=== PATIENT | female | born 1985 | race Caucasian/White ===

== ENCOUNTER 2019-09-01 07:51 | Outpatient (CLI) | payer OTHER, SELFPAY ==
[2019-09-01 13:14] LABS: Hematocrit 39.2 % (37.0-47.0); Hemoglobin 11.8 g/dL (12.0-15.0); Mean Corpuscular HGB Conc 30.1 g/dl (32-36); Mean Corpuscular Hemoglobin 23.9 pg (26-34); Mean Corpuscular Volume 79.5 fl (80-100); Mean Platelet Volume 11.8 fl (7.4-10.4); Platelet Count Result 203 k/mm3 (150-375); Red Blood Count 4.93 M/mm3 (4.2-5.4); Red Cell Distribution Width 14.8 % (11.5-14.5); White Blood Count 6.2 K/mm3 (4.5-10.0)
[2019-09-01 13:19] LABS: Add Urine Microscopic? YES; Appearance Urine Clear (Clear); Bacteria Urine Trace /hpf; Bilirubin Urine Negative (Negative); Blood Urine Negative (Negative); Color Urine Straw (Yellow); Glucose Urine UA 2+ mg/dL (Negative); Ketones Urine Trace mg/dL (Negative); Leukocyte Esterase Ur Negative LEU/UL (NEGATIVE); Nitrate Urine Negative (Negative); Protein Urine Negative (Negative); RBC Urine 0-2 /hpf (0-2); Specific Grav Ur 1.005 (1.001-1.035); Squamous Epithelial Cell Urine Few /hpf (Few); Urobilinogen Urine Negative mg/dL (<2.0); WBC Urine 0-3 /hpf (0-3)
[2019-09-01 13:24] LABS: Iron 30 ug/dL (37-170)
[2019-09-01 13:27] LABS: Alanine Aminotransferase 38 U/L (4-35); Albumin Level 4.2 g/dL (3.5-5.1); Alkaline Phosphatase 128 U/L (38-126); Aspartate Amino Transferase 54 U/L (14-36); Bilirubin,Total 0.4 mg/dL (0.2-1.3); Blood Urea Nitrogen 7 mg/dL (7-17); Calcium 9.5 mg/dL (8.4-10.2); Carbon Dioxide 23 mmol/L (22-30); Chloride 98 mmol/L (98-107); Estimated Glomerular Filt Rate > 60; Glucose 221 mg/dL (65-105); Potassium 3.9 mmol/L (3.4-5.0); Sodium 133 mmol/L (137-145)
[2019-09-01 13:32] LABS: Cholesterol 145 mg/dL (0-200); HDL Direct 70 mg/dL; Triglycerides 88 mg/dL (<150)
[2019-09-01 13:34] LABS: Percent Iron Saturation 6 % (20-50)
[2019-09-01 13:35] LABS: Hemoglobin A1C 10.7 % (<5.7)
[2019-09-01 13:43] LABS: LDL Cholesterol Direct 76 mg/dL
[2019-09-01 13:51] LABS: Microalbumin Urine Random < 6.0 mg/L (0-16.7)
[2019-09-01 14:01] LABS: Ferritin 9.12 ng/mL (6.24-137)
[2019-09-06 07:54] LABS: Glutamic acid decarboxylase AA >250 IU/mL (<5)
[2019-09-07 02:01] LABS: Islet Cell Antibody Screen NEGATIVE (NEGATIVE)
== END 2019-09-01 07:52 | disposition home or self-care (01) ==
LOC: ANHWCLAB 07:53
PROVIDERS: PCP Family Medicine; Visit Provider Internal Medicine Endocrinology, Diabetes & Metabolism
DX: E11.65 Type 2 diabetes mellitus with hyperglycemia (principal); E66.9 Obesity, unspecified; E11.40 Type 2 diabetes mellitus with diabetic neuropathy, unspecified
CPT/HCPCS: 36415; 80053; 80061; 81001; 82043; 82728; 83036; 83540; 83550; 84443; 84681; 85027; 86337; 86341

== ENCOUNTER 2019-09-08 08:20 | Outpatient (CLI) | payer OTHER, SELFPAY ==
[2019-09-08 13:44] LABS: Free T4 Free Thyroxine 0.93 ng/mL (0.78-2.19)
[2019-09-11 03:41] LABS: Thyroid Peroxidase Antibodies 1318 IU/mL (<9)
[2019-09-11 07:06] LABS: Triiodothyronine T3 Free 3.4 pg/mL (2.3-4.2)
== END 2019-09-08 08:21 | disposition home or self-care (01) ==
LOC: ANHWCLAB 08:23
PROVIDERS: PCP Family Medicine; Visit Provider Internal Medicine Endocrinology, Diabetes & Metabolism
DX: E04.9 Nontoxic goiter, unspecified (principal); E03.9 Hypothyroidism, unspecified
CPT/HCPCS: 36415; 84439; 84443; 84481; 86376

== ENCOUNTER 2019-09-20 09:33 | Emergency (ER) | payer OTHER, SELFPAY ==
--- NOTE | ~2019-09-20 | XR_ITS ---
EXAMINATION: XR chest 2V EXAM DATE: 09/20/2019 10:12 INDICATION: Dizziness and hypertension. TECHNIQUE: Frontal and lateral projections of the chest obtained and reviewed. Comparison is made to prior examination from 09/02/2016. FINDINGS: The lungs are clear. There are no pleural effusions. The cardiomediastinal silhouette is within normal limits. There is no pneumothorax suspected. The bones and soft tissues are unremarkab le. IMPRESSION: Normal chest x-ray exam. Reviewed, dictated and finalized at location A. MECHANIC IMPRESSION: Normal chest x-ray exam.
[2019-09-20 09:37] VITALS: BP 166/95; PULSE 82; RESP 18; TEMP 36.6; O2SAT 100
[2019-09-20 09:54] VITALS: BP 158/101; BP 162/104; BP 166/115; PULSE 72; PULSE 83; PULSE 87
--- NOTE | 2019-09-20 09:56 | ECG_ITS ---
Measurements Intervals [place] Rate: 70 P: 34 AL: 161 QRS: 18 QRSD: 94 T: 14 QT: 386 QTc: 417 Interpretive Statements SINUS RHYTHM NORMAL ECG Electronically Signed On 09-20-2019 11:38:36 TAKE UP SUPERVISOR by Josias Mcintosh D.O.
--- NOTE | 2019-09-20 10:12 | ED.DIZZY ---
HPI - Dizziness General Chief Complaint: Dizziness Stated Complaint: not feeling well Time Seen by Provider: 09/20/19 09:45 Source: patient Mode of arrival: ambulatory Limitations: no limitations History of Present Illness HPI Narrative: This is a 34 year old female that presents to the ER for episodes of lightheadedness. Reports since Wednesday she has been having episodes where she feels lightheaded, sweats and has palpitations. Reports she was recently diagnosed with DM and hypothyroidism. Reports she started her Levothyroxine last week. She has not been able to start her medication for DM. Denies fever, cold symptoms, chest pain, shortness of breath, abdominal pain, vomiting, or dysuria. Related Data Allergies Allergy/AdvReac Type Severity Reaction Status Date / Time No Known Allergies Allergy Verified 09/20/19 09:40 Review of Systems Review of Systems: Narrative: CONSTITUTIONAL: Denies fever EYES: Denies visual changes ENT: Denies rhinorrhea, congestion, sore throat, or otalgia. CARDIOVASCULAR: Reports palpitations. Denies chest pain, or edema. RESPIRATORY: Denies cough or dyspnea. GASTROINTESTINAL: Denies abdominal pain, nausea, vomiting GENITOURINARY: Denies dysuria or hematuria. SKIN: Denies rash or itching. NEUROLOGIC: Denies headache, numbness, or weakness. All systems reviewed & are unremarkable except as noted in HPI and below PMFSH Past Medical History Medical History (Updated 09/20/19 @ 12:11 by Tamiko Laurent PA-C) History of diabetes mellitus History of hypothyroidism Social History Social History (Updated 09/20/19 @ 10:18 by Tamiko Laurent PA-C) Smoking status: Never smoker Alcohol intake: current Substance use: never Gender identity (if verbalized by the patient): Female Exam Narrative: Exam Narrative: GENERAL: Well-appearing, well-nourished, and in no acute distress. HEAD: Normocephalic, atraumatic. EYES: PERRLA and EOMI. ENT: Nares clear, no rhinorrhea or epistaxis. Mucous membranes moist. Oropharynx without tonsillar hypertrophy exudate or other lesions. Bilateral TMs pearly alejandro non-bulging NECK: Supple. No adenopathy or masses. No carotid bruits or JVD CHEST: Clear to auscultation. No respiratory distress. No wheezes rales or rhonchi HEART: Regular rate and rhythm. No murmur heard. Normal peripheral pulses. ABDOMEN: Soft, nontender, nondistended, normal active bowel sounds. EXTREMITIES: Normal range of motion. No edema. SKIN: Warm, dry, no rash. NEURO: No focal deficits. Alert and oriented x3. CN II-XII grossly intact PSYCH: Normal mood and affect Course Vital Signs Vital signs: Vital Signs Temperature 97.9 F 09/20/19 09:37 Pulse Rate 82 09/20/19 09:37 Respiratory Rate 18 09/20/19 09:37 Blood Pressure 166/95 H 09/20/19 09:37 Pulse Oximetry 100 09/20/19 09:37 Temperature 97.9 F 09/20/19 09:37 Pulse Rate 79 09/20/19 10:25 Respiratory Rate 18 09/20/19 09:37 Blood Pressure 149/96 H 09/20/19 10:25 Pulse Oximetry 100 09/20/19 09:37 MDM - Dizziness MDM Narrative Medical decision making narrative: Patient presents the emergency department for episodes of lightheadedness, palpitations and sweating. She is afebrile and nontoxic-appearing. Blood pressure is elevated to 140s-160s/90s. Otherwise vitals are normal. CBC without leukocytosis. Does show mild microcytic anemia. Metabolic panel with mild elevation in blood glucose to 128. Hemoglobin A1c is 9.6. Patient was recently diagnosed with diabetes. TSH is normal today. UA is normal. Chest x-ray without acute changes. EKG is normal. Patient reports improvement with IV fluids and meclizine. She was instructed to follow-up with her primary care doctor. She was given warnings to return to the ER Lab Data Attestation: I reviewed the patient's lab results. Result diagrams: 09/20/19 10:10 09/20/19 10:10 Labs: Lab Results 09/20/19 09/20/19 09/20/19 Range/Units
[2019-09-20 10:25] VITALS: BP 143/79; BP 143/98; BP 149/96; PULSE 69; PULSE 73; PULSE 79
[2019-09-20 10:28] VITALS: BP 143/98; PULSE 74; RESP 17; O2SAT 98
[2019-09-20] MEDS: MECLIZINE HCL 25 MG TABLET PO (10:33)
[2019-09-20] MEDS: SODIUM CHLORIDE 0.9% IV 1,000 ML 999 ML IV CONT (10:33)
[2019-09-20 10:44] LABS: Hemoglobin A1C 9.6 % (<5.7)
[2019-09-20 10:45] LABS: Blood Urea Nitrogen 12 mg/dL (7-17); Calcium 9.5 mg/dL (8.4-10.2); Carbon Dioxide 24 mmol/L (22-30); Chloride 102 mmol/L (98-107); Estimated Glomerular Filt Rate > 60; Glucose 128 mg/dL (65-105); Potassium 3.9 mmol/L (3.4-5.0); Sodium 140 mmol/L (137-145)
[2019-09-20 11:28] VITALS: BP 157/105; PULSE 66; RESP 16; O2SAT 98
[2019-09-20 11:57] LABS: Basophils Absolute Auto 0.1 K/mm3 (0.0-0.1); Basophils Percent Auto 0.8 % (0.2-1.2); Eosinophils Absolute Auto 0.2 K/mm3 (0-0.3); Eosinophils Percent Auto 2.3 % (0-4.4); Hematocrit 38.2 % (37.0-47.0); Hemoglobin 11.3 g/dL (12.0-15.0); Immature Granulocyte Absolute 0.03 K/mm3 (0.00-0.031); Immature Granulocyte Percent A 0.5 % (0-0.5); Lymphocytes Absolute Auto 1.24 K/mm3 (0.9-3.2); Lymphocytes Percent Auto 18.6 % (18.3-44.2); Mean Corpuscular HGB Conc 29.6 g/dl (32-36); Mean Corpuscular Hemoglobin 23.6 pg (26-34); Mean Corpuscular Volume 79.7 fl (80-100); Mean Platelet Volume 11.3 fl (7.4-10.4); Monocytes Absolute Auto 0.4 K/mm3 (0.1-0.6); Monocytes Percent Auto 6.5 % (2.6-8.5); Neutrophils Absolute Auto 4.8 K/mm3 (1.3-6.7); Neutrophils Percent Auto 71.3 % (45.5-73.1); Platelet Count Result 246 k/mm3 (150-375); Red Blood Count 4.79 M/mm3 (4.2-5.4); Red Cell Distribution Width 14.6 % (11.5-14.5); White Blood Count 6.7 K/mm3 (4.5-10.0)
[2019-09-20 12:06] LABS: Add Urine Microscopic? NO; Appearance Urine Clear (Clear); Bilirubin Urine Negative (Negative); Blood Urine Negative (Negative); Color Urine Straw (Yellow); Glucose Urine UA Negative (Negative); Ketones Urine Negative (Negative); Leukocyte Esterase Ur Negative LEU/UL (Negative); Nitrate Urine Negative (Negative); Protein Urine Negative (Negative); Specific Grav Ur 1.011 (1.001-1.035); Urobilinogen Urine Negative mg/dL (<2.0)
[2019-09-20 12:30] VITALS: BP 147/89; PULSE 65; RESP 18; O2SAT 100
[2019-09-20 13:57] LABS: Free T4 Free Thyroxine Reflex 0.88 ng/dL (0.78-2.19)
[2019-09-20 15:55] LABS: Total Triiodothyronine (T3) 1.21 NG/ML (0.97-1.69)
--- NOTE | 2019-09-25 11:10 | PC.NURSE ---
LATE ENTRY This note is being entered to document information to the patient's record. The following information was omitted on [Yudy Givens], by [09/25/19 NS stopped at 1130 on 09/20/19].
== END 2019-09-20 12:38 | disposition home or self-care (01) ==
PROVIDERS: Physician Assistant; Emergency Provider Family Medicine; PCP Family Medicine
DX: R42 Dizziness and giddiness (principal); E11.9 Type 2 diabetes mellitus without complications; E03.9 Hypothyroidism, unspecified
CPT/HCPCS: 36415; 71046; 80048; 81003; 83036; 84439; 84443; 84480; 85025; 93005; 96360; 99283; A9270; J7030

== ENCOUNTER 2019-10-12 12:31 | Outpatient (CLI) | payer OTHER, SELFPAY ==
[2019-10-12 13:42] LABS: Free T4 Free Thyroxine 0.94 ng/mL (0.78-2.19)
== END 2019-10-12 12:32 | disposition home or self-care (01) ==
PROVIDERS: PCP Family Medicine; Visit Provider Internal Medicine Endocrinology, Diabetes & Metabolism
DX: E03.8 Other specified hypothyroidism (principal); E06.3 Autoimmune thyroiditis
CPT/HCPCS: 36415; 84439; 84443

== ENCOUNTER 2019-12-21 12:40 | Outpatient (CLI) | payer OTHER, SELFPAY ==
[2019-12-21 15:21] LABS: Free T4 Free Thyroxine 1.13 ng/mL (0.78-2.19)
== END 2019-12-21 12:41 | disposition home or self-care (01) ==
PROVIDERS: PCP Family Medicine; Visit Provider Internal Medicine Endocrinology, Diabetes & Metabolism
DX: E06.3 Autoimmune thyroiditis (principal); E13.9 Other specified diabetes mellitus without complications
CPT/HCPCS: 36415; 84439; 84443

== ENCOUNTER 2020-03-19 07:34 | Outpatient (CLI) | payer OTHER, SELFPAY ==
[2020-03-19 08:57] LABS: Vitamin D 25 Hydroxy 40.9 ng/mL
[2020-03-19 09:03] LABS: Iron 70 ug/dL (37-170)
[2020-03-19 09:14] LABS: Free T4 Free Thyroxine 0.93 ng/mL (0.78-2.19)
[2020-03-19 09:25] LABS: Percent Iron Saturation 16 % (20-50)
[2020-03-22 06:08] LABS: Triiodothyronine T3 Free 2.9 pg/mL (2.3-4.2)
== END 2020-03-19 07:35 | disposition home or self-care (01) ==
LOC: ANHLAB 07:36
PROVIDERS: PCP Family Medicine; Visit Provider Internal Medicine Endocrinology, Diabetes & Metabolism
DX: D64.9 Anemia, unspecified (principal); E03.9 Hypothyroidism, unspecified; E13.9 Other specified diabetes mellitus without complications; R80.9 Proteinuria, unspecified; R53.83 Other fatigue; E04.9 Nontoxic goiter, unspecified
CPT/HCPCS: 36415; 82306; 82728; 83540; 83550; 84439; 84443; 84481

== ENCOUNTER 2020-04-22 02:04 | Outpatient (CLI) | payer OTHER, SELFPAY ==
[2020-04-22 16:34] LABS: SARS-CoV-2 RNA PCR Negative
== END 2020-04-22 02:05 | disposition home or self-care (01) ==
LOC: ANHCOVIDDT 02:04
PROVIDERS: PCP Family Medicine; Visit Provider Obstetrics & Gynecology
DX: Z01.818 Encounter for other preprocedural examination (principal); Z20.828 Contact with and (suspected) exposure to other viral communicable diseases
CPT/HCPCS: 87635; C9803; U0003

== ENCOUNTER 2020-04-24 00:33 | Day surgery (SDC) | payer OTHER, SELFPAY ==
[2020-04-19 09:05] VITALS: BMI 26.9
[2020-04-24] VITALS (8 sets, daily range): BP systolic 118–140; BP diastolic 72–90; PULSE 54–65; RESP 14–20; TEMP 36.3–36.4; O2SAT 99–100
[2020-04-24] MEDS: KETOROLAC 15 MG/ML VIAL (*BKC) IV PUSH (10:13)
[2020-04-24 10:14] LABS: Glucose Point of Care 88 (65-105)
[2020-04-24 10:17] LABS: Hematocrit 44.5 % (37.0-47.0); Hemoglobin 15.4 g/dL (12.0-15.0)
[2020-04-24] MEDS: ACETAMINOPHEN 500 MG TABLET 1000 MG PO (10:20)
[2020-04-24] MEDS: LACTATED RINGERS 1,000 ML 30 ML IV CONT ×2 (10:21→12:23)
--- NOTE | 2020-04-24 10:25 | PM.IMHP ---
H&P: HPI History of Present Illness Date/Time: 04/24/20 10:25 This patient is a 34-year-old female with severe menorrhagia and unwanted fertility. We have agreed to perform laparoscopic tubal ligation and endometrial ablation. I have described the procedure to the patient in detail. I have also discussed risks with her. She understands that injuries may occur during surgery in that these injuries could result in hospitalization, more surgery, and severe illness. She understands risk of hemorrhage and infect Chief complaint: Menorrhagia Narrative: Madeleine Mendoza is a 34 year old female Review of Systems Constitutional: Constitutional: Reports no additional constitutional complaints, Denies fatigue, Denies headache(s), Denies lethargy and Denies weakness Eyes: Eyes: Reports no additional eye complaints, Denies blurry vision and Denies photophobia ENT: Reports as per HPI, Denies headache(s) and Denies neck pain Cardiovascular: Cardiovascular: Denies chest pain, Denies diaphoresis, Denies leg edema, Denies palpitations and Denies dyspnea Respiratory: Respiratory: Denies hemoptysis, Denies dyspnea and Denies wheezing Gastrointestinal: Gastrointestinal: Denies abdominal pain, Denies melena, Denies bloating, Denies hematochezia, Denies nausea and Denies vomiting Genitourinary: Genitourinary: Reports no additional female genitourinary complaints Musculoskeletal: Musculoskeletal: Denies joint swelling, Denies neck pain, Denies numbness and Denies stiffness Neurologic: Denies Abnormal speech present, Denies confusion, Denies headache(s), Denies numbness and Denies weakness Psychiatric: Psychiatric: Denies anxiety, Denies confusion, Denies depression, Denies homicidal ideation and Denies suicidal ideation Endocrine: Endocrine: Denies fatigue and Denies palpitations Allergic/Immunologic: Allergic/Immunologic: Denies wheezing PMFSH Past Medical History Medical History (Updated 04/24/20 @ 10:27 by Lico Campuzano MD) History of diabetes mellitus History of hypothyroidism Social History Social History (Updated 09/20/19 @ 10:18 by Tamiko Laurent PA-C) Years smoked: 12 Smoking status: Current every day smoker Tobacco type: cigarettes Alcohol intake: current Drinks per week: 6 Substance use: never Gender identity (if verbalized by the patient): Female Spiritual care concerns: No Meds Home Medications and Allergies Home Medications Medication Instructions Recorded Confirmed Type ferrous sulfate 325 mg (65 mg 325 mg PO TID #270 tablet 09/01/19 04/19/20 Rx iron) tablet flash glucose sensor #6 each 09/14/19 Rx meclizine 25 mg PO BID PRN #10 tablet 09/20/19 04/19/20 Rx semaglutide 1 mg/dose (2 mg/1.5 1 mg SUB-Q WEEKLY 84 Days #9 ml 01/30/20 04/19/20 Rx mL) subcutaneous pen injector levothyroxine 100 mcg tablet 100 mcg PO DAILY #30 tablet 03/22/20 04/19/20 Rx Allergies Allergy/AdvReac Type Severity Reaction Status Date / Time lactose AdvReac Diarrhea Verified 04/24/20 09:39 Exam Const: General: healthy appearing, comfortable and no acute distress; No confusion Orientation/consciousness: No confusion Eyes: Direct Ophthalmoscopy: No photophobia Resp: Auscultation: clear to auscultation bilaterally, no rales, no rhonchi and no wheezes Cardio: Rate: regular rate Heart sounds: no click, no murmurs and no rubs GI: Inspection: non-distended GI Palp: No abdominal tenderness Auscultation: normal bowel sounds Neuro: General: No confusion Speech: No Abnormal speech present Extrem: General: normal to inspection, no pedal edema and no calf tenderness H&P: Results Labs Labs: Short CBC 04/24/20 Range/Units 09:47 Hgb 15.4 H D (12.0-15.0) g/dL Hct 44.5 (37.0-47.0) % Assessment and Plan Assessment and plan (1) Menorrhagia: Code(s): N92.0 - Excessive and frequent menstruation with regular cycle Status: Acute (2) Encounter for female sterilization
[2020-04-24 10:29] LABS: Anion Gap 7 mmol/L (8-16); Blood Urea Nitrogen 10 mg/dL (7-17); Calcium 9.6 mg/dL (8.4-10.2); Carbon Dioxide 23 mmol/L (22-30); Chloride 108 mmol/L (98-107); Estimated CRCL calculation 93 ml/min; Estimated Glomerular Filt Rate > 60; Glucose 88 mg/dL (65-105); Potassium 3.9 mmol/L (3.4-5.0); Sodium 138 mmol/L (137-145)
--- NOTE | 2020-04-24 10:36 | P.PNAN_ITS ---
Anes - Initial Pre Proc Eval Procedure: Operation Date: 04/24/20 12:30 Proposed Procedures p Laparoscopic Bilateral Tubal Sterilization With Fulguration - Lico Campuzano MD s Endometrial Ablation - Lico Campuzano MD Date/Time: 04/24/20 10:36 Surgeon: Lico Campuzano MD Pre Op Diagnosis: Menorrhagia Patient Data Age: 34 Gender: F Height: 5 ft 4 in Weight: 71.21 kg Allergies Allergy/AdvReac Type Severity Reaction Status Date / Time lactose AdvReac Diarrhea Verified 04/24/20 09:39 Home Medications Medication Instructions Recorded Confirmed Type ferrous sulfate 325 mg (65 mg 325 mg PO TID #270 tablet 09/01/19 04/19/20 Rx iron) tablet flash glucose sensor #6 each 09/14/19 Rx meclizine 25 mg PO BID PRN #10 tablet 09/20/19 04/19/20 Rx semaglutide 1 mg/dose (2 mg/1.5 1 mg SUB-Q WEEKLY 84 Days #9 ml 01/30/20 04/19/20 Rx mL) subcutaneous pen injector levothyroxine 100 mcg tablet 100 mcg PO DAILY #30 tablet 03/22/20 04/19/20 Rx Laboratory Tests 04/24/20 04/24/20 04/24/20 09:47 09:47 10:11 Hgb 15.4 g/dL H D g/dL (12.0-15.0) Hct 44.5 % % (37.0-47.0) Sodium 138 mmol/L mmol/L (137-145) Potassium 3.9 mmol/L mmol/L (3.4-5.0) Chloride 108 mmol/L H mmol/L (98-107) Carbon Dioxide 23 mmol/L mmol/L (22-30) Anion Gap 7 mmol/L L mmol/L (8-16) BUN 10 mg/dL mg/dL (7-17) Creatinine 0.70 mg/dL mg/dL (0.7-1.0) Estim Creat Clear Calc 93 ml/min ml/min Estimated GFR > 60 (59 - ) Glucose 88 mg/dL mg/dL (65-105) POC Capillary Glucose 88 mg/dl mg/dl (65-105) Calcium 9.6 mg/dL mg/dL (8.4-10.2) Patient hx anesthesia problems: none Family hx anesthesia problems: none [facility] Past Medical History Medical History History of diabetes mellitus History of hypothyroidism Social History Social History Years smoked: 12 Smoking status: Current every day smoker Tobacco type: cigarettes Alcohol intake: current Drinks per week: 6 Substance use: never Gender identity (if verbalized by the patient): Female Spiritual care concerns: No Anes - Eval Final PreProcedure Day of Procedure 04/24/20 10:36 Patient weight: overweight Heart: regular rate and rhythm Lungs: clear to auscultation Airway: Mallampati scale class II Neurological: alert and oriented Last oral intake: >/= 8 hours ASA classification: II Emergent: no Anesthetic plan: proceed Anesthesia type and monitoring: general ETT and standard monitoring Informed Consent: The patient's anesthetic plan and its attendant risks and benefits were discussed with the patient/family/POA. Questions were solicited and answers provided to the satisfaction of the patient/family/POA.
--- NOTE | 2020-04-24 11:25 | WPDHPUPDATE1 ---
History and Physical Update Update Date/Time: 04/24/20 11:25 History and Physical has been reviewed, including an updated exam of the patient. There are NO changes in the patient's condition. Risks, benefits, and alternatives have been discussed and questions answered. Patient agrees to proceed with procedure.
--- NOTE | 2020-04-24 11:26 | SUR.PREOP ---
Dr. 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 Noted to be reddened and open to air.
--- NOTE | 2020-04-24 12:19 | SUR.OPER ---
200ml ns in, 200ml ns out. aware
--- NOTE | 2020-04-24 12:27 | PM.PROC ---
Procedure Note - Detailed Date of procedure: 04/24/20 Pre-op diagnosis: Menorrhagia unwanted fertility Post-op diagnosis: same Procedure performed: Laparoscopic bilateral tubal ligation, Endometrial Ablation Description of procedure: Patient was taken the operating room. She has prepped draped in the dorsal lithotomy position after induction of general anesthesia. A 5 mm abdominal incision was made in left upper quadrant of the abdomen with scalpel. A 5 mm trocars inserted the intra-abdominal cavity under direct visualization of the scope. Pneumoperitoneum was achieved. A 5 mm periumbilical incision was made using a scalpel on the abdominal scan. A 5 mm trocar was inserted the intra-abdominal cavity under visualization of the scope. The fallopian tube was grasped with the bipolar cautery in the ampullary region. It was completely desiccated in a 1.5 cm area of the fallopian tube. This was performed in identical fashion on the contralateral side. The instruments were withdrawn. The pneumoperitoneum was reduced. The trocars were removed. The skin was closed with subcuticular 4 Monocryl. This incisions were covered with Dermabond. Our attention was then turned to the endometrial ablation portion of the procedure. A speculum was placed in the vagina. The cervix was grasped with a tenaculum. The cervix was dilated to approximately 8 mm with Calloway dilators. The hysteroscope was inserted. And the below findings were noted. Measurements of the cervix were taken using the uterine sound and the hysteroscope. The intrauterine cavity measurements were entered into the hand piece of the device. The device was inserted the intrauterine cavity. The array was expanded. The balloon cuff was inflated. The uterus was airtight. The energy and safety cycles within initiated. They were completed under 3 minutes. The balloon cuff was collapsed, the array was collapsed, and the device was removed the uterine cavity. the hysteroscope was reinserted and the cavity was well desiccated, it was clearly observed. Hysteroscope was withdrawn. The tenaculum was removed. The speculum was removed. The patient tolerated the procedure well. She was taken to recover room in stable condition. Anesthesia: GETA Surgeon: Lico Campuzano MD Estimated blood loss (mL): 10 Drains: No Packing: No Pathology: none sent Complications: No immediate complications Condition: stable Disposition: PACU Findings: Normal female pelvic anatomy.
[2020-04-24] MEDS: HYDROmorphone HCL INJ (*CRX) 1 MG/ML SYR 0.5 MG IV PUSH (12:47)
[2020-04-24 12:50] LABS: Glucose Point of Care 82 (65-105)
== END 2020-04-24 14:10 | disposition home or self-care (01) ==
PROVIDERS: Anesthesiology; PCP Family Medicine; Visit Provider Obstetrics & Gynecology
PROC: (CPT 58671; principal; 2020-04-24 12:30)
PROC: 0U5B8ZZ Destruction of Endometrium, Via Natural or Artificial Opening Endoscopic (ICD-10-PCS; CPT 58563; 2020-04-24 12:30)
DX: N92.0 Excessive and frequent menstruation with regular cycle (principal); Z30.2 Encounter for sterilization; E03.9 Hypothyroidism, unspecified; E11.9 Type 2 diabetes mellitus without complications; F17.210 Nicotine dependence, cigarettes, uncomplicated
CPT/HCPCS: 58563; 58670; 36415; 80048; 85014; 85018; A9270; J0330; J1100; J1170; J1885; J2250; J2405; J2704; J3010; J7030; J7120

== ENCOUNTER 2020-08-13 12:12 | Outpatient (CLI) | payer OTHER, SELFPAY ==
[2020-08-13 13:13] LABS: Thyroid Stimulating Hormone 0.926 uIU/mL (0.465-4.680)
[2020-08-13 13:50] LABS: Free T4 Free Thyroxine 1.02 ng/mL (0.78-2.19)
== END 2020-08-13 12:13 | disposition home or self-care (01) ==
PROVIDERS: PCP Family Medicine; Visit Provider Internal Medicine Endocrinology, Diabetes & Metabolism
DX: E03.9 Hypothyroidism, unspecified (principal); E13.9 Other specified diabetes mellitus without complications; E53.8 Deficiency of other specified B group vitamins
CPT/HCPCS: 36415; 82607; 84439; 84443

== ENCOUNTER 2020-10-03 13:47 | Outpatient (CLI) | payer OTHER, SELFPAY ==
[2020-10-03 16:33] LABS: Iron 98 ug/dL (37-170)
[2020-10-03 16:43] LABS: Transferrin 327 mg/dL (206-381)
[2020-10-03 16:44] LABS: Percent Iron Saturation 25 % (20-50)
[2020-10-06 07:22] LABS: Triiodothyronine T3 Free 2.9 pg/mL (2.3-4.2)
== END 2020-10-03 13:48 | disposition home or self-care (01) ==
LOC: ANHWCLAB 13:50
PROVIDERS: PCP Family Medicine; Visit Provider Internal Medicine Endocrinology, Diabetes & Metabolism
DX: D64.9 Anemia, unspecified (principal); E03.9 Hypothyroidism, unspecified; E13.9 Other specified diabetes mellitus without complications
CPT/HCPCS: 36415; 82728; 83540; 83550; 84439; 84443; 84466; 84481

== ENCOUNTER 2021-03-13 16:24 | Emergency (ER) | payer SELFPAY ==
--- NOTE | ~2021-03-13 | XR_ITS ---
EXAMINATION: XR foot RT min 3V DATE: 03/13/2021 16:44 INDICATION: Right foot pain, initial encounter TECHNIQUE: Dorsoplantar, lateral, and 2 oblique views of the right foot were obtained. COMPARISON: None. FINDINGS: There is an acute, traumatic mildly comminuted fracture at the distal neck of the second me tatarsal. No definite additional acute osseous abnormality is. There is dorsal soft tissue swelling o f the foot. IMPRESSION: 1. Acute fracture in the distal neck of the second metatarsal. Reviewed, dictated and finalized at location B.
[2021-03-13 16:34] VITALS: BP 130/86; PULSE 96; RESP 20; TEMP 36.7; O2SAT 100
--- NOTE | 2021-03-13 17:23 | ED.LOWEXIN ---
HPI - Extremity Injury (Lower) General Chief Complaint: Extremity Injury, Lower Stated Complaint: Right foot Pain Time Seen by Provider: 03/13/21 17:24 Source: patient and RN notes reviewed Mode of arrival: ambulatory Limitations: no limitations History of Present Illness HPI Narrative: 35 on female presents with concern for right foot pain. Reports 3 days ago she kicked a safe causing foot pain, swelling, bruising. Reports then she has been using crutches. Reports she has been elevating and icing the extremity. She denies resolution. Reports normal sensation, strength in the digits complaint: foot injury Related Data Allergies Allergy/AdvReac Type Severity Reaction Status Date / Time levothyroxine sodium AdvReac Intermediate Rash Verified 07/01/20 08:48 [From Synthroid] lactose AdvReac Diarrhea Verified 04/24/20 09:39 Review of Systems Review of Systems: CONSTITUTIONAL: Denies malaise, chills, sweats, or fever. SKIN: Denies laceration, abrasions MUSCULOSKELETAL: Reports right foot pain and swelling NEUROLOGIC: Denies numbness, weakness All systems reviewed & are unremarkable except as noted in HPI and below PMFSH Past Medical History Medical History (Updated 03/13/21 @ 17:34 by Ledy Tijerina NP) History of diabetes mellitus History of hypothyroidism Social History Social History Years smoked: 12 Smoking status: Current every day smoker Tobacco type: cigarettes Alcohol intake: current Drinks per week: 6 Substance use: never Gender identity (if verbalized by the patient): Female Spiritual care concerns: No Comments At time of signature, agree with nursing past medical, surgical, social and family history. There is no relevant family history pertinent to the presenting complaint Exam Narrative: GENERAL: Well-appearing, well-nourished, and in no acute distress. HEAD: Normocephalic, atraumatic. EYES: PERRLA, conjunctivae clear NECK: Supple. CHEST: Speaks in full sentences. No respiratory distress. HEART: Regular rate and rhythm. Normal and equal peripheral pulses. EXTREMITIES: Right foot and digits of right foot have normal strength and sensation, limited digital range of motion. Moderate dorsal tenderness, edema and ecchymosis. 5/5 strength with ankle and digit flexion and extension. Normal sensation with sensitivity to light touch and pain. No point tenderness. No open wounds, no skin tenting, no devitalized tissue or atrophy, no trophic changes, no obvious deformity, alignment normal, nearby joints and structures intact. Distal pulses palpable and equal bilaterally, skin warm, dry, pink. Capillary refill less than 3 seconds. SKIN: Warm, dry, no rash. NEURO: Alert and oriented x3. PSYCH: Normal mood and affect Course Course Emergency Course: Patient is aware of diagnosis, understands and agrees to treatment plan. Anticipatory guidance given. Patient agrees to follow-up as directed and is aware of reasons to seek care at the emergency department. Portions of this record may have been created with voice recognition software Vital Signs Vital signs: Vital Signs Temperature 98.1 F 03/13/21 16:34 Pulse Rate 96 03/13/21 16:34 Respiratory Rate 20 03/13/21 16:34 Blood Pressure 130/86 03/13/21 16:34 Pulse Oximetry 100 03/13/21 16:34 Temperature 98.1 F 03/13/21 16:34 Pulse Rate 96 03/13/21 16:34 Respiratory Rate 20 03/13/21 16:34 Blood Pressure 130/86 03/13/21 16:34 Pulse Oximetry 100 03/13/21 16:34 Reviewed. MDM - Extremity Injury (Lower) MDM Narrative Medical decision making narrative: Patients injury and pain is consistent with musculoskeletal etiology. No signs of neurological or vascular compromise on exam. Compartments and tissues are soft without signs of compartment syndrome. Pain is felt appropriate for further evaluation on an outpatient basis. Imaging Data My impression: Images carol
== END 2021-03-13 17:35 | disposition home or self-care (01) ==
PROVIDERS: Emergency Provider Nurse Practitioner; PCP Family Medicine
DX: S92.321A Displaced fracture of second metatarsal bone, right foot, initial encounter for closed fracture (principal); W22.8XXA Striking against or struck by other objects, initial encounter; F17.210 Nicotine dependence, cigarettes, uncomplicated; E11.9 Type 2 diabetes mellitus without complications; E03.9 Hypothyroidism, unspecified
CPT/HCPCS: 73630; 99214; G0463

== ENCOUNTER 2021-05-14 12:14 | Emergency (ER) | payer SELFPAY ==
--- NOTE | ~2021-05-14 | XR_ITS ---
EXAMINATION: XR ribs RT 2V EXAM DATE: 05/14/2021 13:11 INDICATION: rt upper lateral rib pain s/p fall last week. TECHNIQUE: Frontal projection of the upper right ribs, frontal projection of the lower right ribs, ob lique projection of the right ribs, without chest x-ray(s) for interpretation. Comparison is made to prior examination from . FINDINGS: There is acute displaced right 4th rib fracture posterolaterally. Acute nondisplaced right 3rd rib fracture. No pneumothorax suspected. IMPRESSION: Acute right 3rd, displaced 4th rib fractures. Reviewed, dictated and finalized at location A.
[2021-05-14 12:37] VITALS: BP 129/99; PULSE 86; RESP 16; TEMP 36.8; O2SAT 100
--- NOTE | 2021-05-14 12:51 | ED.GENADULT ---
HPI - General Adult General Chief complaint: Extremity Injury, Upper Stated complaint: right arm pain Time Seen by Provider: 05/14/21 12:51 Source: patient and RN notes reviewed Mode of arrival: ambulatory Limitations: no limitations History of Present Illness HPI narrative: 35-year-old female presents with concern for right rib pain under the right axillary area. Reports 2 weeks ago she fell hitting that area. Reports she had pain at that time however the pain subsided. Reports pain returned and is sharp in nature. Reports no pain at rest, pain exacerbated with certain movements of her arm or twisting movements. She reports mild tenderness to the area. Reports she has been taking Tylenol ibuprofen. She denies trouble breathing. Reports pain is exacerbated with deep breathing and coughing. MD complaint: Rib pain Related Data Allergies Allergy/AdvReac Type Severity Reaction Status Date / Time levothyroxine sodium AdvReac Intermediate Rash Verified 05/14/21 12:50 [From Synthroid] lactose AdvReac Diarrhea Verified 05/14/21 12:50 Review of Systems Review of Systems: CONSTITUTIONAL: Denies malaise, chills, sweats, or fever. CARDIOVASCULAR: Denies chest pain, palpitations, or edema. RESPIRATORY: Denies cough or dyspnea. SKIN: Denies bruising MUSCULOSKELETAL: Reports right rib pain NEUROLOGIC: Denies numbness, weakness. All systems reviewed & are unremarkable except as noted in HPI and below PMFSH Past Medical History Medical History (Updated 05/14/21 @ 13:29 by Ledy Tijerina NP) History of diabetes mellitus History of hypothyroidism Surgical History Surgical History (Updated 03/18/21 @ 09:09 by Evy Viramontes RT(R)) History of tubal ligation Family History Family History (Updated 03/18/21 @ 09:09 by RT Mary(R)) Other ALS (amyotrophic lateral sclerosis) Diabetes mellitus Hypertension Social History Social History (Updated 03/18/21 @ 09:10 by RT Mary(R)) Smoking packs per day: 0.25 Smoking cigarettes per day: 5.0 Years smoked: 10 Smoking pack-years: 2.50 Smoking status: Current every day smoker Tobacco type: cigarettes Alcohol intake: never Substance use: never Substance use type: does not use Gender identity (if verbalized by the patient): Female Spiritual care concerns: No Comments At time of signature, agree with nursing past medical, surgical, social and family history. There is no relevant family history pertinent to the presenting complaint Exam Narrative: GENERAL: Well-appearing, well-nourished, and in no acute distress. HEAD: Normocephalic, atraumatic. EYES: PERRLA, sclera clear ENT: Mucous membranes moist. NECK: Supple. CHEST: No respiratory distress. Clear to auscultation. No bony deformities, no asymmetry. Speaks in full sentences. HEART: Regular rate and rhythm. EXTREMITIES: Grossly normal range of motion. No edema. SKIN: Warm, dry, no visible rash. No ecchymosis, edema noted to painful area, tenderness to the lateral area of ribs 5-6 NEURO: Alert and oriented x3. PSYCH: Normal mood and affect Course Course Emergency Course: Patient is aware of diagnosis, understands and agrees to treatment plan. Anticipatory guidance given. Patient agrees to follow-up as directed and is aware of reasons to seek care at the emergency department. Portions of this record may have been created with voice recognition software Vital Signs Vital signs: Vital Signs Temperature 98.2 F 05/14/21 12:37 Pulse Rate 86 05/14/21 12:37 Respiratory Rate 16 05/14/21 12:37 Blood Pressure 129/99 H 05/14/21 12:37 Pulse Oximetry 100 05/14/21 12:37 Temperature 98.2 F 05/14/21 12:37 Pulse Rate 86 05/14/21 12:37 Respiratory Rate 16 05/14/21 12:37 Blood Pressure 129/99 H 05/14/21 12:37 Pulse Oximetry 100 05/14/21 12:37 Reviewed. Medical Decision Making MDM Narrative Medical decision making narrative: Joanna
== END 2021-05-14 15:20 | disposition home or self-care (01) ==
PROVIDERS: Emergency Provider Nurse Practitioner; PCP Family Medicine
DX: S22.31XA Fracture of one rib, right side, initial encounter for closed fracture (principal); W19.XXXA Unspecified fall, initial encounter; E11.9 Type 2 diabetes mellitus without complications; E03.9 Hypothyroidism, unspecified; F17.210 Nicotine dependence, cigarettes, uncomplicated
CPT/HCPCS: 71100; 99213; G0463

== ENCOUNTER 2022-05-12 10:04 | Observation (INO) | payer SELFPAY ==
[2022-05-12] VITALS (16 sets, daily range): BP systolic 99–122; BP diastolic 66–83; PULSE 72–100; RESP 13–23; TEMP 36.6–36.7; O2SAT 97–100; BMI 20.2
--- NOTE | ~2022-05-12 | XR_ITS ---
EXAMINATION: XR chest 1V portable INDICATION: Cough and shortness of breath TECHNIQUE: Portable AP chest at 1136 hours COMPARISON: 05/14/2021 FINDINGS: The lungs are free of acute opacities. No pleural effusion or pneumothorax. Healed right-si ded rib fractures are noted. The cardiomediastinal silhouette is normal. IMPRESSION: 1. No acute cardiopulmonary abnormality. Reviewed, dictated and finalized at location A.
--- NOTE | 2022-05-12 10:33 | PC.NURSE ---
blood glucose >600 at 1030
[2022-05-12 10:34] LABS: Glucose Point of Care > 500 mg/dl (65-105)
[2022-05-12 10:49] LABS: Alveolar/Arterial O2 Gradient 9.9 mmHg; Base Excess ABG -3.2 mEq/l (+/-2.0); Carboxyhemoglobin 2.6 % THb (0-2.0); Fractional Inspired Oxygen 21 %; Oxygen Content ABG 18.8 %vol (16.0-22.0); Oxygen Saturation ABG 97.5 % (95.0-100.0); Oxyhemoglobin 94.2 % THb (90.0-100.0); PO2 ABG 97.9 mmHg (80.0-100.0); PO2 FiO2 Ratio Arterial Blood 4.66 %; Reduced Hemoglobin 3.2 %THb (0-5.0); Total Hemoglobin 14.1 g/dL (12.0-18.0); pH ABG 7.395 (7.350-7.450)
[2022-05-12 10:50] LABS: Basophils Percent Auto 0.7 % (0.2-1.2); Eosinophils Absolute Auto 0.1 K/mm3 (0-0.3); Eosinophils Percent Auto 2.4 % (0-4.4); Hematocrit 42.2 % (37.0-47.0); Immature Granulocyte Absolute 0.04 K/mm3 (0.00-0.031); Immature Granulocyte Percent A 0.9 % (0-0.5); Lymphocytes Absolute Auto 1.09 K/mm3 (0.9-3.2); Lymphocytes Percent Auto 25.7 % (18.3-44.2); Mean Corpuscular HGB Conc 35.5 g/dl (32-36); Mean Corpuscular Hemoglobin 32.9 pg (26-34); Mean Corpuscular Volume 92.5 fl (80-100); Mean Platelet Volume 10.3 fl (7.4-10.4); Monocytes Absolute Auto 0.3 K/mm3 (0.1-0.6); Monocytes Percent Auto 6.8 % (2.6-8.5); Neutrophils Absolute Auto 2.7 K/mm3 (1.3-6.7); Neutrophils Percent Auto 63.5 % (45.5-73.1); Platelet Count Result 263 k/mm3 (150-375); Red Blood Count 4.56 M/mm3 (4.2-5.4); Red Cell Distribution Width 11.5 % (11.5-14.5); White Blood Count 4.2 K/mm3 (4.5-10.0)
[2022-05-12 10:51] LABS: Device ROOM AIR; Modified Allen's Test Pass; Site Drawn LEFT RADIAL
--- NOTE | 2022-05-12 10:53 | ED.RECABL ---
HPI - Recheck/Abnormal Lab/Rx General Chief Complaint: Recheck/Abnormal Lab/Rx Stated Complaint: high BS Time Seen by Provider: 05/12/22 10:52 History of Present Illness HPI narrative: Patient is a 36-year-old female with a history of hypothyroidism, diabetes presenting with hyperglycemia. 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 She randomly checked her A1C and was found to be greater than 10 so she was started on Ozempic. Patient states that she was doing well but then she was unable to follow-up with her flame annealing machine operator and has not had any medications since that time. States that she has been losing weight over the last year unintentionally. States she has lost approximately 100 pounds. Patient recently had a bruce glucose monitor placed and states that it read high for the full 2 weeks. Patient states that she has also been without her levothyroxine for the last 2 weeks. States she took a dose last night. Patient states that her fingerstick glucose read high this morning so she came in for further evaluation. She denies headache, fevers, chest pain, shortness of breath, cough, abdominal pain, vomiting, diarrhea, dysuria. Related Data Home Medications Medication Instructions Recorded Confirmed levothyroxine 100 mcg tablet 100 mcg PO HS 05/12/22 05/12/22 Allergies Allergy/AdvReac Type Severity Reaction Status Date / Time lactose AdvReac Diarrhea Verified 05/14/21 12:50 Review of Systems Review of Systems: All systems reviewed & are unremarkable except as noted in HPI and below PMFSH Past Medical History Medical History (Updated 05/15/22 @ 19:25 by Elissa Shrap MD) History of diabetes mellitus History of hypothyroidism Raynauds disease Viramontes syndrome Surgical History Surgical History History of tubal ligation Family History Family History Other ALS (amyotrophic lateral sclerosis) Diabetes mellitus Hypertension Social History Social History (Updated 05/12/22 @ 17:57 by Becca Durham NP) Social History: the patient is and has 2 sons. She smokes about a 1/4 of a pack a cigarettes a day. 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 She denies any alcohol marijuana or illicit drugs. She does not have a durable power production control manager for healthcare. Code status full code. Smoking packs per day: 0.25 Smoking cigarettes per day: 5.0 Years smoked: 10 Smoking pack-years: 2.50 Smoking status: Current every day smoker Tobacco type: cigarettes Second hand tobacco smoke exposure: No Alcohol intake: never Substance use: never Substance use type: does not use Gender identity (if verbalized by the patient): Female Spiritual care concerns: No Exam Narrative: GENERAL: Thin, nontoxic,and in no acute distress. HEAD: Normocephalic, atraumatic. EYES: PERRLA and EOMI. ENT: Nares clear, no rhinorrhea or epistaxis. Mucous membranes dry NECK: Supple. CHEST: Clear to auscultation. No respiratory distress. HEART: Regular rate and rhythm. No murmur heard. Normal peripheral pulses. ABDOMEN: Soft, nontender, nondistended, normal active bowel sounds. EXTREMITIES: Normal range of motion. No edema. SKIN: Warm, dry, no rash. NEURO: No focal deficits. Alert and oriented x3. PSYCH: Normal mood and affect. Course Course Emergency Course: Patient is a 36-year-old female with history as above presenting with hyperglycemia. Vitals are within normal limits. Exam remarkable for the above. Hvoyi-be-luoz glucose is greater than 500. CMP with glucose of 745, elevated anion gap, decreased bicarb -concern for DKA. Patient started on IV fluids and insulin drip. I spoke with the medical records coordinator who recommends a total of 3 L of fluid and admission to the ICU. I spoke with the hospitalist who i
[2022-05-12 11:09] LABS: Alanine Aminotransferase 23 U/L (6-35); Albumin Level 4.6 g/dL (3.5-5.1); Alkaline Phosphatase 124 U/L (38-126); Anion Gap 19 mmol/L (8-16); Aspartate Amino Transferase 45 U/L (14-36); Bilirubin,Total 0.7 mg/dL (0.2-1.3); Blood Urea Nitrogen 21 mg/dL (7-17); Calcium 9.1 mg/dL (8.4-10.2); Carbon Dioxide 21 mmol/L (22-30); Chloride 89 mmol/L (98-107); Estimated CRCL calculation 122 ml/min; Estimated Glomerular Filt Rate > 60; Glucose 745 mg/dL (65-110); Magnesium 1.8 mg/dL (1.6-2.3); Phosphorus 4.1 mg/dL (2.5-4.5); Potassium 4.6 mmol/L (3.4-5.0); Sodium 129 mmol/L (137-145)
[2022-05-12] MEDS: INSULIN HUMAN REGULAR (*BKC) 100 UNITS/ML IV PUSH (11:55)
[2022-05-12] MEDS: INSULIN HUMAN REGULAR (*BKC) 100 UNITS in SODIUM CHLORIDE 0.9% IV 99 ML 13.7 UNITS IV CONT (11:56)
[2022-05-12] MEDS: SODIUM CHLORIDE 0.9% IV 1,000 ML 999 ML IV CONT ×3 (12:03→14:38)
[2022-05-12 12:13] LABS: Anion Gap 19 mmol/L (8-16); Blood Urea Nitrogen 19 mg/dL (7-17); Calcium 8.9 mg/dL (8.4-10.2); Carbon Dioxide 24 mmol/L (22-30); Chloride 88 mmol/L (98-107); Estimated CRCL calculation 122 ml/min; Estimated Glomerular Filt Rate > 60; Glucose 627 mg/dL (65-110); Magnesium 1.8 mg/dL (1.6-2.3); Phosphorus 4.1 mg/dL (2.5-4.5); Potassium 4.2 mmol/L (3.4-5.0); Sodium 131 mmol/L (137-145)
[2022-05-12 13:00] LABS: Glucose Point of Care 396 mg/dl (65-105)
[2022-05-12 13:16] LABS: Hemoglobin A1C > 14.0 % (<5.7)
[2022-05-12 13:19] LABS: Beta-Hydroxybutyrate/Acetoacetate 5.71 mmol/L (0.02-0.27)
[2022-05-12 13:39] LABS: SARS-CoV-2 RNA PCR Negative
[2022-05-12 13:46] LABS: Free T4 Free Thyroxine Reflex 0.92 ng/dL (0.78-2.19)
--- NOTE | 2022-05-12 13:56 | WPDCNINT ---
Assessment and Plan Assessment and plan (1) Diabetic ketoacidosis: Code(s): E11.10 - Type 2 diabetes mellitus with ketoacidosis without coma Status: Acute Assessment and Plan: Patient presented with elevated blood sugars on 05/12/2022. She has been having elevated blood sugars for the last 2-3 months, recently got a Bunny glucose monitoring system which has been reading high last 2 weeks, on the day of admission also it read high so it prompted her to come to the ER -patient has been drinking lot of fluids -patient was found to be in diabetic ketoacidosis with anion gap metabolic acidosis and elevated beta hydroxybutyrate -patient is going to be given 3 L of IV fluid bolus -started on insulin infusion per DKA protocol -hemoglobin A1c this admission is > 14.0 (2) Hypothyroidism (acquired): Code(s): E03.9 - Hypothyroidism, unspecified Status: Acute Assessment and Plan: Patient has not been taking any medication was the last 2 weeks or more because she was out of it and her doctor would not refill. -she had a 1st dose this morning after about 2 weeks according the patient. -TSH level is 14.40, free T4 is 0.92 and total T3 0.74 -patient will be restarted on her levothyroxine 100 mcg/day Plan DVT prophylaxis: Lovenox Stress ulcer prophylaxis: Protonix Nutrition: NPO Code Status: Full Code Critical Care Time Spent: 43 minutes Due to a high probability of clinically significant, life threatening deterioration, the patient required my highest level of preparedness to intervene emergently and I personally spent this critical care time directly and personally managing the patient. This critical care time included obtaining a history; examining the patient; pulse oximetry; ordering and review of studies; arranging urgent treatment with development of a management plan; evaluation of patient's response to treatment; frequent reassessment; and discussions with other providers. It was exclusive of separately billable procedures and treating other patients and teaching time. Please see Assessment and Plan section and the rest of the note for further information on patient assessment and treatment Millinery Salesperson Consult Note Consult date: 05/12/22 Reason for consult: Diabetic ketoacidosis, hypothyroidism HPI: Madeleine Mendoza is a 36 year old female 36-year-old female with history of hypothyroidism, diabetes, Raynaud's phenomenon presented the ED on 05/12/2022 with complains of elevated blood sugars. Upon further questioning patient states that her hemoglobin A1c in August 2021 was 5.2, she was on Ozempic prior to that insert hemoglobin a year and half ago was greater than 10. 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 Once her hemoglobin A1c was 5.2 in August 2021 she stop taking Ozempic. She was lost to follow-up because she left the practice. She has not been on any diabetes medication since August 2021. She has been checking her blood sugars for the last couple of months and has been about 200s to 300s. She recently joined a practice of Dr. Martins, she is supposed to see a diesel inspector for her diabetes in March 2022 but missed her appointment and now it is rescheduled for July 2022. Patient recently got a Bunny glucose monitor and her blood sugars have been reading high for the last 2 weeks. She has also not been taking her levothyroxine for the last 2 weeks because she was out of it and did not refill a prescription. Blood sugars again with high on the machine this morning and she presented the ED for evaluation. Blood sugars in the ER were 745 with an anion gap of 19, elevated beta hydroxybutyrate. Hemoglobin A1c > 14.0. A TSH levels also 14.4. States that she took 1 dose of her levothyroxine this morning after 2 weeks. Patient also states that she has last 100 lb in the last year unintentionally. She does stated that she has been drinking a lot of w
[2022-05-12 14:04] LABS: Glucose Point of Care 326 mg/dl (65-105)
[2022-05-12 14:33] LABS: Total Triiodothyronine (T3) 0.74 NG/ML (0.97-1.69)
--- NOTE | 2022-05-12 14:37 | PC.NURSE ---
This patient, Madeleine Mendoza, was admitted to Intensive Care Unit-10. Patient/family oriented to hospital policies and general routines including ID bracelet, bed and alarms, visiting hours, pain management, procedures, bathroom and other care routines, personal items, smoking policy, room service/diet, and visiting hours. Information on how to activate the Rapid Response Team has been discussed. Patient/Family are encouraged to report perceived risks to care and to ask questions if they do not understand what they are told or what they should do.
[2022-05-12] MEDS: KCL 20 MEQ/D5/0.45% SOD CHL 1,000 ML 150 ML IV CONT (15:04)
[2022-05-12 15:07] LABS: Glucose Point of Care 233 mg/dl (65-105)
[2022-05-12 15:31] LABS: Anion Gap 9 mmol/L (8-16); Blood Urea Nitrogen 17 mg/dL (7-17); Calcium 8.2 mg/dL (8.4-10.2); Carbon Dioxide 26 mmol/L (22-30); Chloride 102 mmol/L (98-107); Estimated CRCL calculation 127 ml/min; Estimated Glomerular Filt Rate > 60; Glucose 235 mg/dL (65-110); Potassium 3.2 mmol/L (3.4-5.0); Sodium 137 mmol/L (137-145)
--- NOTE | 2022-05-12 15:54 | PC.NURSE ---
1554-LEFT MESSAGE FOR STROKE BELT SANDER OPERATOR JESSICA Winslow RN.
[2022-05-12 16:04] LABS: Glucose Point of Care 181 mg/dl (65-105)
[2022-05-12 17:21] LABS: Glucose Point of Care 128 mg/dl (65-105)
--- NOTE | 2022-05-12 17:33 | PM.IMHP ---
H&P: HPI History of Present Illness Date/Time: 05/12/22 17:33 Chief Complaint: High blood sugar Narrative: this is a 36-year-old female patient who has a history of hypothyroidism and diabetes. 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 The patient has not been able to follow-up with tv news director and has not been an any medications since that time. The patient also ran out of hypothyroid medication and did take it for couple weeks. She stated she got the prescription filled last night started taking it. Patient stated she lost approximately 100 lb in the last year. The patient had a burce glucose much monitor that had been placed and has been reading high for the last 2 weeks. She stated would not give her number and just stated that it was high. The patient stated she did not notice any increase in thirst because she always feels thirsty. She did notice any other symptoms. Her sodium was initially 131 and then 137. Potassium was 4.2 now 3.2. Her blood sugar was 627 and is now down to 128. Her TSH is 14.4. T3 0.74. Beta hydroxybutyrate acetoacetate is 5.71. She is negative for COVID. She was given IV fluids, IV insulin and started on an insulin drip. The patient was initially admitted to inpatient status and then changed to observation status on the date of service of 05/12/2022. Review of Systems Review of Systems: See HPI All systems reviewed & are unremarkable except as noted in HPI and below Constitutional: Constitutional: Reports as per HPI and Reports no additional constitutional complaints Eyes: Eyes: Reports as per HPI and Reports no additional eye complaints ENT: Reports system reviewed and no additional complaints, except as documented and Reports Normal hearing present Cardiovascular: Cardiovascular: Reports no additional cardiovascular complaints Respiratory: Respiratory: Reports no additional respiratory complaints and Reports no additional respiratory complaints Gastrointestinal: Gastrointestinal: Reports as per HPI and Reports no additional gastrointestinal complaints Musculoskeletal: Musculoskeletal: Reports no additional musculoskeletal complaints Integumentary/Breasts: Skin/Breast: Reports system reviewed and no additional complaints, except as docu and Reports as per HPI Neurologic: Reports system reviewed and no additional complaints, except as documented, Reports as per HPI and Reports Normal hearing present Psychiatric: Psychiatric: Reports no additional psychiatric complaints and Reports as per HPI Endocrine: Endocrine: Reports no additional endocrine complaints Hematologic/Lymphatic: Hematologic/Lymphatic: Reports no additional hematologic/lymphatic complaints Allergic/Immunologic: Allergic/Immunologic: Reports no additional allergic/immunologic complaints [facility] Past Medical History Medical History (Updated 05/12/22 @ 18:35 by Becca Durham NP) History of diabetes mellitus History of hypothyroidism Raynauds disease Viramontes syndrome Surgical History Surgical History History of tubal ligation Family History Family History Other ALS (amyotrophic lateral sclerosis) Diabetes mellitus Hypertension Social History Social History (Updated 05/12/22 @ 17:57 by Becca Durham NP) Social History: the patient is and has 2 sons. She smokes about a 1/4 of a pack a cigarettes a day. 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 She denies any alcohol marijuana or illicit drugs. She does not have a durable power ip attorney for healthcare. Code status full code. Smoking packs per day: 0.25 Smoking cigarettes per day: 5.0 Years smoked: 10 Smoking pack-years: 2.50 Smoking status: Current every day smoker Tobacco type: cigare
[2022-05-12 18:07] LABS: Glucose Point of Care 126 mg/dl (65-105)
[2022-05-12 18:58] LABS: Glucose Point of Care 130 mg/dl (65-105)
[2022-05-12 19:11] LABS: Anion Gap 7 mmol/L (8-16); Blood Urea Nitrogen 15 mg/dL (7-17); Calcium 7.9 mg/dL (8.4-10.2); Carbon Dioxide 27 mmol/L (22-30); Chloride 101 mmol/L (98-107); Estimated CRCL calculation 127 ml/min; Estimated Glomerular Filt Rate > 60; Glucose 150 mg/dL (65-110); Potassium 3.1 mmol/L (3.4-5.0); Sodium 135 mmol/L (137-145)
[2022-05-12 20:05] LABS: Glucose Point of Care 151 mg/dl (65-105)
[2022-05-12] MEDS: POTASSIUM CHLORIDE 20 MEQ TABLET 40 MEQ PO (20:14)
[2022-05-12] MEDS: INSULIN GLARGINE (*BKC) 100 UNITS/ML 20 UNITS SUB-Q (20:14)
[2022-05-12 21:05] LABS: Glucose Point of Care 112 mg/dl (65-105)
[2022-05-12 22:03] LABS: Add Urine Microscopic? YES; Appearance Urine Clear (Clear); Bilirubin Urine Negative (Negative); Blood Urine Negative (Negative); Color Urine Yellow (Yellow); Glucose Urine UA 3+ mg/dL (Negative); Ketones Urine 2+ mg/dL (Negative); Leukocyte Esterase Ur Negative LEU/UL (Negative); Mucus Urine Rare /lpf; Nitrate Urine Negative (Negative); Protein Urine Negative (Negative); RBC Urine 0-2 /hpf (0-2); Specific Grav Ur 1.029 (1.001-1.035); Squamous Epithelial Cell Urine Occasional /hpf (Few); Urobilinogen Urine Negative mg/dL (<2.0); WBC Urine 0-3 /hpf
[2022-05-12 22:15] LABS: Glucose Point of Care 193 mg/dl (65-105)
[2022-05-13] VITALS: BP 106/78; PULSE 72; PULSE 76; RESP 14; TEMP 36.6; O2SAT 98
[2022-05-13 02:00] VITALS: BP 107/80; PULSE 64; RESP 12; O2SAT 99
[2022-05-13 04:00] VITALS: BP 122/88; PULSE 63; PULSE 66; RESP 11; TEMP 36.6; O2SAT 100
[2022-05-13 04:28] LABS: Basophils Percent Auto 0.8 % (0.2-1.2); Eosinophils Absolute Auto 0.3 K/mm3 (0-0.3); Eosinophils Percent Auto 5.6 % (0-4.4); Hematocrit 38.7 % (37.0-47.0); Hemoglobin 13.6 g/dL (12.0-15.0); Immature Granulocyte Absolute 0.03 K/mm3 (0.00-0.031); Immature Granulocyte Percent A 0.6 % (0-0.5); Lymphocytes Absolute Auto 1.83 K/mm3 (0.9-3.2); Lymphocytes Percent Auto 35.4 % (18.3-44.2); Mean Corpuscular HGB Conc 35.1 g/dl (32-36); Mean Corpuscular Hemoglobin 32.5 pg (26-34); Mean Corpuscular Volume 92.4 fl (80-100); Mean Platelet Volume 9.8 fl (7.4-10.4); Monocytes Absolute Auto 0.4 K/mm3 (0.1-0.6); Monocytes Percent Auto 8.3 % (2.6-8.5); Neutrophils Absolute Auto 2.6 K/mm3 (1.3-6.7); Neutrophils Percent Auto 49.3 % (45.5-73.1); Platelet Count Result 219 k/mm3 (150-375); Red Blood Count 4.19 M/mm3 (4.2-5.4); Red Cell Distribution Width 11.7 % (11.5-14.5); White Blood Count 5.2 K/mm3 (4.5-10.0)
[2022-05-13 04:44] LABS: Alanine Aminotransferase 18 U/L (6-35); Albumin Level 3.2 g/dL (3.5-5.1); Alkaline Phosphatase 73 U/L (38-126); Anion Gap 4 mmol/L (8-16); Aspartate Amino Transferase 33 U/L (14-36); Bilirubin,Total 0.2 mg/dL (0.2-1.3); Blood Urea Nitrogen 12 mg/dL (7-17); Calcium 8.1 mg/dL (8.4-10.2); Carbon Dioxide 27 mmol/L (22-30); Chloride 100 mmol/L (98-107); Estimated CRCL calculation 127 ml/min; Estimated Glomerular Filt Rate > 60; Glucose 223 mg/dL (65-110); Magnesium 1.9 mg/dL (1.6-2.3); Phosphorus 3.4 mg/dL (2.5-4.5); Potassium 3.8 mmol/L (3.4-5.0); Sodium 131 mmol/L (137-145)
[2022-05-13 06:00] VITALS: BP 119/82; PULSE 64; RESP 13; O2SAT 98
[2022-05-13] MEDS: LEVOTHYROXINE SODIUM 100 MCG TABLET PO (06:44)
[2022-05-13 08:00] VITALS: BP 103/73; PULSE 76; RESP 14; TEMP 36.5; O2SAT 100
[2022-05-13 08:36] LABS: Glucose Point of Care 247 mg/dl (65-105)
[2022-05-13] MEDS: ENOXAPARIN 40 MG/0.4 ML SYRINGE SUB-Q (09:52)
[2022-05-13] MEDS: INSULIN ASPART (*BKC) 100 UNITS/ML SUB-Q ×2 (09:52→12:46)
[2022-05-13] MEDS: PANTOPRAZOLE SODIUM IV 40 MG VIAL IV PUSH (09:52)
[2022-05-13 11:40] VITALS: BMI 20.1
[2022-05-13 11:45] VITALS: BMI 20.1
[2022-05-13 12:27] LABS: Glucose Point of Care 440 mg/dl (65-105)
--- NOTE | 2022-05-13 12:31 | WPDINTPN ---
Progress Note: A&P Assessment and Plan (1) Diabetic ketoacidosis: Code(s): E11.10 - Type 2 diabetes mellitus with ketoacidosis without coma Status: Acute Assessment and Plan: Patient presented with elevated blood sugars on 05/12/2022. She has been having elevated blood sugars for the last 2-3 months, recently got a Bunny glucose monitoring system which has been reading high last 2 weeks, on the day of admission also it read high so it prompted her to come to the ER -patient has been drinking lot of fluids -patient was found to be in diabetic ketoacidosis with anion gap metabolic acidosis and elevated beta hydroxybutyrate -received adequate IV fluids -insulin infusion was transition to long-acting insulin Lantus and sliding scale insulin overnight. -continue diabetic diet -hemoglobin A1c this admission is > 14.0 (2) Hypothyroidism (acquired): Code(s): E03.9 - Hypothyroidism, unspecified Status: Acute Assessment and Plan: Patient has not been taking any medication was the last 2 weeks or more because she was out of it and her doctor would not refill. -she had a 1st dose this morning after about 2 weeks according the patient. -TSH level is 14.40, free T4 is 0.92 and total T3 0.74 - continue levothyroxine 100 mcg/day Plan DVT prophylaxis: Lovenox Stress ulcer prophylaxis: Protonix Nutrition: Diabetic diet Code Status: Full Code Critical Care Time Spent: 31 minutes Due to a high probability of clinically significant, life threatening deterioration, the patient required my highest level of preparedness to intervene emergently and I personally spent this critical care time directly and personally managing the patient. This critical care time included obtaining a history; examining the patient; pulse oximetry; ordering and review of studies; arranging urgent treatment with development of a management plan; evaluation of patient's response to treatment; frequent reassessment; and discussions with other providers. It was exclusive of separately billable procedures and treating other patients and teaching time. Please see Assessment and Plan section and the rest of the note for further information on patient assessment and treatment Subjective Date/time seen: 05/13/22 12:31 Interval history: Reason for consult: DKA, hypothyroidism, patient has not been taking diabetic or hypothyroid medications 05/13/2022: Patient seen and examined the ICU this morning, is awake, alert, answers to questions and follows simple commands. Patient was transition to long-acting insulin sliding scale insulin overnight -hemodynamically stable, adequate urine output, afebrile Review of Systems Review of Systems: All systems reviewed & are unremarkable except as noted in HPI and below Exam Narrative: General: Pleasant female no acute distress HEENT:? Pupils equal and reactive, moist oral mucosa Neck:? Supple, no lymphadenopathy Respiratory:? Clear to auscultation bilaterally Cardiac:? Regular rate and rhythm, S1-S2 normal Abdomen:? Soft, nontender, nondistended, normoactive bowel sounds Extremities:? No edema, palpable pedal pulses Neuro:? Patient is awake, alert, oriented x3, answers to questions appropriately and follows simple commands in all extremities Skin:? Warm to touch, no lesions noted Psych:? Normal mentation and affect Objective Data Vital Signs Vital Signs: Vital Signs - 24 hr 05/12/22 13:23 05/12/22 12:45 05/12/22 13:05 Temperature 97.9 F Pulse Rate 82 82 84 Respiratory Rate 17 15 23 H Blood Pressure 118/75 Pulse Oximetry 100 Oxygen Delivery 05/12/22 14:31 05/12/22 14:31 05/12/22 14:31 Temperature Pulse Rate 72 72 72 Respiratory Rate 15 16 Blood Pressure 110/81 Pulse Oximetry 100 100 Oxygen Delivery Room Air 05/12/22 16:00 05/12/22 16:00 05/12/22 16:00 Temperature 97.9 F Pulse Rate 80 80 Respiratory Rate 16 Blood Pressure 110/70 Pulse Oximetry 100 O
--- NOTE | 2022-05-13 12:37 | PM.DS ---
DS: Admitting Diagnosis Discharge Date 05/13/2022 Admitting Diagnosis high blood sugar DS: Discharge Diagnosis Discharge Diagnosis (1) Diabetic ketoacidosis: Code(s): E11.10 - Type 2 diabetes mellitus with ketoacidosis without coma Status: Acute Assessment and Plan: -box gluer has been consulted and has already seen the patient. - the patient does have hand drawer in appointment but not until July. - her A1c today was greater than 14. - the patient is on a insulin drip at this time. - DKA protocol. - she has an elevated B hob. -The patient was given 3 L of IV fluid bolus in the emergency room. (2) Raynauds disease: Code(s): I73.00 - Raynaud's syndrome without gangrene Status: Acute Assessment and Plan: - the patient has redness to her lower extremities. The patient stated that sometimes her hands and feet become blue. - encourage the patient to stop smoking. DS: Summary Hospital Course Reason for hospitalization: ?High blood sugar Narrative: ?this is a 36-year-old female patient who has a history of hypothyroidism and diabetes.? 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 The patient has not been able to follow-up with hand drawer in and has not been an any medications since that time.? The patient also ran out of hypothyroid medication and did take it for couple weeks.? She stated she got the prescription filled last night started taking it.? Patient stated she lost approximately 100 lb in the last year.? The patient had a bruce? glucose much monitor that had been placed and has been reading high for the last 2 weeks.? She stated would not give her number and just stated that it was high.? The patient stated she did not notice any increase in thirst because she always feels thirsty.? She did notice any other symptoms.? Her sodium was initially 131 and then 137.? Potassium was 4.2 now 3.2.? Her blood sugar was 627 and is now down to 128.? Her TSH is 14.4.? T3 0.74.? Beta hydroxybutyrate? acetoacetate is 5.71.? She is negative for COVID.? She was given IV fluids, IV insulin and started on an insulin drip.? The patient was initially admitted to? inpatient status and then changed to observation status on the date of service of 05/12/2022. Hospital Course: left AMA Time Spent with Patient Time attestation: Total time spent providing and/or coordinating discharge services: Exam Narrative: left AMA DS: Data Data Completed and Pending Labs on day of discharge: Labs from last 24 hours 05/13/22 05/13/22 05/13/22 12:18 08:32 04:22 WBC RBC Hgb Hct MCV MCH MCHC RDW Plt Count MPV Immature Gran % (Auto) Neut % (Auto) Lymph % (Auto) [place] % (Auto) Eos % (Auto) Baso % (Auto) Lymph # (Auto) [place] # (Auto) Eos # (Auto) Baso # (Auto) Abs Immat Gran (auto) Absolute Neuts (auto) Absolute Nucleated RBC Nucleated RBC % Sodium 131 L Potassium 3.8 Chloride 100 Carbon Dioxide 27 Anion Gap 4 L BUN 12 Creatinine 0.40 L Estim Creat Clear Calc 127 Estimated GFR > 60 Glucose 223 H POC Capillary Glucose 440 H 247 H Hemoglobin A1c Calcium 8.1 L Phosphorus 3.4 Magnesium 1.9 Total Bilirubin 0.2 AST 33 ALT 18 Alkaline Phosphatase 73 Total Protein 6.0 L Albumin 3.2 L Beta-Hydroxybutyrate/Acetoacetate TSH (Reflex) Free T4 Total T3 Urine Color Urine Appearance Urine pH Ur Specific [place] Urine Protein Urine Glucose (UA) Urine Ketones Ur Blood (Man) Urine Nitrate Urine Bilirubin Urine Urobilinogen Leukocyte Esterase Rfl Urine RBC Urine WBC Ur Squamous Epith Cells Urine Mucus SARS-CoV-2 RNA (RT-PCR) 05/13/22 05/12/22 05/12/22 04:22 22:10 21:49 WBC 5.2 RBC 4
== END 2022-05-13 13:00 | disposition left against medical advice (07) ==
LOC: ANHED 10:52 → ANHICU 14:22
PROVIDERS: Internal Medicine; Admitting Provider Internal Medicine; Emergency Provider Emergency Medicine; PCP Family Medicine; Visit Provider Family Medicine
DX: E11.10 Type 2 diabetes mellitus with ketoacidosis without coma (principal); E11.65 Type 2 diabetes mellitus with hyperglycemia; E03.9 Hypothyroidism, unspecified; I73.00 Raynaud's syndrome without gangrene; Z20.822 Contact with and (suspected) exposure to COVID-19; F17.210 Nicotine dependence, cigarettes, uncomplicated; F12.90 Cannabis use, unspecified, uncomplicated; Z83.3 Family history of diabetes mellitus; Z79.899 Other long term (current) drug therapy
CPT/HCPCS: 36415; 36600; 71045; 80048; 80053; 81001; 82010; 82375; 82805; 82948; 83036; 83050; 83735; 84100; 84439; 84443; 84480; 85025; 96361; 96365; 96366; 96368; 96372; 96374; 99285; A9270; C9113; C9803; G0378; J1650; J1815; J3480; J7030; U0003; U0005

== ENCOUNTER 2022-09-25 04:45 | Inpatient (IN) | payer MEDICAID, SELFPAY ==
[2022-09-25] VITALS (17 sets, daily range): BP systolic 109–175; BP diastolic 81–104; PULSE 82–102; RESP 11–28; TEMP 36.3–37.1; O2SAT 96–100; BMI 21.7
--- NOTE | ~2022-09-25 | CT_ITS ---
CT of the Abdomen and Pelvis: Indication: Abdominal pain Technique: 2.5 mm axial scans were obtained through the abdomen and pelvis following intravenous adm inistration of 100 cc of Omnipaque 350. Dose reduction technique was used on this scan by utilizing a utomated exposure control and iterative reconstruction technique. The dose-length product (DLP) was 2 43.37 mGy-cm. Findings: Scans through the lung bases are unremarkable. The liver, spleen, pancreas, gallbladder, adrenals and kidneys are within normal limits. No evidence of aortic aneurysm. No lymphadenopathy. Stomach is distended, but there is no definite evidence for gastric outlet obstruction. No definite e vidence for bowel obstruction or bowel wall thickening. There is no evidence to suggest acute appendi citis. Images through the pelvis were performed. Urinary bladder is distended, but otherwise unremarkable. N o adnexal mass evident. No ascites. Impression: Distended stomach, but no definite evidence otherwise for gastric outlet obstruction. Correlate clini sanjay. No other significant findings. Reviewed, dictated and finalized at location . 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 Correlate clinically. No other significant findings.
--- NOTE | ~2022-09-25 | XR_ITS ---
Portable chest x-ray Comparison: 05/12/2022 Clinical History: Cough Findings: Possible calcified left upper lobe pulmonary nodule measuring 9 mm in diameter. No other p ulmonary abnormality seen. No pleural effusion or pneumothorax. Cardiomediastinal silhouette is stab le. Chronic fracture deformity of the right posterior fourth rib noted. Impression: Probable calcified left upper lobe pulmonary nodule. No acute abnormality evident. Reviewed, dictated and finalized at location . 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 No acute abnormality evident.
[2022-09-25] MEDS: SODIUM CHLORIDE 0.9% IV 1,000 ML 999 ML IV CONT ×3 (05:47→12:08)
[2022-09-25 06:04] LABS: Basophils Absolute Auto 0.1 K/mm3 (0.0-0.1); Basophils Percent Auto 0.8 % (0.2-1.2); Eosinophils Absolute Auto 0.6 K/mm3 (0-0.3); Eosinophils Percent Auto 7.7 % (0-4.4); Hematocrit 48.7 % (37.0-47.0); Hemoglobin 16.6 g/dL (12.0-15.0); Immature Granulocyte Absolute 0.07 K/mm3 (0.00-0.031); Immature Granulocyte Percent A 0.9 % (0-0.5); Lymphocytes Absolute Auto 1.66 K/mm3 (0.9-3.2); Mean Corpuscular HGB Conc 34.1 g/dl (32-36); Mean Corpuscular Hemoglobin 29.2 pg (26-34); Mean Corpuscular Volume 85.6 fl (80-100); Mean Platelet Volume 10.4 fl (7.4-10.4); Monocytes Absolute Auto 0.7 K/mm3 (0.1-0.6); Monocytes Percent Auto 8.6 % (2.6-8.5); Neutrophils Absolute Auto 4.5 K/mm3 (1.3-6.7); Platelet Count Result 291 k/mm3 (150-375); Red Blood Count 5.69 M/mm3 (4.2-5.4); Red Cell Distribution Width 13.2 % (11.5-14.5); White Blood Count 7.6 K/mm3 (4.5-10.0)
[2022-09-25 06:26] LABS: Alanine Aminotransferase 17 U/L (6-35); Albumin Level 4.7 g/dL (3.5-5.1); Alkaline Phosphatase 149 U/L (38-126); Anion Gap 21 mmol/L (8-16); Aspartate Amino Transferase 26 U/L (14-36); Bilirubin,Total 0.5 mg/dL (0.2-1.3); Blood Urea Nitrogen 10 mg/dL (7-17); Calcium 8.1 mg/dL (8.4-10.2); Carbon Dioxide 7 mmol/L (22-30); Chloride 106 mmol/L (98-107); Estimated CRCL calculation 104 ml/min; Estimated Glomerular Filt Rate > 60; Glucose 283 mg/dL (65-110); Lipase 82 U/L (23-300); Sodium 134 mmol/L (137-145)
--- NOTE | 2022-09-25 06:43 | ED.GENADULT ---
HPI - General Adult General Chief complaint: Weakness <Bob Tripp DO - Last Filed: 09/25/22 17:24> Stated complaint: back pain <Bob Tripp DO - Last Filed: 09/25/22 17:24> Time Seen by Provider: 09/25/22 05:35 <Bob Tripp DO - Last Filed: 09/25/22 17:24> Source: RN notes reviewed <Bob Tripp DO - Last Filed: 09/25/22 17:24> History of Present Illness HPI narrative: Patient presents emergency room from home for weakness. Patient states that she tested positive for COVID 2 days ago. States that since that time she has been feeling generally fatigued and weak and does not have much of an appetite. States she has been having intermittent nausea and vomiting with this as well. Patient states that she is also been having pain in the right lower back that goes around to her right side of her abdomen she states that she has not had any fevers or chills she denies any chest pain or shortness of breath. Patient states she has not taken any pain medication today <Bob Tripp DO - Last Filed: 09/25/22 17:24> Related Data Home medications: Home Medications Medication Instructions Recorded Confirmed levothyroxine 100 mcg tablet 100 mcg PO HS 05/12/22 09/25/22 <Bob Tripp DO - Last Filed: 09/25/22 17:24> Allergies/adverse reactions: Allergies Allergy/AdvReac Type Severity Reaction Status Date / Time lactose AdvReac Diarrhea Verified 07/06/22 14:37 <Bob Tripp DO - Last Filed: 09/25/22 17:24> Review of Systems Review of Systems: Gen.: Denies fevers or chills reports COVID-19 Eyes: Denies eye pain or visual change ENT: Denies congestion Respiratory: Denies shortness of breath or cough CV: Denies chest pain or palpitations GI: Reports right-sided abdominal pain nausea and vomiting denies diarrhea Musculoskeletal: Right flank pain Neuro: Denies numbness, tingling, weakness or focal weakness Skin: Denies rash Except as documented, all other systems reviewed and negative <Bob Tripp DO - Last Filed: 09/25/22 17:24> [facility] Past Medical History Medical History: Medical History (Updated 09/25/22 @ 13:18 by Marleny Barry PA-C) Anemia, unspecified Hypothyroidism Latent autoimmune diabetes in adults, managed as type 1 (2020) Raynauds disease <Bob Tripp DO - Last Filed: 09/25/22 17:24> Surgical History Surgical History: Surgical History History of tubal ligation <Bob Tripp DO - Last Filed: 09/25/22 17:24> Family History Family History: Family History Grandparent ALS (amyotrophic lateral sclerosis) Sibling Diabetes mellitus Father Hypertension Cerebrovascular accident Acute myocardial infarction <Bob Tripp DO - Last Filed: 09/25/22 17:24> Social History Social History: Social History (Updated 09/25/22 @ 13:16 by Marleny Barry PA-C) Smoking packs per day: 0.5 Smoking cigarettes per day: 10.0 Years smoked: 10 Smoking pack-years: 5.00 Smoking status: Current every day smoker Tobacco type: cigarettes Second hand tobacco smoke exposure: No Alcohol intake: current Substance use: never Substance use type: does not use Lack of Transportation: No Lack of Food: Never True Current Housing: Decline to Answer Concerned About Future Housing: Decline to Answer Difficulty Paying Gas/Electric Bills: Decline to Answer Difficulty Paying for Meds: Decline to Answer Currently Unemployed: Decline to Answer Education: Decline to Answer Difficulty w/ Childcare or Family Care: Decline to Answer Additional living arrangements comments: . Has 2 sons. 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. Spiritual care concerns: No <Bob Tripp DO - Last Filed: 09/25/22 17:24
[2022-09-25 07:02] LABS: Magnesium 1.6 mg/dL (1.6-2.3)
[2022-09-25 07:15] LABS: Alveolar/Arterial O2 Gradient 6.4 mmHg; Carboxyhemoglobin 0.7 % THb (0-2.0); Fractional Inspired Oxygen 21 %; HCO3 ABG 5.9 mEq/l (22.0-26.0); Oxygen Content ABG 20.1 %vol (16.0-22.0); Oxygen Saturation ABG 97.4 % (95.0-100.0); Oxyhemoglobin 96.3 % THb (90.0-100.0); PO2 ABG 121.9 mmHg (80.0-100.0); Total Hemoglobin 14.7 g/dL (12.0-18.0)
[2022-09-25 07:21] LABS: PCO2 ABG 17.9 mmHg (35.0-45.0); Site Drawn RIGHT RADIAL; pH ABG 7.138 (7.350-7.450)
[2022-09-25 07:22] LABS: Modified Allen's Test Pass
[2022-09-25 07:52] LABS: Beta-Hydroxybutyrate/Acetoacetate 7.79 mmol/L (0.02-0.27)
[2022-09-25 07:53] LABS: Influenza A QL RT-PCR Negative (Negative); Influenza B QL RT-PCR Negative (Negative); SARS-CoV-2 RNA PCR Positive
[2022-09-25 07:59] LABS: Appearance Urine Clear (Clear); Bilirubin Urine Negative (Negative); Blood Urine Trace-intact (Negative); Color Urine Yellow (Yellow); Glucose Urine UA 2+ mg/dL (Negative); Ketones Urine 4+ mg/dL (Negative); Leukocyte Esterase Ur Negative LEU/UL (Negative); Nitrate Urine Negative (Negative); Protein Urine 2+ mg/dL (Negative); Urobilinogen Urine 0.2 mg/dL (<2.0)
[2022-09-25 08:03] LABS: Bacteria Urine Trace /hpf; Mucus Urine Rare /lpf; Squamous Epithelial Cell Urine Many /hpf (Few)
[2022-09-25 08:09] LABS: Add Urine Microscopic? YES
[2022-09-25] MEDS: INSULIN HUMAN REGULAR (*BKC) 100 UNITS in SODIUM CHLORIDE 0.9% IV 99 ML IV CONT (08:15)
[2022-09-25 08:20] LABS: Glucose Point of Care 237 mg/dl (65-105)
[2022-09-25 09:40] LABS: Glucose Point of Care 214 mg/dl (65-105)
[2022-09-25 10:21] LABS: Pregnancy On Board Control Positive; Urine Pregnancy Test Negative
[2022-09-25 10:39] LABS: Glucose Point of Care 182 mg/dl (65-105)
[2022-09-25 11:45] LABS: Glucose Point of Care 186 mg/dl (65-105)
--- NOTE | 2022-09-25 11:52 | ADMGEN ---
This patient, Madeleine Mendoza, was admitted to Intensive Care Unit-12. Patient/family oriented to hospital policies and general routines including ID bracelet, bed and alarms, visiting hours, pain management, procedures, bathroom and other care routines, personal items, smoking policy, room service/diet, and visiting hours. Information on how to activate the Rapid Response Team has been discussed. Patient/Family are encouraged to report perceived risks to care and to ask questions if they do not understand what they are told or what they should do.
[2022-09-25] MEDS: KCL 20 MEQ/D5/0.45% SOD CHL 1,000 ML 150 ML IV CONT ×2 (12:08→18:59)
--- NOTE | 2022-09-25 12:16 | PCDIET ---
Physician consult for DKA. Patient is COVID positive. Diet order: NPO. Recommend advancing diet as tolerated per MD orders to Diabetic Consistent Carb. Following.
--- NOTE | 2022-09-25 12:32 | WPDCNINT ---
Assessment and Plan Assessment and plan (1) DKA (diabetic ketoacidosis): Code(s): E11.10 - Type 2 diabetes mellitus with ketoacidosis without coma Status: Acute Assessment and Plan: Patient presented with generalized weakness, elevated blood sugars, anion gap metabolic acidosis and elevated beta hydroxybutyrate, symptoms have been going on for 2-3 days, decreased p.o. intake, has not been taking her medications for the last 2 days -was diagnosed with DKA in the ER -given 2 L IV fluids and started on insulin infusion per DKA protocol -in the ICU she received an additional 1 L IV fluids -NPO for now except ice chips -will transition to long-acting insulin and sliding scale insulin once anion gap closes -she takes Lantus 20 units subQ at night at home -Hemoglobin A1c this admission is pending (last hemoglobin A1c on 05/12/2022 was > 14.0) (2) Hypothyroidism: Code(s): E03.9 - Hypothyroidism, unspecified Status: Acute Assessment and Plan: Will continue levothyroxine which is her home medication Plan DVT prophylaxis: SQ Lovenox Stress ulcer prophylaxis: Not indicated Nutrition: NPO except ice chips for now Code Status: Full code Critical Care Time Spent: 46 minutes Due to a high probability of clinically significant, life threatening deterioration, the patient required my highest level of preparedness to intervene emergently and I personally spent this critical care time directly and personally managing the patient. This critical care time included obtaining a history; examining the patient; pulse oximetry; ordering and review of studies; arranging urgent treatment with development of a management plan; evaluation of patient's response to treatment; frequent reassessment; and discussions with other providers. It was exclusive of separately billable procedures and treating other patients and teaching time. Please see Assessment and Plan section and the rest of the note for further information on patient assessment and treatment This dictation may have been done utilizing a voice recognition system. Attempts have been made to correct errors. However, there may be uncorrected grammatical, spelling, and recognitions errors present. [facility] Consult Note Consult date: 09/25/22 HPI: Madeleine Mendoza is a 37 year old female with history of hypothyroidism, diabetes, Raynaud's phenomenon presented the ED on 09/25/2022 with complains generalized weakness, nausea, vomiting, decreased appetite. She denies any fevers, chills, chest pain or shortness of breath, but complained of having a right lower back pain that was radiating to the right side of the abdomen. She did not take any medication for the last 2 days since her symptoms started. She was also tested positive for COVID 2 days prior to admission. In the ED patient was diagnosed with diabetic ketoacidosis with elevated blood sugars, anion gap metabolic acidosis, elevated beta hydroxybutyrate, UA showed positive ketones and glucose. Blood sugars were elevated to 283, CO2 of 7, anion gap of 21, potassium was 4.0. Initial ABG showed a pH of 7.13, pCO2 of 17, PO2 of 121, HC03 of 5.9, 97% O2 sats on room air. Patient received 2 L of IV fluids in the ER and started on insulin infusion per DKA protocol. -in the ER patient was negative for influenza A and B. Positive for SARS-CoV-2 PCR -CT scan of the abdomen and pelvis showed distended stomach with no definitive evidence for gastric outlet obstruction no other significant findings Patient seen examined the ICU been arrival, is awake, alert, oriented, nonfocal. States she is hungry and thirsty. Hemodynamically stable, on room air with adequate O2 sats. Denies any nausea, vomiting abdominal pain at this time. No fevers or chills Review of Systems Review of Systems: All systems reviewed & are unremarkable except as noted in HPI and below PMFSH Past Medical History Medical History (Reviewed 09/25/22 @ 06:44 by Amol
[2022-09-25 13:05] LABS: Glucose Point of Care 171 mg/dl (65-105)
--- NOTE | 2022-09-25 13:40 | PM.IMHP ---
H&P: HPI History of Present Illness Date/Time: 09/25/22 13:40 Chief Complaint: Weakness, COVID positive. Narrative: This is a 37-year-old female with insulin-dependent diabetes and hypothyroidism who presented to the emergency department from home for evaluation of weakness. Patient provides the following history. She tested positive for COVID 2 days ago and since that time she has been feeling increasingly fatigued and weak. She has essentially no appetite with intermittent nausea and several episodes of emesis this morning. She has also had generalized aches. She was afebrile on arrival to the emergency department. Pertinent labs include a WBC of 7.6, hemoglobin 16.6, sodium 134, potassium 4.0, carbon dioxide 7, anion gap 21, creatinine 0.50, glucose 283, beta hydroxybutyrate 7.79. ABG showed a pH of 7.13, pCO2 17.9, and bicarb 5.9. She tested positive for SARS-CoV-2 by PCR. Chest x-ray shows probably calcified left upper lobe pulmonary nodule. CT of the abdomen and pelvis showed a distended stomach with no other significant findings. She is currently on an insulin drip and is in the ICU. Her only complaint at this time is that of hunger. Review of Systems Review of Systems: 12 systems were reviewed. She has lost 92 lb since 2019. Mild headache and sore throat. No chest pain or shortness of breath. No significant cough. No dysuria or diarrhea. Except as documented, all other systems were reviewed and are negative. [facility] Past Medical History Medical History (Updated 09/25/22 @ 13:18 by Marleny Barry PA-C) Anemia, unspecified Hypothyroidism Latent autoimmune diabetes in adults, managed as type 1 (2020) Raynauds disease Surgical History Surgical History History of tubal ligation Family History Family History Grandparent ALS (amyotrophic lateral sclerosis) Sibling Diabetes mellitus Father Hypertension Cerebrovascular accident Acute myocardial infarction Social History Social History (Updated 09/25/22 @ 13:16 by Marleny Barry PA-C) Smoking packs per day: 0.5 Smoking cigarettes per day: 10.0 Years smoked: 10 Smoking pack-years: 5.00 Smoking status: Current every day smoker Tobacco type: cigarettes Second hand tobacco smoke exposure: No Alcohol intake: current Substance use: never Substance use type: does not use Lack of Transportation: No Lack of Food: Never True Current Housing: Decline to Answer Concerned About Future Housing: Decline to Answer Difficulty Paying Gas/Electric Bills: Decline to Answer Difficulty Paying for Meds: Decline to Answer Currently Unemployed: Decline to Answer Education: Decline to Answer Difficulty w/ Childcare or Family Care: Decline to Answer Additional living arrangements comments: . Has 2 sons. 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. Spiritual care concerns: No Meds Home Medications and Allergies Home Medications Medication Instructions Recorded Confirmed Type levothyroxine 100 mcg tablet 100 mcg PO DAILY 05/12/22 09/25/22 History insulin aspart U-100 100 unit/mL 0.1 unit subcut TIDWM #10 mL 05/13/22 09/25/22 Rx subcutaneous solution (Novolog U-100 Insulin aspart) insulin glargine 100 unit/mL 20 unit (0.2 mL) subcut HS #10 mL 05/13/22 09/25/22 Rx subcutaneous solution (Lantus U-100 Insulin) Allergies Allergy/AdvReac Type Severity Reaction Status Date / Time lactose AdvReac Diarrhea Verified 07/06/22 14:37 Vital Signs Vital Signs - 24 hr 09/25/22 04:50 09/25/22 06:45 09/25/22 08:58 Temperature 98.7 F Pulse Rate 88 82 84 Respiratory Rate 19 16 13 Blood Pressure 151/104 H 175/97 H 163/99 H Pulse Oximetry 100 100 99 09/25/22 09:01 09/25/22 09:31 09/25/22 09:45 Temperature Pulse Rate 87 91 89 Respiratory Rate 14 14
[2022-09-25 13:55] LABS: Anion Gap 11 mmol/L (8-16); Blood Urea Nitrogen 8 mg/dL (7-17); Calcium 7.3 mg/dL (8.4-10.2); Carbon Dioxide 10 mmol/L (22-30); Chloride 111 mmol/L (98-107); Estimated CRCL calculation 127 ml/min; Estimated Glomerular Filt Rate > 60; Glucose 163 mg/dL (65-110); Potassium 3.2 mmol/L (3.4-5.0); Sodium 132 mmol/L (137-145)
[2022-09-25] MEDS: INSULIN HUMAN REGULAR (*BKC) 100 UNITS in SODIUM CHLORIDE 0.9% IV 99 ML 5.6 UNITS IV CONT (14:05)
[2022-09-25 14:18] LABS: Glucose Point of Care 177 mg/dl (65-105)
[2022-09-25] MEDS: POTASSIUM CHLORIDE 20 MEQ TABLET 40 MEQ PO ×2 (14:27→21:04)
[2022-09-25 15:03] LABS: Glucose Point of Care 167 mg/dl (65-105)
[2022-09-25 16:11] LABS: Glucose Point of Care 180 mg/dl (65-105)
[2022-09-25 16:42] LABS: Anion Gap 6 mmol/L (8-16); Blood Urea Nitrogen 9 mg/dL (7-17); Carbon Dioxide 14 mmol/L (22-30); Chloride 110 mmol/L (98-107); Estimated CRCL calculation 162 ml/min; Estimated Glomerular Filt Rate > 60; Glucose 187 mg/dL (65-110); Potassium 3.3 mmol/L (3.4-5.0); Sodium 130 mmol/L (137-145)
--- NOTE | 2022-09-25 16:51 | PC.NURSE ---
Addendum entered by Makayla Arnold RN 09/25/22 16:55: Call [address] Ramirez Original Note: Notified Dr. Ramirez of patient's BMP results. CO2 of 14 and Anion Gap of 6, insulin gtt at 6 units/hr. New order to continue insulin gtt and give another 500 ml bolus of NS
[2022-09-25] MEDS: SODIUM CHLORIDE 0.9% IV 500 ML 999 ML IV CONT (17:05)
[2022-09-25 18:04] LABS: Glucose Point of Care 150 mg/dl (65-105)
[2022-09-25 18:04] LABS: Glucose Point of Care 183 mg/dl (65-105)
[2022-09-25 19:03] LABS: Glucose Point of Care 156 mg/dl (65-105)
[2022-09-25 19:59] LABS: Anion Gap 3 mmol/L (8-16); Blood Urea Nitrogen 9 mg/dL (7-17); Calcium 7.3 mg/dL (8.4-10.2); Carbon Dioxide 16 mmol/L (22-30); Chloride 112 mmol/L (98-107); Estimated CRCL calculation 162 ml/min; Estimated Glomerular Filt Rate > 60; Glucose 152 mg/dL (65-110); Potassium 3.3 mmol/L (3.4-5.0); Sodium 131 mmol/L (137-145)
[2022-09-25 20:26] LABS: Glucose Point of Care 142 mg/dl (65-105)
[2022-09-25] MEDS: MAGNESIUM SULF 2 GM/WATER 50ML 2 GM/50 ML BAG IVPB (21:04)
[2022-09-25] MEDS: INSULIN GLARGINE (*BKC) 100 UNITS/ML 20 UNITS SUB-Q (21:04)
[2022-09-25 21:35] LABS: Glucose Point of Care 127 mg/dl (65-105)
[2022-09-25 22:25] LABS: Glucose Point of Care 146 mg/dl (65-105)
[2022-09-25 22:49] LABS: Free T4 Free Thyroxine Reflex 0.89 ng/dL (0.78-2.19)
[2022-09-25 23:33] LABS: Total Triiodothyronine (T3) 0.44 NG/ML (0.97-1.69)
[2022-09-26] VITALS (7 sets, daily range): BP systolic 101–126; BP diastolic 68–92; PULSE 71–90; RESP 12–16; TEMP 36.7–36.9; O2SAT 98–100
[2022-09-26 03:36] LABS: Hematocrit 41.5 % (37.0-47.0); Hemoglobin 14.4 g/dL (12.0-15.0); Mean Corpuscular HGB Conc 34.7 g/dl (32-36); Mean Corpuscular Volume 83.7 fl (80-100); Mean Platelet Volume 10.1 fl (7.4-10.4); Platelet Count Result 225 k/mm3 (150-375); Red Blood Count 4.96 M/mm3 (4.2-5.4); Red Cell Distribution Width 13.7 % (11.5-14.5); White Blood Count 5.3 K/mm3 (4.5-10.0)
[2022-09-26 03:58] LABS: Anion Gap 5 mmol/L (8-16); Blood Urea Nitrogen 9 mg/dL (7-17); Calcium 7.2 mg/dL (8.4-10.2); Carbon Dioxide 18 mmol/L (22-30); Chloride 111 mmol/L (98-107); Estimated CRCL calculation 127 ml/min; Estimated Glomerular Filt Rate > 60; Glucose 241 mg/dL (65-110); Magnesium 2.1 mg/dL (1.6-2.3); Potassium 3.8 mmol/L (3.4-5.0); Sodium 134 mmol/L (137-145)
[2022-09-26] MEDS: LEVOTHYROXINE SODIUM 100 MCG TABLET PO (05:49)
[2022-09-26] MEDS: INSULIN ASPART (*BKC) 100 UNITS/ML SUB-Q (08:38)
[2022-09-26] MEDS: INSULIN GLARGINE (*BKC) 100 UNITS/ML 10 UNITS SUB-Q (08:38)
[2022-09-26 08:50] LABS: Glucose Point of Care 357 mg/dl (65-105)
--- NOTE | 2022-09-26 09:39 | PM.DS ---
DS: Admitting Diagnosis Discharge Date 09/26/22 Admitting Diagnosis DKA DS: Discharge Diagnosis Discharge Diagnosis (1) Diabetic ketoacidosis: Code(s): E11.10 - Type 2 diabetes mellitus with ketoacidosis without coma Status: Acute (2) COVID-19: Code(s): U07.1 - COVID-19 Status: Acute (3) Dehydration: Code(s): E86.0 - Dehydration Status: Acute (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, managed as type 1: Onset Date: 2019 Code(s): E13.9 - Other specified diabetes mellitus without complications Status: Acute (5) Hypothyroidism: Code(s): E03.9 - Hypothyroidism, unspecified Status: Acute Plan The patient presented to the emergency department today for evaluation of weakness after testing positive for COVID 2 days ago. Labs, imaging, and all reports were personally reviewed. Workup in the ED was consistent with DKA (pH 7.318, ABG bicarb 5.9, anion gap 21, glucose 283, beta hydroxybutyrate 7.79). She has been admitted to the ICU and has been started on insulin drip per DKA protocol. Monitor Accu-Cheks Q hour and BMP q.4 hours on insulin drip. Continue aggressive IV fluid rehydration as she is quite dry. Resume basal insulin upon resolution of DKA. Her diabetes has been poorly controlled and she reports that her A1c was greater than 16% a couple of months ago. She is followed by Dr. Kam as an outpatient. Supportive care with regards to COVID; she has no oxygen requirement and chest x-ray shows no evidence of pneumonia. Continue levothyroxine and check TSH. DS: Summary Hospital Course Hospital Course: 37-year-old female with past medical history significant for hypothyroidism, diabetes, Raynaud's presenting with generalized weakness and malaise found to be in DKA. She was admitted to the ICU and started on DKA protocol with an insulin drip. She started to improve and decided to leave AMA. Risks of bleeding were discussed extensively with the patient who was competent and understood the risks. She chose to leave AMA. Forms signed. Time Spent with Patient Time attestation: Total time spent providing and/or coordinating discharge services: Exam Narrative: General: Moderately ill-appearing female supine in bed. Weight: 55.8 kg. BMI: 21.8. HEENT: PERRL, EOMI. Sclera anicteric. Dry mouth. Neck: Supple. Respiratory: Lungs are clear to auscultation bilaterally. Cardiovascular: Regular rate and rhythm with S1-S2. Gastrointestinal: Abdomen is soft, nontender, and nondistended with positive bowel sounds. Skin: Warm and dry. Hands are red and extremely dry with some fissures. Extremities: No cyanosis, clubbing, or edema. Radial and pedal pulses intact. Neurological: Alert. Cranial nerves 2-12 are grossly intact. No gross focal deficits to casual conversation. Psychiatric: Cooperative. Flat mood. Poor eye contact. Brevity of speech. DS: Data Data Completed and Pending Labs on day of discharge: Labs from last 24 hours 09/26/22 09/26/22 09/26/22 08:37 03:13 03:13 WBC 5.3 RBC 4.96 Hgb 14.4 Hct 41.5 MCV 83.7 MCH 29.0 MCHC 34.7 RDW 13.7 Plt Count 225 MPV 10.1 Sodium 134 L Potassium 3.8 Chloride 111 H Carbon Dioxide 18 L Anion Gap 5 L BUN 9 Creatinine 0.40 L Estim Creat Clear Calc 127 Estimated GFR > 60 Glucose 241 H POC Capillary Glucose 357 H Hemoglobin A1c Calcium 7.2 L Magnesium 2.1 TSH (Reflex) Free T4 Total T3 Urine Test 09/25/22 09/25/22 09/25/22 22:13 21:01 19:52 WBC RBC Hgb Hct MCV MCH MCHC RDW Plt Count MPV Sodium Potassium Chloride Carbon Dioxide Anion Gap BUN Creatinine Estim Creat Clear Calc Estimated GFR Glucose POC Capillary Glucose 146 H 127 H 142 H Hemoglobin A1c Calcium Magnesium TSH (Reflex) Free T4 Total T3 Urine P[place]
--- NOTE | 2022-09-26 09:41 | WPDINTPN ---
Progress Note: A&P Assessment and Plan (1) DKA (diabetic ketoacidosis): Code(s): E11.10 - Type 2 diabetes mellitus with ketoacidosis without coma Status: Acute Assessment and Plan: Patient presented with generalized weakness, elevated blood sugars, anion gap metabolic acidosis and elevated beta hydroxybutyrate, symptoms have been going on for 2-3 days, decreased p.o. intake, has not been taking her medications for the last 2 days -was diagnosed with DKA in the ER - patient was given adequate amount of IV fluids -status post insulin infusion, this has been transition to long-acting insulin and sliding scale insulin -Hemoglobin A1c this admission is pending (last hemoglobin A1c on 05/12/2022 was > 14.0) (2) Hypothyroidism: Code(s): E03.9 - Hypothyroidism, unspecified Status: Acute Assessment and Plan: Will continue levothyroxine which is her home medication Plan DVT prophylaxis: SQ Lovenox Stress ulcer prophylaxis: Not indicated Nutrition: Diabetic diet Code Status: Full code Critical Care Time Spent: 31 minutes Patient may be transferred to medical floor if okay with hospitalist Due to a high probability of clinically significant, life threatening deterioration, the patient required my highest level of preparedness to intervene emergently and I personally spent this critical care time directly and personally managing the patient. This critical care time included obtaining a history; examining the patient; pulse oximetry; ordering and review of studies; arranging urgent treatment with development of a management plan; evaluation of patient's response to treatment; frequent reassessment; and discussions with other providers. It was exclusive of separately billable procedures and treating other patients and teaching time. Please see Assessment and Plan section and the rest of the note for further information on patient assessment and treatment This dictation may have been done utilizing a voice recognition system. Attempts have been made to correct errors. However, there may be uncorrected grammatical, spelling, and recognitions errors present. Subjective Date/time seen: 09/26/22 09:41 Interval history: Reason for consult: Diabetic ketoacidosis, COVID positive, nausea, vomiting, generalized weakness, decreased appetite 09/26/2022: Patient seen and examined in the ICU, insulin drip was turned off last night and patient was transition to long-acting insulin and sliding scale insulin. Patient was screaming for her food tray this morning on the bedside nurse. Denies any chest pain, shortness of breath abdominal pain, nausea, vomiting. 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 She is threatening to leave against medical advice Review of Systems Review of Systems: All systems reviewed & are unremarkable except as noted in HPI and below Exam Narrative: General: Sitting in bed, not in distress, she is upset and angry on the bedside nurse HEENT:? Pupils equal reactive, dry oral mucosa Neck:? Supple, no lymphadenopathy Respiratory:? Clear to auscultation bilaterally, no wheezing Cardiac:? S1-S2 normal, regular rate and rhythm Abdomen:? Soft, nontender, nondistended, normoactive bowel sounds Extremities:? No edema, palpable pedal pulses, Neuro:? Patient is awake, alert, oriented x3, nonfocal Skin:? No lesions noted Psych:? Normal mentation affect Objective Data Vital Signs Vital Signs: Vital Signs - 24 hr 09/25/22 09:45 09/25/22 10:01 09/25/22 10:31 Temperature Pulse Rate 89 95 89 Respiratory Rate 14 28 H 16 Blood Pressure 135/92 H 134/96 H Pulse Oximetry 100 100 100 Oxygen Delivery 09/25/22 11:15 09/25/22 12:00 09/25/22 12:00 Temperature Pulse Rate 90 92 Respiratory Rate 16 Blood Pressure 135/97 H Pulse Oximetry 100 Oxygen Delivery Room Air 09/25/22 14:00 09/25/22 12:00 09/25/22 14:00 Temperature 98.6 F Pulse Rate 92 94 95 Respiratory
== END 2022-09-26 09:49 | disposition left against medical advice (07) | DRG 420 ==
LOC: ANHED 08:23 → ANHICU 10:38
PROVIDERS: Internal Medicine; Physician Assistant; Admitting Provider Chiropractor; Emergency Provider Emergency Medicine; PCP Family Medicine; Visit Provider Student in an Organized Health Care Education/Training Program
DX: E11.10 Type 2 diabetes mellitus with ketoacidosis without coma (principal); U07.1 COVID-19; E03.9 Hypothyroidism, unspecified; D64.9 Anemia, unspecified; I73.00 Raynaud's syndrome without gangrene; F17.210 Nicotine dependence, cigarettes, uncomplicated
CPT/HCPCS: 36415; 36600; 71045; 74177; 80048; 80053; 81001; 81025; 82010; 82375; 82805; 82948; 83036; 83050; 83690; 83735; 84439; 84443; 84480; 85025; 85027; 87086; 87636; 96361; 96365; 96366; 96375; 99285; A9270; J0131; J1815; J3475; J3480; J7030; J7040; Q9967

== ENCOUNTER 2023-10-05 18:10 | Observation (INO) | payer OTHER, SELFPAY ==
--- NOTE | ~2023-10-05 | XR_ITS ---
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 RESULT: Lines, tubes, and devices: None. Lungs and pleura: Clear. Calcified left upper lung granuloma/hamartoma. Cardiomediastinal silhouette: Stable. Other: No acute osseous or upper abdominal finding. Old right rib fractures. IMPRESSION: No acute cardiopulmonary process. Reviewed, dictated and finalized at location K. RUMENTAL MUSIC TEACHER
--- NOTE | 2023-10-05 18:31 | ECG_ITS ---
Measurements Intervals [place] Rate: 106 P: 81 NH: 145 QRS: 67 QRSD: 90 T: 58 QT: 339 QTc: 451 Interpretive Statements SINUS TACHYCARDIA POSSIBLE LEFT ATRIAL ENLARGEMENT BASELINE ARTIFACT- I, II, III, AVR, AVL, AVF, V1-V2, V4 ABNORMAL ECG COMPARED TO ECG 09/20/2019 10:21:05 SINUS TACHYCARDIA NOW PRESENT Electronically Signed On 10-05-2023 19:46:13 VALUE ANALYSIS COORDINATOR by Josias Mcintosh D.O.
[2023-10-05 18:32] VITALS: BP 151/112; PULSE 102; RESP 20; TEMP 36.5; O2SAT 100
[2023-10-05 18:35] VITALS: O2SAT 99
[2023-10-05 18:42] VITALS: PULSE 97; RESP 15; O2SAT 99
[2023-10-05 18:58] VITALS: O2SAT 100
--- NOTE | 2023-10-05 19:02 | PC.NURSE ---
Pt older sister, Elke, at bedside. Says their mother is out of town and she can be reached at [phone] Pt son at bedside, , asked to be informed as well and can be reached at [phone]
[2023-10-05 19:18] LABS: Alanine Aminotransferase 14 U/L (6-35); Albumin Level 4.7 g/dL (3.5-5.1); Alkaline Phosphatase 193 U/L (38-126); Aspartate Amino Transferase 22 U/L (14-36); Bilirubin,Total 0.6 mg/dL (0.2-1.3); Blood Urea Nitrogen 23 mg/dL (7-17); Carbon Dioxide < 5 mmol/L (22-30); Chloride 99 mmol/L (98-107); Estimated CRCL calculation 55 ml/min; Estimated Glomerular Filt Rate > 60; Glucose 536 mg/dL (65-110); Potassium 5.8 mmol/L (3.4-5.0); Sodium 126 mmol/L (137-145)
[2023-10-05 19:26] LABS: Hematocrit 47.4 % (37.0-47.0); Hemoglobin 15.6 g/dL (12.0-15.0); Mean Corpuscular HGB Conc 32.9 g/dl (32-36); Mean Corpuscular Hemoglobin 28.7 pg (26-34); Mean Corpuscular Volume 87.1 fl (80-100); Mean Platelet Volume 10.2 fl (7.4-10.4); Platelet Count Result 548 k/mm3 (150-375); Red Blood Count 5.44 M/mm3 (4.2-5.4)
[2023-10-05 19:36] LABS: Serum Qual hCG Negative
[2023-10-05 19:37] LABS: SPREG INTERNAL CONTROL Positive
[2023-10-05] MEDS: SODIUM CHLORIDE 0.9% IV 1,000 ML 999 ML IV CONT ×3 (19:46→22:46)
[2023-10-05 19:52] LABS: Band Neutrophils Percent 5 % (0-6); Lymphocytes Percent Manual 6 % (18-44); Monocytes Percent Manual 4 % (3-9); Neutrophils Percent Manual 85 % (46-73); Total Cells Counted 100
[2023-10-05 19:53] LABS: Platelet Estimate Increased (Adequate); Schistocytes None Seen (NORMAL)
[2023-10-05 20:30] VITALS: PULSE 107; RESP 18; O2SAT 100
[2023-10-05 20:41] LABS: Influenza A QL RT-PCR Negative (Negative); Influenza B QL RT-PCR Negative (Negative); RSV RNA, RT-PCR Negative (Negative); SARS-CoV-2 RNA PCR Negative (Negative)
[2023-10-05 21:32] LABS: Beta-Hydroxybutyrate/Acetoacetate 9.69 mmol/L (0.02-0.27)
[2023-10-05 21:37] LABS: Alveolar/Arterial O2 Gradient 29.7 mmHg; Base Excess ABG -25.2 mEq/l (+/-2.0); Carboxyhemoglobin 0.8 % THb (0-2.0); Fractional Inspired Oxygen 21 %; HCO3 ABG 2.9 mEq/l (22.0-26.0); Oxygen Content ABG 20.9 %vol (16.0-22.0); Oxygen Saturation ABG 95.7 % (95.0-100.0); PO2 ABG 107.6 mmHg (80.0-100.0); PO2 FiO2 Ratio Arterial Blood 5.12 %; Reduced Hemoglobin 4.2 %THb (0-5.0); Total Hemoglobin 15.6 g/dL (12.0-18.0)
[2023-10-05 21:39] LABS: Modified Allen's Test Pass; PCO2 ABG 10.4 mmHg (35.0-45.0); Site Drawn RIGHT RADIAL; pH ABG 7.056 (7.350-7.450)
--- NOTE | 2023-10-05 22:04 | ED.GENADULT ---
HPI - General Adult General Chief complaint: Syncope Stated complaint: SOB Time Seen by Provider: 10/05/23 19:08 History of Present Illness HPI narrative: Patient is 38-year-old female who presents to the emergency department this evening complaining of general malaise. Patient states she has been feeling unwell for the past few days and admits that she does have a history of diabetes, insulin dependent, however she has not had her insulin in the past 3 days. Patient admits that she has been in DKA in the past. She states that she has noticed that her breathing has been very fast the past few days. She denies any chest pain, denies any nausea or vomiting. Patient admits that she is very thirsty and is currently asking for water. She denies any urinary symptoms including dysuria or hematuria, denies any constipation, diarrhea, any abdominal pain, melena or hematochezia, fevers or chills. Patient denies any sick contacts at home or exposure to any known COVID or influenza. There are no other modifying, alleviating, or precipitating factors at this time. Related Data Allergies Allergy/AdvReac Type Severity Reaction Status Date / Time lactose AdvReac Diarrhea Verified 05/13/23 11:59 Review of Systems Review of Systems: All systems are reviewed and are negative unless stated otherwise in the HPI. [facility] Past Medical History Medical History Anemia, unspecified Diabetic ketoacidosis Hypothyroidism 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), 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, managed as type 1 (2020) Low vitamin B12 level Menorrhagia Raynauds disease Viramontes syndrome Surgical History Surgical History History of tubal ligation Family History Family History Grandparent ALS (amyotrophic lateral sclerosis) Sibling Diabetes mellitus Father Hypertension Cerebrovascular accident Acute myocardial infarction Social History Social History Smoking packs per day: 0.5 Smoking cigarettes per day: 10.0 Years smoked: 10 Smoking pack-years: 5.00 Smoking status: Current every day smoker Tobacco type: cigarettes Second hand tobacco smoke exposure: No Alcohol intake: former Substance use: former Substance use type: marijuana Lack of Transportation: No Lack of Food: Never True Current Housing: I Have Housing Concerned About Future Housing: No Difficulty Paying Gas/Electric Bills: YES Difficulty Paying for Meds: YES Currently Unemployed: No Education: Trade/Vocational Certificate Difficulty w/ Childcare or Family Care: No Additional living arrangements comments: . Has 2 sons. 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. Spiritual care concerns: No Exam Narrative: General: Alert, awake, afebrile, K[place]maul breathing. HEENT: PERRL, no rhinorrhea, no post nasal drip, oropharynx clear. Neck: Trachea midline, no JVD, no lymphadenopathy. Cardiovascular: Regular rate and rhythm, no murmurs, rubs or gallops, no peripheral edema. Respiratory: Clear to auscultation bilaterally, tachypnea, no wheezing, no rhonchi, no rubs, [place]maul respirations. Abdomen: Soft, nontender, nondistended, no rebound, no guarding, no peritoneal signs. Musculoskeletal: No joint swelling or deformity, normal muscle tone. Skin: No rashes or petechia, no signs of infection. Psychiatric: Alert and oriented, normal behavior and judgment for situation. Neurological: Alert and oriented to person, place, and time. Follows all commands. No focal deficits, speech is clear and fluent. Course Vital Signs Vital signs: Vital Signs Temperature 97.7 F 10/05/23 18:32 Pulse Rate 102 H 10/05/23 18:32 Respiratory Rate 20 10/05/23 18:32
[2023-10-05 22:35] LABS: Lactic Acid Reflex 1.7 mmol/L (0.7-2.0)
[2023-10-05 22:39] LABS: Blood Urea Nitrogen 25 mg/dL (7-17); Carbon Dioxide < 5 mmol/L (22-30); Chloride 99 mmol/L (98-107); Estimated CRCL calculation 55 ml/min; Estimated Glomerular Filt Rate > 60; Glucose 517 mg/dL (65-110); Magnesium 2.3 mg/dL (1.6-2.3); Phosphorus 4.2 mg/dL (2.5-4.5); Potassium 5.8 mmol/L (3.4-5.0); Sodium 128 mmol/L (137-145)
[2023-10-05] MEDS: INSULIN HUMAN REGULAR (*BKC) 100 UNITS in SODIUM CHLORIDE 0.9% IV 99 ML 5.62 UNITS IV CONT (22:45)
[2023-10-05] MEDS: SODIUM BICARBONATE 8.4% 50 MEQ/50 ML SYRINGE IV PUSH (22:45)
[2023-10-05 22:51] LABS: Glucose Point of Care > 500 mg/dl (65-105)
--- NOTE | 2023-10-05 23:03 | PM.IMHP ---
H&P: HPI History of Present Illness Date/Time: 10/05/23 23:03 Chief Complaint: sob Narrative: This is a 38-year-old female with past medical history significant for type 1 diabetes mellitus, patient presents to the emergency room with complaints of not feeling well for the last 3 days or so not been using her insulin in the last 3 days having shortness of breath. History has been obtained mainly by reviewing medical records as patient is in distress unable to provide much history preliminary workup was significant for beta hydroxybutyrate of 9, anion gap 38, ABG showed a pH of 7.138 pCO2 17 PO2 121 leukocyte count of 20,000 hemoglobin 15 hematocrit 47 platelet [id number] sodium 128 glucose was 500 hemoglobin A1c was 14. Patient tested negative for COVID-19 RSV influenza type A and influenza type B . Patient has been admitted to ICU. EXAMINATION:? XR chest 1V portable Exam Date/Time:? 10/05/2023 19:30 DIRECTOR OF HOUSING HISTORY: SOB WITH ALTERED MENTAL STATUS ? Comparison:? 09/25/2022. RESULT: Lines, tubes, and devices:? None. Lungs and pleura:? Clear. Calcified left upper lung granuloma/hamartoma. Cardiomediastinal silhouette:? Stable. Other:? No acute osseous or upper abdominal finding. Old right rib fractures. ? IMPRESSION: No acute cardiopulmonary process. 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, managed as type 1 (2019) Low vitamin B12 level Menorrhagia Raynauds disease Viramontes syndrome Surgical History Surgical History History of tubal ligation Family History Family History Grandparent ALS (amyotrophic lateral sclerosis) Sibling Diabetes mellitus Father Hypertension Cerebrovascular accident Acute myocardial infarction Social History Social History Smoking packs per day: 0.5 Smoking cigarettes per day: 10.0 Years smoked: 10 Smoking pack-years: 5.00 Smoking status: Current every day smoker Second hand tobacco smoke exposure: No Alcohol intake: never Substance use: never Substance use type: marijuana Do You Feel Safe in your Home?: Yes Lack of Transportation: No Lack of Food: Never True Current Housing: I Have Housing Concerned About Future Housing: No Difficulty Paying Gas/Electric Bills: YES Difficulty Paying for Meds: YES Currently Unemployed: No Education: Trade/Vocational Certificate Difficulty w/ Childcare or Family Care: No Additional living arrangements comments: . Has 2 sons. 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. Spiritual care concerns: No Meds Home Medications and Allergies Home Medications Medication Instructions Recorded Confirmed Type blood sugar diagnostic (OneTouch #300 02/11/23 05/13/23 Rx Verio test strips) blood-glucose meter (OneTouch #1 02/11/23 05/13/23 Rx Verio Reflect Meter) blood-glucose meter,continuous #1 02/11/23 05/13/23 Rx (Dexcom G6 [employer]atsw[employer] Mate) blood-glucose sensor (Dexcom G6 #9 02/11/23 05/13/23 Rx Sensor device) blood-glucose transmitter (Dexcom #1 02/11/23 05/13/23 Rx G6 Transmitter device) glucagon 1 mg/0.2 mL subcutaneous 1 mg (0.2 mL) subcut ONCE #0.4 mL 02/11/23 05/13/23 Rx auto-injector (Gvoke HypoPen 2-Pack) insulin pump cart,automated,BT #45 02/11/23 05/13/23 Rx (Omnipod 5 G6 Pods (Gen 5) subcutaneous cartridge) insulin pump cartridge,automated #1 02/11/23 05/13/23 Rx dose,BT with controller subcutaneous (Omnipod 5 G6 Intro
[2023-10-05 23:10] VITALS: BP 180/110; PULSE 108; RESP 22; O2SAT 98
--- NOTE | 2023-10-05 23:16 | PC.NURSE ---
Educated pt about obtaining urine sample. Pt refusing to have straight catheterization.
--- NOTE | 2023-10-05 23:20 | PC.NURSE ---
Report given to ADONIS Magallon.
[2023-10-05 23:33] LABS: Hemoglobin A1C > 14.0 % (<5.7)
[2023-10-05 23:58] LABS: Glucose Point of Care > 500 mg/dl (65-105)
[2023-10-06] VITALS (18 sets, daily range): BP systolic 113–166; BP diastolic 69–113; PULSE 91–121; RESP 11–28; TEMP 36.6–37.1; O2SAT 92–99; BMI 21.7
--- NOTE | 2023-10-06 00:07 | ADMGEN ---
This patient, Madeleine Mendoza, was admitted to Intensive Care Unit-4. Patient/family oriented to hospital policies and general routines including ID bracelet, bed and alarms, visiting hours, pain management, procedures, bathroom and other care routines, personal items, smoking policy, room service/diet, and visiting hours. Information on how to activate the Rapid Response Team has been discussed. Patient/Family are encouraged to report perceived risks to care and to ask questions if they do not understand what they are told or what they should do.
[2023-10-06 00:55] LABS: Glucose Point of Care 375 mg/dl (65-105)
[2023-10-06 01:49] LABS: Glucose Point of Care 334 mg/dl (65-105)
--- NOTE | 2023-10-06 01:55 | PC.NURSE ---
Finished all 3 NS bolus from ER as they had not infused, now start fluids per DKA protocol.
[2023-10-06] MEDS: SODIUM CHLORIDE 0.9% IV 1,000 ML 150 ML IV CONT (02:09)
[2023-10-06 02:55] LABS: Blood Urea Nitrogen 23 mg/dL (7-17); Carbon Dioxide < 5 mmol/L (22-30); Chloride 106 mmol/L (98-107); Estimated CRCL calculation 76 ml/min; Estimated Glomerular Filt Rate > 60; Glucose 301 mg/dL (65-110); Potassium 4.3 mmol/L (3.4-5.0); Sodium 131 mmol/L (137-145)
[2023-10-06 03:34] LABS: Glucose Point of Care 273 mg/dl (65-105)
[2023-10-06 05:14] LABS: Glucose Point of Care 214 mg/dl (65-105)
[2023-10-06] MEDS: KCL 20 MEQ/D5/0.45% SOD CHL 1,000 ML 150 ML IV CONT ×2 (05:17→12:01)
[2023-10-06 06:23] LABS: MRSA (PCR) NOT DETECTED (NOT DETECTE)
[2023-10-06 06:35] LABS: Glucose Point of Care 210 mg/dl (65-105)
[2023-10-06 07:08] LABS: Anion Gap 11 mmol/L (8-16); Blood Urea Nitrogen 21 mg/dL (7-17); Calcium 7.9 mg/dL (8.4-10.2); Carbon Dioxide 12 mmol/L (22-30); Chloride 108 mmol/L (98-107); Estimated CRCL calculation 103 ml/min; Estimated Glomerular Filt Rate > 60; Glucose 221 mg/dL (65-110); Potassium 3.8 mmol/L (3.4-5.0); Sodium 131 mmol/L (137-145)
[2023-10-06 08:10] LABS: Glucose Point of Care 220 mg/dl (65-105)
[2023-10-06] MEDS: SODIUM CHLORIDE 0.9% IV 1,000 ML 999 ML IV CONT (08:24)
[2023-10-06] MEDS: INSULIN HUMAN REGULAR (*BKC) 100 UNITS in SODIUM CHLORIDE 0.9% IV 99 ML 5.62 UNITS IV CONT (08:34)
[2023-10-06 09:13] LABS: Glucose Point of Care 218 mg/dl (65-105)
[2023-10-06 09:55] LABS: Glucose Point of Care 227 mg/dl (65-105)
[2023-10-06 09:58] LABS: Basophils Percent Auto 0.3 % (0.2-1.2); Eosinophils Percent Auto 0.2 % (0-4.4); Hemoglobin 12.1 g/dL (12.0-15.0); Immature Granulocyte Absolute 0.15 K/mm3 (0.00-0.031); Immature Granulocyte Percent A 1.1 % (0-0.5); Lymphocytes Absolute Auto 1.09 K/mm3 (0.9-3.2); Lymphocytes Percent Auto 7.7 % (18.3-44.2); Mean Corpuscular HGB Conc 34.6 g/dl (32-36); Mean Corpuscular Hemoglobin 28.6 pg (26-34); Mean Corpuscular Volume 82.7 fl (80-100); Mean Platelet Volume 9.7 fl (7.4-10.4); Monocytes Absolute Auto 1.3 K/mm3 (0.1-0.6); Monocytes Percent Auto 9.2 % (2.6-8.5); Neutrophils Absolute Auto 11.6 K/mm3 (1.3-6.7); Neutrophils Percent Auto 81.5 % (45.5-73.1); Platelet Count Result 344 k/mm3 (150-375); Red Blood Count 4.23 M/mm3 (4.2-5.4); White Blood Count 14.2 K/mm3 (4.5-10.0)
[2023-10-06] MEDS: CIPROFLOXACIN HC OTIC 10 ML 3 DROP RIGHT EAR ×2 (10:05→21:50)
[2023-10-06] MEDS: ENOXAPARIN 40 MG/0.4 ML SYRINGE SUB-Q (10:05)
[2023-10-06] MEDS: AMOXICILLIN/CLAVULANATE K 875-125 MG TAB 1 TABLET PO ×2 (10:05→21:49)
[2023-10-06 10:30] LABS: Anion Gap 9 mmol/L (8-16); Blood Urea Nitrogen 17 mg/dL (7-17); Calcium 7.4 mg/dL (8.4-10.2); Carbon Dioxide 13 mmol/L (22-30); Chloride 109 mmol/L (98-107); Estimated CRCL calculation 125 ml/min; Estimated Glomerular Filt Rate > 60; Glucose 216 mg/dL (65-110); Potassium 3.6 mmol/L (3.4-5.0); Sodium 131 mmol/L (137-145)
--- NOTE | 2023-10-06 10:45 | WPDCNINT ---
Assessment and Plan Assessment and plan (1) Diabetic ketoacidosis: Code(s): E11.10 - Type 2 diabetes mellitus with ketoacidosis without coma Status: Acute Assessment and Plan: 10/04: Patient presented the ER with generalized malaise, weakness, insulin pump nonfunctioning a not taken any insulin the last 2-3 days prior to admission, also had decreased p.o. intake -in the ER patient was diagnosed with diabetic ketoacidosis with severe anion gap metabolic acidosis, hyperglycemia, elevated beta hydroxybutyrate, UA also revealed. Proteins, ketones and glucose -patient was finally given 3 L of IV fluid bolus upon arrival to the ICU and started on insulin infusion per DKA protocol -she was given sodium bicarbonate x1 in the ER -patient continues to be acidotic, given 1 L normal saline IV fluid bolus this morning -continue insulin infusion as of now -will transition once metabolic acidosis improves (2) Dehydration: Code(s): E86.0 - Dehydration Status: Acute Assessment and Plan: Adequately fluid-resuscitated, adequate urine output, kidney functions are within normal limits (3) SUPRIYA (latent autoimmune diabetes mellitus in adults): Code(s): E13.9 - Other specified diabetes mellitus without complications Status: Acute Assessment and Plan: History of diabetes on insulin pump which is not functioning for the last 3 days per patient. He has not received any kind of insulin and that is reason she presented with diabetic ketoacidosis -have consulted dietitian and marketing/sales person to evaluate the patient -hemoglobin A1c this admission was > 14.0 Plan DVT prophylaxis: Lovenox Stress ulcer prophylaxis: Not indicated Nutrition: NPO except ice chips Code Status: Full code Critical Care Time Spent: 47 minutes Due to a high probability of clinically significant, life threatening deterioration, the patient required my highest level of preparedness to intervene emergently and I personally spent this critical care time directly and personally managing the patient. This critical care time included obtaining a history; examining the patient; pulse oximetry; ordering and review of studies; arranging urgent treatment with development of a management plan; evaluation of patient's response to treatment; frequent reassessment; and discussions with other providers. It was exclusive of separately billable procedures and treating other patients and teaching time. Please see Assessment and Plan section and the rest of the note for further information on patient assessment and treatment This dictation may have been done utilizing a voice recognition system. Attempts have been made to correct errors. However, there may be uncorrected grammatical, spelling, and recognitions errors present. Oyster Grader Consult Note Consult date: 10/06/23 Reason for consult: Diabetic ketoacidosis, generalized malaise, weakness, not feeling well and tachypnea HPI: Madeleine Mendoza is a 38 year old female with past medical history of diabetes x1 on insulin pump, anemia, diabetic ketoacidosis, Raynaud's disease, presented the ED on 10/05/2023 with complains generalized malaise, weakness, not feeling well, nausea, vomiting. In the ER patient was diagnosed with diabetic ketoacidosis with elevated blood sugars, elevated anion gap, elevated beta hydroxybutyrate. According the records patient has not taken her insulin for more than 3 days, she also states that her insulin pump is nonfunctioning. She has not eaten for the last 2-3 days. UA was positive for ketones, glucose and protein speech patient was supposed to be given 3 L IV fluid boluses in the ER was only given sodium bicarb x1 and while bringing the patient to the ICU she had 3 IV fluid boluses running to gravity. Patient was started on insulin infusion per DKA protocol and transferred to the ICU for further management 10/06/2023: Patient seen and examined the ICU, complains of right ear pa
[2023-10-06 11:18] LABS: Glucose Point of Care 227 mg/dl (65-105)
[2023-10-06 11:59] LABS: Glucose Point of Care 201 mg/dl (65-105)
[2023-10-06 13:05] LABS: Glucose Point of Care 204 mg/dl (65-105)
--- NOTE | 2023-10-06 13:20 | PC.NURSE ---
patient won't answer questions regarding home medications; based on external med list no medications have been filled recently
--- NOTE | 2023-10-06 13:30 | PC.NURSE ---
RN notified that patient was getting out of bed to use bedside commode; RN had entered room and found patient had taken off telemetry, pulse ox and blood pressure cuff and ripped IV out. blood was all over patient, bed, floor and bedside commode; patient stated I had to go to the bathroom and was not waiting for you people so I ripped everything off and went myself. RN informed patient that she was on an insulin drip therefore another IV will need to be placed and to next time please use the call light. IV was placed and bed alarm was turned back on.
[2023-10-06] MEDS: INSULIN HUMAN REGULAR (*BKC) 100 UNITS in SODIUM CHLORIDE 0.9% IV 99 ML 5.5 UNITS IV CONT (14:11)
[2023-10-06 14:14] LABS: Anion Gap 5 mmol/L (8-16); Blood Urea Nitrogen 14 mg/dL (7-17); Calcium 7.7 mg/dL (8.4-10.2); Carbon Dioxide 17 mmol/L (22-30); Chloride 107 mmol/L (98-107); Estimated CRCL calculation 125 ml/min; Estimated Glomerular Filt Rate > 60; Glucose 200 mg/dL (65-110); Potassium 3.1 mmol/L (3.4-5.0); Sodium 129 mmol/L (137-145)
[2023-10-06 14:22] LABS: Glucose Point of Care 203 mg/dl (65-105)
[2023-10-06] MEDS: POTASSIUM CHLORIDE INJ 40 MEQ in SODIUM CHLORIDE 0.9% IV 500 ML 130 MEQ IVPB (15:20)
[2023-10-06 15:22] LABS: Glucose Point of Care 178 mg/dl (65-105)
[2023-10-06 16:12] LABS: Glucose Point of Care 233 mg/dl (65-105)
[2023-10-06 17:06] LABS: Glucose Point of Care 212 mg/dl (65-105)
[2023-10-06] MEDS: INSULIN GLARGINE (*BKC) 100 UNITS/ML 25 UNITS SUB-Q (17:40)
[2023-10-06 18:04] LABS: Appearance Urine Cloudy (Clear); Bacteria Urine None Seen /hpf; Bilirubin Urine Negative (Negative); Blood Urine 2+ (Negative); Color Urine Yellow (Yellow); Glucose Urine UA 3+ mg/dL (Negative); Ketones Urine 2+ mg/dL (Negative); Leukocyte Esterase Ur 3+ LEU/UL (Negative); Nitrate Urine Negative (Negative); Non Pathogenic Casts 0-2; Protein Urine Trace mg/dL (Negative); Specific Grav Ur 1.016 (1.001-1.035); Squamous Epithelial Cell Urine Occasional /hpf (Few); Urobilinogen Urine 0.2 mg/dL (<2.0); WBC Urine >100 /hpf
[2023-10-06 18:12] LABS: Add Urine Microscopic? YES
[2023-10-06 18:15] LABS: Anion Gap 6 mmol/L (8-16); Blood Urea Nitrogen 11 mg/dL (7-17); Calcium 7.6 mg/dL (8.4-10.2); Carbon Dioxide 17 mmol/L (22-30); Chloride 108 mmol/L (98-107); Estimated CRCL calculation 125 ml/min; Estimated Glomerular Filt Rate > 60; Glucose 226 mg/dL (65-110); Potassium 3.6 mmol/L (3.4-5.0); Sodium 131 mmol/L (137-145)
--- NOTE | 2023-10-06 18:21 | PC.NURSE ---
1700: patient called RN to room and stated if I don't get something to eat right now I am was going to leaving. RN informed patient that she was still on the insulin drip so unfortunately she cannot eat at this time but hopefully after her next lab draw her labs would be better and then could eat. patient then stated listen you gaston bitch, if I don't get food right now I am going to leave. I don't care about the insulin. My AIC has been 16 for the last year and a half. Get me food now. RN informed patient the doctor would be notified. 1715:Dr. Ramirez was called and stated if patient wants to leave that is her choice but please inform her she will come right back very shortly, but we can also offer that we can give her 25 units of lantus and a diabetic diet but her sugars may rebound due to her labs not being fully corrected. 1720: notified patient of Dr. Ramirez's choices; patient stated well since nobody will come and get me, I guess I will stay but I better get food. RN informed patient that her dinner should be on the way.
--- NOTE | 2023-10-06 21:38 | PC.NURSE ---
2109 unknown white substance and glass pipe surrendered to Security Tony.
--- NOTE | 2023-10-06 22:07 | PC.NURSE ---
2100. Patient's sister Elke called and notified this nurse that patient with pipe and unknown substance inside of her purse. Belongings were in the patient room inside of closet. Patient resting quietly in bed. chief engineer research, Silvia made aware. This nurse and Silvia RN looked through purse and found pipe and unknown white substance. Security notified. notified.
[2023-10-06 22:25] LABS: Amphetamine Screen Urine Negative (Negative); Barbiturate Screen Urine Negative (Negative); Benzodiazepines Screen Urine Negative (Negative); Cannabinoid Screen Urine Negative (Negative); Cocaine Screen Urine Negative (Negative); Methadone Screen Urine Negative (Negative); Opiate Screen Urine Negative (Negative); Phencyclidine Screen Urine Negative (Negative)
[2023-10-07] VITALS: BP 113/74; PULSE 96; PULSE 98; RESP 16; TEMP 37; O2SAT 95
[2023-10-07 01:40] LABS: Glucose Point of Care 255 mg/dl (65-105)
[2023-10-07 02:00] VITALS: BP 122/89; PULSE 89; PULSE 91; RESP 15
[2023-10-07] MEDS: INSULIN ASPART (*BKC) 100 UNITS/ML SUB-Q ×3 (02:09→11:55)
[2023-10-07 04:00] VITALS: BP 109/61; PULSE 86; PULSE 94; RESP 12; O2SAT 99
[2023-10-07 04:22] LABS: Basophils Percent Auto 0.2 % (0.2-1.2); Eosinophils Absolute Auto 0.1 K/mm3 (0-0.3); Eosinophils Percent Auto 1.5 % (0-4.4); Hematocrit 32.7 % (37.0-47.0); Hemoglobin 11.3 g/dL (12.0-15.0); Immature Granulocyte Absolute 0.05 K/mm3 (0.00-0.031); Immature Granulocyte Percent A 0.5 % (0-0.5); Lymphocytes Absolute Auto 1.24 K/mm3 (0.9-3.2); Lymphocytes Percent Auto 13.6 % (18.3-44.2); Mean Corpuscular HGB Conc 34.6 g/dl (32-36); Mean Corpuscular Hemoglobin 28.3 pg (26-34); Mean Corpuscular Volume 81.8 fl (80-100); Mean Platelet Volume 9.9 fl (7.4-10.4); Monocytes Absolute Auto 0.7 K/mm3 (0.1-0.6); Monocytes Percent Auto 7.1 % (2.6-8.5); Neutrophils Percent Auto 77.1 % (45.5-73.1); Platelet Count Result 275 k/mm3 (150-375); Red Cell Distribution Width 13.2 % (11.5-14.5); White Blood Count 9.1 K/mm3 (4.5-10.0)
[2023-10-07 04:28] LABS: Lactic Acid Reflex 0.9 mmol/L (0.7-2.0)
[2023-10-07 04:30] LABS: Alanine Aminotransferase 10 U/L (6-35); Albumin Level 2.9 g/dL (3.5-5.1); Alkaline Phosphatase 117 U/L (38-126); Anion Gap 3 mmol/L (8-16); Aspartate Amino Transferase 22 U/L (14-36); Bilirubin,Total 0.3 mg/dL (0.2-1.3); Blood Urea Nitrogen 9 mg/dL (7-17); Calcium 7.8 mg/dL (8.4-10.2); Carbon Dioxide 23 mmol/L (22-30); Chloride 106 mmol/L (98-107); Estimated CRCL calculation 125 ml/min; Estimated Glomerular Filt Rate > 60; Glucose 329 mg/dL (65-110); Magnesium 2.2 mg/dL (1.6-2.3); Potassium 3.2 mmol/L (3.4-5.0); Sodium 132 mmol/L (137-145)
[2023-10-07 06:00] VITALS: BP 122/71; PULSE 92; PULSE 97; RESP 15; TEMP 36.8
[2023-10-07] MEDS: LEVOTHYROXINE SODIUM 100 MCG TABLET PO (06:50)
[2023-10-07] MEDS: AMOXICILLIN/CLAVULANATE K 875-125 MG TAB 1 TABLET PO (07:52)
[2023-10-07] MEDS: POTASSIUM PHOS/SODIUM PHOS 250 MG TABLET PO (07:52)
[2023-10-07] MEDS: POTASSIUM CHLORIDE 20 MEQ ER TABLET 40 MEQ PO (07:52)
[2023-10-07] MEDS: ENOXAPARIN 40 MG/0.4 ML SYRINGE SUB-Q (07:52)
[2023-10-07] MEDS: CARBAMIDE PEROXIDE 6.5% OT SOLN 15 ML BTL 5 DROP EACH EAR (07:53)
[2023-10-07] MEDS: CIPROFLOXACIN HC OTIC 10 ML 3 DROP RIGHT EAR (07:53)
[2023-10-07 08:00] VITALS: BP 116/75; PULSE 93; PULSE 98; RESP 17; TEMP 36.7
[2023-10-07] MEDS: INSULIN GLARGINE (*BKC) 100 UNITS/ML 8 UNITS SUB-Q (08:02)
[2023-10-07 08:11] LABS: Glucose Point of Care 214 mg/dl (65-105)
--- NOTE | 2023-10-07 08:16 | WPDINTPN ---
Progress Note: A&P Assessment and Plan (1) Diabetic ketoacidosis: Code(s): E11.10 - Type 2 diabetes mellitus with ketoacidosis without coma Status: Acute Assessment and Plan: 10/04: Patient presented the ER with generalized malaise, weakness, insulin pump nonfunctioning a not taken any insulin the last 2-3 days prior to admission, also had decreased p.o. intake -in the ER patient was diagnosed with diabetic ketoacidosis with severe anion gap metabolic acidosis, hyperglycemia, elevated beta hydroxybutyrate, UA also revealed. Proteins, ketones and glucose -patient was finally given 3 L of IV fluid bolus upon arrival to the ICU and started on insulin infusion per DKA protocol -she was given sodium bicarbonate x1 in the ER -10/05 patient given 1 L normal saline IV fluid bolus this morning -she was transition to long-acting insulin Lantus and sliding scale insulin with Accu-Cheks ACHS -tolerating diabetic diet -will have tobacco prevention health educator and care coordination follow the patient for obtaining Dexcom supplies for her insulin pump (2) Dehydration: Code(s): E86.0 - Dehydration Status: Acute Assessment and Plan: Adequately fluid-resuscitated, adequate urine output, kidney functions are within normal limits (3) SUPRIYA (latent autoimmune diabetes mellitus in adults): Code(s): E13.9 - Other specified diabetes mellitus without complications Status: Acute Assessment and Plan: History of diabetes on insulin pump which is not functioning for the last 3 days per patient. He has not received any kind of insulin and that is reason she presented with diabetic ketoacidosis -have consulted dietitian and tobacco prevention health educator to evaluate the patient -hemoglobin A1c this admission was > 14.0 (4) Electrolyte imbalance: Code(s): E87.8 - Other disorders of electrolyte and fluid balance, not elsewhere classified Status: Acute Assessment and Plan: Will replace potassium and phosphorus Plan DVT prophylaxis: Lovenox Stress ulcer prophylaxis: Not indicated Nutrition: Diabetic diet Code Status: Full code Critical Care Time Spent: 32 minutes Patient may transfer out of the ICU if okay with hospitalist Due to a high probability of clinically significant, life threatening deterioration, the patient required my highest level of preparedness to intervene emergently and I personally spent this critical care time directly and personally managing the patient. This critical care time included obtaining a history; examining the patient; pulse oximetry; ordering and review of studies; arranging urgent treatment with development of a management plan; evaluation of patient's response to treatment; frequent reassessment; and discussions with other providers. It was exclusive of separately billable procedures and treating other patients and teaching time. Please see Assessment and Plan section and the rest of the note for further information on patient assessment and treatment This dictation may have been done utilizing a voice recognition system. Attempts have been made to correct errors. However, there may be uncorrected grammatical, spelling, and recognitions errors present. Subjective Date/time seen: 10/07/23 08:16 Interval history: Reason for consult: Diabetic ketoacidosis, generalized malaise, weakness, not feeling well and tachypnea, tachycardia 10/07/2023: Patient seen and examined the ICU, is awake, alert, oriented, patient is more place in this morning. Wants to go home so she can figure out her Dexcom supplies show that she can start using her insulin pump. States her hemoglobin A1c have been elevated and she is follows crew caller. -overnight the mother call the bedside RN as stated that she may have taken some substances. The bedside RN found some kind of distance and her belongings, which was handed to security. Urine drug screen was negative. Patient is hemodynamically stable, very go
[2023-10-07 11:08] VITALS: BMI 23.1
--- NOTE | 2023-10-07 11:26 | PC.NURSE ---
This patient, Madeleine Mendoza, was transferred to [facility] on 10/07/23 at 1126. Personal belongings sent with patient. Report given to ADONIS Alanis Appropriate documentation sent with patient.
[2023-10-07 11:37] LABS: Glucose Point of Care 266 mg/dl (65-105)
--- NOTE | 2023-10-07 11:39 | PC.NURSE ---
This patient, Madeleine Mendoza, was received from [ ICU] on 10/07/23 at 1139. Patient/family oriented to unit policies and routines
--- NOTE | 2023-10-07 13:12 | PM.DS ---
DS: Admitting Diagnosis Discharge Date 10/07/2023 Admitting Diagnosis sob DS: Discharge Diagnosis Discharge Diagnosis (1) Diabetic ketoacidosis: Code(s): E11.10 - Type 2 diabetes mellitus with ketoacidosis without coma Status: Acute Assessment and Plan: 10/04: Patient presented the ER with generalized malaise, weakness, insulin pump nonfunctioning a not taken any insulin the last 2-3 days prior to admission, also had decreased p.o. intake -in the ER patient was diagnosed with diabetic ketoacidosis with severe anion gap metabolic acidosis, hyperglycemia, elevated beta hydroxybutyrate, UA also revealed. Proteins, ketones and glucose -patient was finally given 3 L of IV fluid bolus upon arrival to the ICU and started on insulin infusion per DKA protocol -she was given sodium bicarbonate x1 in the ER -10/05 patient given 1 L normal saline IV fluid bolus this morning -she was transition to long-acting insulin Lantus and sliding scale insulin with Accu-Cheks ACHS -tolerating diabetic diet -will have certified adaptive physical educator and care coordination follow the patient for obtaining Dexcom supplies for her insulin pump pt transferred out of icu wants to leave as soon as she reaches medical floor (2) Dehydration: Code(s): E86.0 - Dehydration Status: Acute Assessment and Plan: Adequately fluid-resuscitated, adequate urine output, kidney functions are within normal limits (3) SUPRIYA (latent autoimmune diabetes mellitus in adults): Code(s): E13.9 - Other specified diabetes mellitus without complications Status: Acute Assessment and Plan: History of diabetes on insulin pump which is not functioning for the last 3 days per patient. He has not received any kind of insulin and that is reason she presented with diabetic ketoacidosis -have consulted dietitian and certified adaptive physical educator to evaluate the patient -hemoglobin A1c this admission was > 14.0 (4) Electrolyte imbalance: Code(s): E87.8 - Other disorders of electrolyte and fluid balance, not elsewhere classified Status: Acute Assessment and Plan: Will replace potassium and phosphorus Plan Acute bronchitis Oral abx started on dc DS: Summary Hospital Course Hospital Course: 38-year-old female with past medical history significant for type 1 diabetes mellitus, patient presents to the emergency room with complaints of not feeling well for the last 3 days or so not been using her insulin in the last 3 days having shortness of breath.? History has been obtained mainly by reviewing medical records as patient is in distress unable to provide much history preliminary workup was significant for beta hydroxybutyrate of 9, anion gap 38, ABG showed a pH of 7.138 pCO2 17 PO2 121 leukocyte count of 20,000 hemoglobin 15 hematocrit 47 platelet 712736 sodium 128 glucose was 500 hemoglobin A1c was 14.? Patient tested negative for COVID-19 RSV influenza type A and influenza type B. dc with oral abx for bronchitis. Time Spent with Patient Time attestation: Total time spent providing and/or coordinating discharge services:40 minutes on day of dc Exam Narrative: General: Ill-appearing female, currently in no acute distress HEENT:? Pupils equal and reactive, sclera is clear, Neck:? Supple, no lymphadenopathy was appreciate Respiratory:? Clear to auscultation bilaterally, no wheezing adequate air entry Cardiac:? S1-S2 normal, sinus tachycardia Abdomen:? Soft, nontender, nondistended, normoactive bowel sounds Extremities:? No edema Neuro:? Patient is awake, alert, oriented, nonfocal, follows simple commands and answers to questions appropriately Skin:? Patient has a scab in the glabellar region, also redness of her knees bilaterally, nontender, blanchable, not warm Psych:? Normal mentation and affect DS: Data Data Completed and Pending Labs on day of discharge: Labs from last 24 hours 10/07/23 10/07/23 10/07/23 11:23 07:49 03:59 WBC 9.1 R
--- NOTE | 2023-10-08 12:35 | PCCDE ---
10/08/23 12:35 pm Attempted to reach discharged patient. Message left including direct call back number (slowly and repeated) FJ
== END 2023-10-07 13:33 | disposition home or self-care (01) ==
LOC: ANHED 22:15 → ANHICU 10-06 06:32 → ANH3MED 10-07 13:12 → ANHICU 10-08 09:35
PROVIDERS: Emergency Medicine; Internal Medicine; Admitting Provider Internal Medicine; Emergency Provider Emergency Medicine; PCP Family Medicine; Visit Provider Family Medicine
DX: E13.10 Other specified diabetes mellitus with ketoacidosis without coma (principal); Z96.41 Presence of insulin pump (external) (internal); E86.0 Dehydration; E87.5 Hyperkalemia; E87.1 Hypo-osmolality and hyponatremia; I73.00 Raynaud's syndrome without gangrene; K74.3 Primary biliary cirrhosis; L94.0 Localized scleroderma [morphea]; R79.89 Other specified abnormal findings of blood chemistry; E87.8 Other disorders of electrolyte and fluid balance, not elsewhere classified; J20.9 Acute bronchitis, unspecified; D64.9 Anemia, unspecified; R94.31 Abnormal electrocardiogram [ECG] [EKG]; E03.9 Hypothyroidism, unspecified; E53.8 Deficiency of other specified B group vitamins; Z20.822 Contact with and (suspected) exposure to COVID-19; F17.210 Nicotine dependence, cigarettes, uncomplicated; Z79.4 Long term (current) use of insulin; Z83.3 Family history of diabetes mellitus
CPT/HCPCS: 36415; 36600; 71045; 80048; 80053; 80307; 81001; 82010; 82375; 82805; 82948; 83036; 83050; 83605; 83735; 84100; 84443; 84703; 85025; 87040; 87086; 87637; 87641; 93005; 96365; 96366; 96368; 96372; 96375; 99285; A9270; G0378; G0379; J1650; J1815; J3480; J7030; J7040

== ENCOUNTER 2024-03-28 12:58 | Emergency (ER) | payer MEDICAID, SELFPAY ==
[2024-03-28 13:17] VITALS: BP 128/82; PULSE 119; RESP 16; TEMP 37.8; O2SAT 98
--- NOTE | 2024-03-28 14:10 | ED.GENADULT ---
HPI - General Adult General Chief complaint: Skin/Abscess/Foreign Body Stated complaint: Left Armpit Bump Source: patient Mode of arrival: ambulatory Limitations: no limitations History of Present Illness HPI narrative: Patient presents for evaluation of a painful swollen lesion to the left axillary region for last 4 days. No fever, chills, nausea, vomiting. She is diabetic. She has an insulin pump. Her blood sugar has been reading high . She rates her pain 10/10 in severity. Denies illicit drug use. Related Data Allergies Allergy/AdvReac Type Severity Reaction Status Date / Time lactose AdvReac Diarrhea Verified 03/28/24 13:10 Review of Systems Review of Systems: CONSTITUTIONAL: Denies fever, chills, or sweats. EYES: Denies visual changes, redness, or discharge. ENT: Denies rhinorrhea, congestion, sore throat, or otalgia. CARDIOVASCULAR: Denies chest pain, palpitations, or edema. RESPIRATORY: Denies cough or dyspnea. GASTROINTESTINAL: Denies abdominal pain, nausea, vomiting, or diarrhea. GENITOURINARY: Denies dysuria or hematuria. SKIN: Reports painful swollen lesion to the left axillary region. MUSCULOSKELETAL: Reports pain in the left axillary region. Denies back pain NEUROLOGIC: Denies headache, numbness, dizziness, or weakness. PSYCHIATRIC: Denies anxiety or depression. 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, managed as type 1 (2020) Low vitamin B12 level Menorrhagia Raynauds disease Viramontes syndrome Surgical History Surgical History History of tubal ligation Family History Family History Grandparent ALS (amyotrophic lateral sclerosis) Sibling Diabetes mellitus Father Hypertension Cerebrovascular accident Acute myocardial infarction Social History Social History Smoking packs per day: 0.5 Smoking cigarettes per day: 10.0 Years smoked: 10 Smoking pack-years: 5.00 Smoking status: Current every day smoker Second hand tobacco smoke exposure: No Alcohol intake: never Substance use: never Substance use type: marijuana Do You Feel Safe in your Home?: Yes Lack of Transportation: No Lack of Food: Never True Current Housing: I Have Housing Concerned About Future Housing: No Difficulty Paying Gas/Electric Bills: YES Difficulty Paying for Meds: YES Currently Unemployed: No Education: Trade/Vocational Certificate Difficulty w/ Childcare or Family Care: No Additional living arrangements comments: . Has 2 sons. 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. Spiritual care concerns: No Exam Narrative: GENERAL: Well-appearing, well-nourished, and in no acute distress. HEAD: Normocephalic, atraumatic. EYES: PERRLA and EOMI. ENT: Nares clear, no rhinorrhea or epistaxis. Mucous membranes moist. Oropharynx without tonsillar hypertrophy exudate or other lesions. Bilateral TMs pearly alejandro nonbulging NECK: Supple. No adenopathy or masses. No carotid bruits or JVD CHEST: Clear to auscultation. No respiratory distress. No wheezes rales or rhonchi HEART: Regular rate and rhythm. No murmur heard. Normal peripheral pulses. ABDOMEN: Soft, nontender, nondistended, normal active bowel sounds. EXTREMITIES: Normal range of motion. No edema. SKIN: there are several scabbed lesions to the face and bilateral upper extremities. There is a large swollen, erythematous lesion to the left axillary region with underlying induration fluctuance. There is erythema extending throughout the left upper arm to the elbow NEURO: No foc
== END 2024-03-28 14:10 | disposition short-term general hospital (02) ==
PROVIDERS: Emergency Provider Nurse Practitioner
DX: L02.412 Cutaneous abscess of left axilla (principal); L03.114 Cellulitis of left upper limb; F17.210 Nicotine dependence, cigarettes, uncomplicated; E03.9 Hypothyroidism, unspecified; E13.8 Other specified diabetes mellitus with unspecified complications; Z79.4 Long term (current) use of insulin; I73.00 Raynaud's syndrome without gangrene
CPT/HCPCS: 99212; 99213; G0463

== ENCOUNTER 2024-03-31 16:28 | Emergency (ER) | payer OTHER, MEDICAID, SELFPAY ==
[2024-03-31 16:42] VITALS: BP 117/82; PULSE 108; RESP 20; TEMP 36.9; O2SAT 100
--- NOTE | 2024-03-31 17:02 | ED.URI ---
HPI - URI/Sore Throat General Chief Complaint: Unspecified Stated Complaint: medication refill Time Seen by Provider: 03/31/24 17:02 Source: patient, RN notes reviewed and old records reviewed Mode of arrival: ambulatory Limitations: no limitations History of Present Illness HPI Narrative: Patient presents with request for insulin refilled. She reports that she lost a vial of insulin, and needs a new prescription. Patient does have hidradenitis, this is being treated at [facility]. She is not concerned about this today. She is simply concerned about securing a new prescription. She did try to call her repacker they are closed for the day Related Data Allergies Allergy/AdvReac Type Severity Reaction Status Date / Time lactose AdvReac Diarrhea Verified 03/31/24 16:40 Review of Systems Review of Systems: All systems reviewed & are unremarkable except as noted in HPI and below Constitutional: Constitutional: Reports no additional constitutional complaints ENT: Reports system reviewed and no additional complaints, except as documented Cardiovascular: Cardiovascular: Reports no additional cardiovascular complaints Respiratory: Respiratory: Reports no additional respiratory complaints Gastrointestinal: Gastrointestinal: Reports no additional gastrointestinal complaints Integumentary/Breasts: Skin/Breast: Reports system reviewed and no additional complaints, except as docu and Reports as per HPI Endocrine: Endocrine: Reports no additional endocrine complaints and Reports as per HPI PMFSH Past Medical History Medical History Anemia, unspecified Diabetic ketoacidosis Hypothyroidism 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), 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, managed as type 1 (2020) Low vitamin B12 level Menorrhagia Raynauds disease Viramontes syndrome Surgical History Surgical History History of tubal ligation Family History Family History Grandparent ALS (amyotrophic lateral sclerosis) Sibling Diabetes mellitus Father Hypertension Cerebrovascular accident Acute myocardial infarction Social History Social History Smoking packs per day: 0.5 Smoking cigarettes per day: 10.0 Years smoked: 10 Smoking pack-years: 5.00 Smoking status: Current every day smoker Second hand tobacco smoke exposure: No Alcohol intake: never Substance use: never Substance use type: marijuana Do You Feel Safe in your Home?: Yes Lack of Transportation: No Lack of Food: Never True Current Housing: I Have Housing Concerned About Future Housing: No Difficulty Paying Gas/Electric Bills: YES Difficulty Paying for Meds: YES Currently Unemployed: No Education: Trade/Vocational Certificate Difficulty w/ Childcare or Family Care: No Additional living arrangements comments: . Has 2 sons. 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. Spiritual care concerns: No Exam Const: General: cooperative, no acute distress, alert and awake Orientation/consciousness: oriented to person, oriented to place and oriented to time HENMT: Head: normal to inspection Resp: Effort & Inspection: normal respiratory effort and able to speak in complete sentences Auscultation: clear to auscultation bilaterally, no crackles, no rales, no rhonchi and no wheezes Cardio: Palpation: normal PMI Rate: regular rate Rhythm: regular rhythm Heart sounds: S1 normal heart sound present and S2 normal heart sound present Skin: Other: Redness and swelling to left axilla Neuro: General: oriented to person, oriented to place and oriented to time Cranial nerves: Yes CN's II-XII intact bilaterally Psych: Appearance: grossly rose
== END 2024-03-31 17:30 | disposition home or self-care (01) ==
PROVIDERS: Emergency Provider Nurse Practitioner Family
DX: E10.69 Type 1 diabetes mellitus with other specified complication (principal); F17.210 Nicotine dependence, cigarettes, uncomplicated; E03.9 Hypothyroidism, unspecified; I73.00 Raynaud's syndrome without gangrene
CPT/HCPCS: 99213; G0463

== ENCOUNTER 2024-04-25 19:43 | Emergency (ER) | payer OTHER, MEDICAID, SELFPAY ==
[2024-04-25 19:49] VITALS: BP 133/91; PULSE 98; RESP 16; TEMP 36.9; O2SAT 100
--- NOTE | 2024-04-25 19:50 | ED.GENADULT ---
HPI - General Adult General Chief complaint: Unspecified Stated complaint: med refill Time Seen by Provider: 04/25/24 20:03 Source: patient and RN notes reviewed Mode of arrival: ambulatory Limitations: no limitations History of Present Illness HPI narrative: 38-year-old female presents with concern for medication refill for insulin. She reports she is out of her insulin for her pump, she currently has no insulin at all. She ran out today. She reports she is in between doctors. Patient uses a dexcom to monitor her sugar, it is currently 391 Related Data Allergies Allergy/AdvReac Type Severity Reaction Status Date / Time lactose AdvReac Diarrhea Verified 03/31/24 16:40 Review of Systems Review of Systems: CONSTITUTIONAL: Denies malaise, chills, sweats, or fever. CARDIOVASCULAR: Denies chest pain, palpitations, or edema. RESPIRATORY: Denies cough. Denies dyspnea. 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, managed as type 1 (2020) Low vitamin B12 level Menorrhagia Raynauds disease Viramontes syndrome Surgical History Surgical History History of tubal ligation Family History Family History Grandparent ALS (amyotrophic lateral sclerosis) Sibling Diabetes mellitus Father Hypertension Cerebrovascular accident Acute myocardial infarction Social History Social History Smoking packs per day: 0.5 Smoking cigarettes per day: 10.0 Years smoked: 10 Smoking pack-years: 5.00 Smoking status: Current every day smoker Second hand tobacco smoke exposure: No Alcohol intake: never Substance use: never Substance use type: marijuana Do You Feel Safe in your Home?: Yes Lack of Transportation: No Lack of Food: Never True Current Housing: I Have Housing Concerned About Future Housing: No Difficulty Paying Gas/Electric Bills: YES Difficulty Paying for Meds: YES Currently Unemployed: No Education: Trade/Vocational Certificate Difficulty w/ Childcare or Family Care: No Additional living arrangements comments: . Has 2 sons. 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. Spiritual care concerns: No Comments At time of signature, agree with nursing past medical, surgical, social and family history. There is no relevant family history pertinent to the presenting complaint Exam Narrative: GENERAL: Well-appearing, well-nourished, and in no acute distress. HEAD: Normocephalic EYES: PERRLA, conjunctivae clear ENT: Nares clear. Mucous membranes moist. NECK: Supple. CHEST: No respiratory distress, speaks in full sentences. HEART: Regular rate and rhythm. No murmur heard. SKIN: Warm, dry, no rash. NEURO: Alert and oriented x3. PSYCH: Normal mood and affect Course Course Emergency Course: Patient reports she has a primary care she is waiting for an appointment Patient is aware of diagnosis, understands and agrees to treatment plan. Anticipatory guidance given. Patient agrees to follow-up as directed and is aware of reasons to seek care at the emergency department. Portions of this record may have been created with voice recognition software Level of Care: Express Care Visit Vital Signs Vital signs: Reviewed. Medical Decision Making MDM Narrative Medical decision making narrative: I evaluated this patient in the express care. History is obtained from patient who is an independent historian and physical exam was performed.? Available medical records were reviewed. ? Ex
== END 2024-04-25 20:16 | disposition home or self-care (01) ==
PROVIDERS: Emergency Provider Nurse Practitioner
DX: Z76.0 Encounter for issue of repeat prescription (principal); E13.9 Other specified diabetes mellitus without complications; E03.9 Hypothyroidism, unspecified; Z79.4 Long term (current) use of insulin; F17.210 Nicotine dependence, cigarettes, uncomplicated
CPT/HCPCS: 99211; G0463

== ENCOUNTER 2024-08-06 10:41 | Inpatient (IN) | payer OTHER, SELFPAY ==
[2024-08-06] VITALS (11 sets, daily range): BP systolic 112–160; BP diastolic 64–111; PULSE 89–112; RESP 12–20; TEMP 36.5–36.7; O2SAT 99–100; BMI 22.6
--- NOTE | ~2024-08-06 | XR_ITS ---
XR chest 1V portable DATE: 08/06/2024 11:05 INDICATION: Weakness. Transient alteration of awareness. TECHNIQUE: Portable supine AP chest on 08/06/2010 25 and 1105 hours COMPARISON: 10/05/2023 portable supine AP chest FINDINGS: Normal heart size. No hilar or mediastinal enlargement. No pulmonary infiltrate or consolidation, pleural effusion or pulmonary vascular congestion or pneumo thorax. Diffuse osteopenia. Old healed posterolateral right fourth rib fracture. IMPRESSION: No active cardiopulmonary disease Reviewed, dictated and finalized at location A. 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
[2024-08-06 10:49] LABS: Glucose Point of Care 450 mg/dl (65-105)
[2024-08-06] MEDS: SODIUM CHLORIDE 0.9% IV 1,000 ML 999 ML IV CONT ×3 (11:10→12:01)
[2024-08-06 11:14] LABS: Alveolar/Arterial O2 Gradient 0.8 mmHg; Base Excess ABG -25.3 mEq/l (+/-2.0); Fractional Inspired Oxygen 21 %; Methemoglobin ABG 0.3 %THb (0-1.5); Oxygen Content ABG 20.3 %vol (16.0-22.0); Oxygen Saturation ABG 97.5 % (95.0-100.0); Oxyhemoglobin 96.6 % THb (90.0-100.0); PO2 ABG 135.6 mmHg (80.0-100.0); PO2 FiO2 Ratio Arterial Blood 6.46 %; Reduced Hemoglobin 2.1 %THb (0-5.0); Total Hemoglobin 14.8 g/dL (12.0-18.0)
[2024-08-06 11:18] LABS: Device ROOM AIR; PCO2 ABG 11.1 mmHg (35.0-45.0); Site Drawn LEFT BRACHIAL
[2024-08-06 11:21] LABS: Basophils Absolute Auto 0.1 K/mm3 (0.0-0.1); Basophils Percent Auto 0.8 % (0.2-1.2); Eosinophils Absolute Auto 0.2 K/mm3 (0-0.3); Eosinophils Percent Auto 1.4 % (0-4.4); Hematocrit 47.4 % (37.0-47.0); Hemoglobin 15.1 g/dL (12.0-15.0); Immature Granulocyte Percent A 2.1 % (0-0.5); Lymphocytes Absolute Auto 1.29 K/mm3 (0.9-3.2); Lymphocytes Percent Auto 8.9 % (18.3-44.2); Mean Corpuscular HGB Conc 31.9 g/dl (32-36); Mean Corpuscular Hemoglobin 26.9 pg (26-34); Mean Corpuscular Volume 84.5 fl (80-100); Mean Platelet Volume 10.2 fl (7.4-10.4); Monocytes Absolute Auto 0.5 K/mm3 (0.1-0.6); Monocytes Percent Auto 3.3 % (2.6-8.5); Neutrophils Absolute Auto 12.1 K/mm3 (1.3-6.7); Neutrophils Percent Auto 83.5 % (45.5-73.1); Platelet Count Result 608 k/mm3 (150-375); Red Blood Count 5.61 M/mm3 (4.2-5.4); Red Cell Distribution Width 13.4 % (11.5-14.5); White Blood Count 14.4 K/mm3 (4.5-10.0)
[2024-08-06 11:40] LABS: Ethanol < 10 mg/dL (<10)
[2024-08-06 11:42] LABS: Large Platelets Present; Platelet Estimate Increased (Adequate); Schistocytes None Seen
--- NOTE | 2024-08-06 11:44 | ECG_ITS ---
Test Date: 2024-08-06 11:49:17 Measurements Intervals [place] Rate: 106 P: 80 [place]: 120 QRS: 73 QRSD: 97 T: 70 QT: 356 QTc: 474 Interpretive Statements SINUS TACHYCARDIA POSSIBLE LEFT ATRIAL ENLARGEMENT [-0.1mV P WAVE IN V1/V2] No previous ECG available for comparison Electronically Signed On 08-09-2024 16:45:08 TEENAGE PROGRAM DIRECTOR by Xander Monaco M.D.
[2024-08-06 11:45] LABS: Alanine Aminotransferase 18 U/L (6-35); Albumin Level 5.1 g/dL (3.5-5.1); Alkaline Phosphatase 219 U/L (38-126); Aspartate Amino Transferase 24 U/L (14-36); Bilirubin,Total 0.6 mg/dL (0.2-1.3); Blood Urea Nitrogen 21 mg/dL (7-17); Carbon Dioxide < 5 mmol/L (22-30); Chloride 101 mmol/L (98-107); Estimated CRCL calculation 49 ml/min; Estimated Glomerular Filt Rate 55; Glucose 539 mg/dL (65-110); Phosphorus 6.6 mg/dL (2.5-4.5); Potassium 6.6 mmol/L (3.4-5.0); Sodium 130 mmol/L (137-145)
--- NOTE | 2024-08-06 11:55 | PC.NURSE ---
Patient hard to redirect when being re educated about plan of care and NPO status. Patient verbally aggressive towards staff. Patient cursing at staff stating, you guys fucking suck . Patient given wet rag to help with her dry lips.
--- NOTE | 2024-08-06 12:05 | ED_ITS ---
HPI - General Adult General Chief complaint: Recheck/Abnormal Lab/Rx Stated complaint: hyperglycemic Time Seen by Provider: 08/06/24 10:43 History of Present Illness HPI narrative: Patient is a 39-year-old female with history of diabetes who presents ER with weakness. Has not been using her insulin for several days. Cannot identify why. Denies drug use or alcohol use. No additional complaints. She is oriented x3 but not cooperative with exam or history. 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, managed as type 1 (2020) Low vitamin B12 level Menorrhagia Raynauds disease Viramontes syndrome Surgical History Surgical History History of tubal ligation Family History Family History Grandparent ALS (amyotrophic lateral sclerosis) Sibling Diabetes mellitus Father Hypertension Cerebrovascular accident Acute myocardial infarction Social History Social History Smoking packs per day: 0.5 Smoking cigarettes per day: 10.0 Years smoked: 10 Smoking pack-years: 5.00 Smoking status: Current every day smoker Second hand tobacco smoke exposure: No Alcohol intake: never Substance use: never Substance use type: marijuana Do You Feel Safe in your Home?: Yes Lack of Transportation: No Lack of Food: Never True Current Housing: I Have Housing Concerned About Future Housing: No Difficulty Paying Gas/Electric Bills: YES Difficulty Paying for Meds: YES Currently Unemployed: No Education: Trade/Vocational Certificate Difficulty w/ Childcare or Family Care: No Additional living arrangements comments: . Has 2 sons. 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 Spiritual care concerns: No Exam 2 Narrative: GENERAL: Ill-appearing, well-nourished, and in no acute distress. HEAD: Normocephalic, atraumatic. EYES: PERRL and EOMI. ENT: Mucous membranes moist. CHEST: Clear to auscultation. No respiratory distress. HEART: Tacycardic and regular. Normal peripheral pulses but slow capillary refill of the hands and feet ABDOMEN: Soft, nontender, nondistended. EXTREMITIES: Normal range of motion. No edema. SKIN: Warm, dry, no rash. NEURO: Alert and oriented x3. Course Course Emergency Course: The [facility] hospitalist soreness tomorrow the admit to the hospitalist service. ICU consulted. Sodium bicarb and calcium gluconate given for hyperkalemia. Patient also started on insulin drip and received insulin bolus. Normal saline 3 L given as well. Patient is becoming a lot more energetic after resuscitation. Vital Signs Vital signs: Vital Signs Temperature 97.7 F 08/06/24 10:46 Pulse Rate 105 H 08/06/24 10:46 Respiratory Rate 08/06/24 10:46 Blood Pressure 160/103 H 08/06/24 10:46 Pulse Oximetry 08/06/24 10:46 Oxygen Delivery Room Air 08/06/24 10:46 Temperature 97.7 F 08/06/24 10:46 Pulse Rate 105 H 08/06/24 10:46 Respiratory Rate 08/06/24 10:54 Blood Pressure 160/103 H 08/06/24 10:46 Pulse Oximetry 08/06/24 10:54 Oxygen Delivery Room Air 08/06/24 10:46 Medical Decision Making Vital Signs Vital Signs: Vital Signs Temperature 97.7 F 08/06/24 10:46 Pulse Rate 105 H 08/06/24 10:46 Respiratory Rate 08/06/24 10:46 Blood Pressure 160/103 H 08/06/24 10:46 Pulse Oximetry 08/06/24 10:46 Oxygen Delivery Room Air 08/06/24 10:46 Temperature 97.7 F 08/06/24 10:46 Pulse Rate 105 H 08/06/24 10:46 Respiratory Rate 08/06/24 10:54 Blood Pressure 160/103 H 08/06/24 10:46 Pulse Oximetry 08/06/24 10:54 Oxygen Delivery Room Air 08/06/24 10:46 Lab Data 08/06/24 11:16 08/06/24 11:16 Labs: Lab Results 08/06/24 08/06/24 08/06/24 Range/Units 10:47 11:09 11:16 WBC 14.4 H (4.5-10.0) K/mm3 RBC 5.61 H (4.2-5.4) M/mm3 Hgb 15.1 H D (12.0-15.0) g/dL Hct 47.4 H (37.0-47.0) % MCV 84.5 (80-100) fl MCH 26.9 (26-34) pg MCHC 31.9 L (32-36) g/dl RDW 13.4 (11.5-14.5) % Plt Count 608 H D (150-375) k/mm3 MPV 10.2 (7.4-10.4) fl Immature Gran % (Auto) 2.1 H (0-0.5) % Neut % (Auto) 83.5 H (45.5-73.1) % Lymph % (Auto) 8.9 L (18.3-44.2) % [place] % (Auto) 3.3 (2.6-8.5) % Eos % (Auto) 1.4 (0-4.4) % Baso % (Auto) 0.8 (0.2-1.2) % Lymph # (Auto) 1.29 (0.9-3.2) K/mm3 [place] # (Auto) 0.5 (0.1-0.6) K/mm3 Eos # (Auto) 0.2 (0-0.3) K/mm3 Baso # (Auto) 0.1 (0.0-0.1) K/mm3 Abs Immat Gran (auto) 0.30 H (0.00-0.031) K/mm3 Absolute Neuts (auto) 12.1 H (1.3-6.7) K/mm3 Absolute Nucleated RBC 0.000 (0.0-0.012) K/mm3 Nucleated RBC % 0.0 (0.0-0.2) % Platelet Estimate Increased (Adequate) Large Platelets Present Schistocytes None seen Methemoglobin 0.3 (0-1.5) %THb Sodium 130 L (137-145) mmol/L Potassium 6.6 H* (3.4-5.0) mmol/L Chloride 101 (98-107) mmol/L Carbon Dioxide < 5 L (22-30) mmol/L Anion Gap (4-12) mmol/L BUN 21 H D (7-17) mg/dL Creatinine 1.10 H (0.7-1.0) mg/dL Estim Creat Clear Calc 49 ml/min Estimated GFR 55 L (59 - ) Glucose 539 H* (65-110) mg/dL POC Capillary Glucose 450 H (65-105) mg/dl Calcium 9.0 (8.4-10.2) mg/dL Phosphorus 6.6 H (2.5-4.5) mg/dL Magnesium 2.0 (1.6-2.3) mg/dL Total Bilirubin 0.6 (0.2-1.3) mg/dL AST 24 (14-36) U/L ALT 18 (6-35) U/L Alkaline Phosphatase 219 H (38-126) U/L Total Protein 9.0 H (6.3-8.2) g/dL Albumin 5.1 (3.5-5.1) g/dL Beta-Hydroxybutyrate/Acetoacetate Ethyl Alcohol < 10 (<10) mg/dL 08/06/24 Range/Units 11:17 WBC (4.5-10.0) K/mm3 RBC (4.2-5.4) M/mm3 Hgb (12.0-15.0) g/dL Hct (37.0-47.0) % MCV (80-100) fl MCH (26-34) pg MCHC (32-36) g/dl RDW (11.5-14.5) % Plt Count (150-375) k/mm3 MPV (7.4-10.4) fl Immature Gran % (Auto) (0-0.5) % Neut % (Auto) (45.5-73.1) % Lymph % (Auto) (18.3-44.2) % [place] % (Auto) (2.6-8.5) % Eos % (Auto) (0-4.4) % Baso % (Auto) (0.2-1.2) % Lymph # (Auto) (0.9-3.2) K/mm3 [place] # (Auto) (0.1-0.6) K/mm3 Eos # (Auto) (0-0.3) K/mm3 Baso # (Auto) (0.0-0.1) K/mm3 Abs Immat Gran (auto) (0.00-0.031) K/mm3 Absolute Neuts (auto) (1.3-6.7) K/mm3 Absolute Nucleated RBC (0.0-0.012) K/mm3 Nucleated RBC % (0.0-0.2) % Platelet Estimate (Adequate) Large Platelets Schistocytes Methemoglobin (0-1.5) %THb Sodium (137-145) mmol/L Potassium (3.4-5.0) mmol/L Chloride (98-107) mmol/L Carbon Dioxide (22-30) mmol/L Anion Gap (4-12) mmol/L BUN (7-17) mg/dL Creatinine (0.7-1.0) mg/dL Estim Creat Clear Calc ml/min Estimated GFR (59 - ) Glucose (65-110) mg/dL POC Capillary Glucose (65-105) mg/dl Calcium (8.4-10.2) mg/dL Phosphorus (2.5-4.5) mg/dL Magnesium (1.6-2.3) mg/dL Total Bilirubin (0.2-1.3) mg/dL AST (14-36) U/L ALT (6-35) U/L Alkaline Phosphatase (38-126) U/L Total Protein (6.3-8.2) g/dL Albumin (3.5-5.1) g/dL Beta-Hydroxybutyrate/Acetoacetate Pending Ethyl Alcohol (<10) mg/dL ABG Data ABG results: 08/06/24 11:09 Puncture Site Left brachial ABG pH 7.050 L* ABG pCO2 11.1 L* ABG pO2 135.6 H ABG PO2/FiO2 Ratio 6.46 ABG HCO3 3.0 L ABG O2 Saturation 97.5 ABG O2 Content 20.3 ABG Base Excess -25.3 A-a Gradient 0.8 Oxyhemoglobin 96.6 Carboxyhemoglobin 1.0 Reduced Hemoglobin 2.1 Total Hemoglobin 14.8 O2 Delivery Device Room air O2 Liters/Min 0.0 FiO2 21 Imaging Data Radiologist's impression: ITS Impressions Chest X-Ray 08/06/24 11:13 IMPRESSION: No active cardiopulmonary disease ECG Data EKG #1: ECG completion date: 08/06/24 ECG completion time: 11:49 EKG Interpretation: tachycardia (106), sinus rhythm, non-specific ST changes, normal QRS and normal QT Critical Care Time Critical Care Time Critical Care Time: Yes Total Critical Care Time: 35 Discharge Plan Discharge Clinical Impression: DKA (diabetic ketoacidosis), Hyperkalemia Patient Disposition: Still a Patient Condition: Serious Patient Language: [place] Prescriptions: No Action insulin lispro 100 unit/mL solution 90 unit subcut DAILY Qty: 10 0RF Rx Instructions: 90 units daily via continuous infusion device insulin lispro 100 unit/mL solution 90 unit subcut DAILY Qty: 10 1RF Rx Instructions: 90 units daily via continuous infusion (DME) Dexcom G6 Sensor Device See Rx Instructions .ROUTE .MEDSUPPLY Qty: 9 4RF Rx Instructions: Use to Monitor Glucose ; Change every 10 days (DME) Dexcom G6 Gripper Machine Operator Misc See Rx Instructions .ROUTE .MEDSUPPLY Qty: 1 0RF Rx Instructions: Will use smartphone (DME) Omnipod 5 G6 Pods (Gen 5) Cartridge See Rx Instructions .ROUTE .MEDSUPPLY Qty: 45 3RF Rx Instructions: change every 48 hours (DME) Omnipod 5 G6 Intro Kit (Gen 5) Cartridge See Rx Instructions .ROUTE .MEDSUPPLY Qty: 1 0RF Rx Instructions: As directed Gvoke HypoPen 2-Pack 1 mg/0.2 mL auto-injector 1 mg subcut ONCE Qty: 0.4 4RF Rx Instructions: may repeat once after 15 minutes if no response (DME) OneTouch Verio test strips Strip See Rx Instructions .Route Qty: 300 3RF Rx Instructions: Check glcuose 4-6 times a day (DME) lancets [Onetouch Delica Safety Lancet] 30 gauge misc See Rx Instructions .Route Qty: 200 3RF Rx Instructions: Use to check glcuose 4-6 times a day (DME) blood-glucose meter [OneTouch Verio Reflect Meter] Misc See Rx Instructions .Route Qty: 1 0RF Rx Instructions: As directed (DME) pen needle, diabetic [BD Ultra-Fine Marlen Pen Needle] 32 gauge x 5/32 needle See Rx Instructions .Route Qty: 300 3RF Rx Instructions: Use to take insulin 4-6 times a day Follow-up/Referrals: PHYSICIAN,PRIVATE INVESTIGATOR SURVEILLANCE [Primary Care Provider] -
[2024-08-06] MEDS: LORazepam INJ (*CRX) 2 MG/ML VIAL 0.5 MG IV PUSH (12:07)
[2024-08-06] MEDS: CALCIUM GLUCONATE 1,000 MG/10 ML VIAL 1000 MG IV PUSH (12:07)
[2024-08-06] MEDS: SODIUM BICARBONATE 8.4% 50 MEQ/50 ML SYRINGE IV PUSH (12:07)
[2024-08-06] MEDS: INSULIN HUMAN REGULAR (*BKC) 100 UNITS/ML 8 UNITS IV PUSH (12:08)
[2024-08-06 13:08] LABS: Glucose Point of Care 336 mg/dl (65-105)
[2024-08-06] MEDS: INSULIN HUMAN REGULAR (*BKC) 100 UNITS in SODIUM CHLORIDE 0.9% IV 99 ML 5.5 UNITS IV CONT ×2 (13:59→14:16)
--- NOTE | 2024-08-06 14:16 | ADMGEN ---
This patient, Madeleine Mendoza, was admitted to Intensive Care Unit-7 at 1415. Patient/family oriented to hospital policies and general routines including ID bracelet, bed and alarms, visiting hours, pain management, procedures, bathroom and other care routines, personal items, smoking policy, room service/diet, and visiting hours. Information on how to activate the Rapid Response Team has been discussed. Patient/Family are encouraged to report perceived risks to care and to ask questions if they do not understand what they are told or what they should do.
--- NOTE | 2024-08-06 14:35 | P.HP_ITS ---
H&P: HPI History of Present Illness Date/Time: 08/06/24 14:35 Chief Complaint: Elevated blood sugars Narrative: Madeleine Mendoza is a 39 year old female hx Type I Diabetes with an insulin pump, DKA, patricia's, admitted for DKA. On arrival, she was afebrile, tachycardic, hypertensive (97.7, RR12-20, HR 89-112, BP 123-160/91-106). WBC 14.4, potassium 6.6, glucose 539, beta hydroxybutyrate 12.2, with a metabolic acidosis, 7.050, pCO2 11, PO2 135.6, HCO3 3. She was tachycardic to 108. Irritable and upset she couldn't get out of bed. She reports family is out of town and she could not find her insulin so hasn't been able to take it for several days. Usually manages blood sugars with an insulin pump. Denies dysuria but reports shortness of breath that is typical for her when she is in DKA. Denies dysuria but is overall a poor historian. Appears irritable and frustrated by questions. She was given fluids and started on insulin drip in the ER and transferred to the ICU for continued care. 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, managed as type 1 (2020) Low vitamin B12 level Menorrhagia Raynauds disease Viramontes syndrome Surgical History Surgical History History of tubal ligation Family History Family History Grandparent ALS (amyotrophic lateral sclerosis) Sibling Diabetes mellitus Father Hypertension Cerebrovascular accident Acute myocardial infarction Social History Social History Smoking packs per day: 0.5 Smoking cigarettes per day: 10.0 Years smoked: 20 Smoking pack-years: 10.00 Smoking status: Current every day smoker Tobacco type: cigarettes Second hand tobacco smoke exposure: No Alcohol intake: never Substance use: never Substance use type: does not use Do You Feel Safe in your Home?: Yes Lack of Transportation: No Lack of Food: Never True Current Housing: I Have Housing Concerned About Future Housing: No Difficulty Paying Gas/Electric Bills: No Difficulty Paying for Meds: No Currently Unemployed: No Education: Decline to Answer Difficulty w/ Childcare or Family Care: No Additional living arrangements comments: . Has 2 sons. 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. Spiritual care concerns: No Meds Home Medications and Allergies Home Medications ?Medication ?Instructions ?Recorded ?Confirmed ?Type blood-glucose meter,continuous #1 ea 02/11/23 08/06/24 Rx (Dexcom G6 Harvest [employer]or) blood-glucose sensor (Dexcom G6 #9 ea 02/11/23 08/06/24 Rx Sensor device) glucagon 1 mg/0.2 mL subcutaneous 1 mg (0.2 mL) subcut ONCE #0.4 mL 02/11/23 08/06/24 Rx auto-injector ([employer] HypoPen 2-Pack) insulin pump cart,automated,BT #45 ea 02/11/23 08/06/24 Rx (Omnipod 5 G6 Pods (Gen 5) subcutaneous cartridge) insulin pump cartridge,automated #1 ea 02/11/23 08/06/24 Rx dose,BT with controller subcutaneous (Omnipod 5 G6 Intro Kit (Gen 5) subcutaneous cartridge with controller) insulin lispro 100 unit/mL 90 unit (0.9 mL) subcut DAILY #10 03/31/24 08/06/24 Rx subcutaneous solution mL insulin lispro 100 unit/mL 90 unit (0.9 mL) subcut DAILY #10 04/25/24 08/06/24 Rx subcutaneous solution mL levothyroxine 100 mcg tablet 100 mcg PO QAM 08/06/24 08/06/24 History Allergies Allergy/AdvReac Type Severity Reaction Status Date / Time lactose AdvReac Diarrhea Verified 08/06/24 10:56 Vital Signs Vital Signs - 24 hr 08/06/24 10:46 08/06/24 10:54 08/06/24 12:35 Temperature 97.7 F Pulse Rate 105 H 89 Respiratory Rate 20 20 20 Blood Pressure 160/103 H 123/64 Pulse Oximetry 100 100 100 Oxygen Delivery Room Air 08/06/24 12:46 08/06/24 13:28 08/06/24 14:20 Temperature Pulse Rate 108 H 96 103 H Respiratory Rate 20 20 20 Blood Pressure 150/111 H 157/98 H 160/106 H Pulse Oximetry 100 100 100 Oxygen Delivery Exam Narrative: General - Awake and alert. No acute distress Eyes - PERRLA, EOM intact ENT - No thrush, No erythema Neck - No noticeable or palpable swelling Lymph Nodes - No lymphadenopathy Cardiovascular - RRR no m/r/g, no JVD Lungs: Clear to auscultation, No wheezing, use of accessory muscles or crackles Skin - Skin warm and dry, no wounds or rashes Abdomen - Normal bowel sounds, abdomen soft and nontender Extremities - No edema, cyanosis or clubbing. Purple discoloration to hands and knees, patient reports chronic Musculoskeletal - 5/5 strength, normal range of motion, no swollen or erythematous joints. Neurological ? Alert and oriented x 3, CN 2-12 grossly intact. Psych: Normal mood and affect H&P: Results Labs Labs: Short CBC 08/06/24 Range/Units 11:16 WBC 14.4 H (4.5-10.0) K/mm3 Hgb 15.1 H D (12.0-15.0) g/dL Hct 47.4 H (37.0-47.0) % Plt Count 608 H D (150-375) k/mm3 BMP 08/06/24 11:16 Sodium 130 L Potassium 6.6 H* Chloride 101 Carbon Dioxide < 5 L BUN 21 H D Creatinine 1.10 H Glucose 539 H* Calcium 9.0 Liver Function 08/06/24 Range/Units 11:16 Total Bilirubin 0.6 (0.2-1.3) mg/dL AST 24 (14-36) U/L ALT 18 (6-35) U/L Alkaline Phosphatase 219 H (38-126) U/L Albumin 5.1 (3.5-5.1) g/dL Assessment and Plan Assessment and plan (1) Diabetic ketoacidosis: Code(s): E11.10 - Type 2 diabetes mellitus with ketoacidosis without coma Status: Acute Assessment and Plan: Metabolic acidosis with elevated blood sugars on arrival. Started on an insulin drip, transferred to the ICU and continued on the DKA/insulin drip protocol Patient has a dexcom and device is still in place Usually uses insulin pump but hasn't had it on in several days. Seemed to have some confusion and was unable to locate her supplies and insulin after her family left for a vacation --Social work consult --Diabetes ed, sampler pickup consult --Start basal/bolus when gap closed. Have family bring in insulin pump if available --Check BMP q4. Follow metabolic acidosis and electrolytes, beta hydroxybutyrate --Continue Insulin drip per protocol --ICE chips, restart diet when gap closed (2) Patricia thyroiditis: Code(s): E06.3 - Autoimmune thyroiditis Status: Acute Assessment and Plan: Home med: levothyroxine 100mcg daily --Resume home synthroid Quality VTE Prophylaxis VTE prophylaxis: pharmacologic ordered (Lovenox) Hospitalist [facility] Advance Care Plan I have confirmed that the patient's Advanced Care Plan is present, code status is documented, or surrogate decision maker is listed in patient medical record.: Yes Medication Reconciliation I have utilized all available resources to obtain, update and review the patients current medications (includes all prescriptions, OTC, herbals, cannabis, and nutritional supplements).: Yes
[2024-08-06] MEDS: SODIUM CHLORIDE 0.9% IV 1,000 ML 150 ML IV CONT (14:37)
--- NOTE | 2024-08-06 14:42 | P.CONIN_ITS ---
Assessment and Plan Assessment and plan (1) Diabetic ketoacidosis: Code(s): E11.10 - Type 2 diabetes mellitus with ketoacidosis without coma Status: Acute Assessment and Plan: 08/06: Patient presented with generalized weakness, shortness of breath, hyperglycemia. In the ER patient was found to be in DKA with elevated beta hydroxybutyrate, anion gap metabolic acidosis, hyperglycemia with a blood sugar of 539. Patient was given 3 L IV fluid bolus started on insulin infusion per DKA protocol -will give additional IV fluid bolus in the ICU since patient is thirsty -continue insulin infusion per DKA protocol and the IV fluids that go with it -will transition to long-acting insulin and sliding scale insulin once anion gap is closed post -okay for ice chips only (2) Hyperkalemia: Code(s): E87.5 - Hyperkalemia Status: Acute Assessment and Plan: Likely related to metabolic acidosis, will recheck BMP for potassium levels since patient has received adequate was IV fluids and started on insulin infusion (3) Hypothyroidism: Code(s): E03.9 - Hypothyroidism, unspecified Status: Acute Assessment and Plan: Restarted on levothyroxine at her home dose (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, managed as type 1: Onset Date: 2019 Code(s): E13.9 - Other specified diabetes mellitus without complications Status: Acute Assessment and Plan: Will check hemoglobin A1c - (5) Leukocytosis: Code(s): D72.829 - Elevated white blood cell count, unspecified Status: Acute Assessment and Plan: Leukocytosis could be related to DKA, stress, infection -will check UA -chest x-ray did not show any acute cardiopulmonary disease -will also check COVID, influenza and RSV Plan DVT prophylaxis: Lovenox Stress ulcer prophylaxis: Not indicated Nutrition: Ice chips only Code Status: Full code Critical Care Time Spent: 46 minutes Discussed with patient updated with her condition and plan of care. She has had DKA before and she knows the treatment plan and agrees with it. Due to a high probability of clinically significant, life threatening deterioration, the patient required my highest level of preparedness to intervene emergently and I personally spent this critical care time directly and personally managing the patient. This critical care time included obtaining a history; examining the patient; pulse oximetry; ordering and review of studies; arranging urgent treatment with development of a management plan; evaluation of patient's response to treatment; frequent reassessment; and discussions with other providers. It was exclusive of separately billable procedures and treating other patients and teaching time. Please see Assessment and Plan section and the rest of the note for further information on patient assessment and treatment This dictation may have been done utilizing a voice recognition system. Attempts have been made to correct errors. However, there may be uncorrected grammatical, spelling, and recognitions errors present. [employer] Consult Note Consult date: 08/06/24 Reason for consult: Diabetic ketoacidosis, shortness of breath, hyperkalemia, hypovolemia HPI: Madeleine Mendoza is a 39 year old female history of hypothyroidism, diabetes, Raynaud's phenomenon presented the ED on 08/16/2024 with complains of shortness of breath, generalized weakness, hyperglycemia. Patient states that she has not been taking her insulin for about 4 days. She lives with her mother who helps her with her insulin pump, the patient could not find the supplies at the house has says so has not gotten insulin through her pump. Patient is thirsty, had a good urine output. In the ER patient had leukocytosis with a WBC count of 14.5, hemoglobin of 15.1, platelets of 608. ABGs on room air showed a pH of 7.050, pCO2 of 11, PO2 of 135, bicarb of 3. Sodium 130, potassium 6.6, carbon dioxide< 5, BUN 21, creatinine 1.10 (baseline creatinine is 0.4-0.5) blood sugars of 539, beta hydroxybutyrate was 12.20. UA and urine drug screen has been ordered. Chest x-ray did not show any acute cardiopulmonary disease. Patient was given 3 L IV fluid bolus in the ER, started on insulin infusion per DKA protocol and transferred to the ICU for further management Patient seen and examined upon arrival to the ICU, is awake, alert was able to give me the above history. Disheveled appearance. Remains tachycardic, states she is thirsty. Patient did have a good urine output. Remains on insulin infusion. Denies any illicit drug use or alcohol. States she smokes half a packet per day. Apart from shortness of breath, and thirst she denies any other problems. 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, managed as type 1 (2020) Low vitamin B12 level Menorrhagia Raynauds disease Viramontes syndrome Surgical History Surgical History History of tubal ligation Family History Family History Grandparent ALS (amyotrophic lateral sclerosis) Sibling Diabetes mellitus Father Hypertension Cerebrovascular accident Acute myocardial infarction Social History Social History Smoking packs per day: 0.5 Smoking cigarettes per day: 10.0 Years smoked: 10 Smoking pack-years: 5.00 Smoking status: Current every day smoker Second hand tobacco smoke exposure: No Alcohol intake: never Substance use: never Substance use type: marijuana Do You Feel Safe in your Home?: Yes Lack of Transportation: No Lack of Food: Never True Current Housing: I Have Housing Concerned About Future Housing: No Difficulty Paying Gas/Electric Bills: YES Difficulty Paying for Meds: YES Currently Unemployed: No Education: Trade/Vocational Certificate Difficulty w/ Childcare or Family Care: No Additional living arrangements comments: . Has 2 sons. 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. Spiritual care concerns: No Meds Home Medications and Allergies Home Medications ?Medication ?Instructions ?Recorded ?Confirmed ?Type blood sugar diagnostic (OneTouch #300 02/11/23 04/25/24 Rx Verio test strips) blood-glucose meter (OneTouch #1 02/11/23 04/25/24 Rx Verio Reflect Meter) blood-glucose meter,continuous #1 02/11/23 04/25/24 Rx (Dexcom G6 Ruling Machine Feeder) blood-glucose sensor (Dexcom G6 #9 02/11/23 04/25/24 Rx Sensor device) glucagon 1 mg/0.2 mL subcutaneous 1 mg (0.2 mL) subcut ONCE #0.4 mL 02/11/23 04/25/24 Rx auto-injector ([employer] HypoPen 2-Pack) insulin pump cart,automated,BT #45 ea 02/11/23 04/25/24 Rx (Omnipod 5 G6 Pods (Gen 5) subcutaneous cartridge) insulin pump cartridge,automated #1 ea 02/11/23 04/25/24 Rx dose,BT with controller subcutaneous (Omnipod 5 G6 Intro Kit (Gen 5) subcutaneous cartridge with controller) lancets 30 gauge (Onetouch Delica #200 ea 02/11/23 04/25/24 Rx Safety Lancet) pen needle, diabetic 32 gauge x #300 ea 02/11/23 04/25/24 Rx / (BD Ultra-Fine Marlen Pen Needle) insulin lispro 100 unit/mL 90 unit (0.9 mL) subcut DAILY #10 03/31/24 04/25/24 Rx subcutaneous solution mL insulin lispro 100 unit/mL 90 unit (0.9 mL) subcut DAILY #10 04/25/24 Rx subcutaneous solution mL Allergies Allergy/AdvReac Type Severity Reaction Status Date / Time lactose AdvReac Diarrhea Verified 08/06/24 10:56 Vital Signs Vital Signs - 24 hr 08/06/24 10:46 08/06/24 10:54 08/06/24 12:35 Temperature 97.7 F Pulse Rate 105 H 89 Respiratory Rate 20 20 20 Blood Pressure 160/103 H 123/64 Pulse Oximetry 100 100 100 Oxygen Delivery Room Air 08/06/24 12:46 08/06/24 13:28 08/06/24 14:20 Temperature Pulse Rate 108 H 96 103 H Respiratory Rate 20 20 20 Blood Pressure 150/111 H 157/98 H 160/106 H Pulse Oximetry 100 100 100 Oxygen Delivery Exam 2 Narrative: General: Disheveled appearance, cooperative, in no acute distress at this time HEENT:? Pupils are reactive, dry oral mucosa Neck:? Supple Respiratory:? Clear to auscultation bilaterally, no wheezing Cardiac:? S1-S2 normal, tachycardia Abdomen:? Soft, nontender, nondistended, normoactive bowel sounds Extremities:? No edema, palpable pedal pulses Neuro:? Patient is awake, alert, able to give me a history in the follows simple commands. Skin:? Mottling noted around the knees bilaterally Psych:? Anxious Results Labs 08/06/24 11:16 08/06/24 11:16 Labs: Short CBC 08/06/24 Range/Units 11:16 WBC 14.4 H (4.5-10.0) K/mm3 Hgb 15.1 H D (12.0-15.0) g/dL Hct 47.4 H (37.0-47.0) % Plt Count 608 H D (150-375) k/mm3 BMP 08/06/24 11:16 Sodium 130 L Potassium 6.6 H* Chloride 101 Carbon Dioxide < 5 L BUN 21 H D Creatinine 1.10 H Glucose 539 H* Calcium 9.0 Liver Function 08/06/24 Range/Units 11:16 Total Bilirubin 0.6 (0.2-1.3) mg/dL AST 24 (14-36) U/L ALT 18 (6-35) U/L Alkaline Phosphatase 219 H (38-126) U/L Albumin 5.1 (3.5-5.1) g/dL
--- NOTE | 2024-08-06 14:52 | ADMGEN ---
This patient, Madeleine Mendoza, was admitted to Intensive Care Unit-7 at 1416. Patient/family oriented to hospital policies and general routines including ID bracelet, bed and alarms, visiting hours, pain management, procedures, bathroom and other care routines, personal items, smoking policy, room service/diet, and visiting hours. Information on how to activate the Rapid Response Team has been discussed. Patient/Family are encouraged to report perceived risks to care and to ask questions if they do not understand what they are told or what they should do.
[2024-08-06 14:58] LABS: Blood Urea Nitrogen 18 mg/dL (7-17); Calcium 7.9 mg/dL (8.4-10.2); Carbon Dioxide < 5 mmol/L (22-30); Chloride 110 mmol/L (98-107); Estimated CRCL calculation 67 ml/min; Estimated Glomerular Filt Rate > 60; Glucose 348 mg/dL (65-110); Potassium 5.5 mmol/L (3.4-5.0); Sodium 133 mmol/L (137-145)
[2024-08-06] MEDS: LACTATED RINGERS 1,000 ML 999 ML IV CONT (15:08)
[2024-08-06] MEDS: LEVOTHYROXINE SODIUM 100 MCG TABLET PO (15:09)
[2024-08-06] MEDS: ENOXAPARIN 40 MG/0.4 ML SYRINGE SUB-Q (15:09)
[2024-08-06 15:12] LABS: Amphetamine Screen Urine Negative (Negative); Barbiturate Screen Urine Negative (Negative); Benzodiazepines Screen Urine Negative (Negative); Cannabinoid Screen Urine Negative (Negative); Cocaine Screen Urine Negative (Negative); Methadone Screen Urine Negative (Negative); Opiate Screen Urine Negative (Negative); Phencyclidine Screen Urine Negative (Negative)
[2024-08-06 15:19] LABS: Magnesium 1.7 mg/dL (1.6-2.3); Phosphorus 3.8 mg/dL (2.5-4.5)
[2024-08-06 15:24] LABS: Glucose Point of Care 312 mg/dl (65-105)
[2024-08-06 15:24] LABS: Glucose Point of Care 283 mg/dl (65-105)
[2024-08-06 15:37] LABS: Add Urine Microscopic? YES; Appearance Urine Clear (Clear); Bacteria Urine 1+ /hpf; Bilirubin Urine Negative (Negative); Blood Urine Negative (Negative); Color Urine Yellow (Yellow); Glucose Urine UA 3+ mg/dL (Negative); Ketones Urine 4+ mg/dL (Negative); Leukocyte Esterase Ur Negative LEU/UL (Negative); Need Manual Microscopic Reviewed; Nitrate Urine Negative (Negative); Protein Urine 1+ mg/dL (Negative); RBC Urine 0-2 /hpf (0-2); Specific Grav Ur 1.018 (1.001-1.035); Squamous Epithelial Cell Urine Few /hpf (Few); Urobilinogen Urine 0.2 mg/dL (<2.0); WBC Urine 0-5 /hpf (0-3)
[2024-08-06 15:40] LABS: Hemoglobin A1C > 14.0 % (<5.7)
--- NOTE | 2024-08-06 15:56 | PC.NURSE ---
Press Secretary office called at [phone]. Educator out of office. Voicemail left with callback number.
[2024-08-06 16:46] LABS: Glucose Point of Care 292 mg/dl (65-105)
[2024-08-06] MEDS: DEXTROSE 5%/0.45% SOD CHL 1,000 ML 150 ML IV CONT (17:25)
[2024-08-06 17:35] LABS: Glucose Point of Care 228 mg/dl (65-105)
[2024-08-06 18:14] LABS: Glucose Point of Care 201 mg/dl (65-105)
[2024-08-06 18:31] LABS: Influenza A QL RT-PCR Negative (Negative); Influenza B QL RT-PCR Negative (Negative); RSV RNA, RT-PCR Negative (Negative); SARS-CoV-2 RNA PCR Negative (Negative)
[2024-08-06 19:20] LABS: Anion Gap 7 mmol/L (4-12); Blood Urea Nitrogen 16 mg/dL (7-17); Calcium 7.8 mg/dL (8.4-10.2); Carbon Dioxide 13 mmol/L (22-30); Chloride 113 mmol/L (98-107); Estimated CRCL calculation 107 ml/min; Estimated Glomerular Filt Rate > 60; Glucose 202 mg/dL (65-110); Potassium 3.7 mmol/L (3.4-5.0); Sodium 133 mmol/L (137-145)
[2024-08-06] MEDS: KCL 20 MEQ/D5/0.45% SOD CHL 1,000 ML 150 ML IV CONT (19:31)
[2024-08-06 19:37] LABS: Glucose Point of Care 197 mg/dl (65-105)
[2024-08-06 20:18] LABS: Glucose Point of Care 202 mg/dl (65-105)
[2024-08-06] MEDS: MAGNESIUM SULF 2 GM/WATER 50ML 2 GM/50 ML BAG IVPB (20:22)
[2024-08-06 20:43] LABS: MRSA (PCR) DETECTED (NOT DETECTE)
[2024-08-06 21:20] LABS: Glucose Point of Care 243 mg/dl (65-105)
[2024-08-06 22:26] LABS: Glucose Point of Care 233 mg/dl (65-105)
[2024-08-06 23:09] LABS: Anion Gap 4 mmol/L (4-12); Blood Urea Nitrogen 15 mg/dL (7-17); Calcium 7.8 mg/dL (8.4-10.2); Carbon Dioxide 14 mmol/L (22-30); Chloride 113 mmol/L (98-107); Estimated CRCL calculation 130 ml/min; Estimated Glomerular Filt Rate > 60; Glucose 231 mg/dL (65-110); Sodium 131 mmol/L (137-145)
[2024-08-06 23:27] LABS: Glucose Point of Care 237 mg/dl (65-105)
[2024-08-06 23:47] LABS: Potassium 4.1 mmol/L (3.4-5.0)
[2024-08-07] VITALS (9 sets, daily range): BP systolic 92–113; BP diastolic 65–76; PULSE 73–101; RESP 13–19; TEMP 36.6–36.8; O2SAT 99–100; BMI 22.6
[2024-08-07 00:24] LABS: Glucose Point of Care 264 mg/dl (65-105)
--- NOTE | 2024-08-07 01:01 | PC.NURSE ---
Patient's mother, Geneva Watkins, called this RN requesting care coordination consult. Geneva states that patient is unemployed, living with her, and she needs help with utilizing resources.
[2024-08-07 01:44] LABS: Glucose Point of Care 247 mg/dl (65-105)
[2024-08-07 02:32] LABS: Glucose Point of Care 215 mg/dl (65-105)
[2024-08-07 03:01] LABS: Basophils Absolute Auto 0.1 K/mm3 (0.0-0.1); Basophils Percent Auto 0.5 % (0.2-1.2); Eosinophils Absolute Auto 0.2 K/mm3 (0-0.3); Eosinophils Percent Auto 1.5 % (0-4.4); Hematocrit 33.9 % (37.0-47.0); Hemoglobin 11.4 g/dL (12.0-15.0); Immature Granulocyte Absolute 0.05 K/mm3 (0.00-0.031); Immature Granulocyte Percent A 0.5 % (0-0.5); Lymphocytes Absolute Auto 2.04 K/mm3 (0.9-3.2); Lymphocytes Percent Auto 19.5 % (18.3-44.2); Mean Corpuscular HGB Conc 33.6 g/dl (32-36); Mean Corpuscular Hemoglobin 26.8 pg (26-34); Mean Corpuscular Volume 79.8 fl (80-100); Mean Platelet Volume 9.7 fl (7.4-10.4); Monocytes Absolute Auto 0.8 K/mm3 (0.1-0.6); Monocytes Percent Auto 7.8 % (2.6-8.5); Neutrophils Absolute Auto 7.4 K/mm3 (1.3-6.7); Neutrophils Percent Auto 70.2 % (45.5-73.1); Platelet Count Result 379 k/mm3 (150-375); Red Blood Count 4.25 M/mm3 (4.2-5.4); Red Cell Distribution Width 13.7 % (11.5-14.5); White Blood Count 10.5 K/mm3 (4.5-10.0)
[2024-08-07 03:13] LABS: Lactic Acid Reflex 0.8 mmol/L (0.7-2.0)
[2024-08-07 03:14] LABS: Alanine Aminotransferase 10 U/L (6-35); Albumin Level 2.9 g/dL (3.5-5.1); Alkaline Phosphatase 120 U/L (38-126); Anion Gap 1 mmol/L (4-12); Aspartate Amino Transferase 18 U/L (14-36); Bilirubin,Total 0.3 mg/dL (0.2-1.3); Blood Urea Nitrogen 15 mg/dL (7-17); Calcium 7.7 mg/dL (8.4-10.2); Carbon Dioxide 16 mmol/L (22-30); Chloride 114 mmol/L (98-107); Estimated CRCL calculation 130 ml/min; Estimated Glomerular Filt Rate > 60; Glucose 210 mg/dL (65-110); Magnesium 2.2 mg/dL (1.6-2.3); Phosphorus 1.9 mg/dL (2.5-4.5); Potassium 3.6 mmol/L (3.4-5.0); Sodium 131 mmol/L (137-145)
[2024-08-07 03:33] LABS: Glucose Point of Care 232 mg/dl (65-105)
[2024-08-07] MEDS: KCL 20 MEQ/D5/0.45% SOD CHL 1,000 ML 150 ML IV CONT (03:35)
[2024-08-07 04:50] LABS: Glucose Point of Care 231 mg/dl (65-105)
[2024-08-07 05:34] LABS: Glucose Point of Care 226 mg/dl (65-105)
[2024-08-07 06:35] LABS: Glucose Point of Care 232 mg/dl (65-105)
[2024-08-07 07:30] LABS: Glucose Point of Care 234 mg/dl (65-105)
[2024-08-07 08:39] LABS: Anion Gap 0 mmol/L (4-12); Blood Urea Nitrogen 14 mg/dL (7-17); Calcium 7.8 mg/dL (8.4-10.2); Carbon Dioxide 18 mmol/L (22-30); Chloride 113 mmol/L (98-107); Estimated CRCL calculation 130 ml/min; Estimated Glomerular Filt Rate > 60; Glucose 234 mg/dL (65-110); Potassium 3.8 mmol/L (3.4-5.0); Sodium 131 mmol/L (137-145)
[2024-08-07 08:40] LABS: Glucose Point of Care 228 mg/dl (65-105)
[2024-08-07] MEDS: POTASSIUM/PHOSPHORUS/SODIUM 1.5 GM PACKET 1 PACKET PO (08:46)
[2024-08-07] MEDS: POTASSIUM CHLORIDE 20 MEQ PACKET (FOR LIQUID) 40 MEQ PO (08:47)
[2024-08-07] MEDS: INSULIN GLARGINE (*BKC) 100 UNITS/ML 35 UNITS SUB-Q (09:51)
[2024-08-07 10:01] LABS: Glucose Point of Care 265 mg/dl (65-105)
[2024-08-07] MEDS: INSULIN ASPART (*BKC) 100 UNITS/ML SUB-Q ×3 (11:54→15:58)
[2024-08-07 11:59] LABS: Glucose Point of Care 334 mg/dl (65-105)
--- NOTE | 2024-08-07 13:27 | PCFNICU ---
ICU Rounding Note: Pt current nutrition is DBCC. Last recorded weight is 60 kg, stable. Bowel Motility: last reported BM 08/06 Labs Reviewed: Glu 234, Cr 0.4, HbA1c > 14%, Alb 2.9 Meds Noted:Lantus,NovoLog Skin: WNL Additional Notes: DKA admit. Patient off insulin drip diet order advanced to a DBCC diet. Agree with diet orders at this time. Will continue to monitor with any further nutritional needs. Patient instruction attached. Following daily in ICU rounds.
--- NOTE | 2024-08-07 13:41 | WPDINTPN ---
Progress Note: A&P Assessment and Plan (1) Diabetic ketoacidosis: Code(s): E11.10 - Type 2 diabetes mellitus with ketoacidosis without coma Status: Acute Assessment and Plan: 08/06: Patient presented with generalized weakness, shortness of breath, hyperglycemia. In the ER patient was found to be in DKA with elevated beta hydroxybutyrate, anion gap metabolic acidosis, hyperglycemia with a blood sugar of 539. Patient was given 4 L of IV fluids since admission in the ER and ICU -anion gap has closed, will transition to long-acting insulin and sliding scale insulin -diabetic diet -Accu-Cheks and sliding scale insulin (2) Hyperkalemia: Code(s): E87.5 - Hyperkalemia Status: Acute Assessment and Plan: RESOLVED Likely related to metabolic acidosis, will recheck BMP for potassium levels since patient has received adequate was IV fluids and started on insulin infusion (3) Hypothyroidism: Code(s): E03.9 - Hypothyroidism, unspecified Status: Acute Assessment and Plan: Restarted on levothyroxine at her home dose (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, managed as type 1: Onset Date: 2019 Code(s): E13.9 - Other specified diabetes mellitus without complications Status: Acute Assessment and Plan: HEMOGLOBIN A1C > 14.0 -appreciate senior software engineering manager evaluation and recommendations which will be followed -appreciate dietitian following the patient (5) Leukocytosis: Code(s): D72.829 - Elevated white blood cell count, unspecified Status: Acute Assessment and Plan: Leukocytosis could be related to DKA, stress, infection -UA was negative for infection -chest x-ray did not show any acute cardiopulmonary disease - COVID, influenza and RSV were negative -leukocytosis improving likely related to stress, DKA Plan DVT prophylaxis: Lovenox Stress ulcer prophylaxis: Not indicated Nutrition: Will start diabetic diet Code Status: Full code Critical Care Time Spent: 31 minutes Patient may transfer out of the ICU Discussed with patient updated with her condition and plan of care. She has had DKA before and she knows the treatment plan and agrees with it. Due to a high probability of clinically significant, life threatening deterioration, the patient required my highest level of preparedness to intervene emergently and I personally spent this critical care time directly and personally managing the patient. This critical care time included obtaining a history; examining the patient; pulse oximetry; ordering and review of studies; arranging urgent treatment with development of a management plan; evaluation of patient's response to treatment; frequent reassessment; and discussions with other providers. It was exclusive of separately billable procedures and treating other patients and teaching time. Please see Assessment and Plan section and the rest of the note for further information on patient assessment and treatment This dictation may have been done utilizing a voice recognition system. Attempts have been made to correct errors. However, there may be uncorrected grammatical, spelling, and recognitions errors present. Subjective Date/time seen: 08/07/24 13:41 Interval history: Reason for consult: Diabetic ketoacidosis, shortness of breath, hyperkalemia, hyponatremia, nausea 08/07/2024: Patient seen and examined the ICU, denies any abdominal pain, nausea, vomiting, shortness of breath, chest pain. Anion gap is closed, will transition patient to long-acting insulin and sliding scale insulin. Hemodynamically stable, adequate urine output, afebrile Review of Systems Review of Systems: All systems reviewed & are unremarkable except as noted in HPI and below Exam Narrative: General: Disheveled appearance, cooperative, in no acute distress at this time HEENT:? Pupils are reactive, dry oral mucosa Neck:? Supple Respiratory:? Clear to auscultation bilaterally, no wheezing Cardiac:? S1-S2 normal, tachycardia Abdomen:? Soft, nontender, nondistended, normoactive bowel sounds Extremities:? No edema, palpable pedal pulses Neuro:? Patient is awake, alert, able to give me a history in the follows simple commands. Skin:? Mottling much improved around the knees Psych:? Less anxious more Objective Data Vital Signs Vital Signs: Vital Signs - 24 hr 08/06/24 14:16 08/06/24 14:20 08/06/24 16:00 Temperature 98 F 97.7 F Pulse Rate 97 103 H 102 H Respiratory Rate 17 20 15 Blood Pressure 151/97 H 160/106 H 148/95 H Pulse Oximetry 100 100 100 Oxygen Delivery Fraction of Inspired Oxygen 08/06/24 16:00 08/06/24 18:00 08/06/24 18:00 Temperature Pulse Rate 100 112 H 110 H Respiratory Rate 12 Blood Pressure 112/79 Pulse Oximetry 100 Oxygen Delivery Fraction of Inspired Oxygen 08/06/24 20:00 08/06/24 20:00 08/06/24 20:00 Temperature 98.0 F Pulse Rate 100 96 Respiratory Rate 14 Blood Pressure 121/72 Pulse Oximetry 99 99 Oxygen Delivery Room Air Fraction of Inspired Oxygen 08/06/24 22:00 08/06/24 22:00 08/07/24 00:00 Temperature 97.9 F Pulse Rate 95 95 88 Respiratory Rate 15 19 Blood Pressure 116/69 113/68 Pulse Oximetry 99 100 Oxygen Delivery Fraction of Inspired Oxygen 08/07/24 00:00 08/07/24 00:00 08/07/24 02:00 Temperature Pulse Rate 101 H 94 Respiratory Rate 13 Blood Pressure 102/70 Pulse Oximetry 99 100 Oxygen Delivery Room Air Fraction of Inspired Oxygen 08/07/24 02:00 08/07/24 03:38 08/07/24 04:00 Temperature 97.9 F Pulse Rate 94 90 Respiratory Rate 13 Blood Pressure 107/71 Pulse Oximetry 100 99 Oxygen Delivery Room Air Fraction of Inspired Oxygen 08/07/24 04:00 08/07/24 06:00 08/07/24 06:00 Temperature Pulse Rate 90 81 85 Respiratory Rate 15 Blood Pressure 100/65 Pulse Oximetry 100 Oxygen Delivery Fraction of Inspired Oxygen 08/07/24 08:00 08/07/24 08:00 08/07/24 08:00 Temperature 98.0 F Pulse Rate 81 81 81 Respiratory Rate 15 15 Blood Pressure 92/69 L Pulse Oximetry 99 99 Oxygen Delivery Room Air Fraction of Inspired Oxygen 08/07/24 09:14 08/07/24 10:00 08/07/24 10:00 Temperature Pulse Rate 88 88 Respiratory Rate 14 Blood Pressure 106/76 Pulse Oximetry 99 100 Oxygen Delivery Room Air Fraction of Inspired Oxygen 21 Intake/Output Intake/Output: Intake & Output 08/04/24 08/05/24 08/06/24 08/07/24 23:59 23:59 23:59 23:59 Intake Total 3894.7 1205.3 Output Total 1800 550 Balance 2094.7 655.3 Meds/Results Medications: Active Medications Generic Name Dose Route Start Last Admin Trade Name Freq PRN Reason Stop Dose Admin Dextrose 12.5 gm 08/07/24 13:07 Dextrose 50% 25 Gm/50 Ml Syringe IV PUSH PRN PRN Hypoglycemia Protocol Enoxaparin Sodium 40 mg 08/06/24 14:40 08/07/24 08:51 Enoxaparin 40 Mg/0.4 Ml Syringe SUB-Q Not Given DAILY TOMY Glucagon 1 mg 08/07/24 13:07 Glucagon For Inj 1 Mg Vial IM PRN PRN Hypoglycemia Protocol Glucose 15 gm 08/07/24 13:07 Glucose Oral Gel 15 Gm Of Glucse In 37.5 Gm Tube PO PRN PRN Hypoglycemia Protocol Dextrose/Sodium Chloride 1,000 mls @ 150 mls/hr 08/06/24 14:20 08/06/24 19:32 Dextrose 5% Sodium Chloride 0.45% IV CONT 0 mls/hr .Q6H40M TOMY Infusion Sodium Chloride 1,000 mls @ 150 mls/hr 08/06/24 14:30 Normal Saline Iv IV CONT .Q6H40M TOMY Dextrose 1,000 mls @ 100 mls/hr 08/07/24 13:07 Dextrose 5% 1,000 Ml IVPB PRN PRN Hypoglycemia Protocol Insulin Aspart 2 - 5 units 08/07/24 17:00 Insulin Aspart (*Bkc) 100 Units/Ml SUB-Q TIDWM [facility] Protocol Insulin Aspart 1 - 2 units 08/07/24 21:00 Insulin Aspart (*Bkc) 100 Units/Ml SUB-Q HS [facility] Protocol Insulin Aspart 4 units 08/07/24 17:00 Insulin Aspart (*Bkc) 100 Units/Ml 0.067 units/kg (4 units) SUB-Q TIDWM [facility] Insulin Glargine 35 units 08/07/24 09:25 08/07/24 09:51 Insulin Glargine (*Bkc) 100 Units/Ml SUB-Q 35 units DAILY [facility] Administration Levothyroxine Sodium 100 mcg 08/06/24 14:50 08/07/24 06:23 Levothyroxine Sodium 100 Mcg Tablet PO Not Given DAILY@0630 [facility] Ondansetron HCl 4 mg 08/06/24 12:55 Ondansetron Inj 4 Mg/2 Ml Vial IV PUSH Q4H PRN Nausea Radiology Results: ITS Impressions Chest X-Ray 08/06/24 11:13 IMPRESSION: No active cardiopulmonary disease Labs Labs: Laboratory Results - last 24 hr 08/06/24 08/06/24 08/06/24 11:16 14:28 14:33 WBC RBC Hgb Hct MCV MCH MCHC RDW Plt Count MPV Immature Gran % (Auto) Neut % (Auto) Lymph % (Auto) [place] % (Auto) Eos % (Auto) Baso % (Auto) Lymph # (Auto) [place] # (Auto) Eos # (Auto) Baso # (Auto) Abs Immat Gran (auto) Absolute Neuts (auto) Absolute Nucleated RBC Nucleated RBC % Sodium 133 L Potassium 5.5 H Chloride 110 H Carbon Dioxide < 5 L Anion Gap BUN 18 H Creatinine 0.80 Estim Creat Clear Calc 67 Estimated GFR > 60 Glucose 348 H POC Capillary Glucose 312 H Hemoglobin A1c > 14.0 H Lactic Acid Calcium 7.9 L Phosphorus 3.8 Magnesium 1.7 Total Bilirubin AST ALT Alkaline Phosphatase Total Protein Albumin Urine Color Urine Appearance Urine pH Ur Specific [place] Urine Protein Urine Glucose (UA) Urine Ketones Ur Blood (Man) Urine Nitrate Urine Bilirubin Urine Urobilinogen Add Ur Microanalysis Leukocyte Esterase Rfl Urine RBC Urine WBC Ur Squamous Epith Cells Urine Bacteria Urine Casts Nasal MRSA (PCR) Urine Opiates Screen Urine Methadone Screen Ur Barbiturates Screen Ur Phencyclidine Scrn Ur Amphetamine Screen U Benzodiazepines Scrn Urine Cocaine Screen U Cannabinoids Screen Influenza A (RT-PCR) Influenza B (RT-PCR) RSV (RT-PCR) SARS-CoV-2 RNA (RT-PCR) 08/06/24 08/06/24 08/06/24 14:46 14:46 14:46 WBC RBC Hgb Hct MCV MCH MCHC RDW Plt Count MPV Immature Gran % (Auto) Neut % (Auto) Lymph % (Auto) [place] % (Auto) Eos % (Auto) Baso % (Auto) Lymph # (Auto) [place] # (Auto) Eos # (Auto) Baso # (Auto) Abs Immat Gran (auto) Absolute Neuts (auto) Absolute Nucleated RBC Nucleated RBC % Sodium Potassium Chloride Carbon Dioxide Anion Gap BUN Creatinine Estim Creat Clear Calc Estimated GFR Glucose POC Capillary Glucose Hemoglobin A1c Lactic Acid Calcium Phosphorus Magnesium Total Bilirubin AST ALT Alkaline Phosphatase Total Protein Albumin Urine Color Yellow Urine Appearance Clear Urine pH 5.0 Ur Specific [place] 1.018 Urine Protein 1+ H Urine Glucose (UA) 3+ H Urine Ketones 4+ H Ur Blood (Man) Negative Urine Nitrate Negative Urine Bilirubin Negative Urine Urobilinogen 0.2 Add Ur Microanalysis Reviewed Leukocyte Esterase Rfl Negative Urine RBC 0-2 Urine WBC 0-5 Ur Squamous Epith Cells Few Urine Bacteria 1+ H Urine Casts 11-20 Nasal MRSA (PCR) Urine Opiates Screen Negative Cancelled Urine Methadone Screen Negative Cancelled Ur Barbiturates Screen Negative Ur Phencyclidine Scrn Ur Amphetamine Screen U Benzodiazepines Scrn Urine Cocaine Screen U Cannabinoids Screen Influenza A (RT-PCR) Influenza B (RT-PCR) RSV (RT-PCR) SARS-CoV-2 RNA (RT-PCR) 08/06/24 08/06/24 08/06/24 14:46 14:46 14:46 WBC RBC Hgb Hct MCV MCH MCHC RDW Plt Count MPV Immature Gran % (Auto) Neut % (Auto) Lymph % (Auto) [place] % (Auto) Eos % (Auto) Baso % (Auto) Lymph # (Auto) [place] # (Auto) Eos # (Auto) Baso # (Auto) Abs Immat Gran (auto) Absolute Neuts (auto) Absolute Nucleated RBC Nucleated RBC % Sodium Potassium Chloride Carbon Dioxide Anion Gap BUN Creatinine Estim Creat Clear Calc Estimated GFR Glucose POC Capillary Glucose Hemoglobin A1c Lactic Acid Calcium Phosphorus Magnesium Total Bilirubin AST ALT Alkaline Phosphatase Total Protein Albumin Urine Color Urine Appearance Urine pH Ur Specific [place] Urine Protein Urine Glucose (UA) Urine Ketones Ur Blood (Man) Urine Nitrate Urine Bilirubin Urine Urobilinogen Add Ur Microanalysis Leukocyte Esterase Rfl Urine RBC Urine WBC Ur Squamous Epith Cells Urine Bacteria Urine Casts Nasal MRSA (PCR) Urine Opiates Screen Urine Methadone Screen Ur Barbiturates Screen Cancelled Ur Phencyclidine Scrn Negative Cancelled Ur Amphetamine Screen Negative Cancelled U Benzodiazepines Scrn Negative Urine Cocaine Screen U Cannabinoids Screen Influenza A (RT-PCR) Influenza B (RT-PCR) RSV (RT-PCR) SARS-CoV-2 RNA (RT-PCR) 08/06/24 08/06/24 08/06/24 14:46 14:46 14:46 WBC RBC Hgb Hct MCV MCH MCHC RDW Plt Count MPV Immature Gran % (Auto) Neut % (Auto) Lymph % (Auto) [place] % (Auto) Eos % (Auto) Baso % (Auto) Lymph # (Auto) [place] # (Auto) Eos # (Auto) Baso # (Auto) Abs Immat Gran (auto) Absolute Neuts (auto) Absolute Nucleated RBC Nucleated RBC % Sodium Potassium Chloride Carbon Dioxide Anion Gap BUN Creatinine Estim Creat Clear Calc Estimated GFR Glucose POC Capillary Glucose Hemoglobin A1c Lactic Acid Calcium Phosphorus Magnesium Total Bilirubin AST ALT Alkaline Phosphatase Total Protein Albumin Urine Color Urine Appearance Urine pH Ur Specific [place] Urine Protein Urine Glucose (UA) Urine Ketones Ur Blood (Man) Urine Nitrate Urine Bilirubin Urine Urobilinogen Add Ur Microanalysis Leukocyte Esterase Rfl Urine RBC Urine WBC Ur Squamous Epith Cells Urine Bacteria Urine Casts Nasal MRSA (PCR) Urine Opiates Screen Urine Methadone Screen Ur Barbiturates Screen Ur Phencyclidine Scrn Ur Amphetamine Screen U Benzodiazepines Scrn Cancelled Urine Cocaine Screen Negative Cancelled U Cannabinoids Screen Negative Cancelled Influenza A (RT-PCR) Influenza B (RT-PCR) RSV (RT-PCR) SARS-CoV-2 RNA (RT-PCR) 08/06/24 08/06/24 08/06/24 15:15 16:17 17:21 WBC RBC Hgb Hct MCV MCH MCHC RDW Plt Count MPV Immature Gran % (Auto) Neut % (Auto) Lymph % (Auto) [place] % (Auto) Eos % (Auto) Baso % (Auto) Lymph # (Auto) [place] # (Auto) Eos # (Auto) Baso # (Auto) Abs Immat Gran (auto) Absolute Neuts (auto) Absolute Nucleated RBC Nucleated RBC % Sodium Potassium Chloride Carbon Dioxide Anion Gap BUN Creatinine Estim Creat Clear Calc Estimated GFR Glucose POC Capillary Glucose 283 H 292 H 228 H Hemoglobin A1c Lactic Acid Calcium Phosphorus Magnesium Total Bilirubin AST ALT Alkaline Phosphatase Total Protein Albumin Urine Color Urine Appearance Urine pH Ur Specific [place] Urine Protein Urine Glucose (UA) Urine Ketones Ur Blood (Man) Urine Nitrate Urine Bilirubin Urine Urobilinogen Add Ur Microanalysis Leukocyte Esterase Rfl Urine RBC Urine WBC Ur Squamous Epith Cells Urine Bacteria Urine Casts Nasal MRSA (PCR) Urine Opiates Screen Urine Methadone Screen Ur Barbiturates Screen Ur Phencyclidine Scrn Ur Amphetamine Screen U Benzodiazepines Scrn Urine Cocaine Screen U Cannabinoids Screen Influenza A (RT-PCR) Influenza B (RT-PCR) RSV (RT-PCR) SARS-CoV-2 RNA (RT-PCR) 08/06/24 08/06/24 08/06/24 17:31 18:11 18:52 WBC RBC Hgb Hct MCV MCH MCHC RDW Plt Count MPV Immature Gran % (Auto) Neut % (Auto) Lymph % (Auto) [place] % (Auto) Eos % (Auto) Baso % (Auto) Lymph # (Auto) [place] # (Auto) Eos # (Auto) Baso # (Auto) Abs Immat Gran (auto) Absolute Neuts (auto) Absolute Nucleated RBC Nucleated RBC % Sodium 133 L Potassium 3.7 Chloride 113 H Carbon Dioxide 13 L Anion Gap 7 BUN 16 Creatinine 0.50 L Estim Creat Clear Calc 107 Estimated GFR > 60 Glucose 202 H POC Capillary Glucose 201 H Hemoglobin A1c Lactic Acid Calcium 7.8 L Phosphorus Magnesium Total Bilirubin AST ALT Alkaline Phosphatase Total Protein Albumin Urine Color Urine Appearance Urine pH Ur Specific [place] Urine Protein Urine Glucose (UA) Urine Ketones Ur Blood (Man) Urine Nitrate Urine Bilirubin Urine Urobilinogen Add Ur Microanalysis Leukocyte Esterase Rfl Urine RBC Urine WBC Ur Squamous Epith Cells Urine Bacteria Urine Casts Nasal MRSA (PCR) Detected A* Urine Opiates Screen Urine Methadone Screen Ur Barbiturates Screen Ur Phencyclidine Scrn Ur Amphetamine Screen U Benzodiazepines Scrn Urine Cocaine Screen U Cannabinoids Screen Influenza A (RT-PCR) Negative Influenza B (RT-PCR) Negative RSV (RT-PCR) Negative SARS-CoV-2 RNA (RT-PCR) Negative 08/06/24 08/06/24 08/06/24 19:22 20:16 21:18 WBC RBC Hgb Hct MCV MCH MCHC RDW Plt Count MPV Immature Gran % (Auto) Neut % (Auto) Lymph % (Auto) [place] % (Auto) Eos % (Auto) Baso % (Auto) Lymph # (Auto) [place] # (Auto) Eos # (Auto) Baso # (Auto) Abs Immat Gran (auto) Absolute Neuts (auto) Absolute Nucleated RBC Nucleated RBC % Sodium Potassium Chloride Carbon Dioxide Anion Gap BUN Creatinine Estim Creat Clear Calc Estimated GFR Glucose POC Capillary Glucose 197 H 202 H 243 H Hemoglobin A1c Lactic Acid Calcium Phosphorus Magnesium Total Bilirubin AST ALT Alkaline Phosphatase Total Protein Albumin Urine Color Urine Appearance Urine pH Ur Specific [place] Urine Protein Urine Glucose (UA) Urine Ketones Ur Blood (Man) Urine Nitrate Urine Bilirubin Urine Urobilinogen Add Ur Microanalysis Leukocyte Esterase Rfl Urine RBC Urine WBC Ur Squamous Epith Cells Urine Bacteria Urine Casts Nasal MRSA (PCR) Urine Opiates Screen Urine Methadone Screen Ur Barbiturates Screen Ur Phencyclidine Scrn Ur Amphetamine Screen U Benzodiazepines Scrn Urine Cocaine Screen U Cannabinoids Screen Influenza A (RT-PCR) Influenza B (RT-PCR) RSV (RT-PCR) SARS-CoV-2 RNA (RT-PCR) 08/06/24 08/06/24 08/06/24 22:22 22:47 23:21 WBC RBC Hgb Hct MCV MCH MCHC RDW Plt Count MPV Immature Gran % (Auto) Neut % (Auto) Lymph % (Auto) [place] % (Auto) Eos % (Auto) Baso % (Auto) Lymph # (Auto) [place] # (Auto) Eos # (Auto) Baso # (Auto) Abs Immat Gran (auto) Absolute Neuts (auto) Absolute Nucleated RBC Nucleated RBC % Sodium 131 L Potassium 4.1 Chloride 113 H Carbon Dioxide 14 L Anion Gap 4 BUN 15 Creatinine 0.40 L Estim Creat Clear Calc 130 Estimated GFR > 60 Glucose 231 H POC Capillary Glucose 233 H 237 H Hemoglobin A1c Lactic Acid Calcium 7.8 L Phosphorus Magnesium Total Bilirubin AST ALT Alkaline Phosphatase Total Protein Albumin Urine Color Urine Appearance Urine pH Ur Specific [place] Urine Protein Urine Glucose (UA) Urine Ketones Ur Blood (Man) Urine Nitrate Urine Bilirubin Urine Urobilinogen Add Ur Microanalysis Leukocyte Esterase Rfl Urine RBC Urine WBC Ur Squamous Epith Cells Urine Bacteria Urine Casts Nasal MRSA (PCR) Urine Opiates Screen Urine Methadone Screen Ur Barbiturates Screen Ur Phencyclidine Scrn Ur Amphetamine Screen U Benzodiazepines Scrn Urine Cocaine Screen U Cannabinoids Screen Influenza A (RT-PCR) Influenza B (RT-PCR) RSV (RT-PCR) SARS-CoV-2 RNA (RT-PCR) 08/07/24 08/07/24 08/07/24 00:22 01:38 02:30 WBC RBC Hgb Hct MCV MCH MCHC RDW Plt Count MPV Immature Gran % (Auto) Neut % (Auto) Lymph % (Auto) [place] % (Auto) Eos % (Auto) Baso % (Auto) Lymph # (Auto) [place] # (Auto) Eos # (Auto) Baso # (Auto) Abs Immat Gran (auto) Absolute Neuts (auto) Absolute Nucleated RBC Nucleated RBC % Sodium Potassium Chloride Carbon Dioxide Anion Gap BUN Creatinine Estim Creat Clear Calc Estimated GFR Glucose POC Capillary Glucose 264 H 247 H 215 H Hemoglobin A1c Lactic Acid Calcium Phosphorus Magnesium Total Bilirubin AST ALT Alkaline Phosphatase Total Protein Albumin Urine Color Urine Appearance Urine pH Ur Specific [place] Urine Protein Urine Glucose (UA) Urine Ketones Ur Blood (Man) Urine Nitrate Urine Bilirubin Urine Urobilinogen Add Ur Microanalysis Leukocyte Esterase Rfl Urine RBC Urine WBC Ur Squamous Epith Cells Urine Bacteria Urine Casts Nasal MRSA (PCR) Urine Opiates Screen Urine Methadone Screen Ur Barbiturates Screen Ur Phencyclidine Scrn Ur Amphetamine Screen U Benzodiazepines Scrn Urine Cocaine Screen U Cannabinoids Screen Influenza A (RT-PCR) Influenza B (RT-PCR) RSV (RT-PCR) SARS-CoV-2 RNA (RT-PCR) 08/07/24 08/07/24 08/07/24 02:52 03:31 04:48 WBC 10.5 H RBC 4.25 Hgb 11.4 L D Hct 33.9 L MCV 79.8 L D MCH 26.8 MCHC 33.6 RDW 13.7 Plt Count 379 H MPV 9.7 Immature Gran % (Auto) 0.5 Neut % (Auto) 70.2 Lymph % (Auto) 19.5 [place] % (Auto) 7.8 Eos % (Auto) 1.5 Baso % (Auto) 0.5 Lymph # (Auto) 2.04 [place] # (Auto) 0.8 H Eos # (Auto) 0.2 Baso # (Auto) 0.1 Abs Immat Gran (auto) 0.05 H Absolute Neuts (auto) 7.4 H Absolute Nucleated RBC 0.000 Nucleated RBC % 0.0 Sodium 131 L Potassium 3.6 Chloride 114 H Carbon Dioxide 16 L Anion Gap 1 L BUN 15 Creatinine 0.40 L Estim Creat Clear Calc 130 Estimated GFR > 60 Glucose 210 H POC Capillary Glucose 232 H 231 H Hemoglobin A1c Lactic Acid 0.8 Calcium 7.7 L Phosphorus 1.9 L Magnesium 2.2 Total Bilirubin 0.3 AST 18 ALT 10 Alkaline Phosphatase 120 Total Protein 6.0 L Albumin 2.9 L Urine Color Urine Appearance Urine pH Ur Specific [place] Urine Protein Urine Glucose (UA) Urine Ketones Ur Blood (Man) Urine Nitrate Urine Bilirubin Urine Urobilinogen Add Ur Microanalysis Leukocyte Esterase Rfl Urine RBC Urine WBC Ur Squamous Epith Cells Urine Bacteria Urine Casts Nasal MRSA (PCR) Urine Opiates Screen Urine Methadone Screen Ur Barbiturates Screen Ur Phencyclidine Scrn Ur Amphetamine Screen U Benzodiazepines Scrn Urine Cocaine Screen U Cannabinoids Screen Influenza A (RT-PCR) Influenza B (RT-PCR) RSV (RT-PCR) SARS-CoV-2 RNA (RT-PCR) 08/07/24 08/07/24 08/07/24 05:31 06:26 07:28 WBC RBC Hgb Hct MCV MCH MCHC RDW Plt Count MPV Immature Gran % (Auto) Neut % (Auto) Lymph % (Auto) [place] % (Auto) Eos % (Auto) Baso % (Auto) Lymph # (Auto) [place] # (Auto) Eos # (Auto) Baso # (Auto) Abs Immat Gran (auto) Absolute Neuts (auto) Absolute Nucleated RBC Nucleated RBC % Sodium Potassium Chloride Carbon Dioxide Anion Gap BUN Creatinine Estim Creat Clear Calc Estimated GFR Glucose POC Capillary Glucose 226 H 232 H 234 H Hemoglobin A1c Lactic Acid Calcium Phosphorus Magnesium Total Bilirubin AST ALT Alkaline Phosphatase Total Protein Albumin Urine Color Urine Appearance Urine pH Ur Specific [place] Urine Protein Urine Glucose (UA) Urine Ketones Ur Blood (Man) Urine Nitrate Urine Bilirubin Urine Urobilinogen Add Ur Microanalysis Leukocyte Esterase Rfl Urine RBC Urine WBC Ur Squamous Epith Cells Urine Bacteria Urine Casts Nasal MRSA (PCR) Urine Opiates Screen Urine Methadone Screen Ur Barbiturates Screen Ur Phencyclidine Scrn Ur Amphetamine Screen U Benzodiazepines Scrn Urine Cocaine Screen U Cannabinoids Screen Influenza A (RT-PCR) Influenza B (RT-PCR) RSV (RT-PCR) SARS-CoV-2 RNA (RT-PCR) 08/07/24 08/07/24 08/07/24 08:20 08:38 09:58 WBC RBC Hgb Hct MCV MCH MCHC RDW Plt Count MPV Immature Gran % (Auto) Neut % (Auto) Lymph % (Auto) [place] % (Auto) Eos % (Auto) Baso % (Auto) Lymph # (Auto) [place] # (Auto) Eos # (Auto) Baso # (Auto) Abs Immat Gran (auto) Absolute Neuts (auto) Absolute Nucleated RBC Nucleated RBC % Sodium 131 L Potassium 3.8 Chloride 113 H Carbon Dioxide 18 L Anion Gap 0 L BUN 14 Creatinine 0.40 L Estim Creat Clear Calc 130 Estimated GFR > 60 Glucose 234 H POC Capillary Glucose 228 H 265 H Hemoglobin A1c Lactic Acid Calcium 7.8 L Phosphorus Magnesium Total Bilirubin AST ALT Alkaline Phosphatase Total Protein Albumin Urine Color Urine Appearance Urine pH Ur Specific [place] Urine Protein Urine Glucose (UA) Urine Ketones Ur Blood (Man) Urine Nitrate Urine Bilirubin Urine Urobilinogen Add Ur Microanalysis Leukocyte Esterase Rfl Urine RBC Urine WBC Ur Squamous Epith Cells Urine Bacteria Urine Casts Nasal MRSA (PCR) Urine Opiates Screen Urine Methadone Screen Ur Barbiturates Screen Ur Phencyclidine Scrn Ur Amphetamine Screen U Benzodiazepines Scrn Urine Cocaine Screen U Cannabinoids Screen Influenza A (RT-PCR) Influenza B (RT-PCR) RSV (RT-PCR) SARS-CoV-2 RNA (RT-PCR) 08/07/24 11:50 WBC RBC Hgb Hct MCV MCH MCHC RDW Plt Count MPV Immature Gran % (Auto) Neut % (Auto) Lymph % (Auto) [place] % (Auto) Eos % (Auto) Baso % (Auto) Lymph # (Auto) [place] # (Auto) Eos # (Auto) Baso # (Auto) Abs Immat Gran (auto) Absolute Neuts (auto) Absolute Nucleated RBC Nucleated RBC % Sodium Potassium Chloride Carbon Dioxide Anion Gap BUN Creatinine Estim Creat Clear Calc Estimated GFR Glucose POC Capillary Glucose 334 H Hemoglobin A1c Lactic Acid Calcium Phosphorus Magnesium Total Bilirubin AST ALT Alkaline Phosphatase Total Protein Albumin Urine Color Urine Appearance Urine pH Ur Specific [place] Urine Protein Urine Glucose (UA) Urine Ketones Ur Blood (Man) Urine Nitrate Urine Bilirubin Urine Urobilinogen Add Ur Microanalysis Leukocyte Esterase Rfl Urine RBC Urine WBC Ur Squamous Epith Cells Urine Bacteria Urine Casts Nasal MRSA (PCR) Urine Opiates Screen Urine Methadone Screen Ur Barbiturates Screen Ur Phencyclidine Scrn Ur Amphetamine Screen U Benzodiazepines Scrn Urine Cocaine Screen U Cannabinoids Screen Influenza A (RT-PCR) Influenza B (RT-PCR) RSV (RT-PCR) SARS-CoV-2 RNA (RT-PCR) Quality VTE Prophylaxis VTE prophylaxis: pharmacologic ordered (Lovenox)
[2024-08-07 16:08] LABS: Glucose Point of Care 302 mg/dl (65-105)
--- NOTE | 2024-08-07 19:55 | PC.NURSE ---
Pt called out at shift change asking for crackers. Staff was in shift report. Pt began yelling out. Pt had ordered a 2nd dinner tray that contained a grilled cheese, large salad, crackers, 6 packets of peanut butter, 2 regular Cokes, and an orange juice. Instructed pt that she was not going to receive any more food until her next blood sugar check at 2100. Pt stated that she was not being treated properly. Pt stated she was ready to leave AMA. IVs removed. Dr. Godoy at bedside to explain risk vs benefits. Spoke with pt's mother to let her know pt was leaving. Staff offered pt paper scrubs. Pt refused them and left in her t-shirt and shorts.
--- NOTE | 2024-08-07 19:56 | PM.DS ---
DS: Admitting Diagnosis Discharge Date 08/07/2024 Admitting Diagnosis DKA DS: Discharge Diagnosis Discharge Diagnosis (1) Diabetic ketoacidosis: Code(s): E11.10 - Type 2 diabetes mellitus with ketoacidosis without coma Status: Acute Assessment and Plan: 08/06: Patient presented with generalized weakness, shortness of breath, hyperglycemia. In the ER patient was found to be in DKA with elevated beta hydroxybutyrate, anion gap metabolic acidosis, hyperglycemia with a blood sugar of 539. Patient was given 4 L of IV fluids since admission in the ER and ICU -anion gap has closed, will transition to long-acting insulin and sliding scale insulin -diabetic diet -Accu-Cheks and sliding scale insulin Patient left AMA. (2) Hyperkalemia: Code(s): E87.5 - Hyperkalemia Status: Acute Assessment and Plan: RESOLVED Likely related to metabolic acidosis, will recheck BMP for potassium levels since patient has received adequate was IV fluids and started on insulin infusion (3) Hypothyroidism: Code(s): E03.9 - Hypothyroidism, unspecified Status: Acute Assessment and Plan: Restarted on levothyroxine at her home dose (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, managed as type 1: Onset Date: 2019 Code(s): E13.9 - Other specified diabetes mellitus without complications Status: Acute Assessment and Plan: HEMOGLOBIN A1C > 14.0 -appreciate para educator evaluation and recommendations which will be followed -appreciate dietitian following the patient (5) Leukocytosis: Code(s): D72.829 - Elevated white blood cell count, unspecified Status: Acute Assessment and Plan: Leukocytosis could be related to DKA, stress, infection -UA was negative for infection -chest x-ray did not show any acute cardiopulmonary disease - COVID, influenza and RSV were negative -leukocytosis improving likely related to stress, DKA DS: Summary Hospital Course Hospital Course: Madeleine Mendoza is a 39 year old female hx Type I Diabetes with an insulin pump, DKA, patricia's, admitted for DKA. On arrival, she was afebrile, tachycardic, hypertensive (97.7, RR12-20, HR 89-112, BP 123-160/91-106). WBC 14.4, potassium 6.6, glucose 539, beta hydroxybutyrate 12.2, with a metabolic acidosis, 7.050, pCO2 11, PO2 135.6, HCO3 3. She was tachycardic to 108. Irritable and upset she couldn't get out of bed. She reports family is out of town and she could not find her insulin so hasn't been able to take it for several days. Usually manages blood sugars with an insulin pump. Denies dysuria but reports shortness of breath that is typical for her when she is in DKA. Denies dysuria but is overall a poor historian. Appears irritable and frustrated by questions. She was given fluids and started on insulin drip in the ER and transferred to the ICU for continued care. In ICU patient received insulin drip and transitioned to SQ insulin. Patient was downgraded to IMU this late afternoon. I ordered BMP and went to evaluate the patient around 7.30pm. Unfortunately before my arrival patient insisted on leaving AMA and during my evaluation patient wanted to leave AMA in spite of all the efforts to calm her. I explained in detail that including can happen if patient leaves AMA. Patient understands everything and insisted on leaving AMA. As per nurse patient wanted 3 dinner trays including the regular soda,desserts and crackers. Nurse spoke with her mother and given the update. Status at Discharge Cognitive/behavioral status at discharge: AMA Time Spent with Patient Time attestation: Total time spent providing and/or coordinating discharge services:45 minutes Exam Narrative: Not applicable DS: Data Data Completed and Pending Labs on day of discharge: Labs from last 24 hours 08/07/24 08/07/24 08/07/24 15:50 11:50 09:58 WBC RBC Hgb Hct MCV MCH MCHC RDW Plt Count MPV Immature Gran % (Auto) Neut % (Auto) Lymph % (Auto) [place] % (Auto) Eos % (Auto) Baso % (Auto) Lymph # (Auto) [place] # (Auto) Eos # (Auto) Baso # (Auto) Abs Immat Gran (auto) Absolute Neuts (auto) Absolute Nucleated RBC Nucleated RBC % Sodium Potassium Chloride Carbon Dioxide Anion Gap BUN Creatinine Estim Creat Clear Calc Estimated GFR Glucose POC Capillary Glucose 302 H 334 H 265 H Lactic Acid Calcium Phosphorus Magnesium Total Bilirubin AST ALT Alkaline Phosphatase Total Protein Albumin Urine Color Urine Appearance Urine pH Ur Specific Alexander Urine Protein Urine Glucose (UA) Urine Ketones Ur Blood (Man) Urine Nitrate Urine Bilirubin Urine Urobilinogen Ur Leukocyte Esterase Nasal MRSA (PCR) 08/07/24 08/07/24 08/07/24 08:38 08:20 07:28 WBC RBC Hgb Hct MCV MCH MCHC RDW Plt Count MPV Immature Gran % (Auto) Neut % (Auto) Lymph % (Auto) [place] % (Auto) Eos % (Auto) Baso % (Auto) Lymph # (Auto) [place] # (Auto) Eos # (Auto) Baso # (Auto) Abs Immat Gran (auto) Absolute Neuts (auto) Absolute Nucleated RBC Nucleated RBC % Sodium 131 L Potassium 3.8 Chloride 113 H Carbon Dioxide 18 L Anion Gap 0 L BUN 14 Creatinine 0.40 L Estim Creat Clear Calc 130 Estimated GFR > 60 Glucose 234 H POC Capillary Glucose 228 H 234 H Lactic Acid Calcium 7.8 L Phosphorus Magnesium Total Bilirubin AST ALT Alkaline Phosphatase Total Protein Albumin Urine Color Urine Appearance Urine pH Ur Specific Alexander Urine Protein Urine Glucose (UA) Urine Ketones Ur Blood (Man) Urine Nitrate Urine Bilirubin Urine Urobilinogen Ur Leukocyte Esterase Nasal MRSA (PCR) 08/07/24 08/07/24 08/07/24 06:35 06:26 05:31 WBC RBC Hgb Hct MCV MCH MCHC RDW Plt Count MPV Immature Gran % (Auto) Neut % (Auto) Lymph % (Auto) [place] % (Auto) Eos % (Auto) Baso % (Auto) Lymph # (Auto) [place] # (Auto) Eos # (Auto) Baso # (Auto) Abs Immat Gran (auto) Absolute Neuts (auto) Absolute Nucleated RBC Nucleated RBC % Sodium Potassium Chloride Carbon Dioxide Anion Gap BUN Creatinine Estim Creat Clear Calc Estimated GFR Glucose POC Capillary Glucose 232 H 226 H Lactic Acid Calcium Phosphorus Magnesium Total Bilirubin AST ALT Alkaline Phosphatase Total Protein Albumin Urine Color Pending Urine Appearance Pending Urine pH Pending Ur Specific Alexander Pending Urine Protein Pending Urine Glucose (UA) Pending Urine Ketones Pending Ur Blood (Man) Pending Urine Nitrate Pending Urine Bilirubin Pending Urine Urobilinogen Pending Ur Leukocyte Esterase Pending Nasal MRSA (PCR) 08/07/24 08/07/24 08/07/24 04:48 03:31 02:52 WBC 10.5 H RBC 4.25 Hgb 11.4 L D Hct 33.9 L MCV 79.8 L D MCH 26.8 MCHC 33.6 RDW 13.7 Plt Count 379 H MPV 9.7 Immature Gran % (Auto) 0.5 Neut % (Auto) 70.2 Lymph % (Auto) 19.5 [place] % (Auto) 7.8 Eos % (Auto) 1.5 Baso % (Auto) 0.5 Lymph # (Auto) 2.04 [place] # (Auto) 0.8 H Eos # (Auto) 0.2 Baso # (Auto) 0.1 Abs Immat Gran (auto) 0.05 H Absolute Neuts (auto) 7.4 H Absolute Nucleated RBC 0.000 Nucleated RBC % 0.0 Sodium 131 L Potassium 3.6 Chloride 114 H Carbon Dioxide 16 L Anion Gap 1 L BUN 15 Creatinine 0.40 L Estim Creat Clear Calc 130 Estimated GFR > 60 Glucose 210 H POC Capillary Glucose 231 H 232 H Lactic Acid 0.8 Calcium 7.7 L Phosphorus 1.9 L Magnesium 2.2 Total Bilirubin 0.3 AST 18 ALT 10 Alkaline Phosphatase 120 Total Protein 6.0 L Albumin 2.9 L Urine Color Urine Appearance Urine pH Ur Specific Alexander Urine Protein Urine Glucose (UA) Urine Ketones Ur Blood (Man) Urine Nitrate Urine Bilirubin Urine Urobilinogen Ur Leukocyte Esterase Nasal MRSA (PCR) 08/07/24 08/07/24 08/07/24 02:30 01:38 00:22 WBC RBC Hgb Hct MCV MCH MCHC RDW Plt Count MPV Immature Gran % (Auto) Neut % (Auto) Lymph % (Auto) [place] % (Auto) Eos % (Auto) Baso % (Auto) Lymph # (Auto) [place] # (Auto) Eos # (Auto) Baso # (Auto) Abs Immat Gran (auto) Absolute Neuts (auto) Absolute Nucleated RBC Nucleated RBC % Sodium Potassium Chloride Carbon Dioxide Anion Gap BUN Creatinine Estim Creat Clear Calc Estimated GFR Glucose POC Capillary Glucose 215 H 247 H 264 H Lactic Acid Calcium Phosphorus Magnesium Total Bilirubin AST ALT Alkaline Phosphatase Total Protein Albumin Urine Color Urine Appearance Urine pH Ur Specific Alexander Urine Protein Urine Glucose (UA) Urine Ketones Ur Blood (Man) Urine Nitrate Urine Bilirubin Urine Urobilinogen Ur Leukocyte Esterase Nasal MRSA (PCR) 08/06/24 08/06/24 08/06/24 23:21 22:47 22:22 WBC RBC Hgb Hct MCV MCH MCHC RDW Plt Count MPV Immature Gran % (Auto) Neut % (Auto) Lymph % (Auto) [place] % (Auto) Eos % (Auto) Baso % (Auto) Lymph # (Auto) [place] # (Auto) Eos # (Auto) Baso # (Auto) Abs Immat Gran (auto) Absolute Neuts (auto) Absolute Nucleated RBC Nucleated RBC % Sodium 131 L Potassium 4.1 Chloride 113 H Carbon Dioxide 14 L Anion Gap 4 BUN 15 Creatinine 0.40 L Estim Creat Clear Calc 130 Estimated GFR > 60 Glucose 231 H POC Capillary Glucose 237 H 233 H Lactic Acid Calcium 7.8 L Phosphorus Magnesium Total Bilirubin AST ALT Alkaline Phosphatase Total Protein Albumin Urine Color Urine Appearance Urine pH Ur Specific Alexander Urine Protein Urine Glucose (UA) Urine Ketones Ur Blood (Man) Urine Nitrate Urine Bilirubin Urine Urobilinogen Ur Leukocyte Esterase Nasal MRSA (PCR) 08/06/24 08/06/24 08/06/24 21:18 20:16 17:31 WBC RBC Hgb Hct MCV MCH MCHC RDW Plt Count MPV Immature Gran % (Auto) Neut % (Auto) Lymph % (Auto) [place] % (Auto) Eos % (Auto) Baso % (Auto) Lymph # (Auto) [place] # (Auto) Eos # (Auto) Baso # (Auto) Abs Immat Gran (auto) Absolute Neuts (auto) Absolute Nucleated RBC Nucleated RBC % Sodium Potassium Chloride Carbon Dioxide Anion Gap BUN Creatinine Estim Creat Clear Calc Estimated GFR Glucose POC Capillary Glucose 243 H 202 H Lactic Acid Calcium Phosphorus Magnesium Total Bilirubin AST ALT Alkaline Phosphatase Total Protein Albumin Urine Color Urine Appearance Urine pH Ur Specific Alexander Urine Protein Urine Glucose (UA) Urine Ketones Ur Blood (Man) Urine Nitrate Urine Bilirubin Urine Urobilinogen Ur Leukocyte Esterase Nasal MRSA (PCR) Detected A* Discharge Plan Discharge Attending physician on discharge: Kameron Godoy Consulting providers: Cherise Arias Zohair H. Discharging Clinician: Kmaeron Godoy Anticipated Discharge Date/Time: 08/07/24 19:59 Patient Disposition: Left Against Medical Advice Discharge Instructions: Patient left AMA Advised to return ED in the event hypo or hyperglycemic episode Advised to seek immediate care in case of chest pain, palpitation or any other constitutional symptoms Patient Instructions: Basic Carbohydrate Counting (DC) Patient Language: Zambian Discharge Medications: No Action insulin lispro 100 unit/mL solution 90 unit subcut DAILY Qty: 10 0RF Rx Instructions: 90 units daily via continuous infusion device insulin lispro 100 unit/mL solution 90 unit subcut DAILY Qty: 10 1RF Rx Instructions: 90 units daily via continuous infusion (DME) Dexcom G6 Sensor Device See Rx Instructions .ROUTE .MEDSUPPLY Qty: 9 4RF Rx Instructions: Use to Monitor Glucose ; Change every 10 days (DME) Dexcom G6 Skilled Helper Misc See Rx Instructions .ROUTE .MEDSUPPLY Qty: 1 0RF Rx Instructions: Will use smartphone (DME) OmnipSonarMed 5 G6 Pods (Gen 5) Cartridge See Rx Instructions .ROUTE .MEDSUPPLY Qty: 45 3RF Rx Instructions: change every 48 hours (DME) SecureAlertipod 5 G6 Intro Kit (Gen 5) Cartridge See Rx Instructions .ROUTE .MEDSUPPLY Qty: 1 0RF Rx Instructions: As directed Gvoke HypoPen 2-Pack 1 mg/0.2 mL auto-injector 1 mg subcut ONCE Qty: 0.4 4RF Rx Instructions: may repeat once after 15 minutes if no response levothyroxine 100 mcg tablet 100 mcg PO QAM Date of admission: 08/06/24 16:24 Primary Care Provider: PHYSICIAN,CASH CONTROLLER Admitting Provider: Kameron Godoy Attending physician on admission: Kameron Godoy Condition: Serious
--- OUTSIDE RECORDS SUMMARY | 2024-08-13 05:38 | XMS_ITS | Encounter Summary ---
Author Organization [facility] Address [facility] [place] [address] Care Team Providers Care Road Mixer Operator Name Role Phone Adair Finn APRN-MAKE UP OPERATOR Primary Care P rovider Joesph Jacobo MD Primary Care Provider [phone] Reason for Visit * Reason Onset Date Comments Medication Issue 07/21/2024 Encounter Details Date Type Department Care Team (Late st Contact Info) Description 07/21/2024 Telephone [facility] - Endocrinology [address] [facility] [place] [phone] Rosalia Hair MD [facility] [address] [place] [phone] Medication Issue Social History Tobacco Use Types Packs/Day Years Used Date Smoking Tobacco: Unknown Sex and Gender Information Value Date Recorded Sex Assigned at Not on file Gender Identity Not on file Sexual Orientation Not on file documented as of this encounter Miscellaneous Notes * Telephone Encounter - Eileen Schwartz - 07/21/2024 2:03 PM CST Patient called in requesting a Med refill. Drug type:DEXCOM G6 TRANSMITTER Pharmacy: [id number] [address] [facility] [id number] Patient call back number: [phone] . Patients ANDRES : 03/29/2024 Upcoming appointment scheduled for : 10/04/2024 Pt needs an authorization. Eusebio BALL # - [phone] IC HEALTH INFORMATICIAN documented in this encounter Plan of Treatment Upcoming Encounters Date Type Department Care Team (Late st Contact Info) Description 08/23/2024 10:15 AM PUBLIC HEALTH INFORMATICIAN Office Visit [facility] - Ophthalmology [address] [place] [phone] Sandeep Hernandez MD [address] [place] [address] [place] [phone] 09/27/2024 9:45 AM PUBLIC HEALTH INFORMATICIAN Office Visit [facility] - Ophthalmology [address] [place] [phone] Buddy Fuller MD [address] [place] [address] [place] [phone] 10/04/2024 1:00 PM PUBLIC HEALTH INFORMATICIAN [facility] Endocr[facility]ology [address] [place] [phone] Rosalia Hair MD [address] [facility] [place] [place] [phone] 02/07/2025 8:30 AM CDT [facility] - Rheumatology [address] [place] [phone] Roni Castañeda MD [address] [place] [address] [place] [phone] documented as of this encounter Visit Diagnoses Not on filedocumented in this encounter Care Teams Road Mixer Operator Relationship Specialty Start Date End Date Adair Finn, BOWLING BALL ENGRAVER-MAKE UP OPERATOR [address] [place] [address] PCP - General Nurse Practitioner Adult Health 03/29/24 08/09/24 Joesph Jacobo MD [address] [place] [phone] PCP - General Internal Medicine 08/10/24 documented as of this encounter
--- OUTSIDE RECORDS SUMMARY | 2024-08-13 05:38 | XMS_ITS | Clinical Summary ---
Author Organization [facility] Address [address] [place] [address] Care Team Providers Care Equipment Hire Manager Name Role Phone Jeosph Jacobo MD Primary Care Provider [phone] Source Comments [facility],non-owned Affiliates and Associated Physician Practices is amultiple site organization consisting of ambulatory clinics and hospital sitesin [place], [place], [place] and [place]. This disclosure is being madepursuant to the Care Everywhere program and may not contain all information available regarding this patient. Last updated 18.[facility] Allergies No known active allergies Medications * Be aware that medications may not be up to date on this document. Alwaysverify current medications with the patient. Medication Sig Dispensed Refills Start Date End Date Status insulin lispro (HumaLOG) 100 UNIT/ML vial INJECT 90 UNITS UNDER THE SKIN DAILY VIA CONTINUOUS INFUSION DEVICE 30 mL 2 04/26/2024 Active Continuous Glucose Sensor (Dexcom G6 Sensor) MISCIndications:T ype 2 diabetes mellitus with other specified complication, with long-term current use of insulin (HCC) USE DIRECTED TO MONITOR GLUCOSE; CHANGE EVERY 10 DAYS 9 Each 11 05/02/2024 Active levothyroxine (Synthroid) 100 MCG tablet Take 1 (one) tablet by mouth once daily 30 tablet 07/18/2024 Active Continuous Glucose Transmitter (Dexcom G6 Transmitter) MISCIndications:T ype 1 diabetes mellitus with diabetic cataract (HCC) Use 1 Each Every 90 days 1 Each 3 07/24/2024 Active Insulin Disposable Pump (Omnipod 5 [id number] Pods Gen 5) MISC USE AND CHANGE EVERY 48 HOURS 03/13/2024 Active amphetamine-dextr oamphetamine (Adderall) 20 MG tablet Take 1 (one) tablet by mouth 2 times daily 07/20/2023 08/10/2024 Discontinue d(List Clean-Up) Continuous Glucose Transmitter (Dexcom G6 Transmitter) MISC 03/14/2024 08/10/2024 Discont inue d(List Clean-Up) Active Problems Problem Noted Date Diagnosed Date 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 02/14/2024 Encounters Date Type Department Care Team Description 08/11/2024 Travel 08/10/2024 10:25 AM END TRIMMER Clinical Support [facility] - Ophthalmology [address] [place] [phone] Sandeep Hernandez MD Optic disc edema (Primary Dx) 08/10/2024 10:20 AM END TRIMMER Clinical Support [facility] - Ophthalmology [address] [place] [phone] Sandeep Hernandez MD Optic disc edema (Primary Dx) 08/10/2024 10:15 AM END TRIMMER Office Visit [facility] - Ophthalmology [address] [place] [phone] Sandeep Hernandez MD Optic disc edema (Primary Dx); Combined forms of age-related cataract of right eye; Diabetes mellitus type 2 without retinopathy (HCC) 08/10/2024 10:10 AM END TRIMMER Clinical Support [facility] - Ophthalmology [address] [place] [phone] Sandeep Hernandez MD Optic disc edema (Primary Dx) 08/10/2024 Travel 07/28/2024 Telephone [facility] - Endocrinology [address] [place] [phone] Rosalia Hair MD Pre Authorization (Dexcom G6 Transmitter) 07/28/2024 Telephone [facility] - Endocrinology [address] [place] [phone] Elder Garza MD Pre Authorization (Dexcom G6 sensors) 07/24/[address] 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) 07/21/2024 Refill [facility] - Endocrinology [address] [place] [phone] Rosalia Hair MD Refill Request 07/21/2024 [facility] Endocrinology [address] [place] [phone] Rosalia Hair MD Medication Issue 07/18/2024 Orders Only [facility] - Endocrinology [address] [place] [phone] Rosalia Hair MD 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 [address] [place] [phone] Rosalia Hair MD Medication Prior Auth Request (Dexcom G6) 07/07/2024 Telephone [facility] - Endocrinology [address] [place] [phone] Rosalia Hair MD Encounter Opened In Error 06/14/2024 Orders Only [facility] - Ophthalmology [address] [place] [phone] Daina Cook MD 06/10/2024 11:27 AM END TRIMMER - 06/10/2024 11:47 AM [facility] Emergency [facility] [address] [place] [phone] Tobias Flood MD Hyperglycemia (Primary Dx); Diabetes mellitus due to underlying condition without complication, without long-term current use of insulin (HCC) Discharge Disposition: Home or Self Care 06/10/2024 3:36 AM END TRIMMER - 06/10/2024 9:51 AM [facility] Emergency [facility] [address] [place] [phone] Elke Mcneill MD Vision loss of left eye; Elevated random blood glucose level; Cerebrospinal fluid abnormality Discharge Disposition: Left Against Medical Advice/Discontinued Care 06/10/2024 Travel 06/09/2024 11:50 AM END TRIMMER Clinical Support [facility] [address] [place] [phone] Sandeep Hernandez MD Combined forms of age-related cataract of right eye (Primary Dx) 06/09/2024 11:45 AM END TRIMMER Clinical Support [facility] [address] [place] [phone] Sandeep Hernandez MD Optic disc edema (Primary Dx) 06/09/2024 9:40 AM END TRIMMER Clinical Support [facility] - Ophthalmology [address] [place] [phone] Sandeep Hernandez MD Optic disc edema (Primary Dx) 06/09/2024 9:35 AM END TRIMMER Clinical Support [facility] [address] [place] [phone] Sandeep Hernandez MD Optic disc edema (Primary Dx) 06/09/2024 8:30 AM END TRIMMER Office [facility] [address] [place] [phone] Optic disc edema (Primary Dx); Combined forms of age-related cataract of right eye 06/09/2024 Telephone [facility] Op[facility]mology [address] [place] [phone] Faisal Cesar MD Eye Problem 06/08/2024 Telephone [facility] - Ophthalmology [address] [place] [phone] Daina Cook MD Eye Problem 06/07/2024 Telephone [facility] Ophthalmology [address] [place] [phone] Faisal Cesar MD Eye Problem 06/01/2024 Travel from Last 3 Months Family History Medical History Relation Name Comments Blindness Neg Hx Glaucoma Neg Hx Macular Degeneration Neg Hx Social History Tobacco Use Types Packs/Day Years Used Date Smoking Tobacco: Unknown Tobacco Cessation:Counseling Given: Not Answered Sex and Gender Information Value Date Recorded Sex Assigned at Not on file Gender Identity Not on file Sexual Orientation Not on file Last Filed Vital Signs Vital Sign Reading Time Taken Comments Blood Pressure 120/82 06/10/2024 10:51 AM END TRIMMER Pulse 111 06/10/2024 10:51 AM END TRIMMER Temperature 36.6 ??C (97.9 ??F) 06/10/2024 10:[address] Respiratory Rate 18 06/10/2024 10:51 AM END TRIMMER Oxygen Saturation 100% 06/10/2024 10:51 AM END TRIMMER Inhaled Oxygen Concentration - - Weight 54.4 kg (120 lb) 06/09/2024 5:29 PM END TRIMMER Height 160 cm (5' 3 ) 06/09/2024 5:29 PM END TRIMMER Body Mass Index 21.26 06/09/2024 5:29 PM END TRIMMER Plan of Treatment Upcoming Encounters Date Type Department Care Team (Late st Contact Info) Description 08/23/2024 10:15 AM END TRIMMER Office Visit [facility] - Ophthalmology [address] [place] [phone] Sandeep Hernandez MD [address] [place] [address] [place] [phone] 09/27/2024 9:45 AM END TRIMMER Office Visit [facility] Ophthalmology [address] [place] [phone] Buddy Fuller MD [facility] [place] [phone] 10/04/2024 1:00 PM END TRIMMER Office Visit [facility] - Endocrinology [address] [place] [phone] Rosalia Hair MD [address] [facility] [place] [phone] 02/07/2025 8:30 AM CDT Office Visit [facility] - Rheumatology [address] [place] [phone] Roni Castañeda MD [facility] [facility] [place] [phone] Health Maintenance Due Date Last Done Comments MAMMOGRAM 1983 PAP SMEAR 1983 HEPATITIS C SCREENING 05/31/2001 DTAP/TDAP/TD VACCINES (1 - Tdap) 2002 HEPATITIS B VACCINE (1 of 3 - 19+ 3-dose series) 2002 PNEUMOCOCCAL VACCINE (1 of 2 - PCV) 2002 DIABETES-STATIN 2023 DIABETES-FOOT EXAM WITH MONOFILAMENT 03/29/2024 COVID-19 VACCINE (1 - season) 2024 INFLUENZA VACCINE (#1) 2024 DEPRESSION SCREENING 08/02/2024 DIABETES - URINE PROTEIN SCREENING 08/02/2024 DIABETES-HGB A1C 10/07/2024 07/09/2024, , 03/29/2024 DIABETES-SERUM CREATININE 07/10/20252023, 07/10/2024, 07/09/2024, Additional history exists DIABETES RETINOPATHY SCREENING 08/10/2025 08/10/2024, 08/10/2024, 06/01/2024 ZOSTER VACCINE (1 of 2) 2033 HIV SCREENING Completed 06/09/2024 HIB VACCINE Aged Out No longer eligi ble based on patient's age to complete this topic HPV VACCINE Aged Out No longer eligi ble based on patient's age to complete this topic MENINGOCOCCAL (Group B) VACCINE Aged Out No longer eligible based on patient's age to complete this topic MENINGOCOCCAL VACCINE Aged Out No kerwin mehdi eligible based on patient's age to complete this topic Procedures Procedure Name Priority Date/Time Associated Diagnosis Comments FUNDUS PHOTO BOTH EYES Routine 10:14 AM END TRIMMER Optic disc edema OPTIC NERVE ANALYSIS OCT Routine 08/10/2024 10:05 AM END TRIMMER Optic disc edema LUIS AUTO VISUAL FIELD EXTENDED Routine 08/10/2024 10:05 AM END TRIMMER Optic disc edema GLUCOSE - POINT OF CARE Routine 06/10/20 11:24 AM END TRIMMER BASIC METABOLIC PANEL (CALCIUM TOTAL) STAT 06/10/2024 8:24 AM END TRIMMER ANGIOTENSIN CONVERTING ENZYME BLOOD STAT 06/10/2024 8:24 AM END TRIMMER SUSHANT BLOOD SCREEN W/REFLEX TITER STAT 06/10/2024 8:24 AM END TRIMMER SYPHILIS ANTIBODY CASCADING REFLEX STAT 06/10/2024 8:24 AM END TRIMMER BARTONELLA MONTANO ANTIBODY IGM STAT 06/10/2024 8:24 AM END TRIMMER MYELIN BASIC PROTEIN CSF STAT 06/10/2024 5:22 AM END TRIMMER PROTEIN ELECTROPHORESIS CSF PANEL STAT 06/10/2024 5:22 AM END TRIMMER ANGIOTENSIN CONVERTING ENZYME CSF STAT 06/10/2024 5:22 AM END TRIMMER VDRL CSF W REFLEX TO TITER STAT 06/10/2024 5:22 AM END TRIMMER CELL COUNT W DIFFERENTIAL CSF STAT 06/10/2024 5:22 AM END TRIMMER PROTEIN CSF STAT 06/10/2024 5:22 AM END TRIMMER GLUCOSE CSF STAT 06/10/2024 5:22 AM END TRIMMER CULTURE CSF+GRAM STAIN STAT 5:22 AM END TRIMMER ED LUMBAR PUNCTURE Routine 06/10/2024 4: 22 AM END TRIMMER Vision loss of left eye MRI ANGIO BRAIN ARTERIAL WO CONT STAT 06/09/2024 11:16 PM END TRIMMER Vision loss of left eye MRI ORBITS OR FACE WWO CONTRAST STAT 06/09/2024 11:16 PM END TRIMMER Vision loss of left eye MRI ANGIO BRAIN VENOUS WWO CONT STAT 06/09/2024 11:16 PM END TRIMMER Vision loss of left eye MRI BRAIN WWO CONTRAST STAT 11:15 PM END TRIMMER Vision loss of left eye XR CHEST 2VW STAT 06/09/2024 7:34 PM END TRIMMER Vision loss of left eye HCG BETA BLOOD QUANTITATIVE STAT 06/09/2024 7:13 PM END TRIMMER LYME DISEASE TOTAL AB W RFLX IMMUNOASSAY STAT 06/09/2024 7:13 PM END TRIMMER HIV-1 HIV-2 ANTIBODY + HIV P24 AG PANEL STAT 06/09/2024 7:13 PM END TRIMMER QUANTIFERON-TB GOLD PLUS 4-TUBE STAT 06/09/2024 7:13 PM END TRIMMER C-REACTIVE PROTEIN ZENY 06/09/2024 7: 13 PM END TRIMMER ERYTHROCYTE SEDIMENTATION RATE STAT 06/09/2024 7:13 PM END TRIMMER COMPREHENSIVE METABOLIC PANEL STAT 06/09/2024 7:13 PM END TRIMMER CBC W AUTO DIFFERENTIAL STAT 06/09/20 7:13 PM END TRIMMER ANTERIOR IMMERSION UNI/BI Routine 06/09/2024 11:41 AM END TRIMMER Combined forms of age-related cataract of right eye FUNDUS PHOTO BOTH EYES Routine 11:41 AM END TRIMMER Optic disc edema LUIS AUTO VISUAL FIELD EXTENDED Routine 06/09/2024 9:31 AM END TRIMMER Optic disc edema RETINAL ANALYSIS OCT Routine 06/09/2024 9:31 AM END TRIMMER Optic disc edema EYE EXAM 06/01/2024 HEMOGLOBIN A1C - POINT OF CARE (AMB) [facility] Routine 03/29/2024 2:44 PM CDT 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 Sandeep Hernandez MD OPHTHALMOLOGY SCHED ORD W PACS * OPTIC NERVE ANALYSIS OCT (08/10/2024 10:05 AM END TRIMMER) Anatomical Region Laterality Modality Head External-Camera Photography Narrative 08/10/2024 2:52 PM END TRIMMER Images from the original result were not included. Sandeep Hernandez MD OPHTHALMOLOGY SCHED ORD W PACS * LUIS AUTO VISUAL FIELD EXTENDED (08/10/2024 10:05 AM END TRIMMER) Anatomical Region Laterality Modality Head External-Camera Photography Narrative 08/10/2024 2:52 PM END TRIMMER Images from the original result were not included. Sandeep Hernandez MD OPHTHALMOLOGY SCHED ORD W PACS * (ABNORMAL) GLUCOSE - POINT OF CARE (06/10/2024 11:24 AM END TRIMMER) Glucose WB/POC >500(HH) 70 - 99 mg/dL 06/12/2024 10:59 AM END TRIMMER [facility] Specimen Type Cap Fingerstick 2023 10:59 AM END TRIMMER [facility] Blood BLOOD SPECIMEN / Unknown 06/10/2024 11:24 AM END TRIMMER 06/12/2024 10:59 AM END TRIMMER Provider Unknown LAB - POINT OF CARE ORDERABLES Performing Organization Address [facility] de Phone Number [facility] [address] [address], [facility] [phone] * BARTONELLA MONTANO ANTIBODY IGM (06/10/2024 8:24 AM END TRIMMER) [facility] Bartonella montano Antibody IgM < 1:16 06/16/2024 9:49 AM END TRIMMER [employer] ([facility]) Comment: INTERPRETIVE INFORMATION: Bartonella montano Ab, IgM ??Less than 1:16 ...... Negative-No significant level of ?Bartonella montano IgM antibody ?detected. ??1:16 or greater ..... Positive-Presence of IgM antibody ?to Bartonella montano detected, ?suggestive of current or recent ?infection. The presence of IgM antibodies suggests recent infection. Low levels of IgM antibodies may occasionally persist for more than 12 months post-infection. This test was developed and its performance characteristics determined by [facility] [employer]. It has not been cleared or approved by the US Food and Drug Administration. This test was performed in a CLIA certified laboratory and is intended for clinical purposes. Performed By: [place] [address] Library Sales Consultant: Yusuf Castro MD, PhD CLIA Number: [id number] Blood BLOOD SPECIMEN / Unknown Venipuncture / Unknown 06/10/2024 8:24 AM END TRIMMER 06/10/2024 8:29 AM END TRIMMER Maliha Tilley MD LAB - SEROLOGY ORDER NAUN Performing Organization Address [facility] Co de Phone Number [facility]) [address] [place] [id number] * SYPHILIS ANTIBODY CASCADING REFLEX (06/10/2024 8:24 AM END TRIMMER) Treponema pallidum Antibody Non-react stephanie Non-react stephanie 06/10/2024 9:25 AM END TRIMMER [facility] Comment: No Laboratory evidence of syphilis infection. ?? Note: ??Circulating antibodies may be low or undetectable in early infection. ??If recent exposure is suspected, re-draw sample in 2-4 weeks and repeat testing. Blood BLOOD SPECIMEN / Unknown Venipuncture / Unknown 06/10/2024 8:24 AM END TRIMMER 06/10/2024 8:29 AM END TRIMMER Maliha Tilley MD LAB - SEROLOGY ORDER NAUN Performing Organization Address City/[facility]/ZIP Co de Phone Number [address] [address], [facility] [phone] * SUSHANT BLOOD SCREEN W/REFLEX TITER (06/10/2024 8:24 AM END TRIMMER) SUSHANT IgG None Detected None Detected 06/13/2024 8:57 PM END TRIMMER [facility]) Comment: If suspicion of connective tissue disease is strong and SUSHANT EIA is negative, consider testing for SUSHANT by IFA ([id number]). INTERPRETIVE INFORMATION: Anti-Nuclear Antibodies (SUSHANT), IgG by [employer] Antinuclear Antibodies (SUSHANT), IgG by [employer]: SUSHANT specimens are screened using enzyme-linked immunosorbent assay (CHINMAY) methodology. All [employer]Y results reported as Detected are further tested by indirect fluorescent assay (IFA) using HEp-2 substrate with an IgG-specific conjugate. The SUSHANT CHINMAY screen is designed to detect antibodies against dsDNA, histones, SS-A (Ro), SS-B (La), Fracnois, Francois/EBD SPECIAL EDUCATION TEACHER, Scl-70, Марина-1, centromeric proteins, other antigens extracted from the HEp-2 cell nucleus. SUSHANT CHINMAY assays have been reported to have lower sensitivities than SUSHANT IFA for systemic autoimmune rheumatic diseases (SARD). Negative results do not necessarily rule out SARD. Performed By: [facility] [address] [place] [address] Library Sales Consultant: Yusuf Castro MD, PhD CLIA Number: [id number] Blood BLOOD SPECIMEN / Unknown Venipuncture / Unknown 06/10/2024 8:24 AM END TRIMMER 06/10/2024 8:29 AM END TRIMMER Elke Mcneill MD LAB - CHEMISTRY ORDE [facility] Organization Address City/State/ZIP Co de Phone Number [facility]) [address] [place] [address], [facility] * (ABNORMAL) ANGIOTENSIN CONVERTING ENZYME BLOOD (06/10/2024 8:24 AM END TRIMMER) Angiotensin-Conve rting Enzyme 90(H) 16 - 85 U/L 06/13/2024 7:12 PM END TRIMMER [facility] [employer] ([facility]) Comment: Performed By: [facility] [address] [place] [address] Library Sales Consultant: Yusuf Catsro MD, PhD CLIA Number: [id number] Blood BLOOD SPECIMEN / Unknown Venipuncture / Unknown 06/10/2024 8:24 AM END TRIMMER 06/10/2024 8:29 AM END TRIMMER Elke Mcneill MD LAB - CHEMISTRY ORDE RABLES [facility] ([facility]) [address] [place] [address], [facility] * (ABNORMAL) BASIC METABOLIC PANEL (CALCIUM TOTAL) (06/10/2024 8:24 AM [facility]) BUN 11 7 - 26 mg/dL 06/10/2024 9:20 AM [facility] Creatinine 0.47(L) 0.56 - 0.96 mg/dL 06/10/2024 9:20 AM [facility] Sodium 131(L) 136 - 145 mmol/L 06/10/2024 9:20 AM [facility] Potassium 4.4 3.5 - 4.5 mmol/L 06/10/2024 9:20 AM [facility] Chloride 92(L) 98 - 107 mmol/L 06/10/2024 9:20 AM [facility] CO2 22 22 - 29 mmol/L 06/10/2024 9:20 AM [facility] Glucose 782(HH) 70 - 99 mg/dL 06/10/2024 9:20 AM [facility] Calcium 8.9 8.4 - 10.2 mg/dL 06/10/2024 9:20 AM [facility] Anion Gap 17(H) 6 - 16 06/10/2024 9:20 AM [facility] BUN/Creatinine Ratio 23 7 - 23 06/10/2024 9:20 AM [facility] Osmolality Calculated 309(H) 275 - 295 mOsm/kg 06/10/2024 9:20 AM [facility] eGFR by CKD-EPI >90 >=90 mL/min/1.7 3 m2 06/10/2024 9:20 AM [facility] Blood BLOOD SPECIMEN / Unknown Venipuncture / Unknown 06/10/2024 8:24 AM END TRIMMER 06/10/2024 8:35 AM [facility] Tobias Schafer MD LAB - CHEMISTRY VANESSA TOMLIN [facility] [address] [place] [address] [phone] * VDRL CSF W REFLEX TO TITER (06/10/2024 5:22 AM END TRIMMER) VDRL CSF Non Reactive Non Reactive 06/12/2024 3:54 PM END TRIMMER [facility] ([facility]) Comment: Because the VDRL was Non Reactive, the VDRL titer was not performed. Performed By: [facility] [address] [place] [address] Library Sales Consultant: Yusuf Castro MD, PhD CLIA Number: [id number] Cerebral spinal fluid CEREBROSPINAL FLUID SPECIMEN / Unknown Collection / Unknown 06/10/2024 5:22 AM END TRIMMER 06/10/2024 5:39 AM END TRIMMER Elke Mcneill MD LAB - BODY FLUID ORD ERABLES [facility]) [address] [place], [place] [id number] [place] [address] * CULTURE CSF+GRAM STAIN (06/10/2024 5:22 AM END TRIMMER) Pathologist [facility] Culture No growth REYNA 06/17/2024 5:20 AM END TRIMMER [facility]CRO[facility] Gram Stain No organisms seen 024 5:20 AM END TRIMMER [facility] Gram Stain No polymorphonuclear cells 06/17/2024 5:20 AM END TRIMMER [facility] Cerebral spinal fluid CEREBROSPINAL FLUID SPECIMEN / Unknown Collection / Unknown 06/10/2024 5:22 AM END TRIMMER 06/10/2024 5:39 AM END TRIMMER Elke Mcneill MD LAB - MICROBIOLOGY O RDERABLES [facility] [address] [place] [address] [phone] * ANGIOTENSIN CONVERTING ENZYME CSF (06/10/2024 5:22 AM END TRIMMER) Pathologist [facility] Angiotensin-Convert ing Enzyme CSF 2.5 0.0 - 2.5 U/L 06/15/2024 12:12 AM END TRIMMER [facility] ([facility]) Comment: This test was developed and its performance characteristics determined by [employer]. It has not been cleared or approved by the US Food and Drug Administration. This test was performed in a CLIA certified laboratory and is intended for clinical purposes. Performed By: [facility] [employer] [address] [place] [address] Library Sales Consultant: Yusuf Castro MD, PhD CLIA Number: [id number] Cerebral spinal fluid CEREBROSPINAL FLUID SPECIMEN / Unknown Collection / Unknown 06/10/2024 5:22 AM END TRIMMER 06/10/2024 5:39 AM END TRIMMER Elke Mcneill MD LAB - BODY FLUID ORD ERABLES Performing Organization Address City/[facility]/ZIP Co de Phone Number [facility]) [address] [place] [address] * MYELIN BASIC PROTEIN CSF (06/10/2024 5:22 AM END TRIMMER) Myelin Basic Protein 2.15 0.00 - 5.50 ng/mL 06/14/2024 9:42 AM END TRIMMER [facility] ([facility]) Comment: INTERPRETIVE INFORMATION: ??Myelin Basic Protein This test was developed and its performance characteristics determined by [employer]. It has not been cleared or approved by the US Food and Drug Administration. This test was performed in a CLIA certified laboratory and is intended for clinical purposes. Performed By: [facility] [employer] [address] [place] [address] Library Sales Consultant: uYsuf Castro MD, PhD CLIA Number: [id number] Cerebral spinal fluid CEREBROSPINAL FLUID SPECIMEN / Unknown Collection / Unknown 06/10/2024 5:22 AM END TRIMMER 06/10/2024 5:39 AM END TRIMMER Elke Mcneill MD LAB - BODY FLUID ORD ERABLES Performing Organization Address City/[facility]/ZIP Co de Phone Number [facility]) [address] [place] [address] * (ABNORMAL) CELL COUNT W DIFFERENTIAL CSF (06/10/2024 5:22 AM END TRIMMER) Tube Number [id number] 06/10/2024 5:51 AM END TRIMMER [facility] Xanthochromia ABSENT ABSENT 06/10/2024 5:51 AM [facility] CSF Appearance CLEAR 06/10/2024 5:51 AM [facility] CSF Color COLORLESS 06/10/2024 5:51 AM [facility] Total Nucleated Cells CSF 2 <=5 x10E6/L 06/10/2024 5:51 AM [facility] RBC Count CSF 18(H) <1 x10E6/L 06/10/2024 5:51 AM [facility] Cerebral spinal fluid CEREBROSPINAL FLUID SPECIMEN / Unknown Collection / Unknown 06/10/2024 5:22 AM END TRIMMER 06/10/2024 5:39 AM END TRIMMER Narrative [facility] - 06/10/2024 5:51 AM END TRIMMER No differential performed per procedure Elke Mcneill MD LAB - BODY FLUID ORD ERABLES Performing Organization Address City/[facility]/ZIP Co de Phone Number [address] [address], [facility] [phone] * (ABNORMAL) PROTEIN CSF (06/10/2024 5:22 AM END TRIMMER) Protein CSF 54(H) 15 - 45 mg/dL 06/10/2024 6:15 AM [facility] Cerebral spinal fluid CEREBROSPINAL FLUID SPECIMEN / Unknown Collection / Unknown 06/10/2024 5:22 AM END TRIMMER 06/10/2024 5:39 AM END TRIMMER Elke Mcneill MD LAB - BODY FLUID ORD ERABLES [address] [address], [facility] [phone] * (ABNORMAL) GLUCOSE CSF (06/10/2024 5:22 AM END TRIMMER) Glucose CSF 294(H) 40 - 70 mg/dL 06/10/2024 6:15 AM [facility] Cerebral spinal fluid CEREBROSPINAL FLUID SPECIMEN / Unknown Collection / Unknown 06/10/2024 5:22 AM END TRIMMER 06/10/2024 5:39 AM END TRIMMER Elke Mcneill MD LAB - BODY FLUID ORD ERABLES [facility] [address] [place] [id number], [facility] [phone] * (ABNORMAL) PROTEIN ELECTROPHORESIS CSF PANEL (06/10/2024 5:22 AM END TRIMMER) Protein CSF 48.6(H) 15.0 - 45.0 mg/dL 06/12/2024 5:17 PM END TRIMMER [facility] ([facility]) Prealbumin CSF 1.9 0.0 - 3.1 mg/dL 06/12/2024 5:17 PM END TRIMMER [facility]) Albumin CSF 25.8 8.4 - 34.2 mg/dL 06/12/2024 5:17 PM END TRIMMER [facility]) Alpha-1 Globulin CSF 1.7 0.0 - 3.1 mg/dL 06/12/2024 5:17 PM END TRIMMER [facility]) Owcvm-2-Ioakaoie CSF 5.8(H) 0.0 - 5.4 mg/dL 06/12/2024 5:17 PM END TRIMMER [facility]) Beta-Globulin CSF 9.2(H) 0.0 - 8.1 mg/dL 06/12/2024 5:17 PM END TRIMMER [facility]) Gamma Globulin CSF 4.2 0.0 - 5.4 mg/dL 06/12/2024 5:17 PM END TRIMMER [facility]) Comment: Performed By: [employer] [address] [place] [address] Library Sales Consultant: Yusuf Castro MD, PhD CLIA Number: [id number] Cerebral spinal fluid CEREBROSPINAL FLUID SPECIMEN / Unknown Collection / Unknown 06/10/2024 5:22 AM END TRIMMER 06/10/2024 5:39 AM END TRIMMER Elke Mcneill MD LAB - BODY FLUID ORD ERABLES [facility]) [address] * Lumbar Puncture (06/10/2024 4:22 AM END TRIMMER) Narrative Elke Mcneill MD - 06/10/2024 4:22 AM END TRIMMER Mann Saez, DO ? 06/15/2024 12:03 PM Lumbar Puncture Date/Time: 06/10/2024 4:22 AM Performed by: Mann Saez DO Authorized by: Elke Mcneill MD ?? Consent: ??Consent obtained: ??Written and verbal ??Consent given by: ??Patient ??Risks, benefits, and alternatives were discussed: yes ?Risks discussed: ??Headache, bleeding, infection, nerve damage, repeat procedure and pain ??Alternatives discussed: ??Alternative treatment, no treatment, delayed treatment and observation [place] protocol: ??Procedure explained and questions answered to patient or proxy's satisfaction: yes ?Relevant documents present and verified: yes ?Test results available: yes ?Imaging studies available: yes ?Required blood products, implants, devices, and special equipment available: yes ?Site/side marked: yes ?Patient identity confirmed: ??Verbally with patient, arm band and hospital-assigned identification number Pre-procedure details: ??Procedure purpose: ??Diagnostic ??Preparation: Patient was prepped and draped in usual sterile fashion ?? Anesthesia: ??Anesthesia method: ??Local infiltration ??Local anesthetic: ??Lidocaine 1% w/o epi Procedure details: ??Lumbar space: ??L4-L5 interspace ??Patient position: ??R lateral decubitus ??Needle gauge: ??20 ??Needle type: ??Spinal needle - Quincke tip ??Needle length (in): ??1.5 ??Ultrasound guidance: no ?Number of attempts: ??2 ??Opening pressure (cm H2O): ??14 ??Fluid appearance: ??Clear ??Tubes of fluid: ??4 ??Total volume (ml): ??5 Post-procedure details: ??Puncture site: ??Adhesive bandage applied ??Procedure completion: ??Tolerated Comments: ?? Performed by me with Dr Mcneill available for all critical steps of the procedure. Pt tolerated well Elke Mcneill MD PROCEDURE/MINOR SURG ICAL ORDERABLES * MRI Angio Brain Arterial Wo Cont (06/09/2024 11:16 PM END TRIMMER) Anatomical Region Laterality Modality Head Magnetic Resonan ce 06/10/2024 1:00 AM END TRIMMER Impressions 06/10/2024 10:52 AM END TRIMMER IMPRESSION: 1.No evidence of acute intracranial findings or abnormal enhancement. 2.No evidence of restricted diffusion to suggest an acute infarction. 3.No evidence of acute MRI findings in the orbits. 4.Atherosclerotic disease of the intracranial arterial vessels as outlined. 5.Moderate to severe stenosis of the carotid terminus bilaterally and multifocal stenoses of the M1 segments and the A1 segments of the middle cerebral and anterior cerebral arteries as detailed above. CT angiogram of the head the neck is recommended for further evaluation. 6.No evidence of dural sinus thrombosis or significant stenosis. 7.No significant/focal stenosis of the lateral transverse sinuses. There is however mild stenosis of the cervical left internal jugular vein. If there is clinical concern, color Doppler of the neck vessels could be obtained for further evaluation. > Interpreting Provider: Agnieszka Castro MD on 06/10/2024 10:52 AM Narrative 06/10/2024 10:52 AM END TRIMMER PROCEDURE: ??MRI BRAIN WWO CONTRAST, MRI ANGIO BRAIN ARTERIAL WO CONT, MRI ORBITS OR FACE WWO CONTRAST, MRI ANGIO BRAIN VENOUS WWO CONT, DATE/TIME OF EXAM: ??06/09/2024 11:15 PM, LOCATION ??[facility] INDICATION: H54.62: Vision loss of left eye ADDITIONAL CLINICAL INFORMATION: Ordering Provider Reason For Exam: ??r/o mass/IIH (accession [id number]), vision loss (accession [id number]), vision loss (accession [id number]), vision loss (accession [id number]) Technologist Note: ??Does the patient have a pacemaker or defibrillator?->No Does the patient have metal implants or stents?->No Additional: ??1 year old female with PMH of IDDM, OU cataracts (s/p lens surgery on the right) presents to ED for papilledema w/u sent in by ophthalmology. Pt with worsening left vision. States that she has vision at the top of her visual field due to constant glares of light which she has been experiencing for the past week. Was sent to retinal specialist by quantity surveyor for preoperative ophthalmic evaluation prior to left eye lens surgery. Denies headaches, rash, fever, n/v/d. . CONTRAST: ??GADOBUTROL 1 MMOL/ML IV SSM SO:5 mL EXAMINATION: 1.Magnetic resonance imaging (MRI) of the brain without and with contrast 2.MRI of the orbits without and with contrast 3.Magnetic resonance angiography (MRA) of the head without contrast 4.Magnetic resonance venography (MRV) of the head with contrast HISTORY: H54.62: Vision loss of left eye TECHNIQUE: 1.MRI of the brain was performed prior to and following the uneventful administration of 5 mL intravenous GADAVIST contrast according to standard protocol. 2.MRI of the orbits was performed prior to and following the uneventful administration of 5 mL intravenous GADAVIST contrast according to standard protocol. 3.MR arteriography of the head was performed without contrast utilizing time of flight technique. 4.MRV of the head was performed utilizing contrast enhanced time-resolved technique after the uneventful administration of 5 mL GADAVIST intravenous gadolinium contrast. COMPARISON: No prior study is available for comparison at the time of this dictation. FINDINGS: Brain: No evidence of acute or chronic hemorrhage is identified. No evidence of acute cerebral infarction is seen. The ventricles are of normal size, shape, and morphology. No mass effect or midline shift is seen. Trace periventricular white matter FLAIR hyperintensities are nonspecific and likely a normal variant. No enhancing lesions are identified. The corpus callosum and sella appear normal. The cerebellar tonsils reaching down just above the level of the foramen magnum. No herniation. The posterior fossa, brainstem, and craniocervical junction appear otherwise grossly normal. The visualized portions of the mastoids appear normal. Normal flow voids are demonstrated in the carotid arteries and basilar artery. The calvarium and visualized cervical spine appear normal. Orbits: The patient is status post left cataract extraction. The globes and extraocular muscles appear otherwise grossly normal. The lacrimal glands appear normal. The optic nerves are symmetric in size and signal. No abnormal enhancement is identified in either optic nerve. The optic chiasm and suprasellar cistern appear normal. Meckel's cave and the cavernous sinuses appear normal. There is mild paranasal sinus disease. Angiographic findings: There is atherosclerotic disease involving the distal internal carotid arteries. There is moderate to severe stenosis of the left carotid terminus. There is also moderate to severe stenosis of the right carotid terminus. There is likely mild stenosis of the M1 segment of the left MCA. Mild multifocal stenoses of the M1 segment of the right MCA. There is mild or moderate stenosis of the origin of the A1 segment of the right DYLAN. There is minimal stenosis of the A1 segment of the left DYLAN origin/proximal segment. The anterior and middle cerebral arteries appear otherwise patent. The left vertebral artery is dominant. The right vertebral artery is smaller in caliber and terminating in the right PICA. The distal vertebral arteries appear otherwise patent. The basilar artery is small in caliber. The posterior cerebral arteries appear normal with origin of both posterior cerebral arteries. Otherwise, no aneurysms, vascular occlusions, or hemodynamically significant intracranial stenoses are identified. Venographic findings: No significant/focal stenosis of the lateral transverse sinuses. There is however mild stenosis of the cervical left internal jugular vein. If there is clinical concern, color Doppler of the neck vessels could be obtained for further evaluation. The dural sinuses appear normal without evidence of thrombosis. The internal cerebral veins, veins of Kristie, and visible portions of the internal jugular veins appear normal without evidence of thrombosis. Procedure Note Agnieszka Castro MD - 06/10/2024 PROCEDURE: MRI BRAIN WWO CONTRAST, MRI ANGIO BRAIN ARTERIAL WO CONT,MRI ORBITS OR FACE WWO CONTRAST, MRI ANGIO BRAIN VENOUS WWO CONT, DATE/TIMEOF EXAM: 06/09/2024 11:15 PM, LOCATION [facility] INDICATION: H54.62: Vision loss of left eye ADDITIONAL CLINICAL INFORMATION: Ordering Provider Reason For Exam: r/o mass/IIH (accession [id number]), vision loss (accession [id number]), vision loss (accession [id number]), vision loss (accession [id number]) Technologist Note: Does the patient have a pacemaker ordefibrillator?->No Does the patient have metal implants or stents?->No Additional: 1 year old female with PMH of IDDM, OU cataracts (s/p lens surgery on the right) presents to ED for papilledema w/u sent in by ophthalmology. Pt with worsening left vision. States that she has visionat the top of her visual field due to constant glares of light which shehas been experiencing for the past week. Was sent to retinal specialist by quantity surveyor for preoperative ophthalmic evaluation prior to left eye lens surgery. Denies headaches, rash, fever, n/v/d. . CONTRAST: GADOBUTROL 1 MMOL/ML IV SSM SO:5 mL EXAMINATION: 1.Magnetic resonance imaging (MRI) of the brain without and withcontrast 2.MRI of the orbits without and with contrast 3.Magnetic resonance angiography (MRA) of the head without contrast 4.Magnetic resonance venography (MRV) of the head with contrast HISTORY: H54.62: Vision loss of left eye TECHNIQUE: 1.MRI of the brain was performed prior to and following the uneventful administration of 5 mL intravenous GADAVIST contrast according tostandard protocol. 2.MRI of the orbits was performed prior to and following the uneventful administration of 5 mL intravenous GADAVIST contrast according tostandard protocol. 3.MR arteriography of the head was performed without contrast utilizing time of flight technique. 4.MRV of the head was performed utilizing contrast enhancedtime-resolved technique after the uneventful administration of 5 mL GADAVISTintravenous gadolinium contrast. COMPARISON: No prior study is available for comparison at the time ofthis dictation. FINDINGS: Brain: No evidence of acute or chronic hemorrhage is identified. No evidence of acute cerebral infarction is seen. The ventricles are of normal size, shape, and morphology. No mass effect or midline shift is seen. Trace periventricular white matter FLAIR hyperintensities are nonspecific and likely a normal variant. No enhancing lesions are identified. The corpus callosum and sella appear normal. The cerebellar tonsils reaching downjust above the level of the foramen magnum. No herniation. The posteriorfossa, brainstem, and craniocervical junction appear otherwise grossly normal. The visualized portions of the mastoids appear normal. Normal flow voids are demonstrated in the carotid arteries and basilar artery. Thecalvarium and visualized cervical spine appear normal. Orbits: The patient is status post left cataract extraction. The globes and extraocular muscles appear otherwise grossly normal. The lacrimal glands appear normal. The optic nerves are symmetric in size and signal. No abnormal enhancement is identified in either optic nerve. The opticchiasm and suprasellar cistern appear normal. Meckel's cave and the cavernous sinuses appear normal. There is mild paranasal sinus disease. Angiographic findings: There is atherosclerotic disease involving the distal internal carotid arteries. There is moderate to severe stenosis of the left carotid terminus. There is also moderate to severe stenosis of the right carotid terminus. There is likely mild stenosis of the M1 segment of the leftMCA. Mild multifocal stenoses of the M1 segment of the right MCA. There ismild or moderate stenosis of the origin of the A1 segment of the right DYLAN. There is minimal stenosis of the A1 segment of the left ACAorigin/proximal segment. The anterior and middle cerebral arteries appear otherwisepatent. The left vertebral artery is dominant. The right vertebral artery is smaller in caliber and terminating in the right PICA. The distalvertebral arteries appear otherwise patent. The basilar artery is small incaliber. The posterior cerebral arteries appear normal with origin of both posterior cerebral arteries. Otherwise, no aneurysms, vascularocclusions, or hemodynamically significant intracranial stenoses are identified. Venographic findings: No significant/focal stenosis of the lateral transverse sinuses. Thereis however mild stenosis of the cervical left internal jugular vein. Ifthere is clinical concern, color Doppler of the neck vessels could be obtained for further evaluation. The dural sinuses appear normal without evidenceof thrombosis. The internal cerebral veins, veins of Kristie, and visible portions of the internal jugular veins appear normal without evidence of thrombosis. IMPRESSION: 1.No evidence of acute intracranial findings or abnormal enhancement. 2.No evidence of restricted diffusion to suggest an acute infarction. 3.No evidence of acute MRI findings in the orbits. 4.Atherosclerotic disease of the intracranial arterial vessels asoutlined. 5.Moderate to severe stenosis of the carotid terminus bilaterally and multifocal stenoses of the M1 segments and the A1 segments of the middle cerebral and anterior cerebral arteries as detailed above. CT angiogramof the head the neck is recommended for further evaluation. 6.No evidence of dural sinus thrombosis or significant stenosis. 7.No significant/focal stenosis of the lateral transverse sinuses. Thereis however mild stenosis of the cervical left internal jugular vein. Ifthere is clinical concern, color Doppler of the neck vessels could be obtained for further evaluation. > Interpreting Provider: Agnieszka Castro MD on 06/10/2024 10:52 AM Maliha Tilley MD MR ORDERABLES * MRI Orbits or Face Wwo Contrast (06/09/2024 11:16 PM END TRIMMER) Anatomical Region Laterality Modality Head Magnetic Resonan ce 06/10/2024 1:00 AM END TRIMMER Impressions 06/10/2024 10:52 AM END TRIMMER IMPRESSION: 1.No evidence of acute intracranial findings or abnormal enhancement. 2.No evidence of restricted diffusion to suggest an acute infarction. 3.No evidence of acute MRI findings in the orbits. 4.Atherosclerotic disease of the intracranial arterial vessels as outlined. 5.Moderate to severe stenosis of the carotid terminus bilaterally and multifocal stenoses of the M1 segments and the A1 segments of the middle cerebral and anterior cerebral arteries as detailed above. CT angiogram of the head the neck is recommended for further evaluation. 6.No evidence of dural sinus thrombosis or significant stenosis. 7.No significant/focal stenosis of the lateral transverse sinuses. There is however mild stenosis of the cervical left internal jugular vein. If there is clinical concern, color Doppler of the neck vessels could be obtained for further evaluation. > Interpreting Provider: Agnieszka Castro MD on 06/10/2024 10:52 AM Narrative 06/10/2024 10:52 AM END TRIMMER PROCEDURE: ??MRI BRAIN WWO CONTRAST, MRI ANGIO BRAIN ARTERIAL WO CONT, MRI ORBITS OR FACE WWO CONTRAST, MRI ANGIO BRAIN VENOUS WWO CONT, DATE/TIME OF EXAM: ??06/09/2024 11:15 PM, LOCATION ??[facility] INDICATION: H54.62: Vision loss of left eye ADDITIONAL CLINICAL INFORMATION: Ordering Provider Reason For Exam: ??r/o mass/IIH (accession [id number]), vision loss (accession [id number]), vision loss (accession [id number]), vision loss (accession [id number]) Technologist Note: ??Does the patient have a pacemaker or defibrillator?->No Does the patient have metal implants or stents?->No Additional: ??1 year old female with PMH of IDDM, OU cataracts (s/p lens surgery on the right) presents to ED for papilledema w/u sent in by ophthalmology. Pt with worsening left vision. States that she has vision at the top of her visual field due to constant glares of light which she has been experiencing for the past week. Was sent to retinal specialist by quantity surveyor for preoperative ophthalmic evaluation prior to left eye lens surgery. Denies headaches, rash, fever, n/v/d. . CONTRAST: ??GADOBUTROL 1 MMOL/ML IV SSM SO:5 mL EXAMINATION: 1.Magnetic resonance imaging (MRI) of the brain without and with contrast 2.MRI of the orbits without and with contrast 3.Magnetic resonance angiography (MRA) of the head without contrast 4.Magnetic resonance venography (MRV) of the head with contrast HISTORY: H54.62: Vision loss of left eye TECHNIQUE: 1.MRI of the brain was performed prior to and following the uneventful administration of 5 mL intravenous GADAVIST contrast according to standard protocol. 2.MRI of the orbits was performed prior to and following the uneventful administration of 5 mL intravenous GADAVIST contrast according to standard protocol. 3.MR arteriography of the head was performed without contrast utilizing time of flight technique. 4.MRV of the head was performed utilizing contrast enhanced time-resolved technique after the uneventful administration of 5 mL GADAVIST intravenous gadolinium contrast. COMPARISON: No prior study is available for comparison at the time of this dictation. FINDINGS: Brain: No evidence of acute or chronic hemorrhage is identified. No evidence of acute cerebral infarction is seen. The ventricles are of normal size, shape, and morphology. No mass effect or midline shift is seen. Trace periventricular white matter FLAIR hyperintensities are nonspecific and likely a normal variant. No enhancing lesions are identified. The corpus callosum and sella appear normal. The cerebellar tonsils reaching down just above the level of the foramen magnum. No herniation. The posterior fossa, brainstem, and craniocervical junction appear otherwise grossly normal. The visualized portions of the mastoids appear normal. Normal flow voids are demonstrated in the carotid arteries and basilar artery. The calvarium and visualized cervical spine appear normal. Orbits: The patient is status post left cataract extraction. The globes and extraocular muscles appear otherwise grossly normal. The lacrimal glands appear normal. The optic nerves are symmetric in size and signal. No abnormal enhancement is identified in either optic nerve. The optic chiasm and suprasellar cistern appear normal. Meckel's cave and the cavernous sinuses appear normal. There is mild paranasal sinus disease. Angiographic findings: There is atherosclerotic disease involving the distal internal carotid arteries. There is moderate to severe stenosis of the left carotid terminus. There is also moderate to severe stenosis of the right carotid terminus. There is likely mild stenosis of the M1 segment of the left MCA. Mild multifocal stenoses of the M1 segment of the right MCA. There is mild or moderate stenosis of the origin of the A1 segment of the right DYLAN. There is minimal stenosis of the A1 segment of the left DYLAN origin/proximal segment. The anterior and middle cerebral arteries appear otherwise patent. The left vertebral artery is dominant. The right vertebral artery is smaller in caliber and terminating in the right PICA. The distal vertebral arteries appear otherwise patent. The basilar artery is small in caliber. The posterior cerebral arteries appear normal with origin of both posterior cerebral arteries. Otherwise, no aneurysms, vascular occlusions, or hemodynamically significant intracranial stenoses are identified. Venographic findings: No significant/focal stenosis of the lateral transverse sinuses. There is however mild stenosis of the cervical left internal jugular vein. If there is clinical concern, color Doppler of the neck vessels could be obtained for further evaluation. The dural sinuses appear normal without evidence of thrombosis. The internal cerebral veins, veins of Kristie, and visible portions of the internal jugular veins appear normal without evidence of thrombosis. Procedure Note Agnieszka Castro MD - 06/10/2024 PROCEDURE: MRI BRAIN WWO CONTRAST, MRI ANGIO BRAIN ARTERIAL WO CONT,MRI ORBITS OR FACE WWO CONTRAST, MRI ANGIO BRAIN VENOUS WWO CONT, DATE/TIMEOF EXAM: 06/09/2024 11:15 PM, LOCATION [facility] INDICATION: H54.62: Vision loss of left eye ADDITIONAL CLINICAL INFORMATION: Ordering Provider Reason For Exam: r/o mass/IIH (accession [id number]), vision loss (accession [id number]), vision loss (accession [id number]), vision loss (accession [id number]) Technologist Note: Does the patient have a pacemaker ordefibrillator?->No Does the patient have metal implants or stents?->No Additional: 1 year old female with PMH of IDDM, OU cataracts (s/p lens surgery on the right) presents to ED for papilledema w/u sent in by ophthalmology. Pt with worsening left vision. States that she has visionat the top of her visual field due to constant glares of light which shehas been experiencing for the past week. Was sent to retinal specialist by quantity surveyor for preoperative ophthalmic evaluation prior to left eye lens surgery. Denies headaches, rash, fever, n/v/d. . CONTRAST: GADOBUTROL 1 MMOL/ML IV SSM SO:5 mL EXAMINATION: 1.Magnetic resonance imaging (MRI) of the brain without and withcontrast 2.MRI of the orbits without and with contrast 3.Magnetic resonance angiography (MRA) of the head without contrast 4.Magnetic resonance venography (MRV) of the head with contrast HISTORY: H54.62: Vision loss of left eye TECHNIQUE: 1.MRI of the brain was performed prior to and following the uneventful administration of 5 mL intravenous GADAVIST contrast according tostandard protocol. 2.MRI of the orbits was performed prior to and following the uneventful administration of 5 mL intravenous GADAVIST contrast according tostandard protocol. 3.MR arteriography of the head was performed without contrast utilizing time of flight technique. 4.MRV of the head was performed utilizing contrast enhancedtime-resolved technique after the uneventful administration of 5 mL GADAVISTintravenous gadolinium contrast. COMPARISON: No prior study is available for comparison at the time ofthis dictation. FINDINGS: Brain: No evidence of acute or chronic hemorrhage is identified. No evidence of acute cerebral infarction is seen. The ventricles are of normal size, shape, and morphology. No mass effect or midline shift is seen. Trace periventricular white matter FLAIR hyperintensities are nonspecific and likely a normal variant. No enhancing lesions are identified. The corpus callosum and sella appear normal. The cerebellar tonsils reaching downjust above the level of the foramen magnum. No herniation. The posteriorfossa, brainstem, and craniocervical junction appear otherwise grossly normal. The visualized portions of the mastoids appear normal. Normal flow voids are demonstrated in the carotid arteries and basilar artery. Thecalvarium and visualized cervical spine appear normal. Orbits: The patient is status post left cataract extraction. The globes and extraocular muscles appear otherwise grossly normal. The lacrimal glands appear normal. The optic nerves are symmetric in size and signal. No abnormal enhancement is identified in either optic nerve. The opticchiasm and suprasellar cistern appear normal. Meckel's cave and the cavernous sinuses appear normal. There is mild paranasal sinus disease. Angiographic findings: There is atherosclerotic disease involving the distal internal carotid arteries. There is moderate to severe stenosis of the left carotid terminus. There is also moderate to severe stenosis of the right carotid terminus. There is likely mild stenosis of the M1 segment of the leftMCA. Mild multifocal stenoses of the M1 segment of the right MCA. There ismild or moderate stenosis of the origin of the A1 segment of the right DYLAN. There is minimal stenosis of the A1 segment of the left ACAorigin/proximal segment. The anterior and middle cerebral arteries appear otherwisepatent. The left vertebral artery is dominant. The right vertebral artery is smaller in caliber and terminating in the right PICA. The distalvertebral arteries appear otherwise patent. The basilar artery is small incaliber. The posterior cerebral arteries appear normal with origin of both posterior cerebral arteries. Otherwise, no aneurysms, vascularocclusions, or hemodynamically significant intracranial stenoses are identified. Venographic findings: No significant/focal stenosis of the lateral transverse sinuses. Thereis however mild stenosis of the cervical left internal jugular vein. Ifthere is clinical concern, color Doppler of the neck vessels could be obtained for further evaluation. The dural sinuses appear normal without evidenceof thrombosis. The internal cerebral veins, veins of Kristie, and visible portions of the internal jugular veins appear normal without evidence of thrombosis. IMPRESSION: 1.No evidence of acute intracranial findings or abnormal enhancement. 2.No evidence of restricted diffusion to suggest an acute infarction. 3.No evidence of acute MRI findings in the orbits. 4.Atherosclerotic disease of the intracranial arterial vessels asoutlined. 5.Moderate to severe stenosis of the carotid terminus bilaterally and multifocal stenoses of the M1 segments and the A1 segments of the middle cerebral and anterior cerebral arteries as detailed above. CT angiogramof the head the neck is recommended for further evaluation. 6.No evidence of dural sinus thrombosis or significant stenosis. 7.No significant/focal stenosis of the lateral transverse sinuses. Thereis however mild stenosis of the cervical left internal jugular vein. Ifthere is clinical concern, color Doppler of the neck vessels could be obtained for further evaluation. > Interpreting Provider: Agnieszka Castro MD on 06/10/2024 10:52 AM Maliha Tilley MD MR ORDERABLES * MRI Angio Brain Venous Wwo Cont (06/09/2024 11:16 PM END TRIMMER) Anatomical Region Laterality Modality Head Magnetic Resonan ce 06/10/2024 1:00 AM END TRIMMER Impressions 06/10/2024 10:52 AM END TRIMMER IMPRESSION: 1.No evidence of acute intracranial findings or abnormal enhancement. 2.No evidence of restricted diffusion to suggest an acute infarction. 3.No evidence of acute MRI findings in the orbits. 4.Atherosclerotic disease of the intracranial arterial vessels as outlined. 5.Moderate to severe stenosis of the carotid terminus bilaterally and multifocal stenoses of the M1 segments and the A1 segments of the middle cerebral and anterior cerebral arteries as detailed above. CT angiogram of the head the neck is recommended for further evaluation. 6.No evidence of dural sinus thrombosis or significant stenosis. 7.No significant/focal stenosis of the lateral transverse sinuses. There is however mild stenosis of the cervical left internal jugular vein. If there is clinical concern, color Doppler of the neck vessels could be obtained for further evaluation. > Interpreting Provider: Agnieszka Castro MD on 06/10/2024 10:52 AM Narrative 06/10/2024 10:52 AM END TRIMMER PROCEDURE: ??MRI BRAIN WWO CONTRAST, MRI ANGIO BRAIN ARTERIAL WO CONT, MRI ORBITS OR FACE WWO CONTRAST, MRI ANGIO BRAIN VENOUS WWO CONT, DATE/TIME OF EXAM: ??06/09/2024 11:15 PM, LOCATION ??[facility] INDICATION: H54.62: Vision loss of left eye ADDITIONAL CLINICAL INFORMATION: Ordering Provider Reason For Exam: ??r/o mass/IIH (accession [id number]), vision loss (accession [id number]), vision loss (accession [id number]), vision loss (accession [id number]) Technologist Note: ??Does the patient have a pacemaker or defibrillator?->No Does the patient have metal implants or stents?->No Additional: ??1 year old female with PMH of IDDM, OU cataracts (s/p lens surgery on the right) presents to ED for papilledema w/u sent in by ophthalmology. Pt with worsening left vision. States that she has vision at the top of her visual field due to constant glares of light which she has been experiencing for the past week. Was sent to retinal specialist by quantity surveyor for preoperative ophthalmic evaluation prior to left eye lens surgery. Denies headaches, rash, fever, n/v/d. . CONTRAST: ??GADOBUTROL 1 MMOL/ML IV SSM SO:5 mL EXAMINATION: 1.Magnetic resonance imaging (MRI) of the brain without and with contrast 2.MRI of the orbits without and with contrast 3.Magnetic resonance angiography (MRA) of the head without contrast 4.Magnetic resonance venography (MRV) of the head with contrast HISTORY: H54.62: Vision loss of left eye TECHNIQUE: 1.MRI of the brain was performed prior to and following the uneventful administration of 5 mL intravenous GADAVIST contrast according to standard protocol. 2.MRI of the orbits was performed prior to and following the uneventful administration of 5 mL intravenous GADAVIST contrast according to standard protocol. 3.MR arteriography of the head was performed without contrast utilizing time of flight technique. 4.MRV of the head was performed utilizing contrast enhanced time-resolved technique after the uneventful administration of 5 mL GADAVIST intravenous gadolinium contrast. COMPARISON: No prior study is available for comparison at the time of this dictation. FINDINGS: Brain: No evidence of acute or chronic hemorrhage is identified. No evidence of acute cerebral infarction is seen. The ventricles are of normal size, shape, and morphology. No mass effect or midline shift is seen. Trace periventricular white matter FLAIR hyperintensities are nonspecific and likely a normal variant. No enhancing lesions are identified. The corpus callosum and sella appear normal. The cerebellar tonsils reaching down just above the level of the foramen magnum. No herniation. The posterior fossa, brainstem, and craniocervical junction appear otherwise grossly normal. The visualized portions of the mastoids appear normal. Normal flow voids are demonstrated in the carotid arteries and basilar artery. The calvarium and visualized cervical spine appear normal. Orbits: The patient is status post left cataract extraction. The globes and extraocular muscles appear otherwise grossly normal. The lacrimal glands appear normal. The optic nerves are symmetric in size and signal. No abnormal enhancement is identified in either optic nerve. The optic chiasm and suprasellar cistern appear normal. Meckel's cave and the cavernous sinuses appear normal. There is mild paranasal sinus disease. Angiographic findings: There is atherosclerotic disease involving the distal internal carotid arteries. There is moderate to severe stenosis of the left carotid terminus. There is also moderate to severe stenosis of the right carotid terminus. There is likely mild stenosis of the M1 segment of the left MCA. Mild multifocal stenoses of the M1 segment of the right MCA. There is mild or moderate stenosis of the origin of the A1 segment of the right DYLAN. There is minimal stenosis of the A1 segment of the left DYLAN origin/proximal segment. The anterior and middle cerebral arteries appear otherwise patent. The left vertebral artery is dominant. The right vertebral artery is smaller in caliber and terminating in the right PICA. The distal vertebral arteries appear otherwise patent. The basilar artery is small in caliber. The posterior cerebral arteries appear normal with origin of both posterior cerebral arteries. Otherwise, no aneurysms, vascular occlusions, or hemodynamically significant intracranial stenoses are identified. Venographic findings: No significant/focal stenosis of the lateral transverse sinuses. There is however mild stenosis of the cervical left internal jugular vein. If there is clinical concern, color Doppler of the neck vessels could be obtained for further evaluation. The dural sinuses appear normal without evidence of thrombosis. The internal cerebral veins, veins of Kristie, and visible portions of the internal jugular veins appear normal without evidence of thrombosis. Procedure Note Agnieszka Castro MD - 06/10/2024 PROCEDURE: MRI BRAIN WWO CONTRAST, MRI ANGIO BRAIN ARTERIAL WO CONT,MRI ORBITS OR FACE WWO CONTRAST, MRI ANGIO BRAIN VENOUS WWO CONT, DATE/TIMEOF EXAM: 06/09/2024 11:15 PM, LOCATION [facility] INDICATION: H54.62: Vision loss of left eye ADDITIONAL CLINICAL INFORMATION: Ordering Provider Reason For Exam: r/o mass/IIH (accession [id number]), vision loss (accession [id number]), vision loss (accession [id number]), vision loss (accession [id number]) Technologist Note: Does the patient have a pacemaker ordefibrillator?->No Does the patient have metal implants or stents?->No Additional: 1 year old female with PMH of IDDM, OU cataracts (s/p lens surgery on the right) presents to ED for papilledema w/u sent in by ophthalmology. Pt with worsening left vision. States that she has visionat the top of her visual field due to constant glares of light which shehas been experiencing for the past week. Was sent to retinal specialist by quantity surveyor for preoperative ophthalmic evaluation prior to left eye lens surgery. Denies headaches, rash, fever, n/v/d. . CONTRAST: GADOBUTROL 1 MMOL/ML IV SSM SO:5 mL EXAMINATION: 1.Magnetic resonance imaging (MRI) of the brain without and withcontrast 2.MRI of the orbits without and with contrast 3.Magnetic resonance angiography (MRA) of the head without contrast 4.Magnetic resonance venography (MRV) of the head with contrast HISTORY: H54.62: Vision loss of left eye TECHNIQUE: 1.MRI of the brain was performed prior to and following the uneventful administration of 5 mL intravenous GADAVIST contrast according tostandard protocol. 2.MRI of the orbits was performed prior to and following the uneventful administration of 5 mL intravenous GADAVIST contrast according tostandard protocol. 3.MR arteriography of the head was performed without contrast utilizing time of flight technique. 4.MRV of the head was performed utilizing contrast enhancedtime-resolved technique after the uneventful administration of 5 mL GADAVISTintravenous gadolinium contrast. COMPARISON: No prior study is available for comparison at the time ofthis dictation. FINDINGS: Brain: No evidence of acute or chronic hemorrhage is identified. No evidence of acute cerebral infarction is seen. The ventricles are of normal size, shape, and morphology. No mass effect or midline shift is seen. Trace periventricular white matter FLAIR hyperintensities are nonspecific and likely a normal variant. No enhancing lesions are identified. The corpus callosum and sella appear normal. The cerebellar tonsils reaching downjust above the level of the foramen magnum. No herniation. The posteriorfossa, brainstem, and craniocervical junction appear otherwise grossly normal. The visualized portions of the mastoids appear normal. Normal flow voids are demonstrated in the carotid arteries and basilar artery. Thecalvarium and visualized cervical spine appear normal. Orbits: The patient is status post left cataract extraction. The globes and extraocular muscles appear otherwise grossly normal. The lacrimal glands appear normal. The optic nerves are symmetric in size and signal. No abnormal enhancement is identified in either optic nerve. The opticchiasm and suprasellar cistern appear normal. Meckel's cave and the cavernous sinuses appear normal. There is mild paranasal sinus disease. Angiographic findings: There is atherosclerotic disease involving the distal internal carotid arteries. There is moderate to severe stenosis of the left carotid terminus. There is also moderate to severe stenosis of the right carotid terminus. There is likely mild stenosis of the M1 segment of the leftMCA. Mild multifocal stenoses of the M1 segment of the right MCA. There ismild or moderate stenosis of the origin of the A1 segment of the right DYLAN. There is minimal stenosis of the A1 segment of the left ACAorigin/proximal segment. The anterior and middle cerebral arteries appear otherwisepatent. The left vertebral artery is dominant. The right vertebral artery is smaller in caliber and terminating in the right PICA. The distalvertebral arteries appear otherwise patent. The basilar artery is small incaliber. The posterior cerebral arteries appear normal with origin of both posterior cerebral arteries. Otherwise, no aneurysms, vascularocclusions, or hemodynamically significant intracranial stenoses are identified. Venographic findings: No significant/focal stenosis of the lateral transverse sinuses. Thereis however mild stenosis of the cervical left internal jugular vein. Ifthere is clinical concern, color Doppler of the neck vessels could be obtained for further evaluation. The dural sinuses appear normal without evidenceof thrombosis. The internal cerebral veins, veins of Kristie, and visible portions of the internal jugular veins appear normal without evidence of thrombosis. IMPRESSION: 1.No evidence of acute intracranial findings or abnormal enhancement. 2.No evidence of restricted diffusion to suggest an acute infarction. 3.No evidence of acute MRI findings in the orbits. 4.Atherosclerotic disease of the intracranial arterial vessels asoutlined. 5.Moderate to severe stenosis of the carotid terminus bilaterally and multifocal stenoses of the M1 segments and the A1 segments of the middle cerebral and anterior cerebral arteries as detailed above. CT angiogramof the head the neck is recommended for further evaluation. 6.No evidence of dural sinus thrombosis or significant stenosis. 7.No significant/focal stenosis of the lateral transverse sinuses. Thereis however mild stenosis of the cervical left internal jugular vein. Ifthere is clinical concern, color Doppler of the neck vessels could be obtained for further evaluation. > Interpreting Provider: Agnieszka Castro MD on 06/10/2024 10:52 AM Maliha Tilley MD MR ORDERABLES * MRI Brain Wwo Contrast (06/09/2024 11:15 PM END TRIMMER) Anatomical Region Laterality Modality Head Magnetic Resonan ce 06/10/2024 1:00 AM END TRIMMER Impressions 06/10/2024 10:52 AM END TRIMMER IMPRESSION: 1.No evidence of acute intracranial findings or abnormal enhancement. 2.No evidence of restricted diffusion to suggest an acute infarction. 3.No evidence of acute MRI findings in the orbits. 4.Atherosclerotic disease of the intracranial arterial vessels as outlined. 5.Moderate to severe stenosis of the carotid terminus bilaterally and multifocal stenoses of the M1 segments and the A1 segments of the middle cerebral and anterior cerebral arteries as detailed above. CT angiogram of the head the neck is recommended for further evaluation. 6.No evidence of dural sinus thrombosis or significant stenosis. 7.No significant/focal stenosis of the lateral transverse sinuses. There is however mild stenosis of the cervical left internal jugular vein. If there is clinical concern, color Doppler of the neck vessels could be obtained for further evaluation. > Interpreting Provider: Agnieszka Castro MD on 06/10/2024 10:52 AM Narrative 06/10/2024 10:52 AM END TRIMMER PROCEDURE: ??MRI BRAIN WWO CONTRAST, MRI ANGIO BRAIN ARTERIAL WO CONT, MRI ORBITS OR FACE WWO CONTRAST, MRI ANGIO BRAIN VENOUS WWO CONT, DATE/TIME OF EXAM: ??06/09/2024 11:15 PM, LOCATION ??[facility] INDICATION: H54.62: Vision loss of left eye ADDITIONAL CLINICAL INFORMATION: Ordering Provider Reason For Exam: ??r/o mass/IIH (accession [id number]), vision loss (accession [id number]), vision loss (accession [id number]), vision loss (accession [id number]) Technologist Note: ??Does the patient have a pacemaker or defibrillator?->No Does the patient have metal implants or stents?->No Additional: ??1 year old female with PMH of IDDM, OU cataracts (s/p lens surgery on the right) presents to ED for papilledema w/u sent in by ophthalmology. Pt with worsening left vision. States that she has vision at the top of her visual field due to constant glares of light which she has been experiencing for the past week. Was sent to retinal specialist by quantity surveyor for preoperative ophthalmic evaluation prior to left eye lens surgery. Denies headaches, rash, fever, n/v/d. . CONTRAST: ??GADOBUTROL 1 MMOL/ML IV SSM SO:5 mL EXAMINATION: 1.Magnetic resonance imaging (MRI) of the brain without and with contrast 2.MRI of the orbits without and with contrast 3.Magnetic resonance angiography (MRA) of the head without contrast 4.Magnetic resonance venography (MRV) of the head with contrast HISTORY: H54.62: Vision loss of left eye TECHNIQUE: 1.MRI of the brain was performed prior to and following the uneventful administration of 5 mL intravenous GADAVIST contrast according to standard protocol. 2.MRI of the orbits was performed prior to and following the uneventful administration of 5 mL intravenous GADAVIST contrast according to standard protocol. 3.MR arteriography of the head was performed without contrast utilizing time of flight technique. 4.MRV of the head was performed utilizing contrast enhanced time-resolved technique after the uneventful administration of 5 mL GADAVIST intravenous gadolinium contrast. COMPARISON: No prior study is available for comparison at the time of this dictation. FINDINGS: Brain: No evidence of acute or chronic hemorrhage is identified. No evidence of acute cerebral infarction is seen. The ventricles are of normal size, shape, and morphology. No mass effect or midline shift is seen. Trace periventricular white matter FLAIR hyperintensities are nonspecific and likely a normal variant. No enhancing lesions are identified. The corpus callosum and sella appear normal. The cerebellar tonsils reaching down just above the level of the foramen magnum. No herniation. The posterior fossa, brainstem, and craniocervical junction appear otherwise grossly normal. The visualized portions of the mastoids appear normal. Normal flow voids are demonstrated in the carotid arteries and basilar artery. The calvarium and visualized cervical spine appear normal. Orbits: The patient is status post left cataract extraction. The globes and extraocular muscles appear otherwise grossly normal. The lacrimal glands appear normal. The optic nerves are symmetric in size and signal. No abnormal enhancement is identified in either optic nerve. The optic chiasm and suprasellar cistern appear normal. Meckel's cave and the cavernous sinuses appear normal. There is mild paranasal sinus disease. Angiographic findings: There is atherosclerotic disease involving the distal internal carotid arteries. There is moderate to severe stenosis of the left carotid terminus. There is also moderate to severe stenosis of the right carotid terminus. There is likely mild stenosis of the M1 segment of the left MCA. Mild multifocal stenoses of the M1 segment of the right MCA. There is mild or moderate stenosis of the origin of the A1 segment of the right DYLAN. There is minimal stenosis of the A1 segment of the left DYLAN origin/proximal segment. The anterior and middle cerebral arteries appear otherwise patent. The left vertebral artery is dominant. The right vertebral artery is smaller in caliber and terminating in the right PICA. The distal vertebral arteries appear otherwise patent. The basilar artery is small in caliber. The posterior cerebral arteries appear normal with origin of both posterior cerebral arteries. Otherwise, no aneurysms, vascular occlusions, or hemodynamically significant intracranial stenoses are identified. Venographic findings: No significant/focal stenosis of the lateral transverse sinuses. There is however mild stenosis of the cervical left internal jugular vein. If there is clinical concern, color Doppler of the neck vessels could be obtained for further evaluation. The dural sinuses appear normal without evidence of thrombosis. The internal cerebral veins, veins of Kristie, and visible portions of the internal jugular veins appear normal without evidence of thrombosis. Procedure Note Agnieszka Castro MD - 06/10/2024 PROCEDURE: MRI BRAIN WWO CONTRAST, MRI ANGIO BRAIN ARTERIAL WO CONT,MRI ORBITS OR FACE WWO CONTRAST, MRI ANGIO BRAIN VENOUS WWO CONT, DATE/TIMEOF EXAM: 06/09/2024 11:15 PM, LOCATION [facility] INDICATION: H54.62: Vision loss of left eye ADDITIONAL CLINICAL INFORMATION: Ordering Provider Reason For Exam: r/o mass/IIH (accession [id number]), vision loss (accession [id number]), vision loss (accession [id number]), vision loss (accession [id number]) Technologist Note: Does the patient have a pacemaker ordefibrillator?->No Does the patient have metal implants or stents?->No Additional: 1 year old female with PMH of IDDM, OU cataracts (s/p lens surgery on the right) presents to ED for papilledema w/u sent in by ophthalmology. Pt with worsening left vision. States that she has visionat the top of her visual field due to constant glares of light which shehas been experiencing for the past week. Was sent to retinal specialist by quantity surveyor for preoperative ophthalmic evaluation prior to left eye lens surgery. Denies headaches, rash, fever, n/v/d. . CONTRAST: GADOBUTROL 1 MMOL/ML IV SSM SO:5 mL EXAMINATION: 1.Magnetic resonance imaging (MRI) of the brain without and withcontrast 2.MRI of the orbits without and with contrast 3.Magnetic resonance angiography (MRA) of the head without contrast 4.Magnetic resonance venography (MRV) of the head with contrast HISTORY: H54.62: Vision loss of left eye TECHNIQUE: 1.MRI of the brain was performed prior to and following the uneventful administration of 5 mL intravenous GADAVIST contrast according tostandard protocol. 2.MRI of the orbits was performed prior to and following the uneventful administration of 5 mL intravenous GADAVIST contrast according tostandard protocol. 3.MR arteriography of the head was performed without contrast utilizing time of flight technique. 4.MRV of the head was performed utilizing contrast enhancedtime-resolved technique after the uneventful administration of 5 mL GADAVISTintravenous gadolinium contrast. COMPARISON: No prior study is available for comparison at the time ofthis dictation. FINDINGS: Brain: No evidence of acute or chronic hemorrhage is identified. No evidence of acute cerebral infarction is seen. The ventricles are of normal size, shape, and morphology. No mass effect or midline shift is seen. Trace periventricular white matter FLAIR hyperintensities are nonspecific and likely a normal variant. No enhancing lesions are identified. The corpus callosum and sella appear normal. The cerebellar tonsils reaching downjust above the level of the foramen magnum. No herniation. The posteriorfossa, brainstem, and craniocervical junction appear otherwise grossly normal. The visualized portions of the mastoids appear normal. Normal flow voids are demonstrated in the carotid arteries and basilar artery. Thecalvarium and visualized cervical spine appear normal. Orbits: The patient is status post left cataract extraction. The globes and extraocular muscles appear otherwise grossly normal. The lacrimal glands appear normal. The optic nerves are symmetric in size and signal. No abnormal enhancement is identified in either optic nerve. The opticchiasm and suprasellar cistern appear normal. Meckel's cave and the cavernous sinuses appear normal. There is mild paranasal sinus disease. Angiographic findings: There is atherosclerotic disease involving the distal internal carotid arteries. There is moderate to severe stenosis of the left carotid terminus. There is also moderate to severe stenosis of the right carotid terminus. There is likely mild stenosis of the M1 segment of the leftMCA. Mild multifocal stenoses of the M1 segment of the right MCA. There ismild or moderate stenosis of the origin of the A1 segment of the right DYLAN. There is minimal stenosis of the A1 segment of the left ACAorigin/proximal segment. The anterior and middle cerebral arteries appear otherwisepatent. The left vertebral artery is dominant. The right vertebral artery is smaller in caliber and terminating in the right PICA. The distalvertebral arteries appear otherwise patent. The basilar artery is small incaliber. The posterior cerebral arteries appear normal with origin of both posterior cerebral arteries. Otherwise, no aneurysms, vascularocclusions, or hemodynamically significant intracranial stenoses are identified. Venographic findings: No significant/focal stenosis of the lateral transverse sinuses. Thereis however mild stenosis of the cervical left internal jugular vein. Ifthere is clinical concern, color Doppler of the neck vessels could be obtained for further evaluation. The dural sinuses appear normal without evidenceof thrombosis. The internal cerebral veins, veins of Kristie, and visible portions of the internal jugular veins appear normal without evidence of thrombosis. IMPRESSION: 1.No evidence of acute intracranial findings or abnormal enhancement. 2.No evidence of restricted diffusion to suggest an acute infarction. 3.No evidence of acute MRI findings in the orbits. 4.Atherosclerotic disease of the intracranial arterial vessels asoutlined. 5.Moderate to severe stenosis of the carotid terminus bilaterally and multifocal stenoses of the M1 segments and the A1 segments of the middle cerebral and anterior cerebral arteries as detailed above. CT angiogramof the head the neck is recommended for further evaluation. 6.No evidence of dural sinus thrombosis or significant stenosis. 7.No significant/focal stenosis of the lateral transverse sinuses. Thereis however mild stenosis of the cervical left internal jugular vein. Ifthere is clinical concern, color Doppler of the neck vessels could be obtained for further evaluation. > Interpreting Provider: Agnieszka Castro MD on 06/10/2024 10:52 AM Maliha Tilley MD MR ORDERABLES * XR Chest 2Vw (06/09/2024 7:34 PM END TRIMMER) Anatomical Region Laterality Modality Chest Digital Radiogra phy 06/09/2024 7:46 PM END TRIMMER Narrative 06/10/2024 8:29 AM END TRIMMER PROCEDURE: ??XR CHEST 2VW, DATE/TIME OF EXAM: ??06/09/2024 7:34 PM, LOCATION [facility] INDICATION: H54.62: Vision loss of left eye ADDITIONAL CLINICAL INFORMATION: Ordering Provider Reason For Exam: ??r/o infection COMPARISON: None. TECHNIQUE: Frontal and lateral radiographs of the chest. FINDINGS/IMPRESSION: Very subtle nodular airspace opacity in the right midlung on the AP view and no correlate on the lateral view likely corresponds to the costochondral junction of the right fourth anterior rib. Otherwise, no confluent consolidation, pleural effusion, or pneumothorax. The cardiomediastinal silhouette is normal. The visible bony thorax is intact. Report dictated by Moon Reid MD (academic affairs vice president). Randy Freeman MD have personally reviewed and interpreted this examination/study. > Interpreting Provider: Randy Pagan MD on 06/10/2024 8:29 AM Procedure Note Randy Pagan MD - 06/10/2024 PROCEDURE: XR CHEST 2VW, DATE/TIME OF EXAM: 06/09/2024 7:34 PM, LOCATION [facility] INDICATION: H54.62: Vision loss of left eye ADDITIONAL CLINICAL INFORMATION: Ordering Provider Reason For Exam: r/o infection COMPARISON: None. TECHNIQUE: Frontal and lateral radiographs of the chest. FINDINGS/IMPRESSION: Very subtle nodular airspace opacity in the right midlung on the AP view and no correlate on the lateral view likely corresponds to the costochondral junction of the right fourth anterior rib. Otherwise, no confluent consolidation, pleural effusion, or pneumothorax. The cardiomediastinal silhouette is normal. The visible bony thorax isintact. Report dictated by Moon Reid MD (academic affairs vice president). Randy Freeman MD have personally reviewed and interpreted this examination/study. > Interpreting Provider: Randy Pagan MD on 06/10/2024 8:29 AM Maliha Tilley MD DIAGNOSTIC IMAGING O RDERABLES * LYME DISEASE TOTAL AB W RFLX IMMUNOASSAY (06/09/2024 7:13 PM END TRIMMER) [facility] Lyme Antibody Total Negative Negative 06/11/2024 10:07 AM END TRIMMER [facility] ([facility]) Comment: Lyme antibodies not detected. Reflex testing is not indicated. No laboratory evidence of infection with B. burgdorferi (Lyme disease). Negative results may occur in patients recently infected (less than or equal to 14 days) with B. burgdorferi. ??If recent infection is suspected, repeat testing on a new sample collected in 7 to 14 days is recommended. Blood BLOOD SPECIMEN / Unknown Venipuncture / Unknown 06/09/2024 7:13 PM END TRIMMER 06/09/2024 7:20 PM END TRIMMER Narrative [facility] ([facility]) - 06/11/2024 10:07 AM END TRIMMER Performed at: ??01 - [facility] [address] [place], [place] ??[id number] Entry Level Chemist: Toni Johnston PhD, Phone: ??[phone] Maliha Tilley MD LAB - CHEMISTRY VANESSA TOMLIN [facility] ([facility]) [address] [place] [address] * QUANTIFERON-TB GOLD PLUS 4-TUBE (06/09/2024 7:13 PM END TRIMMER) [facility] QuantiFERON Mitogen Minus NIL 9.95 IU/mL 06/12/2024 6:18 AM END TRIMMER [facility]) QuantiFERON Nil Value 0.05 IU/mL 06/12/2024 6:18 AM END TRIMMER [facility]) QuantiFERON Plus TB1 Minus NIL 0.00 <=0.34 IU/mL 06/12/2024 6:18 AM END TRIMMER [facility]) QuantiFERON Plus TB2 Minus NIL 0.00 <=0.34 IU/mL 06/12/2024 6:18 AM END TRIMMER [facility]) QuantiFERON-TB Gold Plus Negative Negative 06/12/2024 6:18 AM END TRIMMER [facility]) Comment: INTERPRETIVE INFORMATION:Quantiferon TB Gold Plus Interferon gamma release is measured for specimens from each of the four collection tubes. A qualitative result (Negative, Positive, or Indeterminate) is based on interpretation of the four values: NIL, MITOGEN minus NIL (MITOGEN-NIL), TB1 minus NIL (TB1-NIL), and TB2 minus NIL (TB2-NIL). The NIL value represents nonspecific reactivity produced by the patient specimen. The MITOGEN-NIL value serves as the positive control for the patient specimen, demonstrating successful lymphocyte activity. The TB1-NIL tube specifically detects CD4+ lymphocyte reactivity, specifically stimulated by the TB1 antigens. The TB2-NIL tube detects both CD4+ and CD8+ lymphocyte reactivity, stimulated by TB2 antigens. An overall Negative result does not completely rule out TB infection. A false-positive result in the absence of other clinical evidence of TB infection is not uncommon. Refer to: Updated Guidelines for Using Interferon Gamma Release Assays to Detect Mycobacterium tuberculosis Infection -- [place], 2010 (http://www.cdc.gov/mmwr/preview/mmwrhtml/ll8858b5.htm), for more information concerning test performance in low-prevalence populations and use in occupational screening. Performed By: [place] [address] Library Sales Consultant: Yusuf Castro MD, PhD CLIA Number: [id number] Blood BLOOD SPECIMEN / Unknown Venipuncture / Unknown 06/09/2024 7:13 PM END TRIMMER 06/09/2024 7:24 PM END TRIMMER Maliha Tilley MD LAB - CHEMISTRY VANESSA TOMLIN Performing Organization Address [facility]/ZIP Co de Phone Number [facility]) [address] [place] [address] * HIV-1 HIV-2 ANTIBODY + HIV P24 AG PANEL (06/09/2024 7:13 PM END TRIMMER) Pathologist [facility] HIV Antigen/Antibod y 1 & 2 Non-reacti ve Non-react stephanie 06/09/2024 8:03 PM END TRIMMER [facility] Comment:No Laboratory eviden ce of HIV infection. Blood BLOOD SPECIMEN / Unknown Venipuncture / Unknown 06/09/2024 7:13 PM END TRIMMER 06/09/2024 7:20 PM END TRIMMER Maliha Tilley MD LAB - CHEMISTRY VANESSA TOMLIN [facility] [address] [place] [address], [facility] [phone] * C-REACTIVE PROTEIN (06/09/2024 7:13 PM END TRIMMER) Pathologist [facility] C-Reactive Protein <0.5 <=0.5 mg/dL 06/09/2024 7:57 PM END TRIMMER [facility] Blood BLOOD SPECIMEN / Unknown Venipuncture / Unknown 06/09/2024 7:13 PM END TRIMMER 06/09/2024 7:24 PM END TRIMMER Maliha Tilley MD LAB - CHEMISTRY ORDE SADA Performing Organization Address City/[facility]/ZIP Co de Phone Number [address] [address], [facility] [phone] * (ABNORMAL) ERYTHROCYTE SEDIMENTATION RATE (06/09/2024 7:13 PM END TRIMMER) Erythrocyte Sedimentation Rate Westergren 32(H) 0 - 20 MM/HR 06/09/2024 8:25 PM [facility] Blood BLOOD SPECIMEN / Unknown Venipuncture / Unknown 06/09/2024 7:13 PM END TRIMMER 06/09/2024 7:24 PM END TRIMMER Maliha Tilley MD LAB - HEMATOLOGY TASHA MOTTA Performing Organization Address [facility]/ZIP Co de Phone Number [address] [address], [facility] [phone] * CBC W AUTO DIFFERENTIAL (06/09/2024 7:13 PM END TRIMMER) WBC 6.6 4.0 - 10.7 x10E9/L 06/09/2024 7:29 PM [facility] RBC Count 4.91 3.90 - 5.20 x10E12/L 06/09/2024 7:29 PM [facility] Hemoglobin 13.7 11.9 - 15.8 g/dL 06/09/2024 7:29 PM [facility] Hematocrit 39.6 34.8 - 46.1 % 06/09/2024 7:29 PM [facility] MCV 80.7 80.0 - 98.0 fL 06/09/2024 7:29 PM [facility] MCH 27.9 26.7 - 33.6 pg 06/09/2024 7:29 PM [facility] MCHC 34.6 31.7 - 36.3 g/dL 06/09/2024 7:29 PM [facility] RDW-CV 14.3 11.3 - 14.8 % 06/09/2024 7:29 PM [facility] Platelet Count 385 150 - 420 x10E9/L 06/09/2024 7:29 PM [facility] MPV 9.8 7.8 - 11.4 fL 06/09/2024 7:29 PM [facility] Neutrophil % 61.7 41.0 - 74.0 % 06/09/2024 7:29 PM [facility] Lymphocyte % 27.1 17.0 - 47.0 % 06/09/2024 7:29 PM [facility] Monocyte % 6.2 3.0 - 11.0 % 06/09/2024 7:29 PM [facility] Eosinophil % 3.7 0.0 - 7.0 % 06/09/2024 7:29 PM [facility] Basophil % 0.8 0.0 - 1.6 % 06/09/2024 7:29 PM [facility] Immature Granulocytes % 0.5 0.0 - 1.0 % 06/09/2024 7:29 PM [facility] Neutrophil Absolute 4.06 1.60 - 7.50 x10E9/L 06/09/2024 7:29 PM [facility] Lymphocyte Absolute 1.78 1.00 - 4.40 x10E9/L 06/09/2024 7:29 PM [facility] Monocyte Absolute 0.41 0.15 - 1.00 x10E9/L 06/09/2024 7:29 PM [facility] Eosinophil Absolute 0.24 0.00 - 0.60 x10E9/L 06/09/2024 7:29 PM [facility] Basophil Absolute 0.05 0.00 - 0.13 x10E9/L 06/09/2024 7:29 PM [facility] Blood BLOOD SPECIMEN / Unknown Venipuncture / Unknown 06/09/2024 7:13 PM END TRIMMER 06/09/2024 7:24 PM [facility] Maliha Tilley MD LAB - HEMATOLOGY ORD ERABLES [facility] [address] [place] [address] [phone] * (ABNORMAL) COMPREHENSIVE METABOLIC PANEL (06/09/2024 7:13 PM [facility]) BUN 13 7 - 26 mg/dL 06/09/2024 7:58 PM [facility] Creatinine 0.49(L) 0.56 - 0.96 mg/dL 06/09/2024 7:58 PM [facility] Sodium 137 136 - 145 mmol/L 06/09/2024 7:58 PM [facility] Potassium 3.7 3.5 - 4.5 mmol/L 06/09/2024 7:58 PM [facility] Chloride 102 98 - 107 mmol/L 06/09/2024 7:58 PM [facility] CO2 20(L) 22 - 29 mmol/L 06/09/2024 7:58 PM [facility] Glucose 504(H) 70 - 99 mg/dL 06/09/2024 7:58 PM [facility] Calcium 8.2(L) 8.4 - 10.2 mg/dL 06/09/2024 7:58 PM [facility] Protein Total 7.0 6.0 - 8.3 g/dL 06/09/2024 7:58 PM [facility] Albumin 3.3(L) 3.4 - 5.0 g/dL 06/09/2024 7:58 PM [facility] Bilirubin Total 0.2 0.2 - 1.2 mg/dL 06/09/2024 7:58 PM [facility] Alkaline Phosphatase 131 40 - 150 U/L 06/09/2024 7:58 PM [facility] ALT 9 5 - 55 U/L 06/09/2024 7:58 PM [facility] AST 18 5 - 34 U/L 06/09/2024 7:58 PM [facility] Anion Gap 15 6 - 16 06/09/2024 7:58 PM [facility] BUN/Creatinine Ratio 27(H) 7 - 23 06/09/2024 7:58 PM [facility] Osmolality Calculated 307(H) 275 - 295 mOsm/kg 06/09/2024 7:58 PM [facility] Albumin/Globulin Ratio 0.9(L) 1.1 - 2.3 06/09/2024 7:58 PM END TRIMMER [facility] eGFR by CKD-EPI >90 >=90 mL/min/1.7 3 m2 06/09/2024 7:58 PM END TRIMMER [facility] Blood BLOOD SPECIMEN / Unknown Venipuncture / Unknown 06/09/2024 7:13 PM END TRIMMER 06/09/2024 7:24 PM END TRIMMER Maliha Tilley MD LAB - CHEMISTRY VANESSA TOMLIN Performing Organization Address [facility] Co de Phone Number [address] [address], [facility] [phone] * HCG BETA BLOOD QUANTITATIVE (06/09/2024 7:13 PM END TRIMMER) [facility] Beta-hCG Total Quantitative <3 mIU/mL 06/09/2024 7:57 PM END TRIMMER [facility] Comment: HCG Numeric Result Interpretation: ? Non- Females: ? < 5 mIU/mL ? Post-Menopausal Females: ??< 7 mIU/mL ? This assay is cleared for use in the early detection of only. It is not approved for any other uses such as tumor marker screening, tumor marker monitoring, etc. and should not be used for any other purposes. Blood BLOOD SPECIMEN / Unknown Venipuncture / Unknown 06/09/2024 7:13 PM END TRIMMER 06/09/2024 7:24 PM END TRIMMER Maliha Tilley MD LAB - CHEMISTRY VANESSA TOMLIN Performing Organization Address [facility] Co de Phone Number [address] [address], [facility] [phone] * B-Scan Anterior Immersion (06/09/2024 11:41 AM END TRIMMER) Anatomical Region Laterality Modality Head External-Camera Photography Narrative 06/09/2024 4:44 PM END TRIMMER Images from the original result were not included. B scan OD without RD or vitreous opacity Sandeep Hernandez MD OPHTHALMOLOGY SCHED ORD W PACS * FUNDUS PHOTO BOTH EYES (06/09/2024 11:41 AM END TRIMMER) Anatomical Region Laterality Modality Head External-Camera Photography Narrative 06/09/2024 4:44 PM END TRIMMER Images from the original result were not included. Fundus photos OS with disc edema and yamini's lines Sandeep Hernandez MD OPHTHALMOLOGY SCHED ORD W PACS * LUIS AUTO VISUAL FIELD EXTENDED (06/09/2024 9:31 AM END TRIMMER) Anatomical Region Laterality Modality Head External-Camera Photography Narrative 06/09/2024 4:44 PM END TRIMMER Images from the original result were not included. Sandeep Hernandez MD OPHTHALMOLOGY SCHED ORD W PACS * RETINAL ANALYSIS OCT (06/09/2024 9:31 AM END TRIMMER) Anatomical Region Laterality Modality Head External-Camera Photography Sandeep Hernandez MD OPHTHALMOLOGY SCHED ORD W PACS * EYE EXAM (06/01/2024) Anatomical Region Laterality Modality Other Narrative 06/01/2024 Ordered by an unspecified provider. Scanned Document SCANNING ONLY * HEMOGLOBIN A1C - POINT OF CARE (AMB) [facility] (03/29/2024 2:44 PM CDT) Hemoglobin A1c POCT 15 % [facility] [address] [facility] Blood BLOOD SPECIMEN / Unknown 03/29/2024 2:44 PM CDT Elder Garza MD LAB - POINT OF CARE ORDERABLES [facility] [address] [facility] [address] [facility] [place] [address], [facility] [phone] from Last 3 Months or Most Recently Relevant to Health Maintenance Care Teams Equipment Hire Manager Relationship Specialty Start Date End Date Joesph Jacobo MD [address] [place] [phone] PCP - General Internal Medicine 08/10/24
--- OUTSIDE RECORDS SUMMARY | 2024-08-13 05:38 | XMS_ITS | Encounter Summary ---
Author Organization [facility] Address [address] [place] [address] Care Team Providers Care Er Medical Technician Name Role Phone Adair Finn APRN-LOUNGE CAR ATTENDANT Primary Care P aprilvaleri Encounter Details Date Type Department Care Team (Latest Contact Info) Description 06/09/2024 9:40 AM CLOSING SPECIALIST Clinical Support [facility] - Ophthalmology [address] [place] [phone] Sandeep Hernandez MD [address] [place] [address] [place] [phone] Optic disc edema (Primary Dx) Social History Tobacco Use Types Packs/Day Years Used Date Smoking Tobacco: Unknown Sex and Gender Information Value Date Recorded Sex Assigned at Not on file Gender Identity Not on file Sexual Orientation Not on file documented as of this encounter Plan of Treatment Upcoming Encounters Date Type Department Care Team (Late st Contact Info) Description 08/23/2024 10:15 AM CLOSING SPECIALIST Office Visit [facility] - Ophthalmology [address] [place] [phone] Sandeep Hernandez MD [address] [place] [address] [place] [phone] 09/27/2024 9:45 AM CLOSING SPECIALIST Office Visit [facility] - Ophthalmology [address] [place] [phone] Buddy Fuller MD [address] [facility] [place] [phone] 10/04/2024 1:00 PM CLOSING SPECIALIST Office Visit [facility] - Endocrinology [address] [place] [address], [place] [phone] Rosalia Hair MD [address] [facility] [place] [phone] 02/07/2025 8:30 AM CDT Office Visit [facility] - Rheumatology [address] [place] [address], [place] [phone] Roni Castañeda MD [address] [facility] [place] [phone] documented as of this encounter Procedures Procedure Name Priority Date/Time Associated Diagnosis Comments LUIS AUTO VISUAL FIELD EXTENDED Routine 06/09/2024 9:31 AM CLOSING SPECIALIST Optic disc edema documented in this encounter Results * LUIS AUTO VISUAL FIELD EXTENDED (06/09/2024 9:31 AM CLOSING SPECIALIST) Anatomical Region Laterality Modality Head External-Camera Photography Narrative 06/09/2024 4:44 PM CLOSING SPECIALIST Images from the original result were not included. Sandeep Hernandez MD OPHTHALMOLOGY SCHED ORD W PACS documented in this encounter Visit Diagnoses Diagnosis Optic disc edema- Primary Papilloedema, unspecified documented in this encounter Care Teams Er Medical Technician Relationship Specialty Start Date End Date Adair Finn, MEAT [employer]ODUCTS DEMONSTRATOR-LOUNGE CAR ATTENDANT [address] [place] [address] PCP - General Nurse Practitioner Adult Health 03/29/24 08/09/24 documented as of this encounter
--- OUTSIDE RECORDS SUMMARY | 2024-08-13 05:38 | XMS_ITS | Encounter Summary ---
Author Organization [facility] Address [facility] [place] [address] Care Team Providers Care Cleat Layer Name Role Phone Adair Finn APRN-CONTRACT ATTORNEY Primary Care P rovider Joesph Jacobo MD Primary Care Provider [phone] Reason for Visit * Reason Comments Refill Request Encounter Details Date Type Department Care Team (Late st Contact Info) Description 07/17/2024 Refill [facility] [address] [place] [address], [facility] [place] [phone] Rosalia Hari MD [address] [place] [address] [phone] Refill Request Social History Tobacco Use Types Packs/Day Years Used Date Smoking Tobacco: Unknown Sex and Gender Information Value Date Recorded Sex Assigned at Not on file Gender Identity Not on file Sexual Orientation Not on file documented as of this encounter Miscellaneous Notes * Telephone Encounter - Ivana LondonBHAVESH - 07/17/2024 11:23 AM CST Refill Request Madeleine Reji ANDRES: 8--Jun scheduled: 10/04/2024 Allergies: No Known Allergies Pended Medication Order: Requested Prescriptions Pending Prescriptions Disp Refills levothyroxine (Synthroid) 100 MCG tablet [Pharmacy Med Name: LEVOTHYROXINE 0.100MG (100MCG) TAB] 90tablet Sig: TAKE 1 CAPSULE BY MOUTH EVERY MORNING SETTER documented in this encounter Plan of Treatment Upcoming Encounters Date Type Department Care Team (Late st Contact Info) Description 08/23/2024 10:15 AM LOOM SETTER Office Visit [facility] [address] [place] [phone] Sandeep Hernandez MD [address] [place] [address] [place] [phone] 09/27/2024 9:45 AM LOOM SETTER Office Visit [facility] [address] [place] [address] [phone] Buddy Fuller MD [address] [place] [address] [place] [phone] 10/04/2024 1:00 PM LOOM SETTER Office Visit [facility] End[facility] [address] [place] [address] [phone] Rosalia Hair MD [facility] [phone] 02/07/2025 8:30 AM CDT Office Visit [facility] Rhe[facility] [address] [place] [address] [phone] Roni Castañeda MD [address] [place] [address] [place] [phone] documented as of this encounter Visit Diagnoses Not on filedocumented in this encounter Care Teams Cleat Layer Relationship Specialty Start Date End Date Adair Finn, TRISHA-CONTRACT ATTORNEY [address] [place] [address] PCP - General Nurse Practitioner Adult Health 03/29/24 08/09/24 Joesph Jacobo MD [address] [place] [phone] PCP - General Internal Medicine 08/10/24 documented as of this encounter
--- OUTSIDE RECORDS SUMMARY | 2024-08-13 05:38 | XMS_ITS | Encounter Summary ---
Author Organization [facility] Address [address] [facility] [place] [address] Care Team Providers Care Sewer Hand Name Role Phone Adair Finn APRN-VICE SQUAD POLICE OFFICER Primary Care P rovider Reason for Visit * Reason Onset Date Comments Pre Authorization 07/28/2024 Dexcom G6 sens ors Encounter Details Date Type Department Care Team (Late Contact Info) Description 07/28/2024 Telephone [facility] [address] [place] [phone] Elder Garza MD [address] [place] [phone] Pre Authorization (Dexcom G6 sensors) Social History Tobacco Use Types Packs/Day Years Used Date Smoking Tobacco: Unknown Sex and Gender Information Value Date Recorded Sex Assigned at Not on file Gender Identity Not on file Sexual Orientation Not on file documented as of this encounter Miscellaneous Notes * Telephone Encounter - Carine Khalil RN - 07/28/2024 1:42 PM CST PA for Dexcom G6 sensors was Approved by insurance. Pharmacy notified. REPRESENTATIVE documented in this encounter Plan of Treatment Upcoming Encounters Date Type Department Care Team (Late Contact Info) Description 08/23/2024 10:15 AM MILL REPRESENTATIVE Office Visit [facility] [address] [place] [phone] Sandeep Hernandez MD [address] [place] [address] [place] [phone] 09/27/2024 9:45 AM MILL REPRESENTATIVE Office Visit [facility] [address] [place] [address], [place] [phone] Buddy Fuller MD [address] [place] [address] [place] [phone] 10/04/2024 1:00 PM MILL REPRESENTATIVE [facility] [address] [place] [phone] Rosalia Hair MD [facility] [place] [phone] 02/07/2025 8:30 AM CDT Office Visit [facility] - Rheumatology [address] [place] [phone] Roni Castañeda MD [address] [place] [address] [place] [phone] documented as of this encounter Visit Diagnoses Not on filedocumented in this encounter Care Teams Sewer Hand Relationship Specialty Start Date End Date Adair Finn, CINEMA OR THEATRE MANAGER-VICE SQUAD POLICE OFFICER [address] [place] [address] PCP - General Nurse Practitioner Adult Health 03/29/24 08/09/24 documented as of this encounter
--- OUTSIDE RECORDS SUMMARY | 2024-08-13 05:38 | XMS_ITS | Encounter Summary ---
Author Organization [facility] Address [address] [facility] [place] [address] Care Team Providers Care Truck Shop Supervisor Name Role Phone Adair Finn APRN-CLINICAL NEUROPSYCHOLOGIST Primary Care P rojadielder Reason for Visit * Reason Onset Date Comments Medication Prior Auth Request 07/10/2024 De xcom G6 sensor Encounter Details Date Type Department Care Team (Late Contact Info) Description 07/10/2024 Telephone [facility] [address] [place] [address], [place] [phone] Elder Garza MD [address] [place] [phone] Medication Prior Auth Request (Dexcom G6 sensor) Social History Tobacco Use Types Packs/Day Years Used Date Smoking Tobacco: Unknown Sex and Gender Information Value Date Recorded Sex Assigned at Not on file Gender Identity Not on file Sexual Orientation Not on file documented as of this encounter Miscellaneous Notes * Telephone Encounter - Carine Khalil RN - 07/10/2024 2:08 PM CST Spoke with pharmacy-verified knowledge of approval, however, too soon to refill -noted that patientreported some sensors malfunctioned therefore doesn't have any more-pharmacy instructed her to contact scuba diving teacher. ARCH FOOD TECHNOLOGIST documented in this encounter Plan of Treatment Upcoming Encounters Date Type Department Care Team (Late Contact Info) Description 08/23/2024 10:15 AM RESEARCH FOOD TECHNOLOGIST Office Visit [facility] [address] [place] [phone] Sandeep Hernandez MD [address] [place] [address] [place] [phone] 09/27/2024 9:45 AM RESEARCH FOOD TECHNOLOGIST Office Visit [facility] [address] [place] [phone] Buddy Fuller MD [address] [place] [address] [place] [phone] 10/04/2024 1:00 PM RESEARCH FOOD TECHNOLOGIST Office Visit [facility] Endocrinology [address] [place] [phone] Rosalia Hair MD [facility] [place] [phone] 02/07/2025 8:30 AM CDT Office Visit [facility] - Rheumatology [address] [place] [phone] Roni Castañeda MD [address] [place] [address] [place] [phone] documented as of this encounter Visit Diagnoses Not on filedocumented in this encounter Care Teams Truck Shop Supervisor Relationship Specialty Start Date End Date Adair Finn, CLAIMS SORTER-CLINICAL NEUROPSYCHOLOGIST [address] [place] [address] PCP - General Nurse Practitioner Adult Health 03/29/24 08/09/24 documented as of this encounter
--- OUTSIDE RECORDS SUMMARY | 2024-08-13 05:38 | XMS_ITS | Encounter Summary ---
Author Organization [facility] Address [facility] [address] Care Team Providers Care Ostomy Nurse Name Role Phone Adair Finn APRN-GANG SUPERVISOR Primary Care P rojadielder Reason for Visit * Reason Onset Date Comments Medication Prior Auth Request 07/07/2024 De xcom G6 Encounter Details Date Type Department Care Team (Late Contact Info) Description 07/07/2024 Telephone [facility] [address] [place] [phone] Rsoalia Hair MD [address] [place] [phone] Medication Prior Auth Request (Dexcom G6) Social History Tobacco Use Types Packs/Day Years Used Date Smoking Tobacco: Unknown Sex and Gender Information Value Date Recorded Sex Assigned at Not on file Gender Identity Not on file Sexual Orientation Not on file documented as of this encounter Miscellaneous Notes * Telephone Encounter - Carine Khalil RN - 07/07/2024 3:26 PM CST PA for Dexcom G6 was Approved by insurance. Pharmacy notified. CTOR VALIDATION documented in this encounter Plan of Treatment Upcoming Encounters Date Type Department Care Team (Late Contact Info) Description 08/23/2024 10:15 AM DIRECTOR VALIDATION Office Visit [facility] [address] [place], [place] [phone] Sandeep Hernandez MD [facility] DEPT [place] [phone] 09/27/2024 9:45 AM DIRECTOR VALIDATION Office Visit [facility] [address] [place] [phone] Buddy Fuller MD [facility] [place] [phone] 10/04/2024 1:00 PM DIRECTOR VALIDATION Office Visit [facility] - Endocrinology [address] [place] [phone] Rosalia Hair MD [address] [facility] [place] [phone] 02/07/2025 8:30 AM CDT Office Visit [facility] - Rheumatology [address] [place] [phone] Roni Castañeda MD [facility]5 [facility] [place] [phone] documented as of this encounter Visit Diagnoses Not on filedocumented in this encounter Care Teams Ostomy Nurse Relationship Specialty Start Date End Date Adair Finn, ORDER FILLER-GANG SUPERVISOR [address] [place] [address] PCP - General Nurse Practitioner Adult Health 03/29/24 08/09/24 documented as of this encounter
--- OUTSIDE RECORDS SUMMARY | 2024-08-13 05:38 | XMS_ITS | Encounter Summary ---
Author Organization [facility] Address [address] [facility] [place] [address] Care Team Providers Care Tape Librarian Name Role Phone Adair Finn APRN-TRAILER STEERER Primary Care P rojadielder Encounter Details Date Type Department Care Team (Late st Contact Info) Description 06/14/2024 Orders Only [facility] [address] [place] [address] [phone] Daina Cook MD [address] [facility] [facility] [place] [place] [address] Social History Tobacco Use Types Packs/Day Years Used Date Smoking Tobacco: Unknown Sex and Gender Information Value Date Recorded Sex Assigned at Not on file Gender Identity Not on file Sexual Orientation Not on file documented as of this encounter Plan of Treatment Upcoming Encounters Date Type Department Care Team (Late Contact Info) Description 08/23/2024 10:15 AM SOFTWARE PRODUCT SPECIALIST Office Visit [facility] [address] [place] [address] [phone] Sandeep Hernandez MD [facility] [place] [phone] 09/27/2024 9:45 AM SOFTWARE PRODUCT SPECIALIST [facility] [address] [place] [phone] Buddy Fuller MD [address] [facility] [place]PT [place] [phone] 10/04/2024 1:00 PM SOFTWARE PRODUCT SPECIALIST Office Visit [facility] Endocrinology [address] [place] [address], [place] [phone] Rosalia Hair MD [address] [facility] [place] [phone] 02/07/2025 8:30 AM CDT Office Visit [facility] Rheumatology [address] [place] [phone] Roni Castañeda MD [address] [facility] [place] [phone] documented as of this encounter Visit Diagnoses Not on filedocumented in this encounter Care Teams Tape Librarian Relationship Specialty Start Date End Date Adair Finn, TRISHA-TRAILER STEERER [address] [place] [address] PCP - General Nurse Practitioner Adult Health 03/29/24 08/09/24 documented as of this encounter
--- OUTSIDE RECORDS SUMMARY | 2024-08-13 05:38 | XMS_ITS | Encounter Summary ---
Author Organization [facility] Address [address] [facility] [place] [address] Care Team Providers Care Manager Fire Name Role Phone Adair Finn APRN-BELLY DANCER Primary Care P rojadielder Reason for Visit * Reason Onset Date Comments Eye Problem 06/08/2024 Encounter Details Date Type Department Care Team (Late Contact Info) Description 06/08/2024 Telephone [facility] [address] [place] [phone] Daina Cook MD [address] [facility] [place] [place] [address] Eye Problem Social History Tobacco Use Types Packs/Day Years Used Date Smoking Tobacco: Never Assessed Sex and Gender Information Value Date Recorded Sex Assigned at Not on file Gender Identity Not on file Sexual Orientation Not on file documented as of this encounter Miscellaneous Notes * Telephone Encounter - Daina Cook MD - 06/08/2024 1:45 PM CST Called pt and left VM to schedule an appointment. E SETTING PAINTER APPRENTICE documented in this encounter Plan of Treatment Upcoming Encounters Date Type Department Care Team (Late Contact Info) Description 08/23/2024 10:15 AM STAGE SETTING PAINTER APPRENTICE Office Visit [facility] [address] [place] [phone] Sandeep Hernandez MD [address] [facility] [place] [phone] 09/27/2024 9:45 AM STAGE SETTING PAINTER APPRENTICE Office Visit [facility] [address] [place] [address] [place] [phone] Buddy Fuller MD [facility]5 [facility] [place] [phone] 10/04/2024 1:00 PM STAGE SETTING PAINTER APPRENTICE [facility] [address] [place] [phone] Rosalia Hair MD 1201 [facility] [place] [phone] 02/07/2025 8:30 AM CDT [facility] [address] [place] [phone] Roni Castañeda MD [facility]5 [facility] [place] [phone] documented as of this encounter Visit Diagnoses Not on filedocumented in this encounter Care Teams Manager Fire Relationship Specialty Start Date End Date Adair Finn, TOSSER-BELLY DANCER [address] [place] [address] PCP - General Nurse Practitioner Adult Health 03/29/24 08/09/24 documented as of this encounter
--- OUTSIDE RECORDS SUMMARY | 2024-08-13 05:38 | XMS_ITS | Encounter Summary ---
Author Organization [facility] Address [address] [facility] [place] [address] Care Team Providers Care Metal Flooring Installer Name Role Phone Adair Finn APRN-HOT TAR ROOFER HELPER Primary Care P aprilvaleri Encounter Details Date Type Department Care Team (Latest Contact Info) Description 06/09/2024 11:45 AM CERTIFIED PUBLIC ACCOUNTANT Clinical Support [facility] [address] [place] [phone] Sandeep Hernandez MD [address] [place] [address] [place] [phone] Optic disc edema (Primary Dx) Social History Tobacco Use Types Packs/Day Years Used Date Smoking Tobacco: Unknown Sex and Gender Information Value Date Recorded Sex Assigned at Not on file Gender Identity Not on file Sexual Orientation Not on file documented as of this encounter Plan of Treatment Upcoming Encounters Date Type Department Care Team (Late st Contact Info) Description 08/23/2024 10:15 AM CERTIFIED PUBLIC ACCOUNTANT Office Visit [facility] [address] [place] [phone] Sandeep Hernandez MD [address] [place] [address] [place] [phone] 09/27/2024 9:45 AM CERTIFIED PUBLIC ACCOUNTANT [facility] [address] [place] [phone] Buddy Fuller MD [facility] [place] [phone] 10/04/2024 1:00 PM CERTIFIED PUBLIC ACCOUNTANT Office Visit [facility] Endocrinology [address] [place] [address], [place] [phone] Rosalia Hair MD [address] [facility] [place] [phone] 02/07/2025 8:30 AM CDT Office Visit [facility] - Rheumatology [address] [place] [address], [place] [phone] Roni Castañeda MD [facility]5 [facility] [place] [phone] documented as of this encounter Procedures Procedure Name Priority Date/Time Associated Diagnosis Comments FUNDUS PHOTO BOTH EYES Routine 06/09/2024 11:41 AM CERTIFIED PUBLIC ACCOUNTANT Optic disc edema documented in this encounter Results * FUNDUS PHOTO BOTH EYES (06/09/2024 11:41 AM CERTIFIED PUBLIC ACCOUNTANT) Anatomical Region Laterality Modality Head External-Camera Photography Narrative 06/09/2024 4:44 PM CERTIFIED PUBLIC ACCOUNTANT Images from the original result were not included. Fundus photos OS with disc edema and yamini's lines Sandeep Hernandez MD OPHTHALMOLOGY SCHED ORD W PACS documented in this encounter Visit Diagnoses Diagnosis Optic disc edema- Primary Papilloedema, unspecified documented in this encounter Care Teams Metal Flooring Installer Relationship Specialty Start Date End Date Adair Finn, WAREHOUSE FORKLIFT OPERATOR-HOT TAR ROOFER HELPER [address] [place] [address] PCP - General Nurse Practitioner Adult Health 03/29/24 08/09/24 documented as of this encounter
--- OUTSIDE RECORDS SUMMARY | 2024-08-13 05:38 | XMS_ITS | Encounter Summary ---
Author Organization [facility] Address [address] [facility] [place] [address] Care Team Providers Care Cigar Head Holer Name Role Phone Adair Finn APRN-DATA WAREHOUSE SPECIALIST Primary Care P rovider Reason for Visit * Reason Onset Date Comments Eye Problem 06/09/2024 Encounter Details Date Type Department Care Team (Late st Contact Info) Description 06/09/2024 Telephone [facility] [address] [place] [phone] Faisal Cesar MD [address] [place] [phone] Eye Problem Social History Tobacco Use Types Packs/Day Years Used Date Smoking Tobacco: Unknown Sex and Gender Information Value Date Recorded Sex Assigned at Not on file Gender Identity Not on file Sexual Orientation Not on file documented as of this encounter Miscellaneous Notes * Telephone Encounter - Faisal Cesar MD - 06/09/2024 8:05 AM CST Telephone Encounter Note: 06/09/24 Returned Phone Call regarding Madeleine, no answer. Message left on voicemail asking patient to call the office back to discuss their symptoms or to schedule an appointment to be seen. Clinic ([phone]) and hospital ([phone]) numbers provided. Called Madeleine's mother, Kristie Watkins, no answer. Message left on voicemail asking her to call us back if she can help us get in contact with Madeleine. Clinic number provided. Faisal Cesar MD Ophthalmology Resident 06/09/2024 ASE CASE MANAGER documented in this encounter Plan of Treatment Upcoming Encounters Date Type Department Care Team (Late st Contact Info) Description 08/23/2024 10:15 AM DISEASE CASE MANAGER Office Visit [facility] [address] [place] [address] [phone] Sandeep Hernandez MD [address] [place] [address] [place] [phone] 09/27/2024 9:45 AM DISEASE CASE MANAGER Office Visit [facility] [address] [place] [phone] Buddy Fuller MD [address] [place] [address] [place] [phone] 10/04/2024 1:00 PM DISEASE CASE MANAGER [facility] [address] [place] [phone] Rosalia Hair MD [facility] [phone] 02/07/2025 8:30 AM CDT Office Visit [facility] - Rheumatology [address] [place] [phone] Roni Castañeda MD [address] [place] [address] [place] [phone] documented as of this encounter Visit Diagnoses Not on filedocumented in this encounter Care Teams Cigar Head Holer Relationship Specialty Start Date End Date Adair Finn, WILDLIFE VETERINARIAN-DATA WAREHOUSE SPECIALIST [address] [place] [address] PCP - General Nurse Practitioner Adult Health 03/29/24 08/09/24 documented as of this encounter
--- OUTSIDE RECORDS SUMMARY | 2024-08-13 05:38 | XMS_ITS | Referral Summary ---
Author Organization [facility] Address [address] [place] [address] Care Team Providers Care Supervisor Delivery Department Name Role Phone Joesph Jacobo MD Primary Care Provider [phone] Source Comments [facility],non-owned Affiliates and Associated Physician Practices is amultiple site organization consisting of ambulatory clinics and hospital sitesin [place], [place], [place] and [place]. This disclosure is being madepursuant to the Care Everywhere program and may not contain all information available regarding this patient. Last updated 18.[facility] Encounters Date Type Department Care Team Description 08/11/2024 Travel 08/10/2024 10:25 AM METAL FLOORING INSTALLER Clinical Support [facility] - Ophthalmology [address] [place] [phone] Sandeep Hernandez MD Optic disc edema (Primary Dx) 08/10/2024 10:20 AM METAL FLOORING INSTALLER Clinical Support [facility] Ophthalmology [address] [place] [phone] Sandeep Hernandez MD Optic disc edema (Primary Dx) 08/10/2024 10:10 AM METAL FLOORING INSTALLER Clinical Support [facility] Op[facility] [address] [place] [phone] Sandeep Hernandez MD Optic disc edema (Primary Dx) 08/10/2024 Travel 08/10/2024 10:15 AM METAL FLOORING INSTALLER Office Visit [facility] Ophthal[facility] [address] [place] [phone] Sandeep Hernandez MD Optic disc edema (Primary Dx); Combined forms of age-related cataract of right eye; Diabetes mellitus type 2 without retinopathy (HCC) 07/28/2024 Telephone [facility] - Endocrinology [address] [place] [phone] Rosalia Hair MD Pre Authorization (Dexcom G6 Transmitter) 07/28/2024 Telephone [facility] Endocrinology [address] [place] [phone] Elder Garza MD Pre Authorization (Dexcom G6 sensors) 07/[facility] [address] [place] [phone] Rosalia Hair MD Imaging Results 07/24/2024 Orders Only [facility] Endocr[facility]ology [address] [place] [phone] Annabelle Sandoval, RD/LD 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) 07/21/2024 Refill [facility] [address] [place] [phone] Rosalia Hair MD Refill Request 07/21/2024 [facility] [address] [place] [phone] Rosalia Hair MD Medication Issue 07/18/2024 Orders Only [facility] End[facility]ology [address] [place] [phone] Rosalia Hair MD 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 [address] [place] [phone] Rosalia Hair MD Encounter Opened In Error 06/14/2024 Orders Only [facility] - Ophthalmology [address] [place] [phone] Daina Cook MD 06/10/2024 Travel 06/10/2024 11:27 AM [facility] - 06/10/2024 11:47 AM [facility] Emergency [facility] EMERGENCY DEPARTMENT [address] [place] [phone] Tobias Flood MD Hyperglycemia (Primary Dx); Diabetes mellitus due to underlying condition without complication, without long-term current use of insulin ([facility]) Discharge Disposition: Home or Self Care 06/10/2024 3:36 AM METAL FLOORING INSTALLER - 06/10/2024 9:51 AM [facility] Emergency [facility] EMERGENCY DEPARTMENT [address] [place] [phone] Elke Mcneill MD Vision loss of left eye; Elevated random blood glucose level; Cerebrospinal fluid abnormality Discharge Disposition: Left Against Medical Advice/Discontinued Care 06/09/2024 11:50 AM [facility] Clinical Support [facility] - Ophthalmology [address] [place] [phone] Sandeep Hernandez MD Combined forms of age-related cataract of right eye (Primary Dx) 06/09/2024 11:45 AM [facility] Clinical Support [facility] - Ophthalmology [address] [place] [phone] Sandeep Hernandez MD Optic disc edema (Primary Dx) 06/09/2024 9:40 AM METAL FLOORING INSTALLER Clinical Support [facility] Op[facility] [address] [place] [phone] Sandeep Hernandez MD Optic disc edema (Primary Dx) 06/09/2024 9:35 AM METAL FLOORING INSTALLER Clinical Support [facility] Ophthalmology [address] [place] [phone] Sandeep Hernandez MD Optic disc edema (Primary Dx) 06/09/2024 8:30 AM METAL FLOORING INSTALLER Office Visit [facility] [address] [place] [phone] Optic disc edema (Primary Dx); Combined forms of age-related cataract of right eye 06/09/2024 Telephone [facility] - Ophthalmology [address] [place] [phone] Faisal Cesar MD Eye Problem 06/08/2024 Telephone [facility] Ophthalmology [address] [place] [phone] Daina Cook MD Eye Problem 06/07/2024 Telephone [facility] Ophthalmology [address] [place] [phone] Faisal Cesar MD Eye Problem 06/01/2024 Travel from Last 3 Months Allergies No known active allergies Medications * [...] 07/24/2024 Active Insulin Disposable Pump (Omnipod 5 [id number] Pods Gen 5) MISC USE AND CHANGE EVERY 48 HOURS 03/13/2024 Active amphetamine-dextr oamphetamine (Adderall) 20 MG tablet Take 1 (one) tablet by mouth 2 times daily 07/20/2023 08/10/2024 Discontinue d(List Clean-Up) Continuous Glucose Transmitter (Dexcom G6 Transmitter) MISC 03/14/2024 08/10/2024 Discont inue d(List Clean-Up) Active Problems Problem Noted Date Diagnosed Date 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 02/14/2024 Social History Tobacco Use Types Packs/Day Years Used Date Smoking Tobacco: Unknown Tobacco Cessation:Counseling Given: Not Answered Sex and Gender Information Value Date Recorded Sex Assigned at Not on file Gender Identity Not on file Sexual Orientation Not on file Last Filed Vital Signs Vital Sign Reading Time Taken Comments Blood Pressure 120/82 06/10/2024 10:51 AM METAL FLOORING INSTALLER Pulse 111 06/10/2024 10:51 AM METAL FLOORING INSTALLER Temperature 36.6 ??C (97.9 ??F) 06/10/2024 10:51 AM C Respiratory Rate 18 06/10/2024 10:51 AM METAL FLOORING INSTALLER Oxygen Saturation 100% 06/10/2024 10:51 AM METAL FLOORING INSTALLER Inhaled Oxygen Concentration - - Weight 54.4 kg (120 lb) 06/09/2024 5:29 PM METAL FLOORING INSTALLER Height 160 cm (5' 3 ) 06/09/2024 5:29 PM METAL FLOORING INSTALLER Body Mass Index 21.26 06/09/2024 5:29 PM METAL FLOORING INSTALLER Plan of Treatment Upcoming Encounters Date Type Department Care Team (Late st Contact Info) Description 08/23/2024 10:15 AM METAL FLOORING INSTALLER Office Visit [facility] - Ophthalmology [address] [place] [phone] Sandeep Hernandez MD [address] [place] [address] [place] [phone] 09/27/2024 9:45 AM METAL FLOORING INSTALLER Office Visit [facility] [address] [place] [address], [place] [phone] Buddy Fuller MD [address] [place] [address] [place] [phone] 10/04/2024 1:00 PM METAL FLOORING INSTALLER Office Visit [facility] - Endocrinology [address] [place] [phone] Rosalia Hair MD [address] [facility] [place] [phone] 02/07/2025 8:30 AM CDT Office Visit [facility] - Rheumatology [address] [place] [phone] Roni Castañeda MD [facility] [place] [phone] Procedures Procedure Name Priority Date/Time Associated Diagnosis Comments FUNDUS PHOTO BOTH EYES Routine 10:14 AM METAL FLOORING INSTALLER Optic disc edema OPTIC NERVE ANALYSIS OCT Routine 08/10/2024 10:05 AM METAL FLOORING INSTALLER Optic disc edema LUIS AUTO VISUAL FIELD EXTENDED Routine 08/10/2024 10:05 AM METAL FLOORING INSTALLER Optic disc edema GLUCOSE - POINT OF CARE Routine 06/10/20 24 11:24 AM METAL FLOORING INSTALLER BASIC METABOLIC PANEL (CALCIUM TOTAL) STAT 06/10/2024 8:24 AM METAL FLOORING INSTALLER ANGIOTENSIN CONVERTING ENZYME BLOOD STAT 06/10/2024 8:24 AM METAL FLOORING INSTALLER SUSHANT BLOOD SCREEN W/REFLEX TITER STAT 06/10/2024 8:24 AM METAL FLOORING INSTALLER SYPHILIS ANTIBODY CASCADING REFLEX STAT 06/10/2024 8:24 AM METAL FLOORING INSTALLER BARTONELLA MONTANO ANTIBODY IGM STAT 06/10/2024 8:24 AM METAL FLOORING INSTALLER MYELIN BASIC PROTEIN CSF STAT 06/10/2024 5:22 AM METAL FLOORING INSTALLER PROTEIN ELECTROPHORESIS CSF PANEL STAT 06/10/2024 5:22 AM METAL FLOORING INSTALLER ANGIOTENSIN CONVERTING ENZYME CSF STAT 06/10/2024 5:22 AM METAL FLOORING INSTALLER VDRL CSF W REFLEX TO TITER STAT 06/10/2024 5:22 AM METAL FLOORING INSTALLER CELL COUNT W DIFFERENTIAL CSF STAT 06/10/2024 5:22 AM METAL FLOORING INSTALLER PROTEIN CSF STAT 06/10/2024 5:22 AM METAL FLOORING INSTALLER GLUCOSE CSF STAT 06/10/2024 5:22 AM METAL FLOORING INSTALLER CULTURE CSF+GRAM STAIN STAT 5:22 AM METAL FLOORING INSTALLER ED LUMBAR PUNCTURE Routine 06/10/2024 4: 22 AM METAL FLOORING INSTALLER Vision loss of left eye MRI ANGIO BRAIN ARTERIAL WO CONT STAT 06/09/2024 11:16 PM METAL FLOORING INSTALLER Vision loss of left eye MRI ORBITS OR FACE WWO CONTRAST STAT 06/09/2024 11:16 PM METAL FLOORING INSTALLER Vision loss of left eye MRI ANGIO BRAIN VENOUS WWO CONT STAT 06/09/2024 11:16 PM METAL FLOORING INSTALLER Vision loss of left eye MRI BRAIN WWO CONTRAST STAT 11:15 PM METAL FLOORING INSTALLER Vision loss of left eye XR CHEST 2VW STAT 06/09/2024 7:34 PM METAL FLOORING INSTALLER Vision loss of left eye HCG BETA BLOOD QUANTITATIVE STAT 06/09/2024 7:13 PM METAL FLOORING INSTALLER LYME DISEASE TOTAL AB W RFLX IMMUNOASSAY STAT 06/09/2024 7:13 PM METAL FLOORING INSTALLER HIV-1 HIV-2 ANTIBODY + HIV P24 AG PANEL STAT 06/09/2024 7:13 PM METAL FLOORING INSTALLER QUANTIFERON-TB GOLD PLUS 4-TUBE STAT 06/09/2024 7:13 PM METAL FLOORING INSTALLER C-REACTIVE PROTEIN ZENY 06/09/2024 7: 13 PM METAL FLOORING INSTALLER ERYTHROCYTE SEDIMENTATION RATE STAT 06/09/2024 7:13 PM METAL FLOORING INSTALLER COMPREHENSIVE METABOLIC PANEL STAT 06/09/2024 7:13 PM METAL FLOORING INSTALLER CBC W AUTO DIFFERENTIAL STAT 06/09/20 24 7:13 PM METAL FLOORING INSTALLER ANTERIOR IMMERSION UNI/BI Routine 06/09/2024 11:41 AM METAL FLOORING INSTALLER Combined forms of age-related cataract of right eye FUNDUS PHOTO BOTH EYES Routine 11:41 AM METAL FLOORING INSTALLER Optic disc edema LUIS AUTO VISUAL FIELD EXTENDED Routine 06/09/2024 9:31 AM METAL FLOORING INSTALLER Optic disc edema RETINAL ANALYSIS OCT Routine 06/09/2024 9:31 AM METAL FLOORING INSTALLER Optic disc edema EYE EXAM 06/01/2024 HEMOGLOBIN A1C - POINT OF CARE (AMB) [facility] Routine 03/29/2024 2:44 PM CDT 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 Sandeep Hernandez MD OPHTHALMOLOGY SCHED ORD W PACS * OPTIC NERVE ANALYSIS OCT (08/10/2024 10:05 AM METAL FLOORING INSTALLER) Anatomical Region Laterality Modality Head External-Camera Photography Narrative 08/10/2024 2:52 PM METAL FLOORING INSTALLER Images from the original result were not included. Sandeep Hernandez MD OPHTHALMOLOGY SCHED ORD W PACS * LUIS AUTO VISUAL FIELD EXTENDED (08/10/2024 10:05 AM METAL FLOORING INSTALLER) Anatomical Region Laterality Modality Head External-Camera Photography Narrative 08/10/2024 2:52 PM METAL FLOORING INSTALLER Images from the original result were not included. Sandeep Hernandez MD OPHTHALMOLOGY SCHED ORD W PACS * (ABNORMAL) GLUCOSE - POINT OF CARE (06/10/2024 11:24 AM METAL FLOORING INSTALLER) Glucose WB/POC >500(HH) 70 - 99 mg/dL 06/12/2024 10:59 AM METAL FLOORING INSTALLER [facility] Specimen Type Cap Fingerstick 2023 10:59 [address]ORING INSTALLER [facility] Blood BLOOD SPECIMEN / Unknown 06/10/2024 11:24 AM METAL FLOORING INSTALLER 06/12/2024 10:59 AM METAL FLOORING INSTALLER Provider Unknown LAB - POINT OF CARE ORDERABLES Performing Organization Address City/State/[facility] Co de Phone Number [facility] [address] [place] [phone], [facility] [phone] * BARTONELLA MONTANO ANTIBODY IGM (06/10/2024 8:24 AM METAL FLOORING INSTALLER) Bartonella montano Antibody IgM < 1:16 06/16/2024 9:49 AM METAL FLOORING INSTALLER [employer] [employer] ([facility]) Comment: INTERPRETIVE INFORMATION: Bartonella montano Ab, IgM [...] developed and its performance characteristics determined by [facility]. It has not been cleared or approved by the US Food and Drug Administration. This test was performed in a CLIA certified laboratory and is intended for clinical purposes. Performed By: [facility] [address] [place] [address] Communications Department Chairperson: Yusuf Castro MD, PhD CLIA Number: [id number] Blood BLOOD SPECIMEN / Unknown Venipuncture / Unknown 06/10/2024 8:24 AM METAL FLOORING INSTALLER 06/10/2024 8:29 AM METAL FLOORING INSTALLER Maliha Tilley MD LAB - SEROLOGY ORDER NAUN [facility] ([facility]) [address] [place] [address] * SYPHILIS ANTIBODY CASCADING REFLEX (06/10/2024 8:24 AM METAL FLOORING INSTALLER) Treponema pallidum Antibody Non-react stephanie Non-react stephanie 06/10/2024 9:25 AM METAL FLOORING INSTALLER [facility] Comment: No Laboratory evidence of syphilis infection. ?? Note: ??Circulating antibodies may be low or undetectable in early infection. ??If recent exposure is suspected, re-draw sample in 2-4 weeks and repeat testing. Blood BLOOD SPECIMEN / Unknown Venipuncture / Unknown 06/10/2024 8:24 AM METAL FLOORING INSTALLER 06/10/2024 8:29 AM METAL FLOORING INSTALLER Maliha Tilley MD LAB - SEROLOGY ORDER NAUN [facility] [address] [address], [facility] [phone] * SUSHANT BLOOD SCREEN W/REFLEX TITER (06/10/2024 8:24 AM METAL FLOORING INSTALLER) SUSHANT IgG None Detected None Detected 06/13/2024 8:57 PM METAL FLOORING INSTALLER [facility] ([facility]) Comment: If suspicion of connective tissue disease is strong and SUSHANT EIA is negative, consider testing for SUSHANT by IFA ([id number]). INTERPRETIVE INFORMATION: Anti-Nuclear Antibodies (SUSHANT), IgG by [employer] Antinuclear Antibodies (SUSHANT), IgG by CHIN[employer]: SUSHANT specimens are screened using enzyme-linked immunosorbent assay (CHINMAY) methodology. All CHIN[employer]Y results reported as Detected are further tested by indirect fluorescent assay (IFA) using HEp-2 substrate with an IgG-specific conjugate. The SUSHANT CHINMAY screen is designed to detect antibodies against dsDNA, histones, SS-A (Ro), SS-B (La), Francois, Francois/SILK WORKER, Scl-70, Марина-1, centromeric proteins, other antigens extracted from the HEp-2 cell nucleus. SUSHANT CHINMAY assays have been reported to have lower sensitivities than SUSHANT IFA for systemic autoimmune rheumatic diseases (SARD). Negative results do not necessarily rule out SARD. Performed By: [facility] [address] [place] [address] Communications Department Chairperson: Yusuf Castro MD, PhD CLIA Number: [id number] Blood BLOOD SPECIMEN / Unknown Venipuncture / Unknown 06/10/2024 8:24 AM METAL FLOORING INSTALLER 06/10/2024 8:29 AM METAL FLOORING INSTALLER Elke Mcneill MD LAB - CHEMISTRY VANESSA TOMLIN Performing Organization Address City/[facility]/ZIP Co de Phone Number [facility]) [address] [place] [address] * (ABNORMAL) ANGIOTENSIN CONVERTING ENZYME BLOOD (06/10/2024 8:24 AM METAL FLOORING INSTALLER) Angiotensin-Conve rting Enzyme 90(H) 16 - 85 U/L 06/13/2024 7:12 PM [facility] ([facility]) Comment: Performed By: [facility] [address] [place] [address] Communications Department Chairperson: Yusuf Castro MD, PhD CLIA Number: [id number] Blood BLOOD SPECIMEN / Unknown Venipuncture / Unknown 06/10/2024 8:24 AM METAL FLOORING INSTALLER 06/10/2024 8:29 AM METAL FLOORING INSTALLER Elke Mcneill MD LAB - CHEMISTRY VANESSA TOMLIN [facility]) [address] [place] [id number], [facility] * (ABNORMAL) BASIC METABOLIC PANEL (CALCIUM TOTAL) (06/10/2024 8:24 AM METAL FLOORING INSTALLER) BUN 11 7 - 26 mg/dL 06/10/2024 9:20 AM [facility] Creatinine 0.47(L) 0.56 - 0.96 mg/dL 06/10/2024 9:20 AM [facility] Sodium 131(L) 136 - 145 mmol/L 06/10/2024 9:20 AM [facility] Potassium 4.4 3.5 - 4.5 mmol/L 06/10/2024 9:20 AM [facility] Chloride 92(L) 98 - 107 mmol/L 06/10/2024 9:20 AM [facility] CO2 22 22 - 29 mmol/L 06/10/2024 9:20 AM [facility] Glucose 782(HH) 70 - 99 mg/dL 06/10/2024 9:20 AM [facility] Calcium 8.9 8.4 - 10.2 mg/dL 06/10/2024 9:20 AM [facility] Anion Gap 17(H) 6 - 16 06/10/2024 9:20 AM [facility] BUN/Creatinine Ratio 23 7 - 23 06/10/2024 9:20 AM [facility] Osmolality Calculated 309(H) 275 - 295 mOsm/kg 06/10/2024 9:20 AM METAL FLOORING INSTALLER [facility] eGFR by CKD-EPI >90 >=90 mL/min/1.7 3 m2 06/10/2024 9:20 AM METAL FLOORING INSTALLER [facility] Blood BLOOD SPECIMEN / Unknown Venipuncture / Unknown 06/10/2024 8:24 AM METAL FLOORING INSTALLER 06/10/2024 8:35 AM METAL FLOORING INSTALLER Tobias Schafer MD LAB - CHEMISTRY ORDCharmaine TOMLIN Performing Organization Address City/[facility]/ZIP Co de Phone Number [facility] [address] [id number] [phone] * VDRL CSF W REFLEX TO TITER (06/10/2024 5:22 AM METAL FLOORING INSTALLER) VDRL CSF Non Reactive Non Reactive 06/12/2024 3:54 PM METAL FLOORING INSTALLER [facility] ([facility]) Comment: Because the VDRL was Non Reactive, the VDRL titer was not performed. Performed By: [facility] [address] [place] [address] Communications Department Chairperson: Yusuf Castro MD, PhD CLIA Number: [id number] Cerebral spinal fluid CEREBROSPINAL FLUID SPECIMEN / Unknown Collection / Unknown 06/10/2024 5:22 AM METAL FLOORING INSTALLER 06/10/2024 5:39 AM METAL FLOORING INSTALLER Elke Mcneill MD LAB - BODY FLUID ORD ERABLES Performing Organization Address [facility] Co de Phone Number [facility]) [address] [place] [address] * CULTURE CSF+GRAM STAIN (06/10/2024 5:22 AM METAL FLOORING INSTALLER) Culture No growth REYNA 06/17/2024 5:20 AM METAL FLOORING INSTALLER [facility] Gram Stain No organisms seen 024 5:20 AM METAL FLOORING INSTALLER [facility] Gram Stain No polymorphonuclear cells 06/17/2024 5:20 AM METAL FLOORING INSTALLER [facility] Cerebral spinal fluid CEREBROSPINAL FLUID SPECIMEN / Unknown Collection / Unknown 06/10/2024 5:22 AM METAL FLOORING INSTALLER 06/10/2024 5:39 AM METAL FLOORING INSTALLER Elke Mcneill MD LAB - MICROBIOLOGY O RDERABLES [facility] [address] [place] [address], [facility] [phone] * ANGIOTENSIN CONVERTING ENZYME CSF (06/10/2024 5:22 AM METAL FLOORING INSTALLER) Angiotensin-Convert ing Enzyme CSF 2.5 0.0 - 2.5 U/L 06/15/2024 12:12 AM METAL FLOORING INSTALLER [facility] ([facility]) Comment: This test was developed and its performance characteristics determined by [facility]. It has not been cleared or approved by the [place] Food and Drug Administration. This test was performed in a CLIA certified laboratory and is intended for clinical purposes. Performed By: [facility] [address] [place] [address] Communications Department Chairperson: Yusuf Castro MD, PhD CLIA Number: [id number] Cerebral spinal fluid CEREBROSPINAL FLUID SPECIMEN / Unknown Collection / Unknown 06/10/2024 5:22 AM METAL FLOORING INSTALLER 06/10/2024 5:39 AM METAL FLOORING INSTALLER Elke Mcneill MD LAB - BODY FLUID ORD ERABLES Performing Organization Address [facility] Co de Phone Number [facility] ([facility]) [address] * MYELIN BASIC PROTEIN CSF (06/10/2024 5:22 AM METAL FLOORING INSTALLER) Myelin Basic Protein 2.15 0.00 - 5.50 ng/mL 06/14/2024 9:42 AM METAL FLOORING INSTALLER [facility] ([facility]) Comment: INTERPRETIVE INFORMATION: ??Myelin Basic Protein This test was developed and its performance characteristics determined by [facility]. It has not been cleared or approved by the US Food and Drug Administration. This test was performed in a CLIA certified laboratory and is intended for clinical purposes. Performed By: [facility] [address] [place] [address] Communications Department Chairperson: Yusuf Castro MD, PhD CLIA Number: [id number] Cerebral spinal fluid CEREBROSPINAL FLUID SPECIMEN / Unknown Collection / Unknown 06/10/2024 5:22 AM METAL FLOORING INSTALLER 06/10/2024 5:39 AM METAL FLOORING INSTALLER Elke Mcneill MD LAB - BODY FLUID ORD ERABLES [facility]) [address] [place], [place] [address] * (ABNORMAL) CELL COUNT W DIFFERENTIAL CSF (06/10/2024 5:22 AM METAL FLOORING INSTALLER) Tube Number TUBE 2 06/10/2024 5:51 AM METAL FLOORING INSTALLER [facility] Xanthochromia ABSENT ABSENT 06/10/2024 5:51 AM METAL FLOORING INSTALLER [facility] CSF Appearance CLEAR 06/10/2024 5:51 AM [facility] CSF Color COLORLESS 06/10/2024 5:51 AM [facility] Total Nucleated Cells CSF 2 <=5 x10E6/L 06/10/2024 5:51 AM [facility] RBC Count CSF 18(H) <1 x10E6/L 06/10/2024 5:51 AM [facility] Cerebral spinal fluid CEREBROSPINAL FLUID SPECIMEN / Unknown Collection / Unknown 06/10/2024 5:22 AM METAL FLOORING INSTALLER 06/10/2024 5:39 AM METAL FLOORING INSTALLER Narrative [facility] - 06/10/2024 5:51 AM METAL FLOORING INSTALLER No differential performed per procedure Elke Mcneill MD LAB - BODY FLUID ORD ERABLES Performing Organization Address City/[facility]/ZIP Co de Phone Number [id number] [place] [address], [facility] [phone] * (ABNORMAL) PROTEIN CSF (06/10/2024 5:22 AM METAL FLOORING INSTALLER) Protein CSF 54(H) 15 - 45 mg/dL 06/10/2024 6:15 AM [facility] Cerebral spinal fluid CEREBROSPINAL FLUID SPECIMEN / Unknown Collection / Unknown 06/10/2024 5:22 AM METAL FLOORING INSTALLER 06/10/2024 5:39 AM METAL FLOORING INSTALLER Elke Mcneill MD LAB - BODY FLUID ORD ERABLES [facility] [address] [place] [address], [facility] [phone] * (ABNORMAL) GLUCOSE CSF (06/10/2024 5:22 AM METAL FLOORING INSTALLER) Glucose CSF 294(H) 40 - 70 mg/dL 06/10/2024 6:15 [address] [facility] [facility]ST[facility] Cerebral spinal fluid CEREBROSPINAL FLUID SPECIMEN / Unknown Collection / Unknown 06/10/2024 5:22 AM METAL FLOORING INSTALLER 06/10/2024 5:39 AM METAL FLOORING INSTALLER Elke Mcneill MD LAB - BODY FLUID ORD ERABLES [facility] [address] [place] [address], [facility] [phone] * (ABNORMAL) PROTEIN ELECTROPHORESIS CSF PANEL (06/10/2024 5:22 AM METAL FLOORING INSTALLER) Protein CSF 48.6(H) 15.0 - 45.0 mg/dL 06/12/2024 5:17 PM METAL FLOORING INSTALLER [facility]) Prealbumin CSF 1.9 0.0 - 3.1 mg/dL 06/12/2024 5:17 PM METAL FLOORING INSTALLER [facility]) Albumin CSF 25.8 8.4 - 34.2 mg/dL 06/12/2024 5:17 PM METAL FLOORING INSTALLER [facility]) Alpha-1 Globulin CSF 1.7 0.0 - 3.1 mg/dL 06/12/2024 5:17 PM METAL FLOORING INSTALLER [facility]) Ausad-6-Opdmzsxh CSF 5.8(H) 0.0 - 5.4 mg/dL 06/12/2024 5:17 PM METAL FLOORING INSTALLER [facility]) Beta-Globulin CSF 9.2(H) 0.0 - 8.1 mg/dL 06/12/2024 5:17 PM METAL FLOORING INSTALLER [facility]) Gamma Globulin CSF 4.2 0.0 - 5.4 mg/dL 06/12/2024 5:17 PM METAL FLOORING INSTALLER [facility]) Comment: Performed By: [facility] [address] [place] [id number] Communications Department Chairperson: Yusuf Castro MD, PhD [facility] Number: [id number] Cerebral spinal fluid CEREBROSPINAL FLUID SPECIMEN / Unknown Collection / Unknown 06/10/2024 5:22 AM METAL FLOORING INSTALLER 06/10/2024 5:39 AM METAL FLOORING INSTALLER Elke Mcneill MD LAB - BODY FLUID ORD ERABLES Performing Organization Address City/State/[facility] Co de Phone Number [facility]) [address] [place] [id number] * Lumbar Puncture (06/10/2024 4:22 AM METAL FLOORING INSTALLER) Narrative Elke Mcneill MD - 06/10/2024 4:22 AM METAL FLOORING INSTALLER Mann Saez, DO ? 06/15/2024 12:03 PM Lumbar Puncture Date/Time: 06/10/2024 4:22 AM Performed by: Mann Saez DO Authorized by: Elke Mcneill MD ?? Consent: ??Consent obtained: ??Written and verbal ??Consent given by: ??Patient ??Risks, benefits, and alternatives were discussed: yes ?Risks discussed: ??Headache, bleeding, infection, nerve damage, repeat procedure and pain ??Alternatives discussed: ??Alternative treatment, no treatment, delayed treatment and observation [place] protocol: ??Procedure explained and questions answered to [...] Brain Arterial Wo Cont (06/09/2024 11:16 PM METAL FLOORING INSTALLER) Anatomical Region Laterality Modality Head Magnetic Resonan ce 06/10/2024 1:00 AM METAL FLOORING INSTALLER Impressions 06/10/2024 10:52 AM METAL FLOORING INSTALLER IMPRESSION: 1.No evidence of acute intracranial findings [...] 06/10/2024 10:52 AM Narrative 06/10/2024 10:52 AM METAL FLOORING INSTALLER PROCEDURE: ??MRI BRAIN WWO CONTRAST, MRI ANGIO BRAIN ARTERIAL WO CONT, MRI ORBITS OR FACE WWO CONTRAST, MRI ANGIO BRAIN VENOUS WWO CONT, DATE/TIME OF EXAM: ??06/09/2024 11:15 PM, LOCATION ??[facility] INDICATION: H54.62: Vision loss of left eye ADDITIONAL CLINICAL INFORMATION: Ordering Provider Reason For Exam: ??r/o mass/IIH (accession [id number]), vision loss (accession [id number]), vision loss (accession [id number]), vision loss (accession [id number]) Technologist Note: ??Does the patient have a [...] week. Was sent to retinal specialist by wastewater operator for preoperative ophthalmic evaluation prior to left [...] CONT, DATE/TIMEOF EXAM: 06/09/2024 11:15 PM, LOCATION [facility] INDICATION: H54.62: Vision loss of left eye ADDITIONAL CLINICAL INFORMATION: Ordering Provider Reason For Exam: r/o mass/IIH (accession [id number]), vision loss (accession [id number]), vision loss (accession [id number]), vision loss (accession [id number]) Technologist Note: Does the patient have a [...] week. Was sent to retinal specialist by wastewater operator for preoperative ophthalmic evaluation prior to left [...] or Face Wwo Contrast (06/09/2024 11:16 PM METAL FLOORING INSTALLER) Anatomical Region Laterality Modality Head Magnetic Resonan ce 06/10/2024 1:00 AM METAL FLOORING INSTALLER Impressions 06/10/2024 10:52 AM METAL FLOORING INSTALLER IMPRESSION: 1.No evidence of acute intracranial findings [...] 06/10/2024 10:52 AM Narrative 06/10/2024 10:52 AM METAL FLOORING INSTALLER PROCEDURE: ??MRI BRAIN WWO CONTRAST, MRI ANGIO BRAIN ARTERIAL WO CONT, MRI ORBITS OR FACE WWO CONTRAST, MRI ANGIO BRAIN VENOUS WWO CONT, DATE/TIME OF EXAM: ??06/09/2024 11:15 PM, LOCATION ??[facility] INDICATION: H54.62: Vision loss of left eye ADDITIONAL CLINICAL INFORMATION: Ordering Provider Reason For Exam: ??r/o mass/IIH (accession [id number]), vision loss (accession [id number]), vision loss (accession [id number]), vision loss (accession [id number]) Technologist Note: ??Does the patient have a [...] week. Was sent to retinal specialist by wastewater operator for preoperative ophthalmic evaluation prior to left [...] CONT, DATE/TIMEOF EXAM: 06/09/2024 11:15 PM, LOCATION [facility] INDICATION: H54.62: Vision loss of left eye ADDITIONAL CLINICAL INFORMATION: Ordering Provider Reason For Exam: r/o mass/IIH (accession [id number]), vision loss (accession [id number]), vision loss (accession [id number]), vision loss (accession [id number]) Technologist Note: Does the patient have a [...] week. Was sent to retinal specialist by wastewater operator for preoperative ophthalmic evaluation prior to left [...] Brain Venous Wwo Cont (06/09/2024 11:16 PM METAL FLOORING INSTALLER) Anatomical Region Laterality Modality Head Magnetic Resonan ce 06/10/2024 1:00 AM METAL FLOORING INSTALLER Impressions 06/10/2024 10:52 AM METAL FLOORING INSTALLER IMPRESSION: 1.No evidence of acute intracranial findings [...] 06/10/2024 10:52 AM Narrative 06/10/2024 10:52 AM METAL FLOORING INSTALLER PROCEDURE: ??MRI BRAIN WWO CONTRAST, MRI ANGIO BRAIN ARTERIAL WO CONT, MRI ORBITS OR FACE WWO CONTRAST, MRI ANGIO BRAIN VENOUS WWO CONT, DATE/TIME OF EXAM: ??06/09/2024 11:15 PM, LOCATION ??[facility] INDICATION: H54.62: Vision loss of left eye ADDITIONAL CLINICAL INFORMATION: Ordering Provider Reason For Exam: ??r/o mass/IIH (accession [id number]), vision loss (accession [id number]), vision loss (accession [id number]), vision loss (accession [id number]) Technologist Note: ??Does the patient have a [...] week. Was sent to retinal specialist by wastewater operator for preoperative ophthalmic evaluation prior to left [...] CONT, DATE/TIMEOF EXAM: 06/09/2024 11:15 PM, LOCATION [facility] INDICATION: H54.62: Vision loss of left eye ADDITIONAL CLINICAL INFORMATION: Ordering Provider Reason For Exam: r/o mass/IIH (accession [id number]), vision loss (accession [id number]), vision loss (accession [id number]), vision loss (accession [id number]) Technologist Note: Does the patient have a [...] week. Was sent to retinal specialist by wastewater operator for preoperative ophthalmic evaluation prior to left [...] MRI Brain Wwo Contrast (06/09/2024 11:15 PM METAL FLOORING INSTALLER) Anatomical Region Laterality Modality Head Magnetic Resonan ce 06/10/2024 1:00 AM METAL FLOORING INSTALLER Impressions 06/10/2024 10:52 AM METAL FLOORING INSTALLER IMPRESSION: 1.No evidence of acute intracranial findings [...] 06/10/2024 10:52 AM Narrative 06/10/2024 10:52 AM METAL FLOORING INSTALLER PROCEDURE: ??MRI BRAIN WWO CONTRAST, MRI ANGIO BRAIN ARTERIAL WO CONT, MRI ORBITS OR FACE WWO CONTRAST, MRI ANGIO BRAIN VENOUS WWO CONT, DATE/TIME OF EXAM: ??06/09/2024 11:15 PM, LOCATION ??[facility] INDICATION: H54.62: Vision loss of left eye ADDITIONAL CLINICAL INFORMATION: Ordering Provider Reason For Exam: ??r/o mass/IIH (accession [id number]), vision loss (accession [id number]), vision loss (accession [id number]), vision loss (accession [id number]) Technologist Note: ??Does the patient have a [...] week. Was sent to retinal specialist by wastewater operator for preoperative ophthalmic evaluation prior to left [...] CONT, DATE/TIMEOF EXAM: 06/09/2024 11:15 PM, LOCATION [facility] INDICATION: H54.62: Vision loss of left eye ADDITIONAL CLINICAL INFORMATION: Ordering Provider Reason For Exam: r/o mass/IIH (accession [id number]), vision loss (accession [id number]), vision loss (accession [id number]), vision loss (accession [id number]) Technologist Note: Does the patient have a [...] week. Was sent to retinal specialist by wastewater operator for preoperative ophthalmic evaluation prior to left [...] * XR Chest 2Vw (06/09/2024 7:34 PM METAL FLOORING INSTALLER) Anatomical Region Laterality Modality Chest Digital Radiogra phy 06/09/2024 7:46 PM METAL FLOORING INSTALLER Narrative 06/10/2024 8:29 AM METAL FLOORING INSTALLER PROCEDURE: ??XR CHEST 2VW, DATE/TIME OF EXAM: ??06/09/2024 7:34 PM, LOCATION [facility] INDICATION: H54.62: Vision loss of left eye [...] intact. Report dictated by Moon Reid MD (president + publisher). Randy Freeman MD have personally reviewed and interpreted this examination/study. > Interpreting Provider: Randy Pagan MD on 06/10/2024 8:29 AM Procedure Note Randy Pagan MD - 06/10/2024 PROCEDURE: XR CHEST 2VW, DATE/TIME OF EXAM: 06/09/2024 7:34 PM, LOCATION [facility] INDICATION: H54.62: Vision loss of left eye [...] isintact. Report dictated by Moon Reid MD (president + publisher). Randy Freeman MD have personally reviewed and interpreted this examination/study. > Interpreting Provider: Randy Pagan MD on 06/10/2024 8:29 AM Maliha Tilley MD DIAGNOSTIC IMAGING O RDERABLES * LYME DISEASE TOTAL AB W RFLX IMMUNOASSAY (06/09/2024 7:13 PM METAL FLOORING INSTALLER) [facility] Lyme Antibody Total Negative Negative 06/11/2024 10:07 AM METAL FLOORING INSTALLER [facility] ([facility]) Comment: Lyme antibodies not detected. Reflex testing [...] Unknown Venipuncture / Unknown 06/09/2024 7:13 PM METAL FLOORING INSTALLER 06/09/2024 7:20 PM METAL FLOORING INSTALLER Narrative [facility] ([facility]) - 06/11/2024 10:07 AM METAL FLOORING INSTALLER Performed at: ??01 - [facility] [address] [place], [place] ??[id number] [employer] Specialist: Toni Johnston PhD, Phone: ??[phone] Maliha Tilley MD LAB - CHEMISTRY [place]ANESSA [place] [facility] ([facility]) [address] [place] [address], [facility] * QUANTIFERON-TB GOLD PLUS 4-TUBE (06/09/2024 7:13 PM METAL FLOORING INSTALLER) [facility] QuantiFERON Mitogen Minus NIL 9.95 IU/mL 06/12/2024 6:18 AM METAL FLOORING INSTALLER [facility]) QuantiFERON Nil Value 0.05 IU/mL 06/12/2024 6:18 AM METAL FLOORING INSTALLER [facility]) QuantiFERON Plus TB1 Minus NIL 0.00 <=0.34 IU/mL 06/12/2024 6:18 AM METAL FLOORING INSTALLER [facility]) QuantiFERON Plus TB2 Minus NIL 0.00 <=0.34 IU/mL 06/12/2024 6:18 AM METAL FLOORING INSTALLER [facility]) QuantiFERON-TB Gold Plus Negative Negative 06/12/2024 6:18 AM METAL FLOORING INSTALLER [facility] ([facility]) Comment: INTERPRETIVE INFORMATION:Quantiferon TB Gold Plus Interferon [...] Mycobacterium tuberculosis Infection -- [place], 2010 (http://www.cdc.gov/mmwr/preview/mmwrhtml/rj6388v2.htm), for more information concerning test performance in low-prevalence populations and use in occupational screening. Performed By: [facility] [address] [place] [address] Communications Department Chairperson: Yusuf Castro MD, PhD CLIA Number: [id number] Blood BLOOD SPECIMEN / Unknown Venipuncture / Unknown 06/09/2024 7:13 PM METAL FLOORING INSTALLER 06/09/2024 7:24 PM METAL FLOORING INSTALLER Maliha Tilley MD LAB - CHEMISTRY VANESSA TOM[place] [facility] ([facility]) [address] [place] [address] * HIV-1 HIV-2 ANTIBODY + HIV P24 AG PANEL (06/09/2024 7:13 PM METAL FLOORING INSTALLER) HIV Antigen/Antibod y 1 & 2 Non-reacti ve Non-react stephanie 06/09/2024 8:03 PM METAL FLOORING INSTALLER [facility] Comment:No Laboratory eviden ce of HIV infection. Blood BLOOD SPECIMEN / Unknown Venipuncture / Unknown 06/09/2024 7:13 PM METAL FLOORING INSTALLER 06/09/2024 7:20 PM METAL FLOORING INSTALLER Maliha Tilley MD LAB - CHEMISTRY VANESSA [place] [address] [address], [facility] [phone] * C-REACTIVE PROTEIN (06/09/2024 7:13 PM METAL FLOORING INSTALLER) Pathologist [facility] C-Reactive Protein <0.5 <=0.5 mg/dL 06/09/2024 7:57 [address] METAL FLOORING INSTALLER [facility] Blood BLOOD SPECIMEN / Unknown Venipuncture / Unknown 06/09/2024 7:13 PM METAL FLOORING INSTALLER 06/09/2024 7:24 PM METAL FLOORING INSTALLER Maliha Tilley MD LAB - CHEMISTRY VANESSA [place]OM[place] Performing Organization Address City/[facility]/ZIP Co de Phone Number [address] [address], [facility] [phone] * (ABNORMAL) ERYTHROCYTE SEDIMENTATION RATE (06/09/2024 7:13 PM METAL FLOORING INSTALLER) Pathologist [facility] Erythrocyte Sedimentation Rate Westergren 32(H) 0 - 20 MM/HR 06/09/2024 8:25 PM METAL FLOORING INSTALLER [facility] Blood BLOOD SPECIMEN / Unknown Venipuncture / Unknown 06/09/2024 7:13 PM METAL FLOORING INSTALLER 06/09/2024 7:24 PM METAL FLOORING INSTALLER Maliha Tilley MD LAB - HEMATOLOGY TASHA MOTTA [address] [address], [facility] [phone] * CBC W AUTO DIFFERENTIAL (06/09/2024 7:13 PM METAL FLOORING INSTALLER) Pathologist [facility] WBC 6.6 4.0 - 10.7 x10E9/L 06/09/2024 7:29 PM [facility] RBC Count 4.91 3.90 - 5.20 x10E12/L 06/09/2024 7:29 PM [facility] Hemoglobin 13.7 11.9 - 15.8 g/dL 06/09/2024 7:29 PM [facility] Hematocrit 39.6 34.8 - 46.1 % 06/09/2024 7:29 PM [facility] MCV 80.7 80.0 - 98.0 fL 06/09/2024 7:29 PM [facility] MCH 27.9 26.7 - 33.6 pg 06/09/2024 7:29 PM [facility] MCHC 34.6 31.7 - 36.3 g/dL 06/09/2024 7:29 PM [facility] RDW-CV 14.3 11.3 - 14.8 % 06/09/2024 7:29 PM [facility] Platelet Count 385 150 - 420 x10E9/L 06/09/2024 7:29 PM [facility] MPV 9.8 7.8 - 11.4 fL 06/09/2024 7:29 PM [facility] Neutrophil % 61.7 41.0 - 74.0 % 06/09/2024 7:29 PM [facility] Lymphocyte % 27.1 17.0 - 47.0 % 06/09/2024 7:29 PM [facility] Monocyte % 6.2 3.0 - 11.0 % 06/09/2024 7:29 PM [facility] Eosinophil % 3.7 0.0 - 7.0 % 06/09/2024 7:29 PM [facility] Basophil % 0.8 0.0 - 1.6 % 06/09/2024 7:29 PM [facility] Immature Granulocytes % 0.5 0.0 - 1.0 % 06/09/2024 7:29 PM [facility] Neutrophil Absolute 4.06 1.60 - 7.50 x10E9/L 06/09/2024 7:29 PM [facility] Lymphocyte Absolute 1.78 1.00 - 4.40 x10E9/L 06/09/2024 7:29 PM [facility] Monocyte Absolute 0.41 0.15 - 1.00 x10E9/L 06/09/2024 7:29 PM [facility] Eosinophil Absolute 0.24 0.00 - 0.60 x10E9/L 06/09/2024 7:29 PM [facility] Basophil Absolute 0.05 0.00 - 0.13 x10E9/L 06/09/2024 7:29 PM [facility] Blood BLOOD SPECIMEN / Unknown Venipuncture / Unknown 06/09/2024 7:13 PM METAL FLOORING INSTALLER 06/09/2024 7:24 PM METAL FLOORING INSTALLER Maliha Tilley MD LAB - HEMATOLOGY ORD ERABLES [facility] [address] [place] [address], [facility] [phone] * (ABNORMAL) COMPREHENSIVE METABOLIC PANEL (06/09/2024 7:13 PM METAL FLOORING INSTALLER) BUN 13 7 - 26 mg/dL 06/09/2024 7:58 PM [facility] Creatinine 0.49(L) 0.56 - 0.96 mg/dL 06/09/2024 7:58 PM [facility] Sodium 137 136 - 145 mmol/L 06/09/2024 7:58 PM [facility] Potassium 3.7 3.5 - 4.5 mmol/L 06/09/2024 7:58 PM [facility] Chloride 102 98 - 107 mmol/L 06/09/2024 7:58 PM [facility] CO2 20(L) 22 - 29 mmol/L 06/09/2024 7:58 PM [facility] Glucose 504(H) 70 - 99 mg/dL 06/09/2024 7:58 PM [facility] Calcium 8.2(L) 8.4 - 10.2 mg/dL 06/09/2024 7:58 PM [facility] Protein Total 7.0 6.0 - 8.3 g/dL 06/09/2024 7:58 PM [facility] Albumin 3.3(L) 3.4 - 5.0 g/dL 06/09/2024 7:58 PM [facility] Bilirubin Total 0.2 0.2 - 1.2 mg/dL 06/09/2024 7:58 PM [facility] Alkaline Phosphatase 131 40 - 150 U/L 06/09/2024 7:58 PM [facility] ALT 9 5 - 55 U/L 06/09/2024 7:58 PM [facility] AST 18 5 - 34 U/L 06/09/2024 7:58 PM [facility] Anion Gap 15 6 - 16 06/09/2024 7:58 PM [facility] BUN/Creatinine Ratio 27(H) 7 - 23 06/09/2024 7:58 PM [facility] Osmolality Calculated 307(H) 275 - 295 mOsm/kg 06/09/2024 7:58 PM [facility] Albumin/Globulin Ratio 0.9(L) 1.1 - 2.3 06/09/2024 7:58 PM [facility] eGFR by CKD-EPI >90 >=90 mL/min/1.7 3 m2 06/09/2024 7:58 PM [facility] Blood BLOOD SPECIMEN / Unknown Venipuncture / Unknown 06/09/2024 7:13 PM METAL FLOORING INSTALLER 06/09/2024 7:24 PM METAL FLOORING INSTALLER Maliha Tilley MD LAB - CHEMISTRY VANESSA TOMLIN [facility] Organization Address City/State/ZIP Co de Phone Number [facility] [address] [place] [address], [facility] [phone] * HCG BETA BLOOD QUANTITATIVE (06/09/2024 7:13 PM METAL FLOORING INSTALLER) Beta-hCG Total Quantitative <3 mIU/mL 06/09/2024 7:57 PM [facility] Comment: HCG Numeric Result Interpretation: ? Non- [...] Unknown Venipuncture / Unknown 06/09/2024 7:13 PM METAL FLOORING INSTALLER 06/09/2024 7:24 PM METAL FLOORING INSTALLER Maliha Tilley MD LAB - CHEMISTRY VANESSA TOMLIN [facility] Organization Address City/State/ZIP Co de Phone Number [place] [id number] [place] [address], [facility] [phone] * B-Scan Anterior Immersion (06/09/2024 11:41 AM METAL FLOORING INSTALLER) Anatomical Region Laterality Modality Head External-Camera Photography Narrative 06/09/2024 4:44 PM METAL FLOORING INSTALLER Images from the original result were not included. B scan OD without RD or vitreous opacity Sandeep Hernandez MD OPHTHALMOLOGY SCHED ORD W PACS * FUNDUS PHOTO BOTH EYES (06/09/2024 11:41 AM METAL FLOORING INSTALLER) Anatomical Region Laterality Modality Head External-Camera Photography Narrative 06/09/2024 4:44 PM METAL FLOORING INSTALLER Images from the original result were not included. Fundus photos OS with disc edema and yamini's lines Sandeep Hernandez MD OPHTHALMOLOGY SCHED ORD W PACS * LUIS AUTO VISUAL FIELD EXTENDED (06/09/2024 9:31 AM METAL FLOORING INSTALLER) Anatomical Region Laterality Modality Head External-Camera Photography Narrative 06/09/2024 4:44 PM METAL FLOORING INSTALLER Images from the original result were not included. Sandeep Hernandez MD OPHTHALMOLOGY SCHED ORD W PACS * RETINAL ANALYSIS OCT (06/09/2024 9:31 AM METAL FLOORING INSTALLER) Anatomical Region Laterality Modality Head External-Camera Photography Sandeep Hernandez MD OPHTHALMOLOGY SCHED ORD W PACS * EYE EXAM (06/01/2024) Anatomical Region Laterality Modality Other Narrative 06/01/2024 Ordered by an unspecified provider. Scanned Document SCANNING ONLY * HEMOGLOBIN A1C - POINT OF CARE (AMB) [facility] (03/29/2024 2:44 PM CDT) Hemoglobin A1c POCT 15 % [facility] [address] [facility] Blood BLOOD SPECIMEN / Unknown 03/29/2024 2:44 PM CDT Elder Garza MD LAB - POINT OF CARE ORDERABLES [facility] [address] [facility] [address] [facility] [place] [address] [phone] from Last 3 Months or Most Recently Relevant to Health Maintenance Care Teams Supervisor Delivery Department Relationship Specialty Start Date End Date Joesph Jacobo MD [address] [place] [phone] PCP - General Internal Medicine 08/10/24
--- OUTSIDE RECORDS SUMMARY | 2024-08-13 05:38 | XMS_ITS | Encounter Summary ---
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) Social History Tobacco Use Types Packs/Day Years Used Date Smoking Tobacco: Unknown Sex and Gender Information Value Date Recorded Sex Assigned at Not on file Gender Identity Not on file Sexual Orientation Not on file documented as of this encounter Plan of Treatment Upcoming Encounters Date Type Department Care Team (Late st Contact Info) Description 08/23/2024 10:15 AM FIVE ROLL REFINER BATCH MIXER Office Visit [facility] Ophthalmology [address] [place] [phone] Sandeep Hernandez MD [address] [place] [address] [place] [phone] 09/27/2024 9:45 AM FIVE ROLL REFINER BATCH MIXER Office Visit [facility] Ophthalmology [address] [place] [phone] Buddy Fuller MD [address] [place] [address] [place] [phone] 10/04/2024 1:00 PM FIVE ROLL REFINER BATCH MIXER Office Visit [facility] - Endocrinology [address] [place] [phone] Rosalia Hair MD [address] [facility] [place] [phone] 02/07/2025 8:30 AM CDT Office Visit [facility] - Rheumatology [address] [place] [phone] Roni Castañeda MD [facility] [place] [phone] documented as of this encounter Procedures Procedure Name Priority Date/Time Associated Diagnosis Comments ANTERIOR IMMERSION UNI/BI Routine 06/09/2024 11:41 AM FIVE ROLL REFINER BATCH MIXER Combined forms of age-related cataract of right eye documented in this encounter Results * B-Scan Anterior Immersion (06/09/2024 11:41 AM FIVE ROLL REFINER BATCH MIXER) Anatomical Region Laterality Modality Head External-Camera Photography Narrative 06/09/2024 4:44 PM FIVE ROLL REFINER BATCH MIXER Images from the original result were not included. B scan OD without RD or vitreous opacity Sandeep Hernandez MD OPHTHALMOLOGY SCHED ORD W PACS documented in this encounter Visit Diagnoses Diagnosis Combined forms of age-related cataract of right eye- Primary Other and combined forms of senile cataract documented in this encounter Care Teams Pin Drafter Relationship Specialty Start Date End Date Adair Finn, SENIOR INFRASTRUCTURE ENGINEER-FEEDER ASSOCIATE [address] [place] [address] PCP - General Nurse Practitioner Adult Health 03/29/24 08/09/24 documented as of this encounter
--- OUTSIDE RECORDS SUMMARY | 2024-08-13 05:38 | XMS_ITS | Encounter Summary ---
Author Organization [facility] Address [address] [place] [address] Care Team Providers Care Principal Secretary Name Role Phone Adair Finn APRN-NOODLE MAKER Primary Care P rovaleri Reason for Visit * Reason Comments Eye Problem Encounter Details Date Type Department Care Team (Late st Contact Info) Description 06/09/2024 8:30 AM POOL NURSE Office Visit [facility] - Ophthalmology [address] [place] [phone] Optic disc edema (Primary Dx); Combined forms of age-related cataract of right eye Social History Tobacco Use Types Packs/Day Years Used Date Smoking Tobacco: Unknown Tobacco Cessation:Counseling Given: Not Answered Sex and Gender Information Value Date Recorded Sex Assigned at Not on file Gender Identity Not on file Sexual Orientation Not on file documented as of this encounter Progress Notes * Daina Cook MD - 06/09/2024 1:52 PM CST PLAN OF CARE Patient with optic disc edema who needs papilledema work up including: MRI brain and orbits wwo contrast (1 mm cuts). MRA/MRV brain Lumbar puncture with opening pressure and CSF cytology and cultures. ESR, CRP, Angiotensin converting enzyme, SUSHANT CXR Quantiferon-TB gold plus,HIV-1 HIV-2 Ab + Ag panel, bartonella IgM Ab, lyme disease Ab, syphilis total Ab w/ reflex NURSE * Daina Cook MD - 06/09/2024 9:28 AM CST Images from the original note were not included. Ophthalmology Office Note [facility] Subjective: Chief Complaint Patient presents with Eye Problem Ms. Madeleine Mendoza is a 39 year old female who presents today for evaluation of papilledema. Lost vision in left eye in November, left lens replacement February 21. Last 3 weeks, pt has lost most vision in left eye. Right eye replacement supposed to be in April, now on June 26. Saw Dr. Paulson last which referred to pt to [facility]. Optic nerve inflamed in left eye possibly 2/2 thyroid disease. Last A1c was in June 2023, 14.6. Pt did see strobed, more noticeable when blood sugars are high (>400). No dark spots or curtain over the vision. Corneal haze reported in left eye, righteye vision covered in shiny gaze. Past History: No past medical history on file. No past surgical history on file. No family history on file. Social History Smoking status: Unknown Smokeless tobacco: Not on file Alcohol use: Not on file Drug use: Unknown Sexual activity: Not on file Review of Systems (positives in bold) Constitutional: Chills, fever and weight loss. HENT: Ear discharge, hearing loss and tinnitus. Respiratory: Cough, hemoptysis and wheezing. Cardiovascular: Chest pain and palpitations. Gastrointestinal: Abdominal pain, nausea and vomiting. Genitourinary: Dysuria, frequency and urgency. Musculoskeletal: Back pain, falls and myalgias. Skin: Itching and rash. Neurological: Sensory change, speech change and focal weakness. Psychiatric/Behavioral: Hallucinations, substance abuse and suicidal ideas. Current Outpatient Medications Medication Sig Dispense Refill amphetamine-dextroamphetamine (Adderall) 20 MG tablet Take 1 (one) tablet by mouth 2 times daily (Patient not taking: Reported on 03/29/2024) Continuous Glucose Sensor (Dexcom G6 Sensor) [facility] USE DIRECTED TO MONITOR GLUCOSE; CHANGE EVERY 10 DAYS 9 Each 11 Continuous Glucose Transmitter (Dexcom G6 Transmitter) [facility] insulin lispro (HumaLOG) 100 UNIT/ML vial INJECT 90 UNITS UNDER THE SKIN DAILY VIA CONTINUOUS INFUSION DEVICE 30 mL 2 No current facility-administered medications for this visit. No Known Allergies Objective: Base Eye Exam Visual Acuity (Snellen - Linear) Right Left Dist sc HM 20/25 Dist ph sc 20/25 +2 Tonometry (Tonopen, 9:39 AM) Right Left Pressure 14 12 Pupils Dark Light Shape React APD Right 2.5 1.5 Round 3+ None Left 2.5 1.5 Round 3+ None Extraocular Movement Right Left 0 0 0 0 0 0 0 0 0 0 0 0 0 0 0 0 Neuro/Psych Oriented x3: Yes Mood/Affect: Normal Additional Tests Color Right Left Ishihara ROLO 16/16 Red desaturation test: red is more dim but same shade OD Slit Lamp and Fundus Exam Slit Lamp Exam Right Left Lids/Lashes Normal Normal Conjunctiva/Sclera White and quiet White and quiet Cornea Clear endopigement Anterior Chamber Deep and quiet Deep and quiet Iris Round and reactive Round and reactive Lens White cataract Posterior chamber intraocular lens, no PCO Anterior Vitreous no view Normal Fundus Exam Right Left Disc no view Disc edema 360, gliosis, merlin's lines, small and large vessel obscuration C/D Ratio ROLO Macula Normal Vessels Few MA, DBH, otherwise normal Periphery Normal Study Findings 06/09/2024: B-Scan Anterior Immersion B scan OD without RD or vitreous opacity FUNDUS PHOTO BOTH EYES Fundus photos OS with disc edema and merlin's lines LUIS AUTO VISUAL FIELD EXTENDED Assessment/Plan: Madeleine Mendoza is a 39 year old female Grade III disc edema OS - Presented on 06/09/24 to [facility] as a referral from community natural resources technician after a DFE that was performed on 06/01/24 noting concern for disc abnormality OS - Pt received CEIOL OS with that same provider. States she noted dramatic improvement in vision after the surgery (late January). Over the past 3 weeks she has been noting 'glare' in the center of her vision and states she 'cannot see' - States she lost half her weight from 2019 to 2022, after which she has maintained a stable weight - Endorses chronic mild headaches and recent postural TVOs - Denies tinnitus, spontaneous TVO - VA 06/09/24: HM OD, 20/25 OS. Full color plates OS, unable to obtain OD. Red desaturation test negative. - HVF size V OD unreliable and with generalized defect of visual field - HVF size III OS unreliable and with altitudinal defect - Unable to obtain OCT-H nerve OS. - Exam with well centered PCIOL and disc edema and gliosis, large vessel obscuration, and merlin's lines. - Fundus photo OS obtained 06/09/24 White cataract OD - Likely 2/2 diabetes - Scheduled for surgery in late June - B scan OD 06/09/[address] or vitreous opacity T1DM with mild NPDR OS - Diagnosed in 2019 as type II. More recently states she has been treated as a type I. - States she never had antibody testing performed. - On insulin pump (per pt, not titrating insulin properly) - Highest A1c >16 for >1 year (Last A1c 15% on 03/29/24) - Denies hx of IN/CVA - Current 1/2 PPD Smoker for 20+ years - Denies anticoagulant therapy - DFE today 06/09/24 with few MA/Dot hemes Pseudophakia OS - CEIOL performed in January 2024 Hypothyroidism - On synthroid - Unclear if controlled Plan: - Fundus photos obtained OS 06/09/24 Recommended to pt to go directly to the ED for papilledema work up including: MRI brain and orbits wwo contrast (1 mm cuts). MRA/MRV brain Lumbar puncture with opening pressure and CSF cytology and cultures. ESR, CRP, Angiotensin converting enzyme, SUSHANT CXR Quantiferon-TB gold plus,HIV-1 HIV-2 Ab + Ag panel, bartonella IgM Ab, lyme disease Ab, syphilis total Ab w/ reflex - Patient decided to go home first and then present to the ED Patient verbalizes understanding of the above assessment/plan, patient's questions were answered tothe best of my ability, and patient agrees with the plan. Patient was seen with Dr. Hernandez. Daina Cook MD Ophthalmology Resident 06/09/2024 4:42 PM NURSE Associated attestation - Sandeep Hernandez MD - 06/09/2024 4:43 PM POOL NURSE I have examined the patient in person with the resident and/or student, verified reyes portions of the exam, reviewed the note and amended it as needed, and discussed the assessment and plan with the resident and/or student, who incorporated the recommendations into their note. I also discussed the exam findings and my recommendations with the patient and any family members in attendance. Their questions were answered fully. Arrangements for follow-up appointments and testing were scheduled priorto the patient's departure. In addition, I note the following: Grade III disc edema OS. DFE today shows blurring of disc margins x 360 degrees, significant peripapillary gliosis, and possible Merlin's lines OS. Plan: - Fundus photos obtained OS today 06/09/2024. - Recommend patient go directly to the ED for papilledema work up including the following: MRI brain and orbits wwo contrast (1 mm cuts). MRA/MRV brain Lumbar puncture with opening pressure and CSF cytology and cultures. ESR, CRP, Angiotensin converting enzyme, SUSHANT CXR Quantiferon-TB gold plus,HIV-1 HIV-2 Ab + Ag panel, bartonella IgM Ab, lyme disease Ab, syphilis total Ab w/ reflex. Recommend Neurology consult. If LP opening pressure is elevated, recommend Neurosurgery Consult, since patient has already suffered visual field loss and may need a CSF shunting procedure. Patient and her mother decided to go home first to collect some personal items, and then return to the ED in one hour. See resident note for further details. All findings confirmed by myself. - Presented on 06/09/24 to [facility] as a referral from community natural resources technician after a DFE that was performed on 06/01/24 noted disc abnormality OS. - Pt received CEIOL OS with that same provider. States she noted dramatic improvement in vision after the surgery (late January). Over the past 3 weeks she has been noting 'glare' in the center of her vision and states she 'cannot see' - States she lost half her weight from 2019 to 2022, after which she has maintained a stable weight - Patient reports chronic mild headaches and recent postural TVOs. Patient denies pulsatile tinnitus or whooshing sound. - VA 06/09/24: HM OD, 20/25 OS. Full color plates OS, unable to obtain OD. Red desaturation test negative. - HVF size V OD unreliable and with generalized depression of visual field OD. - HVF size III OS: unreliable, with central, superior, and inferior defects. - Unable to obtain OCT-H nerve OD. - Exam with well centered PCIOL and disc edema and gliosis, large vessel obscuration, and merlin's lines. - Fundus photo OS obtained 06/09/24 White cataract OD: - B scan OD today (06/09/2024) shows a flat retina and no vitreous opacities. - Likely 2/2 diabetes. Patient noticed rapid onset of blurring when blood sugars were poorly controlled. - Scheduled for surgery in late June. T1DM with mild NPDR OS - Diagnosed in 2019 as type II. More recently states she has been treated as a type I. - States she never had antibody testing performed. - On insulin pump (per pt, not titrating insulin properly) - Highest A1c >16 for >1 year (Last A1c 15% on 03/29/24) - Denies hx of IN/CVA - Current 1/2 PPD Smoker for 20+ years - Denies anticoagulant therapy - DFE today 06/09/24 with few MA/Dot hemes Pseudophakia OS - CEIOL performed in January 2024 Hypothyroidism - On synthroid - Unclear if controlled Sandeep Hernandez MD, PhD Attending, Cornea and Anterior Segment Service Date of Service: 06/09/2024 documented in this encounter Plan of Treatment Upcoming Encounters Date Type Department Care Team (Late st Contact Info) Description 08/23/2024 10:15 AM POOL NURSE Office Visit [facility] - Ophthalmology [address] [place] [phone] Sandeep Hernandez MD [address] [place] [address] [place] [phone] 09/27/2024 9:45 AM POOL NURSE Office Visit [facility] - Ophthalmology [address] [place] [phone] Buddy Fuller MD [address] [place] [address] [place] [phone] 10/04/2024 1:00 PM POOL NURSE Office Visit [facility] - Endocrinology [address] [place] [phone] Rosalia Hair MD [facility] [phone] 02/07/2025 8:30 AM CDT Office Visit [facility] - Rheumatology [address] [place] [address], [place] [phone] Roni Castañeda MD [address] [place] [address] [place] [phone] documented as of this encounter Results * B-Scan Anterior Immersion (06/09/2024 11:41 AM POOL NURSE) Anatomical Region Laterality Modality Head External-Camera Photography Narrative 06/09/2024 4:44 PM POOL NURSE Images from the original result were not included. B scan OD without RD or vitreous opacity Sandeep Hernandez MD OPHTHALMOLOGY SCHED ORD W PACS * FUNDUS PHOTO BOTH EYES (06/09/2024 11:41 AM POOL NURSE) Anatomical Region Laterality Modality Head External-Camera Photography Narrative 06/09/2024 4:44 PM POOL NURSE Images from the original result were not included. Fundus photos OS with disc edema and merlin's lines Sandeep Hernandez MD OPHTHALMOLOGY SCHED ORD W PACS * LUIS AUTO VISUAL FIELD EXTENDED (06/09/2024 9:31 AM POOL NURSE) Anatomical Region Laterality Modality Head External-Camera Photography Narrative 06/09/2024 4:44 PM POOL NURSE Images from the original result were not included. Sandeep Hernandez MD OPHTHALMOLOGY SCHED ORD W PACS * RETINAL ANALYSIS OCT (06/09/2024 9:31 AM POOL NURSE) Anatomical Region Laterality Modality Head External-Camera Photography Sandeep Hernandez MD OPHTHALMOLOGY SCHED ORD W PACS documented in this encounter Visit Diagnoses Diagnosis Optic disc edema- Primary Papilloedema, unspecified Combined forms of age-related cataract of right eye Other and combined forms of senile cataract Optic disc edema- Primary Papilloedema, unspecified Optic disc edema- Primary Papilloedema, unspecified Combined forms of age-related cataract of right eye- Primary Other and combined forms of senile cataract documented in this encounter Care Teams Principal Secretary Relationship Specialty Start Date End Date Adair Finn, SUPERVISOR MOLDING-NOODLE MAKER [address] [place] [address] PCP - General Nurse Practitioner Adult Health 03/29/24 08/09/24 documented as of this encounter
--- OUTSIDE RECORDS SUMMARY | 2024-08-13 05:38 | XMS_ITS | Encounter Summary ---
Author Organization [facility] Address [address] [place] [address] Care Team Providers Care Vegetable Ii Farmworker Name Role Phone Adair Finn APRN-PAYROLL BENEFITS ADMINISTRATOR Primary Care P rojadielder Reason for Visit * Reason Onset Date Comments Eye Problem 06/07/2024 Encounter Details Date Type Department Care Team (Late st Contact Info) Description 06/07/2024 Telephone [facility] - Op[facility]mology [address] [place] [phone] Faisal Cesar MD [address] [place] [phone] Eye Problem Social History Tobacco Use Types Packs/Day Years Used Date Smoking Tobacco: Never Assessed Sex and Gender Information Value Date Recorded Sex Assigned at Not on file Gender Identity Not on file Sexual Orientation Not on file documented as of this encounter Miscellaneous Notes * Telephone Encounter - Fasial Cesar MD - 06/07/2024 3:59 PM CST Telephone Encounter Note: 06/07/24 Returned Phone Call regarding Madeleine, patient referred to [facility] for sudden onset vision loss and foundto have papilledema at outside hospital. There was no answer, a message was left on voicemail requesting for the patient to call us back Our telephone discussion: Attempted to call patient - no answer. Message left on voicemail asking patient to call the office back to discuss their symptoms or to schedule an appointment to be seen. Clinic ([phone]) and hospital ([phone]) numbers provided. Also let patient know if they are having an emergency that they can present to the ER and be seen there. Will attempt to call again tomorrow. Faisal Cesar MD Ophthalmology Resident 06/07/2024 OR CONTACT CENTRE COACH documented in this encounter Plan of Treatment Upcoming Encounters Date Type Department Care Team (Late st Contact Info) Description 08/23/2024 10:15 AM CALL OR CONTACT CENTRE COACH Office Visit [facility] - Ophthalmology [address] [place] [phone] Sandeep Hernandez MD [address] [place] [address] [place] [phone] 09/27/2024 9:45 AM CALL OR CONTACT CENTRE COACH [facility] [address] [place] [phone] Buddy Fuller MD [address] [place] [address] [place] [phone] 10/04/2024 1:00 PM CALL OR CONTACT CENTRE COACH [facility] [address] [place] [phone] Rosalia Hair MD [address] [facility] [place] [phone] 02/07/2025 8:30 AM CDT Office Visit [facility] - Rheumatology [address] [place] [phone] Roni Castañeda MD [address] [place] [address] [place] [phone] documented as of this encounter Visit Diagnoses Not on filedocumented in this encounter Care Teams Vegetable Ii Farmworker Relationship Specialty Start Date End Date Adair Finn, ONCOLOGY REGISTRAR-PAYROLL BENEFITS ADMINISTRATOR [address] [place] [address] PCP - General Nurse Practitioner Adult Health 03/29/24 08/09/24 documented as of this encounter
--- OUTSIDE RECORDS SUMMARY | 2024-08-13 05:38 | XMS_ITS | Encounter Summary ---
Author Organization [facility] Address [facility] [place] [address] Care Team Providers Care Program Proposals Coordinator Name Role Phone Adair Finn APRN-DIRECTOR INFORMATION SECURITY Primary Care P rojadielder Reason for Visit * Reason Comments Refill Request Encounter Details Date Type Department Care Team (Late Contact Info) Description 07/21/2024 Refill [facility] Endocrinology [address] [place] [phone] Rosalia Hair MD [address] [place] [address] [place] [phone] Refill Request Social History Tobacco Use Types Packs/Day Years Used Date Smoking Tobacco: Unknown Sex and Gender Information Value Date Recorded Sex Assigned at Not on file Gender Identity Not on file Sexual Orientation Not on file documented as of this encounter Plan of Treatment Upcoming Encounters Date Type Department Care Team (Late Contact Info) Description 08/23/2024 10:15 AM RISK CONTROL REPRESENTATIVE Office Visit [facility] - Ophthalmology [address] [place] [phone] Sandeep Hernandez MD [address] [place] [address] [place] [phone] 09/27/2024 9:45 AM RISK CONTROL REPRESENTATIVE Office Visit [facility] Ophthalmology [address] [place] [phone] Buddy Fuller MD [address] [facility] [place] [phone] 10/04/2024 1:00 PM RISK CONTROL REPRESENTATIVE Office Visit [facility] - Endocrinology [address] [place] [address], [place] [phone] Rosalia Hair MD [address] [facility] [place] [phone] 02/07/2025 8:30 AM CDT [facility] [address] [place] [phone] Roni Castañeda MD [address] [facility] [place] [phone] documented as of this encounter Visit Diagnoses Not on filedocumented in this encounter Care Teams Program Proposals Coordinator Relationship Specialty Start Date End Date Adair Finn, SAP TREASURY CONSULTANT-DIRECTOR INFORMATION SECURITY [address] [place] [address] PCP - General Nurse Practitioner Adult Health 03/29/24 08/09/24 documented as of this encounter
--- OUTSIDE RECORDS SUMMARY | 2024-08-13 05:38 | XMS_ITS | Encounter Summary ---
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) Elder Garza MD [address] [place] [address] [place] [address] Referral ID Status Reason Start Date Expiration Date Visits Re quested Visits Authorized [id number] Closed 1 1 ERENCE CONCIERGE Encounter Details Date Type Department Care Team (Late Contact Info) Description 07/24/2024 Orders Only [facility] - Endocrinology [address] [place] [address], [place] [phone] Annabelle Sandoval, RD/LD [address] [place] [address] 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) Social History Tobacco Use Types Packs/Day Years Used Date Smoking Tobacco: Unknown Sex and Gender Information Value Date Recorded Sex Assigned at Not on file Gender Identity Not on file Sexual Orientation Not on file documented as of this encounter Plan of Treatment Upcoming Encounters Date Type Department Care Team (Late Contact Info) Description 08/23/2024 10:15 AM CONFERENCE CONCIERGE Office Visit [facility] - Ophthalmology [address] [place] [phone] Sandeep Hernandez MD [address] [place] [address] [place] [phone] 09/27/2024 9:45 AM CONFERENCE CONCIERGE Office Visit [facility] - Ophthalmology [address] [place] [phone] Buddy Fuller MD [address] [place] [address] [place] [phone] 10/04/2024 1:00 PM CONFERENCE CONCIERGE Office Visit [facility] - Endocrinology [address] [place] [phone] Rosalia Hair MD [facility] [place] [phone] 02/07/2025 8:30 AM CDT Office Visit [facility] - Rheumatology [address] [place] [phone] Roni Castañeda MD [address] [place] [address] [place] [phone] documented as of this encounter Visit Diagnoses Diagnosis 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
--- OUTSIDE RECORDS SUMMARY | 2024-08-13 05:38 | XMS_ITS | Encounter Summary ---
Author Organization [facility] Address [address] [facility] [place] [address] Care Team Providers Care Alcohol Still Operator Name Role Phone Adair Finn APRN-APPLICATION ARCHITECT Primary Care P fito Reason for Visit * Reason Comments Results Pt. BIBSELF for a ch efrem in vision, patient left AMA and returned after smoking for an hour and was discharged from the system, pt assumed staff would hold room. Encounter Details Date Type Department Care Team (Late st Contact Info) Description 06/10/2024 11:27 AM MANUFACTURING ELECTRICIAN - 06/10/2024 11:47 AM [facility] Emergency [facility] EMERGENCY DEPARTMENT [address] [place] [phone] Tobias Flood MD [address] [facility] [place] [address] Hyperglycemia (Primary Dx); Diabetes mellitus due to underlying condition without complication, without long-term current use of insulin (HCC) Discharge Disposition: Home or Self Care Social History Tobacco Use Types Packs/Day Years Used Date Smoking Tobacco: Unknown Sex and Gender Information Value Date Recorded Sex Assigned at Not on file Gender Identity Not on file Sexual Orientation Not on file documented as of this encounter Last Filed Vital Signs Vital Sign Reading Time Taken Comments Blood Pressure 120/82 06/10/2024 10:51 AM MANUFACTURING ELECTRICIAN Pulse 111 06/10/2024 10:51 AM MANUFACTURING ELECTRICIAN Temperature 36.6 ??C (97.9 ??F) 06/10/2024 10:[address] Respiratory Rate 18 06/10/2024 10:51 AM MANUFACTURING ELECTRICIAN Oxygen Saturation 100% 06/10/2024 10:51 AM MANUFACTURING ELECTRICIAN Inhaled Oxygen Concentration - - Weight - - Height - - Body Mass Index - - documented in this encounter Discharge Instructions * Discharge Instructions* Laith Goldberg MD - 06/10/2024 11:31 AM MANUFACTURING ELECTRICIAN You were seen at the [facility] Emergency Department for vision changes. The diagnostic studies obtained during this visit showed you had no emergent neurological issues. Follow up with your primary doctor right away to discuss this visit and any follow-up appointments with them. Return to [facility] Emergency Department as needed for worsening of your symptoms or new fevers, chest pain, shortness of breath, or injury. FACTURING ELECTRICIAN documented in this encounter Medications at Time of Discharge Medication Sig Dispensed Refills Start Date End Date Continuous Glucose Sensor (Dexcom G6 Sensor) MISCIndications:Type 2 diabetes mellitus with other specified complication, with long-term current use of insulin (HCC) USE DIRECTED TO MONITOR GLUCOSE; CHANGE EVERY 10 DAYS 9 Each 11 05/02/2024 Insulin Disposable Pump (Omnipod 5 OojF6E3 Pods Gen 5) MISC USE AND CHANGE EVERY 48 HOURS 03/13/2024 insulin lispro (HumaLOG) 100 UNIT/ML vial INJECT 90 UNITS UNDER THE SKIN DAILY VIA CONTINUOUS INFUSION DEVICE 30 mL 2 04/26/2024 amphetamine-dextroamphe tamine (Adderall) 20 MG tablet Take 1 (one) tablet by mouth 2 times daily 07/20/2023 08/10/2024 Continuous Glucose Transmitter (Dexcom G6 Transmitter) MISC 03/14/2024 08/10/2024 documented as of this encounter ED Notes * Celia Haley RN - 06/10/2024 11:27 AM CST Bed side glucose >500. FACTURING ELECTRICIAN * Tobias Flood MD - 06/10/2024 11:26 AM CST ED ATTENDING NOTE Interval History: Madeleine Mendoza is a 39 year old female with a past medical history that includes T1DM is presenting to the ED c/o pending results. Pt was initially sent by Ophthalmology to the ED for an MRI and LP. She was also waiting for symptomatic control. Pt was previously in the ED but then left and was declared discharged. She then re-entered the waiting room. Pt states that she has established care with an fuel cell binder and has a Dex-com and insulin patch that control her blood sugar. She states that she is back to her baseline and ready to leave. No other acute medical complaints at this time. No past medical history on file. No past surgical history on file. Social History Socioeconomic History Marital status: Single Spouse name: Not on file Number of children: Not on file Years of education: Not on file Highest education level: Not on file Occupational History Not on file Tobacco Use Smoking status: Unknown Smokeless tobacco: Not on file Vaping Use Vaping status: Not on file Substance and Sexual Activity Alcohol use: Not on file Drug use: Not on file Sexual activity: Not on file Other Topics Concern Not on file Social History Narrative Not on file Social Determinants of Health Financial Resource Strain: Low Risk (04/07/2024) Received from [facility] Overall Financial Resource Strain (CARDIA) How hard is it for you to pay for the very basics like food, housing, medical care, and heating?: Not hard at all Food Insecurity: No Food Insecurity (04/07/2024) Received from [facility] Hunger Vital Sign Worried About Running Out of Food in the Last Year: Never true Ran Out of Food in the Last Year: Never true Transportation Needs: No Transportation Needs (04/07/2024) Received from [facility] PRAPARE - Transportation In the past 12 months, has lack of transportation kept you from medical appointments or from getting medications?: No In the past 12 months, has lack of transportation kept you from meetings, work, or from getting things needed for daily living?: No Stress: Not on file Housing Stability: Low Risk (04/07/2024) Received from [facility] Housing Stability Vital Sign Unable to Pay for Housing in the Last Year: No Number of Times Moved in the Last Year: 0 Homeless in the Last Year: No ROS All pertinent ROS per HPI. Vitals: 06/10/24 1051 BP: 120/82 Pulse: (!) 111 Resp: 18 Temp: 97.9 ??F (36.6 ??C) SpO2: 100% Physical Exam Medical Decision Making: Dx: 39 y.o female presenting to the ED for pending results. DDx:No insulin usage vs dietary indiscretion vs UTI vs PNA vs stimulant abuse vs other. Plan: Review past labs and likely discharge. Results: Labs Reviewed - No data to display No orders to display ED course: The patient's Oxygen Saturation Monitor was interpreted by me. The reading was 100%. The patient was on RA at the time of the reading. This is interpreted as normal. 1129: I have reviewed her diagnostic findings and she has had an opportunity to ask me any questions she has about care, diagnosis and discharge plan. Patient is comfortable with the discharge plan. She will follow up as directed and will return to the ER if her condition worsens or she develops other urgent concerns. Consult No Procedure done at this time No Ultrasound done at this time No CRITICAL CARE IN THE ED No Orders and Medicine administered during this encounter: No orders of the defined types were placed in this encounter. Medications - No data to display Clinical Impression: 1. Hyperglycemia 2. Diabetes mellitus due to underlying condition without complication, without long-term current use of insulin (HCC) Disposition: Discharge. Follow-up: Follow-up Information Adair Finn APRN-MARCY. Specialty: Nurse Practitioner Adult Health Why: As needed Contact information: [address] [address] By signing my name below, I, Andrew Barrera, attest that this documentation has been prepared under the direction and in the presence of Dr. Flood. Signed: Norma Reveles. I, Dr. Flood, personally performed the services described in this documentation. All medical record entries made by the scribe were at my direction and in my presence. I have reviewed the chart and agree that the record reflects my personal performance and is accurate and complete. FACTURING ELECTRICIAN * Tobias Schafer MD - 06/10/2024 11:14 AM CST ASSUMED CARE NOTE Patient signed out to me by Dr. Mcneill at 6:16 AM. Briefly, Madeleine Mendoza is a 39 year old female is being evaluated for vision loss of left eye. At this time the patient's condition is Stable. Pending labs. Plan is discharge. Vitals: 06/10/24 1051 BP: 120/82 Pulse: (!) 111 Resp: 18 Temp: 97.9 ??F (36.6 ??C) SpO2: 100% Clinical Impression: No diagnosis found. Disposition: Discharge By signing my name below, I, Denver Martin , attest that this documentation has been prepared under the direction and in the presence of Dr. Schafer. Signed: Norma Ewing. I, Dr. Schafer, personally performed the services described in this documentation. All medical record entries made by the scribe were at my direction and in my presence. I have reviewed the chart and agree that the record reflects my personal performance and is accurate and complete. FACTURING ELECTRICIAN * Boo Resendiz RN - 06/10/2024 10:51 AM CST Pt. BIBSELF for a change in vision, patient left AMA and returned after smoking for an hour and wasdischarged from the system, pt assumed staff would hold room. FACTURING ELECTRICIAN documented in this encounter Miscellaneous Notes * Clinical References LINNEA - Tobias Flood MD - 06/10/2024 11:29 AM MANUFACTURING ELECTRICIAN [id number] High Blood Sugar (Hyperglycemia) Too much sugar (glucose) in your blood is called high blood sugar (hyperglycemia). This can lead to2 dangerous conditions called ketoacidosis and hyperosmolar hyperglycemic state. In severe cases, these can lead to fluid loss (dehydration) and other serious complications like coma. Talk with your healthcare provider about what blood sugar range is normal for you. Work with your provider to make a plan for treating high blood sugar. Possible causes of high blood sugar ?? Not having a good treatment plan for diabetes ?? Being sick ?? Being under stress ?? Taking certain medicines, such as steroids ?? Eating too much food, especially carbohydrates ?? Being less active than normal ?? Not taking enough diabetes medicine ?? Not taking diabetes medicine at the right time Symptoms of high blood sugar High blood sugar may not cause symptoms. If you do have symptoms, they may include: ?? Thirst ?? Dry mouth ?? Needing to pee more often ?? Feeling tired or drowsy ?? Upset stomach (nausea) and vomiting ?? Belly (abdominal) pain ?? Itchy, dry skin ?? Blurry vision ?? Fast breathing ?? Breath that smells fruity ?? Weakness ?? Dizziness ?? Flushed face ?? Wounds or skin infections that don?t heal ?? Unexplained weight loss if high blood sugar lasts for more than a few days What to do If you have symptoms of high blood sugar or think it might be high, check your blood sugar. If yourblood sugar is high, do the following unless told otherwise by your provider: ?? Take your diabetes medicines as prescribed. Doses of medicines such as insulin can be increased slightly if your blood sugar stays high. But your provider must approve this. Don't adjust doses by yourself. ?? Check your blood sugar more often, or as directed by your healthcare provider. ?? Drink plenty of sugar-free, caffeine-free liquids such as water. Don?t drink fruit juice. ?? Follow your sick day plan for taking medicine. ?? Check your blood or urine for ketones as directed by your healthcare provider. If you have ketones, don't exercise. This may make your blood sugar higher. ?? Call your provider if your blood sugar and ketones don't go back to your target range. When you have hyperglycemia, drink plenty of water or other sugar-free, caffeine-free liquids. Preventing high blood sugar To help keep your blood sugar from getting too high: ?? Control stress. ?? When you're ill, follow your sick day plan. ?? Follow your meal plan. Eat only the amount of food on your meal plan. ?? Stick to your exercise plan. ?? Take your insulin or diabetes medicines as directed by your healthcare team. ?? Test your blood sugar as directed. ?? If your diabetes plan isn't working for you, talk with your healthcare provider. What is diabetic ketoacidosis (DKA)? When you don?t have enough insulin to use the glucose in your blood, your body wiley fat for energy. This releases a waste product called ketones. High levels of ketones in your body can lead to diabetic ketoacidosis (DKA). DKA can be life threatening. If you have DKA, you need to be treated in a hospital. Your treatment will likely include: ?? Fluids through IV. This is to replace fluids lost through too much peeing. And it helps dilute the excess sugar in your blood. ?? Electrolytes. These are minerals in your body that help your nerves, muscles, heart, and brain work the way they should. Low insulin can lower your electrolyte levels. ?? Insulin. Insulin helps your body use glucose and reverses the problem that led to DKA. ?? Medicines. You may need medicine for an illness that caused DKA, such as antibiotics for an infection. Other safety steps ?? Carry a medical ID card or a [address] drive. Or wear a medical alert bracelet or necklace. Itshould say that you have diabetes. It should also say what to do in case you pass out or go into a coma. ?? Make sure family, friends, and coworkers know the signs of high blood sugar. Tell them what to do if your blood sugar gets very high and you need help. ?? Talk with your healthcare team about other things you can do to prevent high blood sugar. When to get medical care Get medical care right away if you have any of these: ?? Blood sugar that stays high even after treatment ?? Symptoms of high blood sugar that don't get better ?? Moderate or large amounts of ketones ?? Confusion ?? Shortness of breath or fast breathing ?? Breath that smells fruity ?? Vomiting or unable to eat or drink Last Reviewed Date: 2023 00:00:00 ?? [id number] [employer]. All rights reserved. This information is not intended as a substitute for professional medical care. Always follow your healthcare professional's instructions. FACTURING ELECTRICIAN documented in this encounter Plan of Treatment Upcoming Encounters Date Type Department Care Team (Late st Contact Info) Description 08/23/2024 10:15 AM MANUFACTURING ELECTRICIAN Office Visit [facility] - Ophthalmology [address] [place] [phone] Sandeep Hernandez MD [address] [place] [address] [place] [phone] 09/27/2024 9:45 AM MANUFACTURING ELECTRICIAN [facility] [address] [place] [phone] Buddy Fuller MD [address] [place] [address] DEPT [place] [phone] 10/04/2024 1:00 PM MANUFACTURING ELECTRICIAN Office Visit [facility] - Endocrinology [address] [place] [phone] Rosalia Hair MD [facility] [place] [phone] 02/07/2025 8:30 AM CDT Office Visit [facility] - Rheumatology [address] [place] [phone] Roni Castañeda MD [address] [place] [address] [place] [phone] documented as of this encounter Procedures Procedure Name Priority Date/Time Associated Diagnosis Comments GLUCOSE - POINT OF CARE Routine 06/10/2024 11:24 AM MANUFACTURING ELECTRICIAN documented in this encounter Results * (ABNORMAL) GLUCOSE - POINT OF CARE (06/10/2024 11:24 AM MANUFACTURING ELECTRICIAN) Glucose WB/POC >500(HH) 70 - 99 mg/dL 06/12/2024 10:59 AM MANUFACTURING ELECTRICIAN [facility] Specimen Type Cap Fingerstick 2023 10:59 AM MANUFACTURING ELECTRICIAN [facility] Blood BLOOD SPECIMEN / Unknown 06/10/2024 11:24 AM MANUFACTURING ELECTRICIAN 06/12/2024 10:59 AM MANUFACTURING ELECTRICIAN Provider Unknown LAB - POINT OF CARE ORDERABLES [facility] [address] [place] [address], [facility] [phone] documented in this encounter Visit Diagnoses Diagnosis Hyperglycemia- Primary Other abnormal glucose Diabetes mellitus due to underlying condition without complication, without long-term current use of insulin (HCC) documented in this encounter Care Teams Alcohol Still Operator Relationship Specialty Start Date End Date Adair Finn, PHARMACEUTICAL ANALYST-APPLICATION ARCHITECT [address] [place] [address] PCP - General Nurse Practitioner Adult Health 03/29/24 08/09/24 documented as of this encounter
--- OUTSIDE RECORDS SUMMARY | 2024-08-13 05:38 | XMS_ITS | Encounter Summary ---
Author Organization [facility] Address [address] [facility] [place] [address] Care Team Providers Care Service Planner Name Role Phone Adair Finn APRN-PROGRAMMER BUSINESS Primary Care P aprilvaleri Encounter Details Date Type Department Care Team (Latest Contact Info) Description 06/09/2024 9:35 AM HEATING AND AIR CONDITIONING MECHANIC Clinical Support [facility] - Ophthalmology [address] [place] [phone] Sandeep Hernandez MD [address] [place] [address] [place] [phone] Optic disc edema (Primary Dx) Social History Tobacco Use Types Packs/Day Years Used Date Smoking Tobacco: Unknown Sex and Gender Information Value Date Recorded Sex Assigned at Not on file Gender Identity Not on file Sexual Orientation Not on file documented as of this encounter Plan of Treatment Upcoming Encounters Date Type Department Care Team (Late st Contact Info) Description 08/23/2024 10:15 AM HEATING AND AIR CONDITIONING MECHANIC Office Visit [facility] - Ophthalmology [address] [place] [phone] Sandeep Hernandez MD [address] [place] [address] [place] [phone] 09/27/2024 9:45 AM HEATING AND AIR CONDITIONING MECHANIC [facility] [address] [place] [phone] Buddy Fuller MD [address] [facility] [place] [phone] 10/04/2024 1:00 PM HEATING AND AIR CONDITIONING MECHANIC Office Visit [facility] - Endocrinology [address] [place] [address], [place] [phone] Rosalia Hair MD [address] [facility] [place] [phone] 02/07/2025 8:30 AM CDT Office Visit [facility] - Rheumatology [address] [place] [address], [place] [phone] Roni Castañeda MD [address] [facility] [place] [phone] documented as of this encounter Procedures Procedure Name Priority Date/Time Associated Diagnosis Comments RETINAL ANALYSIS OCT Routine 06/09/2024 9:[address] Optic disc edema documented in this encounter Results * RETINAL ANALYSIS OCT (06/09/2024 9:31 AM HEATING AND AIR CONDITIONING MECHANIC) Anatomical Region Laterality Modality Head External-Camera Photography Sandeep Hernandez MD OPHTHALMOLOGY SCHED ORD W PACS documented in this encounter Visit Diagnoses Diagnosis Optic disc edema- Primary Papilloedema, unspecified documented in this encounter Care Teams Service Planner Relationship Specialty Start Date End Date Adair Finn, MARINE ENGINE MACHINIST APPRENTICE-PROGRAMMER BUSINESS [address] [place] [address] PCP - General Nurse Practitioner Adult Health 03/29/24 08/09/24 documented as of this encounter
--- OUTSIDE RECORDS SUMMARY | 2024-08-13 05:38 | XMS_ITS | Patient Health Summary ---
Author Organization [facility] Address [address] [place] [address] Care Team Providers Care Cadd Instructor Name Role Phone Joesph Jacobo MD Primary Care Provider [phone] Note from [facility],non-owned Affiliates and Associated Physician Practices is amultiple site organization consisting of ambulatory clinics and hospital sitesin [place], [place], [place] and [place]. This disclosure is being madepursuant to the Care Everywhere program and may not contain all information available regarding this patient. Last updated 18.[facility] Allergies No known active allergies Medications * Be aware that medications may not be up to date on this document. Alwaysverify current medications with the patient. * insulin lispro (HumaLOG) 100 UNIT/ML vial(Started 04/26/2024) INJECT 90 UNITS UNDER THE SKIN DAILY VIA CONTINUOUS INFUSION DEVICE 2 refills by 04/26/2025 * Continuous Glucose Sensor (Dexcom G6 Sensor) MISC(Started 05/02/2024) USE DIRECTED TO MONITOR GLUCOSE; CHANGE EVERY 10 DAYS 11 refills by 05/02/2025 * levothyroxine (Synthroid) 100 MCG tablet(Started 07/18/2024) Take 1 (one) tablet by mouth once daily * Continuous Glucose Transmitter (Dexcom G6 Transmitter) MISC(Started 07/24/2024) Use 1 Each Every 90 days 3 refills by 07/24/2025 * Insulin Disposable Pump (Omnipod 5 [id number] Pods Gen 5) MISC(Started 03/13/2024) USE AND CHANGE EVERY 48 HOURS Ended Medications* amphetamine-dextroamphetamine (Adderall) 20 MG tablet(Started 07/20/2023)(Discontinued) Take 1 (one) tablet by mouth 2 times daily * Continuous Glucose Transmitter (Dexcom G6 Transmitter) MISC(Started 03/14/2024) (Discontinued) Active Problems Problem Noted Date Diagnosed Date [...] Comments Blood Pressure 120/82 06/10/2024 10:51 AM INTERIOR DECORATOR Pulse 111 06/10/2024 10:51 AM INTERIOR DECORATOR Temperature 36.6 ??C (97.9 ??F) 06/10/2024 10:[address] Respiratory Rate 18 06/10/2024 10:51 AM INTERIOR DECORATOR Oxygen Saturation 100% 06/10/2024 10:51 AM INTERIOR DECORATOR Inhaled Oxygen Concentration - - Weight 54.4 kg (120 lb) 06/09/2024 5:29 PM INTERIOR DECORATOR Height 160 cm (5' 3 ) 06/09/2024 5:29 PM INTERIOR DECORATOR Body Mass Index 21.26 06/09/2024 5:29 PM INTERIOR DECORATOR Procedures * FUNDUS PHOTO BOTH EYES(Performed 08/10/2024) Performed for Optic disc edema * OPTIC NERVE ANALYSIS OCT(Performed 08/10/2024) Performed for Optic disc edema * LUIS AUTO VISUAL FIELD EXTENDED(Performed 08/10/2024) Performed for Optic disc edema * GLUCOSE - POINT OF CARE(Performed 06/10/2024) * BASIC METABOLIC PANEL (CALCIUM TOTAL)(Performed 06/10/2024) * ANGIOTENSIN CONVERTING ENZYME BLOOD(Performed 06/10/2024) * SUSHANT BLOOD SCREEN W/REFLEX TITER(Performed 06/10/2024) * SYPHILIS ANTIBODY CASCADING REFLEX(Performed 06/10/2024) * BARTONELLA MONTANO ANTIBODY IGM(Performed 06/10/2024) * MYELIN BASIC PROTEIN CSF(Performed 06/10/2024) * PROTEIN ELECTROPHORESIS CSF PANEL(Performed 06/10/2024) * ANGIOTENSIN CONVERTING ENZYME CSF(Performed 06/10/2024) * VDRL CSF W REFLEX TO TITER(Performed 06/10/2024) * CELL COUNT W DIFFERENTIAL CSF(Performed 06/10/2024) * PROTEIN CSF(Performed 06/10/2024) * GLUCOSE CSF(Performed 06/10/2024) * CULTURE CSF+GRAM STAIN(Performed 06/10/2024) * ED LUMBAR PUNCTURE(Performed 06/10/2024) Performed for Vision loss of left eye * MRI ANGIO BRAIN ARTERIAL WO CONT(Performed 06/09/2024) Performed for Vision loss of left eye * MRI ORBITS OR FACE WWO CONTRAST(Performed 06/09/2024) Performed for Vision loss of left eye * MRI ANGIO BRAIN VENOUS WWO CONT(Performed 06/09/2024) Performed for Vision loss of left eye * MRI BRAIN WWO CONTRAST(Performed 06/09/2024) Performed for Vision loss of left eye * XR CHEST 2VW(Performed 06/09/2024) Performed for Vision loss of left eye * HCG BETA BLOOD QUANTITATIVE(Performed 06/09/2024) * LYME DISEASE TOTAL AB W RFLX IMMUNOASSAY(Performed 06/09/2024) * HIV-1 HIV-2 ANTIBODY + HIV P24 AG PANEL(Performed 06/09/2024) * QUANTIFERON-TB GOLD PLUS 4-TUBE(Performed 06/09/2024) * C-REACTIVE PROTEIN(Performed 06/09/2024) * ERYTHROCYTE SEDIMENTATION RATE(Performed 06/09/2024) * COMPREHENSIVE METABOLIC PANEL(Performed 06/09/2024) * CBC W AUTO DIFFERENTIAL(Performed 06/09/2024) * ANTERIOR IMMERSION UNI/BI(Performed 06/09/2024) 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 * FUNDUS PHOTO BOTH EYES(Performed 06/09/2024) Performed for Optic disc edema * LUIS AUTO VISUAL FIELD EXTENDED(Performed 06/09/2024) Performed for Optic disc edema * RETINAL ANALYSIS OCT(Performed 06/09/2024) Performed for Optic disc edema * EYE EXAM(Performed 06/01/2024) * HEMOGLOBIN A1C - POINT OF CARE (AMB) SLU(Performed 03/29/2024) 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 Sandeep Hernandez MD OPHTHALMOLOGY SCHED ORD W PACS * OPTIC NERVE ANALYSIS OCT (08/10/2024 10:05 AM INTERIOR DECORATOR) Anatomical Region Laterality Modality Head External-Camera Photography Narrative 08/10/2024 2:52 PM INTERIOR DECORATOR Images from the original result were not included. Sandeep Hernandez MD OPHTHALMOLOGY SCHED ORD W PACS * LUIS AUTO VISUAL FIELD EXTENDED (08/10/2024 10:05 AM INTERIOR DECORATOR) Anatomical Region Laterality Modality Head External-Camera Photography Narrative 08/10/2024 2:52 PM INTERIOR DECORATOR Images from the original result were not included. Sandeep Hernandez MD OPHTHALMOLOGY SCHED ORD W PACS * (ABNORMAL) GLUCOSE - POINT OF CARE (06/10/2024 11:24 AM INTERIOR DECORATOR) Glucose WB/POC >500(HH) 70 - 99 mg/dL 06/12/2024 10:59 AM INTERIOR DECORATOR [facility] Specimen Type Cap Fingerstick 2023 10:59 AM INTERIOR DECORATOR [facility] Blood BLOOD SPECIMEN / Unknown 06/10/2024 11:24 AM INTERIOR DECORATOR 06/12/2024 10:59 AM INTERIOR DECORATOR Provider Unknown LAB - POINT OF CARE ORDERABLES [facility] [address] [place] [id number], [facility] [phone] * BARTONELLA MONTANO ANTIBODY IGM (06/10/2024 8:24 AM INTERIOR DECORATOR) Bartonella montano Antibody IgM < 1:16 06/16/2024 9:49 AM INTERIOR DECORATOR [employer] ([facility]) Comment: INTERPRETIVE INFORMATION: Bartonella montano Ab, IgM [...] developed and its performance characteristics determined by [email or web address]. It has not been cleared or approved by the US Food and Drug Administration. This test was performed in a CLIA certified laboratory and is intended for clinical purposes. Performed By: [facility] [employer] [address] [place] [address] Operations General Agent: Yusuf Castro MD, PhD IA Number: [id number] Blood BLOOD SPECIMEN / Unknown Venipuncture / Unknown 06/10/2024 8:24 AM INTERIOR DECORATOR 06/10/2024 8:29 AM INTERIOR DECORATOR Maliha Tilley MD LAB - SEROLOGY ORDER NAUN [facility] [employer] ([facility]) [address] [place] [address] * SYPHILIS ANTIBODY CASCADING REFLEX (06/10/2024 8:24 AM INTERIOR DECORATOR) Treponema pallidum Antibody Non-react stephanie Non-react stephanie 06/10/2024 9:25 AM INTERIOR DECORATOR [facility] Comment: No Laboratory evidence of syphilis infection. ?? Note: ??Circulating antibodies may be low or undetectable in early infection. ??If recent exposure is suspected, re-draw sample in 2-4 weeks and repeat testing. Blood BLOOD SPECIMEN / Unknown Venipuncture / Unknown 06/10/2024 8:24 AM INTERIOR DECORATOR 06/10/2024 8:29 AM INTERIOR DECORATOR Maliha Tilley MD LAB - SEROLOGY ORDER NAUN [facility] [place] [place] [address], [facility] [phone] * SUSHANT BLOOD SCREEN W/REFLEX TITER (06/10/2024 8:24 AM INTERIOR DECORATOR) SUSHANT IgG None Detected None Detected 06/13/2024 8:57 PM INTERIOR DECORATOR [employer] ([facility]) Comment: If suspicion of connective tissue disease is strong and SUSHANT EIA is negative, consider testing for SUSHANT by IFA ([id number]). INTERPRETIVE INFORMATION: Anti-Nuclear Antibodies (SUSHANT), IgG by CHINMAY Antinuclear Antibodies (SUSHANT), IgG by CHINMAY: SUSHANT specimens are screened using enzyme-linked immunosorbent assay (CHINMAY) methodology. All CHINMAY results reported as Detected are further tested by indirect fluorescent assay (IFA) using HEp-2 substrate with an IgG-specific conjugate. The SUSHANT CHINMAY screen is designed to detect antibodies against dsDNA, histones, SS-A (Ro), SS-B (La), Francois, Francois/POWERHOUSE [employer]ORER, Scl-70, Марина-1, centromeric proteins, other antigens extracted from the HEp-2 cell nucleus. SUSHANT CHINMAY assays have been reported to have lower sensitivities than SUSHANT IFA for systemic autoimmune rheumatic diseases (SARD). Negative results do not necessarily rule out SARD. Performed By: [facility] [address] [place] [address] Operations General Agent: Yusuf Castro MD, PhD CLIA Number: [id number] Blood BLOOD SPECIMEN / Unknown Venipuncture / Unknown 06/10/2024 8:24 AM INTERIOR DECORATOR 06/10/2024 8:29 AM INTERIOR DECORATOR Elke Mcneill MD LAB - CHEMISTRY ORDE SADA Performing Organization Address City/[facility]/ZIP Co de Phone Number [employer] [facility]) [address] [place] [address] * (ABNORMAL) ANGIOTENSIN CONVERTING ENZYME BLOOD (06/10/2024 8:24 AM INTERIOR DECORATOR) Pathologist [facility] Angiotensin-Conve rting Enzyme 90(H) 16 - 85 U/L 06/13/2024 7:12 PM INTERIOR DECORATOR [facility]) Comment: Performed By: [facility] [employer] [address] [id number] Operations General Agent: Yusuf Castro MD, PhD CLIA Number: [id number] Blood BLOOD SPECIMEN / Unknown Venipuncture / Unknown 06/10/2024 8:24 AM INTERIOR DECORATOR 06/10/2024 8:29 AM INTERIOR DECORATOR Elke Mcneill MD LAB - CHEMISTRY ORDE SADA [address] * (ABNORMAL) BASIC METABOLIC PANEL (CALCIUM TOTAL) (06/10/2024 8:24 AM INTERIOR DECORATOR) [facility] BUN 11 7 - 26 mg/dL 06/10/2024 9:20 AM [facility] Creatinine 0.47(L) 0.56 - 0.96 mg/dL 06/10/2024 9:20 AM [facility] Sodium 131(L) 136 - 145 mmol/L 06/10/2024 9:20 AM [facility] Potassium 4.4 3.5 - 4.5 mmol/L 06/10/2024 9:20 AM [facility] Chloride 92(L) 98 - 107 mmol/L 06/10/2024 9:20 AM [facility] CO2 22 22 - 29 mmol/L 06/10/2024 9:20 AM [facility] Glucose 782(HH) 70 - 99 mg/dL 06/10/2024 9:20 AM [facility] Calcium 8.9 8.4 - 10.2 mg/dL 06/10/2024 9:20 AM [facility] Anion Gap 17(H) 6 - 16 06/10/2024 9:20 AM [facility] BUN/Creatinine Ratio 23 7 - 23 06/10/2024 9:20 AM [facility] Osmolality Calculated 309(H) 275 - 295 mOsm/kg 06/10/2024 9:20 AM INTERIOR DECORATOR [facility] eGFR by CKD-EPI >90 >=90 mL/min/1.7 3 m2 06/10/2024 9:20 AM INTERIOR DECORATOR [facility] Blood BLOOD SPECIMEN / Unknown Venipuncture / Unknown 06/10/2024 8:24 AM INTERIOR DECORATOR 06/10/2024 8:35 AM INTERIOR DECORATOR Tobias Schafer MD LAB - CHEMISTRY VANESSA TOMLIN [facility] [address] [address], [facility] [phone] * VDRL CSF W REFLEX TO TITER (06/10/2024 5:22 AM INTERIOR DECORATOR) VDRL CSF Non Reactive Non Reactive 06/12/2024 3:54 PM INTERIOR DECORATOR [employer] ([facility]) Comment: Because the VDRL was Non Reactive, the VDRL titer was not performed. Performed By: [facility] [address] [place] [address] Operations General Agent: Yusuf Castro MD, PhD CLIA Number: [id number] Cerebral spinal fluid CEREBROSPINAL FLUID SPECIMEN / Unknown Collection / Unknown 06/10/2024 5:22 AM INTERIOR DECORATOR 06/10/2024 5:39 AM INTERIOR DECORATOR Elke Mcneill MD LAB - BODY FLUID ORD ÁNGELA Performing Organization Address [facility] Co de Phone Number [facility]) [address] * CULTURE CSF+GRAM STAIN (06/10/2024 5:22 AM INTERIOR DECORATOR) Culture No growth REYNA 06/17/2024 5:20 AM INTERIOR DECORATOR [facility] Gram Stain No organisms seen 024 5:20 AM INTERIOR DECORATOR [facility] Gram Stain No polymorphonuclear cells 06/17/2024 5:20 AM INTERIOR DECORATOR [facility] Cerebral spinal fluid CEREBROSPINAL FLUID SPECIMEN / Unknown Collection / Unknown 06/10/2024 5:22 AM INTERIOR DECORATOR 06/10/2024 5:39 AM INTERIOR DECORATOR Elke Mcneill MD LAB - MICROBIOLOGY O RDERABLES [facility] [address] [place] [address], [facility] [phone] * ANGIOTENSIN CONVERTING ENZYME CSF (06/10/2024 5:22 AM INTERIOR DECORATOR) Angiotensin-Convert ing Enzyme CSF 2.5 0.0 - 2.5 U/L 06/15/2024 12:12 AM INTERIOR DECORATOR [facility] ([facility]) Comment: This test was developed and its performance characteristics determined by [facility]. It has not been cleared or approved by the US Food and Drug Administration. This test was performed in a CLIA certified laboratory and is intended for clinical purposes. Performed By: [facility] [address] [place] [address] Operations General Agent: Yusuf Castro MD, PhD CLIA Number: [id number] Cerebral spinal fluid CEREBROSPINAL FLUID SPECIMEN / Unknown Collection / Unknown 06/10/2024 5:22 AM INTERIOR DECORATOR 06/10/2024 5:39 AM INTERIOR DECORATOR Elke Mcneill MD LAB - BODY FLUID ORD ERABLES Performing Organization Address [facility]/RUST de Phone Number [facility] ([facility]) [address] [place] [address] * MYELIN BASIC PROTEIN CSF (06/10/2024 5:22 AM INTERIOR DECORATOR) Myelin Basic Protein 2.15 0.00 - 5.50 ng/mL 06/14/2024 9:42 AM INTERIOR DECORATOR [facility] ([facility]) Comment: INTERPRETIVE INFORMATION: ??Myelin Basic Protein This test was developed and its performance characteristics determined by [employer]. It has not been cleared or approved by the US Food and Drug Administration. This test was performed in a CLIA certified laboratory and is intended for clinical purposes. Performed By: [facility] [address] [place] [address] Operations General Agent: Yusuf Castro MD, PhD CLIA Number: [id number] Cerebral spinal fluid CEREBROSPINAL FLUID SPECIMEN / Unknown Collection / Unknown 06/10/2024 5:22 AM INTERIOR DECORATOR 06/10/2024 5:39 AM INTERIOR DECORATOR Elke Mcneill MD LAB - BODY FLUID ORD ERABLES [facility]) [address] [place], [place] [id number] [place] [address] * (ABNORMAL) CELL COUNT W DIFFERENTIAL CSF (06/10/2024 5:22 AM INTERIOR DECORATOR) Tube Number TUBE 2 06/10/2024 5:51 AM INTERIOR DECORATOR [facility] Xanthochromia ABSENT ABSENT 06/10/2024 5:51 AM INTERIOR DECORATOR [facility] CSF Appearance CLEAR 06/10/2024 5:51 AM INTERIOR DECORATOR [facility] CSF Color COLORLESS 06/10/2024 5:51 AM [facility] Total Nucleated Cells CSF 2 <=5 x10E6/L 06/10/2024 5:51 AM [facility] RBC Count CSF 18(H) <1 x10E6/L 06/10/2024 5:51 AM [facility] Cerebral spinal fluid CEREBROSPINAL FLUID SPECIMEN / Unknown Collection / Unknown 06/10/2024 5:22 AM INTERIOR DECORATOR 06/10/2024 5:39 AM INTERIOR DECORATOR Narrative [facility] - 06/10/2024 5:51 AM INTERIOR DECORATOR No differential performed per procedure Elke Mcneill MD LAB - BODY FLUID ORD [facility] [address] [address] [phone] * (ABNORMAL) PROTEIN CSF (06/10/2024 5:22 AM INTERIOR DECORATOR) Protein CSF 54(H) 15 - 45 mg/dL 06/10/2024 6:15 AM INTERIOR DECORATOR [facility] Cerebral spinal fluid CEREBROSPINAL FLUID SPECIMEN / Unknown Collection / Unknown 06/10/2024 5:22 AM INTERIOR DECORATOR 06/10/2024 5:39 AM INTERIOR DECORATOR Elke Mcneill MD LAB - BODY FLUID ORD ERABLES [facility] [address] [place] [address], [place] [phone] * (ABNORMAL) GLUCOSE CSF (06/10/2024 5:22 AM INTERIOR DECORATOR) Glucose CSF 294(H) 40 - 70 mg/dL 06/10/2024 6:15 AM INTERIOR DECORATOR [facility] Cerebral spinal fluid CEREBROSPINAL FLUID SPECIMEN / Unknown Collection / Unknown 06/10/2024 5:22 AM INTERIOR DECORATOR 06/10/2024 5:39 AM INTERIOR DECORATOR Elke Mcneill MD LAB - BODY FLUID ORD ERABLES [facility] [address] [place] [address], [place] [phone] * (ABNORMAL) PROTEIN ELECTROPHORESIS CSF PANEL (06/10/2024 5:22 AM INTERIOR DECORATOR) Protein CSF 48.6(H) 15.0 - 45.0 mg/dL 06/12/2024 5:17 PM INTERIOR DECORATOR [facility]) Prealbumin CSF 1.9 0.0 - 3.1 mg/dL 06/12/2024 5:17 PM INTERIOR DECORATOR [facility]) Albumin CSF 25.8 8.4 - 34.2 mg/dL 06/12/2024 5:17 PM INTERIOR DECORATOR [facility]) Alpha-1 Globulin CSF 1.7 0.0 - 3.1 mg/dL 06/12/2024 5:17 PM INTERIOR DECORATOR [facility]) Hdlth-1-Nfdblwbb CSF 5.8(H) 0.0 - 5.4 mg/dL 06/12/2024 5:17 PM INTERIOR DECORATOR [facility]) Beta-Globulin CSF 9.2(H) 0.0 - 8.1 mg/dL 06/12/2024 5:17 PM INTERIOR DECORATOR [facility]) Gamma Globulin CSF 4.2 0.0 - 5.4 mg/dL 06/12/2024 5:17 PM INTERIOR DECORATOR [facility]) Comment: Performed By: [facility] [address] [place] [address] Operations General Agent: Yusuf Castro MD, PhD CLIA Number: [id number] Cerebral spinal fluid CEREBROSPINAL FLUID SPECIMEN / Unknown Collection / Unknown 06/10/2024 5:22 AM INTERIOR DECORATOR 06/10/2024 5:39 AM INTERIOR DECORATOR Elke Mcneill MD LAB - BODY FLUID ORD ERABLES [employer] ([facility]) [address] [place] [address], [facility] * Lumbar Puncture (06/10/2024 4:22 AM INTERIOR DECORATOR) Narrative Elke Mcneill MD - 06/10/2024 4:22 AM INTERIOR DECORATOR Mann Saez, DO ? 06/15/2024 12:03 PM Lumbar Puncture Date/Time: 06/10/2024 4:22 AM Performed by: Mann Saez DO Authorized by: Elke Mcneill MD ?? Consent: ??Consent obtained: ??Written and verbal ??Consent given by: ??Patient ??Risks, benefits, and alternatives were discussed: yes ?Risks discussed: ??Headache, bleeding, infection, nerve damage, repeat procedure and pain ??Alternatives discussed: ??Alternative treatment, no treatment, delayed treatment and observation Gibson protocol: ??Procedure explained and questions answered to [...] Brain Arterial Wo Cont (06/09/2024 11:16 PM INTERIOR DECORATOR) Anatomical Region Laterality Modality Head Magnetic Resonan ce 06/10/2024 1:00 AM INTERIOR DECORATOR Impressions 06/10/2024 10:52 AM INTERIOR DECORATOR IMPRESSION: 1.No evidence of acute intracranial findings [...] 06/10/2024 10:52 AM Narrative 06/10/2024 10:52 AM INTERIOR DECORATOR PROCEDURE: ??MRI BRAIN WWO CONTRAST, MRI ANGIO BRAIN ARTERIAL WO CONT, MRI ORBITS OR FACE WWO CONTRAST, MRI ANGIO BRAIN VENOUS WWO CONT, DATE/TIME OF EXAM: ??06/09/2024 11:15 PM, LOCATION ??[facility] INDICATION: H54.62: Vision loss of left eye ADDITIONAL CLINICAL INFORMATION: Ordering Provider Reason For Exam: ??r/o mass/IIH (accession [id number]), vision loss (accession [id number]), vision loss (accession [id number]), vision loss (accession [id number]) Technologist Note: ??Does the patient have a [...] week. Was sent to retinal specialist by drier feeder for preoperative ophthalmic evaluation prior to left [...] CONT, DATE/TIMEOF EXAM: 06/09/2024 11:15 PM, LOCATION [facility] INDICATION: H54.62: Vision loss of left eye ADDITIONAL CLINICAL INFORMATION: Ordering Provider Reason For Exam: r/o mass/IIH (accession [id number]), vision loss (accession [id number]), vision loss (accession [id number]), vision loss (accession [id number]) Technologist Note: Does the patient have a [...] week. Was sent to retinal specialist by drier feeder for preoperative ophthalmic evaluation prior to left [...] or Face Wwo Contrast (06/09/2024 11:16 PM INTERIOR DECORATOR) Anatomical Region Laterality Modality Head Magnetic Resonan ce 06/10/2024 1:00 AM INTERIOR DECORATOR Impressions 06/10/2024 10:52 AM INTERIOR DECORATOR IMPRESSION: 1.No evidence of acute intracranial findings [...] 06/10/2024 10:52 AM Narrative 06/10/2024 10:52 AM INTERIOR DECORATOR PROCEDURE: ??MRI BRAIN WWO CONTRAST, MRI ANGIO BRAIN ARTERIAL WO CONT, MRI ORBITS OR FACE WWO CONTRAST, MRI ANGIO BRAIN VENOUS WWO CONT, DATE/TIME OF EXAM: ??06/09/2024 11:15 PM, LOCATION ??[facility] INDICATION: H54.62: Vision loss of left eye ADDITIONAL CLINICAL INFORMATION: Ordering Provider Reason For Exam: ??r/o mass/IIH (accession [id number]), vision loss (accession [id number]), vision loss (accession [id number]), vision loss (accession [id number]) Technologist Note: ??Does the patient have a [...] week. Was sent to retinal specialist by drier feeder for preoperative ophthalmic evaluation prior to left [...] CONT, DATE/TIMEOF EXAM: 06/09/2024 11:15 PM, LOCATION [facility] INDICATION: H54.62: Vision loss of left eye ADDITIONAL CLINICAL INFORMATION: Ordering Provider Reason For Exam: r/o mass/IIH (accession [id number]), vision loss (accession [id number]), vision loss (accession [id number]), vision loss (accession [id number]) Technologist Note: Does the patient have a [...] week. Was sent to retinal specialist by drier feeder for preoperative ophthalmic evaluation prior to left [...] Brain Venous Wwo Cont (06/09/2024 11:16 PM INTERIOR DECORATOR) Anatomical Region Laterality Modality Head Magnetic Resonan ce 06/10/2024 1:00 AM INTERIOR DECORATOR Impressions 06/10/2024 10:52 AM INTERIOR DECORATOR IMPRESSION: 1.No evidence of acute intracranial findings [...] 06/10/2024 10:52 AM Narrative 06/10/2024 10:52 AM INTERIOR DECORATOR PROCEDURE: ??MRI BRAIN WWO CONTRAST, MRI ANGIO BRAIN ARTERIAL WO CONT, MRI ORBITS OR FACE WWO CONTRAST, MRI ANGIO BRAIN VENOUS WWO CONT, DATE/TIME OF EXAM: ??06/09/2024 11:15 PM, LOCATION ??[facility] INDICATION: H54.62: Vision loss of left eye ADDITIONAL CLINICAL INFORMATION: Ordering Provider Reason For Exam: ??r/o mass/IIH (accession [id number]), vision loss (accession [id number]), vision loss (accession [id number]), vision loss (accession [id number]) Technologist Note: ??Does the patient have a [...] week. Was sent to retinal specialist by drier feeder for preoperative ophthalmic evaluation prior to left [...] CONT, DATE/TIMEOF EXAM: 06/09/2024 11:15 PM, LOCATION [facility] INDICATION: H54.62: Vision loss of left eye ADDITIONAL CLINICAL INFORMATION: Ordering Provider Reason For Exam: r/o mass/IIH (accession [id number]), vision loss (accession [id number]), vision loss (accession [id number]), vision loss (accession [id number]) Technologist Note: Does the patient have a [...] week. Was sent to retinal specialist by drier feeder for preoperative ophthalmic evaluation prior to left [...] MRI Brain Wwo Contrast (06/09/2024 11:15 PM INTERIOR DECORATOR) Anatomical Region Laterality Modality Head Magnetic Resonan ce 06/10/2024 1:00 AM INTERIOR DECORATOR Impressions 06/10/2024 10:52 AM INTERIOR DECORATOR IMPRESSION: 1.No evidence of acute intracranial findings [...] 06/10/2024 10:52 AM Narrative 06/10/2024 10:52 AM INTERIOR DECORATOR PROCEDURE: ??MRI BRAIN WWO CONTRAST, MRI ANGIO BRAIN ARTERIAL WO CONT, MRI ORBITS OR FACE WWO CONTRAST, MRI ANGIO BRAIN VENOUS WWO CONT, DATE/TIME OF EXAM: ??06/09/2024 11:15 PM, LOCATION ??[facility] INDICATION: H54.62: Vision loss of left eye ADDITIONAL CLINICAL INFORMATION: Ordering Provider Reason For Exam: ??r/o mass/IIH (accession [id number]), vision loss (accession [id number]), vision loss (accession [id number]), vision loss (accession [id number]) Technologist Note: ??Does the patient have a [...] week. Was sent to retinal specialist by drier feeder for preoperative ophthalmic evaluation prior to left [...] CONT, DATE/TIMEOF EXAM: 06/09/2024 11:15 PM, LOCATION [facility] INDICATION: H54.62: Vision loss of left eye ADDITIONAL CLINICAL INFORMATION: Ordering Provider Reason For Exam: r/o mass/IIH (accession [id number]), vision loss (accession [id number]), vision loss (accession [id number]), vision loss (accession [id number]) Technologist Note: Does the patient have a [...] week. Was sent to retinal specialist by drier feeder for preoperative ophthalmic evaluation prior to left [...] * XR Chest 2Vw (06/09/2024 7:34 PM INTERIOR DECORATOR) Anatomical Region Laterality Modality Chest Digital Radiogra phy 06/09/2024 7:46 PM INTERIOR DECORATOR Narrative 06/10/2024 8:29 AM INTERIOR DECORATOR PROCEDURE: ??XR CHEST 2VW, DATE/TIME OF EXAM: ??06/09/2024 7:34 PM, LOCATION [facility] INDICATION: H54.62: Vision loss of left eye [...] intact. Report dictated by Moon Reid MD (vice president of talent management). Randy Freeman MD have personally reviewed and interpreted this examination/study. > Interpreting Provider: Randy Pagan MD on 06/10/2024 8:29 AM Procedure Note Randy Pagan MD - 06/10/2024 PROCEDURE: XR CHEST 2VW, DATE/TIME OF EXAM: 06/09/2024 7:34 PM, LOCATION [facility] INDICATION: H54.62: Vision loss of left eye [...] isintact. Report dictated by Moon Reid MD (vice president of talent management). Randy Freeman MD have personally reviewed and interpreted this examination/study. > Interpreting Provider: Randy Pagan MD on 06/10/2024 8:29 AM Maliha Tilley MD DIAGNOSTIC IMAGING O RDERABLES * LYME DISEASE TOTAL AB W RFLX IMMUNOASSAY (06/09/2024 7:13 PM INTERIOR DECORATOR) Pathologist [facility] Lyme Antibody Total Negative Negative 06/11/2024 10:07 AM [facility] ([facility]) Comment: Lyme antibodies not detected. Reflex testing [...] Unknown Venipuncture / Unknown 06/09/2024 7:13 PM INTERIOR DECORATOR 06/09/2024 7:20 PM INTERIOR DECORATOR Narrative [facility] ([facility]) - 06/11/2024 10:07 AM INTERIOR DECORATOR Performed at: ??01 - [facility] [address], [place] ??[id number] Branch Associate: Toni Johnston PhD, Phone: ??[phone] Maliha Tilley MD LAB - CHEMISTRY VANESSA TOMLIN [facility]) [address] [place] [address] * QUANTIFERON-TB GOLD PLUS 4-TUBE (06/09/2024 7:13 PM INTERIOR DECORATOR) [facility] QuantiFERON Mitogen Minus NIL 9.95 IU/mL 06/12/2024 6:18 AM INTERIOR DECORATOR [facility]) QuantiFERON Nil Value 0.05 IU/mL 06/12/2024 6:18 AM INTERIOR DECORATOR [facility]) QuantiFERON Plus TB1 Minus NIL 0.00 <=0.34 IU/mL 06/12/2024 6:18 AM INTERIOR DECORATOR [facility]) QuantiFERON Plus TB2 Minus NIL 0.00 <=0.34 IU/mL 06/12/2024 6:18 AM INTERIOR DECORATOR [facility] ([facility]) QuantiFERON-TB Gold Plus Negative Negative 06/12/2024 6:18 AM INTERIOR DECORATOR [facility] ([facility]) Comment: INTERPRETIVE INFORMATION:Quantiferon TB Gold Plus Interferon [...] Mycobacterium tuberculosis Infection -- [place], 2010 (http://www.cdc.gov/mmwr/preview/mmwrhtml/mw4946x0.htm), for more information concerning test performance in low-prevalence populations and use in occupational screening. Performed By: [facility] [address] [place] [address] Operations General Agent: Yusuf Castro MD, PhD CLIA Number: [id number] Blood BLOOD SPECIMEN / Unknown Venipuncture / Unknown 06/09/2024 7:13 PM INTERIOR DECORATOR 06/09/2024 7:24 PM INTERIOR DECORATOR Maliha Tilley MD LAB - CHEMISTRY VANESSA TOMLIN [facility] ([facility]) [address] [place] [address], [facility] * HIV-1 HIV-2 ANTIBODY + HIV P24 AG PANEL (06/09/2024 7:13 PM INTERIOR DECORATOR) HIV Antigen/Antibod y 1 & 2 Non-reacti ve Non-react stephanie 06/09/2024 8:03 PM INTERIOR DECORATOR [facility] Comment:No Laboratory eviden ce of HIV infection. Blood BLOOD SPECIMEN / Unknown Venipuncture / Unknown 06/09/2024 7:13 PM INTERIOR DECORATOR 06/09/2024 7:20 PM INTERIOR DECORATOR Maliha Tilley MD LAB - CHEMISTRY VANESSA [facility]OMLIN Performing Organization Address City/[facility]/ZIP Co de Phone Number [address] [address], [facility] [phone] * C-REACTIVE PROTEIN (06/09/2024 7:13 PM INTERIOR DECORATOR) Pathologist [facility] C-Reactive Protein <0.5 <=0.5 mg/dL 06/09/2024 7:57 PM INTERIOR DECORATOR [facility] Blood BLOOD SPECIMEN / Unknown Venipuncture / Unknown 06/09/2024 7:13 PM INTERIOR DECORATOR 06/09/2024 7:24 PM INTERIOR DECORATOR Maliha Tilley MD LAB - CHEMISTRY VANESSA TOMLIN Performing Organization Address [facility] Co de Phone Number [address] [address], [facility] [phone] * (ABNORMAL) ERYTHROCYTE SEDIMENTATION RATE (06/09/2024 7:13 PM INTERIOR DECORATOR) Pathologist [facility] Erythrocyte Sedimentation Rate Westergren 32(H) 0 - 20 MM/HR 06/09/2024 8:25 PM INTERIOR DECORATOR [facility] Blood BLOOD SPECIMEN / Unknown Venipuncture / Unknown 06/09/2024 7:13 PM INTERIOR DECORATOR 06/09/2024 7:24 PM INTERIOR DECORATOR Maliha Tilley MD LAB - HEMATOLOGY TASHA MOTTA [address] [address], [facility] [phone] * CBC W AUTO DIFFERENTIAL (06/09/2024 7:13 PM INTERIOR DECORATOR) Pathologist [facility] WBC 6.6 4.0 - 10.7 x10E9/L 06/09/2024 7:29 PM INTERIOR DECORATOR [facility] RBC Count 4.91 3.90 - 5.20 x10E12/L 06/09/2024 7:29 PM INTERIOR DECORATOR [facility] Hemoglobin 13.7 11.9 - 15.8 g/dL 06/09/2024 7:29 PM [facility] Hematocrit 39.6 34.8 - 46.1 % 06/09/2024 7:29 PM [facility] MCV 80.7 80.0 - 98.0 fL 06/09/2024 7:29 PM [facility] MCH 27.9 26.7 - 33.6 pg 06/09/2024 7:29 PM [facility] MCHC 34.6 31.7 - 36.3 g/dL 06/09/2024 7:29 PM [facility] RDW-CV 14.3 11.3 - 14.8 % 06/09/2024 7:29 PM [facility] Platelet Count 385 150 - 420 x10E9/L 06/09/2024 7:29 PM [facility] MPV 9.8 7.8 - 11.4 fL 06/09/2024 7:29 PM [facility] Neutrophil % 61.7 41.0 - 74.0 % 06/09/2024 7:29 PM [facility] Lymphocyte % 27.1 17.0 - 47.0 % 06/09/2024 7:29 PM [facility] Monocyte % 6.2 3.0 - 11.0 % 06/09/2024 7:29 PM [facility] Eosinophil % 3.7 0.0 - 7.0 % 06/09/2024 7:29 PM [facility] Basophil % 0.8 0.0 - 1.6 % 06/09/2024 7:29 PM [facility] Immature Granulocytes % 0.5 0.0 - 1.0 % 06/09/2024 7:29 PM [facility] Neutrophil Absolute 4.06 1.60 - 7.50 x10E9/L 06/09/2024 7:29 PM [facility] Lymphocyte Absolute 1.78 1.00 - 4.40 x10E9/L 06/09/2024 7:29 PM [facility] Monocyte Absolute 0.41 0.15 - 1.00 x10E9/L 06/09/2024 7:29 PM [facility] Eosinophil Absolute 0.24 0.00 - 0.60 x10E9/L 06/09/2024 7:29 PM [facility] Basophil Absolute 0.05 0.00 - 0.13 x10E9/L 06/09/2024 7:29 PM [facility] Blood BLOOD SPECIMEN / Unknown Venipuncture / Unknown 06/09/2024 7:13 PM INTERIOR DECORATOR 06/09/2024 7:24 PM INTERIOR DECORATOR Maliha Tilley MD LAB - HEMATOLOGY ORD ERABLES [facility] [address] [place] [address], [facility] [phone] * (ABNORMAL) COMPREHENSIVE METABOLIC PANEL (06/09/2024 7:13 PM INTERIOR DECORATOR) BUN 13 7 - 26 mg/dL 06/09/2024 7:58 PM [facility] Creatinine 0.49(L) 0.56 - 0.96 mg/dL 06/09/2024 7:58 PM [facility] Sodium 137 136 - 145 mmol/L 06/09/2024 7:58 PM [facility] Potassium 3.7 3.5 - 4.5 mmol/L 06/09/2024 7:58 PM [facility] Chloride 102 98 - 107 mmol/L 06/09/2024 7:58 PM [facility] CO2 20(L) 22 - 29 mmol/L 06/09/2024 7:58 PM [facility] Glucose 504(H) 70 - 99 mg/dL 06/09/2024 7:58 PM [facility] Calcium 8.2(L) 8.4 - 10.2 mg/dL 06/09/2024 7:58 PM [facility] Protein Total 7.0 6.0 - 8.3 g/dL 06/09/2024 7:58 PM [facility] Albumin 3.3(L) 3.4 - 5.0 g/dL 06/09/2024 7:58 PM [facility] Bilirubin Total 0.2 0.2 - 1.2 mg/dL 06/09/2024 7:58 PM [facility] Alkaline Phosphatase 131 40 - 150 U/L 06/09/2024 7:58 PM [facility] ALT 9 5 - 55 U/L 06/09/2024 7:58 PM [facility] AST 18 5 - 34 U/L 06/09/2024 7:58 PM [facility] Anion Gap 15 6 - 16 06/09/2024 7:58 PM [facility] BUN/Creatinine Ratio 27(H) 7 - 23 06/09/2024 7:58 PM [facility] Osmolality Calculated 307(H) 275 - 295 mOsm/kg 06/09/2024 7:58 PM [facility] Albumin/Globulin Ratio 0.9(L) 1.1 - 2.3 06/09/2024 7:58 PM [facility] eGFR by CKD-EPI >90 >=90 mL/min/1.7 3 m2 06/09/2024 7:58 PM [facility] Blood BLOOD SPECIMEN / Unknown Venipuncture / Unknown 06/09/2024 7:13 PM INTERIOR DECORATOR 06/09/2024 7:24 PM [facility] Maliha Tilley MD LAB - CHEMISTRY V[facility]SA [facility] Organization Address City/State/ZIP Co de Phone Number [facility] [address] [place] [phone], [facility] [phone] * HCG BETA BLOOD QUANTITATIVE (06/09/2024 7:13 PM INTERIOR DECORATOR) Beta-hCG Total Quantitative <3 mIU/mL 06/09/2024 7:57 PM [facility] Comment: HCG Numeric Result Interpretation: ? [...] Unknown Venipuncture / Unknown 06/09/2024 7:13 PM INTERIOR DECORATOR 06/09/2024 7:24 PM INTERIOR DECORATOR Maliha Tilley MD LAB - CHEMISTRY VANESSA TOMLIN [facility] Organization Address City/State/ZIP Co de Phone Number [place] [address] [place] [address], [facility] [phone] * B-Scan Anterior Immersion (06/09/2024 11:41 AM INTERIOR DECORATOR) Anatomical Region Laterality Modality Head External-Camera Photography Narrative 06/09/2024 4:44 PM INTERIOR DECORATOR Images from the original result were not included. B scan OD without RD or vitreous opacity Sandeep Hernandez MD OPHTHALMOLOGY SCHED ORD W PACS * FUNDUS PHOTO BOTH EYES (06/09/2024 11:41 AM INTERIOR DECORATOR) Anatomical Region Laterality Modality Head External-Camera Photography Narrative 06/09/2024 4:44 PM INTERIOR DECORATOR Images from the original result were not included. Fundus photos OS with disc edema and yamini's lines Sandeep Hernandez MD OPHTHALMOLOGY SCHED ORD W PACS * LUIS AUTO VISUAL FIELD EXTENDED (06/09/2024 9:31 AM INTERIOR DECORATOR) Anatomical Region Laterality Modality Head External-Camera Photography Narrative 06/09/2024 4:44 PM INTERIOR DECORATOR Images from the original result were not included. Sandeep Hernandez MD OPHTHALMOLOGY SCHED ORD W PACS * RETINAL ANALYSIS OCT (06/09/2024 9:31 AM INTERIOR DECORATOR) Anatomical Region Laterality Modality Head External-Camera Photography Sandeep Hernandez MD OPHTHALMOLOGY SCHED ORD W PACS * EYE EXAM (06/01/2024) Anatomical Region Laterality Modality Other Narrative 06/01/2024 Ordered by an unspecified provider. Scanned Document SCANNING ONLY * HEMOGLOBIN A1C - POINT OF CARE (AMB) U (03/29/2024 2:44 PM CDT) Hemoglobin A1c POCT 15 % [address] Blood BLOOD SPECIMEN / Unknown 03/29/2024 2:44 PM CDT Elder Garza MD LAB - POINT OF CARE ORDERABLES Performing Organization Address City/State/[facility] Co de Phone Number [address] [place] [address] [phone] Care Teams Cadd Instructor Relationship Specialty Start Date End Date Joesph Jacobo MD [address] [place] [phone] PCP - General Internal Medicine 08/10/24
--- OUTSIDE RECORDS SUMMARY | 2024-08-13 05:38 | XMS_ITS | Encounter Summary ---
Author Organization [facility] Address [address] [place] [address] Care Team Providers Care Crabber Name Role Phone Adair Finn APRN-[employer] Primary Care P rojadielder Encounter Details Date Type Department Care Team (Latest Contact Info) Description 06/10/2024 Travel Social History Tobacco Use Types Packs/Day Years Used Date Smoking Tobacco: Unknown Sex and Gender Information Value Date Recorded Sex Assigned at Not on file Gender Identity Not on file Sexual Orientation Not on file documented as of this encounter Plan of Treatment Upcoming Encounters Date Type Department Care Team (Late st Contact Info) Description 08/23/2024 10:15 AM DIE CUTTER APPRENTICE Office Visit [facility] - Ophthalmology [address] [place] [phone] Sandeep Hernandez MD [address] [place] [address] [place] [address] 09/27/2024 9:45 AM DIE CUTTER APPRENTICE Office Visit [facility] - Ophthalmology [address] [place] [phone] Buddy Fuller MD [address] [place] [address] [place] [address] 10/04/2024 1:00 PM DIE CUTTER APPRENTICE Office Visit [facility] - Endocrinology [address] [place] [phone] Rosalia Hair MD [address] [facility] [place] [phone] 02/07/2025 8:30 AM CDT Office Visit [facility] - Rheumatology [address] [place] [address], [place] [phone] Roni Castañeda MD [address] [facility] [place] [phone] documented as of this encounter Visit Diagnoses Not on filedocumented in this encounter Care Teams Crabber Relationship Specialty Start Date End Date Adair Finn, TRISHA[employer] [address] [place] [address] PCP - General Nurse Practitioner Adult Health 03/29/24 08/09/24 documented as of this encounter
--- OUTSIDE RECORDS SUMMARY | 2024-08-13 05:38 | XMS_ITS | Encounter Summary ---
Author Organization [facility] Address [address] [place] [address] Care Team Providers Care Contact Lens Curve Grinder Name Role Phone Adair Finn APRN-RN TRANSITIONAL Primary Care P rojadielder Reason for Visit * Reason Onset Date Comments Encounter Opened In Error 07/10/2024 Encounter Details Date Type Department Care Team (Late st Contact Info) Description 07/07/2024 Telephone [facility] - Endocrinology [address] [facility] [place] [phone] Rosalia Hair MD [facility] [place] [address] Encounter Opened In Error Social History Tobacco Use Types Packs/Day Years Used Date Smoking Tobacco: Unknown Sex and Gender Information Value Date Recorded Sex Assigned at Not on file Gender Identity Not on file Sexual Orientation Not on file documented as of this encounter Miscellaneous Notes * Telephone Encounter - Carine Khalil RN - 07/10/2024 10:01 AM CST Encounter was opened in error. Please disregard any activity associated with this encounter. Madeleine Reji encounter was opened in error. Please disregard any activity associated with this encounter. PULT AND ARRESTING GEAR OFFICER documented in this encounter Plan of Treatment Upcoming Encounters Date Type Department Care Team (Late st Contact Info) Description 08/23/2024 10:15 AM CATAPULT AND ARRESTING GEAR OFFICER Office Visit [facility] - Ophthalmology [address] [place] [phone] Sandeep Hernandez MD [address] [place] [address] [place] [phone] 09/27/2024 9:45 AM CATAPULT AND ARRESTING GEAR OFFICER Office Visit [facility] - Ophthalmology [address] [place] [phone] Buddy Fuller MD [address] [place] [address] [place] [phone] 10/04/2024 1:00 PM CATAPULT AND ARRESTING GEAR OFFICER Office Visit [facility] - Endocrinology [address] [place] [phone] Rosalia Hair MD [address] [place] [address] [place] [phone] 02/07/2025 8:30 AM CDT Office Visit [facility] - Rheumatology [address] [place] [phone] Roni Castañeda MD [address] [place] [address] [place] [phone] documented as of this encounter Visit Diagnoses Diagnosis ERRONEOUS ENCOUNTER--DISREGARD- Primary documented in this encounter Care Teams Contact Lens Curve Grinder Relationship Specialty Start Date End Date Adair Finn, BIOPHYSICS PROFESSOR-RN TRANSITIONAL [address] [place] [address] PCP - General Nurse Practitioner Adult Health 03/29/24 08/09/24 documented as of this encounter
--- OUTSIDE RECORDS SUMMARY | 2024-08-13 05:38 | XMS_ITS | Encounter Summary ---
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 VSS, A&OX4. Encounter Details Date Type Department Care Team (Late st Contact Info) Description 06/10/2024 3:36 AM REGISTERED NURSE HH CASE MANAGER - 06/10/2024 9:51 AM [facility] Emergency [facility] EMERGENCY DEPARTMENT [address] [place] [phone] Elke Mcneill MD [address] [place] [address] OF [place] [phone] Vision loss of left eye; Elevated random blood glucose level; Cerebrospinal fluid abnormality Discharge Disposition: Left Against Medical Advice/Discontinued Care Social History Tobacco Use Types Packs/Day Years Used Date Smoking Tobacco: Unknown Sex and Gender Information Value Date Recorded Sex Assigned at Not on file Gender Identity Not on file Sexual Orientation Not on file documented as of this encounter Last Filed Vital Signs Vital Sign Reading Time Taken Comments Blood Pressure 114/77 06/10/2024 6:01 AM REGISTERED NURSE HH CASE MANAGER Pulse 105 06/09/2024 5:29 PM REGISTERED NURSE HH CASE MANAGER Temperature 36.7 ??C (98.1 ??F) 06/09/2024 5:29 PM CS T Respiratory Rate 18 06/09/2024 5:29 PM REGISTERED NURSE HH CASE MANAGER Oxygen Saturation 97% 06/10/2024 6:01 AM REGISTERED NURSE HH CASE MANAGER Inhaled Oxygen Concentration - - Weight 54.4 kg (120 lb) 06/09/2024 5:29 PM REGISTERED NURSE HH CASE MANAGER Height 160 cm (5' 3 ) 06/09/2024 5:29 PM REGISTERED NURSE HH CASE MANAGER Body Mass Index 21.26 06/09/2024 5:29 PM REGISTERED NURSE HH CASE MANAGER documented in this encounter Medications at Time of Discharge Medication Sig Dispensed Refills Start Date End Date Continuous Glucose Sensor (Dexcom G6 Sensor) MISCIndications:Type 2 diabetes mellitus with other specified complication, with long-term current use of insulin (HCC) USE DIRECTED TO MONITOR GLUCOSE; CHANGE EVERY 10 DAYS 9 Each 11 05/02/2024 Insulin Disposable Pump (Omnipod 5 [id number] Pods Gen 5) MISC USE AND CHANGE EVERY 48 HOURS 03/13/2024 insulin lispro (HumaLOG) 100 UNIT/ML vial INJECT 90 UNITS UNDER THE SKIN DAILY VIA CONTINUOUS INFUSION DEVICE 30 mL 2 04/26/2024 amphetamine-dextroamphe tamine (Adderall) 20 MG tablet Take 1 (one) tablet by mouth 2 times daily 07/20/2023 08/10/2024 Continuous Glucose Transmitter (Dexcom G6 Transmitter) MISC 03/14/2024 08/10/2024 documented as of this encounter Progress Notes * Pura Silver RN - 06/10/2024 9:13 AM CST Patient and visitor seen ambulating in [place]ams toward ED exit at approximately 0850. Patient stated I'm going outside to fucking smoke . RN unable to stop patient or visitor. At the time of this note, patient and visitor are still absent from room. STERED NURSE HH CASE MANAGER documented in this encounter ED Notes * Rabia Dave RN - 06/10/2024 9:50 AM CST RN attempted to find patient outside ER, patient not seen. IV still in arm when walking out to smoke despite education of removal. CRN's notified, MD Schafer notified. Patient to AMA. No patient belongings found in room. STERED NURSE HH CASE MANAGER * Rabia Dave, RN - 06/10/2024 8:09 AM CST Upon starting shift previous RN informed this RN that patient's dexcom pump was going to be chargedand patient was refusing hospital insulin and it doesn't work. This RN's first interaction with patient and family patient is verbally aggressive with this RN stating, I need my dexcom so I can lower my blood sugar and get the fuck out of here. Patient reminded her machine was on the product evangelist and she had refused hospital insulin. Patient continues to be verbally aggressive with this RN, get my fucking blood drawn that previous nurse just left this shit everywhere. Patient informed we will get her blood drawn as soon as we can, we can have other sick patient's. Patient responds well I hope it doesn't take as fucking long to get that done as it was to answer my call light. After RN left room patient became screaming and throwing stuff in her room. MD Schafer notified, SERENA notified of patient's behavior. STERED NURSE HH CASE MANAGER * Samia Alonzo RN - 06/10/2024 6:45 AM CST I was at the patient bedside along with MD Saez to draw labs that had been ordered by MD Saez and patient states, What are those labs for? You're not touching me until I know what they're testing for because they miranda 11 tubes of blood on me last night! I began to explain what the labs were for andMD Saez assisted with the explanation to the patient. Pt verbalized understanding regarding the labs. As I was preparing for the lab draw, MD Saez was talking to the patient regarding her BG being elevated and her insulin regimen. Pt began to get angry and agitated at this time and began frantically looking through belongings to locate her personal GM and equipment. Pt began yelling, I have my ownmonitor and every time I come to a hospital, they try and fix my blood sugar. Just leave me alone and don't touch me, I will fix this! All I need is my monitor to be charged! It's in here somewhere! MD Saez attempted to explain to the patient as I witnessed telling her that if her BG was to continue to get higher than we would need to give her insulin here to treat her if she could not gather allof her supplies needed to self-treat. Pt states, No! That amount you want to give me is not enoughand won't even touch me. If I could just get what I need, I can take care of this myself. I need tocharge it up! I attempted to assist the patient and asked her if she could please show me the portattachment so I can see what type of product evangelist I could assist her with from our department. The patient yells at me stating, It's a C-product evangelist and can you just back off! MD Saez intervenes at this timeand sympathetically dismisses me from the patient's room due to her behavior and attempts to de-escalate the patient. I left the room as asked. STERED NURSE HH CASE MANAGER * Tobias Schafer MD - 06/10/2024 6:16 AM CST ASSUMED CARE NOTE Patient signed out to me by Dr. Mcneill at 6:16 AM. Briefly, Madeleine Mendoza is a 39 year old female is being evaluated for vision loss of left eye. At this time the patient's condition is Stable. Pending labs. Plan-Pt left AMA. Vitals: 06/09/24 1729 06/10/24 0601 BP: (!) 163/113 114/77 Pulse: 105 Resp: 18 Temp: 98.1 ??F (36.7 ??C) SpO2: 98% 97% Weight: 54.4 kg (120 lb) Height: 1.6 m (5' 3 ) Clinical Impression: 1. Vision loss of left eye 2. Elevated random blood glucose level 3. Cerebrospinal fluid abnormality Disposition: AMA By signing my name below, Denver Freeman , attest that this documentation has been prepared under the direction and in the presence of Dr. Schafer. Signed: Norma Ewing. Lydia, Dr. Schafer, personally performed the services described in this documentation. All medical record entries made by the scribe were at my direction and in my presence. I have reviewed the chart and agree that the record reflects my personal performance and is accurate and complete. 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 VSS, A&OX4. HPI 39 year old female with pmh of IDDM, OU cataracts (s/p lens surgery on the right) presents to ED for papilledema w/u sent in by ophthalmology. Pt with worsening left vision. States that she has vision at the top of her visual field due to constant glares of light which she has been experiencing forthe past week. Was sent to retinal specialist by cfd engineer for preoperative ophthalmic evaluation prior to left eye lens surgery. Denies headaches, rash, fever, n/v/d. No past medical history on file. No past surgical history on file. No family history on file. Social History Socioeconomic History [...] Resource Strain: Low Risk (04/07/2024) Received from [facility] Overall Financial Resource Strain (CARDIA) How hard is it for you to pay for the very basics like food, housing, medical care, and heating?: Not hard at all Food Insecurity: No Food Insecurity (04/07/2024) Received from [facility] Hunger Vital Sign Worried About Running Out of Food in the Last Year: Never true Ran Out of Food in the Last Year: Never true Transportation Needs: No Transportation Needs (04/07/2024) Received from [facility] PRAPARE - Transportation In the past 12 months, has lack of transportation kept you from medical appointments or from getting medications?: No In the past 12 months, has lack of transportation kept you from meetings, work, or from getting things needed for daily living?: No Stress: Not on file Housing Stability: Low Risk (04/07/2024) Received from [facility] Housing Stability Vital Sign Unable to Pay for Housing in the Last Year: No Number of Times Moved in the Last Year: 0 Homeless in the Last Year: No Physical Exam BP (!) 163/113 Pulse 105 Temp 98.1 ??F (36.7 ??C) Resp 18 Ht 1.6 m (5' 3 ) Wt 54.4 kg (120 lb) SpO2 98% Constitutional: Chronically-ill appearing. Eyes: Sclera normal, EOMI, PERRL HEENT: normocephalic, moist mucous membranes, no nasal discharge Neck: supple, non-tender Pulmonary: CTAB, no wheezing/rhonci/rales Cardiovascular: RRR, no murmurs rubs or gallops Abdomen: soft, non rigid, non-tender, no guarding, no rebound Extremities/MSK: no swelling, peripheral pulses intact, normal ROM Neuro: alert and oriented x3, face symmetric, tongue midline Skin: No evidence of lesions, rash, or ulcerations Psych: Normal affect Labs Reviewed COMPREHENSIVE METABOLIC PANEL - Abnormal; Notable for the following components: Result Value Creatinine 0.49 (*) CO2 20 (*) Glucose 504 (*) Calcium 8.2 (*) Albumin 3.3 (*) BUN/Creatinine Ratio 27 (*) Osmolality Calculated 307 (*) Albumin/Globulin Ratio 0.9 (*) All other components within normal limits ERYTHROCYTE SEDIMENTATION RATE - Abnormal; Notable for the following components: Erythrocyte Sedimentation Rate Westergren 32 (*) All other components within normal limits CBC W AUTO DIFFERENTIAL - Normal C-REACTIVE PROTEIN - Normal HIV-1 HIV-2 ANTIBODY + HIV P24 AG PANEL - Normal CULTURE CSF+GRAM STAIN HCG BETA BLOOD QUANTITATIVE QUANTIFERON-TB GOLD PLUS 4-TUBE LYME DISEASE TOTAL AB W RFLX IMMUNOASSAY BARTONELLA MONTANO ANTIBODY IGM SYPHILIS ANTIBODY CASCADING REFLEX GLUCOSE CSF PROTEIN CSF CELL COUNT W DIFFERENTIAL CSF VDRL CSF W REFLEX TO TITER ANGIOTENSIN CONVERTING ENZYME CSF PROTEIN ELECTROPHORESIS CSF PANEL MYELIN BASIC PROTEIN CSF LYME DISEASE AB SCREEN CSF XR Chest 2Vw (Results Pending) MRI Brain Wwo Contrast (Results Pending) MRI Angio Brain Venous Wwo Cont (Results Pending) MRI Orbits or Face Wwo Contrast (Results Pending) MRI Angio Brain Arterial Wo Cont (Results Pending) Medications gadobutrol (Gadavist) injection (5 mL Intravenous $ Given - Contrast 06/09/24 2514) midazolam (Versed) injection 2 mg (has no administration in time range) lidocaine PF (Xylocaine MPF) 1 % injection (has no administration in time range) Lumbar Puncture Date/Time: 06/10/2024 4:22 AM Performed by: Mann Saez DO Authorized by: Elke Mcneill MD Consent: Consent obtained: Written and verbal Consent given by: Patient Risks, benefits, and alternatives were discussed: yes Risks discussed: Headache, bleeding, infection, nerve damage, repeat procedure and pain Alternatives discussed: Alternative treatment, no treatment, delayed treatment and observation [place] protocol: Procedure explained and questions answered to patient or proxy's satisfaction: yes Relevant documents present and verified: yes Test results available: yes Imaging studies available: yes Required blood products, implants, devices, and special equipment available: yes Site/side marked: yes Patient identity confirmed: Verbally with patient, arm band and hospital- assigned identification number Pre-procedure details: Procedure purpose: Diagnostic Preparation: Patient was prepped and draped in usual sterile fashion Anesthesia: Anesthesia method: Local infiltration Local anesthetic: Lidocaine 1% w/o epi Procedure details: Lumbar space: L4-L5 interspace Patient position: R lateral decubitus Needle gauge: 20 Needle type: Spinal needle - Quincke tip Needle length (in): 1.5 Ultrasound guidance: no Number of attempts: 2 Opening pressure (cm H2O): 14 Fluid appearance: Clear Tubes of fluid: 4 Total volume (ml): 5 Post-procedure details: Puncture site: Adhesive bandage applied Procedure completion: Tolerated Comments: Performed by me with Dr Mcneill available for all critical steps of the procedure. Pt tolerated well MDM 39 year old female with pmh of IDDM, OU cataracts (s/p lens surgery on the right) presents to ED for papilledema w/u sent in by ophthalmology. Majority of her w/u was completed prior to my initial assessment. MRI without acute findings. LP was performed for completion of her w/u. Initial labs concerning for high glucose in CSF, likely from her poorly controlled diabetes. LP was performed after consent was obtained and without acute complications. D/C pending repeat glucose following insulin regimen. MARIE to oncoming team. DDX Diabetic retinopathy, toxic retinopathy, CRVO, CRAO, IIH, retinal detachment, vitreous hemorrhage, vs other Plan -labs; see orders -imaging; see orders -symptom control; -reassess EKG Not obtained ED Course Clinical Impressions Vision loss of left eye Elevated random blood glucose level Cerebrospinal fluid abnormality ED Final Diagnosis and Discharge information 1. Vision loss of left eye Disposition MARIE to Dr Gilmar Saez D.O. Emergency Medicine Resident, PGY3 06/10/2024 4:41 AM STERED NURSE HH CASE MANAGER * Elke Mcneill MD - 06/10/2024 3:54 AM CST For this patient encounter, I reviewed the Resident documentation, procedures (if done), treatment plan, and medical decision making; and I had [id number] time with this patient. I have conducted an independent evaluation of this patient including a focused history of dm presents with worsening vision OS. Has already poor vision OD that is unchanged. Was seen ophtho clinic yesterday and sent to ED to get MRI's of brain, orbits, and LP and labs. and a physical exam revealingalert and oriented. Lunsg clear cv reg. - which are in concordance with the Resident documentation e xcept as otherwise noted. Procedure note: After a review of the patient's case the Resident performed the documented procedure under my supervision. I was physically present during the Ojeda portions performed by the Resident [address] 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 VSS, A&OX4. No past medical history on file. No past surgical history on file. STERED NURSE HH CASE MANAGER documented in this encounter Plan of Treatment Upcoming Encounters Date Type Department Care Team (Late st Contact Info) Description 08/23/2024 10:15 AM REGISTERED NURSE HH CASE MANAGER Office Visit [facility] - Ophthalmology [address] [place] [phone] Sandeep Hernandez MD [address] [place] [address] [place] [phone] 09/27/2024 9:45 AM REGISTERED NURSE HH CASE MANAGER [facility] [address] [place] [phone] Buddy Fuller MD [address] [place] [address] [place] [phone] 10/04/2024 1:00 PM REGISTERED NURSE HH CASE MANAGER Office Visit [facility] - Endocrinology [address] [place] [phone] Rosalia Hair MD [address] [facility] [place] [phone] 02/07/2025 8:30 AM CDT Office Visit [facility] - Rheumatology [address] [facility] [place] [phone] Roni Castañeda MD [address] [facility] [place] [address] Scheduled Orders Name Type Priority Associated Diagnoses Orde r Schedule LYME DISEASE AB SCREEN CSF Lab STAT ONCE for 1 Occur rences starting 06/10/2024 until 06/10/2024 documented as of this encounter Procedures Procedure Name Priority Date/Time Associated Diagnosis Comments BARTONELLA MONTANO ANTIBODY IGM STAT 06/10/2024 8:24 AM REGISTERED NURSE HH CASE MANAGER SYPHILIS ANTIBODY CASCADING REFLEX STAT 06/10/2024 8:24 AM REGISTERED NURSE HH CASE MANAGER SUSHANT BLOOD SCREEN W/REFLEX TITER STAT 06/10/2024 8:24 AM REGISTERED NURSE HH CASE MANAGER ANGIOTENSIN CONVERTING ENZYME BLOOD STAT 06/10/2024 8:24 AM REGISTERED NURSE HH CASE MANAGER BASIC METABOLIC PANEL (CALCIUM TOTAL) STAT 06/10/2024 8:24 AM REGISTERED NURSE HH CASE MANAGER VDRL CSF W REFLEX TO TITER STAT 06/10/2024 5:22 AM REGISTERED NURSE HH CASE MANAGER CULTURE CSF+GRAM STAIN STAT 5:22 AM REGISTERED NURSE HH CASE MANAGER ANGIOTENSIN CONVERTING ENZYME CSF STAT 06/10/2024 5:22 AM REGISTERED NURSE HH CASE MANAGER MYELIN BASIC PROTEIN CSF STAT 06/10/2024 5:22 AM REGISTERED NURSE HH CASE MANAGER CELL COUNT W DIFFERENTIAL CSF STAT 06/10/2024 5:22 AM REGISTERED NURSE HH CASE MANAGER PROTEIN CSF STAT 06/10/2024 5:22 AM REGISTERED NURSE HH CASE MANAGER GLUCOSE CSF STAT 06/10/2024 5:22 AM REGISTERED NURSE HH CASE MANAGER PROTEIN ELECTROPHORESIS CSF PANEL STAT 06/10/2024 5:22 AM REGISTERED NURSE HH CASE MANAGER ED LUMBAR PUNCTURE Routine 06/10/2024 4: 22 AM REGISTERED NURSE HH CASE MANAGER Vision loss of left eye MRI ANGIO BRAIN ARTERIAL WO CONT STAT 06/09/2024 11:16 PM REGISTERED NURSE HH CASE MANAGER Vision loss of left eye MRI ORBITS OR FACE WWO CONTRAST STAT 06/09/2024 11:16 PM REGISTERED NURSE HH CASE MANAGER Vision loss of left eye MRI ANGIO BRAIN VENOUS WWO CONT STAT 06/09/2024 11:16 PM REGISTERED NURSE HH CASE MANAGER Vision loss of left eye MRI BRAIN WWO CONTRAST STAT 11:15 PM REGISTERED NURSE HH CASE MANAGER Vision loss of left eye XR CHEST 2VW STAT 06/09/2024 7:34 PM REGISTERED NURSE HH CASE MANAGER Vision loss of left eye LYME DISEASE TOTAL AB W RFLX IMMUNOASSAY STAT 06/09/2024 7:13 PM REGISTERED NURSE HH CASE MANAGER QUANTIFERON-TB GOLD PLUS 4-TUBE STAT 06/09/2024 7:13 PM REGISTERED NURSE HH CASE MANAGER HIV-1 HIV-2 ANTIBODY + HIV P24 AG PANEL STAT 06/09/2024 7:13 PM REGISTERED NURSE HH CASE MANAGER C-REACTIVE PROTEIN ZENY 06/09/2024 7: 13 PM REGISTERED NURSE HH CASE MANAGER ERYTHROCYTE SEDIMENTATION RATE STAT 06/09/2024 7:13 PM REGISTERED NURSE HH CASE MANAGER CBC W AUTO DIFFERENTIAL STAT 06/09/20 7:13 PM REGISTERED NURSE HH CASE MANAGER COMPREHENSIVE METABOLIC PANEL STAT 06/09/2024 7:13 PM REGISTERED NURSE HH CASE MANAGER HCG BETA BLOOD QUANTITATIVE STAT 06/09/2024 7:13 PM REGISTERED NURSE HH CASE MANAGER documented in this encounter Results * (ABNORMAL) BASIC METABOLIC PANEL (CALCIUM TOTAL) (06/10/2024 8:24 AM REGISTERED NURSE HH CASE MANAGER) BUN 11 7 - 26 mg/dL 06/10/2024 9:20 AM [facility] Creatinine 0.47(L) 0.56 - 0.96 mg/dL 06/10/2024 9:20 AM [facility] Sodium 131(L) 136 - 145 mmol/L 06/10/2024 9:20 AM [facility] Potassium 4.4 3.5 - 4.5 mmol/L 06/10/2024 9:20 AM [facility] Chloride 92(L) 98 - 107 mmol/L 06/10/2024 9:20 AM [facility] CO2 22 22 - 29 mmol/L 06/10/2024 9:20 AM [facility] Glucose 782(HH) 70 - 99 mg/dL 06/10/2024 9:20 AM [facility] Calcium 8.9 8.4 - 10.2 mg/dL 06/10/2024 9:20 AM [facility] Anion Gap 17(H) 6 - 16 06/10/2024 9:20 AM [facility] BUN/Creatinine Ratio 23 7 - 23 06/10/2024 9:20 AM [facility] Osmolality Calculated 309(H) 275 - 295 mOsm/kg 06/10/2024 9:20 AM [facility] eGFR by CKD-EPI >90 >=90 mL/min/1.7 3 m2 06/10/2024 9:20 AM [facility] Blood BLOOD SPECIMEN / Unknown Venipuncture / Unknown 06/10/2024 8:24 AM REGISTERED NURSE HH CASE MANAGER 06/10/2024 8:35 AM REGISTERED NURSE HH CASE MANAGER Tobias Schafer MD LAB - CHEMISTRY [facility] Organization Address City/State/ZIP Co de Phone Number [facility] [address] [place] [address], [facility] [[email or web address]] [phone] * (ABNORMAL) ANGIOTENSIN CONVERTING ENZYME BLOOD (06/10/2024 8:24 AM REGISTERED NURSE HH CASE MANAGER) Pathologist [facility] Angiotensin-Conve rting Enzyme 90(H) 16 - 85 U/L 06/13/2024 7:12 PM REGISTERED NURSE HH CASE MANAGER [employer] ([facility]) Comment: Performed By: [facility] [address] [place] [address] Certified Corporate Travel Executive: Yusuf Castro MD, PhD CLIA Number: [id number] Blood BLOOD SPECIMEN / Unknown Venipuncture / Unknown 06/10/2024 8:24 AM REGISTERED NURSE HH CASE MANAGER 06/10/2024 8:29 AM REGISTERED NURSE HH CASE MANAGER Elke Mcneill MD LAB - CHEMISTRY [facility]) [address] [place] [address] * SUSHANT BLOOD SCREEN W/REFLEX TITER (06/10/2024 8:24 AM REGISTERED NURSE HH CASE MANAGER) Pathologist [facility] SUSHANT IgG None Detected None Detected 06/13/2024 8:57 PM REGISTERED NURSE HH CASE MANAGER [facility] ([facility]) Comment: If suspicion of connective tissue disease is strong and SUSHANT EIA is negative, consider testing for SUSHANT by IFA ([id number]). INTERPRETIVE INFORMATION: Anti-Nuclear Antibodies (SUSHANT), IgG by [employer] Antinuclear Antibodies (SUSHANT), IgG by [employer]: SUSHANT specimens are screened using enzyme-linked immunosorbent assay ([facility]INMAY) methodology. All [employer] results reported as Detected are further tested by indirect fluorescent assay (IFA) using HEp-2 substrate with an IgG-specific conjugate. The SUSHANT [employer]Y screen is designed to detect antibodies against dsDNA, histones, SS-A (Ro), SS-B (La), Francois, Francois/ARRESTING GEAR OPERATOR, Scl-70, Марина-1, centromeric proteins, other antigens extracted from the HEp-2 cell nucleus. SUSHANT CHINMAY assays have been reported to have lower sensitivities than SUSHANT IFA for systemic autoimmune rheumatic diseases (SARD). Negative results do not necessarily rule out SARD. Performed By: [facility] [address] [place] [address] Certified Corporate Travel Executive: Yusuf Castro MD, PhD CLIA Number: [id number] Blood BLOOD SPECIMEN / Unknown Venipuncture / Unknown 06/10/2024 8:24 AM REGISTERED NURSE HH CASE MANAGER 06/10/2024 8:29 AM REGISTERED NURSE HH CASE MANAGER Elke Mcneill MD LAB - CHEMISTRY [facility]) [address] * SYPHILIS ANTIBODY CASCADING REFLEX (06/10/2024 8:24 AM REGISTERED NURSE HH CASE MANAGER) Treponema pallidum Antibody Non-react stephanie Non-react stephanie 06/10/2024 9:[address] [facility] Comment: No Laboratory evidence of syphilis infection. ?? Note: ??Circulating antibodies may be low or undetectable in early infection. ??If recent exposure is suspected, re-draw sample in 2-4 weeks and repeat testing. Blood BLOOD SPECIMEN / Unknown Venipuncture / Unknown 06/10/2024 8:24 AM REGISTERED NURSE HH CASE MANAGER 06/10/2024 8:29 AM REGISTERED NURSE HH CASE MANAGER Maliha Tilley MD LAB - SEROLOGY ORDER NAUN Performing Organization Address City/[facility]/ZIP Co de Phone Number [facility] [address] [id number], [facility] [[email or web address]] [phone] * BARTONELLA MONTANO ANTIBODY IGM (06/10/2024 8:24 AM REGISTERED NURSE HH CASE MANAGER) Bartonella montano Antibody IgM < 1:16 06/16/2024 9:49 AM [facility]) Comment: INTERPRETIVE INFORMATION: Bartonella montano Ab, IgM [...] developed and its performance characteristics determined by [facility]. It has not been cleared or approved by the US Food and Drug Administration. This test was performed in a CLIA certified laboratory and is intended for clinical purposes. Performed By: [facility] [address] [place] [address] Certified Corporate Travel Executive: Yusuf Castro MD, PhD CLIA Number: [id number] Blood BLOOD SPECIMEN / Unknown Venipuncture / Unknown 06/10/2024 8:24 AM REGISTERED NURSE HH CASE MANAGER 06/10/2024 8:29 AM REGISTERED NURSE HH CASE MANAGER Maliha Tilley MD LAB - SEROLOGY ORDER NAUN Performing Organization Address [facility] de Phone Number [facility] ([facility]) [address] [place] [address] * MYELIN BASIC PROTEIN CSF (06/10/2024 5:22 AM REGISTERED NURSE HH CASE MANAGER) Myelin Basic Protein 2.15 0.00 - 5.50 ng/mL 06/14/2024 9:42 AM REGISTERED NURSE HH CASE MANAGER [facility] ([facility]) Comment: INTERPRETIVE INFORMATION: ??Myelin Basic Protein This test was developed and its performance characteristics determined by [employer]. It has not been cleared or approved by the US Food and Drug Administration. This test was performed in a CLIA certified laboratory and is intended for clinical purposes. Performed By: [facility] [address] [place] [address] Certified Corporate Travel Executive: Yusuf Castro MD, PhD CLIA Number: [id number] Cerebral spinal fluid CEREBROSPINAL FLUID SPECIMEN / Unknown Collection / Unknown 06/10/2024 5:22 AM REGISTERED NURSE HH CASE MANAGER 06/10/2024 5:39 AM REGISTERED NURSE HH CASE MANAGER Elke Mcneill MD LAB - BODY FLUID ORD ERABLES Performing Organization Address [facility]/State/ZIP Co de Phone Number [facility]) [address] * (ABNORMAL) PROTEIN ELECTROPHORESIS CSF PANEL (06/10/2024 5:22 AM REGISTERED NURSE HH CASE MANAGER) Pathologist [facility] Protein CSF 48.6(H) 15.0 - 45.0 mg/dL 06/12/2024 5:17 PM REGISTERED NURSE HH CASE MANAGER [facility]) Prealbumin CSF 1.9 0.0 - 3.1 mg/dL 06/12/2024 5:17 PM REGISTERED NURSE HH CASE MANAGER [facility]) Albumin CSF 25.8 8.4 - 34.2 mg/dL 06/12/2024 5:17 PM REGISTERED NURSE HH CASE MANAGER [facility]) Alpha-1 Globulin CSF 1.7 0.0 - 3.1 mg/dL 06/12/2024 5:17 PM REGISTERED NURSE HH CASE MANAGER [facility]) Nhxvz-2-Cmbfpkjv CSF 5.8(H) 0.0 - 5.4 mg/dL 06/12/2024 5:17 PM REGISTERED NURSE HH CASE MANAGER [facility]) Beta-Globulin CSF 9.2(H) 0.0 - 8.1 mg/dL 06/12/2024 5:17 PM REGISTERED NURSE HH CASE MANAGER [facility]) Gamma Globulin CSF 4.2 0.0 - 5.4 mg/dL 06/12/2024 5:17 PM REGISTERED NURSE HH CASE MANAGER [facility]) Comment: Performed By: [facility] [email or web address] [address] [place] [address] Certified Corporate Travel Executive: Yusuf Castro MD, PhD CLIA Number: [id number] Cerebral spinal fluid CEREBROSPINAL FLUID SPECIMEN / Unknown Collection / Unknown 06/10/2024 5:22 AM REGISTERED NURSE HH CASE MANAGER 06/10/2024 5:39 AM REGISTERED NURSE HH CASE MANAGER Elke Mcneill MD LAB - BODY FLUID ORD ERABLES [facility] [employer] [facility]) [address] * ANGIOTENSIN CONVERTING ENZYME CSF (06/10/2024 5:22 AM REGISTERED NURSE HH CASE MANAGER) [facility] Angiotensin-Convert ing Enzyme CSF 2.5 0.0 - 2.5 U/L 06/15/2024 12:12 AM REGISTERED NURSE HH CASE MANAGER [facility] ([facility]) Comment: This test was developed and its performance characteristics determined by [employer] It has not been cleared or approved by the US Food and Drug Administration. This test was performed in a CLIA certified laboratory and is intended for clinical purposes. Performed By: [employer] [address] [place] [address] Certified Corporate Travel Executive: Yusuf Castro MD, PhD CLIA Number: [id number] Cerebral spinal fluid CEREBROSPINAL FLUID SPECIMEN / Unknown Collection / Unknown 06/10/2024 5:22 AM REGISTERED NURSE HH CASE MANAGER 06/10/2024 5:39 AM REGISTERED NURSE HH CASE MANAGER Elke Mcneill MD LAB - BODY FLUID ORD ERABLES Performing Organization Address [facility] Co de Phone Number [facility]) [address] [place] [address] * VDRL CSF W REFLEX TO TITER (06/10/2024 5:22 AM REGISTERED NURSE HH CASE MANAGER) VDRL CSF Non Reactive Non Reactive 06/12/2024 3:54 PM REGISTERED NURSE HH CASE MANAGER [facility] ([facility]) Comment: Because the VDRL was Non Reactive, the VDRL titer was not performed. Performed By: [employer] [address] [place] [address] Certified Corporate Travel Executive: Yusuf Castro MD, PhD CLIA Number: [id number] Cerebral spinal fluid CEREBROSPINAL FLUID SPECIMEN / Unknown Collection / Unknown 06/10/2024 5:22 AM REGISTERED NURSE HH CASE MANAGER 06/10/2024 5:39 AM REGISTERED NURSE HH CASE MANAGER Elke Mcneill MD LAB - BODY FLUID ORD ERABLES Performing Organization Address City/[facility]/ZIP Co de Phone Number [facility]) [address] [place] [address] * CULTURE CSF+GRAM STAIN (06/10/2024 5:22 AM REGISTERED NURSE HH CASE MANAGER) Culture No growth REYNA 06/17/2024 5:20 AM REGISTERED NURSE HH CASE MANAGER [facility] Gram Stain No organisms seen 024 5:20 AM REGISTERED NURSE HH CASE MANAGER [facility] Gram Stain No polymorphonuclear cells 06/17/2024 5:20 AM REGISTERED NURSE HH CASE MANAGER [facility] MICROBIOLOGY Cerebral spinal fluid CEREBROSPINAL FLUID SPECIMEN / Unknown Collection / Unknown 06/10/2024 5:22 AM REGISTERED NURSE HH CASE MANAGER 06/10/2024 5:39 AM REGISTERED NURSE HH CASE MANAGER Elke Mcneill MD LAB - MICROBIOLOGY O RDERABLES [facility] MICROBIOLOGY [address] [place] [address], [facility] [[email or web address]] [phone] * (ABNORMAL) CELL COUNT W DIFFERENTIAL CSF (06/10/2024 5:22 AM REGISTERED NURSE HH CASE MANAGER) Tube Number [id number] 06/10/2024 5:51 AM [facility] [employer] ABSENT ABSENT 06/10/2024 5:51 AM [facility] CSF Appearance CLEAR 06/10/2024 5:51 AM [facility] CSF Color COLORLESS 06/10/2024 5:51 AM [facility] Total Nucleated Cells CSF 2 <=5 x10E6/L 06/10/2024 5:51 AM [facility] RBC Count CSF 18(H) <1 x10E6/L 06/10/2024 5:51 AM [facility] Cerebral spinal fluid CEREBROSPINAL FLUID SPECIMEN / Unknown Collection / Unknown 06/10/2024 5:22 AM REGISTERED NURSE HH CASE MANAGER 06/10/2024 5:39 AM REGISTERED NURSE HH CASE MANAGER Narrative [facility] - 06/10/2024 5:51 AM REGISTERED NURSE HH CASE MANAGER No differential performed per procedure Elke Mcneill MD LAB - BODY FLUID ORD ERABLES [facility] [address] [place] [address], [place] [phone] * (ABNORMAL) PROTEIN CSF (06/10/2024 5:22 AM REGISTERED NURSE HH CASE MANAGER) Protein CSF 54(H) 15 - 45 mg/dL 06/10/2024 6:15 AM [facility] Cerebral spinal fluid CEREBROSPINAL FLUID SPECIMEN / Unknown Collection / Unknown 06/10/2024 5:22 AM REGISTERED NURSE HH CASE MANAGER 06/10/2024 5:39 AM REGISTERED NURSE HH CASE MANAGER Elke Mcneill MD LAB - BODY FLUID ORD ERABLES [address] [address], [place] [phone] * (ABNORMAL) GLUCOSE CSF (06/10/2024 5:22 AM REGISTERED NURSE HH CASE MANAGER) Glucose CSF 294(H) 40 - 70 mg/dL 06/10/2024 6:15 AM REGISTERED NURSE HH CASE MANAGER [facility] Cerebral spinal fluid CEREBROSPINAL FLUID SPECIMEN / Unknown Collection / Unknown 06/10/2024 5:22 AM REGISTERED NURSE HH CASE MANAGER 06/10/2024 5:39 AM REGISTERED NURSE HH CASE MANAGER Elke Mcneill MD LAB - BODY FLUID ORD ÁNGELA Performing Organization Address City/[facility]/ZIP Co de Phone Number [address] [address], [place] [phone] * Lumbar Puncture (06/10/2024 4:22 AM REGISTERED NURSE HH CASE MANAGER) Narrative Elke Mcneill MD - 06/10/2024 4:22 AM REGISTERED NURSE HH CASE MANAGER Mann Saez, DO ? 06/15/2024 12:03 PM Lumbar Puncture Date/Time: 06/10/2024 4:22 AM Performed by: Mann Saez, Authorized by: Elke Mcneill MD ?? Consent: ??Consent obtained: ??Written and verbal ??Consent given by: ??Patient ??Risks, benefits, and alternatives were discussed: yes ?Risks discussed: ??Headache, bleeding, infection, nerve damage, repeat procedure and pain ??Alternatives discussed: ??Alternative treatment, no treatment, delayed treatment and observation [place] protocol: ??Procedure explained and questions answered to [...] Brain Arterial Wo Cont (06/09/2024 11:16 PM REGISTERED NURSE HH CASE MANAGER) Anatomical Region Laterality Modality Head Magnetic Resonan ce 06/10/2024 1:00 AM REGISTERED NURSE HH CASE MANAGER Impressions 06/10/2024 10:52 AM REGISTERED NURSE HH CASE MANAGER IMPRESSION: 1.No evidence of acute intracranial findings [...] 06/10/2024 10:52 AM Narrative 06/10/2024 10:52 AM REGISTERED NURSE HH CASE MANAGER PROCEDURE: ??MRI BRAIN WWO CONTRAST, MRI ANGIO BRAIN ARTERIAL WO CONT, MRI ORBITS OR FACE WWO CONTRAST, MRI ANGIO BRAIN VENOUS WWO CONT, DATE/TIME OF EXAM: ??06/09/2024 11:15 PM, LOCATION ??[facility] INDICATION: H54.62: Vision loss of left eye ADDITIONAL CLINICAL INFORMATION: Ordering Provider Reason For Exam: ??r/o mass/IIH (accession [id number]), vision loss (accession [id number]), vision loss (accession [id number]), vision loss (accession [id number]) Technologist Note: ??Does the patient have a [...] week. Was sent to retinal specialist by cfd engineer for preoperative ophthalmic evaluation prior to left [...] CONT, DATE/TIMEOF EXAM: 06/09/2024 11:15 PM, LOCATION [facility] INDICATION: H54.62: Vision loss of left eye ADDITIONAL CLINICAL INFORMATION: Ordering Provider Reason For Exam: r/o mass/IIH (accession [id number]), vision loss (accession [id number]), vision loss (accession [id number]), vision loss (accession [id number]) Technologist Note: Does the patient have a [...] week. Was sent to retinal specialist by cfd engineer for preoperative ophthalmic evaluation prior to left [...] or Face Wwo Contrast (06/09/2024 11:16 PM REGISTERED NURSE HH CASE MANAGER) Anatomical Region Laterality Modality Head Magnetic Resonan ce 06/10/2024 1:00 AM REGISTERED NURSE HH CASE MANAGER Impressions 06/10/2024 10:52 AM REGISTERED NURSE HH CASE MANAGER IMPRESSION: 1.No evidence of acute intracranial findings [...] 06/10/2024 10:52 AM Narrative 06/10/2024 10:52 AM REGISTERED NURSE HH CASE MANAGER PROCEDURE: ??MRI BRAIN WWO CONTRAST, MRI ANGIO BRAIN ARTERIAL WO CONT, MRI ORBITS OR FACE WWO CONTRAST, MRI ANGIO BRAIN VENOUS WWO CONT, DATE/TIME OF EXAM: ??06/09/2024 11:15 PM, LOCATION ??[facility] INDICATION: H54.62: Vision loss of left eye ADDITIONAL CLINICAL INFORMATION: Ordering Provider Reason For Exam: ??r/o mass/IIH (accession [id number]), vision loss (accession [id number]), vision loss (accession [id number]), vision loss (accession [id number]) Technologist Note: ??Does the patient have a [...] week. Was sent to retinal specialist by cfd engineer for preoperative ophthalmic evaluation prior to left [...] CONT, DATE/TIMEOF EXAM: 06/09/2024 11:15 PM, LOCATION [facility] INDICATION: H54.62: Vision loss of left eye ADDITIONAL CLINICAL INFORMATION: Ordering Provider Reason For Exam: r/o mass/IIH (accession [id number]), vision loss (accession [id number]), vision loss (accession [id number]), vision loss (accession [id number]) Technologist Note: Does the patient have a [...] week. Was sent to retinal specialist by cfd engineer for preoperative ophthalmic evaluation prior to left [...] Brain Venous Wwo Cont (06/09/2024 11:16 PM REGISTERED NURSE HH CASE MANAGER) Anatomical Region Laterality Modality Head Magnetic Resonan ce 06/10/2024 1:00 AM REGISTERED NURSE HH CASE MANAGER Impressions 06/10/2024 10:52 AM REGISTERED NURSE HH CASE MANAGER IMPRESSION: 1.No evidence of acute intracranial findings [...] 06/10/2024 10:52 AM Narrative 06/10/2024 10:52 AM REGISTERED NURSE HH CASE MANAGER PROCEDURE: ??MRI BRAIN WWO CONTRAST, MRI ANGIO BRAIN ARTERIAL WO CONT, MRI ORBITS OR FACE WWO CONTRAST, MRI ANGIO BRAIN VENOUS WWO CONT, DATE/TIME OF EXAM: ??06/09/2024 11:15 PM, LOCATION ??[facility] INDICATION: H54.62: Vision loss of left eye ADDITIONAL CLINICAL INFORMATION: Ordering Provider Reason For Exam: ??r/o mass/IIH (accession [id number]), vision loss (accession [id number]), vision loss (accession [id number]), vision loss (accession [id number]) Technologist Note: ??Does the patient have a [...] week. Was sent to retinal specialist by cfd engineer for preoperative ophthalmic evaluation prior to left [...] CONT, DATE/TIMEOF EXAM: 06/09/2024 11:15 PM, LOCATION [facility] INDICATION: H54.62: Vision loss of left eye ADDITIONAL CLINICAL INFORMATION: Ordering Provider Reason For Exam: r/o mass/IIH (accession [id number]), vision loss (accession [id number]), vision loss (accession [id number]), vision loss (accession [id number]) Technologist Note: Does the patient have a [...] week. Was sent to retinal specialist by cfd engineer for preoperative ophthalmic evaluation prior to left [...] MRI Brain Wwo Contrast (06/09/2024 11:15 PM REGISTERED NURSE HH CASE MANAGER) Anatomical Region Laterality Modality Head Magnetic Resonan ce 06/10/2024 1:00 AM REGISTERED NURSE HH CASE MANAGER Impressions 06/10/2024 10:52 AM REGISTERED NURSE HH CASE MANAGER IMPRESSION: 1.No evidence of acute intracranial findings [...] 06/10/2024 10:52 AM Narrative 06/10/2024 10:52 AM REGISTERED NURSE HH CASE MANAGER PROCEDURE: ??MRI BRAIN WWO CONTRAST, MRI ANGIO BRAIN ARTERIAL WO CONT, MRI ORBITS OR FACE WWO CONTRAST, MRI ANGIO BRAIN VENOUS WWO CONT, DATE/TIME OF EXAM: ??06/09/2024 11:15 PM, LOCATION ??[facility] INDICATION: H54.62: Vision loss of left eye ADDITIONAL CLINICAL INFORMATION: Ordering Provider Reason For Exam: ??r/o mass/IIH (accession [id number]), vision loss (accession [id number]), vision loss (accession [id number]), vision loss (accession [id number]) Technologist Note: ??Does the patient have a [...] week. Was sent to retinal specialist by cfd engineer for preoperative ophthalmic evaluation prior to left [...] CONT, DATE/TIMEOF EXAM: 06/09/2024 11:15 PM, LOCATION [facility] INDICATION: H54.62: Vision loss of left eye ADDITIONAL CLINICAL INFORMATION: Ordering Provider Reason For Exam: r/o mass/IIH (accession [id number]), vision loss (accession [id number]), vision loss (accession [id number]), vision loss (accession [id number]) Technologist Note: Does the patient have a [...] week. Was sent to retinal specialist by cfd engineer for preoperative ophthalmic evaluation prior to left [...] * XR Chest 2Vw (06/09/2024 7:34 PM REGISTERED NURSE HH CASE MANAGER) Anatomical Region Laterality Modality Chest Digital Radiogra phy 06/09/2024 7:46 PM REGISTERED NURSE HH CASE MANAGER Narrative 06/10/2024 8:29 AM REGISTERED NURSE HH CASE MANAGER PROCEDURE: ??XR CHEST 2VW, DATE/TIME OF EXAM: ??06/09/2024 7:34 PM, LOCATION [facility] INDICATION: H54.62: Vision loss of left [...] dictated by Moon Reid MD (vice president commercial [employer]). IRandy MD have personally reviewed and interpreted this examination/study. > Interpreting Provider: Randy Pagan MD on 06/10/2024 8:29 AM Procedure Note Randy Pagan MD - 06/10/2024 PROCEDURE: XR CHEST 2VW, DATE/TIME OF EXAM: 06/09/2024 7:34 PM, LOCATION [facility] INDICATION: H54.62: Vision loss of left [...] dictated by Moon Reid MD (vice president commercial [employer]). I, Randy Pagan MD have personally reviewed and interpreted this examination/study. > Interpreting Provider: Randy Pagan MD on 06/10/2024 8:29 AM Maliha Tilley MD DIAGNOSTIC IMAGING O RDERABLES * HCG BETA BLOOD QUANTITATIVE (06/09/2024 7:13 PM REGISTERED NURSE HH CASE MANAGER) [facility] Beta-hCG Total Quantitative <3 mIU/mL 06/09/2024 7:57 PM REGISTERED NURSE HH CASE MANAGER [facility] Comment: HCG Numeric Result Interpretation: ? [...] Unknown Venipuncture / Unknown 06/09/2024 7:13 PM REGISTERED NURSE HH CASE MANAGER 06/09/2024 7:24 PM REGISTERED NURSE HH CASE MANAGER Maliha Tilley MD [facility] Organization Address City/State/ZIP Co de Phone Number [address] [address], [facility] [[email or web address]] [phone] * LYME DISEASE TOTAL AB W RFLX IMMUNOASSAY (06/09/2024 7:13 PM REGISTERED NURSE HH CASE MANAGER) [facility] Lyme Antibody Total Negative Negative 06/11/2024 10:07 AM REGISTERED NURSE HH CASE MANAGER [facility] ([facility]) Comment: Lyme antibodies not detected. Reflex testing [...] Unknown Venipuncture / Unknown 06/09/2024 7:13 PM REGISTERED NURSE HH CASE MANAGER 06/09/2024 7:20 PM REGISTERED NURSE HH CASE MANAGER Narrative [facility] ([facility]) - 06/11/2024 10:07 AM REGISTERED NURSE HH CASE MANAGER Performed at: ??01 - [facility] [address] [facility], [place], [place] ??[id number] Industrial Order Clerk: Toni Johnston PhD, Phone: ??[phone] Maliha Tilley MD LAB - CHEMISTRY VANESSA TOMLIN [facility] ([facility]) [address] [place] [address] * HIV-1 HIV-2 ANTIBODY + HIV P24 AG PANEL (06/09/2024 7:13 PM REGISTERED NURSE HH CASE MANAGER) [facility] HIV Antigen/Antibod y 1 & 2 Non-reacti ve Non-react stephanie 06/09/2024 8:03 PM REGISTERED NURSE HH CASE MANAGER [facility] Comment:No Laboratory eviden ce of HIV infection. Blood BLOOD SPECIMEN / Unknown Venipuncture / Unknown 06/09/2024 7:13 PM REGISTERED NURSE HH CASE MANAGER 06/09/2024 7:20 PM REGISTERED NURSE HH CASE MANAGER Maliha Tilley MD LAB - CHEMISTRY VANESSA TOMLIN [facility] [address] [address], [facility] [[email or web address]] [phone] * QUANTIFERON-TB GOLD PLUS 4-TUBE (06/09/2024 7:13 PM REGISTERED NURSE HH CASE MANAGER) Pathologist [facility] QuantiFERON Mitogen Minus NIL 9.95 IU/mL 06/12/2024 6:18 AM REGISTERED NURSE HH CASE MANAGER [facility] ([facility]) QuantiFERON Nil Value 0.05 IU/mL 06/12/2024 6:18 AM REGISTERED NURSE HH CASE MANAGER [facility] ([facility]) QuantiFERON Plus TB1 Minus NIL 0.00 <=0.34 IU/mL 06/12/2024 6:18 AM REGISTERED NURSE HH CASE MANAGER [facility] ([facility]) QuantiFERON Plus TB2 Minus NIL 0.00 <=0.34 IU/mL 06/12/2024 6:18 AM REGISTERED NURSE HH CASE MANAGER [facility] ([facility]) QuantiFERON-TB Gold Plus Negative Negative 06/12/2024 6:18 AM REGISTERED NURSE HH CASE MANAGER [facility] ([facility]) Comment: INTERPRETIVE INFORMATION:Quantiferon TB Gold Plus Interferon [...] Mycobacterium tuberculosis Infection -- [place], 2010 (http://www.cdc.gov/mmwr/preview/mmwrhtml/rn2721d0.htm), for more information concerning test performance in low-prevalence populations and use in occupational screening. Performed By: [facility] [address] [place] [address] Certified Corporate Travel Executive: Yusuf Castro MD, PhD CLIA Number: [id number] Blood BLOOD SPECIMEN / Unknown Venipuncture / Unknown 06/09/2024 7:13 PM REGISTERED NURSE HH CASE MANAGER 06/09/2024 7:24 PM REGISTERED NURSE HH CASE MANAGER Maliha Tilley MD LAB - CHEMISTRY VANESSA TOMLIN [facility] Organization Address City/State/ZIP Co de Phone Number [facility] [employer] [facility]) [address] [place] [address] * C-REACTIVE PROTEIN (06/09/2024 7:13 PM REGISTERED NURSE HH CASE MANAGER) C-Reactive Protein <0.5 <=0.5 mg/dL 06/09/2024 7:57 PM REGISTERED NURSE HH CASE MANAGER [facility] Blood BLOOD SPECIMEN / Unknown Venipuncture / Unknown 06/09/2024 7:13 PM REGISTERED NURSE HH CASE MANAGER 06/09/2024 7:24 PM REGISTERED NURSE HH CASE MANAGER Maliha Tilley MD LAB - CHEMISTRY VANESSA TOMLIN Performing Organization Address [facility]/ZIP Co de Phone Number [address] [address], [facility] [[email or web address]] [phone] * (ABNORMAL) ERYTHROCYTE SEDIMENTATION RATE (06/09/2024 7:13 PM REGISTERED NURSE HH CASE MANAGER) Erythrocyte Sedimentation Rate Westergren 32(H) 0 - 20 MM/HR 06/09/2024 8:25 PM [facility] Blood BLOOD SPECIMEN / Unknown Venipuncture / Unknown 06/09/2024 7:13 PM REGISTERED NURSE HH CASE MANAGER 06/09/2024 7:24 PM REGISTERED NURSE HH CASE MANAGER Maliha Tilley MD LAB - HEMATOLOGY TASHA MOTTA Performing Organization Address City/[facility]/ZIP Co de Phone Number [address] [address], [facility] [[email or web address]] [phone] * (ABNORMAL) COMPREHENSIVE METABOLIC PANEL (06/09/2024 7:13 PM REGISTERED NURSE HH CASE MANAGER) [facility] BUN 13 7 - 26 mg/dL 06/09/2024 7:58 PM [facility] Creatinine 0.49(L) 0.56 - 0.96 mg/dL 06/09/2024 7:58 PM [facility] Sodium 137 136 - 145 mmol/L 06/09/2024 7:58 PM [facility] Potassium 3.7 3.5 - 4.5 mmol/L 06/09/2024 7:58 PM [facility] Chloride 102 98 - 107 mmol/L 06/09/2024 7:58 PM [facility] CO2 20(L) 22 - 29 mmol/L 06/09/2024 7:58 PM [facility] Glucose 504(H) 70 - 99 mg/dL 06/09/2024 7:58 PM [facility] Calcium 8.2(L) 8.4 - 10.2 mg/dL 06/09/2024 7:58 PM [facility] Protein Total 7.0 6.0 - 8.3 g/dL 06/09/2024 7:58 PM [facility] Albumin 3.3(L) 3.4 - 5.0 g/dL 06/09/2024 7:58 PM [facility] Bilirubin Total 0.2 0.2 - 1.2 mg/dL 06/09/2024 7:58 PM [facility] Alkaline Phosphatase 131 40 - 150 U/L 06/09/2024 7:58 PM [facility] ALT 9 5 - 55 U/L 06/09/2024 7:58 PM [facility] AST 18 5 - 34 U/L 06/09/2024 7:58 PM [facility] Anion Gap 15 6 - 16 06/09/2024 7:58 PM [facility] BUN/Creatinine Ratio 27(H) 7 - 23 06/09/2024 7:58 PM [facility] Osmolality Calculated 307(H) 275 - 295 mOsm/kg 06/09/2024 7:58 PM [facility] Albumin/Globulin Ratio 0.9(L) 1.1 - 2.3 06/09/2024 7:58 PM [facility] eGFR by CKD-EPI >90 >=90 mL/min/1.7 3 m2 06/09/2024 7:58 PM [facility] Blood BLOOD SPECIMEN / Unknown Venipuncture / Unknown 06/09/2024 7:13 PM REGISTERED NURSE HH CASE MANAGER 06/09/2024 7:24 PM [facility] Maliha Tilley MD LAB - CHEMISTRY ORDE SADA [facility] [address] [place] [address], [facility] [facility] [[email or web address]] [phone] * CBC W AUTO DIFFERENTIAL (06/09/2024 7:13 PM [facility]) WBC 6.6 4.0 - 10.7 x10E9/L 06/09/2024 7:29 PM [facility] RBC Count 4.91 3.90 - 5.20 x10E12/L 06/09/2024 7:29 PM [facility] Hemoglobin 13.7 11.9 - 15.8 g/dL 06/09/2024 7:29 PM [facility] Hematocrit 39.6 34.8 - 46.1 % 06/09/2024 7:29 PM [facility] MCV 80.7 80.0 - 98.0 fL 06/09/2024 7:29 PM [facility] MCH 27.9 26.7 - 33.6 pg 06/09/2024 7:29 PM [facility] MCHC 34.6 31.7 - 36.3 g/dL 06/09/2024 7:29 PM [facility] RDW-CV 14.3 11.3 - 14.8 % 06/09/2024 7:29 PM [facility] Platelet Count 385 150 - 420 x10E9/L 06/09/2024 7:29 PM [facility] MPV 9.8 7.8 - 11.4 fL 06/09/2024 7:29 PM [facility] Neutrophil % 61.7 41.0 - 74.0 % 06/09/2024 7:29 PM [facility] Lymphocyte % 27.1 17.0 - 47.0 % 06/09/2024 7:29 PM [facility] Monocyte % 6.2 3.0 - 11.0 % 06/09/2024 7:29 PM [facility] Eosinophil % 3.7 0.0 - 7.0 % 06/09/2024 7:29 PM [facility] Basophil % 0.8 0.0 - 1.6 % 06/09/2024 7:29 PM [facility] Immature Granulocytes % 0.5 0.0 - 1.0 % 06/09/2024 7:29 PM [facility] Neutrophil Absolute 4.06 1.60 - 7.50 x10E9/L 06/09/2024 7:29 PM [facility] Lymphocyte Absolute 1.78 1.00 - 4.40 x10E9/L 06/09/2024 7:29 PM [facility] Monocyte Absolute 0.41 0.15 - 1.00 x10E9/L 06/09/2024 7:29 PM [facility] Eosinophil Absolute 0.24 0.00 - 0.60 x10E9/L 06/09/2024 7:29 PM REGISTERED NURSE HH CASE MANAGER [facility] Basophil Absolute 0.05 0.00 - 0.13 x10E9/L 06/09/2024 7:29 PM [facility] Blood BLOOD SPECIMEN / Unknown Venipuncture / Unknown 06/09/2024 7:13 PM REGISTERED NURSE HH CASE MANAGER 06/09/2024 7:24 PM REGISTERED NURSE HH CASE MANAGER Maliha Tilley MD LAB - HEMATOLOGY ORD ERABLES [facility] [address] [place] [address], [facility] [[email or web address]] [phone] documented in this encounter Visit Diagnoses Diagnosis Vision loss of left eye Unqualified visual loss, one eye Elevated random blood glucose level Other abnormal glucose Cerebrospinal fluid abnormality Nonspecific abnormal finding in cerebrospinal fluid documented in this encounter Administered Medications Inactive Administered Medications - up to 3 most recent administrations Medication Order MAR Action Action Date Dose Rate Site dextrose IV 12.5 g 12.5 g, Intravenous, PRN, Other, Bedside Glucose less than 70 mg/dL -If NOT able to eat and/or NPO and with IV Access, Starting on 06/10/24 at 0506, Until 06/10/24 at 1048, If NOT able to eat and/or NPO and with IV Access: For Bedside Glucose 54-69 mg/dL give 12.5 g Dextrose IV STAT For Bedside Glucose LESS than 54 mg/dl verify with a second Bedside Glucose (from a different site) and give 25 g Dextrose IV STAT Re-check and Re-treat blood glucose EVERY , 10-25 minutes until blood glucose GREATER than or equal to 80 mg/dl. NOTIFY PROVIDER OF HYPOGLYCEMIC EVENT. dextrose IV 25 g 25 g, Intravenous, PRN, Other, Bedside Glucose less than 70 mg/dL -If NOT able to eat and/or NPO and with IV Access, Starting on 06/10/24 at 0506, Until 06/10/24 at 1048, If NOT able to eat and/or NPO and with IV Access: For Bedside Glucose LESS than 54 mg/dl verify with a second Bedside Glucose (from a different site) and give 25 g Dextrose IV STAT Re-check and Re-treat blood glucose EVERY - 10-25 minutes until blood glucose GREATER than or equal to 80 mg/dl. - If repeat bedside glucose 54-79 give 12.5 g Dextrose IV STAT NOTIFY PROVIDER OF HYPOGLYCEMIC EVENT. gadobutrol (Gadavist) injection Intravenous, CONTRAST ONCE, Starting on 06/09/24 at 2225, Until 06/10/24 at 1048 $ Given - Contrast 06/09/2024 11:15 PM REGISTERED NURSE HH CASE MANAGER 5 mL glucagon (Glucagen) injection 1 mg 1 mg, Subcutaneous, PRN, Bedside Glucose less than 70 mg/dL - If NOT able to eat and/or NPO and withOUT IV Access, Starting on 06/10/24 at 0506, Until 06/10/24 at 1048, If NOT able to eat and/or NPO and NO IV Access: For Bedside glucose 54-69 mg/dL ? - Give 1 mg subcutaneous For Bedside Glucose LESS than 54 mg/dl ? -?verify with a second bedside glucose (from a different site) ? -?Give 1 mg subcutaneous Re-check and Re-treat blood glucose EVERY 10-25 minutes until blood glucose GREATER than or equal to 80 mg/dl.? NOTIFY PROVIDER OF HYPOGLYCEMIC EVENT. Reconstitute vial with 1 mL of sterile water for injection for a final concentration of 1 mg/mL; shake vial gently; use immediately and discard unused portion glucose (Diabetic Use) oral gel Oral, PRN, Other, Bedside Glucose less than 70 mg/dL, Starting on 06/10/24 at 0506, Until 06/10/24 at 1048, If able to take oral medications: For Bedside Glucose 54 - 69 mg/dL Give 15 grams of oral carbohydrates - 1 glucose gel (see MAR) If patient refuses glucose gel, then offer: - 4 ounces of fruit juice OR - 4 ounces non-diet soda OR - 8 ounces of fat-free milk For Bedside Glucose LESS than 54 mg/dL verify with a second Bedside Glucose (from a different site) - If pt is symptomatic, do not delay treatment - If accuracy of the POC glucose is in question, confirm glucose with a STAT laboratory test Give 30 grams of oral carbohydrates - 2 glucose gels (see MAR) If patient refuses glucose gel, then offer: - 8 ounces of fruit juice OR - 8 ounces non-diet soda OR - 16 ounces of fat-free milk Re-check and Re-treat blood glucose EVERY 10-25 minutes until blood glucose GREATER than or equal to 80 mg/dl. - If on recheck, bedside glucose 54-79 mg/dL - Give 15 grams of oral carbohydrates (see above for choices) NOTIFY PROVIDER OF HYPOGLYCEMIC EVENT. insulin aspart (NovoLOG) pen 0-12 Units 0-12 Units, Subcutaneous, 3 TIMES DAILY WITH MEALS, First dose (after last modification) on 06/10/24 at 0530, Until Discontinued, Standard Dose: Correction Insulin Bedside glucose should be done within 30-60 minutes of correction insulin administration. BG (mg/dL) Corrective Action LESS than 70 follow Hypoglycemic guidelines, 70-140 NO Correction insulin, 141-180 GIVE 2 units of insulin, 181-220 GIVE 4 units of insulin, 221-260 GIVE 6 units of insulin, 261-300 GIVE 8 units of insulin, 301-350 GIVE 10 units of insulin Greater than 350 GIVE 12 units of insulin and notify physician., If the patient is NPO; DO NOT HOLD correction insulin If patient is eating meals and has orders for Mealtime insulin, combine and give at the same time. lidocaine PF (Xylocaine MPF) 1 % injection Infiltration, ONCE, 1 dose, On 06/10/24 at 0415, leave at bedside for LP $ Given 06/10/2024 4:15 AM REGISTERED NURSE HH CASE MANAGER midazolam (Versed) injection 2 mg 2 mg, Intravenous, ONCE, 1 dose, On 06/10/24 at 0415 $ Given 06/10/2024 4:15 AM REGISTERED NURSE HH CASE MANAGER 2 mg documented in this encounter Active and Recently Administered Medications Times are shown in REGISTERED NURSE HH CASE MANAGER. Scheduled Medication Order 06/08/2024 06/09/2024 06/10/2024 gadobutrol (Gadavist) injection Intravenous, CONTRAST ONCE, Starting on Wed06/09/24 at 2225, Until 06/10/24 at 1048 2315 ($ Given - Contrast - Provider: Ngoc Gonzalez) insulin aspart (NovoLOG) pen 0-12 Units 0-12 Units, Subcutaneous, 3 TIMES DAILY WITH MEALS, First dose (after last modification) on 06/10/24 at 0530, Until Discontinued, Standard Dose: Correction Insulin Bedside glucose should be done within 30-60 minutes of correction insulin administration. BG (mg/dL) Corrective Action LESS than 70 follow Hypoglycemic guidelines, 70-140 NO Correction insulin, 141-180 GIVE 2 units of insulin, 181-220 GIVE 4 units of insulin, 221-260 GIVE 6 units of insulin, 261-300 GIVE 8 units of insulin, 301-350 GIVE 10 units of insulin Greater than 350 GIVE 12 units of insulin and notify physician., If the patient is NPO; DO NOT HOLD correction insulin If patient is eating meals and has orders for Mealtime insulin, combine and give at the same time. 0530 (Not Administer ed - Provider: Samia Alonzo RN - Reason: Refused-Patient)0812 (Not Administered - Provider: Rabia Dave RN - Reason: Refused-Patient - Comment: I don't want that hospital insulin it doesn't do shit for me. ) lidocaine PF (Xylocaine MPF) 1 % injection (COMPLETED) Infiltration, ONCE, 1 dose, On 06/10/24 at 0415, leave at bedside for LP 0415 ($ Given - Prov ider: Samia Alonzo, RN - Comment: By MD Saez for procedure) midazolam (Versed) injection 2 mg (COMPLETED) 2 mg, Intravenous, ONCE, 1 dose, On 06/10/24 at 0415 0415 ($ Given - Prov ider: Samia Alonzo, RN) PRN Medication Order 06/08/2024 06/09/2024 06/10/2024 dextrose IV 12.5 g(Linked Group 1) 12.5 g, Intravenous, PRN, Other, Bedside Glucose less than 70 mg/dL -If NOT able to eat and/or NPO and with IV Access, Starting on 06/10/24 at 0506, Until 06/10/24 at 1048, If NOT able to eat and/or NPO and with IV Access: For Bedside Glucose 54-69 mg/dL give 12.5 g Dextrose IV STAT For Bedside Glucose LESS than 54 mg/dl verify with a second Bedside Glucose (from a different site) and give 25 g Dextrose IV STAT Re-check and Re-treat blood glucose EVERY , 10-25 minutes until blood glucose GREATER than or equal to 80 mg/dl. NOTIFY PROVIDER OF HYPOGLYCEMIC EVENT. dextrose IV 25 g(Linked Group 1) 25 g, Intravenous, PRN, Other, Bedside Glucose less than 70 mg/dL -If NOT able to eat and/or NPO and with IV Access, Starting on 06/10/24 at 0506, Until 06/10/24 at 1048, If NOT able to eat and/or NPO and with IV Access: For Bedside Glucose LESS than 54 mg/dl verify with a second Bedside Glucose (from a different site) and give 25 g Dextrose IV STAT Re-check and Re-treat blood glucose EVERY - 10-25 minutes until blood glucose GREATER than or equal to 80 mg/dl. - If repeat bedside glucose 54-79 give 12.5 g Dextrose IV STAT NOTIFY PROVIDER OF HYPOGLYCEMIC EVENT. glucagon (Glucagen) injection 1 mg(Linked Group 1) 1 mg, Subcutaneous, PRN, Bedside Glucose less than 70 mg/dL - If NOT able to eat and/or NPO and withOUT IV Access, Starting on 06/10/24 at 0506, Until 06/10/24 at 1048, If NOT able to eat and/or NPO and NO IV Access: For Bedside glucose 54-69 mg/dL ? - Give 1 mg subcutaneous For Bedside Glucose LESS than 54 mg/dl ? -?verify with a second bedside glucose (from a different site) ? -?Give 1 mg subcutaneous Re-check and Re-treat blood glucose EVERY 10-25 minutes until blood glucose GREATER than or equal to 80 mg/dl.? NOTIFY PROVIDER OF HYPOGLYCEMIC EVENT. Reconstitute vial with 1 mL of sterile water for injection for a final concentration of 1 mg/mL; shake vial gently; use immediately and discard unused portion glucose (Diabetic Use) oral gel Oral, PRN, Other, Bedside Glucose less than 70 mg/dL, Starting on 06/10/24 at 0506, Until 06/10/24 at 1048, If able to take oral medications: For Bedside Glucose 54 - 69 mg/dL Give 15 grams of oral carbohydrates - 1 glucose gel (see MAR) If patient refuses glucose gel, then offer: - 4 ounces of fruit juice OR - 4 ounces non-diet soda OR - 8 ounces of fat-free milk For Bedside Glucose LESS than 54 mg/dL verify with a second Bedside Glucose (from a different site) - If pt is symptomatic, do not delay treatment - If accuracy of the POC glucose is in question, confirm glucose with a STAT laboratory test Give 30 grams of oral carbohydrates - 2 glucose gels (see MAR) If patient refuses glucose gel, then offer: - 8 ounces of fruit juice OR - 8 ounces non-diet soda OR - 16 ounces of fat-free milk Re-check and Re-treat blood glucose EVERY 10-25 minutes until blood glucose GREATER than or equal to 80 mg/dl. - If on recheck, bedside glucose 54-79 mg/dL - Give 15 grams of oral carbohydrates (see above for choices) NOTIFY PROVIDER OF HYPOGLYCEMIC EVENT. Linked Groups Order Group 1: dextrose IV 12.5 gJump to med 12.5 g, Intravenous, PRN, Other, Bedside Glucose less than 70 mg/dL -If NOT able to eat and/or NPO and with IV Access, Starting on 06/10/24 at 0506, Until 06/10/24 at 1048, If NOT able to eat and/or NPO and with IV Access: For Bedside Glucose 54-69 mg/dL give 12.5 g Dextrose IV STAT For Bedside Glucose LESS than 54 mg/dl verify with a second Bedside Glucose (from a different site) and give 25 g Dextrose IV STAT Re-check and Re-treat blood glucose EVERY , 10-25 minutes until blood glucose GREATER than or equal to 80 mg/dl. NOTIFY PROVIDER OF HYPOGLYCEMIC EVENT. Or dextrose IV 25 gJump to med 25 g, Intravenous, PRN, Other, Bedside Glucose less than 70 mg/dL -If NOT able to eat and/or NPO and with IV Access, Starting on 06/10/24 at 0506, Until 06/10/24 at 1048, If NOT able to eat and/or NPO and with IV Access: For Bedside Glucose LESS than 54 mg/dl verify with a second Bedside Glucose (from a different site) and give 25 g Dextrose IV STAT Re-check and Re-treat blood glucose EVERY - 10-25 minutes until blood glucose GREATER than or equal to 80 mg/dl. - If repeat bedside glucose 54- 79 give 12.5 g Dextrose IV STAT NOTIFY PROVIDER OF HYPOGLYCEMIC EVENT. Or glucagon (Glucagen) injection 1 mgJump to med 1 mg, Subcutaneous, PRN, Bedside Glucose less than 70 mg/dL - If NOT able to eat and/or NPO and withOUT IV Access, Starting on 06/10/24 at 0506, Until 06/10/24 at 1048, If NOT able to eat and/or NPO and NO IV Access: For Bedside glucose 54- 69 mg/dL ? - Give 1 mg subcutaneous For Bedside Glucose LESS than 54 mg/dl ? -?verify with a second bedside glucose (from a different site) ? -?Give 1 mg subcutaneous Re-check and Re-treat blood glucose EVERY 10-25 minutes until blood glucose GREATER than or equal to 80 mg/dl.? NOTIFY PROVIDER OF HYPOGLYCEMIC EVENT. Reconstitute vial with 1 mL of sterile water for injection for a final concentration of 1 mg/mL; shake vial gently; use immediately and discard unused portion documented in this encounter Care Teams Electroencephalographic Technician Relationship Specialty Start Date End Date Adair Finn, TRISHA-PHOTOGRAPHY COLORIST [address] [place] [address] PCP - General Nurse Practitioner Adult Health 03/29/24 08/09/24 documented as of this encounter
--- OUTSIDE RECORDS SUMMARY | 2024-08-13 05:38 | XMS_ITS | Encounter Summary ---
Author Organization [facility] Address [facility] [place] [address] Care Team Providers Care Cryptanalyst Name Role Phone Adair Finn APRN-PROJECTION PRINTER Primary Care P rojadielder Reason for Visit * Reason Onset Date Comments Pre Authorization 07/28/2024 Dexcom G6 Peguero santhoshtter Encounter Details Date Type Department Care Team (Late Contact Info) Description 07/28/2024 Telephone [facility] - Endocrinology [address] [place] [phone] Rosalia Hair MD [address] [place] [phone] Pre Authorization (Dexcom G6 Transmitter) Social History Tobacco Use Types Packs/Day Years Used Date Smoking Tobacco: Unknown Sex and Gender Information Value Date Recorded Sex Assigned at Not on file Gender Identity Not on file Sexual Orientation Not on file documented as of this encounter Miscellaneous Notes * Telephone Encounter - Carine Khalil RN - 07/28/2024 1:57 PM CST PA for Dexcom G6 Transmitter was Denied by insurance. Pharmacy notified. NER MACHINE documented in this encounter Plan of Treatment Upcoming Encounters Date Type Department Care Team (Late Contact Info) Description 08/23/2024 10:15 AM GRAINER MACHINE Office Visit [facility] - Ophthalmology [address] [place] [address], [place] [phone] Sandeep Hernandez MD [facility] [place] [phone] 09/27/2024 9:45 AM GRAINER MACHINE Office Visit [facility] - Ophthalmology [address] [place] [phone] Buddy Fuller MD [facility] [place] [phone] 10/04/2024 1:00 PM GRAINER MACHINE [facility] [address] [place] [phone] Rosalia Hair MD [address] [facility] [place] [phone] 02/07/2025 8:30 AM CDT Office Visit [facility] - Rheumatology [address] [place] [phone] Roni Castañeda MD [facility] [phone] documented as of this encounter Visit Diagnoses Not on filedocumented in this encounter Care Teams Cryptanalyst Relationship Specialty Start Date End Date Adair Finn, TENTER FRAME OPERATOR-PROJECTION PRINTER [address] [place] [address] PCP - General Nurse Practitioner Adult Health 03/29/24 08/09/24 documented as of this encounter
--- OUTSIDE RECORDS SUMMARY | 2024-08-13 05:38 | XMS_ITS | Encounter Summary ---
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) ; Hypothyroidism, acquired Social History Tobacco Use Types Packs/Day Years Used Date Smoking Tobacco: Unknown Sex and Gender Information Value Date Recorded Sex Assigned at Not on file Gender Identity Not on file Sexual Orientation Not on file documented as of this encounter Plan of Treatment Upcoming Encounters Date Type Department Care Team (Late Contact Info) Description 08/23/2024 10:15 AM FORDER OPERATOR Office Visit [facility] - Ophthalmology [address] [place] [phone] Sandeep Hernandez MD [address] [place] [address] [place] [phone] 09/27/2024 9:45 AM FORDER OPERATOR Office Visit [facility] - Ophthalmology [address] [place] [address] [phone] Buddy Fuller MD [address] [facility] [place]PT [place] [phone] 10/04/2024 1:00 PM FORDER OPERATOR Office Visit [facility] - Endocrinology [address] [place] [address], [place] [phone] Rosalia Hair MD [address] [facility] [place] [phone] 02/07/2025 8:30 AM CDT Office Visit [facility] - Rheumatology [address] [place] [phone] Roni Castañeda MD [address] [facility] [place] [phone] Scheduled Orders Name Type Priority Associated Diagnoses Orde r Schedule TSH Lab Routine Hypothyroidism, acquired 1 Occurrences starting 07/18/2024 until 08/12/2025 documented as of this encounter Visit Diagnoses Diagnosis 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
--- OUTSIDE RECORDS SUMMARY | 2024-08-13 05:38 | XMS_ITS | Encounter Summary ---
Author Organization [facility] Address [address] [place] [place] [address] Care Team Providers Care Orthotist Name Role Phone Adair Finn APRN-ENGINEERING CONSULTANT Primary Care P rovider Reason for Visit * Reason Onset Date Comments Imaging Results 07/24/2024 Encounter Details Date Type Department Care Team (Late st Contact Info) Description 07/24/2024 Telephone [facility] Endocrinology [address] [facility] [place] [phone] Rosalia Hair MD [facility] [place] [phone] Imaging Results Social History Tobacco Use Types Packs/Day Years Used Date Smoking Tobacco: Unknown Sex and Gender Information Value Date Recorded Sex Assigned at Not on file Gender Identity Not on file Sexual Orientation Not on file documented as of this encounter Miscellaneous Notes * Telephone Encounter - Daina Cook MD - 07/24/2024 7:02 PM CST Called pt and left VM with callback phone number [employer] * Telephone Encounter - Sheree Gómez - 07/24/2024 2:20 PM CST Current Provider: Dr. Hair Reason for Call: Ms. Madeleine Mendoza needs PRIOR AUTHORIZATION for G6 Dexcom Transmitter. It was rejected and she would like to get PRIOR AUTH ZENY so she can get control of her numbers. It's not sentind msg to insulin pump/ Patient Call Back Number: [phone] [employer] documented in this encounter Plan of Treatment Upcoming Encounters Date Type Department Care Team (Late st Contact Info) Description 08/23/2024 10:15 AM DIRECTOR OF FUNDRAISING Office Visit [facility] - Ophthalmology [address] [place] [address] [phone] Sandeep Hernandez MD [address] [place] [address] [place] [phone] 09/27/2024 9:45 AM DIRECTOR OF FUNDRAISING Office Visit [facility] - Ophthalmology [address] [place] [address] [phone] Buddy Fuller MD [address] [place] [address] [place] [phone] 10/04/2024 1:00 PM DIRECTOR OF FUNDRAISING [facility] [address] [place] [phone] Rosalia Hair MD [address] [facility] [place] [phone] 02/07/2025 8:30 AM CDT Office Visit [facility] - Rheumatology [address] [place] [address] [phone] Roni Castañeda MD [address] [place] [address] [place] [phone] documented as of this encounter Visit Diagnoses Not on filedocumented in this encounter Care Teams Orthotist Relationship Specialty Start Date End Date Adair iFnn, FUR CUTTER-ENGINEERING CONSULTANT [address] [place] [address] PCP - General Nurse Practitioner Adult Health 03/29/24 08/09/24 documented as of this encounter
--- OUTSIDE RECORDS SUMMARY | 2024-08-13 05:39 | XMS_ITS | Encounter Summary ---
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 METABOLIC PANEL Routine 04/08/2024 5:57 AM CDT CBC, AUTO, NO DIFF Routine 04/08/2024 5: 57 AM CDT POCT GLUCOSE - HAMILTON DOCKED DEVICE Routine 04/07/2024 8:34 PM CDT POCT GLUCOSE - HAMILTON DOCKED DEVICE Routine 04/07/2024 3:44 PM CDT POCT GLUCOSE - HAMILTON DOCKED DEVICE Routine 04/07/2024 12:50 PM CDT CULTURE, ANAEROBIC Routine 04/07/2024 12 :22 PM CDT INCISION AND DRAINAGE ABSCESS OTHER 04/07/2024 12:03 PM CDT LEFT AXILLARY ABSCESS POCT GLUCOSE - HAMILTON DOCKED DEVICE Routine 04/07/2024 11:16 AM CDT DRUG SCREEN RAPID STAT 04/07/2024 7:0 0 AM CDT POCT GLUCOSE - HAMILTON DOCKED DEVICE Routine 04/07/2024 6:17 AM CDT POCT GLUCOSE - HAMILTON DOCKED DEVICE Routine 04/07/2024 2:02 AM CDT LACTIC ACID W REFLEX (SEPSIS) STAT 04/07/2024 1:16 AM CDT BASIC METABOLIC PANEL STAT 04/07/2024 1:16 AM CDT CBC W/DIFF AUTOMATED STAT 04/07/2024 1:16 AM CDT PATHOLOGY Routine 04/07/2024 12:00 AM CDT documented in this encounter Results * (ABNORMAL) POCT glucose (04/09/2024 11:36 AM CDT) GLUCOSE POC 383(H) 70 - 99 mg/dL 04/09/2024 11:55 AM CDT [facility] 04/09/2024 11:3 6 AM CDT Loco Caballero MD POCT ORDERABLES - DEVIC E Final Result [facility] [address] [place] [address], [place] [phone] * (ABNORMAL) POCT glucose (04/09/2024 6:41 AM CDT) GLUCOSE POC 381(H) 70 - 99 mg/dL 04/09/2024 6:43 AM CDT [facility] 04/09/2024 6:41 AM CDT us Loco Caballero MD POCT ORDERABLES - DEVIC E Final Result [facility] [address] [place] [address], [place] [phone] * (ABNORMAL) BASIC METABOLIC PANEL (04/09/2024 6:30 AM CDT) GLUCOSE 365(H) 70 - 99 MG/DL 04/09/2024 7:09 AM CDT [facility] BUN 17 7 - 18 MG/DL 04/09/2024 7:09 AM CDT [facility] CREATININE S/P/B 0.67 0.55 - 1.02 MG/DL 04/09/2024 7:09 AM CDT [facility] SODIUM S/P/B 132(L) 136 - 145 MMOL/L 04/09/2024 7:09 AM CDT [facility] POTASSIUM S/P/B 3.7 3.5 - 5.1 MMOL/L 04/09/2024 7:09 AM CDT [facility] CHLORIDE S/P/B 98 97 - 115 MMOL/L 04/09/2024 7:09 AM CDT [facility] CO2 30.9 21 - 32 MMOL/L 04/09/2024 7:09 AM CDT [facility] CALCIUM S/P/B 9.1 8.5 - 10.1 MG/DL 04/09/2024 7:09 AM CDT [facility] ANION GAP 3.1 2 - 10 MMOL/L 04/09/2024 7:09 AM CDT [facility] BUN CREATININE RATIO 25.3 6 - 26 04/09/2024 7:09 AM T [facility] GFR ESTIMATE >90 >90 ML/MIN/1.7 3 M2 04/09/2024 7:09 AM T [facility] Comment: NOTE: eGFR is not calculated for patients <18 years of age or gender unknown. This is an estimated GFR calculation using the new CKD EPI creatinine equation without race and so does not require a correction factor for race. This estimated GFR should not be used for calculating drug doses. 04/09/2024 6:30 AM CDT us Loco Caballero MD LABORATORY Final R esult [facility] [address] [place] [address], [place] [phone] * (ABNORMAL) CBC, AUTO, NO DIFF (04/09/2024 6:30 AM CDT) WBC 6.84 4.5 - 11.0 x10'3/uL 04/09/2024 7:14 AM CDT [facility] RBC 4.15(L) 4.20 - 5.40 x10'6/uL 04/09/2024 7:14 AM CDT [facility] HGB 11.4(L) 12.0 - 16.0 G/DL 04/09/2024 7:14 AM CDT [facility] HCT 36.5(L) 38.0 - 48.0 % 04/09/2024 7:14 AM CDT [facility] MCV 88.0 81.0 - 99.0 FL 04/09/2024 7:14 AM CDT [facility] MCH 27.5 27.0 - 31.0 PG 04/09/2024 7:14 AM CDT [facility] MCHC 31.2(L) 32.0 - 36.0 G/DL 04/09/2024 7:14 AM CDT [facility] RDW 14.0 11.5 - 14.5 % 04/09/2024 7:14 AM CDT [facility] PLT 544(H) 130 - 400 x10'3/uL 04/09/2024 7:14 AM CDT [facility] MPV 9.1(L) 9.3 - 12.2 FL 04/09/2024 7:14 AM CDT [facility] 04/09/2024 6:30 AM CDT Loco Caballero MD LABORATORY Final R esult [facility] [address] [place] [address], * (ABNORMAL) POCT glucose (04/08/2024 8:53 PM CDT) GLUCOSE POC 445(HH) 70 - 99 mg/dL 04/08/2024 8:55 PM CDT [facility] Comment:Notified RN 04/08/2024 8:53 PM CDT Loco Caballero MD POCT ORDERABLES - DEVIC E Final Result Performing Organization Address [facility] Co de Phone Number [facility] [address] [place] [address], * (ABNORMAL) POCT glucose (04/08/2024 4:53 PM CDT) GLUCOSE POC 489(HH) 70 - 99 mg/dL 04/08/2024 5:06 PM CDT [facility] 04/08/2024 4:53 PM CDT Loco Caballero MD POCT ORDERABLES - DEVIC E Final Result [facility] [address] [place] [address], [place] [phone] * (ABNORMAL) POCT glucose (04/08/2024 11:57 AM CDT) GLUCOSE POC 338(H) 70 - 99 mg/dL 04/08/2024 12:14 PM CDT [facility] 04/08/2024 11:5 7 AM CDT Loco Caballero MD POCT ORDERABLES - DEVIC E Final Result [facility] [address] [place] [address], [place] [phone] * (ABNORMAL) POCT glucose (04/08/2024 6:37 AM CDT) GLUCOSE POC 408(HH) 70 - 99 mg/dL 04/08/2024 6:40 AM CDT [facility] 04/08/2024 6:37 AM CDT Loco Caballero MD POCT ORDERABLES - DEVIC E Final Result Performing Organization Address [facility] Co de Phone Number [facility] [address] [place] [address], [place] [phone] * (ABNORMAL) BASIC METABOLIC PANEL (04/08/2024 5:57 AM CDT) GLUCOSE 442(HH) 70 - 99 MG/DL 04/08/2024 7:17 AM CDT [facility] Comment: Critical Result(s) Called at: 07:16:40 on 04/08/2024 by: SHARONDA VILLALBA to and read back by: HYACINTH HERNANDEZ BUN 12 7 - 18 MG/DL 04/08/2024 7:17 AM CDT [facility] CREATININE S/P/B 0.72 0.55 - 1.02 MG/DL 04/08/2024 7:17 AM CDT [facility] SODIUM S/P/B 131(L) 136 - 145 MMOL/L 04/08/2024 7:17 AM CDT [facility] POTASSIUM S/P/B 3.5 3.5 - 5.1 MMOL/L 04/08/2024 7:17 AM CDT [facility] CHLORIDE S/P/B 97 97 - 115 MMOL/L 04/08/2024 7:17 AM CDT [facility] CO2 27.8 21 - 32 MMOL/L 04/08/2024 7:17 AM CDT [facility] CALCIUM S/P/B 8.9 8.5 - 10.1 MG/DL 04/08/2024 7:17 AM CDT [facility] ANION GAP 6.2 2 - 10 MMOL/L 04/08/2024 7:17 AM CDT [facility] BUN CREATININE RATIO 16.6 6 - 26 04/08/2024 7:17 AM CDT [facility] GFR ESTIMATE >90 >90 ML/MIN/1.7 3 M2 04/08/2024 7:17 AM CDT [facility] Comment: NOTE: eGFR is not calculated for patients <18 years of age or gender unknown. This is an estimated GFR calculation using the new CKD EPI creatinine equation without race and so does not require a correction factor for race. This estimated GFR should not be used for calculating drug doses. 04/08/2024 5:57 AM CDT Loco Caballero MD LABORATORY Final R esult [facility] [address] [place] [address], [place] [phone] * (ABNORMAL) CBC, AUTO, NO DIFF (04/08/2024 5:57 AM CDT) WBC 8.33 4.5 - 11.0 x10'3/uL 04/08/2024 6:44 AM CDT [facility] RBC 4.44 4.20 - 5.40 x10'6/uL 04/08/2024 6:44 AM CDT [facility] HGB 12.1 12.0 - 16.0 G/DL 04/08/2024 6:44 AM CDT [facility] HCT 37.3(L) 38.0 - 48.0 % 04/08/2024 6:44 AM CDT [facility] MCV 84.0 81.0 - 99.0 FL 04/08/2024 6:44 AM CDT [facility] MCH 27.3 27.0 - 31.0 PG 04/08/2024 6:44 AM CDT [facility] MCHC 32.4 32.0 - 36.0 G/DL 04/08/2024 6:44 AM CDT [facility] RDW 13.7 11.5 - 14.5 % 04/08/2024 6:44 AM CDT [facility] PLT 554(H) 130 - 400 x10'3/uL 04/08/2024 6:44 AM CDT [facility] MPV 9.1(L) 9.3 - 12.2 FL 04/08/2024 6:44 AM CDT [facility] 04/08/2024 5:57 AM CDT us Loco Caballero MD LABORATORY Final R esult [facility] [address] [place] [address], [place] [phone] * (ABNORMAL) POCT glucose (04/07/2024 8:34 PM CDT) [facility] Signature GLUCOSE POC >500(HH) 70 - 99 mg/dL 04/07/2024 8:40 PM CDT [facility] 04/07/2024 8:34 PM CDT Loco Caballero MD POCT ORDERABLES - DEVIC E Final Result Performing Organization Address City/[facility]/ZIP Co de Phone Number [facility] [address] [place] [address], [place] [phone] * (ABNORMAL) POCT glucose (04/07/2024 3:44 PM CDT) GLUCOSE POC >500(HH) 70 - 99 mg/dL 04/07/2024 3:49 PM CDT [facility] 04/07/2024 3:44 PM CDT Loco Caballero MD POCT ORDERABLES - DEVIC E Final Result Performing Organization Address City/[facility]/ZIP Co de Phone Number [facility] [address] [place] [address], [place] [phone] * (ABNORMAL) POCT glucose (04/07/2024 12:50 PM CDT) GLUCOSE POC 260(H) 70 - 99 mg/dL 04/07/2024 1:55 PM CDT [facility] 04/07/2024 12:5 0 PM CDT Loco Caballero MD POCT ORDERABLES - DEVIC E Final Result [facility] [address] [place] [address], [place] [phone] * (ABNORMAL) CULTURE, ANAEROBIC (04/07/2024 12:22 PM CDT) SPEC DESCRIPTION AXILLA, LEFT 04/07/2024 12:22 PM CDT [facility] SPECIAL REQUESTS NO SPECIAL REQUEST 04/07/2024 12:22 PM CDT [facility] GRAM STAIN RESULT MANY WHITE BLOOD CELLS SEEN 04/07/2024 6:34 PM CDT [facility] GRAM STAIN RESULT MANY RED BLOOD CELLS SEEN 04/07/2024 6:34 PM CDT [facility] GRAM STAIN RESULT MANY GRAM POSITIVE COCCI 04/07/2024 6:34 PM CDT [facility] CULTURE RESULT HEAVY GROWTH OF METHICILLIN RESISTANT STAPHYLOCOCCUS AUREUS FOLLOW ISOLATION PROTOCOL. (AA) 04/12/2024 7:17 AM CDT [facility] CULTURE RESULT NOTE: ANAEROBIC CULTURES ARE ROUTINELY SCREENED FOR BOTH AEROBIC AND ANAEROBIC ORGANISMS. 04/12/2024 7:17 AM CDT [facility] WOUND STRUCTURE OF LEFT AXILLARY REGION / Unknown 04/07/2024 12:22 PM CDT Narrative Organism Antibiotic Method Susceptibility Methicillin resistant staphylococcus aureus CLINDAMYCIN REYNA (VITEK) >=8: Resistant Methicillin resistant staphylococcus aureus ERYTHROMYCIN REYNA (VITEK) >=8: Resistant Methicillin resistant staphylococcus aureus OXACILLIN REYNA (VITEK) >=4: Resistant Methicillin resistant staphylococcus aureus TRIMETH-SULFAMETH. REYNA (VITEK) >=320: Resistant Methicillin resistant staphylococcus aureus TETRACYCLINE REYNA (VITEK) <=1: Sensitive Methicillin resistant staphylococcus aureus VANCOMYCIN REYNA (VITEK) 1: Sensitive us Daisy Little MD MICROBIOLOGY - GENERAL VANESSA TOMLIN Final Result [facility] [address] [place] [address], [place] [phone] * (ABNORMAL) POCT glucose (04/07/2024 11:16 AM CDT) GLUCOSE POC 220(H) 70 - 99 mg/dL 04/07/2024 11:20 AM CDT [facility] 04/07/2024 11:1 6 AM CDT Loco Caballero MD POCT ORDERABLES - DEVIC E Final Result [facility] [address] [place] [address], [place] [phone] * (ABNORMAL) DRUG SCREEN RAPID (04/07/2024 7:00 AM CDT) [facility] AMPHETAMINE (U) POSITIVE(A) NEGATIVE 04/07/20 7:24 AM CDT [facility] BARBITURATES SCREEN (U) NEGATIVE NEGATIVE 04/07/2024 7:24 AM CDT [facility] BENZODIAZEPINES SCREEN (U) NEGATIVE NEGATIVE 04/07/2024 7:24 AM CDT [facility] CANNABINOIDS SCREEN (U) NEGATIVE NEGATIVE 04/07/2024 7:24 AM CDT [facility] COCAINE METABOLITES (U) NEGATIVE NEGATIVE 04/07/2024 7:24 AM CDT [facility] METHADONE (U) NEGATIVE NEGATIVE 04/07/2024 7:24 AM CDT [facility] OPIATE SCREEN (U) NEGATIVE NEGATIVE 024 7:24 AM CDT [facility] PHENCYCLIDINE PCP (U) NEGATIVE NEGATIVE 04/07/2024 7:24 AM CDT [facility] Comment: NOTE: RESULTS OF THIS DRUG SCREEN SHOULD BE USED FOR MEDICAL PURPOSES ONLY AND NOT FOR LEGAL OR EMPLOYMENT PURPOSES. POSITIVE RESULTS ARE NOT CONFIRMED. MEDICATIONS CONTAINING EPHEDRINE MAY CAUSE FALSE POSITIVE AMPHETAMINE CALL [phone], LAB, TO REQUEST CONFIRMATION TESTING. IF CREATININE IS <40 mg/dL. ??RECOLLECTION IS SUGGESTED. AMPHETAMINE- ?500 NG/ML BARBITURATE- ?200 NG/ML BENZODIAZEPINES- ??200 NG/ML THC- ? 50 NG/ML COCAINE- ?150 NG/ML METHADONE- ?300 NG/ML OPIATE- ? 300 MG/ML PCP- ? 25 NG/ML CREATININE (U) 29.8 28 - 217 MG/DL 04/07/2024 7:24 AM CDT [facility] URINE SPECIMEN / Unknown 04/07/2024 7:00 AM CDT Birgit Muhammad DO URINE ORDERABLES Final Resul t Performing Organization Address [facility] de Phone Number [facility] [address] [place] [address], [place] [phone] * (ABNORMAL) POCT glucose (04/07/2024 6:17 AM CDT) GLUCOSE POC 280(H) 70 - 99 mg/dL 04/07/2024 6:47 AM CDT [facility] 04/07/2024 6:17 AM CDT Loco Caballero MD POCT ORDERABLES - DEVIC E Final Result Performing Organization Address [facility] Co de Phone Number [facility] [address] [place] [address], [place] [phone] * (ABNORMAL) POCT glucose (04/07/2024 2:02 AM CDT) GLUCOSE POC 489(HH) 70 - 99 mg/dL 04/07/2024 2:05 AM CDT [facility] 04/07/2024 2:02 AM CDT Birgit Muhammad DO POCT ORDERABLES - DEVICE Fin al Result Performing Organization Address City/[facility]/ZIP Co de Phone Number [facility] [address] [place] [address], * LACTIC ACID W REFLEX (SEPSIS) (04/07/2024 1:16 AM CDT) LACTIC ACID VENOUS 1.0 0.4 - 2.0 MMOL/L 04/07/2024 1:56 AM CDT [facility] 04/07/2024 1:16 AM CDT Amanda BALL LABORATORY Final Result Performing Organization Address [facility] Co de Phone Number [facility] [address] [place] [address], [place] [phone] * (ABNORMAL) BASIC METABOLIC PANEL (04/07/2024 1:16 AM CDT) GLUCOSE 591(HH) 70 - 99 MG/DL 04/07/2024 2:01 AM CDT [facility] Comment: Critical Result(s) Called at: 01:59:53 on 04/07/2024 by: CHRISTINA CORDOVA to and read back by:ANDERS PONCE BUN 11 7 - 18 MG/DL 04/07/2024 2:01 AM CDT [facility] CREATININE S/P/B 0.85 0.55 - 1.02 MG/DL 04/07/2024 2:01 AM CDT [facility] SODIUM S/P/B 132(L) 136 - 145 MMOL/L 04/07/2024 2:01 AM CDT [facility] POTASSIUM S/P/B 3.8 3.5 - 5.1 MMOL/L 04/07/2024 2:01 AM CDT [facility] CHLORIDE S/P/B 95(L) 97 - 115 MMOL/L 04/07/2024 2:01 AM CDT [facility] CO2 29.9 21 - 32 MMOL/L 04/07/2024 2:01 AM CDT [facility] CALCIUM S/P/B 8.9 8.5 - 10.1 MG/DL 04/07/2024 2:01 AM CDT [facility] ANION GAP 7.1 2 - 10 MMOL/L 04/07/2024 2:01 AM CDT [facility] BUN CREATININE RATIO 13.0 6 - 26 04/07/2024 2:01 AM CDT [facility] GFR ESTIMATE 89(L) >90 ML/MIN/1.7 3 M2 04/07/2024 2:01 AM CDT [facility] Comment: NOTE: eGFR is not calculated for patients <18 years of age or gender unknown. This is an estimated GFR calculation using the new CKD EPI creatinine equation without race and so does not require a correction factor for race. This estimated GFR should not be used for calculating drug doses. 04/07/2024 1:16 AM CDT us Amanda BALL LABORATORY Final Result [facility] [address] [place] [address], [place] [phone] * (ABNORMAL) CBC W/DIFF AUTOMATED (04/07/2024 1:16 AM CDT) WBC 7.41 4.5 - 11.0 x10'3/uL 04/07/2024 1:48 AM CDT [facility] RBC 3.96(L) 4.20 - 5.40 x10'6/uL 04/07/2024 1:48 AM CDT [facility] HGB 11.0(L) 12.0 - 16.0 G/DL 04/07/2024 1:48 AM CDT [facility] HCT 33.5(L) 38.0 - 48.0 % 04/07/2024 1:48 AM CDT [facility] MCV 84.6 81.0 - 99.0 FL 04/07/2024 1:48 AM CDT [facility] MCH 27.8 27.0 - 31.0 PG 04/07/2024 1:48 AM CDT [facility] MCHC 32.8 32.0 - 36.0 G/DL 04/07/2024 1:48 AM CDT [facility] RDW 13.6 11.5 - 14.5 % 04/07/2024 1:48 AM CDT [facility] PLT 524(H) 130 - 400 x10'3/uL 04/07/2024 1:48 AM CDT [facility] MPV 9.4 9.3 - 12.2 FL 04/07/2024 1:48 AM CDT [facility] DIFFERENTIAL TYPE AUTOMATED DIFFERENTIAL 04/07/2024 1:48 AM CDT [facility] NEUTROPHILS % 63.5 % 04/07/2024 1:48 AM CDT [facility] LYMPHOCYTES % 21.5 % 04/07/2024 1:48 AM CDT [facility] MONOCYTES % 9.7 % 04/07/2024 1:48 AM CDT [facility] EOSINOPHILS 3.6 % 04/07/2024 1:48 AM CDT [facility] BASOPHILS 0.8 % 04/07/2024 1:48 AM CDT [facility] IMMATURE GRANS % 0.9 % 04/07/20 1:48 AM CDT [facility] ABS. NEUTROPHILS 4.70 1.80 - 7.70 x10'3/uL 04/07/2024 1:48 AM CDT [facility] ABS. LYMPHOCYTES 1.59 1.00 - 4.80 x10'3/uL 04/07/2024 1:48 AM CDT [facility] ABS. MONOCYTES 0.72 0.24 - 0.86 x10'3/uL 04/07/2024 1:48 AM CDT [facility] ABS. EOSINOPHILS 0.27 0.04 - 0.36 x10'3/uL 04/07/2024 1:48 AM CDT [facility] ABS. BASOPHILS 0.06 0.01 - 0.08 x10'3/uL 04/07/2024 1:48 AM CDT [facility] ABS. IMMATURE GRANULOCYTES 0.07 0.00 - 0.49 x10'3/uL 04/07/2024 1:48 AM CDT [facility] 04/07/2024 1:16 AM CDT Amanda BALL LABORATORY Final Result [facility] [address] [place] [address], * Pathology (04/07/2024 12:00 AM CDT) PATHOLOGY [facility] ? Department of Laboratory Medicine ?[address] ?[place] [address] ? , extension [phone] ? Pathology Report ? Surgical Pathology Report Name: ARTURO MENDOZA ?Specimen #: [id number] Age: 11 1985 (Age: 38) ?Location: [id number] Sex: F ?Procedure Date: 04/07/2024 Hospital #: [id number] ?Date Received: 04/10/2024 Date Reported: 04/11/2024 Provider: DAISY LITTLE MD ?BIRGIT MUHAMMAD DO ?LOCO CABALLERO MD ?AMANDA BALL Source: Abscess, left axilla Clinical History: Left axillary abscess. Gross Description: Received in formalin, labeled with a patient label and as left axilla abscess is a 0.0 x 1.0 x 0.8 cm piece of pale bo-yellow tissue. ??There is a small amount of possible dusky flores-bo skin identified along one edge. ??The specimen is sectioned to reveal a dusky flores-bo cut surface. ??Bag Builder tissue submitted in cassette 1. Gross examination (when applicable) was performed at [facility], [address] [place] [address]. This case was interpreted and signed out at [facility], [address] [place] [address]. FINAL DIAGNOSIS: Left axilla abscess, excision: ? Soft tissue with extensive acute inflammation, consistent with abscess. Electronically Signed Out ? AGNES ELIAS MD [facility] TISSUE STRUCTURE OF LEFT AXILLARY REGION / Unknown 04/07/2024 12:23 PM CDT us Daisy Little MD PATHOLOGY/CYTOLOGY ORDERABL ES Final Result [facility] [address] [place] [address], [id number] documented in this encounter Visit Diagnoses Diagnosis Abscess, axilla- Primary Cellulitis and abscess of upper arm and forearm Abscess of axilla, left Cellulitis and abscess of upper arm and forearm documented in this encounter Admitting Diagnoses Diagnosis Abscess, axilla Cellulitis and abscess of upper arm and forearm documented in this encounter Administered Medications Inactive Administered Medications - up to 3 most recent administrations Medication Order MAR Action Action Date Dose Rate Site doxycycline hyclate (VIBRAMYCIN) 100 mg in sodium chloride 0.9 % 100 mL IVPB 100 mg, Intravenous, at 100 mL/hr, Once, 1 dose, On Wed04/07/24 at 0145 New Bag 04/07/2024 1:56 AM CDT 100 mg 100 mL/hr doxycycline hyclate (VIBRAMYCIN) 100 mg in sodium chloride 0.9 % 100 mL IVPB 100 mg, Intravenous, at 100 mL/hr, Every 12 hours, First dose on Wed04/07/24 at 1400, Until Discontinued New Bag 04/08/2024 6:00 PM CDT 100 mg 100 mL/hr New Bag 04/08/2024 2:55 AM CDT 100 mg 100 mL/hr New Bag 04/07/2024 2:55 PM CDT 100 mg 100 mL/hr doxycycline hyclate (VIBRAMYCIN) 100 mg in sodium chloride 0.9 % 100 mL IVPB 100 mg, Intravenous, at 100 mL/hr, Every 12 hours, First dose (after last modification) on Wed04/09/24 at 0600, Until Discontinued New Bag 04/09/2024 6:24 AM CDT 100 mg 100 mL/hr insulin glargine (LANTUS) injection 12 Units 12 Units, Subcutaneous, Nightly at bedtime, First dose on Wed04/07/24 at 0145, Until Discontinued Given 04/07/2024 2:18 AM CDT 12 Units Right Lower Abdomen insulin lispro (HUMALOG) patient supplied PUMP 0-100 Units 0-100 Units, Subcutaneous, Continuous, Starting on Wed04/07/24 at 1645, Until Wed04/09/24 at 1518, Basal Rates - Pump to deliver = 0.9 units/hr 6 unit bolus with meals Correction Insulin - Programmed Sensitivity Factor(s) = 40 mg/dL (same sensitivity factor for all 24 hours); Programmed Blood Glucose (BG) Target = 150 mg/dL (same blood glucose target for all 24 hours). insulin lispro (HUMALOG/ADMELOG) injection 0-14 Units 0-14 Units, Subcutaneous, Every 6 hours, First dose on Wed04/07/24 at 0600, Until Discontinued, Blood Glucose (SENSITIVE Dosing): [Less than 70: Initiate Hypoglycemia Standing Orders] [71-140: 0 units] [141-180: 2 units] [181-220: 4 units] [221-260: 6 units] [261-300: 8 units] [301-350: 10 units] [351-400: 12 units] [Greater than 400: 14 units and Call Physician] Given 04/07/2024 6:48 AM CDT 8 Units Right Lower Abdomen insulin lispro (HUMALOG/ADMELOG) injection 0-300 Units 0-300 Units, Subcutaneous, PRN, High blood sugar, Pump refill, Starting on Wed04/07/24 at 1610, Until Wed04/09/24 at 1518, FOR PUMP RESERVOIR REFILL - Contact the pharmacy when a vial is needed. For appropriate billing, chart against this order when refilling the pump. lactated ringers infusion at 10 mL/hr, Intravenous, Continuous, Starting on Wed04/07/24 at 1030, Until Wed04/09/24 at 1518, Infuse at TKO rate, Pre-Op New Bag 04/07/2024 12:03 PM CDT levothyroxine (SYNTHROID) tablet 100 mcg 100 mcg, Oral, Daily (levothyroxine), First dose on Wed04/07/24 at 0600, Until Discontinued, Avoid iron, calcium, and antacids within 4 hours of administration. Given 04/09/2024 6:24 AM CDT 100 mcg Given 04/08/2024 5:45 AM CDT 100 mcg Given 04/07/2024 6:48 AM CDT 100 mcg documented in this encounter Active and Recently Administered Medications Times are shown in CDT. Scheduled Medication Order 04/07/2024 04/08/2024 04/09/2024 doxycycline hyclate (VIBRAMYCIN) 100 mg in sodium chloride 0.9 % 100 mL IVPB (COMPLETED) 100 mg, Intravenous, at 100 mL/hr, Once, 1 dose, On Wed04/07/24 at 0145 0156 (New Bag - Provider: Maria C Ortiz, ADONIS)0340 (Infusion Stop Time - Provider: Nicolas Cisneros RN) doxycycline hyclate (VIBRAMYCIN) 100 mg in sodium chloride 0.9 % 100 mL IVPB (CANCELED) 100 mg, Intravenous, at 100 mL/hr, Every 12 hours, First dose on Wed04/07/24 at 1400, Until Discontinued 1203 (SEP Hold - Provider: User Epic - Reason: Unreviewed Transfer Orders)1234 (SEP Unhold - Provider: User Epic)1455 (New Bag - Provider: Ariadne Mccray, Nurse Student)1527 (Infusion Stop Time - Provider: Hyacinth Hernandez, RN) 0255 (New Bag - Provider: Wandy Moura RN)0401 (Infusion Stop Time - Provider: Wandy Moura RN)1644 (Infusion Stop Time - Provider: Hyacinth Hernandez, RN)1800 (New Bag - Provider: Hyacinth Hernandez RN)1927 (Infusion Stop Time - Provider: Yarely Jalloh, ADONIS) doxycycline hyclate (VIBRAMYCIN) 100 mg in sodium chloride 0.9 % 100 mL IVPB 100 mg, Intravenous, at 100 mL/hr, Every 12 hours, First dose (after last modification) on Wed04/09/24 at 0600, Until Discontinued 06 (New Bag - Provider: Yarely Jalloh, RN)0730 (Infusion Stop Time - Provider: Aleah Power RN) insulin glargine (LANTUS) injection 12 Units (CANCELED) 12 Units, Subcutaneous, Nightly at bedtime, First dose on Wed04/07/24 at 0145, Until Discontinued 0218 (Given - Provider: Maria C Ortiz RN)1203 (SEP Hold - Provider: User Epic - Reason: Unreviewed Transfer Orders)1234 (MAR Unhold - Provider: User Epic) insulin lispro (HUMALOG/ADMELOG) injection 0-14 Units (CANCELED) 0-14 Units, Subcutaneous, Every 6 hours, First dose on Wed04/07/24 at 0600, Until Discontinued, Blood Glucose (SENSITIVE Dosing): [Less than 70: Initiate Hypoglycemia Standing Orders] [71-140: 0 units] [141-180: 2 units] [181-220: 4 units] [221-260: 6 units] [261-300: 8 units] [301-350: 10 units] [351-400: 12 units] [Greater than 400: 14 units and Call Physician] 0648 (Given - Provider: Nicolas Cisneros RN)1203 (MAR Hold - Provider: User Epic - Reason: Unreviewed Transfer Orders)1234 (MAR Unhold - Provider: User Epic)1355 (Not Given - Provider: Hyacinth Hernandez RN - Reason: Other) levothyroxine (SYNTHROID) tablet 100 mcg 100 mcg, Oral, Daily (levothyroxine), First dose on Wed04/07/24 at 0600, Until Discontinued, Avoid iron, calcium, and antacids within 4 hours of administration. 0648 (Given - Provider: Nicolas Cisneros RN)1203 (SEP Hold - Provider: User Epic - Reason: Unreviewed Transfer Orders)1234 (SEP Unhold - Provider: User Epic) 0545 (Given - Provider: Wandy Moura RN) 0624 (Given - Provider: Yarely Jalloh RN) Continuous Medication Order 04/07/2024 04/08/2024 04/09/2024 insulin lispro (HUMALOG) patient supplied PUMP 0-100 Units 0-100 Units, Subcutaneous, Continuous, Starting on Wed04/07/24 at 1645, Until Wed04/09/24 at 1518, Basal Rates - Pump to deliver = 0.9 units/hr 6 unit bolus with meals Correction Insulin - Programmed Sensitivity Factor(s) = 40 mg/dL (same sensitivity factor for all 24 hours); Programmed Blood Glucose (BG) Target = 150 mg/dL (same blood glucose target for all 24 hours). 1717 (Continued to Floor - Provider: Hyacinth Hernandez RN - Comment: patient is controlling insulin pump and dexMD hai aware.) lactated ringers infusion at 10 mL/hr, Intravenous, Continuous, Starting on Wed04/07/24 at 1030, Until Wed04/09/24 at 1518, Infuse at TKO rate, Pre-Op 1203 (New Bag - Provider: Rima Charles CRNA)1229 (Anesthesia Volume Adjustment - Provider: Rima Charles CRNA) PRN Medication Order 04/07/2024 04/08/2024 04/09/2024 HYDROcodone-acetaminophen (NORCO) 5-325 MG tablet 1 tablet 1 tablet, Oral, Every 6 hours PRN, Moderate pain (Scale 4 - 7), Starting on Wed04/07/24 at 0140, Until Wed04/09/24 at 1518, Maximum dose of acetaminophen is 4000 mg from all sources in 24 hours. 1203 (SEP Hold - Provider: User Epic - Reason: Unreviewed Transfer Orders)1234 (SEP Unhold - Provider: User Epic) insulin lispro (HUMALOG/ADMELOG) injection 0-300 Units 0-300 Units, Subcutaneous, PRN, High blood sugar, Pump refill, Starting on Wed04/07/24 at 1610, Until Wed04/09/24 at 1518, FOR PUMP RESERVOIR REFILL - Contact the pharmacy when a vial is needed. For appropriate billing, chart against this order when refilling the pump. naLOXone (NARCAN) injection 0.4 mg 0.4 mg, Intravenous, As needed, Opioid reversal, Starting on Wed04/07/24 at 0140, Until 04/09/24 at 1518 1203 (MAR Hold - Provider: User Epic - Reason: Unreviewed Transfer Orders)1234 (MAR Unhold - Provider: User Epic) ondansetron (ZOFRAN) injection 4 mg 4 mg, Intravenous, Every 8 hours PRN, Nausea, Vomiting, Starting on 04/07/24 at 0140, Until 04/09/24 at 1518, IV push over 2-5 minutes. 1203 (MAR Hold - Provider: User Epic - Reason: Unreviewed Transfer Orders)1234 (MAR Unhold - Provider: User Epic) documented in this encounter Additional Health Concerns Infection Onset Date Last Indicated Resolved Time MRSA Comment:04/03/24 +MRSA Left axilla 04/07/24 +MRSA Left axilla 04/03/2024 04/07/2024 documented as of this encounter Care Teams Inspector Final Assembly Mechanical Relationship Specialty [place] [id number] [facility] [address] [place] [address] PCP - General INTERNAL MEDICINE 02/22/24 07/09/24 Rosalia Garcia MD [address] [facility] [phone] Consulting Physician ENDOCRINOLOGY 03/29/24 documented as of this encounter
--- OUTSIDE RECORDS SUMMARY | 2024-08-13 05:39 | XMS_ITS | Encounter Summary ---
Author Organization [facility] Address [address] [place] [address] Care Team Providers Care Collarette Separator Name Role Phone Adair Finn APRN-DRIFTMAN Primary Care P rovider Joesph Jacobo MD Primary Care Provider [phone] Reason for Visit * Reason Comments Refill Request Encounter Details Date Type Department Care Team (Late st Contact Info) Description 03/31/2024 Refill [facility] - Endocrinology [address] [place] [address], [facility] [place] [phone] Rosalia Hair MD [address] [place] [phone] Refill Request Social History Tobacco Use Types Packs/Day Years Used Date Smoking Tobacco: Never Assessed Sex and Gender Information Value Date Recorded Sex Assigned at Not on file Gender Identity Not on file Sexual Orientation Not on file documented as of this encounter Miscellaneous Notes * Telephone Encounter - Katarzyna Friedman LPN - 03/31/2024 1:19 PM CDT Refill Request Madeleine Mendoza Recent Visits Date Type Provider Dept 03/29/24 Office Visit Rosalia Hair MD [facility] Showing recent visits within past 540 days with a meds authorizing provider and meeting all other requirements Future Appointments Date Type Provider Dept 04/18/24 Appointment Bry Berrios MD [facility] Showing future appointments within next 150 days with a meds authorizing provider and meeting all other requirements Allergies: No Known Allergies Pended Medication Order: Requested Prescriptions Pending Prescriptions Disp Refills insulin lispro (HumaLOG) 100 UNIT/ML vial [Pharmacy Med Name: INSULIN LISPRO 100U/ML VIAL 10ML] 80 mL Sig: INJECT 80 UNITS UNDER THE SKIN VIA CONTINUOUS INFUSION DAILY documented in this encounter Plan of Treatment Upcoming Encounters Date Type Department Care Team (Late st Contact Info) Description 08/23/2024 10:15 AM GROUP EXERCISE CLASS INSTRUCTOR Office Visit [facility] - Ophthalmology [address] [place] [phone] Sandeep Hernandez MD [address] [place] [address] [place] [phone] 09/27/2024 9:45 AM GROUP EXERCISE CLASS INSTRUCTOR [facility] Ophthalmology [address] [place] [phone] Buddy Fuller MD [address] [place] [address] [place] [phone] 10/04/2024 1:00 PM GROUP EXERCISE CLASS INSTRUCTOR Office Visit [facility] - Endocrinology [address] [place] [phone] Rosalia Hair MD [facility] [place] [phone] 02/07/2025 8:30 AM CDT Office Visit [facility] - Rheumatology [address] [place] [phone] Roni Castañeda MD [address] [place] [address] [place] [phone] documented as of this encounter Visit Diagnoses Not on filedocumented in this encounter Care Teams Collarette Separator Relationship Specialty Start Date End Date Adair Finn, QUALITY ASSURANCE DIRECTOR-DRIFTMAN [address] [place] [address] PCP - General Nurse Practitioner Adult Health 03/29/24 08/09/24 Joesph Jacobo MD [address] [place] [phone] PCP - General Internal Medicine 08/10/24 documented as of this encounter
--- OUTSIDE RECORDS SUMMARY | 2024-08-13 05:39 | XMS_ITS | Encounter Summary ---
Author Organization [facility] Address [address] [place] [address]. [place], [place] [address] [place] [address] Care Team Providers Care Director Of Regulatory Affairs Name Role Phone Joesph Jacobo MD Primary Care Provider [phone] Encounter Details Date Type Department Care Team (Latest Contact Info) Description 06/08/2024 Travel Social History Tobacco Use Types Packs/Day Years Used Date Smoking Tobacco: Some Days Cigarettes 0.5 15 Smokeless Tobacco: Current Alcohol Use Standard Drinks/Week Comments Not Currently 0 (1 standard drink = 0.6 oz pur e alcohol) [facility] Utilities Answer Date Recorded In the past 12 months has e electric, gas, oil, or water company threatened to [...] any time in the past 12 m [facility], were you homeless or living in a penitentiary (including now)? No 04/07/2024 Comments No Sex and Gender Information Value Date Recorded Sex Assigned at Not on file Legal Sex Female 7:10 PM CDT Gender Identity Not on file Sexual Orientation Not on file documented as of this encounter Functional Status * Are you deaf or do you have serious difficulty hearing Answer Date of Assessment Author Status No 04/07/2024 3:27 AM Nicolas Green RN Active * Are you blind or [...] Assessment Author Status No 04/07/2024 3:27 AM CDT Nicolas Cisneros RN Active documented as of this encounter Mental Status * Because of a physical, mental, or emotional condition, do you have serious difficulty concentrating, remembering, or making decisions? Answer Entry Date Author Status No 04/07/2024 3:27 AM CDT Nicolas Cisneros RN Active documented in this encounter Plan of Treatment Not on file documented as of this encounter Goals Goal Patient Goal Type Associated Problems Recent Progress Patient-Stated? Author Health - patient able to perform ADLs independently Lifestyle No Koerkenme i er, Kole Villalobos RN documented as of this encounter Visit Diagnoses Not on filedocumented in this encounter Additional Health Concerns Infection Onset Date Last Indicated Resolved Time MRSA Comment:04/03/24 +MRSA Left axilla 04/07/24 +MRSA Left axilla 04/03/2024 04/07/2024 Assessment Noted Time PHQ-9 Depression Total Score: 2 04/10/20 3:21 PM CDT documented as of this encounter Care Teams Director Of Regulatory Affairs Relationship Specialty Start [place] [address] [place] [address] PCP - General INTERNAL MEDICINE 02/22/24 07/09/24 Rosalia Garcia MD [facility] [place] [place] [phone] Consulting Physician ENDOCRINOLOGY 03/29/24 documented as of this encounter
--- OUTSIDE RECORDS SUMMARY | 2024-08-13 05:39 | XMS_ITS | Encounter Summary ---
Author Organization [facility] Address [facility] [place] [address] Care Team Providers Care Clarifier Name Role Phone Adair Finn APRN-PATTERN STAMPER Primary Care P rovaleri Encounter Details Date Type Department Care Team (Latest Contact Info) Description 03/29/2024 Travel Social History Tobacco Use Types Packs/Day Years Used Date Smoking Tobacco: Never Assessed Sex and Gender Information Value Date Recorded Sex Assigned at Not on file Gender Identity Not on file Sexual Orientation Not on file documented as of this encounter Plan of Treatment Upcoming Encounters Date Type Department Care Team (Late st Contact Info) Description 08/23/2024 10:15 AM RESIDENCE SUPERVISOR Office Visit [facility] - Ophthalmology [address] [place] [phone] Sandeep Hernandez MD [address] [place] [address] [place] [address] 09/27/2024 9:45 AM RESIDENCE SUPERVISOR Office Visit [facility] - Ophthalmology [address] [place] [phone] Buddy Fuller MD [address] [place] [address] [place] [phone] 10/04/2024 1:00 PM RESIDENCE SUPERVISOR Office Visit [facility] - Endocrinology [address] [place] [phone] Rosalia Hair MD [address] [facility] [place] [phone] 02/07/2025 8:30 AM CDT Office Visit [facility] - Rheumatology [facility], [place] [phone] Roni Castañeda MD [address] [facility] [place] [phone] documented as of this encounter Visit Diagnoses Not on filedocumented in this encounter Care Teams Clarifier Relationship Specialty Start Date End Date Adair Finn, TRISHA-PATTERN STAMPER [address] [place] [address] PCP - General Nurse Practitioner Adult Health 03/29/24 08/09/24 documented as of this encounter
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
--- OUTSIDE RECORDS SUMMARY | 2024-08-13 05:39 | XMS_ITS | Encounter Summary ---
Author Organization [facility] Address [address] [place] [address]. [place], [place] [id number] [place] [address] Care Team Providers Care Pick Up Driver Name Role Phone Joesph Jacobo MD Primary Care Provider [phone] Encounter Details Date Type Department Care Team (Late st Contact Info) Description 04/18/2024 Neurodyn Message Enc [facility] Family & Internal Medicine [address] [address] Bobby, [facility] Provider surgical clearance Social History Tobacco Use Types Packs/Day Years Used Date Smoking Tobacco: Some Days Cigarettes 0.5 15 Smokeless Tobacco: Current Alcohol Use Standard Drinks/Week Comments Not Currently 0 (1 standard drink = 0.6 oz pur e alcohol) [facility] Utilities Answer Date Recorded In the past 12 months has e [employer], gas, oil, or water [employer] threatened to shut off services in your [...] any time in the past 12 m [facility], were you homeless or living in a [facility] (including now)? No 04/07/2024 Comments No Sex [...] AM CDT Nicolas Cisneros RN Active * Because of [...] Cisneros RN Active documented in this encounter Progress Notes * Ana Luisa Meadows RN - 04/18/2024 1:48 PM CDT Please review and advise. documented in this encounter Plan of Treatment Not on file documented as of this encounter Goals Goal Patient Goal Type Associated Problems Recent Progress Patient-Stated? Author Health - patient able to perform ADLs independently Lifestyle No Koermaria i er, Kole Villalobos RN documented as of this encounter Visit Diagnoses Not on filedocumented in this encounter Additional Health Concerns Infection Onset Date Last Indicated Resolved Time MRSA Comment:04/03/24 +MRSA Left axilla 04/07/24 +MRSA Left axilla 04/03/2024 04/07/2024 Assessment Noted Time PHQ-9 Depression Total Score: 2 04/10/20 3:21 PM CDT documented as of this encounter Care Teams Pick Up Driver Relationship Specialty [place] [id number] [facility] [address] [place] [address] PCP - General INTERNAL MEDICINE 02/22/24 07/09/24 Rosalia Garcia MD [facility] [place] [phone] Consulting Physician ENDOCRINOLOGY 03/29/24 documented as of this encounter
--- OUTSIDE RECORDS SUMMARY | 2024-08-13 05:39 | XMS_ITS | Encounter Summary ---
Author Organization [facility] Address [address] [facility] [place] [address] Care Team Providers Care Oracle Bpm Consultant Name Role Phone Adair Finn APRN-TELEPHONE APPOINTMENT CLERK Primary Care P rojadielder Encounter Details Date Type Department Care Team (Late Contact Info) Description 05/02/2024 Orders Only [facility] - Endocrinology [address] [place] [phone] Rosalia Hair MD [facility] [facility] [place] [phone] Social History Tobacco Use Types Packs/Day Years Used Date Smoking Tobacco: Never Assessed Sex and Gender Information Value Date Recorded Sex Assigned at Not on file Gender Identity Not on file Sexual Orientation Not on file documented as of this encounter Plan of Treatment Upcoming Encounters Date Type Department Care Team (Late Contact Info) Description 08/23/2024 10:15 AM NITROGLYCERIN NEUTRALIZER Office Visit [facility] - Ophthalmology [address] [place] [phone] Sandeep Hernandez MD [address] [place] [address] [place] [phone] 09/27/2024 9:45 AM NITROGLYCERIN NEUTRALIZER Office Visit [facility] - Ophthalmology [address] [place] [phone] Buddy Fuller MD [address] [facility] DEPT [place] [phone] 10/04/2024 1:00 PM NITROGLYCERIN NEUTRALIZER Office Visit [facility] - Endocrinology [address] [place] [address], [place] [phone] Rosalia Hair MD [address] [facility] [place] [address] 02/07/2025 8:30 AM CDT Office Visit [facility] - Rheumatology [address] [place] [phone] Roni Castañeda MD [address] [facility] [place] [address] documented as of this encounter Visit Diagnoses Not on filedocumented in this encounter Care Teams Oracle Bpm Consultant Relationship Specialty Start Date End Date Adair Finn, TEACHER CCLC-TELEPHONE APPOINTMENT CLERK [address] [place] [address] PCP - General Nurse Practitioner Adult Health 03/29/24 08/09/24 documented as of this encounter
--- OUTSIDE RECORDS SUMMARY | 2024-08-13 05:39 | XMS_ITS | Encounter Summary ---
Author Organization [facility] Address [address] [place] [address]. [place], [place] [address] [place] [address] Care Team Providers Care Electronic Musical Instrument Repairer Name Role Phone Joesph Jacobo MD Primary Care Provider [phone] Reason for Visit * Reason Onset Date Comments TCM 04/10/2024 Encounter Details Date Type Department Care Team (Late st Contact Info) Description 04/10/2024 Telephone [facility] Family & Internal Medicine [facility] [address] [place] [address] [place] [address] [facility] [address] [place] [address] TCM Social History Tobacco Use Types Packs/Day Years Used Date Smoking Tobacco: Some Days Cigarettes 0.5 15 Smokeless Tobacco: Current Alcohol Use Standard Drinks/Week Comments Not Currently 0 (1 standard drink = 0.6 oz pur e alcohol) [facility] Utilities Answer Date Recorded In the past 12 months has [employer], gas, oil, or water [employer] threatened to shut off services in your [...] any time in the past 12 m [facility], were you homeless or living in a retirement (including now)? No 04/07/2024 Comments No Sex [...] AM CDT Nicolas Cisneros RN Active * Do you [...] Notes * Ana Luisa Meadows RN - 04/10/2024 9:40 AM CDT Message left for patient to return call. She has an appointment with Lily Thompson today at 3 pm and this was initially a surgical clearance-now it will be a TCM. She will need to reschedule a surgical clearance with Dr Horner. documented in this encounter Plan of Treatment Not on file documented as of this encounter Goals Goal Patient Goal Type Associated Problems Recent Progress Patient-Stated? Author Health - patient able to perform ADLs independently Lifestyle No Koermaria i libby, Kole Villalobos RN documented as of this encounter Visit Diagnoses Not on filedocumented in this encounter Additional Health Concerns Infection Onset Date Last Indicated Resolved Time MRSA Comment:04/03/24 +MRSA Left axilla 04/07/24 +MRSA Left axilla 04/03/2024 04/07/2024 Assessment Noted Time PHQ-9 Depression Total Score: 2 04/10/20 24 3:21 PM CDT documented as of this encounter Care Teams Electronic Musical Instrument Repairer Relationship Specialty [place] [address] [address] PCP - General INTERNAL MEDICINE 02/22/24 07/09/24 Rosalia Garcia MD [facility] [address] [facility] [place] [address] Consulting Physician ENDOCRINOLOGY 03/29/24 documented as of this encounter
--- OUTSIDE RECORDS SUMMARY | 2024-08-13 05:39 | XMS_ITS | Encounter Summary ---
Author Organization [facility] Address [address] [place] [address]. [place], [place] [address] [place] [address] Care Team Providers Care Tray Drier Operator Name Role Phone Jennifer Ramirez MD Primary Care Provider [phone] Reason for Visit * Reason Comments Establish Care Needing clearance to have surgery on right eye by Dr. Paulson Encounter Details Date Type Department Care Team (Late st Contact Info) Description 06/19/2024 2:20 PM LEAD ETL DEVELOPER Office Visit [facility] Family & Internal Medicine [address] [phone] [place] [id number] [place] [address] [address] [place] [address] Establish Care (Needing clearance to have surgery on right eye by Dr. Paulson ) Social History Tobacco Use Types Packs/Day Years Used Date Smoking Tobacco: Some Days Cigarettes 0.5 15 Smokeless Tobacco: Current Tobacco Cessation:Ready to Q uit: Yes; Counseling Given: Yes Alcohol Use Standard Drinks/Week Comments Not Currently 0 (1 standard drink = 0.6 oz pur e alcohol) [facility] Utilities Answer Date Recorded In the past [...] Answer Date Recorded Patient Health Questionnaire-2 Score 2 06/19/2024 Hunger Vital Sign Answer Date Recorded Within [...] any time in the past 12 m [facility], were you homeless or living in a prison (including now)? No 04/07/2024 Comments No Sex and Gender Information Value Date Recorded Sex Assigned at Not on file Legal Sex Female 7:10 PM CDT Gender Identity Not on file Sexual Orientation Not on file documented as of this encounter Last Filed Vital Signs Vital Sign Reading Time Taken Comments Blood Pressure 114/75 06/19/2024 2:20 PM LEAD ETL DEVELOPER Pulse 91 06/19/2024 2:20 PM LEAD ETL DEVELOPER Temperature 37.2 ??C (98.9 ??F) 06/19/2024 2:20 PM CS T Respiratory Rate 18 06/19/2024 2:20 PM LEAD ETL DEVELOPER Oxygen Saturation 100% 06/19/2024 2:20 PM LEAD ETL DEVELOPER Inhaled Oxygen Concentration - - Weight 57.3 kg (126 lb 6.4 oz) 06/19/2024 2:20 P M LEAD ETL DEVELOPER Height 160 cm (5' 3 ) 06/19/2024 2:20 PM LEAD ETL DEVELOPER Body Mass Index 22.39 06/19/2024 2:20 PM LEAD ETL DEVELOPER documented in this encounter Functional Status * [...] documented in this encounter Progress Notes * Jennifer Ramirez MD - 06/19/2024 2:20 PM CST Reason for Visit: Establish Care (Needing clearance to have surgery on right eye by Dr. 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 Here to establish care with a new PCP , also wants clearance for R/cataract eye scheduled on 06/26/24 per the pt She was seen at [facility] for sudden loss of vision on 06/10/24 and was told intracranial hypertension and scheduled to see Neuroophthalmologic in Jul for ?consideration of acetazolamide per the pt (compression optic nerve due to pressure it seems). Pt had L/eye cataract done in January. R/eye almost blind except hand movement per the pt. Per the pt BS now 'readable' >250s per her Dexcom 'not giving boluses' Denies use street drugs lately. 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 Denies having exertional chest discomfort SOB The patient reported experiencing a gradual onset of vision loss, initially on the left side due tohigh blood sugar levels, and later in the right eye, which is now described as hand motion blindness. The vision loss was attributed to pressure on the optic nerve and cataracts. The patient also mentioned intermittent swelling related to idiopathic intracranial hypertension, which is believed razia unrelated to the cataracts. The patient noted a history of uncontrolled blood sugar levels with an A1C as high as 14.6 in June 2023. The patient has experienced multiple hospitalizations for diabetic ketoacidosis (DKA) and stated that blood sugar levels have been improving gradually. The niranjan ent reported not having chest pain, chest pressure, or shortness of breath and does not use an inhaler. The patient mentioned taking levothyroxine for thyroid management and fast-acting insulin via apump. Social history includes a past history of amphetamine use, currently on Adderall PRN, and a historyof smoking. Pertinent negatives include no recent drug use and no current inhaler use. ROS: Review of Systems Constitutional: Negative for fever and unexpected weight change. Respiratory: Negative for cough and shortness of breath. Cardiovascular: Negative for chest pain, palpitations and leg swelling. Gastrointestinal: Negative for abdominal pain and vomiting. Genitourinary: Negative for difficulty urinating. Medications: Current Outpatient Medications: Continuous Glucose Sensor (DEXCOM G6 SENSOR) Misc, , Disp: , Rfl: Continuous Glucose Transmitter (DEXCOM G6 TRANSMITTER) Misc, , Disp: , Rfl: HUMALOG 100 UNIT/ML injection (VIAL), INJECT 80 UNITS UNDER THE SKIN VIA CONTINUOUS INFUSION DAILY,Disp: , Rfl: Insulin Disposable Pump (OMNIPOD 5 G6 PODS, GEN 5,) Misc, USE AND CHANGE EVERY 48 HOURS, Disp: , Rfl: levothyroxine (SYNTHROID) 100 MCG tablet, Take 1 tablet (100 mcg total) by mouth every morning., Disp: , Rfl: Review of patient's allergies indicates: No Known Allergies Past Medical History: Diagnosis Date Anemia Cataract Diabetes mellitus (CMS/HCC HHS/HCC) Disease of thyroid [...] Sexual activity: Not Currently control/protection: Surgical Social Drivers of Health Financial Resource Strain: Low Risk [...] 0 Homeless in the Last Year: No E-Cigarettes Questions Responses E-Cigarette Use Never User E-cigarette/Vaping Substances Questions Responses Nicotine No CBD No E-cigarette/Vaping Devices Questions Responses Disposable No Refillable Tank No Family History Problem Relation Name Age of Onset Stroke Father Caleb Diabetes Father Caleb Hypertension Father Caleb Diabetes Sister Elke ALS Maternal Grandfather Family Status Relation Name Status Father Caleb (Not Specified) Sister Elke (Not Specified) MGF (Not Specified) No partnership data on file Physical Exam Vitals and nursing note reviewed. Constitutional: Appearance: Normal appearance. HENT: Head: Normocephalic and atraumatic. Cardiovascular: Rate and Rhythm: Normal rate. Pulses: Normal pulses. Heart sounds: Normal heart sounds. Pulmonary: Effort: Pulmonary effort is normal. Breath sounds: Normal breath sounds and air entry. Abdominal: General: Bowel sounds are normal. Palpations: Abdomen is soft. Musculoskeletal: Cervical back: Neck supple. Neurological: Mental Status: She is alert and oriented to person, place, and time. 06/19/2024 PHQ2/PHQ 9 DEPRESSION SCREEN QUESTIONAIRE Little interest or pleasure in doing things Several days Feeling down, depressed, or hopeless Several days Patient Health Questionnaire-2 Score 2 Trouble falling or staying asleep, or sleeping too much Several days Feeling tired or having little energy Several days Poor appetite or overeating Several days Feeling bad about yourself - or that you are a failure or have let yourself or your family down Several days Trouble concentrating on things, such as reading the newspaper or watching television Several days Moving or speaking so slowly that other people could have noticed? Or the opposite - being so fidgety or restless that you have been moving around a lot more than usual. Not at all Thoughts that you would be better off or hurting yourself in some way Not at all Patient Health Questionnaire-9 Score 7 How difficult have these problems made it for you to do your work, take care of things at home, or get along with other people? Not difficult at all Filed Vitals: 06/19/24 1420 BP: 114/75 Pulse: 91 Resp: 18 Temp: 98.9 ??F (37.2 ??C) TempSrc: Temporal SpO2: 100% Weight: 57.3 kg (126 lb 6.4 oz) Height: 1.6 m (5' 3 ) Assessment and Plan: 1. Hypothyroidism, unspecified type (Primary) Under care by Endo On LT 100mcg daily - TSH W/REFLEX; Future - TSH W/REFLEX 2. Tobacco use Recommend slow down and quit the habit- 1/2 PPD 3. 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 The patient's management with Omnipod and Dexcom has shown improvement, though current bloodsugar levels remain high. - COMPREHENSIVE METABOLIC PANEL; Future - LIPID PANEL; Future - TSH W/REFLEX; Future - ALBUMIN URINE RANDOM W/CREATININE; Future - HEMOGLOBIN, GLYCOSYLATED; Future - CBC W/DIFF AUTOMATED; Future - COMPREHENSIVE METABOLIC PANEL - LIPID PANEL - TSH W/REFLEX - ALBUMIN URINE RANDOM W/CREATININE - HEMOGLOBIN, GLYCOSYLATED - CBC W/DIFF AUTOMATED 4. Pre-operative clearance Aware to get clearance per the Endo too unless A1c in a better range- aware the healing will be poor - COMPREHENSIVE METABOLIC PANEL; Future - HEMOGLOBIN, GLYCOSYLATED; Future - CBC W/DIFF AUTOMATED; Future - COMPREHENSIVE METABOLIC PANEL - HEMOGLOBIN, GLYCOSYLATED - CBC W/DIFF AUTOMATED 5. Poor vision Under care by Retina specialist also scheduled to see Neuro retail sales specialist (Idiopathic intracranial hypertension: The patient has reported swelling causing pressure on the optic nerve, contributing to vision issues. ) Reviewed and updated this visit by provider: Tobacco Allergies Meds Problems Med Hx Surg Hx Fam Hx Return in about 3 months (around 09/19/2024). 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 ([facility] HHS/HCC) Expected: 06/19/2024, Expires: 06/19/2025 TSH W/REFLEX Lab Routine Hypothyroidism, unspecified type 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 ([facility] HHS/HCC) Expected: 06/19/2024, Expires: 06/19/2025 ALBUMIN URINE RANDOM W/CREATININE Lab Routine 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 ([facility] HHS/HCC) Expected: 06/19/2024, Expires: 06/19/2025 HEMOGLOBIN, GLYCOSYLATED Lab Routine 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, not stated as uncontrolled Pre-operative clearance Preoperative examination, unspecified Poor vision Unspecified visual loss documented in this encounter Additional Health Concerns Infection Onset Date Last Indicated Resolved Time MRSA Comment:04/03/24 +MRSA Left axilla 04/07/24 +MRSA Left axilla 04/03/2024 04/07/2024 Assessment Noted Time PHQ-9 Depression Total Score: 7 06/19/20 24 3:39 PM LEAD ETL DEVELOPER documented as of this encounter Care Teams Tray Drier Operator Relationship Specialty [place] [address] [facility] [address] [place] [address] PCP - General INTERNAL MEDICINE 02/22/24 07/09/24 Rosalia Garcia MD [address] [facility] [place] [phone] Consulting Physician ENDOCRINOLOGY 03/29/24 documented as of this encounter
--- OUTSIDE RECORDS SUMMARY | 2024-08-13 05:39 | XMS_ITS | Encounter Summary ---
Author Organization [facility] Address [facility] [place] [address] Care Team Providers Care Hoe Worker Name Role Phone Adair Finn APRN-YARDER Primary Care P rojadielder Encounter Details Date Type Department Care Team (Latest Contact Info) Description 06/01/2024 Travel Social History Tobacco Use Types Packs/Day Years Used Date Smoking Tobacco: Never Assessed Sex and Gender Information Value Date Recorded Sex Assigned at Not on file Gender Identity Not on file Sexual Orientation Not on file documented as of this encounter Plan of Treatment Upcoming Encounters Date Type Department Care Team (Late st Contact Info) Description 08/23/2024 10:15 AM LOFTER Office Visit [facility] - Ophthalmology [address] [place] [phone] Sandeep Hernandez MD [address] [place] [address] [place] [address] 09/27/2024 9:45 AM LOFTER Office Visit [facility] - Ophthalmology [address] [place] [phone] Buddy Fuller MD [address] [place] [address] [place] [phone] 10/04/2024 1:00 PM LOFTER Office Visit [facility] - Endocrinology [address] [place] [phone] Rosalia Hair MD [address] [facility] [place] [phone] 02/07/2025 8:30 AM CDT Office Visit [facility] - Rheumatology [facility] [place] [phone] Roni Castañeda MD [address] [facility] [place] [phone] documented as of this encounter Visit Diagnoses Not on filedocumented in this encounter Care Teams Hoe Worker Relationship Specialty Start Date End Date Adair Finn, TRISHA-YARDER [address] [place] [address] PCP - General Nurse Practitioner Adult Health 03/29/24 08/09/24 documented as of this encounter
--- OUTSIDE RECORDS SUMMARY | 2024-08-13 05:39 | XMS_ITS | Encounter Summary ---
Author Organization [facility] Address [address] [facility] [place] [address] Care Team Providers Care Human Resources Coordinator Name Role Phone Adair Finn APRN-TAX EXAMINER Primary Care P rojadielder Reason for Visit * Reason Comments Refill Request Encounter Details Date Type Department Care Team (Late Contact Info) Description 04/25/2024 Refill [facility] - Endocrinology [address] [place] [phone] Bry Berrios MD [address] [facility] [address] [place] [address] Refill Request Social History Tobacco Use Types Packs/Day Years Used Date Smoking Tobacco: Never Assessed Sex and Gender Information Value Date Recorded Sex Assigned at Not on file Gender Identity Not on file Sexual Orientation Not on file documented as of this encounter Miscellaneous Notes * Telephone Encounter - Lizett Beavers RN - 04/26/2024 10:27 AM CDT Images from the original note were not included. ADULT MED REFILL PROTOCOL [id number]/25/2024 09:50 AM Protocol Details Active Medication [facility] patient documented in this encounter Plan of Treatment Upcoming Encounters Date Type Department Care Team (Late Contact Info) Description 08/23/2024 10:15 AM HOT ROLL LAMINATOR Office Visit [facility] - Ophthalmology [address] [place] [address] Sanedep Hernandez MD [facility] DEPT [place] [phone] 09/27/2024 9:45 AM HOT ROLL LAMINATOR Office Visit [facility] - Ophthalmology [address] [place] [phone] Buddy Fuller MD [facility] DE[place] [phone] 10/04/2024 1:00 PM HOT ROLL LAMINATOR [facility] [address] [place] [phone] Rosalia Hair MD [address] [facility] [place] [phone] 02/07/2025 8:30 AM CDT Office Visit [facility] - Rheumatology [address] [place] [phone] Roni Castañeda MD [facility] [place] [phone] documented as of this encounter Visit Diagnoses Not on filedocumented in this encounter Care Teams Human Resources Coordinator Relationship Specialty Start Date End Date Adair Finn, PAINTING CONTRACTOR-TAX EXAMINER [address] [place] [address] PCP - General Nurse Practitioner Adult Health 03/29/24 08/09/24 documented as of this encounter
--- OUTSIDE RECORDS SUMMARY | 2024-08-13 05:39 | XMS_ITS | Encounter Summary ---
Author Organization [facility] Address [address] [place] [address]. [place], [place] [id number] [place] [id number] Care Team Providers Care Line Prep Cook Name Role Phone Joesph Jacobo MD Primary Care Provider [phone] Reason for Visit * Reason Onset Date Comments Follow Up Call 04/07/2024 JERRY 04/07-04/09/24 Encounter Details Date Type Department Care Team (Latest Contact Info) Description 04/13/2024 Hospital Follow-up Call [facility] [place] [address] Ledy Dhillon, BHAVESH Follow Up Call (JERRY 04/07-04/09/24) Social History Tobacco Use Types Packs/Day Years Used Date Smoking Tobacco: Some Days Cigarettes 0.5 15 Smokeless Tobacco: Current Alcohol Use Standard Drinks/Week Comments Not Currently 0 (1 standard drink = 0.6 oz pur e alcohol) [facility] Utilities Answer Date Recorded In the past 12 months has [facility] [employer], oil, or water [employer] threatened to shut off services in your [...] any time in the past 12 m [facility], were you homeless or living in a skilled nursing (including now)? No 04/07/2024 Comments No Sex [...] Green RN Active documented in this encounter Plan of Treatment Not on file documented as of this encounter Goals Goal Patient Goal Type Associated Problems Recent Progress Patient-Stated? Author Health - patient able to perform ADLs independently Lifestyle No Renéermaria i er, Kole Villalobos RN documented as of this encounter Visit Diagnoses Not on filedocumented in this encounter Additional Health Concerns Infection Onset Date Last Indicated Resolved Time MRSA Comment:04/03/24 +MRSA Left axilla 04/07/24 +MRSA Left axilla 04/03/2024 04/07/2024 Assessment Noted Time PHQ-9 Depression Total Score: 2 04/10/20 24 3:21 PM CDT documented as of this encounter Care Teams Line Prep Cook Relationship Specialty [place] [id number] [facility] [address] [place] [id number] PCP - General INTERNAL MEDICINE 02/22/24 07/09/24 Rosalia Garcia MD [address] [place] [address] [place] [address] Consulting Physician ENDOCRINOLOGY 03/29/24 documented as of this encounter
--- OUTSIDE RECORDS SUMMARY | 2024-08-13 05:39 | XMS_ITS | Encounter Summary ---
Author Organization [facility] Address [address] [place] [address]. [place], [place] [id number] [place] [id number] Care Team Providers Care [employer] Name Role Phone Joesph Jacobo MD Primary Care Provider [phone] Encounter Details Date Type Department Care Team (Latest Contact Info) Description 04/10/2024 Travel Social History Tobacco Use Types Packs/Day Years Used Date Smoking Tobacco: Some Days Cigarettes 0.5 15 Smokeless Tobacco: Current Alcohol Use Standard Drinks/Week Comments Not Currently 0 (1 standard drink = 0.6 oz pur e alcohol) [facility] Utilities Answer Date Recorded In [...] any time in the past 12 m [facility], were you homeless or living in a alf (including now)? No 04/07/2024 Comments No Sex [...] documented as of this encounter Care Teams [employer] Relationship Specialty [place] [address] [place] [address] PCP - General INTERNAL MEDICINE 02/22/24 07/09/24 Rosalia Garcia MD [facility] [place] [id number] Consulting Physician ENDOCRINOLOGY 03/29/24 documented as of this encounter
--- OUTSIDE RECORDS SUMMARY | 2024-08-13 05:39 | XMS_ITS | Clinical Summary ---
Author Organization [facility] Address [address] [place] [address]. [place] [address] [place] [address] Care Team Providers Care Pocket Setter Name Role Phone Unavailable Primary Care Provider Unavailabl e Allergies No known active allergies Medications levothyroxine (SYNTHROID) 100 MCG tablet Take 1 tablet (100 mcg total) by mouth every morning. Active HUMALOG 100 UNIT/ML injection (VIAL) Inject 0-80 Units into the skin see administration instructions. Basal: 0.9 units/hr continuous Bolus (max of 30 units/bolus): - CHO ratio: 1 unit: 15 g CHO - Sensitivity Factor: 1 units: 55 mg/dL over target - Target BG = 150 mg/dL Programmed duration of action: 5 hours. 11/29/19 24 Active Insulin Disposable Pump (OMNIPOD 5 G6 PODS, GEN 5,) Misc USE AND CHANGE EVERY 48 HOURS 08/23/19 24 Active Continuous Glucose Transmitter (DEXCOM G6 TRANSMITTER) Misc 01/07/20 24 Active Continuous Glucose Sensor (DEXCOM G6 SENSOR) Misc 12/03/19 24 Active Active Problems Problem Noted Date Diagnosed Date DKA, type 1 ([facility]) 07/09/2024 Hypercalcemia 07/09/2024 Periorbital cellulitis 06/23/2024 Abscess, axilla 04/03/2024 Type 1 diabetes mellitus wit h diabetic cataract ([facility]) 02/14/2024 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 Encounters Date Type Department Care Team Description 07/09/2024 10:13 AM TEST SKEIN WINDER - 07/10/2024 9:45 AM TEST SKEIN WINDER Hospital Encounter [facility] [place] [address] James Heath PA Simpson, Stephanie L, DO Hyperglycemia; Rib Pain Discharge Disposition: Left Against Medical Advice 07/09/2024 Travel 06/23/2024 5:51 PM TEST SKEIN WINDER - 06/25/2024 11:40 AM TEST SKEIN WINDER Hospital Encounter [facility] Med/Surg [address] [place] [address] Sim Reed MD Jumean, Khaled, MD Martens, Jennifer L, NP Eye Problem Discharge Disposition: Home or Self Care (Routine Discharge) 06/23/2024 Travel 06/21/2024 Telephone [facility] [address] [phone] Joesph Jacobo MD Forms (H&P form for eye surgery.) 06/19/2024 2:20 PM TEST SKEIN WINDER Office Visit [facility] [address] [phone] Joesph Jacobo MD Establish Care (Needing clearance to have surgery on right eye by Dr. Paulson ) 06/19/2024 Travel 06/08/2024 11:19 AM TEST SKEIN WINDER - 06/08/2024 11:21 AM [facility] Emergency [facility] [place] [address] Facundo Spain, THIEN Breathing Problem Discharge Disposition: Home or Self Care (Routine Discharge) 06/08/2024 Travel from Last 3 Months Family History Medical History Relation Comments Diabetes Father Hypertension Father Stroke Father ALS Maternal Grandfather Diabetes Sister Relation Status Comments Father Maternal Grandfather Sister Social History Tobacco Use Types Packs/Day Years Used Date Smoking Tobacco: Some Days Cigarettes 0.5 15 Smokeless Tobacco: Current Tobacco Cessation:Ready to Q uit: Yes; Counseling Given: Yes Alcohol Use Standard Drinks/Week Comments Not Currently 0 (1 standard drink = 0.6 oz pur e alcohol) [facility] Utilities Answer Date Recorded In the past 12 months has e [employer], [employer], oil, or water [employer] threatened to shut off services in your home? No 06/24/2024 Humiliation, Afraid, Rape, and Kick questionnair e Answer Date Recorded Within the last year, have y ou been afraid of your partner or ex-partner? No 06/24/2024 Within the last year, have y ou been humiliated or emotionally abused in other ways by your partner or ex-partner? No Within the last year, have y ou been kicked, hit, slapped, or otherwise physically hurt by your partner or ex-partner? No 06/24/2024 Within the last year, have y ou been raped or forced to have any kind of sexual activity by your partner or ex-partner? No 06/24/2024 Social Connection and Isolat ion Panel [NHANES] Answer Date Recorded In a typical week, how many times do you talk on the phone with family, friends, or neighbors? Three times a week 06/24/2024 How often do you get togethe r with friends or relatives? More than three times a week 06/24/2024 How often do you attend chur ch or pentecostalism services? Never 06/24/2024 Do you belong to any clubs o r organizations such as jewish groups, unions, fraternal or athletic groups, or school groups? No 06/24/2024 How often do you attend meet ings of the clubs or organizations you belong to? Never 06/24/2024 Are you , , di vorced, , never , or living with a partner? 06/24/2024 AUDIT-C Answer Date Recorded Q1: How often do you have a drink containing alcohol? Never 06/24/2024 Q2: How many drinks containi ng alcohol do you have on a typical day when you are drinking? Patient does not drink Q3: How often do you have si x or more drinks on one occasion? Never 06/24/2024 Overall Financial Resource Strain (CARDIA) Answe r Date Recorded How hard is it for you to pa y for the very basics like food, housing, medical care, and heating? Very hard 06/24/2024 PHQ-2 Answer Date Recorded Patient Health Questionnaire-2 Score 2 06/19/2024 [facility] - Occupational Stress Questionnaire Answer Date Recorded Do you feel stress - tense, restless, nervous, or anxious, or unable to sleep at night because your mind is troubled all the time - these days? To some extent 06/24/2024 Hunger Vital Sign Answer Date Recorded Within the past 12 months, y ou worried that your food would run out before you got the money to buy more. Never true 06/24/20 24 Within the past 12 months, t he food you bought just didn't last and you didn't have money to get more. Never true 06/24/2024 PRAPARE - Transportation Answer Date Re corded In the past 12 months, has l ack of transportation kept you from medical appointments or from getting medications? No 06/03 In the past 12 months, has l ack of transportation kept you from meetings, work, or from getting things needed for daily living? No 06/24/2024 Housing Stability Vital Sign Answer Fidel e Recorded In the last 12 months, was t here a time when you were not able to pay the mortgage or rent on time? Yes 06/24/2024 In the past 12 months, how m any times have you moved where you were living? 0 06/24/2024 At [facility] time in the [facility], were you homeless or living in a care home (including now)? No 06/24/2024 Comments No Sex and Gender Information Value Date Recorded Sex Assigned at Not on file Legal Sex Female 7:10 PM CDT Gender Identity Not on file Sexual Orientation Not on file Last Filed Vital Signs Vital Sign Reading Time Taken Comments Blood Pressure 126/75 07/10/2024 5:00 AM TEST SKEIN WINDER Pulse 80 07/10/2024 5:00 AM TEST SKEIN WINDER Temperature 37.1 ??C (98.7 ??F) 07/09/2024 9:36 AM CS T Respiratory Rate 13 07/10/2024 5:00 AM TEST SKEIN WINDER Oxygen Saturation 99% 07/10/2024 5:00 AM TEST SKEIN WINDER Inhaled Oxygen Concentration - - Weight 54.4 kg (120 lb) 07/09/2024 9:36 AM TEST SKEIN WINDER Height 160 cm (5' 3 ) 07/09/2024 9:36 AM TEST SKEIN WINDER Body Mass Index 21.26 07/09/2024 9:36 AM TEST SKEIN WINDER Plan of Treatment Health Maintenance Due Date Last Done Comments Cervical Cancer Screening Pa p Smear (Age 30 to 64) Every 3 Years 1983 Kidney Health Evaluation 1983 Lipid Panel 1983 Annual Physical 1986 Pneumococcal Vaccine: Pediatrics (0 to 5 Years) and At-Risk Patients (6 to 64 Years) (1 of 2 - PCV) 1989 Hepatitis C 2001 DTaP, Tdap and Td Vaccines ( 1 - Tdap) 2002 Hepatitis B Vaccines (1 of 3 - 19+ 3-dose series) 2002 Cervical Cancer Screening Pa p with HPV Testing (Age 30 to 64) Every 5 Years 2013 Cervical Cancer Screening wi th HPV 2013 Mammogram Screening 2023 COVID-19 Vaccine (2023-2 5 season) 2024 Influenza Adult (#1) 2024 Hemoglobin A1C 10/07/2024 07/09/2024, 03/29/2024, 03/29/2024 Diabetes: Retinopathy Eye Exam 06/01/2026 06/01/2024 HPV Vaccines Aged Out No longer eligi ble based on patient's age to complete this topic Meningococcal Vaccine Aged Out No kerwin mehdi eligible based on patient's age to complete this topic RSV Immunizations Under 20 Months Aged Out No longer eligible b ased on patient's age to complete this topic Goals Goal Patient Goal Type Associated Problems Recent Progress Patient-Stated? 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 Procedure Name Priority Date/Time Associated Diagnosis Comments BASIC METABOLIC PANEL STAT 07/10/2024 6:23 AM TEST SKEIN WINDER CBC W/DIFF AUTOMATED STAT 07/10/2024 6:23 AM TEST SKEIN WINDER MAGNESIUM STAT 07/10/2024 6:23 AM TEST SKEIN WINDER POCT GLUCOSE - HAMILTON DOCKED DEVICE Routine 07/10/2024 4:45 AM TEST SKEIN WINDER POCT GLUCOSE - HAMILTON DOCKED DEVICE Routine 07/10/2024 1:41 AM TEST SKEIN WINDER POCT GLUCOSE - HAMILTON DOCKED DEVICE Routine 07/09/2024 11:45 PM TEST SKEIN WINDER BASIC METABOLIC PANEL STAT 07/09/2024 9:54 PM TEST SKEIN WINDER POCT GLUCOSE - HAMILTON DOCKED DEVICE Routine 07/09/2024 9:53 PM TEST SKEIN WINDER POCT GLUCOSE - HAMILTON DOCKED DEVICE Routine 07/09/2024 8:43 PM TEST SKEIN WINDER POCT GLUCOSE - HAMILTON DOCKED DEVICE Routine 07/09/2024 7:45 PM TEST SKEIN WINDER BASIC METABOLIC PANEL STAT 07/09/2024 7:26 PM TEST SKEIN WINDER POCT GLUCOSE - HAMILTON DOCKED DEVICE Routine 07/09/2024 6:39 PM TEST SKEIN WINDER POCT GLUCOSE - HAMILTON DOCKED DEVICE Routine 07/09/2024 5:17 PM TEST SKEIN WINDER POCT GLUCOSE - HAMILTON DOCKED DEVICE Routine 07/09/2024 4:20 PM TEST SKEIN WINDER BASIC METABOLIC PANEL STAT 07/09/2024 2:43 PM TEST SKEIN WINDER HEMOGLOBIN, GLYCOSYLATED Routine 07/09/2024 2:43 PM TEST SKEIN WINDER POCT GLUCOSE - HAMILTON DOCKED DEVICE Routine 07/09/2024 2:39 PM TEST SKEIN WINDER DRUG SCREEN RAPID STAT 07/09/2024 2:0 2 PM TEST SKEIN WINDER HC URINALYSIS AUTO W/O MICRO STAT 07/09/2024 2:02 PM TEST SKEIN WINDER BLOOD GAS, VENOUS STAT 07/09/2024 11: 55 AM TEST SKEIN WINDER ECG 12-LEAD STAT 07/09/2024 11:32 AM TEST SKEIN WINDER THYROXINE, FREE (FT4) STAT 07/09/2024 10:42 AM TEST SKEIN WINDER TSH W/REFLEX STAT 07/09/2024 10:42 AM TEST SKEIN WINDER ETHANOL STAT 07/09/2024 10:42 AM TEST SKEIN WINDER TROPONIN, QUANT STAT 07/09/2024 10:42 AM TEST SKEIN WINDER LIPASE STAT 07/09/2024 10:42 AM TEST SKEIN WINDER COMPREHENSIVE METABOLIC PANEL STAT 07/09/2024 10:42 AM TEST SKEIN WINDER CBC W/DIFF AUTOMATED STAT 07/09/2024 10:42 AM TEST SKEIN WINDER XR CHEST PORTABLE STAT 07/09/2024 10: 24 AM TEST SKEIN WINDER COMPREHENSIVE METABOLIC PANEL Routine 06/25/2024 8:20 AM TEST SKEIN WINDER CBC W/DIFF AUTOMATED Routine 06/25/2024 8:20 AM TEST SKEIN WINDER POCT GLUCOSE - HAMILTON DOCKED DEVICE Routine 06/24/2024 3:41 PM TEST SKEIN WINDER POCT GLUCOSE - HAMILTON DOCKED DEVICE Routine 06/24/2024 11:16 AM TEST SKEIN WINDER POCT GLUCOSE - HAMILTON DOCKED DEVICE Routine 06/24/2024 7:55 AM TEST SKEIN WINDER SODIUM URINE RANDOM STAT 06/24/2024 5 :40 AM TEST SKEIN WINDER OSMOLALITY, URINE STAT 06/24/2024 5:4 0 AM TEST SKEIN WINDER POCT GLUCOSE - HAMILTON DOCKED DEVICE Routine 06/24/2024 5:38 AM TEST SKEIN WINDER VANCOMYCIN TIMED 06/24/2024 5:30 AM TEST SKEIN WINDER COMPREHENSIVE METABOLIC PANEL Routine 06/24/2024 5:30 AM TEST SKEIN WINDER CBC W/DIFF AUTOMATED Routine 06/24/2024 5:30 AM TEST SKEIN WINDER POCT GLUCOSE - HAMILTON DOCKED DEVICE Routine 06/23/2024 11:43 PM TEST SKEIN WINDER POCT GLUCOSE - HAMILTON DOCKED DEVICE Routine 06/23/2024 10:28 PM TEST SKEIN WINDER XR CHEST PORTABLE STAT 06/23/2024 9:3 2 PM TEST SKEIN WINDER PRO-BRAIN NATRIURETIC PEPTIDE Routine 06/23/2024 9:32 PM TEST SKEIN WINDER OSMOLALITY, BLOOD Routine 06/23/2024 9:3 2 PM TEST SKEIN WINDER POCT GLUCOSE - HAMILTON DOCKED DEVICE Routine 06/23/2024 9:[address] ORBITS W CON STAT 06/23/2024 7:20 PM TEST SKEIN WINDER CULTURE, BACTERIA, BLOOD STAT 06/23/2024 6:37 PM TEST SKEIN WINDER PROCALCITONIN (PCT) STAT 06/23/2024 5 :51 PM TEST SKEIN WINDER C-REACTIVE PROTEIN, HIGH SENSI STAT 06/23/2024 5:51 PM TEST SKEIN WINDER SED RATE, ERYTHROCYTE (ESR) STAT 06/23/2024 5:51 PM TEST SKEIN WINDER LACTIC ACID W REFLEX (SEPSIS) STAT 06/23/2024 5:51 PM TEST SKEIN WINDER COMPREHENSIVE METABOLIC PANEL STAT 06/23/2024 5:51 PM TEST SKEIN WINDER CBC W/DIFF AUTOMATED STAT 06/23/2024 5:51 PM TEST SKEIN WINDER from Last 3 Months Results * (ABNORMAL) BASIC METABOLIC PANEL (07/10/2024 6:23 AM TEST SKEIN WINDER) Only the most recent of4 resultswithin the time period is included. GLUCOSE 172(H) 70 - 99 MG/DL 07/10/2024 7:03 AM [facility] BUN 15 7 - 18 MG/DL 07/10/2024 7:03 AM [facility] CREATININE S/P/B 0.61 0.55 - 1.02 MG/DL 07/10/2024 7:03 AM [facility] SODIUM S/P/B 138 136 - 145 MMOL/L 07/10/2024 7:03 AM [facility] POTASSIUM S/P/B 3.4(L) 3.5 - 5.1 MMOL/L 07/10/2024 7:03 AM [facility] CHLORIDE S/P/B 108 97 - 115 MMOL/L 07/10/2024 7:03 AM [facility] CO2 27.8 21 - 32 MMOL/L 07/10/2024 7:03 AM [facility] CALCIUM S/P/B 8.2(L) 8.5 - 10.1 MG/DL 07/10/2024 7:03 AM [facility] ANION GAP 2.2 2 - 10 MMOL/L 07/10/2024 7:03 AM [facility] BUN CREATININE RATIO 24.4 6 - 26 07/10/2024 7:03 AM [facility] GFR ESTIMATE >90 >90 ML/MIN/1.7 3 M2 07/10/2024 7:03 AM [facility] Comment: NOTE: eGFR is not calculated for patients <18 years of age or gender unknown. This is an estimated GFR calculation using the new CKD EPI creatinine equation without race and so does not require a correction factor for race. This estimated GFR should not be used for calculating drug doses. 07/10/2024 6:23 AM TEST SKEIN WINDER Jayme Francois NP LABORATORY Final Result [facility] [address] [place] [address], * (ABNORMAL) CBC W/DIFF AUTOMATED (07/10/2024 6:23 AM TEST SKEIN WINDER) Only the most recent of5 resultswithin the time period is included. WBC 6.66 4.5 - 11.0 x10'3/uL 07/10/2024 6:40 AM [facility] RBC 4.27 4.20 - 5.40 x10'6/uL 07/10/2024 6:40 AM [facility] HGB 11.4(L) 12.0 - 16.0 G/DL 07/10/2024 6:40 AM [facility] HCT 34.8(L) 38.0 - 48.0 % 07/10/2024 6:40 AM [facility] MCV 81.5 81.0 - 99.0 FL 07/10/2024 6:40 AM [facility] MCH 26.7(L) 27.0 - 31.0 PG 07/10/2024 6:40 AM [facility] MCHC 32.8 32.0 - 36.0 G/DL 07/10/2024 6:40 AM [facility] RDW 14.2 11.5 - 14.5 % 07/10/2024 6:40 AM [facility] PLT 382 130 - 400 x10'3/uL 07/10/2024 6:40 AM [facility] MPV 9.7 9.3 - 12.2 FL 07/10/2024 6:40 AM [facility] DIFFERENTIAL TYPE AUTOMATED DIFFERENTIAL 07/10/2024 6:40 AM TEST SKEIN WINDER [facility] NEUTROPHILS % 58.5 % 07/10/2024 6:40 AM TEST SKEIN WINDER [facility] LYMPHOCYTES % 26.7 % 07/10/2024 6:40 AM TEST SKEIN WINDER [facility] MONOCYTES % 9.2 % 07/10/2024 6:40 AM TEST SKEIN WINDER [facility] EOSINOPHILS 4.5 % 07/10/2024 6:40 AM TEST SKEIN WINDER [facility] BASOPHILS 0.8 % 07/10/2024 6:40 AM TEST SKEIN WINDER [facility] IMMATURE GRANS % 0.3 % 07/10/20 6:40 AM TEST SKEIN WINDER [facility] ABS. NEUTROPHILS 3.90 1.80 - 7.70 x10'3/uL 07/10/2024 6:40 AM TEST SKEIN WINDER [facility] ABS. LYMPHOCYTES 1.78 1.00 - 4.80 x10'3/uL 07/10/2024 6:40 AM TEST SKEIN WINDER [facility] ABS. MONOCYTES 0.61 0.24 - 0.86 x10'3/uL 07/10/2024 6:40 AM TEST SKEIN WINDER [facility] ABS. EOSINOPHILS 0.30 0.04 - 0.36 x10'3/uL 07/10/2024 6:40 AM TEST SKEIN WINDER [facility] ABS. BASOPHILS 0.05 0.01 - 0.08 x10'3/uL 07/10/2024 6:40 AM TEST SKEIN WINDER [facility] ABS. IMMATURE GRANULOCYTES 0.02 0.00 - 0.49 x10'3/uL 07/10/2024 6:40 AM [facility] 07/10/2024 6:23 AM TEST SKEIN WINDER us Jayme Francois NP LABORATORY Final Result [facility] [address] [place] [address], * MAGNESIUM (07/10/2024 6:23 AM TEST SKEIN WINDER) MAGNESIUM 1.9 1.8 - 2.4 MG/DL 07/10/2024 7:03 AM TEST SKEIN WINDER [facility] 07/10/2024 6:23 AM TEST SKEIN WINDER Jayme Francois [employer] LABORATORY Final Result [facility] [address] [place] [id number], * (ABNORMAL) POCT glucose (07/10/2024 4:45 AM TEST SKEIN WINDER) Only the most recent of17 resultswithin the time period is included. [facility] GLUCOSE POC 181(H) 70 - 99 mg/dL 07/10/2024 4:47 AM TEST SKEIN WINDER [facility] 07/10/2024 4:45 AM TEST SKEIN WINDER Carine Simon DO POCT ORDERABLES - DEVICE Final Result [facility] [address] [place] [id number], * (ABNORMAL) HEMOGLOBIN, GLYCOSYLATED (07/09/2024 2:43 PM TEST SKEIN WINDER) HGB A1C 16.9(H) <5.7 % 07/09/2024 9:36 PM TEST SKEIN WINDER [facility] Comment: ADA GUIDELINES 2010 5.7 TO 6.4% INCREASED RISK OF DIABETES > OR = 6.5% CONSISTENT WITH DIABETES ESTIMATED AVG GLUCOSE 438 mg/dL 07/09/2024 9:36 PM TEST SKEIN WINDER [facility] 07/09/2024 2:43 PM TEST SKEIN WINDER Jayme Francois NP LABORATORY Final Result [facility] [address] [place] [address], * (ABNORMAL) DRUG SCREEN RAPID (07/09/2024 2:02 PM TEST SKEIN WINDER) Pathologist [facility] AMPHETAMINE (U) NEGATIVE NEGATIVE 2:37 PM TEST SKEIN WINDER [facility] BARBITURATES SCREEN (U) NEGATIVE NEGATIVE 07/09/2024 2:37 PM [facility] BENZODIAZEPINES SCREEN (U) NEGATIVE NEGATIVE 07/09/2024 2:37 PM TEST SKEIN WINDER [facility] CANNABINOIDS SCREEN (U) NEGATIVE NEGATIVE 07/09/2024 2:37 PM TEST SKEIN WINDER [facility] COCAINE METABOLITES (U) NEGATIVE NEGATIVE 07/09/2024 2:37 PM [facility] METHADONE (U) NEGATIVE NEGATIVE 07/09/2024 2:37 PM [facility] OPIATE SCREEN (U) NEGATIVE NEGATIVE 024 2:37 PM [facility] PHENCYCLIDINE PCP (U) NEGATIVE NEGATIVE 07/09/2024 2:37 PM [facility] Comment: NOTE: RESULTS OF THIS DRUG SCREEN SHOULD BE USED FOR MEDICAL PURPOSES ONLY AND NOT FOR LEGAL OR EMPLOYMENT PURPOSES. POSITIVE RESULTS ARE NOT CONFIRMED. MEDICATIONS CONTAINING EPHEDRINE MAY CAUSE FALSE POSITIVE AMPHETAMINE CALL [phone], LAB, TO REQUEST CONFIRMATION TESTING. IF CREATININE IS <40 mg/dL. ??RECOLLECTION IS SUGGESTED. AMPHETAMINE- ?500 NG/ML BARBITURATE- ?200 NG/ML BENZODIAZEPINES- ??200 NG/ML THC- ? 50 NG/ML COCAINE- ?150 NG/ML METHADONE- ?300 NG/ML OPIATE- ? 300 MG/ML PCP- ? 25 NG/ML CREATININE (U) 23.7(L) 28 - 217 MG/DL 07/09/2024 2:37 PM TEST SKEIN WINDER [facility] URINE SPECIMEN / Unknown 07/09/2024 2:02 PM TEST SKEIN WINDER us James BALL URINE ORDERABLES Final Res ult [facility] [address] [place] [id number], * (ABNORMAL) URINALYSIS (07/09/2024 2:02 PM TEST SKEIN WINDER) SPECIMEN TYPE URINE CLEAN CATCH 07/09/2024 2:02 PM [facility] COLOR (U) LIGHT YELLOW 07/09/2024 2:34 PM [facility] TRANSPARENCY CLEAR 07/09/2024 2:34 PM [facility] SPECIFIC GRAVITY (U) 1.026 1.001 - 1.030 07/09/2024 2:34 PM [facility] U PH 5.0 5.0 - 9.0 07/09/2024 2:34 PM [facility] LEUKOCYTES (U) NEGATIVE NEGATIVE 07/09/2024 2:34 PM [facility] NITRITES NEGATIVE NEGATIVE 07/09/2024 2:34 PM [facility] PROTEIN RANDOM (U) 10 <30 MG/DL 07/09/2024 2:34 PM [facility] GLUCOSE (U) >1000(A) NORMAL MG/DL 07/09/2024 2:34 PM TEST SKEIN WINDER [facility] KETONES MG/DL (U) >150(A) NEGATIVE MG/DL 07/09/2024 2:34 PM TEST SKEIN WINDER [facility] Comment: Successful Call: [facility] called 07/09/2024 02:34 PM to EMERGENCY ROOM ([id number]/PAT EUCEDA) by [id number]. Read Back: Yes UROBILINOGEN NORMAL NORMAL MG/DL 07/09/2024 2:34 PM TEST SKEIN WINDER [facility] BILIRUBIN (U) NEGATIVE NEGATIVE MG/DL 07/09/2024 2:34 PM TEST SKEIN WINDER [facility] BLOOD (U) NEGATIVE NEGATIVE 07/09/2024 2:34 PM TEST SKEIN WINDER [facility] URINE SPECIMEN OBTAINED BY CLEAN CATCH PROCEDURE / Unknown 07/09/2024 2:02 PM TEST SKEIN WINDER Brianna BALL URINE ORDERABLES Final Result [facility] [address] [place] [address], * (ABNORMAL) Blood gas, venous (07/09/2024 11:55 AM TEST SKEIN WINDER) PH VENOUS 7.18(LL) 7.32 - 7.43 07/09/2024 12:08 PM TEST SKEIN WINDER [facility] Comment: Successful Call: [facility] called 07/09/2024 12:09 PM to JAMES HEATH PA ( /JAMES HEATH PA) by [id number]. PCO2 VENOUS 28.0 MMHG 07/09/2024 12:08 PM TEST SKEIN WINDER [facility] Comment:NO REFERENCE RANGE H BEEN ESTABLISHED PO2 VENOUS 43.0 MM HG 07/09/2024 12:08 PM TEST SKEIN WINDER [facility] Comment:NO REFERENCE RANGE H BEEN ESTABLISHED TOTAL CO2 VENOUS 11.4(L) 22.0 - 26.0 MMOL/L 07/09/2024 12:08 PM TEST SKEIN WINDER [facility] BASE DEFICIT VENOUS 16.4 MMOL/L 07/09/2024 12:08 PM [facility] Comment:NO REFERENCE RANGE H BEEN ESTABLISHED O2 SAT VENOUS 64 % 07/09/2024 12:08 PM TEST SKEIN WINDER [facility] Comment:NO REFERENCE RANGE H BEEN ESTABLISHED BICARB VENOUS 10.5(L) 22.0 - 29.0 MMOL/L 07/09/2024 12:08 PM TEST SKEIN WINDER [facility] O2 ADMIN VENOUS 21 10:[address] [facility] 07/09/2024 11:5 5 AM TEST SKEIN WINDER us James BALL LABORATORY Final Resu lt [facility] [address] [place] [address], * ECG 12 lead (07/09/2024 11:32 AM TEST SKEIN WINDER) 07/09/2024 11:3 2 AM TEST [facility] Narrative [facility] ([facility]) RAD - 07/09/2024 12:35 PM TEST SKEIN WINDER ?[facility] ? [address] [place] ? Test Date: ?2024-07-09 Pat Name: ? ARTURO MENDOZA ?Department: ?? 41 ? Room: ? EXAM21 Gender: ? Female ? 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 [id number] : ?1985 ? Requested By: BRIANNA MENDOZA Order Number: [id number] ? Reading MD: ?? Joselin Melida ? Measurements Intervals ?[place] ? Rate: ? 97 ? P: ?29 TN: ? 134 ?QRS: ?64 QRSD: ? 88 ? T: ?57 QT: ? 341 ? QTc: ?434 ? Interpretive Statements SINUS RHYTHM POSSIBLE LEFT ATRIAL ENLARGEMENT [-0.1mV P WAVE IN V1/V2] NONSPECIFIC T-WAVE ABNORMALITY No previous ECG available for comparison [facility] Procedure Note Joselin Montez MD - 07/09/[address] Test Date: 2024-07-09 Pat Name: ARTURO MENDOZA Department: 41 Room: [facility] Gender: Female Desk Sergeant: [id number] : 1985 Requested By: BRIANNA MENDOZA Order Number: [id number] Reading MD: Joselin Montez Measurements Intervals [place] Rate: 97 P: 29 TN: 134 QRS: 64 QRSD: 88 T: 57 QT: 341 QTc: 434 Interpretive Statements SINUS RHYTHM POSSIBLE LEFT ATRIAL ENLARGEMENT [-0.1mV P WAVE IN V1/V2] NONSPECIFIC T-WAVE ABNORMALITY No previous ECG available for comparison [facility] us [facility] ECG ORDERABLES Final Result Performing Organization Address City/[facility] Co de Phone Number [facility] ([facility]) RAD * (ABNORMAL) TSH W/REFLEX (07/09/2024 10:42 AM TEST SKEIN WINDER) TSH 6.660(H) 0.358 - 3.74 uIU/ML 07/09/2024 12:56 PM TEST SKEIN WINDER [facility] Comment: HIGH DOSES OF BIOTIN MAY INTERFERE WITH THIS TEST RESULT. CORRELATION TO CLINICAL HISTORY AND PRESENTATION RECOMMENDED. 07/09/2024 10:4 2 AM TEST SKEIN WINDER us James [facility] LAB[facility] Final Resu lt Performing Organization Address City/[facility] Co de Phone Number [facility] [address] [place] [address], [place] [phone] * (ABNORMAL) COMPREHENSIVE METABOLIC PANEL (07/09/2024 10:42 AM TEST SKEIN WINDER) Only the most recent of4 resultswithin the time period is included. [facility] GLUCOSE 396(H) 70 - 99 MG/DL 07/09/2024 11:19 AM [facility] BUN 16 7 - 18 MG/DL 07/09/2024 11:19 AM [facility] CREATININE S/P/B 1.11(H) 0.55 - 1.02 MG/DL 07/09/2024 11:19 AM [facility] SODIUM S/P/B 125(L) 136 - 145 MMOL/L 07/09/2024 11:19 AM [facility] POTASSIUM S/P/B 4.8 3.5 - 5.1 MMOL/L 07/09/2024 11:19 AM [facility] CHLORIDE S/P/B 98 97 - 115 MMOL/L 07/09/2024 11:19 AM [facility] CO2 11.4(L) 21 - 32 MMOL/L 07/09/2024 11:19 AM [facility] CALCIUM S/P/B 9.0 8.5 - 10.1 MG/DL 07/09/2024 11:19 AM [facility] BILIRUBIN TOTAL S/P/B 0.4 0.2 - 1.2 MG/DL 07/09/2024 11:19 AM [facility] Comment: THIS ASSAY IS NOT RECOMMENDED FOR PATIENTS UNDERGOING TREATMENT WITH ELTROMBOPAG DUE TO THE POTENTIAL FOR FALSELY ELEVATED RESULTS. TOTAL PROTEIN S/P/B 9.0(H) 6.4 - 8.2 G/DL 07/09/2024 11:19 AM [facility] ALBUMIN S/P/B 3.7 3.4 - 5.0 G/DL 07/09/2024 11:19 AM [facility] AST 17 15 - 37 U/L 07/09/2024 11:19 AM [facility] ALT 17 14 - 55 U/L 07/09/2024 11:19 AM [facility] ALKALINE PHOSPHATASE S/P/B 179(H) 50 - 136 U/L 07/09/2024 11:19 AM [facility] ANION GAP 15.6(H) 2 - 10 MMOL/L 07/09/2024 11:19 AM [facility] BUN CREATININE RATIO 14.4 6 - 26 07/09/2024 11:19 AM [facility] A/G RATIO 0.7(L) 1.0 - 2.0 RATIO 07/09/2024 11:19 AM [facility] GFR ESTIMATE 64(L) >90 ML/MIN/1.7 3 M2 07/09/2024 11:19 AM [facility] Comment: NOTE: eGFR is not calculated for patients <18 years of age or gender unknown. This is an estimated GFR calculation using the new CKD EPI creatinine equation without race and so does not require a correction factor for race. This estimated GFR should not be used for calculating drug doses. 07/09/2024 10:4 2 AM TEST SKEIN WINDER us Brianna [facility] Final Result [facility] [address] [place] [address], [place] [phone] * THYROXINE, FREE (FT4) (07/09/2024 10:42 AM TEST SKEIN WINDER) FREE T4 0.84 0.76 - 1.46 NG/DL 07/09/2024 1:34 PM TEST SKEIN WINDER [facility] 07/09/2024 10:4 2 AM TEST SKEIN WINDER James [facility] Final Resu lt [facility] [address] [place] [address], * TROPONIN, QUANT (07/09/2024 10:42 AM TEST SKEIN WINDER) TROPONIN I HIGH SENSITIVITY 46 <54 ng/L 07/09/2024 11:19 AM TEST SKEIN WINDER [facility] Comment: HIGH DOSES OF BIOTIN, TROPONIN-SPECIFIC AUTOANTIBODIES, AND ANTIBODY THERAPY CONTAINING HAMA MAY INTERFERE WITH THIS TEST RESULT. CORRELATION TO CLINICAL HISTORY AND PRESENTATION RECOMMENDED. 07/09/2024 10:4 2 AM TEST SKEIN WINDER Brianna [facility] Final Result Performing Organization Address City/[facility]/ZIP Co de Phone Number [facility] [address] [place] [address], * LIPASE (07/09/2024 10:42 AM TEST SKEIN WINDER) [facility] LIPASE 24 13 - 75 UNITS/L 07/09/2024 11:19 AM TEST SKEIN WINDER [facility] 07/09/2024 10:4 2 AM TEST SKEIN WINDER Brianna [facility] Final Result [facility] [address] [place] [address], [place] [phone] * ETHANOL (07/09/2024 10:42 AM TEST SKEIN WINDER) ALCOHOL S/P/B <0.003 <0.003 G/DL 07/09/2024 12:56 PM TEST SKEIN WINDER [facility] 07/09/2024 10:4 2 AM TEST SKEIN WINDER us James [facility] Final Resu lt [facility] [address] [place] [address], * XR CHEST PORTABLE (07/09/2024 10:24 AM TEST SKEIN WINDER) Only the most recent of2 resultswithin the time period is included. Anatomical Region Laterality Modality Chest Radiographic Arielle ging 07/09/2024 10:3 1 AM TEST SKEIN WINDER Impressions 07/09/2024 10:33 AM TEST SKEIN WINDER IMPRESSION: No radiographic evidence of acute cardiopulmonary disease. Referred By: ?? Interpreted By: David Ramirez MD, 07/09/2024 10:31 AM Narrative 07/09/2024 10:33 AM TEST SKEIN WINDER [address] [address] EXAMINATION: XR CHEST PORTABLE INDICATIONS: Chest heaviness COMPARISON: 06/23/2024 FINDINGS: Frontal portable radiographs of the chest limited by portable technique demonstrates normal lung expansion without consolidation, effusion, or pneumothorax. No bulky hilar adenopathy. ?? The cardiomediastinal contours are maintained. Heart size is normal. Remote healed fracture deformities of the right third and fourth ribs posterolaterally. The osseous thorax is intact without displaced rib fracture. No acute or aggressive osseous abnormality. Procedure Note David Ramirez MD - 07/09/[address], [place] [address] EXAMINATION: XR CHEST PORTABLE INDICATIONS: Chest heaviness COMPARISON: 06/23/2024 FINDINGS: Frontal portable radiographs of the chest limited by portable techniquedemonstrates normal lung expansion without consolidation, effusion, orpneumothorax. No bulky hilar adenopathy. The cardiomediastinal contours are maintained. Heart size is normal. Remote healed fracture deformities of the right third and fourth ribsposterolaterally. The osseous thorax is intact without displaced rib fracture. No acute or aggressive osseous abnormality. IMPRESSION: No radiographic evidence of acute cardiopulmonary disease. Referred By: Interpreted By: David Ramirez MD, 07/09/2024 10:31 AM Brianna [facility] Final Result * SODIUM URINE RANDOM (06/24/2024 5:40 AM TEST SKEIN WINDER) NA RANDOM (U) 19 MMOL/L 06/25/2024 7:50 AM TEST SKEIN WINDER [facility] Comment:REFERENCE RANGE NOT ESTABLISHED URINE SPECIMEN / Unknown 06/24/2024 5:40 AM TEST SKEIN WINDER Lydia Taveras ART TEACHER URINE ORDERABLES Final Resu lt Performing Organization Address [facility]/ZIP Co de Phone Number [facility] [address] [place] [address], [id number] * OSMOLALITY, URINE (06/24/2024 5:40 AM TEST SKEIN WINDER) OSMOLALITY (U) 925 50 - 1,200 MOSM/KG 06/24/2024 5:59 AM TEST SKEIN WINDER [facility] URINE SPECIMEN / Unknown 06/24/2024 5:40 AM TEST SKEIN WINDER Lydia Taveras ART TEACHER URINE ORDERABLES Final Resu lt Performing Organization Address City/[facility]/ZIP Co de Phone Number [facility] [address] [place] [address], [place] [phone] * Vancomycin Random Level (06/24/2024 5:30 AM TEST SKEIN WINDER) VANCOMYCIN RANDOM 4.4 MCG/ML 06/24/2024 6:15 AM TEST SKEIN WINDER [facility] Comment:NO THERAPEUTIC RANGE AVAILABLE LAST DOSE UNKNOWN LAST DOSE 06/24/2024 7:31 AM TEST SKEIN WINDER [facility] 06/24/2024 5:30 AM TEST SKEIN WINDER us Lydia Taveras APRN LABORATORY Final Resul t Performing Organization Address City/[facility]/ZIP Co de Phone Number [facility] [address] [place] [address], [place] [phone] * PRO-BRAIN NATRIURETIC PEPTIDE (06/23/2024 9:32 PM TEST SKEIN WINDER) PRO-B TYPE NATRIURETIC PEPTIDE 47 <125 PG/ML 06/24/2024 12:59 AM TEST SKEIN WINDER [facility] Comment: CUT POINTS ESTABLISHED BY INTERNATIONAL COLL[employer] ON NT PROBNP (ICON) STUDY (2006). AGE INDEPENDENT: <300 PG/ML HAS A 99% NEGATIVE PREDICTIVE VALUE FOR EXCLUDING ACUTE CHF <50 YEARS: >450 PG/ML IS CONSISTENT WITH ACUTE CHF 50-75 YEARS: >900 PG/ML IS CONSISTENT WITH ACUTE CHF >75 YEARS: >1800 PG/ML IS CONSISTENT WITH ACUTE CHF IN PATIENTS WITH RENAL INSUFFICIENCY (GFR <60), >1200 PG/ML YIELDS A DIAGNOSTIC SENSITIVITY AND SPECIFICITY OF 89% AND 72% FOR ACUTE CHF. 06/23/2024 9:32 PM TEST SKEIN WINDER us Lydia Taveras APRN LABORATORY Final Resul t [facility] [address] [place] [address], [place] [phone] * (ABNORMAL) OSMOLALITY, BLOOD (06/23/2024 9:32 PM TEST SKEIN WINDER) OSMOLALITY (S/P/B) 299(H) 270 - 290 MOSM/KG 06/23/2024 9:56 PM TEST SKEIN WINDER [facility] 06/23/2024 9:32 PM TEST SKEIN WINDER Lydia Taveras ART TEACHER LABORATORY Final Resul t [facility] [address] [place] [address], [place] [phone] * CT ORBITS W CON (06/23/2024 7:20 PM TEST SKEIN WINDER) Anatomical Region Laterality Modality Orbits Computed Tomogra phy 06/23/2024 7:27 PM TEST SKEIN WINDER Impressions 06/23/2024 7:39 PM TEST SKEIN WINDER IMPRESSION: 1. ??Large area of abnormal periorbital soft tissue. 2. ??Asymmetric conjunctival enhancement on the right side. ??Potential anterior scleral enhancement on the right side. Referred By: ?? Interpreted By: Flynn Flores MD, 06/23/2024 7:27 PM Narrative 06/23/2024 7:39 PM TEST SKEIN WINDER [facility] [address] [place], [place] [address] EXAM: CT ORBITS W CON DATE: 06/23/2024 COMPARISON: None INDICATION: Right eye swelling since waking up this morning. TECHNIQUE: Postcontrast imaging with 100 cc intravenous Isovue-370 right forearm. A dose lowering technique was used for this procedure, which may include, but is not limited to, dose reduction technique, automated exposure control, iterative reconstruction, ALARA (As Low As Reasonably Achievable), or Image Gently techniques. FINDINGS: There is diffuse asymmetric swelling of the right side soft tissues. ??Mild involvement of the right side of the nose and upper eyelid. ??These findings extend just pass the lateral margin of the bony orbit. ??Findings are more severe in the lower eyelid and over the right maxillary sinus wall. ??No focal abnormality suggestive of an abscess. The globes are intact. ??There is mild diffuse asymmetric conjunctival enhancement and possibly some anterior scleral enhancement on the right side. ??The intraconal and post septal fat are normal low-density. ??Normal and symmetric appearance of the extraocular muscles and lacrimal glands. ??Symmetric enhancement of the ophthalmic arteries. The paranasal sinuses are clear. ??No bone destruction. ??The orbital xankk-pe-rkzt does not include the oral cavity. ??This could be correlated with direct visualization of the teeth as oral pathology could potentially extend into the facial soft tissues. ??Normal enhancement of the visualized portions of the parotid glands. Procedure Note Flynn Flores MD - 06/23/[address] [address] EXAM: CT ORBITS W CON DATE: 06/23/2024 COMPARISON: None INDICATION: Right eye swelling since waking up this morning. TECHNIQUE: Postcontrast imaging with 100 cc intravenous Isovue-370 rightforearm. A dose lowering technique was used for this procedure, which may include,but is not limited to, dose reduction technique, automated exposurecontrol, iterative reconstruction, ALARA (As Low As ReasonablyAchievable), or Image Gently techniques. FINDINGS: There is diffuse asymmetric swelling of the right side softtissues. Mild involvement of the right side of the nose and upper eyelid.These findings extend just pass the lateral margin of the bony orbit.Findings are more severe in the lower eyelid and over the right maxillarysinus wall. No focal abnormality suggestive of an abscess. The globes are intact. There is mild diffuse asymmetric conjunctivalenhancement and possibly some anterior scleral enhancement on the rightside. The intraconal and post septal fat are normal low-density. Normaland symmetric appearance of the extraocular muscles and lacrimal glands.Symmetric enhancement of the ophthalmic arteries. The paranasal sinuses are clear. No bone destruction. The byqtxwiycwwe-kx-gjft does not include the oral cavity. This could be correlatedwith direct visualization of the teeth as oral pathology could potentiallyextend into the facial soft tissues. Normal enhancement of the visualizedportions of the parotid glands. IMPRESSION: 1. Large area of abnormal periorbital soft tissue. 2. Asymmetric conjunctival enhancement on the right side. Potentialanterior scleral enhancement on the right side. Referred By: Interpreted By: Flynn Flores MD, 06/23/2024 7:27 PM David Connelly NP CT Final Result * CULTURE, BACTERIA, BLOOD (06/23/2024 6:37 PM TEST SKEIN WINDER) SPEC DESCRIPTION BLOOD 06/23/2024 6:25 PM TEST SKEIN WINDER [facility] SPECIAL REQUESTS NO SPECIAL REQUEST 06/23/2024 6:25 PM TEST SKEIN WINDER [facility] CULTURE RESULT NO GROWTH 5 DAYS 06/28/2024 6:39 AM TEST SKEIN WINDER [facility] BLOOD SPECIMEN OBTAINED FOR BLOOD CULTURE / Unknown 06/23/2024 6:37 PM TEST SKEIN WINDER 06/23/2024 6:45 PM TEST SKEIN WINDER Sim Reed MD MICROBIOLOGY - GENERA L ORDERABLES Final Result Performing Organization Address [facility]/ZIP Co de Phone Number [facility] [address] [place] [address], [place] [phone] * LACTIC ACID W REFLEX (SEPSIS) (06/23/2024 5:51 PM TEST SKEIN WINDER) LACTIC ACID VENOUS 1.2 0.4 - 2.0 MMOL/L 06/23/2024 6:43 PM TEST SKEIN WINDER [facility] 06/23/2024 5:51 PM TEST SKEIN WINDER David Connelly NP LABORATORY Final Result [facility] [address] [place] [address], [place] [phone] * PROCALCITONIN (PCT) (06/23/2024 5:51 PM TEST SKEIN WINDER) Procalcitonin 0.12 0.00 - 0.49 NG/ML 06/23/2024 7:06 PM TEST SKEIN WINDER [facility] 06/23/2024 5:51 PM TEST SKEIN WINDER us David Connelly MULE PACKER LABORATORY Final Result [facility] [address] [place] [address], [place] [phone] * SED RATE, ERYTHROCYTE (ESR) (06/23/2024 5:51 PM TEST SKEIN WINDER) ESR 7 <20 MM/HR 06/23/2024 6:42 PM TEST SKEIN WINDER [facility] Comment:Testing performed on Alcor iSED. 06/23/2024 5:51 PM TEST SKEIN WINDER us David Connelly [facility] LABORAT[facility] Final Result [facility] [address] [place] [address], [place] [phone] * (ABNORMAL) C-REACTIVE PROTEIN, HIGH SENSI (06/23/2024 5:51 PM TEST SKEIN WINDER) HS-CRP 3.85(H) <0.3 mg/dL 06/23/2024 6:53 PM TEST SKEIN WINDER [facility] 06/23/2024 5:51 PM TEST SKEIN WINDER us David Connelly [facility] LABORAT[facility] Final Result [facility] [address] [place] [address], from Last 3 Months Additional Health Concerns Infection Onset Date Last Indicated MRSA Comment:04/03/24 +MRSA Left axilla 04/07/24 +MRSA Left axilla 04/03/2024 04/07/2024 Insurance [employer] Advance Directives * Full Code (Latest Code Status on File) Date Activated Date Inactivated Comments 07/09/2024 1:07 PM 07/10/2024 11:58 AM * Full Code Date Activated Date Inactivated Comments 07/09/2024 12:27 PM 07/09/2024 1:07 PM * Full Code Date Activated Date Inactivated Comments 06/23/2024 8:17 PM 06/25/2024 1:54 PM * Full Code Date Activated Date Inactivated Comments 04/07/2024 1:40 AM 04/09/2024 3:18 PM * Full Code Date Activated Date Inactivated Comments 04/03/2024 1:03 AM 04/03/2024 3:06 PM Care Teams Pocket Setter Relationship Specialty Start Date End Date Rosalia Garcia MD [address] [facility] [place] [address] Consulting Physician ENDOCRINOLOGY 8/28/24
--- OUTSIDE RECORDS SUMMARY | 2024-08-13 05:39 | XMS_ITS | Encounter Summary ---
Author Organization [facility] Address [address] [place] [address]. [place], [place] [address] [place] [address] Care Team Providers Care Service Desk Manager Name Role Phone Joesph Jacobo MD Primary Care Provider [phone] Reason for Visit * Reason Onset Date Comments Surgical Clearance 04/20/2024 Encounter Details Date Type Department Care Team (Late st Contact Info) Description 04/20/2024 Telephone [facility] Family & Internal Medicine [facility] [address] [place] [address] [place] [address] [facility] [address] [place] [address] Surgical Clearance Social History Tobacco Use Types Packs/Day Years Used Date Smoking Tobacco: Some Days Cigarettes 0.5 15 Smokeless Tobacco: Current Alcohol Use Standard Drinks/Week Comments Not Currently 0 (1 standard drink = 0.6 oz pur e alcohol) [facility] Utilities Answer Date Recorded In the past 12 months has [employer] gas, oil, or water [employer] threatened to shut off services in your [...] any time in the past 12 m [facility], were you homeless or living [...] Date Author Status No 04/07/2024 3:27 AM MAIKELT iNcolas Cisneros RN Active documented in this encounter Progress Notes * Ana Luisa Meadows RN - 04/20/2024 12:08 PM CDT Called and spoke with patient regarding her surgical clearance and her upcoming scheduled surgery on 04/24/2024. States she has reached out to [facility] and the [employer] REP there gave her clearance due to them having completed a previous surgery and they were aware of her blood sugar issues. Informed patient I am sure Dr. Horner was just being extra precautions since he did not know her. Patient voiced understanding. documented in this encounter Plan of Treatment Not on file documented as of this encounter Goals Goal Patient Goal Type Associated Problems Recent Progress Patient-Stated? Author Health - patient able to perform ADLs independently Lifestyle No Koerken i er, Kole Villalobos RN documented as of this encounter Visit Diagnoses Not on filedocumented in this encounter Additional Health Concerns Infection Onset Date Last Indicated Resolved Time MRSA Comment:04/03/24 +MRSA Left axilla 04/07/24 +MRSA Left axilla 04/03/2024 04/07/2024 Assessment Noted Time PHQ-9 Depression Total Score: 2 04/10/20 3:21 PM CDT documented as of this encounter Care Teams Service Desk Manager Relationship Specialty [place] [address] [facility] [address] [place] [address] PCP - General INTERNAL MEDICINE 02/22/24 07/09/24 Rosalia Garcia MD [facility] [place] [id number] Consulting Physician ENDOCRINOLOGY 03/29/24 documented as of this encounter
--- OUTSIDE RECORDS SUMMARY | 2024-08-13 05:39 | XMS_ITS | Encounter Summary ---
Author Organization [facility] Address [address] [place] [address]. [place], [place] [address] [place] [id number] Care Team Providers Care Research Program Coordinator Name Role Phone Joesph Jacobo MD Primary Care Provider [phone] Reason for Visit * Reason Onset Date Comments Forms 06/21/2024 H&P form for eye surgery. Encounter Details Date Type Department Care Team (Late st Contact Info) Description 06/21/2024 Telephone [facility] Medical Group Family & Internal Medicine [address] [address] [place] [phone] [address] Forms (H&P form for eye surgery.) Social History Tobacco Use Types Packs/Day Years Used Date Smoking Tobacco: Some Days Cigarettes 0.5 15 Smokeless Tobacco: Current Alcohol Use Standard Drinks/Week Comments Not Currently 0 (1 standard drink = 0.6 oz pur e alcohol) [facility] Utilities Answer Date Recorded In the past 12 months has [employer], gas, oil, or water [employer] threatened to shut off services in your [...] any time in the past 12 m [facility], were you homeless or living in a group home (including now)? No 04/07/2024 Comments No Sex [...] Notes * Ana Luisa Meadows RN - 06/21/2024 10:00 AM CST Spoke to patient-she is aware she needs the approval of the mail reader to proceed with surgery. Also states she has been in touch with retina specialist in [facility] as she has seen previously GAME OPERATOR * Hyacinth Hendricks - 06/21/2024 9:26 AM CST Gena with [facility] calling asking about H&P form that was faxed to our office on 06/18/2024needing to be completed. Gena will refax this form again just in case it was not received. Provided her the fax # [phone]. Surgery is 06/26/2024 # [phone] FAX # [phone] GAME OPERATOR documented in this encounter Plan of Treatment Not on file documented as of this encounter Goals Goal Patient Goal Type Associated Problems Recent Progress Patient-Stated? Author Health - patient able to perform ADLs independently Lifestyle No Sami stein er, Kole Villalobos RN documented as of this encounter Visit Diagnoses Not on filedocumented in this encounter Additional Health Concerns Infection Onset Date Last Indicated Resolved Time MRSA Comment:04/03/24 +MRSA Left axilla 04/07/24 +MRSA Left axilla 04/03/2024 04/07/2024 Assessment Noted Time PHQ-9 Depression Total Score: 7 06/19/20 3:39 PM CARD GAME OPERATOR documented as of this encounter Care Teams Research Program Coordinator Relationship Specialty [place] [address] [facility] [address] [place] [address] PCP - General INTERNAL MEDICINE 02/22/24 07/09/24 Rosalia Garcia MD [address] [phone] Consulting Physician ENDOCRINOLOGY 03/29/24 documented as of this encounter
--- OUTSIDE RECORDS SUMMARY | 2024-08-13 05:39 | XMS_ITS | Encounter Summary ---
Author Organization [facility] Address [facility] [place] [address] Care Team Providers Care Sterile Proc Tech Name Role Phone Adair Finn APRN-PATIENT FLOW COORDINATOR Primary Care P rojadielder Reason for Visit * Reason Comments Refill Request Encounter Details Date Type Department Care Team (Late Contact Info) Description 05/01/2024 Refill [facility] - Endocrinology [address] [place] [phone] Rosalia Hair MD [address] [place] [address] [place] [phone] Refill Request Social History Tobacco Use Types Packs/Day Years Used Date Smoking Tobacco: Never Assessed Sex and Gender Information Value Date Recorded Sex Assigned at Not on file Gender Identity Not on file Sexual Orientation Not on file documented as of this encounter Plan of Treatment Upcoming Encounters Date Type Department Care Team (Late Contact Info) Description 08/23/2024 10:15 AM CYTOLOGY SUPERVISOR Office Visit [facility] - Ophthalmology [address] [place] [phone] Sandeep Hernandez MD [address] [place] [address] [place] [phone] 09/27/2024 9:45 AM CYTOLOGY SUPERVISOR Office Visit [facility] - Ophthalmology [address] [place] [phone] Buddy Fuller MD [address] [facility] [place]PT [place] [phone] 10/04/2024 1:00 PM CYTOLOGY SUPERVISOR Office Visit [facility] - Endocrinology [address] [place] [address], [place] [phone] Rosalia Hair MD [address] [facility] [place] [phone] 02/07/2025 8:30 AM CDT Office Visit [facility] - Rheumatology [address] [place] [address], [place] [phone] Roni Castañeda MD [address] [facility] [place] [phone] documented as of this encounter Visit Diagnoses Diagnosis Type 2 diabetes mellitus with other specified complication, with long-term current use of insulin (HCC)- Primary documented in this encounter Care Teams Sterile Proc Tech Relationship Specialty Start Date End Date Adair Finn APRN-PATIENT FLOW COORDINATOR [address] [place] [address] PCP - General Nurse Practitioner Adult Health 03/29/24 08/09/24 documented as of this encounter
--- OUTSIDE RECORDS SUMMARY | 2024-08-13 05:39 | XMS_ITS | Encounter Summary ---
Author Organization [facility] Address [address] [place] [address] Care Team Providers Care Valve Steamer Name Role Phone Adair Finn APRN-PLANT PROTECTION OFFICER Primary Care P rovider Joesph Jacobo MD Primary Care Provider [phone] Encounter Details Date Type Department Care Team (Late st Contact Info) Description 04/04/2024 Telephone [facility] - Endocrinology [address] [place] [address], [place] [phone] Rosalia Hair MD [address] [place] [phone] Social History Tobacco Use Types Packs/Day Years Used Date Smoking Tobacco: Never Assessed Sex and Gender Information Value Date Recorded Sex Assigned at Not on file Gender Identity Not on file Sexual Orientation Not on file documented as of this encounter Miscellaneous Notes * Telephone Encounter - Sheree Gómez - 04/04/2024 2:43 PM CDT Current Provider: Dr. Rosalia Hair Reason for Call: Ms. Madeleine Mendoza just established as a NEW PT with you 03/29/24. She needs to get emergency surgery for abscess under her left arm pit. The surgeon Dr. Little at [facility] wants to do a debridement leaving an open wound that will have to be drained. They want to do surgery ZENY, abscess is open and draining, Her A1C is over 16% and has been for 2 years per her. She would like a call and voice her concerns, since she knows the wound is not going to heal. Please call her ZENY. She doesn't think having the operation is a safe option. She would like to know what her other options are. Again please call ZENY. Patient Call Back Number: [phone] documented in this encounter Plan of Treatment Upcoming Encounters Date Type Department Care Team (Late st Contact Info) Description 08/23/2024 10:15 AM DESIGN STUDIO CONSULTANT Office Visit [facility] - Ophthalmology [address] [place] [address] [phone] Sandeep Hernandez MD [address] [place] [address] [place] [phone] 09/27/2024 9:45 AM DESIGN STUDIO CONSULTANT Office Visit [facility] - Ophthalmology [address] [place] [phone] Buddy Fuller MD [address] [place] [address] [place] [phone] 10/04/2024 1:00 PM DESIGN STUDIO CONSULTANT Office Visit [facility] - Endocrinology [address] [place] [phone] Rosalia Hair MD [address] [facility] [place] [phone] 02/07/2025 8:30 AM CDT Office Visit [facility] - Rheumatology [address] [place] [phone] Roni Castañeda MD [address] [place] [address] [place] [phone] documented as of this encounter Visit Diagnoses Not on filedocumented in this encounter Care Teams Valve Steamer Relationship Specialty Start Date End Date Adair Finn, FREIGHT CLERK-PLANT PROTECTION OFFICER [address] [place] [address] PCP - General Nurse Practitioner Adult Health 03/29/24 08/09/24 Joesph Jacobo MD [address] [place] [phone] PCP - General Internal Medicine 08/10/24 documented as of this encounter
--- OUTSIDE RECORDS SUMMARY | 2024-08-13 05:39 | XMS_ITS | Encounter Summary ---
Author Organization [facility] Address [address] [place] [address]. [place], [place] [address] [place] [address] Care Team Providers Care Felt Hat Flanging Operator Name Role Phone Joesph Jacobo MD Primary Care Provider [phone] Reason for Visit * Auth/Cert Specialty Diagnoses / Procedures Referred By Contac t Referred To Contact Diagnoses Abscess, axilla Abscess of axilla, left Procedures NONE Nataliia Muhammad, [address] [place] [address] Phone: tel: fax: Referral ID Status Reason Start Date Expiration Date Visits Re quested Visits Authorized [id number] 1 1 Encounter Details Date Type Department Care Team (Late st Contact Info) Description 04/07/2024 12:03 PM CDT Anesthesia Event [facility] [place], [place] [phone] Amy Rice DO [address] [facility] [address] [place] [address] Brady Dejesus MD 1 [place], [place] [phone] Anesthesia Record Procedure Summary Procedure Name Responsible Anesthesiologist Anesthesia Start Time Anesthesia Stop Time INCISION AND DRAINAGE LEFT AXILLARY ABSCESS (Left) Amy Rice DO 04/07/24 1203 04/07/24 1239 Events Date Time Event Comment 04/07/2024 1134 AN Anesthesia Prepped 1203 An Start Patient ID and consent checked and patient reassessed. 1203 An Start Data 1206 Preoxygenation 1206 An Induction The patient was reevaluated immediately before moderate or deep sedation use and before anesthesia induction. 1208 An Intubation 1213 Anesthesia Ready 1225 An Emergence 1227 An Extubation 1229 Face Mask Applied 1229 an stop data 1234 Post Anesthetic Care Handoff I completed my handoff to the receiving nurse during which we: 1. Identified the patient 2. Identified the responsible provider 3. Reviewed the pertinent medical history 4. Discussed the surgical course 5. Reviewed intra-op anesthesia management and issues during anesthesia 6. Set expectations for post-procedure period 7. Allowed opportunity for questions and acknowledgement of understanding. 1239 An Stop 1424 Meds Name Total dexamethasone (DECADRON) injection 8 mg ondansetron (ZOFRAN) 4 mg/2 mL injection 4 mg midazolam 2 mg/2 mL injection 2 mg fentaNYL (SUBLIMAZE) 100 mcg/2 mL inject ion 50 mcg lidocaine (PF) (XYLOCAINE) 2% injection 60 mg propofol (DIPRIVAN) 200 mg/20 mL injecti on 150 mg succinylcholine (ANECTINE) 20 mg/mL inje ction 120 mg lactated ringers infusion 300 mL * Agents Name O2 Air Inspired Sevoflurane Sevoflurane * Blood No blood administrations on file. Lines, Drains, and Airways Type Details Placement Removal Wound 04/03/24; 0210; Y; 1 ; Axilla; Left; *Abscess; 06/23/24; 2225; Healed 04/03/24 0210 by Arleth Castro RN 06/23/24 2225 by Rui Amaya RN Wound 04/03/24; 0210; Knee ; scabbed; Abrasion(s); 06/24/24; 0411; Healed 04/03/24 0210 by Arleth Castro RN 06/24/24 0411 by Rui Amaya RN Peripheral IV Placement Date: 01/23; Placement Time: 0116; Placed Outside of This Facility?: No; Size: 20 G; Orientation: Right; Location: Antecubital; Site Prep: Alcohol; Local Anesthetic: None; Insertion attempts: 2; Ultrasound-guided Placement?: No; Patient Tolerance: Tolerated well; Removal Date: 04/09/24; Removal Time: 1243; Removal Reason: Patient Discharged 04/07/24 0116 by Lyndsay Figueroa CNA 04/09/24 1243 by Aleah Power RN ETT Placement Date: 01/23; Placement Time: 1208; Placed Outside of This Facility?:No; Mask Ventilate: Not attempted; Size (mm) : 7.5; Endotracheal: Oral, Stylet used; Blade Type: MAC 3; Placement Method: Direct Laryngoscopy (blade type in comment); View Grade: 1; Viewable Anatomy: Epiglottis, Arytenoid, Vocal cords; Insertion Attempts: 1; Placement Verified By: Capnography, Auscultation, Chest Rise; Placed By: RASTA; Extubation Assessment: Suctioned, Tolerated well, Patient spontaneously breathing, Deep, Atraumatic; Removal Date: 04/07/24; Removal Time: 1227; Removal Person: ENTERPRISE ARCHITECT; Removal Reason: End of Case 04/07/24 1208 by Rima Charles CRNA 04/07/24 1227 by Rima Charles CRNA Surgical/Incision 04/07/24; 1225; Surg ical Wound; Axilla; Left; x1 wound packed with bulkee and covered with 4x4s and abd.; 04/09/24; 1518 04/07/24 1225 by Vania Orta RN 04/09/24 1518 by Automatic Discharge Provider documented in this encounter Social History Tobacco Use Types Packs/Day Years Used Date Smoking Tobacco: Some Days Cigarettes Smokeless Tobacco: Current Alcohol Use Standard Drinks/Week Comments Not Currently 0 (1 standard drink = 0.6 oz pur e alcohol) [facility] Utilities Answer Date Recorded In the past 12 months has [employer], or water [employer] threatened to shut off services in your [...] and heating? Not hard at all 04/07/2024 Hunger Vital Sign Answer Date Recorded Within [...] any time in the [facility] were [facility] homeless or living in a senior care (including now)? No 04/07/2024 Comments No Sex and Gender Information Value Date Recorded Sex Assigned at Not on file Legal Sex Female 7:10 PM MAIKELT Gender Identity Not on file Sexual Orientation Not on file documented as of this encounter Functional Status * Question Answer Date of Assessment Author Status Do you have serious difficulty walking or climbing stairs? No 04/07/2024 3:27 AM Nicolas Green RN Act stephanie * Question Answer Date of Assessment Author Status Do you have difficulty dressing or bathing? No 04/07/2024 3:27 AM Nicolas Green RN Active Because of a physical, mental, or emotional condition, do you have difficulty doing errands alone such as visiting a doctor's office or shopping? No 04/07/2024 3:27 AM Nicolas Green RN Acti ve * Are you deaf [...] Green RN Active documented in this encounter OR Notes * Anesthesia Postprocedure Evaluation - Kristen Degroot CRNA - 04/08/2024 8:23 AM CDT Anesthesia Post-op Note Madeleine Mendoza Procedure(s): INCISION AND DRAINAGE LEFT AXILLARY ABSCESS (Left) Anesthesia type: general Vitals: 04/08/24 1154 BP: 110/78 Vitals: 04/08/24 1154 Pulse: 77 Vitals: 04/08/24 1154 Resp: 16 Vitals: 04/08/24 1154 Temp: 36.9 ??C Vitals: 04/08/24 1154 SpO2: 100% Level of Consciousness: awake, oriented and alert Pain Management: adequate analgesia Airway Patency: patent Respiratory Status: acceptable Cardiovascular Status: acceptable and stable Post-Op Nausea: none Postoperative Hydration: euvolemic Comments: Blood pressure 110/78, pulse 77, temperature 36.9 ??C, temperature source Oral, resp. rate 16, height 1.6 m (5' 3 ), weight 54.4 kg (119 lb 14.9 oz), last menstrual period 03/10/2024, SpO2 100%. There were no known notable events for this encounter. * Anesthesia Postprocedure Evaluation - Amy Rice DO - 04/07/2024 2:24 PM CDT Anesthesia Post-op Note Madeleine Reji Procedure(s): INCISION AND DRAINAGE LEFT AXILLARY ABSCESS (Left) Anesthesia type: general Vitals: 04/07/24 1300 BP: 112/82 Vitals: 04/07/24 1300 Pulse: 74 Vitals: 04/07/24 1300 Resp: 10 Vitals: 04/07/24 1245 Temp: 36.4 ??C Vitals: 04/07/24 1300 SpO2: 100% Patient Location: PACU Level of Consciousness: awake, oriented and alert Pain Management: adequate analgesia Airway Patency: patent Respiratory Status: acceptable Cardiovascular Status: acceptable and hemodynamically stable Post-Op Nausea: none Postoperative Hydration: euvolemic No notable events documented. * Anesthesia Preprocedure Evaluation - Amy Rice DO - 04/07/2024 9:35 AM CDT Anesthesia ROS/MED History Reviewed: Patient summary , Nursing notes , Family history anesthesia, Anesthesia history , Medications , Labs , Images/Studies Pre-Anesthetic State: alert, awake and responds appropriately Pulmonary neg pulmonary ROS Cardiovascular neg cardio ROS Exercise tolerance:good Neuro/Psych neg neuro/psych ROS (-) no seizures, no TIA, no CVA Substance Use (+) smoker, 1 pack Substance Use Comments: UDS + for Amphetamines GI/Hepatic/Renal neg GI/hepatic/renal ROS Comments: NPO after midnight. Denies GERD symptoms Endo/Other (+) diabetes mellitus, (poorly controlled), (type 1), underweight, hypothyroidism Comments: A1C 15 NPO Status: Physical Evaluation Airway Mallampati: II TM Distance: >3 FB Neck ROM: normal Dental (implants) Comment: Denies loose teeth or removable Hardware Pulmonary Pulmonary exam normal Breath sounds clear to auscultation Cardiovascular Cardiovascular exam normal Other findings: Blood pressure 109/76, pulse 75, temperature 36.6 ??C, temperature source Oral, resp. rate 18, height 1.6 m (5' 3 ), weight 54.4 kg (120 lb), SpO2 100%. 04/07/24 0116 WBC 7.41 RBC 3.96* HGB 11.0* HCT 33.5* PLT 524* NA 132* K 3.8 CL 95* CO2 29.9 AGAP 7.1 BUN 11 CR 0.85 BUNCREATININ 13.0 GLU 591* CA 8.9 STOP-Bang Assessment: Anesthesia Plan ASA 3 Intravenous Induction Anesthesia type: general Plan for Airway: ETT Plan for Post-op Pain Plan: oral pain medication, IV analgesics and as per surgeon Discussed potential risks of General Anesthesia including but not limited to corneal abrasion, visual impairment or visual loss, mouth injury, dental damage, sore throat, hoarseness, esophageal injury, awareness under anesthesia, nerve injury due to positioning, aspiration, pneumonia, stroke, cardiac event, adverse drug reactions and . Patient understands risks, benefits and alternatives andwishes to proceed. All questions answered. Patient tested positive for Amphetamines, denies acute intoxication, given that she has an abscess that needs to be drained we will proceed. She understands risks and alternatives and agrees to proceed. Informed Consent Anesthetic plan and risks discussed with patient of whom consent was obtained. . documented in this encounter Plan of Treatment Not on file documented as of this encounter Goals Goal Patient Goal Type Associated Problems Recent Progress Patient-Stated? 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 L, RN documented as of this encounter Visit Diagnoses Not on filedocumented in this encounter Administered Medications Inactive Administered Medications - up to 3 most recent administrations Medication Order MAR Action Action Date Dose Rate Site dexamethasone (DECADRON) injection Intravenous, PRN, Starting on Wed04/07/24 at 1212, Until Wed04/07/24 at 1241, Anesthesia Intra-Op Given 04/07/2024 12:12 PM CDT 8 mg fentaNYL (SUBLIMAZE) injection Intravenous, PRN, Starting on Wed04/07/24 at 1206, Until Wed04/07/24 at 1241, Anesthesia Intra-Op Given 04/07/2024 12:06 PM CDT 50 mcg lactated ringers infusion at 10 mL/hr, Intravenous, Continuous, Starting on Wed04/07/24 at 1030, Until Wed04/09/24 at 1518, Infuse at TKO rate, Pre-Op New Bag 04/07/2024 12:03 PM CDT lidocaine (PF) (XYLOCAINE) 2 % injection Intravenous, PRN, Starting on Wed04/07/24 at 1206, Until Wed04/07/24 at 1241, Anesthesia Intra-Op Given 04/07/2024 12:06 PM CDT 60 mg midazolam (VERSED) injection Intravenous, PRN, Starting on Wed04/07/24 at 1203, Until Wed04/07/24 at 1241, Anesthesia Intra-Op Given 04/07/2024 12:03 PM CDT 2 mg ondansetron (ZOFRAN) injection Intravenous, PRN, Starting on Wed04/07/24 at 1212, Until Wed04/07/24 at 1241, Anesthesia Intra-Op Given 04/07/2024 12:12 PM CDT 4 mg propofol (DIPRIVAN) IV bolus Intravenous, PRN, Starting on Wed04/07/24 at 1206, Until Wed04/07/24 at 1241, Anesthesia Intra-Op Given 04/07/2024 12:06 PM CDT 150 mg succinylcholine (ANECTINE) injection Intravenous, PRN, Starting on Wed04/07/24 at 1206, Until Wed04/07/24 at 1241, Anesthesia Intra-Op Given 04/07/2024 12:06 PM CDT 120 mg documented in this encounter Additional Health Concerns Infection Onset Date Last Indicated Resolved Time MRSA Comment:04/03/24 +MRSA Left axilla 04/07/24 +MRSA Left axilla 04/03/2024 04/07/2024 documented as of this encounter Care Teams Felt Hat Flanging Operator Relationship Specialty [place] [address] [facility] [address] [place] [address] PCP - General INTERNAL MEDICINE 02/22/24 07/09/24 Rosalia Garcia MD [address] [facility] [place] [phone] Consulting Physician ENDOCRINOLOGY 03/29/24 documented as of this encounter
--- OUTSIDE RECORDS SUMMARY | 2024-08-13 05:39 | XMS_ITS | Encounter Summary ---
Author Organization [facility] Address [address] [place] [address]. [place], [place] [address] [place] [address] Care Team Providers Care Dinkey Operator Slate Name Role Phone Joesph Jacobo MD Primary Care Provider [phone] Reason for Visit * Reason Onset Date Comments Surgical Clearance 04/18/2024 Encounter Details Date Type Department Care Team (Late st Contact Info) Description 04/18/2024 Telephone [facility] Family & Internal Medicine [facility] [address] [place] [address] [place] [address] [facility] [address] [place] [address] Surgical Clearance Social History Tobacco Use Types Packs/Day Years Used Date Smoking Tobacco: Some Days Cigarettes 0.5 15 Smokeless Tobacco: Current Alcohol Use Standard Drinks/Week Comments Not Currently 0 (1 standard drink = 0.6 oz pur e alcohol) [facility] Utilities Answer Date Recorded In the past 12 months has [employer] gas, oil, or water [employer] threatened to shut off services in your [...] any time in the past 12 m [facility], were you homeless or living in [...] * Ana Luisa Meadows RN - 04/18/2024 12:09 PM CDT Spoke with patient and informed of message sent to [facility]. Attempted to make another appointment and no providers available this week. Surgery is on Wednesday04/24/2024. Dr Horner did review her chart and indicated her blood sugars need to be more in control before a surgical clearance wouldbe granted from his perspective. [employer] message sent to patient regarding same. [facility] * Ana Luisa Meadows RN - 04/18/2024 11:50 AM CDT Message left for Zainab at [facility], patient did not show up for appointment this morningfor surgical clearance. * Maribel Clayton LPN - 04/18/2024 10:44 AM CDT Zainab from [facility] called pt has cataract surgery left eye on 04/24/24 and will need surgical clearance sent to hosp by 04/20/24 or early wednesday04/21/24 A form has been faxed on 03/31/24 and 04/11/24 and will be faxed again today on [phone] fax line Zainab will call back tomorrow aware of 48 -72 hour policy Pt has appt today with Dr. Horner for this clearance 7 am documented in this encounter Plan of Treatment [...] documented as of this encounter Care Teams Dinkey Operator Slate Relationship Specialty Start [place] [address] [facility] [address] [place] [address] PCP - General INTERNAL MEDICINE 02/22/24 07/09/24 Rosalia Garcia MD [address] [facility] [place] [phone] Consulting Physician ENDOCRINOLOGY 03/29/24 documented as of this encounter
--- OUTSIDE RECORDS SUMMARY | 2024-08-13 05:39 | XMS_ITS | Encounter Summary ---
Author Organization [facility] Address [address] [place] [address]. [place] [address] [place] [address] Care Team Providers Care Ditch Cleaner Name Role Phone Jennifer Ramirez MD Primary Care Provider [phone] Reason for Visit * Reason Comments Hyperglycemia Rib Pain * Auth/Cert (Routine) Specialty Diagnoses / Procedures Referred By Contac t Referred To Contact Diagnoses DKA, type 1 ([facility]/HCC [facility]/HCC) Hypercalcemia Procedures N/A Referral ID Status Reason Start Date Expiration Date Visits Re quested Visits Authorized [id number] 1 1 Encounter Details Date Type Department Care Team (Late st Contact Info) Description 07/09/2024 10:13 AM RHEUMATOLOGY SPECIALIST - 07/10/2024 9:45 AM [facility] Hospital Encounter [facility] [place] [address] James Heath PA 1 [place] [address] Carine Simon DO 1 [place] [address] Hyperglycemia; Rib Pain Discharge Disposition: Left Against Medical Advice Social History Tobacco Use Types Packs/Day Years Used Date Smoking Tobacco: Some Days Cigarettes 0.5 15 Smokeless Tobacco: Current Alcohol Use Standard Drinks/Week Comments Not Currently 0 (1 standard drink = 0.6 oz pur e alcohol) [facility] Utilities Answer Date Recorded In the past 12 months has [employer] gas, oil, or water company threatened to [...] often do you attend chur ch or nondenominational services? Never 06/24/2024 Do you belong to any clubs o r organizations such as judaism groups, unions, fraternal or athletic groups, or [...] Recorded Patient Health Questionnaire-2 Score 2 06/19/2024 [employer] - Occupational Stress [...] any time in the past 12 m [place], were you homeless or living in a assisted (including now)? No 06/24/2024 Comments No Sex and Gender Information Value Date Recorded Sex Assigned at Not on file Legal Sex Female 7:10 PM CDT Gender Identity Not on file Sexual Orientation Not on file documented as of this encounter Last Filed Vital Signs Vital Sign Reading Time Taken Comments Blood Pressure 126/75 07/10/2024 5:00 AM RHEUMATOLOGY SPECIALIST Pulse 80 07/10/2024 5:00 AM RHEUMATOLOGY SPECIALIST Temperature 37.1 ??C (98.7 ??F) 07/09/2024 9:36 AM CS T Respiratory Rate 13 07/10/2024 5:00 AM RHEUMATOLOGY SPECIALIST Oxygen Saturation 99% 07/10/2024 5:00 AM RHEUMATOLOGY SPECIALIST Inhaled Oxygen Concentration - - Weight 54.4 kg (120 lb) 07/09/2024 9:36 AM RHEUMATOLOGY SPECIALIST Height 160 cm (5' 3 ) 07/09/2024 9:36 AM RHEUMATOLOGY SPECIALIST Body Mass Index 21.26 07/09/2024 9:36 AM RHEUMATOLOGY SPECIALIST documented in this encounter Functional Status * Are you deaf or do you have serious difficulty hearing Answer Date of Assessment Author Status No 06/23/2024 10:05 PM Rui Lee RN Active * Are you blind or do you have serious difficulty seeing, even when wearing glasses? Answer Date of Assessment Author Status Yes 06/23/2024 10:05 PM Rui Lee RN Active * Do you have serious difficulty walking or climbing stairs? Answer Date of Assessment Author Status No 06/23/2024 10:05 PM Rui Lee RN Active * Do you have difficulty dressing or bathing? Answer Date of Assessment Author Status No 06/23/2024 10:05 PM Rui Lee RN Active * Because of a physical, mental, or emotional condition, do you have difficulty doing errands alone such as visiting a doctor's office or shopping? Answer Date of Assessment Author Status No 06/23/2024 10:05 PM Rui Lee RN Active documented as of this encounter Mental Status * Because of a physical, mental, or emotional condition, do you have serious difficulty concentrating, remembering, or making decisions? Answer Entry Date Author Status No 06/23/2024 10:05 PM Rui Lee RN Active documented in this encounter Discharge Summaries * Carine Simon DO - 07/10/2024 9:45 AM CST Images from the original note were not included. Hospitalist Discharge Summary Patient ID: Arturo Mendoza. female. 1985. Admit date: 07/09/2024 10:13 AM Discharge date: 07/10/2024 Patient left against medical advice Admitting Physician: No admitting provider for patient encounter. Primary Care Physician: No primary care provider on file. Discharge Physician: Carine Simon DO Primary Diagnoses: DKA Admission Condition: fair Discharged Condition: Stable Code Status: Full Code Chief Complaint: Chief Complaint Patient presents with Hyperglycemia Rib Pain Reason for hospitalization: DKA HPI per admitting physician: Arturo Mendoza is a 39-year-old female with past medical history of diabetes type 1, neuropathy, hypothyroidism, Raynaud's syndrome, who presented to the emergency room with shortness of breath and fatigue. Patient reports her Dexcom and insulin pump has not been working properly. Reports that she was discharged from the hospital 4 days ago and her Dexcom was not sinking with her insulin pump. Patient is unable to state her insulin dose is via insulin pump. She reports she thought it was out and attempted to refill but was advised that she was too early for refills at her pharmacy. Has not been ableto give herself any bolus insulin due to the Dexcom not sinking. Has had associated symptoms of feeling fatigue, nauseous, vomiting, decreased p.o. intake and bodyaches. She decided to come to the emergency room today for further evaluation. In the ED, patient was noted to be angry and using profanity at the staff including myself and was noted to be eating food from [employer] restaurant this despite the nurse telling her she needs to be n.p.o. for an insulin drip. Laboratory data revealed sodium 125, H&H 11.4/15.6, glucose 396, alk phos 179, TSH 6.6, VBG with pH 7.18, pCO2 28, pO2 43, otherwise unremarkable. Urine analysis had greater than 1000 glucose. Urine drug screen was unremarkable. Patient was treated with 10 units IV insulin and started on a basal bolus regimen given her refusalto be n.p.o. on the insulin drip. Admitted for further management. Hospital Course: DKA Type 1 DM Blood glucose 388, AG 15, pH 7.1 Patient has been noncompliant with insulin pump, also without appropriate sensors for DEXCOM and does not know how to utilize pump manually. Hold insulin pump, asked RN to remove Discussed case with intensivisit, Recommends IV insulin and re-evaluate prior to initiating gtt. Patient noncompliant with diet, eating [employer] and potato chips despite NPO status and multiple discussion regarding importance of strict NPO for now Additional IV insulin given; AG closed. Started subq insulin Diet advanced to low carb Glucose improved. AG remains closed. Patient left AMA from the ER prior to discussing plan of care or recommendations with her. Per report patient plans to resume using her insulin pump after discharge since she will be receiving new dexcom and omnipod today. Would have recommended starting basal and SSI insulin but given report that she will have supplies available today reasonable to resume pump immediately. Recommended lantus dose this morning to allow further glucose control, which patient refused. Risk of leaving AMA discussed with patient by nursing staff. Patient is high risk for further clinical deterioration Hyponatremia Na 125 Secondary to hyperglycemia Resolved SCAR Cr 1.21 Avoid nephrotoxins and hypotension IVFs started Monitor BMP Resolved Hypothyroidism TSH elevated at 6.66, free T4 is normal at 0.84 Unclear if patient has been compliant with her home medication Will resume home medication Hypokalemia Replete and monitor Hypomagnesemia Replete and monitor Elevated BP Not maintained on any home medications BP improved without intervention Close outpatient follow up Discharge Exam: Filed Vitals: 07/10/24 0405 07/10/24 0410 07/10/24 0415 07/10/24 0500 BP: 126/75 Pulse: 81 82 80 80 Resp: 12 15 13 13 Temp: TempSrc: SpO2: 99% 99% 99% 99% Weight: Height: Significant Diagnostic Studies: Recent Labs Lab 07/09/24 1042 07/10/24 0623 WBC 8.60 6.66 RBC 5.61* 4.27 HGB 15.2 11.4* HCT 47.3 34.8* MCV 84.3 81.5 MCH 27.1 26.7* MCHC 32.1 32.8 PLT 594* 382 RDW 13.9 14.2 MPV 9.9 9.7 PERNEU 77.4 58.5 PERLYM 16.2 26.7 PERMON 3.5 9.2 NEUC 6.66 3.90 LYMC 1.39 1.78 MONOC 0.30 0.61 EOSC 0.08 0.30 BASOC 0.10* 0.05 DTYPE AUTOMATED DIFFERENTIAL AUTOMATED DIFFERENTIAL Recent Labs Lab 07/09/24 1042 07/09/24 1443 07/09/24 1926 07/09/24 2154 07/10/24 0623 NA 125* 131* 136 137 138 K 4.8 3.9 3.7 3.5 3.4* CL 98 104 108 109 108 CO2 11.4* 16.1* 22.3 21.6 27.8 AGAP 15.6* 10.9* 5.7 6.4 2.2 BUN 16 15 15 17 15 CR 1.11* 1.06* 1.21* 1.02 0.61 BUNCREATININ 14.4 14.2 12.4 16.7 24.4 GLU 396* 441* 331* 189* 172* CA 9.0 7.9* 8.3* 8.2* 8.2* TP 9.0* -- -- -- -- ALB 3.7 -- -- -- -- TBIL 0.4 -- -- -- -- ALKP 179* -- -- -- -- AST 17 -- -- -- -- ALT 17 -- -- -- -- Recent Labs Lab 07/09/24 1042 07/09/24 1443 HGBA1C -- 16.9* TSH 6.660* -- No results for input(s): APTT , INR , PTT in the last 168 hours. Recent Labs Lab 07/09/24 1042 TROP 46 No results for input(s): LACTICACID , PROCT in the last 168 hours. No results for input(s): PH , PCO2 , PO2 , A2CYYRILTVTE , BICARBWB , BASEDEFICIT , BASEEXCESS in the last 168 hours. No results found for this or any previous visit. 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1985 Requested By: BRIANNA MENDOZA Order Number: [id number] Reading MD: Joselin Montez Measurements Intervals [place] Rate: 97 P: 29 MN: 134 QRS: 64 QRSD: 88 T: 57 QT: 341 QTc: 434 Interpretive Statements SINUS RHYTHM POSSIBLE LEFT ATRIAL ENLARGEMENT [-0.1mV P WAVE IN V1/V2] NONSPECIFIC T-WAVE ABNORMALITYNo previous ECG available for comparison CST XR CHEST PORTABLE Result Date: 07/09/[address] [address] EXAMINATION: XR CHEST PORTABLE INDICATIONS: Chest heaviness COMPARISON: 06/23/2024 FINDINGS: Frontal portable radiographs of the chest limited by portable technique demonstrates normallung expansion without consolidation, effusion, or pneumothorax. No bulky hilar adenopathy. The cardiomediastinal contours are maintained. Heart size is normal. Remote healed fracture deformities of the right third and fourth ribs posterolaterally. The osseous thorax is intact without displaced ribfracture. No acute or aggressive osseous abnormality. IMPRESSION: No radiographic evidence of acute cardiopulmonary disease. Referred By: Interpreted By: David Ramirez MD, 07/09/2024 10:31 AM XR CHEST PORTABLE Result Date: 06/23/[address] [address] INDICATION: Dyspnea COMPARISON: None TECHNIQUE: Single AP radiographic image of the chest FINDINGS: No pneumothorax or pleural effusion. Mild central peribronchial cuffing. No focal airspace consolidation. Pulmonary vasculature and cardiomediastinal silhouette within normal limits. No acute osseous abnormality. Chronic, healed fractures of posterior right ribs 3 and 4. IMPRESSION: Mild central peribronchial cuffing, compatible with bronchitis versus reactive airway disease. Referred By: InterpretedBy: Yusuf Ashby MD, 06/23/2024 9:[address] ORBITS W CON Result Date: 06/23/[address] [address] EXAM: CT ORBITS W CON DATE: 06/23/2024 COMPARISON: None INDICATION: Right eye swelling since waking up thismorning. TECHNIQUE: Postcontrast imaging with 100 cc intravenous Isovue-370 right forearm. A dose lo wering technique was used for this procedure, which may include, but is not limited to, dose reduction technique, automated exposure control, iterative reconstruction, ALARA (As Low As Reasonably Achievable), or Image Gently techniques. FINDINGS: There is diffuse asymmetric swelling of the right side soft tissues. Mild involvement of the right side of the nose and upper eyelid. These findings extend just pass the lateral margin of the bony orbit. Findings are more severe in the lower eyelid andover the right maxillary sinus wall. No focal abnormality suggestive of an abscess. The globes are intact. There is mild diffuse asymmetric conjunctival enhancement and possibly some anterior scleral enhancement on the right side. The intraconal and post septal fat are normal low-density. Normal and symmetric appearance of the extraocular muscles and lacrimal glands. Symmetric enhancement of the ophthalmic arteries. The paranasal sinuses are clear. No bone destruction. The orbital wdwty-om-infygiae not include the oral cavity. This could be correlated with direct visualization of the teeth as oral pathology could potentially extend into the facial soft tissues. Normal enhancement of the visualized portions of the parotid glands. IMPRESSION: 1. Large area of abnormal periorbital soft tissue. 2. Asymmetric conjunctival enhancement on the right side. Potential anterior scleral enhancement on the right side. Referred By: Interpreted By: Flynn Flores MD, 06/23/2024 7:27 PM Discharge Medications: Medication List CONTINUE taking these medications Morning Afternoon Evening Bedtime As Needed Dexcom G6 Sensor Misc See Instructions Dexcom G6 Transmitter Misc See Instructions Omnipod 5 [id number] Pods Gen 5 Misc USE AND CHANGE EVERY 48 HOURS USE AND CHANGE EVERY 48 HOURS ASK your doctor about these medications Morning Afternoon Evening Bedtime As Needed HumaLOG 100 UNIT/ML injection (VIAL) Inject 0-80 Units into the skin see administration instructions. Basal: 0.9 units/hr continuous Bolus (max of 30 units/bolus): - CHO ratio: 1 unit: 15 g CHO - Sensitivity Factor: 1 units: 55 mg/dL over target - Target BG = 150 mg/dL Programmed duration of action: 5 hours. Last time this was given: 14 Units on July 10, 2024 1:55 AM Last time this was given: July 10, 2024 1:55 AM Generic drug: insulin lispro Inject 0-80 Units into the skin see administration instructions. Basal: 0.9 units/hr continuous Bolus (max of 30 units/bolus): - CHO ratio: 1 unit: 15 g CHO - Sensitivity Factor: 1 units: 55 mg/dL over target - Target BG = 150 mg/dL Programmed duration of action: 5 hours. levothyroxine 100 MCG tablet Commonly known as: SYNTHROID Take 1 tablet (100 mcg total) by mouth every morning. 1 tablet Disposition: Left AMA Patient Instructions: Time Spent on Discharge: more than 30 minutes Signed: CARINE SIMON DO MATOLOGY SPECIALIST documented in this encounter Medications at Time of Discharge Continuous Glucose Sensor (DEXCOM G6 SENSOR) [facility] 12/03/2023 Continuous Glucose Transmitter (DEXCOM G6 TRANSMITTER) [facility] 01/07/2024 HUMALOG 100 UNIT/ML injection (VIAL) Inject 0-80 Units into the skin see administration instructions. Basal: 0.9 units/hr continuous Bolus (max of 30 units/bolus): - CHO ratio: 1 unit: 15 g CHO - Sensitivity Factor: 1 units: 55 mg/dL over target - Target BG = 150 mg/dL Programmed duration of action: 5 hours. 11/29/2023 Insulin Disposable Pump (OMNIPOD 5 G6 PODS, GEN 5,) [facility] USE AND CHANGE EVERY 48 HOURS 08/23/2023 levothyroxine (SYNTHROID) 100 MCG tablet Take 1 tablet (100 mcg total) by mouth every morning. documented as of this encounter Progress Notes * Shannan Ross MD - 07/09/2024 11:59 PM CST CROSS-COVER NOTE Notified that pt remains adamant about eating, planning to leave AMA tonight over this if she cannot eat until tomorrow. AG is now closed. Agreeable to compromise - if AG remains closed on follow-up BMP, we can advance diet to carb- controlled. Must follow this strictly, to which she agreed per nursing. AG 6.4 on repeat BMP, glu 189. Reviewed insulin dosing with pharmacy - will give NPH 15 units x1, in addition to the Lantus dose given earlier. MATOLOGY SPECIALIST documented in this encounter H&P Notes * Jayme Francois NP - 07/09/2024 12:29 PM CST ATTENDING: JAYME FRANCOIS NP PRIMARY CARE PROVIDER: JENNIFER RAMIREZ MD CC: feeling bad HPI: Arturo Mendoza is a 39-year-old female with past medical history of diabetes type 1, neuropathy, hypothyroidism, Raynaud's syndrome, who presented to the emergency room with shortness of breath and fatigue. Patient reports her Dexcom and insulin pump has not been working properly. Reports that she was discharged from the hospital 4 days ago and her Dexcom was not sinking with her insulin pump. Patient is unable to state her insulin dose is via insulin pump. She reports she thought it was out and attempted to refill but was advised that she was too early for refills at her pharmacy. Has not been ableto give herself any bolus insulin due to the Dexcom not sinking. Has had associated symptoms of feeling fatigue, nauseous, vomiting, decreased p.o. intake and bodyaches. She decided to come to the emergency room today for further evaluation. In the ED, patient was noted to be angry and using profanity at the staff including myself and was noted to be eating food from [employer] restaurant this despite the nurse telling her she needs to be n.p.o. for an insulin drip. Laboratory data revealed sodium 125, H&H 11.4/15.6, glucose 396, alk phos 179, TSH 6.6, VBG with pH 7.18, pCO2 28, pO2 43, otherwise unremarkable. Urine analysis had greater than 1000 glucose. Urine drug screen was unremarkable. Patient was treated with 10 units IV insulin and started on a basal bolus regimen given her refusalto be n.p.o. on the insulin drip. Admitted for further management. Past Medical History: Diagnosis Date Anemia Cataract Diabetes mellitus ([facility]) Disease of thyroid gland Raynaud's syndrome without [...] Never Sexual activity: Not Currently control/protection: Surgical Other Topics Concern Not on file Social History Narrative Not on file Social Drivers of Health Financial Resource Strain: High Risk (06/24/2024) Overall Financial Resource Strain (CARDIA) Difficulty of Paying Living Expenses: Very hard Food Insecurity: No Food Insecurity (06/24/2024) Hunger Vital Sign Worried About Running Out of Food in the Last Year: Never true Ran Out of Food in the Last Year: Never true Transportation Needs: No Transportation Needs (06/24/2024) PRAPARE - Transportation Lack of Transportation (Medical): No Lack of Transportation (Non-Medical): No Physical Activity: Not on file Stress: Stress Concern Present (06/24/2024) [employer] - Occupational Stress Questionnaire Feeling of Stress : To some extent Social Connections: Socially Isolated (06/24/2024) Social Connection and Isolation Panel [NHANES] Frequency of Communication with Friends and Family: Three times a week Frequency of Social Gatherings with Friends and Family: More than three times a week Attends Religion Services: Never Active Member of Clubs or Organizations: No Attends Club or Organization Meetings: Never Marital Status: Intimate Partner Violence: Not At Risk (06/24/2024) Humiliation, Afraid, Rape, and Kick questionnaire Fear of Current or Ex-Partner: No Emotionally Abused: No Physically Abused: No Sexually Abused: No Housing Stability: High Risk (06/24/2024) Housing Stability Vital Sign Unable to Pay for Housing in the Last Year: Yes Number of Times Moved in the Last Year: 0 Homeless in the Last Year: No Family History Problem Relation Name Age of Onset Stroke Father Caleb Diabetes Father Caleb Hypertension Father Caleb Diabetes Sister Elke ALS Maternal Grandfather Prior to Admission medications Medication Sig Start Date End Date Taking? Authorizing Provider Continuous Glucose Sensor (DEXCOM G6 SENSOR) [facility] 12/03/23 Default History Genericprovider Continuous Glucose Transmitter (DEXCOM G6 TRANSMITTER) [facility] 01/07/24 Default History Genericprovider HUMALOG 100 UNIT/ML injection (VIAL) Inject 0-80 Units into the skin see administration instructions. Basal: 0.9 units/hr continuous Bolus (max of 30 units/bolus): - CHO ratio: 1 unit: 15 g CHO - Sensitivity Factor: 1 units: 55 mg/dL over target - Target BG = 150 mg/dL Programmed duration of action: 5 hours. 11/29/23 Default History Genericprovider Insulin Disposable Pump (OMNIPOD 5 G6 PODS, GEN 5,) Misc USE AND CHANGE EVERY 48 HOURS 08/23/23 Default History Genericprovider levothyroxine (SYNTHROID) 100 MCG tablet Take 1 tablet (100 mcg total) by mouth every morning. Default History Genericprovider I have reviewed current outpatient medications and reconciled them for inpatient admission. Appropriate medications to be continued. Inappropriate medications to be held for now. No Known Allergies ROS: A 10 point review of systems was taken and pertinent positives and negatives as per HPI. All othersnegative save as noted in HPI. PHYSICAL EXAM: No intake or output data in the 24 hours ending 07/09/24 1229 Patient Vitals for the past 24 hrs: BP Temp Temp src Pulse Resp SpO2 Height Weight 07/09/24 1200 (!) 152/91 -- -- -- -- 100 % -- -- 07/09/24 1145 (!) 145/102 -- -- -- -- 100 % -- -- 07/09/24 0936 (!) 140/105 98.7 ??F (37.1 ??C) Oral (!) 104 18 98 % 1.6 m (5' 3 ) 54.4 kg (120 lb) Intake/Output :[id number]@ Constitutional: Well developed, Well nourished, No acute distress, Non-toxic appearance. HENT: Normocephalic, Atraumatic, Bilateral external ears normal, Oropharynx moist, No oral exudates, Nose normal. Eyes: PERRL, EOMI, Conjunctiva normal, No discharge. Neck- Normal range of motion, No tenderness, Supple, No stridor. Respiratory: Bilaterally clear to auscultation with no rales, rhonchi, or wheezes. Good aeration. No accessory muscle use. Cardiovascular: S1, S2 present, regular rate and rhythm. No murmurs, rubs, or gallops. Bilateral radial and dorsalis pedis pulses +2. No pedal edema. GI: Bowel sounds normal, Soft, No tenderness or guarding, No masses, No pulsatile masses. Musculoskeletal: Intact distal pulses, No edema, No tenderness, No cyanosis, No clubbing. Good range of motion in all major joints. No tenderness to palpation or major deformities noted. Back: No tenderness. Integument: Warm, Dry, No erythema, No rash. Lymphatic: No lymphadenopathy noted. Neurologic: Alert & oriented x 3, Cranial nerves II-XII grossly intact. Normal motor function, Normal sensory function, No focal deficits noted. Psychiatric: Affect normal, Judgment normal, Mood normal Labs: Recent Labs Lab 07/09/24 1042 WBC 8.60 RBC 5.61* HGB 15.2 HCT 47.3 MCV 84.3 MCH 27.1 MCHC 32.1 PLT 594* RDW 13.9 MPV 9.9 PERNEU 77.4 PERLYM 16.2 PERMON 3.5 NEUC 6.66 LYMC 1.39 MONOC 0.30 EOSC 0.08 BASOC 0.10* DTYPE AUTOMATED DIFFERENTIAL Recent Labs Lab 07/09/24 1042 NA 125* K 4.8 CL 98 CO2 11.4* AGAP 15.6* BUN 16 CR 1.11* BUNCREATININ 14.4 GLU 396* CA 9.0 TP 9.0* ALB 3.7 TBIL 0.4 ALKP 179* AST 17 ALT 17 No results for input(s): CHOL , TRI , HDL , LDL , HGBA1C , TSH in the last 168 hours. No results for input(s): APTT , INR , PTT in the last 168 hours. Recent Labs Lab 07/09/24 1042 TROP 46 No results for input(s): LACTICACID , PROCT in the last 168 hours. No results for input(s): PH , PCO2 , PO2 , [id number] , BICARBWB , BASEDEFICIT , BASEEXCESS in the last 168 hours. No results found for this or any previous visit. 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1985 Requested By: BRIANNA MENDOZA Order Number: [id number] Chrissy MD: Measurements Intervals AxisRate: 97 P: 29 MN: 134 QRS: 64 QRSD: 88 T: 57 QT: 341 QTc: 434 Interpretive Statements SINUS RHYTHM POSSIBLE LEFT ATRIAL ENLARGEMENT [-0.1mV P WAVE IN V1/V2] NONSPECIFIC T-WAVE ABNORMALITY No previous ECG available for comparison XR CHEST PORTABLE Result Date: 07/09/2024 [place] [address] EXAMINATION: XR CHEST PORTABLE INDICATIONS: Chest heaviness COMPARISON: 06/23/2024 FINDINGS: Frontal portable radiographs of the chest limited by portable technique demonstrates normallung expansion without consolidation, effusion, or pneumothorax. No bulky hilar adenopathy. The cardiomediastinal contours are maintained. Heart size is normal. Remote healed fracture deformities of the right third and fourth ribs posterolaterally. The osseous thorax is intact without displaced ribfracture. No acute or aggressive osseous abnormality. IMPRESSION: No radiographic evidence of acute cardiopulmonary disease. Referred By: Interpreted By: David Ramirez MD, 07/09/2024 10:31 AM XR CHEST PORTABLE Result Date: 06/23/2024 [place] [address] INDICATION: Dyspnea COMPARISON: None TECHNIQUE: Single AP radiographic image of the chest FINDINGS: No pneumothorax or pleural effusion. Mild central peribronchial cuffing. No focal airspace consolidation. Pulmonary vasculature and cardiomediastinal silhouette within normal limits. No acute osseous abnormality. Chronic, healed fractures of posterior right ribs 3 and 4. IMPRESSION: Mild central peribronchial cuffing, compatible with bronchitis versus reactive airway disease. Referred By: InterpretedBy: Yusuf Ashby MD, 06/23/2024 9:[address] ORBITS W CON Result Date: 06/23/[address] [address] EXAM: CT ORBITS W CON DATE: 06/23/2024 COMPARISON: None INDICATION: Right eye swelling since waking up thismorning. TECHNIQUE: Postcontrast imaging with 100 cc intravenous Isovue-370 right forearm. A dose lo wering technique was used for this procedure, which may include, but is not limited to, dose reduction technique, automated exposure control, iterative reconstruction, ALARA (As Low As Reasonably Achievable), or Image Gently techniques. FINDINGS: There is diffuse asymmetric swelling of the right side soft tissues. Mild involvement of the right side of the nose and upper eyelid. These findings extend just pass the lateral margin of the bony orbit. Findings are more severe in the lower eyelid andover the right maxillary sinus wall. No focal abnormality suggestive of an abscess. The globes are intact. There is mild diffuse asymmetric conjunctival enhancement and possibly some anterior scleral enhancement on the right side. The intraconal and post septal fat are normal low-density. Normal and symmetric appearance of the extraocular muscles and lacrimal glands. Symmetric enhancement of the ophthalmic arteries. The paranasal sinuses are clear. No bone destruction. The orbital [id number]-[id number] not include the oral cavity. This could be correlated with direct visualization of the teeth as oral pathology could potentially extend into the facial soft tissues. Normal enhancement of the visualized portions of the parotid glands. IMPRESSION: 1. Large area of abnormal periorbital soft tissue. 2. Asymmetric conjunctival enhancement on the right side. Potential anterior scleral enhancement on the right side. Referred By: Interpreted By: Flynn Flores MD, 06/23/2024 7:27 PM MRA HEAD WO CON Result Date: 06/10/2024 PROCEDURE: MRI BRAIN WWO CONTRAST, MRI ANGIO BRAIN ARTERIAL WO CONT, MRI ORBITS OR FACE WWO CONTRAST, MRI ANGIO BRAIN VENOUS WWO CONT, DATE/TIME OF EXAM: 06/09/2024 11:15 PM, LOCATION [facility] INDICATION: H54.62: Vision loss of left eye ADDITIONAL CLINICAL INFORMATION: Ordering Provider Reason For Exam: r/o mass/IIH (accession [id number]), vision loss (accession [id number]), vision loss (accession [id number]), vision loss (accession [id number]) Technologist Note: Does the patient have a pacemaker or defibrillator?->No Does the patient have metal implants or stents?->No Additional: 1 year old female with PMH of IDDM, OU cataracts (s/p lens surgery on the right) presentsto ED for papilledema w/u sent in by ophthalmology. Pt with worsening left vision. States that she has vision at the top of her visual field due to constant glares of light which she has been experiencing for the past week. Was sent to retinal specialist by bulkhead carpenter for preoperative ophthalmic evaluation prior to left eye lens surgery. Denies headaches, rash, fever, n/v/d. . CONTRAST: GADOB UTROL 1 MMOL/ML IV SSM SO:5 mL EXAMINATION: 1.Magnetic resonance imaging (MRI) of the brain withoutand with contrast 2.MRI of the orbits without [...] right PICA. The distal vertebral arteries appear o therwise patent. The basilar artery is small in [...] Agnieszka Castro MD on 06/10/2024 10:52 AM MRI FACIAL WWO CON Result Date: 06/10/2024 PROCEDURE: MRI BRAIN WWO CONTRAST, MRI ANGIO BRAIN ARTERIAL WO CONT, MRI ORBITS OR FACE WWO CONTRAST, MRI ANGIO BRAIN VENOUS WWO CONT, DATE/TIME OF EXAM: 06/09/2024 11:15 PM, LOCATION [facility] INDICATION: H54.62: Vision loss of left eye ADDITIONAL CLINICAL INFORMATION: Ordering Provider Reason For Exam: r/o mass/IIH (accession [id number]), vision loss (accession [id number]), vision loss (accession [id number]), vision loss (accession [id number]) Technologist Note: Does the patienthave a pacemaker or defibrillator?->No Does the patient [...] week. Was sent to retinal specialist by bulkhead carpenter for preoperative ophthalmic evaluation prior to left eye lens surgery. Denies headaches, rash, fever, n/v/d. . CONTRAST: GADOBU TROL 1 MMOL/ML IV SSM SO:5 mL EXAMINATION: [...] technique. 4.MRV of the head was performed utilizingcontrast enhanced time-resolved technique after the uneventful administration of 5 mL GADAVIST intravenous gadolinium contrast. COMPARISON: No prior study is available for comparison at the time of this dictation. FINDINGS: Brain: No evidence of acute or chronic hemorrhage is identified. No evidence of acute cerebral infarction is seen. The ventricles are of normal size, shape, and morphology. Nomass effect or midline shift is seen. Trace periventricular white matter FLAIR hyperintensities arenonspecific and likely a normal variant. No enhancing [...] glands appear normal. The optic nerves are symmetricin size and signal. No abnormal enhancement is [...] right PICA. The distal vertebral arteries appear ot herwise patent. The basilar artery is small in [...] and visible portions of the internal jugular veinsappear normal without evidence of thrombosis. IMPRESSION: 1.No [...] Agnieszka Castro MD on 06/10/2024 10:52 AM MRA HEAD WWO CON Result Date: 06/10/2024 PROCEDURE: MRI BRAIN WWO CONTRAST, MRI ANGIO BRAIN ARTERIAL WO CONT, MRI ORBITS OR FACE WWO CONTRAST, MRI ANGIO BRAIN VENOUS WWO CONT, DATE/TIME OF EXAM: 06/09/2024 11:15 PM, LOCATION [facility] INDICATION: H54.62: Vision loss of left eye ADDITIONAL CLINICAL INFORMATION: Ordering Provider Reason For Exam: r/o mass/IIH (accession [id number]), vision loss (accession [id number]), vision loss (accession [id number]), vision loss (accession [id number]) Technologist Note: Does the patienthave a pacemaker or defibrillator?->No Does the patient [...] week. Was sent to retinal specialist by bulkhead carpenter for preoperative ophthalmic evaluation prior to left eye lens surgery. Denies headaches, rash, fever, n/v/d. . CONTRAST: GADOBU TROL 1 MMOL/ML IV SSM SO:5 mL EXAMINATION: [...] technique. 4.MRV of the head was performed utilizingcontrast enhanced time-resolved technique after the uneventful administration of 5 mL GADAVIST intravenous gadolinium contrast. COMPARISON: No prior study is available for comparison at the time of this dictation. FINDINGS: Brain: No evidence of acute or chronic hemorrhage is identified. No evidence of acute cerebral infarction is seen. The ventricles are of normal size, shape, and morphology. Nomass effect or midline shift is seen. Trace periventricular white matter FLAIR hyperintensities arenonspecific and likely a normal variant. No enhancing [...] glands appear normal. The optic nerves are symmetricin size and signal. No abnormal enhancement is [...] right PICA. The distal vertebral arteries appear ot herwise patent. The basilar artery is small in [...] and visible portions of the internal jugular veinsappear normal without evidence of thrombosis. IMPRESSION: 1.No [...] Agnieszka Castro MD on 06/10/2024 10:52 AM MRI BRAIN WWO CON Result Date: 06/10/2024 PROCEDURE: MRI BRAIN WWO CONTRAST, MRI ANGIO BRAIN ARTERIAL WO CONT, MRI ORBITS OR FACE WWO CONTRAST, MRI ANGIO BRAIN VENOUS WWO CONT, DATE/TIME OF EXAM: 06/09/2024 11:15 PM, LOCATION [facility] INDICATION: H54.62: Vision loss of left eye ADDITIONAL CLINICAL INFORMATION: Ordering Provider Reason For Exam: r/o mass/IIH (accession [id number]), vision loss (accession [id number]), vision loss (accession [id number]), vision loss (accession [id number]) Technologist Note: Does the patienthave a pacemaker or defibrillator?->No Does the patient [...] week. Was sent to retinal specialist by bulkhead carpenter for preoperative ophthalmic evaluation prior to left eye lens surgery. Denies headaches, rash, fever, n/v/d. . CONTRAST: GADOBU TROL 1 MMOL/ML IV SSM SO:5 mL EXAMINATION: [...] technique. 4.MRV of the head was performed utilizingcontrast enhanced time-resolved technique after the uneventful administration of 5 mL GADAVIST intravenous gadolinium contrast. COMPARISON: No prior study is available for comparison at the time of this dictation. FINDINGS: Brain: No evidence of acute or chronic hemorrhage is identified. No evidence of acute cerebral infarction is seen. The ventricles are of normal size, shape, and morphology. Nomass effect or midline shift is seen. Trace periventricular white matter FLAIR hyperintensities arenonspecific and likely a normal variant. No enhancing [...] glands appear normal. The optic nerves are symmetricin size and signal. No abnormal enhancement is [...] right PICA. The distal vertebral arteries appear ot herwise patent. The basilar artery is small in [...] and visible portions of the internal jugular veinsappear normal without evidence of thrombosis. IMPRESSION: 1.No [...] Agnieszka Castro MD on 06/10/2024 10:52 AM XR CHEST PA+LAT Result Date: 06/10/2024 PROCEDURE: XR CHEST 2VW, DATE/TIME OF EXAM: 06/09/2024 7:34 PM, LOCATION [facility] INDICATION: H54.62: Vision loss of left eye ADDITIONAL CLINICAL INFORMATION: Ordering Provider Reason For Exam: r/o infection COMPARISON: None. TECHNIQUE: Frontal and lateral radiographs of the chest. FINDINGS/IMPRESSION: Very subtle nodular airspace opacity in the right midlung on the AP view andno correlate on the lateral view likely corresponds to the costochondral junction of the right fourth anterior rib. Otherwise, no confluent consolidation, pleural effusion, or pneumothorax. The cardiomediastinal silhouette is normal. The visible bony thorax is intact. Report dictated by Moon Reid MD (radiology technologist). I, Randy Pagan MD have personally reviewed and interpreted this examination/study. 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1985 Requested By: BRIANNA MENDOZA Order Number: [id number] Reading MD: Measurements Intervals [place] Rate: 97 P: 29 MN: 134 QRS: 64 QRSD: 88 T: 57 QT: 341 QTc: 434 Interpretive Statements SINUS RHYTHM POSSIBLE LEFT ATRIAL ENLARGEMENT [-0.1mV P WAVE IN V1/V2] NONSPECIFIC T-WAVE ABNORMALITY No previous ECG available for comparison ASSESSMENT AND PLAN: DKA and diabetes type 1 Blood sugar 388, anion gap 15.6, VBG with pH 7.18 Treated with a fluid bolus in the ED, unable to start insulin drip given patient's noncompliance with her diet Received 10 units IV insulin and monitor blood sugars every hour x 4 Started on a basal bolus regimen Monitor on telemetry and continue IV hydration Insulin pump turned off We will consult endocrinology and check A1c Hypovolemic hyponatremia Sodium 125, started on IV hydration and follow labs Acute kidney injury-suspect prerenal due to dehydration BUN 16, creat 1.11, started on IV hydration and follow labs Hypothyroidism TSH elevated at 6.66, free T4 is normal at 0.84 Unclear if patient has been compliant with her home medication Will resume home medication Elevated blood pressure-suspect hypertension BP elevated, not on any home antihypertensives per home medication Will start lisinopril 5 mg daily DVT prophylaxis: lovenox Advanced care planning: Aggregate face to face time discussing end of life advance care planning with patient and/or family Power of Shading Painter approximately 16 min. Discussed CPR/intubation/Treatment goals/quality of life/intensity of care. Patient/Family desires: full code Cosigned by Carine Simon DO at 07/10/2024 8:36 AM RHEUMATOLOGY SPECIALIST MATOLOGY SPECIALIST MATOLOGY SPECIALIST Associated attestation - Carine Simon DO - 07/10/2024 8:36 AM RHEUMATOLOGY SPECIALIST I, Carine Simon DO, participated in the care of this patient today and discussed the plan of care with advance provider, Jayme Francois, who shared in this visit. I have reviewed the BREANNE's documentation and agree with the findings except as I have documented. I personally spent a substantial amount of time on medical decision making and caring for this patient. Patient seen and examined. SCIENTIFIC EDITOR/PA note reviewed. General: . Awake, alert, chronically ill appearing CV: RRR Pulmonary: Clear to auscultation. Nonlabored. No wheezing/rhonchi/crackles Abdomen: non-distended Extremities: No significant edema Neuro: alert and oriented Agree with plan as outlined above. DKA Type 1 DM Blood glucose 388, AG 15, pH 7.1 Patient has been noncompliant with insulin pump, also without appropriate sensors for DEXCOM and does not know how to utilize pump manually. Hold insulin pump, asked RN to remove Discussed case with intensivisit, Recommends IV insulin and re-evaluate prior to initiating gtt. Patient noncompliant with diet, eating panera and potato chips despite NPO status and multiple discussion regarding importance of strict NPO for now Additional IV insulin given; AG closed. Started subq insulin Diet advanced to low carb CARINE SIMON DO documented in this encounter ED Notes * Vania Vigil CNA - 07/10/2024 9:39 AM CST This tech found patient walking around the ER floor. Patient stated I need to walk around, I've been in my room for 3 days and I haven't seen doctor and I am ready to go I informed patient that shewas not allowed to walk around or leave unless AMA paper work was signed. Patient escorted back to room and patient slammed door in this techs face. RN and wire charger notifed. MATOLOGY SPECIALIST * Roni Mai RN - 07/10/2024 9:39 AM CST This RN called to patient room by tech. Patient states that she wants to leave. States, I am not in DKA anymore, I don't need to be here. Patient educated by this RN on plan of care. Patient is alert and oriented to person, place, time, and event. Patient declining any further treatment. Patient adamantly states that it is their wish to leave. Risks of leaving prior to completion of ED care were explained to the patient. Potential benefits of staying until ED course of treatment is completed explained to this patient. Patient verbalizes an understanding of information provided and shows thecapacity to appreciate the significance of that information as it pertains to their individual situation. Patient signed AMA form. She ambulated out of department with steady gait. MATOLOGY SPECIALIST * Eileen Alston RN - 07/10/2024 9:07 AM CST This RN to bedside to give patient morning Insulin. Patient asked how many units were given. When told the amount on insulin patient stated 4 units? Are you fucking kidding me? . To which this RN replied that the amount on insulin is based on a sliding scale and that her BG was 172 which required 4 units of Lispro. Pt then proceeded to verbally escalate and yell at this RN that this is the worst stay I have ever had here and why won't they just let me go home? . This RN explained that yelling is not appropriate and is not allowing for any effective communication. Frederick Parker and Radha Hathaway at bedside during this conversation. Explained that the nurses do not control patient discharges and that she is welcome to speak to the doctor regarding this. Pt continued to yell regarding herblood sugar and stated 4 units and fucking pancake for breakfast isn't going to help my blood sugar. I have an insulin pump at home and a monitor and it controls everything. I can manage my blood sugar at home, I don't need to be here. The only reason I came is because my dexcom broke and I couldn't get a new one until today because of insurance . Pt requesting to see doctor regarding discharge,message sent to MD at this time. MD made aware of conversation with patient. MATOLOGY SPECIALIST * Jb Archer RN - 07/10/2024 6:23 AM CST Pt reports she is hungry to this RN. This RN stated to patient that she could eat once breakfast trays come around in a few hours. Pt is becoming increasingly agitated, stating that this is the worstexperience she has had in this hospital, stating that we are not letting her eat. This RN educated patient on why we are controlling her diet in an effort to keep her sugars under control. Pt asked W hen can I leave and it won't be against medical advice , this RN replied upon discharge. MATOLOGY SPECIALIST MATOLOGY SPECIALIST * Jb Archer RN - 07/10/2024 4:50 AM CST Pt states she is hungry and asked when she can eat. This RN told her that she would be able to eat when the breakfast trays get here in a few hours. Pt verbalized understanding. MATOLOGY SPECIALIST MATOLOGY SPECIALIST * Jb Archer RN - 07/09/2024 8:52 PM CST Pt asked when she could eat. She is getting increasingly frustrated and this RN told her we can't let her eat because it would drive her sugar back up and open her gap and then we'd have to put her on an insulin drip and admit to the unit. Pt is adamant that she doesn't care, stating my pancreas is already I'll just have to be on a drip for life just let me eat and put me on the drip. This RN told her that we are trying to avoid putting her on the insulin drip. MATOLOGY SPECIALIST * Jb Archer RN - 07/09/2024 7:33 PM CST Pt provided with two cups of ice water at this time. MATOLOGY SPECIALIST * Lobito Jennings RN - 07/09/2024 6:41 PM CST Provider gave written orders to allow pt to drink sugar free starry if she would not eat anymore food. This RN went into pts room and asked her if I gave her a sugar free starry if she would allow meto take the rest of the food in her room out to the nurses station. Pt agreed and started yelling and asking Why can't I have some fucking ice water? It has no sugar and no carbs. I dont understanding why I can't have any ice water. I havent had anything to drink since . This RN explainedto pt that we were trying to help her and by eating food she was going to open up her anion gap andput herself back in DKA. Pt stated I dont care I am fucking starving. Provider made aware of pt blood glucose level. MATOLOGY SPECIALIST * Lobito Jennings RN - 07/09/2024 6:28 PM CST Pt asking this RN for sugar free Starry. This RN explained that pt was NPO. Pt started raising voice and stating I havent had anyting real to fucking drink since . I am so thirsty. Why can'tI have a sugar free starry when it wont effect my sugar? I know its not your fault but I am gettingpissed off because I am missing another one of my son's hockey games and I just want something to drink. Pt also had empty bag of chips lying on the phone that she had ate. Provider made aware. MATOLOGY SPECIALIST * Lobito Jennings RN - 07/09/2024 5:40 PM CST Pt food tray ordered and pt verbalized that she promised not to eat until she was told she could. MATOLOGY SPECIALIST * Lobito Jennings RN - 07/09/2024 5:35 PM CST Pts mother updated on pts plan of care. Pt gave permission to speak with her. MATOLOGY SPECIALIST * Lobito Jennings RN - 07/09/2024 5:27 PM CST This RN at bedside and pt asking for something to drink. Pt update on plan of care and explained the goals of her blood glucose levels. Pt asking for a diet order to be placed for when she is able toeat so she has food waiting for her. This RN made MD aware. MATOLOGY SPECIALIST MATOLOGY SPECIALIST * Lobito Jennings RN - 07/09/2024 2:45 PM CST This RN at bedside. Pt educated again on the importance of being NPO and getting her blood glucose under control. Pt states that she understands and has not had anything to eat in a while. Provider made aware. MATOLOGY SPECIALIST * Pat Euceda RN - 07/09/2024 2:15 PM CST Pt requesting diet stary soda. Pt informed that she is NPO while we try to lower her blood glucose.PT states I don't give a fuck. I already ordered food and ate it because I didn't eat anything for4 days. Pt informed that she will not be provided a diet stary by staff. Pt states she will eat her panera then that she ordered. MATOLOGY SPECIALIST MATOLOGY SPECIALIST * Pat Euceda RN - 07/09/2024 2:02 PM CST Pt ambulated to the bathroom with a steady gait MATOLOGY SPECIALIST * Lobito Jennings RN - 07/09/2024 1:31 PM CST This RN assisted pt in turning Dexcom off and removing it from pts arm. Pt resting in bed with calllight within reach. MATOLOGY SPECIALIST * Lobito Jennings RN - 07/09/2024 1:19 PM CST This RN spoke with pt mother and updated on pt care. MATOLOGY SPECIALIST * Lobito Jennings RN - 07/09/2024 11:35 AM CST This RN at bedside. Pt sitting up in bed and eating bread co. This RN educated pt on the importanceof not eating d/t high blood sugar and needing to see what test results say. Pt stated I know but I havent ate since so no offense they can kiss my ass. Provider made aware. MATOLOGY SPECIALIST * LIZZY Dean - 07/09/2024 10:38 AM CST [place], [place] EMERGENCY DEPARTMENT ENCOUNTER HISTORICAL INFORMATION Primary Care Doctor: JENNIFER RAMIREZ MD Patient information was obtained primarily from the patient, nursing notes, History/Exam limitations: None Provider at Bedside Date/Time Event User Comments 07/09/24 [id number] Provider at Bedside Assessing Patient BRIANNA MENDOZA -- CHIEF COMPLAINT Hyperglycemia and Rib Pain HPI Arturo Mendoza is a 39-year-old female who presents with extreme fatigue and feeling like shit . Ptwho has PmHx of DM1, hypothyroidism, anemia and recently admitted to this hospital for lam-orbitalcellulitis states since she has been sleeping more and just doesn't feel well. Pt denies n/v but not eating or drinking much. No cough or fever. Pt c/o chest wall pain stating she popped a rib again when picking up her child. Pt is poorly controlled DM1. Pt states she has her omnipod on but her dexcom sensors she is out of currently. Pt does have a hx of DKA. PAST MEDICAL HISTORY Past Medical History: Diagnosis Date Anemia Cataract Diabetes mellitus ([facility]) Disease of thyroid gland Raynaud's syndrome without gangrene Negative unless otherwise noted SURGICAL HISTORY Past Surgical History: Procedure Laterality Date EYE SURGERY Left lens replacement TUBAL LIGATION Negative unless otherwise noted CURRENT MEDICATIONS Current Facility-Administered Medications: 0.45 % NaCl with KCl 20 mEq infusion, , Intravenous, Continuous, Carine Simon, acetaminophen (TYLENOL) tablet 650 mg, 650 mg, Oral, Q4H PRN, Jayme Francois NP albuterol sulfate HFA 108 (90 Base) MCG/ACT inhaler 2 puff, 2 puff, Inhalation, Q4H PRN, Jayme Francois NP dextrose 10 % bolus infusion 125-250 mL, 125-250 mL, Intravenous, PRN, Carine Simon DO enoxaparin (LOVENOX) 40 MG/0.4ML syringe 40 mg, 40 mg, Subcutaneous, Q24H AND [COMPLETED] Moderate Risk for VTE, , , Once, Jayme Francois NP glucagon injection 1 mg, 1 mg, Intramuscular, Once PRN, Carine Simon DO insulin lispro (HUMALOG/ADMELOG) injection 0-16 Units, 0-16 Units, Subcutaneous, Q6H, Carine Simon DO, 14 Units at 07/09/24 1628 ondansetron (ZOFRAN) injection 4 mg, 4 mg, Intravenous, Q8H PRN, Jayme Francois NP senna-docusate (SENOKOT-S) 8.6-50 MG tablet 1 tablet, 1 tablet, Oral, Nightly at bedtime, Jayme Francois NP Current Outpatient Medications: HUMALOG 100 UNIT/ML injection (VIAL), Inject 0-80 Units into the skin see administration instructions. Basal: 0.9 units/hr continuous Bolus (max of 30 units/bolus): - CHO ratio: 1 unit: 15 g CHO - Sensitivity Factor: 1 units: 55 mg/dL over target - Target BG = 150 mg/dL Programmed duration of action: 5 hours., Disp: , Rfl: levothyroxine (SYNTHROID) 100 MCG tablet, Take 1 tablet (100 mcg total) by mouth every morning., Disp: , Rfl: Continuous Glucose Sensor (DEXCOM G6 SENSOR) Misc, , Disp: , Rfl: Continuous Glucose Transmitter (DEXCOM G6 TRANSMITTER) Misc, , Disp: , Rfl: Insulin Disposable Pump (OMNIPOD 5 G6 PODS, GEN 5,) Misc, USE AND CHANGE EVERY 48 HOURS, Disp: , Rfl: ALLERGIES Review of patient's allergies indicates: No Known Allergies FAMILY HISTORY Family History Problem Relation Name Age of Onset Stroke Father Caleb Diabetes Father Caleb Hypertension Father Caleb Diabetes Sister Elke ALS Maternal Grandfather Negative unless otherwise noted SOCIAL HISTORY Social History Socioeconomic History Marital status: Single Tobacco Use Smoking status: Some Days Current packs/day: 0.50 Average packs/day: 0.5 packs/day for 15.0 years (7.5 ttl pk-yrs) Types: Cigarettes Smokeless tobacco: Current Vaping Use Vaping status: Never Used Substance and Sexual Activity Alcohol use: Not Currently Drug use: Never Sexual activity: Not Currently control/protection: Surgical Social Drivers of Health Financial Resource Strain: High Risk (06/24/2024) Overall Financial Resource Strain (CARDIA) Difficulty of Paying Living Expenses: Very hard Food Insecurity: No Food Insecurity (06/24/2024) Hunger Vital Sign Worried About Running Out of Food in the Last Year: Never true Ran Out of Food in the Last Year: Never true Transportation Needs: No Transportation Needs (06/24/2024) PRAPARE - Transportation Lack of Transportation (Medical): No Lack of Transportation (Non-Medical): No Stress: Stress Concern Present (06/24/2024) [employer] - Occupational Stress Questionnaire Feeling of Stress : To some extent Social Connections: Socially Isolated (06/24/2024) Social Connection and Isolation Panel [NHANES] Frequency of Communication with Friends and Family: Three times a week Frequency of Social Gatherings with Friends and Family: More than three times a week Attends Religion Services: Never Active Member of Clubs or Organizations: No Attends Club or Organization Meetings: Never Marital Status: Intimate Partner Violence: Not At Risk (06/24/2024) Humiliation, Afraid, Rape, and Kick questionnaire Fear of Current or Ex-Partner: No Emotionally Abused: No Physically Abused: No Sexually Abused: No Housing Stability: High Risk (06/24/2024) Housing Stability Vital Sign Unable to Pay for Housing in the Last Year: Yes Number of Times Moved in the Last Year: 0 Homeless in the Last Year: No Negative unless otherwise noted REVIEW OF SYSTEMS See HPI. All other systems reviewed and negative PHYSICAL EXAM VITAL SIGNS: Filed Vitals: 07/09/24 0936 07/09/24 1145 07/09/24 1200 07/09/24 1415 BP: (!) 140/105 (!) 145/102 (!) 152/91 (!) 143/86 Pulse: (!) 104 96 Resp: 18 18 Temp: 98.7 ??F (37.1 ??C) TempSrc: Oral SpO2: 98% 100% 100% 100% Weight: 54.4 kg (120 lb) Height: 1.6 m (5' 3 ) Constitutional: Well developed, Well nourished, pt disheveled. HENT: Normocephalic, Atraumatic, Bilateral external ears normal, Oropharynx moist, No oral exudates, Nose normal. Eyes: PERRL, EOMI, Conjunctiva normal, No discharge. Neck- Normal range of motion, No tenderness, Supple, No stridor. Respiratory: Normal breath sounds, No respiratory distress. Cardiovascular: Normal heart rate, Normal rhythm, no chest wall tenderness GI: Bowel sounds normal, Soft, No tenderness, No masses, No pulsatile masses. Musculoskeletal: Intact distal pulses, No edema, No tenderness, No cyanosis, No clubbing. Good range of motion in all major joints. No tenderness to palpation or major deformities noted. Back- No tenderness. Integument: Warm, Dry, No erythema, No rash. Lymphatic: No lymphadenopathy noted. Neurologic: Alert & oriented x 3, Normal motor function, Normal sensory function, No focal deficits noted. Psychiatric: Affect normal, Judgment normal, Mood normal. 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1985 Requested By: BRIANNA MENDOZA Order Number: [id number] Reading MD: Joselin Montez Measurements Intervals [place] Rate: 97 P: 29 MN: 134 QRS: 64 QRSD: 88 T: 57 QT: 341 QTc: 434 Interpretive Statements SINUS RHYTHM POSSIBLE LEFT ATRIAL ENLARGEMENT [-0.1mV P WAVE IN V1/V2] NONSPECIFIC T-WAVE ABNORMALITY No previous ECG available for comparison MATOLOGY SPECIALIST Laboratory tests ordered and reviewed: Results for orders placed or performed during the hospital encounter of 07/09/24 CBC W/DIFF AUTOMATED Result Value Ref Range WBC 8.60 4.5 - 11.0 x10'3/uL RBC 5.61 (H) 4.20 - 5.40 x10'6/uL HGB 15.2 12.0 - 16.0 G/DL HCT 47.3 38.0 - 48.0 % MCV 84.3 81.0 - 99.0 FL MCH 27.1 27.0 - 31.0 PG MCHC 32.1 32.0 - 36.0 G/DL RDW 13.9 11.5 - 14.5 % PLT 594 (H) 130 - 400 x10'3/uL MPV 9.9 9.3 - 12.2 FL DIFFERENTIAL TYPE AUTOMATED DIFFERENTIAL NEUTROPHILS % 77.4 % LYMPHOCYTES % 16.2 % MONOCYTES % 3.5 % EOSINOPHILS 0.9 % BASOPHILS 1.2 % IMMATURE GRANS % 0.8 % ABS. NEUTROPHILS 6.66 1.80 - 7.70 x10'3/uL ABS. LYMPHOCYTES 1.39 1.00 - 4.80 x10'3/uL ABS. MONOCYTES 0.30 0.24 - 0.86 x10'3/uL ABS. EOSINOPHILS 0.08 0.04 - 0.36 x10'3/uL ABS. BASOPHILS 0.10 (H) 0.01 - 0.08 x10'3/uL ABS. IMMATURE GRANULOCYTES 0.07 0.00 - 0.49 x10'3/uL COMPREHENSIVE METABOLIC PANEL Result Value Ref Range GLUCOSE 396 (H) 70 - 99 MG/DL BUN 16 7 - 18 MG/DL CREATININE S/P/B 1.11 (H) 0.55 - 1.02 MG/DL SODIUM S/P/B 125 (L) 136 - 145 MMOL/L POTASSIUM S/P/B 4.8 3.5 - 5.1 MMOL/L CHLORIDE S/P/B 98 97 - 115 MMOL/L CO2 11.4 (L) 21 - 32 MMOL/L CALCIUM S/P/B 9.0 8.5 - 10.1 MG/DL BILIRUBIN TOTAL S/P/B 0.4 0.2 - 1.2 MG/DL TOTAL PROTEIN S/P/B 9.0 (H) 6.4 - 8.2 G/DL ALBUMIN S/P/B 3.7 3.4 - 5.0 G/DL AST 17 15 - 37 U/L ALT 17 14 - 55 U/L ALKALINE PHOSPHATASE S/P/B 179 (H) 50 - 136 U/L ANION GAP 15.6 (H) 2 - 10 MMOL/L BUN CREATININE RATIO 14.4 6 - 26 A/G RATIO 0.7 (L) 1.0 - 2.0 RATIO GFR ESTIMATE 64 (L) >90 ML/MIN/1.73 M2 LIPASE Result Value Ref Range LIPASE 24 13 - 75 UNITS/L URINALYSIS Result Value Ref Range SPECIMEN TYPE URINE CLEAN CATCH COLOR (U) LIGHT YELLOW TRANSPARENCY CLEAR SPECIFIC GRAVITY (U) 1.026 1.001 - 1.030 U PH 5.0 5.0 - 9.0 LEUKOCYTES (U) NEGATIVE NEGATIVE NITRITES NEGATIVE NEGATIVE PROTEIN RANDOM (U) 10 <30 MG/DL GLUCOSE (U) >1000 (A) NORMAL MG/DL KETONES MG/DL (U) >150 (A) NEGATIVE MG/DL UROBILINOGEN NORMAL NORMAL MG/DL BILIRUBIN (U) NEGATIVE NEGATIVE MG/DL BLOOD (U) NEGATIVE NEGATIVE TROPONIN, QUANT Result Value Ref Range TROPONIN I HIGH SENSITIVITY 46 <54 ng/L DRUG SCREEN RAPID Result Value Ref Range AMPHETAMINE (U) NEGATIVE NEGATIVE BARBITURATES SCREEN (U) NEGATIVE NEGATIVE BENZODIAZEPINES SCREEN (U) NEGATIVE NEGATIVE CANNABINOIDS SCREEN (U) NEGATIVE NEGATIVE COCAINE METABOLITES (U) NEGATIVE NEGATIVE METHADONE (U) NEGATIVE NEGATIVE OPIATE SCREEN (U) NEGATIVE NEGATIVE PHENCYCLIDINE PCP (U) NEGATIVE NEGATIVE CREATININE (U) 23.7 (L) 28 - 217 MG/DL ETHANOL Result Value Ref Range ALCOHOL S/P/B <0.003 <0.003 G/DL Blood gas, venous Result Value Ref Range PH VENOUS 7.18 (LL) 7.32 - 7.43 PCO2 VENOUS 28.0 MMHG PO2 VENOUS 43.0 MM HG TOTAL CO2 VENOUS 11.4 (L) 22.0 - 26.0 MMOL/L BASE DEFICIT VENOUS 16.4 MMOL/L O2 SAT VENOUS 64 % BICARB VENOUS 10.5 (L) 22.0 - 29.0 MMOL/L O2 ADMIN VENOUS 21 TSH W/REFLEX Result Value Ref Range TSH 6.660 (H) 0.358 - 3.74 uIU/ML THYROXINE, FREE (FT4) Result Value Ref Range FREE T4 0.84 0.76 - 1.46 NG/DL BASIC METABOLIC PANEL Result Value Ref Range GLUCOSE 441 (HH) 70 - 99 MG/DL BUN 15 7 - 18 MG/DL CREATININE S/P/B 1.06 (H) 0.55 - 1.02 MG/DL SODIUM S/P/B 131 (L) 136 - 145 MMOL/L POTASSIUM S/P/B 3.9 3.5 - 5.1 MMOL/L CHLORIDE S/P/B 104 97 - 115 MMOL/L CO2 16.1 (L) 21 - 32 MMOL/L CALCIUM S/P/B 7.9 (L) 8.5 - 10.1 MG/DL ANION GAP 10.9 (H) 2 - 10 MMOL/L BUN CREATININE RATIO 14.2 6 - 26 GFR ESTIMATE 68 (L) >90 ML/MIN/1.73 M2 POCT glucose Result Value Ref Range GLUCOSE POC 433 (HH) 70 - 99 mg/dL POCT glucose Result Value Ref Range GLUCOSE POC 387 (H) 70 - 99 mg/dL RADIOLOGY XR CHEST PORTABLE Final Result by User, [id number] (07/09 103) [address] [address] EXAMINATION: XR CHEST PORTABLE INDICATIONS: Chest heaviness COMPARISON: 06/23/2024 FINDINGS: Frontal portable radiographs of the chest limited by portable technique demonstrates normal lung expansion without consolidation, effusion, or pneumothorax. No bulky hilar adenopathy. The cardiomediastinal contours are maintained. Heart size is normal. Remote healed fracture deformities of the right third and fourth ribs posterolaterally. The osseous thorax is intact without displaced rib fracture. No acute or aggressive osseous abnormality. IMPRESSION: No radiographic evidence of acute cardiopulmonary disease. Referred By: Interpreted By: David Ramirez MD, 07/09/2024 10:31 AM MEDS GIVEN IN ER: Medications enoxaparin (LOVENOX) 40 MG/0.4ML syringe 40 mg (40 mg Subcutaneous Not Given 07/09/24 1407) acetaminophen (TYLENOL) tablet 650 mg (has no administration in time range) ondansetron (ZOFRAN) injection 4 mg (has no administration in time range) senna-docusate (SENOKOT-S) 8.6-50 MG tablet 1 tablet (has no administration in time range) albuterol sulfate HFA 108 (90 Base) MCG/ACT inhaler 2 puff (has no administration in time range) insulin lispro (HUMALOG/ADMELOG) injection 0-16 Units (14 Units Subcutaneous Given 07/09/24 1628) dextrose 10 % bolus infusion 125-250 mL (has no administration in time range) glucagon injection 1 mg (has no administration in time range) 0.45 % NaCl with KCl 20 mEq infusion (has no administration in time range) ondansetron (ZOFRAN) injection 4 mg (4 mg Intravenous Given 07/09/24 1153) sodium chloride 0.9% bolus infusion 1,000 mL (0 mLs Intravenous Infusion Stop Time 07/09/24 1320) lactated ringers bolus infusion 1,000 mL (0 mLs Intravenous Infusion Stop Time 07/09/24 1558) insulin regular (NOVOLIN R/HUMULIN R) injection 5 Units (5 Units Intravenous Given 07/09/24 1405) insulin regular (NOVOLIN R/HUMULIN R) injection 5 Units (5 Units Intravenous Given 07/09/24 1520) insulin glargine (LANTUS) injection 20 Units (20 Units Subcutaneous Given 07/09/24 1629) ED COURSE & MEDICAL DECISION MAKING Pertinent Labs & Imaging studies reviewed. (See chart for details) Medical Decision Making ED Course as of 07/09/24 1700 Sun Jul 09, 2024 1042 Pt is very nice woman who presents with nonspecific not feeling well - extreme fatigue. Pt hasmultiple medical problems including hypothyroidism and poorly controlled DM. [MP] 1420 Pt in DKA with hyponatremia. Spoke with dr. Simon who accepts admission. Dr. Becerra will consult. Initially insulin drip started but dr. Becerra states he would like to try insulin bolus and iv fluids. Pt eating in room. Hyponatremia may be pseudohyponatremia. Pt now states she has not had her pump on since . Pt's pump currently on. [MP] ED Course User Index [MP] LIZZY Dean CRITICAL ADDENDUM CARE: Indication: DKA Service Time: 40 minutes (excluding billable procedures) Time Type: Intermittent I provided a total of 40 minutes of critical care excluding separately billable procedures. This includes time with, initial bedside evaluation, reviewing old records, review of testing done while under my care, discussion with the staff, nurses, and guiding the patient???s care while in the emergency department. Approximant time distribution: 15 minutes - Initial evaluation, d/w involved parties, attempting to gather old records 5 minutes - Documenting medical record 10 minutes - Review of results (labs, imaging) 10 minutes - Serial repeat bedside evaluation Please see main chart for details. Excludes separately billable procedures. ? ? DATE: 07/09/2024 5:00 PM PATIENT: Arturo Mendoza Case was discussed with the following physician who has accepted the admission: ADMITTING PHYSICIAN: dr. Simon ADMISSION BED TYPE: [facility] CONSULTANTS: 1. Dr. Becerra IMPRESSION: 1. SNOMED CT(R) 1. DKA (diabetic ketoacidosis) ([facility]) DIABETIC KETOACIDOSIS 2. Hyponatremia HYPONATREMIA 3. Weakness ASTHENIA PLAN: 1. Iv fluids, insulin LIZZY Dean PA 07/09/24 1702 Cosigned by Kelly Jorge MD at 07/17/2024 10:49 AM RHEUMATOLOGY SPECIALIST MATOLOGY SPECIALIST MATOLOGY SPECIALIST * Jocy Richardson RN - 07/09/2024 10:18 AM CST Asked patient to provide a urine sample, she replied Not going to happen. It's going to be hours. Pt verbalized understanding that urine sample would be needed when she could provide one. MATOLOGY SPECIALIST * Raquel Johnson RN - 07/09/2024 9:37 AM CST Pt arrives with c/o increased SOB/ heavy chested and fatigue that started . Pt reporting that she injured herself when she tried picking up her son. She heard a couple pops. Family member reporting that she has not ate anything and has not urinated but 2x since then. Family member reporting she has only drank a little water and 1L diet dr chauhan. Pt reporting nausea without vomiting. 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 MATOLOGY SPECIALIST MATOLOGY SPECIALIST MATOLOGY SPECIALIST * Estefania Harp CNA - 07/09/2024 9:37 AM CST Blood glucose 310 MATOLOGY SPECIALIST documented in this encounter Plan of Treatment Not on file documented as of this encounter Goals Goal Patient Goal Type Associated Problems Recent Progress Patient-Stated? 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 RN documented as of this encounter Procedures Procedure Name Priority Date/Time Associated Diagnosis Comments BASIC METABOLIC PANEL STAT 07/10/2024 6:23 AM RHEUMATOLOGY SPECIALIST CBC W/DIFF AUTOMATED STAT 07/10/2024 6:23 AM RHEUMATOLOGY SPECIALIST MAGNESIUM STAT 07/10/2024 6:23 AM RHEUMATOLOGY SPECIALIST POCT GLUCOSE - HAMILTON DOCKED DEVICE Routine 07/10/2024 4:45 AM RHEUMATOLOGY SPECIALIST POCT GLUCOSE - HAMILTON DOCKED DEVICE Routine 07/10/2024 1:41 AM RHEUMATOLOGY SPECIALIST POCT GLUCOSE - HAMILTON DOCKED DEVICE Routine 07/09/2024 11:45 PM RHEUMATOLOGY SPECIALIST BASIC METABOLIC PANEL STAT 07/09/2024 9:54 PM RHEUMATOLOGY SPECIALIST POCT GLUCOSE - HAMILTON DOCKED DEVICE Routine 07/09/2024 9:53 PM RHEUMATOLOGY SPECIALIST POCT GLUCOSE - HAMILTON DOCKED DEVICE Routine 07/09/2024 8:43 PM RHEUMATOLOGY SPECIALIST POCT GLUCOSE - HAMILTON DOCKED DEVICE Routine 07/09/2024 7:45 PM RHEUMATOLOGY SPECIALIST BASIC METABOLIC PANEL STAT 07/09/2024 7:26 PM RHEUMATOLOGY SPECIALIST POCT GLUCOSE - HAMILTON DOCKED DEVICE Routine 07/09/2024 6:39 PM RHEUMATOLOGY SPECIALIST POCT GLUCOSE - HAMILTON DOCKED DEVICE Routine 07/09/2024 5:17 PM RHEUMATOLOGY SPECIALIST POCT GLUCOSE - HAMILTON DOCKED DEVICE Routine 07/09/2024 4:20 PM RHEUMATOLOGY SPECIALIST HEMOGLOBIN, GLYCOSYLATED Routine 07/09/2024 2:43 PM RHEUMATOLOGY SPECIALIST BASIC METABOLIC PANEL STAT 07/09/2024 2:43 PM RHEUMATOLOGY SPECIALIST POCT GLUCOSE - HAMILTON DOCKED DEVICE Routine 07/09/2024 2:39 PM RHEUMATOLOGY SPECIALIST DRUG SCREEN RAPID STAT 07/09/2024 2:0 2 PM RHEUMATOLOGY SPECIALIST HC URINALYSIS AUTO W/O MICRO STAT 07/09/2024 2:02 PM RHEUMATOLOGY SPECIALIST BLOOD GAS, VENOUS STAT 07/09/2024 11: 55 AM RHEUMATOLOGY SPECIALIST ECG 12-LEAD STAT 07/09/2024 11:32 AM RHEUMATOLOGY SPECIALIST TSH W/REFLEX STAT 07/09/2024 10:42 AM RHEUMATOLOGY SPECIALIST COMPREHENSIVE METABOLIC PANEL STAT 07/09/2024 10:42 AM RHEUMATOLOGY SPECIALIST CBC W/DIFF AUTOMATED STAT 07/09/2024 10:42 AM RHEUMATOLOGY SPECIALIST THYROXINE, FREE (FT4) STAT 07/09/2024 10:42 AM RHEUMATOLOGY SPECIALIST TROPONIN, QUANT STAT 07/09/2024 10:42 AM RHEUMATOLOGY SPECIALIST LIPASE STAT 07/09/2024 10:42 AM RHEUMATOLOGY SPECIALIST ETHANOL STAT 07/09/2024 10:42 AM RHEUMATOLOGY SPECIALIST XR CHEST PORTABLE STAT 07/09/2024 10: 24 AM RHEUMATOLOGY SPECIALIST documented in this encounter Results * MAGNESIUM (07/10/2024 6:23 AM RHEUMATOLOGY SPECIALIST) MAGNESIUM 1.9 1.8 - 2.4 MG/DL 07/10/2024 7:03 AM RHEUMATOLOGY SPECIALIST [facility] 07/10/2024 6:23 AM RHEUMATOLOGY SPECIALIST Jayme Francois NP LABORATORY Final Result [facility] [address] [place] [address], [place] [phone] * (ABNORMAL) BASIC METABOLIC PANEL (07/10/2024 6:23 AM RHEUMATOLOGY SPECIALIST) Pathologist [facility] GLUCOSE 172(H) 70 - 99 MG/DL 07/10/2024 7:03 AM [facility] BUN 15 7 - 18 MG/DL 07/10/2024 7:03 AM [facility] CREATININE S/P/B 0.61 0.55 - 1.02 MG/DL 07/10/2024 7:03 AM [facility] SODIUM S/P/B 138 136 - 145 MMOL/L 07/10/2024 7:03 AM [facility] POTASSIUM S/P/B 3.4(L) 3.5 - 5.1 MMOL/L 07/10/2024 7:03 AM [facility] CHLORIDE S/P/B 108 97 - 115 MMOL/L 07/10/2024 7:03 AM [facility] CO2 27.8 21 - 32 MMOL/L 07/10/2024 7:03 AM [facility] CALCIUM S/P/B 8.2(L) 8.5 - 10.1 MG/DL 07/10/2024 7:03 AM [facility] ANION GAP 2.2 2 - 10 MMOL/L 07/10/2024 7:03 AM [facility] BUN CREATININE RATIO 24.4 6 - 26 07/10/2024 7:03 AM [facility] GFR ESTIMATE >90 >90 ML/MIN/1.7 3 M2 07/10/2024 7:03 AM [facility] Comment: NOTE: eGFR is not calculated for patients <18 years of age or gender unknown. This is an estimated GFR calculation using the new CKD EPI creatinine equation without race and so does not require a correction factor for race. This estimated GFR should not be used for calculating drug doses. 07/10/2024 6:23 AM RHEUMATOLOGY SPECIALIST Jayme Francois NP LABORATORY Final Result [facility] [address] [place] [address], [place] [phone] * (ABNORMAL) CBC W/DIFF AUTOMATED (07/10/2024 6:23 AM RHEUMATOLOGY SPECIALIST) WBC 6.66 4.5 - 11.0 x10'3/uL 07/10/2024 6:40 AM [facility] RBC 4.27 4.20 - 5.40 x10'6/uL 07/10/2024 6:40 AM [facility] HGB 11.4(L) 12.0 - 16.0 G/DL 07/10/2024 6:40 AM [facility] HCT 34.8(L) 38.0 - 48.0 % 07/10/2024 6:40 AM [facility] MCV 81.5 81.0 - 99.0 FL 07/10/2024 6:40 AM [facility] MCH 26.7(L) 27.0 - 31.0 PG 07/10/2024 6:40 AM [facility] MCHC 32.8 32.0 - 36.0 G/DL 07/10/2024 6:40 AM [facility] RDW 14.2 11.5 - 14.5 % 07/10/2024 6:40 AM [facility] PLT 382 130 - 400 x10'3/uL 07/10/2024 6:40 AM [facility] MPV 9.7 9.3 - 12.2 FL 07/10/2024 6:40 AM [facility] DIFFERENTIAL TYPE AUTOMATED DIFFERENTIAL 07/10/2024 6:40 AM [facility] NEUTROPHILS % 58.5 % 07/10/2024 6:40 AM [facility] LYMPHOCYTES % 26.7 % 07/10/2024 6:40 AM [facility] MONOCYTES % 9.2 % 07/10/2024 6:40 AM [facility] EOSINOPHILS 4.5 % 07/10/2024 6:40 AM [facility] BASOPHILS 0.8 % 07/10/2024 6:40 AM [facility] IMMATURE GRANS % 0.3 % 07/10/20 6:40 AM [facility] ABS. NEUTROPHILS 3.90 1.80 - 7.70 x10'3/uL 07/10/2024 6:40 AM [facility] ABS. LYMPHOCYTES 1.78 1.00 - 4.80 x10'3/uL 07/10/2024 6:40 AM [facility] ABS. MONOCYTES 0.61 0.24 - 0.86 x10'3/uL 07/10/2024 6:40 AM RHEUMATOLOGY SPECIALIST [facility] ABS. EOSINOPHILS 0.30 0.04 - 0.36 x10'3/uL 07/10/2024 6:40 AM RHEUMATOLOGY SPECIALIST [facility] ABS. BASOPHILS 0.05 0.01 - 0.08 x10'3/uL 07/10/2024 6:40 AM RHEUMATOLOGY SPECIALIST [facility] ABS. IMMATURE GRANULOCYTES 0.02 0.00 - 0.49 x10'3/uL 07/10/2024 6:40 AM RHEUMATOLOGY SPECIALIST [facility] 07/10/2024 6:23 AM RHEUMATOLOGY SPECIALIST Jayme Francois SCIENTIFIC EDITOR LABORATORY Final Result Performing Organization Address [facility]/ZIP Co de Phone Number [facility] [address] [place] [address], [place] [phone] * (ABNORMAL) POCT glucose (07/10/2024 4:45 AM RHEUMATOLOGY SPECIALIST) GLUCOSE POC 181(H) 70 - 99 mg/dL 07/10/2024 4:47 AM RHEUMATOLOGY SPECIALIST [facility] 07/10/2024 4:45 AM RHEUMATOLOGY SPECIALIST Carine Simon DO POCT ORDERABLES - DEVICE Final Result Performing Organization Address City/[facility]/ZIP Co de Phone Number [facility] [address] [place] [address], [place] [phone] * (ABNORMAL) POCT glucose (07/10/2024 1:41 AM RHEUMATOLOGY SPECIALIST) GLUCOSE POC 351(H) 70 - 99 mg/dL 07/10/2024 1:44 AM RHEUMATOLOGY SPECIALIST [facility] 07/10/2024 1:41 AM RHEUMATOLOGY SPECIALIST Carine Simon DO POCT ORDERABLES - DEVICE Final Result [facility] [address] [place] [address], [place] [phone] * (ABNORMAL) POCT glucose (07/09/2024 11:45 PM RHEUMATOLOGY SPECIALIST) GLUCOSE POC 354(H) 70 - 99 mg/dL 07/09/2024 11:47 PM RHEUMATOLOGY SPECIALIST [facility] 07/09/2024 11:4 5 PM RHEUMATOLOGY SPECIALIST Carine Simon DO POCT ORDERABLES - DEVICE Final Result Performing Organization Address [facility] Co de Phone Number [facility] [address] [place] [address], [place] [phone] * (ABNORMAL) BASIC METABOLIC PANEL (07/09/2024 9:54 PM RHEUMATOLOGY SPECIALIST) GLUCOSE 189(H) 70 - 99 MG/DL 07/09/2024 10:21 PM [facility] BUN 17 7 - 18 MG/DL 07/09/2024 10:21 PM [facility] CREATININE S/P/B 1.02 0.55 - 1.02 MG/DL 07/09/2024 10:21 PM RHEUMATOLOGY SPECIALIST [facility] SODIUM S/P/B 137 136 - 145 MMOL/L 07/09/2024 10:21 PM [facility] POTASSIUM S/P/B 3.5 3.5 - 5.1 MMOL/L 07/09/2024 10:21 PM [facility] CHLORIDE S/P/B 109 97 - 115 MMOL/L 07/09/2024 10:21 PM RHEUMATOLOGY SPECIALIST [facility] CO2 21.6 21 - 32 MMOL/L 07/09/2024 10:21 PM RHEUMATOLOGY SPECIALIST [facility] CALCIUM S/P/B 8.2(L) 8.5 - 10.1 MG/DL 07/09/2024 10:21 PM RHEUMATOLOGY SPECIALIST [facility] ANION GAP 6.4 2 - 10 MMOL/L 07/09/2024 10:21 PM [facility] BUN CREATININE RATIO 16.7 6 - 26 07/09/2024 10:21 PM [facility] GFR ESTIMATE 71(L) >90 ML/MIN/1.7 3 M2 07/09/2024 10:21 PM RHEUMATOLOGY SPECIALIST [facility] Comment: NOTE: eGFR is not calculated for patients <18 years of age or gender unknown. This is an estimated GFR calculation using the new CKD EPI creatinine equation without race and so does not require a correction factor for race. This estimated GFR should not be used for calculating drug doses. 07/09/2024 9:54 PM RHEUMATOLOGY SPECIALIST us Shannan Ross MD LABORATORY Final Result [facility] [address] [place] [address], [place] [phone] * (ABNORMAL) POCT glucose (07/09/2024 9:53 PM RHEUMATOLOGY SPECIALIST) GLUCOSE POC 221(H) 70 - 99 mg/dL 07/09/2024 9:57 PM RHEUMATOLOGY SPECIALIST [facility] 07/09/2024 9:53 PM RHEUMATOLOGY SPECIALIST Carine Simon DO POCT ORDERABLES - DEVICE Final Result [facility] [address] [place] [address], [place] [phone] * (ABNORMAL) POCT glucose (07/09/2024 8:43 PM RHEUMATOLOGY SPECIALIST) GLUCOSE POC 297(H) 70 - 99 mg/dL 07/09/2024 8:45 PM RHEUMATOLOGY SPECIALIST [facility] 07/09/2024 8:43 PM RHEUMATOLOGY SPECIALIST us Carine Simon DO POCT ORDERABLES - DEVICE Final Result Performing Organization Address City/[facility]/ZIP Co de Phone Number [facility] [address] [place] [address], [place] [phone] * (ABNORMAL) POCT glucose (07/09/2024 7:45 PM RHEUMATOLOGY SPECIALIST) GLUCOSE POC 310(H) 70 - 99 mg/dL 07/09/2024 7:47 PM RHEUMATOLOGY SPECIALIST [facility] 07/09/2024 7:45 PM RHEUMATOLOGY SPECIALIST us Carine Simon DO POCT ORDERABLES - DEVICE Final Result Performing Organization Address City/[facility]/ZIP Co de Phone Number [facility] [address] [place] [address], [place] [phone] * (ABNORMAL) BASIC METABOLIC PANEL (07/09/2024 7:26 PM RHEUMATOLOGY SPECIALIST) GLUCOSE 331(H) 70 - 99 MG/DL 07/09/2024 7:54 PM RHEUMATOLOGY SPECIALIST [facility] BUN 15 7 - 18 MG/DL 07/09/2024 7:54 PM RHEUMATOLOGY SPECIALIST [facility] CREATININE S/P/B 1.21(H) 0.55 - 1.02 MG/DL 07/09/2024 7:54 PM RHEUMATOLOGY SPECIALIST [facility] SODIUM S/P/B 136 136 - 145 MMOL/L 07/09/2024 7:54 PM [facility] POTASSIUM S/P/B 3.7 3.5 - 5.1 MMOL/L 07/09/2024 7:54 PM [facility] CHLORIDE S/P/B 108 97 - 115 MMOL/L 07/09/2024 7:54 PM [facility] CO2 22.3 21 - 32 MMOL/L 07/09/2024 7:54 PM [facility] CALCIUM S/P/B 8.3(L) 8.5 - 10.1 MG/DL 07/09/2024 7:54 PM [facility] ANION GAP 5.7 2 - 10 MMOL/L 07/09/2024 7:54 PM [facility] BUN CREATININE RATIO 12.4 6 - 26 07/09/2024 7:54 PM [facility] GFR ESTIMATE 58(L) >90 ML/MIN/1.7 3 M2 07/09/2024 7:54 PM [facility] Comment: NOTE: eGFR is not calculated for patients <18 years of age or gender unknown. This is an estimated GFR calculation using the new CKD EPI creatinine equation without race and so does not require a correction factor for race. This estimated GFR should not be used for calculating drug doses. 07/09/2024 7:26 PM RHEUMATOLOGY SPECIALIST us Carine Simon DO LABORATORY Final Res ult [facility] [address] [place] [address], [place] [phone] * (ABNORMAL) POCT glucose (07/09/2024 6:39 PM RHEUMATOLOGY SPECIALIST) [facility] Signature GLUCOSE POC >500(HH) 70 - 99 mg/dL 07/09/2024 6:41 PM RHEUMATOLOGY SPECIALIST [facility] Comment:Notified MD 07/09/2024 6:39 PM RHEUMATOLOGY SPECIALIST us Carine Simon DO POCT ORDERABLES - DEVICE Final Result Performing Organization Address City/[facility]/ZIP Co de Phone Number [facility] [address] [place] [address], [place] [phone] * (ABNORMAL) POCT glucose (07/09/2024 5:17 PM RHEUMATOLOGY SPECIALIST) GLUCOSE POC 368(H) 70 - 99 mg/dL 07/09/2024 5:24 PM RHEUMATOLOGY SPECIALIST [facility] 07/09/2024 5:17 PM RHEUMATOLOGY SPECIALIST us Carine Simon DO POCT ORDERABLES - DEVICE Final Result Performing Organization Address [facility] Co de Phone Number [facility] [address] [place] [address], [place] [phone] * (ABNORMAL) POCT glucose (07/09/2024 4:20 PM RHEUMATOLOGY SPECIALIST) GLUCOSE POC 387(H) 70 - 99 mg/dL 07/09/2024 4:21 PM RHEUMATOLOGY SPECIALIST [facility] 07/09/2024 4:20 PM RHEUMATOLOGY SPECIALIST us Carine Simon DO POCT ORDERABLES - DEVICE Final Result Performing Organization Address City/[facility] Co de Phone Number [facility] [address] [place] [address], [place] [phone] * (ABNORMAL) BASIC METABOLIC PANEL (07/09/2024 2:43 PM RHEUMATOLOGY SPECIALIST) [facility] GLUCOSE 441(HH) 70 - 99 MG/DL 07/09/2024 3:33 PM [facility] Comment: Critical Result(s) Called at: 15:31:55 on 07/09/2024 by: HANK HOLLINGSWORTH to and read back by: JOSE ALFREDO PRIEST BUN 15 7 - 18 MG/DL 07/09/2024 3:33 PM [facility] CREATININE S/P/B 1.06(H) 0.55 - 1.02 MG/DL 07/09/2024 3:33 PM [facility] SODIUM S/P/B 131(L) 136 - 145 MMOL/L 07/09/2024 3:33 PM [facility] POTASSIUM S/P/B 3.9 3.5 - 5.1 MMOL/L 07/09/2024 3:33 PM [facility] CHLORIDE S/P/B 104 97 - 115 MMOL/L 07/09/2024 3:33 PM [facility] CO2 16.1(L) 21 - 32 MMOL/L 07/09/2024 3:33 PM [facility] CALCIUM S/P/B 7.9(L) 8.5 - 10.1 MG/DL 07/09/2024 3:33 PM [facility] ANION GAP 10.9(H) 2 - 10 MMOL/L 07/09/2024 3:33 PM [facility] BUN CREATININE RATIO 14.2 6 - 26 07/09/2024 3:33 PM [facility] GFR ESTIMATE 68(L) >90 ML/MIN/1.7 3 M2 07/09/2024 3:33 PM [facility] Comment: NOTE: eGFR is not calculated for patients <18 years of age or gender unknown. This is an estimated GFR calculation using the new CKD EPI creatinine equation without race and so does not require a correction factor for race. This estimated GFR should not be used for calculating drug doses. 07/09/2024 2:43 PM RHEUMATOLOGY SPECIALIST Carine Simon DO LABORATORY Final Res ult Performing Organization Address [facility] Co de Phone Number [facility] [address] [place] [address], [place] [phone] * (ABNORMAL) HEMOGLOBIN, GLYCOSYLATED (07/09/2024 2:43 PM RHEUMATOLOGY SPECIALIST) HGB A1C 16.9(H) <5.7 % 07/09/2024 9:36 PM RHEUMATOLOGY SPECIALIST [facility] Comment: ADA GUIDELINES 2010 5.7 TO 6.4% INCREASED RISK OF DIABETES > OR = 6.5% CONSISTENT WITH DIABETES ESTIMATED AVG GLUCOSE 438 mg/dL 07/09/2024 9:36 PM RHEUMATOLOGY SPECIALIST [facility] 07/09/2024 2:43 PM RHEUMATOLOGY SPECIALIST Jayme Francois SCIENTIFIC EDITOR LABORATORY Final Result Performing Organization Address [facility] Co de Phone Number [facility] [address] [place] [address], [place] [phone] * (ABNORMAL) POCT glucose (07/09/2024 2:39 PM RHEUMATOLOGY SPECIALIST) GLUCOSE POC 433(HH) 70 - 99 mg/dL 07/09/2024 2:48 PM RHEUMATOLOGY SPECIALIST [facility] 07/09/2024 2:39 PM RHEUMATOLOGY SPECIALIST James BALL POCT ORDERABLES - DEVICE F inal Result Performing Organization Address City/[facility]/ZIP Co de Phone Number [facility] [address] [place] [phone], * (ABNORMAL) DRUG SCREEN RAPID (07/09/2024 2:02 PM RHEUMATOLOGY SPECIALIST) [facility] AMPHETAMINE (U) NEGATIVE NEGATIVE 2:37 PM RHEUMATOLOGY SPECIALIST [facility] BARBITURATES SCREEN (U) NEGATIVE NEGATIVE 07/09/2024 2:37 PM RHEUMATOLOGY SPECIALIST [facility] BENZODIAZEPINES SCREEN (U) NEGATIVE NEGATIVE 07/09/2024 2:37 PM RHEUMATOLOGY SPECIALIST [facility] CANNABINOIDS SCREEN (U) NEGATIVE NEGATIVE 07/09/2024 2:37 PM RHEUMATOLOGY SPECIALIST [facility] COCAINE METABOLITES (U) NEGATIVE NEGATIVE 07/09/2024 2:37 PM RHEUMATOLOGY SPECIALIST [facility] METHADONE (U) NEGATIVE NEGATIVE 07/09/2024 2:37 PM RHEUMATOLOGY SPECIALIST [facility] OPIATE SCREEN (U) NEGATIVE NEGATIVE 024 2:37 PM RHEUMATOLOGY SPECIALIST [facility] PHENCYCLIDINE PCP (U) NEGATIVE NEGATIVE 07/09/2024 2:37 PM [facility] Comment: NOTE: RESULTS OF THIS DRUG SCREEN SHOULD BE USED FOR MEDICAL PURPOSES ONLY AND NOT FOR LEGAL OR EMPLOYMENT PURPOSES. POSITIVE RESULTS ARE NOT CONFIRMED. MEDICATIONS CONTAINING EPHEDRINE MAY CAUSE FALSE POSITIVE AMPHETAMINE CALL [phone], LAB, TO REQUEST CONFIRMATION TESTING. IF CREATININE IS <40 mg/dL. ??RECOLLECTION IS SUGGESTED. AMPHETAMINE- ?500 NG/ML BARBITURATE- ?200 NG/ML BENZODIAZEPINES- ??200 NG/ML THC- ? 50 NG/ML COCAINE- ?150 NG/ML METHADONE- ?300 NG/ML OPIATE- ? 300 MG/ML PCP- ? 25 NG/ML CREATININE (U) 23.7(L) 28 - 217 MG/DL 07/09/2024 2:37 PM RHEUMATOLOGY SPECIALIST [facility] URINE SPECIMEN / Unknown 07/09/2024 2:02 PM RHEUMATOLOGY SPECIALIST us James BALL URINE ORDERABLES Final Res ult [facility] [address] [place] [address], * (ABNORMAL) URINALYSIS (07/09/2024 2:02 PM RHEUMATOLOGY SPECIALIST) SPECIMEN TYPE URINE CLEAN CATCH 07/09/2024 2:02 PM RHEUMATOLOGY SPECIALIST [facility] COLOR (U) LIGHT YELLOW 07/09/2024 2:34 PM RHEUMATOLOGY SPECIALIST [facility] TRANSPARENCY CLEAR 07/09/2024 2:34 PM RHEUMATOLOGY SPECIALIST [facility] SPECIFIC GRAVITY (U) 1.026 1.001 - 1.030 07/09/2024 2:34 PM RHEUMATOLOGY SPECIALIST [facility] U PH 5.0 5.0 - 9.0 07/09/2024 2:34 PM RHEUMATOLOGY SPECIALIST [facility] LEUKOCYTES (U) NEGATIVE NEGATIVE 07/09/2024 2:34 PM RHEUMATOLOGY SPECIALIST [facility] NITRITES NEGATIVE NEGATIVE 07/09/2024 2:34 PM RHEUMATOLOGY SPECIALIST [facility] PROTEIN RANDOM (U) 10 <30 MG/DL 07/09/2024 2:34 PM RHEUMATOLOGY SPECIALIST [facility] GLUCOSE (U) >1000(A) NORMAL MG/DL 07/09/2024 2:34 PM [facility] KETONES MG/DL (U) >150(A) NEGATIVE MG/DL 07/09/2024 2:34 PM [facility] Comment: Successful Call: DARCI called 07/09/2024 02:34 PM to EMERGENCY ROOM ([id number]/PAT EUCEDA) by [id number]. Read Back: Yes UROBILINOGEN NORMAL NORMAL MG/DL 07/09/2024 2:34 PM RHEUMATOLOGY SPECIALIST [facility] BILIRUBIN (U) NEGATIVE NEGATIVE MG/DL 07/09/2024 2:34 PM RHEUMATOLOGY SPECIALIST [facility] BLOOD (U) NEGATIVE NEGATIVE 07/09/2024 2:34 PM RHEUMATOLOGY SPECIALIST [facility] URINE SPECIMEN OBTAINED BY CLEAN CATCH PROCEDURE / Unknown 07/09/2024 2:02 PM RHEUMATOLOGY SPECIALIST Brianna BALL URINE ORDERABLES Final Result [facility] [address] [place] [address], * (ABNORMAL) Blood gas, venous (07/09/2024 11:55 AM RHEUMATOLOGY SPECIALIST) PH VENOUS 7.18(LL) 7.32 - 7.43 07/09/2024 12:08 PM [facility] Comment: Successful Call: VPHB called 07/09/2024 12:09 PM to JAMES HEATH PA ( /JAMES HEATH PA) by [id number]. PCO2 VENOUS 28.0 MMHG 07/09/2024 12:08 PM RHEUMATOLOGY SPECIALIST [facility] Comment:NO REFERENCE RANGE H BEEN ESTABLISHED PO2 VENOUS 43.0 MM HG 07/09/2024 12:08 PM [facility] Comment:NO REFERENCE RANGE H BEEN ESTABLISHED TOTAL CO2 VENOUS 11.4(L) 22.0 - 26.0 MMOL/L 07/09/2024 12:08 PM RHEUMATOLOGY SPECIALIST [facility] BASE DEFICIT VENOUS 16.4 MMOL/L 07/09/2024 12:08 PM [facility] Comment:NO REFERENCE RANGE H BEEN ESTABLISHED O2 SAT VENOUS 64 % 07/09/2024 12:08 PM RHEUMATOLOGY SPECIALIST [facility] Comment:NO REFERENCE RANGE H BEEN ESTABLISHED BICARB VENOUS 10.5(L) 22.0 - 29.0 MMOL/L 07/09/2024 12:08 PM RHEUMATOLOGY SPECIALIST [facility] O2 ADMIN VENOUS 21 10:53 AM RHEUMATOLOGY SPECIALIST [facility] 07/09/2024 11:5 5 AM RHEUMATOLOGY SPECIALIST us James BALL LABORATORY Final Resu lt [facility] [address] [place] [address], * ECG 12 lead (07/09/2024 11:32 AM RHEUMATOLOGY SPECIALIST) 07/09/2024 11:3 2 AM RHEUMATOLOGY SPECIALIST Narrative [facility] - 07/09/2024 12:35 PM RHEUMATOLOGY SPECIALIST ?[facility] ? [address] [place] ? Test Date: ?2024-07-09 Pat Name: ? ARTURO MENDOZA ?Department: ?? 41 ? Room: ? EXAM21 Gender: ? Female ? 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 [id number] : ?1985 ? Requested By: BRIANNA MENDOZA Order Number: [id number] ? Reading MD: ?? Joselin Montez ? Measurements Intervals ?[place] ? Rate: ? 97 ? P: ?29 MN: ? 134 ?QRS: ?64 QRSD: ? 88 ? T: ?57 QT: ? 341 ? QTc: ?434 ? 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: [id number] : 1985 Requested By: BRIANNA MENDOZA Order Number: [id number] Reading MD: Joselin Montez Measurements Intervals [place] Rate: 97 P: 29 MN: 134 QRS: 64 QRSD: 88 T: 57 QT: 341 QTc: 434 Interpretive Statements SINUS RHYTHM POSSIBLE LEFT ATRIAL ENLARGEMENT [-0.1mV P WAVE IN V1/V2] NONSPECIFIC T-WAVE ABNORMALITY No previous ECG available for comparison MATOLOGY SPECIALIST Brianna BALL ECG ORDERABLES Final Result Performing Organization Address City/[facility]/ZIP Co de Phone Number [facility] ([facility]) RAD * THYROXINE, FREE (FT4) (07/09/2024 10:42 AM RHEUMATOLOGY SPECIALIST) FREE T4 0.84 0.76 - 1.46 NG/DL 07/09/2024 1:34 PM RHEUMATOLOGY SPECIALIST [facility] 07/09/2024 10:4 2 AM RHEUMATOLOGY SPECIALIST James BALL LABORATORY Final Resu lt [facility] [address] [place] [address], [place] [phone] * (ABNORMAL) TSH W/REFLEX (07/09/2024 10:42 AM RHEUMATOLOGY SPECIALIST) TSH 6.660(H) 0.358 - 3.74 uIU/ML 07/09/2024 12:56 PM RHEUMATOLOGY SPECIALIST [facility] Comment: HIGH DOSES OF BIOTIN MAY INTERFERE WITH THIS TEST RESULT. CORRELATION TO CLINICAL HISTORY AND PRESENTATION RECOMMENDED. 07/09/2024 10:4 2 AM RHEUMATOLOGY SPECIALIST James BALL LABORATORY Final Resu lt Performing Organization Address City/[facility]/ZIP Co de Phone Number [facility] [address] [place] [address], * ETHANOL (07/09/2024 10:42 AM RHEUMATOLOGY SPECIALIST) Pathologist [facility] ALCOHOL S/P/B <0.003 <0.003 G/DL 07/09/2024 12:56 PM RHEUMATOLOGY SPECIALIST [facility] 07/09/2024 10:4 2 AM RHEUMATOLOGY SPECIALIST James BALL LABORATORY Final Resu lt Performing Organization Address [facility] Co de Phone Number [facility] [address] [place] [address], * TROPONIN, QUANT (07/09/2024 10:42 AM RHEUMATOLOGY SPECIALIST) [facility] TROPONIN I HIGH SENSITIVITY 46 <54 ng/L 07/09/2024 11:19 AM RHEUMATOLOGY SPECIALIST [facility] Comment: HIGH DOSES OF BIOTIN, TROPONIN-SPECIFIC AUTOANTIBODIES, AND ANTIBODY THERAPY CONTAINING HAMA MAY INTERFERE WITH THIS TEST RESULT. CORRELATION TO CLINICAL HISTORY AND PRESENTATION RECOMMENDED. 07/09/2024 10:4 2 AM RHEUMATOLOGY SPECIALIST Brianna BALL LABORATORY Final Result Performing Organization Address City/[facility]/ZIP Co de Phone Number [facility] [address] [place] [address], * LIPASE (07/09/2024 10:42 AM RHEUMATOLOGY SPECIALIST) [facility] LIPASE 24 13 - 75 UNITS/L 07/09/2024 11:19 AM [facility] 07/09/2024 10:4 2 AM RHEUMATOLOGY SPECIALIST Brianna BALL LABORATORY Final Result [facility] [address] [place] [address], * (ABNORMAL) COMPREHENSIVE METABOLIC PANEL (07/09/2024 10:42 AM RHEUMATOLOGY SPECIALIST) [facility] GLUCOSE 396(H) 70 - 99 MG/DL 07/09/2024 11:19 AM [facility] BUN 16 7 - 18 MG/DL 07/09/2024 11:19 AM [facility] CREATININE S/P/B 1.11(H) 0.55 - 1.02 MG/DL 07/09/2024 11:19 AM [facility] SODIUM S/P/B 125(L) 136 - 145 MMOL/L 07/09/2024 11:19 AM [facility] POTASSIUM S/P/B 4.8 3.5 - 5.1 MMOL/L 07/09/2024 11:19 AM [facility] CHLORIDE S/P/B 98 97 - 115 MMOL/L 07/09/2024 11:19 AM [facility] CO2 11.4(L) 21 - 32 MMOL/L 07/09/2024 11:19 AM [facility] CALCIUM S/P/B 9.0 8.5 - 10.1 MG/DL 07/09/2024 11:19 AM [facility] BILIRUBIN TOTAL S/P/B 0.4 0.2 - 1.2 MG/DL 07/09/2024 11:19 AM [facility] Comment: THIS ASSAY IS NOT RECOMMENDED FOR PATIENTS UNDERGOING TREATMENT WITH ELTROMBOPAG DUE TO THE POTENTIAL FOR FALSELY ELEVATED RESULTS. TOTAL PROTEIN S/P/B 9.0(H) 6.4 - 8.2 G/DL 07/09/2024 11:19 AM [facility] ALBUMIN S/P/B 3.7 3.4 - 5.0 G/DL 07/09/2024 11:19 AM [facility] AST 17 15 - 37 U/L 07/09/2024 11:19 AM [facility] ALT 17 14 - 55 U/L 07/09/2024 11:19 AM [facility] ALKALINE PHOSPHATASE S/P/B 179(H) 50 - 136 U/L 07/09/2024 11:19 AM [facility] ANION GAP 15.6(H) 2 - 10 MMOL/L 07/09/2024 11:19 AM [facility] BUN CREATININE RATIO 14.4 6 - 26 07/09/2024 11:19 AM [facility] A/G RATIO 0.7(L) 1.0 - 2.0 RATIO 07/09/2024 11:19 AM [facility] GFR ESTIMATE 64(L) >90 ML/MIN/1.7 3 M2 07/09/2024 11:19 AM [facility] Comment: NOTE: eGFR is not calculated for patients <18 years of age or gender unknown. This is an estimated GFR calculation using the new CKD EPI creatinine equation without race and so does not require a correction factor for race. This estimated GFR should not be used for calculating drug doses. 07/09/2024 10:4 2 AM RHEUMATOLOGY SPECIALIST us Brianna BALL LABORATORY Final Result [facility] [address] [place] [address], [place] [phone] * (ABNORMAL) CBC W/DIFF AUTOMATED (07/09/2024 10:42 AM RHEUMATOLOGY SPECIALIST) [facility] WBC 8.60 4.5 - 11.0 x10'3/uL 07/09/2024 10:57 AM [facility] RBC 5.61(H) 4.20 - 5.40 x10'6/uL 07/09/2024 10:57 AM [facility] HGB 15.2 12.0 - 16.0 G/DL 07/09/2024 10:57 AM [facility] HCT 47.3 38.0 - 48.0 % 07/09/2024 10:57 AM [facility] MCV 84.3 81.0 - 99.0 FL 07/09/2024 10:57 AM [facility] MCH 27.1 27.0 - 31.0 PG 07/09/2024 10:57 AM [facility] MCHC 32.1 32.0 - 36.0 G/DL 07/09/2024 10:57 AM [facility] RDW 13.9 11.5 - 14.5 % 07/09/2024 10:57 AM [facility] PLT 594(H) 130 - 400 x10'3/uL 07/09/2024 10:57 AM [facility] MPV 9.9 9.3 - 12.2 FL 07/09/2024 10:57 AM [facility] DIFFERENTIAL TYPE AUTOMATED DIFFERENTIAL 07/09/2024 10:57 AM [facility] NEUTROPHILS % 77.4 % 07/09/2024 10:57 AM [facility] LYMPHOCYTES % 16.2 % 07/09/2024 10:57 AM RHEUMATOLOGY SPECIALIST [facility] MONOCYTES % 3.5 % 07/09/2024 10:57 AM [facility] EOSINOPHILS 0.9 % 07/09/2024 10:57 AM [facility] BASOPHILS 1.2 % 07/09/2024 10:57 AM RHEUMATOLOGY SPECIALIST [facility] IMMATURE GRANS % 0.8 % 07/09/20 10:57 AM [facility] ABS. NEUTROPHILS 6.66 1.80 - 7.70 x10'3/uL 07/09/2024 10:57 AM [facility] ABS. LYMPHOCYTES 1.39 1.00 - 4.80 x10'3/uL 07/09/2024 10:57 AM [facility] ABS. MONOCYTES 0.30 0.24 - 0.86 x10'3/uL 07/09/2024 10:57 AM [facility] ABS. EOSINOPHILS 0.08 0.04 - 0.36 x10'3/uL 07/09/2024 10:57 AM [facility] ABS. BASOPHILS 0.10(H) 0.01 - 0.08 x10'3/uL 07/09/2024 10:57 AM [facility] ABS. IMMATURE GRANULOCYTES 0.07 0.00 - 0.49 x10'3/uL 07/09/2024 10:57 AM [facility] 07/09/2024 10:4 2 AM RHEUMATOLOGY SPECIALIST us Brianna BALL LABORATORY Final Result [facility] [address] [place] [address], [place] [phone] * XR CHEST PORTABLE (07/09/2024 10:24 AM RHEUMATOLOGY SPECIALIST) Anatomical Region Laterality Modality Chest Radiographic Arielle ging 07/09/2024 10:3 1 AM RHEUMATOLOGY SPECIALIST Impressions 07/09/2024 10:33 AM RHEUMATOLOGY SPECIALIST IMPRESSION: No radiographic evidence of acute cardiopulmonary disease. Referred By: ?? Interpreted By: David Ramirez MD, 07/09/2024 10:31 AM Narrative 07/09/2024 10:33 AM RHEUMATOLOGY SPECIALIST [place] [id number] EXAMINATION: XR CHEST PORTABLE INDICATIONS: Chest heaviness [...] Procedure Note David Ramirez MD - 07/09/2024 [place] [address] EXAMINATION: XR CHEST PORTABLE INDICATIONS: Chest heaviness [...] AM Brianna BALL GENERAL IMAGING Final Result documented in this encounter Visit Diagnoses Diagnosis DKA, type 1 ([facility])- Primary Type I (juvenile type) diabetes mellitus with ketoacidosis, uncontrolled DKA (diabetic ketoacidosis) ([facility]) Type II or unspecified type diabetes mellitus with ketoacidosis, not stated as uncontrolled Hyponatremia Hyposmolality and/or hyponatremia Weakness Other malaise and fatigue Hypercalcemia documented in this encounter Admitting Diagnoses Diagnosis DKA, type 1 ([facility]) Type I (juvenile type) diabetes mellitus with ketoacidosis, uncontrolled Hypercalcemia documented in this encounter Administered Medications Inactive Administered Medications - up to 3 most recent administrations Medication Order MAR Action Action Date Dose Rate Site 0.45 % NaCl with KCl 20 mEq infusion at 300 mL/hr, Intravenous, Continuous, Starting on Wed07/09/24 at 1600, Until Wed07/09/24 at 1859 New Bag 07/09/2024 5:17 PM RHEUMATOLOGY SPECIALIST 300 mL/hr acetaminophen (TYLENOL) tablet 650 mg 650 mg, Oral, Every 4 hours PRN, Mild pain (Scale 1 - 3), Fever, Headaches, Starting on 07/09/24 at 1306, Until Wed07/10/24 at 1158, Maximum dose of acetaminophen is 4000 mg from all sources in 24 hours. albuterol sulfate HFA 108 (90 Base) MCG/ACT inhaler 2 puff 2 puff, Inhalation, Every 4 hours PRN, Wheezing, Shortness of breath, Starting on 07/09/24 at 1307, Until Wed07/10/24 at 1158 dextrose 10 % bolus infusion 125-250 mL 125-250 mL, Intravenous, Administer over 15 Minutes, As needed, Low blood sugar, Starting on 07/09/24 at 1457, Until Wed07/10/24 at 1158, Use in conjunction with DKA insulin and fluid orders. Administer slowly through a Y-site with fluid #2 to permit dilution. Glucose 70-100 - give 125 mL (12.5 g) Glucose below 70 - give 250 mL (25 g) When insulin infusion is discontinued, discontinue this order and use standard hypoglycemia standing orders. enoxaparin (LOVENOX) 40 MG/0.4ML syringe 40 mg 40 mg, Subcutaneous, Every 24 hours, First dose on Wed07/09/24 at 1230, Until Discontinued, Administer by deep SubQ injection alternating between the left or right anterolateral and left or right posterolateral abdominal wall. glucagon injection 1 mg 1 mg, Intramuscular, Once as needed, Other, Low blood sugar, 1 dose, Starting on Wed07/09/24 at 1457, Until Wed07/10/24 at 1158, If patient is verbally UNresponsive and no IV access with blood glucose less than 70 mg/dL. Do NOT repeat administration. insulin glargine (LANTUS) injection 20 Units 20 Units, Subcutaneous, Once, 1 dose, On Wed07/09/24 at 1600 Given 07/09/2024 4:29 PM RHEUMATOLOGY SPECIALIST 20 Units Right Lower Abdomen insulin lispro (HUMALOG/ADMELOG) injection 0-16 Units 0-16 Units, Subcutaneous, Every 6 hours, First dose on Wed07/09/24 at 1600, Until Discontinued, Blood Glucose (USUAL Dosing): [Less than 70:?Initiate Hypoglycemia Standing Orders] [71-140:? 0 units] [141-180:? 4 units] [181-220:? 6 units] [221-260:? 8 units] [261-300:?? 10 units] [301-350:?? 12 units] [351-400:?14 units] [Greater than 400:?16 units and Call Physician] Given 07/09/2024 4:28 PM RHEUMATOLOGY SPECIALIST 14 Units Left Lower Abdomen insulin lispro (HUMALOG/ADMELOG) injection 0-16 Units 0-16 Units, Subcutaneous, 3 times daily before meals, First dose on Wed07/09/24 at 1800, Until Discontinued, Blood Glucose (USUAL Dosing): [Less than 70:? Initiate Hypoglycemia Standing Orders] [71-140: ? 0 units] [141-180:? 4 units] [181-220:? 6 units] [221-260:? 8 units] [261-300:? 10 units] [301-350:? 12 units] [351-400:? 14 units] [Greater than 400:? 16 units and Call Physician] Given 07/09/2024 6:21 PM RHEUMATOLOGY SPECIALIST 14 Units Right Arm insulin lispro (HUMALOG/ADMELOG) injection 0-16 Units 0-16 Units, Subcutaneous, Every 6 hours, First dose (after last modification) on 07/09/24 at 1900, Until Discontinued, Blood Glucose (USUAL Dosing): [Less than 70:?Initiate Hypoglycemia Standing Orders] [71-140:? 0 units] [141-180:? 4 units] [181-220:? 6 units] [221-260:? 8 units] [261-300:?? 10 units] [301-350:?? 12 units] [351-400:?14 units] [Greater than 400:?16 units and Call Physician] Given 07/10/2024 8:56 AM RHEUMATOLOGY SPECIALIST 4 Units Left Lower Abdomen Given 07/10/2024 1:55 AM RHEUMATOLOGY SPECIALIST 14 Units Ri ght Arm Given 07/09/2024 7:23 PM RHEUMATOLOGY SPECIALIST 16 Units Ri ght Arm insulin lispro (HUMALOG/ADMELOG) injection 0-16 Units 0-16 Units, Subcutaneous, 3 times daily before meals, First dose on Wed07/10/24 at 1100, Until Discontinued, Blood Glucose (USUAL Dosing): [Less than 70:? Initiate Hypoglycemia Standing Orders] [71-140: ? 0 units] [141-180:? 4 units] [181-220:? 6 units] [221-260:? 8 units] [261-300:? 10 units] [301-350:? 12 units] [351-400:? 14 units] [Greater than 400:? 16 units and Call Physician] insulin lispro (HUMALOG/ADMELOG) injection 0-8 Units 0-8 Units, Subcutaneous, Nightly at bedtime, First dose on Wed07/10/24 at 2100, Until Discontinued, Blood Glucose (USUAL Dosing): [Less than 70:? Initiate Hypoglycemia Standing Orders] [71-180:? 0 units] [181-220:? 3 units] [221-260:? 4 units] [261-300:? 5 units] [301-350:? 6 units] [351-400:? 7 units] [Greater than 400:? 8 units and Call Physician] insulin lispro (HUMALOG/ADMELOG) injection 10 Units 10 Units, Subcutaneous, Once, 1 dose, On 07/09/24 at 1900, In addition to 1900 slide for glucose >500 Given 07/09/2024 7:24 PM RHEUMATOLOGY SPECIALIST 10 Units Right Arm insulin NPH (HUMULIN N) injection 15 Units 15 Units, Subcutaneous, Once, 1 dose, On 07/09/24 at 2200 Given 07/09/2024 10:43 PM RHEUMATOLOGY SPECIALIST 15 Units Right Arm insulin regular (NOVOLIN R/HUMULIN R) injection 5 Units 5 Units, Intravenous, Once, 1 dose, On 07/09/24 at 1330, For sliding scale, activate Sliding Scale Insulin order set. Given 07/09/2024 2:05 PM RHEUMATOLOGY SPECIALIST 5 Units insulin regular (NOVOLIN R/HUMULIN R) injection 5 Units 5 Units, Intravenous, Once, 1 dose, On 07/09/24 at 1500, For sliding scale, activate Sliding Scale Insulin order set. Given 07/09/2024 3:20 PM RHEUMATOLOGY SPECIALIST 5 Units lactated ringers bolus infusion 1,000 mL 1,000 mL, Intravenous, Administer over 30 Minutes, Once, 1 dose, On 07/09/24 at 1330 New Bag 07/09/2024 2:03 PM RHEUMATOLOGY SPECIALIST 1,000 mLs 2000 mL/hr levothyroxine (SYNTHROID) tablet 100 mcg 100 mcg, Oral, Daily (levothyroxine), First dose on Wed07/10/24 at 0845, Until Discontinued, Avoid iron, calcium, and antacids within 4 hours of administration. Given 07/10/2024 8:58 AM RHEUMATOLOGY SPECIALIST 100 mcg naLOXone (NARCAN) injection 0.4 mg 0.4 mg, Intravenous, As needed, Opioid reversal, Starting on Wed07/10/24 at 0152, Until Wed07/10/24 at 1158 ondansetron (ZOFRAN) injection 4 mg 4 mg, Intravenous, Once, 1 dose, On Sun 24 at 0945, IV push over 2-5 minutes. Given 07/09/2024 11:53 AM RHEUMATOLOGY SPECIALIST 4 mg ondansetron (ZOFRAN) injection 4 mg 4 mg, Intravenous, Every 8 hours PRN, Nausea, Vomiting, Starting on Wed07/09/24 at 1306, Until Wed07/10/24 at 1158, IV push over 2-5 minutes. senna-docusate (SENOKOT-S) 8.6-50 MG tablet 1 tablet 1 tablet, Oral, Nightly at bedtime, First dose on Wed07/09/24 at 2100, Until Discontinued sodium chloride 0.9% bolus infusion 1,000 mL 1,000 mL, Intravenous, Administer over 15 Minutes, Bolus (Once), 1 dose, On Wed07/09/24 at 1045 New Bag 07/09/2024 11:55 AM RHEUMATOLOGY SPECIALIST 1,000 mLs 4000 mL/hr traMADol (ULTRAM) tablet 50 mg 50 mg, Oral, Every 6 hours PRN, Severe pain (Scale 8 - 10), Moderate pain (Scale 4 - 7), Starting on Wed07/10/24 at 0152, Until Wed07/10/24 at 1158 Given 07/10/2024 2:01 AM RHEUMATOLOGY SPECIALIST 50 mg documented in this encounter Active and Recently Administered Medications Times are shown in RHEUMATOLOGY SPECIALIST. Scheduled Medication Order 07/08/2024 07/09/2024 07/10/2024 enoxaparin (LOVENOX) 40 MG/0.4ML syringe 40 mg(Linked Group 1) 40 mg, Subcutaneous, Every 24 hours, First dose on Wed07/09/24 at 1230, Until Discontinued, Administer by deep SubQ injection alternating between the left or right anterolateral and left or right posterolateral abdominal wall. 1407 (Not Given - Provider: Pat Euceda RN - Reason: Patient/family declined) insulin glargine (LANTUS) injection 12 Units 12 Units, Subcutaneous, Once, 1 dose, On Wed07/10/24 at 0900 0955 (Not Given - Provider: Eileen Alston RN - Reason: Patient/family declined - Comment: LEFT AMA) insulin glargine (LANTUS) injection 20 Units (COMPLETED) 20 Units, Subcutaneous, Once, 1 dose, On 07/09/24 at 1600 1629 (Given - Provider: Dorie Sutherland RN) insulin lispro (HUMALOG/ADMELOG) injection 0-16 Units (CANCELED) 0-16 Units, Subcutaneous, Every 6 hours, First dose on 07/09/24 at 1600, Until Discontinued, Blood Glucose (USUAL Dosing): [Less than 70:?Initiate Hypoglycemia Standing Orders] [71-140:? 0 units] [141-180:? 4 units] [181-220:? 6 units] [221-260:? 8 units] [261-300:?? 10 units] [301-350:?? 12 units] [351-400:?14 units] [Greater than 400:?16 units and Call Physician] 1628 (Given - Provider: Dorie Sutherland RN) insulin lispro (HUMALOG/ADMELOG) injection 0-16 Units (CANCELED)(Linked Group 2) 0-16 Units, Subcutaneous, 3 times daily before meals, First dose on 07/09/24 at 1800, Until Discontinued, Blood Glucose (USUAL Dosing): [Less than 70:? Initiate Hypoglycemia Standing Orders] [71-140: ? 0 units] [141-180:? 4 units] [181-220:? 6 units] [221-260:? 8 units] [261-300:? 10 units] [301-350:? 12 units] [351-400:? 14 units] [Greater than 400:? 16 units and Call Physician] 182 (Given - Provider: Lobito Jennings RN - Comment: BS 368) insulin lispro (HUMALOG/ADMELOG) injection 0-16 Units (CANCELED) 0-16 Units, Subcutaneous, Every 6 hours, First dose (after last modification) on 07/09/24 at 1900, Until Discontinued, Blood Glucose (USUAL Dosing): [Less than 70:?Initiate Hypoglycemia Standing Orders] [71-140:? 0 units] [141-180:? 4 units] [181-220:? 6 units] [221-260:? 8 units] [261-300:?? 10 units] [301-350:?? 12 units] [351-400:?14 units] [Greater than 400:?16 units and Call Physician] 1923 (Given - Provider: Jb Archer RN) 0155 (Given - Provider: Jb Archer RN)0856 (Given - Provider: Eileen Alston RN) insulin lispro (HUMALOG/ADMELOG) injection 0-16 Units(Linked Group 3) 0-16 Units, Subcutaneous, 3 times daily before meals, First dose on Wed07/10/24 at 1100, Until Discontinued, Blood Glucose (USUAL Dosing): [Less than 70:? Initiate Hypoglycemia Standing Orders] [71-140: ? 0 units] [141-180:? 4 units] [181-220:? 6 units] [221-260:? 8 units] [261-300:? 10 units] [301-350:? 12 units] [351-400:? 14 units] [Greater than 400:? 16 units and Call Physician] 1100 (Canceled Entry - Provider: Automatic Discharge Provider - Comment: Automatically canceled at discontinue of medication order) insulin lispro (HUMALOG/ADMELOG) injection 0-8 Units(Linked Group 3) 0-8 Units, Subcutaneous, Nightly at bedtime, First dose on Wed07/10/24 at 2100, Until Discontinued, Blood Glucose (USUAL Dosing): [Less than 70:? Initiate Hypoglycemia Standing Orders] [71-180:? 0 units] [181-220:? 3 units] [221-260:? 4 units] [261-300:? 5 units] [301-350:? 6 units] [351-400:? 7 units] [Greater than 400:? 8 units and Call Physician] insulin lispro (HUMALOG/ADMELOG) injection 10 Units (COMPLETED) 10 Units, Subcutaneous, Once, 1 dose, On Wed07/09/24 at 1900, In addition to 1900 slide for glucose >500 1924 (Given - Provider: Jb Archer, ADONIS) insulin NPH (HUMULIN N) injection 15 Units (COMPLETED) 15 Units, Subcutaneous, Once, 1 dose, On Wed07/09/24 at 2200 2243 (Given - Provider: Jb Archer RN) insulin regular (NOVOLIN R/HUMULIN R) injection 5 Units (COMPLETED) 5 Units, Intravenous, Once, 1 dose, On Wed07/09/24 at 1330, For sliding scale, activate Sliding Scale Insulin order set. 1405 (Given - Provider: Pat Euceda RN) insulin regular (NOVOLIN R/HUMULIN R) injection 5 Units (COMPLETED) 5 Units, Intravenous, Once, 1 dose, On Wed07/09/24 at 1500, For sliding scale, activate Sliding Scale Insulin order set. 1520 (Given - Provider: Lobito Jennings, ADONIS) lactated ringers bolus infusion 1,000 mL (COMPLETED) 1,000 mL, Intravenous, Administer over 30 Minutes, Once, 1 dose, On Wed07/09/24 at 1330 1403 (New Bag - Provider: Pat Euceda RN)1558 (Infusion Stop Time - Provider: Lobito Jennings, ADONIS) levothyroxine (SYNTHROID) tablet 100 mcg 100 mcg, Oral, Daily (levothyroxine), First dose on Wed07/10/24 at 0845, Until Discontinued, Avoid iron, calcium, and antacids within 4 hours of administration. 0858 (Given - Provid er: Eileen Alston RN) magnesium oxide (MAG-OX) tablet 400 mg 400 mg, Oral, Once, 1 dose, On Wed07/10/24 at 0830 0859 (Not Given - Provider: Eileen Alston RN - Reason: Patient/family declined) ondansetron (ZOFRAN) injection 4 mg (COMPLETED) 4 mg, Intravenous, Once, 1 dose, On Wed07/09/24 at 0945, IV push over 2-5 minutes. 1153 (Given - Provider: Lobito Jennings, ADONIS) potassium chloride CR (K-TAB) tablet 40 mEq 40 mEq, Oral, Once, 1 dose, On Wed07/10/24 at 0830, Do not break, chew, or crush. 0900 (Not Given - Provider: Eileen Alston RN - Reason: Patient/family declined) senna-docusate (SENOKOT-S) 8.6-50 MG tablet 1 tablet 1 tablet, Oral, Nightly at bedtime, First dose on 07/09/24 at 2100, Until Discontinued 2243 (Not Given - Provider: Jb Archer RN - Reason: Patient/family declined) sodium chloride 0.9% bolus infusion 1,000 mL (COMPLETED) 1,000 mL, Intravenous, Administer over 15 Minutes, Bolus (Once), 1 dose, On 07/09/24 at 1045 1155 (New Bag - Provider: Lobito Jennings, ADONIS)1320 (Infusion Stop Time - Provider: Lobito Jennings RN) Continuous Medication Order 07/08/2024 07/09/2024 07/10/2024 0.45 % NaCl with KCl 20 mEq infusion () at 300 mL/hr, Intravenous, Continuous, Starting on 07/09/24 at 1600, Until Wed07/09/24 at 1859 1717 (New Bag - Provider: Darby Jennings RN)2200 (Infusion Stop Time - Provider: Jb Archer RN) PRN Medication Order 07/08/2024 07/09/2024 07/10/2024 acetaminophen (TYLENOL) tablet 650 mg 650 mg, Oral, Every 4 hours PRN, Mild pain (Scale 1 - 3), Fever, Headaches, Starting on 07/09/24 at 1306, Until 07/10/24 at 1158, Maximum dose of acetaminophen is 4000 mg from all sources in 24 hours. albuterol sulfate HFA 108 (90 Base) MCG/ACT inhaler 2 puff 2 puff, Inhalation, Every 4 hours PRN, Wheezing, Shortness of breath, Starting on 07/09/24 at 1307, Until 07/10/24 at 1158 dextrose 10 % bolus infusion 125-250 mL 125-250 mL, Intravenous, Administer over 15 Minutes, As needed, Low blood sugar, Starting on 07/09/24 at 1457, Until 07/10/24 at 1158, Use in conjunction with DKA insulin and fluid orders. Administer slowly through a Y-site with fluid #2 to permit dilution. Glucose 70-100 - give 125 mL (12.5 g) Glucose below 70 - give 250 mL (25 g) When insulin infusion is discontinued, discontinue this order and use standard hypoglycemia standing orders. glucagon injection 1 mg 1 mg, Intramuscular, Once as needed, Other, Low blood sugar, 1 dose, Starting on Wed07/09/24 at 1457, Until Wed07/10/24 at 1158, If patient is verbally UNresponsive and no IV access with blood glucose less than 70 mg/dL. Do NOT repeat administration. naLOXone (NARCAN) injection 0.4 mg 0.4 mg, Intravenous, As needed, Opioid reversal, Starting on Wed07/10/24 at 0152, Until Wed07/10/24 at 1158 ondansetron (ZOFRAN) injection 4 mg 4 mg, Intravenous, Every 8 hours PRN, Nausea, Vomiting, Starting on Wed07/09/24 at 1306, Until Wed07/10/24 at 1158, IV push over 2-5 minutes. traMADol (ULTRAM) tablet 50 mg 50 mg, Oral, Every 6 hours PRN, Severe pain (Scale 8 - 10), Moderate pain (Scale 4 - 7), Starting on Wed07/10/24 at 0152, Until Wed07/10/24 at 1158 0201 (Given - Provid er: Jb Archer RN) Linked Groups Order Group 1: enoxaparin (LOVENOX) 40 MG/0.4ML syringe 40 mgJump to med 40 mg, Subcutaneous, Every 24 hours, First dose on Wed07/09/24 at 1230, Until Discontinued, Administer by deep SubQ injection alternating between the left or right anterolateral and left or right posterolateral abdominal wall. And Moderate Risk for VTE (COMPLETED) Group 2: insulin lispro (HUMALOG/ADMELOG) injection 0-16 Units (CANCELED)Jump to med 0-16 Units, Subcutaneous, 3 times daily before meals, First dose on Wed07/09/24 at 1800, Until Discontinued, Blood Glucose (USUAL Dosing): [Less than 70:? Initiate Hypoglycemia Standing Orders] [71-140: ? 0 units] [141-180:? 4 units] [181-220:? 6 units] [221-260:? 8 units] [261-300:? 10 units] [301- 350:? 12 units] [351-400:? 14 units] [Greater than 400:? 16 units and Call Physician] And insulin lispro (HUMALOG/ADMELOG) injection 0-8 Units (CANCELED) 0-8 Units, Subcutaneous, Nightly at bedtime, First dose on Wed07/09/24 at 2100, Until Discontinued, Blood Glucose (USUAL Dosing): [Less than 70:? Initiate Hypoglycemia Standing Orders] [71-180:? 0 units] [181-220:? 3 units] [221-260:? 4 units] [261-300:? 5 units] [301-350:? 6 units] [351-400:? 7 units] [Greater than 400:? 8 units and Call Physician] Group 3: insulin lispro (HUMALOG/ADMELOG) injection 0-16 UnitsJump to med 0-16 Units, Subcutaneous, 3 times daily before meals, First dose on Wed07/10/24 at 1100, Until Discontinued, Blood Glucose (USUAL Dosing): [Less than 70:? Initiate Hypoglycemia Standing Orders] [71-140: ? 0 units] [141-180:? 4 units] [181-220:? 6 units] [221-260:? 8 units] [261-300:? 10 units] [301- 350:? 12 units] [351-400:? 14 units] [Greater than 400:? 16 units and Call Physician] And insulin lispro (HUMALOG/ADMELOG) injection 0-8 UnitsJump to med 0-8 Units, Subcutaneous, Nightly at bedtime, First dose on Wed07/10/24 at 2100, Until Discontinued, Blood Glucose (USUAL Dosing): [Less than 70:? Initiate Hypoglycemia Standing Orders] [71-180:? 0 units] [181-220:? 3 units] [221-260:? 4 units] [261-300:? 5 units] [301-350:? 6 units] [351-400:? 7 units] [Greater than 400:? 8 units and Call Physician] documented in this encounter Additional Health Concerns Infection Onset Date Last Indicated Resolved Time MRSA Comment:04/03/24 +MRSA Left axilla 04/07/24 +MRSA Left axilla 04/03/2024 04/07/2024 Assessment Noted Time PHQ-9 Depression Total Score: 7 06/19/20 24 3:39 PM RHEUMATOLOGY SPECIALIST documented as of this encounter Care Teams Ditch Cleaner Relationship Specialty [place] [address] [facility] [address] [place] [address] PCP - General INTERNAL MEDICINE 02/22/24 07/09/24 Rosalia Garcia MD [facility] S [facility] [place] [phone] Consulting Physician ENDOCRINOLOGY 03/29/24 documented as of this encounter
--- OUTSIDE RECORDS SUMMARY | 2024-08-13 05:39 | XMS_ITS | Encounter Summary ---
Author Organization [facility] Address [address] [place] [address]. [place], [place] [id number] [place] [address] Care Team Providers Care Farmworker Bulbs Name Role Phone Joesph Jacobo MD Primary Care Provider [phone] Encounter Details Date Type Department Care Team (Latest Contact Info) Description 06/19/2024 Travel Social History Tobacco Use Types Packs/Day [...] any time in the past 12 m [facility], were you homeless or living in [...] Depression Total Score: 7 06/19/20 3:39 PM ROUTE RETURNER documented as of this encounter Care Teams Farmworker Bulbs Relationship Specialty Start [place] [address] [facility] [address] [place] [address] PCP - General INTERNAL MEDICINE 02/22/24 07/09/24 Rosalia Garcia MD [facility] [place] [phone] Consulting Physician ENDOCRINOLOGY 03/29/24 documented as of this encounter
--- OUTSIDE RECORDS SUMMARY | 2024-08-13 05:39 | XMS_ITS | Encounter Summary ---
Author Organization [facility] Address [facility] [place] [address] Care Team Providers Care Automatic Bow Maker Machine Tender Name Role Phone Adair Finn APRN-EXCELLENCE COACH Primary Care P rojadielder Reason for Visit * Reason Onset Date Comments Appointment 04/18/2024 Encounter Details Date Type Department Care Team (Late Contact Info) Description 04/18/2024 Telephone [facility] - Endocrinology [address] [place] [phone] Bry Berrios MD [address] [place], [place] [address] [address] [place] [address] Appointment Social History Tobacco Use Types Packs/Day Years Used Date Smoking Tobacco: Never Assessed Sex and Gender Information Value Date Recorded Sex Assigned at Not on file Gender Identity Not on file Sexual Orientation Not on file documented as of this encounter Miscellaneous Notes * Telephone Encounter - Beverly Perez - 04/18/2024 2:13 PM CDT Called patient to give update on new appointment left voice mail and mail an reminder. documented in this encounter Plan of Treatment Upcoming Encounters Date Type Department Care Team (Late st Contact Info) Description 08/23/2024 10:15 AM MASTICATOR Office Visit [facility] - Ophthalmology [address] [place] [phone] Sandeep Hernandez MD [facility] [place]PT [place] [phone] 09/27/2024 9:45 AM MASTICATOR Office Visit [facility] - Ophthalmology [address] [place] [phone] Buddy Fuller MD [address] [place] [address] [place] [phone] 10/04/2024 1:00 PM MASTICATOR Office Visit [facility] - Endocrinology [address] [place] [phone] Rosalia Hair MD [address] [facility] [place] [phone] 02/07/2025 8:30 AM CDT [facility] [address] [place] [phone] Roni Castañeda MD [address] [place] [address] [place] [phone] documented as of this encounter Visit Diagnoses Not on filedocumented in this encounter Care Teams Automatic Bow Maker Machine Tender Relationship Specialty Start Date End Date Adair Finn, TRISHA-EXCELLENCE COACH [address] [place] [address] PCP - General Nurse Practitioner Adult Health 03/29/24 08/09/24 documented as of this encounter
--- OUTSIDE RECORDS SUMMARY | 2024-08-13 05:39 | XMS_ITS | Encounter Summary ---
Author Organization [facility] Address [address] [place] [address]. [place], [place] [address] [place] [address] Care Team Providers Care Generator Operator Name Role Phone Joesph Jacobo MD Primary Care Provider [phone] Encounter Details Date Type Department Care Team (Latest Contact Info) Description 07/09/2024 Travel Social History Tobacco Use Types Packs/Day Years Used Date Smoking Tobacco: Some Days Cigarettes 0.5 15 Smokeless Tobacco: Current Alcohol Use Standard Drinks/Week Comments Not Currently 0 (1 standard drink = 0.6 oz pur e alcohol) [facility] Utilities Answer Date Recorded In [...] often do you attend chur ch or uatsdin services? Never 06/24/2024 Do you belong to any clubs o r organizations such as yazidism groups, unions, fraternal or athletic groups, or [...] Recorded Patient Health Questionnaire-2 Score 2 06/19/2024 [facility] of Occupat ional Health - Occupational Stress [...] any time in the past 12 m [facility], were you homeless or living in a fdc (including now)? No 06/24/2024 Comments No Sex [...] Lee RN Active documented in this encounter Plan [...] Depression Total Score: 7 06/19/20 3:39 PM CYCLE REPAIRER documented as of this encounter Care Teams Generator Operator Relationship Specialty [place] [address] [address] PCP - General INTERNAL MEDICINE 02/22/24 07/09/24 Rosalia Garcia MD [facility] [place] [address] [facility] [place] [phone] Consulting Physician ENDOCRINOLOGY 03/29/24 documented as of this encounter
--- OUTSIDE RECORDS SUMMARY | 2024-08-13 05:39 | XMS_ITS | Encounter Summary ---
Author Organization [facility] Address [address] [place] [address] Care Team Providers Care Strategy Specialist Name Role Phone Adair Finn APRN-MIXING TUMBLER OPERATOR Primary Care P rojadielder Reason for Visit * Reason Comments Establish Care Encounter Details Date Type Department Care Team (Late st Contact Info) Description 03/29/2024 2:20 PM CDT Office Visit [facility] - Endocrinology [address] 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) (Primary Dx); Hypothyroidism, unspecified type Social History Tobacco Use Types Packs/Day Years Used Date Smoking Tobacco: Never Assessed Sex and Gender Information Value Date Recorded Sex Assigned at Not on file Gender Identity Not on file Sexual Orientation Not on file documented as of this encounter Last Filed Vital Signs Vital Sign Reading Time Taken Comments Blood Pressure 127/87 03/29/2024 2:44 PM CDT Pulse 114 03/29/2024 2:44 PM CDT Temperature - - Respiratory Rate 20 03/29/2024 2:44 PM CDT Oxygen Saturation 97% 03/29/2024 2:44 PM CDT Inhaled Oxygen Concentration - - Weight 58.5 kg (129 lb) 03/29/2024 2:44 PM CDT Height 160 cm (5' 3 ) 03/29/2024 2:44 PM CDT Body Mass Index 22.85 03/29/2024 2:44 PM CDT documented in this encounter Patient Instructions * Patient Instructions* Rosalia Hair MD - 03/29/2024 3:45 PM CDT - Give 1 unit insulin for every 40 mg BG above 140 mg thrice daily with meals - Use 6 units of insulin with thrice daily meals documented in this encounter Progress Notes * Elder Garza MD - 03/29/2024 3:50 PM CDT Madeleine Mendoza is a 38 year old female with Encounter Diagnoses Name Primary? 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) Yes Hypothyroidism, unspecified type on omnipod Usually on manual mode and not bolusing Yesterday in ED for left lymph node infection has skin lesions Followed by eye BP 127/87 Pulse (!) 114 Resp 20 Ht 1.6 m (5' 3 ) Wt 58.5 kg (129 lb) SpO2 97% Physical Examination: General appearance - alert, well appearing, and in no distress Mental status - alert, oriented to person, place, and time Eyes - pupils equal and reactive, extraocular eye movements intact Neck - supple, no significant adenopathy Lymphatics - no palpable lymphadenopathy, no hepatosplenomegaly Chest - clear to auscultation, no wheezes, rales or rhonchi, symmetric air entry Heart - normal rate, regular rhythm, normal S1, S2, no murmurs, rubs, clicks or gallops Abdomen - soft, nontender, nondistended, no masses or organomegaly Extremities - peripheral pulses normal, no pedal edema, no clubbing or cyanosis Skin - normal coloration and turgor, no rashes, no suspicious skin lesions noted Plan Basal rate 0.9u/h meal 6 utnis CF 1:40>140 q 4 Refer to pump clinic and omnipod for instruction 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 She was initially diagnosed with DM said to be type 2 in 2019 but was later diagnosed as type 1 in 2021 by her lsw atthe time. She reports no blood work done to confirm this. Since then she has been on insulin. Last endocrinology visit was a year ago. She reports forgetting to switch back off manual mode after being triggered by insulin pump. She reports last episode of DKA as 3 months/ She reports perpetual hyperglycemia but had an hypoglycemic episode 3 months ago. She has hypoglycemia awareness. She presented to the ED yesterday for left arm cellulitis and was prescribed keflex. At the time she says her BGwas in 700s and she was offered fluid rehydration and insulin but declined. She uses humalog U100. She is currently on Dexcom 6, omnipo 5 started 03/2023. There is positive family history of DM type 2 in family. She reports Polyuria, polydipsia. She reports stable weight. She denies palpitations, tremors. She also has hypothyroidism dx in 08/2019 for which she is on LT4 100 mcg. She denies constipation and skin changes. She reports hair loss. She reports occasional lethargy more related with menstruation but has SU. No family history of thyroid ds. Her lats TFT was in 2019. No thyroid sx. She reports difficulty swallowing but no change her voice or difficulty breathing. HBA1C > 15 today DM complications: Neuropathy - numbness and tingling in fingers and foot She is not aware of other complication Eye exam: No recent dilated eye exam She had a recent cataract surgery Foot exam None Insulin pump regimen: She does carb counting Max bolus: 30 ICR: 1:15 ICF: 1:55 Trget 150 0.9/hr of basal CGM reading: She is not currently connected to our clinic but on phone clarity assessment for 02/28 - 03/09 2024 Av gluc 385 SD 38 GMI 12.5% TIR: 0% Low: 0 High: 2% Very high: 98 % Diet: She reports polyphagia and try to restrict carb intake. She has seen a dietitian PMHx: HTN, cataract, DM 1, hypothyroidism PSurgHx: 2019 - TUBAL LIGATION WITH ENDOMETRIAL ABLATION Left cataract surgery Current Meds: Outpatient Medications Marked as Taking for the 03/29/24 encounter (Office Visit) with Rosalia Hair MD Medication Sig cephalexin (Keflex) 500 MG capsule Take 1 (one) capsule by mouth 4 times daily Continuous Glucose Sensor (Dexcom G6 Sensor) MISC Continuous Glucose Transmitter (Dexcom G6 Transmitter) MISC INV-mupirocin calcium (Nasal) 2 % ointment Use 0.5 (one-half) g as instructed every 8 hours for 10 days Apply into affected nostril(s) twice daily. sulfamethoxazole-trimethoprim (Bactrim DS; Septra DS) 800-160 MG tablet Take 1 (one) tablet by mouth 2 times daily for 10 days All:No Known Allergies FamHx: No family history on file. 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 + tingling Psych: mild memory problems All other review of systems negative Physical Exam: BP 127/87 Pulse (!) 114 Resp 20 Ht 1.6 m (5' 3 ) Wt 58.5 kg (129 lb) SpO2 97% Gen: NAD, well-appearing HEENT: NCAT Thyroid: no swelling CV: RRR, no murmurs Lungs: CTA b/l, unlabored respirations Abd: soft, non-tender Neuro: alert, no focal deficits BERNARD: left arm tenderness with erythema Skin: ulcers at different healing stages Laboratory Data: Recent Labs Component Name 03/29/24 1444 HGBA1C 15 No results for input(s): TSH in the last 03085 hours. No results for input(s): MICROALBCREA in the last 39551 hours. Recent Labs Component Name 03/29/24 1444 HGBA1C 15 No results for input(s): SODIUM , POTASSIUM , CHLORIDE , CO2 , BUN , CREATININE , GLUCOSE , CALCIUM in the last 41165 hours. No results for input(s): CHOL , TRIG , HDL , LDLCALC in the last 19834 hours. Assessment: Madeleine was seen today for establish care. 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 Hypothyroidism DM type 1 Other: Left arm cellulitis on keflex 38 y.o woman with uncontrolled type 1 DM as well as hypothyroidism on LT4. 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 Will continue to follow with you. Patient seen and discussed with attending Rosalia Hair MD Endocrinology, Diabetes & Metabolism fellow Associated attestation - Elder Garza MD - 03/30/2024 3:51 PM CDT Seen and examined,reviewed and confirmed with house staff evaluation and note. See progress note. documented in this encounter Plan of Treatment Upcoming Encounters Date Type Department Care Team (Late st Contact Info) Description 08/23/2024 10:15 AM CURRICULUM COACH Office Visit [facility] - Ophthalmology [address] [place] [phone] Sandeep Hernandez MD [address] [place] [address] [place] [phone] 09/27/2024 9:45 AM CURRICULUM COACH Office Visit [facility] - Ophthalmology [address] [place] [phone] Buddy Fuller MD [address] [place] [address] [place] [phone] 10/04/2024 1:00 PM CURRICULUM COACH Office Visit [facility] - Endocrinology [address] [place] [phone] Rosalia Hair MD [address] [facility] [place] [phone] 02/07/2025 8:30 AM CDT Office Visit [facility] - Rheumatology [address] [place] [phone] Roni Castañeda MD [address] [place] [address] [place] [phone] Scheduled Orders Name Type Priority Associated Diagnoses Orde r Schedule TSH Lab Routine Hypothyroidism, unspecified type 1 Occurrences starting 03/29/2024 until 04/23/2025 MICROALB/CREAT RATIO URINE RANDOM PANEL Lab Routine 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) 1 Occurrences starting 03/29/2024 until 04/23/2025 LIPID PROFILE Lab Routine 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
--- OUTSIDE RECORDS SUMMARY | 2024-08-13 05:39 | XMS_ITS | Encounter Summary ---
Author Organization [facility] Address [address] [place] [address] Care Team Providers Care Mac Operator Name Role Phone Unavailable Primary Care Provider Unavailabl e Encounter Details Date Type Department Care Team (Latest Contact Info) Description 02/22/2024 Travel Social History Tobacco Use Types Packs/Day Years Used Date Smoking Tobacco: Never Assessed Sex and Gender Information Value Date Recorded Sex Assigned at Not on file Gender Identity Not on file Sexual Orientation Not on file documented as of this encounter Plan of Treatment Upcoming Encounters Date Type Department Care Team (Late st Contact Info) Description 08/23/2024 10:15 AM BUSINESS SYSTEM MANAGER Office Visit [facility] - Ophthalmology [address] [place] [phone] Sandeep Hernandez MD [facility] DEPT [place] [address] 09/27/2024 9:45 AM BUSINESS SYSTEM MANAGER Office Visit [facility] - Ophthalmology [address] [place] [phone] Buddy Fuller MD [facility] [place]PT [place] [address] 10/04/2024 1:00 PM BUSINESS SYSTEM MANAGER Office Visit [facility] - Endocrinology [address] [place] [phone] Rosalia Hair MD [address] [facility] [place] [phone] 02/07/2025 8:30 AM CDT Office Visit [facility] - Rheumatology [address] [facility], [place] [address] Roni Castañeda MD [address] [facility] [place] [address] documented as of this encounter Visit Diagnoses Not on filedocumented in this encounter
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
--- OUTSIDE RECORDS SUMMARY | 2024-08-13 05:39 | XMS_ITS | Encounter Summary ---
Author Organization [facility] Address [address] [place] [address]. [place], [place] [id number] [place] [id number] Care Team Providers Care Medical Reviewer Name Role Phone Jennifer Ramirez MD Primary Care Provider [phone] Reason for Referral * Imaging (Urgent) - New Request Specialty Diagnoses / Procedures Referred By Contac t Referred To Contact RADIOLOGY Procedures CT ORBITS W CON David Connelly NP [address] [place] [id number] Phone: tel: fax: Referral ID Status Reason Start Date Expiration Date V isits Requested Visits Authorized [id number] New Request 06/23/2024 06/23/2025 1 1 Y MARKET CLERK Reason for Visit * Reason Comments Eye Problem * Auth/Cert (Routine) Specialty Diagnoses / Procedures Referred By Contalyse t Referred To Contact Diagnoses Hyperglycemia Periorbital cellulitis 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 ([facility]/HCC HHS/HCC) Procedures Michele Iqbal MD 1 [place] [address] Phone: tel: fax: Referral ID Status Reason Start Date Expiration Date Visits Re quested Visits Authorized [id number] 1 1 Encounter Details Date Type Department Care Team (Latest Contact Info) Description 06/23/2024 5:51 PM MONEY MARKET CLERK - 06/25/2024 11:40 AM MONEY MARKET CLERK [facility] [address] [place] [address] Sim Reed MD [address] [id number] Michele Noel MD 1 [place] [address] Maliha Gonzalez NP 1 [facility] [place] [address] [phone] (Work) Eye Problem Discharge Disposition: Home or Self Care (Routine Discharge) Social History Tobacco Use Types Packs/Day Years Used Date Smoking Tobacco: Some Days Cigarettes 0.5 15 Smokeless Tobacco: Current Alcohol Use Standard Drinks/Week Comments Not Currently 0 (1 standard drink = 0.6 oz pur e alcohol) [facility] Utilities Answer Date Recorded In the past [address] [facility] [employer], gas, oil, or water [employer] threatened to shut off services in your [...] often do you attend chur ch or shinto services? Never 06/24/2024 Do you belong to any clubs o r organizations such as sabianist groups, unions, fraternal or athletic groups, or [...] Recorded Patient Health Questionnaire-2 Score 2 06/19/2024 [facility] - [...] any time in the past [facility], were you homeless or living in a longterm (including now)? No 06/24/2024 Comments No Sex and Gender Information Value Date Recorded Sex Assigned at Not on file Legal Sex Female 7:10 PM CDT Gender Identity Not on file Sexual Orientation Not on file documented as of this encounter Last Filed Vital Signs Vital Sign Reading Time Taken Comments Blood Pressure 121/96 06/25/2024 11:11 AM MONEY MARKET CLERK Pulse 89 06/25/2024 11:11 AM MONEY MARKET CLERK Temperature 37 ??C (98.6 ??F) 06/25/2024 11:11 AM MONEY MARKET CLERK Respiratory Rate 15 06/25/2024 11:11 AM MONEY MARKET CLERK Oxygen Saturation 100% 06/25/2024 11:11 AM MONEY MARKET CLERK Inhaled Oxygen Concentration - - Weight 57.2 kg (126 lb) 06/23/2024 5:49 PM MONEY MARKET CLERK Height 160 cm (5' 3 ) 06/23/2024 5:49 PM MONEY MARKET CLERK Body Mass Index 22.32 06/23/2024 5:49 PM MONEY MARKET CLERK documented in this encounter Functional Status * Question Answer Date of Assessment Author Status Do you have serious difficulty walking or climbing stairs? No 06/23/2024 10:05 PM Camacho Lee v, RN Active * Question Answer Date of Assessment Author Status Do you have difficulty dressing or bathing? No 06/23/2024 10:05 PM Melecio Lee RN Active Because of a physical, mental, or emotional condition, do you have difficulty doing errands alone such as visiting a doctor's office or shopping? No 06/23/2024 10:05 PM Camacho Lee v, RN Active * Are you deaf or do you [...] difficulty concentrating, remembering, or making decisions? No 06/23/2024 10:05 PM Rui Lee RN Active * Because of a physical, mental, or emotional condition, do you have serious difficulty concentrating, remembering, or making decisions? Answer Entry Date Author Status No 06/23/2024 10:05 PM Rui Lee RN Active documented in this encounter Discharge Summaries * Maliha Gonzalez NP - 06/25/2024 9:21 AM CST Images from the original note were not included. Hospitalist Discharge Summary Patient ID: Madeleine Mendoza. female. 1985. Admit date: 06/23/2024 5:51 PM Discharge date and time: 06/25/24 Admitting Physician: Michele Noel MD Attending Physician: Maliha Gonzalez NP Primary Care Physician: JENNIFER RAMIREZ MD Discharge Physician: Maliha Gonzalez NP Hospital Diagnosis: Periorbital cellulitis Admission Condition: fair Discharged Condition: Stable Code Status: Full Code Indication for Admission: Chief Complaint Patient presents with Eye Problem Readmission/Mortality Score at discharge: Low 0-28, Medium 29-58, High >59 Hospital Course: Per H/P:Patient seen and evaluated by this provider. History obtained via chart review, discussion with patient, and review of outside records from Care Everywhere. 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 Pt presents to ER at the instruction of her quantitative researcher gerri developing erythema and swelling surrounding her right eye. Upon my assessment, pt is A/O x 3. Pt states when she went to bed last night she had no swelling orerythema present. However, upon awakening this morning there was right orbital swelling and erythema. She denies any known trauma; however she admits to picking at a scab located beneath her right eye. Reports hx of MRSA. Pt has significant ocular problem to bilateral eyes at baseline. Hx of Grade III disc edema OS , White cataract OD with poor vision bilaterally. 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 She is managed per quantitative researcher/Retina specialist and scheduled to see Neuro quantitative researcher next week. She reports the vision out of her right eye is atbaseline. No acute or worsening deficits. No drainage. Denies chills, rigors. States her temp > 100.4 F at home after taking hot shower; however normalized without antipyretics after cooling off. Denies headaches, dizziness, focal weakness, numbness/tingling, increased confusion, difficulty with speech and gait abnormality. She reports chronic dentition with broken tooth on upper right side. Pt reports she has been eating and drinking without difficulty. Denies abdominal pain, n/v/d, melena, hemtochezia and hematemesis. She has been urinating without difficulty; Denies dysuria, hematuria. She took of her insulin pump earlier today in anticipation of coming to ER. She was unsure if she would be allowed to utilize her home pump. She denies acute illness, cough, known ill contacts. She reports dyspnea on exertion at baseline. Pt denies CP, diaphoresis, palpitations, orthopnea, presyncopal or syncopal episiodes. Pt will be admitted for further evaluation and treatment. I anticipate she will require greater than a 2 midnight stay. The following problems were addressed during hospital stay: Periorbital cellulitis-Right side NO sepsis at this time Leukocytosis=11.10 Blood Cultures x 2 Lactate WNL=1.2 Hx of MRSA Left axillary 04/2024 IV Vancomycin, IV Ceftriaxone Pharmacy to dose Vancomycin CT Orbits as above Blood CX NGTD Pt has chronic poor vision at baseline; obtain visual acuity if able 06/24 Consult ID 06/25 ID REC'S; The main offensive is more than likely MRSA given the rapid progression (and/or Strep, ie GAS, GCS,etc.) If blood culture remains neg by tomorrow (24-48hrs) and she is clinically improving, can stop IV abx and start Linezolid 600 bid x 10 days. Close follow up with quantitative researcher, and examination. Extend abx as needed (no more than 14 days of linezolid for risk of BM suppression. If further abx needed, consider Doxycycline at that point) Glucose control Poor vision bilaterally Hx of Grade III disc edema OS , White cataract OD Followed by quantitative researcher/ Retina specialist scheduled to see Neuro quantitative researcher Type 1 diabetes mellitus With hyperglycemia-NO DKA Serum [id number] upon arrival Pt reports she took off her insulin pump earlier today Ok to restart home insulin pump after it is verified per hospital pharmacy protocol accu checks achs Hypoglycemic protocol A1c Hyponatremia Na+=123; corrected for [id number]=245 Serum osmolality, urine osmolality, urine sodium ordered Continue to monitor Hypothyroidism Continue levothyroxine Stable co morbidities contributing to high complexity of care Raynauds, anemia, cataract Findings that require further workup: FOLLOW UP WITH PCP FOLLOW UP WITH Hvac Engineer, Consults: ID Significant Diagnostic Studies: Recent Results (from the past 24 hours) POCT glucose Collection Time: 06/24/24 11:16 AM Result Value Ref Range GLUCOSE POC 337 (H) 70 - 99 mg/dL POCT glucose Collection Time: 06/24/24 3:41 PM Result Value Ref Range GLUCOSE POC 393 (H) 70 - 99 mg/dL CBC W/DIFF AUTOMATED Collection Time: 06/25/24 8:20 AM Result Value Ref Range WBC 9.19 4.5 - 11.0 x10'3/uL RBC 4.18 (L) 4.20 - 5.40 x10'6/uL HGB 11.5 (L) 12.0 - 16.0 G/DL HCT 35.5 (L) 38.0 - 48.0 % MCV 84.9 81.0 - 99.0 FL MCH 27.5 27.0 - 31.0 PG MCHC 32.4 32.0 - 36.0 G/DL RDW 14.0 11.5 - 14.5 % PLT 345 130 - 400 x10'3/uL MPV 9.8 9.3 - 12.2 FL DIFFERENTIAL TYPE AUTOMATED DIFFERENTIAL NEUTROPHILS % 72.5 % LYMPHOCYTES % 18.6 % MONOCYTES % 5.8 % EOSINOPHILS 2.4 % BASOPHILS 0.4 % IMMATURE GRANS % 0.3 % ABS. NEUTROPHILS 6.66 1.80 - 7.70 x10'3/uL ABS. LYMPHOCYTES 1.71 1.00 - 4.80 x10'3/uL ABS. MONOCYTES 0.53 0.24 - 0.86 x10'3/uL ABS. EOSINOPHILS 0.22 0.04 - 0.36 x10'3/uL ABS. BASOPHILS 0.04 0.01 - 0.08 x10'3/uL ABS. IMMATURE GRANULOCYTES 0.03 0.00 - 0.49 x10'3/uL COMPREHENSIVE METABOLIC PANEL Collection Time: 06/25/24 8:20 AM Result Value Ref Range GLUCOSE 318 (H) 70 - 99 MG/DL BUN 11 7 - 18 MG/DL CREATININE S/P/B 0.69 0.55 - 1.02 MG/DL SODIUM S/P/B 133 (L) 136 - 145 MMOL/L POTASSIUM S/P/B 3.8 3.5 - 5.1 MMOL/L CHLORIDE S/P/B 100 97 - 115 MMOL/L CO2 29.2 21 - 32 MMOL/L CALCIUM S/P/B 8.4 (L) 8.5 - 10.1 MG/DL BILIRUBIN TOTAL S/P/B 0.1 (L) 0.2 - 1.2 MG/DL TOTAL PROTEIN S/P/B 7.2 6.4 - 8.2 G/DL ALBUMIN S/P/B 2.8 (L) 3.4 - 5.0 G/DL AST 17 15 - 37 U/L ALT 17 14 - 55 U/L ALKALINE PHOSPHATASE S/P/B 134 50 - 136 U/L ANION GAP 3.8 2 - 10 MMOL/L BUN CREATININE RATIO 16.0 6 - 26 A/G RATIO 0.6 (L) 1.0 - 2.0 RATIO GFR ESTIMATE >90 >90 ML/MIN/1.73 M2 Microbiology: Blood: Results for orders placed or performed during the hospital encounter of 06/23/24 (from the past week) CULTURE, BACTERIA, BLOOD Collection Time: 06/23/24 6:37 PM Specimen: BLOOD Result Value Ref Range SPEC DESCRIPTION BLOOD SPECIAL REQUESTS NO SPECIAL REQUEST CULTURE RESULT NO GROWTH 2 DAYS Urine: No results found for this visit on 06/23/24 (from the past week). Imaging: XR CHEST PORTABLE Result Date: 06/23/[address] [address] INDICATION: Dyspnea COMPARISON: None TECHNIQUE: Single AP radiographic image of the chest FINDINGS: No pneumothorax or pleural effusion. Mild central peribronchial cuffing. No focal airspace consolidation. Pulmonary vasculature and cardiomediastinal silhouette within normal limits. No acute osseous abnormality. Chronic, healed fractures of posterior right ribs 3 and 4. IMPRESSION: Mild central peribronchial cuffing, compatible with bronchitis versus reactive airway disease. Referred By: Interpreted By: Yusuf Ashby MD, 06/23/2024 9:[address] ORBITS W CON Result Date: 06/23/[address] [address] EXAM: CT ORBITS W CON DATE: 06/23/2024 [...] are clear. No bone destruction. The orbital [id number] not include the oral cavity. This could [...] By: Flynn Flores MD, 06/23/2024 7:27 PM EKG: No results found for this visit on 06/23/24. Discharge Exam: Filed Vitals: 06/24/24 1925 06/25/24 0032 06/25/24 0501 06/25/24 0839 BP: 117/80 108/80 121/88 117/85 Pulse: 88 75 (!) 101 88 Resp: 20 20 15 Temp: 99 ??F (37.2 ??C) 97.9 ??F (36.6 ??C) 98.1 ??F (36.7 ??C) 98.2 ??F (36.8 ??C) TempSrc: Oral Oral Oral SpO2: 100% 100% 100% Weight: Height: Physical Exam: Constitutional: Well developed, Well nourished, No acute distress, Non-toxic appearance. HENT: Normocephalic, Oropharynx moist Eyes: PERRL, swelling and erythema surrounding right orbit; pt able to open her eye. Vision is at baseline per pt Improving Neck- Normal range of motion, No tenderness, Supple, No stridor. Respiratory: Bilaterally clear to auscultation with no rales, rhonchi, or wheezes. No accessory muscle use. Cardiovascular: S1, S2 present, regular rate and rhythm. Bilateral radial and dorsalis pedis pulses+2. No pedal edema. GI: Bowel sounds normal, Soft, No tenderness or guarding, Musculoskeletal: Intact distal pulses, No major deformities noted. Integument: Warm, Dry, No erythema, No rash. Neurologic: Alert & oriented x 3, No focal deficits noted. Psychiatric: Affect normal, Judgment normal, Mood normal Discharge Medications: Medication List START taking these medications Morning Afternoon Evening Bedtime As Needed linezolid 600 MG tablet Commonly known as: ZYVOX Take 1 tablet (600 mg total) by mouth 2 (two) times daily for 10 days. Signed by: Maliha Gonzalez 1 tablet 1 tablet CONTINUE taking these medications Morning Afternoon Evening Bedtime As Needed Dexcom G6 Sensor Misc See Instructions Dexcom G6 Transmitter Misc See Instructions HumaLOG 100 UNIT/ML injection (VIAL) Inject 0-80 Units into the skin see administration instructions. Basal: 0.9 units/hr continuous Bolus (max of 30 units/bolus): - CHO ratio: 1 unit: 15 g CHO - Sensitivity Factor: 1 units: 55 mg/dL over target - Target BG = 150 mg/dL Programmed duration of action: 5 hours. Generic drug: insulin lispro Inject 0-80 Units [...] time this was given: 100 mcg on June 25, 2024 7:03 AM Last time this was given: June 25, 2024 7:03 AM 1 tablet Omnipod 5 [id number] Pods Gen 5 Misc USE AND CHANGE EVERY 48 HOURS USE AND CHANGE EVERY 48 HOURS Disposition: Home with self care Time Spent on Discharge: A total of 38 minutes was spent in discharge planning for this patient. Signed: Maliha Gonzalez NP 06/25/2024 10:23 AM Cosigned by Toni Navarrete MD at 06/27/2024 6:25 AM MONEY MARKET CLERK Y MARKET CLERK Y MARKET CLERK documented in this encounter Discharge Instructions * Discharge Instructions* Maliha Gonzalez NP - 06/25/2024 9:38 AM MONEY MARKET CLERK FOLLOW UP WITH SPECIALIST; [facility] Op[facility]mology [address] [place] [phone] Rosalia Hair MD [address] [facility] [place] [phone] Y MARKET CLERK Y MARKET CLERK * Attachments The following attachments cannot be sent through Care Everywhere. * Cellulitis Around the Eye Discharge Instructions (Montenegrin) documented in this encounter Medications at Time of Discharge Continuous Gl[place]DEXCOM [place]6 SENSOR[place] [facility] [place] Continuous Glucose Transmitter (DEXCOM G6 TRANSMITTER[place] [facility] [place]07/[place] HUMALOG 100 UNIT/ML injection (VIAL) Inject [...] (100 mcg total) by mouth every morning. linezolid (ZYVOX) 600 MG tablet Take 1 tablet (600 mg total) by mouth 2 (two) times daily for 10 days. 20 tablet 06/25/2024 07/05/20 24 documented as of this encounter Progress Notes * Darlin Delgado RN - 06/25/2024 10:38 AM CST 06/25/24 1037 Discharge Planning Living Arrangements Family members Support Systems Family members Type of Residence Private residence Assistance Needed No Patient expects to be discharged to: Home or Self care no new needs Insurance Authorization needed No Does the patient need discharge transport arranged? No IV Infusion at discharge No DME Needed at Discharge No Y MARKET CLERK * Darlin Delgado RN - 06/25/2024 10:11 AM CST DISCHARGE PLANNING: TINEO CHECKED LINEZOLID $0 PHARMACY HAS IN STOCK Y MARKET CLERK * Facundo Villasenor PharmD, [facility] - 06/25/2024 9:05 AM CST Vancomycin Pharmacy to Dose Day #3 Ordering Provider: Estrella Taveras/dieudonne Indication: SSTI AUC goal: 400 - 600 Ht/Wt: 160 cm, 57.2 kg Individualized trough goal: 11.5 - 15.5 mcg/mL Date WBC SCr CrCl Tmax Level 06/23 11.10 0.96 64 98.2 06/24 9.1 0.56 109.4 98.7 4.4 06/25 9.2 0.69 88.8 99.0 Other Antibiotics: - Ceftriaxone Cultures/Tests: - Blood (06/23): pending - CT orbits w/contrast (06/23): 1. Large area of abnormal periorbital soft tissue. 2. Asymmetric conjunctival enhancement on the right side. Potential anterior scleral enhancement onthe right side. Kinetics Assessment: 06/24 Regimen: 1500 mg IV every 12 hours. Start time: 13:00 on 06/24/2024 Exposure target: AUC24 (range)400-600 mg/L.hr AUC24,ss: 475 mg/L.hr Probability of AUC24 > 400: 84 % Ctrough,ss: 9 mg/L Probability of Ctrough,ss > 20: 1 % Probability of nephrotoxicity (Lodise OCHOA 2008): 5 % A/P: Pharmacy was consulted to dose vancomycin for this patient's cellulitis by Estrella Taveras/paco service. Patient presents with right orbital swelling and erythema. Vancomycin was initiated with a 1250 mg loading dose. WBC count is stable this morning, SCR is slightly higher than yesterday but improved over baseline.Will continue vancomycin unchanged at 1500mg every 12 hours. Will recheck a level with AM labs tomorrow 06/26 to ensure safe dosing. Y MARKET CLERK * Corey King RN - 06/25/2024 3:45 AM CST Problem: Pain Goal: Patient's pain/discomfort is manageable Description: Assess and monitor patient's pain using appropriate pain scale. Collaborate with interdisciplinary team and initiate plan and interventions as ordered. Re-assess patient's pain level 30 - 60 minutes after pain management intervention. Outcome: Progressing Problem: Safety Goal: Patient will be injury [...] per policy, and non-skid footwear provided. Outcome: Progressing Problem: Daily Care Goal: Daily care needs are met Description: Assess and monitor ability to perform self care and identify potential discharge needs. Outcome: Progressing Problem: Psychosocial Needs Goal: Demonstrates ability to cope with hospitalization/illness Description: Assess and monitor patients ability to cope with his/her illness. Outcome: Progressing Goal: Collaborate with patient/family/caregiver to identify patient specific goals for this hospitalization Outcome: Progressing Problem: Discharge Barriers Goal: Patient's discharge needs are met Description: Collaborate with interdisciplinary team and initiate plans and interventions as needed. Outcome: Progressing Problem: Discharge Planning Goal: Knowledge of discharge instructions Outcome: Progressing Problem: Pain control/comfort Goal: Promote pain control/comfort Outcome: Progressing Problem: Skin integrity, Impaired-wound Goal: Absence of new skin breakdown Outcome: Progressing Goal: Evidence of wound healing Outcome: Progressing Problem: Skin integrity, Impaired-pressure injury/ulcer Goal: Absence of new skin breakdown Outcome: Progressing Goal: Evidence of pressure injury/ulcer healing Outcome: Progressing Problem: Skin integrity, at risk Goal: Absence of new skin breakdown Outcome: Progressing Problem: Moisture associated skin impairment Goal: Reduce moisture exposure Outcome: Progressing Goal: Evidence of wound healing Outcome: Progressing Goal: Evidence of pressure injury/ulcer healing Outcome: Progressing Goal: Absence of new skin breakdown Outcome: Progressing Problem: Reduced risk for falls/injury Goal: Reduced Risk for Falls/Injury Outcome: Progressing Goal: Reduced Risk of Confusion (Acute vs Chronic) Outcome: Progressing Goal: Reduced Risk of Symptomatic Depression Outcome: Progressing Goal: Reduced Risk of Altered Elimination Outcome: Progressing Goal: Reduced Risk of Dizziness/Vertigo/Balance Outcome: Progressing Goal: Reduced Risk of Polypharmacy Outcome: Progressing Y MARKET CLERK * Maliha Gonzalez NP - 06/24/2024 9:42 AM CST Hospitalist Daily Progress Note Subjective Madeleine Mendoza is a 39-year-old female with past medical history of hypothyroidism, Raynauds, anemia, cataract, 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 Fever, increased pain, swelling to right eye. PERIORBITAL CELLULITIS. CT Orbits; Large area of abnormal periorbital soft tissue. Asymmetric conjunctival enhancement on the right side. Potential anterior scleral enhancement on the right side. Pt started on Vancand Ceftriaxone. In the past 24hrs: Lab Trends: Na 123>135 Glucose 750>312 Alk Phos 181>126 WBC 11.10>9.06 Hbg 13>11.3 CRP 3.85 On my evaluation today: No fevers, on room air, BP this am 102/67 Continues on Vancomycin Continues on Ceftriaxone NEW ADMISSION FROM YESTERDAY Continues with right eye swelling. ID consulted Review of Systems Constitutional: Positive for chills, diaphoresis and malaise/fatigue. Eyes: Positive for blurred vision. Respiratory: Negative for shortness of breath. Cardiovascular: Negative for chest pain and leg swelling. Gastrointestinal: Negative. Genitourinary: Negative. Skin: Positive for rash. Neurological: Positive for sensory change. Endo/Heme/Allergies: Negative. Objective Filed Vitals: 06/23/24 2100 06/23/24 2157 06/24/24 0515 06/24/24 0714 BP: 114/66 105/62 125/88 102/67 Pulse: 96 94 89 Resp: 15 15 20 Temp: 98.7 ??F (37.1 ??C) 97.4 ??F (36.3 ??C) 97.8 ??F (36.6 ??C) TempSrc: Oral Oral Oral SpO2: 98% 99% 99% Weight: Height: Vital Most Recent Value First Value Weight 57.2 kg (126 lb) Weight: 57.2 kg (126 lb) Height 160 cm (5' 3 ) Height: 160 cm (5' 3 ) BMI 22.33 N/A Estimated body mass index is 22.32 kg/m?? as calculated from the following: Height as of this encounter: 1.6 m (5' 3 ). Weight as of this encounter: 57.2 kg (126 lb). Physical Exam: Constitutional: Well developed, Well nourished, No acute distress, Non-toxic appearance. HENT: Normocephalic, Oropharynx moist Eyes: PERRL, swelling and erythema surrounding right orbit; pt able to open her eye. Vision is at baseline per pt Neck- Normal range of motion, No tenderness, Supple, No stridor. Respiratory: Bilaterally clear to auscultation with no rales, rhonchi, or wheezes. No accessory muscle use. Cardiovascular: S1, S2 present, regular rate and rhythm. Bilateral radial and dorsalis pedis pulses+2. No pedal edema. GI: Bowel sounds normal, Soft, No tenderness or guarding, Musculoskeletal: Intact distal pulses, No major deformities noted. Integument: Warm, Dry, No erythema, No rash. Neurologic: Alert & oriented x 3, No focal deficits noted. Psychiatric: Affect normal, Judgment normal, Mood normal Intake/Output 24H Total: Intake/Output Summary (Last 24 hours) at 06/24/2024 0942 Last data filed at 06/24/2024 0939 Gross per 24 hour Intake 650 ml Output 1100 ml Net -450 ml Medication cefTRIAXone 2 g Intravenous Q24H levothyroxine 100 mcg Oral QAM vancomycin 1,500 mg Intravenous Q12H vancomycin pharmacy to dose Intravenous See Admin Instructions PRN Meds: dextrose 10 % bolus, glucagon, glucose Labs: Recent Results (from the past 24 hours) CBC W/DIFF AUTOMATED Collection Time: 06/23/24 5:51 PM Result Value Ref Range WBC 11.10 (H) 4.5 - 11.0 x10'3/uL RBC 4.67 4.20 - 5.40 x10'6/uL HGB 13.0 12.0 - 16.0 G/DL HCT 39.3 38.0 - 48.0 % MCV 84.2 81.0 - 99.0 FL MCH 27.8 27.0 - 31.0 PG MCHC 33.1 32.0 - 36.0 G/DL RDW 13.9 11.5 - 14.5 % PLT 400 130 - 400 x10'3/uL MPV 10.0 9.3 - 12.2 FL NEUTROPHILS % 84.3 % LYMPHOCYTES % 9.6 % MONOCYTES % 4.6 % EOSINOPHILS 0.4 % BASOPHILS 0.5 % IMMATURE GRANS % 0.6 % DIFFERENTIAL TYPE AUTOMATED DIFFERENTIAL ABS. NEUTROPHILS 9.36 (H) 1.80 - 7.70 x10'3/uL ABS. LYMPHOCYTES 1.07 1.00 - 4.80 x10'3/uL ABS. MONOCYTES 0.51 0.24 - 0.86 x10'3/uL ABS. EOSINOPHILS 0.04 0.04 - 0.36 x10'3/uL ABS. BASOPHILS 0.05 0.01 - 0.08 x10'3/uL ABS. IMMATURE GRANULOCYTES 0.07 0.00 - 0.49 x10'3/uL COMPREHENSIVE METABOLIC PANEL Collection Time: 06/23/24 5:51 PM Result Value Ref Range GLUCOSE 750 (HH) 70 - 99 MG/DL BUN 15 7 - 18 MG/DL CREATININE S/P/B 0.96 0.55 - 1.02 MG/DL SODIUM S/P/B 123 (L) 136 - 145 MMOL/L POTASSIUM S/P/B 4.4 3.5 - 5.1 MMOL/L CHLORIDE S/P/B 89 (L) 97 - 115 MMOL/L CO2 25.4 21 - 32 MMOL/L CALCIUM S/P/B 9.6 8.5 - 10.1 MG/DL BILIRUBIN TOTAL S/P/B 0.8 0.2 - 1.2 MG/DL TOTAL PROTEIN S/P/B 8.5 (H) 6.4 - 8.2 G/DL ALBUMIN S/P/B 3.7 3.4 - 5.0 G/DL AST 28 15 - 37 U/L ALT 23 14 - 55 U/L ALKALINE PHOSPHATASE S/P/B 181 (H) 50 - 136 U/L ANION GAP 8.6 2 - 10 MMOL/L BUN CREATININE RATIO 15.5 6 - 26 A/G RATIO 0.8 (L) 1.0 - 2.0 RATIO GFR ESTIMATE 76 (L) >90 ML/MIN/1.73 M2 LACTIC ACID W REFLEX (SEPSIS) Collection Time: 06/23/24 5:51 PM Result Value Ref Range LACTIC ACID VENOUS 1.2 0.4 - 2.0 MMOL/L SED RATE, ERYTHROCYTE (ESR) Collection Time: 06/23/24 5:51 PM Result Value Ref Range ESR 7 <20 MM/HR C-REACTIVE PROTEIN, HIGH SENSI Collection Time: 06/23/24 5:51 PM Result Value Ref Range HS-CRP 3.85 (H) <0.3 mg/dL PROCALCITONIN (PCT) Collection Time: 06/23/24 5:51 PM Result Value Ref Range Procalcitonin 0.12 0.00 - 0.49 NG/ML POCT glucose Collection Time: 06/23/24 9:05 PM Result Value Ref Range GLUCOSE POC 398 (H) 70 - 99 mg/dL OSMOLALITY, BLOOD Collection Time: 06/23/24 9:32 PM Result Value Ref Range OSMOLALITY (S/P/B) 299 (H) 270 - 290 MOSM/KG PRO-BRAIN NATRIURETIC PEPTIDE Collection Time: 06/23/24 9:32 PM Result Value Ref Range PRO-B TYPE NATRIURETIC PEPTIDE 47 <125 PG/ML POCT glucose Collection Time: 06/23/24 10:28 PM Result Value Ref Range GLUCOSE POC >500 (HH) 70 - 99 mg/dL POCT glucose Collection Time: 06/23/24 11:43 PM Result Value Ref Range GLUCOSE POC 405 (HH) 70 - 99 mg/dL CBC W/DIFF AUTOMATED Collection Time: 06/24/24 5:30 AM Result Value Ref Range WBC 9.06 4.5 - 11.0 x10'3/uL RBC 4.06 (L) 4.20 - 5.40 x10'6/uL HGB 11.3 (L) 12.0 - 16.0 G/DL HCT 34.2 (L) 38.0 - 48.0 % MCV 84.2 81.0 - 99.0 FL MCH 27.8 27.0 - 31.0 PG MCHC 33.0 32.0 - 36.0 G/DL RDW 14.1 11.5 - 14.5 % PLT 339 130 - 400 x10'3/uL MPV 9.8 9.3 - 12.2 FL DIFFERENTIAL TYPE AUTOMATED DIFFERENTIAL NEUTROPHILS % 72.0 % LYMPHOCYTES % 17.7 % MONOCYTES % 7.2 % EOSINOPHILS 2.0 % BASOPHILS 0.7 % IMMATURE GRANS % 0.4 % ABS. NEUTROPHILS 6.53 1.80 - 7.70 x10'3/uL ABS. LYMPHOCYTES 1.60 1.00 - 4.80 x10'3/uL ABS. MONOCYTES 0.65 0.24 - 0.86 x10'3/uL ABS. EOSINOPHILS 0.18 0.04 - 0.36 x10'3/uL ABS. BASOPHILS 0.06 0.01 - 0.08 x10'3/uL ABS. IMMATURE GRANULOCYTES 0.04 0.00 - 0.49 x10'3/uL COMPREHENSIVE METABOLIC PANEL Collection Time: 06/24/24 5:30 AM Result Value Ref Range GLUCOSE 312 (H) 70 - 99 MG/DL BUN 14 7 - 18 MG/DL CREATININE S/P/B 0.56 0.55 - 1.02 MG/DL SODIUM S/P/B 135 (L) 136 - 145 MMOL/L POTASSIUM S/P/B 3.6 3.5 - 5.1 MMOL/L CHLORIDE S/P/B 106 97 - 115 MMOL/L CO2 26.6 21 - 32 MMOL/L CALCIUM S/P/B 8.3 (L) 8.5 - 10.1 MG/DL BILIRUBIN TOTAL S/P/B 0.4 0.2 - 1.2 MG/DL TOTAL PROTEIN S/P/B 6.4 6.4 - 8.2 G/DL ALBUMIN S/P/B 2.6 (L) 3.4 - 5.0 G/DL AST 20 15 - 37 U/L ALT 15 14 - 55 U/L ALKALINE PHOSPHATASE S/P/B 126 50 - 136 U/L ANION GAP 2.4 2 - 10 MMOL/L BUN CREATININE RATIO 24.9 6 - 26 A/G RATIO 0.7 (L) 1.0 - 2.0 RATIO GFR ESTIMATE >90 >90 ML/MIN/1.73 M2 Vancomycin Random Level Collection Time: 06/24/24 5:30 AM Result Value Ref Range VANCOMYCIN RANDOM 4.4 MCG/ML LAST DOSE UNKNOWN LAST DOSE POCT glucose Collection Time: 06/24/24 5:38 AM Result Value Ref Range GLUCOSE POC 315 (H) 70 - 99 mg/dL OSMOLALITY, URINE Collection Time: 06/24/24 5:40 AM Result Value Ref Range OSMOLALITY (U) 925 50 - 1,200 MOSM/KG X-Ray No results found. Radiology Results (Last 30 days) 06/23/242131 XR CHEST PORTABLE Final result Impression: IMPRESSION: Mild central peribronchial cuffing, compatible with bronchitis versus reactive airway disease. Referred By: Interpreted By: Yusuf Ashby MD, 06/23/2024 9:48 PM 06/23/241919 CT ORBITS W CON Final result Impression: IMPRESSION: 1. Large area of abnormal periorbital soft tissue. 2. Asymmetric conjunctival enhancement on the right side. Potential anterior scleral enhancement on the right side. Referred By: Interpreted By: Flynn Flores MD, 06/23/2024 7:27 PM 06/09/242315 MRA HEAD WO CON Final result Impression: IMPRESSION: 1.No evidence of acute intracranial findings [...] Agnieszka Castro MD on 06/10/2024 10:52 AM 06/09/246 MRI FACIAL WWO CON Final result Impression: IMPRESSION: 1.No evidence of acute intracranial findings [...] Agnieszka Castro MD on 06/10/2024 10:52 AM 06/09/24 2316 MRA HEAD WWO CON Final result Impression: IMPRESSION: 1.No evidence of acute intracranial findings [...] Agnieszka Castro MD on 06/10/2024 10:52 AM 06/09/24 2315 MRI BRAIN WWO CON Final result Impression: IMPRESSION: 1.No evidence of acute intracranial findings [...] Agnieszka Castro MD on 06/10/2024 10:52 AM 06/09/241933 XR CHEST PA+LAT Final result Assessment/Plan: Periorbital cellulitis . Periorbital cellulitis-Right side NO sepsis at this time Medical Floor Leukocytosis=11.10 Blood Cultures x 2 Lactate WNL=1.2 Hx of MRSA IV Vancomycin, IV Ceftriaxone Pharmacy to dose Vancomycin CT Orbits as above Pt has chronic poor vision at baseline; obtain visual acuity if able 06/24 Consult ID Poor vision bilaterally Hx of Grade III disc edema OS , White cataract OD Followed by quantitative researcher/ Retina specialist scheduled to see Neuro quantitative researcher Type 1 diabetes mellitus With hyperglycemia-NO DKA Serum [id number]=992 upon arrival Pt reports she took off her insulin pump earlier today Ok to restart home insulin pump after it is verified per hospital pharmacy protocol accu checks achs Hypoglycemic protocol A1c Hyponatremia Na+=123; corrected for ibikohbdtfkmk=576 Serum osmolality, urine osmolality, urine sodium ordered Continue to monitor Hypothyroidism Continue levothyroxine Stable co morbidities contributing to high complexity of care Raynauds, anemia, cataract Labs and test reviewed Discussed plan with Pt., RN, CM Consults include: ID PDMP Reviewed VTE: SCD's CODE STATUS: Full Code Surrogate decision-maker: Discharge Plan: Consult ID Maliha Gonzalez NP 06/24/2024 9:42 AM Primary care physician: JENNIFER RAMIREZ MD Extended Emergency Contact Information Primary Emergency Contact: Robin Watkins Mobile Relation: Mother Preferred language: Montenegrin Documentation Analyst needed? No Cosigned by Toni Navarrete MD at 06/27/2024 6:27 AM MONEY MARKET CLERK Y MARKET CLERK Y MARKET CLERK * Facundo Villasenor, GerardoD, [facility] - 06/24/2024 8:15 AM CST Vancomycin Pharmacy to Dose Day #2 Ordering Provider: Estrella Taveras/hospitalists Indication: SSTI AUC goal: 400 - 600 Ht/Wt: 160 cm, 57.2 kg Individualized trough goal: 11.5 - 15.5 mcg/mL Date WBC SCr CrCl Tmax Level 06/23 11.10 0.96 64 98.2 06/24 9.1 0.56 109.4 98.7 4.4 Other Antibiotics: - Ceftriaxone Cultures/Tests: - Blood (06/23): pending - CT orbits w/contrast (06/23): 1. Large area of abnormal periorbital soft tissue. 2. Asymmetric conjunctival enhancement on the right side. Potential anterior scleral enhancement onthe right side. Kinetics Assessment: 06/24 Regimen: 1500 mg IV every 12 hours. Start time: 13:00 on 06/24/2024 Exposure target: AUC24 (range)400-600 mg/L.hr AUC24,ss: 475 mg/L.hr Probability of AUC24 > 400: 84 % Ctrough,ss: 9 mg/L Probability of Ctrough,ss > 20: 1 % Probability of nephrotoxicity (Lodise OCHOA 2008): 5 % A/P: Pharmacy was consulted to dose vancomycin for this patient's cellulitis by Estrella Taveras/paco service. Patient presents with right orbital swelling and erythema. Vancomycin was initiated with a 1250 mg loading dose. WBC count has improved this morning, and renal function has drastically improved. The vancomycin level resulted at 4.4 which would correlate to an AUC of 240, below goal. Will increase vancomycin to 1500mg every 12 hours. A follow up level is not ordered at this time. Y MARKET CLERK * Annabelle Arellano PharmD - 06/23/2024 8:30 PM CST Vancomycin Pharmacy to Dose Day #1 Ordering Provider: Estrella Taveras/dieudonne Indication: SSTI Ht/Wt: 160 cm, 57.2 kg Initial drug level ordered: 06/24 with AM labs AUC goal: 400 - 600 Individualized trough goal: 11.5 - 15.5 mcg/mL Date WBC SCr CrCl Tmax Level 06/23 11.10 0.96 64 98.2 Other Antibiotics: - Ceftriaxone Cultures/Tests: - Blood (06/23): pending - CT orbits w/contrast (06/23): 1. Large area of abnormal periorbital soft tissue. 2. Asymmetric conjunctival enhancement on the right side. Potential anterior scleral enhancement onthe right side. Kinetics Assessment: Loading dose: N/A Regimen: 750 mg IV every 12 hours. Start time: 07:30 on 06/24/2024 Exposure target: AUC24 (range)400-600 mg/L.hr AUC24,ss: 486 mg/L.hr Probability of AUC24 > 400: 78 % Ctrough,ss: 13.5 mg/L Probability of Ctrough,ss > 20: 11 % Probability of nephrotoxicity (Lodise OCHOA 2008): 9 % A/P: Pharmacy was consulted to dose vancomycin for this patient's cellulitis by Estrella Taveras/hospitalist service. Patient presents with right orbital swelling and erythema. Vancomycin was initiated with a 1250 mg loading dose followed by 750 mg q12h based on the patient's age, weight, and renal function. Initial level is scheduled with AM labs on 06/24. Pharmacy will continue to follow and adjust accordingly. Thank you for the consult. Y MARKET CLERK documented in this encounter H&P Notes * Estrella Taveras APRN - 06/23/2024 8:22 PM CST ATTENDING: ESTRELLA TAVERAS APRN PRIMARY CARE PROVIDER: JENNIFER RAMIREZ MD CC: swelling around right eye HPI: Patient seen and evaluated by this provider. History obtained via chart review, discussion with patient, and review of outside records from Care Everywhere. 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 Pt presents to ER at the instruction of her quantitative researcher fter developing erythema and swelling surrounding her right eye. Upon my assessment, pt is A/O x 3. Pt states when she went to bed last night she had no swelling orerythema present. However, upon awakening this morning there was right orbital swelling and erythema. She denies any known trauma; however she admits to picking at a scab located beneath her right eye. Reports hx of MRSA. Pt has significant ocular problem to bilateral eyes at baseline. Hx of Grade III disc edema OS , White cataract OD with poor vision bilaterally. 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 She is managed per quantitative researcher/Retina specialist and scheduled to see Neuro quantitative researcher next week. She reports the vision out of her right eye is atbaseline. No acute or worsening deficits. No drainage. Denies chills, rigors. States her temp > 100.4 F at home after taking hot shower; however normalized without antipyretics after cooling off. Denies headaches, dizziness, focal weakness, numbness/tingling, increased confusion, difficulty with speech and gait abnormality. She reports chronic dentition with broken tooth on upper right side. Pt reports she has been eating and drinking without difficulty. Denies abdominal pain, n/v/d, melena, hemtochezia and hematemesis. She has been urinating without difficulty; Denies dysuria, hematuria. She took of her insulin pump earlier today in anticipation of coming to ER. She was unsure if she would be allowed to utilize her home pump. She denies acute illness, cough, known ill contacts. She reports dyspnea on exertion at baseline. Pt denies CP, diaphoresis, palpitations, orthopnea, presyncopal or syncopal episiodes. Pt will be admitted for further evaluation and treatment. I anticipate she will require greater than a 2 midnight stay. Past Medical History: Diagnosis Date Anemia Cataract Diabetes mellitus ([facility]) Disease of thyroid gland Raynaud's syndrome without [...] file Intimate Partner Violence: Not At Risk (04/07/2024) [...] Start Date End Date Taking? Authorizing Provider HUMALOG 100 UNIT/ML injection (VIAL) Inject 0-80 Units into the skin see administration instructions. Basal: 0.9 units/hr continuous Bolus (max of 30 units/bolus): - CHO ratio: 1 unit: 15 g CHO - Sensitivity Factor: 1 units: 55 mg/dL over target - Target BG = 150 mg/dL Programmed duration of action: 5 hours. 11/29/23 Yes Default History Genericprovider levothyroxine (SYNTHROID) 100 MCG tablet Take 1 tablet (100 mcg total) by mouth every morning. Yes Default History Genericprovider Continuous Glucose Sensor (DEXCOM G[facility] SENSOR[facility] Default History Genericprovider Continuous Glucose Transmitter (DEXCOM G6 TRANSMITTER) Misc 01/07/24 Default History Genericprovider Insulin Disposable Pump (OMNIPOD 5 G6 PODS, GEN 5,) Misc USE AND CHANGE EVERY 48 HOURS 08/23/23 Default History Genericprovider I have reviewed current outpatient medications and reconciled them for inpatient admission. Appropriate medications to be continued. Inappropriate medications to be held for now. No Known Allergies ROS: A 10 point review of systems was taken and pertinent positives and negatives as per HPI. All othersnegative save as noted in HPI. PHYSICAL EXAM: Intake/Output Summary (Last 24 hours) at 06/23/20242021 Last data filed at 06/23/20241932 Gross per 24 hour Intake 50 ml Output -- Net 50 ml Patient Vitals for the past 24 hrs: BP Temp Temp src Pulse Resp SpO2 Height Weight 06/23/241999 (!) 136/99 -- -- -- -- 100 % -- -- 06/23/241929 (!) 148/99 -- -- -- -- 99 % -- -- 06/23/241914 -- -- -- -- -- (!) 87 % -- -- 06/23/24 190 (!) 126/94 -- -- -- -- 98 % -- -- 06/23/24 1830 (!) 145/105 -- -- 96 18 98 % -- -- 06/23/241824 -- -- -- -- -- 100 % -- -- 06/23/24 182 -- -- -- -- -- (!) 88 % -- -- 06/23/24 181 -- -- -- -- -- 91 % -- -- 06/23/24 1749 (!) 128/108 98.2 ??F (36.8 ??C) Temporal 76 20 100 % 1.6 m (5' 3 ) 57.2 kg (126 lb) Intake/Output :[id number]@ Constitutional: Well developed, Well nourished, No acute distress, Non-toxic appearance. HENT: Normocephalic, Oropharynx moist Eyes: PERRL, swelling and erythema surrounding right orbit; pt able to open her eye. Vision is at baseline per pt Neck- Normal range of motion, No tenderness, Supple, No stridor. Respiratory: Bilaterally clear to auscultation with no rales, rhonchi, or wheezes. No accessory muscle use. Cardiovascular: S1, S2 present, regular rate and rhythm. Bilateral radial and dorsalis pedis pulses+2. No pedal edema. GI: Bowel sounds normal, Soft, No tenderness or guarding, Musculoskeletal: Intact distal pulses, No major deformities noted. Integument: Warm, Dry, No erythema, No rash. Neurologic: Alert & oriented x 3, No focal deficits noted. Psychiatric: Affect normal, Judgment normal, Mood normal Labs: Recent Labs Lab 06/23/24 1751 WBC 11.10* RBC 4.67 HGB 13.0 HCT 39.3 MCV 84.2 MCH 27.8 MCHC 33.1 PLT 400 RDW 13.9 MPV 10.0 PERNEU 84.3 PERLYM 9.6 PERMON 4.6 NEUC 9.36* LYMC 1.07 MONOC 0.51 EOSC 0.04 BASOC 0.05 DTYPE AUTOMATED DIFFERENTIAL Recent Labs Lab 06/23/24 1751 NA 123* K 4.4 CL 89* CO2 25.4 AGAP 8.6 BUN 15 CR 0.96 BUNCREATININ 15.5 GLU 750* CA 9.6 TP 8.5* ALB 3.7 TBIL 0.8 ALKP 181* AST 28 ALT 23 No results for input(s): CHOL , TRI , HDL , LDL , HGBA1C , TSH in the last 168 hours. No results for input(s): APTT , INR , PTT in the last 168 hours. No results for input(s): TROP , TROPIWB , CKMB , CPK in the last 168 hours. Recent Labs Lab 06/23/24 1751 LACTICACID 1.2 PROCT 0.12 No results for input(s): PH , PCO2 , PO2 , [id number] , BICARBWB , BASEDEFICIT , BASEEXCESS in the last 168 hours. No results found for this or any previous visit. Diagnostic Review CT ORBITS W CON Result Date: 06/23/[address] [address] EXAM: CT ORBITS W CON DATE: 06/23/2024 [...] are clear. No bone destruction. The orbital xlodk-oc-emdkygne not include the oral cavity. This could [...] By: Flynn Flores MD, 06/23/2024 7:27 PM ASSESSMENT AND PLAN: Periorbital cellulitis-Right side NO sepsis at this time Medical Floor Leukocytosis=11.10 Blood Cultures x 2 Lactate WNL=1.2 Hx of MRSA IV Vancomycin, IV Ceftriaxone Pharmacy to dose Vancomycin CT Orbits as above Pt has chronic poor vision at baseline; obtain visual acuity if able Poor vision bilaterally Hx of Grade III disc edema OS , White cataract OD Followed by quantitative researcher/ Retina specialist scheduled to see Neuro quantitative researcher Type 1 diabetes mellitus With hyperglycemia-NO DKA Serum cyarakf=982 upon arrival Pt reports she took off her insulin pump earlier today Ok to restart home insulin pump after it is verified per hospital pharmacy protocol accu checks achs Hypoglycemic protocol A1c Hyponatremia Na+=123; corrected for rptkspoxqjmzc=027 Serum osmolality, urine osmolality, urine sodium ordered Continue to monitor Hypothyroidism Continue levothyroxine Stable co morbidities contributing to high complexity of care Raynauds, anemia, cataract - DVT prophylaxis: SCDs for now - Diet/IVF: ADA - Code status:FULL CODE - Disposition: Medical Inpatient The above plan of care was discussed with the patient in detail. An opportunity was provided for the patient/MPoA to ask questions regarding the hospital stay and plan of care. All questions were answered. The patient/MPoA understands and agrees. The patient was informed to ask the RN to contact meif any further questions or concerns. I have seen and examined the patient independently and anticipate patient will require > 2 midnights. This note was dictated with the use of [employer] dictation software and was proofread to the best of my ability. If you have questions or find errors, please contact me via [employer]. Thank you. ESTRELLA TAVERAS APRN 06/23/2024 8:22 PM Cosigned by Michele Noel MD at 06/25/2024 11:02 PM MONEY MARKET CLERK Y MARKET CLERK Y MARKET CLERK Associated attestation - Michele Noel MD - 06/25/2024 11:02 PM MONEY MARKET CLERK Patient was seen and examined on bedside Agree with MANAGER OF [facility] History, exam and plan Filed Vitals: 06/25/24 0032 06/25/24 0501 06/25/24 0839 06/25/24 1111 BP: 108/80 121/88 117/85 (!) 121/96 Pulse: 75 (!) 101 88 89 Resp: 20 15 15 Temp: 97.9 ??F (36.6 ??C) 98.1 ??F (36.7 ??C) 98.2 ??F (36.8 ??C) 98.6 ??F (37 ??C) TempSrc: Oral Oral Oral SpO2: 100% 100% 100% Weight: Height: Mouth: Moist Eyes: I periorbital swelling, unable open Neck: range of motion is intact, no masses, thyroid not enlarged, no adenopathy Chest: no tenderness Lungs: breath sounds normal and symmetric; no rales or wheezes Heart: regular rhythm, normal S1 and S2, without murmurs, gallops or rubs Abdomen: soft without mass, non-tender, with normal bowel sounds Extremities: Good pulses bilateral, no edema or tenderness. SKIN: Warm and dry Patient with acute onset of right periorbital swelling IV antibiotics monitor clinically documented in this encounter Consult Notes * Estiven Kuhn MD - 06/24/2024 3:20 PM CST Patient was seen today utilizing telemedicine services. Patient Location: [facility] [place] [facility] [address] [facility] [address] Dept: [phone] Provider Location: [facility], [place], [place] Caregivers in attendance: RN Time spent with patient: 25ID Consult this is a tele medicine consult from a telemedicine office and patient consented himself/herself/primary attending took the consent. Requesting Provider: Maliha Gonzalez NP Madeleine Mendoza is an 39-year-old female with hx of DM- type1, hypothyroidism, Raynauds, cataract with poor vision bilaterally (Under care by Retina specialist;Neuro quantitative researcher) who was admitted 06/23 per her quantitative researcher's recommendation due to periorbital cellulitis. On arrival pt was afebrile, with wbc 11K, and hyperglycemia- glucose 764. Her orbital CT showed periorbital soft tissue swelling, and R sided, asymmetric conjunctival enhancement..Potential anterior scleral enhancement . Symptoms rapidly increased the morning of presentation. She noted, right orbital swelling and erythema when woke up in the am. No trauma, but she had a scab below R eye that she picked on. She had MRSAR axillary abscess in Sep. She has Grade III disc edema OS , White cataract of the R eye with poor vision bilaterally per chart. No changes in her baseline vision on the R. Denies pain, but some pressure due to swelling. No drainage, itching. She is able to move her eyes/globes. No fevers, chills. No resp, GI or issues. No recent resp, sinus infections, or issues. No headaches. She does reportchronic dental issues of the R upper side but has been stable for a year now. She noted a little pimple on the lateral corner of her R eye a couple of days ago, and was picking on it. She has a chronic dry scab/scar in the bridge of her nose after bumping to a door a while ago, but the area has been stable. Blood cx IP. She is on Vanc and CTX. The swelling and redness has improved today. No otherwounds. Assessment: # Periorbital cellulitis- R side CT showing soft tissue swelling and R sided anterior scleral enhancement- On baseline of advanced cataracts and near blindness - Able to move the globes. No change in baseline vision. No active drainage No fevers, and wbc normal now Blood cx in progress Hx of MRSA Has been seen by quantitative researcher prior to admission # L axillary MRSA infection- in 04/2024 # Hyperglycemia # Type-1 DM - not optimally controlled at this time Recommendations: Continue current abx and monitor clinical response. Already improving. The main offensive is more than likely MRSA given the rapid progression (and/or Strep, ie GAS, GCS, etc.) If blood culture remains neg by tomorrow (24-48hrs) and she is clinically improving, can stop IV abx and start Linezolid 600 bid x 10 days. Close follow up with quantitative researcher, and examination. Extend abx as needed (no more than 14 days of linezolid for risk of BM suppression. If further abx needed, consider Doxycycline at that point) Glucose control Discussed above with patient and RN at bedside. Past Medical & Surgical History: Past Medical History: Diagnosis Date Anemia Cataract Diabetes mellitus ([facility]) Disease of thyroid gland Raynaud's syndrome without gangrene Past Surgical History: Procedure Laterality Date EYE SURGERY Left lens replacement TUBAL LIGATION Allergies: No Known Allergies Social History: Social History Tobacco Use Smoking status: Some Days Current packs/day: 0.50 Average packs/day: 0.5 packs/day for 15.0 years (7.5 ttl pk-yrs) Types: Cigarettes Smokeless tobacco: Current Substance Use Topics Alcohol use: Not Currently Family History: Family History Problem Relation Name Age of Onset Stroke Father Caleb Diabetes Father Caleb Hypertension Father Caleb Diabetes Sister Elke ALS Maternal Grandfather Medications Prior to Admission: No current facility-administered medications on file prior to encounter. Current Outpatient Medications on File Prior to Encounter Medication Sig HUMALOG 100 UNIT/ML injection (VIAL) Inject 0-80 Units into the skin see administration instructions. Basal: 0.9 units/hr continuous Bolus (max of 30 units/bolus): - CHO ratio: 1 unit: 15 g CHO - Sensitivity Factor: 1 units: 55 mg/dL over target - Target BG = 150 mg/dL Programmed duration of action: 5 hours. levothyroxine (SYNTHROID) 100 MCG tablet Take 1 tablet (100 mcg total) by mouth every morning. Continuous Glucose Sensor (DEXCOM G6 SENSOR) Misc Continuous Glucose Transmitter (DEXCOM G6 TRANSMITTER) Misc Insulin Disposable Pump (OMNIPOD 5 G6 PODS, GEN 5,) Misc USE AND CHANGE EVERY 48 HOURS Problem List: Principal Problem: Periorbital cellulitis SNOMED CT(R): CELLULITIS OF PERIORBITAL REGION REVIEW OF SYMPTOMS As per HPI, otherwise negative Filed Vitals: 06/23/24 2157 06/24/24 0515 06/24/24 0714 06/24/24 1107 BP: 105/62 125/88 102/67 101/71 Pulse: 96 94 89 85 Resp: 20 Temp: 98.7 ??F (37.1 ??C) 97.4 ??F (36.3 ??C) 97.8 ??F (36.6 ??C) 98.9 ??F (37.2 ??C) TempSrc: Oral Oral Oral Oral SpO2: 99% 99% 98% Weight: Height: Pt seen and examined with the assistance of RN at bedside via telehealth interface PHYSICAL EXAM GEN: NAD, alert and oriented middle aged female, laying in bed HEENT: NCAT, EOMI. R eye lid with improving erythema, swelling in comparison to photo from yesterday. No active drainage noted. Able to open eye. Small scab in R -lateral corner of the eye. Chest: on RA, symmetric air entry CV: RRR Abd: Soft, ND Ext: No edema Skin: No rash- chronic dry skin over bridge of nose, with tiny dry scab- no infection noted Psyche: normal affect Neuro: non focal Labs: CBC: Recent Labs Lab 06/24/24 0530 WBC 9.06 RBC 4.06* HGB 11.3* HCT 34.2* MCV 84.2 MCH 27.8 MCHC 33.0 PLT 339 RDW 14.1 MPV 9.8 PERNEU 72.0 PERLYM 17.7 PERMON 7.2 NEUC 6.53 LYMC 1.60 MONOC 0.65 EOSC 0.18 BASOC 0.06 DTYPE AUTOMATED DIFFERENTIAL CMP: SODIUM S/P/B Date Value Ref Range Status 06/24/2024 135 (L) 136 - 145 MMOL/L Final POTASSIUM S/P/B Date Value Ref Range Status 06/24/2024 3.6 3.5 - 5.1 MMOL/L Final CHLORIDE S/P/B Date Value Ref Range Status 06/24/2024 106 97 - 115 MMOL/L Final CO2 Date Value Ref Range Status 06/24/2024 26.6 21 - 32 MMOL/L Final ANION GAP Date Value Ref Range Status 06/24/2024 2.4 2 - 10 MMOL/L Final BUN Date Value Ref Range Status 06/24/2024 14 7 - 18 MG/DL Final CREATININE S/P/B Date Value Ref Range Status 06/24/2024 0.56 0.55 - 1.02 MG/DL Final BUN CREATININE RATIO Date Value Ref Range Status 06/24/2024 24.9 6 - 26 Final GLUCOSE Date Value Ref Range Status 06/24/2024 312 (H) 70 - 99 MG/DL Final CALCIUM S/P/B Date Value Ref Range Status 06/24/2024 8.3 (L) 8.5 - 10.1 MG/DL Final TOTAL PROTEIN S/P/B Date Value Ref Range Status 06/24/2024 6.4 6.4 - 8.2 G/DL Final ALBUMIN S/P/B Date Value Ref Range Status 06/24/2024 2.6 (L) 3.4 - 5.0 G/DL Final BILIRUBIN TOTAL S/P/B Date Value Ref Range Status 06/24/2024 0.4 0.2 - 1.2 MG/DL Final Comment: THIS ASSAY IS NOT RECOMMENDED FOR PATIENTS UNDERGOING TREATMENT WITH ELTROMBOPAG DUE TO THE POTENTIAL FOR FALSELY ELEVATED RESULTS. ALKALINE PHOSPHATASE S/P/B Date Value Ref Range Status 06/24/2024 126 50 - 136 U/L Final AST Date Value Ref Range Status 06/24/2024 20 15 - 37 U/L Final ALT Date Value Ref Range Status 06/24/2024 15 14 - 55 U/L Final ESTIVEN KUHN MD 06/24/2024 sdf Y MARKET CLERK documented in this encounter Nursing Notes * Rhonda Robertson RN - 06/25/2024 11:26 AM CST Pt is being discharged to her mother. Y MARKET CLERK * Rhonda Robertson RN - 06/25/2024 10:24 AM CST Insulin pump was restarted yesterday. Y MARKET CLERK documented in this encounter ED Notes * Radha Ken RN - 06/23/2024 6:[address] Reed, obtain blood culture at this time. Y MARKET CLERK * Sim Reed MD - 06/23/2024 5:59 PM CST Images from the original note were not included. Emergency Department Note Chief Complaint Patient presents with Eye Problem Madeleine Mendoza is a 39-year-old female presents to the ED from home for evaluation of right eye swelling. Patient reports she went to bed normal but woke up this morning with right orbital swelling and erythema. No known injury/trauma. No vision changes. No discharge. Patient reports informing Dr. Mayur eng, her quantitative researcher at [employer], who advised her to come to ED. Patient has significant ocular problems including left eye cataract surgery with lens replacement January 2024. She has apt on Tuesday 06/26 to have the same procedure done on her right eye. 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 Pt has hx of T1DM and is currently using a dexcom insulin pump that allows for Q4 hour bolus to help lower blood sugars. However, patient states she wasn't wearing it on arrival because it 2 hours ago. Hx obtained by pt MEDICATIONS: Prior to Admission medications Medication Sig Start Date End Date Taking? Authorizing Provider HUMALOG 100 UNIT/ML injection (VIAL) Inject 0-80 Units into the skin see administration instructions. Basal: 0.9 units/hr continuous Bolus (max of 30 units/bolus): - CHO ratio: 1 unit: 15 g CHO - Sensitivity Factor: 1 units: 55 mg/dL over target - Target BG = 150 mg/dL Programmed duration of action: 5 hours. 11/29/23 Yes Default History Genericprovider levothyroxine (SYNTHROID) 100 MCG tablet Take 1 tablet (100 mcg total) by mouth every morning. Yes Default History Genericprovider Continuous Glucose Sensor (DEXCOM G6 SENSOR) Misc 12/03/23 Default History Genericprovider Continuous Glucose Transmitter (DEXCOM G6 TRANSMITTER) Misc 01/07/24 Default History Genericprovider Insulin Disposable Pump (OMNIPOD 5 G6 PODS, GEN 5,) Misc USE AND CHANGE EVERY 48 HOURS 08/23/23 Default History Genericprovider PAST MEDICAL HISTORY: Past Medical History: Diagnosis Date Anemia Cataract Diabetes mellitus (CMS/HCC HHS/HCC) Disease of thyroid gland Raynaud's syndrome without gangrene PAST SURGICAL HISTORY: Past Surgical History: Procedure Laterality Date EYE SURGERY Left lens replacement TUBAL LIGATION Vital 24 Hour Range Most Recent Value Temperature Temp Min: 98.2 ??F (36.8 ??C) Max: 98.2 ??F (36.8 ??C) 98.2 ??F (36.8 ??C) Pulse Pulse Min: 76 Max: 96 96 Respiratory Resp Min: 18 Max: 20 18 Blood Pressure BP Min: 126/94 Max: 148/99 (!) 136/99 Pulse Oximetry SpO2 Min: 87 % Max: 100 % 100 % O2 No data recorded Constitutional: Well developed, Well nourished, No acute distress, Non-toxic appearance. HEENT: Normocephalic, Atraumatic, Bilateral external ears normal, EOMI and no pain with this. No pain with palpation of the eye., Swelling and erythema to right orbit - see picture No discharge. Oropharynx moist, Nose normal. Respiratory: Normal breath sounds, No respiratory distress. Cardiovascular: Normal heart rate, Normal rhythm GI: Soft, No tenderness Neck/back: Normal range of motion, No tenderness, No stridor Extremities: Intact distal pulses, No edema, No tenderness, Good range of motion in all major joints. Skin: Warm, Dry, No erythema, No rash. Neurologic: Alert & oriented x 3, Normal motor function, Normal sensory function, No focal deficits noted. Psychiatric: Affect normal, Judgment normal, Mood normal. Medical Decision Making/ ED course: Problem list: Right eye swelling, elevated blood sugar Differentials: Orbital cellulitis versus periorbital cellulitis, hyperglycemia, DKA, other Labs: Results for orders placed or performed during the hospital encounter of 06/23/24 CBC W/DIFF AUTOMATED Result Value Ref Range WBC 11.10 (H) 4.5 - 11.0 x10'3/uL RBC 4.67 4.20 - 5.40 x10'6/uL HGB 13.0 12.0 - 16.0 G/DL HCT 39.3 38.0 - 48.0 % MCV 84.2 81.0 - 99.0 FL MCH 27.8 27.0 - 31.0 PG MCHC 33.1 32.0 - 36.0 G/DL RDW 13.9 11.5 - 14.5 % PLT 400 130 - 400 x10'3/uL MPV 10.0 9.3 - 12.2 FL NEUTROPHILS % 84.3 % LYMPHOCYTES % 9.6 % MONOCYTES % 4.6 % EOSINOPHILS 0.4 % BASOPHILS 0.5 % IMMATURE GRANS % 0.6 % DIFFERENTIAL TYPE AUTOMATED DIFFERENTIAL ABS. NEUTROPHILS 9.36 (H) 1.80 - 7.70 x10'3/uL ABS. LYMPHOCYTES 1.07 1.00 - 4.80 x10'3/uL ABS. MONOCYTES 0.51 0.24 - 0.86 x10'3/uL ABS. EOSINOPHILS 0.04 0.04 - 0.36 x10'3/uL ABS. BASOPHILS 0.05 0.01 - 0.08 x10'3/uL ABS. IMMATURE GRANULOCYTES 0.07 0.00 - 0.49 x10'3/uL COMPREHENSIVE METABOLIC PANEL Result Value Ref Range GLUCOSE 750 (HH) 70 - 99 MG/DL BUN 15 7 - 18 MG/DL CREATININE S/P/B 0.96 0.55 - 1.02 MG/DL SODIUM S/P/B 123 (L) 136 - 145 MMOL/L POTASSIUM S/P/B 4.4 3.5 - 5.1 MMOL/L CHLORIDE S/P/B 89 (L) 97 - 115 MMOL/L CO2 25.4 21 - 32 MMOL/L CALCIUM S/P/B 9.6 8.5 - 10.1 MG/DL BILIRUBIN TOTAL S/P/B 0.8 0.2 - 1.2 MG/DL TOTAL PROTEIN S/P/B 8.5 (H) 6.4 - 8.2 G/DL ALBUMIN S/P/B 3.7 3.4 - 5.0 G/DL AST 28 15 - 37 U/L ALT 23 14 - 55 U/L ALKALINE PHOSPHATASE S/P/B 181 (H) 50 - 136 U/L ANION GAP 8.6 2 - 10 MMOL/L BUN CREATININE RATIO 15.5 6 - 26 A/G RATIO 0.8 (L) 1.0 - 2.0 RATIO GFR ESTIMATE 76 (L) >90 ML/MIN/1.73 M2 LACTIC ACID W REFLEX (SEPSIS) Result Value Ref Range LACTIC ACID VENOUS 1.2 0.4 - 2.0 MMOL/L SED RATE, ERYTHROCYTE (ESR) Result Value Ref Range ESR 7 <20 MM/HR C-REACTIVE PROTEIN, HIGH SENSI Result Value Ref Range HS-CRP 3.85 (H) <0.3 mg/dL PROCALCITONIN (PCT) Result Value Ref Range Procalcitonin 0.12 0.00 - 0.49 NG/ML Imaging: CT ORBITS W CON Result Date: 06/23/2024 IMPRESSION: 1. Large area of abnormal periorbital soft tissue. 2. Asymmetric conjunctival enhancement on the right side. Potential anterior scleral enhancement on the right side. Referred By: Interpreted By: Flynn Flores MD, 06/23/2024 7:27 PM My independent interpretation of labs/imaging: White count 11. Hemoglobin 13. Lactate 1.2. ESR 7. CRP 3.85. Procalcitonin normal. Labs with significantly elevated blood sugar. No signs of DKA. Imaging with periorbital cellulitis. No orbital cellulitis seen My independent interpretation of pulse ox: Normal Consults: no emergent consult indicated Communication: I discussed the workup as well as plan of care when possible. I discussed medications as well as other therapies as needed. Patient started on antibiotics. Patient given IV bolus of insulin. Will have patient start her insulin pump. Hospitalist agreed to admit. Medications vancomycin (VANCOCIN) 1,250 mg in sodium chloride 0.9 % 250 mL IVPB (1,250 mg Intravenous New Bag 06/23/241933) glucose oral gel 32-64 mL (has no administration in time range) dextrose 10 % bolus infusion 125-250 mL (has no administration in time range) glucagon injection 1 mg (has no administration in time range) vancomycin pharmacy to dose placeholder (has no administration in time range) cefTRIAXone (ROCEPHIN) 2 g in sodium chloride 0.9 % 50 mL IVPB (has no administration in time range) cefTRIAXone (ROCEPHIN) 2 g in sodium chloride 0.9 % 50 mL IVPB (0 g Intravenous Infusion Stop Time 06/23/241932) iopamidol (ISOVUE-370) 76 % injection 100 mL (100 mLs Intravenous Given 06/23/241920) insulin regular (NOVOLIN R/HUMULIN R) injection 10 Units (10 Units Intravenous Given 06/23/242006) ketorolac (TORADOL) injection 15 mg (15 mg Intravenous Given 06/23/242006) Clinical Impression 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 Please excuse any grammatical or spelling errors as this chart was likely documented using a dictation software. IMichelle, acting as a scribe, am personally taking down the notes in the presence of Dr. Sim Reed,*. Take no action on this note until reviewed and authenticated by the physician. Sim Reed MD 06/23/24 2017 Y MARKET CLERK * David Connelly, SHAWN - 06/23/2024 5:56 PM CST [place], [place] EMERGENCY DEPARTMENT ENCOUNTER Medical Screening Examination 06/23/24 5:56 PM Chief Complaint : Eye Problem HPI : Madeleine Mendoza is a 39-year-old female who presents with complaints of an eye issue. Patient states that she woke up this morning and noted significant right sided orbital swelling and redness. States that she has significant ocular issues. Denies acute trauma. Vital Signs: Filed Vitals: 06/23/24 1749 BP: (!) 128/108 Pulse: 76 Resp: 20 Temp: 98.2 ??F (36.8 ??C) TempSrc: Temporal SpO2: 100% Weight: 57.2 kg (126 lb) Height: 1.6 m (5' 3 ) Physical exam: A brief physical exam was completed to facilitate/expedite patient care. Plan: Necessary labs/imaging/medications ordered to initiate pt care. 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 Eye doctor sent her may be cellulitis. Y MARKET CLERK documented in this encounter Plan of Treatment Not on file documented as of this encounter Goals Goal Patient Goal Type Associated Problems Recent Progress Patient-Stated? 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 RN documented as of this encounter Procedures Procedure Name Priority Date/Time Associated Diagnosis Comments COMPREHENSIVE METABOLIC PANEL Routine 06/25/2024 8:20 AM MONEY MARKET CLERK CBC W/DIFF AUTOMATED Routine 06/25/2024 8:20 AM MONEY MARKET CLERK POCT GLUCOSE - HAMILTON DOCKED DEVICE Routine 06/24/2024 3:41 PM MONEY MARKET CLERK POCT GLUCOSE - HAMILTON DOCKED DEVICE Routine 06/24/2024 11:16 AM MONEY MARKET CLERK POCT GLUCOSE - HAMILTON DOCKED DEVICE Routine 06/24/2024 7:55 AM MONEY MARKET CLERK SODIUM URINE RANDOM STAT 06/24/2024 5 :40 AM MONEY MARKET CLERK OSMOLALITY, URINE STAT 06/24/2024 5:4 0 AM MONEY MARKET CLERK POCT GLUCOSE - HAMILTON DOCKED DEVICE Routine 06/24/2024 5:38 AM MONEY MARKET CLERK COMPREHENSIVE METABOLIC PANEL Routine 06/24/2024 5:30 AM MONEY MARKET CLERK CBC W/DIFF AUTOMATED Routine 06/24/2024 5:30 AM MONEY MARKET CLERK VANCOMYCIN TIMED 06/24/2024 5:30 AM MONEY MARKET CLERK POCT GLUCOSE - HAMILTON DOCKED DEVICE Routine 06/23/2024 11:43 PM MONEY MARKET CLERK POCT GLUCOSE - HAMILTON DOCKED DEVICE Routine 06/23/2024 10:28 PM MONEY MARKET CLERK XR CHEST PORTABLE STAT 06/23/2024 9:3 2 PM MONEY MARKET CLERK PRO-BRAIN NATRIURETIC PEPTIDE Routine 06/23/2024 9:32 PM MONEY MARKET CLERK OSMOLALITY, BLOOD Routine 06/23/2024 9:3 2 PM MONEY MARKET CLERK POCT GLUCOSE - HAMILTON DOCKED DEVICE Routine 06/23/2024 9:05 PM MONEY MARKET CLERK CT ORBITS W CON STAT 06/23/2024 7:20 PM MONEY MARKET CLERK CULTURE, BACTERIA, BLOOD STAT 06/23/2024 6:37 PM MONEY MARKET CLERK LACTIC ACID W REFLEX (SEPSIS) STAT 06/23/2024 5:51 PM MONEY MARKET CLERK PROCALCITONIN (PCT) STAT 06/23/2024 5 :51 PM MONEY MARKET CLERK SED RATE, ERYTHROCYTE (ESR) STAT 06/23/2024 5:51 PM MONEY MARKET CLERK COMPREHENSIVE METABOLIC PANEL STAT 06/23/2024 5:51 PM MONEY MARKET CLERK C-REACTIVE PROTEIN, HIGH SENSI STAT 06/23/2024 5:51 PM MONEY MARKET CLERK CBC W/DIFF AUTOMATED STAT 06/23/2024 5:51 PM MONEY MARKET CLERK documented in this encounter Results * (ABNORMAL) COMPREHENSIVE METABOLIC PANEL (06/25/2024 8:20 AM MONEY MARKET CLERK) GLUCOSE 318(H) 70 - 99 MG/DL 06/25/2024 8:58 AM MONEY MARKET CLERK [facility] BUN 11 7 - 18 MG/DL 06/25/2024 8:58 AM [facility] CREATININE S/P/B 0.69 0.55 - 1.02 MG/DL 06/25/2024 8:58 AM [facility] SODIUM S/P/B 133(L) 136 - 145 MMOL/L 06/25/2024 8:58 AM [facility] POTASSIUM S/P/B 3.8 3.5 - 5.1 MMOL/L 06/25/2024 8:58 AM [facility] CHLORIDE S/P/B 100 97 - 115 MMOL/L 06/25/2024 8:58 AM [facility] CO2 29.2 21 - 32 MMOL/L 06/25/2024 8:58 AM [facility] CALCIUM S/P/B 8.4(L) 8.5 - 10.1 MG/DL 06/25/2024 8:58 AM [facility] BILIRUBIN TOTAL S/P/B 0.1(L) 0.2 - 1.2 MG/DL 06/25/2024 8:58 AM [facility] Comment: THIS ASSAY IS NOT RECOMMENDED FOR PATIENTS UNDERGOING TREATMENT WITH ELTROMBOPAG DUE TO THE POTENTIAL FOR FALSELY ELEVATED RESULTS. TOTAL PROTEIN S/P/B 7.2 6.4 - 8.2 G/DL 06/25/2024 8:58 AM [facility] ALBUMIN S/P/B 2.8(L) 3.4 - 5.0 G/DL 06/25/2024 8:58 AM [facility] AST 17 15 - 37 U/L 06/25/2024 8:58 AM [facility] ALT 17 14 - 55 U/L 06/25/2024 8:58 AM [facility] ALKALINE PHOSPHATASE S/P/B 134 50 - 136 U/L 06/25/2024 8:58 AM [facility] ANION GAP 3.8 2 - 10 MMOL/L 06/25/2024 8:58 AM [facility] BUN CREATININE RATIO 16.0 6 - 26 06/25/2024 8:58 AM [facility] A/G RATIO 0.6(L) 1.0 - 2.0 RATIO 06/25/2024 8:58 AM [facility] GFR ESTIMATE >90 >90 ML/MIN/1.7 3 M2 06/25/2024 8:58 AM [facility] Comment: NOTE: eGFR is not calculated for patients <18 years of age or gender unknown. This is an estimated GFR calculation using the new CKD EPI creatinine equation without race and so does not require a correction factor for race. This estimated GFR should not be used for calculating drug doses. 06/25/2024 8:20 AM [facility] us Maliha Gonzalez NP LABORATORY Final Resu lt [facility] [address] [place] [address], [place] [phone] * (ABNORMAL) CBC W/DIFF AUTOMATED (06/25/2024 8:20 AM MONEY MARKET CLERK) WBC 9.19 4.5 - 11.0 x10'3/uL 06/25/2024 8:33 AM [facility] RBC 4.18(L) 4.20 - 5.40 x10'6/uL 06/25/2024 8:33 AM [facility] HGB 11.5(L) 12.0 - 16.0 G/DL 06/25/2024 8:33 AM [facility] HCT 35.5(L) 38.0 - 48.0 % 06/25/2024 8:33 AM [facility] MCV 84.9 81.0 - 99.0 FL 06/25/2024 8:33 AM [facility] MCH 27.5 27.0 - 31.0 PG 06/25/2024 8:33 AM [facility] MCHC 32.4 32.0 - 36.0 G/DL 06/25/2024 8:33 AM [facility] RDW 14.0 11.5 - 14.5 % 06/25/2024 8:33 AM [facility] PLT 345 130 - 400 x10'3/uL 06/25/2024 8:33 AM [facility] MPV 9.8 9.3 - 12.2 FL 06/25/2024 8:33 AM [facility] DIFFERENTIAL TYPE AUTOMATED DIFFERENTIAL 06/25/2024 8:33 AM [facility] NEUTROPHILS % 72.5 % 06/25/2024 8:33 AM [facility] LYMPHOCYTES % 18.6 % 06/25/2024 8:33 AM [facility] MONOCYTES % 5.8 % 06/25/2024 8:33 AM [facility] EOSINOPHILS 2.4 % 06/25/2024 8:33 AM [facility] BASOPHILS 0.4 % 06/25/2024 8:33 AM [facility] IMMATURE GRANS % 0.3 % 06/25/20 8:33 AM MONEY MARKET CLERK [facility] ABS. NEUTROPHILS 6.66 1.80 - 7.70 x10'3/uL 06/25/2024 8:33 AM MONEY MARKET CLERK [facility] ABS. LYMPHOCYTES 1.71 1.00 - 4.80 x10'3/uL 06/25/2024 8:33 AM MONEY MARKET CLERK [facility] ABS. MONOCYTES 0.53 0.24 - 0.86 x10'3/uL 06/25/2024 8:33 AM MONEY MARKET CLERK [facility] ABS. EOSINOPHILS 0.22 0.04 - 0.36 x10'3/uL 06/25/2024 8:33 AM MONEY MARKET CLERK [facility] ABS. BASOPHILS 0.04 0.01 - 0.08 x10'3/uL 06/25/2024 8:33 AM [facility] ABS. IMMATURE GRANULOCYTES 0.03 0.00 - 0.49 x10'3/uL 06/25/2024 8:33 AM MONEY MARKET CLERK [facility] 06/25/2024 8:20 AM MONEY MARKET CLERK Maliha Gonzalez NP LABORATORY Final Resu lt [facility] [address] [place] [address], [place] [phone] * (ABNORMAL) POCT glucose (06/24/2024 3:41 PM MONEY MARKET CLERK) [facility] Signature GLUCOSE POC 393(H) 70 - 99 mg/dL 06/24/2024 3:47 PM MONEY MARKET CLERK [facility] 06/24/2024 3:41 PM MONEY MARKET CLERK Maliha L Lisa MANAGER OF ALLIED HEALTH SERVICES POCT ORDERABLES - DEVICE F inal Result Performing Organization Address [facility] Co de Phone Number [facility] [address] [place] [address], [place] [phone] * (ABNORMAL) POCT glucose (06/24/2024 11:16 AM MONEY MARKET CLERK) GLUCOSE POC 337(H) 70 - 99 mg/dL 06/24/2024 1:17 PM MONEY MARKET CLERK [facility] 06/24/2024 11:1 6 AM MONEY MARKET CLERK Maliha Wilfredo Gnozalez MANAGER OF ALLIED HEALTH SERVICES POCT ORDERABLES - DEVICE F inal Result Performing Organization Address [facility] Co de Phone Number [facility] [address] [place] [address], [place] [phone] * (ABNORMAL) POCT glucose (06/24/2024 7:55 AM MONEY MARKET CLERK) GLUCOSE POC 404(HH) 70 - 99 mg/dL 06/24/2024 1:17 PM MONEY MARKET CLERK [facility] 06/24/2024 7:55 AM MONEY MARKET CLERK Maliha Wilfredo Gonzalez MANAGER OF ALLIED HEALTH SERVICES POCT ORDERABLES - DEVICE F inal Result Performing Organization Address [facility] Co de Phone Number [facility] [address] [place] [address], [place] [phone] * SODIUM URINE RANDOM (06/24/2024 5:40 AM MONEY MARKET CLERK) NA RANDOM (U) 19 MMOL/L 06/25/2024 7:50 AM MONEY MARKET CLERK [facility] Comment:REFERENCE RANGE NOT ESTABLISHED URINE SPECIMEN / Unknown 06/24/2024 5:40 AM MONEY MARKET CLERK us Estrella Taveras SENIOR INVESTMENT MANAGER URINE ORDERABLES Final Resu lt Performing Organization Address City/[facility]/ZIP Co de Phone Number [facility] [address] [place] [address], [place] [phone] * OSMOLALITY, URINE (06/24/2024 5:40 AM MONEY MARKET CLERK) OSMOLALITY (U) 925 50 - 1,200 MOSM/KG 06/24/2024 5:59 AM MONEY MARKET CLERK [facility] URINE SPECIMEN / Unknown 06/24/2024 5:40 AM MONEY MARKET CLERK us Estrella Taveras SENIOR INVESTMENT MANAGER URINE ORDERABLES Final Resu lt Performing Organization Address [facility] de Phone Number [facility] [address] [place] [address], [place] [phone] * (ABNORMAL) POCT glucose (06/24/2024 5:38 AM MONEY MARKET CLERK) GLUCOSE POC 315(H) 70 - 99 mg/dL 06/24/2024 5:40 AM MONEY MARKET CLERK [facility] 06/24/2024 5:38 AM MONEY MARKET CLERK Maliha Gonzalez MANAGER OF ALLIED HEALTH SERVICES POCT ORDERABLES - DEVICE F inal Result Performing Organization Address City/[facility] Co de Phone Number [facility] [address] [place] [address], [place] [phone] * Vancomycin Random Level (06/24/2024 5:30 AM MONEY MARKET CLERK) VANCOMYCIN RANDOM 4.4 MCG/ML 06/24/2024 6:15 AM MONEY MARKET CLERK [facility] Comment:NO THERAPEUTIC RANGE AVAILABLE LAST DOSE UNKNOWN LAST DOSE 06/24/2024 7:31 AM [facility] 06/24/2024 5:30 AM MONEY MARKET CLERK Estrella Taveras SENIOR INVESTMENT MANAGER LABORATORY Final Resul t [facility] [address] [place] [address], * (ABNORMAL) COMPREHENSIVE METABOLIC PANEL (06/24/2024 5:30 AM MONEY MARKET CLERK) GLUCOSE 312(H) 70 - 99 MG/DL 06/24/2024 6:15 AM [facility] BUN 14 7 - 18 MG/DL 06/24/2024 6:15 AM [facility] CREATININE S/P/B 0.56 0.55 - 1.02 MG/DL 06/24/2024 6:15 AM [facility] SODIUM S/P/B 135(L) 136 - 145 MMOL/L 06/24/2024 6:15 AM [facility] POTASSIUM S/P/B 3.6 3.5 - 5.1 MMOL/L 06/24/2024 6:15 AM [facility] CHLORIDE S/P/B 106 97 - 115 MMOL/L 06/24/2024 6:15 AM [facility] CO2 26.6 21 - 32 MMOL/L 06/24/2024 6:15 AM [facility] CALCIUM S/P/B 8.3(L) 8.5 - 10.1 MG/DL 06/24/2024 6:15 AM [facility] BILIRUBIN TOTAL S/P/B 0.4 0.2 - 1.2 MG/DL 06/24/2024 6:15 AM [facility] Comment: THIS ASSAY IS NOT RECOMMENDED FOR PATIENTS UNDERGOING TREATMENT WITH ELTROMBOPAG DUE TO THE POTENTIAL FOR FALSELY ELEVATED RESULTS. TOTAL PROTEIN S/P/B 6.4 6.4 - 8.2 G/DL 06/24/2024 6:15 AM [facility] ALBUMIN S/P/B 2.6(L) 3.4 - 5.0 G/DL 06/24/2024 6:15 AM [facility] AST 20 15 - 37 U/L 06/24/2024 6:15 AM [facility] ALT 15 14 - 55 U/L 06/24/2024 6:15 AM [facility] ALKALINE PHOSPHATASE S/P/B 126 50 - 136 U/L 06/24/2024 6:15 AM [facility] ANION GAP 2.4 2 - 10 MMOL/L 06/24/2024 6:15 AM [facility] BUN CREATININE RATIO 24.9 6 - 26 06/24/2024 6:15 AM [facility] A/G RATIO 0.7(L) 1.0 - 2.0 RATIO 06/24/2024 6:15 AM [facility] GFR ESTIMATE >90 >90 ML/MIN/1.7 3 M2 06/24/2024 6:15 AM [facility] Comment: NOTE: eGFR is not calculated for patients <18 years of age or gender unknown. This is an estimated GFR calculation using the new CKD EPI creatinine equation without race and so does not require a correction factor for race. This estimated GFR should not be used for calculating drug doses. 06/24/2024 5:30 AM MONEY MARKET CLERK us Estrella Taveras SENIOR INVESTMENT MANAGER LABORATORY Final Resul t [facility] [address] [place] [address], [place] [phone] * (ABNORMAL) CBC W/DIFF AUTOMATED (06/24/2024 5:30 AM MONEY MARKET CLERK) [facility] WBC 9.06 4.5 - 11.0 x10'3/uL 06/24/2024 5:50 AM MONEY MARKET CLERK [facility] RBC 4.06(L) 4.20 - 5.40 x10'6/uL 06/24/2024 5:50 AM [facility] HGB 11.3(L) 12.0 - 16.0 G/DL 06/24/2024 5:50 AM [facility] HCT 34.2(L) 38.0 - 48.0 % 06/24/2024 5:50 AM [facility] MCV 84.2 81.0 - 99.0 FL 06/24/2024 5:50 AM [facility] MCH 27.8 27.0 - 31.0 PG 06/24/2024 5:50 AM [facility] MCHC 33.0 32.0 - 36.0 G/DL 06/24/2024 5:50 AM [facility] RDW 14.1 11.5 - 14.5 % 06/24/2024 5:50 AM [facility] PLT 339 130 - 400 x10'3/uL 06/24/2024 5:50 AM [facility] MPV 9.8 9.3 - 12.2 FL 06/24/2024 5:50 AM [facility] DIFFERENTIAL TYPE AUTOMATED DIFFERENTIAL 06/24/2024 5:50 AM [facility] NEUTROPHILS % 72.0 % 06/24/2024 5:50 AM [facility] LYMPHOCYTES % 17.7 % 06/24/2024 5:50 AM [facility] MONOCYTES % 7.2 % 06/24/2024 5:50 AM MONEY MARKET CLERK [facility] EOSINOPHILS 2.0 % 06/24/2024 5:50 AM MONEY MARKET CLERK [facility] BASOPHILS 0.7 % 06/24/2024 5:50 AM MONEY MARKET CLERK [facility] IMMATURE GRANS % 0.4 % 06/24/20 5:50 AM MONEY MARKET CLERK [facility] ABS. NEUTROPHILS 6.53 1.80 - 7.70 x10'3/uL 06/24/2024 5:50 AM MONEY MARKET CLERK [facility] ABS. LYMPHOCYTES 1.60 1.00 - 4.80 x10'3/uL 06/24/2024 5:50 AM MONEY MARKET CLERK [facility] ABS. MONOCYTES 0.65 0.24 - 0.86 x10'3/uL 06/24/2024 5:50 AM MONEY MARKET CLERK [facility] ABS. EOSINOPHILS 0.18 0.04 - 0.36 x10'3/uL 06/24/2024 5:50 AM MONEY MARKET CLERK [facility] ABS. BASOPHILS 0.06 0.01 - 0.08 x10'3/uL 06/24/2024 5:50 AM [facility] ABS. IMMATURE GRANULOCYTES 0.04 0.00 - 0.49 x10'3/uL 06/24/2024 5:50 AM [facility] 06/24/2024 5:30 AM MONEY MARKET CLERK us Estrella Taveras SENIOR INVESTMENT MANAGER LABORATORY Final Resul t [facility] [address] [place] [address], [place] [phone] * (ABNORMAL) POCT glucose (06/23/2024 11:43 PM MONEY MARKET CLERK) GLUCOSE POC 405(HH) 70 - 99 mg/dL 06/23/2024 11:45 PM MONEY MARKET CLERK [facility] Comment:Notified RN 06/23/2024 11:4 3 PM MONEY MARKET CLERK us Michele Noel MD POCT ORDERABLES - DEVICE Final Result Performing Organization Address City/[facility]/ZIP Co de Phone Number [facility] [address] [place] [address], [place] [phone] * (ABNORMAL) POCT glucose (06/23/2024 10:28 PM MONEY MARKET CLERK) GLUCOSE POC >500(HH) 70 - 99 mg/dL 06/23/2024 10:29 PM MONEY MARKET CLERK [facility] Comment:Notified RN 06/23/2024 10:2 8 PM MONEY MARKET CLERK us Michele Noel MD POCT ORDERABLES - DEVICE Final Result Performing Organization Address City/[facility] Co de Phone Number [facility] [address] [place] [address], [place] [phone] * XR CHEST PORTABLE (06/23/2024 9:32 PM MONEY MARKET CLERK) Anatomical Region Laterality Modality Chest Radiographic Arielle ging 06/23/2024 9:48 PM MONEY MARKET CLERK Impressions 06/23/2024 9:50 PM MONEY MARKET CLERK IMPRESSION: Mild central peribronchial cuffing, compatible with bronchitis versus reactive airway disease. Referred By: ?? Interpreted By: Yusuf Ashby MD, 06/23/2024 9:48 PM Narrative 06/23/2024 9:50 PM MONEY MARKET CLERK [facility] [address] [address] INDICATION: Dyspnea COMPARISON: None TECHNIQUE: Single AP radiographic image of the chest FINDINGS: No pneumothorax or pleural effusion. Mild central peribronchial cuffing. No focal airspace consolidation. Pulmonary vasculature and cardiomediastinal silhouette within normal limits. No acute osseous abnormality. Chronic, healed fractures of posterior right ribs 3 and 4. Procedure Note Yusuf Ashby MD - 06/23/[address] [address] INDICATION: Dyspnea COMPARISON: None TECHNIQUE: Single AP radiographic image of the chest FINDINGS: No pneumothorax or pleural effusion. Mild central peribronchial cuffing.No focal airspace consolidation. Pulmonary vasculature andcardiomediastinal silhouette within normal limits. No acute osseousabnormality. Chronic, healed fractures of posterior right ribs 3 and 4. IMPRESSION: Mild central peribronchial cuffing, compatible with bronchitis versusreactive airway disease. Referred By: Interpreted By: Yusuf Ashby MD, 06/23/2024 9:48 PM Estrella Taveras SENIOR INVESTMENT MANAGER GENERAL IMAGING Final Resul t * PRO-BRAIN NATRIURETIC PEPTIDE (06/23/2024 9:32 PM MONEY MARKET CLERK) PRO-B TYPE NATRIURETIC PEPTIDE 47 <125 PG/ML 06/24/2024 12:59 AM MONEY MARKET CLERK [facility] Comment: CUT POINTS ESTABLISHED BY INTERNATIONAL [...] 72% FOR ACUTE CHF. 06/23/2024 9:32 PM MONEY MARKET CLERK us Estrella Taveras SENIOR INVESTMENT MANAGER LABORATORY Final Resul t Performing Organization Address [facility] Co de Phone Number [address] [address], [place] [phone] * (ABNORMAL) OSMOLALITY, BLOOD (06/23/2024 9:32 PM MONEY MARKET CLERK) OSMOLALITY (S/P/B) 299(H) 270 - 290 MOSM/KG 06/23/2024 9:56 PM MONEY MARKET CLERK [facility] 06/23/2024 9:32 PM MONEY MARKET CLERK us Estrella Taveras SENIOR INVESTMENT MANAGER LABORATORY Final Resul t Performing Organization Address [facility] Co de Phone Number [address] [address], [place] [phone] * (ABNORMAL) POCT glucose (06/23/2024 9:05 PM MONEY MARKET CLERK) GLUCOSE POC 398(H) 70 - 99 mg/dL 06/23/2024 10:03 PM MONEY MARKET CLERK [facility] 06/23/2024 9:05 PM MONEY MARKET CLERK us Michele Noel MD POCT ORDERABLES - DEVICE Final Result Performing Organization Address City/[facility] Co de Phone Number [address] [address], [place] [phone] * CT ORBITS W CON (06/23/2024 7:20 PM MONEY MARKET CLERK) Anatomical Region Laterality Modality Orbits Computed Tomogra phy 06/23/2024 7:27 PM MONEY MARKET CLERK Impressions 06/23/2024 7:39 PM MONEY MARKET CLERK IMPRESSION: 1. ??Large area of abnormal periorbital soft tissue. 2. ??Asymmetric conjunctival enhancement on the right side. ??Potential anterior scleral enhancement on the right side. Referred By: ?? Interpreted By: Flynn Flores MD, 06/23/2024 7:27 PM Narrative 06/23/2024 7:39 PM MONEY MARKET CLERK [address] [address] EXAM: CT ORBITS W CON DATE: 06/23/2024 [...] are clear. ??No bone destruction. ??The orbital [id number] does not include the oral cavity. ??This could be correlated with direct visualization of the teeth as oral pathology could potentially extend into the facial soft tissues. ??Normal enhancement of the visualized portions of the parotid glands. Procedure Note Flynn Flores MD - 06/23/2024 [address] [place] [address], [place] [address] EXAM: CT ORBITS W CON DATE: 06/23/2024 [...] sinuses are clear. No bone destruction. The inmdbaoaextf-gu-hbtb does not include the oral cavity. This [...] By: Flynn Flores MD, 06/23/2024 7:27 PM us David Connelly MANAGER OF ALLIED HEALTH SERVICES CT Final Result * CULTURE, BACTERIA, BLOOD (06/23/2024 6:37 PM MONEY MARKET CLERK) SPEC DESCRIPTION BLOOD 06/23/2024 6:25 PM MONEY MARKET CLERK [facility] SPECIAL REQUESTS NO SPECIAL REQUEST 06/23/2024 6:25 PM MONEY MARKET CLERK [facility] CULTURE RESULT NO GROWTH 5 DAYS 06/28/2024 6:39 AM MONEY MARKET CLERK [facility] BLOOD SPECIMEN OBTAINED FOR BLOOD CULTURE / Unknown 06/23/2024 6:37 PM MONEY MARKET CLERK 06/23/2024 6:45 PM MONEY MARKET CLERK Sim Reed MD MICROBIOLOGY - GENERA L ORDERABLES Final Result Performing Organization Address City/[facility]/ZIP Co de Phone Number [facility] [address] [place] [address], [place] [phone] * PROCALCITONIN (PCT) (06/23/2024 5:51 PM MONEY MARKET CLERK) Procalcitonin 0.12 0.00 - 0.49 NG/ML 06/23/2024 7:06 PM MONEY MARKET CLERK [facility] 06/23/2024 5:51 PM MONEY MARKET CLERK David Connelly NP LABORATORY Final Result Performing Organization Address [facility] Co de Phone Number [facility] [address] [place] [address], [place] [phone] * (ABNORMAL) C-REACTIVE PROTEIN, HIGH SENSI (06/23/2024 5:51 PM MONEY MARKET CLERK) HS-CRP 3.85(H) <0.3 mg/dL 06/23/2024 6:53 PM MONEY MARKET CLERK [facility] 06/23/2024 5:51 PM MONEY MARKET CLERK David Connelly MANAGER OF ALLIED HEALTH SERVICES LABORATORY Final Result Performing Organization Address City/[facility] Co de Phone Number [facility] [address] [place] [address], [place] [phone] * SED RATE, ERYTHROCYTE (ESR) (06/23/2024 5:51 PM MONEY MARKET CLERK) ESR 7 <20 MM/HR 06/23/2024 6:42 PM MONEY MARKET CLERK [facility] Comment:Testing performed on [place]. 06/23/2024 5:51 PM MONEY MARKET CLERK David Murry Connelly MANAGER OF ALLIED HEALTH SERVICES LABORATORY Final Result [facility] [address] [place] [address], [place] [phone] * LACTIC ACID W REFLEX (SEPSIS) (06/23/2024 5:51 PM MONEY MARKET CLERK) LACTIC ACID VENOUS 1.2 0.4 - 2.0 MMOL/L 06/23/2024 6:43 PM MONEY MARKET CLERK [facility] 06/23/2024 5:51 PM MONEY MARKET CLERK David Connelly MANAGER OF ALLIED HEALTH SERVICES LABORATORY Final Result Performing Organization Address City/[facility]/ZIP Co de Phone Number [facility] [address] [place] [address], [place] [phone] * (ABNORMAL) COMPREHENSIVE METABOLIC PANEL (06/23/2024 5:51 PM MONEY MARKET CLERK) GLUCOSE 750(HH) 70 - 99 MG/DL 06/23/2024 6:53 PM MONEY MARKET CLERK [facility] Comment: Critical Result(s) Called at: 18:52:40 on 06/23/2024 by: KAYLEIGH ABDI to and read back by:HANH ESCALANTE RN BUN 15 7 - 18 MG/DL 06/23/2024 6:53 PM MONEY MARKET CLERK [facility] CREATININE S/P/B 0.96 0.55 - 1.02 MG/DL 06/23/2024 6:53 PM MONEY MARKET CLERK [facility] SODIUM S/P/B 123(L) 136 - 145 MMOL/L 06/23/2024 6:53 PM [facility] POTASSIUM S/P/B 4.4 3.5 - 5.1 MMOL/L 06/23/2024 6:53 PM [facility] CHLORIDE S/P/B 89(L) 97 - 115 MMOL/L 06/23/2024 6:53 PM [facility] CO2 25.4 21 - 32 MMOL/L 06/23/2024 6:53 PM [facility] CALCIUM S/P/B 9.6 8.5 - 10.1 MG/DL 06/23/2024 6:53 PM [facility] BILIRUBIN TOTAL S/P/B 0.8 0.2 - 1.2 MG/DL 06/23/2024 6:53 PM [facility] Comment: THIS ASSAY IS NOT RECOMMENDED FOR PATIENTS UNDERGOING TREATMENT WITH ELTROMBOPAG DUE TO THE POTENTIAL FOR FALSELY ELEVATED RESULTS. TOTAL PROTEIN S/P/B 8.5(H) 6.4 - 8.2 G/DL 06/23/2024 6:53 PM [facility] ALBUMIN S/P/B 3.7 3.4 - 5.0 G/DL 06/23/2024 6:53 PM [facility] AST 28 15 - 37 U/L 06/23/2024 6:53 PM [facility] ALT 23 14 - 55 U/L 06/23/2024 6:53 PM [facility] ALKALINE PHOSPHATASE S/P/B 181(H) 50 - 136 U/L 06/23/2024 6:53 PM [facility] ANION GAP 8.6 2 - 10 MMOL/L 06/23/2024 6:53 PM [facility] BUN CREATININE RATIO 15.5 6 - 26 06/23/2024 6:53 PM MONEY MARKET CLERK [facility] A/G RATIO 0.8(L) 1.0 - 2.0 RATIO 06/23/2024 6:53 PM MONEY MARKET CLERK [facility] GFR ESTIMATE 76(L) >90 ML/MIN/1.7 3 M2 06/23/2024 6:53 PM MONEY MARKET CLERK [facility] Comment: NOTE: eGFR is not calculated for patients <18 years of age or gender unknown. This is an estimated GFR calculation using the new CKD EPI creatinine equation without race and so does not require a correction factor for race. This estimated GFR should not be used for calculating drug doses. 06/23/2024 5:51 PM MONEY MARKET CLERK us David Connelly NP LABORATORY Final Result [facility] [address] [place] [address], * (ABNORMAL) CBC W/DIFF AUTOMATED (06/23/2024 5:51 PM MONEY MARKET CLERK) WBC 11.10(H) 4.5 - 11.0 x10'3/uL 06/23/2024 6:50 PM MONEY MARKET CLERK [facility] RBC 4.67 4.20 - 5.40 x10'6/uL 06/23/2024 6:50 PM MONEY MARKET CLERK [facility] HGB 13.0 12.0 - 16.0 G/DL 06/23/2024 6:50 PM MONEY MARKET CLERK [facility] HCT 39.3 38.0 - 48.0 % 06/23/2024 6:50 PM MONEY MARKET CLERK [facility] MCV 84.2 81.0 - 99.0 FL 06/23/2024 6:50 PM [facility] MCH 27.8 27.0 - 31.0 PG 06/23/2024 6:50 PM MONEY MARKET CLERK [facility] MCHC 33.1 32.0 - 36.0 G/DL 06/23/2024 6:50 PM MONEY MARKET CLERK [facility] RDW 13.9 11.5 - 14.5 % 06/23/2024 6:50 PM MONEY MARKET CLERK [facility] PLT 400 130 - 400 x10'3/uL 06/23/2024 6:50 PM MONEY MARKET CLERK [facility] MPV 10.0 9.3 - 12.2 FL 06/23/2024 6:50 PM MONEY MARKET CLERK [facility] NEUTROPHILS % 84.3 % 06/23/2024 6:50 PM MONEY MARKET CLERK [facility] LYMPHOCYTES % 9.6 % 06/23/2024 6:50 PM MONEY MARKET CLERK [facility] MONOCYTES % 4.6 % 06/23/2024 6:50 PM MONEY MARKET CLERK [facility] EOSINOPHILS 0.4 % 06/23/2024 6:50 PM MONEY MARKET CLERK [facility] BASOPHILS 0.5 % 06/23/2024 6:50 PM MONEY MARKET CLERK [facility] IMMATURE GRANS % 0.6 % 06/23/20 6:50 PM MONEY MARKET CLERK [facility] DIFFERENTIAL TYPE AUTOMATED DIFFERENTIAL 06/23/2024 6:50 PM MONEY MARKET CLERK [facility] ABS. NEUTROPHILS 9.36(H) 1.80 - 7.70 x10'3/uL 06/23/2024 6:50 PM MONEY MARKET CLERK [facility] ABS. LYMPHOCYTES 1.07 1.00 - 4.80 x10'3/uL 06/23/2024 6:50 PM [facility] ABS. MONOCYTES 0.51 0.24 - 0.86 x10'3/uL 06/23/2024 6:50 PM MONEY MARKET CLERK [facility] ABS. EOSINOPHILS 0.04 0.04 - 0.36 x10'3/uL 06/23/2024 6:50 PM MONEY MARKET CLERK [facility] ABS. BASOPHILS 0.05 0.01 - 0.08 x10'3/uL 06/23/2024 6:50 PM MONEY MARKET CLERK [facility] ABS. 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, not stated as uncontrolled Periorbital cellulitis Abscess of eyelid Hyperglycemia Other abnormal glucose documented in this encounter Admitting Diagnoses Diagnosis Periorbital cellulitis Abscess of eyelid documented in this encounter Administered Medications Inactive Administered Medications - up to 3 most recent administrations Medication Order MAR Action Action Date Dose Rate Site cefTRIAXone (ROCEPHIN) 2 g in sodium chloride 0.9 % 50 mL IVPB 2 g, Intravenous, at 100 mL/hr, Once, 1 dose, On Wed06/23/24 at 1830 New Bag 06/23/2024 6:43 PM MONEY MARKET CLERK 2 g 100 mL/hr cefTRIAXone (ROCEPHIN) 2 g in sodium chloride 0.9 % 50 mL IVPB 2 g, Intravenous, at 100 mL/hr, Every 24 hours, First dose on Wed06/24/24 at 1830, Until Discontinued New Bag 06/24/2024 6:15 PM MONEY MARKET CLERK 2 g 100 mL/hr dextrose 10 % bolus infusion 125-250 mL 125-250 mL, Intravenous, Administer over 15 Minutes, As needed, Low Blood Sugar, Starting on Wed06/23/24 at 2012, Until Wed06/25/24 at 1354, If patient is verbally responsive and NPO or unable to swallow: Blood glucose less than 50 mg/dL - give 250 mL (25 g) and repeat until blood glucose reaches 70 mg/dL Blood glucose 50-69 mg/dL - give 125 mL (12.5 g) and repeat until blood glucose reaches 70 mg/dL If patient is verbally Unresponsive and NPO or unable to swallow: Blood glucose less than 70 mg/dL - give 250 mL (25 g), repeat until blood glucose reaches 70 mg/dL glucagon injection 1 mg 1 mg, Intramuscular, Once as needed, Other, Low blood sugar, 1 dose, Starting on Wed06/23/24 at 2012, Until Bryant 06/25/24 at 1354, If patient is verbally UNresponsive and no IV access with blood glucose less than 70 mg/dL. Do NOT repeat administration. glucose oral gel 32-64 mL 32-64 mL (15-30 g of dextrose), Oral, As needed, Low blood sugar, Starting on Wed06/23/24 at 2011, Until Bryant 06/25/24 at 1354, If patient is verbally responsive and taking thickened liquids or oral medications: Blood glucose less than 50 mg/dL - give 30 g of dextrose; repeat until blood glucose reaches 70 mg/dL Blood glucose 50-69 mg/dL - give 15 g of dextrose; repeat until blood glucose reaches 70 mg/dL 32 mL of glucose gel = 15 g of dextrose insulin regular (NOVOLIN R/HUMULIN R) injection 10 Units 10 Units, Intravenous, Once, 1 dose, On Wed06/23/24 at 2000, For sliding scale, activate Sliding Scale Insulin order set. Given 06/23/2024 8:07 PM MONEY MARKET CLERK 10 Units iopamidol (ISOVUE-370) 76 % injection 100 mL 100 mL, Intravenous, IMG once as needed, Contrast, 1 dose, Starting on Wed06/23/24 at 1920, Until Wed06/23/24 at 192 Given 06/23/2024 7:21 PM MONEY MARKET CLERK 100 mLs Right Arm ketorolac (TORADOL) injection 15 mg 15 mg, Intravenous, Once, 1 dose, On Wed06/23/24 at 2000, For IV administration, give over 15 seconds. Given 06/23/2024 8:07 PM MONEY MARKET CLERK 15 mg levothyroxine (SYNTHROID) tablet 100 mcg 100 mcg, Oral, Every morning, First dose on 06/24/24 at 0700, Until Discontinued, Avoid iron, calcium, and antacids within 4 hours of administration. Given 06/25/2024 7:03 AM MONEY MARKET CLERK 100 mcg Given 06/24/2024 7:13 AM MONEY MARKET CLERK 100 mcg vancomycin (VANCOCIN) 1,250 mg in sodium chloride 0.9 % 250 mL IVPB 1,250 mg, Intravenous, at 175 mL/hr, Once, 1 dose, On Wed06/23/24 at 1830 New Bag 06/23/2024 7:34 PM MONEY MARKET CLERK 1,250 mg 175 mL/hr vancomycin (VANCOCIN) 1,500 mg in sodium chloride 0.9 % 250 mL IVPB 1,500 mg, Intravenous, at 132.5 mL/hr, Every 12 hours, First dose (after last reorder) on 06/24/24 at 1300, Until Discontinued New Bag 06/25/2024 1:45 AM MONEY MARKET CLERK 1,500 mg 132.5 mL/hr New Bag 06/24/2024 1:20 PM MONEY MARKET CLERK 1,500 mg 132.5 mL/hr vancomycin (VANCOCIN) 750 mg in sodium chloride 0.9 % 250 mL IVPB 750 mg, Intravenous, at 257.5 mL/hr, Every 12 hours, First dose on 06/24/24 at 0730, Until Discontinued New Bag 06/24/2024 7:13 AM MONEY MARKET CLERK 750 mg 257.5 mL/hr vancomycin pharmacy to dose placeholder Intravenous, See admin instructions, Starting on Wed06/23/24 at 2013, Until Wed06/25/24 at 1354, Vancomycin Placeholder Only: Do NOT document administrations on this placeholder.(Use medication on SEP to document administrations or contact pharmacy if medication order not entered.) documented in this encounter Active and Recently Administered Medications Times are shown in MONEY MARKET CLERK. Scheduled Medication Order 06/23/2024 06/24/2024 06/25/2024 cefTRIAXone (ROCEPHIN) 2 g in sodium chloride 0.9 % 50 mL IVPB (COMPLETED) 2 g, Intravenous, at 100 mL/hr, Once, 1 dose, On Wed06/23/24 at 1830 1843 (New Bag - Provider: Radha Ken RN)1933 (Infusion Stop Time - Provider: Meagan Peña RN) cefTRIAXone (ROCEPHIN) 2 g in sodium chloride 0.9 % 50 mL IVPB 2 g, Intravenous, at 100 mL/hr, Every 24 hours, First dose on Wed06/24/24 at 1830, Until Discontinued 1815 (New Bag - Provider: Pierre eCrda RN)1919 (Infusion Stop Time - Provider: oCrey King RN) insulin regular (NOVOLIN R/HUMULIN R) injection 10 Units (COMPLETED) 10 Units, Intravenous, Once, 1 dose, On Wed06/23/24 at 2000, For sliding scale, activate Sliding Scale Insulin order set. 2006 (Given - Provider: Meagan Peña RN) ketorolac (TORADOL) injection 15 mg (COMPLETED) 15 mg, Intravenous, Once, 1 dose, On Wed06/23/24 at 2000, For IV administration, give over 15 seconds. 2006 (Given - Provider: Meagan Peña, ADONIS) levothyroxine (SYNTHROID) tablet 100 mcg 100 mcg, Oral, Every morning, First dose on Wed06/24/24 at 0700, Until Discontinued, Avoid iron, calcium, and antacids within 4 hours of administration. 0713 (Given - Provider: Aiyana Wiley RN) 0703 (Given - Provider: Corey King RN) vancomycin (VANCOCIN) 1,250 mg in sodium chloride 0.9 % 250 mL IVPB (COMPLETED) 1,250 mg, Intravenous, at 175 mL/hr, Once, 1 dose, On Wed06/23/24 at 1830 1934 (New Bag - Provider: Meagan Peña RN)2216 (Infusion Stop Time - Provider: Rui Amaya RN) vancomycin (VANCOCIN) 1,500 mg in sodium chloride 0.9 % 250 mL IVPB 1,500 mg, Intravenous, at 132.5 mL/hr, Every 12 hours, First dose (after last reorder) on Wed06/24/24 at 1300, Until Discontinued 1320 (New Bag - Provider: Aiyana Wiley RN)1528 (Infusion Stop Time - Provider: Aiyana Wiley RN) 0145 (New Bag - Provider: Corey King RN - Comment: Med delay due to medication not on floor )0409 (Infusion Stop Time - Provider: Corey King RN)1300 (Canceled Entry - Provider: Automatic Discharge Provider - Comment: Automatically canceled at discontinue of medication order) vancomycin (VANCOCIN) 750 mg in sodium chloride 0.9 % 250 mL IVPB (CANCELED) 750 mg, Intravenous, at 257.5 mL/hr, Every 12 hours, First dose on 06/24/24 at 0730, Until Discontinued 0713 (New Bag - Provider: Aiyana Wiley, ADONIS)0819 (Infusion Stop Time - Provider: Aiyana Wiley RN) vancomycin pharmacy to dose placeholder(Linked Group 1) Intravenous, See admin instructions, Starting on Wed06/23/24 at 2012, Until 06/25/24 at 1354, Vancomycin Placeholder Only: Do NOT document administrations on this placeholder.(Use medication on SEP to document administrations or contact pharmacy if medication order not entered.) PRN Medication Order 06/23/2024 06/24/2024 06/25/2024 dextrose 10 % bolus infusion 125-250 mL 125-250 mL, Intravenous, Administer over 15 Minutes, As needed, Low Blood Sugar, Starting on Wed06/23/24 at 2011, Until 06/25/24 at 1354, If patient is verbally responsive and NPO or unable to swallow: Blood glucose less than 50 mg/dL - give 250 mL (25 g) and repeat until blood glucose reaches 70 mg/dL Blood glucose 50-69 mg/dL - give 125 mL (12.5 g) and repeat until blood glucose reaches 70 mg/dL If patient is verbally Unresponsive and NPO or unable to swallow: Blood glucose less than 70 mg/dL - give 250 mL (25 g), repeat until blood glucose reaches 70 mg/dL glucagon injection 1 mg 1 mg, Intramuscular, Once as needed, Other, Low blood sugar, 1 dose, Starting on Wed06/23/24 at 2011, Until 06/25/24 at 1354, If patient is verbally UNresponsive and no IV access with blood glucose less than 70 mg/dL. Do NOT repeat administration. glucose oral gel 32-64 mL 32-64 mL (15-30 g of dextrose), Oral, As needed, Low blood sugar, Starting on Wed06/23/24 at 2011, Until 06/25/24 at 1354, If patient is verbally responsive and taking thickened liquids or oral medications: Blood glucose less than 50 mg/dL - give 30 g of dextrose; repeat until blood glucose reaches 70 mg/dL Blood glucose 50-69 mg/dL - give 15 g of dextrose; repeat until blood glucose reaches 70 mg/dL 32 mL of glucose gel = 15 g of dextrose iopamidol (ISOVUE-370) 76 % injection 100 mL (COMPLETED) 100 mL, Intravenous, IMG once as needed, Contrast, 1 dose, Starting on Wed06/23/24 at 1920, Until Wed06/23/24 at 1921 1921 (Given - Provider: Tiffanie Shi RTR) Linked Groups Order Group 1: Pharmacy to dose vancomycin (CANCELED) Routine, Once, On Wed06/23/24 at 2014, For 1 occurrence, Indications: Skin & Soft tissue infection And vancomycin pharmacy to dose placeholderJump to med Intravenous, See admin instructions, Starting on Wed06/23/24 at 2013, Until Wed06/25/24 at 1354, Vancomycin Placeholder Only: Do NOT document administrations on this placeholder.(Use medication on SEP to document administrations or contact pharmacy if medication order not entered.) documented in this encounter Additional Health Concerns Infection Onset Date Last Indicated Resolved Time MRSA Comment:04/03/24 +MRSA Left axilla 04/07/24 +MRSA Left axilla 04/03/2024 04/07/2024 Assessment Noted Time PHQ-9 Depression Total Score: 7 06/19/20 24 3:39 PM [employer] MARKET CLERK documented as of this encounter Care Teams Medical Reviewer Relationship Specialty [place] [address] [facility] [address] [place] [address] PCP - General INTERNAL MEDICINE 02/22/24 07/09/24 Rosalia Garcia MD [facility] [facility] [place] [address] Consulting Physician ENDOCRINOLOGY 03/29/24 documented as of this encounter
--- OUTSIDE RECORDS SUMMARY | 2024-08-13 05:39 | XMS_ITS | Encounter Summary ---
Author Organization [facility] Address [address] [facility] [place] [address] Care Team Providers Care Cardiac Rehabilitation Program Director Name Role Phone Adair Finn APRN-OFFICE MACHINES WIRER Primary Care P rovider Joesph Jacobo MD Primary Care Provider [phone] Encounter Details Date Type Department Care Team (Late st Contact Info) Description 04/18/2024 Telephone [facility] - Endocrinology [address] [facility] [place] [phone] Bry Berrios MD [address] [facility] [address] [place] [address] Social History Tobacco Use Types Packs/Day Years Used Date Smoking Tobacco: Never Assessed Sex and Gender Information Value Date Recorded Sex Assigned at Not on file Gender Identity Not on file Sexual Orientation Not on file documented as of this encounter Miscellaneous Notes * Telephone Encounter - Sheree Gómez - 04/18/2024 8:51 AM CDT Current Provider: Dr. Bry Berrios Reason for Call: Mr. Madeleine Mendoza is running late and needs to reschedule this morns 8:40AM appt. Please call. Thanks Patient Call Back Number: [phone] documented in this encounter Plan of Treatment Upcoming Encounters Date Type Department Care Team (Late st Contact Info) Description 08/23/2024 10:15 AM AUTHORIZATION MANAGER Office Visit [facility] - Ophthalmology [address] [place] [phone] Sandeep Hernandez MD [address] [place] [address] DE[place] [phone] 09/27/2024 9:45 AM AUTHORIZATION MANAGER Office Visit [facility] - Ophthalmology [address] [place] [phone] Buddy Fuller MD [address] [place] [address] [place] [phone] 10/04/2024 1:00 PM AUTHORIZATION MANAGER Office Visit [facility] - Endocrinology [address] [place] [phone] Rosalia Hair MD [address] [facility] [facility] DIV [place] [phone] 02/07/2025 8:30 AM CDT Office Visit [facility] - Rheumatology [address] [place] [phone] Roni Castañeda MD [address] [place] [address] [place] [phone] documented as of this encounter Visit Diagnoses Not on filedocumented in this encounter Care Teams Cardiac Rehabilitation Program Director Relationship Specialty Start Date End Date Adair Finn, TRISHA-OFFICE MACHINES WIRER [address] [place] [address] PCP - General Nurse Practitioner Adult Health 03/29/24 08/09/24 Joesph Jacobo MD [address] [place] [phone] PCP - General Internal Medicine 08/10/24 documented as of this encounter
--- OUTSIDE RECORDS SUMMARY | 2024-08-13 05:39 | XMS_ITS | Encounter Summary ---
Author Organization [facility] Address [address] [place] [address]. [place], [place] [id number] [place] [address] Care Team Providers Care Family Resource Management Professor Name Role Phone Joesph Jacobo MD Primary Care Provider [phone] Encounter Details Date Type Department Care Team (Latest Contact Info) Description 06/23/2024 Travel Social History Tobacco Use Types Packs/Day Years Used Date Smoking Tobacco: Some Days Cigarettes 0.5 15 Smokeless Tobacco: Current Alcohol Use Standard Drinks/Week Comments Not Currently 0 (1 standard drink = 0.6 oz pur e alcohol) [facility] Utilities Answer Date Recorded In [...] often do you attend chur ch or hinduism services? Never 06/24/2024 Do you belong to any clubs o r organizations such as taoism groups, unions, fraternal or athletic groups, or [...] Recorded Patient Health Questionnaire-2 Score 2 06/19/2024 [facility] Occupat ional Health - Occupational Stress [...] any time in the past 12 m [facility], were you homeless or living in a fdc (including now)? No 06/24/2024 Comments No Sex and Gender Information Value Date Recorded Sex Assigned at Not on file Legal Sex Female 7:10 PM [employer] Gender Identity Not on file Sexual Orientation [...] Author Status No 04/07/2024 3:27 AM CDT Blayne, Samiksha, RN Active documented as of this encounter Mental Status * Question Answer Entry Date Author Status Because of a physical, mental, or emotional condition, do you have serious difficulty concentrating, remembering, or making decisions? 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
--- OUTSIDE RECORDS SUMMARY | 2024-08-13 05:40 | XMS_ITS | Encounter Summary ---
Author Organization [facility] Address [address] [place] [address]. [place], [place] [address] [place] [address] Care Team Providers Care Mva Reactor Operator Head Name Role Phone Joesph Jacobo MD Primary Care Provider [phone] Encounter Details Date Type Department Care Team (Latest Contact Info) Description 04/02/2024 Travel Social History Tobacco Use Types Packs/Day Years Used Date Smoking Tobacco: Some Days Cigarettes Smokeless Tobacco: Current Alcohol Use Standard Drinks/Week Comments Not Currently 0 (1 standard drink = 0.6 oz pur e alcohol) [facility] Utilities Answer Date Recorded In the past 12 months has [employer] electric, gas, oil, or water company threatened to shut off services in your home? No 04/03/2024 Humiliation, Afraid, Rape, and Kick questionnair e Answer Date Recorded Within the last year, have y ou been afraid of your partner or ex-partner? No 04/03/2024 Within the last year, have y ou been humiliated or emotionally abused in other ways by your partner or ex-partner? No Within the last year, have y ou been kicked, hit, slapped, or otherwise physically hurt by your partner or ex-partner? No 04/03/2024 Within the last year, have y ou been raped or forced to have any kind of sexual activity by your partner or ex-partner? No 04/03/2024 Overall Financial Resource Strain (CARDIA) Answe r Date Recorded How hard is it for you to pa y for the very basics like food, housing, medical care, and heating? Not very hard 04/03/2024 Hunger Vital Sign Answer Date Recorded Within the past 12 months, y ou worried that your food would run out before you got the money to buy more. Never true 04/03/20 Within the past 12 months, t he food you bought just didn't last and you didn't have money to get more. Never true 04/03/2024 PRAPARE - Transportation Answer Date Re corded In the past 12 months, has l ack of transportation kept you from medical appointments or from getting medications? No 09/2023 In the past 12 months, has l ack of transportation kept you from meetings, work, or from getting things needed for daily living? No 04/03/2024 Housing Stability Vital Sign Answer Fidel e Recorded In the last 12 months, was t here a time when you were not able to pay the mortgage or rent on time? No 04/03/2024 In the past 12 months, how m any times have you moved where you were living? 0 04/03/2024 At any time in the past 12 m [facility], were you homeless or living in a snf (including now)? No 04/03/2024 Comments Unknown Sex and Gender Information Value Date Recorded Sex Assigned at Not on file Legal Sex Female 7:10 PM CDT Gender Identity Not on file Sexual Orientation Not on file documented as of this encounter Plan of Treatment Not on file documented as of this encounter Visit Diagnoses Not on filedocumented in this encounter Care Teams Mva Reactor Operator Head Relationship Specialty Start [place] [address] [facility] [address] [place] [address] PCP - General INTERNAL MEDICINE 02/22/24 07/09/24 Rosalia Garcia MD [address] [facility] [place] [phone] Consulting Physician ENDOCRINOLOGY 03/29/24 documented as of this encounter
--- OUTSIDE RECORDS SUMMARY | 2024-08-13 05:40 | XMS_ITS | Encounter Summary ---
Author Organization [facility] Address [address] [place] [address]. [place], [place] [id number] [place] [id number] Care Team Providers Care Aircraft Painter Apprentice Name Role Phone Joesph Jacobo MD Primary Care Provider [phone] Reason for Referral * Imaging (Urgent) - New Request Specialty Diagnoses / Procedures Referred By Contalyse t Referred To Contact RADIOLOGY Procedures US AXILLARY NON BREAST LT James Chambers PA [address] [place] [address] Phone: tel: fax: Referral ID Status Reason Start Date Expiration Date V isits Requested Visits Authorized [id number] New Request 03/28/2024 03/28/2025 1 1 Reason for Visit * Reason Comments Abscess Encounter Details Date Type Department Care Team (Late st Contact Info) Description 03/28/2024 3:29 PM CDT - 03/28/2024 8:36 PM CDT Emergency [facility] Emergency Room [address] [place], [place] [address] Tony Conde, DO [address] [place], [place] [address] Abscess Discharge Disposition: Home or Self Care (Routine Discharge) Social History Tobacco Use Types Packs/Day Years Used Date Smoking Tobacco: Some Days Cigarettes Smokeless Tobacco: Current Alcohol Use Standard Drinks/Week Comments Not Currently 0 (1 standard drink = 0.6 oz pur e alcohol) Comments Unknown Sex and Gender Information Value Date Recorded Sex Assigned at Not on file Legal Sex Female 7:10 PM CDT Gender Identity Not on file Sexual Orientation Not on file documented as of this encounter Last Filed Vital Signs Vital Sign Reading Time Taken Comments Blood Pressure 103/73 03/28/2024 8:00 PM CDT Pulse 84 03/28/2024 6:30 PM CDT Temperature 37.6 ??C (99.7 ??F) 03/28/2024 3:18 PM CD T Respiratory Rate 16 03/28/2024 6:30 PM CDT Oxygen Saturation 100% 03/28/2024 8:00 PM CDT Inhaled Oxygen Concentration - - Weight 54.4 kg (120 lb) 03/28/2024 3:18 PM CDT Height 160 cm (5' 3 ) 03/28/2024 3:18 PM CDT Body Mass Index 21.26 03/28/2024 3:18 PM CDT documented in this encounter Discharge Instructions * Discharge Instructions* Tony Conde DO - 03/28/2024 7:25 PM CDT You were evaluated in the ED today due to concern for abscess in your left axilla. There was no drainable mass seen on ultrasound. Please return to the ED if you begin to experience any new or worsening symptoms such as intractable pain, fevers, chills are worsening swelling. Please take antibiotics as prescribed. You may also return ibuprofen Tylenol for pain control. Please follow-up with endocrinology and establish care with family medicine clinic for regulation of your glucose and follow-upof this abscess. documented in this encounter Medications at Time of Discharge Continuous Glucose Sensor (DEXCOM G6 SENSOR) [facility] 12/03/2023 Continuous Glucose Transmitter (DEXCOM G6 TRANSMITTER) [facility] 01/07/2024 HUMALOG 100 UNIT/ML injection (VIAL) Inject [...] (100 mcg total) by mouth every morning. cephALEXin (KEFLEX) 500 MG capsule Take 1 capsule (500 mg total) by mouth 4 (four) times daily for 7 days. 28 capsule 03/28/2024 04/04/20 insulin aspart (NOVOLOG) 100 UNIT/ML patient supplied PUMP Inject into the skin continuous. 04/10/20 24 documented as of this encounter ED Notes * Delma Peters RN - 03/28/2024 6:03 PM CDT When asked about patient managing her blood glucose with the dexcom. Pt states she is always that high and is normally too high to get a reading daily. Reports last adjustment on insulin was a year ago. Reports she has an appointment with her comic illustrator tomorrow. ER MD notified. * Delma Peters RN - 03/28/2024 4:42 PM CDT Pt declined blood glucose at this time stating, I have a monitor and it will go down on its own . * Tony Conde DO - 03/28/2024 3:42 PM CDT Images from the original note were not included. EMERGENCY DEPARTMENT ENCOUNTER Pt Name: Madeleine Mendoza Birthdate 1985 Date of evaluation: 03/28/2024 ED Provider: Tony Conde DO CHIEF COMPLAINT Abscess HISTORY OF PRESENT ILLNESS (Location/Symptom, Timing/Onset, Context/Setting, Quality, Duration, Modifying Factors, Severity) Note limiting factors. I wore appropriate PPE for the entirety of this encounter. Abscess Madeleine Mendoza is a 38-year-old with a past medical hx of type 1 diabetes, thyroid disease renal syndrome presents to the emergency department with chief complaint of abscess to the left armpit. Patient states she noticed the left armpit abscess forming 4 days ago. She denies any drainage from the abscess. She does endorse intermittent subjective fevers. She states the pain is severe. She states that she initially went to [facility] and they diagnosed her with cellulitis however she did not receive antibiotics at this time. She states that she is compliant with her diabetes medications. She denies any history of IV drug use but does endorse smoking. Nursing Notes were reviewed. REVIEW OF SYSTEMS Review of Systems Pertinent positives and negatives as per HPI. PAST MEDICAL HISTORY Past Medical History: Diagnosis Date Diabetes mellitus ([facility]) Disease of thyroid gland Raynaud's syndrome without gangrene SURGICAL HISTORY Past Surgical History: Procedure Laterality Date TUBAL LIGATION CURRENT MEDICATIONS Discharge Medication List as of 03/28/2024 8:17 PM CONTINUE these medications which have NOT CHANGED Details [facility]COM [facility]ENS[facility] Med Continuous Glucose Transmitter (DEXCOM G6 TRANSMITTER) [facility] Historical Med HUMALOG 100 UNIT/ML injection (VIAL) INJECT 80 UNITS UNDER THE SKIN VIA CONTINUOUS INFUSION DAILY, Historical Med insulin aspart (NOVOLOG) 100 UNIT/ML patient supplied PUMP Inject into the skin continuous., Historical Med Insulin Disposable Pump (OMNIPOD 5 G6 PODS, GEN 5,) [facility] USE AND CHANGE EVERY 48 HOURS, Historical Med levothyroxine (SYNTHROID) 100 MCG tablet Take 1 tablet (100 mcg total) by mouth every morning., Historical Med ALLERGIES Review of patient's allergies indicates: Patient has no known allergies. FAMILY HISTORY No family history on file. SOCIAL HISTORY Social History Socioeconomic History Marital status: Single Tobacco Use Smoking status: Some Days Types: Cigarettes Smokeless tobacco: Current Substance and Sexual Activity Alcohol use: Not Currently Drug use: Never Sexual activity: Not Currently VITAL SIGNS Patient Vitals for the past 24 hrs: BP Temp Temp src Pulse Resp SpO2 Height Weight 03/28/241999 103/73 -- -- -- -- 100 % -- -- 03/28/241929 113/77 -- -- -- -- 99 % -- -- 03/28/24 1900 111/71 -- -- -- -- 98 % -- -- 03/28/24 1830 105/77 -- -- 84 16 99 % -- -- 03/28/24 1800 112/79 -- -- 92 -- 99 % -- -- 03/28/24 1730 125/80 -- -- -- -- 100 % -- -- 03/28/24 1645 117/81 -- -- (!) 108 -- 100 % -- -- 03/28/24 1518 127/79 99.7 ??F (37.6 ??C) Temporal (!) 119 20 100 % 1.6 m (5' 3 ) 54.4 kg (120 lb) PHYSICAL EXAM Physical Exam Constitutional: General: She is in acute distress. Appearance: She is normal weight. She is not toxic-appearing or diaphoretic. HENT: Head: Normocephalic and atraumatic. Right Ear: External ear normal. Left Ear: External ear normal. Nose: Nose normal. Mouth/Throat: Mouth: Mucous membranes are moist. Pharynx: Oropharynx is clear. Eyes: General: No scleral icterus. Right eye: No discharge. Left eye: No discharge. Conjunctiva/sclera: Conjunctivae normal. Cardiovascular: Rate and Rhythm: Regular rhythm. Tachycardia present. Heart sounds: Normal heart sounds. No murmur heard. No gallop. Pulmonary: Effort: Pulmonary effort is normal. Breath sounds: Normal breath sounds. Abdominal: Tenderness: There is no abdominal tenderness. Skin: General: Skin is warm and dry. Capillary Refill: Capillary refill takes less than 2 seconds. Comments: Abscess in the left armpit please see patient for details. No crepitus or fluctuance appreciated on palpation there is a large indurated area in the left armpit. Neurological: Mental Status: She is alert and oriented to person, place, and time. Comments: Purposeful movement of all 4 extremities DIAGNOSTIC RESULTS Procedures/EKG: No results found for this visit on 03/28/24. RADIOLOGY (Per Emergency Physician): Interpretation per the Radiologist below, if available at the time of this note: US AXILLARY NON BREAST LT Final Result by User, [id number] (03/28 3124) Examination: Ultrasound soft tissue axial Exam date/time: [...] By: Brady Altamirano MD, 03/28/2024 4:14 PM ED BEDSIDE ULTRASOUND: Performed by ED Physician - none LABS: Labs Reviewed COMPREHENSIVE METABOLIC PANEL - Abnormal; Notable for the following components: Result Value GLUCOSE 764 (*) BUN 5 (*) SODIUM S/P/B 128 (*) CHLORIDE S/P/B 91 (*) ALBUMIN S/P/B 2.6 (*) ALT 11 (*) ALKALINE PHOSPHATASE S/P/B 141 (*) A/G RATIO 0.6 (*) All other components within normal limits CBC W/DIFF AUTOMATED - Abnormal; Notable for the following components: WBC 11.32 (*) ABS. NEUTROPHILS 9.57 (*) ABS. LYMPHOCYTES 0.82 (*) All other components within normal limits POCT GLUCOSE - HAMILTON DOCKED DEVICE - Abnormal; Notable for the following components: GLUCOSE POC >500 (*) All other components within normal limits POCT GLUCOSE - HAMILTON DOCKED DEVICE - Abnormal; Notable for the following components: GLUCOSE POC 384 (*) All other components within normal limits POCT URINE (BACK OFFICE) - Normal LACTIC ACID W REFLEX (SEPSIS) All other labs were within normal range or not returned as of this dictation. EMERGENCY DEPARTMENT COURSE and DIFFERENTIAL DIAGNOSIS/MDM: Madeleine Mendoza 38-year-old female presents with the following Chief Compliant: Abscess left upper extremity. Patient vitals concerning for tachycardia heart rate 119 remainder vital stable. Physical exam as noted above My DDX includes but not limited to abscess, subcutaneous mass, cellulitis, Patient was initially treated with Zofran IV 4 mg, morphine 2 mg IV and 50 mg of IV ketorolac for pain control. Patient was also started on 1 L of normal saline. Patient workup did initially consist of ultrasound of the axillary on the left side, , lactic acid, CBC and CMP. Patient was negative. Patient's lactic acid was unremarkable. CMP was concerning for severe hyperglycemia the glucose was 764. Patient had a mild leukocytosis white count 11.2. Patient did receive 5 units of insulin and 2 L normal saline. Patient states that she would not like to be treated for her glucose. She states that she runs around this range. She states that she refuses to start herself when she is hyperglycemic. I did discuss concerns that she could go into DKA and patient appeared understand and states she would like to be discharged home. Patient did not appear to be altered or intoxicated. Patient was given a prescription for Keflex. Patient stable at time of discharge. All questions, concerns and strict return precautions addressed with the patient prior to being discharged. CRITICAL CARE TIME CONSULTS: None PROCEDURES: Unless otherwise noted below, none Procedures FINAL IMPRESSION SNOMED CT(R) 1. Hyperglycemia HYPERGLYCEMIA 2. Abscess ABSCESS DISPOSITION Discharge PATIENT REFERRED TO: [facility] Emergency Room [facility] [address] [place] [address] [facility] [address] [facility] [address] [place] [address] [facility] [address] [place] [address] DISCHARGE MEDICATIONS: Discharge Medication List as of 03/28/2024 8:17 PM START taking these medications Details cephALEXin (KEFLEX) 500 MG capsule Take 1 capsule (500 mg total) by mouth 4 (four) times daily for 7 days., Starting Wed03/28/2024, Until Wed04/04/2024, [employer] (Comment: Please note this report has been produced using speech recognition software and may contain errors related to that system including errors in grammar, punctuation, and spelling, as well as words and phrases that may be inappropriate. If there are any questions or concerns please feel freeto contact the dictating provider for clarification.) Tony Conde DO (electronically signed) Emergency Medicine Provider Tony Conde DO 03/29/24 0045 * Daniella Mendoza RN - 03/28/2024 3:20 PM CDT Reports painful abscess to lt axilla x 4 days. Subjective fever. documented in this encounter Plan of Treatment Not on file documented as of this encounter Procedures Procedure Name Priority Date/Time Associated Diagnosis Comments POCT GLUCOSE - HAMILTON DOCKED DEVICE Routine 03/28/2024 7:48 PM CDT POCT GLUCOSE - HAMILTON DOCKED DEVICE Routine 03/28/2024 6:27 PM CDT POCT URINE (BACK OFFICE) STAT 03/28/2024 6:02 PM CDT LACTIC ACID W REFLEX (SEPSIS) STAT 03/28/2024 4:48 PM CDT COMPREHENSIVE METABOLIC PANEL STAT 03/28/2024 4:19 PM CDT CBC W/DIFF AUTOMATED STAT 03/28/2024 4:19 PM CDT US AXILLARY NON BREAST LT STAT 03/28/2024 4:15 PM CDT documented in this encounter Results * (ABNORMAL) POCT glucose (03/28/2024 7:48 PM CDT) GLUCOSE POC 384(H) 70 - 99 mg/dL 03/28/2024 7:50 PM CDT [facility] 03/28/2024 7:48 PM CDT Tony Conde DO POCT ORDERABLES - DEVICE Final Result [facility] [address] [place] [address], * (ABNORMAL) POCT glucose (03/28/2024 6:27 PM CDT) GLUCOSE POC >500(HH) 70 - 99 mg/dL 03/28/2024 6:33 PM CDT [facility] 03/28/2024 6:27 PM CDT Tony Conde DO POCT ORDERABLES - DEVICE Final Result [facility] [address] [place] [address], * POCT urine (03/28/2024 6:02 PM CDT) URINE HCG TEST NEGATIVE Internal Control: VALID James BALL POINT OF CARE TEST ORDERAB LES Final Result * LACTIC ACID W REFLEX (SEPSIS) (03/28/2024 4:48 PM CDT) LACTIC ACID VENOUS 1.7 0.4 - 2.0 MMOL/L 03/28/2024 5:34 PM CDT [facility] 03/28/2024 4:48 PM CDT us James [facility] Final Resu lt [facility] [address] [place] [address], * (ABNORMAL) CBC W/DIFF AUTOMATED (03/28/2024 4:19 PM CDT) WBC 11.32(H) 4.5 - 11.0 x10'3/uL 03/28/2024 5:20 PM CDT [facility] RBC 4.59 4.20 - 5.40 x10'6/uL 03/28/2024 5:20 PM CDT [facility] HGB 12.8 12.0 - 16.0 G/DL 03/28/2024 5:20 PM CDT [facility] HCT 38.5 38.0 - 48.0 % 03/28/2024 5:20 PM CDT [facility] MCV 83.9 81.0 - 99.0 FL 03/28/2024 5:20 PM CDT [facility] MCH 27.9 27.0 - 31.0 PG 03/28/2024 5:20 PM CDT [facility] MCHC 33.2 32.0 - 36.0 G/DL 03/28/2024 5:20 PM CDT [facility] RDW 14.1 11.5 - 14.5 % 03/28/2024 5:20 PM CDT [facility] PLT 289 130 - 400 x10'3/uL 03/28/2024 5:20 PM CDT [facility] MPV 10.5 9.3 - 12.2 FL 03/28/2024 5:20 PM CDT [facility] DIFFERENTIAL TYPE AUTOMATED DIFFERENTIAL 03/28/2024 5:20 PM CDT [facility] NEUTROPHILS % 84.6 % 03/28/2024 5:20 PM CDT [facility] LYMPHOCYTES % 7.2 % 03/28/2024 5:20 PM CDT [facility] MONOCYTES % 6.5 % 03/28/2024 5:20 PM CDT [facility] EOSINOPHILS 0.9 % 03/28/2024 5:20 PM CDT [facility] BASOPHILS 0.3 % 03/28/2024 5:20 PM CDT [facility] IMMATURE GRANS % 0.5 % 03/28/20 5:20 PM CDT [facility] ABS. NEUTROPHILS 9.57(H) 1.80 - 7.70 x10'3/uL 03/28/2024 5:20 PM CDT [facility] ABS. LYMPHOCYTES 0.82(L) 1.00 - 4.80 x10'3/uL 03/28/2024 5:20 PM CDT [facility] ABS. MONOCYTES 0.74 0.24 - 0.86 x10'3/uL 03/28/2024 5:20 PM CDT [facility] ABS. EOSINOPHILS 0.10 0.04 - 0.36 x10'3/uL 03/28/2024 5:20 PM CDT [facility] ABS. BASOPHILS 0.03 0.01 - 0.08 x10'3/uL 03/28/2024 5:20 PM CDT [facility] ABS. IMMATURE GRANULOCYTES 0.06 0.00 - 0.49 x10'3/uL 03/28/2024 5:20 PM CDT [facility] 03/28/2024 4:19 PM CDT us James [facility] Final Resu lt [facility] [address] [place] [address], * (ABNORMAL) COMPREHENSIVE METABOLIC PANEL (03/28/2024 4:19 PM CDT) GLUCOSE 764(HH) 70 - 99 MG/DL 03/28/2024 5:42 PM CDT [facility] Comment: Critical Result(s) Called at: 17:41:25 on 03/28/2024 by: DAJA SPARROW to and read back by:KEYON PETERS BUN 5(L) 7 - 18 MG/DL 03/28/2024 5:42 PM CDT [facility] CREATININE S/P/B 0.84 0.55 - 1.02 MG/DL 03/28/2024 5:42 PM CDT [facility] SODIUM S/P/B 128(L) 136 - 145 MMOL/L 03/28/2024 5:42 PM CDT [facility] POTASSIUM S/P/B 3.6 3.5 - 5.1 MMOL/L 03/28/2024 5:42 PM CDT [facility] CHLORIDE S/P/B 91(L) 97 - 115 MMOL/L 03/28/2024 5:42 PM CDT [facility] CO2 28.5 21 - 32 MMOL/L 03/28/2024 5:42 PM CDT [facility] CALCIUM S/P/B 8.5 8.5 - 10.1 MG/DL 03/28/2024 5:42 PM CDT [facility] BILIRUBIN TOTAL S/P/B 0.3 0.2 - 1.2 MG/DL 03/28/2024 5:42 PM T [facility] Comment: THIS ASSAY IS NOT RECOMMENDED FOR PATIENTS UNDERGOING TREATMENT WITH ELTROMBOPAG DUE TO THE POTENTIAL FOR FALSELY ELEVATED RESULTS. TOTAL PROTEIN S/P/B 6.8 6.4 - 8.2 G/DL 03/28/2024 5:42 PM T [facility] ALBUMIN S/P/B 2.6(L) 3.4 - 5.0 G/DL 03/28/2024 5:42 PM [facility] AST 16 15 - 37 U/L 03/28/2024 5:42 PM [facility] ALT 11(L) 14 - 55 U/L 03/28/2024 5:42 PM [facility] ALKALINE PHOSPHATASE S/P/B 141(H) 50 - 136 U/L 03/28/2024 5:42 PM T [facility] ANION GAP 8.5 2 - 10 MMOL/L 03/28/2024 5:42 PM [facility] BUN CREATININE RATIO 6.0 6 - 26 03/28/2024 5:42 PM [facility] A/G RATIO 0.6(L) 1.0 - 2.0 RATIO 03/28/2024 5:42 PM [facility] GFR ESTIMATE >90 >90 ML/MIN/1.7 3 M2 03/28/2024 5:42 PM [facility] Comment: NOTE: eGFR is not calculated for patients <18 years of age. This is an estimated GFR calculation using the new CKD EPI creatinine equation without race and so does not require a correction factor for race. This estimated GFR should not be used for calculating drug doses. 03/28/2024 4:19 PM CDT us James [facility] Final Resu lt [facility] [address] [place] [address], [place] [phone] * US AXILLARY NON BREAST LT (03/28/2024 4:15 PM CDT) Anatomical Region Laterality Modality Extremity Ultrasound 03/28/2024 4:14 PM CDT Impressions 03/28/2024 4:19 PM CDT IMPRESSION: Irregular area of soft tissue mixed echogenicity measuring 2.5 x 4.2 cm in the left axilla may represent an area of infection, inflammation, possible phlegmon or developing abscess. No definite drainable component. Clinical and imaging follow-up to resolution recommended. If persistent needle tissue sampling can be considered. Ordered By: JAMES CHAMBERS Interpreted By: Brady Altamirano MD, 03/28/2024 4:14 PM Narrative 03/28/2024 4:19 PM CDT Examination: Ultrasound soft tissue axial Exam date/time: 03/28/2024 3:49 PM ?? Clinical indication: 38-year-old female. Left axillary pain [...] obvious regional adenopathy. No soft tissue abnormalities. Procedure Note Brady Altamirano MD - 03/28/2024 Examination: Ultrasound soft tissue axial Exam date/time: 03/28/2024 3:49 PM Clinical indication: 38-year-old female. Left axillary pain and swellingand induration Comparison: None Technique: Grayscale and color Doppler assessment of the area of clinicalconcern performed. FINDINGS: There is an irregular mixed echogenicity area of soft tissue with with aperipheral hypoechoic area and central hyperechoic area measuringapproximately 2.5 x 4.2 cm, 1 to 2 cm deep to the skin. There isnonspecific and could represent phlegmon or developing abscess. Minimalassociated vascularity. No obvious regional adenopathy. No soft tissue abnormalities. IMPRESSION: Irregular area of soft tissue mixed echogenicity measuring 2.5 x 4.2 cm inthe left axilla may represent an area of infection, inflammation, possiblephlegmon or developing abscess. No definite drainable component. Clinicaland imaging follow- up to resolution recommended. If persistent needletissue sampling can be considered. Ordered By: JAMES CHAMBERS Interpreted By: Brady Altamirano MD, 03/28/2024 4:14 PM us James Chambers PA ULTRASOUND Final Resu lt documented in this encounter Visit Diagnoses Diagnosis Hyperglycemia- Primary Other abnormal glucose Abscess Cellulitis and abscess of unspecified site documented in this encounter Administered Medications Inactive Administered Medications - up to 3 most recent administrations Medication Order MAR Action Action Date Dose Rate Site acetaminophen (TYLENOL) tablet 1,000 mg 1,000 mg, Oral, Once, 1 dose, On Wed03/28/24 at 1930, Maximum dose of acetaminophen is 4000 mg from all sources in 24 hours. Given 03/28/2024 7:55 PM CDT 500 mg cephALEXin (KEFLEX) capsule 500 mg 500 mg, Oral, Once, 1 dose, On Wed03/28/24 at 1930 Given 03/28/2024 7:54 PM CDT 500 mg insulin regular (NOVOLIN R/HUMULIN R) injection 5 Units 5 Units, Intravenous, Once, 1 dose, On Wed03/28/24 at 1815, For sliding scale, activate Sliding Scale Insulin order set. Given 03/28/2024 6:27 PM CDT 5 Units ketorolac (TORADOL) injection 15 mg 15 mg, Intravenous, Once, 1 dose, On Wed03/28/24 at 1530, For IV administration, give over 15 seconds. Given 03/28/2024 5:08 PM CDT 15 mg ondansetron (ZOFRAN) injection 4 mg 4 mg, Intravenous, Once, 1 dose, On Wed03/28/24 at 1545, IV push over 2-5 minutes. Given 03/28/2024 5:08 PM CDT 4 mg sodium chloride 0.9% bolus infusion 1,000 mL 1,000 mL, Intravenous, Administer over 60 Minutes, Bolus (Once), 1 dose, On Wed03/28/24 at 1545 New Bag 03/28/2024 5:06 PM CDT 1,000 mLs 1000 mL/hr sodium chloride 0.9% bolus infusion 1,000 mL 1,000 mL, Intravenous, Administer over 60 Minutes, Bolus (Once), 1 dose, On Wed03/28/24 at 1815 New Bag 03/28/2024 6:26 PM CDT 1,000 mLs 1000 mL/hr documented in this encounter Active and Recently Administered Medications Times are shown in CDT. Scheduled Medication Order 03/26/2024 03/27/2024 03/28/2024 acetaminophen (TYLENOL) tablet 1,000 mg (COMPLETED) 1,000 mg, Oral, Once, 1 dose, On Wed03/28/24 at 1930, Maximum dose of acetaminophen is 4000 mg from all sources in 24 hours. 1954 (Given - Provid er: Luna Chandler RN - Comment: Patient refused 2nd pill) cephALEXin (KEFLEX) capsule 500 mg (COMPLETED) 500 mg, Oral, Once, 1 dose, On Wed03/28/24 at 1930 1954 (Given - Provid er: Luna Chandler RN) insulin regular (NOVOLIN R/HUMULIN R) injection 5 Units (COMPLETED) 5 Units, Intravenous, Once, 1 dose, On Wed03/28/24 at 1815, For sliding scale, activate Sliding Scale Insulin order set. 1827 (Given - Provid er: Delma Peters RN - Comment: POC BG >500; ER MD notified.) ketorolac (TORADOL) injection 15 mg (COMPLETED) 15 mg, Intravenous, Once, 1 dose, On Wed03/28/24 at 1530, For IV administration, give over 15 seconds. 170 (Given - Provid er: Delma Peters RN) morphine injection 2 mg 2 mg, Intravenous, Once, 1 dose, On Wed03/28/24 at 1545 1705 (Not Given - Pr ovider: Delma Peters RN - Reason: Patient/family declined - Comment: Pt stated, I dont need that .) ondansetron (ZOFRAN) injection 4 mg (COMPLETED) 4 mg, Intravenous, Once, 1 dose, On Wed03/28/24 at 1545, IV push over 2-5 minutes. 1708 (Given - Provid er: Delma Peters RN) sodium chloride 0.9% bolus infusion 1,000 mL (COMPLETED) 1,000 mL, Intravenous, Administer over 60 Minutes, Bolus (Once), 1 dose, On Wed03/28/24 at 1545 1706 (New Bag - Prov ider: Delma Peters RN)1826 (Infusion Stop Time - Provider: Delma Peters RN) sodium chloride 0.9% bolus infusion 1,000 mL (COMPLETED) 1,000 mL, Intravenous, Administer over 60 Minutes, Bolus (Once), 1 dose, On Wed03/28/24 at 1815 1826 (New Bag - Prov ider: Delma Peters RN)1926 (Infusion Stop Time - Provider: Luna Chandler RN) documented in this encounter Care Teams Aircraft Painter Apprentice Relationship Specialty [place] [id number] [address] PCP - General INTERNAL MEDICINE 02/22/24 07/09/24 documented as of this encounter
--- OUTSIDE RECORDS SUMMARY | 2024-08-13 05:40 | XMS_ITS | Encounter Summary ---
Author Organization [facility] Address [address] [place] [address]. [place], [place] [id number] [place] [id number] Care Team Providers Care Studio Coordinator Name Role Phone Unavailable Primary Care Provider Unavailabl e Encounter Details Date Type Department Care Team (Late st Contact Info) Description 11/25/2007 Abstract [facility] Emergency Room [address] [place] [address] Jc Martins MD [address] [place] [address] Social History Tobacco Use Types Packs/Day Years Used Date Smoking Tobacco: Never Assessed Comments Unknown Sex and Gender Information Value Date Recorded Sex Assigned at Not on file Legal Sex Female 7:10 PM CDT Gender Identity Not on file Sexual Orientation Not on file documented as of this encounter Plan of Treatment Not on file documented as of this encounter Visit Diagnoses Not on filedocumented in this encounter
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
--- OUTSIDE RECORDS SUMMARY | 2024-08-13 05:40 | XMS_ITS | Encounter Summary ---
Author Organization [facility] Address [address] [place] [address]. 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 ([facility]) Other cataract of both eyes Procedures OFFICE/OUTPATIENT NEW LOW MDM 30-44 MINUTES OFFICE/OUTPT VISIT,NEW,LEVL IV OFFICE/OUTPT VISIT,NEW,LEVL V OFFICE/OUTPT VISIT,EST,LEVL III OFFICE/OUTPT VISIT,EST,LEVL IV OFFICE/OUTPT VISIT,EST,LEVL V Adair Brito NP Phone: tel: fax: [facility] [address] [place] [address] Phone: tel: fax: Referral ID Status Reason Start Date Expiration Date Visits Requested Visits Authorized [id number] Pending Review Specialty Services 02/14/2024 03/17/2025 100 100 Reason for Visit * Reason Comments New Patient PT needing new PCP, also needs a clearance form for Left Cataract removal and total lens replacement or Hill vision. Encounter Details Date Type Department Care Team (Late st Contact Info) Description 02/14/2024 9:00 AM CDT Office Visit [facility] [address] [place] [address] Adair Brito, SHAWN [address] [facility] [place] [address] New Patient (PT needing new PCP, also needs a clearance form for Left Cataract removal and total lens replacement or Hill vision.) Social History Tobacco Use Types Packs/Day Years Used Date Smoking Tobacco: Some Days Cigarettes Smokeless Tobacco: Current Tobacco Cessation:Ready to Q uit: No; Counseling Given: Yes Alcohol Use Standard Drinks/Week [...] Sign Reading Time Taken Comments Blood Pressure 133/94 02/14/2024 9:29 AM CDT Pulse 95 02/14/2024 9:17 AM CDT Temperature 37.1 ??C (98.7 ??F) 02/14/2024 9:17 AM CD T Respiratory Rate 19 02/14/2024 9:17 AM CDT Oxygen Saturation 99% 02/14/2024 9:17 AM CDT Inhaled Oxygen Concentration - - Weight 53.9 kg (118 lb 12.8 oz) 02/14/2024 9:17 AM CDT Height 160 cm (5' 3 ) 02/14/2024 9:17 AM CDT Body Mass Index 21.04 02/14/2024 9:17 AM CDT documented in this encounter Progress Notes * Adair Brito NP - 02/14/2024 9:00 AM CDT Reason for Visit: New Patient (PT needing new PCP, also needs a clearance form for Left Cataract removal and total lens replacement or Hill vision.) History of Present Illness: Madeleine Mendoza is a 38-year-old female patient who comes in clinic today to establish care. Patient has a past medical history of type 1 diabetes, hyperthyroidism, HTN, and cataracts bilateral eyes. ROS: Review of Systems Constitutional: Negative. HENT: Negative. Eyes: Positive for visual disturbance. Patient unable to see with bilateral cataracts. Left eye is getting fixed on February 20. The right eye is getting fixed on February 28. Respiratory: Negative. Cardiovascular: Negative. Gastrointestinal: Negative. Endocrine: Negative. Genitourinary: Negative. Musculoskeletal: Negative. Allergic/Immunologic: Negative. Neurological: Negative. Hematological: Negative. Psychiatric/Behavioral: Negative. Medications: Current Outpatient Medications: Continuous Glucose Sensor [...] , Rfl: Review of patient's allergies indicates: Not on File Past Medical History: Diagnosis Date Diabetes mellitus ([facility]) Disease of thyroid gland Raynaud's syndrome without gangrene Past Surgical History: Procedure Laterality Date TUBAL LIGATION Social History Socioeconomic History Marital status: Single Tobacco Use Smoking status: Some Days Types: Cigarettes Smokeless tobacco: Current Substance and Sexual Activity Alcohol use: Not Currently Drug use: Never Sexual activity: Not Currently No family history on file. No family status information on file. Filed Vitals: 02/14/24 0917 02/14/24 0929 BP: (!) 129/91 (!) 133/94 Pulse: 95 Resp: 19 Temp: 98.7 ??F (37.1 ??C) TempSrc: Temporal SpO2: 99% Weight: 53.9 kg (118 lb 12.8 oz) Height: 1.6 m (5' 3 ) Physical Exam: Physical Exam HENT: Head: Normocephalic. Right Ear: Tympanic membrane normal. Left Ear: Tympanic membrane normal. Mouth/Throat: Pharynx: Oropharynx is clear. Eyes: Comments: Bilateral cataract Cardiovascular: Rate and Rhythm: Normal rate and regular rhythm. Pulses: Normal pulses. Pulmonary: Effort: Pulmonary effort is normal. Breath sounds: Normal breath sounds. Abdominal: General: Bowel sounds are normal. Musculoskeletal: General: Normal range of motion. Skin: General: Skin is warm. Capillary Refill: Capillary refill takes less than 2 seconds. Neurological: General: No focal deficit present. Mental Status: She is alert. Psychiatric: Mood and Affect: Mood normal. Diagnoses/Impression: Madeleine was seen today for new patient. Patient was seeing Dr. Kam in [place], [place] for her Type I diabetes issues. She is no longer able to see this provider due to non-compliance. I have referredher to Endrocrinology at [facility] in [place], [place]. Patient is controlled for now on her insulin pump. Baseline labs ordered for patient to have drawn. Patient was also seen for her surgical clearance for her cataract procedure coming up on February [address] Paulson. Patient was given clearance at appointment. She is not on any blood thinners or medications that would complicate her having procedure. Paperwork being sent to Dr. Paulson. 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 ([facility]/HCC)- Primary 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, not stated as uncontrolled Other cataract of both eyes Hypothyroidism, unspecified type Screening for deficiency anemia Screening for other and unspecified deficiency anemia Benign hypertension Essential hypertension, benign Screening for cholesterol level Screening for lipoid disorders General medical exam Unspecified general medical examination documented in this encounter Care Teams Appliance Sales Associate Relationship Specialty Start Date End Date Adair Brito NP PCP - General NURSE [facility]ACTITION[facility]ULT [facility] 01/31/24 02/21/24 [place] [address] [place] [address] PCP - General INTERNAL MEDICINE 02/22/24 07/09/24 documented as of this encounter
--- OUTSIDE RECORDS SUMMARY | 2024-08-13 05:40 | XMS_ITS | Encounter Summary ---
Author Organization [facility] Address [address] [place] [address]. [place], [place] [address] [place] [address] Care Team Providers Care Composer Teaching Artist Name Role Phone Joesph Jacobo MD Primary Care Provider [phone] Reason for Visit * Auth/Cert Specialty Diagnoses / Procedures Referred By Contalyse t Referred To Contact Diagnoses Abscess, axilla Abscess of axilla, left Procedures NONE Nataliia Muhammad, DO [address] [place] [address] Phone: tel: fax: Referral ID Status Reason Start Date Expiration Date Visits Re quested Visits Authorized [id number] 1 1 Encounter Details Date Type Department Care Team (Late st Contact Info) Description 04/03/2024 11:30 AM CDT Anesthesia Event [facility] [place], [place] [id number] Brady Dejesus MD [address] [place], [place] [id number] Anesthesia Record Procedure Summary Procedure Name Responsible Anesthesiologist Anesthesia Start Time Anesthesia Stop Time INCISION AND DRAINAGE LEFT AXILLARY ABSCESS (Left) Events Date Time Event Comment 04/03/2024 1052 AN LUMBER TRIMMER Prepped 04/07/2024 0913 ANE Not Admin Meds * Agents No agents on file. * Blood No blood administrations on file. Lines, Drains, and Airways No LDAs on file. documented in this encounter Social History Tobacco Use Types Packs/Day Years Used Date Smoking Tobacco: Some Days Cigarettes Smokeless Tobacco: Current Alcohol Use Standard Drinks/Week Comments Not Currently 0 (1 standard drink = 0.6 oz pur e alcohol) [facility] Utilities Answer Date Recorded [...] any time in the past 12 m [facility], were you homeless or living in a detention (including now)? No 04/07/2024 Comments Unknown Sex and Gender Information Value [...] Answer Date of Assessment Author Status No 04/03/2024 2:00 AM Arleth Castillo RN Active * Are you blind or do you have serious difficulty seeing, even when wearing glasses? Answer Date of Assessment Author Status Yes 04/03/2024 2:00 AM Arleth Castillo RN Active * Do you have serious difficulty walking or climbing stairs? Answer Date of Assessment Author Status No 04/03/2024 2:00 AM Arleth Castillo RN Active * Do you have difficulty dressing or bathing? Answer Date of Assessment Author Status No 04/03/2024 2:00 AM Arleth Castillo RN Active * Because of a physical, mental, or emotional condition, do you have difficulty doing errands alone such as visiting a doctor's office or shopping? Answer Date of Assessment Author Status No 04/03/2024 2:00 AM Arleth Castillo RN Active documented as of this encounter [...] decisions? Answer Entry Date Author Status No 04/03/2024 2:00 AM CDT Arleth Castro RN Active documented in this encounter Plan of Treatment Not on file documented as of this encounter Goals Goal Patient Goal Type Associated Problems Recent Progress Patient-Stated? Author Health - patient able to perform ADLs independently Lifestyle No Koermaria i er, Kole Villlaobos RN documented as of this encounter Visit Diagnoses Not on filedocumented in this encounter Care Teams Composer Teaching Artist Relationship Specialty Start [place] [address] [facility] [address] [place] [address] PCP - General INTERNAL MEDICINE 02/22/24 07/09/24 Rosalia Garcia MD [address] [place] [address] [place] [phone] Consulting Physician ENDOCRINOLOGY 03/29/24 documented as of this encounter
--- OUTSIDE RECORDS SUMMARY | 2024-08-13 05:40 | XMS_ITS | Encounter Summary ---
Author Organization [facility] Address [address] [place] [address]. [place], [place] [address] [place] [address] Care Team Providers Care Manual Training Teacher Name Role Phone Joesph Jacobo MD Primary Care Provider [phone] Encounter Details Date Type Department Care Team (Latest Contact Info) Description 04/07/2024 Travel Social History Tobacco Use Types Packs/Day Years Used Date Smoking Tobacco: Some Days Cigarettes Smokeless Tobacco: Current Alcohol Use Standard Drinks/Week Comments Not Currently 0 (1 standard drink = 0.6 oz pur e alcohol) [facility] Utilities Answer Date Recorded In the past 12 months has [employer] electric, gas, oil, or water company threatened [...] any time in the past 12 m [facility], were you homeless or living in a long term (including now)? No 04/07/2024 Comments No Sex [...] Author Status No 04/07/2024 3:27 AM Nicolas rGeen RN Active * Are you blind or [...] documented as of this encounter Care Teams Manual Training Teacher Relationship Specialty [place] [address] [address] [place] [id number] PCP - General INTERNAL MEDICINE 02/22/24 07/09/24 Rosalia Garcia MD [address] [facility] [address] Consulting Physician ENDOCRINOLOGY 03/29/24 documented as of this encounter
--- OUTSIDE RECORDS SUMMARY | 2024-08-13 05:40 | XMS_ITS | Encounter Summary ---
Author Organization [facility] Address [address] [place] [address]. [place], [place] [address] [place] [address] Care Team Providers Care Medicaid Nurse Name Role Phone Joesph Jacobo MD Primary Care Provider [phone] Encounter Details Date Type Department Care Team (Late st Contact Info) Description 03/29/2024 Abstract [facility] [address] [place] [address] Abstract, Doc Med Group Social History Tobacco Use Types Packs/Day Years Used Date Smoking Tobacco: Some Days Cigarettes Smokeless Tobacco: Current Alcohol Use Standard Drinks/Week Comments Not Currently 0 (1 standard drink = 0.6 oz pur e alcohol) [facility] Utilities Answer Date Recorded In the past 12 months has e [employer], gas, oil, or water [employer] threatened to shut off services in your [...] any time in the past 12 m [facility], were you homeless or living in a fdc (including now)? No 04/07/2024 Comments Unknown Sex and Gender Information Value Date Recorded Sex Assigned at Not on file Legal Sex Female 7:10 PM CDT Gender Identity Not on file Sexual Orientation Not on file documented as of this encounter Functional Status documented as of this encounter Mental Status * Question Answer Entry Date Author Status Because of a physical, mental, or emotional condition, do you have serious difficulty concentrating, remembering, or making decisions? No 04/07/2024 3:27 AM MAIKELT Nicolas Cisneros RN Active documented in this encounter Plan of Treatment Not on file documented as of this encounter Goals Goal Patient Goal Type Associated Problems Recent Progress Patient-Stated? Author Health - patient able to perform ADLs independently Lifestyle No Kole Virk i, RN documented as of this encounter Procedures Procedure Name Priority Date/Time Associated Diagnosis Comments HEMOGLOBIN, GLYCOSYLATED Routine 03/29/2024 documented in this encounter Results * HEMOGLOBIN, GLYCOSYLATED (03/29/2024) HGB A1C 15.0 % 03/29/2024 us Default History Genericprovider LABORATORY Final Result documented in this encounter Visit Diagnoses Not on filedocumented in this encounter Additional Health Concerns Infection Onset Date Last Indicated Resolved Time MRSA Comment:04/03/24 +MRSA Left axilla 04/07/24 +MRSA Left axilla 04/03/2024 04/07/2024 documented as of this encounter Care Teams Medicaid Nurse Relationship Specialty Start [place] [address] [address] PCP - General INTERNAL MEDICINE 02/22/24 07/09/24 Rosalia Garcia MD [facility] [address] [facility] [place] [address] Consulting Physician ENDOCRINOLOGY 03/29/24 documented as of this encounter
--- OUTSIDE RECORDS SUMMARY | 2024-08-13 05:40 | XMS_ITS | Encounter Summary ---
Author Organization [facility] Address [address] [place] [address]. [place] [address] [place] [address] Care Team Providers Care Terminal Operator Name Role Phone Jennifer Ramirez MD Primary Care Provider [phone] Reason for Visit * Reason Comments Wound Lt axilla * Auth/Cert (Routine) Specialty Diagnoses / Procedures Referred By Contac t Referred To Contact Diagnoses Hyperglycemia Abscess, axilla Procedures N/A Nataliia Muhammad DO 1 [place] [address] Phone: tel: fax: Referral ID Status Reason Start Date Expiration Date Visits Re quested Visits Authorized [id number] 1 1 Encounter Details Date Type Department Care Team (Late st Contact Info) Description 04/02/2024 10:13 PM CDT - 04/03/2024 12:56 PM CDT Emergency [facility] Med/Surg [address] [place] [address] Amanda Tillman PA [address] [place] [id number] Nataliia Muhammad DO 1 [place] [address] Izzy Francois NP 1 [place] [address] Wound (Lt axilla) Discharge Disposition: Left Against Medical Advice Social History Tobacco Use Types Packs/Day Years Used Date Smoking Tobacco: Some Days Cigarettes Smokeless Tobacco: Current Tobacco Cessation:Ready to Q uit: Not Asked; Counseling Given: Not Answered Alcohol Use Standard Drinks/Week Comments Not Currently 0 (1 standard drink = 0.6 oz pur e alcohol) [facility] Utilities Answer Date Recorded In the past 12 months has e [employer], [employer], oil, or water [employer] threatened to shut off services in your [...] money to buy more. Never true 04/03/20 24 Within the past 12 months, t [...] any time in the past 12 m [facility], were you homeless or living in a residential (including now)? No 04/03/2024 Comments Unknown Sex and Gender Information Value Date Recorded Sex Assigned at Not on file Legal Sex Female 7:10 PM CDT Gender Identity Not on file Sexual Orientation Not on file documented as of this encounter Last Filed Vital Signs Vital Sign Reading Time Taken Comments Blood Pressure 101/71 04/03/2024 7:39 AM CDT Pulse 87 04/03/2024 7:39 AM CDT Temperature 36.5 ??C (97.7 ??F) 04/03/2024 7:39 AM CD T Respiratory Rate 116 04/03/2024 7:39 AM CDT Oxygen Saturation 92% 04/03/2024 7:39 AM CDT Inhaled Oxygen Concentration - - Weight 54.4 kg (119 lb 15.9 oz) 04/03/2024 2:10 AM CDT Height 160 cm (5' 3 ) 04/02/2024 9:52 PM CDT Body Mass Index 21.26 04/02/2024 9:52 PM CDT documented in this encounter Functional Status * Question Answer Date of Assessment Author Status Do you have serious difficulty walking or climbing stairs? No 04/03/2024 2:00 AM CDT Arleth Castro RN Act stephanie * Question Answer Date of Assessment Author Status Do you have difficulty dressing or bathing? No 04/03/2024 2:00 AM MAIKELT Arleth Castro RN Active Because of a physical, mental, or emotional condition, do you have difficulty doing errands alone such as visiting a doctor's office or shopping? No 04/03/2024 2:00 AM MAIKELT Arleth Castro RN Acti ve * Are you deaf or do you have serious difficulty hearing Answer Date of Assessment Author Status No 04/03/2024 2:00 AM MAIKELT Arleth Castro RN Active * Are you blind or [...] difficulty concentrating, remembering, or making decisions? No 04/03/2024 2:00 AM Arleth Castillo RN Active * Because of a physical, mental, or emotional condition, do you have serious difficulty concentrating, remembering, or making decisions? Answer Entry Date Author Status No 04/03/2024 2:00 AM Arleth Castillo RN Active documented in this encounter Discharge Summaries * Izzy Francois NP - 04/03/2024 12:20 PM CDT Images from the original note were not included. Hospitalist Discharge Summary Patient ID: Madeleine Mendoza. female. 1985. Admit date: 04/02/2024 10:13 PM Discharge date and time: 04/03/24 Admitting Physician: Nataliia Muhammad DO Primary Care Physician: JENNIFER RAMIREZ MD Discharge Physician: IZZY FRANCOIS NP Dispo: AMA Discharge Diagnosis: Left axilla cellulitis with abscess Secondary diagnoses: uncontrolled IDDM hypothyroidism Hospital Course: per admitting provider H&P, Madeleine Mendoza is a 38-year-old female with past medical history of uncontrolled IDDM on insulin pump, hypothyroidism, Raynauds who presents to the EDfor the above. Patient was seen in ED 03/28 for the same was prescribed Keflex but patient did not fill at pharmacy. Patient was seen by assurance manager 03/29 and started on abx Bactrim which she states she has been taking. Infection, pain, swelling, drainage severely worsening thus presented to ED. She denies IV drug use. Luis Muhammad DO Consults: general surgery Please see below for details regarding hospitalization: Left axilla cellulitis with abscess Does not meet SIRS/sepsis criteria WBC 11 LA 1.0 Admit under observation to medical Doxycycline IV Wound culture pending General surgery consulted per ED for I&D--Dr Little recommended I&D today, however patient declined and demanded to leave AMA. Patient instructed to continue taking home Bactrim as already prescribed. Uncontrolled IDDM A1c 15! on 03/29 Turn off pump Lantus 12U + SSI while NPO Monitor and adjust as indicated Continue close outpatient follow up with [facility] Hypothyroidism Home levothyroxine AGAINST MEDICAL ADVICE The patient is demanding to be discharged at this time. She refused to proceed with I&D as recommended by general surgery and Hospitalist service and wants to return home today. I have spoken with the patient at length regarding my concern for their medical condition and that leaving the hospital at this time may not be safe. I have involved other members of the staff including nursing and col laborating physician to try and convince the patient that they should stay. At this time, the patient does demonstrate appropriate cognition and has the capacity to refuse care. Able to repeat and display understanding for proposed care/treatment. Risks have been explained and acknowledged including: Worsening infection, decline in condition, sepsis, or even . Despite discussing and acknowledging these risks, patient still chose to leave AMA. Strict return instructions discussed. Discharge Exam: Filed Vitals: 04/03/24 0148 04/03/24 0210 04/03/24 0448 04/03/24 0739 BP: 117/85 101/71 Pulse: 65 94 87 Resp: 18 (!) 116 Temp: 98.1 ??F (36.7 ??C) 97.7 ??F (36.5 ??C) TempSrc: Oral Oral SpO2: (!) 85% 100% 92% Weight: 54.4 kg (119 lb 15.9 oz) Height: Physical Exam : GENERAL: no acute distress, well nourished, well developed HEENT: mucous membranes moist RESPIRATORY: respirations even and unlabored, clear breath sounds, no wheezes, or crackles noted; on RA CARDIAC: regular rate and rhythm, no murmur, no peripheral edema GI: nontender, nondistended, bowel sounds present MUSC: ROM grossly intact NEURO: Alert, no gross deficit SKIN: Very large, larger than golf ball, abscess noted to L axilla with active purulent drainage. Erythema and edema noted to surrounding area. Significant tenderness, patient will not let me palpate LYMPH: No obvious lymphadenopathy PSYCH: Alert, appropriate Code Status: Full Code Discharge Medications: Medication List CONTINUE taking these medications Morning Afternoon Evening Bedtime As Needed Dexcom G6 Sensor Misc Dexcom G6 Transmitter Misc Omnipod 5 G6 Pods (Gen 5) Misc USE AND CHANGE EVERY 48 HOURS ASK your doctor about these medications Morning Afternoon Evening Bedtime As Needed cephALEXin 500 MG capsule Commonly known as: KEFLEX Take 1 capsule (500 mg total) by mouth 4 (four) times daily for 7 days. Signed by: Dr. Tony Conde HumaLOG 100 UNIT/ML injection (VIAL) INJECT 80 UNITS UNDER THE SKIN VIA CONTINUOUS INFUSION DAILY Last time this was given: 10 Units on April 03, 2024 9:31 AM Last time this was given: April 03, 2024 9:31 AM Generic drug: insulin lispro insulin aspart 100 UNIT/ML patient supplied PUMP Commonly known as: NOVOLOG Inject into the skin continuous. levothyroxine 100 MCG tablet Commonly known as: SYNTHROID Take 1 tablet (100 mcg total) by mouth every morning. Last time this was given: 100 mcg on April 03, 2024 9:30 AM Last time this was given: April 03, 2024 9:30 AM Disposition: AMA Discharge diet: Carb controlled Follow up with: PCP, endocrinology Followup Lab Orders None Time Spent on Discharge: greater than 35 minutes Signed: IZZY FRANCOIS NP 04/03/2024 Cosigned by Lisa Keita MD at 04/03/2024 3:46 PM CDT documented in this encounter Discharge Instructions * Attachments The following attachments cannot be sent through Care Everywhere. * Smoking: Not Just Harmful to Your Lungs and Heart (Canadian) * Vaping (Canadian) documented in this encounter Medications at Time of Discharge Continuous Glucose Sensor (DEXCOM G6 SENSOR) [facility] [place] 12/03/2023 Continuous Glucose Transmitter (DEXCOM G6 TRANSMITTER) [facility] [place] 01/07/2024 HUMALOG 100 UNIT/ML [...] Pump (OMNIPOD 5 G6 PODS, GEN 5,) [facility] USE AND CHANGE EVERY 48 HOURS 08/23/2023 levothyroxine (SYNTHROID) 100 MCG tablet Take 1 tablet (100 mcg total) by mouth every morning. cephALEXin (KEFLEX) 500 MG capsule Take 1 capsule (500 mg total) by mouth 4 (four) times daily for 7 days. 28 capsule 03/28/2024 04/04/20 24 insulin aspart (NOVOLOG) 100 UNIT/ML patient supplied PUMP Inject into the skin continuous. 04/10/20 24 documented as of this encounter Progress Notes * Lilly Sterling RN - 04/03/2024 11:30 AM CDT Problem: Pain Goal: Patient's pain/discomfort is [...] and interventions as needed. Outcome: Progressing Problem: Pain - Acute Goal: Achieve acceptable pain level Outcome: Progressing Problem: Discharge Planning Goal: Knowledge [...] Absence of new skin breakdown Outcome: Progressing * Izzy Francois NP - 04/03/2024 7:44 AM CDT Hospitalist Progress Note Subjective Patient sitting up in bed when seen and evaluated. She is hungry and wants to eat, waiting to be seen by general surgery. Continues to have purulent drainage from L axilla abscess. No CP or SOB. No N/V. Objective Blood pressure 101/71, pulse 87, temperature 97.7 ??F (36.5 ??C), temperature source Oral, resp. rate (!) 116, height 1.6 m (5' 3 ), weight 54.4 kg (119 lb 15.9 oz), SpO2 92%. Intake/Output last 3 shifts: I/O last 3 completed shifts: In: 0 Out: 580 [Urine:580] ROS negative except that noted in subjective. GENERAL: no acute distress, well nourished, well developed HEENT: mucous membranes moist RESPIRATORY: respirations even and unlabored, clear breath sounds, no wheezes, or crackles noted; on RA CARDIAC: regular rate and rhythm, no murmur, no peripheral edema GI: nontender, nondistended, bowel sounds present MUSC: ROM grossly intact NEURO: Alert, no gross deficit SKIN: Very large, larger than golf ball, abscess noted to L axilla with active purulent drainage. Erythema and edema noted to surrounding area. Significant tenderness, patient will not let me palpate LYMPH: No obvious lymphadenopathy PSYCH: Alert, appropriate Diagnostic Data No results found. Recent Labs Lab 03/28/24 1619 04/02/24 2256 NA 128* 130* K 3.6 3.5 CL 91* 96* CO2 28.5 28.4 AGAP 8.5 5.6 BUN 5* 7 CR 0.84 0.74 BUNCREATININ 6.0 9.5 GLU 764* 587* CA 8.5 8.6 Recent Labs Lab 03/28/24 1619 04/02/24 2256 WBC 11.32* 11.24* RBC 4.59 4.09* HGB 12.8 11.2* HCT 38.5 34.1* MCV 83.9 83.4 MCH 27.9 27.4 MCHC 33.2 32.8 PLT 289 434* RDW 14.1 14.5 MPV 10.5 9.7 PERNEU 84.6 78.8 PERLYM 7.2 8.9 PERMON 6.5 9.4 NEUC 9.57* 8.85* LYMC 0.82* 1.00 MONOC 0.74 1.06* EOSC 0.10 0.20 BASOC 0.03 0.07 DTYPE AUTOMATED DIFFERENTIAL AUTOMATED DIFFERENTIAL Medication: doxycycline 100 mg Intravenous Q12H insulin glargine 12 Units Subcutaneous Nightly at bedtime insulin lispro 0-16 Units Subcutaneous Q6H levothyroxine 100 mcg Oral QAM morphine, naLOXone Assessment and Plan: Left axilla cellulitis with abscess Does not meet SIRS/sepsis criteria WBC 11 LA 1.0 Admit under observation to medical Doxycycline IV Wound culture pending General surgery consulted per ED for I&D Uncontrolled IDDM A1c 15! on 03/29 Turn off pump Lantus 12U + SSI while NPO Monitor and adjust as indicated Hypothyroidism Home levothyroxine DVT proph: ambulation Code status: full Diet: NPO Dispo: home when stable DISPO: pending clinical course, general surgery rec, likely needs I&D IZZY FRANCOIS NP 04/03/2024 Cosigned by Lisa Keita MD at 04/03/2024 3:46 PM CDT * Arleth Castro RN - 04/03/2024 3:58 AM CDT Problem: Pain Goal: Patient's pain/discomfort is [...] and interventions as needed. Outcome: Progressing Problem: Pain - Acute Goal: Achieve acceptable pain level Outcome: Progressing Problem: Discharge Planning Goal: Knowledge [...] Absence of new skin breakdown Outcome: Progressing documented in this encounter H&P Notes * Nataliia Muhammad DO - 04/03/2024 1:07 AM CDT H&P ATTENDING: Nataliia Muhammad DO PRIMARY CARE PROVIDER: JENNIFER RAMIREZ MD CC: cellulitis left axilla HPI: Madeleine Mendoza is a 38-year-old female with past medical history of uncontrolled IDDM on insulin pump, hypothyroidism, Raynauds who presents to the ED for the above. Patient was seen in ED 03/28 for the same was prescribed Keflex but patient did not fill at pharmacy. Patient was seen by assurance manager 03/29 and started on abx Bactrim which she states she has been taking. Infection, pain, swelling, drainage severely worsening thus presented to ED. She denies IV drug use. Past Medical History: Diagnosis Date Diabetes mellitus ([facility]) Disease of thyroid gland Raynaud's syndrome without [...] Social Determinants of Health Financial Resource Strain: Not on file Food Insecurity: Not on file Transportation Needs: Not on file Physical Activity: Not on file Stress: Not on file Social Connections: Not on file Intimate Partner Violence: Not on file Housing Stability: Not on file No family history on file. Prior to Admission medications Medication Sig Start Date End Date Taking? Authorizing Provider cephALEXin (KEFLEX) 500 MG capsule Take 1 capsule (500 mg total) by mouth 4 (four) times daily for 7 days. 03/28/24 04/04/24 Tony Conde, DO Continuous Glucose Sensor (DEXCOM G6 SENSOR) Misc [...] Temp src Pulse Resp SpO2 Height Weight 04/03/24 0055 112/70 -- -- 72 18 99 % -- -- 04/02/24 2152 122/86 97.6 ??F (36.4 ??C) Oral (!) 110 18 100 % 1.6 m (5' 3 ) 54.4 kg (120 lb) General: ill appearing young female. Mild distress due to pain HEENT: mucous membranes moist Cardiovascular: RRR, normal S1 S2 Lungs: no respiratory distress. CTAB, no crackles, no wheezes Abd: soft, nondistended, nontender Neuro: no focal deficits MSK: moves all extremities equally Ext: no LE edema Skin: impressive abscess in left axilla with copious purulent drainage. See picture in media Psych: anxious ASSESSMENT AND PLAN: Left axilla cellulitis with abscess Does not meet SIRS/sepsis criteria WBC 11 LA 1.0 Admit under observation to medical Doxycycline IV General surgery consulted per ED for I&D Uncontrolled IDDM A1c 15! on 03/29 Turn off pump Lantus 12U + SSI while NPO Monitor and adjust as indicated Hypothyroidism Home levothyroxine DVT proph: ambulation Code status: full Diet: diabetic Dispo: home when stable Madeleine Mendoza is a 38-year-old female with PMH of uncontrolled IDDM on insulin pump, hypothyroidism, Raynauds with diagnostic evaluation notable for axilla cellulitis. Given high risk of decompensation will admit under observation due to need for further testing and monitoring. Social determinants of health impacting care include: none Discussed with ED Provider. Reviewed past records in [facility]. Advanced Care planning: I spent greater than [...] note was dictated with the use of [employer] dictation software and was proofread to the best of my ability. If you have questions or find errors, please contact me via [employer]. Thank you. Nataliia Muhammad DO 04/03/2024 1:08 AM documented in this encounter Consult Notes * Dmitri Little MD - 04/03/2024 12:56 PM CDTAssociated Order(s): IP CONSULT TO GENERAL SURGERY Date of Service: 04/03/2024 CHIEF COMPLAINT: Chief Complaint Patient presents with Wound Lt axilla HPI: .Madeleine Mendoza is a 38-year-old female with history of diabetes who presents to the hospital for evaluation of worsening left axillary swelling with purulent drainage occurring a few days ago. Oral antibiotics was prescribed without resolution. She denies fevers chills or sweats. A 2-1/2 x 4.2cm left axillary abscess identified. PMH: Past Medical History: Diagnosis Date Diabetes mellitus ([facility]/H[facility]) Disease of thyroid gland Raynaud's syndrome without gangrene PSH: Past Surgical History: Procedure Laterality Date TUBAL LIGATION MEDS: Current: doxycycline 100 mg Intravenous Q12H insulin glargine 12 Units Subcutaneous Nightly at bedtime insulin lispro 0-16 Units Subcutaneous Q6H levothyroxine 100 mcg Oral QAM potassium chloride 40 mEq Intravenous Once Prior to Admission medications Medication Sig Start Date End Date Taking? Authorizing Provider cephALEXin (KEFLEX) 500 MG capsule Take 1 capsule (500 mg total) by mouth 4 (four) times daily for 7 days. 03/28/24 04/04/24 Tony Conde DO Continuous Glucose Sensor (DEXCOM G6 SENSOR) Misc [...] by mouth every morning. Default History Genericprovider No Known Allergies Social History Socioeconomic History Marital status: Single [...] and are negative. PHYSICAL EXAM: Temp (24hrs), Av.7 ??F (36.5 ??C), Min:97.3 ??F (36.3 ??C), Max:98.1 ??F (36.7 ??C) Vitals: 04/03/24 0739 BP: 101/71 Pulse: 87 Resp: (!) 116 Temp: 97.7 ??F (36.5 ??C) SpO2: 92% Body mass index is 21.26 kg/m??. Physical Exam Vitals reviewed. HENT: Head: Normocephalic. Eyes: Conjunctiva/sclera: Conjunctivae normal. Pulmonary: Effort: Pulmonary effort is normal. Musculoskeletal: Comments: Left axilla examined with RN armhole presser at bedside Large 5x 5 cm abscess with expressible copious purulent drainage with overlying skin necrosis and severe inflammatory changes identified Skin: General: Skin is warm. Neurological: Mental Status: She is alert and oriented to person, place, and time. LABS: Labs: Lab Results Component Value Date NA 134 (L) 04/03/2024 K 3.2 (L) 04/03/2024 CL 100 04/03/2024 CO2 28.4 04/03/2024 AGAP 5.6 04/03/2024 BUN 6 (L) 04/03/2024 CR 0.35 (L) 04/03/2024 CR 0.74 04/02/2024 CR 0.84 03/28/2024 GLU 254 (H) 04/03/2024 CA 8.3 (L) 04/03/2024 Lab Results Component Value Date WBC 10.16 04/03/2024 WBC 11.24 (H) 04/02/2024 WBC 11.32 (H) 03/28/2024 HGB 10.7 (L) 04/03/2024 HGB 11.2 (L) 04/02/2024 HGB 12.8 03/28/2024 PLT 388 04/03/2024 PLT 434 (H) 04/02/2024 PLT 289 03/28/2024 Lab Results Component Value Date ALT 11 [...] Abscess, axilla SNOMED CT(R): ABSCESS OF AXILLA Recommendation for incision and drainage of left axillary abscess and debridement of overlying skinsevere inflammatory and necrotic findings was made Patient had reservations of the procedure and stated that due to her diabetes she believes that shewould not heal from this wound. I have tried reassuring her that it is of absolute necessity that drainage occur and that the necessary debridement of the overlying skin which is clearly nonviable beperformed as this can continue to fester and infection will persist despite antibiotic therapy . The resulting wound will require diligent wound care with daily packing and allowing for it to heal bysecondary intent. Despite my reassurances patient wished to leave AGAINST MEDICAL ADVICE and however did acknowledge understanding of the above. She stated she wishes additional time to decide. 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 Operating team which was notified earlier and scheduled for the incision and drainage to be performed today was canceled Kvng Little M.D. General Surgery 04/03/2024 documented in this encounter Nursing Notes * Lilly Sterling RN - 04/03/2024 12:58 PM CDT Patient left floor against medical advice. (AMA) AMA form printed and signed by patient and this nurse.Risks of leaving and benefits of staying reviewed with patient. Patient having no questions or concerns. Peripheral IV removed. Vitals within normal limits. Patient left floor in stable condition. documented in this encounter ED Notes * LIZZY Riddle - 04/03/2024 12:54 AM CDT [place], [place] EMERGENCY DEPARTMENT ENCOUNTER HISTORICAL INFORMATION Primary Care Doctor: JENNIFER RAMIREZ MD Patient information was obtained primarily from the patient, nursing notes. History/Exam limitations: None Provider at Bedside Date/Time Event User Comments 04/02/24 9376 Provider at Bedside Assessing Patient AMANDA TILLMAN -- CHIEF COMPLAINT Wound (Lt axilla) Chief Complaint Patient presents with Wound Lt axilla HPI Madeleine Mendoza is a 38-year-old female who presents with an abscess to her L axilla that has been worsening. States she was here on 03/28 and received keflex which she was taking. 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 States the abscess is getting bigger and more painful, and today it started draining. She denies any fevers. PAST MEDICAL HISTORY Past Medical History: Diagnosis Date Diabetes mellitus ([facility]) Disease of thyroid gland Raynaud's syndrome without gangrene SURGICAL HISTORY Past Surgical History: Procedure Laterality Date TUBAL LIGATION CURRENT MEDICATIONS Current Facility-Administered Medications: doxycycline hyclate (VIBRAMYCIN) 100 mg in sodium chloride 0.9 % 100 mL IVPB, 100 mg, Intravenous, Once, LIZZY Riddle, Last Rate: 100 mL/hr at 04/03/2446, 100 mg at 04/03/2446 doxycycline hyclate (VIBRAMYCIN) 100 mg in sodium chloride 0.9 % 100 mL IVPB, 100 mg, Intravenous, Q12H, Nataliia Muhammad, DO insulin glargine (LANTUS) injection 12 Units, 12 Units, Subcutaneous, Nightly at bedtime, Nataliia Muhammad DO insulin lispro (HUMALOG/ADMELOG) injection 0-16 Units, 0-16 Units, Subcutaneous, TID AC AND insulin lispro (HUMALOG/ADMELOG) injection 0-8 Units, 0-8 Units, Subcutaneous, Nightly at bedtime, Yrn Muhammad DO insulin lispro (HUMALOG/ADMELOG) injection 5 Units, 5 Units, Subcutaneous, TID WC, Nataliia Muhammad DO lactated ringers bolus infusion 1,000 mL, 1,000 mL, Intravenous, Once, Nataliia Muhammad DO levothyroxine (SYNTHROID) tablet 100 mcg, 100 mcg, Oral, QAM, Nataliia Muhammad, DO Current Outpatient Medications: cephALEXin (KEFLEX) 500 MG capsule, Take 1 capsule (500 mg total) by mouth 4 (four) times daily for7 days., Disp: 28 capsule, Rfl: 0 Continuous Glucose Sensor (DEXCOM G6 SENSOR) Misc, [...] Drug use: Never Sexual activity: Not Currently REVIEW OF SYMPTOMS provided by: Patient General: No chills, fever, fatigue. Skin: + abscesses Physical Exam VITAL SIGNS: Filed Vitals: 04/02/24 2152 04/03/24 0055 BP: 122/86 112/70 Pulse: (!) 110 72 Resp: 18 18 Temp: 97.6 ??F (36.4 ??C) TempSrc: Oral SpO2: 100% 99% Weight: 54.4 kg (120 lb) Height: 1.6 m (5' 3 ) General: Awake and alert. Well nourished. Non-toxic appearing. No acute distress Head: Normocephalic. Atraumatic. Skin: Warm, dry. Good skin turgor. Very large, larger than golf ball, abscess noted to L axilla with active purulent drainage. Erythema and edema noted to surrounding area. Significant tenderness, patient will not let me palpate. Eyes: Sclera normal. Conjunctiva normal. Lids and [...] normal. Mood/affect: mood/affect normal. Behavior normal. LABORATORY Results for orders placed or performed during the hospital encounter of 04/02/24 CBC W/DIFF AUTOMATED Result Value Ref Range WBC 11.24 (H) 4.5 - 11.0 x10'3/uL RBC 4.09 (L) 4.20 - 5.40 x10'6/uL HGB 11.2 (L) 12.0 - 16.0 G/DL HCT 34.1 (L) 38.0 - 48.0 % MCV 83.4 81.0 - 99.0 FL MCH 27.4 27.0 - 31.0 PG MCHC 32.8 32.0 - 36.0 G/DL RDW 14.5 11.5 - 14.5 % PLT 434 (H) 130 - 400 x10'3/uL MPV 9.7 9.3 - 12.2 FL DIFFERENTIAL TYPE AUTOMATED DIFFERENTIAL NEUTROPHILS % 78.8 % LYMPHOCYTES % 8.9 % MONOCYTES % 9.4 % EOSINOPHILS 1.8 % BASOPHILS 0.6 % IMMATURE GRANS % 0.5 % ABS. NEUTROPHILS 8.85 (H) 1.80 - 7.70 x10'3/uL ABS. LYMPHOCYTES 1.00 1.00 - 4.80 x10'3/uL ABS. MONOCYTES 1.06 (H) 0.24 - 0.86 x10'3/uL ABS. EOSINOPHILS 0.20 0.04 - 0.36 x10'3/uL ABS. BASOPHILS 0.07 0.01 - 0.08 x10'3/uL ABS. IMMATURE GRANULOCYTES 0.06 0.00 - 0.49 x10'3/uL BASIC METABOLIC PANEL Result Value Ref Range GLUCOSE 587 (HH) 70 - 99 MG/DL BUN 7 7 - 18 MG/DL CREATININE S/P/B 0.74 0.55 - 1.02 MG/DL SODIUM S/P/B 130 (L) 136 - 145 MMOL/L POTASSIUM S/P/B 3.5 3.5 - 5.1 MMOL/L CHLORIDE S/P/B 96 (L) 97 - 115 MMOL/L CO2 28.4 21 - 32 MMOL/L CALCIUM S/P/B 8.6 8.5 - 10.1 MG/DL ANION GAP 5.6 2 - 10 MMOL/L BUN CREATININE RATIO 9.5 6 - 26 GFR ESTIMATE >90 >90 ML/MIN/1.73 M2 LACTIC ACID W REFLEX (SEPSIS) Result Value Ref Range LACTIC ACID VENOUS 1.0 0.4 - 2.0 MMOL/L PREG TEST SERUM (HCG QUALITATIVE) Result Value Ref Range PREG SCREEN-SERUM NEGATIVE MDM ED Course as of 04/03/24 0133 Robinson Apr 02, 2024 2326 WBC(!): 11.24 [AP] 2338 LACTIC ACID VENOUS: 1.0 [AP] 2344 GLUCOSE(!!): 587 [AP] 2344 ANION GAP: 5.6 [AP] 2344 POTASSIUM S/P/B: 3.5 [AP] 2344 SODIUM S/P/B(!): 130 [AP] Mon Apr 03, 2024 0034 Consulted general surgery regarding patient [AP] 0054 General surgery consulted. Hospitalist consulted [AP] 0100 Dr. Muhammad accepted patient for admission [AP] ED Course User Index [AP] LIZZY Riddle Amount and/or Complexity of Data Reviewed Source of information/historian: Patient Clinical lab tests: I interpreted all labs ordered/resulted and reviewed these with the patient/patient's guardian. Review of internal medical records with patient's permission Discussed interpretation of labs/images and management with external provider: Dr. Chen, general surgery; Dr. Muhammad, hospitalist Impression/Disposition SNOMED CT(R) 1. Abscess, axilla ABSCESS OF AXILLA 2. Hyperglycemia HYPERGLYCEMIA Disposition: Admit Medications doxycycline hyclate (VIBRAMYCIN) 100 mg in sodium chloride 0.9 % 100 mL IVPB (100 mg Intravenous New Bag 04/03/2446) levothyroxine (SYNTHROID) tablet 100 mcg (has no administration in time range) lactated ringers bolus infusion 1,000 mL (has no administration in time range) insulin lispro (HUMALOG/ADMELOG) injection 0-16 Units (has no administration in time range) And insulin lispro (HUMALOG/ADMELOG) injection 0-8 Units (has no administration in time range) insulin glargine (LANTUS) injection 12 Units (has no administration in time range) doxycycline hyclate (VIBRAMYCIN) 100 mg in sodium chloride 0.9 % 100 mL IVPB (has no administrationin time range) insulin lispro (HUMALOG/ADMELOG) injection 5 Units (has no administration in time range) insulin regular (NOVOLIN R/HUMULIN R) injection 4 Units (4 Units Intravenous Given 04/03/2445) HYDROmorphone (DILAUDID) injection 1 mg (1 mg Intravenous Given 04/03/24 0047) Current Discharge Medication List LIZZY RIDDLE Disclaimer: Portions of this note were created using Nival, a speech recognition software. Occasional wrong word or sound alike substitutions may have occurred due to the inherent limitations of voice recognition software. Please read the note carefully and use context to recognize when substitutions may have occurred. LIZZY Riddle 04/03/24 0133 Cosigned by Carrie Baig MD at 04/03/2024 5:16 AM CDT * Sandra Andre RN - 04/02/2024 9:58 PM CDT Pt c/o cellulitis in Lt axilla x2 weeks. Pt states there was a cyst that ruptured this AM at about 0730 this AM and is currently leaking brownish-green fluid with warmth around axilla. Pt is on abxcurrently. documented in this encounter Plan of Treatment Not on file documented as of this encounter Procedures Procedure Name Priority Date/Time Associated Diagnosis Comments POCT GLUCOSE - HAMILTON DOCKED DEVICE Routine 04/03/2024 9:07 AM CDT BASIC METABOLIC PANEL STAT 04/03/2024 8:16 AM CDT CBC W/DIFF AUTOMATED STAT 04/03/2024 8:16 AM CDT POCT GLUCOSE - HAMILTON DOCKED DEVICE Routine 04/03/2024 6:35 AM CDT DRUG SCREEN RAPID Routine 04/03/2024 4:4 1 AM CDT POCT GLUCOSE - HAMILTON DOCKED DEVICE Routine 04/03/2024 2:02 AM CDT HC BODY FLUID CULTURE STAT 04/03/2024 1:07 AM CDT LACTIC ACID W REFLEX (SEPSIS) STAT 04/02/2024 10:56 PM CDT BASIC METABOLIC PANEL STAT 04/02/2024 10:56 PM CDT CBC W/DIFF AUTOMATED STAT 04/02/2024 10:56 PM CDT CHORIONIC GONADOTROPIN HCG QL Routine 04/02/2024 3:23 PM CDT documented in this encounter Results * (ABNORMAL) POCT glucose (04/03/2024 9:07 AM CDT) GLUCOSE POC 270(H) 70 - 99 mg/dL 04/03/2024 9:09 AM CDT [facility] 04/03/2024 9:07 AM CDT Izzy Francois NP POCT ORDERABLES - DEVICE Traci miranda Result [facility] [address] [place] [address], [place] [phone] * (ABNORMAL) BASIC METABOLIC PANEL (04/03/2024 8:16 AM CDT) GLUCOSE 254(H) 70 - 99 MG/DL 04/03/2024 8:54 AM CDT [facility] BUN 6(L) 7 - 18 MG/DL 04/03/2024 8:54 AM CDT [facility] CREATININE S/P/B 0.35(L) 0.55 - 1.02 MG/DL 04/03/2024 8:54 AM CDT [facility] SODIUM S/P/B 134(L) 136 - 145 MMOL/L 04/03/2024 8:54 AM CDT [facility] POTASSIUM S/P/B 3.2(L) 3.5 - 5.1 MMOL/L 04/03/2024 8:54 AM CDT [facility] CHLORIDE S/P/B 100 97 - 115 MMOL/L 04/03/2024 8:54 AM CDT [facility] CO2 28.4 21 - 32 MMOL/L 04/03/2024 8:54 AM CDT [facility] CALCIUM S/P/B 8.3(L) 8.5 - 10.1 MG/DL 04/03/2024 8:54 AM CDT [facility] ANION GAP 5.6 2 - 10 MMOL/L 04/03/2024 8:54 AM CDT [facility] BUN CREATININE RATIO 17.3 6 - 26 04/03/2024 8:54 AM CDT [facility] GFR ESTIMATE >90 >90 ML/MIN/1.7 3 M2 04/03/2024 8:54 AM CDT [facility] Comment: NOTE: eGFR is not calculated for patients <18 years of age or gender unknown. This is an estimated GFR calculation using the new CKD EPI creatinine equation without race and so does not require a correction factor for race. This estimated GFR should not be used for calculating drug doses. 04/03/2024 8:16 AM CDT us Izzy Francois NP LABORATORY Final Result [facility] [address] [place] [address], [place] [phone] * (ABNORMAL) CBC W/DIFF AUTOMATED (04/03/2024 8:16 AM CDT) WBC 10.16 4.5 - 11.0 x10'3/uL 04/03/2024 8:38 AM CDT [facility] RBC 3.84(L) 4.20 - 5.40 x10'6/uL 04/03/2024 8:38 AM CDT [facility] HGB 10.7(L) 12.0 - 16.0 G/DL 04/03/2024 8:38 AM CDT [facility] HCT 32.1(L) 38.0 - 48.0 % 04/03/2024 8:38 AM CDT [facility] MCV 83.6 81.0 - 99.0 FL 04/03/2024 8:38 AM CDT [facility] MCH 27.9 27.0 - 31.0 PG 04/03/2024 8:38 AM CDT [facility] MCHC 33.3 32.0 - 36.0 G/DL 04/03/2024 8:38 AM CDT [facility] RDW 14.5 11.5 - 14.5 % 04/03/2024 8:38 AM T [facility] PLT 388 130 - 400 x10'3/uL 04/03/2024 8:38 AM T [facility] MPV 9.3 9.3 - 12.2 FL 04/03/2024 8:38 AM CDT [facility] DIFFERENTIAL TYPE AUTOMATED DIFFERENTIAL 04/03/2024 8:38 AM CDT [facility] NEUTROPHILS % 69.7 % 04/03/2024 8:38 AM CDT [facility] LYMPHOCYTES % 16.0 % 04/03/2024 8:38 AM CDT [facility] MONOCYTES % 10.0 % 04/03/2024 8:38 AM CDT [facility] EOSINOPHILS 3.2 % 04/03/2024 8:38 AM CDT [facility] BASOPHILS 0.5 % 04/03/2024 8:38 AM CDT [facility] IMMATURE GRANS % 0.6 % 04/03/20 8:38 AM CDT [facility] ABS. NEUTROPHILS 7.07 1.80 - 7.70 x10'3/uL 04/03/2024 8:38 AM CDT [facility] ABS. LYMPHOCYTES 1.63 1.00 - 4.80 x10'3/uL 04/03/2024 8:38 AM CDT [facility] ABS. MONOCYTES 1.02(H) 0.24 - 0.86 x10'3/uL 04/03/2024 8:38 AM CDT [facility] ABS. EOSINOPHILS 0.33 0.04 - 0.36 x10'3/uL 04/03/2024 8:38 AM CDT [facility] ABS. BASOPHILS 0.05 0.01 - 0.08 x10'3/uL 04/03/2024 8:38 AM CDT [facility] ABS. IMMATURE GRANULOCYTES 0.06 0.00 - 0.49 x10'3/uL 04/03/2024 8:38 AM CDT [facility] 04/03/2024 8:16 AM CDT us Izzy Francois NP LABORATORY Final Result [facility] [address] [place] [address], * (ABNORMAL) POCT glucose (04/03/2024 6:35 AM CDT) [facility] Signature GLUCOSE POC 244(H) 70 - 99 mg/dL 04/03/2024 6:58 AM CDT [facility] 04/03/2024 6:35 AM CDT Izzy Wilfredo Francois DIRECTOR OF CLINICAL TRIALS POCT ORDERABLES - DEVICE Traci miranda Result [facility] [address] [place] [address], * (ABNORMAL) DRUG SCREEN RAPID (04/03/2024 4:41 AM CDT) Pathologist [facility] AMPHETAMINE (U) POSITIVE(A) NEGATIVE 04/03/20 5:06 AM CDT [facility] BARBITURATES SCREEN (U) NEGATIVE NEGATIVE 04/03/2024 5:06 AM CDT [facility] BENZODIAZEPINES SCREEN (U) NEGATIVE NEGATIVE 04/03/2024 5:06 AM CDT [facility] CANNABINOIDS SCREEN (U) NEGATIVE NEGATIVE 04/03/2024 5:06 AM CDT [facility] COCAINE METABOLITES (U) NEGATIVE NEGATIVE 04/03/2024 5:06 AM CDT [facility] METHADONE (U) NEGATIVE NEGATIVE 04/03/2024 5:06 AM CDT [facility] OPIATE SCREEN (U) POSITIVE(A) NEGATIVE 2023 5:06 AM CDT [facility] PHENCYCLIDINE PCP (U) NEGATIVE NEGATIVE 04/03/2024 5:06 AM CDT [facility] Comment: NOTE: RESULTS OF THIS DRUG SCREEN SHOULD BE USED FOR MEDICAL PURPOSES ONLY AND NOT FOR LEGAL OR EMPLOYMENT PURPOSES. POSITIVE RESULTS ARE NOT CONFIRMED. MEDICATIONS CONTAINING EPHEDRINE MAY CAUSE FALSE POSITIVE AMPHETAMINE CALL [phone], LAB, TO REQUEST CONFIRMATION TESTING. IF CREATININE IS <40 mg/dL. ??RECOLLECTION IS SUGGESTED. AMPHETAMINE- ?500 NG/ML BARBITURATE- ?200 NG/ML BENZODIAZEPINES- ??200 NG/ML THC- ? 50 NG/ML COCAINE- ?150 NG/ML METHADONE- ?300 NG/ML OPIATE- ? 300 MG/ML PCP- ? 25 NG/ML CREATININE (U) 28.3 28 - 217 MG/DL 04/03/2024 5:06 AM CDT [facility] URINE SPECIMEN / Unknown 04/03/2024 4:41 AM CDT Nataliia Muhammad DO URINE ORDERABLES Final Resul t Performing Organization Address [facility] Co de Phone Number [facility] [address] [place] [address], * (ABNORMAL) POCT glucose (04/03/2024 2:02 AM CDT) GLUCOSE POC 388(H) 70 - 99 mg/dL 04/03/2024 2:05 AM CDT [facility] 04/03/2024 2:02 AM CDT Nataliia Muhammad DO POCT ORDERABLES - DEVICE Fin al Result Performing Organization Address [facility] [place] [address], * (ABNORMAL) CULTURE, WOUND, W/GRAM STAIN (04/03/2024 1:07 AM CDT) SPEC DESCRIPTION AXILLA, LEFT 04/03/2024 1:06 AM CDT [facility] SPECIAL REQUESTS NO SPECIAL REQUEST 04/03/2024 1:06 AM CDT [facility] GRAM STAIN RESULT RARE WHITE BLOOD CELLS SEEN 04/04/2024 9:57 AM CDT [facility] GRAM STAIN RESULT FEW GRAM POSITIVE COCCI 04/04/2024 9:57 AM CDT [facility] CULTURE RESULT HEAVY GROWTH OF METHICILLIN RESISTANT STAPHYLOCOCCUS AUREUS FOLLOW ISOLATION PROTOCOL. (AA) 04/06/2024 7:37 AM CDT [facility] CULTURE RESULT NOTE: WOUND AND TISSUE CULTURES ARE ROUTINELY SCREENED FOR AEROBIC ORGANISMS ONLY. 04/06/2024 7:37 AM CDT [facility] STRUCTURE OF LEFT AXILLARY REGION / Unknown 04/03/2024 1:07 AM CDT 04/03/2024 1:19 AM CDT Narrative Organism Antibiotic Method Susceptibility Methicillin resistant staphylococcus aureus CLINDAMYCIN REYNA (VITEK) >=8: Resistant Methicillin resistant staphylococcus aureus ERYTHROMYCIN REYNA (VITEK) >=8: Resistant Methicillin resistant staphylococcus aureus OXACILLIN REYNA (VITEK) >=4: Resistant Methicillin resistant staphylococcus aureus TRIMETH-SULFAMETH. REYNA (VITEK) >=320: Resistant Methicillin resistant staphylococcus aureus TETRACYCLINE REYNA (VITEK) <=1: Sensitive Methicillin resistant staphylococcus aureus VANCOMYCIN REYNA (VITEK) 1: Sensitive Amanda BALL MICROBIOLOGY - GENERAL ORDERAB LES Final Result [facility] [address] [place] [address], [place] [phone] * LACTIC ACID W REFLEX (SEPSIS) (04/02/2024 10:56 PM CDT) LACTIC ACID VENOUS 1.0 0.4 - 2.0 MMOL/L 04/02/2024 11:35 PM CDT [facility] 04/02/2024 10:5 6 PM CDT us Amanda BALL LABORATORY Final Result [facility] [address] [place] [address], * (ABNORMAL) BASIC METABOLIC PANEL (04/02/2024 10:56 PM CDT) GLUCOSE 587(HH) 70 - 99 MG/DL 04/02/2024 11:43 PM CDT [facility] Comment: Critical Result(s) Called at: 23:42:03 on 04/02/2024 by: GODFREY CROWE to and read back by:BERNARDA CLAUDIO BUN 7 7 - 18 MG/DL 04/02/2024 11:43 PM CDT [facility] CREATININE S/P/B 0.74 0.55 - 1.02 MG/DL 04/02/2024 11:43 PM CDT [facility] SODIUM S/P/B 130(L) 136 - 145 MMOL/L 04/02/2024 11:43 PM CDT [facility] POTASSIUM S/P/B 3.5 3.5 - 5.1 MMOL/L 04/02/2024 11:43 PM CDT [facility] CHLORIDE S/P/B 96(L) 97 - 115 MMOL/L 04/02/2024 11:43 PM CDT [facility] CO2 28.4 21 - 32 MMOL/L 04/02/2024 11:43 PM CDT [facility] CALCIUM S/P/B 8.6 8.5 - 10.1 MG/DL 04/02/2024 11:43 PM CDT [facility] ANION GAP 5.6 2 - 10 MMOL/L 04/02/2024 11:43 PM CDT [facility] BUN CREATININE RATIO 9.5 6 - 26 04/02/2024 11:43 PM CDT [facility] GFR ESTIMATE >90 >90 ML/MIN/1.7 3 M2 04/02/2024 11:43 PM CDT [facility] Comment: NOTE: eGFR is not calculated for patients <18 years of age or gender unknown. This is an estimated GFR calculation using the new CKD EPI creatinine equation without race and so does not require a correction factor for race. This estimated GFR should not be used for calculating drug doses. 04/02/2024 10:5 6 PM CDT us Amanda BALL LABORATORY Final Result [facility] [address] [place] [address], [place] [phone] * (ABNORMAL) CBC W/DIFF AUTOMATED (04/02/2024 10:56 PM CDT) WBC 11.24(H) 4.5 - 11.0 x10'3/uL 04/02/2024 11:13 PM CDT [facility] RBC 4.09(L) 4.20 - 5.40 x10'6/uL 04/02/2024 11:13 PM CDT [facility] HGB 11.2(L) 12.0 - 16.0 G/DL 04/02/2024 11:13 PM CDT [facility] HCT 34.1(L) 38.0 - 48.0 % 04/02/2024 11:13 PM CDT [facility] MCV 83.4 81.0 - 99.0 FL 04/02/2024 11:13 PM CDT [facility] MCH 27.4 27.0 - 31.0 PG 04/02/2024 11:13 PM CDT [facility] MCHC 32.8 32.0 - 36.0 G/DL 04/02/2024 11:13 PM CDT [facility] RDW 14.5 11.5 - 14.5 % 04/02/2024 11:13 PM CDT [facility] PLT 434(H) 130 - 400 x10'3/uL 04/02/2024 11:13 PM CDT [facility] MPV 9.7 9.3 - 12.2 FL 04/02/2024 11:13 PM CDT [facility] DIFFERENTIAL TYPE AUTOMATED DIFFERENTIAL 04/02/2024 11:13 PM CDT [facility] NEUTROPHILS % 78.8 % 04/02/2024 11:13 PM CDT [facility] LYMPHOCYTES % 8.9 % 04/02/2024 11:13 PM CDT [facility] MONOCYTES % 9.4 % 04/02/2024 11:13 PM CDT [facility] EOSINOPHILS 1.8 % 04/02/2024 11:13 PM CDT [facility] BASOPHILS 0.6 % 04/02/2024 11:13 PM CDT [facility] IMMATURE GRANS % 0.5 % 04/02/20 11:13 PM CDT [facility] ABS. NEUTROPHILS 8.85(H) 1.80 - 7.70 x10'3/uL 04/02/2024 11:13 PM CDT [facility] ABS. LYMPHOCYTES 1.00 1.00 - 4.80 x10'3/uL 04/02/2024 11:13 PM CDT [facility] ABS. MONOCYTES 1.06(H) 0.24 - 0.86 x10'3/uL 04/02/2024 11:13 PM CDT [facility] ABS. EOSINOPHILS 0.20 0.04 - 0.36 x10'3/uL 04/02/2024 11:13 PM CDT [facility] ABS. BASOPHILS 0.07 0.01 - 0.08 x10'3/uL 04/02/2024 11:13 PM CDT [facility] ABS. IMMATURE GRANULOCYTES 0.06 0.00 - 0.49 x10'3/uL 04/02/2024 11:13 PM CDT [facility] 04/02/2024 10:5 6 PM CDT Amanda BALL LABORATORY Final Result [facility] [address] [place] [address], [place] [phone] * PREG TEST SERUM (HCG QUALITATIVE) (04/02/2024 3:23 PM CDT) PREG SCREEN-SERUM NEGATIVE 04/03/2024 1:18 AM CDT [facility] 04/02/2024 3:23 PM CDT Nataliia Muhammad DO LABORATORY Final Result [facility] [address] [place] [id number], [place] [phone] documented in this encounter Visit Diagnoses Diagnosis Abscess, axilla- Primary Cellulitis and abscess of upper arm and forearm Abscess, axilla Cellulitis and abscess of upper arm and forearm Hyperglycemia Other abnormal glucose documented in this [...] at 100 mL/hr, Once, 1 dose, On Wed04/03/24 at 0045 New Bag 04/03/2024 12:47 AM CDT 100 mg 100 mL/hr doxycycline hyclate (VIBRAMYCIN) 100 mg in sodium chloride 0.9 % 100 mL IVPB 100 mg, Intravenous, at 100 mL/hr, Every 12 hours, First dose on Wed04/03/24 at 1200, Until Discontinued HYDROmorphone (DILAUDID) injection 1 mg 1 mg, Intravenous, Once, 1 dose, On Wed04/03/24 at 0045, Administer slowly over at least 2-3 minutes. Given 04/03/2024 12:47 AM CDT 1 mg insulin glargine (LANTUS) injection 12 Units 12 Units, Subcutaneous, Nightly at bedtime, First dose on Wed04/03/24 at 0115, Until Discontinued Given 04/03/2024 2:45 AM CDT 12 Units Left Upper Abdomen insulin lispro (HUMALOG/ADMELOG) injection 0-16 Units 0-16 Units, Subcutaneous, Every 6 hours, First dose on Wed04/03/24 at 0330, Until Discontinued, Blood Glucose (USUAL Dosing): [Less than 70:?Initiate Hypoglycemia Standing Orders] [71-140:? 0 units] [141-180:? 4 units] [181-220:? 6 units] [221-260:? 8 units] [261-300:?? 10 units] [301-350:?? 12 units] [351-400:?14 units] [Greater than 400:?16 units and Call Physician] Given 04/03/2024 9:31 AM CDT 10 Units Right Arm insulin lispro (HUMALOG/ADMELOG) injection 0-8 Units 0-8 Units, Subcutaneous, Nightly at bedtime, First dose on Wed04/03/24 at 0115, Until Discontinued, Blood Glucose (USUAL Dosing): [Less than 70:? Initiate Hypoglycemia Standing Orders] [71-180:? 0 units] [181-220:? 3 units] [221-260:? 4 units] [261-300:? 5 units] [301-350:? 6 units] [351-400:? 7 units] [Greater than 400:? 8 units and Call Physician] Given 04/03/2024 2:43 AM CDT 7 Units Left Lower Abdomen insulin regular (NOVOLIN R/HUMULIN R) injection 4 Units 4 Units, Intravenous, Once, 1 dose, On Wed04/03/24 at 0000, For sliding scale, activate Sliding Scale Insulin order set. Given 04/03/2024 12:46 AM CDT 4 Units lactated ringers bolus infusion 1,000 mL 1,000 mL, Intravenous, Administer over 60 Minutes, Once, 1 dose, On Wed04/03/24 at 0115 New Bag 04/03/2024 2:45 AM CDT 1,000 mLs 1000 mL/hr levothyroxine (SYNTHROID) tablet 100 mcg 100 mcg, Oral, Every morning, First dose on Wed04/03/24 at 0700, Until Discontinued, Avoid iron, calcium, and antacids within 4 hours of administration. Given 04/03/2024 9:30 AM CDT 100 mcg morphine injection 2 mg 2 mg, Intravenous, Every 4 hours PRN, Severe pain (Scale 8 - 10), Starting on Wed04/03/24 at 0254, Until Wed04/03/24 at 1501 naLOXone (NARCAN) injection 0.4 mg 0.4 mg, Intravenous, As needed, Opioid reversal, Starting on Wed04/03/24 at 0254, Until Wed04/03/24 at 1501 potassium chloride CR (K-TAB) tablet 40 mEq 40 mEq, Oral, Once, 1 dose, On Wed04/03/24 at 1215, Do not break, chew, or crush. Given 04/03/2024 12:49 PM CDT 40 mEq documented in this encounter Active and Recently Administered Medications Times are shown in CDT. Scheduled Medication Order 04/01/2024 04/02/2024 04/03/2024 doxycycline hyclate (VIBRAMYCIN) 100 mg in sodium chloride 0.9 % 100 mL IVPB (COMPLETED) 100 mg, Intravenous, at 100 mL/hr, Once, 1 dose, On Wed04/03/24 at 0045 0047 (New Bag - Prov ider: Guera Tolentino RN)[id number] (Infusion Stop Time - Provider: Arleth Castro RN) doxycycline hyclate (VIBRAMYCIN) 100 mg in sodium chloride 0.9 % 100 mL IVPB 100 mg, Intravenous, at 100 mL/hr, Every 12 hours, First dose on Wed04/03/24 at 1200, Until Discontinued 1148 (Hold - Provide r: Lilly Sterling RN - Reason: Other - Comment: patient to be discharging on oral abx) HYDROmorphone (DILAUDID) injection 1 mg (COMPLETED) 1 mg, Intravenous, Once, 1 dose, On Wed04/03/24 at 0045, Administer slowly over at least 2-3 minutes. 0047 (Given - Provid er: Guera Tolentino RN) insulin glargine (LANTUS) injection 12 Units 12 Units, Subcutaneous, Nightly at bedtime, First dose on Wed04/03/24 at 0115, Until Discontinued 0245 (Given - Provid er: Arleth Castro RN) insulin lispro (HUMALOG/ADMELOG) injection 0-16 Units 0-16 Units, Subcutaneous, Every 6 hours, First dose on Wed04/03/24 at 0330, Until Discontinued, Blood Glucose (USUAL Dosing): [Less than 70:?Initiate Hypoglycemia Standing Orders] [71-140:? 0 units] [141-180:? 4 units] [181-220:? 6 units] [221-260:? 8 units] [261-300:?? 10 units] [301-350:?? 12 units] [351-400:?14 units] [Greater than 400:?16 units and Call Physician] 0403 (Not Given - Pr ovider: Arleth Castro RN - Reason: Patient already took - Comment: Given at 0243)0931 (Given - Provider: Lilly Sterling RN) insulin lispro (HUMALOG/ADMELOG) injection 0-8 Units (CANCELED)(Linked Group 1) 0-8 Units, Subcutaneous, Nightly at bedtime, First dose on Wed04/03/24 at 0115, Until Discontinued, Blood Glucose (USUAL Dosing): [Less than 70:? Initiate Hypoglycemia Standing Orders] [71-180:? 0 units] [181-220:? 3 units] [221-260:? 4 units] [261-300:? 5 units] [301-350:? 6 units] [351-400:? 7 units] [Greater than 400:? 8 units and Call Physician] 0243 (Given - Provid er: Arleth Castro RN) insulin regular (NOVOLIN R/HUMULIN R) injection 4 Units (COMPLETED) 4 Units, Intravenous, Once, 1 dose, On Wed04/03/24 at 0000, For sliding scale, activate Sliding Scale Insulin order set. 0046 (Given - Provid er: Guera Tolentino RN) lactated ringers bolus infusion 1,000 mL (COMPLETED) 1,000 mL, Intravenous, Administer over 60 Minutes, Once, 1 dose, On Wed04/03/24 at 0115 0245 (New Bag - Prov ider: Arleth Castro RN)0345 (Infusion Stop Time - Provider: Arleth Castro RN) levothyroxine (SYNTHROID) tablet 100 mcg 100 mcg, Oral, Every morning, First dose on Wed04/03/24 at 0700, Until Discontinued, Avoid iron, calcium, and antacids within 4 hours of administration. 0930 (Given - Provid er: Lilly Sterling RN) potassium chloride 40 mEq in sodium chloride 0.9 % 500 mL IV Infusion 40 mEq, Intravenous, Administer over 240 Minutes, Once, 1 dose, On Wed04/03/24 at 1115, MAX rate in peripheral line of 10 mEq per hour. 1148 (Not Given - Pr ovider: Lilly Sterling RN - Reason: Other - Comment: oral to be given instead) potassium chloride CR (K-TAB) tablet 40 mEq (COMPLETED) 40 mEq, Oral, Once, 1 dose, On Wed04/03/24 at 1215, Do not break, chew, or crush. 1249 (Given - Provid er: Lilly tSerling RN) PRN Medication Order 04/01/2024 04/02/2024 04/03/2024 morphine injection 2 mg 2 mg, Intravenous, Every 4 hours PRN, Severe pain (Scale 8 - 10), Starting on Wed04/03/24 at 0254, Until Wed04/03/24 at 1501 naLOXone (NARCAN) injection 0.4 mg 0.4 mg, Intravenous, As needed, Opioid reversal, Starting on Wed04/03/24 at 0254, Until Wed04/03/24 at 1501 Linked Groups Order Group 1: insulin lispro (HUMALOG/ADMELOG) injection 0-16 Units (CANCELED) 0-16 Units, Subcutaneous, 3 times daily before meals, First dose on Wed04/03/24 at 0700, Until Discontinued, Blood Glucose (USUAL Dosing): [Less than 70:? Initiate Hypoglycemia Standing Orders] [71-140: ? 0 units] [141-180:? 4 units] [181-220:? 6 units] [221-260:? 8 units] [261-300:? 10 units] [301- 350:? 12 units] [351-400:? 14 units] [Greater than 400:? 16 units and Call Physician] And insulin lispro (HUMALOG/ADMELOG) injection 0-8 Units (CANCELED)Jump to med 0-8 Units, Subcutaneous, Nightly at bedtime, First dose on Wed04/03/24 at 0115, Until Discontinued, Blood Glucose (USUAL Dosing): [Less than 70:? Initiate Hypoglycemia Standing Orders] [71-180:? 0 units] [181-220:? 3 units] [221-260:? 4 units] [261-300:? 5 units] [301-350:? 6 units] [351-400:? 7 units] [Greater than 400:? 8 units and Call Physician] documented in this encounter Care Teams Terminal Operator Relationship Specialty Start Date [place] [address] [address] PCP - General INTERNAL MEDICINE 02/22/24 07/09/24 Rosalia Garcia MD [address] [place] [address] [place] [address] Consulting Physician ENDOCRINOLOGY 03/29/24 documented as of this encounter
--- OUTSIDE RECORDS SUMMARY | 2024-08-13 05:40 | XMS_ITS | Encounter Summary ---
Author Organization [facility] Address [address] [place] [address]. [place], [place] [address] [place] [address] Care Team Providers Care Real Time Trader Name Role Phone Joesph Jacobo MD Primary Care Provider [phone]- [phone] Encounter Details Date Type Department Care Team (Latest Contact Info) Description 03/28/2024 Travel Social History Tobacco Use Types Packs/Day [...] on filedocumented in this encounter Care Teams Real Time Trader Relationship Specialty [place] [address] [facility] [address] [place] [address] PCP - General INTERNAL MEDICINE 02/22/24 07/09/24 documented as of this encounter
== END 2024-08-07 19:50 | disposition left against medical advice (07) | DRG 420 ==
LOC: ANHED 13:40 → ANHICU 14:16
PROVIDERS: Internal Medicine; Nurse Practitioner Acute Care; Admitting Provider General Practice; Emergency Provider Emergency Medicine; Visit Provider General Practice
DX: E10.10 Type 1 diabetes mellitus with ketoacidosis without coma (principal); E87.1 Hypo-osmolality and hyponatremia; E87.5 Hyperkalemia; E03.9 Hypothyroidism, unspecified; E06.3 Autoimmune thyroiditis; I10 Essential (primary) hypertension; D64.9 Anemia, unspecified; I73.00 Raynaud's syndrome without gangrene; D72.829 Elevated white blood cell count, unspecified; F17.210 Nicotine dependence, cigarettes, uncomplicated; Z91.148 Patient's other noncompliance with medication regimen for other reason
CPT/HCPCS: 36415; 36600; 71045; 80048; 80053; 80307; 81001; 82010; 82077; 82375; 82805; 82948; 83036; 83050; 83605; 83735; 84100; 85018; 85025; 87637; 87641; 93005; 96361; 96374; 96375; 99285; A9270; G0378; J0612; J1650; J1815; J2060; J3475; J3480; J7030; J7120

== ENCOUNTER 2024-09-19 22:44 | Inpatient (IN) | payer OTHER, SELFPAY ==
[2024-09-19] VITALS (11 sets, daily range): BP systolic 126–129; BP diastolic 83–86; PULSE 115–126; RESP 28–45; TEMP 37.7; O2SAT 84–97
--- NOTE | ~2024-09-19 | XR_ITS ---
Portable chest x-ray Comparison: 09/20/2024 at 12:09 AM Clinical History: Tube placement Findings: Endotracheal tube and NG tube are in satisfactory positions. Extensive bibasilar and perih ilar airspace disease again present, more patchy involvement in the right upper lobe. Possible small left pleural effusion. Cardiomediastinal silhouette is stable. Bones and soft tissues are unremarkab le. Impression: Support tubes in place, as above. Extensive bilateral airspace consolidation, more confluent than on prior exam. Correlate for worsenin g pneumonia or pulmonary edema. Reviewed, dictated and finalized at [facility]. S MACHINE FEEDER Impression: Support tubes in place, as above. Extensive bilateral airspace consolidation, more confluent than on prior exam. Correlate for worsening pneumonia or pulmonary edema.
--- NOTE | ~2024-09-19 | XR_ITS ---
Portable chest x-ray Comparison: 09/21/2024 Clinical History: Respiratory failure Findings: Endotracheal tube, NG tube, and right subclavian line are in place. Extensive bilateral pu lmonary consolidation and present. Cardiomediastinal silhouette is stable. Bones and soft tissues ar e unremarkable. Impression: Stable extensive bilateral pulmonary consolidation, most compatible with diffuse pneumonia. Stable support tubes. Reviewed, dictated and finalized at location . CE NURSE Impression: Stable extensive bilateral pulmonary consolidation, most compatible with diffus e pneumonia. Stable support tubes.
--- NOTE | ~2024-09-19 | XR_ITS ---
Portable chest x-ray Comparison: 09/20/2024 Clinical History: Respiratory failure Findings: Endotracheal tube, NG tube, and right subclavian line are in satisfactory positions. There is worsening extensive right lung consolidation with additional extensive left lung consolidation as well. There is relative sparing of the left lung apex. Probable small left pleural effusion. Cardio mediastinal silhouette is stable. Bones and soft tissues are unremarkable. Impression: Extensive bilateral pulmonary consolidation, worsened in the right lung from prior exam, essentially stable in the left lung. Findings are suspicious for extensive bilateral pneumonia. Small left pleural effusion. Support tubes, as above. Reviewed, dictated and finalized at location M. AND WILDLIFE TECHNICIAN Impression: Extensive bilateral pulmonary consolidation, worsened in the right lung from pr ior exam, essentially stable in the left lung. Findings are suspicious for exte nsive bilateral pneumonia. Small left pleural effusion. Support tubes, as above.
--- NOTE | ~2024-09-19 | XR_ITS ---
EXAMINATION: XR chest 1V portable DATE: 09/23/2024 19:16 INDICATION: Increasing oxygen demands. TECHNIQUE: A single frontal view of the chest was obtained. COMPARISON: Chest single view at 5:09 AM, chest CT 09/20/2024 FINDINGS: There are airspace opacities in all lung zones bilaterally. No pleural effusion or pneumoth orax. The heart size is normal. The endotracheal tube tip is 3.9 cm above the itrso. A right subclav vangie central venous catheter is seen with tip at the superior cavoatrial junction. The nasogastric tub e tip is in the stomach. There are old healed right rib fractures. IMPRESSION: 1. Diffuse lung disease with worsening on the left, consistent with pneumonia. Reviewed, dictated and finalized at location A. OR DATA DEVELOPER
--- NOTE | ~2024-09-19 | XR_ITS ---
Portable chest x-ray Comparison: 09/20/2024 at 3:33 AM Clinical History: Line placement Findings: Endotracheal tube, NG tube, and right subclavian line are in satisfactory positions. Exten sive pulmonary airspace disease, especially lung bases and perihilar regions, is again present. Possi ble small left pleural effusion. No pneumothorax. Cardiomediastinal silhouette is stable. Bones and soft tissues are unremarkable. Impression: Support tubes, as above. Stable extensive pulmonary airspace disease. Correlate for pulmonary edema versus pneumonia. Probable small left pleural effusion. Reviewed, dictated and finalized at location . ATIONS OFFICER Impression: Support tubes, as above. Stable extensive pulmonary airspace disease. Correlate for pulmonary edema vers us pneumonia. Probable small left pleural effusion.
--- NOTE | ~2024-09-19 | XR_ITS ---
Portable chest x-ray Comparison: 09/20/2024 at 2:41 AM Clinical History: Tube placement Findings: Endotracheal tube and NG tube are in satisfactory positions. Extensive bilateral airspace disease is again present. Probable small left pleural effusion. Cardiomediastinal silhouette is stab le. Bones and soft tissues are unremarkable. Impression: Support tubes in place, as above. Stable extensive bilateral pulmonary airspace disease. Possible small pleural effusion. Reviewed, dictated and finalized at location . FABRICATOR Impression: Support tubes in place, as above. Stable extensive bilateral pulmonary airspace disease. Possible small pleural effusion.
--- NOTE | ~2024-09-19 | XR_ITS ---
Portable chest x-ray Comparison: 09/25/2024 Clinical History: Respiratory failure Findings: Endotracheal tube, NG tube, right subclavian line, and left-sided chest tube are in place. No definite pneumothorax seen. Extensive bilateral pulmonary consolidation again present. Cardiomed iastinal silhouette is stable. Bones and soft tissues are unremarkable. Impression: Support tubes, as above. No visible pneumothorax. Diffuse bilateral pulmonary consolidation is unchanged. Reviewed, dictated and finalized at location M. OTEL OPERATOR Impression: Support tubes, as above. No visible pneumothorax. Diffuse bilateral pulmonary consolidation is unchanged.
--- NOTE | ~2024-09-19 | US_ITS ---
EXAMINATION: US renal BI DATE: 09/22/2024 14:49 INDICATION: Acute renal insufficiency TECHNIQUE: Multiple ultrasound grayscale images of the kidneys were obtained. COMPARISON: None. FINDINGS: The right kidney measures 14.2 x 4.7 x 5.5 cm. The left kidney measures 14.2 x 5.2 x 5.7 cm. The kidn eys demonstrate normal echogenicity. There is no hydronephrosis in either kidney. No stones identifi ed. The bladder is nonvisualized, likely decompressed with a Leach catheter reportedly in place. IMPRESSION: 1. Normal kidneys without hydronephrosis. Reviewed, dictated and finalized at location A. NER
--- NOTE | ~2024-09-19 | US_ITS ---
US abdomen limited INDICATION: Elevated liver enzymes PROCEDURE: Realtime right upper abdominal ultrasound. COMPARISON: CT dated 09/25/2022 FINDINGS: The pancreas is normal without focal mass or pancreatic ductal dilation. Liver echotexture is increased, consistent with fatty infiltration. There is normal directional flow in the portal ve in. Gallbladder wall is thickened. No gallstones or pericholecystic fluid. Common bile duct measures 3 m m. No sonographic Dominguez's sign. IMPRESSION: 1: Gallbladder wall thickening, nonspecific. No evidence for gallstones. 2: Fatty infiltration of the liver. Reviewed, dictated and finalized at location L. MACEUTICAL SCIENTIST
--- NOTE | ~2024-09-19 | XR_ITS ---
Upright portable view of the abdomen Clinical history: NG tube placement Findings: NG tube in satisfactory position. Bowel gas pattern is nonspecific. No evidence for obstruc tion or free air. No abnormal mass lesion or calcification is seen. Osseous structures are intact. Impression: NG tube in satisfactory position. Reviewed, dictated and finalized at [facility]. RETREADER Impression: NG tube in satisfactory position.
--- NOTE | ~2024-09-19 | XR_ITS ---
Portable chest x-ray Comparison: 09/26/2024 Clinical History: Respiratory failure Findings: Endotracheal tube, NG tube, bilateral central venous lines, and left-sided chest tube are in place. No pneumothorax. Extensive bilateral pulmonary consolidation is unchanged. Cardiomediastin al silhouette is stable. Bones and soft tissues are unremarkable. Impression: Stable support tubes. No pneumothorax. Stable extensive bilateral pulmonary consolidation. Reviewed, dictated and finalized at location . TECH Impression: Stable support tubes. No pneumothorax. Stable extensive bilateral pulmonary consolidation.
--- NOTE | ~2024-09-19 | XR_ITS ---
EXAMINATION: XR chest 1V portable DATE: 09/23/2024 05:27 INDICATION: Respiratory failure TECHNIQUE: frontal view of the chest was obtained. COMPARISON: Chest radiograph dated 09/22/2024 FINDINGS: Endotracheal tube tip 4.3 cm above the tirso. Right subclavian central venous catheter with distal t ip at the superior cavoatrial junction. Nasogastric tube with proximal side-port below level of the left hemidiaphragm and distal tip collimated off the study. There is been slight decrease in patchy airspace opacities throughout both lungs relatively sparing t he left upper lung zone which could represent improving pulmonary edema and/or pneumonia. No pneumoth orax or definitive pleural effusion. Heart size is normal. T11-T12 fusion. IMPRESSION: 1. Slight decrease in diffuse patchy bilateral airspace opacities which could represent improving pul monary edema and/or pneumonia. Reviewed, dictated and finalized at location A. GER ORACLE DATABASE IMPRESSION: 1. Slight decrease in diffuse patchy bilateral airspace opacities which could r epresent improving pulmonary edema and/or pneumonia.
--- NOTE | ~2024-09-19 | XR_ITS ---
EXAMINATION: XR chest 1V portable DATE: 09/24/2024 05:47 INDICATION: Pneumonia. TECHNIQUE: A single frontal view of the chest was obtained. COMPARISON: Chest single view 09/23/2024 FINDINGS: There are airspace opacities in all lung zones bilaterally with relative sparing of left herrera ng apex. No pleural effusion or pneumothorax. The heart size is normal. The endotracheal tube tip is 2.9 cm above the tirso. A right subclavian central venous catheter is seen with tip at the superior cavoatrial junction. The nasogastric tube tip is beyond the inferior margin of the radiograph, but at least to the stomach. IMPRESSION: 1. Stable diffuse lung disease, consistent with pneumonia. Reviewed, dictated and finalized at location A. MIXER
--- NOTE | ~2024-09-19 | XR_ITS ---
Portable chest x-ray Comparison: 08/06/2024 Clinical History: Hypoxia Findings: Patchy bilateral airspace consolidation is present, relatively sparing the left lung apex. No pleural effusion. Cardiomediastinal silhouette is stable. Bones and soft tissues are unremarkabl e. Impression: Extensive patchy bilateral airspace consolidation, compatible with bilateral pneumonia. Reviewed, dictated and finalized at location . E BUILDER Impression: Extensive patchy bilateral airspace consolidation, compatible with bilateral pn eumonia.
--- NOTE | ~2024-09-19 | XR_ITS ---
EXAMINATION: XR chest-chest tube insert/pos Exam Date/Time: 09/27/2024 17:40 POOL NURSE HISTORY: verify chest tube placment Comparison: Same date at 5:24 AM. RESULT: Lines, tubes, and devices: Endotracheal tube, terminating 5.0 cm above the tirso. Subdiaphragmatic NG tube, side port over the gastric fundus. Left IJ central line terminating in the distal SVC. Right subclavian central line terminating at the cavoatrial junction. Left thoracostomy tube, tip and side port over the left upper lung. Lungs and pleura: Unchanged diffuse airspace and coarse interstitial opacities. Unchanged mild left lateral costophrenic angle blunting Cardiomediastinal silhouette: Stable. Other: No acute osseous or upper abdominal finding. IMPRESSION: Endotracheal tube terminates 5.0 cm above the tirso, consider 1 cm retraction. Left IJ and right subclavian central lines in good position. Left chest tube in good position. Nasoga stric tube in good position. Unchanged pulmonary opacities likely representing severe pulmonary edema, pneumonia, or combination. Also consider ARDS in the differential. Reviewed, dictated and finalized at location K. NURSE IMPRESSION: Endotracheal tube terminates 5.0 cm above the tirso, consider 1 cm retraction. Left IJ and right subclavian central lines in good position. Left chest tube in good position. Nasogastric tube in good position. Unchanged pulmonary opacities likely representing severe pulmonary edema, pneum onia, or combination. Also consider ARDS in the differential.
--- NOTE | ~2024-09-19 | CT_ITS ---
Clinical Indication: Hypoxia CT Scan of the Chest with Contrast: Technique: Contiguous sections were acquired throughout the chest after intravenous administration of 100 cc of Omnipaque 350. Dose reduction technique was used on this scan by utilizing automated expos ure control and iterative reconstruction technique. The dose-length product (DLP) was 240.85 mGy-cm. Findings: There is no evidence of any significant mediastinal, hilar or axillary lymphadenopathy. There is no f illing defect in the pulmonary arterial tree to suggest pulmonary embolus. There is no evidence of ao rtic dissection or aneurysm. There is no evidence of pleural or pericardial effusion. There is extensive bilateral lower lobe consolidation with more patchy consolidation the right middle lobe and upper lobes. Images through the upper abdomen reveal no abnormalities. Impression: Bilateral multifocal pneumonia, most extensively involving the lower lobes. No pulmonary embolus seen. Reviewed, dictated and finalized at [facility]. CIENCES FACULTY MEMBER Impression: Bilateral multifocal pneumonia, most extensively involving the lower lobes. No pulmonary embolus seen.
--- NOTE | ~2024-09-19 | XR_ITS ---
Portable chest x-ray Comparison: 09/24/2024 Clinical History: Pneumonia Findings: Endotracheal tube, NG tube, and right subclavian line are in place. Extensive bilateral pu lmonary consolidation is present, with sparing of the left lung apex. Cardiomediastinal silhouette i s stable. Bones and soft tissues are unremarkable. Impression: Stable extensive bilateral pulmonary consolidation, compatible diffuse pneumonia. Support tubes, as above. Reviewed, dictated and finalized at location M. CY OWNER Impression: Stable extensive bilateral pulmonary consolidation, compatible diffuse pneumoni a. Support tubes, as above.
--- NOTE | ~2024-09-19 | XR_ITS ---
EXAMINATION: XR chest port-a-cath/central DATE: 09/26/2024 14:20 INDICATION: Central line placement. TECHNIQUE: A single frontal view of the chest was obtained. COMPARISON: Chest view at 5:14 AM FINDINGS: There are airspace opacities in all lung zones bilaterally with relative sparing of left herrera ng apex. No pleural effusion or pneumothorax. The heart size is normal. The endotracheal tube tip is 4.2 cm above the tirso. A right subclavian central venous catheter is seen with tip at the superior cavoatrial junction. A left internal jugular central venous catheter is seen with tip at the superior cavoatrial junction. The nasogastric tube tip is beyond the inferior margin of the radiograph, but a t least to the stomach. A left-sided chest tube is noted. IMPRESSION: 1. New central line tip at superior cavoatrial junction. 2. Stable diffuse lung disease, consistent with pneumonia. 3. No pneumothorax. Left-sided chest tube in expected position. Reviewed, dictated and finalized at location A. OGRAPHERS PRINTER
--- NOTE | ~2024-09-19 | XR_ITS ---
CHEST RADIOGRAPH CLINICAL HISTORY: chest tube placement . COMPARISON: Previous examination performed 30 minutes earlier TECHNIQUE: Single portable view of the chest. FINDINGS Interval placement of a large bore chest tube within the left hemithorax with reexpansion of the left lung and only a small residual left-sided pneumothorax (approximately 13 mm of separation). Addition al lucency identified adjacent to the left pulmonary hilum, possibly representing pneumomediastinum v ersus trace medial residual pneumothorax for which chest CT may be performed when the patient is clin ically able. Right subclavian central venous catheter tip projecting over the cavoatrial junction Endotracheal tube is identified with its tip projecting approximately 3 cm above the base of the thelma na. Nasogastric tube identified with its tip extending below the left hemidiaphragm, presumably within th e stomach. The remainder of the cardiomediastinal silhouette is otherwise unremarkable. Blunting of the right costophrenic sulcus suggesting a small right-sided pleural effusion. Redemonstration of diffuse bilateral opacification, findings consistent with ARDS. IMPRESSION: Interval near complete resolution of the left-sided pneumothorax, after large bore chest tube inserti on as detailed above. Findings suggesting either medial residual pneumothorax versus pneumomediastinum. Reviewed, dictated and finalized at location A. D MIXER IMPRESSION: Interval near complete resolution of the left-sided pneumothorax, after large b ore chest tube insertion as detailed above. Findings suggesting either medial residual pneumothorax versus pneumomediastinu m.
--- NOTE | ~2024-09-19 | XR_ITS ---
EXAMINATION: XR chest 1V portable DATE: 09/25/2024 14:25 INDICATION: Desaturation TECHNIQUE: frontal view of the chest was obtained. COMPARISON: Chest radiograph dated 09/25/2024 FINDINGS: Endotracheal tube tip 4.0 cm above the tirso. Triple-lumen right subclavian central venous catheter with distal tip in the superior cavoatrial junction. Nasogastric tube extends below the left hemidia phragm with distal tip collimated off the study. New moderate-sized left pneumothorax but with caudal displacement of the left hemidiaphragm decreased size of the heart which despite the lack of rightward mediastinal shift suggests the possibility of tension pneumothorax. No pleural effusion or right-sided pneumothorax. Again seen are extensive airsp carlton opacities throughout the right lung and throughout the partially collapsed left lung consistent w ith pneumonia, severe pulmonary edema, ARDS or some combination thereof. IMPRESSION: 1. Moderate-sized left pneumothorax, potentially tension pneumothorax with caudal displacement of the left hemidiaphragm and decrease in size of the heart. A chest tube was in the process of being place d when I called to notify the ICU nurse. 2. Extensive bilateral lung disease which could represent pneumonia, severe pulmonary edema, ARDS or some combination thereof. Reviewed, dictated and finalized at location B. ER ROBBER IMPRESSION: 1. Moderate-sized left pneumothorax, potentially tension pneumothorax with caud al displacement of the left hemidiaphragm and decrease in size of the heart. A chest tube was in the process of being placed when I called to notify the ICU n [place]. 2. Extensive bilateral lung disease which could represent pneumonia, severe pul monary edema, ARDS or some combination thereof.
[2024-09-19 22:52] LABS: Glucose Point of Care 260 mg/dl (65-105)
--- NOTE | 2024-09-19 23:10 | ECG_ITS ---
Test Date: 2024-09-19 23:12:34 Measurements Intervals Orwell Rate: 128 P: 37 NC: 122 QRS: 73 QRSD: 83 T: 0 QT: 287 QTc: 419 Interpretive Statements SINUS TACHYCARDIA NONSPECIFIC ST & T-WAVE ABNORMALITY- INF/HIGH LAT LEADS BASELINE WANDER- V1-V2 ABNORMAL ECG Compared to ECG 08/06/2024 11:49:17 HEART RATE HAS INCREASED Electronically Signed On 09-20-2024 07:06:33 MANAGER TARGET by Josias Mcintosh D.O.
--- OUTSIDE RECORDS SUMMARY | 2024-09-19 23:15 | XMS_ITS | Encounter Summary ---
Author Organization [facility] Address [address] [facility] [place] [address] Care Team Providers Care Information Technology Intern Name Role Phone Adair Finn APRN-CAUSTIC PURIFICATION OPERATOR Primary Care P rovider Joesph Jacobo MD Primary Care Provider [phone] Encounter Details Date Type Department Care Team (Late st Contact Info) Description 04/04/2024 Telephone [facility] - Endocrinology [address] [place] [address], [place] [phone] Rosalia Hair MD [address] [place] [phone] Social History Tobacco Use Types Packs/Day Years [...] arm pit. The surgeon Dr. Little at [facility] wants to do a debridement leaving an [...] please call ZENY. Patient Call Back Number: [phone] documented in this encounter Plan of Treatment Upcoming Encounters Date Type Department Care Team (Late st Contact Info) Description 09/27/2024 9:45 AM SURVEILLANCE INSPECTOR Office Visit [facility] - Ophthalmology [address] [place] [phone] Buddy Fuller MD [address] [place] [address] [place] [phone] 10/04/2024 1:00 PM SURVEILLANCE INSPECTOR Office Visit [facility] - Endocrinology [address] [place] [phone] Rosalia Hair MD [address] [place] [phone] 10/12/2024 2:15 PM CDT Office Visit [facility] - Ophthalmology [address] [place] [phone] Sandeep Hernandez MD [address] [place] [address] [place] [phone] 10/24/2024 2:00 PM CDT Office Visit [facility] - Ophthalmology [address] [place] [phone] Wong Ortiz MD [address] [place] [address] [place] [address] 02/07/2025 8:30 AM CDT Office Visit [facility] - Rheumatology [address] [place] [address], [place] [phone] Roni Castañeda MD [address] [place] [address] [place] [phone] documented as of this encounter Visit Diagnoses Not on filedocumented in this encounter Care Teams Information Technology Intern Relationship Specialty Start Date End Date Adair Finn, VENDING MACHINE TECHNICIAN-CAUSTIC PURIFICATION OPERATOR [address] [facility] [place] [address] PCP - General Nurse Practitioner Adult Health 03/29/24 08/09/24 Joesph Jacobo MD [address] [place] [phone] PCP - General Internal Medicine 08/10/24 documented as of this encounter
--- OUTSIDE RECORDS SUMMARY | 2024-09-19 23:15 | XMS_ITS | Encounter Summary ---
Author Organization [facility] Address [address] [facility] [place] [address] Care Team Providers Care Battery Hand Name Role Phone Adair Finn APRN-METAL CUTTER Primary Care P rovider Joesph Jacobo MD Primary Care Provider [phone] Reason for Visit * Reason Comments Refill Request Encounter Details Date Type Department Care Team (Late st Contact Info) Description 03/31/2024 Refill [facility] - Endocrinology [address] [facility], [facility] [place] [phone] Rosalia Hair MD [address] [place] [phone] Refill Request Social History Tobacco Use Types [...] st Contact Info) Description 09/27/2024 9:45 AM MARGARINE CHURN OPERATOR Office Visit [facility] - Ophthalmology [address] [place] [phone] Buddy Fuller MD [address] [place] [address] [place] [phone] 10/04/2024 1:00 PM MARGARINE CHURN OPERATOR Office Visit [facility] - Endocrinology [address] [place] [phone] Rosalia Hair MD [address] [place] [phone] 10/12/2024 2:15 PM CDT Office Visit [facility] - Ophthalmology [address] [place] [phone] Sandeep Hernandez MD [address] [place] [address] [place] [phone] 10/24/2024 2:00 PM CDT Office Visit [facility] - Ophthalmology [address] [place] [phone] Wong Ortiz MD [address] [place] [address] [place] [phone] 02/07/2025 8:30 AM CDT Office Visit [facility] - Rheumatology [address] [place] [address], [place] [phone] Roni Castañeda MD [address] [place] [address] [place] [phone] documented as of this encounter Visit Diagnoses Not on filedocumented in this encounter Care Teams Battery Hand Relationship Specialty Start Date End Date Adair Finn, TECHNICAL SERVICES REPRESENTATIVE-METAL CUTTER [address] [facility] [place] [place] [address] PCP - General Nurse Practitioner Adult Health 03/29/24 08/09/24 Joesph Jacobo MD [address] [place] [phone] PCP - General Internal Medicine 08/10/24 documented as of this encounter
--- OUTSIDE RECORDS SUMMARY | 2024-09-19 23:15 | XMS_ITS | Encounter Summary ---
Author Organization [facility] Address [address] [facility] [address] Care Team Providers Care Baccarat Manager Name Role Phone Joesph Jacobo MD Primary Care Provider [phone]- [phone] Encounter Details Date Type Department Care Team (Late st Contact Info) Description 08/30/2024 Telephone [facility] - Endocrinology [address] [facility], [place] [phone] Rosalia Hair MD [address] [place] [phone] Social History Tobacco Use Types Packs/Day Years Used Date Smoking Tobacco: Unknown Sex and Gender Information Value Date Recorded Sex Assigned at Not on file Gender Identity Not on file Sexual Orientation Not on file documented as of this encounter Miscellaneous Notes * Telephone Encounter - Sheree Gómez - 08/30/2024 8:15 AM CST Patient called in requesting a Med refill. Drug type:levothyroxine (Synthroid) 100 MCG tablet She stated she is out and has left numerous messages. Pharmacy:[id number] [address] [facility] [phone] [facility] [address] Patient call back number: [phone] . Patients ANDRES : 03/29/2024 Upcoming appointment scheduled for : 10/04/2024 FILLER documented in this encounter Plan of Treatment Upcoming Encounters Date Type Department Care Team (Late st Contact Info) Description 09/27/2024 9:45 AM SOLE FILLER Office Visit [facility] - Ophthalmology [address] [place] [phone] Buddy Fuller MD [address] [place] [address] [place] [phone] 10/04/2024 1:00 PM SOLE FILLER [facility] [address] [place] [phone] Rosalia Hair MD [address] [place] [address] [place] [phone] 10/12/2024 2:15 PM CDT Office Visit [facility] - Ophthalmology [address] [place] [phone] Sandeep Hernandez MD [address] [place] [address] [place] [phone] 10/24/2024 2:00 PM CDT Office Visit [facility] - Ophthalmology [address] [place] [phone] Wong Ortiz MD [address] [place] [address] [place] [phone] 02/07/2025 8:30 AM CDT Office Visit [facility] - Rheumatology [address] [place] [phone] Roni Castañeda MD [address] [place] [address] [place] [phone] documented as of this encounter Visit Diagnoses Not on filedocumented in this encounter Care Teams Baccarat Manager Relationship Specialty Start Date End Date Joesph Jacobo MD [address] [place] [phone] PCP - General Internal Medicine 08/10/24 documented as of this encounter
--- OUTSIDE RECORDS SUMMARY | 2024-09-19 23:15 | XMS_ITS | Encounter Summary ---
Author Organization [facility] Address [address] [facility] [place] [address] Care Team Providers Care Correspondence Review Clerk Name Role Phone Joesph Jacobo MD Primary Care Provider +1- [phone] Reason for Visit * Reason Onset Date Comments Pre Authorization 09/19/2024 Encounter Details Date Type Department Care Team (Late Contact Info) Description 09/19/2024 Telephone [facility] - Internal Med [facility] [place], [place] [phone] Carlie Jerry MD [address] [facility] [place] [address] Pre Authorization Social History Tobacco Use Types Packs/Day Years Used Date Smoking Tobacco: Unknown Sex and Gender Information Value Date Recorded Sex Assigned at Not on file Gender Identity Not on file Sexual Orientation Not on file documented as of this encounter Miscellaneous Notes * Telephone Encounter - Miri Cunha RN - 09/19/2024 1:12 PM CST Received PA request from pharmacy for Omnipod 5 Dexcom. [facility] PA through [facility], advised does not require a PA. RN called pharmacy to convey message. Pharmacy advised prescription has gone through. ING AGENT documented in this encounter Plan of Treatment Upcoming Encounters Date Type Department Care Team (Late Contact Info) Description 09/27/2024 9:45 AM SIGNING AGENT Office Visit [facility] - Ophthalmology [address] [place] [phone] Buddy Fuller MD [address] [place] [address] DEPT [place] [phone] 10/04/2024 1:00 PM SIGNING AGENT Office Visit [facility] - Endocrinology [address] [place] [phone] Rosalia Hair MD [address] [place] [address] [place] [phone] 10/12/2024 2:15 PM CDT Office Visit [facility] - Ophthalmology [address] [place] [phone] Sandeep Hernandez MD [address] [place] [address] DEPT [place] [phone] 10/24/2024 2:00 PM CDT Office Visit [facility] - Ophthalmology [address] [place] [phone] Wong Ortiz MD [address] [place] [address] DEPT [place] [phone] 02/07/2025 8:30 AM CDT Office Visit [facility] - Rheumatology [address] [place] [phone] Roni Castañeda MD [address] [place] [address] [place] [phone] documented as of this encounter Visit Diagnoses Not on filedocumented in this encounter Care Teams Correspondence Review Clerk Relationship Specialty Start Date End Date Joesph Jacobo MD [address] [place] [phone] PCP - General Internal Medicine 08/10/24 documented as of this encounter
--- OUTSIDE RECORDS SUMMARY | 2024-09-19 23:15 | XMS_ITS | Clinical Summary ---
Author Organization [facility] Address [facility] [place] [address] Care Team Providers Care Biomedical Engineering Director Name Role Phone None, Provider MD Primary Care Provider Unavaila ble Allergies No known active allergies Medications levothyroxine (SYNTHROID) 100 MCG tablet Take 1 tablet (100 mcg total) by mouth daily. Active HUMALOG 100 UNIT/ML injection (VIAL) Inject [...] (OMNIPOD 5 G6 PODS, GEN 5,) Misc Inject into the skin continuous. USE AND CHANGE EVERY 48 HOURS, 08/23/19 24 Active Continuous Glucose Transmitter (DEXCOM G6 TRANSMITTER) Misc 01/07/20 24 025 Discontin ued(Error ) Continuous Glucose Sensor (DEXCOM G6 SENSOR) Misc 12/03/19 24 025 Discontin ued(Error ) Active Problems Problem Noted Date Diagnosed Date DKA (diabetic ketoacidosis) ([facility]) DKA, type 1 ([facility]) 07/09/2024 Hypercalcemia 07/09/2024 Periorbital cellulitis 06/23/2024 Abscess, axilla 04/03/2024 Type 1 diabetes mellitus wit h diabetic cataract (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 Encounters Date Type Department Care Team Description 09/19/2024 7:12 AM COUTURE ALTERATIONS DRESSMAKER - 09/19/2024 11:14 AM COUTURE ALTERATIONS DRESSMAKER Emergency [facility] [place] [address] Fever Discharge Disposition: Left Against Medical Advice 09/19/2024 Travel 08/25/2024 Hospital Follow-up Call [facility] [place] [address] Ledy Dhillon LPN Follow Up Call (JERRY 08/23-08/24/23) 08/23/2024 10:14 AM C[employer]URE ALTERATIONS DRESSMAKER - 08/24/2024 3:55 PM COUTURE ALTERATIONS DRESSMAKER Hospital Encounter [facility] [place] [place] [address] Oscar Galvan MD Shreve, Nelson E, MD Hyperglycemia Discharge Disposition: Left Against Medical Advice 08/23/2024 Travel 07/09/2024 10:13 AM [employer]URE ALTERATIONS DRESSMAKER - 07/10/2024 9:45 AM C[employer]URE ALTERATIONS DRESSMAKER Hospital Encounter [facility] [place] [address] David Heath PA Simpson, Stephanie L, DO Hyperglycemia; Rib Pain Discharge Disposition: Left Against Medical Advice 07/09/2024 Travel 06/23/2024 5:51 PM C[employer] ALTERATIONS DRESSMAKER - 06/25/2024 11:40 AM [employer]URE ALTERATIONS DRESSMAKER [facility] [address] [place] [address] Sim Reed MD Jumean, Khaled, MD Martens, Jennifer L, SHAWN Eye Problem Discharge Disposition: Home or Self Care (Routine Discharge) 06/23/2024 Travel 06/21/2024 Telephone [facility] [address] [phone] Joepsh Jacobo MD Forms (H&P form for eye surgery.) 06/19/2024 2:20 PM C[employer]URE ALTERATIONS DRESSMAKER Office Visit [facility] [address] [phone] Joesph Jacobo MD Establish Care (Needing clearance to have surgery on right eye by Dr. Paulson ) 06/19/2024 Travel from Last 3 Months Family History [...] drink = 0.6 oz pur e alcohol) [facility] [employer] Answer Date Recorded In the past 12 months has e [employer], gas, oil, or water [employer] threatened to shut off services in your [...] 06/24/2024 How often do you attend chur or methodist services? Never 06/24/2024 Do you belong to any clubs o r organizations such as synagogue groups, unions, fraternal or athletic groups, or [...] Recorded Patient Health Questionnaire-2 Score 2 06/19/2024 [facility] - Occupational Stress Questionnaire Answer Date Recorded [...] any time in the past 12 m onths, were you homeless or living in a fdc (including now)? No 06/24/2024 Comments No Sex and Gender Information Value Date Recorded Sex Assigned at Female 08/23/2024 9:22 AM C[employer]URE ALTERATIONS DRESSMAKER Legal Sex Female 7:10 PM CDT Gender Identity Not on file Sexual Orientation Not on file Last Filed Vital Signs Vital Sign Reading Time Taken Comments Blood Pressure 140/99 09/19/2024 4:52 AM C[employer]URE ALTERATIONS DRESSMAKER Pulse 95 09/19/2024 4:52 AM C[employer]URE ALTERATIONS DRESSMAKER Temperature 37.6 C (99.7 F) 09/19/2024 4:52 AM C[employer]URE ALTERATIONS DRESSMAKER Respiratory Rate 18 09/19/2024 4:52 AM C[employer]URE ALTERATIONS DRESSMAKER Oxygen Saturation 98% 09/19/2024 4:52 AM C[employer]URE ALTERATIONS DRESSMAKER Inhaled Oxygen Concentration - - Weight 58 kg (127 lb 13.9 oz) 09/19/2024 4:52 AM [employer]URE ALTERATIONS DRESSMAKER Height 160 cm (5' 3 ) 09/19/2024 4:52 AM C[employer]URE ALTERATIONS DRESSMAKER Body Mass Index 22.65 09/19/2024 4:52 AM COUTURE ALTERATIONS DRESSMAKER Plan of Treatment Health Maintenance Due Date Last Done Comments Cervical Cancer Screening Pa p Smear (Age 30 to 64) Every 3 Years 1985 Kidney Health Evaluation 1985 Annual Physical 1986 Pneumococcal Vaccine: Pediatrics [...] HPV 2013 Mammogram Screening 2023 COVID-19 Vaccine (1 - 2023-2 5 season) 2024 Influenza Adult (#1) 2024 PHQ-2 (Physician Andreafski) 08/02/2024 06/19/2024 Hemoglobin A1C 10/07/2024 07/09/2024, 03/29/2024, 03/29/2024 Lipid Panel 09/13/2025 09/13/2024, 08/23/2024 Diabetes: Retinopathy Eye Exam 06/01/2026 06/01/2024 HPV Vaccines Aged Out No longer eligi ble based on patient's age to complete this topic Meningococcal B Vaccine Aged Out No l onger eligible based on patient's age to complete [...] independently Lifestyle No Sami souza, Kole Villalobos aperture mask etcher Procedure Name Priority Date/Time Associated Diagnosis Comments POCT GLUCOSE - HAMILTON DOCKED DEVICE Routine 08/24/2024 11:46 AM COUTURE ALTERATIONS DRESSMAKER BASIC METABOLIC PANEL STAT 08/24/2024 8:18 AM COUTURE ALTERATIONS DRESSMAKER POCT GLUCOSE - HAMILTON DOCKED DEVICE Routine 08/24/2024 8:06 AM COUTURE ALTERATIONS DRESSMAKER CBC W/DIFF AUTOMATED STAT 08/24/2024 5:53 AM COUTURE ALTERATIONS DRESSMAKER COMPREHENSIVE METABOLIC PANEL STAT 08/24/2024 5:53 AM COUTURE ALTERATIONS DRESSMAKER POCT GLUCOSE - HAMILTON DOCKED DEVICE Routine 08/24/2024 5:52 AM COUTURE ALTERATIONS DRESSMAKER POCT GLUCOSE - HAMILTON DOCKED DEVICE Routine 08/24/2024 4:55 AM COUTURE ALTERATIONS DRESSMAKER BASIC METABOLIC PANEL STAT 08/24/2024 3:35 AM COUTURE ALTERATIONS DRESSMAKER POCT GLUCOSE - HAMILTON DOCKED DEVICE Routine 08/24/2024 3:32 AM COUTURE ALTERATIONS DRESSMAKER POCT GLUCOSE - HAMILTON DOCKED DEVICE Routine 08/24/2024 2:28 AM COUTURE ALTERATIONS DRESSMAKER POCT GLUCOSE - HAMILTON DOCKED DEVICE Routine 08/24/2024 1:25 AM COUTURE ALTERATIONS DRESSMAKER BASIC METABOLIC PANEL STAT 08/24/2024 12:13 AM COUTURE ALTERATIONS DRESSMAKER POCT GLUCOSE - HAMILTON DOCKED DEVICE Routine 08/24/2024 12:07 AM COUTURE ALTERATIONS DRESSMAKER POCT GLUCOSE - HAMILTON DOCKED DEVICE Routine 08/23/2024 11:13 PM COUTURE ALTERATIONS DRESSMAKER POCT GLUCOSE - HAMILTON DOCKED DEVICE Routine 08/23/2024 10:19 PM COUTURE ALTERATIONS DRESSMAKER POCT GLUCOSE - HAMILTNO DOCKED DEVICE Routine 08/23/2024 9:10 PM COUTURE ALTERATIONS DRESSMAKER BASIC METABOLIC PANEL STAT 08/23/2024 8:31 PM COUTURE ALTERATIONS DRESSMAKER POCT GLUCOSE - HAMILTON DOCKED DEVICE Routine 08/23/2024 8:14 PM COUTURE ALTERATIONS DRESSMAKER POCT GLUCOSE - HAMILTON DOCKED DEVICE Routine 08/23/2024 7:25 PM COUTURE ALTERATIONS DRESSMAKER POCT GLUCOSE - HAMILTON DOCKED DEVICE Routine 08/23/2024 6:15 PM COUTURE ALTERATIONS DRESSMAKER POCT GLUCOSE - HAMILTON DOCKED DEVICE Routine 08/23/2024 5:17 PM COUTURE ALTERATIONS DRESSMAKER ECG 12-LEAD Routine 08/23/2024 4:25 PM COUTURE ALTERATIONS DRESSMAKER LIPID PANEL STAT 08/23/2024 4:19 PM COUTURE ALTERATIONS DRESSMAKER TSH W/REFLEX STAT 08/23/2024 4:19 PM COUTURE ALTERATIONS DRESSMAKER BASIC METABOLIC PANEL STAT 08/23/2024 4:19 PM COUTURE ALTERATIONS DRESSMAKER POCT GLUCOSE - HAMILTON DOCKED DEVICE Routine 08/23/2024 4:16 PM COUTURE ALTERATIONS DRESSMAKER BLOOD GAS, VENOUS STAT 08/23/2024 3:4 0 PM COUTURE ALTERATIONS DRESSMAKER HC URINALYSIS AUTO W/O MICRO STAT 08/23/2024 3:09 PM COUTURE ALTERATIONS DRESSMAKER XR CHEST PORTABLE STAT 08/23/2024 3:0 2 PM COUTURE ALTERATIONS DRESSMAKER POCT GLUCOSE - HAMILTON DOCKED DEVICE Routine 08/23/2024 3:01 PM COUTURE ALTERATIONS DRESSMAKER LACTIC ACID TIMED 08/23/2024 3:00 PM COUTURE ALTERATIONS DRESSMAKER PHOSPHORUS, INORGANIC PHOSPHATE STAT 08/23/2024 10:27 AM COUTURE ALTERATIONS DRESSMAKER MAGNESIUM STAT 08/23/2024 10:27 AM COUTURE ALTERATIONS DRESSMAKER COMPREHENSIVE METABOLIC PANEL STAT 08/23/2024 10:27 AM COUTURE ALTERATIONS DRESSMAKER CBC W/DIFF AUTOMATED STAT 08/23/2024 10:27 AM COUTURE ALTERATIONS DRESSMAKER BLOOD GAS, VENOUS STAT 08/23/2024 10: 25 AM COUTURE ALTERATIONS DRESSMAKER POCT GLUCOSE - HAMILTON DOCKED DEVICE Routine 08/23/2024 9:28 AM COUTURE ALTERATIONS DRESSMAKER BASIC METABOLIC PANEL STAT 07/10/2024 6:23 AM COUTURE ALTERATIONS DRESSMAKER CBC W/DIFF AUTOMATED STAT 07/10/2024 6:23 AM COUTURE ALTERATIONS DRESSMAKER MAGNESIUM STAT 07/10/2024 6:23 AM COUTURE ALTERATIONS DRESSMAKER POCT GLUCOSE - HAMILTON DOCKED DEVICE Routine 07/10/2024 4:45 AM COUTURE ALTERATIONS DRESSMAKER POCT GLUCOSE - HAMILTON DOCKED DEVICE Routine 07/10/2024 1:41 AM COUTURE ALTERATIONS DRESSMAKER POCT GLUCOSE - HAMILTON DOCKED DEVICE Routine 07/09/2024 11:45 PM COUTURE ALTERATIONS DRESSMAKER BASIC METABOLIC PANEL STAT 07/09/2024 9:54 PM COUTURE ALTERATIONS DRESSMAKER POCT GLUCOSE - HAMILTON DOCKED DEVICE Routine 07/09/2024 9:53 PM COUTURE ALTERATIONS DRESSMAKER POCT GLUCOSE - HAMILTON DOCKED DEVICE Routine 07/09/2024 8:43 PM COUTURE ALTERATIONS DRESSMAKER POCT GLUCOSE - HAMILTON DOCKED DEVICE Routine 07/09/2024 7:45 PM COUTURE ALTERATIONS DRESSMAKER BASIC METABOLIC PANEL STAT 07/09/2024 7:26 PM COUTURE ALTERATIONS DRESSMAKER POCT GLUCOSE - HAMILTON DOCKED DEVICE Routine 07/09/2024 6:39 PM COUTURE ALTERATIONS DRESSMAKER POCT GLUCOSE - HAMILTON DOCKED DEVICE Routine 07/09/2024 5:17 PM COUTURE ALTERATIONS DRESSMAKER POCT GLUCOSE - HAMILTON DOCKED DEVICE Routine 07/09/2024 4:20 PM COUTURE ALTERATIONS DRESSMAKER BASIC METABOLIC PANEL STAT 07/09/2024 2:43 PM COUTURE ALTERATIONS DRESSMAKER HEMOGLOBIN, GLYCOSYLATED Routine 07/09/2024 2:43 PM COUTURE ALTERATIONS DRESSMAKER POCT GLUCOSE - HAMILTON DOCKED DEVICE Routine 07/09/2024 2:39 PM COUTURE ALTERATIONS DRESSMAKER DRUG SCREEN RAPID STAT 07/09/2024 2:0 2 PM COUTURE ALTERATIONS DRESSMAKER HC URINALYSIS AUTO W/O MICRO STAT 07/09/2024 2:02 PM COUTURE ALTERATIONS DRESSMAKER BLOOD GAS, VENOUS STAT 07/09/2024 11: 55 AM COUTURE ALTERATIONS DRESSMAKER ECG 12-LEAD STAT 07/09/2024 11:32 AM COUTURE ALTERATIONS DRESSMAKER THYROXINE, FREE (FT4) STAT 07/09/2024 10:42 AM COUTURE ALTERATIONS DRESSMAKER TSH W/REFLEX STAT 07/09/2024 10:42 AM COUTURE ALTERATIONS DRESSMAKER ETHANOL STAT 07/09/2024 10:42 AM COUTURE ALTERATIONS DRESSMAKER TROPONIN, QUANT STAT 07/09/2024 10:42 AM COUTURE ALTERATIONS DRESSMAKER LIPASE STAT 07/09/2024 10:42 AM COUTURE ALTERATIONS DRESSMAKER COMPREHENSIVE METABOLIC PANEL STAT 07/09/2024 10:42 AM COUTURE ALTERATIONS DRESSMAKER CBC W/DIFF AUTOMATED STAT 07/09/2024 10:42 AM COUTURE ALTERATIONS DRESSMAKER XR CHEST PORTABLE STAT 07/09/2024 10: 24 AM COUTURE ALTERATIONS DRESSMAKER COMPREHENSIVE METABOLIC PANEL Routine 06/25/2024 8:20 AM COUTURE ALTERATIONS DRESSMAKER CBC W/DIFF AUTOMATED Routine 06/25/2024 8:20 AM COUTURE ALTERATIONS DRESSMAKER POCT GLUCOSE - HAMILTON DOCKED DEVICE Routine 06/24/2024 3:41 PM COUTURE ALTERATIONS DRESSMAKER POCT GLUCOSE - HAMILTON DOCKED DEVICE Routine 06/24/2024 11:16 AM COUTURE ALTERATIONS DRESSMAKER POCT GLUCOSE - HAMILTON DOCKED DEVICE Routine 06/24/2024 7:55 AM COUTURE ALTERATIONS DRESSMAKER SODIUM URINE RANDOM STAT 06/24/2024 5 :40 AM COUTURE ALTERATIONS DRESSMAKER OSMOLALITY, URINE STAT 06/24/2024 5:4 0 AM COUTURE ALTERATIONS DRESSMAKER POCT GLUCOSE - HAMILTON DOCKED DEVICE Routine 06/24/2024 5:38 AM COUTURE ALTERATIONS DRESSMAKER VANCOMYCIN TIMED 06/24/2024 5:30 AM COUTURE ALTERATIONS DRESSMAKER COMPREHENSIVE METABOLIC PANEL Routine 06/24/2024 5:30 AM COUTURE ALTERATIONS DRESSMAKER CBC W/DIFF AUTOMATED Routine 06/24/2024 5:30 AM COUTURE ALTERATIONS DRESSMAKER POCT GLUCOSE - HAMILTON DOCKED DEVICE Routine 06/23/2024 11:43 PM COUTURE ALTERATIONS DRESSMAKER POCT GLUCOSE - HAMILTON DOCKED DEVICE Routine 06/23/2024 10:28 PM COUTURE ALTERATIONS DRESSMAKER XR CHEST PORTABLE STAT 06/23/2024 9:3 2 PM COUTURE ALTERATIONS DRESSMAKER PRO-BRAIN NATRIURETIC PEPTIDE Routine 06/23/2024 9:32 PM COUTURE ALTERATIONS DRESSMAKER OSMOLALITY, BLOOD Routine 06/23/2024 9:3 2 PM COUTURE ALTERATIONS DRESSMAKER POCT GLUCOSE - HAMILTON DOCKED DEVICE Routine 06/23/2024 9:[address] ORBITS W CON STAT 06/23/2024 7:20 PM COUTURE ALTERATIONS DRESSMAKER CULTURE, BACTERIA, BLOOD STAT 06/23/2024 6:37 PM COUTURE ALTERATIONS DRESSMAKER PROCALCITONIN (PCT) STAT 06/23/2024 5 :51 PM COUTURE ALTERATIONS DRESSMAKER C-REACTIVE PROTEIN, HIGH SENSI STAT 06/23/2024 5:51 PM COUTURE ALTERATIONS DRESSMAKER SED RATE, ERYTHROCYTE (ESR) STAT 06/23/2024 5:51 PM COUTURE ALTERATIONS DRESSMAKER LACTIC ACID W REFLEX (SEPSIS) STAT 06/23/2024 5:51 PM COUTURE ALTERATIONS DRESSMAKER COMPREHENSIVE METABOLIC PANEL STAT 06/23/2024 5:51 PM COUTURE ALTERATIONS DRESSMAKER CBC W/DIFF AUTOMATED STAT 06/23/2024 5:51 PM COUTURE ALTERATIONS DRESSMAKER from Last 3 Months Results * (ABNORMAL) POCT glucose (08/24/2024 11:46 AM COUTURE ALTERATIONS DRESSMAKER) Only the most recent of35 resultswithin the time period is included. GLUCOSE POC 294(H) 70 - 99 mg/dL 08/24/2024 11:49 AM COUTURE ALTERATIONS DRESSMAKER [facility] 08/24/2024 11:4 6 AM COUTURE ALTERATIONS DRESSMAKER us Oscar Glavan MD POCT ORDERABLES - DEVICE Final Result [facility] [address] [place] [address], [place] [phone] * (ABNORMAL) BASIC METABOLIC PANEL (08/24/2024 8:18 AM COUTURE ALTERATIONS DRESSMAKER) Only the most recent of9 resultswithin the time period is included. GLUCOSE 203(H) 70 - 99 MG/DL 08/24/2024 8:49 AM [facility] BUN 9 7 - 18 MG/DL 08/24/2024 8:49 AM [facility] CREATININE S/P/B 0.65 0.55 - 1.02 MG/DL 08/24/2024 8:49 AM [facility] SODIUM S/P/B 138 136 - 145 MMOL/L 08/24/2024 8:49 AM [facility] POTASSIUM S/P/B 3.6 3.5 - 5.1 MMOL/L 08/24/2024 8:49 AM [facility] CHLORIDE S/P/B 112 97 - 115 MMOL/L 08/24/2024 8:49 AM [facility] CO2 19.1(L) 21 - 32 MMOL/L 08/24/2024 8:49 AM [facility] CALCIUM S/P/B 8.0(L) 8.5 - 10.1 MG/DL 08/24/2024 8:49 AM [facility] ANION GAP 6.9 2 - 10 MMOL/L 08/24/2024 8:49 AM [facility] BUN CREATININE RATIO 13.9 6 - 26 08/24/2024 8:49 AM [facility] GFR ESTIMATE >90 >90 ML/MIN/1.7 3 M2 08/24/2024 8:49 AM [facility] Comment: NOTE: eGFR is not calculated for patients <18 years of age or gender unknown. This is an estimated GFR calculation using the new CKD EPI creatinine equation without race and so does not require a correction factor for race. This estimated GFR should not be used for calculating drug doses. 08/24/2024 8:18 AM COUTURE ALTERATIONS DRESSMAKER us Roni Toth MD LABORATORY Final Result [facility] [address] [place] [address], [place] [phone] * (ABNORMAL) COMPREHENSIVE METABOLIC PANEL (08/24/2024 5:53 AM COUTURE ALTERATIONS DRESSMAKER) Only the most recent of6 resultswithin the time period is included. [facility] GLUCOSE 172(H) 70 - 99 MG/DL 08/24/2024 6:36 AM COUTURE ALTERATIONS DRESSMAKER [facility] BUN 10 7 - 18 MG/DL 08/24/2024 6:36 AM [facility] CREATININE S/P/B 0.64 0.55 - 1.02 MG/DL 08/24/2024 6:36 AM [facility] SODIUM S/P/B 137 136 - 145 MMOL/L 08/24/2024 6:36 AM [facility] POTASSIUM S/P/B 3.7 3.5 - 5.1 MMOL/L 08/24/2024 6:36 AM [facility] CHLORIDE S/P/B 112 97 - 115 MMOL/L 08/24/2024 6:36 AM [facility] CO2 19.2(L) 21 - 32 MMOL/L 08/24/2024 6:36 AM [facility] CALCIUM S/P/B 8.1(L) 8.5 - 10.1 MG/DL 08/24/2024 6:36 AM [facility] BILIRUBIN TOTAL S/P/B 0.2 0.2 - 1.2 MG/DL 08/24/2024 6:36 AM [facility] Comment: THIS ASSAY IS NOT RECOMMENDED FOR PATIENTS UNDERGOING TREATMENT WITH ELTROMBOPAG DUE TO THE POTENTIAL FOR FALSELY ELEVATED RESULTS. TOTAL PROTEIN S/P/B 6.5 6.4 - 8.2 G/DL 08/24/2024 6:36 AM [facility] ALBUMIN S/P/B 2.6(L) 3.4 - 5.0 G/DL 08/24/2024 6:36 AM [facility] AST 7(L) 15 - 37 U/L 08/24/2024 6:36 AM [facility] ALT 14 14 - 55 U/L 08/24/2024 6:36 AM [facility] ALKALINE PHOSPHATASE S/P/B 132 50 - 136 U/L 08/24/2024 6:36 AM [facility] ANION GAP 5.8 2 - 10 MMOL/L 08/24/2024 6:36 AM [facility] BUN CREATININE RATIO 15.7 6 - 26 08/24/2024 6:36 AM [facility] A/G RATIO 0.7(L) 1.0 - 2.0 RATIO 08/24/2024 6:36 AM [facility] GFR ESTIMATE >90 >90 ML/MIN/1.7 3 M2 08/24/2024 6:36 AM [facility] Comment: NOTE: eGFR is not calculated for patients <18 years of age or gender unknown. This is an estimated GFR calculation using the new CKD EPI creatinine equation without race and so does not require a correction factor for race. This estimated GFR should not be used for calculating drug doses. 08/24/2024 5:53 AM COUTURE ALTERATIONS DRESSMAKER Alicja Keller MD LABORATORY Final Result [facility] [address] [place] [address], [place] [phone] * (ABNORMAL) CBC W/DIFF AUTOMATED (08/24/2024 5:53 AM COUTURE ALTERATIONS DRESSMAKER) Only the most recent of7 resultswithin the time period is included. WBC 7.17 4.5 - 11.0 x10'3/uL 08/24/2024 6:18 AM [facility] RBC 4.02(L) 4.20 - 5.40 x10'6/uL 08/24/2024 6:18 AM [facility] HGB 10.6(L) 12.0 - 16.0 G/DL 08/24/2024 6:18 AM [facility] HCT 32.1(L) 38.0 - 48.0 % 08/24/2024 6:18 AM [facility] MCV 79.9(L) 81.0 - 99.0 FL 08/24/2024 6:18 AM [facility] MCH 26.4(L) 27.0 - 31.0 PG 08/24/2024 6:18 AM [facility] MCHC 33.0 32.0 - 36.0 G/DL 08/24/2024 6:18 AM [facility] RDW 14.5 11.5 - 14.5 % 08/24/2024 6:18 AM [facility] PLT 353 130 - 400 x10'3/uL 08/24/2024 6:18 AM [facility] MPV 9.5 9.3 - 12.2 FL 08/24/2024 6:18 AM [facility] DIFFERENTIAL TYPE AUTOMATED DIFFERENTIAL 08/24/2024 6:18 AM [facility] NEUTROPHILS % 70.4 % 08/24/2024 6:18 AM [facility] LYMPHOCYTES % 18.8 % 08/24/2024 6:18 AM [facility] MONOCYTES % 6.3 % 08/24/2024 6:18 AM [facility] EOSINOPHILS 3.5 % 08/24/2024 6:18 AM [facility] BASOPHILS 0.6 % 08/24/2024 6:18 AM [facility] IMMATURE GRANS % 0.4 % 08/24/19 6:18 AM [facility] ABS. NEUTROPHILS 5.05 1.80 - 7.70 x10'3/uL 08/24/2024 6:18 AM [facility] ABS. LYMPHOCYTES 1.35 1.00 - 4.80 x10'3/uL 08/24/2024 6:18 AM [facility] ABS. MONOCYTES 0.45 0.24 - 0.86 x10'3/uL 08/24/2024 6:18 AM [facility] ABS. EOSINOPHILS 0.25 0.04 - 0.36 x10'3/uL 08/24/2024 6:18 AM [facility] ABS. BASOPHILS 0.04 0.01 - 0.08 x10'3/uL 08/24/2024 6:18 AM [facility] ABS. IMMATURE GRANULOCYTES 0.03 0.00 - 0.49 x10'3/uL 08/24/2024 6:18 AM [facility] 08/24/2024 5:53 AM COUTURE ALTERATIONS DRESSMAKER Alicja Keller MD LABORATORY Final Result [facility] [address] [place] [address], * ECG 12 lead (08/23/2024 4:25 PM C[employer]URE ALTERATIONS DRESSMAKER) Only the most recent of2 resultswithin the time period is included. 08/23/2024 4:25 PM COUTURE ALTERATIONS DRESSMAKER Narrative [facility] ([facility] - 08/23/2024 11:[address] 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 [employer]ESSMAKER Procedure Note Giuseppe Mg MD - 08/23/2024 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 [employer] us William Steve DO ECG ORDERABLES Final Result [facility] RAD * TSH W/REFLEX (08/23/2024 4:19 PM [employer]) Only the most recent of2 resultswithin the time period is included. TSH 3.120 0.358 - 3.74 uIU/ML 08/23/2024 5:22 PM [employer] [facility] Comment: HIGH DOSES OF BIOTIN MAY INTERFERE WITH THIS TEST RESULT. CORRELATION TO CLINICAL HISTORY AND PRESENTATION RECOMMENDED. FREE T4 NOT INDICATED 08/23/2024 4:19 PM [employer] William Steve DO LABORATORY Final Result Performing Organization Address City/[facility]/ZIP Co de Phone Number [facility] [address] [place] [address], * (ABNORMAL) LIPID PANEL (08/23/2024 4:19 PM [employer]) CHOLESTEROL 215(H) <200 MG/DL 08/23/2024 5:22 PM [facility] TRIGLYCERIDES 167(H) <150 MG/DL 08/23/2024 5:22 PM [facility] HDL 74 >40.0 MG/DL 08/23/2024 5:22 PM [facility] LDL (CALCULATED) 108(H) <100 MG/DL 08/23/2024 5:22 PM [employer] [facility] NON HDL CHOLESTEROL 141(H) <130 MG/DL 08/23/2024 5:22 PM [facility] CHOL/HDL RATIO 2.9 0.0 - 4.5 08/23/2024 5:22 PM [facility] VLDL CALCULATION 33 5 - 55 MG/DL 08/23/2024 5:22 PM [employer] [facility] LIPID INTERPRETATION 08/23/2024 5:22 PM [employer] [facility] Comment: [facility] REPORT RECOMMENDATIONS: ADULT CHILD LOW RISK: CHOLESTEROL <200 <170 TRIGLYCERIDE <150 --- HDL >=60 --- LDL <100 <110 BORDERLINE: CHOLESTEROL 200-239 170-199 TRIGLYCERIDE 150-199 --- HDL 40-59 --- LDL 100-159 110-129 HIGH RISK: CHOLESTEROL >=240 >=200 TRIGLYCERIDE >=200 --- HDL <40 --- LDL >=160 >=130 08/23/2024 4:19 PM [employer] William Steve DO LABORATORY Final Result [facility] [address] [place] [address], * (ABNORMAL) Blood gas, venous (08/23/2024 3:40 PM [employer]) Only the most recent of3 resultswithin the time period is included. PH VENOUS 7.11(LL) 7.32 - 7.43 08/23/2024 3:47 PM [employer] [facility] Comment: Successful Call: [facility] called 08/23/2024 03:49 PM to OSCAR GALVAN MD ( /OSCAR GALVAN MD) by [phone]. Read Back: Yes PCO2 VENOUS 28.0 MMHG 08/23/2024 3:47 PM [employer] [facility] Comment:NO REFERENCE RANGE H BEEN ESTABLISHED PO2 VENOUS 46.0 MM HG 08/23/2024 3:47 PM [facility] Comment:NO REFERENCE RANGE H BEEN ESTABLISHED TOTAL CO2 VENOUS 9.8(L) 22.0 - 26.0 MMOL/L 08/23/2024 3:47 PM COUTURE ALTERATIONS DRESSMAKER [facility] BASE DEFICIT VENOUS 19.2 MMOL/L 08/23/2024 3:47 PM COUTURE ALTERATIONS DRESSMAKER [facility] Comment:NO REFERENCE RANGE H BEEN ESTABLISHED O2 SAT VENOUS 64 % 08/23/2024 3:47 PM COUTURE ALTERATIONS DRESSMAKER [facility] Comment:NO REFERENCE RANGE H BEEN ESTABLISHED BICARB VENOUS 8.9(L) 22.0 - 29.0 MMOL/L 08/23/2024 3:47 PM COUTURE ALTERATIONS DRESSMAKER [facility] O2 ADMIN VENOUS 21 3:43 PM COUTURE ALTERATIONS DRESSMAKER [facility] 08/23/2024 3:40 PM COUTURE ALTERATIONS DRESSMAKER Jax Luisito LAWSON LABORATORY Final Result [facility] [address] [place] [address], [place] [phone] * (ABNORMAL) URINALYSIS (08/23/2024 3:09 PM COUTURE ALTERATIONS DRESSMAKER) Only the most recent of2 resultswithin the time period is included. SPECIMEN TYPE URINE CLEAN CATCH 08/23/2024 3:09 PM COUTURE ALTERATIONS DRESSMAKER [facility] COLOR (U) YELLOW 08/23/2024 3:54 PM COUTURE ALTERATIONS DRESSMAKER [facility] TRANSPARENCY TURBID 08/23/2024 3:54 PM COUTURE ALTERATIONS DRESSMAKER [facility] SPECIFIC GRAVITY (U) 1.030 1.001 - 1.030 08/23/2024 3:54 PM COUTURE ALTERATIONS DRESSMAKER [facility] U PH 5.0 5.0 - 9.0 08/23/2024 3:54 PM [facility] LEUKOCYTES (U) 500(A) NEGATIVE 08/23/2024 3:54 PM COUTURE ALTERATIONS DRESSMAKER [facility] NITRITES NEGATIVE NEGATIVE 08/23/2024 3:54 PM COUTURE ALTERATIONS DRESSMAKER [facility] PROTEIN RANDOM (U) 50(H) <30 MG/DL 08/23/2024 3:54 PM COUTURE ALTERATIONS DRESSMAKER [facility] GLUCOSE (U) >1000(A) NORMAL MG/DL 08/23/2024 3:54 PM COUTURE ALTERATIONS DRESSMAKER [facility] KETONES MG/DL (U) >150(A) NEGATIVE MG/DL 08/23/2024 3:54 PM [facility] Comment: Successful Call: UKETShari called 08/23/2024 03:55 PM to EMERGENCY ROOM ([id number]/[place]) by [id number]. Read Back: Yes UROBILINOGEN NORMAL NORMAL MG/DL 08/23/2024 3:54 PM COUTURE ALTERATIONS DRESSMAKER [facility] BILIRUBIN (U) NEGATIVE NEGATIVE MG/DL 08/23/2024 3:54 PM [facility] BLOOD (U) 1+(A) NEGATIVE 08/23/2024 3:54 PM COUTURE ALTERATIONS DRESSMAKER [facility] MUCUS RARE /LPF 08/23/2024 3:54 PM COUTURE ALTERATIONS DRESSMAKER [facility] HYALINE CASTS RARE /LPF 08/23/2024 3:54 PM COUTURE ALTERATIONS DRESSMAKER [facility] WBC/HPF >100(H) <6 /HPF 08/23/2024 3:54 PM COUTURE ALTERATIONS DRESSMAKER [facility] RBC/HPF >100(H) <6 /HPF 08/23/2024 3:54 PM COUTURE ALTERATIONS DRESSMAKER [facility] SQUAMOUS EPITHELIALS RARE /HPF 08/23/2024 3:54 PM COUTURE ALTERATIONS DRESSMAKER [facility] URINE SPECIMEN OBTAINED BY CLEAN CATCH PROCEDURE / Unknown 08/23/2024 3:09 PM COUTURE ALTERATIONS DRESSMAKER us Oscar Galvan MD URINE ORDERABLES Final Result [facility] [address] [place] [address], * XR CHEST PORTABLE (08/23/2024 3:02 PM COUTURE ALTERATIONS DRESSMAKER) Only the most recent of3 resultswithin the time period is included. Anatomical Region Laterality Modality Chest Radiographic Arielle ging 08/23/2024 3:03 PM COUTURE ALTERATIONS DRESSMAKER Impressions 08/23/2024 3:07 PM COUTURE ALTERATIONS DRESSMAKER Impression: No acute findings. Referred By: Interpreted By: Roge More MD, 08/23/2024 3:03 PM Narrative 08/23/2024 3:07 PM COUTURE ALTERATIONS DRESSMAKER [address] [address] Examination: Chest 1 view portable History: Weakness DATE/TIME: 08/23/2024 2:48 PM Comparison: July 09, 2024 Technique: AP upright portable view of the chest was obtained. Findings: Heart size, mediastinal contours and pulmonary vasculature are within normal limits. No pulmonary consolidation, pleural effusion or pneumothorax. No acute osseous abnormality. Right fourth rib fracture. Procedure Note Roge More MD - 08/23/[address] [address] Examination: Chest 1 view portable History: Weakness DATE/TIME: 08/23/2024 2:48 PM Comparison: July 09, 2024 Technique: AP upright portable view of the chest was obtained. Findings: Heart size, mediastinal contours and pulmonary vasculature arewithin normal limits. No pulmonary consolidation, pleural effusion orpneumothorax. No acute osseous abnormality. Right fourth rib fracture. Impression: No acute findings. Referred By: Interpreted By: Roge More MD, 08/23/2024 3:03 PM us Bebeto Hanna DO GENERAL IMAGING Final Result * LACTIC ACID (08/23/2024 3:00 PM COUTURE ALTERATIONS DRESSMAKER) LACTIC ACID VENOUS 0.9 0.4 - 2.0 MMOL/L 08/23/2024 3:50 PM COUTURE ALTERATIONS DRESSMAKER [facility] 08/23/2024 3:00 PM COUTURE ALTERATIONS DRESSMAKER us Bebeto Hanna DO LABORATORY Final Result Performing Organization Address City/[facility]/ZIP Co de Phone Number [facility] [address] [place] [address], * PHOSPHORUS, INORGANIC PHOSPHATE (08/23/2024 10:27 AM COUTURE ALTERATIONS DRESSMAKER) PHOSPHORUS 2.8 2.5 - 4.9 MG/DL 08/23/2024 2:11 PM COUTURE ALTERATIONS DRESSMAKER [facility] 08/23/2024 10:2 7 AM COUTURE ALTERATIONS DRESSMAKER David Connelly MOBILE NURSE LABORATORY Final Result Performing Organization Address [facility] Co de Phone Number [facility] [address] [place] [address], [place] [phone] * MAGNESIUM (08/23/2024 10:27 AM COUTURE ALTERATIONS DRESSMAKER) Only the most recent of2 resultswithin the time period is included. MAGNESIUM 2.1 1.8 - 2.4 MG/DL 08/23/2024 2:11 PM COUTURE ALTERATIONS DRESSMAKER [facility] Comment:SLIGHT HEMOLYSIS, RE SULT MAY BE AFFECTED. 08/23/2024 10:2 7 AM COUTURE ALTERATIONS DRESSMAKER us David Connelly MOBILE NURSE LABORATORY Final Result Performing Organization Address City/[facility]/ZIP Co de Phone Number [facility] [address] [place] [address], * (ABNORMAL) HEMOGLOBIN, GLYCOSYLATED (07/09/2024 2:43 PM COUTURE ALTERATIONS DRESSMAKER) Pathologist [facility] HGB A1C 16.9(H) <5.7 % 07/09/2024 9:36 PM COUTURE ALTERATIONS DRESSMAKER [facility] Comment: ADA GUIDELINES 2010 5.7 TO 6.4% INCREASED RISK OF DIABETES > OR = 6.5% CONSISTENT WITH DIABETES ESTIMATED AVG GLUCOSE 438 mg/dL 07/09/2024 9:36 PM COUTURE ALTERATIONS DRESSMAKER [facility] 07/09/2024 2:43 PM COUTURE ALTERATIONS DRESSMAKER Jayme Francois NP LABORATORY Final Result [facility] [address] [place] [address], * (ABNORMAL) DRUG SCREEN RAPID (07/09/2024 2:02 PM COUTURE ALTERATIONS DRESSMAKER) [facility] AMPHETAMINE (U) NEGATIVE NEGATIVE 2:37 PM COUTURE ALTERATIONS DRESSMAKER [facility] BARBITURATES SCREEN (U) NEGATIVE NEGATIVE 07/09/2024 2:37 PM COUTURE ALTERATIONS DRESSMAKER [facility] BENZODIAZEPINES SCREEN (U) NEGATIVE NEGATIVE 07/09/2024 2:37 PM COUTURE ALTERATIONS DRESSMAKER [facility] CANNABINOIDS SCREEN (U) NEGATIVE NEGATIVE 07/09/2024 2:37 PM COUTURE ALTERATIONS DRESSMAKER [facility] COCAINE METABOLITES (U) NEGATIVE NEGATIVE 07/09/2024 2:37 PM COUTURE ALTERATIONS DRESSMAKER [facility] METHADONE (U) NEGATIVE NEGATIVE 07/09/2024 2:37 PM COUTURE ALTERATIONS DRESSMAKER [facility] OPIATE SCREEN (U) NEGATIVE NEGATIVE 2:37 PM COUTURE ALTERATIONS DRESSMAKER [facility] PHENCYCLIDINE PCP (U) NEGATIVE NEGATIVE 07/09/2024 2:37 PM COUTURE ALTERATIONS DRESSMAKER [facility] Comment: NOTE: RESULTS OF THIS DRUG SCREEN SHOULD BE USED FOR MEDICAL PURPOSES ONLY AND NOT FOR LEGAL OR EMPLOYMENT PURPOSES. POSITIVE RESULTS ARE NOT CONFIRMED. MEDICATIONS CONTAINING EPHEDRINE MAY CAUSE FALSE POSITIVE AMPHETAMINE CALL [phone], LAB, TO REQUEST CONFIRMATION TESTING. IF CREATININE IS <40 mg/dL. RECOLLECTION IS SUGGESTED. AMPHETAMINE- 500 NG/ML BARBITURATE- 200 NG/ML BENZODIAZEPINES- 200 NG/ML THC- 50 NG/ML COCAINE- 150 NG/ML METHADONE- 300 NG/ML OPIATE- 300 MG/ML PCP- 25 NG/ML CREATININE (U) 23.7(L) 28 - 217 MG/DL 07/09/2024 2:37 PM COUTURE ALTERATIONS DRESSMAKER [facility] URINE SPECIMEN / Unknown 07/09/2024 2:02 PM COUTURE ALTERATIONS DRESSMAKER David BALL URINE ORDERABLES Final Res ult [facility] [address] [place] [address], [place] [phone] * THYROXINE, FREE (FT4) (07/09/2024 10:42 AM COUTURE ALTERATIONS DRESSMAKER) Pathologist [facility] FREE T4 0.84 0.76 - 1.46 NG/DL 07/09/2024 1:34 PM COUTURE ALTERATIONS DRESSMAKER [facility] 07/09/2024 10:4 2 AM COUTURE ALTERATIONS DRESSMAKER David BALL LABORATORY Final Resu lt [facility] [address] [place] [address], [place] [phone] * TROPONIN, QUANT (07/09/2024 10:42 AM COUTURE ALTERATIONS DRESSMAKER) [facility] TROPONIN I HIGH SENSITIVITY 46 <54 ng/L 07/09/2024 11:19 AM COUTURE ALTERATIONS DRESSMAKER [facility] Comment: HIGH DOSES OF BIOTIN, TROPONIN-SPECIFIC AUTOANTIBODIES, AND ANTIBODY THERAPY CONTAINING HAMA MAY INTERFERE WITH THIS TEST RESULT. CORRELATION TO CLINICAL HISTORY AND PRESENTATION RECOMMENDED. 07/09/2024 10:4 2 AM COUTURE ALTERATIONS DRESSMAKER Brianna BALL LABORATORY Final Result [facility] [address] [place] [address], * LIPASE (07/09/2024 10:42 AM COUTURE ALTERATIONS DRESSMAKER) Pathologist [facility] LIPASE 24 13 - 75 UNITS/L 07/09/2024 11:19 AM COUTURE ALTERATIONS DRESSMAKER [facility] 07/09/2024 10:4 2 AM COUTURE ALTERATIONS DRESSMAKER Brianna BALL LABORATORY Final Result Performing Organization Address City/[facility]/ZIP Co de Phone Number [facility] [address] [place] [address], [place] [phone] * ETHANOL (07/09/2024 10:42 AM COUTURE ALTERATIONS DRESSMAKER) Pathologist [facility] ALCOHOL S/P/B <0.003 <0.003 G/DL 07/09/2024 12:56 PM COUTURE ALTERATIONS DRESSMAKER [facility] 07/09/2024 10:4 2 AM COUTURE ALTERATIONS DRESSMAKER David BALL LABORATORY Final Resu lt [facility] [address] [place] [address], * SODIUM URINE RANDOM (06/24/2024 5:40 AM COUTURE ALTERATIONS DRESSMAKER) NA RANDOM (U) 19 MMOL/L 06/25/2024 7:50 AM COUTURE ALTERATIONS DRESSMAKER [facility] Comment:REFERENCE RANGE NOT ESTABLISHED URINE SPECIMEN / Unknown 06/24/2024 5:40 AM COUTURE ALTERATIONS DRESSMAKER us Lydia Taveras LEATHER BELT SHAPER URINE ORDERABLES Final Resu lt Performing Organization Address City/[facility]/ZIP Co de Phone Number [facility] [address] [place] [address], [place] [phone] * OSMOLALITY, URINE (06/24/2024 5:40 AM COUTURE ALTERATIONS DRESSMAKER) OSMOLALITY (U) 925 50 - 1,200 MOSM/KG 06/24/2024 5:59 AM COUTURE ALTERATIONS DRESSMAKER [facility] URINE SPECIMEN / Unknown 06/24/2024 5:40 AM COUTURE ALTERATIONS DRESSMAKER us Lydia Taveras LEATHER BELT SHAPER URINE ORDERABLES Final Resu lt Performing Organization Address [facility] Co de Phone Number [facility] [address] [place] [address], [place] [phone] * Vancomycin Random Level (06/24/2024 5:30 AM COUTURE ALTERATIONS DRESSMAKER) VANCOMYCIN RANDOM 4.4 MCG/ML 06/24/2024 6:15 AM COUTURE ALTERATIONS DRESSMAKER [facility] Comment:NO THERAPEUTIC RANGE AVAILABLE LAST DOSE UNKNOWN LAST DOSE 06/24/2024 7:31 AM COUTURE ALTERATIONS DRESSMAKER [facility] 06/24/2024 5:30 AM COUTURE ALTERATIONS DRESSMAKER us Lydia Taveras LEATHER BELT SHAPER LABORATORY Final Resul t [facility] [address] [place] [address], [place] [phone] * PRO-BRAIN NATRIURETIC PEPTIDE (06/23/2024 9:32 PM COUTURE ALTERATIONS DRESSMAKER) PRO-B TYPE NATRIURETIC PEPTIDE 47 <125 PG/ML 06/24/2024 12:59 AM COUTURE ALTERATIONS DRESSMAKER [facility] Comment: CUT POINTS ESTABLISHED [...] 72% FOR ACUTE CHF. 06/23/2024 9:32 PM COUTURE ALTERATIONS DRESSMAKER us Lydia Taveras APRN LABORATORY Final Resul t [facility] [address] [place] [address], [place] [phone] * (ABNORMAL) OSMOLALITY, BLOOD (06/23/2024 9:32 PM COUTURE ALTERATIONS DRESSMAKER) OSMOLALITY (S/P/B) 299(H) 270 - 290 MOSM/KG 06/23/2024 9:56 PM COUTURE ALTERATIONS DRESSMAKER [facility] 06/23/2024 9:32 PM COUTURE ALTERATIONS DRESSMAKER us Lydia Taveras APRN LABORATORY Final Resul t [facility] [address] [place] [address], [place] [phone] * CT ORBITS W CON (06/23/2024 7:20 PM COUTURE ALTERATIONS DRESSMAKER) Anatomical Region Laterality Modality Orbits Computed Tomogra phy 06/23/2024 7:27 PM COUTURE ALTERATIONS DRESSMAKER Impressions 06/23/2024 7:39 PM COUTURE ALTERATIONS DRESSMAKER IMPRESSION: 1. Large area of abnormal periorbital soft tissue. 2. Asymmetric conjunctival enhancement on the right side. Potential anterior scleral enhancement on the right side. Referred By: Interpreted By: Flynn Flores MD, 06/23/2024 7:27 PM Narrative 06/23/2024 7:39 PM COUTURE ALTERATIONS DRESSMAKER [address] [address] EXAM: CT ORBITS W CON DATE: 06/23/2024 [...] and over the right maxillary sinus wall. No focal [...] are clear. No bone destruction. The orbital nybwb-dd-mvrh does not include the oral cavity. This could be correlated with direct visualization of the teeth as oral pathology could potentially extend into the facial soft tissues. Normal enhancement of the visualized portions of the parotid glands. Procedure Note Flynn Flores MD - 06/23/20[address] [place], [place] [address] EXAM: CT ORBITS W CON DATE: 06/23/2024 [...] sinuses are clear. No bone destruction. The dwiruiidzdpi-xk-wond does not include the oral cavity. This [...] Flores MD, 06/23/2024 7:27 PM David Connelly MOBILE NURSE CT Final Result * CULTURE, BACTERIA, BLOOD (06/23/2024 6:37 PM COUTURE ALTERATIONS DRESSMAKER) SPEC DESCRIPTION BLOOD 06/23/2024 6:25 PM COUTURE ALTERATIONS DRESSMAKER [facility] SPECIAL REQUESTS NO SPECIAL REQUEST 06/23/2024 6:25 PM COUTURE ALTERATIONS DRESSMAKER [facility] CULTURE RESULT NO GROWTH 5 DAYS 06/28/2024 6:39 AM COUTURE ALTERATIONS DRESSMAKER [facility] BLOOD SPECIMEN OBTAINED FOR BLOOD CULTURE / Unknown 06/23/2024 6:37 PM COUTURE ALTERATIONS DRESSMAKER 06/23/2024 6:45 PM COUTURE ALTERATIONS DRESSMAKER Sim Reed MD MICROBIOLOGY - GENERA L ORDERABLES Final Result Performing Organization Address City/[facility]/ZIP Co de Phone Number [facility] [address] [place] [address], [place] [phone] * LACTIC ACID W REFLEX (SEPSIS) (06/23/2024 5:51 PM COUTURE ALTERATIONS DRESSMAKER) LACTIC ACID VENOUS 1.2 0.4 - 2.0 MMOL/L 06/23/2024 6:43 PM COUTURE ALTERATIONS DRESSMAKER [facility] 06/23/2024 5:51 PM COUTURE ALTERATIONS DRESSMAKER David Connelly NP LABORATORY Final Result Performing Organization Address [facility] Co de Phone Number [facility] [address] [place] [address], [place] [phone] * PROCALCITONIN (PCT) (06/23/2024 5:51 PM COUTURE ALTERATIONS DRESSMAKER) Procalcitonin 0.12 0.00 - 0.49 NG/ML 06/23/2024 7:06 PM COUTURE ALTERATIONS DRESSMAKER [facility] 06/23/2024 5:51 PM COUTURE ALTERATIONS DRESSMAKER David Connelly MOBILE NURSE LABORATORY Final Result Performing Organization Address City/[facility]/ZIP Co de Phone Number [facility] [address] [place] [address], [place] [phone] * SED RATE, ERYTHROCYTE (ESR) (06/23/2024 5:51 PM COUTURE ALTERATIONS DRESSMAKER) ESR 7 <20 MM/HR 06/23/2024 6:42 PM COUTURE ALTERATIONS DRESSMAKER [facility] Comment:Testing performed on Von i[employer]ESS. 06/23/2024 5:51 PM COUTURE ALTERATIONS DRESSMAKER David Connelly MOBILE NURSE LABORATORY Final Result [facility] [address] [place] [address], [place] [phone] * (ABNORMAL) C-REACTIVE PROTEIN, HIGH SENSI (06/23/2024 5:51 PM COUTURE ALTERATIONS DRESSMAKER) HS-CRP 3.85(H) <0.3 mg/dL 06/23/2024 6:53 PM COUTURE ALTERATIONS DRESSMAKER [facility] 06/23/2024 5:51 PM COUTURE ALTERATIONS DRESSMAKER Dvaid Connelly MOBILE NURSE LABORATORY Final Result Performing Organization Address [facility] Co de Phone Number [facility] [address] [place] [address], [place] [phone] from Last 3 Months Additional Health Concerns Infection Onset Date Last Indicated MRSA Comment:04/03/24 +MRSA Left axilla 04/07/24 +MRSA Left axilla 04/03/2024 04/07/2024 Insurance Advance Directives * Full Code (Latest Code Status on File) Date Activated Date Inactivated Comments 08/23/2024 2:52 PM 08/24/2024 5:55 PM * Full Code Date Activated Date Inactivated Comments 07/09/2024 1:07 PM 07/10/2024 11:58 AM * Full Code Date Activated Date Inactivated Comments 07/09/2024 12:27 PM 07/09/2024 1:07 PM * Full Code Date Activated Date Inactivated Comments 06/23/2024 8:17 PM 06/25/2024 1:54 PM * Full Code Date Activated Date Inactivated Comments 04/07/2024 1:40 AM 04/09/2024 3:18 PM Care Teams Biomedical Engineering Director Relationship Specialty Start Date End Date None, Provider, PCP - General UNKNOWN PHYSICIAN SPECIALTY 08/23/24 Rosalia Garcia MD [address] [facility] [place] [phone] Consulting Physician ENDOCRINOLOGY 03/29/24
--- OUTSIDE RECORDS SUMMARY | 2024-09-19 23:15 | XMS_ITS | Encounter Summary ---
Author Organization [facility] Address [address] [place] [address] Care Team Providers Care Director Database Name Role Phone None, Provider Primary Care Provider Anitra ble Encounter Details Date Type Department Care Team (Latest Contact Info) Description 09/19/2024 Travel Social History Tobacco Use Types Packs/Day Years Used Date Smoking Tobacco: Some Days Cigarettes 0.5 15 Smokeless Tobacco: Current Alcohol Use Standard Drinks/Week Comments Not Currently 0 (1 standard drink = 0.6 oz pur e alcohol) [facility] Utilities Answer Date Recorded In the past 12 months has e [employer], gas, oil, or water [employer] threatened to shut off services in your [...] often do you attend chur ch or episcopalian services? Never 06/24/2024 Do you belong to any clubs o r organizations such as latter day groups, unions, fraternal or athletic groups, or [...] Recorded Patient Health Questionnaire-2 Score 2 06/19/2024 [facility] - Occupational Stress [...] any time in the past 12 m [facility], were you homeless or living in a detention (including now)? No 06/24/2024 Comments No Sex and Gender Information Value Date Recorded Sex Assigned at Female 08/23/2024 9:22 AM CONTENT ANALYST Legal Sex Female 7:10 PM CDT Gender Identity Not on file Sexual Orientation Not on file documented as of this encounter Functional Status * Are you deaf or do you have serious difficulty hearing Answer Date of Assessment Author Status No 08/24/2024 7:31 AM Dorie Doe RN Active * Are you blind or do you have serious difficulty seeing, even when wearing glasses? Answer Date of Assessment Author Status No 08/24/2024 7:31 AM Dorie Doe RN Active * Do you have serious difficulty walking or climbing stairs? Answer Date of Assessment Author Status No 08/24/2024 7:31 AM Dorie Doe RN Active * Do you have difficulty dressing or bathing? Answer Date of Assessment Author Status No 08/24/2024 7:31 AM Dorie Doe RN Active * Because of a physical, mental, or emotional condition, do you have difficulty doing errands alone such as visiting a doctor's office or shopping? Answer Date of Assessment Author Status No 08/24/2024 7:31 AM Dorie Doe RN Active documented as of this encounter Mental Status * Because of a physical, mental, or emotional condition, do you have serious difficulty concentrating, remembering, or making decisions? Answer Entry Date Author Status No 08/24/2024 7:31 AM Dorie Doe RN Active documented in this encounter Plan of Treatment Not on file documented as of this encounter Goals Goal Patient Goal Type Associated Problems Recent Progress Patient-Stated? Author Health - patient able to perform ADLs independently Lifestyle No Kole Virk i, RN documented as of this encounter Visit Diagnoses Not on filedocumented in this encounter Additional Health Concerns Infection Onset Date Last Indicated Resolved Time MRSA Comment:04/03/24 +MRSA Left axilla 04/07/24 +MRSA Left axilla 04/03/2024 04/07/2024 Assessment Noted Time PHQ-9 Depression Total Score: 7 06/19/20 24 3:39 PM CONTENT ANALYST documented as of this encounter Care Teams Director Database Relationship Specialty Start Date End Date None, Provider, PCP - General UNKNOWN PHYSICIAN SPECIALTY 08/23/24 Rosalia Garcia MD [address] [place] [phone] Consulting Physician ENDOCRINOLOGY 03/29/24 documented as of this encounter
--- OUTSIDE RECORDS SUMMARY | 2024-09-19 23:15 | XMS_ITS | Encounter Summary ---
Author Organization [facility] Address [facility] [facility] [place] [address] Care Team Providers Care Cad Programmer Name Role Phone Joesph Jacobo MD Primary Care Provider [phone] Reason for Visit * Reason Onset Date Comments MEDICATION REFILL 08/17/2024 Encounter Details Date Type Department Care Team (Late st Contact Info) Description 08/17/2024 Refill [facility] - Endocrinology [address] [place] [address], [place] [phone] Rosalia Hair MD [facility] [place] [phone] MEDICATION REFILL Social History Tobacco Use Types Packs/Day Years Used Date Smoking Tobacco: Unknown Sex and Gender Information Value Date Recorded Sex Assigned at Not on file Gender Identity Not on file Sexual Orientation Not on file documented as of this encounter Miscellaneous Notes * Telephone Encounter - Ivett De La Rosa MA - 08/17/2024 4:33 PM CST Refill Request Madeleine Reji ANDRES: 03/09/2024Jun due: 10/04/2024Jun scheduled: 10/04/2024 LRF: 03/13/2024 Qty Disp: 45 # of refills: 1 Allergies: No Known Allergies Pended Medication Order: Requested Prescriptions Pending Prescriptions Disp Refills Insulin Disposable Pump (Omnipod 5 [id number] Pods Gen 5) MISC OND SIZER AND GRADER documented in this encounter Plan of Treatment Upcoming Encounters Date Type Department Care Team (Late st Contact Info) Description 09/27/2024 9:45 AM DIAMOND SIZER AND GRADER Office Visit [facility] - Ophthalmology [address] [place] [phone] Buddy Fuller MD [address] [place] [address] [place] [phone] 10/04/2024 1:00 PM DIAMOND SIZER AND GRADER Office Visit [facility] - Endocrinology [address] [place] [phone] Rosalia Hair MD [address] [place] [address] [place] [phone] 10/12/2024 2:15 PM CDT Office Visit [facility] - Ophthalmology [address] [place] [phone] Sandeep Hernandez MD [address] [place] [address] [place] [phone] 10/24/2024 2:00 PM CDT [facility] [address] [place] [phone] Wong Ortiz MD [address] [place] [address] [place] [phone] 02/07/2025 8:30 AM CDT Office Visit [facility] - Rheumatology [address] [place] [phone] Roni Castañeda MD [address] [place] [address] [place] [phone] documented as of this encounter Visit Diagnoses Not on filedocumented in this encounter Care Teams Cad Programmer Relationship Specialty Start Date End Date Joesph Jacobo MD [address] [facility] [place] [phone] PCP - General Internal Medicine 08/10/24 documented as of this encounter
--- OUTSIDE RECORDS SUMMARY | 2024-09-19 23:15 | XMS_ITS | Encounter Summary ---
Author Organization [facility] Address [address] [facility] [place] [address] Care Team Providers Care Shaper And Presser Name Role Phone Joesph Jacobo MD Primary Care Provider [phone] Encounter Details Date Type Department Care Team (Late st Contact Info) Description 09/01/2024 Telephone [facility] - Endocrinology [address] [facility] [place] [phone] Annabelle Sandoval, RD/LD [address] [place] [address] Social History Tobacco Use Types Packs/Day Years Used Date Smoking Tobacco: Unknown Sex and Gender Information Value Date Recorded Sex Assigned at Not on file Gender Identity Not on file Sexual Orientation Not on file documented as of this encounter Miscellaneous Notes * Telephone Encounter - Sheree Gómez - 09/01/2024 9:55 AM CST Current Provider: Annabelle Sandoval Reason for Call: Ms. Pushpa cifuentes/ [employer] is calling to advise that Madeleine Mendoza's levothyroxine (Synthroid) 100 MCG tablet has been approved. It can now be sent to pharmacy to fill. [employer] ran test claims. It was approved for 30 and 90 day. Please do 90 day [id number] [address] [facility] [id number] [facility] As it relates to the insulin lispro (HumaLOG) 100 UNIT/ML vial [place] says there was issue w PRIOR AUTH. NEW PRIOR needs to be submitted, on cover letter, in BOLD LETTERS, write, this is a NEW PRIOR AUTH, not a duplicate. Annabelle is aware this should be a three day supply. Any questions please call Pushpa cifuentes [facility] [phone] Ext [phone] ANY questions please call Pushpa. I AM copying Froilan and Dr. Hair[facility] Office. Patient Call Back Number: [phone] PRESIDENT OF RECRUITING documented in this encounter Plan of Treatment Upcoming Encounters Date Type Department Care Team (Late st Contact Info) Description 09/27/2024 9:45 AM VICE PRESIDENT OF RECRUITING Office Visit [facility] - Ophthalmology [address] [place] [phone] Buddy Fuller MD [address] [place] [address] [place] [phone] 10/04/2024 1:00 PM VICE PRESIDENT OF RECRUITING Office Visit [facility] - Endocrinology [address] [place] [phone] Rosalia Hair MD [facility] [facility] [place] [address] 10/12/2024 2:15 PM CDT Office Visit [facility] - Ophthalmology [address] [place] [phone] Sandeep Hernandez MD [address] [place] [address] [place] [phone] 10/24/2024 2:00 PM CDT Office Visit [facility] - Ophthalmology [address] [place] [phone] Wong Ortiz MD [address] [place] [address] [place] [phone] 02/07/2025 8:30 AM CDT Office Visit [facility] - Rheumatology [facility] [facility] [place] [address] Roni Castañeda MD [facility] [place] [address] documented as of this encounter Visit Diagnoses Not on filedocumented in this encounter Care Teams Shaper And Presser Relationship Specialty Start Date End Date Joesph Jacobo MD [address] [place] [phone] PCP - General Internal Medicine 08/10/24 documented as of this encounter
--- OUTSIDE RECORDS SUMMARY | 2024-09-19 23:15 | XMS_ITS | Encounter Summary ---
Author Organization [facility] Address [address] [place] [address] Care Team Providers Care Product Distribution Specialist Name Role Phone Adair Finn APRN-BUSINESS SALES CONSULTANT Primary Care P rovider Joesph Jacobo MD Primary Care Provider [phone] Encounter Details Date Type Department Care Team (Late st Contact Info) Description 04/18/2024 Telephone [facility] - Endocrinology [address] [facility] [place] [phone] Bry Berrios MD [address] [facility] [place] [address] Social History Tobacco Use Types [...] Please call. Thanks Patient Call Back Number: [phone] documented in this encounter Plan of Treatment Upcoming Encounters Date Type Department Care Team (Late st Contact Info) Description 09/27/2024 9:45 AM SUPERVISOR POST WAVE Office Visit [facility] - Ophthalmology [address] [place] [phone] Buddy Fuller MD [address] [place] [address] [place] [phone] 10/04/2024 1:00 PM SUPERVISOR POST WAVE Office Visit [facility] - Endocrinology [address] [place] [phone] Rosalia Hair MD [address] [facility] [place] [phone] 10/12/2024 2:15 PM CDT Office Visit [facility] - Ophthalmology [address] [place] [phone] Sandeep Hernandez MD [address] [place] [address] [place] [phone] 10/24/2024 2:00 PM CDT Office Visit [facility] - Ophthalmology [address] [place] [phone] Wong Ortiz MD [address] [place] [address] [place] [phone] 02/07/2025 8:30 AM CDT Office Visit [facility] - Rheumatology [address] [place] [phone] Roni Castañeda MD [address] [place] [address] [place] [phone] documented as of this encounter Visit Diagnoses Not on filedocumented in this encounter Care Teams Product Distribution Specialist Relationship Specialty Start Date End Date Adair Finn APRN-BUSINESS SALES CONSULTANT [address] [place] [address] PCP - General Nurse Practitioner Adult Health 03/29/24 08/09/24 Joesph Jacobo MD [address] [place] [phone] PCP - General Internal Medicine 08/10/24 documented as of this encounter
--- OUTSIDE RECORDS SUMMARY | 2024-09-19 23:15 | XMS_ITS | Referral Summary ---
Author Organization [facility] Address [address] [facility] [place] [address] Care Team Providers Care Bioprocess Development Engineer Name Role Phone Joesph Jacobo MD Primary Care Provider [phone] Source Comments [facility],non-owned Affiliates and Associated Physician Practices is amultiple site organization consisting of ambulatory clinics and hospital sitesin [place], [place], [place] and [place]. This disclosure is being madepursuant to the Care Everywhere program and may not contain all information available regarding this patient. Last updated 18.[facility] Encounters Date Type Department Care Team Description 09/19/2024 Telephone [facility] - Internal Med [address] [place] [phone] Carlie Jerry MD Pre Authorization 09/13/2024 10:25 AM FOUNDRY MOLDER - 09/13/2024 11:59 PM FOUNDRY MOLDER Hospital Encounter [facility] LAB OP DRAW STATION [address] [place] [address] Discharge Disposition: Home or Self Care 09/13/2024 8:55 AM FOUNDRY MOLDER Clinical Support [facility] - Ophthalmology [address] [place] [phone] Sandeep Hernandez MD Optic disc edema (Primary Dx) 09/13/2024 8:45 AM FOUNDRY MOLDER Clinical Support [facility] - Ophthalmology [address] [place] [phone] Sandeep Hernandez MD Optic disc edema (Primary Dx) 09/13/2024 8:40 AM FOUNDRY MOLDER Clinical Support [facility] - Ophthalmology [address] [place] [phone] Sandeep Hernandez MD Optic disc edema (Primary Dx) 09/13/2024 Travel 09/13/2024 9:15 AM FOUNDRY MOLDER Office Visit [facility] - Ophthalmology [address] [place] [phone] Sandeep Hernandez MD Optic disc edema (Primary Dx); Combined forms of age-related cataract of right eye; Diabetes mellitus type 2 without retinopathy (HCC) 09/08/2024 10:44 AM FOUNDRY MOLDER - 09/08/2024 11:59 PM FOUNDRY MOLDER Hospital Encounter [facility] VASCULAR US [address] [place] [phone] Sandeep Hernandez MD Discharge Disposition: Home or Self Care 09/08/2024 9:46 AM FOUNDRY MOLDER - 09/08/2024 10:43 AM FOUNDRY MOLDER Hospital Encounter [facility] CAT SCAN [address] [place] [phone] Sandeep Hernandez MD Discharge Disposition: Home or Self Care 09/04/2024 Telephone [facility] - Geriatrics [address] [place] [phone] Rosalia Hair MD Pre Authorization (Levothyroxine) 09/04/2024 Orders Only [facility] - Endocrinology [address] [place] [phone] Rosalia Hair MD Hypothyroidism, acquired 09/01/2024 Telephone [facility] - Endocrinology [address] [place] [phone] Annabelle Sandoval, RD/LD 08/30/2024 Telephone [facility] - Endocrinology [address] [place] [phone] Rosalia Hair MD 08/30/2024 Telephone [facility] - Endocrinology [address] [place] [address], [place] [phone] Rosalia Hair MD Refill Request (Levothyroxine) 08/30/2024 Telephone [facility] - Endocrinology [address] [place] [address], [place] [phone] Rosalia Hair MD 08/29/2024 Telephone [facility] - Endocrinology [address] [place] [address], [place] [phone] Rosalia Hair MD Med Question 08/26/2024 Refill [facility] - Endocrinology [address] [place] [address], [place] [phone] Rosalia Hair MD MEDICATION REFILL 08/25/2024 Telephone [facility] - Endocrinology [address] [place] [address], [place] [phone] Annabelle Sandoval, RD/LD Diabetes 08/25/2024 Telephone [facility] - Endocrinology [address] [place] [address], [place] [phone] Annabelle Sandoval, RD/LD Diabetes 08/25/2024 Telephone [facility] - Endocrinology [address] [place] [address], [place] [phone] Annabelle Sandoval, RD/LD Medication Clarification 08/24/2024 Telephone [facility] - Endocrinology [address] [place] [address], [place] [phone] Annabelle Sandoval, RD/LD Diabetes 08/24/2024 Telephone [facility] - Endocrinology [address] [place] [address], [place] [phone] Rosalia Hair MD 08/24/2024 Telephone [facility] - Endocrinology [address] [place] [address], [place] [phone] Jennifer Roque RN Follow-up 08/24/2024 Orders Only [facility] - Endocrinology [address] [place] [phone] Annabelle Sandoval, RD/LD 08/24/2024 Telephone [facility] - Endocrinology [address] [place] [phone] Rosalia Hair MD MEDICATION REFILL 08/24/2024 Telephone [facility] - Endocrinology [address] [place] [phone] Rosalia Hair MD 08/23/2024 Telephone [facility] - Endocrinology [address] [place] [phone] Rosalia Hair MD 08/23/2024 Orders Only [facility] - Endocrinology [address] [place] [phone] Annabelle Sandoval, RD/LD 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) 08/23/2024 Telephone [facility] - Ophthalmology [address] [place] [phone] Sandeep Hernandez MD Med Question 08/22/2024 Telephone [facility] - Endocrinology [address] [place] [phone] Carlie Jerry MD Medication Problem 08/18/2024 Orders Only [facility] - Endocrinology [address] [place] [phone] Annabelle Sandoval, RD/LD 08/17/2024 Refill [facility] - Endocrinology [address] [place] [phone] Rosalia Hair MD MEDICATION REFILL 08/11/2024 Travel 08/10/2024 10:25 AM FOUNDRY MOLDER Clinical Support [facility] - Ophthalmology [address] [place] [phone] Sandeep Hernandez MD Optic disc edema (Primary Dx) 08/10/2024 10:20 AM FOUNDRY MOLDER Clinical Support [facility] - Ophthalmology [address] [place] [phone] Sandeep Hernandez MD Optic disc edema (Primary Dx) 08/10/2024 10:10 AM FOUNDRY MOLDER Clinical Support [facility] - Ophthalmology [address] [place] [phone] Sandeep Hernandez MD Optic disc edema (Primary Dx) 08/10/2024 Travel 08/10/2024 10:15 AM FOUNDRY MOLDER Office Visit [facility] - Ophthalmology [address] [place] [phone] Sandeep Hernandez MD Optic disc edema (Primary Dx); Combined forms of age-related cataract of right eye; Diabetes mellitus type 2 without retinopathy (HCC) 07/28/2024 Telephone [facility] - Endocrinology [address] [place] [phone] Rosalia Hair MD Pre Authorization (Dexcom G6 Transmitter) 07/28/2024 Telephone [facility] - Endocrinology [address] [place] [phone] Elder Garza MD Pre Authorization (Dexcom G6 sensors) 07/24/2024 Telephone [facility] - Endocrinology [address] [place] [phone] Rosalia Hair MD Imaging Results 07/24/2024 Orders Only [facility] - Endocrinology [address] [place] [phone] Annabelle Sandoval, RD/LD 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) 07/21/2024 Refill [facility] - Endocrinology [address] [place] [phone] Rosalia Hair MD Refill Request 07/21/2024 Telephone [facility] - Endocrinology [address] [place] [phone] Rosalia Hair MD Medication Issue 07/18/2024 Orders Only [facility] - Endocrinology [address] [place] [phone] Rosalia Hair MD 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) ; Hypothyroidism, acquired 07/17/2024 Refill [facility] - Endocrinology [address] [place] [phone] Rosalia Hair MD Refill Request 07/10/2024 Telephone [facility] - Endocrinology [address] [place] [phone] Elder Garza MD Medication Prior Auth Request (Dexcom G6 sensor) 07/07/2024 Telephone [facility] - Endocrinology [address] [place] [phone] Rosalia Hair MD Medication Prior Auth Request (Dexcom G6) 07/07/2024 Telephone [facility] - Endocrinology [address] [place] [phone] Rosalia Hair MD Encounter Opened In Error from Last 3 Months Allergies No known [...] Active Continuous Glucose Sensor (Dexcom G6 Sensor) MISCIndications: Type 2 diabetes mellitus with other specified complication, with long-term current use of insulin (HCC) USE DIRECTED TO MONITOR GLUCOSE; CHANGE EVERY 10 DAYS 9 Each 11 05/02/2024 Active Continuous Glucose Transmitter (Dexcom G6 Transmitter) MISCIndications: 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) Use 1 Each Every 90 days 1 Each 3 07/24/2024 Active Insulin Disposable Pump (Omnipod 5 [id number] Pods Gen 5) MISCIndications: 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) Use 1 Each every 3 days 10 Each 11 08/23/2024 Active levothyroxine (Synthroid) 100 MCG tablet Take 1 (one) tablet by mouth once daily 90 tablet 3 09/04/2024 Active levothyroxine (Synthroid) 100 MCG tablet Take 1 (one) tablet by mouth once daily 30 tablet 07/18/2024 5 Discontinue d(Reorder) Insulin Disposable Pump (Omnipod 5 [id number] Pods Gen 5) MISC USE AND CHANGE EVERY 48 HOURS 03/13/2024 5 Discontinue d(Reorder) Insulin Disposable Pump (Omnipod 5 [id number] Pods Gen 5) MISCIndications: 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) Inject 3 Each subcutaneously 1 (one) time for 1 dose 3 Each 08/22/2024 5 Active Problems Problem Noted Date Diagnosed Date [...] Comments Blood Pressure 120/82 06/10/2024 10:51 AM FOUNDRY MOLDER Pulse 111 06/10/2024 10:51 AM FOUNDRY MOLDER Temperature 36.6 C (97.9 F) 06/10/2024 10:51 AM FOUNDRY MOLDER Respiratory Rate 18 06/10/2024 10:51 AM FOUNDRY MOLDER Oxygen Saturation 100% 06/10/2024 10:51 AM FOUNDRY MOLDER Inhaled Oxygen Concentration - - Weight 54.4 kg (120 lb) 06/09/2024 5:29 PM FOUNDRY MOLDER Height 160 cm (5' 3 ) 06/09/2024 5:29 PM FOUNDRY MOLDER Body Mass Index 21.26 06/09/2024 5:29 PM FOUNDRY MOLDER Plan of Treatment Upcoming Encounters Date Type Department Care Team (Late st Contact Info) Description 09/27/2024 9:45 AM FOUNDRY MOLDER Office Visit [facility] - Ophthalmology [address] [place] [phone] Buddy uFller MD [address] [place] [address] [place] [phone] 10/04/2024 1:00 PM FOUNDRY MOLDER Office Visit [facility] - Endocrinology [address] [place] [phone] Rosalia Hair MD [address] [facility] [place] [phone] 10/12/2024 2:15 PM CDT Office Visit [facility] - Ophthalmology [address] [place] [phone] Sandeep Hernandez MD [address] [place] [address] [place] [phone] 10/24/2024 2:00 PM CDT Office Visit [facility] - Ophthalmology [address] [place] [phone] Wong Ortiz MD [address] [place] [address] [place] [phone] 02/07/2025 8:30 AM CDT Office Visit [facility] - Rheumatology [address] [place] [phone] Roni Castañeda MD [address] [place] [address] [place] [phone] Procedures Procedure Name Priority Date/Time Associated Diagnosis Comments TSH REFLEX FREE T4 Routine 09/13/2024 11 :01 AM FOUNDRY MOLDER 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) LIPID PROFILE Routine 09/13/2024 11:01 AM FOUNDRY MOLDER 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) THEATER SET PRODUCTION DESIGNER DEMYELINATING DISEASE EVAL BLOOD Routine 09/13/2024 11:01 AM FOUNDRY MOLDER Optic disc edema FUNDUS PHOTO BOTH EYES Routine 5 8:52 AM FOUNDRY MOLDER Optic disc edema LUIS AUTO VISUAL FIELD EXTENDED Routine 09/13/2024 8:36 AM FOUNDRY MOLDER Optic disc edema OPTIC NERVE ANALYSIS OCT Routine 09/13/2024 8:36 AM FOUNDRY MOLDER Optic disc edema VAS CAROTID DUPLEX BILATERAL Routine 09/08/2024 11:33 AM FOUNDRY MOLDER Optic disc edema CT ANGIO BRAIN AND NECK Routine 09/08/2024 10:03 AM FOUNDRY MOLDER Optic disc edema FUNDUS PHOTO BOTH EYES Routine 5 10:14 AM FOUNDRY MOLDER Optic disc edema OPTIC NERVE ANALYSIS OCT Routine 08/10/2024 10:05 AM FOUNDRY MOLDER Optic disc edema LUIS AUTO VISUAL FIELD EXTENDED Routine 08/10/2024 10:05 AM FOUNDRY MOLDER Optic disc edema BASIC METABOLIC PANEL (CALCIUM TOTAL) STAT 06/10/2024 8:24 AM FOUNDRY MOLDER HIV-1 HIV-2 ANTIBODY + HIV P24 AG PANEL STAT 06/09/2024 7:13 PM FOUNDRY MOLDER EYE EXAM 06/01/2024 HEMOGLOBIN A1C - POINT OF CARE (AMB) [facility] Routine 03/29/2024 2:44 PM CDT 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 This test has not been cleared or approved by the U.S. Food and Drug Administration. NMO/AQP4 FACS Negative Negative 09/18/2024 2:02 PM FOUNDRY MOLDER [facility] ([facility]) Comment: ADDITIONAL INFORMATION This test was developed and its performance characteristics determined by [facility] in a manner consistent with CLIA requirements. This test has not been cleared or approved by the U.S. Food and Drug Administration. THEATER SET PRODUCTION DESIGNER Demyelinating Disease Interp, S SEE COMMENTS 09/18/2024 2:02 PM [facility] ([facility]) Comment: No informative autoantibodies were detected in this evaluation. A negative result does not preclude a diagnosis of an inflammatory THEATER SET PRODUCTION DESIGNER demyelinating disorder. Test Performed by: [place] [address] Operator Specialist Communications: Marisa Keith Ph.D.; CLIA# [id number] Blood BLOOD SPECIMEN / Unknown Lab Venipuncture / Unknown 09/13/2024 11:01 AM FOUNDRY MOLDER 09/13/2024 11:11 AM FOUNDRY MOLDER Sandeep Hernandez MD LAB - CHEMISTRY VANESSA TOMLIN Performing Organization Address City/[facility] [place]/ZIP Co de Phone Number [facility] ([facility]) [address] [place] [address] * TSH REFLEX FREE T4 (09/13/2024 11:01 AM FOUNDRY MOLDER) TSH 3.145 0.350 - 4.940 uIU/mL 09/13/2024 12:01 PM [facility] Blood BLOOD SPECIMEN / Unknown Lab Venipuncture / Unknown 09/13/2024 11:01 AM FOUNDRY MOLDER 09/13/2024 11:28 AM FOUNDRY MOLDER Elder Garza MD LAB - CHEMISTRY VANESSA TOMLIN [facility] [address] [place] [address], [facility] [phone] * LIPID PROFILE (09/13/2024 11:01 AM FOUNDRY MOLDER) Cholesterol Total 180 <200 mg/dL 09/13/2024 11:44 AM [facility] HDL 90 >40 mg/dL 09/13/2024 11:44 AM [facility] Comment: ATP III Classification of HDL Cholesterol: <40 mg/dL: Considered a major risk factor. >60 mg/dL: Considered a negative risk factor. LDL Calculated 62 <100 mg/dL 09/13/2024 11:44 AM [facility] Comment: ATP III Classification of LDL Cholesterol: <100 mg/dL: Optimal 100 - 129 mg/dL: Near Optimal/Above Optimal 130 - 159 mg/dL: Borderline High 160 - 189 mg/dL: High >190 mg/dL: Very High Triglycerides 138 <150 mg/dL 09/13/2024 11:44 AM [facility] Comment: ATP III Classification of Triglycerides: <150 mg/dL: Normal 150 - 199 mg/dL: Borderline High 200 - 400 mg/dL: High >500 mg/dL: Very High Blood BLOOD SPECIMEN / Unknown Lab Venipuncture / Unknown 09/13/2024 11:01 AM FOUNDRY MOLDER 09/13/2024 11:28 AM FOUNDRY MOLDER Elder Garza MD LAB - CHEMISTRY ORDE SADA Aguilar Organization Address [facility] [place]/ZIP Co de Phone Number [facility] [address] [place] [phone], [facility] [phone] * FUNDUS PHOTO BOTH EYES (09/13/2024 8:52 AM FOUNDRY MOLDER) Anatomical Region Laterality Modality Head External-Camera Photography Narrative 09/13/2024 10:22 AM FOUNDRY MOLDER Images from the original result were not included. OS: optic nerve grade 1 sectoral edema inferiorly Sandeep Hernandez MD OPHTHALMOLOGY SCHED ORD W PACS * LUIS AUTO VISUAL FIELD EXTENDED (09/13/2024 8:36 AM FOUNDRY MOLDER) Anatomical Region Laterality Modality Head External-Camera Photography Narrative 09/13/2024 10:22 AM FOUNDRY MOLDER Images from the original result were not included. Sandeep Hernadnez MD OPHTHALMOLOGY SCHED ORD W PACS * OPTIC NERVE ANALYSIS OCT (09/13/2024 8:36 AM FOUNDRY MOLDER) Anatomical Region Laterality Modality Head External-Camera Photography Narrative 09/13/2024 10:22 AM FOUNDRY MOLDER Images from the original result were not included. Sandeep Hernandez MD OPHTHALMOLOGY SCHED ORD W PACS * VAS Carotid Duplex Bilateral (09/08/2024 11:33 AM FOUNDRY MOLDER) Anatomical Region Laterality Modality Neck Intravascular Ul trasound 09/08/2024 11:1 8 AM FOUNDRY MOLDER Narrative Procedure Note Ellis Grier MD - 09/09/2024 Sandeep Hernandez MD VASCULAR LAB ORDERAB LES * CT Angio Brain And Neck (09/08/2024 10:03 AM FOUNDRY MOLDER) Anatomical Region Laterality Modality Head Computed Tomogra phy 09/08/2024 12:5 8 PM FOUNDRY MOLDER Impressions 09/08/2024 1:10 PM FOUNDRY MOLDER IMPRESSION:. 1. No acute intracranial hemorrhage. 2. No large arterial occlusions or significant stenoses identified in the head or neck. > Interpreting Provider: Rc Bradshaw MD on 09/08/2024 1:10 PM Narrative 09/08/2024 1:10 PM FOUNDRY MOLDER PROCEDURE: CT ANGIO BRAIN AND NECK, DATE/TIME OF EXAM: 09/08/2024 10:03 AM, LOCATION [facility] INDICATION: H47.10: Optic disc edema ADDITIONAL CLINICAL INFORMATION: Ordering Provider Reason For Exam: Technologist Note: Additional: EXAMINATION: 1. Computed tomographic (CT) angiography of the head without and with contrast 2. CT angiography of the neck with contrast TECHNIQUE: CT of the head was performed without contrast according to standard protocol. Then CT angiography of the head and neck was obtained after the uneventful administration of intravenous contrast. Three dimensional postprocessing was performed by the technologist and sent to the workstation for review. CONTRAST: IOPAMIDOL 76 % IV SOLN:75 mL COMPARISON: No prior study is available for comparison at the time of this dictation. FINDINGS: Non-angiographic findings: No acute intracranial hemorrhage or intra- or extra-axial fluid collections are identified. The ventricles are of normal size, shape, and morphology. The basal cisterns are patent. No mass effect or midline shift is seen. The alejandro-white matter differentiation is normal. The visualized portions of the orbits, paranasal sinuses, and mastoids appear normal. No acute calvarial fracture is identified. No soft tissue abnormalities are identified in the neck. Mild multilevel degenerative disc and joint disease is noted. Angiographic findings: Neck: The visible aortic arch appears normal. The configuration of the brachiocephalic vessels is typical. The innominate artery and both subclavian arteries appear normal. The right common and internal carotid arteries as well as the right carotid bifurcation are patent. The left common and internal carotid arteries as well as the left carotid bifurcation are patent. The cervical vertebral arteries are patent. Head: The distal internal carotid arteries are patent. The anterior cerebral arteries are patent. The middle cerebral arteries are patent. The posterior cerebral arteries are patent. The posterior compartment contusion arteries are patent The distal vertebral arteries are patent. The basilar artery is patent patent. No aneurysms, spot sign, or signs of a high flow vascular malformation are identified. Procedure Note Rc Bradshaw MD - 09/08/2024 PROCEDURE: CT ANGIO BRAIN AND NECK, DATE/TIME OF EXAM: 09/08/2024 10:03AM, LOCATION [facility] INDICATION: H47.10: Optic disc edema ADDITIONAL CLINICAL INFORMATION: Ordering Provider Reason For Exam: Technologist Note: Additional: EXAMINATION: 1. Computed tomographic (CT) angiography of the head without and with contrast 2. CT angiography of the neck with contrast TECHNIQUE: CT of the head was performed without contrast according to standard protocol. Then CT angiography of the head and neck was obtained after the uneventful administration of intravenous contrast. Three dimensional postprocessing was performed by the technologist and sent to the workstation for review. CONTRAST: IOPAMIDOL 76 % IV SOLN:75 mL COMPARISON: No prior study is available for comparison at the time ofthis dictation. FINDINGS: Non-angiographic findings: No acute intracranial hemorrhage or intra- or extra-axial fluidcollections are identified. The ventricles are of normal size, shape, andmorphology. The basal cisterns are patent. No mass effect or midline shift is seen.The alejandro-white matter differentiation is normal. The visualized portions of the orbits, paranasal sinuses, and mastoids appear normal. No acute calvarial fracture is identified. No soft tissue abnormalities are identified in the neck. Mild multilevel degenerative disc and joint disease is noted. Angiographic findings: Neck: The visible aortic arch appears normal. The configuration of the brachiocephalic vessels is typical. The innominate artery and both subclavian arteries appear normal. The right common and internal carotid arteries as well as the right carotid bifurcation are patent. The left common and internal carotid arteries as well as the left carotid bifurcation are patent. The cervical vertebral arteries are patent. Head: The distal internal carotid arteries are patent. The anterior cerebral arteries are patent. The middle cerebral arteries are patent. The posterior cerebral arteries are patent. The posterior compartmentcontusion arteries are patent The distal vertebral arteries are patent. Thebasilar artery is patent patent. No aneurysms, spot sign, or signs of a highflow vascular malformation are identified. IMPRESSION:. 1. No acute intracranial hemorrhage. 2. No large arterial occlusions or significant stenoses identified inthe head or neck. > Interpreting Provider: Rc Bradshaw MD on 09/08/2024 1:10 PM Sandeep Hernandez MD CT ORDERABLES * FUNDUS PHOTO BOTH EYES (08/10/2024 10:14 AM FOUNDRY MOLDER) Anatomical Region Laterality Modality Head External-Camera Photography Narrative 08/10/2024 2:52 PM FOUNDRY MOLDER Images from the original result were not included. Sandeep Hernandez MD OPHTHALMOLOGY SCHED ORD W PACS * OPTIC NERVE ANALYSIS OCT (08/10/2024 10:05 AM FOUNDRY MOLDER) Anatomical Region Laterality Modality Head External-Camera Photography Narrative 08/10/2024 2:52 PM FOUNDRY MOLDER Images from the original result were not included. Sandeep Hernandez MD OPHTHALMOLOGY SCHED ORD W PACS * LUIS AUTO VISUAL FIELD EXTENDED (08/10/2024 10:05 AM [facility]) Anatomical Region Laterality Modality Head External-Camera Photography Narrative 08/10/2024 2:52 PM [facility] Images from the original result were not included. Sandeep Hernandez MD OPHTHALMOLOGY SCHED ORD W PACS * (ABNORMAL) BASIC METABOLIC PANEL (CALCIUM TOTAL) (06/10/2024 8:24 AM [facility]) BUN 11 7 - 26 mg/dL 06/10/2024 9:20 AM [facility] Creatinine 0.47(L) 0.56 - 0.96 mg/dL 06/10/2024 9:20 AM [facility] Sodium 131(L) 136 - 145 mmol/L 06/10/2024 9:20 AM [facility] Potassium 4.4 3.5 - 4.5 mmol/L 06/10/2024 9:20 AM [facility] Chloride 92(L) 98 - 107 mmol/L 06/10/2024 9:20 AM [facility] CO2 22 22 - 29 mmol/L 06/10/2024 9:20 AM [facility] Glucose 782(HH) 70 - 99 mg/dL 06/10/2024 9:20 AM [facility] Calcium 8.9 8.4 - 10.2 mg/dL 06/10/2024 9:20 AM [facility] Anion Gap 17(H) 6 - 16 06/10/2024 9:20 AM [facility] BUN/Creatinine Ratio 23 7 - 23 06/10/2024 9:20 AM [facility] Osmolality Calculated 309(H) 275 - 295 mOsm/kg 06/10/2024 9:20 AM [facility] eGFR by CKD-EPI >90 >=90 mL/min/1.7 3 m2 06/10/2024 9:20 AM [facility] Blood BLOOD SPECIMEN / Unknown Venipuncture / Unknown 06/10/2024 8:24 AM [facility] 06/10/2024 8:35 AM [facility] Tobias Schafer MD LAB - CHEMISTRY [facility] [place] Performing Organization Address City/[facility]/ZIP Co de Phone Number [address] [address], [place] [phone] * HIV-1 HIV-2 ANTIBODY + HIV P24 AG PANEL (06/09/2024 7:13 PM [facility]) HIV Antigen/Antibod y 1 & 2 Non-reacti ve Non-react stephanie 06/09/2024 8:03 PM [facility] Comment:No Laboratory eviden ce of HIV infection. Blood BLOOD SPECIMEN / Unknown Venipuncture / Unknown 06/09/2024 7:13 PM [facility] 06/09/2024 7:20 PM [facility] Maliha Tilley MD LAB - CHEMISTRY [place] Performing Organization Address City/[facility]/ZIP Co de Phone Number [address] [address], [place] [phone] * EYE EXAM (06/01/2024) Anatomical Region Laterality Modality Other Narrative 06/01/2024 Ordered by an unspecified provider. Scanned Document SCANNING ONLY * HEMOGLOBIN A1C - POINT OF CARE (AMB) [facility] (03/29/2024 2:44 PM CDT) Hemoglobin A1c POCT 15 % [facility] [address] [place] [address] Blood BLOOD SPECIMEN / Unknown 03/29/2024 2:44 PM CDT Elder Garza MD LAB - POINT OF CARE ORDERABLES Performing Organization Address [facility]/ZIP Co de Phone Number [facility] [address] [facility] [address] [facility], [place] [address], [facility] [phone] from Last 3 Months or Most Recently Relevant to Health Maintenance Care Teams Bioprocess Development Engineer Relationship Specialty Start Date End Date Joesph Jacobo MD [address] [place] [phone] PCP - General Internal Medicine 08/10/24
--- OUTSIDE RECORDS SUMMARY | 2024-09-19 23:15 | XMS_ITS | Encounter Summary ---
Author Organization [facility] Address [facility] [place] [address] Care Team Providers Care Utilization Engineer Name Role Phone Joesph Jacobo MD Primary Care Provider [phone] Reason for Visit * Reason Onset Date Comments Med Question 08/29/2024 Encounter Details Date Type Department Care Team (Late st Contact Info) Description 08/29/2024 Telephone [facility] - Endocrinology [address] [place] [address], [place] [phone] Rosalia Hair MD [address] [place] [phone] Med Question Social History Tobacco Use Types Packs/Day Years Used Date Smoking Tobacco: Unknown Sex and Gender Information Value Date Recorded Sex Assigned at Not on file Gender Identity Not on file Sexual Orientation Not on file documented as of this encounter Miscellaneous Notes * Telephone Encounter - Krysta Hunter CNA - 08/29/2024 3:38 PM CAR RENTAL SERVICE ATTENDANT Current Provider: MAITE Reason for Call: Pt called regarding her rx refill Levothyroxine. She is now out of the medication and needing a refill. She has been reaching out via [employer]. Patient Call Back Number: [phone] RENTAL SERVICE ATTENDANT documented in this encounter Plan of Treatment Upcoming Encounters Date Type Department Care Team (Late st Contact Info) Description 09/27/2024 9:45 AM CAR RENTAL SERVICE ATTENDANT Office Visit [facility] - Ophthalmology [address] [place] [phone] Buddy Fuller MD [address] [place] [address] [place] [phone] 10/04/2024 1:00 PM CAR RENTAL SERVICE ATTENDANT Office Visit [facility] - Endocrinology [address] [place] [phone] Rosalia Hair MD [address] [facility] [place] [phone] 10/12/2024 2:15 PM CDT Office Visit [facility] - Ophthalmology [address] [place] [phone] Sandeep Hernandez MD [address] [place] [address] [place] [phone] 10/24/2024 2:00 PM CDT Office Visit [facility] - Ophthalmology [address] [place] [phone] Wong Ortiz MD [address] [place] [address] [place] [phone] 02/07/2025 8:30 AM CDT Office Visit [facility] - Rheumatology [address] [place] [phone] Roni Castañeda MD [address] [place] [address] [place] [phone] documented as of this encounter Visit Diagnoses Not on filedocumented in this encounter Care Teams Utilization Engineer Relationship Specialty Start Date End Date Joesph Jacobo MD [address] [place] [phone] PCP - General Internal Medicine 08/10/24 documented as of this encounter
--- OUTSIDE RECORDS SUMMARY | 2024-09-19 23:15 | XMS_ITS | Encounter Summary ---
Author Organization [facility] Address [address] [facility] [address] Care Team Providers Care General Lithographic Worker Name Role Phone Joesph Jacobo MD Primary Care Provider [phone] Encounter Details Date Type Department Care Team (Late Contact Info) Description 08/30/2024 Telephone [facility] - Endocrinology [address] [facility], [place] [phone] Rosalia Hair MD [facility] [place] [phone] Social History Tobacco Use Types Packs/Day Years Used Date Smoking Tobacco: Unknown Sex and Gender Information Value Date Recorded Sex Assigned at Not on file Gender Identity Not on file Sexual Orientation Not on file documented as of this encounter Miscellaneous Notes * Telephone Encounter - Eileen Schwartz - 08/30/2024 4:19 PM CST Current Provider: MAITE Reason for Call: [facility]pa at [facility] called to get a new PA for the pts Omnipod. The previous one was entered incorrectly. The need a new on and on the new one they are requesting that NOT A DUPLICATE THIS IS A NEW REQUEST be put in bold on the front page. The pt needs medication karen. Patient Call Back Number: [phone] UCT BLENDING SUPERVISOR documented in this encounter Plan of Treatment Upcoming Encounters Date Type Department Care Team (Late st Contact Info) Description 09/27/2024 9:45 AM PRODUCT BLENDING SUPERVISOR Office Visit [facility] - Ophthalmology [address] [place] [phone] Buddy Fuller MD [address] [place] [address] [place] [phone] 10/04/2024 1:00 PM PRODUCT BLENDING SUPERVISOR Office Visit [facility] - Endocrinology [address] [place] [phone] Rosalia Hair MD [facility] [place] [phone] 10/12/2024 2:15 PM CDT Office Visit [facility] - Ophthalmology [address] [place] [phone] Sandeep Hernanedz MD [address] [place] [address] [place] [phone] 10/24/2024 2:00 PM CDT Office Visit [facility] - Ophthalmology [address] [place] [phone] Wong Ortiz MD [address] [place] [address] [place] [phone] 02/07/2025 8:30 AM CDT Office Visit [facility] - Rheumatology [address] [place] [phone] Roni Castañeda MD [address] [place] [address] [place] [phone] documented as of this encounter Visit Diagnoses Not on filedocumented in this encounter Care Teams General Lithographic Worker Relationship Specialty Start Date End Date Joesph Jacobo MD [address] [place] [phone] PCP - General Internal Medicine 08/10/24 documented as of this encounter
--- OUTSIDE RECORDS SUMMARY | 2024-09-19 23:15 | XMS_ITS | Encounter Summary ---
Author Organization [facility] Address [address] [place] [address] Care Team Providers Care Cartography Teacher Name Role Phone Joesph Jacobo MD Primary Care Provider [phone] Encounter Details Date Type Department Care Team (Late st Contact Info) Description 08/24/2024 Telephone [facility] - Endocrinology [address] [facility], [place] [phone] Rosalia Hair MD [address] [place] [phone] Social History Tobacco Use Types Packs/Day Years Used Date Smoking Tobacco: Unknown Sex and Gender Information Value Date Recorded Sex Assigned at Not on file Gender Identity Not on file Sexual Orientation Not on file documented as of this encounter Miscellaneous Notes * Telephone Encounter - Sheree Gómez - 08/24/2024 9:19 AM CST Current Provider: Dr. Hair Reason for Call: Ms. Geneva Maya is calling in again today checking on the PRIOR AUTH needed so Madeleine can get her Dexcom OMNIPOD 5. I did advise the msg had been forwarded to Dr. Hair. Please advise and update her mother. I did ask that she allow us 24 hours. Give mom Geneva Maya call [phone]. Her daughter is still in hospital and can't be discharged until she has the OMNIPOD 5. Ms Maya mentioned when she spoke to electronic gaming device supervisor doctor a few days ago, they said Annabelle Artis would be processing PRIOR AUTH since Dr. Hair is on vacation. Again, please advise. She is reaching out to [facility] Certified Nurses' Aide for operations manager assistant in helping her daughter maneuver. Patient Call Back Number: Geneva Maya [phone] KEEPER documented in this encounter Plan of Treatment Upcoming Encounters Date Type Department Care Team (Late st Contact Info) Description 09/27/2024 9:45 AM SHIP KEEPER Office Visit [facility] - Ophthalmology [address] [place] [phone] Buddy Fuller MD [address] [place] [address] [place] [phone] 10/04/2024 1:00 PM SHIP KEEPER Office Visit [facility] - Endocrinology [address] [place] [phone] Rosalia Hair MD [facility] [place] [phone] 10/12/2024 2:15 PM CDT Office Visit [facility] - Ophthalmology [address] [place] [phone] Sandeep Hernandez MD [address] [place] [address] [place] [phone] 10/24/2024 2:00 PM CDT Office Visit [facility] - Ophthalmology [address] [place] [phone] Wong Ortiz MD [address] [place] [address] [place] [phone] 02/07/2025 8:30 AM CDT Office Visit [facility] - Rheumatology [address] [place] [address], [place] [phone] Roni Castañeda MD [address] [place] [address] [place] [phone] documented as of this encounter Visit Diagnoses Not on filedocumented in this encounter Care Teams Cartography Teacher Relationship Specialty Start Date End Date Joesph Jacobo MD [address] [place] [phone] PCP - General Internal Medicine 08/10/24 documented as of this encounter
--- OUTSIDE RECORDS SUMMARY | 2024-09-19 23:15 | XMS_ITS | Encounter Summary ---
Author Organization [facility] Address [address] [facility] [place] [address] Care Team Providers Care Examining Officer Name Role Phone Joesph Jacobo MD Primary Care Provider [phone] Encounter Details Date Type Department Care Team (Late st Contact Info) Description 08/24/2024 Telephone [facility] - Endocrinology [address] [facility], [place] [phone] Rosalia Hair MD [facility] [place] [phone] Social History Tobacco Use Types Packs/Day Years Used Date Smoking Tobacco: Unknown Sex and Gender Information Value Date Recorded Sex Assigned at Not on file Gender Identity Not on file Sexual Orientation Not on file documented as of this encounter Miscellaneous Notes * Telephone Encounter - Sheree Gómez - 08/24/2024 2:19 PM CST Current Provider: Dr. Hair Reason for Call: Ms. Madeleine Mendoza is calling re: he Dexcom OMNIPOD. I do see it is progressing, prior auth needs to be signed, her mother apparently is trying to get it signed. I see the latest msgsgina Alanis. Please call Ms. Salvador and update her. She is still in hospital. Trust me I KNOW you all are doing all you can. Patient Call Back Number: [phone] CONDITIONING SPECIALIST documented in this encounter Plan of Treatment Upcoming Encounters Date Type Department Care Team (Late st Contact Info) Description 09/27/2024 9:45 AM AIR CONDITIONING SPECIALIST Office Visit [facility] - Ophthalmology [address] [place] [phone] Buddy Fuller MD [address] [place] [address] [place] [phone] 10/04/2024 1:00 PM AIR CONDITIONING SPECIALIST [facility] [address] [place] [phone] Rosalia Hair MD [address] [place] [address] [place] [phone] 10/12/2024 2:15 PM CDT Office Visit [facility] - Ophthalmology [address] [place] [phone] Sandeep Hernandez MD [address] [place] [address] [place] [phone] 10/24/2024 2:00 PM CDT Office Visit [facility] - Ophthalmology [address] [place] [phone] Wong Ortiz MD [address] [place] [address] [place] [phone] 02/07/2025 8:30 AM CDT Office Visit [facility] - Rheumatology [address] [place] [phone] Roni Castañeda MD [address] [place] [address] [place] [phone] documented as of this encounter Visit Diagnoses Not on filedocumented in this encounter Care Teams Examining Officer Relationship Specialty Start Date End Date Joesph Jacobo MD [address] [place] [phone] PCP - General Internal Medicine 08/10/24 documented as of this encounter
--- OUTSIDE RECORDS SUMMARY | 2024-09-19 23:15 | XMS_ITS | Clinical Summary ---
Author Organization [facility] Address [address] [place] [address] Care Team Providers Care Glass Grinder Name Role Phone Joesph Jacobo MD Primary Care Provider [phone] Source Comments [facility],non-owned Affiliates and Associated Physician Practices is amultiple site organization consisting of ambulatory clinics and hospital sitesin [place], [place] and [place]. This disclosure is being madepursuant to the Care Everywhere program and may not contain all information available regarding this patient. 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) Inject 3 Each subcutaneously 1 (one) time for 1 dose 3 Each 08/22/2024 5 Active Problems Problem Noted Date Diagnosed Date 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 02/14/2024 Encounters Date Type Department Care Team Description 09/19/2024 Telephone [facility] - Internal Med [address] [place] [phone] Carlie Jerry MD Pre Authorization 09/13/2024 10:25 AM PRINT PRODUCER - 09/13/2024 11:59 PM PRINT PRODUCER Hospital Encounter [facility] DRAW [facility]ATION [address] [place] [phone] Discharge Disposition: Home or Self Care 09/13/2024 9:15 AM PRINT PRODUCER Office Visit [facility] - Ophthalmology [address] [place] [phone] Sandeep Hernandez MD Optic disc edema (Primary Dx); Combined forms of age-related cataract of right eye; Diabetes mellitus type 2 without retinopathy (HCC) 09/13/2024 8:55 AM PRINT PRODUCER Clinical Support [facility] - Ophthalmology [address] [place] [phone] Sandeep Hernandez MD Optic disc edema (Primary Dx) 09/13/2024 8:45 AM PRINT PRODUCER Clinical Support [facility] - Ophthalmology [address] [place] [phone] Sandeep Hernandez MD Optic disc edema (Primary Dx) 09/13/2024 8:40 AM PRINT PRODUCER Clinical Support [facility] - Ophthalmology [address] [place] [phone] Sandeep Hernandez MD Optic disc edema (Primary Dx) 09/13/2024 Travel 09/08/2024 10:44 AM PRINT PRODUCER - 09/08/2024 11:59 PM PRINT PRODUCER Hospital Encounter [facility] [address] [place] [address] Sandeep Hernandez MD Discharge Disposition: Home or Self Care 09/08/2024 9:46 AM PRINT PRODUCER - 09/08/2024 10:43 AM PRINT PRODUCER Hospital Encounter [facility] [address] [place] [address] Sandeep Hernandez MD Discharge Disposition: Home or Self Care 09/04/2024 Telephone [facility] - Geriatrics [address] [place] [phone] Rosalia Hair MD Pre Authorization (Levothyroxine) 09/04/2024 Orders Only [facility] - Endocrinology [address] [place] [phone] Rosalia Hair MD Hypothyroidism, acquired 09/01/2024 Telephone [facility] - Endocrinology [address] [place] [phone] Annabelle Sandoval, RD/LD 08/30/2024 Telephone [facility] - Endocrinology [address] [place] [phone] Rosalia Hair MD 08/30/2024 Telephone [facility] - Endocrinology [address] [place] [phone] Rosalia Hair MD Refill Request (Levothyroxine) 08/30/2024 Telephone [facility] - Endocrinology [address] [place] [phone] Rosalia Hair MD 08/29/2024 Telephone [facility] - Endocrinology [address] [place] [address], [place] [phone] Rosalia Hair MD Med Question 08/26/2024 Refill [facility] - Endocrinology [address] [place] [address], [place] [phone] Rosalia Hair MD MEDICATION REFILL 08/25/2024 Telephone [facility] - Endocrinology [address] [place] [address], [place] [phone] Annabelle Sandoval, RD/LD Diabetes 08/25/2024 Telephone [facility] - Endocrinology [address] [place] [address], [place] [address] Annabelle Sandoval, RD/LD Diabetes 08/25/2024 Telephone [facility] - Endocrinology [address] [place] [address], [place] [phone] Annabelle Sandoval, RD/LD Medication Clarification 08/24/2024 Telephone [facility] - Endocrinology [address] [place] [address], [place] [phone] Annabelle Sandoval, RD/LD Diabetes 08/24/2024 Telephone [facility] Endocrinology [address] [place] [address], [place] [phone] Rosalia Hair MD 08/24/2024 Telephone [facility] - Endocrinology [address] [place] [address], [place] [phone] Jennifer Roque RN Follow-up 08/24/2024 Orders Only [facility] - Endocrinology [address] [place] [address], [place] [phone] Annabelle Sandoval, RD/LD 08/24/2024 Telephone [facility] - Endocrinology [address] [place] [address], [place] [phone] Rosalia Hair MD MEDICATION REFILL 08/24/2024 Telephone [facility] - Endocrinology [address] [place] [phone] Rosalia Hair MD 08/23/2024 Telephone [facility] - Endocrinology [address] [place] [phone] Rosalia Hair MD 08/23/2024 Orders Only [facility] - Endocrinology [address] [place] [phone] Annabelle Sandoval, RD/LD 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) 08/23/2024 Telephone [facility] - Ophthalmology [address] [place] [phone] Sandeep Hernandez MD Med Question 08/22/2024 Telephone [facility] - Endocrinology [address] [place] [phone] Carlie Jerry MD Medication Problem 08/18/2024 Orders Only [facility] Endocrinology [address] [place] [phone] Annabelle Sandoval, RD/LD 08/17/2024 Refill [facility] Endocrinology [address] [place] [phone] Rosalia Hair MD MEDICATION REFILL 08/11/2024 Travel 08/10/2024 10:25 AM PRINT PRODUCER Clinical Support [facility] - Ophthalmology [address] [place] [phone] Sandeep Hernandez MD Optic disc edema (Primary Dx) 08/10/2024 10:20 AM PRINT PRODUCER Clinical Support [facility] - Ophthalmology [address] [place] [phone] Sandeep Hernandez MD Optic disc edema (Primary Dx) 08/10/2024 10:15 AM PRINT PRODUCER Office Visit [facility] - Ophthalmology [address] [place] [phone] Sandeep Hernandez MD Optic disc edema (Primary Dx); Combined forms of age-related cataract of right eye; Diabetes mellitus type 2 without retinopathy (HCC) 08/10/2024 10:10 AM PRINT PRODUCER Clinical Support [facility] - Ophthalmology [address] [place] [phone] Sandeep Hernandez MD Optic disc edema (Primary Dx) 08/10/2024 Travel 07/28/2024 Telephone [facility] - Endocrinology [address] [place] [phone] Rosalia Hair MD Pre Authorization (Dexcom G6 Transmitter) 07/28/2024 [facility] - Endocrinology [address] [place] [phone] Elder Garza MD Pre Authorization (Dexcom G6 sensors) 07/24/2024 Telephone [facility] - Endocrinology [address] [place] [phone] Rosalia Hair MD Imaging Results 07/24/2024 Orders Only [facility] - Endocrinology [address] [place] [phone] Annabelle Sandoval, RD/LD 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) 07/21/2024 Refill [facility] - Endocrinology [address] [place] [phone] Rosalia Hair MD Refill Request 07/21/2024 Telephone [facility] - Endocrinology [address] [place] [phone] Rosalia Hair MD Medication Issue 07/18/2024 Orders Only [facility] Endocrinology [address] [place] [phone] Rosalia Hair MD 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) ; Hypothyroidism, acquired 07/17/2024 Refill [facility] End[facility]ology [address] [place] [phone] Rosalia Hair MD Refill Request 07/10/2024 Telephone [facility] [address] [place] [phone] Elder aGrza MD Medication Prior Auth Request (Dexcom G6 sensor) 07/07/2024 Telephone [facility] End[facility] [address] [place] [phone] Rosalia Hair MD Medication Prior Auth Request (Dexcom G6) 07/07/2024 Telephone [facility] - Endocrinology [address] [place] [phone] Rosalia Hair MD Encounter Opened In Error from Last 3 Months Family History Medical [...] Comments Blood Pressure 120/82 06/10/2024 10:51 AM PRINT PRODUCER Pulse 111 06/10/2024 10:51 AM PRINT PRODUCER Temperature 36.6 C (97.9 F) 06/10/2024 10:51 AM PRINT PRODUCER Respiratory Rate 18 06/10/2024 10:51 AM PRINT PRODUCER Oxygen Saturation 100% 06/10/2024 10:51 AM PRINT PRODUCER Inhaled Oxygen Concentration - - Weight 54.4 kg (120 lb) 06/09/2024 5:29 PM PRINT PRODUCER Height 160 cm (5' 3 ) 06/09/2024 5:29 PM PRINT PRODUCER Body Mass Index 21.26 06/09/2024 5:29 PM PRINT PRODUCER Plan of Treatment Upcoming Encounters Date Type Department Care Team (Late st Contact Info) Description 09/27/2024 9:45 AM PRINT PRODUCER Office Visit [facility] - Ophthalmology [address] [place] [phone] Buddy Fuller MD [address] [place] [address] [place] [phone] 10/04/2024 1:00 PM PRINT PRODUCER [facility] [address] [place] [phone] Rosalia Hair MD [facility] [facility] [place] [phone] 10/12/2024 2:15 PM CDT Office Visit [facility] - Ophthalmology [address] [place] [phone] Sandeep Hernandez MD [address] [place] [address] [place] [phone] 10/24/2024 2:00 PM CDT Office [facility] Ophthalmology [address] [place] [phone] Wong Ortiz MD [address] [place] [address] [place] [phone] 02/07/2025 8:30 AM CDT Office Visit [facility] - Rheumatology [address] [place] [phone] Roni Castañeda MD [address] [place] [address] [place] [phone] Health Maintenance Due Date Last Done Comments [...] A1C 10/07/2024 07/09/2024, , 03/29/2024 DIABETES-SERUM CREATININE 08/24/20252024, 08/24/2024, 08/24/2024, Additional history exists DIABETES RETINOPATHY SCREENING 09/13/2025 09/13/2024, 09/13/2024, 08/10/2024, Additional history exists ZOSTER VACCINE (1 of 2) 2033 HIV [...] FREE T4 Routine 09/13/2024 11 :01 AM PRINT PRODUCER 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) LIPID PROFILE Routine 09/13/2024 11:01 AM PRINT PRODUCER 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) SEED CLEANING MANAGER DEMYELINATING DISEASE EVAL BLOOD Routine 09/13/2024 11:01 AM PRINT PRODUCER Optic disc edema FUNDUS PHOTO BOTH EYES Routine 8:52 AM PRINT PRODUCER Optic disc edema LUIS AUTO VISUAL FIELD EXTENDED Routine 09/13/2024 8:36 AM PRINT PRODUCER Optic disc edema OPTIC NERVE ANALYSIS OCT Routine 09/13/2024 8:36 AM PRINT PRODUCER Optic disc edema VAS CAROTID DUPLEX BILATERAL Routine 09/08/2024 11:33 AM PRINT PRODUCER Optic disc edema CT ANGIO BRAIN AND NECK Routine 09/08/2024 10:03 AM PRINT PRODUCER Optic disc edema FUNDUS PHOTO BOTH EYES Routine 10:14 AM PRINT PRODUCER Optic disc edema OPTIC NERVE ANALYSIS OCT Routine 08/10/2024 10:05 AM PRINT PRODUCER Optic disc edema LUIS AUTO VISUAL FIELD EXTENDED Routine 08/10/2024 10:05 AM PRINT PRODUCER Optic disc edema BASIC METABOLIC PANEL (CALCIUM TOTAL) STAT 06/10/2024 8:24 AM PRINT PRODUCER HIV-1 HIV-2 ANTIBODY + HIV P24 AG PANEL STAT 06/09/2024 7:13 PM PRINT PRODUCER EYE EXAM 06/01/2024 HEMOGLOBIN A1C - POINT OF CARE (AMB) [facility] Routine 03/29/2024 2:44 PM CDT 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 This test has not been cleared or approved by the U.S. Food and Drug Administration. NMO/AQP4 FACS Negative Negative 09/18/2024 2:02 PM PRINT PRODUCER [facility] Comment: ADDITIONAL INFORMATION This test was developed and its performance characteristics determined by [facility] in a manner consistent with CLIA requirements. This test has not been cleared or approved by the U.S. Food and Drug Administration. SEED CLEANING MANAGER Demyelinating Disease Interp, S SEE COMMENTS 09/18/2024 2:02 PM [facility] Comment: No informative autoantibodies were detected in this evaluation. A negative result does not preclude a diagnosis of an inflammatory SEED CLEANING MANAGER demyelinating disorder. Test Performed by: [facility] [place] [address] Chef & Owner: Marisa Keith Ph.D.; CLIA# [id number] Blood BLOOD SPECIMEN / Unknown Lab Venipuncture / Unknown 09/13/2024 11:01 AM PRINT PRODUCER 09/13/2024 11:11 AM PRINT PRODUCER Sandeep Hernandez MD LAB - CHEMISTRY VANESSA TOMLIN Performing Organization Address City/[facility]/ZIP Co de Phone Number [facility] [address] * TSH REFLEX FREE T4 (09/13/2024 11:01 AM [facility]) Pathologist [facility] TSH 3.145 0.350 - 4.940 uIU/mL 09/13/2024 12:01 PM [facility] Blood BLOOD SPECIMEN / Unknown Lab Venipuncture / Unknown 09/13/2024 11:01 AM PRINT PRODUCER 09/13/2024 11:28 AM PRINT PRODUCER Elder Gazra MD LAB - CHEMISTRY VANESSA TOMLIN [facility] [address] [place] [address], [facility] [phone] * LIPID PROFILE (09/13/2024 11:01 AM [facility]) Cholesterol Total 180 <200 mg/dL 09/13/2024 11:44 AM [facility] HDL 90 >40 mg/dL 09/13/2024 11:44 AM [facility] Comment: ATP III Classification of HDL Cholesterol: <40 mg/dL: Considered a major risk factor. >60 mg/dL: Considered a negative risk factor. LDL Calculated 62 <100 mg/dL 09/13/2024 11:44 AM [facility] Comment: ATP III Classification of LDL Cholesterol: <100 mg/dL: Optimal 100 - 129 mg/dL: Near Optimal/Above Optimal 130 - 159 mg/dL: Borderline High 160 - 189 mg/dL: High >190 mg/dL: Very High Triglycerides 138 <150 mg/dL 09/13/2024 11:44 AM [facility] Comment: ATP III Classification of Triglycerides: <150 mg/dL: Normal 150 - 199 mg/dL: Borderline High 200 - 400 mg/dL: High >500 mg/dL: Very High Blood BLOOD SPECIMEN / Unknown Lab Venipuncture / Unknown 09/13/2024 11:01 AM PRINT PRODUCER 09/13/2024 11:28 AM PRINT PRODUCER Elder Garza MD LAB - CHEMISTRY [facility] Organization Address City/State/ZIP Co de Phone Number [address] [address], [facility] [phone] * FUNDUS PHOTO BOTH EYES (09/13/2024 8:52 AM PRINT PRODUCER) Anatomical Region Laterality Modality Head External-Camera Photography Narrative 09/13/2024 10:22 AM PRINT PRODUCER Images from the original result were not included. OS: optic nerve grade 1 sectoral edema inferiorly Sandeep Hernandez MD OPHTHALMOLOGY SCHED ORD W PACS * LUIS AUTO VISUAL FIELD EXTENDED (09/13/2024 8:36 AM PRINT PRODUCER) Anatomical Region Laterality Modality Head External-Camera Photography Narrative 09/13/2024 10:22 AM PRINT PRODUCER Images from the original result were not included. Sandeep Hernandez MD OPHTHALMOLOGY SCHED ORD W PACS * OPTIC NERVE ANALYSIS OCT (09/13/2024 8:36 AM PRINT PRODUCER) Anatomical Region Laterality Modality Head External-Camera Photography Narrative 09/13/2024 10:22 AM PRINT PRODUCER Images from the original result were not included. Sandeep Hernandez MD OPHTHALMOLOGY SCHED ORD W PACS * VAS Carotid Duplex Bilateral (09/08/2024 11:33 AM PRINT PRODUCER) Anatomical Region Laterality Modality Neck Intravascular Ul trasound 09/08/2024 11:1 8 AM PRINT PRODUCER Narrative Procedure Note Ellis Grier MD - 09/09/2024 Sandeep Hernandez MD VASCULAR LAB ORDERAB LES * CT Angio Brain And Neck (09/08/2024 10:03 AM PRINT PRODUCER) Anatomical Region Laterality Modality Head Computed Tomogra phy 09/08/2024 12:5 8 PM PRINT PRODUCER Impressions 09/08/2024 1:10 PM PRINT PRODUCER IMPRESSION:. 1. No acute intracranial hemorrhage. 2. No large arterial occlusions or significant stenoses identified in the head or neck. > Interpreting Provider: Rc Bradshaw MD on 09/08/2024 1:10 PM Narrative 09/08/2024 1:10 PM PRINT PRODUCER PROCEDURE: CT ANGIO BRAIN AND NECK, DATE/TIME OF EXAM: 09/08/2024 10:03 AM, LOCATION [facility] INDICATION: H47.10: Optic disc edema ADDITIONAL [...] NECK, DATE/TIME OF EXAM: 09/08/2024 10:03AM, LOCATION [facility] INDICATION: H47.10: Optic disc edema ADDITIONAL [...] FUNDUS PHOTO BOTH EYES (08/10/2024 10:14 AM PRINT PRODUCER) Anatomical Region Laterality Modality Head External-Camera Photography Narrative 08/10/2024 2:52 PM PRINT PRODUCER Images from the original result were not included. Sandeep Hernandez MD OPHTHALMOLOGY SCHED ORD W PACS * OPTIC NERVE ANALYSIS OCT (08/10/2024 10:05 AM PRINT PRODUCER) Anatomical Region Laterality Modality Head External-Camera Photography Narrative 08/10/2024 2:52 PM PRINT PRODUCER Images from the original result were not included. Sandeep Hernandez MD OPHTHALMOLOGY SCHED ORD W PACS * LUIS AUTO VISUAL FIELD EXTENDED (08/10/2024 10:05 AM PRINT PRODUCER) Anatomical Region Laterality Modality Head External-Camera Photography Narrative 08/10/2024 2:52 PM PRINT PRODUCER Images from the original result were not included. Sandeep Hernandez MD OPHTHALMOLOGY SCHED ORD W PACS * (ABNORMAL) BASIC METABOLIC PANEL (CALCIUM TOTAL) (06/10/2024 8:24 AM PRINT PRODUCER) BUN 11 7 - 26 mg/dL 06/10/2024 9:20 AM [facility] Creatinine 0.47(L) 0.56 - 0.96 mg/dL 06/10/2024 9:20 AM [facility] Sodium 131(L) 136 - 145 mmol/L 06/10/2024 9:20 AM [facility] Potassium 4.4 3.5 - 4.5 mmol/L 06/10/2024 9:20 AM [facility] Chloride 92(L) 98 - 107 mmol/L 06/10/2024 9:20 AM [facility] CO2 22 22 - 29 mmol/L 06/10/2024 9:20 AM [facility] Glucose 782(HH) 70 - 99 mg/dL 06/10/2024 9:20 AM [facility] Calcium 8.9 8.4 - 10.2 mg/dL 06/10/2024 9:20 AM [facility] Anion Gap 17(H) 6 - 16 06/10/2024 9:20 AM [facility] BUN/Creatinine Ratio 23 7 - 23 06/10/2024 9:20 AM [facility] Osmolality Calculated 309(H) 275 - 295 mOsm/kg 06/10/2024 9:20 AM [facility] eGFR by CKD-EPI >90 >=90 mL/min/1.7 3 m2 06/10/2024 9:20 AM [facility] Blood BLOOD SPECIMEN / Unknown Venipuncture / Unknown 06/10/2024 8:24 AM PRINT PRODUCER 06/10/2024 8:35 AM PRINT PRODUCER Tobias Schafer MD LAB - CHEMISTRY ORDCharmaine TOMLIN [facility] [address] [place] [address], [facility] [phone] * HIV-1 HIV-2 ANTIBODY + HIV P24 AG PANEL (06/09/2024 7:13 PM PRINT PRODUCER) HIV Antigen/Antibod y 1 & 2 Non-reacti ve Non-react stephanie 06/09/2024 8:03 PM PRINT PRODUCER [facility] Comment:No Laboratory eviden ce of HIV infection. Blood BLOOD SPECIMEN / Unknown Venipuncture / Unknown 06/09/2024 7:13 PM PRINT PRODUCER 06/09/2024 7:20 PM PRINT PRODUCER Maliha Tilley MD LAB - CHEMISTRY VANESSA TOMLIN [facility] [address] [place] [address], [facility] [phone] * EYE EXAM (06/01/2024) Anatomical Region Laterality Modality Other Narrative 06/01/2024 Ordered by an unspecified provider. Scanned Document SCANNING ONLY * HEMOGLOBIN A1C - POINT OF CARE (AMB) [facility] (03/29/2024 2:44 PM CDT) Pathologist [facility] Hemoglobin A1c POCT 15 % [facility] [address] [place] [address] Blood BLOOD SPECIMEN / Unknown 03/29/2024 2:44 PM CDT Elder Garza MD LAB - POINT OF CARE ORDERABLES Performing Organization Address [facility]/ZIP Co de Phone Number [facility] [address] [facility] [address] [facility] [place] [address], [facility] [phone] from Last 3 Months or Most Recently Relevant to Health Maintenance Care Teams Glass Grinder Relationship Specialty Start Date End Date Suthan, Sambasivam, MD [address] [place] [address] PCP - General Internal Medicine 08/10/24
--- OUTSIDE RECORDS SUMMARY | 2024-09-19 23:15 | XMS_ITS | Encounter Summary ---
Author Organization [facility] Address [address] [place] [address] Care Team Providers Care Specialist Field Engineer Name Role Phone Joesph Jacobo MD Primary Care Provider [phone] None, Provider Primary Care Provider Innaa ble Encounter Details Date Type Department Care Team (Late st Contact Info) Description 04/18/2024 [employer]obe[employer] Message Enc [facility] Family & Internal Medicine [address] [address] Bobby, [facility] Provider surgical clearance Social History Tobacco Use Types Packs/Day Years Used Date Smoking Tobacco: Some Days Cigarettes 0.5 15 Smokeless Tobacco: Current Alcohol Use Standard Drinks/Week Comments Not Currently 0 (1 standard drink = 0.6 oz pur e alcohol) [facility] Utilities Answer Date Recorded In the past 12 months has e electric, gas, oil, or water [employer] threatened to shut off services in your [...] any time in the past 12 m [facility], were you homeless or living in a correction (including now)? No 04/07/2024 Comments No Sex and Gender Information Value Date Recorded Sex Assigned at Female 08/23/2024 9:22 AM COMMERCIAL TELLER Legal Sex Female 7:10 PM CDT Gender [...] documented as of this encounter Care Teams Specialist Field Engineer Relationship Specialty [place] [address] [facility] [address] [place] [address] PCP - General INTERNAL MEDICINE 02/22/24 07/09/24 None, Provider, PCP - General UNKNOWN PHYSICIAN SPECIALTY 08/23/24 Rosalia Garcia MD [address] [place] [address], [place] [address] Consulting Physician ENDOCRINOLOGY 03/29/24 documented as of this encounter
--- OUTSIDE RECORDS SUMMARY | 2024-09-19 23:15 | XMS_ITS | Encounter Summary ---
Author Organization [facility] Address [address] [place] [id number] Care Team Providers Care Records Tech Name Role Phone None, Provider MD Primary Care Provider Unavaila ble Reason for Visit * Reason Comments Fever Encounter Details Date Type Department Care Team ([facility] st Contact Info) Description 09/19/2024 7:12 AM HUMAN SERVICE SPECIALIST - 09/19/2024 11:14 AM [facility] Emergency [facility] [place] [address] Fever Discharge Disposition: Left Against Medical Advice Social History Tobacco Use Types Packs/Day Years Used Date Smoking Tobacco: Some Days Cigarettes 0.5 15 Smokeless Tobacco: Current Alcohol Use Standard Drinks/Week Comments Not Currently 0 (1 standard drink = 0.6 oz pur e alcohol) [facility] Utilities Answer Date Recorded In the past 12 months has e Bree[employer], gas, oil, or water [employer] threatened to shut off services in your [...] often do you attend chur ch or presybeterian services? Never 06/24/2024 Do you belong to any clubs o r organizations such as tenriism groups, unions, fraternal or athletic groups, or [...] Recorded Patient Health Questionnaire-2 Score 2 [facility] Answer Date Recorded [...] time in the past 12 m [facility], were you homeless or living in a halfway (including now)? No 06/24/2024 Comments No Sex and Gender Information Value Date Recorded Sex Assigned at Female 08/23/2024 9:22 AM HUMAN SERVICE SPECIALIST Legal Sex Female 7:10 PM CDT Gender Identity Not on file Sexual Orientation Not on file documented as of this encounter Last Filed Vital Signs Vital Sign Reading Time Taken Comments Blood Pressure 140/99 09/19/2024 4:52 AM HUMAN SERVICE SPECIALIST Pulse 95 09/19/2024 4:52 AM HUMAN SERVICE SPECIALIST Temperature 37.6 C (99.7 F) 09/19/2024 4:52 AM HUMAN SERVICE SPECIALIST Respiratory Rate 18 09/19/2024 4:52 AM HUMAN SERVICE SPECIALIST Oxygen Saturation 98% 09/19/2024 4:52 AM HUMAN SERVICE SPECIALIST Inhaled Oxygen Concentration - - Weight 58 kg (127 lb 13.9 oz) 09/19/2024 4:52 AM HUMAN SERVICE SPECIALIST Height 160 cm (5' 3 ) 09/19/2024 4:52 AM HUMAN SERVICE SPECIALIST Body Mass Index 22.65 09/19/2024 4:52 AM HUMAN SERVICE SPECIALIST documented in this encounter Functional Status * Are you deaf or do you have serious difficulty hearing Answer Date of Assessment Author Status No 08/24/2024 7:31 AM HUMAN SERVICE SPECIALIST Dorie Sutherland RN Active * Are you blind or do you have serious difficulty seeing, even when wearing glasses? Answer Date of Assessment Author Status No 08/24/2024 7:31 AM HUMAN SERVICE SPECIALIST Dorie Sutherland RN Active * Do you have serious [...] Doe RN Active documented in this encounter Medications at Time of Discharge HUMALOG 100 UNIT/ML injection (VIAL) Inject 0-80 [...] continuous. USE AND CHANGE EVERY 48 HOURS, 08/23/2023 levothyroxine (SYNTHROID) 100 MCG tablet Take 1 tablet (100 mcg total) by mouth daily. documented as of this encounter ED Notes * Tony Conde DO - 09/19/2024 11:13 AM CST I did not participate in the care of this patient. Tony Conde DO 09/19/24 1114 N SERVICE SPECIALIST * Nurse Cj Fiberglass Machine Operator I - 09/19/2024 7:34 AM CST Pt called X3 with no response. N SERVICE SPECIALIST * JASWANT Banegas - 09/19/2024 7:30 AM CST Pt called for vitals with no response N SERVICE SPECIALIST * Nurse Cj Fiberglass Machine Operator I - 09/19/2024 7:18 AM CST Called pt with no response. N SERVICE SPECIALIST * Shavon Bazzi RN - 09/19/2024 4:53 AM CST Pt presents to the ER with cough, fever, T max 102.2, congestion, started 5 days ago. N SERVICE SPECIALIST documented in this encounter Plan of [...] Total Score: 7 06/19/20 24 3:39 PM HUMAN SERVICE SPECIALIST documented as of this encounter Care Teams Records Tech Relationship Specialty Start Date End Date None, Provider, PCP - General UNKNOWN PHYSICIAN SPECIALTY 08/23/24 Rosalia Garcia MD [address] [facility] [place] [phone] Consulting Physician ENDOCRINOLOGY 03/29/24 documented as of this encounter
--- OUTSIDE RECORDS SUMMARY | 2024-09-19 23:15 | XMS_ITS | Encounter Summary ---
Author Organization [facility] Address [facility] [place] [address] Care Team Providers Care Inspector Timers Name Role Phone Joesph Jacobo MD Primary Care Provider [phone] Reason for Visit * Reason Onset Date Comments MEDICATION REFILL 08/26/2024 Encounter Details Date Type Department Care Team (Late Contact Info) Description 08/26/2024 Refill [facility] - Endocrinology [address] [place] [phone] Rosalia Hair MD [address] [place] [address] [place] [phone] MEDICATION REFILL Social History Tobacco Use Types Packs/Day Years Used Date Smoking Tobacco: Unknown Sex and Gender Information Value Date Recorded Sex Assigned at Not on file Gender Identity Not on file Sexual Orientation Not on file documented as of this encounter Plan of Treatment Upcoming Encounters Date Type Department Care Team (Late Contact Info) Description 09/27/2024 9:45 AM TOWNSHIP CLERK Office Visit [facility] - Ophthalmology [address] [place] [phone] Buddy Fuller MD [address] [place] [address] [place] [phone] 10/04/2024 1:00 PM TOWNSHIP CLERK Office Visit [facility] - Endocrinology [address] [place] [phone] Rosalia Hair MD [address] [facility] [place] [phone] 10/12/2024 2:15 PM CDT Office Visit [facility] - Ophthalmology [address] [place] [phone] Sandeep Hernandez MD [address] [place] [address] [place] [phone] 10/24/2024 2:00 PM CDT Office Visit [facility] - Ophthalmology [address] [place] [phone] Wong Ortiz MD [address] [place] [address] [place] [phone] 02/07/2025 8:30 AM CDT Office Visit [facility] - Rheumatology [address] [place] [phone] Roni Castañeda MD [facility] [phone] documented as of this encounter Visit Diagnoses Not on filedocumented in this encounter Care Teams Inspector Timers Relationship Specialty Start Date End Date Joesph Jacobo MD [address] [place] [phone] PCP - General Internal Medicine 08/10/24 documented as of this encounter
--- OUTSIDE RECORDS SUMMARY | 2024-09-19 23:15 | XMS_ITS | Encounter Summary ---
Author Organization [facility] Address [address] [facility] [place] [address] Care Team Providers Care Cold Type Artist Name Role Phone Joesph Jacobo MD Primary Care Provider [phone] Encounter Details Date Type Department Care Team (Late st Contact Info) Description 08/23/2024 Telephone [facility] - Endocrinology [address] [facility], [place] [phone] Rosalia Hair MD [facility] [place] [phone] Social History Tobacco Use Types Packs/Day Years Used Date Smoking Tobacco: Unknown Sex and Gender Information Value Date Recorded Sex Assigned at Not on file Gender Identity Not on file Sexual Orientation Not on file documented as of this encounter Miscellaneous Notes * Telephone Encounter - Sheree Gómez - 08/23/2024 1:11 PM CST Current Provider: Dr. Rosalia Hair Reason for Call: Madeleine Francisco's mother, Ms. Geneva Maya called to make sure she is in theloop w/ her daughter's care AND to let the office know she is in [facility] ER today. I do see where the Dexcom OMNIPOD 5 was just placed today. It looks like Ms. Salvador has missed numerous appts and communications. Some of these missed appts were due to her being in the hospital. It looks like OMINIPOD is being paid for by [facility]. Please give her mother a call so she can further assist in helpingher KEEP her appts and get back on track. Her Mother is her EMERGENCY CONTACT - Geneva Maya [phone]. Additionally, Dr. Hernandez, her face boss wanted to know if the equimpent gives readings to the office. Please answer this question for her mother. Her mother said she is struggling since she is homeless. Any support info you can give her mother will be helpful.Please give her a call ZENY. Patient Call Back Number: [phone] NIC SECTION TECHNICAL LEAD documented in this encounter Plan of Treatment Upcoming Encounters Date Type Department Care Team (Late st Contact Info) Description 09/27/2024 9:45 AM ORGANIC SECTION TECHNICAL LEAD Office Visit [facility] - Ophthalmology [address] [place] [phone] Buddy Fuller MD [address] [place] [address] [place] [address] 10/04/2024 1:00 PM ORGANIC SECTION TECHNICAL LEAD Office Visit [facility] - Endocrinology [address] [place] [phone] Rosalia Hair MD [address] [place] [phone] 10/12/2024 2:15 PM CDT Office Visit [facility] - Ophthalmology [address] [place] [phone] Sandeep Hernandez MD [address] [place] [address] [place] [phone] 10/24/2024 2:00 PM CDT Office Visit [facility] - Ophthalmology [address] [place] [phone] Wong Ortiz MD [address] [place] [address] [place] [phone] 02/07/2025 8:30 AM CDT Office Visit [facility] - Rheumatology [address] [place] [address], [place] [phone] Roni Castañeda MD [address] [place] [address] [place] [phone] documented as of this encounter Visit Diagnoses Not on filedocumented in this encounter Care Teams Cold Type Artist Relationship Specialty Start Date End Date Joesph Jacobo MD [address] [place] [phone] PCP - General Internal Medicine 08/10/24 documented as of this encounter
--- OUTSIDE RECORDS SUMMARY | 2024-09-19 23:15 | XMS_ITS | Patient Health Summary ---
Author Organization [facility] Address [address] [place] [address] Care Team Providers Care Neonatal Specialist Name Role Phone Joesph Jacobo MD Primary Care Provider [phone] Note from [facility],non-owned Affiliates and Associated Physician Practices is amultiple site organization consisting of ambulatory clinics and hospital sitesin [place], [place], [place] and [place]. This disclosure is being madepursuant to the Care Everywhere program and may not contain all information available regarding this patient. Last updated 18.[facility] Allergies No known active allergies Medications * Be aware that medications may not be up to date on this document. Alwaysverify current medications with the patient. * insulin lispro (HumaLOG) 100 UNIT/ML vial(Started 04/26/2024) INJECT 90 UNITS UNDER THE SKIN DAILY VIA CONTINUOUS INFUSION DEVICE 2 refills by 04/26/2025 * Continuous Glucose Sensor (Dexcom G6 Sensor) MIS(Started 05/02/2024) USE DIRECTED TO MONITOR GLUCOSE; CHANGE EVERY 10 DAYS 11 refills by 05/02/2025 * Continuous Glucose Transmitter (Dexcom G6 Transmitter) MISC(Started 07/24/2024) Use 1 Each Every 90 days 3 refills by 07/24/2025 * Insulin Disposable Pump (Omnipod 5 [id number] Pods Gen 5) MISC(Started 08/23/2024) Use 1 Each every 3 days 11 refills by 08/23/2025 * levothyroxine (Synthroid) 100 MCG tablet(Started 09/04/2024) Take 1 (one) tablet by mouth once daily 3 refills by 09/04/2025 Ended Medications* levothyroxine (Synthroid) 100 MCG tablet(Started 07/18/2024) (Discontinued) Take 1 (one) tablet by mouth once daily * Insulin Disposable Pump (Omnipod 5 [id number] Pods Gen 5) MISC(Started 03/13/2024) (Discontinued) USE AND CHANGE EVERY 48 HOURS * Insulin Disposable Pump (Omnipod 5 LhyZ5G2 Pods Gen 5) MISC(Started 08/22/2024) () Inject 3 Each subcutaneously 1 (one) time for 1 dose 11 refills by 08/22/2025 Active Problems Problem Noted Date Diagnosed Date [...] Comments Blood Pressure 120/82 06/10/2024 10:51 AM ADMISSIONS CONSULTANT Pulse 111 06/10/2024 10:51 AM ADMISSIONS CONSULTANT Temperature 36.6 C (97.9 F) 06/10/2024 10:51 AM ADMISSIONS CONSULTANT Respiratory Rate 18 06/10/2024 10:51 AM ADMISSIONS CONSULTANT Oxygen Saturation 100% 06/10/2024 10:51 AM ADMISSIONS CONSULTANT Inhaled Oxygen Concentration - - Weight 54.4 kg (120 lb) 06/09/2024 5:29 PM ADMISSIONS CONSULTANT Height 160 cm (5' 3 ) 06/09/2024 5:29 PM ADMISSIONS CONSULTANT Body Mass Index 21.26 06/09/2024 5:29 PM ADMISSIONS CONSULTANT Procedures * TSH REFLEX FREE T4(Performed 09/13/2024) 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) * LIPID PROFILE(Performed 09/13/2024) 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) * TOBACCO CONDITIONER DEMYELINATING DISEASE EVAL BLOOD(Performed 09/13/2024) Performed for Optic disc edema * FUNDUS PHOTO BOTH EYES(Performed 09/13/2024) Performed for Optic disc edema * LUIS AUTO VISUAL FIELD EXTENDED(Performed 09/13/2024) Performed for Optic disc edema * OPTIC NERVE ANALYSIS OCT(Performed 09/13/2024) Performed for Optic disc edema * VAS CAROTID DUPLEX BILATERAL(Performed 09/08/2024) Performed for Optic disc edema * CT ANGIO BRAIN AND NECK(Performed 09/08/2024) Performed for Optic disc edema * FUNDUS PHOTO BOTH EYES(Performed 08/10/2024) Performed [...] mellitus with diabetic cataract (HCC) Results * TOBACCO CONDITIONER DEMYELINATING DISEASE EVAL BLOOD (09/13/2024 11:01 AM [facility]) [facility] MOG FACS, S Negative Negative 09/18/2024 2:02 PM [facility] ([facility]) Comment: ADDITIONAL INFORMATION This test was developed and its performance characteristics determined by [facility] in a manner consistent with CLIA requirements. This test has not been cleared or approved by the U.S. Food and Drug Administration. NMO/AQP4 FACS Negative Negative 09/18/2024 2:02 PM [facility] ([facility]) Comment: ADDITIONAL INFORMATION This test was developed and its performance characteristics determined by [facility] in a manner consistent with CLIA requirements. This test has not been cleared or approved by the U.S. Food and Drug Administration. TOBACCO CONDITIONER Demyelinating Disease Interp, S SEE COMMENTS 09/18/2024 2:02 PM [facility] ([facility]) Comment: No informative autoantibodies were detected in this evaluation. A negative result does not preclude a diagnosis of an inflammatory TOBACCO CONDITIONER demyelinating disorder. Test Performed by: [facility] [place] [address] Car Manager: Marisa Keith Ph.D.; IA# [id number] Blood BLOOD SPECIMEN / Unknown Lab Venipuncture / Unknown 09/13/2024 11:01 AM ADMISSIONS CONSULTANT 09/13/2024 11:11 AM ADMISSIONS CONSULTANT Sandeep Hernandez MD LAB - CHEMISTRY ORDCharmaine TOMLIN [facility] ([facility]) [address] * TSH REFLEX FREE T4 (09/13/2024 11:01 AM ADMISSIONS CONSULTANT) Pathologist [facility] TSH 3.145 0.350 - 4.940 uIU/mL 09/13/2024 12:01 PM [facility] Blood BLOOD SPECIMEN / Unknown Lab Venipuncture / Unknown 09/13/2024 11:01 AM ADMISSIONS CONSULTANT 09/13/2024 11:28 AM ADMISSIONS CONSULTANT Elder Garza MD LAB - CHEMISTRY ORDCharmaine TOMLIN [facility] [address] [place] [address], [facility] [phone] * LIPID PROFILE (09/13/2024 11:01 AM ADMISSIONS CONSULTANT) Cholesterol Total 180 <200 mg/dL 09/13/2024 11:44 AM [facility] HDL 90 >40 mg/dL 09/13/2024 11:44 AM [facility] Comment: ATP III Classification of HDL Cholesterol: <40 mg/dL: Considered a major risk factor. >60 mg/dL: Considered a negative risk factor. LDL Calculated 62 <100 mg/dL 09/13/2024 11:44 AM [facility] Comment: ATP III Classification of LDL Cholesterol: <100 mg/dL: Optimal 100 - 129 mg/dL: Near Optimal/Above Optimal 130 - 159 mg/dL: Borderline High 160 - 189 mg/dL: High >190 mg/dL: Very High Triglycerides 138 <150 mg/dL 09/13/2024 11:44 AM ADMISSIONS CONSULTANT [facility] Comment: ATP III Classification of Triglycerides: <150 mg/dL: Normal 150 - 199 mg/dL: Borderline High 200 - 400 mg/dL: High >500 mg/dL: Very High Blood BLOOD SPECIMEN / Unknown Lab Venipuncture / Unknown 09/13/2024 11:01 AM ADMISSIONS CONSULTANT 09/13/2024 11:28 AM ADMISSIONS CONSULTANT Elder Garza MD LAB - CHEMISTRY VANESSA TOMLIN [facility] [address] [place] [address], [facility] [phone] * FUNDUS PHOTO BOTH EYES (09/13/2024 8:52 AM ADMISSIONS CONSULTANT) Anatomical Region Laterality Modality Head External-Camera Photography Narrative 09/13/2024 10:22 AM ADMISSIONS CONSULTANT Images from the original result were not included. OS: optic nerve grade 1 sectoral edema inferiorly Sandeep Hernandez MD OPHTHALMOLOGY SCHED ORD W PACS * LUIS AUTO VISUAL FIELD EXTENDED (09/13/2024 8:36 AM ADMISSIONS CONSULTANT) Anatomical Region Laterality Modality Head External-Camera Photography Narrative 09/13/2024 10:22 AM ADMISSIONS CONSULTANT Images from the original result were not included. Sandeep Hernandez MD OPHTHALMOLOGY SCHED ORD W PACS * OPTIC NERVE ANALYSIS OCT (09/13/2024 8:36 AM ADMISSIONS CONSULTANT) Anatomical Region Laterality Modality Head External-Camera Photography Narrative 09/13/2024 10:22 AM ADMISSIONS CONSULTANT Images from the original result were not included. Sandeep Hernandez MD OPHTHALMOLOGY SCHED ORD W PACS * VAS Carotid Duplex Bilateral (09/08/2024 11:33 AM ADMISSIONS CONSULTANT) Anatomical Region Laterality Modality Neck Intravascular Ul trasound 09/08/2024 11:1 8 AM ADMISSIONS CONSULTANT Narrative Procedure Note Ellis Grier MD - 09/09/2024 Sandeep Hernandez MD VASCULAR LAB ORDERAB LES * CT Angio Brain And Neck (09/08/2024 10:03 AM ADMISSIONS CONSULTANT) Anatomical Region Laterality Modality Head Computed Tomogra phy 09/08/2024 12:5 8 PM ADMISSIONS CONSULTANT Impressions 09/08/2024 1:10 PM ADMISSIONS CONSULTANT IMPRESSION:. 1. No acute intracranial hemorrhage. 2. No large arterial occlusions or significant stenoses identified in the head or neck. 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 Sandeep Hernandez MD OPHTHALMOLOGY SCHED ORD W PACS * OPTIC NERVE ANALYSIS OCT (08/10/2024 10:05 AM ADMISSIONS CONSULTANT) Anatomical Region Laterality Modality Head External-Camera Photography Narrative 08/10/2024 2:52 PM ADMISSIONS CONSULTANT Images from the original result were not included. Sandeep Hernandez MD OPHTHALMOLOGY SCHED ORD W PACS * LUIS AUTO VISUAL FIELD EXTENDED (08/10/2024 10:05 AM ADMISSIONS CONSULTANT) Anatomical Region Laterality Modality Head External-Camera Photography Narrative 08/10/2024 2:52 PM ADMISSIONS CONSULTANT Images from the original result were not included. Sandeep Hernandez MD OPHTHALMOLOGY SCHED ORD W PACS * (ABNORMAL) GLUCOSE - POINT OF CARE (06/10/2024 11:24 AM ADMISSIONS CONSULTANT) Glucose WB/POC >500(HH) 70 - 99 mg/dL 06/12/2024 10:59 AM ADMISSIONS CONSULTANT [facility] Specimen Type Cap Fingerstick 2023 10:59 AM ADMISSIONS CONSULTANT [facility] Blood BLOOD SPECIMEN / Unknown 06/10/2024 11:24 AM ADMISSIONS CONSULTANT 06/12/2024 10:59 AM ADMISSIONS CONSULTANT Provider Unknown LAB - POINT OF CARE ORDERABLES [address] [address], [facility] [phone] * BARTONELLA MONTANO ANTIBODY IGM (06/10/2024 8:24 AM ADMISSIONS CONSULTANT) Bartonella montano Antibody IgM < 1:16 06/16/2024 9:49 AM ADMISSIONS CONSULTANT [facility] ([facility]) Comment: INTERPRETIVE INFORMATION: Bartonella montano Ab, IgM Less than 1:16 ...... Negative-No significant level of Bartonella montano IgM antibody detected. 1:16 or greater ..... Positive-Presence of IgM antibody to Bartonella montano detected, suggestive of current or recent infection. The presence of IgM antibodies suggests recent infection. Low levels of IgM antibodies may occasionally persist for more than 12 months post-infection. This test was developed and its performance characteristics determined by [facility]. It has not been cleared or approved by the US Food and Drug Administration. This test was performed in a CLIA certified laboratory and is intended for clinical purposes. Performed By: [facility] [address] [place] [address] Gambling Box Person: Yusuf Castro MD, PhD CLIA Number: [id number] Blood BLOOD SPECIMEN / Unknown Venipuncture / Unknown 06/10/2024 8:24 AM ADMISSIONS CONSULTANT 06/10/2024 8:29 AM ADMISSIONS CONSULTANT Maliha Tilley MD LAB - SEROLOGY ORDER NAUN [facility] [employer] [facility]) [address] [place] [address] * SYPHILIS ANTIBODY CASCADING REFLEX (06/10/2024 8:24 AM ADMISSIONS CONSULTANT) Treponema pallidum Antibody Non-react stephanie Non-react stephanie 06/10/2024 9:25 AM ADMISSIONS CONSULTANT [facility] Comment: No Laboratory evidence of syphilis infection. Note: Circulating antibodies may be low or undetectable in early infection. If recent exposure is suspected, re-draw sample in 2-4 weeks and repeat testing. Blood BLOOD SPECIMEN / Unknown Venipuncture / Unknown 06/10/2024 8:24 AM ADMISSIONS CONSULTANT 06/10/2024 8:29 AM ADMISSIONS CONSULTANT Maliha Tilley MD LAB - SEROLOGY ORDER NAUN [facility] [address] [place] [address], [facility] [phone] * SUSHANT BLOOD SCREEN W/REFLEX TITER (06/10/2024 8:24 AM ADMISSIONS CONSULTANT) SUSHANT IgG None Detected None Detected 06/13/2024 8:57 PM ADMISSIONS CONSULTANT [employer] [employer] ([facility]) Comment: If suspicion of connective tissue disease is strong and SUSHANT EIA is negative, consider testing for SUSHANT by IFA ([id number]). INTERPRETIVE INFORMATION: Anti-Nuclear Antibodies (SUSHANT), IgG by CHINMAY Antinuclear Antibodies (SUSHANT), IgG by CHINMAY: SUSHANT specimens are screened using enzyme-linked immunosorbent assay (CHINMAY) methodology. All CHINMAY results reported as Detected are further tested by indirect fluorescent assay (IFA) using HEp-2 substrate with an IgG-specific conjugate. The SUSHANT CHINMAY screen is designed to detect antibodies against dsDNA, histones, SS-A (Ro), SS-B (La), Francois, Francois/SCHOOL BUSINESS ADMINISTRATOR, Scl-70, Марина-1, centromeric proteins, other antigens extracted from the HEp-2 cell nucleus. SUSHANT CHINMAY assays have been reported to have lower sensitivities than SUSHANT IFA for systemic autoimmune rheumatic diseases (SARD). Negative results do not necessarily rule out SARD. Performed By: [facility] [address] [place] [id number] Gambling Box Person: Yusuf Castro MD, PhD CLIA Number: [id number] Blood BLOOD SPECIMEN / Unknown Venipuncture / Unknown 06/10/2024 8:24 AM ADMISSIONS CONSULTANT 06/10/2024 8:29 AM ADMISSIONS CONSULTANT Elke Mcneill MD LAB - CHEMISTRY ORDE RABLES Performing Organization Address [facility]/ZIP Co de Phone Number [facility] [employer] ([facility]) [address] * (ABNORMAL) ANGIOTENSIN CONVERTING ENZYME BLOOD (06/10/2024 8:24 AM ADMISSIONS CONSULTANT) [facility] Angiotensin-Conve rting Enzyme 90(H) 16 - 85 U/L 06/13/2024 7:12 PM [facility]) Comment: Performed By: [facility] [address] [place] [address] Gambling Box Person: Yusuf Castro MD, PhD CLIA Number: [id number] Blood BLOOD SPECIMEN / Unknown Venipuncture / Unknown 06/10/2024 8:24 AM ADMISSIONS CONSULTANT 06/10/2024 8:29 AM ADMISSIONS CONSULTANT Elke Mcneill MD LAB - CHEMISTRY VANESSA TOMLIN Performing Organization Address [facility] de Phone Number [facility]) [address] [place] [address] * (ABNORMAL) BASIC METABOLIC PANEL (CALCIUM TOTAL) (06/10/2024 8:24 AM ADMISSIONS CONSULTANT) [facility] BUN 11 7 - 26 mg/dL 06/10/2024 [...] 22 - 29 mmol/L 06/10/2024 9:20 AM [facility] Glucose 782(HH) 70 - 99 mg/dL 06/10/2024 9:20 AM [facility] Calcium 8.9 8.4 - 10.2 mg/dL 06/10/2024 9:20 AM [facility] Anion Gap 17(H) 6 - 16 06/10/2024 9:20 AM ADMISSIONS CONSULTANT [facility] BUN/Creatinine Ratio 23 7 - 23 06/10/2024 9:20 AM [facility] Osmolality Calculated 309(H) 275 - 295 mOsm/kg 06/10/2024 9:20 AM [facility] eGFR by CKD-EPI >90 >=90 mL/min/1.7 3 m2 06/10/2024 9:20 AM [facility] Blood BLOOD SPECIMEN / Unknown Venipuncture / Unknown 06/10/2024 8:24 AM ADMISSIONS CONSULTANT 06/10/2024 8:35 AM ADMISSIONS CONSULTANT Tobias Schafer MD LAB - CHEMISTRY VANESSA TOMLIN [facility] [address] [place] [address], [facility] [phone] * VDRL CSF W REFLEX TO TITER (06/10/2024 5:22 AM ADMISSIONS CONSULTANT) VDRL CSF Non Reactive Non Reactive 06/12/2024 3:54 PM ADMISSIONS CONSULTANT [email or web address] ([facility]) Comment: Because the VDRL was Non Reactive, the VDRL titer was not performed. Performed By: [facility] [address] [place] [address] Gambling Box Person: Yusuf Castro MD, PhD CLIA Number: [id number] Cerebral spinal fluid CEREBROSPINAL FLUID SPECIMEN / Unknown Collection / Unknown 06/10/2024 5:22 AM ADMISSIONS CONSULTANT 06/10/2024 5:39 AM ADMISSIONS CONSULTANT Elke Mcneill MD LAB - BODY FLUID ORD ERAISAEL [facility] [employer] [facility]) [address] * CULTURE CSF+GRAM STAIN (06/10/2024 5:22 AM ADMISSIONS CONSULTANT) Culture No growth REYNA 06/17/2024 5:20 AM ADMISSIONS CONSULTANT [facility] Gram Stain No organisms seen 024 5:20 AM ADMISSIONS CONSULTANT [facility] Gram Stain No polymorphonuclear cells 06/17/2024 5:20 AM ADMISSIONS CONSULTANT [facility] Cerebral spinal fluid CEREBROSPINAL FLUID SPECIMEN / Unknown Collection / Unknown 06/10/2024 5:22 AM ADMISSIONS CONSULTANT 06/10/2024 5:39 AM ADMISSIONS CONSULTANT Elke Mcneill MD LAB - MICROBIOLOGY O RDERABLES Performing Organization Address City/[facility]/ZIP Co de Phone Number [facility] [address] [place], [place] [address] [phone] * ANGIOTENSIN CONVERTING ENZYME CSF (06/10/2024 5:22 AM ADMISSIONS CONSULTANT) Angiotensin-Convert ing Enzyme CSF 2.5 0.0 - 2.5 U/L 06/15/2024 12:12 AM ADMISSIONS CONSULTANT [email or web address] ([facility]) Comment: This test was developed and its performance characteristics determined by [facility]. It has not been cleared or approved by the US Food and Drug Administration. This test was performed in a CLIA certified laboratory and is intended for clinical purposes. Performed By: [facility] [address] [place] [address] Gambling Box Person: Yusuf Castro MD, PhD CLIA Number: [id number] Cerebral spinal fluid CEREBROSPINAL FLUID SPECIMEN / Unknown Collection / Unknown 06/10/2024 5:22 AM ADMISSIONS CONSULTANT 06/10/2024 5:39 AM ADMISSIONS CONSULTANT Elke Mcneill MD LAB - BODY FLUID ORD ERABLES Performing Organization Address [facility] de Phone Number [facility]) [address] * MYELIN BASIC PROTEIN CSF (06/10/2024 5:22 AM ADMISSIONS CONSULTANT) Myelin Basic Protein 2.15 0.00 - 5.50 ng/mL 06/14/2024 9:42 AM ADMISSIONS CONSULTANT [email or web address] ([facility]) Comment: INTERPRETIVE INFORMATION: Myelin Basic Protein This test was developed and its performance characteristics determined by [facility]. It has not been cleared or approved by the US Food and Drug Administration. This test was performed in a CLIA certified laboratory and is intended for clinical purposes. Performed By: [facility] [address] [place] [address] Gambling Box Person: Yusuf Castro MD, PhD CLIA Number: [id number] Cerebral spinal fluid CEREBROSPINAL FLUID SPECIMEN / Unknown Collection / Unknown 06/10/2024 5:22 AM ADMISSIONS CONSULTANT 06/10/2024 5:39 AM ADMISSIONS CONSULTANT Elke Mcneill MD LAB - BODY FLUID ORD ERABLES [facility] ([facility]) [address] [place], [place] [address] * (ABNORMAL) CELL COUNT W DIFFERENTIAL CSF (06/10/2024 5:22 AM ADMISSIONS CONSULTANT) Tube Number [id number] 06/10/2024 5:51 AM [facility] Xanthochromia ABSENT ABSENT 06/10/2024 5:51 AM [facility] CSF Appearance CLEAR 06/10/2024 5:51 AM [facility] CSF Color COLORLESS 06/10/2024 5:51 AM [facility] Total Nucleated Cells CSF 2 <=5 x10E6/L 06/10/2024 5:51 AM [facility] RBC Count CSF 18(H) <1 x10E6/L 06/10/2024 5:51 AM [facility] Cerebral spinal fluid CEREBROSPINAL FLUID SPECIMEN / Unknown Collection / Unknown 06/10/2024 5:22 AM ADMISSIONS CONSULTANT 06/10/2024 5:39 AM ADMISSIONS CONSULTANT Narrative [facility] - 06/10/2024 5:51 AM ADMISSIONS CONSULTANT No differential performed per procedure Elke Mcneill MD LAB - BODY FLUID ORD ERABLES [address] [address], [facility] [phone] * (ABNORMAL) PROTEIN CSF (06/10/2024 5:22 AM ADMISSIONS CONSULTANT) Protein CSF 54(H) 15 - 45 mg/dL 06/10/2024 6:15 AM [facility] Cerebral spinal fluid CEREBROSPINAL FLUID SPECIMEN / Unknown Collection / Unknown 06/10/2024 5:22 AM ADMISSIONS CONSULTANT 06/10/2024 5:39 AM ADMISSIONS CONSULTANT Elke Mcneill MD LAB - BODY FLUID ORD ERABLES [address] [address], [facility] [phone] * (ABNORMAL) GLUCOSE CSF (06/10/2024 5:22 AM ADMISSIONS CONSULTANT) Glucose CSF 294(H) 40 - 70 mg/dL 06/10/2024 6:15 AM ADMISSIONS CONSULTANT [facility] Cerebral spinal fluid CEREBROSPINAL FLUID SPECIMEN / Unknown Collection / Unknown 06/10/2024 5:22 AM ADMISSIONS CONSULTANT 06/10/2024 5:39 AM ADMISSIONS CONSULTANT Elke Mcneill MD LAB - BODY FLUID ORD ERABLES [address] [address], [facility] [phone] * (ABNORMAL) PROTEIN ELECTROPHORESIS CSF PANEL (06/10/2024 5:22 AM ADMISSIONS CONSULTANT) Protein CSF 48.6(H) 15.0 - 45.0 mg/dL 06/12/2024 5:17 PM ADMISSIONS CONSULTANT [facility] ([facility]) Prealbumin CSF 1.9 0.0 - 3.1 mg/dL 06/12/2024 5:17 PM ADMISSIONS CONSULTANT [facility] ([facility]) Albumin CSF 25.8 8.4 - 34.2 mg/dL 06/12/2024 5:17 PM ADMISSIONS CONSULTANT [facility] ([facility]) Alpha-1 Globulin CSF 1.7 0.0 - 3.1 mg/dL 06/12/2024 5:17 PM ADMISSIONS CONSULTANT [facility] ([facility]) Uhxwm-3-Imowfiiz CSF 5.8(H) 0.0 - 5.4 mg/dL 06/12/2024 5:17 PM ADMISSIONS CONSULTANT [facility] ([facility]) Beta-Globulin CSF 9.2(H) 0.0 - 8.1 mg/dL 06/12/2024 5:17 PM ADMISSIONS CONSULTANT [email or web address] ([facility]) Gamma Globulin CSF 4.2 0.0 - 5.4 mg/dL 06/12/2024 5:17 PM ADMISSIONS CONSULTANT [email or web address] ([facility]) Comment: Performed By: [facility] [employer] [address] [place] [address] Gambling Box Person: Yusuf Castro MD, PhD CLIA Number: [id number] Cerebral spinal fluid CEREBROSPINAL FLUID SPECIMEN / Unknown Collection / Unknown 06/10/2024 5:22 AM ADMISSIONS CONSULTANT 06/10/2024 5:39 AM ADMISSIONS CONSULTANT Elke Mcneill MD LAB - BODY FLUID ORD ERABLES [facility] [employer] [facility]) [address] * Lumbar Puncture (06/10/2024 4:22 AM ADMISSIONS CONSULTANT) Narrative Elke Mcneill MD - 06/10/2024 4:22 AM ADMISSIONS CONSULTANT Mann Saez DO 06/15/2024 12:03 PM Lumbar Puncture Date/Time: 06/10/2024 4:22 AM Performed by: Mann Saez DO Authorized by: Elke Mcneill MD Consent: Consent obtained: Written and verbal Consent given by: Patient Risks, benefits, and alternatives were discussed: yes Risks discussed: Headache, bleeding, infection, nerve damage, repeat procedure and pain Alternatives discussed: Alternative treatment, no treatment, delayed treatment and observation [place] protocol: Procedure explained and questions answered to patient or proxy's satisfaction: yes Relevant documents present and verified: yes Test results available: yes Imaging studies available: yes Required blood products, implants, devices, and special equipment available: yes Site/side marked: yes Patient identity confirmed: Verbally with patient, arm band and hospital-assigned identification number Pre-procedure details: Procedure purpose: Diagnostic [...] Brain Arterial Wo Cont (06/09/2024 11:16 PM ADMISSIONS CONSULTANT) Anatomical Region Laterality Modality Head Magnetic Resonan ce 06/10/2024 1:00 AM ADMISSIONS CONSULTANT Impressions 06/10/2024 10:52 AM ADMISSIONS CONSULTANT IMPRESSION: 1.No evidence of acute intracranial findings [...] 06/10/2024 10:52 AM Narrative 06/10/2024 10:52 AM ADMISSIONS CONSULTANT PROCEDURE: MRI BRAIN WWO CONTRAST, MRI ANGIO BRAIN ARTERIAL WO CONT, MRI ORBITS OR FACE WWO CONTRAST, MRI ANGIO BRAIN VENOUS WWO CONT, DATE/TIME OF EXAM: 06/09/2024 11:15 PM, LOCATION [facility] INDICATION: H54.62: Vision loss of left eye ADDITIONAL CLINICAL INFORMATION: Ordering Provider Reason For Exam: r/o mass/IIH (accession [id number]), vision loss (accession [id number]), vision loss (accession [id number]), vision loss (accession [id number]) Technologist Note: Does the patient have a [...] week. Was sent to retinal specialist by supervisor fiber locking for preoperative ophthalmic evaluation prior to left [...] CONT, DATE/TIMEOF EXAM: 06/09/2024 11:15 PM, LOCATION [facility] INDICATION: H54.62: Vision loss of left eye ADDITIONAL CLINICAL INFORMATION: Ordering Provider Reason For Exam: r/o mass/IIH (accession [id number]), vision loss (accession [id number]), vision loss (accession [id number]), vision loss (accession [id number]) Technologist Note: Does the patient have a [...] week. Was sent to retinal specialist by supervisor fiber locking for preoperative ophthalmic evaluation prior to left [...] or Face Wwo Contrast (06/09/2024 11:16 PM ADMISSIONS CONSULTANT) Anatomical Region Laterality Modality Head Magnetic Resonan ce 06/10/2024 1:00 AM ADMISSIONS CONSULTANT Impressions 06/10/2024 10:52 AM ADMISSIONS CONSULTANT IMPRESSION: 1.No evidence of acute intracranial findings [...] 06/10/2024 10:52 AM Narrative 06/10/2024 10:52 AM ADMISSIONS CONSULTANT PROCEDURE: MRI BRAIN WWO CONTRAST, MRI ANGIO BRAIN ARTERIAL WO CONT, MRI ORBITS OR FACE WWO CONTRAST, MRI ANGIO BRAIN VENOUS WWO CONT, DATE/TIME OF EXAM: 06/09/2024 11:15 PM, LOCATION [facility] INDICATION: H54.62: Vision loss of left eye ADDITIONAL CLINICAL INFORMATION: Ordering Provider Reason For Exam: r/o mass/IIH (accession [id number]), vision loss (accession [id number]), vision loss (accession [id number]), vision loss (accession [id number]) Technologist Note: Does the patient have a [...] week. Was sent to retinal specialist by supervisor fiber locking for preoperative ophthalmic evaluation prior to left [...] CONT, DATE/TIMEOF EXAM: 06/09/2024 11:15 PM, LOCATION [facility] INDICATION: H54.62: Vision loss of left eye ADDITIONAL CLINICAL INFORMATION: Ordering Provider Reason For Exam: r/o mass/IIH (accession [id number]), vision loss (accession [id number]), vision loss (accession [id number]), vision loss (accession [id number]) Technologist Note: Does the patient have a [...] week. Was sent to retinal specialist by supervisor fiber locking for preoperative ophthalmic evaluation prior to left [...] Brain Venous Wwo Cont (06/09/2024 11:16 PM ADMISSIONS CONSULTANT) Anatomical Region Laterality Modality Head Magnetic Resonan ce 06/10/2024 1:00 AM ADMISSIONS CONSULTANT Impressions 06/10/2024 10:52 AM ADMISSIONS CONSULTANT IMPRESSION: 1.No evidence of acute intracranial findings [...] obtained for further evaluation. > Interpreting Provider: Agnieszak Castro MD on 06/10/2024 10:52 AM Narrative 06/10/2024 10:52 AM ADMISSIONS CONSULTANT PROCEDURE: MRI BRAIN WWO CONTRAST, MRI ANGIO BRAIN ARTERIAL WO CONT, MRI ORBITS OR FACE WWO CONTRAST, MRI ANGIO BRAIN VENOUS WWO CONT, DATE/TIME OF EXAM: 06/09/2024 11:15 PM, LOCATION [facility] INDICATION: H54.62: Vision loss of left eye ADDITIONAL CLINICAL INFORMATION: Ordering Provider Reason For Exam: r/o mass/IIH (accession [id number]), vision loss (accession [id number]), vision loss (accession [id number]), vision loss (accession [id number]) Technologist Note: Does the patient have a [...] week. Was sent to retinal specialist by supervisor fiber locking for preoperative ophthalmic evaluation prior to left [...] CONT, DATE/TIMEOF EXAM: 06/09/2024 11:15 PM, LOCATION [facility] INDICATION: H54.62: Vision loss of left eye ADDITIONAL CLINICAL INFORMATION: Ordering Provider Reason For Exam: r/o mass/IIH (accession [id number]), vision loss (accession [id number]), vision loss (accession [id number]), vision loss (accession [id number]) Technologist Note: Does the patient have a [...] week. Was sent to retinal specialist by supervisor fiber locking for preoperative ophthalmic evaluation prior to left [...] MRI Brain Wwo Contrast (06/09/2024 11:15 PM ADMISSIONS CONSULTANT) Anatomical Region Laterality Modality Head Magnetic Resonan ce 06/10/2024 1:00 AM ADMISSIONS CONSULTANT Impressions 06/10/2024 10:52 AM ADMISSIONS CONSULTANT IMPRESSION: 1.No evidence of acute intracranial findings [...] 06/10/2024 10:52 AM Narrative 06/10/2024 10:52 AM ADMISSIONS CONSULTANT PROCEDURE: MRI BRAIN WWO CONTRAST, MRI ANGIO BRAIN ARTERIAL WO CONT, MRI ORBITS OR FACE WWO CONTRAST, MRI ANGIO BRAIN VENOUS WWO CONT, DATE/TIME OF EXAM: 06/09/2024 11:15 PM, LOCATION [facility] INDICATION: H54.62: Vision loss of left eye ADDITIONAL CLINICAL INFORMATION: Ordering Provider Reason For Exam: r/o mass/IIH (accession [id number]), vision loss (accession [id number]), vision loss (accession [id number]), vision loss (accession [id number]) Technologist Note: Does the patient have a [...] week. Was sent to retinal specialist by supervisor fiber locking for preoperative ophthalmic evaluation prior to left [...] CONT, DATE/TIMEOF EXAM: 06/09/2024 11:15 PM, LOCATION [facility] INDICATION: H54.62: Vision loss of left eye ADDITIONAL CLINICAL INFORMATION: Ordering Provider Reason For Exam: r/o mass/IIH (accession [id number]), vision loss (accession [id number]), vision loss (accession [id number]), vision loss (accession [id number]) Technologist Note: Does the patient have a [...] week. Was sent to retinal specialist by supervisor fiber locking for preoperative ophthalmic evaluation prior to left [...] * XR Chest 2Vw (06/09/2024 7:34 PM ADMISSIONS CONSULTANT) Anatomical Region Laterality Modality Chest Digital Radiogra phy 06/09/2024 7:46 PM ADMISSIONS CONSULTANT Narrative 06/10/2024 8:29 AM ADMISSIONS CONSULTANT PROCEDURE: XR CHEST 2VW, DATE/TIME OF EXAM: 06/09/2024 7:34 PM, LOCATION [facility] INDICATION: H54.62: Vision loss of left eye [...] intact. Report dictated by Moon Reid MD (outside residential sales professional). Radny Freeman MD have personally reviewed and interpreted this examination/study. > Interpreting Provider: Randy Pagan MD on 06/10/2024 8:29 AM Procedure Note Randy Pagan MD - 06/10/2024 PROCEDURE: XR CHEST 2VW, DATE/TIME OF EXAM: 06/09/2024 7:34 PM, LOCATION [facility] INDICATION: H54.62: Vision loss of left eye [...] isintact. Report dictated by Moon Reid MD (outside residential sales professional). Randy Freeman MD have personally reviewed and interpreted this examination/study. > Interpreting Provider: Randy Pagan MD on 06/10/2024 8:29 AM Maliha Tilley MD DIAGNOSTIC IMAGING O RDERABLES * LYME DISEASE TOTAL AB W RFLX IMMUNOASSAY (06/09/2024 7:13 PM ADMISSIONS CONSULTANT) Pathologist [facility] Lyme Antibody Total Negative Negative 06/11/2024 10:07 AM ADMISSIONS CONSULTANT [facility] ([facility]) Comment: Lyme antibodies not detected. Reflex testing is not indicated. No laboratory evidence of infection with B. burgdorferi (Lyme disease). Negative results may occur in patients recently infected (less than or equal to 14 days) with B. burgdorferi. If recent infection is suspected, repeat testing on a new sample collected in 7 to 14 days is recommended. Blood BLOOD SPECIMEN / Unknown Venipuncture / Unknown 06/09/2024 7:13 PM ADMISSIONS CONSULTANT 06/09/2024 7:20 PM ADMISSIONS CONSULTANT Narrative [facility] ([facility]) - 06/11/2024 10:07 AM ADMISSIONS CONSULTANT Performed at: [employer] [facility] [address] [place], [place] [id number] Car Manager: Toni Johnston PhD, Phone: [phone] Maliha Tilley MD LAB - CHEMISTRY [facility]) [address] [place] [address], [facility] * QUANTIFERON-TB GOLD PLUS 4-TUBE (06/09/2024 7:13 PM ADMISSIONS CONSULTANT) [facility] QuantiFERON Mitogen Minus NIL 9.95 IU/mL 06/12/2024 6:18 AM ADMISSIONS CONSULTANT [facility]) QuantiFERON Nil Value 0.05 IU/mL 06/12/2024 6:18 AM ADMISSIONS CONSULTANT [facility]) QuantiFERON Plus TB1 Minus NIL 0.00 <=0.34 IU/mL 06/12/2024 6:18 AM ADMISSIONS CONSULTANT [facility]) QuantiFERON Plus TB2 Minus NIL 0.00 <=0.34 IU/mL 06/12/2024 6:18 AM ADMISSIONS CONSULTANT [facility]) QuantiFERON-TB Gold Plus Negative Negative 06/12/2024 6:18 AM ADMISSIONS CONSULTANT [facility]) Comment: INTERPRETIVE INFORMATION:Quantiferon TB Gold Plus Interferon [...] Mycobacterium tuberculosis Infection -- [place], 2010 (http://www.cdc.gov/mmwr/preview/mmwrhtml/yn9458e2.htm), for more information concerning test performance in low-prevalence populations and use in occupational screening. Performed By: [employer] [address] [place] [address] Gambling Box Person: Yusuf Castro MD, PhD CLIA Number: [id number] Blood BLOOD SPECIMEN / Unknown Venipuncture / Unknown 06/09/2024 7:13 PM ADMISSIONS CONSULTANT 06/09/2024 7:24 PM ADMISSIONS CONSULTANT Maliha Tilley MD LAB - CHEMISTRY V[facility]SA [facility] Performing Organization Address City/[facility]/ZIP Co de Phone Number [facility]) [address] [place] [address] * HIV-1 HIV-2 ANTIBODY + HIV P24 AG PANEL (06/09/2024 7:13 PM ADMISSIONS CONSULTANT) Pathologist [facility] HIV Antigen/Antibod y 1 & 2 Non-reacti ve Non-react stephanie 06/09/2024 8:03 PM ADMISSIONS CONSULTANT [facility] Comment:No Laboratory eviden ce of HIV infection. Blood BLOOD SPECIMEN / Unknown Venipuncture / Unknown 06/09/2024 7:13 PM ADMISSIONS CONSULTANT 06/09/2024 7:20 PM ADMISSIONS CONSULTANT Maliha Tilley MD LAB - CHEMISTRY [facility] [place] [address] [address], [place] [phone] * C-REACTIVE PROTEIN (06/09/2024 7:13 PM ADMISSIONS CONSULTANT) Pathologist [facility] C-Reactive Protein <0.5 <=0.5 mg/dL 06/09/2024 7:57 PM ADMISSIONS CONSULTANT [facility] Blood BLOOD SPECIMEN / Unknown Venipuncture / Unknown 06/09/2024 7:13 PM ADMISSIONS CONSULTANT 06/09/2024 7:24 PM ADMISSIONS CONSULTANT Maliha Tilley MD LAB - CHEMISTRY [facility] [place] [address] [address], [facility] [phone] * (ABNORMAL) ERYTHROCYTE SEDIMENTATION RATE (06/09/2024 7:13 PM ADMISSIONS CONSULTANT) Erythrocyte Sedimentation Rate Westergren 32(H) 0 - 20 MM/HR 06/09/2024 8:25 PM [facility] Blood BLOOD SPECIMEN / Unknown Venipuncture / Unknown 06/09/2024 7:13 PM ADMISSIONS CONSULTANT 06/09/2024 7:24 PM ADMISSIONS CONSULTANT Maliha Tilley MD LAB - HEMATOLOGY TASHA MOTTA Performing Organization Address [facility]/ZIP Co de Phone Number [address] [address], [facility] [phone] * CBC W AUTO DIFFERENTIAL (06/09/2024 7:13 PM ADMISSIONS CONSULTANT) WBC 6.6 4.0 - 10.7 x10E9/L 06/09/2024 7:29 PM [facility] RBC Count 4.91 3.90 - 5.20 x10E12/L 06/09/2024 7:29 PM [facility] Hemoglobin 13.7 11.9 - 15.8 g/dL [...] Unknown Venipuncture / Unknown 06/09/2024 7:13 PM ADMISSIONS CONSULTANT 06/09/2024 7:24 PM ADMISSIONS CONSULTANT Maliha Tilley MD LAB - HEMATOLOGY ORD ERABLES [facility] [address] [place] [address], [facility] [phone] * (ABNORMAL) COMPREHENSIVE METABOLIC PANEL (06/09/2024 7:13 PM [facility]) BUN 13 7 - 26 mg/dL 06/09/2024 [...] Unknown Venipuncture / Unknown 06/09/2024 7:13 PM ADMISSIONS CONSULTANT 06/09/2024 7:24 PM ADMISSIONS CONSULTANT Maliha Tilley MD LAB - CHEMISTRY [facility]ESSA TOMLIN Performing Organization Address [facility] Co de Phone Number [address] [address], [facility] [phone] * HCG BETA BLOOD QUANTITATIVE (06/09/2024 7:13 PM ADMISSIONS CONSULTANT) Beta-hCG Total Quantitative <3 mIU/mL 06/09/2024 7:57 PM [facility] Comment: HCG Numeric Result Interpretation: Non- Females: < 5 mIU/mL Post-Menopausal Females: < 7 mIU/mL This assay is cleared for use in the early detection of only. It is not approved for any other uses such as tumor marker screening, tumor marker monitoring, etc. and should not be used for any other purposes. Blood BLOOD SPECIMEN / Unknown Venipuncture / Unknown 06/09/2024 7:13 PM ADMISSIONS CONSULTANT 06/09/2024 7:24 PM ADMISSIONS CONSULTANT Maliha Tilley MD LAB - CHEMISTRY V[facility]ESSA TOMLIN Performing Organization Address [facility]/ZIP Co de Phone Number [address] [address], [facility] [phone] * B-Scan Anterior Immersion (06/09/2024 11:41 AM ADMISSIONS CONSULTANT) Anatomical Region Laterality Modality Head External-Camera Photography Narrative 06/09/2024 4:44 PM ADMISSIONS CONSULTANT Images from the original result were not included. B scan OD without RD or vitreous opacity Sandeep Hernandez MD OPHTHALMOLOGY SCHED ORD W PACS * FUNDUS PHOTO BOTH EYES (06/09/2024 11:41 AM ADMISSIONS CONSULTANT) Anatomical Region Laterality Modality Head External-Camera Photography Narrative 06/09/2024 4:44 PM ADMISSIONS CONSULTANT Images from the original result were not included. Fundus photos OS with disc edema and yamini's lines Sandeep Hernandez MD OPHTHALMOLOGY SCHED ORD W PACS * LUIS AUTO VISUAL FIELD EXTENDED (06/09/2024 9:31 AM ADMISSIONS CONSULTANT) Anatomical Region Laterality Modality Head External-Camera Photography Narrative 06/09/2024 4:44 PM ADMISSIONS CONSULTANT Images from the original result were not included. Sandeep Hernandez MD OPHTHALMOLOGY SCHED ORD W PACS * RETINAL ANALYSIS OCT (06/09/2024 9:31 AM ADMISSIONS CONSULTANT) Anatomical Region Laterality Modality Head External-Camera Photography Sandeep Hernandez MD OPHTHALMOLOGY SCHED ORD W PACS * EYE EXAM (06/01/2024) Anatomical Region Laterality Modality Other Narrative 06/01/2024 Ordered by an unspecified provider. Scanned Document SCANNING ONLY * HEMOGLOBIN A1C - POINT OF CARE (AMB) [facility] (03/29/2024 2:44 PM CDT) Hemoglobin A1c POCT 15 % [facility] [address] [facility] Blood BLOOD SPECIMEN / Unknown 03/29/2024 2:44 PM CDT Elder Garza MD LAB - POINT OF CARE ORDERABLES [facility] [address] [facility] [address] [facility], [place] [address], [facility] [phone] Care Teams Neonatal Specialist Relationship Specialty Start Date End Date Joesph Jacobo MD [address] [place], [place] [address] [address] PCP - General Internal Medicine 08/10/24
--- OUTSIDE RECORDS SUMMARY | 2024-09-19 23:15 | XMS_ITS | Encounter Summary ---
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) Carlie Jerry MD [address] [place] [phone] Referral ID Status Reason Start Date Expiration Date Visits Re quested Visits Authorized [id number] Closed 1 1 TH CARE SPECIALIST Reason for Visit * Reason Onset Date Comments Medication Problem 08/22/2024 Encounter Details Date Type Department Care Team (Late st Contact Info) Description 08/22/2024 Telephone [facility] - Endocrinology [address] [place] [address], [place] [phone] Carlie Jerry MD [address] [place] [phone] Medication Problem Social History Tobacco Use Types Packs/Day Years Used Date Smoking Tobacco: Unknown Sex and Gender Information Value Date Recorded Sex Assigned at Not on file Gender Identity Not on file Sexual Orientation Not on file documented as of this encounter Miscellaneous Notes * Telephone Encounter - Carlie Jerry MD - 08/22/2024 6:39 PM CST Pt called and she was very angry that her omnipod has not been refilled. I see that a prescription was sent by Dr Hair on 08/17/24 and not sure why she did not get it. I will ask Annabelle if its an issue of prior auth? I have resent the prescription, but it says prior auth required. I have told herto use back up insulin pen meanwhile while we find out what's the issue and why she has not gotten response from the clinic for her voice messages. Pt was very upset and angry. No acute sickness and no nausea vomiting and no DKA. No indication of coming to hospital. I asked her details as she said she is not feeling well. She has insulin pens and said she is frustrated because pod is not filled. Carlie Jerry MD Endocrinology Fellow Endocrinology, Diabetes & Metabolism [facility] TH CARE SPECIALIST documented in this encounter Plan of Treatment Upcoming Encounters Date Type Department Care Team (Late st Contact Info) Description 09/27/2024 9:45 AM HEALTH CARE SPECIALIST [facility] [address] [place] [phone] Buddy Fuller MD [address] [place] [address] DEPT [place] [phone] 10/04/2024 1:00 PM HEALTH CARE SPECIALIST Office Visit [facility] - Endocrinology [address] [place] [phone] Rosalia Hair MD [address] [facility] [place] [phone] 10/12/2024 2:15 PM CDT Office Visit [facility] - Ophthalmology [address] [place] [phone] Sandeep Hernandez MD [address] [place] [address] DEPT [place] [phone] 10/24/2024 2:00 PM CDT Office Visit [facility] - Ophthalmology [address] [place] [phone] Wong Ortiz MD [address] [place] [address] DEPT [place] [address] 02/07/2025 8:30 AM CDT Office Visit [facility] - Rheumatology [address] [place] [phone] Roni Castañeda MD [address] [place] [address] [place] [phone] documented as of this encounter Visit Diagnoses Diagnosis 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
[2024-09-19 23:33] LABS: Alveolar/Arterial O2 Gradient 623.7 mmHg; Base Excess ABG -4.6 mEq/l (+/-2.0); Fractional Inspired Oxygen 100 %; HCO3 ABG 17.4 mEq/l (22.0-26.0); Oxygen Content ABG 16.7 %vol (16.0-22.0); Oxygen Saturation ABG 94.2 % (95.0-100.0); Oxyhemoglobin 91.4 % THb (90.0-100.0); PCO2 ABG 24.7 mmHg (35.0-45.0); PO2 ABG 64.6 mmHg (80.0-100.0); PO2 FiO2 Ratio Arterial Blood 0.65 %; pH ABG 7.466 (7.350-7.450)
[2024-09-19 23:35] LABS: Device NON-REBREATHER MASK; Modified Allen's Test Pass; Site Drawn LEFT RADIAL
[2024-09-19] MEDS: SODIUM CHLORIDE 0.9% IV 3,000 ML 999 ML IV CONT (23:55)
[2024-09-19 23:57] LABS: Alanine Aminotransferase 15 U/L (6-35); Albumin Level 3.9 g/dL (3.5-5.1); Alkaline Phosphatase 147 U/L (38-126); Anion Gap 16 mmol/L (4-12); Aspartate Amino Transferase 26 U/L (14-36); Bilirubin,Total 0.5 mg/dL (0.2-1.3); Blood Urea Nitrogen 13 mg/dL (7-17); Calcium 8.9 mg/dL (8.4-10.2); Carbon Dioxide 19 mmol/L (22-30); Chloride 96 mmol/L (98-107); Estimated Glomerular Filt Rate > 60; Glucose 279 mg/dL (65-110); Lactic Acid Reflex 2.4 mmol/L (0.7-2.0); Potassium 3.8 mmol/L (3.4-5.0); Sodium 131 mmol/L (137-145)
[2024-09-19 23:58] LABS: Prothrombin Time 13.9 Seconds (11.1-14.7)
[2024-09-19 23:59] LABS: Partial Thromboplastin Time 36.1 Seconds (22.3-36.8)
[2024-09-20] VITALS (82 sets, daily range): BP systolic 71–146; BP diastolic 47–100; PULSE 108–141; RESP 18–40; TEMP 37.7–40.3; O2SAT 90–100; BMI 23.3
--- NOTE | 2024-09-20 | ECHO_ITS ---
Patient Info Name: Madeleine Mendoza Age: 39 years : 1985 Gender: Female Ht: 63 in Wt: 132 lbs BSA: 1.64 m2 HR: 112 bpm BP: 77 / 62 mmHg Heart Rhythm: Sinus Rhythm Technical Quality: Good Exam Date: 09/20/2024 11:01 AM Exam Location: Echo Lab Exam Room: ICU 3 Patient Status: Inpatient Admit Date: 09/20/2024 Staff Ordering Physician: Jeffry Vo MD Mercury Washer: Joanna De Oliveira RDCS Attending Provider: Annabelle Carrizales DO Exam Type: CA echo doppler color flow Study Info Indications - SHOCK Complete two-dimensional, color flow and Doppler transthoracic echocardiogram is performed. Summary 1. Left ventricular chamber dimension is normal. 2. Left ventricular systolic function is severely reduced, estimated at 25-30%. 3. The left ventricular diastolic function is grade I diastolic dysfunction. 4. Right ventricular chamber dimension is normal. 5. Right ventricular systolic function is reduced. 6. There is mild mitral valve regurgitation. 7. There is mild tricuspid valve regurgitation. Left Ventricle Left ventricular chamber dimension is normal. Left ventricular systolic function is severely reduced, estimated at 25-30%. There is no increased left ventricular wall thickness. The left ventricular diastolic function is grade I diastolic dysfunction. Right Ventricle Right ventricular chamber dimension is normal. Right ventricular systolic function is reduced. Left Atria Left atrial chamber dimension is normal. Right Atria Right atrial chamber dimension is normal. Atrial Septum Intact interatrial septum visualized by color flow imaging. Aortic Valve The aortic valve is not well visualized. There is no aortic valve regurgitation. Pulmonic Valve The pulmonic valve is not well visualized. Mitral Valve There is mild mitral valve regurgitation. The mitral valve annulus is mildly calcified. Tricuspid Valve There is mild tricuspid valve regurgitation. Pericardium/Pleural There is no pericardial effusion. Inferior Vena Cava Dilated inferior vena cava with <50% collapse upon inspiration consistent with elevated right atrial pressure, 15 mmHg. Aorta The aortic root size at the sinus of Valsalva is normal. Left Ventricular Outflow Tract Name Value Normal LVOT 2D LVOT Diameter 2.1 cm LVOT Doppler LVOT Peak Gradient 1 mmHg LVOT Mean Gradient 1 mmHg LVOT VTI 9 cm LVOT VTI/AV VTI Ratio 0.7 LVOT Stroke Volume 30 ml LVOT CO 3.3 l/min LVOT CI 2.0 l/min/m2 Mitral Valve Name Value Normal MV Doppler MV Peak Gradient 1 mmHg MV Mean Gradient 1 mmHg MV Decel O'Brien 318 cm/s2 MV PHT 50 ms MV Area (PHT) 4.4 cm2 4.0-5.0 MV Area (Cont Eq VTI) 2.8 cm2 MV Regurgitation Doppler MR Peak Gradient 72 mmHg MV Diastolic Function MV E Peak Velocity 55 cm/s MV A Peak Velocity 42 cm/s MV E/A 1.3 MV Decel Time 172 ms MV Annular TDI MV E/e' (Septal) 9.2 <=8.0 MV E/e' (Lateral) 8.3 <=8.0 MV E/e' (Average) 8.8 Tricuspid Valve Name Value Normal TV Regurgitation Doppler TR Peak Velocity 302 cm/s TR Peak Gradient 24 mmHg Estimated PAP/RSVP RA Pressure 15 mmHg <=5 PA Systolic Pressure 51 mmHg <36 RV Systolic Pressure 51 mmHg <36 Aortic Valve Name Value Normal AV Doppler AV Peak Velocity 94 cm/s AV Peak Gradient 4 mmHg AV Mean Gradient 2 mmHg AV VTI 13 cm AV Area (Cont Eq VTI) 2.3 cm2 >=3.0 AV Area (Cont Eq Michael) 2.2 cm2 AV Regurgitation 2D LVOT Area 3.4 cm2 Ventricles Name Value Normal LV Dimensions 2D/MM IVS Diastolic Thickness (2D) 0.6 cm 0.6-1.0 LVID Diastole (2D) 4.7 cm 3.8-5.2 LVIW Diastolic Thickness (2D) 0.7 cm 0.6-0.9 LVID Systole (2D) 3.9 cm 2.2-3.5 LVOT Diameter 2.1 cm LV Mass (2D Cubed) 93.18 g 67.00-162.00 LV Mass Index (2D Cubed) 57 g/m2 43-95 Relative Wall Thickness (2D) 0.29 LV Fractional Shortening/Ejection Fraction 2D/MM LV Fractional Shortening (2D) 16 % 27-45 LV EF (2D Teichyovanny) 35 % 54-74 LV Diastolic Volume (4C MOD) 93 ml LV EF (4C MOD) 39 % LV Diastolic Length (4C) 8.4 cm LV Systolic Length (4C) 7.6 cm LV Stroke Volume (4C MOD) 36 ml Atria Name Value Normal LA Dimensions LA Volume (4C A-L) 44 ml RA Dimensions RA Area (4C) 10.4 cm2 <=18.0 Report Signatures
[2024-09-20 00:14] LABS: Ethanol < 10 mg/dL (<10)
[2024-09-20 00:15] LABS: Basophils Percent Auto 0.5 % (0.2-1.2); Hematocrit 41.9 % (37.0-47.0); Hemoglobin 13.2 g/dL (12.0-15.0); Immature Granulocyte Absolute 0.01 K/mm3 (0.00-0.031); Immature Granulocyte Percent A 0.2 % (0-0.5); Lymphocytes Absolute Auto 0.34 K/mm3 (0.9-3.2); Lymphocytes Percent Auto 5.9 % (18.3-44.2); Mean Corpuscular HGB Conc 31.5 g/dl (32-36); Mean Corpuscular Volume 79.5 fl (80-100); Mean Platelet Volume 10.2 fl (7.4-10.4); Monocytes Absolute Auto 0.4 K/mm3 (0.1-0.6); Monocytes Percent Auto 6.1 % (2.6-8.5); Neutrophils Percent Auto 87.3 % (45.5-73.1); Platelet Count Result 307 k/mm3 (150-375); Red Blood Count 5.27 M/mm3 (4.2-5.4); Red Cell Distribution Width 15.3 % (11.5-14.5); White Blood Count 5.8 K/mm3 (4.5-10.0)
[2024-09-20 00:16] LABS: Magnesium 1.6 mg/dL (1.6-2.3); Phosphorus 3.9 mg/dL (2.5-4.5)
[2024-09-20 00:17] LABS: D Dimer 2.97 ug/mL (<0.48)
[2024-09-20 00:22] LABS: Influenza A QL RT-PCR Positive (Negative); Influenza B QL RT-PCR Negative (Negative); RSV RNA, RT-PCR Negative (Negative); SARS-CoV-2 RNA PCR Negative (Negative)
[2024-09-20 00:26] LABS: Troponin I < 0.012 ng/mL (0.000-0.034)
--- NOTE | 2024-09-20 00:37 | PC.NURSE ---
This RN went to pt to attempt tp get urine sample. RN described ot would be best to do a temp sensing dyer due to how sick pt is. RN described its important for intake and output accuracy along with fever tracking.
--- NOTE | 2024-09-20 00:40 | PC.NURSE ---
Pt is refusing catheter at this time.
[2024-09-20 01:02] LABS: Lipase 20 U/L (23-300)
[2024-09-20] MEDS: CEFEPIME 2 GM/NS 50 ML 2 GM/50 ML BAG IVPB ×3 (01:09→20:22)
[2024-09-20] MEDS: OSELTAMIVIR PHOSPHATE 75 MG CAPSULE PO (01:09)
--- NOTE | 2024-09-20 01:53 | ED_ITS ---
HPI - General Adult General Chief complaint: Weakness Stated complaint: FEELING WEAK AND FAINT; T103.5 Time Seen by Provider: 09/19/24 23:11 History of Present Illness HPI narrative: This is a 39 year female history of type diabetes and Willa's presenting for shortness of breath. Patient says she has been feeling weak and fevers for the last 5 days. Has been getting progressively worse. She denies nausea vomiting or diarrhea. Patient denies drug abuse. Related Data Home Medications ?Medication ?Instructions ?Recorded ?Confirmed ?Last Taken ?Type levothyroxine 100 mcg tablet 100 mcg PO QAM 08/06/24 08/06/24 Unknown History Allergies Allergy/AdvReac Type Severity Reaction Status Date / Time lactose AdvReac Diarrhea Verified 08/06/24 10:56 [facility] Past Medical History Medical History Diabetic ketoacidosis Hypothyroidism Latent autoimmune diabetes in adults, managed as type 1 (2020) 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), managed as type 1 Raynauds disease Viramontes syndrome Low vitamin B12 level Menorrhagia Anemia, unspecified Surgical History Surgical History History of tubal ligation Family History Family History Grandparent ALS (amyotrophic lateral sclerosis) Sibling Diabetes mellitus Father Hypertension Cerebrovascular accident Acute myocardial infarction Social History Social History Smoking packs per day: 0.5 Smoking cigarettes per day: 10.0 Years smoked: 20 Smoking pack-years: 10.00 Smoking status: Current every day smoker Tobacco type: cigarettes Second hand tobacco smoke exposure: No Alcohol intake: never Substance use: never Substance use type: does not use Do You Feel Safe in your Home?: Yes Lack of Transportation: No Lack of Food: Never True Current Housing: I Have Housing Concerned About Future Housing: No Difficulty Paying Gas/Electric Bills: No Difficulty Paying for Meds: No Currently Unemployed: No Education: Decline to Answer Difficulty w/ Childcare or Family Care: No Additional living arrangements comments: . Has 2 sons. 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. Spiritual care concerns: No Exam 2 Narrative: APPEARANCE: Patient is lethargic, laying limping bed, Head: atraumatic. EYES: EOMI, 2 mm equal reactive NOSE: Atraumatic NECK: Trachea midline RESPIRATORY: Tachypneic, hypoxic CARDIOVASCULAR: Tachycardic, no peripheral edema ABDOMINAL: Soft nontender no guarding rebound MUSCULOSKELETAl: No obvious deformities NEURO: Alert. Moving 4/4 extremities SKIN:: Multiple scabs and scars over the patient's face and hands. PSYCHIATRIC: Lethargic Course Vital Signs Vital signs: Vital Signs Temperature 99.9 F H 09/19/24 22:43 Pulse Rate 125 H 09/19/24 22:43 Respiratory Rate 37 H 09/19/24 22:43 Blood Pressure 129/83 09/19/24 22:43 Pulse Oximetry 84 L 09/19/24 22:43 Oxygen Delivery Room Air 09/19/24 22:43 Temperature 103.1 F H 09/20/24 02:32 Pulse Rate 132 H 09/20/24 02:32 Respiratory Rate 18 09/20/24 02:32 Blood Pressure 132/80 09/20/24 02:01 Pulse Oximetry 96 09/20/24 02:45 Oxygen Delivery Mechanical Ventilation 09/20/24 02:45 Oxygen Flow Rate 30 09/20/24 00:57 Fraction of Inspired Oxygen 100 09/20/24 02:15 Medical Decision Making [facility] Narrative Medical decision making narrative: -Course: 39-year-old female presenting ED profoundly hypoxic. Initially saturating mid 90s on 15 L non-rebreather. We attempted BiPAP the patient refused/ wouldn't tolerate it. She was then put on high-flow oxygen with maximal settings was saturated 94%. Full sepsis workup was performed. Patient positive for influenza A. CT PE showed diffuse bilateral pneumonia without evidence of PE. UDS negative. Fentanyl metabolites pending. Rest her laboratory studies remarkable. On re-evaluation the patient is lethargic, somnolent, and apathetic. She is on maximum settings for high-flow and will not tolerate BiPAP. Patient will be intubated for airway protection and hypoxic respiratory failure. Etomidate and Benedicto for induction. Dilaudid and Ativan for immediate sedation. Placed on a Versed and fentanyl drip. Initially Vent Settings: 350/18/100/5 w/ ABG 7.26/40/94.2/17.6 Resp increased 18->22. Patient started on cefepime, doxy and vancomycin to cover bacterial pneumonia. Tamiflu started for influenza. Given 30 cc/kilogram bolus. Rectal Tylenol for fevers. Still febrile at 1:04 a.m. was given a dose of Toradol. Patient be placed in the ICU for hypoxic resp failure secondary to PNA. -DDX includes but is not limited to: Pneumonia, PE, sepsis, influenza, ARDS, DKA -Co-morbidities complicating care: Type 1 diabetes, Willa's Vital Signs Vital Signs: Vital Signs Temperature 99.9 F H 09/19/24 22:43 Pulse Rate 125 H 09/19/24 22:43 Respiratory Rate 37 H 09/19/24 22:43 Blood Pressure 129/83 09/19/24 22:43 Pulse Oximetry 84 L 09/19/24 22:43 Oxygen Delivery Room Air 09/19/24 22:43 Temperature 103.1 F H 09/20/24 02:32 Pulse Rate 132 H 09/20/24 02:32 Respiratory Rate 18 09/20/24 02:32 Blood Pressure 132/80 09/20/24 02:01 Pulse Oximetry 96 09/20/24 02:45 Oxygen Delivery Mechanical Ventilation 09/20/24 02:45 Oxygen Flow Rate 30 09/20/24 00:57 Fraction of Inspired Oxygen 100 09/20/24 02:15 Lab Data 09/19/24 23:49 09/19/24 23:49 Labs: Lab Results 09/19/24 09/19/24 09/19/24 Range/Units 22:50 23:40 23:49 WBC 5.8 (4.5-10.0) K/mm3 RBC 5.27 (4.2-5.4) M/mm3 Hgb 13.2 (12.0-15.0) g/dL Hct 41.9 (37.0-47.0) % MCV 79.5 L (80-100) fl MCH 25.0 L (26-34) pg MCHC 31.5 L (32-36) g/dl RDW 15.3 H (11.5-14.5) % Plt Count 307 (150-375) k/mm3 MPV 10.2 (7.4-10.4) fl Immature Gran % (Auto) 0.2 (0-0.5) % Neut % (Auto) 87.3 H (45.5-73.1) % Lymph % (Auto) 5.9 L (18.3-44.2) % [place] % (Auto) 6.1 (2.6-8.5) % Eos % (Auto) 0.0 (0-4.4) % Baso % (Auto) 0.5 (0.2-1.2) % Lymph # (Auto) 0.34 L (0.9-3.2) K/mm3 [place] # (Auto) 0.4 (0.1-0.6) K/mm3 Eos # (Auto) 0.0 (0-0.3) K/mm3 Baso # (Auto) 0.0 (0.0-0.1) K/mm3 Abs Immat Gran (auto) 0.01 (0.00-0.031) K/mm3 Absolute Neuts (auto) 5.0 (1.3-6.7) K/mm3 Absolute Nucleated RBC 0.000 (0.0-0.012) K/mm3 Nucleated RBC % 0.0 (0.0-0.2) % PT 13.9 (11.1-14.7) Seconds INR 1.0 APTT 36.1 (22.3-36.8) Seconds D-Dimer 2.97 H (<0.48) ug/mL Sodium 131 L (137-145) mmol/L Potassium 3.8 (3.4-5.0) mmol/L Chloride 96 L (98-107) mmol/L Carbon Dioxide 19 L (22-30) mmol/L Anion Gap 16 H (4-12) mmol/L BUN 13 (7-17) mg/dL Creatinine 0.39 L (0.7-1.0) mg/dL Estim Creat Clear Calc Not Reportable Estimated GFR > 60 (59 - ) Glucose 279 H (65-110) mg/dL POC Capillary Glucose 260 H (65-105) mg/dl Lactic Acid 2.4 H (0.7-2.0) mmol/L Calcium 8.9 (8.4-10.2) mg/dL Phosphorus 3.9 (2.5-4.5) mg/dL Magnesium 1.6 (1.6-2.3) mg/dL Total Bilirubin 0.5 (0.2-1.3) mg/dL AST 26 (14-36) U/L ALT 15 (6-35) U/L Alkaline Phosphatase 147 H (38-126) U/L Troponin I < 0.012 (0.000-0.034) ng/mL Total Protein 8.0 (6.3-8.2) g/dL Albumin 3.9 (3.5-5.1) g/dL Lipase 20 L (23-300) U/L TSH (Reflex) 3.810 (0.465-4.68) uIU/mL Urine Color Urine Appearance Urine pH Ur Specific [place] Urine Protein Urine Glucose (UA) Urine Ketones Ur Blood (Man) Urine Nitrate Urine Bilirubin Urine Urobilinogen Leukocyte Esterase Rfl POC Urine HCG, Qual (Negative) Nasal MRSA (PCR) Urine Opiates Screen (Negative) Urine Methadone Screen (Negative) Fentanyl Urine Norfentanyl Ur Barbiturates Screen (Negative) Ur Phencyclidine Scrn (Negative) Ur Amphetamine Screen (Negative) U Benzodiazepines Scrn (Negative) Urine Cocaine Screen (Negative) U Cannabinoids Screen (Negative) Ethyl Alcohol < 10 (<10) mg/dL Influenza A (RT-PCR) Positive A (Negative) Influenza B (RT-PCR) Negative (Negative) RSV (RT-PCR) Negative (Negative) SARS-CoV-2 RNA (RT-PCR) Negative (Negative) 09/20/24 09/20/24 09/20/24 Range/Units 02:29 02:32 02:51 WBC (4.5-10.0) K/mm3 RBC (4.2-5.4) M/mm3 Hgb (12.0-15.0) g/dL Hct (37.0-47.0) % MCV (80-100) fl MCH (26-34) pg MCHC (32-36) g/dl RDW (11.5-14.5) % Plt Count (150-375) k/mm3 MPV (7.4-10.4) fl Immature Gran % (Auto) (0-0.5) % Neut % (Auto) (45.5-73.1) % Lymph % (Auto) (18.3-44.2) % [place] % (Auto) (2.6-8.5) % Eos % (Auto) (0-4.4) % Baso % (Auto) (0.2-1.2) % Lymph # (Auto) (0.9-3.2) K/mm3 [place] # (Auto) (0.1-0.6) K/mm3 Eos # (Auto) (0-0.3) K/mm3 Baso # (Auto) (0.0-0.1) K/mm3 Abs Immat Gran (auto) (0.00-0.031) K/mm3 Absolute Neuts (auto) (1.3-6.7) K/mm3 Absolute Nucleated RBC (0.0-0.012) K/mm3 Nucleated RBC % (0.0-0.2) % PT (11.1-14.7) Seconds INR APTT (22.3-36.8) Seconds D-Dimer (<0.48) ug/mL Sodium (137-145) mmol/L Potassium (3.4-5.0) mmol/L Chloride (98-107) mmol/L Carbon Dioxide (22-30) mmol/L Anion Gap (4-12) mmol/L BUN (7-17) mg/dL Creatinine (0.7-1.0) mg/dL Estim Creat Clear Calc Estimated GFR (59 - ) Glucose (65-110) mg/dL POC Capillary Glucose (65-105) mg/dl Lactic Acid (0.7-2.0) mmol/L Calcium (8.4-10.2) mg/dL Phosphorus (2.5-4.5) mg/dL Magnesium (1.6-2.3) mg/dL Total Bilirubin (0.2-1.3) mg/dL AST (14-36) U/L ALT (6-35) U/L Alkaline Phosphatase (38-126) U/L Troponin I Pending (0.000-0.034) ng/mL Total Protein (6.3-8.2) g/dL Albumin (3.5-5.1) g/dL Lipase (23-300) U/L TSH (Reflex) (0.465-4.68) uIU/mL Urine Color Pending Urine Appearance Pending Urine pH Pending Ur Specific [place] Pending Urine Protein Pending Urine Glucose (UA) Pending Urine Ketones Pending Ur Blood (Man) Pending Urine Nitrate Pending Urine Bilirubin Pending Urine Urobilinogen Pending Leukocyte Esterase Rfl Pending POC Urine HCG, Qual (Negative) Nasal MRSA (PCR) Pending Urine Opiates Screen Negative (Negative) Urine Methadone Screen Negative (Negative) Fentanyl Pending Urine Norfentanyl Pending Ur Barbiturates Screen Negative (Negative) Ur Phencyclidine Scrn Negative (Negative) Ur Amphetamine Screen Negative (Negative) U Benzodiazepines Scrn Negative (Negative) Urine Cocaine Screen Negative (Negative) U Cannabinoids Screen Negative (Negative) Ethyl Alcohol (<10) mg/dL Influenza A (RT-PCR) (Negative) Influenza B (RT-PCR) (Negative) RSV (RT-PCR) (Negative) SARS-CoV-2 RNA (RT-PCR) (Negative) 09/20/24 Range/Units 02:55 WBC (4.5-10.0) K/mm3 RBC (4.2-5.4) M/mm3 Hgb (12.0-15.0) g/dL Hct (37.0-47.0) % MCV (80-100) fl MCH (26-34) pg MCHC (32-36) g/dl RDW (11.5-14.5) % Plt Count (150-375) k/mm3 MPV (7.4-10.4) fl Immature Gran % (Auto) (0-0.5) % Neut % (Auto) (45.5-73.1) % Lymph % (Auto) (18.3-44.2) % [place] % (Auto) (2.6-8.5) % Eos % (Auto) (0-4.4) % Baso % (Auto) (0.2-1.2) % Lymph # (Auto) (0.9-3.2) K/mm3 [place] # (Auto) (0.1-0.6) K/mm3 Eos # (Auto) (0-0.3) K/mm3 Baso # (Auto) (0.0-0.1) K/mm3 Abs Immat Gran (auto) (0.00-0.031) K/mm3 Absolute Neuts (auto) (1.3-6.7) K/mm3 Absolute Nucleated RBC (0.0-0.012) K/mm3 Nucleated RBC % (0.0-0.2) % PT (11.1-14.7) Seconds INR APTT (22.3-36.8) Seconds D-Dimer (<0.48) ug/mL Sodium (137-145) mmol/L Potassium (3.4-5.0) mmol/L Chloride (98-107) mmol/L Carbon Dioxide (22-30) mmol/L Anion Gap (4-12) mmol/L BUN (7-17) mg/dL Creatinine (0.7-1.0) mg/dL Estim Creat Clear Calc Estimated GFR (59 - ) Glucose (65-110) mg/dL POC Capillary Glucose (65-105) mg/dl Lactic Acid (0.7-2.0) mmol/L Calcium (8.4-10.2) mg/dL Phosphorus (2.5-4.5) mg/dL Magnesium (1.6-2.3) mg/dL Total Bilirubin (0.2-1.3) mg/dL AST (14-36) U/L ALT (6-35) U/L Alkaline Phosphatase (38-126) U/L Troponin I (0.000-0.034) ng/mL Total Protein (6.3-8.2) g/dL Albumin (3.5-5.1) g/dL Lipase (23-300) U/L TSH (Reflex) (0.465-4.68) uIU/mL Urine Color Urine Appearance Urine pH Ur Specific [place] Urine Protein Urine Glucose (UA) Urine Ketones Ur Blood (Man) Urine Nitrate Urine Bilirubin Urine Urobilinogen Leukocyte Esterase Rfl POC Urine HCG, Qual Negative (Negative) Nasal MRSA (PCR) Urine Opiates Screen (Negative) Urine Methadone Screen (Negative) Fentanyl Urine Norfentanyl Ur Barbiturates Screen (Negative) Ur Phencyclidine Scrn (Negative) Ur Amphetamine Screen (Negative) U Benzodiazepines Scrn (Negative) Urine Cocaine Screen (Negative) U Cannabinoids Screen (Negative) Ethyl Alcohol (<10) mg/dL Influenza A (RT-PCR) (Negative) Influenza B (RT-PCR) (Negative) RSV (RT-PCR) (Negative) SARS-CoV-2 RNA (RT-PCR) (Negative) ABG Data ABG results: 09/19/24 23:18 Puncture Site Left radial ABG pH 7.466 H ABG pCO2 24.7 L ABG pO2 64.6 L ABG PO2/FiO2 Ratio 0.65 ABG HCO3 17.4 L ABG O2 Saturation 94.2 L ABG O2 Content 16.7 ABG Base Excess -4.6 A-a Gradient 623.7 Oxyhemoglobin 91.4 Total Hemoglobin 13.0 O2 Delivery Device Non-rebreather mask O2 Liters/Min 15.0 FiO2 100 Critical Care Time Critical Care Time Critical Care Time: Yes Total Critical Care Time: 35 Discharge Plan Discharge Clinical Impression: Hypoxic respiratory failure, Influenza, PNA (pneumonia) Patient Language: Arabic Prescriptions: No Action insulin lispro 100 unit/mL solution 90 unit subcut DAILY Qty: 10 0RF Rx Instructions: 90 units daily via continuous infusion device insulin lispro 100 unit/mL solution 90 unit subcut DAILY Qty: 10 1RF Rx Instructions: 90 units daily via continuous infusion (DME) Dexcom G6 Sensor Device See Rx Instructions .ROUTE .MEDSUPPLY Qty: 9 4RF Rx Instructions: Use to Monitor Glucose ; Change every 10 days (DME) Dexcom G6 Health Officer Misc See Rx Instructions .ROUTE .MEDSUPPLY Qty: 1 0RF Rx Instructions: Will use smartphone (DME) Omnipod 5 G6 Pods (Gen 5) Cartridge See Rx Instructions .ROUTE .MEDSUPPLY Qty: 45 3RF Rx Instructions: change every 48 hours (DME) Omnipod 5 G6 Intro Kit (Gen 5) Cartridge See Rx Instructions .ROUTE .MEDSUPPLY Qty: 1 0RF Rx Instructions: As directed Gvoke HypoPen 2-Pack 1 mg/0.2 mL auto-injector 1 mg subcut ONCE Qty: 0.4 4RF Rx Instructions: may repeat once after 15 minutes if no response levothyroxine 100 mcg tablet 100 mcg PO QAM Follow-up/Referrals: [facility] [Primary Care Provider] -
[2024-09-20] MEDS: MIDAZOLAM 100MG/NS 100ML(*CRX) 100 MG/100 ML BAG IV CONT ×2 (02:24→22:59)
[2024-09-20] MEDS: RAPID SEQUENCE INTUBATION KIT 1 EACH (02:25)
[2024-09-20] MEDS: FENTANYL 2,500MCG/NS250ML(*CRX 2,500 MCG/250 ML BAG 7.5 MCG IV CONT (02:25)
[2024-09-20] MEDS: HYDROmorphone HCL INJ (*CRX) 1 MG/ML SYR (02:28)
[2024-09-20] MEDS: LORazepam INJ (*CRX) 2 MG/ML VIAL (02:28)
--- NOTE | 2024-09-20 02:37 | PC.NURSE ---
0150: MD Senior verbally states we are going to intubate pt due to pt condition wrsening. Pt was placed on BIPAP and was unable to tolerate it. Respiratory therapist put pt on Airvo at the highest setting and pt was satting between 89-93%. MD Senior states he wants to intubate. 0150: RNs Maribel and Luann, MD Senior, Respiratory therapists, crash, cart, difficulty intubatin box, RSI kit, glidescope, and suction set up all at bedside. Pt vitals are 125 HR, 32 respirations, 89% on Airvo, 131/79 blood pressure. 0210: Time out performed by MD Senior. 0211: 20 of etimodate given from RSI kit. 0212: 100 of MINI given from RSI kit. 0214: Intubation performed by MD Senior and LIZZY Todd- 22 at the lip and color change occurred. 0218: Md Senior verbaly orders 1 of Dilaudid and 2 of ativan and was given for immediate sedation before starting Versed and fently drips. 0220: temp dyer done 0225: OG placed 55 at the lip. 0229: MD Senior verbally orders 650mg of tylenol suppository due to pt temperature being 102.4. Bed side preg test was negative. 0234: soft restraints were put on pt bilateral wrists.
[2024-09-20] MEDS: HYDROmorphone HCL INJ (*CRX) 1 MG/ML SYR IM (02:50)
[2024-09-20] MEDS: ACETAMINOPHEN 650 MG SUPPOSITORY (02:53)
[2024-09-20 02:54] LABS: Alveolar/Arterial O2 Gradient 578.8 mmHg; Base Excess ABG -8.8 mEq/l (+/-2.0); Fractional Inspired Oxygen 100 %; HCO3 ABG 17.6 mEq/l (22.0-26.0); Oxygen Content ABG 15.9 %vol (16.0-22.0); Oxygen Saturation ABG 96.2 % (95.0-100.0); Oxyhemoglobin 94.6 % THb (90.0-100.0); PO2 ABG 94.2 mmHg (80.0-100.0); PO2 FiO2 Ratio Arterial Blood 0.94 %; Total Hemoglobin 11.9 g/dL (12.0-18.0)
[2024-09-20 02:56] LABS: Amphetamine Screen Urine Negative (Negative); Barbiturate Screen Urine Negative (Negative); Benzodiazepines Screen Urine Negative (Negative); Cannabinoid Screen Urine Negative (Negative); Cocaine Screen Urine Negative (Negative); Methadone Screen Urine Negative (Negative); Opiate Screen Urine Negative (Negative); Phencyclidine Screen Urine Negative (Negative)
[2024-09-20 02:57] LABS: Add Urine Microscopic? YES; Appearance Urine Clear (Clear); Bacteria Urine None Seen /hpf; Bilirubin Urine Negative (Negative); Blood Urine Negative (Negative); Color Urine Yellow (Yellow); Glucose Urine UA 3+ mg/dL (Negative); Ketones Urine 3+ mg/dL (Negative); Leukocyte Esterase Ur Negative LEU/UL (Negative); Nitrate Urine Negative (Negative); Protein Urine 2+ mg/dL (Negative); RBC Urine 0-2 /hpf (0-2); Specific Grav Ur 1.034 (1.001-1.035); Squamous Epithelial Cell Urine None Seen /hpf (Few); Urobilinogen Urine 0.2 mg/dL (<2.0); WBC Urine 0-5 /hpf (0-3); pH Urine 5.5 (5.0-9.0)
[2024-09-20 02:57] LABS: BEDSIDEPREGUCG Negative (Negative)
[2024-09-20 02:58] LABS: Arterial Blood Gas PEEP 5 cmH2O; Arterial Blood Gas Vent Mode CMV; Arterial Blood Gas Ventilator rate 18 /MIN; Device VENTILATOR; Modified Allen's Test Pass; Site Drawn LEFT RADIAL; pH ABG 7.262 (7.350-7.450)
[2024-09-20 02:59] LABS: Arterial Blood Gas Tidal Volume 350 ml
[2024-09-20] MEDS: VANCOMYCIN 1,500 MG/NS 500 ML 1,500 MG/500 ML BAG 250 MG IVPB (03:03)
[2024-09-20 03:17] LABS: Troponin I < 0.012 ng/mL (0.000-0.034)
--- NOTE | 2024-09-20 03:23 | PM.IMHP ---
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 Patient had been taking NyQuil and Motrin at night. She reported fevers of 103.5 to nursing staff. On arrival she was lethargic drowsy and hot to touch with marked pallor. Her T-max in the ER was 104.6. She was initially placed on a non-rebreather with improvement her oxygen saturations to 92%. However shortly thereafter her work of breathing continued to increase in her oxygen saturations were dropping. An ABG was performed which demonstrated respiratory alkalosis with a PO2 of 64. She was placed on BiPAP but she would not tolerate the BiPAP and continue to pull it off. She was tried on high-flow nasal cannula but was only maintaining oxygen saturations in the low to mid 80s. She was subsequently intubated. She had an elevated D-dimer and had a CTA demonstrated bilateral multifocal pneumonia without evidence of pulmonary embolism. The patient was requiring a PEEP of 8 and 100% FiO2 to maintain oxygen saturations of 88-92%. The patient was started on empiric antibiotic therapy with cefepime doxycycline and vancomycin. She received 3 L isotonic IV fluid resuscitation (greater than 30 mL/kilos). Shortly after my evaluation the patient became acutely hypotensive. The entirety of the history and physical/HPI was obtained from review of past medical records and ER physician report as the patient was intubated prior to my evaluation. Review of Systems Review of Systems: ROS unobtainable: Yes unobtainable due to endotracheal tube PMFSH Past Medical History Medical History Diabetic ketoacidosis Hypothyroidism Latent autoimmune diabetes in adults, managed as type 1 (2020) 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), managed as type 1 Raynauds disease Viramontes syndrome Low vitamin B12 level Menorrhagia Anemia, unspecified Surgical History Surgical History History of tubal ligation Family History Family History Grandparent ALS (amyotrophic lateral sclerosis) Sibling Diabetes mellitus Father Hypertension Cerebrovascular accident Acute myocardial infarction Social History Social History Smoking packs per day: 0.5 Smoking cigarettes per day: 10.0 Years smoked: 20 Smoking pack-years: 10.00 Smoking status: Smoker, status unknown Tobacco type: cigarettes Second hand tobacco smoke exposure: No Alcohol intake: unknown Substance use: unknown Substance use type: unknown Do You Feel Safe in your Home?: Yes Lack of Transportation: No Lack of Food: Never True Current Housing: I Have Housing Concerned About Future Housing: No Difficulty Paying Gas/Electric Bills: No Difficulty Paying for Meds: No Currently Unemployed: No Education: Decline to Answer Difficulty w/ Childcare or Family Care: No Additional living arrangements comments: . Has 2 sons. 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. Spiritual care concerns: No Meds Home Medications and Allergies Home Medications ?Medication ?Instructions ?Recorded ?Confirmed ?Type blood-glucose meter,continuous #1 ea 02/11/23 08/06/24 Rx (Dexcom G6 Advertising Director) blood-glucose sensor (Dexcom G6 #9 02/11/23 08/06/24 Rx Sensor device) glucagon 1 mg/0.2 mL subcutaneous 1 mg (0.2 mL) subcut ONCE #0.4 mL 02/11/23 08/06/24 Rx auto-injector (Gvoke HypoPen 2-Pack) insulin pump cart,automated,BT #45 ea 02/11/23 08/06/24 Rx (Omnipod 5 G6 Pods (Gen 5) subcutaneous cartridge) insulin pump cartridge,automated #1 ea 02/11/23 08/06/24 Rx dose,BT with controller subcutaneous (Omnipod 5 G6 Intro Kit (Gen 5) subcutaneous cartridge with controller) insulin lispro 100 unit/mL 90 unit (0.9 mL) subcut DAILY #10 03/31/24 08/06/24 Rx subcutaneous solution mL insulin lispro 100 unit/mL 90 unit (0.9 mL) subcut DAILY #10 04/25/24 08/06/24 Rx subcutaneous solution mL levothyroxine 100 mcg tablet 100 mcg PO QAM 08/06/24 08/06/24 History Allergies Allergy/AdvReac Type Severity Reaction Status Date / Time lactose AdvReac Diarrhea Verified 08/06/24 10:56 Vital Signs Vital Signs - 24 hr 09/19/24 22:43 09/19/24 22:58 09/19/24 23:00 Temperature 99.9 F H Pulse Rate 125 H 125 H Respiratory Rate 37 H Blood Pressure 129/83 Pulse Oximetry 84 L 88 L Oxygen Delivery Room Air Nasal Cannula Oxygen Flow Rate 5 Fraction of Inspired Oxygen 09/19/24 23:01 09/19/24 23:02 09/19/24 23:10 Temperature Pulse Rate Respiratory Rate Blood Pressure Pulse Oximetry 89 L 92 94 Oxygen Delivery Nasal Cannula Non-Rebreather Mask Non-Rebreather Mask Oxygen Flow Rate 10 15 15 Fraction of Inspired Oxygen 09/19/24 23:22 09/19/24 23:25 09/19/24 23:30 Temperature Pulse Rate 126 H 115 H 122 H Respiratory Rate 35 H 38 H 28 H Blood Pressure Pulse Oximetry 96 Oxygen Delivery BiPAP Oxygen Flow Rate Fraction of Inspired Oxygen 09/19/24 23:50 09/19/24 23:56 09/19/24 23:56 Temperature Pulse Rate 115 H 122 H Respiratory Rate 35 H 45 H Blood Pressure 126/86 Pulse Oximetry 96 97 97 Oxygen Delivery BiPAP BiPAP Oxygen Flow Rate Fraction of Inspired Oxygen 09/19/24 23:56 09/20/24 00:15 09/20/24 00:37 Temperature Pulse Rate 121 H 114 H Respiratory Rate 44 H 28 H Blood Pressure 141/90 H Pulse Oximetry 97 100 100 Oxygen Delivery High Flow Therapy with Na Oxygen Flow Rate 35 Fraction of Inspired Oxygen 09/20/24 00:44 09/20/24 00:46 09/20/24 00:57 Temperature Pulse Rate 115 H Respiratory Rate 35 H Blood Pressure 135/92 H Pulse Oximetry 99 99 98 Oxygen Delivery High Flow Therapy with Na High Flow Therapy with Na Oxygen Flow Rate 15 30 Fraction of Inspired Oxygen 09/20/24 01:01 09/20/24 01:34 09/20/24 01:46 Temperature Pulse Rate 117 H 121 H 125 H Respiratory Rate 28 H 23 H 23 H Blood Pressure 146/92 H 127/75 131/79 Pulse Oximetry 95 92 Oxygen Delivery Oxygen Flow Rate Fraction of Inspired Oxygen 09/20/24 02:00 09/20/24 02:01 09/20/24 02:15 Temperature Pulse Rate 127 H 125 H 132 H Respiratory Rate 31 H 26 H Blood Pressure 132/80 Pulse Oximetry 91 93 96 Oxygen Delivery Mechanical Ventilation Oxygen Flow Rate Fraction of Inspired Oxygen 100 09/20/24 02:23 09/20/24 02:24 09/20/24 02:25 Temperature 100.1 F H Pulse Rate 131 H 131 H 131 H Respiratory Rate 18 18 18 Blood Pressure Pulse Oximetry 97 Oxygen Delivery Oxygen Flow Rate Fraction of Inspired Oxygen 09/20/24 02:32 09/20/24 02:45 Temperature 103.1 F H Pulse Rate 132 H Respiratory Rate 18 Blood Pressure Pulse Oximetry 97 96 Oxygen Delivery Mechanical Ventilation Oxygen Flow Rate Fraction of Inspired Oxygen Exam Narrative: Weight 59.9 kg BMI 23.4 Const: Other: Acutely ill-appearing, appears much older than stated age, intubated and sedated HENMT: Other: Head is normocephalic, patient has granulation tissue at the top of the bridge of her nose and between her eyebrows with associated scabbing, mucous membranes are dry, ET tube is present in measuring 24 cm at the lip, OG tube present with bilious drainage Eyes: Other: Pupils are equal and sluggishly reactive Neck: Other: Patient has significant right anterior cervical lymphadenopathy down the majority of the lymphnode chain, no JVD Resp: Other: Clear to auscultation bilaterally, patient is riding the vent Cardio: Other: Sinus tachycardia, 2+ bilateral radial pedal pulses GI: Other: Soft, nondistended, positive bowel sounds, no organomegaly, continuous glucose monitor sensor in the right lower abdomen : Other: Leach catheter in place with dark yellow urine present Skin: Other: Patient has scab just below the umbilicus and to the left, she also has granulation tissue between the eyebrows and the of the bridge of the nose with associated scabbing she has thickened calluses to the tips of her fingers, she has scooping of the nail beds of most of her digits, she has multiple areas of scarring to her chin, she has a tattoo to the left dorsal forearm Neuro: Other: Patient has a gag reflex and withdrawal to painful stimuli, pupils are equal and sluggishly reactive Extrem: Other: No clubbing, cyanosis or edema Psych: Other: Unable to assess due to clinical condition H&P: Results Labs Labs: Laboratory Tests 09/19/24 23:49 09/19/24 23:49 09/19/24 09/19/24 09/19/24 22:50 23:18 23:40 WBC RBC Hgb Hct MCV MCH MCHC RDW Plt Count MPV Immature Gran % (Auto) Neut % (Auto) Lymph % (Auto) [place] % (Auto) Eos % (Auto) Baso % (Auto) Lymph # (Auto) [place] # (Auto) Eos # (Auto) Baso # (Auto) Abs Immat Gran (auto) Absolute Neuts (auto) Absolute Nucleated RBC Nucleated RBC % PT INR APTT D-Dimer Puncture Site Left radial ABG pH 7.466 H ABG pCO2 24.7 L ABG pO2 64.6 L ABG PO2/FiO2 Ratio 0.65 ABG HCO3 17.4 L ABG O2 Saturation 94.2 L ABG O2 Content 16.7 ABG Base Excess -4.6 A-a Gradient 623.7 Oxyhemoglobin 91.4 Total Hemoglobin 13.0 O2 Delivery Device Non-rebreather mask O2 Liters/Min 15.0 Minute Volume Vent Rate Vent Mode FiO2 100 Tidal Volume PEEP Peak Inspir Pressure Pressure Support Sodium Potassium Chloride Carbon Dioxide Anion Gap BUN Creatinine Estim Creat Clear Calc Estimated GFR Glucose POC Capillary Glucose 260 H Lactic Acid Calcium Phosphorus Magnesium Total Bilirubin AST ALT Alkaline Phosphatase Troponin I Total Protein Albumin Lipase TSH (Reflex) Urine Color Urine Appearance Urine pH Ur Specific [place] Urine Protein Urine Glucose (UA) Urine Ketones Ur Blood (Man) Urine Nitrate Urine Bilirubin Urine Urobilinogen Leukocyte Esterase Rfl Urine RBC Urine WBC Ur Squamous Epith Cells Urine Bacteria Urine Casts POC Urine HCG, Qual Nasal MRSA (PCR) Urine Opiates Screen Urine Methadone Screen Fentanyl Urine Norfentanyl Ur Barbiturates Screen Ur Phencyclidine Scrn Ur Amphetamine Screen U Benzodiazepines Scrn Urine Cocaine Screen U Cannabinoids Screen Ethyl Alcohol Influenza A (RT-PCR) Positive A Influenza B (RT-PCR) Negative RSV (RT-PCR) Negative SARS-CoV-2 RNA (RT-PCR) Negative 09/19/24 09/20/24 09/20/24 23:49 02:29 02:32 WBC 5.8 RBC 5.27 Hgb 13.2 Hct 41.9 MCV 79.5 L MCH 25.0 L MCHC 31.5 L RDW 15.3 H Plt Count 307 MPV 10.2 Immature Gran % (Auto) 0.2 Neut % (Auto) 87.3 H Lymph % (Auto) 5.9 L [place] % (Auto) 6.1 Eos % (Auto) 0.0 Baso % (Auto) 0.5 Lymph # (Auto) 0.34 L [place] # (Auto) 0.4 Eos # (Auto) 0.0 Baso # (Auto) 0.0 Abs Immat Gran (auto) 0.01 Absolute Neuts (auto) 5.0 Absolute Nucleated RBC 0.000 Nucleated RBC % 0.0 PT 13.9 INR 1.0 APTT 36.1 D-Dimer 2.97 H Puncture Site ABG pH ABG pCO2 ABG pO2 ABG PO2/FiO2 Ratio ABG HCO3 ABG O2 Saturation ABG O2 Content ABG Base Excess A-a Gradient Oxyhemoglobin Total Hemoglobin O2 Delivery Device O2 Liters/Min Minute Volume Vent Rate Vent Mode FiO2 Tidal Volume PEEP Peak Inspir Pressure Pressure Support Sodium 131 L Potassium 3.8 Chloride 96 L Carbon Dioxide 19 L Anion Gap 16 H BUN 13 Creatinine 0.39 L Estim Creat Clear Calc Not Reportable Estimated GFR > 60 Glucose 279 H POC Capillary Glucose Lactic Acid 2.4 H Calcium 8.9 Phosphorus 3.9 Magnesium 1.6 Total Bilirubin 0.5 AST 26 ALT 15 Alkaline Phosphatase 147 H Troponin I < 0.012 Total Protein 8.0 Albumin 3.9 Lipase 20 L TSH (Reflex) 3.810 Urine Color Yellow Urine Appearance Clear Urine pH 5.5 Ur Specific [place] 1.034 Urine Protein 2+ H Urine Glucose (UA) 3+ H Urine Ketones 3+ H Ur Blood (Man) Negative Urine Nitrate Negative Urine Bilirubin Negative Urine Urobilinogen 0.2 Leukocyte Esterase Rfl Negative Urine RBC 0-2 Urine WBC 0-5 Ur Squamous Epith Cells None seen Urine Bacteria None seen Urine Casts 6-10 POC Urine HCG, Qual Nasal MRSA (PCR) Pending Urine Opiates Screen Negative Urine Methadone Screen Negative Fentanyl Pending Urine Norfentanyl Pending Ur Barbiturates Screen Negative Ur Phencyclidine Scrn Negative Ur Amphetamine Screen Negative U Benzodiazepines Scrn Negative Urine Cocaine Screen Negative U Cannabinoids Screen Negative Ethyl Alcohol < 10 Influenza A (RT-PCR) Influenza B (RT-PCR) RSV (RT-PCR) SARS-CoV-2 RNA (RT-PCR) 09/20/24 09/20/24 09/20/24 02:41 02:51 02:55 WBC RBC Hgb Hct MCV MCH MCHC RDW Plt Count MPV Immature Gran % (Auto) Neut % (Auto) Lymph % (Auto) [place] % (Auto) Eos % (Auto) Baso % (Auto) Lymph # (Auto) [place] # (Auto) Eos # (Auto) Baso # (Auto) Abs Immat Gran (auto) Absolute Neuts (auto) Absolute Nucleated RBC Nucleated RBC % PT INR APTT D-Dimer Puncture Site Left radial ABG pH 7.262 L* ABG pCO2 40.0 ABG pO2 94.2 ABG PO2/FiO2 Ratio 0.94 ABG HCO3 17.6 L ABG O2 Saturation 96.2 ABG O2 Content 15.9 L ABG Base Excess -8.8 A-a Gradient 578.8 Oxyhemoglobin 94.6 Total Hemoglobin 11.9 L O2 Delivery Device Ventilator O2 Liters/Min Not Reportable Minute Volume Not Reportable Vent Rate 18 Vent Mode Cmv FiO2 100 Tidal Volume 350 PEEP 5 Peak Inspir Pressure Not Reportable Pressure Support Not Reportable Sodium Potassium Chloride Carbon Dioxide Anion Gap BUN Creatinine Estim Creat Clear Calc Estimated GFR Glucose POC Capillary Glucose Lactic Acid Calcium Phosphorus Magnesium Total Bilirubin AST ALT Alkaline Phosphatase Troponin I < 0.012 Total Protein Albumin Lipase TSH (Reflex) Urine Color Urine Appearance Urine pH Ur Specific [place] Urine Protein Urine Glucose (UA) Urine Ketones Ur Blood (Man) Urine Nitrate Urine Bilirubin Urine Urobilinogen Leukocyte Esterase Rfl Urine RBC Urine WBC Ur Squamous Epith Cells Urine Bacteria Urine Casts POC Urine HCG, Qual Negative Nasal MRSA (PCR) Urine Opiates Screen Urine Methadone Screen Fentanyl Urine Norfentanyl Ur Barbiturates Screen Ur Phencyclidine Scrn Ur Amphetamine Screen U Benzodiazepines Scrn Urine Cocaine Screen U Cannabinoids Screen Ethyl Alcohol Influenza A (RT-PCR) Influenza B (RT-PCR) RSV (RT-PCR) SARS-CoV-2 RNA (RT-PCR) Chest x-ray: Reviewed ET to 1.8 cm from tirso. Order placed by ER provider to pull ET tube back to cm. He diffuse bilateral opacifications noted CT of chest was obtain and personally review demonstrating diffuse multifocal pneumonia. Preliminary radiologic read reviewed. Official radiologic returned interpretation pending Assessment and Plan Assessment and plan (1) Septic shock: Code(s): A41.9 - Sepsis, unspecified organism; R65.21 - Severe sepsis with septic shock Status: Acute (2) Sepsis: Qualifiers: Sepsis type: sepsis due to unspecified organism Sepsis acute organ dysfunction status: with acute organ dysfunction Severe sepsis acute organ dysfunction type: acute respiratory failure Acute respiratory failure type: with hypoxia Severe sepsis shock status: with septic shock Qualified Code(s): A41.9 - Sepsis, unspecified organism; R65.21 - Severe sepsis with septic shock; J96.01 - Acute respiratory failure with hypoxia Code(s): A41.9 - Sepsis, unspecified organism Status: Acute (3) Acute hypoxic respiratory failure: Code(s): J96.01 - Acute respiratory failure with hypoxia Status: Acute (4) Influenza A with pneumonia: Code(s): J09.X1 - Influenza due to identified novel influenza A virus with pneumonia Status: Acute (5) Endotracheally intubated: Code(s): Z97.8 - Presence of other specified devices Status: Acute (6) SUPRIYA (latent autoimmune diabetes mellitus in adults): Code(s): E13.9 - Other specified diabetes mellitus without complications Status: Acute Plan Patient presented with sepsis due to influenza pneumonia. Given duration of symptoms and imaging finding she likely has a secondary bacterial pneumonia. Will blood cultures have been obtained and are pending. Patient was started on broad-spectrum antibiotic therapy with cefepime, doxycycline and vancomycin. Patient is requiring significant respiratory support with ventilator a.c. CMV tidal volume 350, peep of 8, FiO2 is now been weaned down to 80% with ventilator rate of 22. Will continue to wean oxygen as tolerated. Will continue sedation with fentanyl and Versed for goal RASS of 0--[address]. [address] patient on scheduled nebulizer treatments with DuoNebs. Patient's blood pressures remained low despite 30 mL/kilos bolus. She has subsequently started on Levophed and vasopressin to maintain systolic blood pressure is 90 or greater and maps of 65-70. Patient has autoimmune diabetes treated as type 1 diabetes. She does have hyperglycemia but is not currently in DKA. Will check Accu-Cheks q.4 hours and provide moderate dose sliding scale insulin. However, hyperglycemia continues the patient may benefit from insulin drip for better glycemic control. Will repeat CBC and electrolyte panel in a.m.. 45 minute spent in critical care activities. Due to a high probability of clinically significant, life threatening deterioration, the patient required my highest level of preparedness to intervene emergently and I personally spent this critical care time directly and personally managing the patient. This critical care time included obtaining a history; examining the patient; pulse oximetry; ordering and review of studies; arranging urgent treatment with development of a management plan; evaluation of patient's response to treatment; frequent reassessment; and discussions with other providers. It was exclusive of separately billable procedures and treating other patients and teaching time. Please see Assessment and Plan section and the rest of the note for further information on patient assessment and treatment.. Quality VTE Prophylaxis VTE prophylaxis: pharmacologic ordered (Lovenox 40 mg subQ daily.) Hospitalist [facility] Advance Care Plan I have confirmed that the patient's Advanced Care Plan is present, code status is documented, or surrogate decision maker is listed in patient medical record.: Yes Medication Reconciliation The patient is not eligible for med reconciliation; the patient is in a emergent medical situation where delaying treatment would jeopardize the patients health.: No
[2024-09-20] MEDS: KETOROLAC 15 MG/ML VIAL (*BKC) IV PUSH (03:35)
--- NOTE | 2024-09-20 04:08 | PC.NURSE ---
Ice packs placed on pt d/t fever per MD verbal order.
[2024-09-20 04:09] LABS: Glucose Point of Care 276 mg/dl (65-105)
[2024-09-20 04:18] LABS: MRSA (PCR) DETECTED (NOT DETECTE)
--- NOTE | 2024-09-20 04:31 | PC.NURSE ---
MD Senior verbally states to push 5 mg of versed IV at this time. RN pulled 5 mg from RSI kit.
[2024-09-20] MEDS: NOREPINEPHRINE 8 MG/D5W 250 ML 8 MG/250 ML BAG 9.38 MG IV CONT (04:43)
--- NOTE | 2024-09-20 04:45 | PC.NURSE ---
Per Dr Senior, titrate to MAP of 65, increasing by 5mcg to obtain.
[2024-09-20] MEDS: IBUPROFEN IV 600 MG in SODIUM CHLORIDE 0.9% IV 100 ML 208 MG IVPB (05:09)
--- NOTE | 2024-09-20 05:30 | PC.NURSE ---
Levophed at 15mcg/min from ER
[2024-09-20] MEDS: DOXYCYCLINE 100 MG/NS 100 ML 100 MG/100 ML BAG IVPB ×3 (05:47→20:22)
[2024-09-20] MEDS: VASOPRESSIN INJ 100 UNITS in DEXTROSE 5% 95 ML IV CONT (06:05)
[2024-09-20] MEDS: SODIUM CHLORIDE 0.9% IV 1,000 ML 125 ML IV CONT ×3 (06:06→22:59)
--- NOTE | 2024-09-20 06:17 | ADMGEN ---
This patient, Madeleine Mendoza, was admitted to Intensive Care Unit-3. Patient/family oriented to hospital policies and general routines including ID bracelet, bed and alarms, visiting hours, pain management, procedures, bathroom and other care routines, personal items, smoking policy, room service/diet, and visiting hours. Information on how to activate the Rapid Response Team has been discussed. Patient/Family are encouraged to report perceived risks to care and to ask questions if they do not understand what they are told or what they should do.
[2024-09-20] MEDS: INSULIN ASPART (*BKC) 100 UNITS/ML SUB-Q ×5 (06:53→20:21)
[2024-09-20 06:57] LABS: Glucose Point of Care 225 mg/dl (65-105)
--- NOTE | 2024-09-20 08:35 | PC.NURSE ---
Updated mother, Geneva, on plan of care and patient condition.
[2024-09-20 09:10] LABS: Hematocrit 35.7 % (37.0-47.0); Hemoglobin 11.1 g/dL (12.0-15.0); Mean Corpuscular HGB Conc 31.1 g/dl (32-36); Mean Corpuscular Hemoglobin 25.1 pg (26-34); Mean Corpuscular Volume 80.8 fl (80-100); Mean Platelet Volume 10.5 fl (7.4-10.4); Platelet Count Result 287 k/mm3 (150-375); Red Blood Count 4.42 M/mm3 (4.2-5.4); Red Cell Distribution Width 15.4 % (11.5-14.5); White Blood Count 2.1 K/mm3 (4.5-10.0)
[2024-09-20 09:19] LABS: Alanine Aminotransferase 12 U/L (6-35); Albumin Level 2.5 g/dL (3.5-5.1); Alkaline Phosphatase 77 U/L (38-126); Anion Gap 9 mmol/L (4-12); Aspartate Amino Transferase 24 U/L (14-36); Bilirubin,Total 0.4 mg/dL (0.2-1.3); Blood Urea Nitrogen 20 mg/dL (7-17); Calcium 7.1 mg/dL (8.4-10.2); Carbon Dioxide 19 mmol/L (22-30); Chloride 106 mmol/L (98-107); Estimated CRCL calculation 49 ml/min; Estimated Glomerular Filt Rate 54; Glucose 234 mg/dL (65-110); Potassium 3.7 mmol/L (3.4-5.0); Sodium 134 mmol/L (137-145)
[2024-09-20] MEDS: SODIUM BICARBONATE 8.4% 50 MEQ/50 ML SYRINGE IV PUSH (09:21)
[2024-09-20] MEDS: PANTOPRAZOLE SODIUM IV 40 MG VIAL IV PUSH (09:24)
[2024-09-20] MEDS: ALBUMIN HUMAN 5% 25 GM/500 ML BTL IV CONT (09:25)
[2024-09-20] MEDS: ENOXAPARIN 40 MG/0.4 ML SYRINGE SUB-Q (09:28)
--- NOTE | 2024-09-20 09:49 | P.CONIN_ITS ---
Assessment and Plan Assessment and plan (1) Acute hypoxic respiratory failure: Code(s): J96.01 - Acute respiratory failure with hypoxia Status: Acute Assessment and Plan: Acute respiratory failure secondary to influenza A and pneumonia CTA chest Bilateral multifocal pneumonia, most extensively involving the lower lobes. No pulmonary embolus seen. Patient now intubated and on mechanical ventilation ABG reviewed and will increase PEEP to 10 Continue sedation with Versed and fentanyl Bronchodilators (2) Uncontrolled diabetes mellitus: Status: Acute Assessment and Plan: SSI and Lantus npo (3) Septic shock: Code(s): A41.9 - Sepsis, unspecified organism; R65.21 - Severe sepsis with septic shock Status: Acute Assessment and Plan: Septic shock secondary to pneumonia Patient has received 3 L crystalloid. Continue maintenance IV fluids Will give 500 mL 5% albumin bolus and start 25% albumin for next 24 hours Continue Levophed vasopressin and add epinephrine infusion Stress dose hydrocortisone Calcium replace IV bicarb for acidosis Blood and sputum cultures Impaired vancomycin, cefepime and doxycycline (4) PNA (pneumonia): Code(s): J18.9 - Pneumonia, unspecified organism Status: Acute Assessment and Plan: See above (5) Hypothyroidism: Code(s): E03.9 - Hypothyroidism, unspecified Status: Acute Assessment and Plan: Continue levothyroxine Check TSH (6) Influenza: Code(s): J11.1 - Influenza due to unidentified influenza virus with other respiratory manifestations Status: Acute Assessment and Plan: Isolation Tamiflu (7) SCAR (acute kidney injury): Code(s): N17.9 - Acute kidney failure, unspecified Status: Acute Assessment and Plan: Increase in creatinine. Likely secondary to sepsis and shock Check CK Check renal ultrasound Monitor urine output electrolytes and creatinine Plan DVT prophylaxis -Lovenox Stress ulcer prophylaxis -Protonix Nutrition - NPO Code Status - Full Code Total Critical Care Time - 40 minutes Due to a high probability of clinically significant, life threatening deterioration, the patient required my highest level of preparedness to intervene emergently and I personally spent this critical care time directly and personally managing the patient. This critical care time included obtaining a history; examining the patient; pulse oximetry; ordering and review of studies; arranging urgent treatment with development of a management plan; evaluation of patient's response to treatment; frequent reassessment; and discussions with other providers. It was exclusive of separately billable procedures and treating other patients and teaching time. 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 On arrival she was lethargic drowsy and hot to touch with marked pallor. Her T-max in the ER was 104.6. She was initially placed on a non-rebreather with improvement her oxygen saturations to 92%. However shortly thereafter her work of breathing continued to increase in her oxygen saturations were dropping. An ABG was performed which demonstrated respiratory alkalosis with a PO2 of 64. She was placed on BiPAP but she would not tolerate the BiPAP and continue to pull it off. She was intubated in the ER. Post intubation patient became hypotensive and was given IV fluid bolus and then started on vasopressor. A right subclavian central venous catheter was placed. Workup in the ER showed. She tested positive for influenza. She had an elevated D-dimer and had a CTA demonstrated bilateral multifocal pneumonia without evidence of pulmonary embolism. Shet was started on empiric antibiotic therapy with cefepime doxycycline and vancomycin. She received 3 L isotonic IV fluid resuscitation (greater than 30 mL/kilos). Patient is intubated and sedated unable to provide any meaningful history. History was obtained from chart review and physician sign-out. Review of Systems 2 Review of Systems: All systems reviewed & are unremarkable except as noted in HPI and below ROS unobtainable: Yes unobtainable due to endotracheal tube, unobtainable due to medical condition and unobtainable due to mental status PMFSH Past Medical History Medical History Diabetic ketoacidosis Hypothyroidism Latent autoimmune diabetes in adults, managed as type 1 (2020) 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), managed as type 1 Raynauds disease Viramontes syndrome Low vitamin B12 level Menorrhagia Anemia, unspecified Surgical History Surgical History History of tubal ligation Family History Family History Grandparent ALS (amyotrophic lateral sclerosis) Sibling Diabetes mellitus Father Hypertension Cerebrovascular accident Acute myocardial infarction Social History Social History Smoking packs per day: 0.5 Smoking cigarettes per day: 10.0 Years smoked: 20 Smoking pack-years: 10.00 Smoking status: Smoker, status unknown Tobacco type: cigarettes Second hand tobacco smoke exposure: No Alcohol intake: unknown Substance use: unknown Substance use type: unknown Do You Feel Safe in your Home?: Yes Lack of Transportation: No Lack of Food: Never True Current Housing: I Have Housing Concerned About Future Housing: No Difficulty Paying Gas/Electric Bills: No Difficulty Paying for Meds: No Currently Unemployed: No Education: Decline to Answer Difficulty w/ Childcare or Family Care: No Additional living arrangements comments: . Has 2 sons. 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. Spiritual care concerns: No Meds Home Medications and Allergies Home Medications ?Medication ?Instructions ?Recorded ?Confirmed ?Type blood-glucose meter,continuous #1 02/11/23 08/06/24 Rx (Dexcom G6 Padded Products Inspector Trimmer) blood-glucose sensor (Dexcom G6 #9 02/11/23 08/06/24 Rx Sensor device) glucagon 1 mg/0.2 mL subcutaneous 1 mg (0.2 mL) subcut ONCE #0.4 mL 02/11/23 08/06/24 Rx auto-injector (Gvoke HypoPen 2-Pack) insulin pump cart,automated,BT #45 02/11/23 08/06/24 Rx (Omnipod 5 G6 Pods (Gen 5) subcutaneous cartridge) insulin pump cartridge,automated #1 02/11/23 08/06/24 Rx dose,BT with controller subcutaneous (Omnipod 5 G6 Intro Kit (Gen 5) subcutaneous cartridge with controller) insulin lispro 100 unit/mL 90 unit (0.9 mL) subcut DAILY #10 03/31/24 08/06/24 Rx subcutaneous solution mL insulin lispro 100 unit/mL 90 unit (0.9 mL) subcut DAILY #10 04/25/24 08/06/24 Rx subcutaneous solution mL levothyroxine 100 mcg tablet 100 mcg PO QAM 08/06/24 08/06/24 History Allergies Allergy/AdvReac Type Severity Reaction Status Date / Time lactose AdvReac Diarrhea Verified 08/06/24 10:56 Vital Signs Vital Signs - 24 hr 09/19/24 22:43 09/19/24 22:58 09/19/24 23:00 Temperature 37.7 C H Pulse Rate 125 H 125 H Respiratory Rate 37 H Blood Pressure 129/83 Pulse Oximetry 84 L 88 L Oxygen Delivery Room Air Nasal Cannula Oxygen Flow Rate 5 Fraction of Inspired Oxygen 09/19/24 23:01 09/19/24 23:02 09/19/24 23:10 Temperature Pulse Rate Respiratory Rate Blood Pressure Pulse Oximetry 89 L 92 94 Oxygen Delivery Nasal Cannula Non-Rebreather Mask Non-Rebreather Mask Oxygen Flow Rate 10 15 15 Fraction of Inspired Oxygen 09/19/24 23:22 09/19/24 23:25 09/19/24 23:30 Temperature Pulse Rate 126 H 115 H 122 H Respiratory Rate 35 H 40 H 28 H Blood Pressure Pulse Oximetry 96 Oxygen Delivery BiPAP Oxygen Flow Rate Fraction of Inspired Oxygen 09/19/24 23:50 09/19/24 23:56 09/19/24 23:56 Temperature Pulse Rate 115 H 122 H Respiratory Rate 35 H 45 H Blood Pressure 126/86 Pulse Oximetry 96 97 97 Oxygen Delivery BiPAP BiPAP Oxygen Flow Rate Fraction of Inspired Oxygen 09/19/24 23:56 09/20/24 00:15 09/20/24 00:15 Temperature Pulse Rate 121 H Respiratory Rate 44 H 29 H Blood Pressure Pulse Oximetry 97 100 95 Oxygen Delivery High Flow Therapy with Na High Flow Therapy with Na Oxygen Flow Rate 35 35 Fraction of Inspired Oxygen 95 09/20/24 00:37 09/20/24 00:44 09/20/24 00:46 Temperature Pulse Rate 114 H 115 H Respiratory Rate 28 H 35 H Blood Pressure 141/90 H 135/92 H Pulse Oximetry 100 99 99 Oxygen Delivery High Flow Therapy with Na Oxygen Flow Rate 15 Fraction of Inspired Oxygen 09/20/24 00:57 09/20/24 01:01 09/20/24 01:34 Temperature Pulse Rate 117 H 121 H Respiratory Rate 28 H 23 H Blood Pressure 146/92 H 127/75 Pulse Oximetry 98 95 Oxygen Delivery High Flow Therapy with Na Oxygen Flow Rate 30 Fraction of Inspired Oxygen 09/20/24 01:46 09/20/24 02:00 09/20/24 02:01 Temperature Pulse Rate 125 H 127 H 125 H Respiratory Rate 23 H 31 H 26 H Blood Pressure 131/79 132/80 Pulse Oximetry 92 91 93 Oxygen Delivery Oxygen Flow Rate Fraction of Inspired Oxygen 09/20/24 02:15 09/20/24 02:23 09/20/24 02:24 Temperature 37.8 C H Pulse Rate 132 H 131 H 131 H Respiratory Rate 18 18 Blood Pressure Pulse Oximetry 96 97 Oxygen Delivery Mechanical Ventilation Oxygen Flow Rate Fraction of Inspired Oxygen 100 09/20/24 02:25 09/20/24 02:32 09/20/24 02:45 Temperature 39.5 C H Pulse Rate 131 H 132 H Respiratory Rate 18 18 Blood Pressure Pulse Oximetry 97 96 Oxygen Delivery Mechanical Ventilation Oxygen Flow Rate Fraction of Inspired Oxygen 09/20/24 03:16 09/20/24 03:31 09/20/24 03:40 Temperature 40.2 C H 40.3 C H Pulse Rate 141 H 139 H 139 H Respiratory Rate 25 H 23 H Blood Pressure 131/81 113/74 Pulse Oximetry 92 91 94 Oxygen Delivery Mechanical Ventilation Oxygen Flow Rate Fraction of Inspired Oxygen 80 09/20/24 03:46 09/20/24 04:01 09/20/24 04:09 Temperature 40.3 C H 40.2 C H 38.7 C H Pulse Rate 137 H 135 H Respiratory Rate 24 H 24 H Blood Pressure 107/67 92/59 L Pulse Oximetry 94 Oxygen Delivery Oxygen Flow Rate Fraction of Inspired Oxygen 09/20/24 04:15 09/20/24 04:30 09/20/24 04:31 Temperature 40.1 C H Pulse Rate 131 H 128 H 128 H Respiratory Rate 23 H 20 20 Blood Pressure 85/54 L Pulse Oximetry Oxygen Delivery Oxygen Flow Rate Fraction of Inspired Oxygen 09/20/24 04:43 09/20/24 05:36 09/20/24 05:44 Temperature Pulse Rate 125 H 125 H Respiratory Rate 26 H Blood Pressure 80/57 L 87/55 L Pulse Oximetry 91 100 Oxygen Delivery Mechanical Ventilation Oxygen Flow Rate Fraction of Inspired Oxygen 80 09/20/24 05:45 09/20/24 05:45 09/20/24 05:47 Temperature 39.7 C H 39.7 C H Pulse Rate 125 H 122 H Respiratory Rate 20 Blood Pressure 79/52 L 79/52 L Pulse Oximetry 90 Oxygen Delivery Oxygen Flow Rate Fraction of Inspired Oxygen 09/20/24 06:00 09/20/24 06:00 09/20/24 06:00 Temperature Pulse Rate 125 H 130 H 118 H Respiratory Rate 30 H 20 Blood Pressure Pulse Oximetry Oxygen Delivery Oxygen Flow Rate Fraction of Inspired Oxygen 09/20/24 06:00 09/20/24 06:05 09/20/24 06:09 Temperature 39.7 C H 39.6 C H Pulse Rate 121 H 121 H Respiratory Rate 25 H Blood Pressure 82/57 L 82/57 L Pulse Oximetry 91 Oxygen Delivery Oxygen Flow Rate Fraction of Inspired Oxygen 09/20/24 06:15 09/20/24 06:30 09/20/24 07:00 Temperature 39.4 C H 39.2 C H Pulse Rate 119 H 116 H 110 H Respiratory Rate 24 H 25 H Blood Pressure 80/55 L 90/60 L 77/62 L Pulse Oximetry 91 93 Oxygen Delivery Oxygen Flow Rate Fraction of Inspired Oxygen 09/20/24 07:30 09/20/24 07:45 09/20/24 08:00 Temperature Pulse Rate 110 H 110 H 111 H Respiratory Rate 22 H 22 H Blood Pressure 77/62 L Pulse Oximetry Oxygen Delivery Oxygen Flow Rate Fraction of Inspired Oxygen 09/20/24 08:00 09/20/24 08:00 09/20/24 08:00 Temperature Pulse Rate 111 H 111 H 111 H Respiratory Rate 22 H 22 H Blood Pressure 77/62 L Pulse Oximetry Oxygen Delivery Oxygen Flow Rate Fraction of Inspired Oxygen 09/20/24 08:00 09/20/24 08:00 09/20/24 08:00 Temperature 38.2 C H Pulse Rate 111 H 111 H Respiratory Rate 22 H 22 H Blood Pressure 77/62 L Pulse Oximetry 92 92 Oxygen Delivery Mechanical Ventilation Oxygen Flow Rate Fraction of Inspired Oxygen 100 100 09/20/24 08:00 09/20/24 08:00 09/20/24 08:20 Temperature Pulse Rate 111 H 112 H 114 H Respiratory Rate 22 H Blood Pressure Pulse Oximetry Oxygen Delivery Oxygen Flow Rate Fraction of Inspired Oxygen 09/20/24 08:20 09/20/24 09:14 Temperature Pulse Rate 114 H 112 H Respiratory Rate 22 H Blood Pressure Pulse Oximetry 94 Oxygen Delivery Mechanical Ventilation Oxygen Flow Rate Fraction of Inspired Oxygen 100 Exam 2 Narrative: General: Pt is sedated, intubated and on mechanical ventilation Lungs/Chest: Trachea central Coarse BS B/L, No crackles or wheezing. Cardiac: RRR. Normal S1 S2. No murmurs Circulation: Pedal pulses are weak but palpable, feet are cold there is a mottling of skin of both hands and feet Abdomen: Decreased bowel sounds. Soft. NT. ND. Extremities: No clubbing, cyanosis or edema. Warm : Leach in place Neurologic: Unable to assess due to sedation. Moves all 4 extremities spontaneously and to painful stimuli. PERRL Results Labs 09/19/24 23:49 09/20/24 09:00 Labs: Impressions Chest CTA 09/20/24 05:30 Impression: Bilateral multifocal pneumonia, most extensively involving the lower lobes. No pulmonary embolus seen. Chest X-Ray 09/20/24 05:32 Impression: Extensive patchy bilateral airspace consolidation, compatible with bilateral pneumonia. Chest X-Ray 09/20/24 05:34 Impression: Support tubes in place, as above. Extensive bilateral airspace consolidation, more confluent than on prior exam. Correlate for worsening pneumonia or pulmonary edema. Abdomen X-Ray 09/20/24 05:35 Impression: NG tube in satisfactory position. Chest X-Ray 09/20/24 05:36 Impression: Support tubes in place, as above. Stable extensive bilateral pulmonary airspace disease. Possible small pleural effusion. Chest X-Ray 09/20/24 05:45 Impression: Support tubes, as above. Stable extensive pulmonary airspace disease. Correlate for pulmonary edema versus pneumonia. Probable small left pleural effusion. Short CBC 09/19/24 Range/Units 23:49 WBC 5.8 (4.5-10.0) K/mm3 Hgb 13.2 (12.0-15.0) g/dL Hct 41.9 (37.0-47.0) % Plt Count 307 (150-375) k/mm3 BMP 09/19/24 09/20/24 23:49 09:00 Sodium 131 L 134 L Potassium 3.8 3.7 Chloride 96 L 106 Carbon Dioxide 19 L 19 L BUN 13 20 H Creatinine 0.39 L 1.12 H Glucose 279 H 234 H Calcium 8.9 7.1 L Cardiac Enzymes 09/19/24 09/20/24 Range/Units 23:49 02:51 Troponin I < 0.012 < 0.012 (0.000-0.034) ng/mL Liver Function 09/19/24 09/20/24 Range/Units 23:49 09:00 Total Bilirubin 0.5 0.4 (0.2-1.3) mg/dL AST 26 24 (14-36) U/L ALT 15 12 (6-35) U/L Alkaline Phosphatase 147 H 77 (38-126) U/L Albumin 3.9 2.5 L (3.5-5.1) g/dL Urine 09/20/24 Range/Units 02:29 Urine Color Yellow (Yellow) Urine Appearance Clear (Clear) Urine pH 5.5 (5.0-9.0) Ur Specific [place] 1.034 (1.001-1.035) Urine Protein 2+ H (Negative) mg/dL Urine Glucose (UA) 3+ H (Negative) mg/dL ECG Interpretation: Sinus tachycardia, nonspecific ST T-wave changes Quality VTE Prophylaxis VTE prophylaxis: pharmacologic ordered Hospitalist MIPS Advance Care Plan I have confirmed that the patient's Advanced Care Plan is present, code status is documented, or surrogate decision maker is listed in patient medical record.: Yes Medication Reconciliation I have utilized all available resources to obtain, update and review the patients current medications (includes all prescriptions, OTC, herbals, cannabis, and nutritional supplements).: Yes
[2024-09-20 10:01] LABS: Band Neutrophils Percent 36 % (0-6); Basophils Absolute Manual 0.02 K/mm3 (0.0-0.1); Basophils Percent Manual 1 % (0-1); Eosinophils Absolute Manual 0.02 K/mm3 (0.02-0.50); Eosinophils Percent Manual 1 % (0-4); Lymphocytes Absolute Manual 0.56 K/mm3 (1.1-4.5); Metamyelocytes Percent 2 %; Monocytes Absolute Manual 0.14 K/mm3 (0.1-0.90); Monocytes Percent Manual 7 % (3-9); Neutrophils Percent Manual 26 % (46-73); Total Cells Counted 100
[2024-09-20 10:02] LABS: Platelet Estimate Adequate (Adequate)
[2024-09-20 10:04] LABS: Burr Cells 1+; Large Platelets Present; Schistocytes None Seen
[2024-09-20] MEDS: EPINEPHrine INJ 1 MG in DEXTROSE 5% IN WATER 250 ML 15.06 MG IV CONT (10:05)
[2024-09-20] MEDS: INSULIN GLARGINE (*BKC) 100 UNITS/ML 20 UNITS SUB-Q (10:09)
[2024-09-20] MEDS: NOREPINEPHRINE 8 MG/D5W 250 ML 8 MG/250 ML BAG 56.25 MG IV CONT ×3 (10:27→19:52)
[2024-09-20] MEDS: CALCIUM GLUC 2,000 MG/NS 100ML 2,000 MG/100 ML BAG 100 MG IVPB (10:27)
[2024-09-20] MEDS: POTASSIUM BICARBONATE 25 MEQ TABEF 50 MEQ FEED TUBE (11:25)
[2024-09-20 11:29] LABS: Creatine Kinase 31 U/L (30-135)
[2024-09-20 11:40] LABS: Procalcitonin 80.6 ng/mL
[2024-09-20] MEDS: ALBUMIN HUMAN 25% 25 GM/100 ML 100 ML IVPB ×3 (12:28→23:52)
[2024-09-20 12:43] LABS: Creatinine Urine 201.4 mg/dL
[2024-09-20 12:48] LABS: Glucose Point of Care 233 mg/dl (65-105)
[2024-09-20 12:51] LABS: Sodium Urine Random 7 meq/L
[2024-09-20] MEDS: IPRATROPIUM 0.5 MG/ALBUTEROL SULFATE 2.5 MG AMPUL.NEB 3 ML INHALATION ×2 (13:39→19:42)
[2024-09-20] MEDS: VANCOMYCIN 1,250 MG/NS 250 ML 1,250 MG/250 ML BAG 166.67 MG IVPB (13:57)
[2024-09-20] MEDS: HYDROCORTISONE SODIUM SUCCINATE 100 MG/2 ML VIAL IV PUSH ×2 (13:57→22:02)
[2024-09-20] MEDS: CENTRAL LINE FLUSH 10 ML IV PUSH ×2 (14:00→22:03)
[2024-09-20] MEDS: EPINEPHrine INJ 1 MG in DEXTROSE 5% IN WATER 250 ML 60.24 MG IV CONT ×2 (15:08→19:22)
[2024-09-20] MEDS: OSELTAMIVIR PHOSPHATE 30 MG CAPSULE PO ×2 (15:12→20:22)
[2024-09-20 17:18] LABS: Glucose Point of Care 348 mg/dl (65-105)
[2024-09-20 20:17] LABS: Glucose Point of Care 341 mg/dl (65-105)
[2024-09-20] MEDS: ACETAMINOPHEN ELIXIR 325 MG/10.15 ML UDC 650 MG PO (20:22)
[2024-09-20] MEDS: MINERAL OIL/WHITE PETROLATUM OINTMENT 1 APPLIC EACH EYE (20:22)
[2024-09-20] MEDS: FENTANYL 2,500MCG/NS250ML(*CRX 2,500 MCG/250 ML BAG 10 MCG IV CONT (22:58)
[2024-09-20] MEDS: NOREPINEPHRINE 8 MG/D5W 250 ML 8 MG/250 ML BAG 54.38 MG IV CONT (23:51)
[2024-09-20 23:57] LABS: Glucose Point of Care 357 mg/dl (65-105)
[2024-09-21] VITALS (63 sets, daily range): BP systolic 86–128; BP diastolic 49–87; PULSE 90–114; RESP 12–28; TEMP 37.3–39.2; O2SAT 94–100
[2024-09-21] MEDS: IPRATROPIUM 0.5 MG/ALBUTEROL SULFATE 2.5 MG AMPUL.NEB 3 ML INHALATION ×4 (02:26→21:00)
[2024-09-21] MEDS: NOREPINEPHRINE 8 MG/D5W 250 ML 8 MG/250 ML BAG 30 MG IV CONT (04:29)
[2024-09-21] MEDS: INSULIN ASPART (*BKC) 100 UNITS/ML SUB-Q ×6 (04:37→23:31)
[2024-09-21 04:38] LABS: Glucose Point of Care 296 mg/dl (65-105)
[2024-09-21 04:56] LABS: Hematocrit 29.7 % (37.0-47.0); Hemoglobin 9.3 g/dL (12.0-15.0); Mean Corpuscular HGB Conc 31.3 g/dl (32-36); Mean Corpuscular Hemoglobin 25.3 pg (26-34); Mean Corpuscular Volume 80.7 fl (80-100); Mean Platelet Volume 10.8 fl (7.4-10.4); Platelet Count Result 177 k/mm3 (150-375); Red Blood Count 3.68 M/mm3 (4.2-5.4); Red Cell Distribution Width 15.8 % (11.5-14.5); White Blood Count 3.5 K/mm3 (4.5-10.0)
[2024-09-21 05:23] LABS: Alanine Aminotransferase 722 U/L (6-35); Albumin Level 3.2 g/dL (3.5-5.1); Alkaline Phosphatase 62 U/L (38-126); Anion Gap 14 mmol/L (4-12); Bilirubin,Total 0.6 mg/dL (0.2-1.3); Blood Urea Nitrogen 23 mg/dL (7-17); Carbon Dioxide 15 mmol/L (22-30); Chloride 106 mmol/L (98-107); Estimated CRCL calculation 64 ml/min; Estimated Glomerular Filt Rate > 60; Glucose 285 mg/dL (65-110); Magnesium 1.3 mg/dL (1.6-2.3); Potassium 4.4 mmol/L (3.4-5.0); Sodium 135 mmol/L (137-145)
[2024-09-21 05:26] LABS: Vancomycin Random 9.7 ug/mL (10-20)
[2024-09-21 05:26] LABS: Alveolar/Arterial O2 Gradient 415.8 mmHg; Base Excess ABG -10.6 mEq/l (+/-2.0); Carboxyhemoglobin 0.5 % THb (0-2.0); Fractional Inspired Oxygen 80 %; HCO3 ABG 15.1 mEq/l (22.0-26.0); Methemoglobin ABG 0.3 %THb (0-1.5); Oxygen Content ABG 13.8 %vol (16.0-22.0); Oxyhemoglobin 97.3 % THb (90.0-100.0); Reduced Hemoglobin 1.9 %THb (0-5.0); Total Hemoglobin 9.9 g/dL (12.0-18.0)
[2024-09-21 05:28] LABS: Device VENTILATOR; Site Drawn LEFT BRACHIAL
[2024-09-21 05:30] LABS: Arterial Blood Gas PEEP 10 cmH2O; Arterial Blood Gas Tidal Volume 350 ml; Arterial Blood Gas Vent Mode CMV; Arterial Blood Gas Ventilator rate 22 /MIN; pH ABG 7.279 (7.350-7.450)
[2024-09-21] MEDS: ALBUMIN HUMAN 25% 25 GM/100 ML 100 ML IVPB (05:35)
[2024-09-21] MEDS: HYDROCORTISONE SODIUM SUCCINATE 100 MG/2 ML VIAL IV PUSH ×3 (05:35→23:31)
[2024-09-21] MEDS: CENTRAL LINE FLUSH 10 ML IV PUSH ×3 (05:35→23:31)
[2024-09-21] MEDS: LEVOTHYROXINE SODIUM 100 MCG TABLET FEED TUBE (05:35)
[2024-09-21 06:15] LABS: Aspartate Amino Transferase 4720 U/L (14-36)
[2024-09-21] MEDS: SODIUM CHLORIDE 0.9% IV 1,000 ML 125 ML IV CONT (07:12)
[2024-09-21] MEDS: VANCOMYCIN 1,250 MG/NS 250 ML 1,250 MG/250 ML BAG 166.67 MG IVPB (07:23)
[2024-09-21 08:17] LABS: Glucose Point of Care 261 mg/dl (65-105)
[2024-09-21] MEDS: INSULIN GLARGINE (*BKC) 100 UNITS/ML 30 UNITS SUB-Q (09:11)
[2024-09-21] MEDS: ENOXAPARIN 40 MG/0.4 ML SYRINGE SUB-Q (09:11)
[2024-09-21] MEDS: CEFEPIME 2 GM/NS 50 ML 2 GM/50 ML BAG IVPB ×2 (09:11→20:16)
[2024-09-21] MEDS: PANTOPRAZOLE SODIUM IV 40 MG VIAL IV PUSH (09:13)
[2024-09-21] MEDS: MAGNESIUM SULF 2 GM/WATER 50ML 2 GM/50 ML BAG IVPB (09:14)
[2024-09-21] MEDS: DOXYCYCLINE 100 MG/NS 100 ML 100 MG/100 ML BAG IVPB ×2 (09:14→20:16)
[2024-09-21] MEDS: CALCIUM GLUC 2,000 MG/NS 100ML 2,000 MG/100 ML BAG 100 MG IVPB (09:14)
[2024-09-21] MEDS: SODIUM BICARBONATE TAB 650 MG TABLET FEED TUBE ×2 (09:15→17:37)
--- NOTE | 2024-09-21 10:54 | WPDINTPN ---
Progress Note: A&P Assessment and Plan (1) Acute hypoxic respiratory failure: Code(s): J96.01 - Acute respiratory failure with hypoxia Status: Acute Assessment and Plan: Acute respiratory failure secondary to influenza A and pneumonia CTA chest Bilateral multifocal pneumonia, most extensively involving the lower lobes. No pulmonary embolus seen. Patient now intubated and on mechanical ventilation ABG reviewed. Peep is at 10 FiO2 50%. Continue to wean FiO2 Continue sedation with Versed and fentanyl Bronchodilators (2) Uncontrolled diabetes mellitus: Status: Acute Assessment and Plan: SSI Increase Lantus Start tube feeds (3) Septic shock: Code(s): A41.9 - Sepsis, unspecified organism; R65.21 - Severe sepsis with septic shock Status: Acute Assessment and Plan: Septic shock secondary to pneumonia Hold further IV fluids Off pressor Can Stress dose hydrocortisone Bicarb per tube for acidosis Blood and sputum cultures Continue empiric vancomycin, cefepime and doxycycline (4) PNA (pneumonia): Code(s): J18.9 - Pneumonia, unspecified organism Status: Acute Assessment and Plan: See above (5) Hypothyroidism: Code(s): E03.9 - Hypothyroidism, unspecified Status: Acute Assessment and Plan: Continue levothyroxine Normal TSH (6) Influenza: Code(s): J11.1 - Influenza due to unidentified influenza virus with other respiratory manifestations Status: Acute Assessment and Plan: Isolation Tamiflu (7) SCAR (acute kidney injury): Code(s): N17.9 - Acute kidney failure, unspecified Status: Acute Assessment and Plan: Increase in creatinine. Likely secondary to sepsis and shock Normal CK Check renal ultrasound Improved with IV fluids. Improvement in creatinine and urine output. Monitor urine output electrolytes and creatinine Plan DVT prophylaxis -Lovenox Stress ulcer prophylaxis -Protonix Nutrition -start tube feed Code Status - Full Code Total Critical Care Time -35 minutes Due to a high probability of clinically significant, life threatening deterioration, the patient required my highest level of preparedness to intervene emergently and I personally spent this critical care time directly and personally managing the patient. This critical care time included obtaining a history; examining the patient; pulse oximetry; ordering and review of studies; arranging urgent treatment with development of a management plan; evaluation of patient's response to treatment; frequent reassessment; and discussions with other providers. It was exclusive of separately billable procedures and treating other patients and teaching time. Please see Assessment and Plan section and the rest of the note for further information on patient assessment and treatment Subjective Date/time seen: 09/21/24 Overnight events reviewed. febrile Continues to be on mechanical ventilation 50% FiO2 and 10 of PEEP Off vasopressors Continues to be sedated with for said in [place] Improved urine output npo Other Vitals acceptable Review of Systems Review of Systems: ROS unobtainable: Yes unobtainable due to endotracheal tube, unobtainable due to medical condition and unobtainable due to mental status Exam Narrative: General: Pt is sedated, intubated and on mechanical ventilation Lungs/Chest: Trachea central Coarse BS B/L, No crackles or wheezing. Cardiac: RRR. Normal S1 S2. No murmurs Circulation: Pedal pulses are weak but palpable, feet are much warmer today and the mottling of the skin of both hands and feet appears improved as compared to yesterday Abdomen: Decreased bowel sounds. Soft. NT. ND. Extremities: No clubbing, cyanosis or edema. Warm : Leach in place Neurologic: Unable to assess due to sedation. Moves all 4 extremities spontaneously and to painful stimuli. PERRL Objective Data Vital Signs Vital Signs: Vital Signs - 24 hr 09/20/24 11:00 09/20/24 11:28 09/20/24 12:00 Temperature Pulse Rate 113 H 111 H 114 H Respiratory Rate Blood Pressure 91/66 L 86/65 L Pulse Oximetry 94 Oxygen Delivery Mechanical Ventilation Fraction of Inspired Oxygen 100 09/20/24 12:00 09/20/24 12:00 09/20/24 12:00 Temperature Pulse Rate 114 H 114 H 114 H Respiratory Rate 22 H Blood Pressure 86/65 L 86/65 L Pulse Oximetry Oxygen Delivery Fraction of Inspired Oxygen 09/20/24 12:00 09/20/24 12:00 09/20/24 12:00 Temperature Pulse Rate 114 H 113 H Respiratory Rate 22 H Blood Pressure Pulse Oximetry Oxygen Delivery Fraction of Inspired Oxygen 100 09/20/24 12:00 09/20/24 12:00 09/20/24 13:41 Temperature 37.7 C H Pulse Rate 114 H 114 H 110 H Respiratory Rate 22 H 22 H Blood Pressure 86/65 L Pulse Oximetry 92 92 96 Oxygen Delivery Mechanical Ventilation Mechanical Ventilation Fraction of Inspired Oxygen 100 100 09/20/24 13:41 09/20/24 13:45 09/20/24 14:00 Temperature Pulse Rate 110 H 112 H 114 H Respiratory Rate 26 H Blood Pressure 76/66 L 99/80 L Pulse Oximetry Oxygen Delivery Fraction of Inspired Oxygen 09/20/24 14:00 09/20/24 14:00 09/20/24 14:00 Temperature Pulse Rate 114 H 114 H 114 H Respiratory Rate 22 H Blood Pressure 99/80 L 99/80 L Pulse Oximetry Oxygen Delivery Fraction of Inspired Oxygen 09/20/24 14:00 09/20/24 14:00 09/20/24 14:00 Temperature 38.0 C H Pulse Rate 114 H 114 H 114 H Respiratory Rate 22 H 22 H Blood Pressure 99/80 L Pulse Oximetry 97 Oxygen Delivery Fraction of Inspired Oxygen 09/20/24 15:08 09/20/24 15:08 09/20/24 15:09 Temperature Pulse Rate 112 H 112 H 112 H Respiratory Rate Blood Pressure 95/70 L 95/70 L 95/70 L Pulse Oximetry Oxygen Delivery Fraction of Inspired Oxygen 09/20/24 15:09 09/20/24 16:00 09/20/24 16:00 Temperature Pulse Rate 112 H 111 H 111 H Respiratory Rate Blood Pressure 95/70 L 94/79 L 94/79 L Pulse Oximetry Oxygen Delivery Fraction of Inspired Oxygen 09/20/24 16:00 09/20/24 16:00 09/20/24 16:00 Temperature Pulse Rate 111 H 111 H 111 H Respiratory Rate 22 H 22 H Blood Pressure 94/79 L Pulse Oximetry Oxygen Delivery Fraction of Inspired Oxygen 09/20/24 16:00 09/20/24 16:00 09/20/24 16:00 Temperature 38.6 C H Pulse Rate 111 H 111 H Respiratory Rate 22 H 22 H Blood Pressure 94/79 L Pulse Oximetry 97 97 Oxygen Delivery Mechanical Ventilation Fraction of Inspired Oxygen 100 100 09/20/24 16:00 09/20/24 17:01 09/20/24 18:00 Temperature Pulse Rate 109 H 108 H 112 H Respiratory Rate Blood Pressure Pulse Oximetry 98 Oxygen Delivery Mechanical Ventilation Fraction of Inspired Oxygen 80 09/20/24 18:00 09/20/24 18:00 09/20/24 18:00 Temperature 38.7 C H Pulse Rate 112 H 112 H 112 H Respiratory Rate 22 H Blood Pressure 95/82 L 95/82 L 95/82 L Pulse Oximetry 97 Oxygen Delivery Fraction of Inspired Oxygen 09/20/24 18:00 09/20/24 18:00 09/20/24 18:00 Temperature Pulse Rate 112 H 112 H 112 H Respiratory Rate 22 H 22 H Blood Pressure 95/82 L Pulse Oximetry Oxygen Delivery Fraction of Inspired Oxygen 09/20/24 19:18 09/20/24 19:22 09/20/24 19:42 Temperature Pulse Rate 116 H 116 H 117 H Respiratory Rate Blood Pressure 125/100 H 125/100 H Pulse Oximetry 97 Oxygen Delivery Mechanical Ventilation Fraction of Inspired Oxygen 80 09/20/24 19:42 09/20/24 19:52 09/20/24 19:53 Temperature Pulse Rate 117 H 118 H 119 H Respiratory Rate 36 H Blood Pressure 120/98 H 120/98 H Pulse Oximetry Oxygen Delivery Fraction of Inspired Oxygen 09/20/24 19:54 09/20/24 19:55 09/20/24 19:55 Temperature Pulse Rate 119 H 119 H 119 H Respiratory Rate 40 H 40 H Blood Pressure 120/98 H Pulse Oximetry Oxygen Delivery Fraction of Inspired Oxygen 09/20/24 20:00 09/20/24 20:00 09/20/24 20:00 Temperature Pulse Rate 119 H 121 H Respiratory Rate 40 H Blood Pressure Pulse Oximetry 93 Oxygen Delivery Mechanical Ventilation Fraction of Inspired Oxygen 80 80 09/20/24 20:14 09/20/24 20:22 09/20/24 20:36 Temperature 39.1 C H Pulse Rate 123 H 124 H Respiratory Rate Blood Pressure 120/100 H 132/98 H Pulse Oximetry Oxygen Delivery Fraction of Inspired Oxygen 09/20/24 20:36 09/20/24 20:37 09/20/24 20:42 Temperature Pulse Rate 124 H 123 H 119 H Respiratory Rate 36 H 38 H Blood Pressure 127/95 H Pulse Oximetry Oxygen Delivery Fraction of Inspired Oxygen 09/20/24 20:44 09/20/24 20:55 09/20/24 21:22 Temperature 39.1 C H 39.5 C H Pulse Rate 121 H 116 H Respiratory Rate 26 H 36 H Blood Pressure 120/100 H Pulse Oximetry 96 Oxygen Delivery Fraction of Inspired Oxygen 09/20/24 21:23 09/20/24 22:00 09/20/24 22:00 Temperature Pulse Rate 113 H 116 H 116 H Respiratory Rate 24 H 24 H Blood Pressure 117/81 Pulse Oximetry Oxygen Delivery Fraction of Inspired Oxygen 09/20/24 22:00 09/20/24 22:00 09/20/24 22:00 Temperature 39.6 C H Pulse Rate 116 H 116 H 112 H Respiratory Rate 24 H Blood Pressure 106/84 106/84 106/84 Pulse Oximetry 95 Oxygen Delivery Fraction of Inspired Oxygen 09/20/24 22:00 09/20/24 22:03 09/20/24 22:20 Temperature Pulse Rate 111 H 113 H 111 H Respiratory Rate Blood Pressure 106/84 110/87 Pulse Oximetry Oxygen Delivery Fraction of Inspired Oxygen 09/20/24 22:58 09/20/24 22:59 09/20/24 23:04 Temperature Pulse Rate 111 H 111 H 111 H Respiratory Rate 22 H 22 H Blood Pressure 101/77 Pulse Oximetry Oxygen Delivery Fraction of Inspired Oxygen 09/20/24 23:51 09/20/24 23:51 09/20/24 23:55 Temperature Pulse Rate 112 H 112 H 112 H Respiratory Rate Blood Pressure 106/75 106/75 Pulse Oximetry 93 Oxygen Delivery Mechanical Ventilation Fraction of Inspired Oxygen 80 09/21/24 00:00 09/21/24 00:00 09/21/24 00:00 Temperature Pulse Rate 111 H 111 H 111 H Respiratory Rate 22 H 22 H Blood Pressure 93/67 L Pulse Oximetry Oxygen Delivery Fraction of Inspired Oxygen 09/21/24 00:00 09/21/24 00:00 09/21/24 00:00 Temperature Pulse Rate 111 H 111 H 111 H Respiratory Rate 22 H Blood Pressure 93/67 L 93/67 L Pulse Oximetry 96 Oxygen Delivery Mechanical Ventilation Fraction of Inspired Oxygen 80 09/21/24 00:00 09/21/24 00:00 09/21/24 00:25 Temperature 39.2 C H Pulse Rate 111 H 111 H Respiratory Rate 24 H Blood Pressure 93/67 L Pulse Oximetry 94 Oxygen Delivery Fraction of Inspired Oxygen 80 09/21/24 01:11 09/21/24 02:00 09/21/24 02:00 Temperature 38.6 C H Pulse Rate 110 H 109 H 112 H Respiratory Rate 24 H Blood Pressure 112/87 125/82 Pulse Oximetry 99 Oxygen Delivery Fraction of Inspired Oxygen 09/21/24 02:00 09/21/24 02:00 09/21/24 02:00 Temperature Pulse Rate 112 H 112 H 112 H Respiratory Rate 22 H 22 H Blood Pressure 125/82 Pulse Oximetry Oxygen Delivery Fraction of Inspired Oxygen 09/21/24 02:00 09/21/24 02:07 09/21/24 02:44 Temperature Pulse Rate 112 H 110 H 112 H Respiratory Rate Blood Pressure 125/82 125/82 114/80 Pulse Oximetry Oxygen Delivery Fraction of Inspired Oxygen 09/21/24 02:55 09/21/24 02:57 09/21/24 03:03 Temperature Pulse Rate 112 H 112 H 112 H Respiratory Rate 25 H Blood Pressure 128/80 124/83 Pulse Oximetry Oxygen Delivery Fraction of Inspired Oxygen 09/21/24 03:04 09/21/24 03:05 09/21/24 03:05 Temperature Pulse Rate 112 H 109 H 109 H Respiratory Rate 26 H Blood Pressure 124/83 Pulse Oximetry 95 Oxygen Delivery Mechanical Ventilation Fraction of Inspired Oxygen 80 09/21/24 03:16 09/21/24 03:25 09/21/24 03:36 Temperature Pulse Rate 113 H 112 H 112 H Respiratory Rate Blood Pressure 126/87 114/85 108/82 Pulse Oximetry Oxygen Delivery Fraction of Inspired Oxygen 09/21/24 03:49 09/21/24 04:00 09/21/24 04:00 Temperature Pulse Rate 111 H 112 H 112 H Respiratory Rate 22 H Blood Pressure 116/79 116/75 Pulse Oximetry Oxygen Delivery Fraction of Inspired Oxygen 09/21/24 04:00 09/21/24 04:00 09/21/24 04:00 Temperature 38.4 C H Pulse Rate 111 H 112 H Respiratory Rate 22 H 24 H Blood Pressure 116/75 Pulse Oximetry 95 94 Oxygen Delivery Mechanical Ventilation Fraction of Inspired Oxygen 80 80 09/21/24 04:00 09/21/24 04:01 09/21/24 04:02 Temperature Pulse Rate 111 H 112 H 112 H Respiratory Rate 22 H Blood Pressure 116/75 Pulse Oximetry Oxygen Delivery Fraction of Inspired Oxygen 09/21/24 04:14 09/21/24 04:22 09/21/24 04:29 Temperature Pulse Rate 110 H 110 H 110 H Respiratory Rate Blood Pressure 108/79 109/77 107/75 Pulse Oximetry Oxygen Delivery Fraction of Inspired Oxygen 09/21/24 04:29 09/21/24 04:34 09/21/24 04:52 Temperature Pulse Rate 110 H 110 H 111 H Respiratory Rate Blood Pressure 107/75 112/81 106/67 Pulse Oximetry Oxygen Delivery Fraction of Inspired Oxygen 09/21/24 05:02 09/21/24 05:13 09/21/24 05:24 Temperature Pulse Rate 111 H 113 H 110 H Respiratory Rate Blood Pressure 109/71 104/82 Pulse Oximetry 97 Oxygen Delivery Mechanical Ventilation Fraction of Inspired Oxygen 80 09/21/24 05:26 09/21/24 05:35 09/21/24 05:43 Temperature Pulse Rate 112 H 112 H 112 H Respiratory Rate Blood Pressure 110/75 105/84 112/86 Pulse Oximetry Oxygen Delivery Fraction of Inspired Oxygen 09/21/24 05:50 09/21/24 05:55 09/21/24 06:00 Temperature Pulse Rate 112 H 113 H 113 H Respiratory Rate Blood Pressure 114/74 109/84 Pulse Oximetry Oxygen Delivery Fraction of Inspired Oxygen 09/21/24 06:00 09/21/24 06:00 09/21/24 06:00 Temperature 38.5 C H Pulse Rate 114 H 113 H 113 H Respiratory Rate 24 H 22 H 22 H Blood Pressure 110/83 Pulse Oximetry 98 Oxygen Delivery Fraction of Inspired Oxygen 09/21/24 06:02 09/21/24 06:07 09/21/24 06:15 Temperature Pulse Rate 113 H 113 H 113 H Respiratory Rate Blood Pressure 110/83 119/84 110/75 Pulse Oximetry Oxygen Delivery Fraction of Inspired Oxygen 09/21/24 06:20 09/21/24 06:25 09/21/24 06:25 Temperature Pulse Rate 112 H 113 H Respiratory Rate Blood Pressure 109/76 111/74 Pulse Oximetry Oxygen Delivery Fraction of Inspired Oxygen 70 09/21/24 06:30 09/21/24 06:39 09/21/24 07:56 Temperature Pulse Rate 113 H 113 H 110 H Respiratory Rate 25 H Blood Pressure 109/76 110/74 Pulse Oximetry Oxygen Delivery Fraction of Inspired Oxygen 09/21/24 08:00 09/21/24 08:11 09/21/24 08:12 Temperature 38.9 C H Pulse Rate 109 H 111 H 111 H Respiratory Rate 18 28 H Blood Pressure 99/64 L Pulse Oximetry 97 96 Oxygen Delivery Mechanical Ventilation Fraction of Inspired Oxygen 50 09/21/24 10:00 09/21/24 10:42 Temperature 38.6 C H Pulse Rate 106 H 106 H Respiratory Rate 19 Blood Pressure 106/71 Pulse Oximetry 94 95 Oxygen Delivery Mechanical Ventilation Fraction of Inspired Oxygen 50 Intake/Output Intake/Output: Intake & Output 09/18/24 09/19/24 09/20/24 09/21/24 23:59 23:59 23:59 23:59 Intake Total 8968.2 1566.1 Output Total 1075 950 Balance 7893.2 616.1 Meds/Results Medications: Active Medications Generic Name Dose Route Start Last Admin Trade Name Freq PRN Reason Stop Dose Admin Acetaminophen 650 mg 09/20/24 19:03 09/20/24 20:22 Acetaminophen Elixir 325 Mg/10.15 Ml Udc PO 650 mg Q4H PRN Administration Mild Pain (1-3) or Fever Albuterol/Ipratropium 3 ml 09/20/24 08:00 09/21/24 07:56 Ipratropium 0.5 Mg/Albuterol Sulfate 2.5 Mg Ampul.Neb 3 Ml INHALATION 3 ml Q6HRT TOMY Administration Dextrose 12.5 gm 09/20/24 03:19 Dextrose 50% 25 Gm/50 Ml Syringe IV PUSH PRN PRN Hypoglycemia Protocol Enoxaparin Sodium 40 mg 09/20/24 09:00 09/21/24 09:11 Enoxaparin 40 Mg/0.4 Ml Syringe SUB-Q 40 mg DAILY TOMY Administration Glucagon 1 mg 09/20/24 03:19 Glucagon For Inj 1 Mg Vial IM PRN PRN Hypoglycemia Protocol Glucose 15 gm 09/20/24 03:19 Glucose Oral Gel 15 Gm Of Glucse In 37.5 Gm Tube PO PRN PRN Hypoglycemia Protocol Hydrocortisone Sodium Succinate 100 mg 09/20/24 14:00 09/21/24 05:35 Hydrocortisone Sodium Succinate 100 Mg/2 Ml Vial IV PUSH 100 mg Q8HR TOMY Administration Dextrose 1,000 mls @ 100 mls/hr 09/20/24 03:19 Dextrose 5% 1,000 Ml IVPB PRN PRN Hypoglycemia Protocol Doxycycline Hyclate 100 mg in 100 mls @ 100 mls/hr 09/20/24 21:00 09/21/24 09:14 Vibramycin 100 Mg/Ns 100 Ml IVPB 100 mls/hr Q12H TOMY Administration Cefepime HCl 2 gm in 50 mls @ 100 mls/hr 09/20/24 21:00 09/21/24 09:11 Maxipime 2 Gm/Ns 50 Ml IVPB 100 mls/hr Q12HR TOMY Administration Norepinephrine Bitartrate 8 mg in 250 mls @ 0 mls/hr 09/20/24 19:35 09/21/24 06:39 Levophed 8 Mg/D5w 250 Ml IV CONT 0 mcg/min .Q0M TOMY 0 mls/hr Titration Protocol 0 MCG/MIN Fentanyl Citrate 2,500 mcg in 250 mls @ 10 mls/hr 09/20/24 21:10 09/21/24 06:00 Fentanyl 2,500 Mcg/Ns 250 Ml IV CONT 100 mcg/hr .Q25H TOMY 10 mls/hr Titration Protocol 100 MCG/HR Midazolam HCl 100 mg in 100 mls @ 5 mls/hr 09/20/24 22:10 09/21/24 06:00 Versed 100 Mg/Ns 100 Ml IV CONT 5 mg/hr .Q20H TOMY 5 mls/hr Titration Protocol 5 MG/HR Magnesium Sulfate 2 gm in 50 mls @ 25 mls/hr 09/21/24 08:45 09/21/24 09:14 Magnesium Sulf 2 Gm/Water 50ml IVPB 09/21/24 10:44 25 mls/hr ONCE ONE Administration Insulin Aspart 4 - 8 units 09/21/24 08:40 09/21/24 09:10 Insulin Aspart (*Bkc) 100 Units/Ml SUB-Q 5 units Q4H TOMY Administration Protocol Insulin Glargine 30 units 09/21/24 09:00 09/21/24 09:11 Insulin Glargine (*Bkc) 100 Units/Ml SUB-Q 30 units QAM TOMY Administration Levothyroxine Sodium 100 mcg 09/21/24 06:30 09/21/24 05:35 Levothyroxine Sodium 100 Mcg Tablet FEED TUBE 100 mcg DAILY@0630 [facility] Administration Multi-Ingred Cream/Lotion/Oil/Oint 1 applic 09/20/24 21:00 09/20/24 20:22 Mineral Oil/White Petrolatum Ointment EACH EYE 1 applic Q12HR TOMY Administration Oseltamivir Phosphate 30 mg 09/20/24 14:10 09/20/24 20:22 Oseltamivir Phosphate 30 Mg Capsule PO 09/24/24 09:01 30 mg Q12HR TOMY Administration Pantoprazole Sodium 40 mg 09/20/24 09:00 09/21/24 09:13 Pantoprazole Sodium Iv 40 Mg Vial IV PUSH 40 mg QAM TOMY Administration Perflutren Lipid Microsphere 0 ml 09/20/24 09:10 Perflutren Lipid Microspheres 1.5 Ml Vial Diluted To 10 Ml Total Volume IV PUSH 09/23/24 09:10 ONCE PRN adequate visualization Protocol Sodium Bicarbonate 650 mg 09/21/24 09:00 09/21/24 09:15 Sodium Bicarbonate Tab 650 Mg Tablet FEED TUBE 650 mg BID TOMY Administration Sodium Chloride 10 ml 09/20/24 14:00 09/21/24 05:35 Central Line Flush IV PUSH 10 ml Q8HR TOMY Administration Sodium Chloride 20 ml 09/20/24 06:40 Central Line Flush IV PUSH PRN PRN after blood draws Vancomycin HCl 1 each 09/20/24 14:06 Vancomycin For Acute Kidney Injury IVPB PRN PRN Vancomycin Protocol Radiology Results: ITS Impressions Chest CTA 09/20/24 05:30 Impression: Bilateral multifocal pneumonia, most extensively involving the lower lobes. No pulmonary embolus seen. Abdomen X-Ray 09/20/24 05:35 Impression: NG tube in satisfactory position. Chest X-Ray 09/21/24 06:11 Impression: Extensive bilateral pulmonary consolidation, worsened in the right lung from prior exam, essentially stable in the left lung. Findings are suspicious for extensive bilateral pneumonia. Small left pleural effusion. Support tubes, as above. Labs Labs: Laboratory Results - last 24 hr 09/20/24 09/20/24 09/20/24 09:00 11:31 12:24 WBC RBC Hgb Hct MCV MCH MCHC RDW Plt Count MPV Puncture Site ABG pH ABG pCO2 ABG pO2 ABG PO2/FiO2 Ratio ABG HCO3 ABG O2 Saturation ABG O2 Content ABG Base Excess A-a Gradient Oxyhemoglobin Carboxyhemoglobin Methemoglobin Reduced Hemoglobin Total Hemoglobin O2 Delivery Device O2 Liters/Min Minute Volume Vent Rate Vent Mode FiO2 Tidal Volume PEEP Peak Inspir Pressure Pressure Support Sodium Potassium Chloride Carbon Dioxide Anion Gap BUN Creatinine Estim Creat Clear Calc Estimated GFR Glucose POC Capillary Glucose 233 H Calcium Phosphorus Magnesium Total Bilirubin AST ALT Alkaline Phosphatase Total Creatine Kinase 31 Total Protein Albumin Procalcitonin 80.6 Ur Random Sodium 7 Urine Creatinine 201.4 Random Vancomycin 09/20/24 09/20/24 09/20/24 17:04 19:57 23:52 WBC RBC Hgb Hct MCV MCH MCHC RDW Plt Count MPV Puncture Site ABG pH ABG pCO2 ABG pO2 ABG PO2/FiO2 Ratio ABG HCO3 ABG O2 Saturation ABG O2 Content ABG Base Excess A-a Gradient Oxyhemoglobin Carboxyhemoglobin Methemoglobin Reduced Hemoglobin Total Hemoglobin O2 Delivery Device O2 Liters/Min Minute Volume Vent Rate Vent Mode FiO2 Tidal Volume PEEP Peak Inspir Pressure Pressure Support Sodium Potassium Chloride Carbon Dioxide Anion Gap BUN Creatinine Estim Creat Clear Calc Estimated GFR Glucose POC Capillary Glucose 348 H 341 H 357 H Calcium Phosphorus Magnesium Total Bilirubin AST ALT Alkaline Phosphatase Total Creatine Kinase Total Protein Albumin Procalcitonin Ur Random Sodium Urine Creatinine Random Vancomycin 09/21/24 09/21/24 09/21/24 04:33 04:35 04:49 WBC 3.5 L RBC 3.68 L Hgb 9.3 L Hct 29.7 L MCV 80.7 MCH 25.3 L MCHC 31.3 L RDW 15.8 H Plt Count 177 MPV 10.8 H Puncture Site Left brachial ABG pH 7.279 L* ABG pCO2 33.0 L ABG pO2 120.0 H ABG PO2/FiO2 Ratio 1.50 ABG HCO3 15.1 L ABG O2 Saturation 98.0 ABG O2 Content 13.8 L ABG Base Excess -10.6 A-a Gradient 415.8 Oxyhemoglobin 97.3 Carboxyhemoglobin 0.5 Methemoglobin 0.3 Reduced Hemoglobin 1.9 Total Hemoglobin 9.9 L O2 Delivery Device Ventilator O2 Liters/Min Not Reportable Minute Volume Not Reportable Vent Rate 22 Vent Mode Cmv FiO2 80 Tidal Volume 350 PEEP 10 Peak Inspir Pressure Not Reportable Pressure Support Not Reportable Sodium 135 L Potassium 4.4 Chloride 106 Carbon Dioxide 15 L Anion Gap 14 H BUN 23 H Creatinine 0.84 Estim Creat Clear Calc 64 Estimated GFR > 60 Glucose 285 H POC Capillary Glucose 296 H Calcium 7.0 L Phosphorus 3.0 Magnesium 1.3 L Total Bilirubin 0.6 AST 4720 H ALT 722 H Alkaline Phosphatase 62 Total Creatine Kinase Total Protein 6.0 L Albumin 3.2 L Procalcitonin Ur Random Sodium Urine Creatinine Random Vancomycin 9.7 L 09/21/24 07:59 WBC RBC Hgb Hct MCV MCH MCHC RDW Plt Count MPV Puncture Site ABG pH ABG pCO2 ABG pO2 ABG PO2/FiO2 Ratio ABG HCO3 ABG O2 Saturation ABG O2 Content ABG Base Excess A-a Gradient Oxyhemoglobin Carboxyhemoglobin Methemoglobin Reduced Hemoglobin Total Hemoglobin O2 Delivery Device O2 Liters/Min Minute Volume Vent Rate Vent Mode FiO2 Tidal Volume PEEP Peak Inspir Pressure Pressure Support Sodium Potassium Chloride Carbon Dioxide Anion Gap BUN Creatinine Estim Creat Clear Calc Estimated GFR Glucose POC Capillary Glucose 261 H Calcium Phosphorus Magnesium Total Bilirubin AST ALT Alkaline Phosphatase Total Creatine Kinase Total Protein Albumin Procalcitonin Ur Random Sodium Urine Creatinine Random Vancomycin Quality VTE Prophylaxis VTE prophylaxis: pharmacologic ordered
--- NOTE | 2024-09-21 11:27 | PCFNICU ---
ICU Rounding Note: Pt current nutrition is Glucerna 1.2 at 20 ml/hr Nutrition recommendation: Goal rate at 60 ml/hr. Last recorded weight is 61.2 kg, up from 59.9 kg on admit. Bowel Motility:+BM reported 09/21 Labs Reviewed: Mg 1.3, Glu 285, BUN 23, Na 135, Hct 29.7, Hgb 9.3 Meds Noted: Lantus, NovoLog, Fentanyl, Versed. Skin: WNL Additional Notes: Patient remains on mechanical vent. Tube feedings are being started of Glucerna 1.2 at 20 ml/hr. Flush 30 ml q 4 hours. When advancing tube feedings recommend goal rate of 60 ml/hr, which is providing 1584 kcal/79 gm protein/1063 ml water. Following daily in ICU rounds. Will monitor weight, labs, skin, diet order, meds every Wednesday and Wednesday.
[2024-09-21 11:34] LABS: Glucose Point of Care 223 mg/dl (65-105)
[2024-09-21] MEDS: MINERAL OIL/WHITE PETROLATUM OINTMENT 1 APPLIC EACH EYE ×2 (11:50→20:16)
[2024-09-21] MEDS: OSELTAMIVIR PHOSPHATE 30 MG CAPSULE PO ×2 (11:56→20:16)
[2024-09-21] MEDS: ACETAMINOPHEN ELIXIR 325 MG/10.15 ML UDC 650 MG PO (11:59)
[2024-09-21 17:09] LABS: Glucose Point of Care 184 mg/dl (65-105)
[2024-09-21] MEDS: MIDAZOLAM 100MG/NS 100ML(*CRX) 100 MG/100 ML BAG IV CONT (19:24)
[2024-09-21 20:10] LABS: Glucose Point of Care 220 mg/dl (65-105)
[2024-09-21 23:29] LABS: Glucose Point of Care 239 mg/dl (65-105)
[2024-09-22] VITALS (32 sets, daily range): BP systolic 93–108; BP diastolic 58–74; PULSE 82–94; RESP 16–26; TEMP 36.1–37.6; O2SAT 92–100
[2024-09-22] MEDS: FENTANYL 2,500MCG/NS250ML(*CRX 2,500 MCG/250 ML BAG 10 MCG IV CONT (01:33)
[2024-09-22] MEDS: IPRATROPIUM 0.5 MG/ALBUTEROL SULFATE 2.5 MG AMPUL.NEB 3 ML INHALATION ×2 (02:10→08:01)
[2024-09-22 05:26] LABS: Hematocrit 24.8 % (37.0-47.0); Hemoglobin 7.7 g/dL (12.0-15.0); Mean Corpuscular Volume 80.5 fl (80-100); Platelet Count Result 117 k/mm3 (150-375); Red Blood Count 3.08 M/mm3 (4.2-5.4); Red Cell Distribution Width 16.5 % (11.5-14.5); White Blood Count 5.9 K/mm3 (4.5-10.0)
[2024-09-22 05:35] LABS: Alveolar/Arterial O2 Gradient 187.2 mmHg; Base Excess ABG -10.9 mEq/l (+/-2.0); Carboxyhemoglobin 1.3 % THb (0-2.0); Fractional Inspired Oxygen 45 %; HCO3 ABG 16.3 mEq/l (22.0-26.0); Methemoglobin ABG 0.3 %THb (0-1.5); Oxygen Saturation ABG 94.3 % (95.0-100.0); Oxyhemoglobin 93.3 % THb (90.0-100.0); PCO2 ABG 42.4 mmHg (35.0-45.0); PO2 ABG 85.4 mmHg (80.0-100.0); Reduced Hemoglobin 5.1 %THb (0-5.0); Total Hemoglobin 8.3 g/dL (12.0-18.0)
[2024-09-22 05:36] LABS: Device VENTILATOR; Site Drawn RIGHT BRACHIAL; pH ABG 7.204 (7.350-7.450)
[2024-09-22 05:37] LABS: Arterial Blood Gas PEEP 10 cmH2O; Arterial Blood Gas Tidal Volume 350 ml; Arterial Blood Gas Vent Mode CMV; Arterial Blood Gas Ventilator rate 22 /MIN
[2024-09-22 05:56] LABS: Albumin Level 3.3 g/dL (3.5-5.1); Alkaline Phosphatase 102 U/L (38-126); Anion Gap 15 mmol/L (4-12); Bilirubin,Total 0.9 mg/dL (0.2-1.3); Blood Urea Nitrogen 45 mg/dL (7-17); Calcium 7.7 mg/dL (8.4-10.2); Carbon Dioxide 16 mmol/L (22-30); Chloride 105 mmol/L (98-107); Estimated CRCL calculation 26 ml/min; Estimated Glomerular Filt Rate 25; Glucose 230 mg/dL (65-110); Magnesium 2.3 mg/dL (1.6-2.3); Phosphorus 5.1 mg/dL (2.5-4.5); Potassium 4.8 mmol/L (3.4-5.0); Sodium 136 mmol/L (137-145)
[2024-09-22] MEDS: INSULIN ASPART (*BKC) 100 UNITS/ML SUB-Q ×3 (06:00→21:38)
[2024-09-22 06:04] LABS: Alanine Aminotransferase 842 U/L (6-35)
[2024-09-22 06:06] LABS: Vancomycin Random 17.4 ug/mL (10-20)
[2024-09-22] MEDS: CENTRAL LINE FLUSH 10 ML IV PUSH ×3 (06:08→20:25)
[2024-09-22 06:11] LABS: Aspartate Amino Transferase 2572 U/L (14-36)
[2024-09-22] MEDS: HYDROCORTISONE SODIUM SUCCINATE 100 MG/2 ML VIAL IV PUSH ×3 (06:51→20:25)
[2024-09-22] MEDS: SODIUM BICARBONATE 8.4% 50 MEQ/50 ML SYRINGE 100 MEQ IV PUSH (06:52)
[2024-09-22] MEDS: LEVOTHYROXINE SODIUM 100 MCG TABLET FEED TUBE (06:52)
[2024-09-22] MEDS: VANCOMYCIN 1,000 MG/NS 250 ML 1,000 MG/250 ML BAG 250 MG IVPB (07:37)
[2024-09-22 07:38] LABS: Glucose Point of Care 219 mg/dl (65-105)
[2024-09-22] MEDS: PANTOPRAZOLE SODIUM IV 40 MG VIAL IV PUSH (07:58)
[2024-09-22] MEDS: SODIUM BICARBONATE TAB 650 MG TABLET FEED TUBE ×2 (07:58→17:04)
[2024-09-22] MEDS: OSELTAMIVIR PHOSPHATE 30 MG CAPSULE PO ×2 (07:58→20:25)
[2024-09-22] MEDS: INSULIN GLARGINE (*BKC) 100 UNITS/ML 30 UNITS SUB-Q (07:58)
[2024-09-22] MEDS: CEFEPIME 2 GM/NS 50 ML 2 GM/50 ML BAG IVPB (07:59)
[2024-09-22] MEDS: DOXYCYCLINE 100 MG/NS 100 ML 100 MG/100 ML BAG IVPB ×2 (07:59→20:24)
[2024-09-22] MEDS: MINERAL OIL/WHITE PETROLATUM OINTMENT 1 APPLIC EACH EYE ×2 (07:59→20:25)
[2024-09-22] MEDS: ENOXAPARIN 40 MG/0.4 ML SYRINGE SUB-Q (08:00)
--- NOTE | 2024-09-22 08:40 | P.PNINT_ITS ---
Progress Note: A&P Assessment and Plan (1) Acute hypoxic respiratory failure: Code(s): J96.01 - Acute respiratory failure with hypoxia Status: Acute Assessment and Plan: Acute respiratory failure secondary to influenza A and pneumonia CTA chest Bilateral multifocal pneumonia, most extensively involving the lower lobes. No pulmonary embolus seen. Patient now intubated and on mechanical ventilation ABG reviewed. Peep is at 10 FiO2 45%. Continue to wean FiO2 Continue sedation with Versed and fentanyl Bronchodilators (2) Uncontrolled diabetes mellitus: Status: Acute Assessment and Plan: SSI Increase Lantus to 40 Advance tube feeds (3) Septic shock: Code(s): A41.9 - Sepsis, unspecified organism; R65.21 - Severe sepsis with septic shock Status: Acute Assessment and Plan: Septic shock secondary to pneumonia Hold further IV fluids On 2 mics of Levophed Continue Stress dose hydrocortisone Bicarb per tube for acidosis Blood cultures are negative till now Sputum cultures growing Staph aureus Currently on vancomycin, cefepime and doxycycline (4) PNA (pneumonia): Code(s): J18.9 - Pneumonia, unspecified organism Status: Acute Assessment and Plan: See above (5) Hypothyroidism: Code(s): E03.9 - Hypothyroidism, unspecified Status: Acute Assessment and Plan: Continue levothyroxine Normal TSH (6) Influenza: Code(s): J11.1 - Influenza due to unidentified influenza virus with other respiratory manifestations Status: Acute Assessment and Plan: Isolation Tamiflu (7) SCAR (acute kidney injury): Code(s): N17.9 - Acute kidney failure, unspecified Status: Acute Assessment and Plan: Patient presented with elevated creatinine which initially improved with fluids but now back up to 2.19 This is likely multifactorial secondary to sepsis, shock possible contrast induced injury. Patient is also on medications including vancomycin Normal CK Check renal ultrasound Consult nephrology Will give additional 25% albumin Monitor urine output electrolytes and creatinine (8) Shock liver: Code(s): K72.00 - Acute and subacute hepatic failure without coma Status: Acute Assessment and Plan: Elevated AST and ALT likely secondary to shock liver as patient presented with severe septic shock AST improved, ALT still elevated. Alkaline phosphatase and bilirubin normal Check right upper quadrant ultrasound Check hepatitis instrument panel assembler levels (9) Thrombocytopenia: Code(s): D69.6 - Thrombocytopenia, unspecified Status: Acute Assessment and Plan: Gradual in platelet count since admission likely multifactorial secondary to sepsis medications and hemodilution Monitor Plan DVT prophylaxis -Lovenox Stress ulcer prophylaxis -Protonix Nutrition - advance tube feed Code Status - Full Code Total Critical Care Time -35 minutes Due to a high probability of clinically significant, life threatening deterioration, the patient required my highest level of preparedness to intervene emergently and I personally spent this critical care time directly and personally managing the patient. This critical care time included obtaining a history; examining the patient; pulse oximetry; ordering and review of studies; arranging urgent treatment with development of a management plan; evaluation of patient's response to treatment; frequent reassessment; and discussions with other providers. It was exclusive of separately billable procedures and treating other patients and teaching time. Please see Assessment and Plan section and the rest of the note for further information on patient assessment and treatment Subjective Date/time seen: 09/22/24 Overnight events reviewed. Afebrile Continues to be on mechanical ventilation 45% FiO2 and 10 of PEEP Continues to be on low-dose Levophed Continues to be sedated with Versed and fentanyl Drop in urine output Tolerating tube feeds at 20 mL/hour Sedated Review of Systems Review of Systems: ROS unobtainable: Yes unobtainable due to endotracheal tube, unobtainable due to medical condition and unobtainable due to mental status Exam Narrative: General: Pt is sedated, intubated and on mechanical ventilation Lungs/Chest: Trachea central Coarse BS B/L, No crackles or wheezing. Cardiac: RRR. Normal S1 S2. No murmurs Circulation: Pedal pulses are weak but palpable, feet are much warmer today and the mottling of the skin of both hands and feet appears improved as compared to yesterday Abdomen: Decreased bowel sounds. Soft. NT. ND. Extremities: No clubbing, cyanosis or edema. Warm : Leach in place Neurologic: Unable to assess due to sedation. Moves all 4 extremities to painful stimuli. PERRL Objective Data Vital Signs Vital Signs: Vital Signs - 24 hr 09/21/24 10:09/21/24 10:09/21/24 10:00 Temperature 38.6 C H Pulse Rate 106 H 106 H 106 H Respiratory Rate 19 22 H Blood Pressure 106/71 Pulse Oximetry 94 Oxygen Delivery Fraction of Inspired Oxygen 09/21/24 10:09/21/24 10:09/21/24 10:42 Temperature Pulse Rate 106 H 106 H 106 H Respiratory Rate 22 H Blood Pressure 106/71 Pulse Oximetry 95 Oxygen Delivery Mechanical Ventilation Fraction of Inspired Oxygen 50 09/21/24 11:59 09/21/24 12:00 09/21/24 12:00 Temperature 38.5 C H Pulse Rate 105 H 105 H Respiratory Rate 22 H 22 H Blood Pressure Pulse Oximetry Oxygen Delivery Fraction of Inspired Oxygen 09/21/24 12:00 09/21/24 12:00 09/21/24 12:00 Temperature 38.5 C H Pulse Rate 105 H 105 H 105 H Respiratory Rate 17 Blood Pressure 98/73 L 98/73 L Pulse Oximetry 95 Oxygen Delivery Fraction of Inspired Oxygen 09/21/24 12:00 09/21/24 12:00 09/21/24 14:00 Temperature Pulse Rate 98 Respiratory Rate Blood Pressure 87/59 L Pulse Oximetry Oxygen Delivery Mechanical Ventilation Fraction of Inspired Oxygen 50 50 09/21/24 14:00 09/21/24 14:00 09/21/24 14:00 Temperature Pulse Rate 98 98 98 Respiratory Rate 22 H 22 H Blood Pressure Pulse Oximetry Oxygen Delivery Fraction of Inspired Oxygen 09/21/24 14:00 09/21/24 14:11 09/21/24 14:13 Temperature 37.8 C H Pulse Rate 98 97 96 Respiratory Rate 24 H 25 H Blood Pressure 89/56 L Pulse Oximetry 97 97 Oxygen Delivery Mechanical Ventilation Fraction of Inspired Oxygen 50 09/21/24 14:20 09/21/24 14:20 09/21/24 16:00 Temperature Pulse Rate 98 98 Respiratory Rate 27 H Blood Pressure 86/49 L Pulse Oximetry Oxygen Delivery Mechanical Ventilation Fraction of Inspired Oxygen 50 09/21/24 16:00 09/21/24 16:00 09/21/24 16:00 Temperature Pulse Rate 97 97 Respiratory Rate 25 H 25 H Blood Pressure Pulse Oximetry Oxygen Delivery Fraction of Inspired Oxygen 50 09/21/24 16:00 09/21/24 16:00 09/21/24 16:00 Temperature 37.6 C H Pulse Rate 97 97 97 Respiratory Rate 25 H Blood Pressure 95/59 L 95/59 L Pulse Oximetry 96 Oxygen Delivery Fraction of Inspired Oxygen 09/21/24 17:08 09/21/24 17:46 09/21/24 18:00 Temperature Pulse Rate 95 93 93 Respiratory Rate Blood Pressure 89/53 L 90/57 L Pulse Oximetry 98 Oxygen Delivery Mechanical Ventilation Fraction of Inspired Oxygen 50 09/21/24 18:00 09/21/24 18:00 09/21/24 18:00 Temperature Pulse Rate 93 94 93 Respiratory Rate 22 H 22 H Blood Pressure Pulse Oximetry Oxygen Delivery Fraction of Inspired Oxygen 09/21/24 18:00 09/21/24 19:23 09/21/24 19:24 Temperature 37.4 C Pulse Rate 93 91 91 Respiratory Rate 12 25 H 25 H Blood Pressure 90/57 L Pulse Oximetry 98 Oxygen Delivery Fraction of Inspired Oxygen 09/21/24 20:00 09/21/24 20:00 09/21/24 20:00 Temperature Pulse Rate 90 90 Respiratory Rate 26 H Blood Pressure Pulse Oximetry 99 Oxygen Delivery Mechanical Ventilation Fraction of Inspired Oxygen 50 50 09/21/24 20:17 09/21/24 20:17 09/21/24 20:27 Temperature 37.3 C Pulse Rate 92 91 90 Respiratory Rate 22 H 22 H Blood Pressure 92/60 L 92/59 L Pulse Oximetry 100 Oxygen Delivery Fraction of Inspired Oxygen 09/21/24 20:59 09/21/24 20:59 09/21/24 21:04 Temperature Pulse Rate 90 90 90 Respiratory Rate 26 H 26 H Blood Pressure Pulse Oximetry 99 Oxygen Delivery Mechanical Ventilation Fraction of Inspired Oxygen 50 09/21/24 22:00 09/21/24 22:00 09/21/24 22:00 Temperature 37.5 C Pulse Rate 90 90 90 Respiratory Rate 22 H Blood Pressure 96/66 L Pulse Oximetry 100 Oxygen Delivery Fraction of Inspired Oxygen 09/21/24 22:00 09/21/24 22:00 09/22/24 00:00 Temperature Pulse Rate 91 90 90 Respiratory Rate 22 H 22 H Blood Pressure Pulse Oximetry Oxygen Delivery Fraction of Inspired Oxygen 09/22/24 00:00 09/22/24 00:00 09/22/24 00:00 Temperature Pulse Rate 90 90 Respiratory Rate 22 H 22 H Blood Pressure Pulse Oximetry Oxygen Delivery Fraction of Inspired Oxygen 50 09/22/24 00:00 09/22/24 00:00 09/22/24 00:00 Temperature 37.1 C Pulse Rate 90 90 88 Respiratory Rate 26 H 22 H Blood Pressure 100/69 Pulse Oximetry 99 100 Oxygen Delivery Mechanical Ventilation Fraction of Inspired Oxygen 50 09/22/24 00:08 09/22/24 01:33 09/22/24 01:55 Temperature Pulse Rate 89 90 88 Respiratory Rate 22 H Blood Pressure Pulse Oximetry 100 100 Oxygen Delivery Mechanical Ventilation Mechanical Ventilation Fraction of Inspired Oxygen 50 50 09/22/24 02:00 09/22/24 02:00 09/22/24 02:00 Temperature 36.1 C L Pulse Rate 94 90 91 Respiratory Rate 16 20 Blood Pressure 99/67 L Pulse Oximetry 96 Oxygen Delivery Fraction of Inspired Oxygen 09/22/24 02:00 09/22/24 02:10 09/22/24 02:20 Temperature Pulse Rate 94 88 90 Respiratory Rate 22 H 22 H Blood Pressure Pulse Oximetry Oxygen Delivery Fraction of Inspired Oxygen 09/22/24 04:00 09/22/24 04:00 09/22/24 04:00 Temperature 36.6 C Pulse Rate 90 94 Respiratory Rate 26 H 24 H Blood Pressure 108/66 Pulse Oximetry 99 97 Oxygen Delivery Mechanical Ventilation Fraction of Inspired Oxygen 50 50 09/22/24 04:00 09/22/24 04:00 09/22/24 04:00 Temperature Pulse Rate 94 94 94 Respiratory Rate 22 H 22 H Blood Pressure Pulse Oximetry Oxygen Delivery Fraction of Inspired Oxygen 09/22/24 04:00 09/22/24 05:05 09/22/24 06:00 Temperature 36.8 C Pulse Rate 92 93 92 Respiratory Rate 21 H Blood Pressure 107/72 Pulse Oximetry 97 95 Oxygen Delivery Mechanical Ventilation Fraction of Inspired Oxygen 45 09/22/24 06:00 09/22/24 06:00 09/22/24 06:00 Temperature Pulse Rate 94 94 94 Respiratory Rate 22 H 22 H Blood Pressure Pulse Oximetry Oxygen Delivery Fraction of Inspired Oxygen 09/22/24 06:00 09/22/24 07:35 09/22/24 08:00 Temperature Pulse Rate 92 92 94 Respiratory Rate Blood Pressure 107/73 99/67 L Pulse Oximetry Oxygen Delivery Fraction of Inspired Oxygen 09/22/24 08:00 09/22/24 08:00 09/22/24 08:00 Temperature Pulse Rate 94 94 Respiratory Rate 22 H 22 H Blood Pressure Pulse Oximetry 93 Oxygen Delivery Mechanical Ventilation Fraction of Inspired Oxygen 45 09/22/24 08:00 09/22/24 08:00 09/22/24 08:00 Temperature 37.6 C Pulse Rate 91 93 Respiratory Rate 18 Blood Pressure 99/67 L Pulse Oximetry 95 Oxygen Delivery Fraction of Inspired Oxygen 45 09/22/24 08:01 09/22/24 08:12 Temperature Pulse Rate 92 94 Respiratory Rate 24 H Blood Pressure Pulse Oximetry 96 Oxygen Delivery Mechanical Ventilation Fraction of Inspired Oxygen 45 Intake/Output Intake/Output: Intake & Output 09/19/24 09/20/24 09/21/24 09/22/24 23:59 23:59 23:59 23:59 Intake Total 8968.2 2276.6 555.4 Output Total 1075 1350 125 Balance 7893.2 926.6 430.4 Meds/Results Medications: Active Medications Generic Name Dose Route Start Last Admin Trade Name Freq PRN Reason Stop Dose Admin Acetaminophen 650 mg 09/20/24 19:03 09/21/24 11:59 Acetaminophen Elixir 325 Mg/10.15 Ml Udc PO 650 mg Q4H PRN Administration Mild Pain (1-3) or Fever Albuterol/Ipratropium 3 ml 09/22/24 08:26 Ipratropium 0.5 Mg/Albuterol Sulfate 2.5 Mg Ampul.Neb 3 Ml INHALATION Q6HRT PRN wheezing Dextrose 12.5 gm 09/20/24 03:19 Dextrose 50% 25 Gm/50 Ml Syringe IV PUSH PRN PRN Hypoglycemia Protocol Enoxaparin Sodium 40 mg 09/20/24 09:00 09/22/24 08:00 Enoxaparin 40 Mg/0.4 Ml Syringe SUB-Q 40 mg DAILY TOMY Administration Glucagon 1 mg 09/20/24 03:19 Glucagon For Inj 1 Mg Vial IM PRN PRN Hypoglycemia Protocol Glucose 15 gm 09/20/24 03:19 Glucose Oral Gel 15 Gm Of Glucse In 37.5 Gm Tube PO PRN PRN Hypoglycemia Protocol Hydrocortisone Sodium Succinate 100 mg 09/20/24 14:00 09/22/24 06:51 Hydrocortisone Sodium Succinate 100 Mg/2 Ml Vial IV PUSH 100 mg Q8HR TOMY Administration Dextrose 1,000 mls @ 100 mls/hr 09/20/24 03:19 Dextrose 5% 1,000 Ml IVPB PRN PRN Hypoglycemia Protocol Doxycycline Hyclate 100 mg in 100 mls @ 100 mls/hr 09/20/24 21:00 09/22/24 07:59 Vibramycin 100 Mg/Ns 100 Ml IVPB 100 mls/hr Q12H TOMY Administration Norepinephrine Bitartrate 8 mg in 250 mls @ 3.75 mls/hr 09/20/24 19:35 09/22/24 08:06 Levophed 8 Mg/D5w 250 Ml IV CONT Not Given .Q24H TOMY Protocol 2 MCG/MIN Fentanyl Citrate 2,500 mcg in 250 mls @ 10 mls/hr 09/20/24 21:10 09/22/24 08:00 Fentanyl 2,500 Mcg/Ns 250 Ml IV CONT 100 mcg/hr .Q25H TOMY 10 mls/hr Titration Protocol 100 MCG/HR Midazolam HCl 100 mg in 100 mls @ 5 mls/hr 09/20/24 22:10 09/22/24 08:00 Versed 100 Mg/Ns 100 Ml IV CONT 5 mg/hr .Q20H TOMY 5 mls/hr Titration Protocol 5 MG/HR Vancomycin HCl 1,000 mg in 250 mls @ 250 mls/hr 09/22/24 08:00 09/22/24 07:37 Vancomycin 1,000 Mg/Ns 250 Ml IVPB 09/22/24 08:59 250 mls/hr ONCE ONE Administration Cefepime HCl 1 gm in 50 mls @ 100 mls/hr 09/22/24 21:00 Maxipime 1 Gm/Ns 50 Ml IVPB Q12H TOMY Albumin Human 100 mls @ 60 mls/hr 09/22/24 12:00 Albutein IVPB 09/23/24 07:39 Q6HR TOMY Calcium Gluconate 2,000 mg in 100 mls @ 100 mls/hr 09/22/24 08:25 Calcium Gluc 2,000 Mg/Ns 100ml IVPB 09/22/24 09:24 ONCE ONE Insulin Aspart 4 - 8 units 09/21/24 08:40 09/22/24 07:39 Insulin Aspart (*Bkc) 100 Units/Ml SUB-Q 4 units Q4H TOMY Administration Protocol Insulin Glargine 40 units 09/22/24 09:00 09/22/24 08:32 Insulin Glargine (*Bkc) 100 Units/Ml SUB-Q Not Given QAM [facility] Insulin Glargine 10 units 09/22/24 08:32 Insulin Glargine (*Bkc) 100 Units/Ml SUB-Q 09/22/24 08:33 ONCE ONE Levothyroxine Sodium 100 mcg 09/21/24 06:30 09/22/24 06:52 Levothyroxine Sodium 100 Mcg Tablet FEED TUBE 100 mcg DAILY@0630 TOMY Administration Multi-Ingred Cream/Lotion/Oil/Oint 1 applic 09/20/24 21:00 09/22/24 07:59 Mineral Oil/White Petrolatum Ointment EACH EYE 1 applic Q12HR TOMY Administration Oseltamivir Phosphate 30 mg 09/20/24 14:10 09/22/24 07:58 Oseltamivir Phosphate 30 Mg Capsule PO 09/24/24 09:01 30 mg Q12HR TOMY Administration Pantoprazole Sodium 40 mg 09/20/24 09:00 09/22/24 07:58 Pantoprazole Sodium Iv 40 Mg Vial IV PUSH 40 mg QAM TOMY Administration Perflutren Lipid Microsphere 0 ml 09/20/24 09:10 Perflutren Lipid Microspheres 1.5 Ml Vial Diluted To 10 Ml Total Volume IV PUSH 09/23/24 09:10 ONCE PRN adequate visualization Protocol Sodium Bicarbonate 650 mg 09/21/24 09:00 09/22/24 07:58 Sodium Bicarbonate Tab 650 Mg Tablet FEED TUBE 650 mg BID TOMY Administration Sodium Chloride 10 ml 09/20/24 14:00 09/22/24 06:08 Central Line Flush IV PUSH 10 ml Q8HR TOMY Administration Sodium Chloride 20 ml 09/20/24 06:40 Central Line Flush IV PUSH PRN PRN after blood draws Vancomycin HCl 1 each 09/20/24 14:06 Vancomycin For Acute Kidney Injury IVPB PRN PRN Vancomycin Protocol Radiology Results: ITS Impressions Chest CTA 09/20/24 05:30 Impression: Bilateral multifocal pneumonia, most extensively involving the lower lobes. No pulmonary embolus seen. Abdomen X-Ray 09/20/24 05:35 Impression: NG tube in satisfactory position. Chest X-Ray 09/22/24 06:00 Impression: Stable extensive bilateral pulmonary consolidation, most compatible with diffuse pneumonia. Stable support tubes. Labs Labs: Laboratory Results - last 24 hr 09/21/24 09/21/24 09/21/24 11:15 16:53 20:07 WBC RBC Hgb Hct MCV MCH MCHC RDW Plt Count MPV Puncture Site ABG pH ABG pCO2 ABG pO2 ABG PO2/FiO2 Ratio ABG HCO3 ABG O2 Saturation ABG O2 Content ABG Base Excess A-a Gradient Oxyhemoglobin Carboxyhemoglobin Methemoglobin Reduced Hemoglobin Total Hemoglobin O2 Delivery Device O2 Liters/Min Minute Volume Vent Rate Vent Mode FiO2 Tidal Volume PEEP Peak Inspir Pressure Pressure Support Sodium Potassium Chloride Carbon Dioxide Anion Gap BUN Creatinine Estim Creat Clear Calc Estimated GFR Glucose POC Capillary Glucose 223 H 184 H 220 H Calcium Phosphorus Magnesium Total Bilirubin AST ALT Alkaline Phosphatase Total Protein Albumin Random Vancomycin 09/21/24 09/22/24 09/22/24 23:28 02:35 05:17 WBC 5.9 RBC 3.08 L Hgb 7.7 L Hct 24.8 L MCV 80.5 MCH 25.0 L MCHC 31.0 L RDW 16.5 H Plt Count 117 L MPV 11.0 H Puncture Site Right brachial ABG pH 7.204 L* ABG pCO2 42.4 ABG pO2 85.4 ABG PO2/FiO2 Ratio 1.90 ABG HCO3 16.3 L ABG O2 Saturation 94.3 L ABG O2 Content 11.0 L ABG Base Excess -10.9 A-a Gradient 187.2 Oxyhemoglobin 93.3 Carboxyhemoglobin 1.3 Methemoglobin 0.3 Reduced Hemoglobin 5.1 H Total Hemoglobin 8.3 L O2 Delivery Device Ventilator O2 Liters/Min Not Reportable Minute Volume Not Reportable Vent Rate 22 Vent Mode Cmv FiO2 45 Tidal Volume 350 PEEP 10 Peak Inspir Pressure Not Reportable Pressure Support Not Reportable Sodium 136 L Potassium 4.8 Chloride 105 Carbon Dioxide 16 L Anion Gap 15 H BUN 45 H D Creatinine 2.19 H Estim Creat Clear Calc 26 Estimated GFR 25 L Glucose 230 H POC Capillary Glucose 239 H Calcium 7.7 L Phosphorus 5.1 H Magnesium 2.3 Total Bilirubin 0.9 AST 2572 H ALT 842 H Alkaline Phosphatase 102 Total Protein 6.0 L Albumin 3.3 L Random Vancomycin 17.4 09/22/24 07:36 WBC RBC Hgb Hct MCV MCH MCHC RDW Plt Count MPV Puncture Site ABG pH ABG pCO2 ABG pO2 ABG PO2/FiO2 Ratio ABG HCO3 ABG O2 Saturation ABG O2 Content ABG Base Excess A-a Gradient Oxyhemoglobin Carboxyhemoglobin Methemoglobin Reduced Hemoglobin Total Hemoglobin O2 Delivery Device O2 Liters/Min Minute Volume Vent Rate Vent Mode FiO2 Tidal Volume PEEP Peak Inspir Pressure Pressure Support Sodium Potassium Chloride Carbon Dioxide Anion Gap BUN Creatinine Estim Creat Clear Calc Estimated GFR Glucose POC Capillary Glucose 219 H Calcium Phosphorus Magnesium Total Bilirubin AST ALT Alkaline Phosphatase Total Protein Albumin Random Vancomycin Quality VTE Prophylaxis VTE prophylaxis: pharmacologic ordered
[2024-09-22] MEDS: INSULIN GLARGINE (*BKC) 100 UNITS/ML 10 UNITS SUB-Q (08:56)
[2024-09-22] MEDS: CALCIUM GLUC 2,000 MG/NS 100ML 2,000 MG/100 ML BAG 100 MG IVPB (08:57)
[2024-09-22 09:53] LABS: Hepatitis B Surface Antigen Negative (Negative)
[2024-09-22 09:58] LABS: HAV RESULT Negative (Negative); Hepatitis B Core IgM Result Negative (Negative)
[2024-09-22 10:10] LABS: Hepatitis C Virus Antibody Negative (Negative)
--- NOTE | 2024-09-22 10:42 | P.CONNP_ITS ---
Assessment and Plan Assessment and plan (1) SCAR (acute kidney injury): Code(s): N17.9 - Acute kidney failure, unspecified Status: Acute Assessment and Plan: * as noted in the last 24 hours/today (09/22) * normal creatinine at baseline * multifactorial etiology: * prerenal factors * insensible losses (from high fevers on admission) * hemodynamic instability/shock * sepsis/infection (pneumonia + influenza) * contrast (CTA chest on 09/20) * other(?) * evaluation noted: * urine electrolytes prerenal * CPK okay * renal ultrasound pending * no critical electrolytes but concerning the drop in urine output and metabolic acidosis * hence, remains at risk for needing HAND CROCHETER/dialysis * follow trend of repeat labs and UOP (2) Septic shock: Code(s): A41.9 - Sepsis, unspecified organism; R65.21 - Severe sepsis with septic shock Status: Acute Assessment and Plan: * presumably due to pneumonia and possibly influenza * s/p fluid resuscitation and IV albumin * on vasopressor therapy - wean as tolerated * follow culture data * on stress stress dose steroids * on antibiotics * follow trend of hemodynamics (3) Acute hypoxic respiratory failure: Code(s): J96.01 - Acute respiratory failure with hypoxia Status: Acute Assessment and Plan: * due to pneumonia and influenza * imaging noted: * chest CTA (on 09/20): bilateral multifocal pneumonia, most extensively involving the lower lobes; no pulmonary embolus seen * intubated in the ER for airway protection and ongoing hypoxic respiratory failure unresponsive to BiPAP therapy * remains on full mechanical ventilation * weaning when more stable (4) Influenza: Code(s): J11.1 - Influenza due to unidentified influenza virus with other respiratory manifestations Status: Acute Assessment and Plan: * as noted by testing in the ER * resiratory isolation * on Tamiflu (5) PNA (pneumonia): Code(s): J18.9 - Pneumonia, unspecified organism Status: Acute Assessment and Plan: * see #2 (6) Anemia, unspecified: Code(s): D64.9 - Anemia, unspecified Status: Acute Assessment and Plan: * related to SCAR and acute illness * PRBC transfusion per protocol * consider EMANUEL given renal dysfunction * follow trend of H/H (7) Metabolic acidosis: Code(s): E87.20 - Acidosis, unspecified Status: Acute Assessment and Plan: * due to SCAR and possibly mild lactic acidosis (on admission) * s/p IVF resuscitation * on bicarbonate per tube to compensate * follow CO2 levels (8) Shock liver: Code(s): K72.00 - Acute and subacute hepatic failure without coma Status: Acute Assessment and Plan: * as noted by elevated AST and ALT * alkaline phosphatase and bilirubin normal * slow improvement noted * RUQ ultrasound noted: * gallbladder wall thickening * no evidence of gallstones * fatty infiltration of the liver * negative hepatitis panel * follow trend (9) Thrombocytopenia: Code(s): D69.6 - Thrombocytopenia, unspecified Status: Acute Assessment and Plan: * downward trend of platelets noted since admission * probably related to sepsis/infection and possibly medications and fluid shifts * using SCDs instead of lovenox/heparin for DVT prophylaxis * follow trend (10) Uncontrolled diabetes mellitus: Status: Acute Assessment and Plan: * follow accu-cheks * glycemic control per intensivisit I will continue to follow the patient with you while she remains hospitalized and make further recommendations as deemed necessary. Thank you for allowing me to participate in the care of this patient. L History of Present Illness Reason for Consult Consult date: 09/23/24 Reason for consult: acute renal failure Chief Complaint Chief complaint: pneumonia Review of Systems 2 Review of Systems: As per HPI. [facility] Past Medical History Medical History Diabetic ketoacidosis Hypothyroidism Latent autoimmune diabetes in adults, managed as type 1 (2020) 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), managed as type 1 Raynauds disease Viramontes syndrome Low vitamin B12 level Menorrhagia Anemia, unspecified Surgical History Surgical History History of tubal ligation Family History Family History Grandparent ALS (amyotrophic lateral sclerosis) Sibling Diabetes mellitus Father Hypertension Cerebrovascular accident Acute myocardial infarction Social History Social History Smoking packs per day: 0.5 Smoking cigarettes per day: 10.0 Years smoked: 20 Smoking pack-years: 10.00 Smoking status: Smoker, status unknown Tobacco type: cigarettes Second hand tobacco smoke exposure: No Alcohol intake: unknown Substance use: unknown Substance use type: unknown Do You Feel Safe in your Home?: Yes Lack of Transportation: No Lack of Food: Never True Current Housing: I Have Housing Concerned About Future Housing: No Difficulty Paying Gas/Electric Bills: No Difficulty Paying for Meds: No Currently Unemployed: No Education: Decline to Answer Difficulty w/ Childcare or Family Care: No Additional living arrangements comments: . Has 2 sons. 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. Spiritual care concerns: No Meds Home Medications and Allergies Home Medications ?Medication ?Instructions ?Recorded ?Confirmed ?Type blood-glucose meter,continuous #1 ea 02/11/23 08/06/24 Rx (Dexcom G6 Double Cutter) blood-glucose sensor (Dexcom G6 #9 ea 02/11/23 08/06/24 Rx Sensor device) glucagon 1 mg/0.2 mL subcutaneous 1 mg (0.2 mL) subcut ONCE #0.4 mL 02/11/23 09/20/24 Rx auto-injector (GvGetO2 HypoPen 2-Pack) insulin pump cart,automated,BT #45 ea 02/11/23 08/06/24 Rx (Omnipod 5 G6 Pods (Gen 5) subcutaneous cartridge) insulin pump cartridge,automated #1 ea 02/11/23 08/06/24 Rx dose,BT with controller subcutaneous (Omnipod 5 G6 Intro Kit (Gen 5) subcutaneous cartridge with controller) insulin lispro 100 unit/mL 90 unit (0.9 mL) subcut DAILY #10 03/31/24 09/20/24 Rx subcutaneous solution mL insulin lispro 100 unit/mL 90 unit (0.9 mL) subcut DAILY #10 04/25/24 09/20/24 Rx subcutaneous solution mL levothyroxine 100 mcg tablet 100 mcg PO QAM 08/06/24 09/20/24 History Allergies Allergy/AdvReac Type Severity Reaction Status Date / Time lactose AdvReac Diarrhea Verified 08/06/24 10:56 Vital Signs Vital Signs Temp Pulse Resp BP Pulse Ox O2 Del Method FiO2 09/22/24 10:00 99.3 F 90 25 H 98/67 L 97 09/22/24 10:00 90 09/22/24 10:00 90 25 H 09/22/24 10:00 90 25 H 09/22/24 10:00 90 98/67 L 02/21/25 08:12 94 24 H 09/22/24 08:01 92 96 Mechanical Ventilation 45 09/22/24 08:00 99.6 F 93 18 99/67 L 95 09/22/24 08:00 45 09/22/24 08:00 91 09/22/24 08:00 93 Mechanical Ventilation 45 09/22/24 08:00 94 22 H 09/22/24 08:00 94 22 H 09/22/24 08:00 94 99/67 L 09/22/24 07:35 92 107/73 09/22/24 06:00 92 09/22/24 06:00 94 22 H 09/22/24 06:00 94 22 H 09/22/24 06:00 94 09/22/24 06:00 98.3 F 92 21 H 107/72 95 09/22/24 05:05 93 97 Mechanical Ventilation 45 09/22/24 04:00 92 09/22/24 04:00 94 22 H 09/22/24 04:00 94 22 H 09/22/24 04:00 94 09/22/24 04:00 97.8 F 94 24 H 108/66 97 09/22/24 04:00 90 26 H 99 Mechanical Ventilation 50 09/22/24 04:00 50 09/22/24 02:20 90 22 H 09/22/24 02:10 88 22 H 09/22/24 02:00 94 09/22/24 02:00 91 20 09/22/24 02:00 90 09/22/24 02:00 97 F L 94 16 99/67 L 96 09/22/24 01:55 88 100 Mechanical Ventilation 50 09/22/24 01:33 90 22 H 09/22/24 00:08 89 100 Mechanical Ventilation 50 09/22/24 00:00 88 09/22/24 00:00 98.8 F 90 22 H 100/69 100 09/22/24 00:00 90 26 H 99 Mechanical Ventilation 50 09/22/24 00:00 50 09/22/24 00:00 90 22 H 09/22/24 00:00 90 22 H 09/22/24 00:00 90 09/21/24 22:00 90 22 H 09/21/24 22:00 91 22 H 09/21/24 22:00 90 09/21/24 22:00 90 09/21/24 22:00 99.5 F 90 22 H 96/66 L 100 09/21/24 21:04 90 26 H 09/21/24 20:59 90 26 H 09/21/24 20:59 90 99 Mechanical Ventilation 50 09/21/24 20:27 99.2 F 90 22 H 92/59 L 100 09/21/24 20:17 91 22 H 09/21/24 20:17 92 92/60 L 09/21/24 20:00 90 09/21/24 20:00 90 26 H 99 Mechanical Ventilation 50 09/21/24 20:00 50 09/21/24 19:24 91 25 H 09/21/24 19:23 91 25 H 09/21/24 18:00 99.4 F 93 12 90/57 L 98 09/21/24 18:00 93 09/21/24 18:00 94 22 H 09/21/24 18:00 93 22 H 09/21/24 18:00 93 90/57 L 09/21/24 17:46 93 89/53 L 09/21/24 17:08 95 98 Mechanical Ventilation 50 09/21/24 16:00 99.7 F H 97 25 H 95/59 L 96 09/21/24 16:00 97 09/21/24 16:00 97 95/59 L 09/21/24 16:00 97 25 H 09/21/24 16:00 97 25 H 09/21/24 16:00 50 09/21/24 16:00 Mechanical Ventilation 50 09/21/24 14:20 98 86/49 L 09/21/24 14:20 98 27 H 09/21/24 14:13 96 97 Mechanical Ventilation 50 09/21/24 14:11 97 25 H 09/21/24 14:00 100.1 F H 98 24 H 89/56 L 97 09/21/24 14:00 98 09/21/24 14:00 98 22 H 09/21/24 14:00 98 22 H 09/21/24 14:00 98 87/59 L Exam 2 Narrative: GENERAL APPEARANCE: well developed well nourished female intubated/sedated and on mechanical ventilation HEENT: normocephalic, atraumatic, normal conjunctiva and sclera, nares patient NECK: no lymphadenopathy, thyromegaly, or JVD MOUTH: normal lips, teeth, and gums; ETT in place CARDIOVASCULAR: RRR, normal S1 and S2, no rub detected RESPIRATORY: coarse breath sounds ABDOMEN: soft, nontender, nondistended, decreased bowel sounds present EXTREMITIES: no evidence of cyanosis, clubbing, or edema NEUROLOGICAL: unable to assess Results Lab Results 09/23/24 05:08 09/23/24 05:08 Lab results: Most recent lab results ABG pH 7.204 (7.350-7.450) L* 09/22/24 05:17 ABG pCO2 42.4 mmHg (35.0-45.0) 09/22/24 05:17 ABG pO2 85.4 mmHg (80.0-100.0) 09/22/24 05:17 ABG HCO3 16.3 mEq/l (22.0-26.0) L 09/22/24 05:17 ABG O2 Saturation 94.3 % (95.0-100.0) L 09/22/24 05:17 Calcium 7.7 mg/dL (8.4-10.2) L 09/22/24 02:35 Phosphorus 5.1 mg/dL (2.5-4.5) H 09/22/24 02:35 Magnesium 2.3 mg/dL (1.6-2.3) 09/22/24 02:35 Urine Creatinine 201.4 mg/dL 09/20/24 11:31
--- NOTE | 2024-09-22 10:53 | PCNFU ---
Nutrition Follow-Up Complete: Suboptimal Energy Intake as related to mechanical ventilation as evidenced by NPO. Meet estimated nutritional needs. - Progressing with tube feeding Goal: Pt current nutrition is Glucerna 1.2 @ 40 ml/h with flushes 30 ml q 4 hours. Nutrition recommendation: Advance to goal rate Glucerna 1.2 @ 60 ml/h as tolerated Last recorded weight is 62.3 kg. Up from 59.9 at admission Bowel Motility: +2 BMs 09/21/24 Labs Reviewed: Hgb 7.7, Hct 24.8, Alb 3.3, Na 136, BUN 45, Cre 2.19, Glu 230, MAP 77 Meds Noted: Fentanyl, versed. Levophed decreasing, 2mcg. Lantus, novolog Skin:No skin issues Additional Notes: Remains on vent day 2. Increased TF from 20 ml to 40 ml, with goal of 60 ml/h. Tolerating. Glucerna 1.2 @ goal rate 60 ml/h provides 1584 kcal, 99 g protein, 1070 ml free water. To meet needs @ 26 kcal/kg, 1.6 g protein/kg. Adequate for needs while ventilated, target advance to goal by vent day 4. Continue to monitor Will monitor weight, labs, skin, diet order, meds every Wednesday and Wednesday.
[2024-09-22 11:51] LABS: Glucose Point of Care 171 mg/dl (65-105)
[2024-09-22] MEDS: ALBUMIN HUMAN 25% 25 GM/100 ML 100 ML IVPB ×2 (12:04→17:04)
[2024-09-22] MEDS: MIDAZOLAM 100MG/NS 100ML(*CRX) 100 MG/100 ML BAG IV CONT (15:38)
[2024-09-22 16:37] LABS: Glucose Point of Care 179 mg/dl (65-105)
[2024-09-22] MEDS: CEFEPIME 1 GM/NS 50 ML 1 GM/50 ML BAG IVPB (20:24)
[2024-09-22 20:55] LABS: Glucose Point of Care 229 mg/dl (65-105)
[2024-09-22 23:58] LABS: Glucose Point of Care 248 mg/dl (65-105)
[2024-09-23] VITALS (32 sets, daily range): BP systolic 100–116; BP diastolic 61–85; PULSE 82–99; RESP 18–27; TEMP 36.6–38.1; O2SAT 87–96
[2024-09-23 00:14] LABS: Creatinine Urine 136.3 mg/dL; Creatinine Urine 136.9 mg/dL; Total Protein Urine Random 76 mg/dL; Total Protein Urine Random 77 mg/dL; Ur Ttl Prot Creatinine Ratio 0.56 mg/mg (0-0.20); Urea Random Urine 296 MG/DL
[2024-09-23 00:17] LABS: Sodium Urine Random 9 meq/L
[2024-09-23] MEDS: ALBUMIN HUMAN 25% 25 GM/100 ML 100 ML IVPB ×2 (00:34→05:17)
[2024-09-23 01:37] LABS: Eosinophil Urine None Seen % (None Seen); Urine Eos QC 2nd Tech Confirmed
[2024-09-23] MEDS: INSULIN ASPART (*BKC) 100 UNITS/ML SUB-Q ×3 (02:24→12:35)
[2024-09-23 02:26] LABS: Glucose Point of Care 266 mg/dl (65-105)
[2024-09-23] MEDS: FENTANYL 2,500MCG/NS250ML(*CRX 2,500 MCG/250 ML BAG 10 MCG IV CONT (02:33)
[2024-09-23 05:14] LABS: Hematocrit 23.4 % (37.0-47.0); Hemoglobin 7.3 g/dL (12.0-15.0); Immature Platelet Fraction Pct 7.8 % (0.9-11.2); Mean Corpuscular HGB Conc 31.2 g/dl (32-36); Mean Corpuscular Hemoglobin 24.8 pg (26-34); Mean Corpuscular Volume 79.6 fl (80-100); Mean Platelet Volume 11.8 fl (7.4-10.4); Platelet Count Result 60 k/mm3 (150-375); Red Blood Count 2.94 M/mm3 (4.2-5.4); White Blood Count 7.1 K/mm3 (4.5-10.0)
[2024-09-23] MEDS: HYDROCORTISONE SODIUM SUCCINATE 100 MG/2 ML VIAL IV PUSH (05:17)
[2024-09-23] MEDS: CENTRAL LINE FLUSH 10 ML IV PUSH ×3 (05:17→20:54)
[2024-09-23] MEDS: LEVOTHYROXINE SODIUM 100 MCG TABLET FEED TUBE (05:17)
[2024-09-23 05:24] LABS: Albumin Level 3.6 g/dL (3.5-5.1); Alkaline Phosphatase 446 U/L (38-126); Anion Gap 17 mmol/L (4-12); Bilirubin,Total 1.7 mg/dL (0.2-1.3); Blood Urea Nitrogen 78 mg/dL (7-17); Carbon Dioxide 17 mmol/L (22-30); Chloride 105 mmol/L (98-107); Estimated CRCL calculation 23 ml/min; Estimated Glomerular Filt Rate 22; Glucose 226 mg/dL (65-110); Magnesium 2.5 mg/dL (1.6-2.3); Phosphorus 5.1 mg/dL (2.5-4.5); Potassium 4.9 mmol/L (3.4-5.0); Sodium 139 mmol/L (137-145)
[2024-09-23 05:33] LABS: Alanine Aminotransferase 846 U/L (6-35)
[2024-09-23 05:46] LABS: Aspartate Amino Transferase 2294 U/L (14-36)
[2024-09-23 05:49] LABS: Alveolar/Arterial O2 Gradient 188.7 mmHg; Base Excess ABG -8.8 mEq/l (+/-2.0); Carboxyhemoglobin 1.6 % THb (0-2.0); Fractional Inspired Oxygen 45 %; HCO3 ABG 16.2 mEq/l (22.0-26.0); Methemoglobin ABG 0.3 %THb (0-1.5); Oxygen Content ABG 10.1 %vol (16.0-22.0); Oxygen Saturation ABG 97.1 % (95.0-100.0); Oxyhemoglobin 95.4 % THb (90.0-100.0); PO2 ABG 96.9 mmHg (80.0-100.0); PO2 FiO2 Ratio Arterial Blood 2.15 %; Reduced Hemoglobin 2.7 %THb (0-5.0); pH ABG 7.335 (7.350-7.450)
[2024-09-23 05:54] LABS: Site Drawn LEFT RADIAL; Total Hemoglobin 7.4 g/dL (12.0-18.0)
[2024-09-23 05:55] LABS: Arterial Blood Gas PEEP 10 cmH2O; Arterial Blood Gas Vent Mode CMV; Arterial Blood Gas Ventilator rate 18 /MIN; Device VENTILATOR; Modified Allen's Test Pass
[2024-09-23 05:56] LABS: Arterial Blood Gas Tidal Volume 350 ml
[2024-09-23 06:14] LABS: Glucose Point of Care 231 mg/dl (65-105)
[2024-09-23 07:50] LABS: Glucose Point of Care 194 mg/dl (65-105)
--- NOTE | 2024-09-23 08:23 | P.PNINT_ITS ---
Progress Note: A&P Assessment and Plan (1) Acute hypoxic respiratory failure: Code(s): J96.01 - Acute respiratory failure with hypoxia Status: Acute Assessment and Plan: Acute respiratory failure secondary to influenza A and pneumonia CTA chest Bilateral multifocal pneumonia, most extensively involving the lower lobes. No pulmonary embolus seen. Patient now intubated and on mechanical ventilation ABG reviewed. Peep is at 10 FiO2 45%. Continue to wean FiO2 Continue sedation with Versed and fentanyl Bronchodilators (2) Uncontrolled diabetes mellitus: Status: Acute Assessment and Plan: SSI Continue Lantus to 40 Continue tube feeds (3) Septic shock: Code(s): A41.9 - Sepsis, unspecified organism; R65.21 - Severe sepsis with septic shock Status: Acute Assessment and Plan: Septic shock secondary to pneumonia Hold further IV fluids Off vasopressor Start weaning Stress dose hydrocortisone Continue Bicarb per tube for acidosis Blood cultures are negative till now Sputum cultures growing Staph aureus Currently on vancomycin, cefepime and doxycycline (4) PNA (pneumonia): Code(s): J18.9 - Pneumonia, unspecified organism Status: Acute Assessment and Plan: See above (5) Hypothyroidism: Code(s): E03.9 - Hypothyroidism, unspecified Status: Acute Assessment and Plan: Continue levothyroxine Normal TSH (6) Influenza: Code(s): J11.1 - Influenza due to unidentified influenza virus with other respiratory manifestations Status: Acute Assessment and Plan: Isolation Tamiflu (7) SCAR (acute kidney injury): Code(s): N17.9 - Acute kidney failure, unspecified Status: Acute Assessment and Plan: Patient presented with elevated creatinine which initially improved with fluids but now back up to 2.19 This is likely multifactorial secondary to sepsis, shock possible contrast induced injury. Patient is also on medications including vancomycin Normal CK Renal ultrasound showed normal kidney without hydronephrosis Nephrology consult Lasix IV x1 Monitor urine output electrolytes and creatinine May need [employer] if kidney function does not improve (8) Shock liver: Code(s): K72.00 - Acute and subacute hepatic failure without coma Status: Acute Assessment and Plan: Elevated AST and ALT likely secondary to shock liver and coli status is secondary to sepsis and shock AST improved, ALT still elevated. Alkaline phosphatase and bilirubin normal US right upper quadrant ultrasound shows gallbladder wall thickening nonspecific no evidence of gallstones. Fatty infiltration of the liver Negative hepatitis healthcare facility administrator levels (9) Thrombocytopenia: Code(s): D69.6 - Thrombocytopenia, unspecified Status: Acute Assessment and Plan: Gradual in platelet count since admission likely multifactorial secondary to sepsis medications and hemodilution Hold Lovenox Monitor Plan DVT prophylaxis -hold Lovenox due to thrombocytopenia, SCD Stress ulcer prophylaxis -Protonix Nutrition - advance tube feed Code Status - Full Code Total Critical Care Time -35 minutes Due to a high probability of clinically significant, life threatening deterioration, the patient required my highest level of preparedness to intervene emergently and I personally spent this critical care time directly and personally managing the patient. This critical care time included obtaining a history; examining the patient; pulse oximetry; ordering and review of studies; arranging urgent treatment with development of a management plan; evaluation of patient's response to treatment; frequent reassessment; and discussions with other providers. It was exclusive of separately billable procedures and treating other patients and teaching time. Please see Assessment and Plan section and the rest of the note for further information on patient assessment and treatment Subjective Date/time seen: 09/23/24 Overnight events reviewed. Afebrile Continues to be on mechanical ventilation 45% FiO2 and 10 of PEEP Vasopressors weaned off Continues to be sedated with fentanyl and Versed Tolerating tube feeds Low urine out Review of Systems Review of Systems: ROS unobtainable: Yes unobtainable due to endotracheal tube, unobtainable due to medical condition and unobtainable due to mental status Exam Narrative: General: Pt is sedated, intubated and on mechanical ventilation Lungs/Chest: Trachea central Coarse BS B/L, No crackles or wheezing. Cardiac: RRR. Normal S1 S2. No murmurs Circulation: Pedal pulses are weak but palpable, feet are much warmer today and the mottling of the skin of both hands and feet appears improved as compared to yesterday Abdomen: Decreased bowel sounds. Soft. NT. ND. Extremities: No clubbing, cyanosis or edema. Warm : Leach in place Neurologic: Unable to assess due to sedation. Moves all 4 extremities to painful stimuli. PERRL Objective Data Vital Signs Vital Signs: Vital Signs - 24 hr 09/22/24 10:00 09/22/24 10:00 09/22/24 10:00 Temperature Pulse Rate 90 90 90 Respiratory Rate 25 H 25 H Blood Pressure 98/67 L Pulse Oximetry Oxygen Delivery Fraction of Inspired Oxygen 09/22/24 10:00 09/22/24 10:00 09/22/24 11:01 Temperature 37.4 C Pulse Rate 90 90 92 Respiratory Rate 25 H Blood Pressure 98/67 L Pulse Oximetry 97 96 Oxygen Delivery Mechanical Ventilation Fraction of Inspired Oxygen 45 09/22/24 12:00 09/22/24 12:00 09/22/24 12:00 Temperature Pulse Rate 91 91 91 Respiratory Rate 19 19 Blood Pressure 97/65 L Pulse Oximetry Oxygen Delivery Fraction of Inspired Oxygen 09/22/24 12:00 09/22/24 12:00 09/22/24 12:00 Temperature Pulse Rate 90 Respiratory Rate Blood Pressure Pulse Oximetry 96 Oxygen Delivery Mechanical Ventilation Fraction of Inspired Oxygen 45 45 09/22/24 12:00 09/22/24 13:45 09/22/24 13:47 Temperature 37.4 C Pulse Rate 90 87 92 Respiratory Rate 17 24 H Blood Pressure 94/65 L Pulse Oximetry 96 93 Oxygen Delivery Mechanical Ventilation Fraction of Inspired Oxygen 45 09/22/24 14:00 09/22/24 14:00 09/22/24 14:00 Temperature 36.6 C Pulse Rate 90 89 89 Respiratory Rate 22 H 22 H Blood Pressure 97/58 L Pulse Oximetry 92 Oxygen Delivery Fraction of Inspired Oxygen 09/22/24 14:00 09/22/24 14:00 09/22/24 15:24 Temperature Pulse Rate 89 89 87 Respiratory Rate 22 H 19 Blood Pressure 97/58 L Pulse Oximetry Oxygen Delivery Fraction of Inspired Oxygen 09/22/24 15:38 09/22/24 16:00 09/22/24 16:00 Temperature Pulse Rate 87 88 Respiratory Rate 19 Blood Pressure Pulse Oximetry 92 Oxygen Delivery Mechanical Ventilation Fraction of Inspired Oxygen 45 09/22/24 16:00 09/22/24 16:00 09/22/24 16:00 Temperature 37.1 C Pulse Rate 88 88 Respiratory Rate 17 17 Blood Pressure 93/68 L Pulse Oximetry 92 Oxygen Delivery Fraction of Inspired Oxygen 45 09/22/24 16:00 09/22/24 16:00 09/22/24 16:47 Temperature Pulse Rate 88 88 92 Respiratory Rate 17 Blood Pressure 93/68 L Pulse Oximetry 93 Oxygen Delivery Mechanical Ventilation Fraction of Inspired Oxygen 45 09/22/24 18:00 09/22/24 18:00 09/22/24 18:00 Temperature Pulse Rate 84 85 85 Respiratory Rate 21 H 24 H Blood Pressure 98/66 L Pulse Oximetry Oxygen Delivery Fraction of Inspired Oxygen 09/22/24 18:00 09/22/24 18:00 09/22/24 19:46 Temperature 36.9 C Pulse Rate 85 85 Respiratory Rate 24 H Blood Pressure 98/66 L Pulse Oximetry 93 Oxygen Delivery Fraction of Inspired Oxygen 45 09/22/24 20:00 09/22/24 20:00 09/22/24 20:00 Temperature 37.1 C Pulse Rate 85 85 84 Respiratory Rate 24 H 24 H 21 H Blood Pressure 101/65 Pulse Oximetry 95 95 Oxygen Delivery Mechanical Ventilation Fraction of Inspired Oxygen 45 09/22/24 20:00 09/22/24 20:00 09/22/24 20:00 Temperature Pulse Rate 85 85 84 Respiratory Rate 21 H Blood Pressure Pulse Oximetry Oxygen Delivery Fraction of Inspired Oxygen 09/22/24 21:21 09/22/24 21:49 09/22/24 21:53 Temperature Pulse Rate 84 85 86 Respiratory Rate 21 H 21 H Blood Pressure Pulse Oximetry 95 Oxygen Delivery Mechanical Ventilation Fraction of Inspired Oxygen 45 09/22/24 21:58 09/22/24 22:00 09/22/24 22:00 Temperature 37.2 C Pulse Rate 84 85 83 Respiratory Rate 24 H Blood Pressure 98/72 L 100/74 Pulse Oximetry 94 Oxygen Delivery Fraction of Inspired Oxygen 09/22/24 23:35 09/23/24 00:00 09/23/24 00:00 Temperature 37.3 C Pulse Rate 82 84 Respiratory Rate 24 H Blood Pressure 102/73 Pulse Oximetry 94 95 Oxygen Delivery Mechanical Ventilation Fraction of Inspired Oxygen 45 45 09/23/24 00:00 09/23/24 00:00 09/23/24 00:33 Temperature Pulse Rate 85 85 82 Respiratory Rate 24 H 21 H Blood Pressure Pulse Oximetry 95 Oxygen Delivery Mechanical Ventilation Fraction of Inspired Oxygen 45 09/23/24 00:34 09/23/24 00:35 09/23/24 02:00 Temperature 36.6 C Pulse Rate 83 83 85 Respiratory Rate 21 H 24 H Blood Pressure 107/68 103/70 Pulse Oximetry 95 Oxygen Delivery Fraction of Inspired Oxygen 09/23/24 02:00 09/23/24 02:33 09/23/24 02:33 Temperature Pulse Rate 84 84 84 Respiratory Rate 21 H 21 H Blood Pressure Pulse Oximetry Oxygen Delivery Fraction of Inspired Oxygen 09/23/24 02:33 09/23/24 02:33 09/23/24 03:13 Temperature Pulse Rate 84 84 86 Respiratory Rate 21 H Blood Pressure 102/70 Pulse Oximetry 94 Oxygen Delivery Mechanical Ventilation Fraction of Inspired Oxygen 45 09/23/24 04:00 09/23/24 04:00 09/23/24 04:00 Temperature Pulse Rate 85 89 Respiratory Rate 24 H Blood Pressure Pulse Oximetry 95 Oxygen Delivery Mechanical Ventilation Fraction of Inspired Oxygen 45 45 09/23/24 04:00 09/23/24 04:28 09/23/24 04:30 Temperature 37.4 C Pulse Rate 89 86 90 Respiratory Rate 21 H 21 H 21 H Blood Pressure 104/68 Pulse Oximetry 94 Oxygen Delivery Fraction of Inspired Oxygen 09/23/24 04:30 09/23/24 06:00 09/23/24 06:00 Temperature 37.7 C H Pulse Rate 85 87 87 Respiratory Rate 21 H Blood Pressure 109/76 Pulse Oximetry 94 Oxygen Delivery Fraction of Inspired Oxygen 09/23/24 06:23 09/23/24 06:23 09/23/24 06:24 Temperature Pulse Rate 90 84 90 Respiratory Rate 21 H 21 H Blood Pressure Pulse Oximetry Oxygen Delivery Fraction of Inspired Oxygen 09/23/24 08:00 09/23/24 08:07 Temperature 37.3 C Pulse Rate 92 92 Respiratory Rate 22 H Blood Pressure 100/67 Pulse Oximetry 90 90 Oxygen Delivery Mechanical Ventilation Fraction of Inspired Oxygen 45 Intake/Output Intake/Output: Intake & Output 09/20/24 09/21/24 09/22/24 09/23/24 23:59 23:59 23:59 23:59 Intake Total 8968.2 2276.6 1686.2 766.8 Output Total 1075 1350 525 50 Balance 7893.2 926.6 1161.2 716.8 Meds/Results Medications: Active Medications Generic Name Dose Route Start Last Admin Trade Name Freq PRN Reason Stop Dose Admin Acetaminophen 650 mg 09/20/24 19:03 09/21/24 11:59 Acetaminophen Elixir 325 Mg/10.15 Ml Udc PO 650 mg Q4H PRN Administration Mild Pain (1-3) or Fever Albuterol/Ipratropium 3 ml 09/22/24 08:26 Ipratropium 0.5 Mg/Albuterol Sulfate 2.5 Mg Ampul.Neb 3 Ml INHALATION Q6HRT PRN wheezing Dextrose 12.5 gm 09/20/24 03:19 Dextrose 50% 25 Gm/50 Ml Syringe IV PUSH PRN PRN Hypoglycemia Protocol Enoxaparin Sodium 40 mg 09/20/24 09:00 09/22/24 08:00 Enoxaparin 40 Mg/0.4 Ml Syringe SUB-Q 40 mg DAILY TOMY Administration Glucagon 1 mg 09/20/24 03:19 Glucagon For Inj 1 Mg Vial IM PRN PRN Hypoglycemia Protocol Glucose 15 gm 09/20/24 03:19 Glucose Oral Gel 15 Gm Of Glucse In 37.5 Gm Tube PO PRN PRN Hypoglycemia Protocol Hydrocortisone Sodium Succinate 100 mg 09/20/24 14:00 09/23/24 05:17 Hydrocortisone Sodium Succinate 100 Mg/2 Ml Vial IV PUSH 100 mg Q8HR TOMY Administration Dextrose 1,000 mls @ 100 mls/hr 09/20/24 03:19 Dextrose 5% 1,000 Ml IVPB PRN PRN Hypoglycemia Protocol Doxycycline Hyclate 100 mg in 100 mls @ 100 mls/hr 09/20/24 21:00 09/22/24 20:24 Vibramycin 100 Mg/Ns 100 Ml IVPB 100 mls/hr Q12H TOMY Administration Norepinephrine Bitartrate 8 mg in 250 mls @ 0 mls/hr 09/20/24 19:35 09/23/24 06:23 Levophed 8 Mg/D5w 250 Ml IV CONT 0 mcg/min .Q0M TOMY 0 mls/hr Titration Protocol 0 MCG/MIN Fentanyl Citrate 2,500 mcg in 250 mls @ 10 mls/hr 09/20/24 21:10 09/23/24 06:24 Fentanyl 2,500 Mcg/Ns 250 Ml IV CONT 100 mcg/hr .Q25H TOMY 10 mls/hr Titration Protocol 100 MCG/HR Midazolam HCl 100 mg in 100 mls @ 5 mls/hr 09/20/24 22:10 09/23/24 06:23 Versed 100 Mg/Ns 100 Ml IV CONT 5 mg/hr .Q20H TOMY 5 mls/hr Titration Protocol 5 MG/HR Cefepime HCl 1 gm in 50 mls @ 100 mls/hr 09/22/24 21:00 09/22/24 20:24 Maxipime 1 Gm/Ns 50 Ml IVPB 100 mls/hr Q12H TOMY Administration Insulin Aspart 4 - 8 units 09/21/24 08:40 09/23/24 05:24 Insulin Aspart (*Bkc) 100 Units/Ml SUB-Q 4 units Q4H TOMY Administration Protocol Insulin Glargine 40 units 09/22/24 09:00 09/22/24 08:32 Insulin Glargine (*Bkc) 100 Units/Ml SUB-Q Not Given QAM TOMY Levothyroxine Sodium 100 mcg 09/21/24 06:30 09/23/24 05:17 Levothyroxine Sodium 100 Mcg Tablet FEED TUBE 100 mcg DAILY@0630 TOMY Administration Multi-Ingred Cream/Lotion/Oil/Oint 1 applic 09/20/24 21:00 09/22/24 20:25 Mineral Oil/White Petrolatum Ointment EACH EYE 1 applic Q12HR TOMY Administration Oseltamivir Phosphate 30 mg 09/20/24 14:10 09/22/24 20:25 Oseltamivir Phosphate 30 Mg Capsule PO 09/24/24 09:01 30 mg Q12HR TOMY Administration Pantoprazole Sodium 40 mg 09/20/24 09:00 09/22/24 07:58 Pantoprazole Sodium Iv 40 Mg Vial IV PUSH 40 mg QAM TOMY Administration Perflutren Lipid Microsphere 0 ml 09/20/24 09:10 Perflutren Lipid Microspheres 1.5 Ml Vial Diluted To 10 Ml Total Volume IV PUSH 09/23/24 09:10 ONCE PRN adequate visualization Protocol Sodium Bicarbonate 650 mg 09/21/24 09:00 09/22/24 17:04 Sodium Bicarbonate Tab 650 Mg Tablet FEED TUBE 650 mg BID TOMY Administration Sodium Chloride 10 ml 09/20/24 14:00 09/23/24 05:17 Central Line Flush IV PUSH 10 ml Q8HR TOMY Administration Sodium Chloride 20 ml 09/20/24 06:40 Central Line Flush IV PUSH PRN PRN after blood draws Vancomycin HCl 1 each 09/20/24 14:06 Vancomycin For Acute Kidney Injury IVPB PRN PRN Vancomycin Protocol Radiology Results: ITS Impressions Chest CTA 09/20/24 05:30 Impression: Bilateral multifocal pneumonia, most extensively involving the lower lobes. No pulmonary embolus seen. Abdomen X-Ray 09/20/24 05:35 Impression: NG tube in satisfactory position. Abdomen Ultrasound 09/22/24 15:02 IMPRESSION: 1: Gallbladder wall thickening, nonspecific. No evidence for gallstones. 2: Fatty infiltration of the liver. Renal Ultrasound 09/22/24 15:14 IMPRESSION: 1. Normal kidneys without hydronephrosis. Chest X-Ray 09/23/24 06:34 IMPRESSION: 1. Slight decrease in diffuse patchy bilateral airspace opacities which could represent improving pulmonary edema and/or pneumonia. Labs Labs: Laboratory Results - last 24 hr 09/20/24 09/22/24 09/22/24 02:29 02:35 11:41 WBC RBC Hgb Hct MCV MCH MCHC RDW Plt Count MPV % Immature Plt Fraction Puncture Site ABG pH ABG pCO2 ABG pO2 ABG PO2/FiO2 Ratio ABG HCO3 ABG O2 Saturation ABG O2 Content ABG Base Excess A-a Gradient Oxyhemoglobin Carboxyhemoglobin Methemoglobin Reduced Hemoglobin Total Hemoglobin O2 Delivery Device O2 Liters/Min Minute Volume Vent Rate Vent Mode FiO2 Tidal Volume PEEP Peak Inspir Pressure Pressure Support Sodium Potassium Chloride Carbon Dioxide Anion Gap BUN Creatinine Estim Creat Clear Calc Estimated GFR Glucose POC Capillary Glucose 171 H Calcium Phosphorus Magnesium Total Bilirubin AST ALT Alkaline Phosphatase Total Protein Albumin Urine Eosinophils U Random Total Protein Ur Random Sodium Ur Random Urea Urine Creatinine Protein/Creat Ratio 2 Fentanyl Negative Urine Norfentanyl Negative Hepatitis A IgM Ab Negative Hep Bs Antigen Negative Hep B Core IgM Ab Negative Hepatitis C Ab Screen Negative 09/22/24 09/22/24 09/22/24 16:13 20:54 23:51 WBC RBC Hgb Hct MCV MCH MCHC RDW Plt Count MPV % Immature Plt Fraction Puncture Site ABG pH ABG pCO2 ABG pO2 ABG PO2/FiO2 Ratio ABG HCO3 ABG O2 Saturation ABG O2 Content ABG Base Excess A-a Gradient Oxyhemoglobin Carboxyhemoglobin Methemoglobin Reduced Hemoglobin Total Hemoglobin O2 Delivery Device O2 Liters/Min Minute Volume Vent Rate Vent Mode FiO2 Tidal Volume PEEP Peak Inspir Pressure Pressure Support Sodium Potassium Chloride Carbon Dioxide Anion Gap BUN Creatinine Estim Creat Clear Calc Estimated GFR Glucose POC Capillary Glucose 179 H 229 H 248 H Calcium Phosphorus Magnesium Total Bilirubin AST ALT Alkaline Phosphatase Total Protein Albumin Urine Eosinophils U Random Total Protein Ur Random Sodium Ur Random Urea Urine Creatinine Protein/Creat Ratio 2 Fentanyl Urine Norfentanyl Hepatitis A IgM Ab Hep Bs Antigen Hep B Core IgM Ab Hepatitis C Ab Screen 09/22/24 09/22/24 09/22/24 23:55 23:55 23:55 WBC RBC Hgb Hct MCV MCH MCHC RDW Plt Count MPV % Immature Plt Fraction Puncture Site ABG pH ABG pCO2 ABG pO2 ABG PO2/FiO2 Ratio ABG HCO3 ABG O2 Saturation ABG O2 Content ABG Base Excess A-a Gradient Oxyhemoglobin Carboxyhemoglobin Methemoglobin Reduced Hemoglobin Total Hemoglobin O2 Delivery Device O2 Liters/Min Minute Volume Vent Rate Vent Mode FiO2 Tidal Volume PEEP Peak Inspir Pressure Pressure Support Sodium Potassium Chloride Carbon Dioxide Anion Gap BUN Creatinine Estim Creat Clear Calc Estimated GFR Glucose POC Capillary Glucose Calcium Phosphorus Magnesium Total Bilirubin AST ALT Alkaline Phosphatase Total Protein Albumin Urine Eosinophils None seen U Random Total Protein 76 77 Ur Random Sodium 9 Ur Random Urea 296 Urine Creatinine 136.9 136.3 Protein/Creat Ratio 2 0.56 H Fentanyl Urine Norfentanyl Hepatitis A IgM Ab Hep Bs Antigen Hep B Core IgM Ab Hepatitis C Ab Screen 09/23/24 09/23/24 09/23/24 02:23 05:08 05:24 WBC 7.1 RBC 2.94 L Hgb 7.3 L Hct 23.4 L MCV 79.6 L MCH 24.8 L MCHC 31.2 L RDW 17.0 H Plt Count 60 L MPV 11.8 H % Immature Plt Fraction 7.8 Puncture Site ABG pH ABG pCO2 ABG pO2 ABG PO2/FiO2 Ratio ABG HCO3 ABG O2 Saturation ABG O2 Content ABG Base Excess A-a Gradient Oxyhemoglobin Carboxyhemoglobin Methemoglobin Reduced Hemoglobin Total Hemoglobin O2 Delivery Device O2 Liters/Min Minute Volume Vent Rate Vent Mode FiO2 Tidal Volume PEEP Peak Inspir Pressure Pressure Support Sodium 139 Potassium 4.9 Chloride 105 Carbon Dioxide 17 L Anion Gap 17 H BUN 78 H D Creatinine 2.44 H Estim Creat Clear Calc 23 Estimated GFR 22 L Glucose 226 H POC Capillary Glucose 266 H 231 H Calcium 8.0 L Phosphorus 5.1 H Magnesium 2.5 H Total Bilirubin 1.7 H AST 2294 H ALT 846 H Alkaline Phosphatase 446 H Total Protein 6.0 L Albumin 3.6 Urine Eosinophils U Random Total Protein Ur Random Sodium Ur Random Urea Urine Creatinine Protein/Creat Ratio 2 Fentanyl Urine Norfentanyl Hepatitis A IgM Ab Hep Bs Antigen Hep B Core IgM Ab Hepatitis C Ab Screen 09/23/24 09/23/24 05:40 07:38 WBC RBC Hgb Hct MCV MCH MCHC RDW Plt Count MPV % Immature Plt Fraction Puncture Site Left radial ABG pH 7.335 L ABG pCO2 31.0 L ABG pO2 96.9 ABG PO2/FiO2 Ratio 2.15 ABG HCO3 16.2 L ABG O2 Saturation 97.1 ABG O2 Content 10.1 L ABG Base Excess -8.8 A-a Gradient 188.7 Oxyhemoglobin 95.4 Carboxyhemoglobin 1.6 Methemoglobin 0.3 Reduced Hemoglobin 2.7 Total Hemoglobin 7.4 L* O2 Delivery Device Ventilator O2 Liters/Min Not Reportable Minute Volume Not Reportable Vent Rate 18 Vent Mode Cmv FiO2 45 Tidal Volume 350 PEEP 10 Peak Inspir Pressure Not Reportable Pressure Support Not Reportable Sodium Potassium Chloride Carbon Dioxide Anion Gap BUN Creatinine Estim Creat Clear Calc Estimated GFR Glucose POC Capillary Glucose 194 H Calcium Phosphorus Magnesium Total Bilirubin AST ALT Alkaline Phosphatase Total Protein Albumin Urine Eosinophils U Random Total Protein Ur Random Sodium Ur Random Urea Urine Creatinine Protein/Creat Ratio 2 Fentanyl Urine Norfentanyl Hepatitis A IgM Ab Hep Bs Antigen Hep B Core IgM Ab Hepatitis C Ab Screen Quality VTE Prophylaxis VTE prophylaxis: pharmacologic ordered
[2024-09-23] MEDS: DOXYCYCLINE 100 MG/NS 100 ML 100 MG/100 ML BAG IVPB ×2 (09:16→20:54)
[2024-09-23] MEDS: CEFEPIME 1 GM/NS 50 ML 1 GM/50 ML BAG IVPB ×2 (09:16→20:53)
[2024-09-23] MEDS: INSULIN GLARGINE (*BKC) 100 UNITS/ML 40 UNITS SUB-Q (09:17)
[2024-09-23] MEDS: FUROSEMIDE INJ 100 MG/10 ML VIAL 80 MG IV PUSH (09:18)
[2024-09-23] MEDS: PANTOPRAZOLE SODIUM IV 40 MG VIAL IV PUSH (09:18)
[2024-09-23] MEDS: MINERAL OIL/WHITE PETROLATUM OINTMENT 1 APPLIC EACH EYE ×2 (09:19→20:54)
[2024-09-23] MEDS: SODIUM BICARBONATE TAB 650 MG TABLET FEED TUBE ×3 (09:19→21:01)
[2024-09-23 09:44] LABS: Glucose Point of Care 190 mg/dl (65-105)
[2024-09-23] MEDS: OSELTAMIVIR PHOSPHATE 30 MG CAPSULE PO ×2 (10:00→20:56)
[2024-09-23 10:20] LABS: Hepatitis B Surface Antigen Negative (Negative)
[2024-09-23 10:49] LABS: Hepatitis B Surface Anti Res Positive
[2024-09-23] MEDS: MIDAZOLAM 100MG/NS 100ML(*CRX) 100 MG/100 ML BAG IV CONT (11:11)
--- NOTE | 2024-09-23 11:39 | P.PNNP_ITS ---
Progress Note: A&P Assessment and Plan (1) SCAR (acute kidney injury): Code(s): N17.9 - Acute kidney failure, unspecified Status: Acute Assessment and Plan: * as noted kristine labs on 09/22 * normal creatinine at baseline * multifactorial etiology: * prerenal factors * insensible losses (from high fevers on admission) * hemodynamic instability/shock * sepsis/infection (pneumonia + influenza) * contrast (CTA chest on 09/20) * other(?) * evaluation noted: * urine electrolytes prerenal x 2 * CPK okay * renal ultrasound normal * proteinuria noted (possibly due to diabetes) * urine eosinophils negative * UA with protein and glucose * no critical electrolytes but concerning the drop in urine output * hence, remains at risk for needing [employer]/dialysis * follow trend of repeat labs and UOP (2) Septic shock: Code(s): A41.9 - Sepsis, unspecified organism; R65.21 - Severe sepsis with septic shock Status: Acute Assessment and Plan: * presumably due to pneumonia and possibly influenza * s/p fluid resuscitation and IV albumin * weaned off vasopressor therapy * culture data noted * blood culture negative to date * sputum culture with Staph aureus * stress dose steroids being weaned * on antibiotics * follow trend of hemodynamics (3) Acute hypoxic respiratory failure: Code(s): J96.01 - Acute respiratory failure with hypoxia Status: Acute Assessment and Plan: * due to pneumonia and influenza * imaging noted: * chest CTA (on 09/20): bilateral multifocal pneumonia, most extensively involving the lower lobes; no pulmonary embolus seen * remains on mechanical ventilation * intubated in the ER for airway protection and ongoing hypoxic respiratory failure unresponsive to BiPAP therapy * weaning as able (4) Influenza: Code(s): J11.1 - Influenza due to unidentified influenza virus with other respiratory manifestations Status: Acute Assessment and Plan: * as noted by testing in the ER * resiratory isolation * on Tamiflu (5) PNA (pneumonia): Code(s): J18.9 - Pneumonia, unspecified organism Status: Acute Assessment and Plan: * see #2 (6) Anemia, unspecified: Code(s): D64.9 - Anemia, unspecified Status: Acute Assessment and Plan: * related to SCAR and acute illness * PRBC transfusion per protocol * consider EMANUEL given renal dysfunction * follow trend of H/H (7) Metabolic acidosis: Code(s): E87.20 - Acidosis, unspecified Status: Acute Assessment and Plan: * due to SCAR and possibly mild lactic acidosis (on admission) * s/p IVF resuscitation * on bicarbonate per tube to compensate * follow CO2 levels (8) Shock liver: Code(s): K72.00 - Acute and subacute hepatic failure without coma Status: Acute Assessment and Plan: * as noted by elevated AST and ALT * alkaline phosphatase and bilirubin normal * slow improvement noted * RUQ ultrasound noted: * gallbladder wall thickening * no evidence of gallstones * fatty infiltration of the liver * negative hepatitis panel * follow trend (9) Thrombocytopenia: Code(s): D69.6 - Thrombocytopenia, unspecified Status: Acute Assessment and Plan: * downward trend of platelets noted since admission * probably related to sepsis/infection and possibly medications and fluid shifts * using SCDs instead of lovenox/heparin for DVT prophylaxis * follow trend (10) Uncontrolled diabetes mellitus: Status: Acute Assessment and Plan: * follow accu-cheks * glycemic control per intensivisit Will continue to follow. L Subjective Date/time seen: 09/23/24 11:39 Interval history: Follow-up for acute kidney injury/acute renal failure. Renal function/creatinine continues to worsen in conjunction with declining urine output; remains intubated/sedated and on mechanical ventilation; weaned off all vasopressor therapy with relative stability of hemodynamics as noted; no other issues/events overnight or earlier this morning. Exam 2 Narrative: General: WD/WN female in NAD Heart: normal S1 and S2; no rub Lungs: coarse breath sounds Abdomen: soft, nontender, nondistended, positive bowel sounds Extremities: no cyanosis or clubbing; no edema Skin: warm and dry Objective Data Vital Signs Vital Signs: Vital Signs Temp Pulse Resp BP Pulse Ox O2 Del Method FiO2 09/23/24 11:11 99 25 H 09/23/24 10:33 94 90 Mechanical Ventilation 55 09/23/24 10:00 100.5 F H 95 26 H 112/61 90 09/23/24 10:00 95 09/23/24 10:00 95 26 H 09/23/24 10:00 95 26 H 09/23/24 09:30 87 L 09/23/24 09:30 55 09/23/24 08:07 92 90 Mechanical Ventilation 45 09/23/24 08:00 90 02/22/25 08:00 90 Mechanical Ventilation 45 09/23/24 08:00 92 24 H 09/23/24 08:00 92 24 H 09/23/24 08:00 45 09/23/24 08:00 99.1 F 92 22 H 100/67 90 09/23/24 06:24 90 21 H 09/23/24 06:23 84 09/23/24 06:23 90 21 H 09/23/24 06:00 99.8 F H 87 21 H 109/76 94 09/23/24 06:00 87 09/23/24 04:30 85 09/23/24 04:30 90 21 H 09/23/24 04:28 86 21 H 09/23/24 04:00 99.3 F 89 21 H 104/68 94 09/23/24 04:00 89 09/23/24 04:00 85 24 H 95 Mechanical Ventilation 45 09/23/24 04:00 45 09/23/24 03:13 86 94 Mechanical Ventilation 45 09/23/24 02:33 84 21 H 09/23/24 02:33 84 102/70 09/23/24 02:33 84 21 H 09/23/24 02:33 84 21 H 09/23/24 02:00 84 09/23/24 02:00 97.9 F 85 24 H 103/70 95 09/23/24 00:35 83 107/68 09/23/24 00:34 83 21 H 09/23/24 00:33 82 21 H 09/23/24 00:00 85 09/23/24 00:00 85 24 H 95 Mechanical Ventilation 45 09/23/24 00:00 45 09/23/24 00:00 99.1 F 84 24 H 102/73 95 09/22/24 23:35 82 94 Mechanical Ventilation 45 09/22/24 22:00 83 09/22/24 22:00 99 F 85 24 H 100/74 94 09/22/24 21:58 84 98/72 L 09/22/24 21:53 86 21 H 09/22/24 21:49 85 21 H 09/22/24 21:21 84 95 Mechanical Ventilation 45 09/22/24 20:00 84 09/22/24 20:00 85 09/22/24 20:00 85 21 H 09/22/24 20:00 84 21 H 09/22/24 20:00 85 24 H 95 Mechanical Ventilation 45 09/22/24 20:00 98.7 F 85 24 H 101/65 95 09/22/24 19:46 45 09/22/24 18:00 98.4 F 85 24 H 98/66 L 93 09/22/24 18:00 85 09/22/24 18:00 85 98/66 L 09/22/24 18:00 85 24 H 09/22/24 18:00 84 21 H 09/22/24 16:47 92 93 Mechanical Ventilation 45 09/22/24 16:00 88 93/68 L 09/22/24 16:00 88 17 09/22/24 16:00 88 17 09/22/24 16:00 98.8 F 88 17 93/68 L 92 09/22/24 16:00 45 09/22/24 16:00 88 09/22/24 16:00 92 Mechanical Ventilation 45 Intake/Output Intake/Output: Intake & Output 09/20/24 09/21/24 09/22/24 09/23/24 23:59 23:59 23:59 23:59 Intake Total 8968.2 2276.6 1836.2 1000.9 Output Total 1075 1350 525 50 Balance 7893.2 926.6 1311.2 950.9 Meds/Results Medications: Active Medications Generic Name Dose Route Start Last Admin Trade Name Freq PRN Reason Stop Dose Admin Acetaminophen 650 mg 09/20/24 19:03 09/21/24 11:59 Acetaminophen Elixir 325 Mg/10.15 Ml Udc PO 650 mg Q4H PRN Administration Mild Pain (1-3) or Fever Albuterol/Ipratropium 3 ml 09/22/24 08:26 Ipratropium 0.5 Mg/Albuterol Sulfate 2.5 Mg Ampul.Neb 3 Ml INHALATION Q6HRT PRN wheezing Dextrose 12.5 gm 09/20/24 03:19 Dextrose 50% 25 Gm/50 Ml Syringe IV PUSH PRN PRN Hypoglycemia Protocol Enoxaparin Sodium 40 mg 09/20/24 09:00 09/22/24 08:00 Enoxaparin 40 Mg/0.4 Ml Syringe SUB-Q 40 mg DAILY TOMY Administration Glucagon 1 mg 09/20/24 03:19 Glucagon For Inj 1 Mg Vial IM PRN PRN Hypoglycemia Protocol Glucose 15 gm 09/20/24 03:19 Glucose Oral Gel 15 Gm Of Glucse In 37.5 Gm Tube PO PRN PRN Hypoglycemia Protocol Hydrocortisone Sodium Succinate 100 mg 09/24/24 09:00 Hydrocortisone Sodium Succinate 100 Mg/2 Ml Vial IV PUSH QAM TOMY Dextrose 1,000 mls @ 100 mls/hr 09/20/24 03:19 Dextrose 5% 1,000 Ml IVPB PRN PRN Hypoglycemia Protocol Doxycycline Hyclate 100 mg in 100 mls @ 100 mls/hr 09/20/24 21:00 09/23/24 10:16 Vibramycin 100 Mg/Ns 100 Ml IVPB 09/25/24 20:59 Infused Q12H TOMY Infusion Norepinephrine Bitartrate 8 mg in 250 mls @ 0 mls/hr 09/20/24 19:35 09/23/24 06:23 Levophed 8 Mg/D5w 250 Ml IV CONT 0 mcg/min .Q0M TOMY 0 mls/hr Titration Protocol 0 MCG/MIN Fentanyl Citrate 2,500 mcg in 250 mls @ 10 mls/hr 09/20/24 21:10 09/23/24 12:00 Fentanyl 2,500 Mcg/Ns 250 Ml IV CONT 100 mcg/hr .Q25H TOMY 10 mls/hr Titration Protocol 100 MCG/HR Midazolam HCl 100 mg in 100 mls @ 5 mls/hr 09/20/24 22:10 09/23/24 12:00 Versed 100 Mg/Ns 100 Ml IV CONT 5 mg/hr .Q20H TOMY 5 mls/hr Titration Protocol 5 MG/HR Cefepime HCl 1 gm in 50 mls @ 100 mls/hr 09/22/24 21:00 09/23/24 09:46 Maxipime 1 Gm/Ns 50 Ml IVPB Infused Q12H TOMY Infusion Insulin Aspart 4 - 8 units 09/21/24 08:40 09/23/24 12:35 Insulin Aspart (*Bkc) 100 Units/Ml SUB-Q 4 units Q4H TOMY Administration Protocol Insulin Glargine 40 units 09/22/24 09:00 09/23/24 09:17 Insulin Glargine (*Bkc) 100 Units/Ml SUB-Q 40 units QAM TOMY Administration Levothyroxine Sodium 100 mcg 09/21/24 06:30 09/23/24 05:17 Levothyroxine Sodium 100 Mcg Tablet FEED TUBE 100 mcg DAILY@0630 TOMY Administration Multi-Ingred Cream/Lotion/Oil/Oint 1 applic 09/20/24 21:00 09/23/24 09:19 Mineral Oil/White Petrolatum Ointment EACH EYE 1 applic Q12HR TOMY Administration Oseltamivir Phosphate 30 mg 09/20/24 14:10 09/23/24 10:00 Oseltamivir Phosphate 30 Mg Capsule PO 09/24/24 09:01 30 mg Q12HR TOMY Administration Pantoprazole Sodium 40 mg 09/20/24 09:00 09/23/24 09:18 Pantoprazole Sodium Iv 40 Mg Vial IV PUSH 40 mg QAM TOMY Administration Sodium Bicarbonate 650 mg 09/23/24 08:31 09/23/24 09:19 Sodium Bicarbonate Tab 650 Mg Tablet FEED TUBE 650 mg Q8HR TOMY Administration Sodium Chloride 10 ml 09/20/24 14:00 09/23/24 05:17 Central Line Flush IV PUSH 10 ml Q8HR TOMY Administration Sodium Chloride 20 ml 09/20/24 06:40 Central Line Flush IV PUSH PRN PRN after blood draws Vancomycin HCl 1 each 09/20/24 14:06 Vancomycin For Acute Kidney Injury IVPB PRN PRN Vancomycin Protocol Radiology Results: ITS Impressions Chest CTA 09/20/24 05:30 Impression: Bilateral multifocal pneumonia, most extensively involving the lower lobes. No pulmonary embolus seen. Abdomen X-Ray 09/20/24 05:35 Impression: NG tube in satisfactory position. Abdomen Ultrasound 09/22/24 15:02 IMPRESSION: 1: Gallbladder wall thickening, nonspecific. No evidence for gallstones. 2: Fatty infiltration of the liver. Renal Ultrasound 09/22/24 15:14 IMPRESSION: 1. Normal kidneys without hydronephrosis. Chest X-Ray 09/23/24 06:34 IMPRESSION: 1. Slight decrease in diffuse patchy bilateral airspace opacities which could represent improving pulmonary edema and/or pneumonia. Labs Labs: Laboratory Tests 09/23/24 05:08 09/23/24 05:08 Calcium 8.0 L Phosphorus 5.1 H Magnesium 2.5 H Total Bilirubin 1.7 H AST 2294 H ALT 846 H Alkaline Phosphatase 446 H Total Protein 6.0 L Albumin 3.6
[2024-09-23 12:18] LABS: Glucose Point of Care 208 mg/dl (65-105)
[2024-09-23 16:09] LABS: Glucose Point of Care 153 mg/dl (65-105)
[2024-09-23 20:06] LABS: Glucose Point of Care 141 mg/dl (65-105)
[2024-09-23 20:54] LABS: Vancomycin Random 18.9 ug/mL (10-20)
[2024-09-23] MEDS: VANCOMYCIN 1,000 MG/NS 250 ML 1,000 MG/250 ML BAG 250 MG IVPB (21:54)
--- NOTE | 2024-09-23 22:08 | PC.NURSE ---
2140 09/23/[address] Vo and made aware of current vent setting, RR, O2 saturation, and results of CXR. Received order to increase peep to 12. Respiratory notified.
[2024-09-24] VITALS (29 sets, daily range): BP systolic 105–120; BP diastolic 72–85; PULSE 78–98; RESP 22–30; TEMP 36.6–37.1; O2SAT 91–98
[2024-09-24 00:01] LABS: Glucose Point of Care 125 mg/dl (65-105)
[2024-09-24 04:09] LABS: Glucose Point of Care 145 mg/dl (65-105)
[2024-09-24 05:04] LABS: Base Excess ABG -6.7 mEq/l (+/-2.0); Fractional Inspired Oxygen 70 %; HCO3 ABG 20.6 mEq/l (22.0-26.0); Methemoglobin ABG 0.3 %THb (0-1.5); Oxygen Content ABG 12.1 %vol (16.0-22.0); Oxygen Saturation ABG 93.7 % (95.0-100.0); Oxyhemoglobin 92.9 % THb (90.0-100.0); PCO2 ABG 49.9 mmHg (35.0-45.0); PO2 ABG 80.5 mmHg (80.0-100.0); PO2 FiO2 Ratio Arterial Blood 1.15 %; Reduced Hemoglobin 5.8 %THb (0-5.0); Total Hemoglobin 9.2 g/dL (12.0-18.0)
[2024-09-24 05:07] LABS: Device VENTILATOR; Modified Allen's Test Pass; Site Drawn RIGHT RADIAL; pH ABG 7.234 (7.350-7.450)
[2024-09-24 05:08] LABS: Arterial Blood Gas PEEP 12 cmH2O; Arterial Blood Gas Vent Mode CMV; Arterial Blood Gas Ventilator rate 22 /MIN
[2024-09-24 05:09] LABS: Arterial Blood Gas Tidal Volume 350 ml
[2024-09-24] MEDS: FENTANYL 2,500MCG/NS250ML(*CRX 2,500 MCG/250 ML BAG 7.5 MCG IV CONT (05:09)
[2024-09-24] MEDS: LEVOTHYROXINE SODIUM 100 MCG TABLET FEED TUBE (05:45)
[2024-09-24] MEDS: SODIUM BICARBONATE TAB 650 MG TABLET FEED TUBE ×3 (05:45→21:09)
[2024-09-24] MEDS: CENTRAL LINE FLUSH 10 ML IV PUSH ×3 (05:45→21:08)
[2024-09-24 06:00] LABS: Hemoglobin 8.3 g/dL (12.0-15.0); Immature Platelet Fraction Pct 9.3 % (0.9-11.2); Mean Corpuscular HGB Conc 31.9 g/dl (32-36); Mean Corpuscular Hemoglobin 25.2 pg (26-34); Mean Corpuscular Volume 78.8 fl (80-100); Mean Platelet Volume 11.7 fl (7.4-10.4); Platelet Count Result 73 k/mm3 (150-375); Red Cell Distribution Width 17.3 % (11.5-14.5); White Blood Count 12.6 K/mm3 (4.5-10.0)
[2024-09-24 06:23] LABS: Alanine Aminotransferase 589 U/L (6-35); Albumin Level 3.3 g/dL (3.5-5.1); Alkaline Phosphatase 591 U/L (38-126); Anion Gap 15 mmol/L (4-12); Blood Urea Nitrogen 107 mg/dL (7-17); Calcium 7.6 mg/dL (8.4-10.2); Carbon Dioxide 20 mmol/L (22-30); Chloride 106 mmol/L (98-107); Estimated CRCL calculation 21 ml/min; Estimated Glomerular Filt Rate 16; Glucose 137 mg/dL (65-110); Magnesium 2.5 mg/dL (1.6-2.3); Phosphorus 5.4 mg/dL (2.5-4.5); Potassium 4.7 mmol/L (3.4-5.0); Sodium 141 mmol/L (137-145)
[2024-09-24 06:38] LABS: Aspartate Amino Transferase 807 U/L (14-36)
[2024-09-24 07:52] LABS: Glucose Point of Care 158 mg/dl (65-105)
[2024-09-24] MEDS: HYDROCORTISONE SODIUM SUCCINATE 100 MG/2 ML VIAL IV PUSH (08:44)
[2024-09-24] MEDS: DOXYCYCLINE 100 MG/NS 100 ML 100 MG/100 ML BAG IVPB ×2 (08:44→21:07)
[2024-09-24] MEDS: MINERAL OIL/WHITE PETROLATUM OINTMENT 1 APPLIC EACH EYE ×2 (08:44→21:09)
[2024-09-24] MEDS: INSULIN GLARGINE (*BKC) 100 UNITS/ML 40 UNITS SUB-Q (08:44)
[2024-09-24] MEDS: PANTOPRAZOLE SODIUM IV 40 MG VIAL IV PUSH (08:44)
[2024-09-24] MEDS: OSELTAMIVIR PHOSPHATE 30 MG CAPSULE PO (08:44)
[2024-09-24] MEDS: CEFEPIME 1 GM/NS 50 ML 1 GM/50 ML BAG IVPB ×2 (08:45→21:07)
[2024-09-24] MEDS: CALCIUM GLUC 2,000 MG/NS 100ML 2,000 MG/100 ML BAG 100 MG IVPB (08:49)
[2024-09-24] MEDS: MIDAZOLAM 100MG/NS 100ML(*CRX) 100 MG/100 ML BAG IV CONT (08:51)
[2024-09-24] MEDS: FUROSEMIDE INJ 100 MG/10 ML VIAL 80 MG IV PUSH ×2 (08:57→16:31)
--- NOTE | 2024-09-24 10:47 | P.PNINT_ITS ---
Progress Note: A&P Assessment and Plan (1) Acute hypoxic respiratory failure: Code(s): J96.01 - Acute respiratory failure with hypoxia Status: Acute Assessment and Plan: Acute respiratory failure secondary to influenza A and pneumonia proceeding to ARDS CTA chest Bilateral multifocal pneumonia, most extensively involving the lower lobes. No pulmonary embolus seen. Patient now intubated and on mechanical ventilation ABG reviewed. Peep is at 12 FiO2 70%. Continue to wean FiO2 Continue sedation with Versed and fentanyl Bronchodilators (2) Uncontrolled diabetes mellitus: Status: Acute Assessment and Plan: SSI Continue Lantus to 40 Continue tube feeds (3) Septic shock: Code(s): A41.9 - Sepsis, unspecified organism; R65.21 - Severe sepsis with septic shock Status: Acute Assessment and Plan: Septic shock secondary to pneumonia Hold further IV fluids Off vasopressor Wean off Stress dose hydrocortisone Continue Bicarb per tube for acidosis Blood cultures are negative till now Sputum cultures growing Staph aureus Currently on vancomycin, cefepime and doxycycline (4) PNA (pneumonia): Code(s): J18.9 - Pneumonia, unspecified organism Status: Acute Assessment and Plan: See above (5) Hypothyroidism: Code(s): E03.9 - Hypothyroidism, unspecified Status: Acute Assessment and Plan: Continue levothyroxine Normal TSH (6) Influenza: Code(s): J11.1 - Influenza due to unidentified influenza virus with other respiratory manifestations Status: Acute Assessment and Plan: Isolation Tamiflu (7) SCAR (acute kidney injury): Code(s): N17.9 - Acute kidney failure, unspecified Status: Acute Assessment and Plan: Patient presented with elevated creatinine which has been gradually getting worse This is likely multifactorial secondary to sepsis, shock possible contrast induced injury. 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 Recommends continuing Lasix for another 24 hours and re-evaluate need for dialysis (8) Shock liver: Code(s): K72.00 - Acute and subacute hepatic failure without coma Status: Acute Assessment and Plan: Elevated AST and ALT likely secondary to shock liver and cholestasis secondary to sepsis and shock ALT and AST improved bilirubin normal US right upper quadrant ultrasound shows gallbladder wall thickening nonspecific no evidence of gallstones. 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 (9) Thrombocytopenia: Code(s): D69.6 - Thrombocytopenia, unspecified Status: Acute Assessment and Plan: Gradual in platelet count since admission likely multifactorial secondary to sepsis medications and hemodilution Hold Lovenox Monitor Plan DVT prophylaxis -hold Lovenox due to thrombocytopenia, SCD Stress ulcer prophylaxis -Protonix Nutrition - advance tube feed Code Status - Full Code Total Critical Care Time -35 minutes Due to a high probability of clinically significant, life threatening deterioration, the patient required my highest level of preparedness to in tervene emergently and I personally spent this critical care time directly and personally managing the patient. This critical care time included obtaining a history; examining the patient; pulse oximetry; ordering and review of studies; arranging urgent treatment with development of a management plan; evaluation of patient's response to treatment; frequent reassessment; and discussions with other providers. It was exclusive of separately billable procedures and treating other patients and teaching time. Please see Assessment and Plan section and the rest of the note for further information on patient assessment and treatment Subjective Date/time seen: 09/24/24 Overnight events reviewed. Afebrile Continues to be on mechanical ventilation 70% FiO2 and 12 of PEEP Off vasopressors Continues to be sedated with Versed and friend Tolerating tube feed Improved urine output of 900 mL over last 24 hour Review of Systems Review of Systems: ROS unobtainable: Yes unobtainable due to endotracheal tube, unobtainable due to medical condition and unobtainable due to mental status Exam Narrative: General: Pt is sedated, intubated and on mechanical ventilation Lungs/Chest: Trachea central Coarse BS B/L, No crackles or wheezing. Cardiac: RRR. Normal S1 S2. No murmurs Circulation: Pedal pulses are weak but palpable, feet are much warmer today and the mottling of the skin of both hands and feet appears improved as compared to yesterday Abdomen: Decreased bowel sounds. Soft. NT. ND. Extremities: No clubbing, cyanosis or edema. Warm : Leach in place Neurologic: Unable to assess due to sedation. Moves all 4 extremities to painful stimuli. PERRL Objective Data Vital Signs Vital Signs: Vital Signs - 24 hr 09/23/24 11:11 09/23/24 11:11 09/23/24 12:00 Temperature 38.1 C H Pulse Rate 99 99 95 Respiratory Rate 25 H 25 H 25 H Blood Pressure 109/68 Pulse Oximetry 89 L Oxygen Delivery Fraction of Inspired Oxygen 09/23/24 12:00 09/23/24 12:00 09/23/24 12:00 Temperature Pulse Rate 96 96 Respiratory Rate 26 H 25 H Blood Pressure Pulse Oximetry Oxygen Delivery Fraction of Inspired Oxygen 55 09/23/24 12:00 09/23/24 12:00 09/23/24 14:00 Temperature Pulse Rate 95 93 Respiratory Rate Blood Pressure Pulse Oximetry 89 L 93 Oxygen Delivery Mechanical Ventilation Mechanical Ventilation Fraction of Inspired Oxygen 55 55 09/23/24 14:00 09/23/24 14:00 09/23/24 14:00 Temperature 37.9 C H Pulse Rate 93 93 94 Respiratory Rate 22 H 26 H Blood Pressure 110/71 Pulse Oximetry 93 Oxygen Delivery Fraction of Inspired Oxygen 09/23/24 14:00 09/23/24 16:00 09/23/24 16:00 Temperature 37.8 C H Pulse Rate 94 93 94 Respiratory Rate 26 H 18 26 H Blood Pressure 114/72 Pulse Oximetry 92 Oxygen Delivery Fraction of Inspired Oxygen 09/23/24 16:00 09/23/24 16:00 09/23/24 16:00 Temperature Pulse Rate 94 Respiratory Rate 26 H Blood Pressure Pulse Oximetry 91 Oxygen Delivery Mechanical Ventilation Fraction of Inspired Oxygen 55 55 09/23/24 16:00 09/23/24 16:30 09/23/24 18:00 Temperature 37.5 C Pulse Rate 94 95 92 Respiratory Rate 24 H Blood Pressure 116/84 Pulse Oximetry 91 90 Oxygen Delivery Mechanical Ventilation Fraction of Inspired Oxygen 55 09/23/24 18:00 09/23/24 18:51 09/23/24 18:51 Temperature Pulse Rate 91 Respiratory Rate Blood Pressure Pulse Oximetry 87 L Oxygen Delivery Fraction of Inspired Oxygen 80 09/23/24 20:00 09/23/24 20:00 09/23/24 20:00 Temperature 37.2 C Pulse Rate 91 92 Respiratory Rate 26 H Blood Pressure 109/85 Pulse Oximetry 94 Oxygen Delivery Fraction of Inspired Oxygen 80 09/23/24 20:00 09/23/24 20:00 09/23/24 20:12 Temperature Pulse Rate 91 91 91 Respiratory Rate 26 H 26 H Blood Pressure Pulse Oximetry 94 Oxygen Delivery Mechanical Ventilation Fraction of Inspired Oxygen 80 09/23/24 20:30 09/23/24 21:52 09/23/24 22:00 Temperature Pulse Rate 90 91 Respiratory Rate 24 H Blood Pressure Pulse Oximetry 94 96 Oxygen Delivery Mechanical Ventilation Mechanical Ventilation Fraction of Inspired Oxygen 80 80 70 09/23/24 22:00 09/23/24 22:00 09/23/24 22:00 Temperature Pulse Rate 91 91 91 Respiratory Rate 26 H 26 H Blood Pressure Pulse Oximetry Oxygen Delivery Fraction of Inspired Oxygen 09/23/24 22:00 09/23/24 22:30 09/23/24 23:51 Temperature 37.1 C Pulse Rate 91 91 89 Respiratory Rate 26 H 27 H Blood Pressure 113/78 Pulse Oximetry 94 94 92 Oxygen Delivery Mechanical Ventilation Mechanical Ventilation Fraction of Inspired Oxygen 70 70 09/23/24 23:51 09/24/24 00:00 09/24/24 00:00 Temperature 37.1 C Pulse Rate 90 89 Respiratory Rate 24 H Blood Pressure 106/80 Pulse Oximetry 92 Oxygen Delivery Fraction of Inspired Oxygen 70 09/24/24 00:00 09/24/24 00:00 09/24/24 01:46 Temperature Pulse Rate 90 90 91 Respiratory Rate 24 H 24 H Blood Pressure Pulse Oximetry 93 Oxygen Delivery Mechanical Ventilation Fraction of Inspired Oxygen 70 09/24/24 02:00 09/24/24 02:00 09/24/24 02:00 Temperature Pulse Rate 98 90 90 Respiratory Rate 25 H 25 H Blood Pressure Pulse Oximetry Oxygen Delivery Fraction of Inspired Oxygen 09/24/24 02:04 09/24/24 04:00 09/24/24 04:00 Temperature 36.9 C Pulse Rate 90 91 91 Respiratory Rate 26 H 24 H 24 H Blood Pressure 109/80 Pulse Oximetry 93 Oxygen Delivery Fraction of Inspired Oxygen 09/24/24 04:00 09/24/24 04:00 09/24/24 04:00 Temperature Pulse Rate 91 92 Respiratory Rate 24 H Blood Pressure Pulse Oximetry 93 Oxygen Delivery Mechanical Ventilation Fraction of Inspired Oxygen 70 70 09/24/24 04:21 09/24/24 05:00 09/24/24 05:09 Temperature 36.8 C Pulse Rate 91 92 90 Respiratory Rate 26 H 24 H Blood Pressure 113/79 Pulse Oximetry 93 93 Oxygen Delivery Mechanical Ventilation Fraction of Inspired Oxygen 70 09/24/24 05:45 09/24/24 05:45 09/24/24 06:00 Temperature 36.8 C Pulse Rate 90 90 90 Respiratory Rate 24 H 24 H 28 H Blood Pressure 106/78 Pulse Oximetry 95 Oxygen Delivery Fraction of Inspired Oxygen 09/24/24 06:14 09/24/24 06:14 09/24/24 07:00 Temperature Pulse Rate 90 90 90 Respiratory Rate 24 H 22 H Blood Pressure 106/78 Pulse Oximetry 94 Oxygen Delivery Fraction of Inspired Oxygen 09/24/24 07:00 09/24/24 08:00 09/24/24 08:00 Temperature 36.9 C Pulse Rate 90 90 88 Respiratory Rate 22 H 23 H 27 H Blood Pressure 114/85 Pulse Oximetry 95 Oxygen Delivery Fraction of Inspired Oxygen 09/24/24 08:00 09/24/24 08:00 09/24/24 08:00 Temperature Pulse Rate 92 Respiratory Rate 27 H Blood Pressure Pulse Oximetry 94 Oxygen Delivery Mechanical Ventilation Fraction of Inspired Oxygen 70 70 09/24/24 08:32 09/24/24 08:37 09/24/24 08:51 Temperature Pulse Rate 89 91 89 Respiratory Rate 27 H 27 H Blood Pressure Pulse Oximetry 94 Oxygen Delivery Mechanical Ventilation Fraction of Inspired Oxygen 70 09/24/24 10:00 09/24/24 10:00 09/24/24 10:00 Temperature 37.1 C Pulse Rate 91 90 91 Respiratory Rate 24 H 24 H 22 H Blood Pressure 115/79 Pulse Oximetry 92 Oxygen Delivery Fraction of Inspired Oxygen 09/24/24 10:36 Temperature Pulse Rate 91 Respiratory Rate Blood Pressure Pulse Oximetry 93 Oxygen Delivery Mechanical Ventilation Fraction of Inspired Oxygen 70 Intake/Output Intake/Output: Intake & Output 09/21/24 09/22/24 09/23/24 09/24/24 23:59 23:59 23:59 23:59 Intake Total 2276.6 1836.2 2135.9 147.4 Output Total 1350 525 500 450 Balance 926.6 1311.2 1635.9 -302.6 Meds/Results Medications: Active Medications Generic Name Dose Route Start Last Admin Trade Name Freq PRN Reason Stop Dose Admin Acetaminophen 650 mg 09/20/24 19:03 09/21/24 11:59 Acetaminophen Elixir 325 Mg/10.15 Ml Udc PO 650 mg Q4H PRN Administration Mild Pain (1-3) or Fever Albuterol/Ipratropium 3 ml 09/22/24 08:26 Ipratropium 0.5 Mg/Albuterol Sulfate 2.5 Mg Ampul.Neb 3 Ml INHALATION Q6HRT PRN wheezing Dextrose 12.5 gm 09/20/24 03:19 Dextrose 50% 25 Gm/50 Ml Syringe IV PUSH PRN PRN Hypoglycemia Protocol Enoxaparin Sodium 40 mg 09/20/24 09:00 09/22/24 08:00 Enoxaparin 40 Mg/0.4 Ml Syringe SUB-Q 40 mg DAILY TOMY Administration Glucagon 1 mg 09/20/24 03:19 Glucagon For Inj 1 Mg Vial IM PRN PRN Hypoglycemia Protocol Glucose 15 gm 09/20/24 03:19 Glucose Oral Gel 15 Gm Of Glucse In 37.5 Gm Tube PO PRN PRN Hypoglycemia Protocol Hydrocortisone Sodium Succinate 100 mg 09/24/24 09:00 09/24/24 08:44 Hydrocortisone Sodium Succinate 100 Mg/2 Ml Vial IV PUSH 09/24/24 23:59 100 mg QAM TOMY Administration Dextrose 1,000 mls @ 100 mls/hr 09/20/24 03:19 Dextrose 5% 1,000 Ml IVPB PRN PRN Hypoglycemia Protocol Doxycycline Hyclate 100 mg in 100 mls @ 100 mls/hr 09/20/24 21:00 09/24/24 08:44 Vibramycin 100 Mg/Ns 100 Ml IVPB 09/25/24 20:59 100 mls/hr Q12H TOMY Administration Fentanyl Citrate 2,500 mcg in 250 mls @ 10 mls/hr 09/20/24 21:10 09/24/24 10:00 Fentanyl 2,500 Mcg/Ns 250 Ml IV CONT 100 mcg/hr .Q25H TOMY 10 mls/hr Titration Protocol 100 MCG/HR Midazolam HCl 100 mg in 100 mls @ 4 mls/hr 09/20/24 22:10 09/24/24 10:00 Versed 100 Mg/Ns 100 Ml IV CONT 4 mg/hr .Q25H TOMY 4 mls/hr Titration Protocol 4 MG/HR Cefepime HCl 1 gm in 50 mls @ 100 mls/hr 09/22/24 21:00 09/24/24 08:45 Maxipime 1 Gm/Ns 50 Ml IVPB 100 mls/hr Q12H TOMY Administration Insulin Aspart 4 - 8 units 09/21/24 08:40 09/24/24 08:57 Insulin Aspart (*Bkc) 100 Units/Ml SUB-Q Not Given Q4H [facility] Protocol Insulin Glargine 40 units 09/22/24 09:00 09/24/24 08:44 Insulin Glargine (*Bkc) 100 Units/Ml SUB-Q 40 units QAM TOMY Administration Levothyroxine Sodium 100 mcg 09/21/24 06:30 09/24/24 05:45 Levothyroxine Sodium 100 Mcg Tablet FEED TUBE 100 mcg DAILY@0630 TOMY Administration Multi-Ingred Cream/Lotion/Oil/Oint 1 applic 09/20/24 21:00 09/24/24 08:44 Mineral Oil/White Petrolatum Ointment EACH EYE 1 applic Q12HR TOMY Administration Pantoprazole Sodium 40 mg 09/20/24 09:00 09/24/24 08:44 Pantoprazole Sodium Iv 40 Mg Vial IV PUSH 40 mg QAM TOMY Administration Sodium Bicarbonate 650 mg 09/23/24 08:31 09/24/24 05:45 Sodium Bicarbonate Tab 650 Mg Tablet FEED TUBE 650 mg Q8HR TOMY Administration Sodium Chloride 10 ml 09/20/24 14:00 09/24/24 05:45 Central Line Flush IV PUSH 10 ml Q8HR TOMY Administration Sodium Chloride 20 ml 09/20/24 06:40 Central Line Flush IV PUSH PRN PRN after blood draws Vancomycin HCl 1 each 09/20/24 14:06 Vancomycin For Acute Kidney Injury IVPB PRN PRN Vancomycin Protocol Radiology Results: ITS Impressions Chest CTA 09/20/24 05:30 Impression: Bilateral multifocal pneumonia, most extensively involving the lower lobes. No pulmonary embolus seen. Abdomen X-Ray 09/20/24 05:35 Impression: NG tube in satisfactory position. Abdomen Ultrasound 09/22/24 15:02 IMPRESSION: 1: Gallbladder wall thickening, nonspecific. No evidence for gallstones. 2: Fatty infiltration of the liver. Renal Ultrasound 09/22/24 15:14 IMPRESSION: 1. Normal kidneys without hydronephrosis. Chest X-Ray 09/24/24 06:18 IMPRESSION: 1. Stable diffuse lung disease, consistent with pneumonia. Labs Labs: Laboratory Results - last 24 hr 09/23/24 09/23/24 09/23/24 09:26 11:56 16:05 WBC RBC Hgb Hct MCV MCH MCHC RDW Plt Count MPV % Immature Plt Fraction Puncture Site ABG pH ABG pCO2 ABG pO2 ABG PO2/FiO2 Ratio ABG HCO3 ABG O2 Saturation ABG O2 Content ABG Base Excess A-a Gradient Oxyhemoglobin Carboxyhemoglobin Methemoglobin Reduced Hemoglobin Total Hemoglobin O2 Delivery Device O2 Liters/Min Minute Volume Vent Rate Vent Mode FiO2 Tidal Volume PEEP Peak Inspir Pressure Pressure Support Sodium Potassium Chloride Carbon Dioxide Anion Gap BUN Creatinine Estim Creat Clear Calc Estimated GFR Glucose POC Capillary Glucose 208 H 153 H Calcium Phosphorus Magnesium Total Bilirubin AST ALT Alkaline Phosphatase Total Protein Albumin Random Vancomycin Hep Bs Antibody Positive 09/23/24 09/23/24 09/23/24 20:05 20:24 23:55 WBC RBC Hgb Hct MCV MCH MCHC RDW Plt Count MPV % Immature Plt Fraction Puncture Site ABG pH ABG pCO2 ABG pO2 ABG PO2/FiO2 Ratio ABG HCO3 ABG O2 Saturation ABG O2 Content ABG Base Excess A-a Gradient Oxyhemoglobin Carboxyhemoglobin Methemoglobin Reduced Hemoglobin Total Hemoglobin O2 Delivery Device O2 Liters/Min Minute Volume Vent Rate Vent Mode FiO2 Tidal Volume PEEP Peak Inspir Pressure Pressure Support Sodium Potassium Chloride Carbon Dioxide Anion Gap BUN Creatinine Estim Creat Clear Calc Estimated GFR Glucose POC Capillary Glucose 141 H 125 H Calcium Phosphorus Magnesium Total Bilirubin AST ALT Alkaline Phosphatase Total Protein Albumin Random Vancomycin 18.9 Hep Bs Antibody 09/24/24 09/24/24 09/24/24 03:55 04:43 05:50 WBC 12.6 H RBC 3.30 L Hgb 8.3 L Hct 26.0 L MCV 78.8 L MCH 25.2 L MCHC 31.9 L RDW 17.3 H Plt Count 73 L MPV 11.7 H % Immature Plt Fraction 9.3 Puncture Site Right radial ABG pH 7.234 L* ABG pCO2 49.9 H ABG pO2 80.5 ABG PO2/FiO2 Ratio 1.15 ABG HCO3 20.6 L ABG O2 Saturation 93.7 L ABG O2 Content 12.1 L ABG Base Excess -6.7 A-a Gradient 365.0 Oxyhemoglobin 92.9 Carboxyhemoglobin 1.0 Methemoglobin 0.3 Reduced Hemoglobin 5.8 H Total Hemoglobin 9.2 L O2 Delivery Device Ventilator O2 Liters/Min Not Reportable Minute Volume Not Reportable Vent Rate 22 Vent Mode Cmv FiO2 70 Tidal Volume 350 PEEP 12 Peak Inspir Pressure Not Reportable Pressure Support Not Reportable Sodium 141 Potassium 4.7 Chloride 106 Carbon Dioxide 20 L Anion Gap 15 H BUN 107 H D Creatinine 3.12 H Estim Creat Clear Calc 21 Estimated GFR 16 L Glucose 137 H POC Capillary Glucose 145 H Calcium 7.6 L Phosphorus 5.4 H Magnesium 2.5 H Total Bilirubin 1.0 AST 807 H ALT 589 H Alkaline Phosphatase 591 H Total Protein 6.0 L Albumin 3.3 L Random Vancomycin Hep Bs Antibody 09/24/24 07:48 WBC RBC Hgb Hct MCV MCH MCHC RDW Plt Count MPV % Immature Plt Fraction Puncture Site ABG pH ABG pCO2 ABG pO2 ABG PO2/FiO2 Ratio ABG HCO3 ABG O2 Saturation ABG O2 Content ABG Base Excess A-a Gradient Oxyhemoglobin Carboxyhemoglobin Methemoglobin Reduced Hemoglobin Total Hemoglobin O2 Delivery Device O2 Liters/Min Minute Volume Vent Rate Vent Mode FiO2 Tidal Volume PEEP Peak Inspir Pressure Pressure Support Sodium Potassium Chloride Carbon Dioxide Anion Gap BUN Creatinine Estim Creat Clear Calc Estimated GFR Glucose POC Capillary Glucose 158 H Calcium Phosphorus Magnesium Total Bilirubin AST ALT Alkaline Phosphatase Total Protein Albumin Random Vancomycin Hep Bs Antibody Quality VTE Prophylaxis VTE prophylaxis: pharmacologic ordered
[2024-09-24 11:42] LABS: Glucose Point of Care 143 mg/dl (65-105)
--- NOTE | 2024-09-24 12:52 | P.PNNP_ITS ---
Progress Note: A&P Assessment and Plan (1) SCAR (acute kidney injury): Code(s): N17.9 - Acute kidney failure, unspecified Status: Acute Assessment and Plan: * as noted by labs starting on 09/22 * normal creatinine at baseline * multifactorial etiology: * prerenal factors * insensible losses (from high fevers on admission) * hemodynamic instability/shock * sepsis/infection (pneumonia + influenza) * contrast (CTA chest on 09/20) * other(?) * evaluation noted: * urine electrolytes prerenal x 2 * CPK okay * renal ultrasound normal * proteinuria noted (possibly due to diabetes) * urine eosinophils negative * UA with protein and glucose * better urine output noted with diuretic trial yesterday * repeat diuretic trial today * still remains at risk for [employer]/dialysis * follow trend of repeat labs and UOP for potential renal recovery (2) Septic shock: Code(s): A41.9 - Sepsis, unspecified organism; R65.21 - Severe sepsis with septic shock Status: Acute Assessment and Plan: * presumably due to pneumonia and possibly influenza * s/p fluid resuscitation and IV albumin * weaned off vasopressor therapy * culture data noted * blood culture negative to date * sputum culture with Staph aureus * stress dose steroids being weaned * on antibiotics * follow trend of hemodynamics (3) Acute hypoxic respiratory failure: Code(s): J96.01 - Acute respiratory failure with hypoxia Status: Acute Assessment and Plan: * due to pneumonia and influenza * imaging noted: * chest CTA (on 09/20): bilateral multifocal pneumonia, most extensively involving the lower lobes; no pulmonary embolus seen * remains on mechanical ventilation * intubated in the ER for airway protection and ongoing hypoxic respiratory failure unresponsive to BiPAP therapy * weaning as able (4) Influenza: Code(s): J11.1 - Influenza due to unidentified influenza virus with other respiratory manifestations Status: Acute Assessment and Plan: * as noted by testing in the ER * resiratory isolation * on Tamiflu (5) PNA (pneumonia): Code(s): J18.9 - Pneumonia, unspecified organism Status: Acute Assessment and Plan: * see #2 (6) Anemia, unspecified: Code(s): D64.9 - Anemia, unspecified Status: Acute Assessment and Plan: * related to SCAR and acute illness * PRBC transfusion per protocol * consider EMANUEL given renal dysfunction * follow trend of H/H (7) Metabolic acidosis: Code(s): E87.20 - Acidosis, unspecified Status: Acute Assessment and Plan: * due to SCAR and possibly mild lactic acidosis (on admission) * s/p IVF resuscitation * on sodium bicarbonate per tube to compensate * follow CO2 levels (8) Shock liver: Code(s): K72.00 - Acute and subacute hepatic failure without coma Status: Acute Assessment and Plan: * slow improvement noted * as noted by elevated AST and ALT * alkaline phosphatase and bilirubin normal * slow improvement noted * RUQ ultrasound noted: * gallbladder wall thickening * no evidence of gallstones * fatty infiltration of the liver * negative hepatitis panel * follow trend (9) Thrombocytopenia: Code(s): D69.6 - Thrombocytopenia, unspecified Status: Acute Assessment and Plan: * slightly better * downward trend of platelets noted since admission * probably related to sepsis/infection and possibly medications and fluid shifts * using SCDs instead of lovenox/heparin for DVT prophylaxis * follow trend (10) Uncontrolled diabetes mellitus: Status: Acute Assessment and Plan: * follow accu-cheks * glycemic control per intensivisit Discussed case with Dr. Vo. Will continue to follow. L Subjective Date/time seen: 09/24/24 12:52 Interval history: Follow-up for acute kidney injury/acute renal failure. Hemodynamically stable off vasopressor therapy; remains intubated/sedated and on mechanical ventilation; renal function/creatinine & BUN worse but improved urine output (~ 900cc) in the last 24 hours albeit with the use of IV diuretics; no other acute issues/events overnight or earlier this morning. Exam 2 Narrative: General: WD/WN female in NAD Heart: normal S1 and S2; no rub Lungs: coarse breath sounds Abdomen: soft, nontender, nondistended, positive bowel sounds Extremities: no cyanosis or clubbing; no edema Skin: warm and intact Objective Data Vital Signs Vital Signs: Vital Signs Temp Pulse Resp BP Pulse Ox O2 Del Method FiO2 09/24/24 12:00 Mechanical Ventilation 70 09/24/24 12:00 98.7 F 92 23 H 120/79 91 09/24/24 10:36 91 93 Mechanical Ventilation 70 09/24/24 10:00 92 09/24/24 10:00 98.7 F 91 22 H 115/79 92 09/24/24 10:00 90 24 H 02/23/25 10:00 91 24 H 09/24/24 08:51 89 27 H 09/24/24 08:37 91 94 Mechanical Ventilation 70 09/24/24 08:32 89 27 H 09/24/24 08:00 90 09/24/24 08:00 70 09/24/24 08:00 94 Mechanical Ventilation 70 09/24/24 08:00 92 27 H 09/24/24 08:00 88 27 H 09/24/24 08:00 98.4 F 90 23 H 114/85 95 09/24/24 07:00 90 22 H 09/24/24 07:00 90 22 H 09/24/24 06:14 90 24 H 106/78 94 09/24/24 06:14 90 09/24/24 06:00 98.2 F 90 28 H 106/78 95 09/24/24 05:45 90 24 H 09/24/24 05:45 90 24 H 09/24/24 05:09 90 24 H 09/24/24 05:00 92 93 Mechanical Ventilation 09/24/24 04:21 98.3 F 91 26 H 113/79 93 09/24/24 04:00 92 09/24/24 04:00 70 09/24/24 04:00 91 24 H 93 Mechanical Ventilation 70 09/24/24 04:00 91 24 H 09/24/24 04:00 91 24 H 09/24/24 02:04 98.4 F 90 26 H 109/80 93 09/24/24 02:00 90 25 H 09/24/24 02:00 90 25 H 09/24/24 02:00 98 09/24/24 01:46 91 93 Mechanical Ventilation 70 09/24/24 00:00 90 24 H 09/24/24 00:00 90 24 H 09/24/24 00:00 89 09/24/24 00:00 98.7 F 90 24 H 106/80 92 09/23/24 23:51 70 09/23/24 23:51 89 27 H 92 Mechanical Ventilation 70 09/23/24 22:30 91 94 Mechanical Ventilation 70 09/23/24 22:00 98.8 F 91 26 H 113/78 94 09/23/24 22:00 91 26 H 09/23/24 22:00 91 26 H 09/23/24 22:00 91 09/23/24 22:00 70 09/23/24 21:52 91 96 Mechanical Ventilation 80 09/23/24 20:30 90 24 H 94 Mechanical Ventilation 80 09/23/24 20:12 91 94 Mechanical Ventilation 80 09/23/24 20:00 91 26 H 09/23/24 20:00 91 26 H 09/23/24 20:00 80 09/23/24 20:00 92 09/23/24 20:00 99 F 91 26 H 109/85 94 09/23/24 18:51 80 09/23/24 18:51 87 L 09/23/24 18:00 91 09/23/24 18:00 99.5 F 92 24 H 116/84 90 09/23/24 16:30 95 91 Mechanical Ventilation 55 09/23/24 16:00 94 09/23/24 16:00 55 09/23/24 16:00 91 Mechanical Ventilation 55 09/23/24 16:00 94 26 H 09/23/24 16:00 94 26 H 09/23/24 16:00 100.0 F H 93 18 114/72 92 Intake/Output Intake/Output: Intake & Output 09/21/24 09/22/24 09/23/24 09/24/24 23:59 23:59 23:59 23:59 Intake Total 2276.6 1836.2 2135.9 203.4 Output Total 1350 525 500 450 Balance 926.6 1311.2 1635.9 -246.6 Meds/Results Medications: Active Medications Generic Name Dose Route Start Last Admin Trade Name Freq PRN Reason Stop Dose Admin Acetaminophen 650 mg 09/20/24 19:03 09/21/24 11:59 Acetaminophen Elixir 325 Mg/10.15 Ml Udc PO 650 mg Q4H PRN Administration Mild Pain (1-3) or Fever Albuterol/Ipratropium 3 ml 09/22/24 08:26 Ipratropium 0.5 Mg/Albuterol Sulfate 2.5 Mg Ampul.Neb 3 Ml INHALATION Q6HRT PRN wheezing Dextrose 12.5 gm 09/20/24 03:19 Dextrose 50% 25 Gm/50 Ml Syringe IV PUSH PRN PRN Hypoglycemia Protocol Enoxaparin Sodium 40 mg 09/20/24 09:00 09/22/24 08:00 Enoxaparin 40 Mg/0.4 Ml Syringe SUB-Q 40 mg DAILY TOMY Administration Furosemide 80 mg 09/24/24 17:00 Furosemide Inj 100 Mg/10 Ml Vial IV PUSH 09/24/24 17:01 ONCE ONE Glucagon 1 mg 09/20/24 03:19 Glucagon For Inj 1 Mg Vial IM PRN PRN Hypoglycemia Protocol Glucose 15 gm 09/20/24 03:19 Glucose Oral Gel 15 Gm Of Glucse In 37.5 Gm Tube PO PRN PRN Hypoglycemia Protocol Hydrocortisone Sodium Succinate 100 mg 09/24/24 09:00 09/24/24 08:44 Hydrocortisone Sodium Succinate 100 Mg/2 Ml Vial IV PUSH 09/24/24 23:59 100 mg QAM TOMY Administration Dextrose 1,000 mls @ 100 mls/hr 09/20/24 03:19 Dextrose 5% 1,000 Ml IVPB PRN PRN Hypoglycemia Protocol Doxycycline Hyclate 100 mg in 100 mls @ 100 mls/hr 09/20/24 21:00 09/24/24 08:44 Vibramycin 100 Mg/Ns 100 Ml IVPB 09/25/24 20:59 100 mls/hr Q12H TOMY Administration Fentanyl Citrate 2,500 mcg in 250 mls @ 10 mls/hr 09/20/24 21:10 09/24/24 14:00 Fentanyl 2,500 Mcg/Ns 250 Ml IV CONT 100 mcg/hr .Q25H TOMY 10 mls/hr Titration Protocol 100 MCG/HR Midazolam HCl 100 mg in 100 mls @ 4 mls/hr 09/20/24 22:10 09/24/24 14:00 Versed 100 Mg/Ns 100 Ml IV CONT 4 mg/hr .Q25H TOMY 4 mls/hr Titration Protocol 4 MG/HR Cefepime HCl 1 gm in 50 mls @ 100 mls/hr 09/22/24 21:00 09/24/24 08:45 Maxipime 1 Gm/Ns 50 Ml IVPB 100 mls/hr Q12H TOMY Administration Insulin Aspart 4 - 8 units 09/21/24 08:40 09/24/24 12:31 Insulin Aspart (*Bkc) 100 Units/Ml SUB-Q Not Given Q4H TOMY Protocol Insulin Glargine 40 units 09/22/24 09:00 09/24/24 08:44 Insulin Glargine (*Bkc) 100 Units/Ml SUB-Q 40 units QAM TOMY Administration Levothyroxine Sodium 100 mcg 09/21/24 06:30 09/24/24 05:45 Levothyroxine Sodium 100 Mcg Tablet FEED TUBE 100 mcg DAILY@0630 TOMY Administration Multi-Ingred Cream/Lotion/Oil/Oint 1 applic 09/20/24 21:00 09/24/24 08:44 Mineral Oil/White Petrolatum Ointment EACH EYE 1 applic Q12HR TOMY Administration Pantoprazole Sodium 40 mg 09/20/24 09:00 09/24/24 08:44 Pantoprazole Sodium Iv 40 Mg Vial IV PUSH 40 mg QAM TOMY Administration Sodium Bicarbonate 650 mg 09/23/24 08:31 09/24/24 14:26 Sodium Bicarbonate Tab 650 Mg Tablet FEED TUBE 650 mg Q8HR TOMY Administration Sodium Chloride 10 ml 09/20/24 14:00 09/24/24 14:27 Central Line Flush IV PUSH 10 ml Q8HR TOMY Administration Sodium Chloride 20 ml 09/20/24 06:40 Central Line Flush IV PUSH PRN PRN after blood draws Vancomycin HCl 1 each 09/20/24 14:06 Vancomycin For Acute Kidney Injury IVPB PRN PRN Vancomycin Protocol Radiology Results: ITS Impressions Chest CTA 09/20/24 05:30 Impression: Bilateral multifocal pneumonia, most extensively involving the lower lobes. No pulmonary embolus seen. Abdomen X-Ray 09/20/24 05:35 Impression: NG tube in satisfactory position. Abdomen Ultrasound 09/22/24 15:02 IMPRESSION: 1: Gallbladder wall thickening, nonspecific. No evidence for gallstones. 2: Fatty infiltration of the liver. Renal Ultrasound 09/22/24 15:14 IMPRESSION: 1. Normal kidneys without hydronephrosis. Chest X-Ray 09/24/24 06:18 IMPRESSION: 1. Stable diffuse lung disease, consistent with pneumonia. Labs Labs: Laboratory Tests 09/24/24 05:50 09/24/24 05:50 Calcium 7.6 L Phosphorus 5.4 H Magnesium 2.5 H Total Bilirubin 1.0 AST 807 H ALT 589 H Alkaline Phosphatase 591 H Total Protein 6.0 L Albumin 3.3 L
[2024-09-24 16:23] LABS: Glucose Point of Care 120 mg/dl (65-105)
[2024-09-24 21:27] LABS: Glucose Point of Care 108 mg/dl (65-105)
[2024-09-25] VITALS (24 sets, daily range): BP systolic 105–137; BP diastolic 64–91; PULSE 75–122; RESP 23–31; TEMP 36.6–37.6; O2SAT 88–96
[2024-09-25 03:26] LABS: Glucose Point of Care 131 mg/dl (65-105)
[2024-09-25 04:55] LABS: Alveolar/Arterial O2 Gradient 383.6 mmHg; Base Excess ABG -4.3 mEq/l (+/-2.0); Carboxyhemoglobin 0.9 % THb (0-2.0); Device VENTILATOR; Fractional Inspired Oxygen 70 %; HCO3 ABG 21.4 mEq/l (22.0-26.0); Methemoglobin ABG 0.3 %THb (0-1.5); Modified Allen's Test Pass; Oxygen Content ABG 12.1 %vol (16.0-22.0); Oxygen Saturation ABG 93.1 % (95.0-100.0); Oxyhemoglobin 91.1 % THb (90.0-100.0); PCO2 ABG 41.8 mmHg (35.0-45.0); PO2 ABG 70.6 mmHg (80.0-100.0); PO2 FiO2 Ratio Arterial Blood 1.01 %; Reduced Hemoglobin 7.7 %THb (0-5.0); Site Drawn RIGHT RADIAL; Total Hemoglobin 9.4 g/dL (12.0-18.0); pH ABG 7.327 (7.350-7.450)
[2024-09-25 04:56] LABS: Arterial Blood Gas PEEP 12 cmH2O; Arterial Blood Gas Tidal Volume 380 ml; Arterial Blood Gas Vent Mode CMV; Arterial Blood Gas Ventilator rate 24 /MIN
[2024-09-25 05:50] LABS: Hematocrit 27.8 % (37.0-47.0); Hemoglobin 9.1 g/dL (12.0-15.0); Immature Platelet Fraction Pct 10.1 % (0.9-11.2); Mean Corpuscular HGB Conc 32.7 g/dl (32-36); Mean Corpuscular Hemoglobin 24.8 pg (26-34); Mean Corpuscular Volume 75.7 fl (80-100); Platelet Count Result 96 k/mm3 (150-375); Red Blood Count 3.67 M/mm3 (4.2-5.4); Red Cell Distribution Width 17.8 % (11.5-14.5); White Blood Count 20.7 K/mm3 (4.5-10.0)
[2024-09-25 06:00] LABS: Alanine Aminotransferase 398 U/L (6-35); Albumin Level 3.1 g/dL (3.5-5.1); Alkaline Phosphatase 749 U/L (38-126); Anion Gap 16 mmol/L (4-12); Aspartate Amino Transferase 312 U/L (14-36); Calcium 8.4 mg/dL (8.4-10.2); Carbon Dioxide 22 mmol/L (22-30); Chloride 105 mmol/L (98-107); Estimated CRCL calculation 17 ml/min; Estimated Glomerular Filt Rate 14; Glucose 126 mg/dL (65-110); Magnesium 2.5 mg/dL (1.6-2.3); Phosphorus 3.9 mg/dL (2.5-4.5); Sodium 143 mmol/L (137-145)
[2024-09-25] MEDS: SODIUM BICARBONATE TAB 650 MG TABLET FEED TUBE ×3 (06:13→21:39)
[2024-09-25] MEDS: LEVOTHYROXINE SODIUM 100 MCG TABLET FEED TUBE (06:13)
[2024-09-25] MEDS: CENTRAL LINE FLUSH 10 ML IV PUSH ×3 (06:13→21:39)
[2024-09-25 06:21] LABS: Glucose Point of Care 96 mg/dl (65-105)
[2024-09-25 06:36] LABS: Blood Urea Nitrogen 129 mg/dL (7-17)
[2024-09-25] MEDS: FENTANYL 2,500MCG/NS250ML(*CRX 2,500 MCG/250 ML BAG 10 MCG IV CONT (06:44)
[2024-09-25 07:57] LABS: Glucose Point of Care 126 mg/dl (65-105)
[2024-09-25] MEDS: DOXYCYCLINE 100 MG/NS 100 ML 100 MG/100 ML BAG IVPB (08:42)
[2024-09-25] MEDS: CEFEPIME 1 GM/NS 50 ML 1 GM/50 ML BAG IVPB ×2 (08:42→21:39)
[2024-09-25] MEDS: MINERAL OIL/WHITE PETROLATUM OINTMENT 1 APPLIC EACH EYE ×2 (08:43→21:41)
[2024-09-25] MEDS: PANTOPRAZOLE SODIUM IV 40 MG VIAL IV PUSH (08:43)
[2024-09-25] MEDS: INSULIN GLARGINE (*BKC) 100 UNITS/ML 40 UNITS SUB-Q (08:51)
--- NOTE | 2024-09-25 09:16 | WPDINTPN ---
Progress Note: A&P Assessment and Plan (1) Acute hypoxic respiratory failure: Code(s): J96.01 - Acute respiratory failure with hypoxia Status: Acute Assessment and Plan: Acute respiratory failure secondary to influenza A and pneumonia proceeding to ARDS 09/20: Intubated in the ER Patient now intubated and on mechanical ventilation ABG reviewed. Peep is at 12 FiO2 70%. Continue to wean FiO2 Continue sedation with Versed and fentanyl Bronchodilators 09/20: CTA chest Bilateral multifocal pneumonia, most extensively involving the lower lobes. No pulmonary embolus seen. (2) Uncontrolled diabetes mellitus: Status: Acute Assessment and Plan: SSI Continue Lantus Continue tube feeds (3) Septic shock: Code(s): A41.9 - Sepsis, unspecified organism; R65.21 - Severe sepsis with septic shock Status: Acute Assessment and Plan: Septic shock secondary to pneumonia Hold further IV fluids Off vasopressors off Stress dose steroids Continue Bicarb per tube for acidosis 09/19: Blood cultures are negative till now 09/21: Sputum cultures growing Staph aureus Currently on vancomycin, cefepime and doxycycline (4) PNA (pneumonia): Code(s): J18.9 - Pneumonia, unspecified organism Status: Acute Assessment and Plan: See above (5) Hypothyroidism: Code(s): E03.9 - Hypothyroidism, unspecified Status: Acute Assessment and Plan: Continue levothyroxine Normal TSH (6) Influenza: Code(s): J11.1 - Influenza due to unidentified influenza virus with other respiratory manifestations Status: Acute Assessment and Plan: Isolation Status post Tamiflu (7) SCAR (acute kidney injury): Code(s): N17.9 - Acute kidney failure, unspecified Status: Acute Assessment and Plan: Patient presented with elevated creatinine which has been gradually getting worse This is likely multifactorial secondary to sepsis, shock possible contrast induced injury. Patient is also on medications including vancomycin Normal CK Renal ultrasound showed normal kidney without hydronephrosis Patient at risk of needing [employer] Discussed with nephrology today regarding initiation of hemodialysis. 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 Recommends continuing Lasix for another 24 hours and re-evaluate need for dialysis 09/25: Worsening and creatinine and BUN despite diuretics, will discuss with Nephrology regarding dialysis (8) Shock liver: Code(s): K72.00 - Acute and subacute hepatic failure without coma Status: Acute Assessment and Plan: Elevated AST and ALT likely secondary to shock liver and cholestasis secondary to sepsis and shock US right upper quadrant ultrasound shows gallbladder wall thickening nonspecific no evidence of gallstones. Fatty infiltration of the liver Negative hepatitis panel LFTs improving, bilirubin is normal Continue to monitor (9) Thrombocytopenia: Code(s): D69.6 - Thrombocytopenia, unspecified Status: Acute Assessment and Plan: Gradual in platelet count since admission likely multifactorial secondary to sepsis medications and hemodilution Hold Lovenox -platelets a started to improve, will continue to monitor Plan DVT prophylaxis -SCDs, holding Lovenox due to thrombocytopenia, Stress ulcer prophylaxis -Protonix Nutrition - tolerating tube feed Code Status - Full Code Total Critical Care Mono: 38 minutes Due to a high probability of clinically significant, life threatening deterioration, the patient required my highest level of preparedness to intervene emergently and I personally spent this critical care time directly and personally managing the patient. This critical care time included obtaining a history; examining the patient; pulse oximetry; ordering and review of studies; arranging urgent treatment with development of a management plan; evaluation of patient's response to treatment; frequent reassessment; and discussions with other providers. It was exclusive of separately billable procedures and treating other patients and teaching time. Please see Assessment and Plan section and the rest of the note for further information on patient assessment and treatment This dictation may have been done utilizing a voice recognition system. Attempts have been made to correct errors. However, there may be uncorrected grammatical, spelling, and recognitions errors present. Subjective Date/time seen: 09/25/24 09:16 Interval history: Reason for consult: Acute respiratory failure, pneumonia, septic shock, acute kidney injury, pneumonia, hyperglycemia 09/25/2024: Patient seen and examined the ICU, remains intubated on CMV mode of ventilation, peep of 12, 70% FiO2. Sedated with fentanyl and Versed infusion. Patient does not open her eyes or follow simple commands. Afebrile, adequate urine output in response to diuretics. Off pressors. Hemodynamically stable. Tolerating tube feeds Review of Systems Review of Systems: ROS unobtainable: Yes unobtainable due to endotracheal tube, unobtainable due to medical condition and unobtainable due to mental status Exam Narrative: General: Pt is sedated, intubated and on mechanical ventilation HEENT: Pupils equal reactive, sclera is clear, ETT in place Lungs/Chest: Trachea central Coarse BS B/L, No crackles or wheezing. Decreased air entry on right > left Cardiac: RRR. Normal S1 S2. No murmurs Circulation: Pedal pulses are weak but palpable, feet are much warm. mottling of the skin on the knees bilaterally Abdomen: Decreased bowel sounds. Soft. NT. ND. Extremities: Positive edema bilateral lower extremities up to the thighs. Warm : Leach in place Neurologic: Unable to assess due to sedation. Moves all 4 extremities to painful stimuli. Objective Data Vital Signs Vital Signs: Vital Signs - 24 hr 09/24/24 10:00 09/24/24 10:00 09/24/24 10:00 Temperature 98.7 F Pulse Rate 91 90 91 Respiratory Rate 24 H 24 H 22 H Blood Pressure 115/79 Pulse Oximetry 92 Oxygen Delivery Fraction of Inspired Oxygen 09/24/24 10:00 09/24/24 10:36 09/24/24 12:00 Temperature 98.7 F Pulse Rate 92 91 92 Respiratory Rate 23 H Blood Pressure 120/79 Pulse Oximetry 93 91 Oxygen Delivery Mechanical Ventilation Fraction of Inspired Oxygen 70 09/24/24 12:00 09/24/24 12:00 09/24/24 12:00 Temperature Pulse Rate 91 Respiratory Rate Blood Pressure Pulse Oximetry 91 Oxygen Delivery Mechanical Ventilation Fraction of Inspired Oxygen 70 70 09/24/24 13:56 09/24/24 14:00 09/24/24 14:00 Temperature Pulse Rate 91 88 88 Respiratory Rate 27 H 27 H Blood Pressure Pulse Oximetry 98 Oxygen Delivery Mechanical Ventilation Fraction of Inspired Oxygen 70 09/24/24 14:00 09/24/24 14:00 09/24/24 16:00 Temperature 98.3 F 97.9 F Pulse Rate 88 88 88 Respiratory Rate 27 H 26 H Blood Pressure 110/72 107/75 Pulse Oximetry 91 92 Oxygen Delivery Fraction of Inspired Oxygen 09/24/24 16:00 09/24/24 16:00 09/24/24 16:00 Temperature Pulse Rate 89 89 Respiratory Rate 25 H 25 H Blood Pressure Pulse Oximetry Oxygen Delivery Fraction of Inspired Oxygen 70 09/24/24 16:00 09/24/24 16:00 09/24/24 16:43 Temperature Pulse Rate 89 88 Respiratory Rate Blood Pressure Pulse Oximetry 92 92 Oxygen Delivery Mechanical Ventilation Mechanical Ventilation Fraction of Inspired Oxygen 70 70 09/24/24 18:00 09/24/24 18:00 09/24/24 18:00 Temperature 98.1 F Pulse Rate 90 90 78 Respiratory Rate 25 H 25 H Blood Pressure 107/73 Pulse Oximetry 91 Oxygen Delivery Fraction of Inspired Oxygen 09/24/24 18:00 09/24/24 20:00 09/24/24 20:00 Temperature Pulse Rate 78 88 88 Respiratory Rate 25 H 25 H Blood Pressure Pulse Oximetry Oxygen Delivery Fraction of Inspired Oxygen 09/24/24 20:00 09/24/24 20:00 09/24/24 21:00 Temperature 98.3 F Pulse Rate 88 90 Respiratory Rate 25 H 26 H Blood Pressure 105/73 Pulse Oximetry 93 94 Oxygen Delivery Mechanical Ventilation Fraction of Inspired Oxygen 70 70 09/24/24 21:34 09/24/24 22:00 09/24/24 22:00 Temperature Pulse Rate 88 88 88 Respiratory Rate 25 H 30 H 30 H Blood Pressure Pulse Oximetry Oxygen Delivery Fraction of Inspired Oxygen 09/24/24 22:00 09/24/24 22:00 09/24/24 22:40 Temperature 98.5 F Pulse Rate 88 88 91 Respiratory Rate 30 H Blood Pressure 105/73 Pulse Oximetry 93 97 Oxygen Delivery Mechanical Ventilation Fraction of Inspired Oxygen 70 09/25/24 00:00 09/25/24 00:00 09/25/24 00:00 Temperature 98.5 F Pulse Rate 88 92 Respiratory Rate 30 H 30 H Blood Pressure 107/68 Pulse Oximetry 95 Oxygen Delivery Fraction of Inspired Oxygen 70 09/25/24 00:00 09/25/24 01:00 09/25/24 01:00 Temperature Pulse Rate 92 91 91 Respiratory Rate 30 H 26 H Blood Pressure Pulse Oximetry 96 Oxygen Delivery Fraction of Inspired Oxygen 65 09/25/24 01:20 09/25/24 01:22 09/25/24 02:00 Temperature Pulse Rate 90 92 Respiratory Rate 29 H Blood Pressure Pulse Oximetry 93 Oxygen Delivery Mechanical Ventilation Fraction of Inspired Oxygen 65 65 09/25/24 02:00 09/25/24 02:00 09/25/24 02:00 Temperature 98.9 F Pulse Rate 92 92 92 Respiratory Rate 29 H 29 H Blood Pressure 116/78 Pulse Oximetry 95 Oxygen Delivery Fraction of Inspired Oxygen 09/25/24 04:00 09/25/24 04:00 09/25/24 04:00 Temperature Pulse Rate 94 Respiratory Rate Blood Pressure Pulse Oximetry 95 Oxygen Delivery Fraction of Inspired Oxygen 70 70 09/25/24 04:00 09/25/24 04:00 09/25/24 04:00 Temperature 98.4 F Pulse Rate 95 96 96 Respiratory Rate 31 H 30 H 30 H Blood Pressure 114/71 Pulse Oximetry 91 Oxygen Delivery Fraction of Inspired Oxygen 09/25/24 04:51 09/25/24 06:00 09/25/24 06:00 Temperature 98 F Pulse Rate 96 93 93 Respiratory Rate 29 H Blood Pressure 111/75 Pulse Oximetry 93 92 Oxygen Delivery Mechanical Ventilation Fraction of Inspired Oxygen 70 09/25/24 06:00 09/25/24 06:00 09/25/24 06:44 Temperature Pulse Rate 94 94 95 Respiratory Rate 29 H 29 H 28 H Blood Pressure Pulse Oximetry Oxygen Delivery Fraction of Inspired Oxygen 09/25/24 06:44 09/25/24 08:00 09/25/24 08:00 Temperature Pulse Rate 95 95 95 Respiratory Rate 28 H 28 H Blood Pressure Pulse Oximetry 92 Oxygen Delivery Mechanical Ventilation Fraction of Inspired Oxygen 70 09/25/24 08:00 09/25/24 08:00 09/25/24 08:28 Temperature 98.0 F Pulse Rate 93 93 Respiratory Rate 26 H Blood Pressure 114/76 Pulse Oximetry 92 92 Oxygen Delivery Mechanical Ventilation Fraction of Inspired Oxygen 70 70 Intake/Output Intake/Output: Intake & Output 09/22/24 09/23/24 09/24/24 09/25/24 23:59 23:59 23:59 23:59 Intake Total 1836.2 2135.9 1816.4 655.3 Output Total 321 179 3840 1150 Balance 1311.2 1635.9 366.4 -494.7 Meds/Results Medications: Active Medications Generic Name Dose Route Start Last Admin Trade Name Freq PRN Reason Stop Dose Admin Acetaminophen 650 mg 09/20/24 19:03 09/21/24 11:59 Acetaminophen Elixir 325 Mg/10.15 Ml Udc PO 650 mg Q4H PRN Administration Mild Pain (1-3) or Fever Albuterol/Ipratropium 3 ml 09/22/24 08:26 Ipratropium 0.5 Mg/Albuterol Sulfate 2.5 Mg Ampul.Neb 3 Ml INHALATION Q6HRT PRN wheezing Dextrose 12.5 gm 02/19/25 03:19 Dextrose 50% 25 Gm/50 Ml Syringe IV PUSH PRN PRN Hypoglycemia Protocol Enoxaparin Sodium 40 mg 09/20/24 09:00 09/22/24 08:00 Enoxaparin 40 Mg/0.4 Ml Syringe SUB-Q 40 mg DAILY TOMY Administration Glucagon 1 mg 09/20/24 03:19 Glucagon For Inj 1 Mg Vial IM PRN PRN Hypoglycemia Protocol Glucose 15 gm 09/20/24 03:19 Glucose Oral Gel 15 Gm Of Glucse In 37.5 Gm Tube PO PRN PRN Hypoglycemia Protocol Dextrose 1,000 mls @ 100 mls/hr 09/20/24 03:19 Dextrose 5% 1,000 Ml IVPB PRN PRN Hypoglycemia Protocol Doxycycline Hyclate 100 mg in 100 mls @ 100 mls/hr 09/20/24 21:00 09/25/24 08:42 Vibramycin 100 Mg/Ns 100 Ml IVPB 09/25/24 20:59 100 mls/hr Q12H TOMY Administration Fentanyl Citrate 2,500 mcg in 250 mls @ 10 mls/hr 09/20/24 21:10 09/25/24 06:44 Fentanyl 2,500 Mcg/Ns 250 Ml IV CONT 100 mcg/hr .Q25H TOMY 10 mls/hr Administration Protocol 100 MCG/HR Midazolam HCl 100 mg in 100 mls @ 4 mls/hr 09/20/24 22:10 09/25/24 06:00 Versed 100 Mg/Ns 100 Ml IV CONT 4 mg/hr .Q25H TOMY 4 mls/hr Titration Protocol 4 MG/HR Cefepime HCl 1 gm in 50 mls @ 100 mls/hr 09/22/24 21:00 09/25/24 08:42 Maxipime 1 Gm/Ns 50 Ml IVPB 100 mls/hr Q12H TOMY Administration Insulin Aspart 4 - 8 units 09/21/24 08:40 09/25/24 08:51 Insulin Aspart (*Bkc) 100 Units/Ml SUB-Q Not Given Q4H [facility] Protocol Insulin Glargine 40 units 09/22/24 09:00 09/25/24 08:51 Insulin Glargine (*Bkc) 100 Units/Ml SUB-Q 40 units QAM TOMY Administration Levothyroxine Sodium 100 mcg 09/21/24 06:30 09/25/24 06:13 Levothyroxine Sodium 100 Mcg Tablet FEED TUBE 100 mcg DAILY@0630 TOMY Administration Multi-Ingred Cream/Lotion/Oil/Oint 1 applic 09/20/24 21:00 09/25/24 08:43 Mineral Oil/White Petrolatum Ointment EACH EYE 1 applic Q12HR TOMY Administration Pantoprazole Sodium 40 mg 09/20/24 09:00 09/25/24 08:43 Pantoprazole Sodium Iv 40 Mg Vial IV PUSH 40 mg QAM TOMY Administration Sodium Bicarbonate 650 mg 09/23/24 08:31 09/25/24 06:13 Sodium Bicarbonate Tab 650 Mg Tablet FEED TUBE 650 mg Q8HR TOMY Administration Sodium Chloride 10 ml 09/20/24 14:00 09/25/24 06:13 Central Line Flush IV PUSH 10 ml Q8HR TOMY Administration Sodium Chloride 20 ml 09/20/24 06:40 Central Line Flush IV PUSH PRN PRN after blood draws Vancomycin HCl 1 each 09/20/24 14:06 Vancomycin For Acute Kidney Injury IVPB PRN PRN Vancomycin Protocol Radiology Results: ITS Impressions Chest CTA 09/20/24 05:30 Impression: Bilateral multifocal pneumonia, most extensively involving the lower lobes. No pulmonary embolus seen. Abdomen X-Ray 09/20/24 05:35 Impression: NG tube in satisfactory position. Abdomen Ultrasound 09/22/24 15:02 IMPRESSION: 1: Gallbladder wall thickening, nonspecific. No evidence for gallstones. 2: Fatty infiltration of the liver. Renal Ultrasound 09/22/24 15:14 IMPRESSION: 1. Normal kidneys without hydronephrosis. Chest X-Ray 09/25/24 06:49 Impression: Stable extensive bilateral pulmonary consolidation, compatible diffuse pneumonia. Support tubes, as above. Labs Labs: Laboratory Results - last 24 hr 09/24/24 09/24/24 09/24/24 11:25 16:20 20:59 WBC RBC Hgb Hct MCV MCH MCHC RDW Plt Count MPV % Immature Plt Fraction Puncture Site ABG pH ABG pCO2 ABG pO2 ABG PO2/FiO2 Ratio ABG HCO3 ABG O2 Saturation ABG O2 Content ABG Base Excess A-a Gradient Oxyhemoglobin Carboxyhemoglobin Methemoglobin Reduced Hemoglobin Total Hemoglobin O2 Delivery Device O2 Liters/Min Minute Volume Vent Rate Vent Mode FiO2 Tidal Volume PEEP Peak Inspir Pressure Pressure Support Sodium Potassium Chloride Carbon Dioxide Anion Gap BUN Creatinine Estim Creat Clear Calc Estimated GFR Glucose POC Capillary Glucose 143 H 120 H 108 H Calcium Phosphorus Magnesium Total Bilirubin AST ALT Alkaline Phosphatase Total Protein Albumin 09/25/24 09/25/24 09/25/24 01:07 04:51 05:24 WBC RBC Hgb Hct MCV MCH MCHC RDW Plt Count MPV % Immature Plt Fraction Puncture Site Right radial ABG pH 7.327 L ABG pCO2 41.8 ABG pO2 70.6 L ABG PO2/FiO2 Ratio 1.01 ABG HCO3 21.4 L ABG O2 Saturation 93.1 L ABG O2 Content 12.1 L ABG Base Excess -4.3 A-a Gradient 383.6 Oxyhemoglobin 91.1 Carboxyhemoglobin 0.9 Methemoglobin 0.3 Reduced Hemoglobin 7.7 H Total Hemoglobin 9.4 L O2 Delivery Device Ventilator O2 Liters/Min Not Reportable Minute Volume Not Reportable Vent Rate 24 Vent Mode Cmv FiO2 70 Tidal Volume 380 PEEP 12 Peak Inspir Pressure Not Reportable Pressure Support Not Reportable Sodium Potassium Chloride Carbon Dioxide Anion Gap BUN Creatinine Estim Creat Clear Calc Estimated GFR Glucose POC Capillary Glucose 131 H 96 Calcium Phosphorus Magnesium Total Bilirubin AST ALT Alkaline Phosphatase Total Protein Albumin 09/25/24 09/25/24 05:27 07:45 WBC 20.7 H RBC 3.67 L Hgb 9.1 L Hct 27.8 L MCV 75.7 L MCH 24.8 L MCHC 32.7 RDW 17.8 H Plt Count 96 L MPV TNP % Immature Plt Fraction 10.1 Puncture Site ABG pH ABG pCO2 ABG pO2 ABG PO2/FiO2 Ratio ABG HCO3 ABG O2 Saturation ABG O2 Content ABG Base Excess A-a Gradient Oxyhemoglobin Carboxyhemoglobin Methemoglobin Reduced Hemoglobin Total Hemoglobin O2 Delivery Device O2 Liters/Min Minute Volume Vent Rate Vent Mode FiO2 Tidal Volume PEEP Peak Inspir Pressure Pressure Support Sodium 143 Potassium 4.0 Chloride 105 Carbon Dioxide 22 Anion Gap 16 H BUN 129 H D Creatinine 3.67 H Estim Creat Clear Calc 17 Estimated GFR 14 L Glucose 126 H POC Capillary Glucose 126 H Calcium 8.4 Phosphorus 3.9 Magnesium 2.5 H Total Bilirubin 1.0 AST 312 H ALT 398 H Alkaline Phosphatase 749 H Total Protein 6.0 L Albumin 3.1 L Quality VTE Prophylaxis VTE prophylaxis: pharmacologic ordered
[2024-09-25 10:51] LABS: INR 1.4; Prothrombin Time 17.8 Seconds (11.1-14.7)
--- NOTE | 2024-09-25 10:54 | PCFNICU ---
ICU Rounding Note: Pt current nutrition is Glucerna 1.2 Nutrition recommendation: Nepro at 40 ml/hr. Last recorded weight is 68.9 kg, up from 59.9 kg on admit. Bowel Motility: +BM reported 09/21 Labs Reviewed: Glu 126, BUN 129, GFR 14, Cr 3.67, Alb 3.1 Meds Noted:Lantus, Versed,, Fentanyl, Protonix. Skin: WNL Additional Notes: Patient remains on mechanical vent. Tube feedings are being tolerated. Discussions in rounds regarding Renal labs, recommending tube feedings to change to Nepro at 40 ml/hr. Flush 30 ml q 4 hours. Discussions regarding possible dialysis. Agree with diet orders. Following daily in ICU rounds. Will monitor weight, labs, skin, diet order, meds every Wednesday and Wednesday.
--- NOTE | 2024-09-25 11:08 | P.PNNP_ITS ---
Progress Note: A&P Assessment and Plan (1) SCAR (acute kidney injury): Code(s): N17.9 - Acute kidney failure, unspecified Status: Acute Assessment and Plan: * as noted by labs starting on 09/22 * normal creatinine at baseline * multifactorial etiology: * prerenal factors * insensible losses (from high fevers on admission) * hemodynamic instability/shock * sepsis/infection (pneumonia + influenza) * contrast (CTA chest on 09/20) * other(?) * evaluation noted: * urine electrolytes prerenal x 2 * CPK okay * renal ultrasound normal * proteinuria noted (possibly due to diabetes) * urine eosinophils negative * UA with protein and glucose * better urine output noted with diuretic trial on 09/23 and 09/24 * still remains at risk for METAL HANGER/dialysis (due to rising BUN + creatinine) * follow trend of repeat labs and UOP for potential renal recovery (2) Septic shock: Code(s): A41.9 - Sepsis, unspecified organism; R65.21 - Severe sepsis with septic shock Status: Acute Assessment and Plan: * presumably due to pneumonia and possibly influenza * s/p fluid resuscitation and IV albumin * weaned off vasopressor therapy * culture data noted * blood culture negative to date * sputum culture with Staph aureus * off stress dose steroids * on antibiotics * follow trend of hemodynamics (3) Acute hypoxic respiratory failure: Code(s): J96.01 - Acute respiratory failure with hypoxia Status: Acute Assessment and Plan: * due to pneumonia and influenza * imaging noted: * chest CTA (on 09/20): bilateral multifocal pneumonia, most extensively involving the lower lobes; no pulmonary embolus seen * remains on mechanical ventilation * intubated in the ER for airway protection and ongoing hypoxic respiratory failure unresponsive to BiPAP therapy * weaning as able (4) Influenza: Code(s): J11.1 - Influenza due to unidentified influenza virus with other respiratory manifestations Status: Acute Assessment and Plan: * as noted by testing in the ER * resiratory isolation * on Tamiflu (5) PNA (pneumonia): Code(s): J18.9 - Pneumonia, unspecified organism Status: Acute Assessment and Plan: * see #2 (6) Anemia, unspecified: Code(s): D64.9 - Anemia, unspecified Status: Acute Assessment and Plan: * related to SCAR and acute illness * PRBC transfusion per protocol * consider EMANUEL given renal dysfunction * follow trend of H/H (7) Metabolic acidosis: Code(s): E87.20 - Acidosis, unspecified Status: Acute Assessment and Plan: * due to SCAR and possibly mild lactic acidosis (on admission) * s/p IVF resuscitation * on sodium bicarbonate per tube to compensate * follow CO2 levels (8) Shock liver: Code(s): K72.00 - Acute and subacute hepatic failure without coma Status: Acute Assessment and Plan: * slow improvement noted * as noted by elevated AST and ALT * alkaline phosphatase and bilirubin normal * slow improvement noted * RUQ ultrasound noted: * gallbladder wall thickening * no evidence of gallstones * fatty infiltration of the liver * negative hepatitis panel * follow trend (9) Thrombocytopenia: Code(s): D69.6 - Thrombocytopenia, unspecified Status: Acute Assessment and Plan: * slightly better * downward trend of platelets noted since admission * probably related to sepsis/infection and possibly medications and fluid shifts * using SCDs instead of lovenox/heparin for DVT prophylaxis * follow trend (10) Uncontrolled diabetes mellitus: Status: Acute Assessment and Plan: * follow accu-cheks * glycemic control per intensivisit Discussed case with Dr. Ramirez. Will continue to follow. L Subjective Date/time seen: 09/25/24 11:08 Interval history: Follow-up for acute kidney injury/acute renal failure. Good urine output in response to IV diuretics but at the expense of renal function/creatinine & BUN as these parameters are worse by AM labs; remains intubated/sedated and on mechanical ventilation; hemodynamically stable without the need for vasopressors; no acute issues/events overnight or earlier this morning. Exam 2 Narrative: General: WD/WN female in NAD Heart: normal S1 and S2; no rub Lungs: coarse breath sounds Abdomen: soft, nontender, nondistended, positive bowel sounds Extremities: no cyanosis or clubbing; no edema Skin: no rash Objective Data Vital Signs Vital Signs: Vital Signs Temp Pulse Resp BP Pulse Ox O2 Del Method FiO2 09/25/24 10:37 92 Mechanical Ventilation 70 09/25/24 10:00 75 28 H 09/25/24 10:00 95 28 H 09/25/24 10:00 95 09/25/24 10:00 97.8 F 93 27 H 115/76 91 09/25/24 08:28 93 92 Mechanical Ventilation 70 09/25/24 08:00 95 28 H 09/25/24 08:00 75 28 H 09/25/24 08:00 98.0 F 93 26 H 114/76 92 09/25/24 08:00 70 09/25/24 08:00 95 09/25/24 08:00 95 28 H 92 Mechanical Ventilation 70 09/25/24 06:44 95 28 H 09/25/24 06:44 95 28 H 09/25/24 06:00 94 29 H 09/25/24 06:00 94 29 H 09/25/24 06:00 98 F 93 29 H 111/75 92 09/25/24 06:00 93 09/25/24 04:51 96 93 Mechanical Ventilation 70 09/25/24 04:00 96 30 H 09/25/24 04:00 96 30 H 09/25/24 04:00 98.4 F 95 31 H 114/71 91 09/25/24 04:00 70 09/25/24 04:00 94 09/25/24 04:00 95 70 09/25/24 02:00 98.9 F 92 29 H 116/78 95 09/25/24 02:00 92 09/25/24 02:00 92 29 H 09/25/24 02:00 92 29 H 09/25/24 01:22 90 93 Mechanical Ventilation 65 09/25/24 01:20 65 09/25/24 01:00 91 09/25/24 01:00 91 26 H 96 65 09/25/24 00:00 92 30 H 09/25/24 00:00 92 30 H 09/25/24 00:00 98.5 F 88 30 H 107/68 95 09/25/24 00:00 70 09/24/24 22:40 91 97 Mechanical Ventilation 70 09/24/24 22:00 98.5 F 88 30 H 105/73 93 09/24/24 22:00 88 09/24/24 22:00 88 30 H 09/24/24 22:00 88 30 H 09/24/24 21:34 88 25 H 09/24/24 21:00 90 26 H 94 Mechanical Ventilation 70 09/24/24 20:00 98.3 F 88 25 H 105/73 93 09/24/24 20:00 70 09/24/24 20:00 88 09/24/24 20:00 88 25 H 09/24/24 18:00 78 25 H 09/24/24 18:00 78 25 H 09/24/24 18:00 90 09/24/24 18:00 98.1 F 90 25 H 107/73 91 Intake/Output Intake/Output: Intake & Output 09/22/24 09/23/24 09/24/24 09/25/24 23:59 23:59 23:59 23:59 Intake Total 1836.2 2135.9 1816.4 1590.6 Output Total 291 146 7823 2160 Balance 1311.2 1635.9 366.4 -569.4 Meds/Results Medications: Active Medications Generic Name Dose Route Start Last Admin Trade Name Freq PRN Reason Stop Dose Admin Acetaminophen 650 mg 09/20/24 19:03 09/21/24 11:59 Acetaminophen Elixir 325 Mg/10.15 Ml Udc PO 650 mg Q4H PRN Administration Mild Pain (1-3) or Fever Albuterol/Ipratropium 3 ml 09/22/24 08:26 Ipratropium 0.5 Mg/Albuterol Sulfate 2.5 Mg Ampul.Neb 3 Ml INHALATION Q6HRT PRN wheezing Dextrose 12.5 gm 09/20/24 03:19 Dextrose 50% 25 Gm/50 Ml Syringe IV PUSH PRN PRN Hypoglycemia Protocol Enoxaparin Sodium 40 mg 09/20/24 09:00 09/22/24 08:00 Enoxaparin 40 Mg/0.4 Ml Syringe SUB-Q 40 mg DAILY TOMY Administration Glucagon 1 mg 09/20/24 03:19 Glucagon For Inj 1 Mg Vial IM PRN PRN Hypoglycemia Protocol Glucose 15 gm 09/20/24 03:19 Glucose Oral Gel 15 Gm Of Glucse In 37.5 Gm Tube PO PRN PRN Hypoglycemia Protocol Dextrose 1,000 mls @ 100 mls/hr 09/20/24 03:19 Dextrose 5% 1,000 Ml IVPB PRN PRN Hypoglycemia Protocol Doxycycline Hyclate 100 mg in 100 mls @ 100 mls/hr 09/20/24 21:00 09/25/24 09:45 Vibramycin 100 Mg/Ns 100 Ml IVPB 09/25/24 20:59 Infused Q12H TOMY Infusion Fentanyl Citrate 2,500 mcg in 250 mls @ 10 mls/hr 09/20/24 21:10 09/25/24 14:00 Fentanyl 2,500 Mcg/Ns 250 Ml IV CONT 100 mcg/hr .Q25H TOMY 10 mls/hr Titration Protocol 100 MCG/HR Midazolam HCl 100 mg in 100 mls @ 4 mls/hr 09/20/24 22:10 09/25/24 14:00 Versed 100 Mg/Ns 100 Ml IV CONT 4 mg/hr .Q25H TOMY 4 mls/hr Titration Protocol 4 MG/HR Cefepime HCl 1 gm in 50 mls @ 100 mls/hr 09/22/24 21:00 09/25/24 09:15 Maxipime 1 Gm/Ns 50 Ml IVPB Infused Q12H TOMY Infusion Insulin Aspart 4 - 8 units 09/21/24 08:40 09/25/24 12:10 Insulin Aspart (*Bkc) 100 Units/Ml SUB-Q Not Given Q4H [facility] Protocol Insulin Glargine 40 units 09/22/24 09:00 09/25/24 08:51 Insulin Glargine (*Bkc) 100 Units/Ml SUB-Q 40 units QAM TOMY Administration Levothyroxine Sodium 100 mcg 09/21/24 06:30 09/25/24 06:13 Levothyroxine Sodium 100 Mcg Tablet FEED TUBE 100 mcg DAILY@0630 TOMY Administration Multi-Ingred Cream/Lotion/Oil/Oint 1 applic 09/20/24 21:00 09/25/24 08:43 Mineral Oil/White Petrolatum Ointment EACH EYE 1 applic Q12HR TOMY Administration Multi-Ingred Cream/Lotion/Oil/Oint 1 applic 09/25/24 21:00 Mineral Oil/White Petrolatum Ointment EACH EYE Q12HR TOMY Pantoprazole Sodium 40 mg 09/20/24 09:00 09/25/24 08:43 Pantoprazole Sodium Iv 40 Mg Vial IV PUSH 40 mg QAM TOMY Administration Sodium Bicarbonate 650 mg 09/23/24 08:31 09/25/24 13:10 Sodium Bicarbonate Tab 650 Mg Tablet FEED TUBE 650 mg Q8HR TOMY Administration Sodium Chloride 10 ml 09/20/24 14:00 09/25/24 14:12 Central Line Flush IV PUSH 10 ml Q8HR TOMY Administration Sodium Chloride 20 ml 09/20/24 06:40 Central Line Flush IV PUSH PRN PRN after blood draws Vancomycin HCl 1 each 09/20/24 14:06 Vancomycin For Acute Kidney Injury IVPB PRN PRN Vancomycin Protocol Radiology Results: ITS Impressions Chest CTA 09/20/24 05:30 Impression: Bilateral multifocal pneumonia, most extensively involving the lower lobes. No pulmonary embolus seen. Abdomen X-Ray 09/20/24 05:35 Impression: NG tube in satisfactory position. Abdomen Ultrasound 09/22/24 15:02 IMPRESSION: 1: Gallbladder wall thickening, nonspecific. No evidence for gallstones. 2: Fatty infiltration of the liver. Renal Ultrasound 09/22/24 15:14 IMPRESSION: 1. Normal kidneys without hydronephrosis. Labs Labs: Laboratory Tests 09/25/24 05:27 09/25/24 05:27 Calcium 8.4 Phosphorus 3.9 Magnesium 2.5 H Total Bilirubin 1.0 AST 312 H ALT 398 H Alkaline Phosphatase 749 H Total Protein 6.0 L Albumin 3.1 L Microbiology 09/21/24 02:43 Sputum Sputum Culture - Final Methicillin Resis Staph Aureus 09/19/24 23:40 Blood Blood Culture - Final 09/19/24 23:39 Blood Blood Culture - Final
[2024-09-25] MEDS: MIDAZOLAM 100MG/NS 100ML(*CRX) 100 MG/100 ML BAG IV CONT (11:12)
[2024-09-25 12:04] LABS: Glucose Point of Care 124 mg/dl (65-105)
[2024-09-25] MEDS: FUROSEMIDE INJ 40 MG/4 ML VIAL (13:10)
[2024-09-25] MEDS: BUMETANIDE INJ 1 MG/4 ML VIAL 2 MG (14:11)
[2024-09-25] MEDS: ROCURONIUM BROMIDE 50 MG/5 ML VIAL (14:11)
--- NOTE | 2024-09-25 15:10 | WPDCN ---
Assessment and Plan Assessment and plan (1) Spontaneous pneumothorax: Code(s): J93.83 - Other pneumothorax Status: Acute Assessment and Plan: Spontaneous left pneumothorax likely secondary to barotrauma the patient is intubated on a PEEP of 12 due to respiratory failure from severe influenza a infection. There is no mediastinal shift to the right on chest x-ray but her O2 saturations have decreased to 85% with enlargement of this left pneumothorax. She will need emergent placement of left chest tube decompress the pneumothorax and re-expand the left lung. Now be done emergently in the intensive care unit bed immediately. Telephone consent was obtained from the patient's family. HPI Data of Consult Date/Time: 09/25/24 15:10 Requesting Physician: Annabelle Carrizales DO Primary Care Provider: HOSPITAL PLAN ADMINISTRATOR PHYSICIAN Consult Narrative Reason for consult: Large left spontaneous pneumothorax Narrative: Madeleine Mendoza is a 39 year old female admitted to the hospital for 2 days due to severe influenza A infection. She went to respiratory failure and was intubated. She has had peep of 12 and today started to have decompensation with desaturations. Stat chest x-ray was obtained showing approximate 50% pneumothorax of the right lung likely due to barotrauma. There was no left mediastinal shift. Had decreased O2 saturations to about 85% when I was emergently asked to come placed a left chest tube by the home appliances mechanic. Blood pressure was stable however. Telephone consent from patient's family was obtained replacement with a emergent left chest tube. Review of Systems Review of Systems: Unobtainable secondary to patient being intubated and sedated and paralyzed. [facility] Past Medical History Medical History Diabetic ketoacidosis Hypothyroidism Latent autoimmune diabetes in adults, managed as type 1 (2020) 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), managed as type 1 Raynauds disease Viramontes syndrome Low vitamin B12 level Menorrhagia Anemia, unspecified Surgical History Surgical History History of tubal ligation Family History Family History Grandparent ALS (amyotrophic lateral sclerosis) Sibling Diabetes mellitus Father Hypertension Cerebrovascular accident Acute myocardial infarction Social History Social History Smoking packs per day: 0.5 Smoking cigarettes per day: 10.0 Years smoked: 20 Smoking pack-years: 10.00 Smoking status: Smoker, status unknown Tobacco type: cigarettes Second hand tobacco smoke exposure: No Alcohol intake: unknown Substance use: unknown Substance use type: unknown Do You Feel Safe in your Home?: Yes Lack of Transportation: No Lack of Food: Never True Current Housing: I Have Housing Concerned About Future Housing: No Difficulty Paying Gas/Electric Bills: No Difficulty Paying for Meds: No Currently Unemployed: No Education: Decline to Answer Difficulty w/ Childcare or Family Care: No Additional living arrangements comments: . Has 2 sons. 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. Spiritual care concerns: No Meds Home Medications and Allergies Home Medications ?Medication ?Instructions ?Recorded ?Confirmed ?Type blood-glucose meter,continuous #1 ea 02/11/23 08/06/24 Rx (Dexcom G6 Mechanical Project Engineer) blood-glucose sensor (Dexcom G6 #9 02/11/23 08/06/24 Rx Sensor device) glucagon 1 mg/0.2 mL subcutaneous 1 mg (0.2 mL) subcut ONCE #0.4 mL 02/11/23 09/20/24 Rx auto-injector (Gvoke HypoPen 2-Pack) insulin pump cart,automated,BT #45 02/11/23 08/06/24 Rx (Omnipod 5 G6 Pods (Gen 5) subcutaneous cartridge) insulin pump cartridge,automated #1 ea 02/11/23 08/06/24 Rx dose,BT with controller subcutaneous (Omnipod 5 G6 Intro Kit (Gen 5) subcutaneous cartridge with controller) insulin lispro 100 unit/mL 90 unit (0.9 mL) subcut DAILY #10 03/31/24 09/20/24 Rx subcutaneous solution mL insulin lispro 100 unit/mL 90 unit (0.9 mL) subcut DAILY #10 04/25/24 09/20/24 Rx subcutaneous solution mL levothyroxine 100 mcg tablet 100 mcg PO QAM 08/06/24 09/20/24 History Allergies Allergy/AdvReac Type Severity Reaction Status Date / Time lactose AdvReac Diarrhea Verified 08/06/24 10:56 Vital Signs Vital Signs - 24 hr 09/24/24 16:00 09/24/24 16:00 09/24/24 16:00 Temperature 36.6 C Pulse Rate 88 89 Respiratory Rate 26 H 25 H Blood Pressure 107/75 Pulse Oximetry 92 Oxygen Delivery Fraction of Inspired Oxygen 70 09/24/24 16:00 09/24/24 16:00 09/24/24 16:00 Temperature Pulse Rate 89 89 Respiratory Rate 25 H Blood Pressure Pulse Oximetry 92 Oxygen Delivery Mechanical Ventilation Fraction of Inspired Oxygen 70 09/24/24 16:43 09/24/24 18:00 09/24/24 18:00 Temperature 36.7 C Pulse Rate 88 90 90 Respiratory Rate 25 H Blood Pressure 107/73 Pulse Oximetry 92 91 Oxygen Delivery Mechanical Ventilation Fraction of Inspired Oxygen 70 09/24/24 18:00 09/24/24 18:00 09/24/24 20:00 Temperature Pulse Rate 78 78 88 Respiratory Rate 25 H 25 H 25 H Blood Pressure Pulse Oximetry Oxygen Delivery Fraction of Inspired Oxygen 09/24/24 20:00 09/24/24 20:00 09/24/24 20:00 Temperature 36.8 C Pulse Rate 88 88 Respiratory Rate 25 H Blood Pressure 105/73 Pulse Oximetry 93 Oxygen Delivery Fraction of Inspired Oxygen 70 09/24/24 21:00 09/24/24 21:34 09/24/24 22:00 Temperature Pulse Rate 90 88 88 Respiratory Rate 26 H 25 H 30 H Blood Pressure Pulse Oximetry 94 Oxygen Delivery Mechanical Ventilation Fraction of Inspired Oxygen 70 09/24/24 22:00 09/24/24 22:00 09/24/24 22:00 Temperature 36.9 C Pulse Rate 88 88 88 Respiratory Rate 30 H 30 H Blood Pressure 105/73 Pulse Oximetry 93 Oxygen Delivery Fraction of Inspired Oxygen 09/24/24 22:40 09/25/24 00:00 09/25/24 00:00 Temperature 36.9 C Pulse Rate 91 88 Respiratory Rate 30 H Blood Pressure 107/68 Pulse Oximetry 97 95 Oxygen Delivery Mechanical Ventilation Fraction of Inspired Oxygen 70 70 09/25/24 00:00 09/25/24 00:00 09/25/24 01:00 Temperature Pulse Rate 92 92 91 Respiratory Rate 30 H 30 H 26 H Blood Pressure Pulse Oximetry 96 Oxygen Delivery Fraction of Inspired Oxygen 65 09/25/24 01:00 09/25/24 01:20 09/25/24 01:22 Temperature Pulse Rate 91 90 Respiratory Rate Blood Pressure Pulse Oximetry 93 Oxygen Delivery Mechanical Ventilation Fraction of Inspired Oxygen 65 65 09/25/24 02:00 09/25/24 02:00 09/25/24 02:00 Temperature Pulse Rate 92 92 92 Respiratory Rate 29 H 29 H Blood Pressure Pulse Oximetry Oxygen Delivery Fraction of Inspired Oxygen 09/25/24 02:00 09/25/24 04:00 09/25/24 04:00 Temperature 37.2 C Pulse Rate 92 94 Respiratory Rate 29 H Blood Pressure 116/78 Pulse Oximetry 95 95 Oxygen Delivery Fraction of Inspired Oxygen 70 09/25/24 04:00 09/25/24 04:00 09/25/24 04:00 Temperature 36.9 C Pulse Rate 95 96 Respiratory Rate 31 H 30 H Blood Pressure 114/71 Pulse Oximetry 91 Oxygen Delivery Fraction of Inspired Oxygen 70 09/25/24 04:00 09/25/24 04:51 09/25/24 06:00 Temperature Pulse Rate 96 96 93 Respiratory Rate 30 H Blood Pressure Pulse Oximetry 93 Oxygen Delivery Mechanical Ventilation Fraction of Inspired Oxygen 70 09/25/24 06:00 09/25/24 06:00 09/25/24 06:00 Temperature 36.6 C Pulse Rate 93 94 94 Respiratory Rate 29 H 29 H 29 H Blood Pressure 111/75 Pulse Oximetry 92 Oxygen Delivery Fraction of Inspired Oxygen 09/25/24 06:44 09/25/24 06:44 09/25/24 08:00 Temperature Pulse Rate 95 95 95 Respiratory Rate 28 H 28 H 28 H Blood Pressure Pulse Oximetry 92 Oxygen Delivery Mechanical Ventilation Fraction of Inspired Oxygen 70 09/25/24 08:00 09/25/24 08:00 09/25/24 08:00 Temperature 36.7 C Pulse Rate 95 93 Respiratory Rate 26 H Blood Pressure 114/76 Pulse Oximetry 92 Oxygen Delivery Fraction of Inspired Oxygen 70 09/25/24 08:00 09/25/24 08:00 09/25/24 08:28 Temperature Pulse Rate 75 95 93 Respiratory Rate 28 H 28 H Blood Pressure Pulse Oximetry 92 Oxygen Delivery Mechanical Ventilation Fraction of Inspired Oxygen 70 09/25/24 10:00 09/25/24 10:00 09/25/24 10:00 Temperature 36.6 C Pulse Rate 93 95 95 Respiratory Rate 27 H 28 H Blood Pressure 115/76 Pulse Oximetry 91 Oxygen Delivery Fraction of Inspired Oxygen 09/25/24 10:00 09/25/24 10:36 09/25/24 10:37 Temperature Pulse Rate 75 91 Respiratory Rate 28 H Blood Pressure Pulse Oximetry 92 92 Oxygen Delivery Mechanical Ventilation Mechanical Ventilation Fraction of Inspired Oxygen 70 70 09/25/24 11:12 09/25/24 12:00 09/25/24 12:00 Temperature Pulse Rate 92 97 95 Respiratory Rate 28 H 28 H 28 H Blood Pressure Pulse Oximetry Oxygen Delivery Fraction of Inspired Oxygen 09/25/24 12:00 09/25/24 12:00 09/25/24 12:00 Temperature 36.6 C Pulse Rate 95 95 95 Respiratory Rate 23 H 28 H Blood Pressure 136/86 Pulse Oximetry 90 90 Oxygen Delivery Mechanical Ventilation Fraction of Inspired Oxygen 80 09/25/24 12:00 09/25/24 14:00 Temperature 36.9 C Pulse Rate 113 H Respiratory Rate 25 H Blood Pressure 137/91 H Pulse Oximetry 89 L Oxygen Delivery Fraction of Inspired Oxygen 80 Exam Const: Other: Intubated, sedated, and chemically paralyzed HENMT: Other: Endotracheal tube in place. Resp: Other: Decreased breath sounds in left chest. Coarse breath sounds in the right. Cardio: Rhythm: regular rhythm GI: GI Palp: Yes Soft to palpation, No Firmness to palpation present (GI), No Tenderness to palpation present (GI), No Guarding due to palpation present (GI) and No Hernia present Neuro: Other: Exam not obtainable as patient is intubated, sedated, and chemically paralyzed. Extrem: Other: Edema of the bilateral lower extremities and mild edema of the thorax and abdominal wall. Psych: Other: Unobtainable. Results Labs 09/25/24 05:27 09/25/24 05:27 Labs: Short CBC 09/25/24 Range/Units 05:27 WBC 20.7 H (4.5-10.0) K/mm3 Hgb 9.1 L (12.0-15.0) g/dL Hct 27.8 L (37.0-47.0) % Plt Count 96 L (150-375) k/mm3 BMP 09/25/24 05:27 Sodium 143 Potassium 4.0 Chloride 105 Carbon Dioxide 22 BUN 129 H D Creatinine 3.67 H Glucose 126 H Calcium 8.4 Liver Function 09/25/24 Range/Units 05:27 Total Bilirubin 1.0 (0.2-1.3) mg/dL AST 312 H (14-36) U/L ALT 398 H (6-35) U/L Alkaline Phosphatase 749 H (38-126) U/L Albumin 3.1 L (3.5-5.1) g/dL Imaging My impression: Chest x-ray shows approximate 50% pneumothorax of the left lung. There is no right mediastinal shift. Patchy infiltrates of the bilateral lungs are noted.
--- NOTE | 2024-09-25 15:17 | W.PM.PROC2 ---
Procedure Note - Detailed Date of Procedure 09/25/24 Pre-op Diagnosis Spontaneous left pneumothorax secondary to barotrauma Respiratory failure secondary to bilateral pneumonia due to influenza infection. Post-op Diagnosis Same Procedure Performed Emergent placement of left thoracostomy tube. Surgeon Kennedy Boland MD Anesthesia General Indications Patient is a 39-year-old female who is admitted to the hospital with respiratory failure due to bilateral pneumonia from influenza. She was on a PEEP of 12 on the ventilator when she was noted to start having decrease in her saturations this afternoon. Chest x-ray was obtained showing a spontaneous left pneumothorax approximately 50% without right mediastinal shift. I have been asked to place an emergent left chest tube. Findings The patient placement of a 26 Citizen [place] left thoracostomy tube. Approximately 1 to 200 cc of quiles slightly cloudy pleural fluid was nonbloody immediately drained from the left chest upon entering the left pleural space. Postprocedure chest x-ray revealed near its full expansion of the left lung with the left chest tube in place. Description of Procedure After informed consent was obtained from the patient's family by telephone patient was placed supine on the intensive care unit bed with the left arm placed above her head to expose the left axilla and left chest wall. The area of the left chest wall, left breast, and left axilla was then prepped and draped usual sterile fashion. A transverse incision was then made the scalpel and the left mid axillary line in approximately the 5th intercostal space. I then spread the subcutaneous tissues through the incision with a clamp and then entered the left chest over the top of the rib in the 5th intercostal space in the midaxillary line. Upon spreading of the clamp there was a carrasco of air and then approximately 150 to 100 cc of slightly cloudy nonbloody pleural fluid drained from the left chest. A 28 [place] thoracostomy tube was then placed into the left chest at the 5th intercostal space attempt to place a posteriorly. Advanced to approximately 14cm from the tip at the skin level. The left chest tube was then secured in place with a 0 silk suture. Was then dressed with Vaseline gauze, 4x4 gauze, and silk tape. The left chest tube was then placed to 20cm of Pleur-evac suction. Postprocedure chest x-ray showed near re-expansion of the left lung with good positioning of the tip of the left chest tube in the upper pleural space. The patient's O2 saturations immediately improved to the mid 90s after decompression of the left pneumothorax. The patient tolerated the procedure well no complications. All sponges, needles, and instrument counts were correct at the end procedure. EBL was _2__cc. The patient was left in the intensive care unit bed hemodynamically stable with improvement of her O2 saturations to above 92% after placement of the left chest tube. Postprocedure chest x-ray results are as noted above. Implants [age] [place] left thoracostomy tube left 5th intercostal space in the midaxillary line. Estimated Blood Loss 2 Drains No (Left thoracostomy tube placed to 20cm Pleur-evac suction) Packing No Pathology None sent Complications No immediate complications Condition Stable Disposition ICU [facility] Billing Surgery - Charge Forward: Surgery Billing
[2024-09-25 18:17] LABS: Glucose Point of Care 126 mg/dl (65-105)
[2024-09-25 21:35] LABS: Glucose Point of Care 136 mg/dl (65-105)
[2024-09-25 22:05] LABS: Vancomycin Random 20.3 ug/mL (10-20)
[2024-09-26] VITALS (41 sets, daily range): BP systolic 90–133; BP diastolic 55–78; PULSE 9–121; RESP 26–31; TEMP 36.5–37.7; O2SAT 86–98
[2024-09-26 00:36] LABS: Glucose Point of Care 170 mg/dl (65-105)
[2024-09-26 04:59] LABS: Glucose Point of Care 181 mg/dl (65-105)
[2024-09-26 04:59] LABS: Hematocrit 28.3 % (37.0-47.0); Immature Platelet Fraction Pct 8.8 % (0.9-11.2); Mean Corpuscular HGB Conc 31.8 g/dl (32-36); Mean Corpuscular Hemoglobin 24.1 pg (26-34); Mean Corpuscular Volume 75.7 fl (80-100); Mean Platelet Volume 11.6 fl (7.4-10.4); Platelet Count Result 154 k/mm3 (150-375); Red Blood Count 3.74 M/mm3 (4.2-5.4); Red Cell Distribution Width 18.3 % (11.5-14.5); White Blood Count 27.5 K/mm3 (4.5-10.0)
[2024-09-26 05:28] LABS: Alanine Aminotransferase 277 U/L (6-35); Albumin Level 2.9 g/dL (3.5-5.1); Alkaline Phosphatase 731 U/L (38-126); Anion Gap 16 mmol/L (4-12); Aspartate Amino Transferase 203 U/L (14-36); Band Neutrophils Percent 12 % (0-6); Bilirubin,Total 0.9 mg/dL (0.2-1.3); Calcium 8.4 mg/dL (8.4-10.2); Carbon Dioxide 23 mmol/L (22-30); Chloride 104 mmol/L (98-107); Eosinophils Absolute Manual 0.27 K/mm3 (0.02-0.50); Eosinophils Percent Manual 1 % (0-4); Estimated CRCL calculation 13 ml/min; Estimated Glomerular Filt Rate 10; Glucose 173 mg/dL (65-110); Lymphocytes Absolute Manual 3.57 K/mm3 (1.1-4.5); Magnesium 2.5 mg/dL (1.6-2.3); Monocytes Absolute Manual 0.27 K/mm3 (0.1-0.90); Monocytes Percent Manual 1 % (3-9); Neutrophils Absolute Manual 23.37 K/mm3 (1.7-7.2); Neutrophils Percent Manual 73 % (46-73); Nucleated Red Blood Cells 2 %; Phosphorus 4.7 mg/dL (2.5-4.5); Potassium 4.3 mmol/L (3.4-5.0); Sodium 143 mmol/L (137-145); Total Cells Counted 100
[2024-09-26 05:29] LABS: Platelet Estimate Adequate (Adequate); Schistocytes None Seen
[2024-09-26 05:30] LABS: Large Platelets Present; Target Cells 1+
[2024-09-26 05:30] LABS: Alveolar/Arterial O2 Gradient 513.2 mmHg; Base Excess ABG -4.8 mEq/l (+/-2.0); Carboxyhemoglobin 0.6 % THb (0-2.0); Fractional Inspired Oxygen 90 %; HCO3 ABG 22.1 mEq/l (22.0-26.0); Methemoglobin ABG 0.3 %THb (0-1.5); Oxygen Saturation ABG 93.8 % (95.0-100.0); Oxyhemoglobin 92.9 % THb (90.0-100.0); PCO2 ABG 49.2 mmHg (35.0-45.0); PO2 ABG 78.1 mmHg (80.0-100.0); PO2 FiO2 Ratio Arterial Blood 0.87 %; Reduced Hemoglobin 6.2 %THb (0-5.0); Total Hemoglobin 9.9 g/dL (12.0-18.0)
[2024-09-26 05:31] LABS: Arterial Blood Gas PEEP 12 cmH2O; Arterial Blood Gas Tidal Volume 340 ml; Arterial Blood Gas Vent Mode CMV; Arterial Blood Gas Ventilator rate 26 /MIN; Device VENTILATOR; Modified Allen's Test Unable to perform; Site Drawn RIGHT RADIAL
[2024-09-26 05:31] LABS: Anisocytosis 1+
[2024-09-26 05:55] LABS: Blood Urea Nitrogen 152 mg/dL (7-17)
[2024-09-26] MEDS: CENTRAL LINE FLUSH 10 ML IV PUSH ×2 (06:05→21:03)
[2024-09-26] MEDS: SODIUM BICARBONATE TAB 650 MG TABLET FEED TUBE (06:05)
[2024-09-26] MEDS: LEVOTHYROXINE SODIUM 100 MCG TABLET FEED TUBE (06:06)
[2024-09-26] MEDS: FENTANYL 2,500MCG/NS250ML(*CRX 2,500 MCG/250 ML BAG 10 MCG IV CONT (06:14)
[2024-09-26 08:25] LABS: Hematocrit 28.1 % (37.0-47.0); Mean Corpuscular Hemoglobin 24.9 pg (26-34); Mean Corpuscular Volume 77.6 fl (80-100); Platelet Count Result 156 k/mm3 (150-375); Red Blood Count 3.62 M/mm3 (4.2-5.4); Red Cell Distribution Width 18.5 % (11.5-14.5); White Blood Count 27.1 K/mm3 (4.5-10.0)
[2024-09-26 08:56] LABS: Band Neutrophils Percent 13 % (0-6); Eosinophils Absolute Manual 0.27 K/mm3 (0.02-0.50); Eosinophils Percent Manual 1 % (0-4); Lymphocytes Absolute Manual 4.06 K/mm3 (1.1-4.5); Lymphocytes Percent Manual 15 % (18-44); Monocytes Absolute Manual 0.54 K/mm3 (0.1-0.90); Monocytes Percent Manual 2 % (3-9); Neutrophils Absolute Manual 22.22 K/mm3 (1.7-7.2); Neutrophils Percent Manual 69 % (46-73); Nucleated Red Blood Cells 2 %; Total Cells Counted 100
[2024-09-26 08:58] LABS: Hypochromasia 1+; Platelet Estimate Adequate (Adequate)
[2024-09-26 08:59] LABS: Anisocytosis 2+; Ovalocytes 1+; Schistocytes None Seen; Target Cells 1+; Tear Drop Cells 1+
[2024-09-26] MEDS: PANTOPRAZOLE SODIUM IV 40 MG VIAL IV PUSH (09:02)
[2024-09-26] MEDS: CEFEPIME 1 GM/NS 50 ML 1 GM/50 ML BAG IVPB ×2 (09:03→21:02)
[2024-09-26] MEDS: INSULIN GLARGINE (*BKC) 100 UNITS/ML 40 UNITS SUB-Q (09:03)
[2024-09-26] MEDS: MINERAL OIL/WHITE PETROLATUM OINTMENT 1 APPLIC EACH EYE ×2 (09:03→21:09)
[2024-09-26] MEDS: INSULIN ASPART (*BKC) 100 UNITS/ML SUB-Q (09:18)
[2024-09-26] MEDS: VANCOMYCIN 1,000 MG/NS 250 ML 1,000 MG/250 ML BAG 250 MG IVPB (09:19)
[2024-09-26 09:34] LABS: Glucose Point of Care 243 mg/dl (65-105)
--- NOTE | 2024-09-26 09:39 | WPDINTPN ---
Progress Note: A&P Assessment and Plan (1) Spontaneous pneumothorax: Code(s): J93.83 - Other pneumothorax Status: Acute Assessment and Plan: 09/25/2024: In the afternoon patient started to desaturate with O2 sats in the mid 80s, peep was increased, FiO2 was increased with no improvement, on auscultation left-sided breath sounds were decreased, stat chest x-ray showed spontaneous pneumothorax. Chest tube was inserted on 09/25, by surgery. Chest x-ray post chest tube insertion showed resolution of the pneumothorax with improvement in O2 sats. -surgery to manage chest tube -tidal volumes decreased to 340 mL -no air leak noted (2) Acute hypoxic respiratory failure: Code(s): J96.01 - Acute respiratory failure with hypoxia Status: Acute Assessment and Plan: Acute respiratory failure secondary to influenza A and pneumonia proceeding to ARDS 09/20: Intubated in the ER Patient now intubated and on mechanical ventilation ABG reviewed. Will increase rate to 28. -tidal volume 340 mL, peep 12, FiO2 90%. Continue to wean FiO2 to maintain O2 sats > 92% Continue sedation with Versed and fentanyl Bronchodilators 09/20: CTA chest Bilateral multifocal pneumonia, most extensively involving the lower lobes. No pulmonary embolus seen. (3) Uncontrolled diabetes mellitus: Status: Acute Assessment and Plan: SSI Continue Lantus Continue tube feeds (4) Septic shock: Code(s): A41.9 - Sepsis, unspecified organism; R65.21 - Severe sepsis with septic shock Status: Acute Assessment and Plan: Septic shock secondary to pneumonia Hold further IV fluids Off vasopressors off Stress dose steroids Continue Bicarb per tube for acidosis 09/19: Blood cultures are negative till now 09/21: Sputum cultures growing Staph aureus Currently on vancomycin, cefepime and doxycycline (5) PNA (pneumonia): Code(s): J18.9 - Pneumonia, unspecified organism Status: Acute Assessment and Plan: See above (6) Hypothyroidism: Code(s): E03.9 - Hypothyroidism, unspecified Status: Acute Assessment and Plan: Continue levothyroxine Normal TSH (7) Influenza: Code(s): J11.1 - Influenza due to unidentified influenza virus with other respiratory manifestations Status: Acute Assessment and Plan: Isolation Status post Tamiflu (8) SCAR (acute kidney injury): Code(s): N17.9 - Acute kidney failure, unspecified Status: Acute Assessment and Plan: Patient presented with elevated creatinine which has been gradually getting worse This is likely multifactorial secondary to sepsis, shock possible contrast induced injury. Patient is also on medications including vancomycin Normal CK Renal ultrasound showed normal kidney without hydronephrosis Patient at risk of needing RESPIRATORY CARE ASSISTANT Discussed with nephrology today regarding initiation of hemodialysis. Parking Control Officer feels that urine output has improved over last 24 hours. Recommends continuing Lasix for another 24 hours and re-evaluate need for dialysis 09/25: Worsening and creatinine and BUN despite diuretics, will discuss with Nephrology regarding dialysis 09/26: Discuss with Nephrology, patient is making good urine despite which her BUN and creatinine trending up, will discuss with family regarding dialysis, if okay with family will place dialysis catheter (9) Shock liver: Code(s): K72.00 - Acute and subacute hepatic failure without coma Status: Acute Assessment and Plan: Elevated AST and ALT likely secondary to shock liver and cholestasis secondary to sepsis and shock US right upper quadrant ultrasound shows gallbladder wall thickening nonspecific no evidence of gallstones. Fatty infiltration of the liver Negative hepatitis panel LFTs improving, bilirubin is normal Continue to monitor (10) Thrombocytopenia: Code(s): D69.6 - Thrombocytopenia, unspecified Status: Acute Assessment and Plan: Gradual in platelet count since admission likely multifactorial secondary to sepsis medications and hemodilution -platelets her low back to normal, will restart Lovenox Plan DVT prophylaxis -SCDs, will restart Lovenox as thrombocytopenia has resolved, Stress ulcer prophylaxis -Protonix Nutrition - tolerating tube feed Code Status - Full Code Total Critical Care Mono: 38 minutes Discussed with patient's mother yesterday who is the POA, updated with patient's condition and plan of care. I answered all questions. She is aware that patient is significantly sick and that she will require dialysis at some point. Due to a high probability of clinically significant, life threatening deterioration, the patient required my highest level of preparedness to intervene emergently and I personally spent this critical care time directly and personally managing the patient. This critical care time included obtaining a history; examining the patient; pulse oximetry; ordering and review of studies; arranging urgent treatment with development of a management plan; evaluation of patient's response to treatment; frequent reassessment; and discussions with other providers. It was exclusive of separately billable procedures and treating other patients and teaching time. Please see Assessment and Plan section and the rest of the note for further information on patient assessment and treatment This dictation may have been done utilizing a voice recognition system. Attempts have been made to correct errors. However, there may be uncorrected grammatical, spelling, and recognitions errors present. Subjective Date/time seen: 09/26/24 09:39 Interval history: Reason for consult: Acute respiratory failure, pneumonia, septic shock, acute kidney injury, pneumonia, hyperglycemia 09/25: Left pneumothorax status post chest tube by surgery 09/26/2024: Patient seen and examined the ICU, remains intubated on CMV mode of ventilation, peep of 12, 90% FiO2. Sedated with fentanyl and Versed infusion. Patient does not open her eyes or follow simple commands. Afebrile, adequate urine output in response to diuretics. Remains Off pressors. Hemodynamically stable. Tolerating tube feeds. Review of Systems Review of Systems: ROS unobtainable: Yes unobtainable due to endotracheal tube, unobtainable due to medical condition and unobtainable due to mental status Exam Narrative: General: Pt is sedated, intubated and on mechanical ventilation HEENT: Pupils equal reactive, sclera is clear, ETT in place Lungs/Chest: Trachea central Coarse BS B/L, bilateral rales, no wheezing. Adequate air entry bilaterally. Left-sided chest tube in place Cardiac: Sinus tachycardia Circulation: Pedal pulses are weak but palpable, feet are much warm. mottling of the skin on the knees bilaterally Abdomen: Decreased bowel sounds. Soft. NT. ND. Extremities: Positive edema bilateral lower extremities up to the thighs. Warm : Leach in place Neurologic: Unable to assess due to sedation. Does not respond to painful stimuli Objective Data Vital Signs Vital Signs: Vital Signs - 24 hr 09/25/24 10:00 09/25/24 10:00 09/25/24 10:00 Temperature 97.8 F Pulse Rate 93 95 95 Respiratory Rate 27 H 28 H Blood Pressure 115/76 Pulse Oximetry 91 Oxygen Delivery Fraction of Inspired Oxygen 09/25/24 10:00 09/25/24 10:36 09/25/24 10:37 Temperature Pulse Rate 75 91 Respiratory Rate 28 H Blood Pressure Pulse Oximetry 92 92 Oxygen Delivery Mechanical Ventilation Mechanical Ventilation Fraction of Inspired Oxygen 70 70 09/25/24 11:12 09/25/24 12:00 09/25/24 12:00 Temperature Pulse Rate 92 97 95 Respiratory Rate 28 H 28 H 28 H Blood Pressure Pulse Oximetry Oxygen Delivery Fraction of Inspired Oxygen 09/25/24 12:00 09/25/24 12:00 09/25/24 12:00 Temperature 97.8 F Pulse Rate 95 95 95 Respiratory Rate 23 H 28 H Blood Pressure 136/86 Pulse Oximetry 90 90 Oxygen Delivery Mechanical Ventilation Fraction of Inspired Oxygen 80 09/25/24 12:00 09/25/24 14:00 09/25/24 14:00 Temperature 98.4 F Pulse Rate 113 H 110 H Respiratory Rate 25 H 28 H Blood Pressure 137/91 H Pulse Oximetry 89 L Oxygen Delivery Fraction of Inspired Oxygen 80 09/25/24 14:00 09/25/24 14:00 09/25/24 14:20 Temperature Pulse Rate 110 H 110 H 122 H Respiratory Rate 28 H Blood Pressure Pulse Oximetry 88 L Oxygen Delivery Mechanical Ventilation Fraction of Inspired Oxygen 100 09/25/24 16:00 09/25/24 16:00 09/25/24 16:00 Temperature Pulse Rate 110 H 110 H Respiratory Rate 28 H Blood Pressure Pulse Oximetry 93 Oxygen Delivery Mechanical Ventilation Fraction of Inspired Oxygen 100 100 09/25/24 16:00 09/25/24 16:00 09/25/24 16:00 Temperature 98.5 F Pulse Rate 110 H 107 H 107 H Respiratory Rate 27 H 24 H 24 H Blood Pressure 122/76 Pulse Oximetry 92 Oxygen Delivery Fraction of Inspired Oxygen 09/25/24 17:00 09/25/24 18:00 09/25/24 18:00 Temperature 98.7 F Pulse Rate 108 H 109 H 108 H Respiratory Rate 24 H Blood Pressure 108/66 Pulse Oximetry 93 95 Oxygen Delivery Mechanical Ventilation Fraction of Inspired Oxygen 100 09/25/24 18:00 09/25/24 18:00 09/25/24 20:00 Temperature Pulse Rate 110 H 110 H 110 H Respiratory Rate 24 H 24 H 26 H Blood Pressure Pulse Oximetry Oxygen Delivery Fraction of Inspired Oxygen 09/25/24 20:00 09/25/24 20:00 09/25/24 20:00 Temperature Pulse Rate 110 H 109 H Respiratory Rate 26 H Blood Pressure Pulse Oximetry Oxygen Delivery Fraction of Inspired Oxygen 100 09/25/24 20:00 09/25/24 20:00 09/25/24 20:02 Temperature 99.2 F Pulse Rate 110 H 112 H 110 H Respiratory Rate 26 H 25 H Blood Pressure 105/64 Pulse Oximetry 95 94 95 Oxygen Delivery Mechanical Ventilation Mechanical Ventilation Fraction of Inspired Oxygen 100 100 09/25/24 22:00 09/25/24 22:00 09/25/24 22:00 Temperature 99.6 F Pulse Rate 110 H 110 H 110 H Respiratory Rate 25 H 25 H Blood Pressure 114/66 Pulse Oximetry 94 Oxygen Delivery Fraction of Inspired Oxygen 09/25/24 22:00 09/25/24 23:03 09/26/24 00:00 Temperature Pulse Rate 110 H 110 H 106 H Respiratory Rate 25 H 26 H Blood Pressure Pulse Oximetry 94 Oxygen Delivery Mechanical Ventilation Fraction of Inspired Oxygen 95 09/26/24 00:00 09/26/24 00:00 09/26/24 00:00 Temperature Pulse Rate 106 H 106 H Respiratory Rate 26 H 26 H Blood Pressure Pulse Oximetry 94 Oxygen Delivery Mechanical Ventilation Fraction of Inspired Oxygen 95 95 09/26/24 00:00 09/26/24 00:00 09/26/24 02:00 Temperature 99.2 F Pulse Rate 106 H 105 H 103 H Respiratory Rate 26 H Blood Pressure 110/64 Pulse Oximetry 94 Oxygen Delivery Fraction of Inspired Oxygen 09/26/24 02:00 09/26/24 02:00 09/26/24 02:00 Temperature 98.8 F Pulse Rate 96 103 H 103 H Respiratory Rate 27 H 27 H 27 H Blood Pressure 111/65 Pulse Oximetry 96 Oxygen Delivery Fraction of Inspired Oxygen 09/26/24 02:10 09/26/24 04:00 09/26/24 04:00 Temperature Pulse Rate 99 100 Respiratory Rate 26 H Blood Pressure Pulse Oximetry 96 Oxygen Delivery Mechanical Ventilation Fraction of Inspired Oxygen 90 90 09/26/24 04:00 09/26/24 04:00 09/26/24 04:00 Temperature 98.7 F Pulse Rate 100 95 100 Respiratory Rate 26 H 26 H 26 H Blood Pressure 111/64 Pulse Oximetry 95 95 Oxygen Delivery Mechanical Ventilation Fraction of Inspired Oxygen 90 09/26/24 04:00 09/26/24 05:05 09/26/24 06:00 Temperature Pulse Rate 100 102 H 101 H Respiratory Rate 26 H Blood Pressure Pulse Oximetry 95 Oxygen Delivery Mechanical Ventilation Fraction of Inspired Oxygen 90 09/26/24 06:00 09/26/24 06:14 09/26/24 06:14 Temperature Pulse Rate 101 H 103 H 103 H Respiratory Rate 26 H 27 H 27 H Blood Pressure Pulse Oximetry Oxygen Delivery Fraction of Inspired Oxygen 09/26/24 06:45 09/26/24 06:45 09/26/24 08:11 Temperature 98.8 F Pulse Rate 103 H 103 H 104 H Respiratory Rate 26 H Blood Pressure 115/62 Pulse Oximetry 94 95 Oxygen Delivery Mechanical Ventilation Fraction of Inspired Oxygen 90 Intake/Output Intake/Output: Intake & Output 09/23/24 09/24/24 09/25/24 09/26/24 23:59 23:59 23:59 23:59 Intake Total 2135.9 1816.4 1752.6 740.3 Output Total 500 1450 2160 1215 Balance 1635.9 366.4 -407.4 -474.7 Meds/Results Medications: Active Medications Generic Name Dose Route Start Last Admin Trade Name Freq PRN Reason Stop Dose Admin Acetaminophen 650 mg 09/20/24 19:03 09/21/24 11:59 Acetaminophen Elixir 325 Mg/10.15 Ml Udc PO 650 mg Q4H PRN Administration Mild Pain (1-3) or Fever Albuterol/Ipratropium 3 ml 09/22/24 08:26 Ipratropium 0.5 Mg/Albuterol Sulfate 2.5 Mg Ampul.Neb 3 Ml INHALATION Q6HRT PRN wheezing Dextrose 12.5 gm 09/20/24 03:19 Dextrose 50% 25 Gm/50 Ml Syringe IV PUSH PRN PRN Hypoglycemia Protocol Enoxaparin Sodium 40 mg 09/20/24 09:00 09/22/24 08:00 Enoxaparin 40 Mg/0.4 Ml Syringe SUB-Q 40 mg DAILY TOMY Administration Glucagon 1 mg 09/20/24 03:19 Glucagon For Inj 1 Mg Vial IM PRN PRN Hypoglycemia Protocol Glucose 15 gm 09/20/24 03:19 Glucose Oral Gel 15 Gm Of Glucse In 37.5 Gm Tube PO PRN PRN Hypoglycemia Protocol Dextrose 1,000 mls @ 100 mls/hr 09/20/24 03:19 Dextrose 5% 1,000 Ml IVPB PRN PRN Hypoglycemia Protocol Fentanyl Citrate 2,500 mcg in 250 mls @ 10 mls/hr 09/20/24 21:10 09/26/24 06:14 Fentanyl 2,500 Mcg/Ns 250 Ml IV CONT 100 mcg/hr .Q25H TOMY 10 mls/hr Administration Protocol 100 MCG/HR Midazolam HCl 100 mg in 100 mls @ 4 mls/hr 09/20/24 22:10 09/26/24 06:00 Versed 100 Mg/Ns 100 Ml IV CONT 4 mg/hr .Q25H OTMY 4 mls/hr Titration Protocol 4 MG/HR Cefepime HCl 1 gm in 50 mls @ 100 mls/hr 09/22/24 21:00 09/26/24 09:03 Maxipime 1 Gm/Ns 50 Ml IVPB 100 mls/hr Q12H TOMY Administration Vancomycin HCl 1,000 mg in 250 mls @ 250 mls/hr 09/26/24 09:00 09/26/24 09:19 Vancomycin 1,000 Mg/Ns 250 Ml IVPB 09/26/24 09:59 250 mls/hr ONCE ONE Administration Insulin Aspart 4 - 8 units 09/21/24 08:40 09/26/24 09:18 Insulin Aspart (*Bkc) 100 Units/Ml SUB-Q 4 units Q4H TOMY Administration Protocol Insulin Glargine 40 units 09/22/24 09:00 09/26/24 09:03 Insulin Glargine (*Bkc) 100 Units/Ml SUB-Q 40 units QAM TOMY Administration Levothyroxine Sodium 100 mcg 09/21/24 06:30 09/26/24 06:06 Levothyroxine Sodium 100 Mcg Tablet FEED TUBE 100 mcg DAILY@0630 TOMY Administration Multi-Ingred Cream/Lotion/Oil/Oint 1 applic 09/20/24 21:00 09/26/24 09:03 Mineral Oil/White Petrolatum Ointment EACH EYE 1 applic Q12HR TOMY Administration Pantoprazole Sodium 40 mg 09/20/24 09:00 09/26/24 09:02 Pantoprazole Sodium Iv 40 Mg Vial IV PUSH 40 mg QAM TOMY Administration Sodium Bicarbonate 650 mg 09/23/24 08:31 09/26/24 06:05 Sodium Bicarbonate Tab 650 Mg Tablet FEED TUBE 650 mg Q8HR TOMY Administration Sodium Chloride 10 ml 09/20/24 14:00 09/26/24 06:05 Central Line Flush IV PUSH 10 ml Q8HR TOMY Administration Sodium Chloride 20 ml 09/20/24 06:40 Central Line Flush IV PUSH PRN PRN after blood draws Vancomycin HCl 1 each 09/20/24 14:06 Vancomycin For Acute Kidney Injury IVPB PRN PRN Vancomycin Protocol Radiology Results: ITS Impressions Chest CTA 09/20/24 05:30 Impression: Bilateral multifocal pneumonia, most extensively involving the lower lobes. No pulmonary embolus seen. Abdomen X-Ray 09/20/24 05:35 Impression: NG tube in satisfactory position. Abdomen Ultrasound 09/22/24 15:02 IMPRESSION: 1: Gallbladder wall thickening, nonspecific. No evidence for gallstones. 2: Fatty infiltration of the liver. Renal Ultrasound 09/22/24 15:14 IMPRESSION: 1. Normal kidneys without hydronephrosis. Chest X-Ray 09/26/24 06:21 Impression: Support tubes, as above. No visible pneumothorax. Diffuse bilateral pulmonary consolidation is unchanged. Labs Labs: Laboratory Results - last 24 hr 09/25/24 09/25/24 09/25/24 10:29 11:46 18:15 WBC RBC Hgb Hct MCV MCH MCHC RDW Plt Count MPV Immature Gran % (Auto) Neut % (Auto) Lymph % (Auto) [place] % (Auto) Eos % (Auto) Baso % (Auto) Lymph # (Auto) [place] # (Auto) Eos # (Auto) Baso # (Auto) Abs Immat Gran (auto) Absolute Neuts (auto) Absolute Nucleated RBC Total Counted Neutrophils % (Manual) Band Neutrophils % Lymphocytes % (Manual) Monocytes % (Manual) Eosinophils % (Manual) Nucleated RBC % Abs Neuts (Manual) Abs Lymphs (Manual) Abs Monocytes (Manual) Absolute Eos (Manual) Nucleated RBCs Platelet Estimate Large Platelets % Immature Plt Fraction Hypochromasia Anisocytosis Target Cells Tear Drop Cells Ovalocytes Schistocytes PT 17.8 H D INR 1.4 APTT 31.0 Puncture Site ABG pH ABG pCO2 ABG pO2 ABG PO2/FiO2 Ratio ABG HCO3 ABG O2 Saturation ABG O2 Content ABG Base Excess A-a Gradient Oxyhemoglobin Carboxyhemoglobin Methemoglobin Reduced Hemoglobin Total Hemoglobin O2 Delivery Device O2 Liters/Min Minute Volume Vent Rate Vent Mode FiO2 Tidal Volume PEEP Peak Inspir Pressure Pressure Support Sodium Potassium Chloride Carbon Dioxide Anion Gap BUN Creatinine Estim Creat Clear Calc Estimated GFR Glucose POC Capillary Glucose 124 H 126 H Calcium Phosphorus Magnesium Total Bilirubin AST ALT Alkaline Phosphatase Total Protein Albumin Random Vancomycin 09/25/24 09/25/24 09/26/24 21:14 21:28 00:20 WBC RBC Hgb Hct MCV MCH MCHC RDW Plt Count MPV Immature Gran % (Auto) Neut % (Auto) Lymph % (Auto) [place] % (Auto) Eos % (Auto) Baso % (Auto) Lymph # (Auto) [place] # (Auto) Eos # (Auto) Baso # (Auto) Abs Immat Gran (auto) Absolute Neuts (auto) Absolute Nucleated RBC Total Counted Neutrophils % (Manual) Band Neutrophils % Lymphocytes % (Manual) Monocytes % (Manual) Eosinophils % (Manual) Nucleated RBC % Abs Neuts (Manual) Abs Lymphs (Manual) Abs Monocytes (Manual) Absolute Eos (Manual) Nucleated RBCs Platelet Estimate Large Platelets % Immature Plt Fraction Hypochromasia Anisocytosis Target Cells Tear Drop Cells Ovalocytes Schistocytes PT INR APTT Puncture Site ABG pH ABG pCO2 ABG pO2 ABG PO2/FiO2 Ratio ABG HCO3 ABG O2 Saturation ABG O2 Content ABG Base Excess A-a Gradient Oxyhemoglobin Carboxyhemoglobin Methemoglobin Reduced Hemoglobin Total Hemoglobin O2 Delivery Device O2 Liters/Min Minute Volume Vent Rate Vent Mode FiO2 Tidal Volume PEEP Peak Inspir Pressure Pressure Support Sodium Potassium Chloride Carbon Dioxide Anion Gap BUN Creatinine Estim Creat Clear Calc Estimated GFR Glucose POC Capillary Glucose 136 H 170 H Calcium Phosphorus Magnesium Total Bilirubin AST ALT Alkaline Phosphatase Total Protein Albumin Random Vancomycin 20.3 H 09/26/24 09/26/24 09/26/24 04:20 04:49 05:17 WBC 27.5 H RBC 3.74 L Hgb 9.0 L Hct 28.3 L MCV 75.7 L MCH 24.1 L MCHC 31.8 L RDW 18.3 H Plt Count 154 D MPV 11.6 H Immature Gran % (Auto) Not Reportable Neut % (Auto) Not Reportable Lymph % (Auto) Not Reportable [place] % (Auto) Not Reportable Eos % (Auto) Not Reportable Baso % (Auto) Not Reportable Lymph # (Auto) Not Reportable [place] # (Auto) Not Reportable Eos # (Auto) Not Reportable Baso # (Auto) Not Reportable Abs Immat Gran (auto) Not Reportable Absolute Neuts (auto) Not Reportable Absolute Nucleated RBC Not Reportable Total Counted 100 Neutrophils % (Manual) 73 Band Neutrophils % 12 H Lymphocytes % (Manual) 13.0 L Monocytes % (Manual) 1 L Eosinophils % (Manual) 1 Nucleated RBC % Not Reportable Abs Neuts (Manual) 23.37 H Abs Lymphs (Manual) 3.57 Abs Monocytes (Manual) 0.27 Absolute Eos (Manual) 0.27 Nucleated RBCs 2 Platelet Estimate Adequate Large Platelets Present % Immature Plt Fraction 8.8 Hypochromasia Anisocytosis 1+ Target Cells 1+ Tear Drop Cells Ovalocytes Schistocytes None seen PT INR APTT Puncture Site Right radial ABG pH 7.270 L* ABG pCO2 49.2 H ABG pO2 78.1 L ABG PO2/FiO2 Ratio 0.87 ABG HCO3 22.1 ABG O2 Saturation 93.8 L ABG O2 Content 13.0 L ABG Base Excess -4.8 A-a Gradient 513.2 Oxyhemoglobin 92.9 Carboxyhemoglobin 0.6 Methemoglobin 0.3 Reduced Hemoglobin 6.2 H Total Hemoglobin 9.9 L O2 Delivery Device Ventilator O2 Liters/Min Not Reportable Minute Volume Not Reportable Vent Rate 26 Vent Mode Cmv FiO2 90 Tidal Volume 340 PEEP 12 Peak Inspir Pressure Not Reportable Pressure Support Not Reportable Sodium 143 Potassium 4.3 Chloride 104 Carbon Dioxide 23 Anion Gap 16 H BUN 152 H D Creatinine 4.77 H Estim Creat Clear Calc 13 Estimated GFR 10 L Glucose 173 H POC Capillary Glucose 181 H Calcium 8.4 Phosphorus 4.7 H Magnesium 2.5 H Total Bilirubin 0.9 AST 203 H ALT 277 H Alkaline Phosphatase 731 H Total Protein 6.0 L Albumin 2.9 L Random Vancomycin 09/26/24 09/26/24 08:14 09:01 WBC 27.1 H RBC 3.62 L Hgb 9.0 L Hct 28.1 L MCV 77.6 L MCH 24.9 L MCHC 32.0 RDW 18.5 H Plt Count 156 MPV 13.0 H Immature Gran % (Auto) Not Reportable Neut % (Auto) Not Reportable Lymph % (Auto) Not Reportable [place] % (Auto) Not Reportable Eos % (Auto) Not Reportable Baso % (Auto) Not Reportable Lymph # (Auto) Not Reportable [place] # (Auto) Not Reportable Eos # (Auto) Not Reportable Baso # (Auto) Not Reportable Abs Immat Gran (auto) Not Reportable Absolute Neuts (auto) Not Reportable Absolute Nucleated RBC Not Reportable Total Counted 100 Neutrophils % (Manual) 69 Band Neutrophils % 13 H Lymphocytes % (Manual) 15 L Monocytes % (Manual) 2 L Eosinophils % (Manual) 1 Nucleated RBC % Not Reportable Abs Neuts (Manual) 22.22 H Abs Lymphs (Manual) 4.06 Abs Monocytes (Manual) 0.54 Absolute Eos (Manual) 0.27 Nucleated RBCs 2 Platelet Estimate Adequate Large Platelets % Immature Plt Fraction Hypochromasia 1+ Anisocytosis 2+ Target Cells 1+ Tear Drop Cells 1+ Ovalocytes 1+ Schistocytes None seen PT INR APTT Puncture Site ABG pH ABG pCO2 ABG pO2 ABG PO2/FiO2 Ratio ABG HCO3 ABG O2 Saturation ABG O2 Content ABG Base Excess A-a Gradient Oxyhemoglobin Carboxyhemoglobin Methemoglobin Reduced Hemoglobin Total Hemoglobin O2 Delivery Device O2 Liters/Min Minute Volume Vent Rate Vent Mode FiO2 Tidal Volume PEEP Peak Inspir Pressure Pressure Support Sodium Potassium Chloride Carbon Dioxide Anion Gap BUN Creatinine Estim Creat Clear Calc Estimated GFR Glucose POC Capillary Glucose 243 H Calcium Phosphorus Magnesium Total Bilirubin AST ALT Alkaline Phosphatase Total Protein Albumin Random Vancomycin Quality VTE Prophylaxis VTE prophylaxis: pharmacologic ordered
--- NOTE | 2024-09-26 11:50 | PCNFU ---
Nutrition Follow-Up Complete: Suboptimal Energy Intake as related to mechanical ventilation as evidenced by NPO. Goal: Meet estimated nutritional needs. Patient is meeting current goal. We will continue current goal. Pt current nutrition is Nepro at 40 ml/hr. Last recorded weight is 68.9 kg, up from 59.9 kg on admit. Plans for dialysis. Bowel Motility: +BM 09/25 Labs Reviewed:Mg 2.5, Glu 173, Cr 4.77, BUN 152, GFR 10, Alb 2.9 Meds Noted:Bumex, Fentanyl, Versed, Lantus, NovoLog, Protonix Skin: WNL Additional Notes:Patient remains on mechanical vent. Tube feedings are being tolerated of Nepro at 40 ml/hr. Tube feedings are providing 1584 kcal/72 gm protein/640 ml water. Flush 30 ml q 4 hours. Plans for Dialysis catheter today to be placed. Chest tube placed 09/25. Agree with diet orders. Will monitor weight, labs, skin, diet order, meds every Wednesday and Wednesday.
[2024-09-26 12:19] LABS: Glucose Point of Care 197 mg/dl (65-105)
[2024-09-26] MEDS: MIDAZOLAM 100MG/NS 100ML(*CRX) 100 MG/100 ML BAG IV CONT (13:30)
--- NOTE | 2024-09-26 14:19 | P.PCNBED_ITS ---
Procedures Hemodialysis Catheter Placement Left IJ: Discussed w/ patient and/or surrogate, the non-emergent placement of a hemodialysis catheter, including it's clinincal necessity/indication & associated potential risks & complications.: Yes The patient and/or surrogate understand(s) and acknowledge(s) the need to proceed with hemodialysis catheter insertion as an important element of the patient's clinical management.: Yes Consent: I discussed with patient's mother in detail regarding dialysis catheter, risk and benefits, she was agreeable for dialysis. HD Catheter Date: 09/26/24 HD Catheter Time: 14:11 Pre-procedural Time-Out was completed immediately before starting the p rocedure and confirmed: Patient Identification, Site, Procedure, Patient Position and the Availability of Requisite Equipment.: Yes Patient Position: supine Patient Placed on Monitor/Pulse Ox: Yes Provider Prep: mask, sterile gown, sterile gloves, Max. sterile barrier precautions, cap and hand hygiene Hemodialysis Catheter Prep: Chlorhexidine scrub and sterile full body sheet applied Local Anesthesia Used: lidocaine 1% Amount of anesthesia used (mL): 3 Ultrasound Used for Placement: Yes Hemodialysis Catheter Inserted: triple Japanese: 12 Length (cm): 20 Depth of Insertion (cm): 20 Post Procedure: sutured in place, good blood return, all ports aspirated, flushed, capped, transparent dressing, hemostatic product, antimicrobial product, securement product and aseptic technique maintained throughout procedure Post Procedure X-Ray: tip of catheter in good position and no pneumothorax seen Patient Tolerated Procedure: well Complications: none
--- NOTE | 2024-09-26 16:28 | WPDPN ---
Progress Note: A&P Assessment and Plan (1) Spontaneous pneumothorax: Code(s): J93.83 - Other pneumothorax Status: Acute Assessment and Plan: Status post left chest tube placement. Left lung is expanded completely with no evidence of residual pneumothorax on the left side. Recommend leaving the left chest tube in place until the patient is off the ventilator and off positive pressure ventilation. Daily chest x-rays. Subjective Date/time seen: 09/26/24 16:28 Interval history: Patient still in critical condition with stable in the intensive care unit. Non tunneled [place] hemodialysis catheter was placed today by central office frame wirer and hemodialysis is currently ongoing. Pulmonary status seems to be relatively stable but chest x-ray continued to show bilateral pulmonary infiltrates but no evidence of recurrent left pneumothorax with left chest tube in good position. Exam Resp: Other: Equal breath sounds bilateral. Bilateral breath sounds are coarse. Left chest tube in place with dressing dry. There was no air leak around the dressing. Does not appear to have an air leak in the water seal chamber. Output from the chest tube is serous. Objective Data Vital Signs Vital Signs: Vital Signs - 24 hr 09/25/24 17:00 09/25/24 18:00 09/25/24 18:00 Temperature 37.1 C Pulse Rate 108 H 109 H 108 H Respiratory Rate 24 H Blood Pressure 108/66 Pulse Oximetry 93 95 Oxygen Delivery Mechanical Ventilation Fraction of Inspired Oxygen 100 09/25/24 18:00 09/25/24 18:00 09/25/24 20:00 Temperature Pulse Rate 110 H 110 H 110 H Respiratory Rate 24 H 24 H 26 H Blood Pressure Pulse Oximetry Oxygen Delivery Fraction of Inspired Oxygen 09/25/24 20:00 09/25/24 20:00 09/25/24 20:00 Temperature Pulse Rate 110 H 109 H Respiratory Rate 26 H Blood Pressure Pulse Oximetry Oxygen Delivery Fraction of Inspired Oxygen 100 09/25/24 20:00 09/25/24 20:00 09/25/24 20:02 Temperature 37.3 C Pulse Rate 110 H 112 H 110 H Respiratory Rate 26 H 25 H Blood Pressure 105/64 Pulse Oximetry 95 94 95 Oxygen Delivery Mechanical Ventilation Mechanical Ventilation Fraction of Inspired Oxygen 100 100 09/25/24 22:00 09/25/24 22:00 09/25/24 22:00 Temperature 37.6 C Pulse Rate 110 H 110 H 110 H Respiratory Rate 25 H 25 H Blood Pressure 114/66 Pulse Oximetry 94 Oxygen Delivery Fraction of Inspired Oxygen 09/25/24 22:00 09/25/24 23:03 09/26/24 00:00 Temperature Pulse Rate 110 H 110 H 106 H Respiratory Rate 25 H 26 H Blood Pressure Pulse Oximetry 94 Oxygen Delivery Mechanical Ventilation Fraction of Inspired Oxygen 95 09/26/24 00:00 09/26/24 00:00 09/26/24 00:00 Temperature Pulse Rate 106 H 106 H Respiratory Rate 26 H 26 H Blood Pressure Pulse Oximetry 94 Oxygen Delivery Mechanical Ventilation Fraction of Inspired Oxygen 95 95 09/26/24 00:00 09/26/24 00:00 09/26/24 02:00 Temperature 37.3 C Pulse Rate 106 H 105 H 103 H Respiratory Rate 26 H Blood Pressure 110/64 Pulse Oximetry 94 Oxygen Delivery Fraction of Inspired Oxygen 09/26/24 02:00 09/26/24 02:00 09/26/24 02:00 Temperature 37.1 C Pulse Rate 96 103 H 103 H Respiratory Rate 27 H 27 H 27 H Blood Pressure 111/65 Pulse Oximetry 96 Oxygen Delivery Fraction of Inspired Oxygen 09/26/24 02:10 09/26/24 04:00 09/26/24 04:00 Temperature Pulse Rate 99 100 Respiratory Rate 26 H Blood Pressure Pulse Oximetry 96 Oxygen Delivery Mechanical Ventilation Fraction of Inspired Oxygen 90 90 09/26/24 04:00 09/26/24 04:00 09/26/24 04:00 Temperature 37.1 C Pulse Rate 100 95 100 Respiratory Rate 26 H 26 H 26 H Blood Pressure 111/64 Pulse Oximetry 95 95 Oxygen Delivery Mechanical Ventilation Fraction of Inspired Oxygen 90 09/26/24 04:00 09/26/24 05:05 09/26/24 06:00 Temperature Pulse Rate 100 102 H 101 H Respiratory Rate 26 H Blood Pressure Pulse Oximetry 95 Oxygen Delivery Mechanical Ventilation Fraction of Inspired Oxygen 90 09/26/24 06:00 09/26/24 06:14 09/26/24 06:14 Temperature Pulse Rate 101 H 103 H 103 H Respiratory Rate 26 H 27 H 27 H Blood Pressure Pulse Oximetry Oxygen Delivery Fraction of Inspired Oxygen 09/26/24 06:45 09/26/24 06:45 09/26/24 08:00 Temperature 37.1 C Pulse Rate 103 H 103 H 102 H Respiratory Rate 26 H 26 H Blood Pressure 115/62 Pulse Oximetry 94 Oxygen Delivery Fraction of Inspired Oxygen 09/26/24 08:00 09/26/24 08:00 09/26/24 08:00 Temperature Pulse Rate 102 H 102 H Respiratory Rate 26 H Blood Pressure Pulse Oximetry 95 Oxygen Delivery Mechanical Ventilation Fraction of Inspired Oxygen 90 09/26/24 08:00 09/26/24 08:00 09/26/24 08:11 Temperature 37.1 C Pulse Rate 102 H 104 H Respiratory Rate 26 H Blood Pressure 111/66 Pulse Oximetry 95 95 Oxygen Delivery Mechanical Ventilation Fraction of Inspired Oxygen 90 90 09/26/24 10:00 09/26/24 10:00 09/26/24 10:00 Temperature Pulse Rate 110 H 110 H 110 H Respiratory Rate 28 H 28 H Blood Pressure Pulse Oximetry Oxygen Delivery Fraction of Inspired Oxygen 09/26/24 10:00 09/26/24 10:15 09/26/24 10:35 Temperature 37.2 C Pulse Rate 110 H 107 H 106 H Respiratory Rate 28 H 28 H Blood Pressure 121/74 Pulse Oximetry 92 94 Oxygen Delivery Mechanical Ventilation Fraction of Inspired Oxygen 80 09/26/24 12:00 09/26/24 12:00 09/26/24 12:00 Temperature Pulse Rate 9 L 108 H Respiratory Rate 28 H Blood Pressure Pulse Oximetry 94 Oxygen Delivery Mechanical Ventilation Fraction of Inspired Oxygen 80 09/26/24 12:00 09/26/24 12:00 09/26/24 12:00 Temperature 37.3 C Pulse Rate 109 H 109 H Respiratory Rate 28 H 28 H Blood Pressure 116/67 Pulse Oximetry 94 Oxygen Delivery Fraction of Inspired Oxygen 80 09/26/24 13:30 09/26/24 13:30 09/26/24 14:00 Temperature Pulse Rate 109 H 109 H 114 H Respiratory Rate 28 H 28 H Blood Pressure Pulse Oximetry Oxygen Delivery Fraction of Inspired Oxygen 09/26/24 14:00 09/26/24 14:00 09/26/24 14:00 Temperature 37.5 C Pulse Rate 114 H 114 H 114 H Respiratory Rate 28 H 28 H 28 H Blood Pressure 133/70 Pulse Oximetry 94 Oxygen Delivery Fraction of Inspired Oxygen 09/26/24 14:17 09/26/24 15:00 09/26/24 15:31 Temperature 37.6 C Pulse Rate 114 H 114 H 113 H Respiratory Rate 28 H Blood Pressure 127/78 130/75 Pulse Oximetry 97 96 Oxygen Delivery Mechanical Ventilation Fraction of Inspired Oxygen 100 09/26/24 15:45 09/26/24 16:00 09/26/24 16:15 Temperature Pulse Rate 111 H 118 H 118 H Respiratory Rate Blood Pressure 129/70 120/75 109/75 Pulse Oximetry Oxygen Delivery Fraction of Inspired Oxygen Intake/Output Intake/Output: Intake & Output 09/23/24 09/24/24 09/25/24 09/26/24 23:59 23:59 23:59 23:59 Intake Total 2135.9 1816.4 1752.6 835.4 Output Total 500 1450 2160 1215 Balance 1635.9 366.4 -407.4 -379.6 Meds/Results Medications: Active Medications Generic Name Dose Route Start Last Admin Trade Name Freq PRN Reason Stop Dose Admin Acetaminophen 650 mg 09/20/24 19:03 09/21/24 11:59 Acetaminophen Elixir 325 Mg/10.15 Ml Udc PO 650 mg Q4H PRN Administration Mild Pain (1-3) or Fever Albuterol/Ipratropium 3 ml 09/22/24 08:26 Ipratropium 0.5 Mg/Albuterol Sulfate 2.5 Mg Ampul.Neb 3 Ml INHALATION Q6HRT PRN wheezing Dextrose 12.5 gm 09/20/24 03:19 Dextrose 50% 25 Gm/50 Ml Syringe IV PUSH PRN PRN Hypoglycemia Protocol Enoxaparin Sodium 40 mg 09/20/24 09:00 09/22/24 08:00 Enoxaparin 40 Mg/0.4 Ml Syringe SUB-Q 40 mg DAILY TOMY Administration Epoetin Jaspreet-epbx 10,000 units 09/26/24 20:08 Epoetin Jaspreet-Epbx 10,000 Units/Ml Vial IV PUSH 09/26/24 20:09 ONCE ONE Glucagon 1 mg 09/20/24 03:19 Glucagon For Inj 1 Mg Vial IM PRN PRN Hypoglycemia Protocol Glucose 15 gm 09/20/24 03:19 Glucose Oral Gel 15 Gm Of Glucse In 37.5 Gm Tube PO PRN PRN Hypoglycemia Protocol Dextrose 1,000 mls @ 100 mls/hr 09/20/24 03:19 Dextrose 5% 1,000 Ml IVPB PRN PRN Hypoglycemia Protocol Fentanyl Citrate 2,500 mcg in 250 mls @ 7.5 mls/hr 09/20/24 21:10 09/26/24 14:00 Fentanyl 2,500 Mcg/Ns 250 Ml IV CONT 75 mcg/hr .[id number] TOMY 7.5 mls/hr Titration Protocol 75 MCG/HR Midazolam HCl 100 mg in 100 mls @ 4 mls/hr 09/20/24 22:10 09/26/24 14:00 Versed 100 Mg/Ns 100 Ml IV CONT 4 mg/hr .Q25H TOMY 4 mls/hr Titration Protocol 4 MG/HR Cefepime HCl 1 gm in 50 mls @ 100 mls/hr 09/26/24 18:00 Maxipime 1 Gm/Ns 50 Ml IVPB Q24H TOMY Albumin Human 50 mls @ 999 mls/hr 09/26/24 12:07 Albutein IVPB 10/26/24 12:06 Q10M PRN HYPOTENSION Insulin Aspart 4 - 8 units 09/21/24 08:40 09/26/24 14:44 Insulin Aspart (*Bkc) 100 Units/Ml SUB-Q Not Given Q4H [facility] Protocol Insulin Glargine 40 units 09/22/24 09:00 09/26/24 09:03 Insulin Glargine (*Bkc) 100 Units/Ml SUB-Q 40 units QAM TOMY Administration Levothyroxine Sodium 100 mcg 09/21/24 06:30 09/26/24 06:06 Levothyroxine Sodium 100 Mcg Tablet FEED TUBE 100 mcg DAILY@0630 TOMY Administration Multi-Ingred Cream/Lotion/Oil/Oint 1 applic 09/20/24 21:00 09/26/24 09:03 Mineral Oil/White Petrolatum Ointment EACH EYE 1 applic Q12HR TOMY Administration Pantoprazole Sodium 40 mg 09/20/24 09:00 09/26/24 09:02 Pantoprazole Sodium Iv 40 Mg Vial IV PUSH 40 mg QAM TOMY Administration Sodium Chloride 10 ml 09/20/24 14:00 09/26/24 15:14 Central Line Flush IV PUSH Not Given Q8HR TOMY Sodium Chloride 20 ml 09/20/24 06:40 Central Line Flush IV PUSH PRN PRN after blood draws Vancomycin HCl 1 each 09/20/24 14:06 Vancomycin For Acute Kidney Injury IVPB PRN PRN Vancomycin Protocol Radiology Results: ITS Impressions Chest CTA 09/20/24 05:30 Impression: Bilateral multifocal pneumonia, most extensively involving the lower lobes. No pulmonary embolus seen. Abdomen X-Ray 09/20/24 05:35 Impression: NG tube in satisfactory position. Abdomen Ultrasound 09/22/24 15:02 IMPRESSION: 1: Gallbladder wall thickening, nonspecific. No evidence for gallstones. 2: Fatty infiltration of the liver. Renal Ultrasound 09/22/24 15:14 IMPRESSION: 1. Normal kidneys without hydronephrosis. Chest X-Ray 09/26/24 14:26 IMPRESSION: 1. New central line tip at superior cavoatrial junction. 2. Stable diffuse lung disease, consistent with pneumonia. 3. No pneumothorax. Left-sided chest tube in expected position. Labs Labs: Laboratory Results - last 24 hr 09/25/24 09/25/24 09/25/24 18:15 21:14 21:28 WBC RBC Hgb Hct MCV MCH MCHC RDW Plt Count MPV Immature Gran % (Auto) Neut % (Auto) Lymph % (Auto) [place] % (Auto) Eos % (Auto) Baso % (Auto) Lymph # (Auto) [place] # (Auto) Eos # (Auto) Baso # (Auto) Abs Immat Gran (auto) Absolute Neuts (auto) Absolute Nucleated RBC Total Counted Neutrophils % (Manual) Band Neutrophils % Lymphocytes % (Manual) Monocytes % (Manual) Eosinophils % (Manual) Nucleated RBC % Abs Neuts (Manual) Abs Lymphs (Manual) Abs Monocytes (Manual) Absolute Eos (Manual) Nucleated RBCs Platelet Estimate Large Platelets % Immature Plt Fraction Hypochromasia Anisocytosis Target Cells Tear Drop Cells Ovalocytes Schistocytes Puncture Site ABG pH ABG pCO2 ABG pO2 ABG PO2/FiO2 Ratio ABG HCO3 ABG O2 Saturation ABG O2 Content ABG Base Excess A-a Gradient Oxyhemoglobin Carboxyhemoglobin Methemoglobin Reduced Hemoglobin Total Hemoglobin O2 Delivery Device O2 Liters/Min Minute Volume Vent Rate Vent Mode FiO2 Tidal Volume PEEP Peak Inspir Pressure Pressure Support Sodium Potassium Chloride Carbon Dioxide Anion Gap BUN Creatinine Estim Creat Clear Calc Estimated GFR Glucose POC Capillary Glucose 126 H 136 H Calcium Phosphorus Magnesium Total Bilirubin AST ALT Alkaline Phosphatase Total Protein Albumin Random Vancomycin 20.3 H 09/26/24 09/26/24 09/26/24 00:20 04:20 04:49 WBC 27.5 H RBC 3.74 L Hgb 9.0 L Hct 28.3 L MCV 75.7 L MCH 24.1 L MCHC 31.8 L RDW 18.3 H Plt Count 154 D MPV 11.6 H Immature Gran % (Auto) Not Reportable Neut % (Auto) Not Reportable Lymph % (Auto) Not Reportable [place] % (Auto) Not Reportable Eos % (Auto) Not Reportable Baso % (Auto) Not Reportable Lymph # (Auto) Not Reportable [place] # (Auto) Not Reportable Eos # (Auto) Not Reportable Baso # (Auto) Not Reportable Abs Immat Gran (auto) Not Reportable Absolute Neuts (auto) Not Reportable Absolute Nucleated RBC Not Reportable Total Counted 100 Neutrophils % (Manual) 73 Band Neutrophils % 12 H Lymphocytes % (Manual) 13.0 L Monocytes % (Manual) 1 L Eosinophils % (Manual) 1 Nucleated RBC % Not Reportable Abs Neuts (Manual) 23.37 H Abs Lymphs (Manual) 3.57 Abs Monocytes (Manual) 0.27 Absolute Eos (Manual) 0.27 Nucleated RBCs 2 Platelet Estimate Adequate Large Platelets Present % Immature Plt Fraction 8.8 Hypochromasia Anisocytosis 1+ Target Cells 1+ Tear Drop Cells Ovalocytes Schistocytes None seen Puncture Site ABG pH ABG pCO2 ABG pO2 ABG PO2/FiO2 Ratio ABG HCO3 ABG O2 Saturation ABG O2 Content ABG Base Excess A-a Gradient Oxyhemoglobin Carboxyhemoglobin Methemoglobin Reduced Hemoglobin Total Hemoglobin O2 Delivery Device O2 Liters/Min Minute Volume Vent Rate Vent Mode FiO2 Tidal Volume PEEP Peak Inspir Pressure Pressure Support Sodium 143 Potassium 4.3 Chloride 104 Carbon Dioxide 23 Anion Gap 16 H BUN 152 H D Creatinine 4.77 H Estim Creat Clear Calc 13 Estimated GFR 10 L Glucose 173 H POC Capillary Glucose 170 H 181 H Calcium 8.4 Phosphorus 4.7 H Magnesium 2.5 H Total Bilirubin 0.9 AST 203 H ALT 277 H Alkaline Phosphatase 731 H Total Protein 6.0 L Albumin 2.9 L Random Vancomycin 09/26/24 09/26/24 09/26/24 05:17 08:14 09:01 WBC 27.1 H RBC 3.62 L Hgb 9.0 L Hct 28.1 L MCV 77.6 L MCH 24.9 L MCHC 32.0 RDW 18.5 H Plt Count 156 MPV 13.0 H Immature Gran % (Auto) Not Reportable Neut % (Auto) Not Reportable Lymph % (Auto) Not Reportable [place] % (Auto) Not Reportable Eos % (Auto) Not Reportable Baso % (Auto) Not Reportable Lymph # (Auto) Not Reportable [place] # (Auto) Not Reportable Eos # (Auto) Not Reportable Baso # (Auto) Not Reportable Abs Immat Gran (auto) Not Reportable Absolute Neuts (auto) Not Reportable Absolute Nucleated RBC Not Reportable Total Counted 100 Neutrophils % (Manual) 69 Band Neutrophils % 13 H Lymphocytes % (Manual) 15 L Monocytes % (Manual) 2 L Eosinophils % (Manual) 1 Nucleated RBC % Not Reportable Abs Neuts (Manual) 22.22 H Abs Lymphs (Manual) 4.06 Abs Monocytes (Manual) 0.54 Absolute Eos (Manual) 0.27 Nucleated RBCs 2 Platelet Estimate Adequate Large Platelets % Immature Plt Fraction Hypochromasia 1+ Anisocytosis 2+ Target Cells 1+ Tear Drop Cells 1+ Ovalocytes 1+ Schistocytes None seen Puncture Site Right radial ABG pH 7.270 L* ABG pCO2 49.2 H ABG pO2 78.1 L ABG PO2/FiO2 Ratio 0.87 ABG HCO3 22.1 ABG O2 Saturation 93.8 L ABG O2 Content 13.0 L ABG Base Excess -4.8 A-a Gradient 513.2 Oxyhemoglobin 92.9 Carboxyhemoglobin 0.6 Methemoglobin 0.3 Reduced Hemoglobin 6.2 H Total Hemoglobin 9.9 L O2 Delivery Device Ventilator O2 Liters/Min Not Reportable Minute Volume Not Reportable Vent Rate 26 Vent Mode Cmv FiO2 90 Tidal Volume 340 PEEP 12 Peak Inspir Pressure Not Reportable Pressure Support Not Reportable Sodium Potassium Chloride Carbon Dioxide Anion Gap BUN Creatinine Estim Creat Clear Calc Estimated GFR Glucose POC Capillary Glucose 243 H Calcium Phosphorus Magnesium Total Bilirubin AST ALT Alkaline Phosphatase Total Protein Albumin Random Vancomycin 09/26/24 12:15 WBC RBC Hgb Hct MCV MCH MCHC RDW Plt Count MPV Immature Gran % (Auto) Neut % (Auto) Lymph % (Auto) [place] % (Auto) Eos % (Auto) Baso % (Auto) Lymph # (Auto) [place] # (Auto) Eos # (Auto) Baso # (Auto) Abs Immat Gran (auto) Absolute Neuts (auto) Absolute Nucleated RBC Total Counted Neutrophils % (Manual) Band Neutrophils % Lymphocytes % (Manual) Monocytes % (Manual) Eosinophils % (Manual) Nucleated RBC % Abs Neuts (Manual) Abs Lymphs (Manual) Abs Monocytes (Manual) Absolute Eos (Manual) Nucleated RBCs Platelet Estimate Large Platelets % Immature Plt Fraction Hypochromasia Anisocytosis Target Cells Tear Drop Cells Ovalocytes Schistocytes Puncture Site ABG pH ABG pCO2 ABG pO2 ABG PO2/FiO2 Ratio ABG HCO3 ABG O2 Saturation ABG O2 Content ABG Base Excess A-a Gradient Oxyhemoglobin Carboxyhemoglobin Methemoglobin Reduced Hemoglobin Total Hemoglobin O2 Delivery Device O2 Liters/Min Minute Volume Vent Rate Vent Mode FiO2 Tidal Volume PEEP Peak Inspir Pressure Pressure Support Sodium Potassium Chloride Carbon Dioxide Anion Gap BUN Creatinine Estim Creat Clear Calc Estimated GFR Glucose POC Capillary Glucose 197 H Calcium Phosphorus Magnesium Total Bilirubin AST ALT Alkaline Phosphatase Total Protein Albumin Random Vancomycin
--- NOTE | 2024-09-26 17:20 | P.PNNP_ITS ---
Progress Note: A&P Assessment and Plan (1) SCAR (acute kidney injury): Code(s): N17.9 - Acute kidney failure, unspecified Status: Acute Assessment and Plan: * as noted by labs starting on 09/22 * normal creatinine at baseline * multifactorial etiology: * prerenal factors * insensible losses (from high fevers on admission) * hemodynamic instability/shock * sepsis/infection (pneumonia + influenza) * contrast (CTA chest on 09/20) * other(?) * evaluation noted: * urine electrolytes prerenal x 2 * CPK okay * renal ultrasound normal * proteinuria noted (possibly due to diabetes) * urine eosinophils negative * UA with protein and glucose * better urine output noted with diuretic trial on 09/23 and 09/24 * good urine noted without diuretics on 09/25 * however, BUN & creatinine continue to climb/worsen... * s/p temporary HD catheter placement today * HD today and likely again tomorrow * follow trend of repeat labs and UOP for potential renal recovery (2) Septic shock: Code(s): A41.9 - Sepsis, unspecified organism; R65.21 - Severe sepsis with septic shock Status: Acute Assessment and Plan: * presumably due to pneumonia and possibly influenza * s/p fluid resuscitation and IV albumin * weaned off vasopressor therapy * culture data noted * blood culture negative to date * sputum culture with Staph aureus * off stress dose steroids * on antibiotics * follow trend of hemodynamics (3) Acute hypoxic respiratory failure: Code(s): J96.01 - Acute respiratory failure with hypoxia Status: Acute Assessment and Plan: * due to pneumonia and influenza * imaging noted: * chest CTA (on 09/20): bilateral multifocal pneumonia, most extensively involving the lower lobes; no pulmonary embolus seen * remains on mechanical ventilation * intubated in the ER for airway protection and ongoing hypoxic respiratory failure unresponsive to BiPAP therapy * weaning as able (4) Spontaneous pneumothorax: Code(s): J93.83 - Other pneumothorax Status: Acute Assessment and Plan: * as noted by STAT chest x-ray on 09/25/24 afternoon * s/p chest tube placement by Surgery * repeat CXR with resolution of pneumothorax * continue supportive therapy (5) Influenza: Code(s): J11.1 - Influenza due to unidentified influenza virus with other respiratory manifestations Status: Acute Assessment and Plan: * as noted by testing in the ER * resiratory isolation * on Tamiflu (6) PNA (pneumonia): Code(s): J18.9 - Pneumonia, unspecified organism Status: Acute Assessment and Plan: * see #2 (7) Anemia, unspecified: Code(s): D64.9 - Anemia, unspecified Status: Acute Assessment and Plan: * related to SCAR and acute illness * PRBC transfusion per protocol * EMANUEL with dialysis * follow trend of H/H (8) Metabolic acidosis: Code(s): E87.20 - Acidosis, unspecified Status: Acute Assessment and Plan: * due to SCAR and possibly mild lactic acidosis (on admission) * s/p IVF resuscitation * dialysis should continue to improve * follow CO2 levels (9) Shock liver: Code(s): K72.00 - Acute and subacute hepatic failure without coma Status: Acute Assessment and Plan: * slow improvement noted * as noted by elevated AST and ALT * alkaline phosphatase and bilirubin normal * slow improvement noted * RUQ ultrasound noted: * gallbladder wall thickening * no evidence of gallstones * fatty infiltration of the liver * negative hepatitis panel * follow trend (10) Uncontrolled diabetes mellitus: Status: Acute Assessment and Plan: * follow accu-cheks * glycemic control per intensivisit Discussed case with Dr. Ramirez. Will continue to follow. L Subjective Date/time seen: 09/26/24 17:20 Interval history: Follow-up for acute kidney injury/acute renal failure. Patient seen earlier today and currently while getting hemodialysis (seen on HD at 5:10PM); s/p chest tube placement yesterday due to left pneumothorax; remains intubated/sedated and on mechanical ventilation; reasonable urine output noted but BUN & creatinine continues to worsen; remains hemodynamically stable without the need for vasopressors. Exam 2 Narrative: General: WD/WN female in NAD Heart: normal S1 and S2; no rub Lungs: coarse breath sounds Abdomen: soft, nontender, nondistended, positive bowel sounds Extremities: no cyanosis or clubbing; no edema Skin: no nodules Objective Data Vital Signs Vital Signs: Vital Signs Temp Pulse Resp BP Pulse Ox O2 Del Method FiO2 09/26/24 17:00 118 H 98/71 L 09/26/24 16:45 118 H 102/69 09/26/24 16:30 118 H 108/69 09/26/24 16:15 118 H 109/75 09/26/24 16:00 80 09/26/24 16:00 117 H 09/26/24 16:00 87 L Mechanical Ventilation 80 09/26/24 16:00 118 H 120/75 09/26/24 15:45 111 H 129/70 09/26/24 15:31 113 H 130/75 09/26/24 15:00 99.6 F 114 H 28 H 127/78 96 09/26/24 14:17 114 H 97 Mechanical Ventilation 100 09/26/24 14:00 114 H 28 H 09/26/24 14:00 114 H 28 H 09/26/24 14:00 99.5 F 114 H 28 H 133/70 94 09/26/24 14:00 114 H 09/26/24 13:30 109 H 28 H 09/26/24 13:30 109 H 28 H 09/26/24 12:00 109 H 28 H 09/26/24 12:00 99.2 F 109 H 28 H 116/67 94 09/26/24 12:00 80 09/26/24 12:00 108 H 09/26/24 12:00 9 L 28 H 09/26/24 12:00 94 Mechanical Ventilation 80 09/26/24 10:35 106 H 94 Mechanical Ventilation 80 09/26/24 10:15 107 H 28 H 09/26/24 10:00 99 F 110 H 28 H 121/74 92 09/26/24 10:00 110 H 09/26/24 10:00 110 H 28 H 09/26/24 10:00 110 H 28 H 09/26/24 08:11 104 H 95 Mechanical Ventilation 90 09/26/24 08:00 98.8 F 102 H 26 H 111/66 95 09/26/24 08:00 90 09/26/24 08:00 102 H 09/26/24 08:00 95 Mechanical Ventilation 90 09/26/24 08:00 102 H 26 H 09/26/24 08:00 102 H 26 H 09/26/24 06:45 98.8 F 103 H 26 H 115/62 94 09/26/24 06:45 103 H 09/26/24 06:14 103 H 27 H 09/26/24 06:14 103 H 27 H 09/26/24 06:00 101 H 26 H 09/26/24 06:00 101 H 26 H 09/26/24 05:05 102 H 95 Mechanical Ventilation 90 09/26/24 04:00 100 09/26/24 04:00 100 26 H 95 Mechanical Ventilation 90 09/26/24 04:00 98.7 F 95 26 H 111/64 95 09/26/24 04:00 100 26 H 09/26/24 04:00 100 26 H 09/26/24 04:00 90 09/26/24 02:10 99 96 Mechanical Ventilation 90 09/26/24 02:00 103 H 27 H 09/26/24 02:00 103 H 27 H 09/26/24 02:00 98.8 F 96 27 H 111/65 96 09/26/24 02:00 103 H 09/26/24 00:00 105 H 09/26/24 00:00 99.2 F 106 H 26 H 110/64 94 09/26/24 00:00 95 09/26/24 00:00 106 H 26 H 94 Mechanical Ventilation 95 09/26/24 00:00 106 H 26 H 09/26/24 00:00 106 H 26 H 09/25/24 23:03 110 H 94 Mechanical Ventilation 95 09/25/24 22:00 110 H 25 H 09/25/24 22:00 110 H 25 H 09/25/24 22:00 99.6 F 110 H 25 H 114/66 94 09/25/24 22:00 110 H 09/25/24 20:02 110 H 95 Mechanical Ventilation 100 09/25/24 20:00 112 H 25 H 94 Mechanical Ventilation 100 09/25/24 20:00 99.2 F 110 H 26 H 105/64 95 09/25/24 20:00 100 09/25/24 20:00 109 H 09/25/24 20:00 110 H 26 H 09/25/24 20:00 110 H 26 H 09/25/24 18:00 110 H 24 H 09/25/24 18:00 110 H 24 H 09/25/24 18:00 98.7 F 108 H 24 H 108/66 95 09/25/24 18:00 109 H Intake/Output Intake/Output: Intake & Output 09/23/24 09/24/24 09/25/24 09/26/24 23:59 23:59 23:59 23:59 Intake Total 2135.9 1816.4 1752.6 1135.4 Output Total 500 1450 2160 1215 Balance 1635.9 366.4 -407.4 -79.6 Meds/Results Medications: Active Medications Generic Name Dose Route Start Last Admin Trade Name Freq PRN Reason Stop Dose Admin Acetaminophen 650 mg 09/20/24 19:03 09/21/24 11:59 Acetaminophen Elixir 325 Mg/10.15 Ml Udc PO 650 mg Q4H PRN Administration Mild Pain (1-3) or Fever Albuterol/Ipratropium 3 ml 09/22/24 08:26 Ipratropium 0.5 Mg/Albuterol Sulfate 2.5 Mg Ampul.Neb 3 Ml INHALATION Q6HRT PRN wheezing Dextrose 12.5 gm 09/20/24 03:19 Dextrose 50% 25 Gm/50 Ml Syringe IV PUSH PRN PRN Hypoglycemia Protocol Enoxaparin Sodium 40 mg 09/20/24 09:00 09/22/24 08:00 Enoxaparin 40 Mg/0.4 Ml Syringe SUB-Q 40 mg DAILY TOMY Administration Epoetin Jaspreet-epbx 10,000 units 09/26/24 20:08 Epoetin Jaspreet-Epbx 10,000 Units/Ml Vial IV PUSH 09/26/24 20:09 ONCE ONE Glucagon 1 mg 09/20/24 03:19 Glucagon For Inj 1 Mg Vial IM PRN PRN Hypoglycemia Protocol Glucose 15 gm 09/20/24 03:19 Glucose Oral Gel 15 Gm Of Glucse In 37.5 Gm Tube PO PRN PRN Hypoglycemia Protocol Dextrose 1,000 mls @ 100 mls/hr 09/20/24 03:19 Dextrose 5% 1,000 Ml IVPB PRN PRN Hypoglycemia Protocol Fentanyl Citrate 2,500 mcg in 250 mls @ 7.5 mls/hr 09/20/24 21:10 09/26/24 14:00 Fentanyl 2,500 Mcg/Ns 250 Ml IV CONT 75 mcg/hr .[id number] TOMY 7.5 mls/hr Titration Protocol 75 MCG/HR Midazolam HCl 100 mg in 100 mls @ 4 mls/hr 09/20/24 22:10 09/26/24 14:00 Versed 100 Mg/Ns 100 Ml IV CONT 4 mg/hr .Q25H TOMY 4 mls/hr Titration Protocol 4 MG/HR Albumin Human 50 mls @ 999 mls/hr 09/26/24 12:07 Albutein IVPB 10/26/24 12:06 Q10M PRN HYPOTENSION Cefepime HCl 1 gm in 50 mls @ 100 mls/hr 09/26/24 21:00 Maxipime 1 Gm/Ns 50 Ml IVPB Q24H TOMY Insulin Aspart 4 - 8 units 09/21/24 08:40 09/26/24 14:44 Insulin Aspart (*Bkc) 100 Units/Ml SUB-Q Not Given Q4H [facility] Protocol Insulin Glargine 40 units 09/22/24 09:00 09/26/24 09:03 Insulin Glargine (*Bkc) 100 Units/Ml SUB-Q 40 units QAM TOMY Administration Levothyroxine Sodium 100 mcg 09/21/24 06:30 09/26/24 06:06 Levothyroxine Sodium 100 Mcg Tablet FEED TUBE 100 mcg DAILY@0630 TOMY Administration Multi-Ingred Cream/Lotion/Oil/Oint 1 applic 09/20/24 21:00 09/26/24 09:03 Mineral Oil/White Petrolatum Ointment EACH EYE 1 applic Q12HR TOMY Administration Pantoprazole Sodium 40 mg 09/20/24 09:00 09/26/24 09:02 Pantoprazole Sodium Iv 40 Mg Vial IV PUSH 40 mg QAM TOMY Administration Sodium Chloride 10 ml 09/20/24 14:00 09/26/24 15:14 Central Line Flush IV PUSH Not Given Q8HR TOMY Sodium Chloride 20 ml 09/20/24 06:40 Central Line Flush IV PUSH PRN PRN after blood draws Vancomycin HCl 1 each 09/20/24 14:06 Vancomycin For Acute Kidney Injury IVPB PRN PRN Vancomycin Protocol Radiology Results: ITS Impressions Chest CTA 09/20/24 05:30 Impression: Bilateral multifocal pneumonia, most extensively involving the lower lobes. No pulmonary embolus seen. Abdomen X-Ray 09/20/24 05:35 Impression: NG tube in satisfactory position. Abdomen Ultrasound 09/22/24 15:02 IMPRESSION: 1: Gallbladder wall thickening, nonspecific. No evidence for gallstones. 2: Fatty infiltration of the liver. Renal Ultrasound 09/22/24 15:14 IMPRESSION: 1. Normal kidneys without hydronephrosis. Chest X-Ray 09/26/24 14:26 IMPRESSION: 1. New central line tip at superior cavoatrial junction. 2. Stable diffuse lung disease, consistent with pneumonia. 3. No pneumothorax. Left-sided chest tube in expected position. Labs Labs: Laboratory Tests 09/26/24 08:14 09/26/24 04:49 WBC 27.5 H Hgb 9.0 L Hct 28.3 L Plt Count 154 Calcium 8.4 Phosphorus 4.7 H Magnesium 2.5 H Total Bilirubin 0.9 AST 203 H ALT 277 H Alkaline Phosphatase 731 H Total Protein 6.0 L Albumin 2.9 L
[2024-09-26 17:25] LABS: Glucose Point of Care 150 mg/dl (65-105)
[2024-09-26 21:11] LABS: Glucose Point of Care 183 mg/dl (65-105)
[2024-09-27] VITALS (56 sets, daily range): BP systolic 83–139; BP diastolic 51–83; PULSE 100–126; RESP 25–283; TEMP 36.8–38; O2SAT 88–100
[2024-09-27] MEDS: INSULIN ASPART (*BKC) 100 UNITS/ML SUB-Q ×3 (01:00→20:59)
[2024-09-27 01:19] LABS: Glucose Point of Care 205 mg/dl (65-105)
[2024-09-27 04:59] LABS: Base Excess ABG -2.2 mEq/l (+/-2.0); Carboxyhemoglobin 1.2 % THb (0-2.0); Fractional Inspired Oxygen 80 %; HCO3 ABG 24.4 mEq/l (22.0-26.0); Methemoglobin ABG 0.3 %THb (0-1.5); Oxygen Content ABG 11.9 %vol (16.0-22.0); Oxygen Saturation ABG 92.4 % (95.0-100.0); Oxyhemoglobin 91.1 % THb (90.0-100.0); PCO2 ABG 51.1 mmHg (35.0-45.0); PO2 ABG 70.8 mmHg (80.0-100.0); PO2 FiO2 Ratio Arterial Blood 0.89 %; Reduced Hemoglobin 7.4 %THb (0-5.0); Total Hemoglobin 9.2 g/dL (12.0-18.0)
[2024-09-27 05:03] LABS: pH ABG 7.297 (7.350-7.450)
[2024-09-27 05:06] LABS: Arterial Blood Gas PEEP 12 cmH2O; Arterial Blood Gas Tidal Volume 340 ml; Arterial Blood Gas Vent Mode CMV; Arterial Blood Gas Ventilator rate 28 /MIN; Device VENTILATOR; Modified Allen's Test Pass; Site Drawn LEFT RADIAL
[2024-09-27] MEDS: CENTRAL LINE FLUSH 10 ML IV PUSH ×3 (05:46→21:00)
[2024-09-27] MEDS: LEVOTHYROXINE SODIUM 100 MCG TABLET FEED TUBE (05:47)
[2024-09-27 06:00] LABS: Glucose Point of Care 201 mg/dl (65-105)
[2024-09-27 06:00] LABS: Hematocrit 26.6 % (37.0-47.0); Hemoglobin 8.6 g/dL (12.0-15.0); Mean Corpuscular HGB Conc 32.3 g/dl (32-36); Mean Corpuscular Hemoglobin 24.6 pg (26-34); Mean Platelet Volume 11.3 fl (7.4-10.4); Platelet Count Result 163 k/mm3 (150-375); Red Cell Distribution Width 18.8 % (11.5-14.5); White Blood Count 34.4 K/mm3 (4.5-10.0)
[2024-09-27 06:37] LABS: Alanine Aminotransferase 186 U/L (6-35); Albumin Level 2.7 g/dL (3.5-5.1); Alkaline Phosphatase 608 U/L (38-126); Anion Gap 14 mmol/L (4-12); Aspartate Amino Transferase 82 U/L (14-36); Bilirubin,Total 0.9 mg/dL (0.2-1.3); Blood Urea Nitrogen 105 mg/dL (7-17); Calcium 8.9 mg/dL (8.4-10.2); Carbon Dioxide 23 mmol/L (22-30); Chloride 103 mmol/L (98-107); Estimated CRCL calculation 19 ml/min; Estimated Glomerular Filt Rate 15; Glucose 201 mg/dL (65-110); Magnesium 2.4 mg/dL (1.6-2.3); Phosphorus 3.9 mg/dL (2.5-4.5); Potassium 4.7 mmol/L (3.4-5.0); Sodium 140 mmol/L (137-145)
[2024-09-27 07:59] LABS: Band Neutrophils Percent 13 % (0-6); Lymphocytes Absolute Manual 1.03 K/mm3 (1.1-4.5); Monocytes Absolute Manual 1.03 K/mm3 (0.1-0.90); Monocytes Percent Manual 3 % (3-9); Neutrophils Absolute Manual 32.33 K/mm3 (1.7-7.2); Neutrophils Percent Manual 81 % (46-73); Total Cells Counted 100
[2024-09-27 08:02] LABS: Hypochromasia 1+; Platelet Estimate Adequate (Adequate); Schistocytes None Seen
[2024-09-27 08:03] LABS: Anisocytosis 1+; Burr Cells 1+; Target Cells 1+
[2024-09-27] MEDS: ROCURONIUM BROMIDE 50 MG/5 ML VIAL IV PUSH (08:25)
--- NOTE | 2024-09-27 08:33 | P.PNINT_ITS ---
Progress Note: A&P Assessment and Plan (1) Spontaneous pneumothorax: Code(s): J93.83 - Other pneumothorax Status: Acute Assessment and Plan: 09/25/2024: In the afternoon patient started to desaturate with O2 sats in the mid 80s, peep was increased, FiO2 was increased with no improvement, on auscultation left-sided breath sounds were decreased, stat chest x-ray showed spontaneous pneumothorax. Chest tube was inserted on 09/25, by surgery. Chest x-ray post chest tube insertion showed resolution of the pneumothorax with improvement in O2 sats. -surgery to manage chest tube -tidal volumes of 340 mL -no air leak noted (2) Acute hypoxic respiratory failure: Code(s): J96.01 - Acute respiratory failure with hypoxia Status: Acute Assessment and Plan: Acute respiratory failure secondary to influenza A and pneumonia proceeding to ARDS 09/20: Intubated in the ER Patient now intubated and on mechanical ventilation ABG reviewed. will allow permissive hypercapnia. -tidal volume 340 mL, peep 12, FiO2 80%. Continue to wean FiO2 to maintain O2 sats > 92% Continue sedation with Versed and fentanyl Bronchodilators 09/27: increased FiO2 requirements, on high Ventilatory support. Will prone pt today for 16 hrs -thick secretions, will add Pulmozyme and Mucomyst nebs 09/20: CTA chest Bilateral multifocal pneumonia, most extensively involving the lower lobes. No pulmonary embolus seen. (3) Uncontrolled diabetes mellitus: Status: Acute Assessment and Plan: SSI Continue Lantus Continue tube feeds (4) Septic shock: Code(s): A41.9 - Sepsis, unspecified organism; R65.21 - Severe sepsis with septic shock Status: Acute Assessment and Plan: Septic shock secondary to pneumonia Hold further IV fluids Off vasopressors off Stress dose steroids 09/19: Blood cultures are negative till now 09/21: Sputum cultures growing Staph aureus Currently on vancomycin, cefepime a -completed 5 day course of doxycycline (5) PNA (pneumonia): Code(s): J18.9 - Pneumonia, unspecified organism Status: Acute Assessment and Plan: See above (6) Hypothyroidism: Code(s): E03.9 - Hypothyroidism, unspecified Status: Acute Assessment and Plan: Continue levothyroxine Normal TSH (7) Influenza: Code(s): J11.1 - Influenza due to unidentified influenza virus with other respiratory manifestations Status: Acute Assessment and Plan: Isolation Status post Tamiflu (8) SCAR (acute kidney injury): Code(s): N17.9 - Acute kidney failure, unspecified Status: Acute Assessment and Plan: Patient presented with elevated creatinine which has been gradually getting worse This is likely multifactorial secondary to sepsis, shock possible contrast induced injury. Patient is also on medications including vancomycin Normal CK Renal ultrasound showed normal kidney without hydronephrosis Patient at risk of needing HV[employer] Discussed with nephrology today regarding initiation of hemodialysis. Cost Control Supervisor feels that urine output has improved over last 24 hours. R ecommends continuing Lasix for another 24 hours and re-evaluate need for dialysis 09/25: Worsening and creatinine and BUN despite diuretics, will discuss with Nephrology regarding dialysis 09/26: Discussed with Nephrology, patient is making good urine despite but her BUN and creatinine trending up, discussed with family regarding dialysis, family okay with dialysis. HD catheter placed in left IJ. Started HD Dialysis per nephrology (9) Shock liver: Code(s): K72.00 - Acute and subacute hepatic failure without coma Status: Acute Assessment and Plan: Elevated AST and ALT likely secondary to shock liver and cholestasis secondary to sepsis and shock US right upper quadrant ultrasound shows gallbladder wall thickening nonspecific no evidence of gallstones. Fatty infiltration of the liver Negative hepatitis panel LFTs improving, bilirubin is normal Continue to monitor (10) Thrombocytopenia: Code(s): D69.6 - Thrombocytopenia, unspecified Status: Acute Assessment and Plan: Gradual in platelet count since admission likely multifactorial secondary to sepsis medications and hemodilution -platelets her low back to normal, will restart Lovenox Plan DVT prophylaxis -SCDs, restarted Lovenox as thrombocytopenia has resolved, Stress ulcer prophylaxis -Protonix Nutrition - tolerating tube feeds Code Status - Full Code Total Critical Care Mono: 34 minutes Discussed with patient's mother yesterday who is the POA, updated with patient's condition and plan of care. I answered all questions. She is aware that patient is significantly sick and that she will require dialysis at some point. Due to a high probability of clinically significant, life threatening deterioration, the patient required my highest level of preparedness to intervene emergently and I personally spent this critical care time directly and personally managing the patient. This critical care time included obtaining a history; examining the patient; pulse oximetry; ordering and review of studies; arranging urgent treatment with development of a management plan; evaluation of patient's response to treatment; frequent reassessment; and discussions with other providers. It was exclusive of separately billable procedures and treating other patients and teaching time. Please see Assessment and Plan section and the rest of the note for further information on patient assessment and treatment This dictation may have been done utilizing a voice recognition system. Attempts have been made to correct errors. However, there may be uncorrected grammatical, spelling, and recognitions errors present. Subjective Date/time seen: 09/27/24 08:33 Interval history: Reason for consult: Acute respiratory failure, pneumonia, septic shock, acute kidney injury, pneumonia, hyperglycemia 09/25: Left pneumothorax status post chest tube by surgery 09/26: Left IJ dialysis catheter placed and started on hemodialysis 09/27/2024: Patient seen and examined the ICU, remains intubated on CMV mode of ventilation, peep of 12, 80% FiO2. Sedated with fentanyl and Versed infusion. Patient does not open her eyes or follow simple commands. Remains Off pressors. Hemodynamically stable. Tolerating tube feeds. HD done yesterday with 1100 ml in fluid removal. Review of Systems Review of Systems: ROS unobtainable: Yes unobtainable due to endotracheal tube, unobtainable due to medical condition and unobtainable due to mental status Exam Narrative: General: Pt is sedated, intubated and on mechanical ventilation HEENT: Pupils equal reactive, sclera is clear, ETT in place Lungs/Chest: Trachea central Coarse BS B/L, bilateral rales, no wheezing. Adequate air entry bilaterally. Left-sided chest tube in place Cardiac: Sinus tachycardia Circulation: Pedal pulses are weak but palpable, feet are much warm. mottling of the skin on the knees bilaterally Abdomen: Decreased bowel sounds. Soft. NT. ND. Extremities: Positive edema bilateral lower extremities up to the thighs. Warm : Leach in place Neurologic: Unable to assess due to sedation. Does not respond to painful stimuli Objective Data Vital Signs Vital Signs: Vital Signs - 24 hr 09/26/24 10:00 09/26/24 10:09/26/24 10:00 Temperature Pulse Rate 110 H 110 H 110 H Respiratory Rate 28 H 28 H Blood Pressure Pulse Oximetry Oxygen Delivery Oxygen Flow Rate Fraction of Inspired Oxygen 09/26/24 10:00 09/26/24 10:15 09/26/24 10:35 Temperature 99 F Pulse Rate 110 H 107 H 106 H Respiratory Rate 28 H 28 H Blood Pressure 121/74 Pulse Oximetry 92 94 Oxygen Delivery Mechanical Ventilation Oxygen Flow Rate Fraction of Inspired Oxygen 80 09/26/24 12:00 09/26/24 12:00 09/26/24 12:00 Temperature Pulse Rate 9 L 108 H Respiratory Rate 28 H Blood Pressure Pulse Oximetry 94 Oxygen Delivery Mechanical Ventilation Oxygen Flow Rate Fraction of Inspired Oxygen 80 09/26/24 12:00 09/26/24 12:00 09/26/24 12:00 Temperature 99.2 F Pulse Rate 109 H 109 H Respiratory Rate 28 H 28 H Blood Pressure 116/67 Pulse Oximetry 94 Oxygen Delivery Oxygen Flow Rate Fraction of Inspired Oxygen 80 09/26/24 13:30 09/26/24 13:30 09/26/24 14:00 Temperature Pulse Rate 109 H 109 H 114 H Respiratory Rate 28 H 28 H Blood Pressure Pulse Oximetry Oxygen Delivery Oxygen Flow Rate Fraction of Inspired Oxygen 09/26/24 14:00 09/26/24 14:00 09/26/24 14:00 Temperature 99.5 F Pulse Rate 114 H 114 H 114 H Respiratory Rate 28 H 28 H 28 H Blood Pressure 133/70 Pulse Oximetry 94 Oxygen Delivery Oxygen Flow Rate Fraction of Inspired Oxygen 09/26/24 14:17 09/26/24 15:00 09/26/24 15:00 Temperature 99.6 F Pulse Rate 114 H 114 H Respiratory Rate 28 H Blood Pressure 127/78 Pulse Oximetry 97 96 Oxygen Delivery Mechanical Ventilation Oxygen Flow Rate Fraction of Inspired Oxygen 100 100 09/26/24 15:31 09/26/24 15:45 09/26/24 16:00 Temperature Pulse Rate 113 H 111 H 118 H Respiratory Rate Blood Pressure 130/75 129/70 120/75 Pulse Oximetry Oxygen Delivery Oxygen Flow Rate Fraction of Inspired Oxygen 09/26/24 16:00 09/26/24 16:00 09/26/24 16:00 Temperature Pulse Rate 117 H Respiratory Rate Blood Pressure Pulse Oximetry 87 L Oxygen Delivery Mechanical Ventilation Oxygen Flow Rate Fraction of Inspired Oxygen 80 80 09/26/24 16:00 09/26/24 16:00 09/26/24 16:00 Temperature 99.8 F H Pulse Rate 121 H 121 H 121 H Respiratory Rate 28 H 28 H 28 H Blood Pressure 127/75 Pulse Oximetry 86 L Oxygen Delivery Oxygen Flow Rate Fraction of Inspired Oxygen 09/26/24 16:15 09/26/24 16:30 09/26/24 16:45 Temperature Pulse Rate 118 H 118 H 118 H Respiratory Rate Blood Pressure 109/75 108/69 102/69 Pulse Oximetry Oxygen Delivery Oxygen Flow Rate Fraction of Inspired Oxygen 09/26/24 17:00 09/26/24 17:15 09/26/24 17:23 Temperature Pulse Rate 118 H 116 H 117 H Respiratory Rate Blood Pressure 98/71 L 95/71 L Pulse Oximetry 93 Oxygen Delivery Mechanical Ventilation Oxygen Flow Rate Fraction of Inspired Oxygen 100 09/26/24 17:30 09/26/24 17:45 09/26/24 18:00 Temperature Pulse Rate 114 H 113 H 113 H Respiratory Rate 26 H Blood Pressure 96/71 L 96/69 L Pulse Oximetry Oxygen Delivery Oxygen Flow Rate Fraction of Inspired Oxygen 09/26/24 18:00 09/26/24 18:00 09/26/24 18:00 Temperature 99.8 F H Pulse Rate 113 H 113 H 113 H Respiratory Rate 26 H 26 H Blood Pressure 95/68 L Pulse Oximetry 94 Oxygen Delivery Oxygen Flow Rate Fraction of Inspired Oxygen 09/26/24 18:00 09/26/24 18:15 09/26/24 18:30 Temperature Pulse Rate 113 H 110 H 109 H Respiratory Rate Blood Pressure 95/68 L 97/67 L 92/72 L Pulse Oximetry Oxygen Delivery Oxygen Flow Rate Fraction of Inspired Oxygen 09/26/24 18:35 09/26/24 18:55 09/26/24 20:00 Temperature 99.7 F H Pulse Rate 107 H 110 H Respiratory Rate 26 H Blood Pressure 101/70 99/73 L Pulse Oximetry 97 96 Oxygen Delivery Mechanical Ventilation Oxygen Flow Rate Fraction of Inspired Oxygen 90 09/26/24 20:00 09/26/24 20:00 09/26/24 20:00 Temperature 99.0 F Pulse Rate 107 H 104 H Respiratory Rate 28 H Blood Pressure 101/62 Pulse Oximetry 96 Oxygen Delivery Oxygen Flow Rate Fraction of Inspired Oxygen 90 09/26/24 20:00 09/26/24 20:00 09/26/24 20:16 Temperature Pulse Rate 104 H 104 H 107 H Respiratory Rate 28 H 28 H Blood Pressure Pulse Oximetry 98 Oxygen Delivery Mechanical Ventilation Oxygen Flow Rate Fraction of Inspired Oxygen 100 09/26/24 20:17 09/26/24 22:00 09/26/24 22:00 Temperature 99.2 F Pulse Rate 102 H 102 H Respiratory Rate 30 H Blood Pressure 90/55 L Pulse Oximetry 95 96 Oxygen Delivery Mechanical Ventilation Oxygen Flow Rate Fraction of Inspired Oxygen 90 09/26/24 22:00 09/26/24 22:00 09/26/24 22:44 Temperature Pulse Rate 102 H 102 H 102 H Respiratory Rate 30 H 30 H Blood Pressure Pulse Oximetry 96 Oxygen Delivery Mechanical Ventilation Oxygen Flow Rate Fraction of Inspired Oxygen 90 09/26/24 23:00 09/26/24 23:30 09/27/24 00:00 Temperature 99.4 F Pulse Rate 101 H 101 H Respiratory Rate 31 H 28 H Blood Pressure 106/66 Pulse Oximetry 94 96 Oxygen Delivery Mechanical Ventilation Oxygen Flow Rate Fraction of Inspired Oxygen 80 09/27/24 00:00 09/27/24 00:00 09/27/24 00:00 Temperature Pulse Rate 100 101 H 101 H Respiratory Rate 28 H 28 H Blood Pressure Pulse Oximetry Oxygen Delivery Oxygen Flow Rate Fraction of Inspired Oxygen 09/27/24 00:00 09/27/24 00:00 09/27/24 01:10 Temperature Pulse Rate 100 105 H Respiratory Rate 28 H 28 H Blood Pressure Pulse Oximetry 96 Oxygen Delivery Mechanical Ventilation Oxygen Flow Rate 30 Fraction of Inspired Oxygen 80 80 09/27/24 01:27 09/27/24 02:00 09/27/24 02:00 Temperature 99.4 F Pulse Rate 100 105 H 105 H Respiratory Rate 28 H Blood Pressure 121/74 Pulse Oximetry 94 93 Oxygen Delivery Mechanical Ventilation Oxygen Flow Rate Fraction of Inspired Oxygen 80 09/27/24 02:00 09/27/24 02:00 09/27/24 04:00 Temperature 99.3 F Pulse Rate 105 H 105 H 108 H Respiratory Rate 28 H 28 H 28 H Blood Pressure 124/66 Pulse Oximetry 92 Oxygen Delivery Oxygen Flow Rate Fraction of Inspired Oxygen 09/27/24 04:00 09/27/24 04:00 09/27/24 04:00 Temperature Pulse Rate 107 H 107 H Respiratory Rate 29 H Blood Pressure Pulse Oximetry 92 Oxygen Delivery Mechanical Ventilation Oxygen Flow Rate 30 Fraction of Inspired Oxygen 80 80 09/27/24 04:00 09/27/24 04:00 09/27/24 05:03 Temperature Pulse Rate 102 H 102 H 108 H Respiratory Rate 28 H 28 H Blood Pressure Pulse Oximetry 92 Oxygen Delivery Mechanical Ventilation Oxygen Flow Rate Fraction of Inspired Oxygen 80 09/27/24 06:00 09/27/24 06:00 09/27/24 06:00 Temperature 99.3 F Pulse Rate 104 H 104 H 105 H Respiratory Rate 29 H 29 H Blood Pressure 114/72 Pulse Oximetry 95 Oxygen Delivery Oxygen Flow Rate Fraction of Inspired Oxygen 09/27/24 06:00 Temperature Pulse Rate 104 H Respiratory Rate 29 H Blood Pressure Pulse Oximetry Oxygen Delivery Oxygen Flow Rate Fraction of Inspired Oxygen Intake/Output Intake/Output: Intake & Output 09/24/24 09/25/24 09/26/24 09/27/24 23:59 23:59 23:59 23:59 Intake Total 1816.4 1752.6 1775.7 753.2 Output Total 1450 2160 3202 120 Balance 366.4 -407.4 -1426.3 633.2 Meds/Results Medications: Active Medications Generic Name Dose Route Start Last Admin Trade Name Freq PRN Reason Stop Dose Admin Acetaminophen 650 mg 09/20/24 19:03 09/21/24 11:59 Acetaminophen Elixir 325 Mg/10.15 Ml Udc PO 650 mg Q4H PRN Administration Mild Pain (1-3) or Fever Albuterol/Ipratropium 3 ml 09/22/24 08:26 Ipratropium 0.5 Mg/Albuterol Sulfate 2.5 Mg Ampul.Neb 3 Ml INHALATION Q6HRT PRN wheezing Dextrose 12.5 gm 09/20/24 03:19 Dextrose 50% 25 Gm/50 Ml Syringe IV PUSH PRN PRN Hypoglycemia Protocol Enoxaparin Sodium 30 mg 09/27/24 09:00 Enoxaparin 30 Mg/0.3 Ml Syringe SUB-Q DAILY TOMY Epoetin Jaspreet-epbx 10,000 units 09/27/24 18:39 Epoetin Jaspreet-Epbx 10,000 Units/Ml Vial IV PUSH 09/27/24 18:40 ONCE ONE Glucagon 1 mg 09/20/24 03:19 Glucagon For Inj 1 Mg Vial IM PRN PRN Hypoglycemia Protocol Glucose 15 gm 09/20/24 03:19 Glucose Oral Gel 15 Gm Of Glucse In 37.5 Gm Tube PO PRN PRN Hypoglycemia Protocol Dextrose 1,000 mls @ 100 mls/hr 09/20/24 03:19 Dextrose 5% 1,000 Ml IVPB PRN PRN Hypoglycemia Protocol Fentanyl Citrate 2,500 mcg in 250 mls @ 7.5 mls/hr 09/20/24 21:10 09/27/24 06:00 Fentanyl 2,500 Mcg/Ns 250 Ml IV CONT 100 mcg/hr .[id number] TOMY 10 mls/hr Titration Protocol 75 MCG/HR Midazolam HCl 100 mg in 100 mls @ 2 mls/hr 09/20/24 22:10 09/27/24 06:00 Versed 100 Mg/Ns 100 Ml IV CONT 2 mg/hr .Q50H TMOY 2 mls/hr Titration Protocol 2 MG/HR Albumin Human 50 mls @ 999 mls/hr 09/26/24 12:07 Albutein IVPB 10/26/24 12:06 Q10M PRN HYPOTENSION Cefepime HCl 1 gm in 50 mls @ 100 mls/hr 09/26/24 21:00 09/26/24 22:00 Maxipime 1 Gm/Ns 50 Ml IVPB Infused Q24H TOMY Infusion Insulin Aspart 4 - 8 units 09/21/24 08:40 09/27/24 05:45 Insulin Aspart (*Bkc) 100 Units/Ml SUB-Q 4 units Q4H TOMY Administration Protocol Insulin Glargine 40 units 09/22/24 09:00 09/26/24 09:03 Insulin Glargine (*Bkc) 100 Units/Ml SUB-Q 40 units QAM TOMY Administration Levothyroxine Sodium 100 mcg 09/21/24 06:30 09/27/24 05:47 Levothyroxine Sodium 100 Mcg Tablet FEED TUBE 100 mcg DAILY@0630 TOMY Administration Multi-Ingred Cream/Lotion/Oil/Oint 1 applic 09/20/24 21:00 09/26/24 21:09 Mineral Oil/White Petrolatum Ointment EACH EYE 1 applic Q12HR TOMY Administration Pantoprazole Sodium 40 mg 09/20/24 09:00 09/26/24 09:02 Pantoprazole Sodium Iv 40 Mg Vial IV PUSH 40 mg QAM TOMY Administration Rocuronium [place] 50 mg 09/27/24 08:25 Rocuronium [place] 50 Mg/5 Ml Vial IV PUSH 09/27/24 08:26 ONCE ONE Sodium Chloride 10 ml 09/20/24 14:00 09/27/24 05:46 Central Line Flush IV PUSH 10 ml Q8HR TOMY Administration Sodium Chloride 20 ml 09/20/24 06:40 Central Line Flush IV PUSH PRN PRN after blood draws Vancomycin HCl 1 each 09/27/24 07:34 Vancomycin For Hemodialysis IVPB PRN PRN Vancomycin Protocol Radiology Results: ITS Impressions Chest CTA 09/20/24 05:30 Impression: Bilateral multifocal pneumonia, most extensively involving the lower lobes. No pulmonary embolus seen. Abdomen X-Ray 09/20/24 05:35 Impression: NG tube in satisfactory position. Abdomen Ultrasound 09/22/24 15:02 IMPRESSION: 1: Gallbladder wall thickening, nonspecific. No evidence for gallstones. 2: Fatty infiltration of the liver. Renal Ultrasound 09/22/24 15:14 IMPRESSION: 1. Normal kidneys without hydronephrosis. Chest X-Ray 09/27/24 06:17 Impression: Stable support tubes. No pneumothorax. Stable extensive bilateral pulmonary consolidation. Labs Labs: Laboratory Results - last 24 hr 09/26/24 09/26/24 09/26/24 08:14 09:01 12:15 WBC 27.1 H RBC 3.62 L Hgb 9.0 L Hct 28.1 L MCV 77.6 L MCH 24.9 L MCHC 32.0 RDW 18.5 H Plt Count 156 MPV 13.0 H Immature Gran % (Auto) Not Reportable Neut % (Auto) Not Reportable Lymph % (Auto) Not Reportable [place] % (Auto) Not Reportable Eos % (Auto) Not Reportable Baso % (Auto) Not Reportable Lymph # (Auto) Not Reportable [place] # (Auto) Not Reportable Eos # (Auto) Not Reportable Baso # (Auto) Not Reportable Abs Immat Gran (auto) Not Reportable Absolute Neuts (auto) Not Reportable Absolute Nucleated RBC Not Reportable Total Counted 100 Neutrophils % (Manual) 69 Band Neutrophils % 13 H Lymphocytes % (Manual) 15 L Monocytes % (Manual) 2 L Eosinophils % (Manual) 1 Nucleated RBC % Not Reportable Abs Neuts (Manual) 22.22 H Abs Lymphs (Manual) 4.06 Abs Monocytes (Manual) 0.54 Absolute Eos (Manual) 0.27 Nucleated RBCs 2 Platelet Estimate Adequate Hypochromasia 1+ Anisocytosis 2+ Target Cells 1+ Tear Drop Cells 1+ Ovalocytes 1+ [place] Cells Schistocytes None seen Puncture Site ABG pH ABG pCO2 ABG pO2 ABG PO2/FiO2 Ratio ABG HCO3 ABG O2 Saturation ABG O2 Content ABG Base Excess A-a Gradient Oxyhemoglobin Carboxyhemoglobin Methemoglobin Reduced Hemoglobin Total Hemoglobin O2 Delivery Device O2 Liters/Min Minute Volume Vent Rate Vent Mode FiO2 Tidal Volume PEEP Peak Inspir Pressure Pressure Support Sodium Potassium Chloride Carbon Dioxide Anion Gap BUN Creatinine Estim Creat Clear Calc Estimated GFR Glucose POC Capillary Glucose 243 H 197 H Calcium Phosphorus Magnesium Total Bilirubin AST ALT Alkaline Phosphatase Total Protein Albumin 09/26/24 09/26/24 09/27/24 17:14 21:09 00:55 WBC RBC Hgb Hct MCV MCH MCHC RDW Plt Count MPV Immature Gran % (Auto) Neut % (Auto) Lymph % (Auto) [place] % (Auto) Eos % (Auto) Baso % (Auto) Lymph # (Auto) [place] # (Auto) Eos # (Auto) Baso # (Auto) Abs Immat Gran (auto) Absolute Neuts (auto) Absolute Nucleated RBC Total Counted Neutrophils % (Manual) Band Neutrophils % Lymphocytes % (Manual) Monocytes % (Manual) Eosinophils % (Manual) Nucleated RBC % Abs Neuts (Manual) Abs Lymphs (Manual) Abs Monocytes (Manual) Absolute Eos (Manual) Nucleated RBCs Platelet Estimate Hypochromasia Anisocytosis Target Cells Tear Drop Cells Ovalocytes [place] Cells Schistocytes Puncture Site ABG pH ABG pCO2 ABG pO2 ABG PO2/FiO2 Ratio ABG HCO3 ABG O2 Saturation ABG O2 Content ABG Base Excess A-a Gradient Oxyhemoglobin Carboxyhemoglobin Methemoglobin Reduced Hemoglobin Total Hemoglobin O2 Delivery Device O2 Liters/Min Minute Volume Vent Rate Vent Mode FiO2 Tidal Volume PEEP Peak Inspir Pressure Pressure Support Sodium Potassium Chloride Carbon Dioxide Anion Gap BUN Creatinine Estim Creat Clear Calc Estimated GFR Glucose POC Capillary Glucose 150 H 183 H 205 H Calcium Phosphorus Magnesium Total Bilirubin AST ALT Alkaline Phosphatase Total Protein Albumin 09/27/24 09/27/24 09/27/24 04:53 05:42 05:56 WBC 34.4 H RBC 3.50 L Hgb 8.6 L Hct 26.6 L MCV 76.0 L MCH 24.6 L MCHC 32.3 RDW 18.8 H Plt Count 163 MPV 11.3 H Immature Gran % (Auto) Not Reportable Neut % (Auto) Not Reportable Lymph % (Auto) Not Reportable [place] % (Auto) Not Reportable Eos % (Auto) Not Reportable Baso % (Auto) Not Reportable Lymph # (Auto) Not Reportable [place] # (Auto) Not Reportable Eos # (Auto) Not Reportable Baso # (Auto) Not Reportable Abs Immat Gran (auto) Not Reportable Absolute Neuts (auto) Not Reportable Absolute Nucleated RBC Not Reportable Total Counted 100 Neutrophils % (Manual) 81 H Band Neutrophils % 13 H Lymphocytes % (Manual) 3.0 L Monocytes % (Manual) 3 Eosinophils % (Manual) Nucleated RBC % Not Reportable Abs Neuts (Manual) 32.33 H Abs Lymphs (Manual) 1.03 L Abs Monocytes (Manual) 1.03 H Absolute Eos (Manual) Nucleated RBCs Platelet Estimate Adequate Hypochromasia 1+ Anisocytosis 1+ Target Cells 1+ Tear Drop Cells Ovalocytes [place] Cells 1+ Schistocytes None seen Puncture Site Left radial ABG pH 7.297 L* ABG pCO2 51.1 H ABG pO2 70.8 L ABG PO2/FiO2 Ratio 0.89 ABG HCO3 24.4 ABG O2 Saturation 92.4 L ABG O2 Content 11.9 L ABG Base Excess -2.2 A-a Gradient 446.0 Oxyhemoglobin 91.1 Carboxyhemoglobin 1.2 Methemoglobin 0.3 Reduced Hemoglobin 7.4 H Total Hemoglobin 9.2 L O2 Delivery Device Ventilator O2 Liters/Min Not Reportable Minute Volume Not Reportable Vent Rate 28 Vent Mode Cmv FiO2 80 Tidal Volume 340 PEEP 12 Peak Inspir Pressure Not Reportable Pressure Support Not Reportable Sodium 140 Potassium 4.7 Chloride 103 Carbon Dioxide 23 Anion Gap 14 H BUN 105 H D Creatinine 3.31 H Estim Creat Clear Calc 19 Estimated GFR 15 L Glucose 201 H POC Capillary Glucose 201 H Calcium 8.9 Phosphorus 3.9 Magnesium 2.4 H Total Bilirubin 0.9 AST 82 H ALT 186 H Alkaline Phosphatase 608 H Total Protein 6.0 L Albumin 2.7 L Quality VTE Prophylaxis VTE prophylaxis: pharmacologic ordered
[2024-09-27 08:40] LABS: Glucose Point of Care 173 mg/dl (65-105)
[2024-09-27] MEDS: MINERAL OIL/WHITE PETROLATUM OINTMENT 1 APPLIC EACH EYE ×2 (09:10→20:57)
[2024-09-27] MEDS: INSULIN GLARGINE (*BKC) 100 UNITS/ML 40 UNITS SUB-Q (09:10)
[2024-09-27] MEDS: ENOXAPARIN 30 MG/0.3 ML SYRINGE SUB-Q (09:10)
[2024-09-27] MEDS: PANTOPRAZOLE SODIUM IV 40 MG VIAL IV PUSH (09:10)
[2024-09-27] MEDS: DORNASE ALFA INH SOLN 1 MG/ML 2.5 ML AMP 2.5 MG INHALATION ×2 (09:20→19:47)
[2024-09-27] MEDS: IPRATROPIUM 0.5 MG/ALBUTEROL SULFATE 2.5 MG AMPUL.NEB 3 ML INHALATION ×3 (09:20→19:30)
[2024-09-27] MEDS: CISATRACURIUM BESYLATE 200 MG in DEXTROSE 5% 80 ML 6.25 ML IV CONT (09:20)
[2024-09-27 09:55] LABS: Vancomycin Random 19.8 ug/mL (10-20)
[2024-09-27 10:27] LABS: Triglycerides 138 mg/dL (<150)
--- NOTE | 2024-09-27 11:07 | PCFNICU ---
ICU Rounding Note: Pt current nutrition is Nepro at 40 ml/hr. Last recorded weight is 69.4 kg, up from 59.9 kg on admit. Bowel Motility:+BM reported 09/25 Labs Reviewed:Mg 2.4, Cr 3.1, BUN 105, Alb 2.7, Glu 201 Meds Noted: Lantus, Versed, Propofol, Nimbex, Cefepime. Skin: WNL Additional Notes: Patient remains on mechanical vent. Tube feedings are being tolerated of Nepro at 40 ml/hr with flush of 30 ml q 4 hours. Plans for dialysis today. Sedation medication change to Propofol. Patient is proned and current with chest tube. Following daily in ICU rounds. Will monitor weight, labs, skin, diet order, meds every Wednesday and Wednesday.
[2024-09-27] MEDS: PROPOFOL IV EMULSION 100 ML 2.08 MG IV CONT (11:34)
[2024-09-27 12:25] LABS: Glucose Point of Care 168 mg/dl (65-105)
--- NOTE | 2024-09-27 13:10 | PM.PNNEP ---
Progress Note: A&P Assessment and Plan (1) SCAR (acute kidney injury): Code(s): N17.9 - Acute kidney failure, unspecified Status: Acute Assessment and Plan: as noted by labs starting on 09/22 normal creatinine at baseline multifactorial etiology: prerenal factors insensible losses (from high fevers on admission) hemodynamic instability/shock sepsis/infection (pneumonia + influenza) contrast (CTA chest on 09/20) other(?) evaluation noted: urine electrolytes prerenal x 2 CPK okay renal ultrasound normal proteinuria noted (possibly due to diabetes) urine eosinophils negative UA with protein and glucose better urine output noted with diuretic trial on 09/23 and 09/24 good urine noted without diuretics on 09/25 however, BUN & creatinine continue to climb/worsen... s/p temporary HD catheter placement on 09/26 HD yesterday HD today and plan likely again tomorrow follow trend of repeat labs and UOP for potential renal recovery (2) Septic shock: Code(s): A41.9 - Sepsis, unspecified organism; R65.21 - Severe sepsis with septic shock Status: Acute Assessment and Plan: presumably due to pneumonia and possibly influenza s/p fluid resuscitation and IV albumin weaned off vasopressor therapy culture data noted blood culture negative to date sputum culture with Staph aureus off stress dose steroids on antibiotics follow trend of hemodynamics (3) Acute hypoxic respiratory failure: Code(s): J96.01 - Acute respiratory failure with hypoxia Status: Acute Assessment and Plan: due to pneumonia and influenza imaging noted: chest CTA (on 09/20): bilateral multifocal pneumonia, most extensively involving the lower lobes; no pulmonary embolus seen remains on mechanical ventilation intubated in the ER for airway protection and ongoing hypoxic respiratory failure unresponsive to BiPAP therapy weaning as able (4) Spontaneous pneumothorax: Code(s): J93.83 - Other pneumothorax Status: Acute Assessment and Plan: as noted by STAT chest x-ray on 09/25/24 afternoon s/p chest tube placement by Surgery repeat CXR with resolution of pneumothorax continue supportive therapy (5) Influenza: Code(s): J11.1 - Influenza due to unidentified influenza virus with other respiratory manifestations Status: Acute Assessment and Plan: as noted by testing in the ER respiratory isolation completed course of Tamiflu (6) PNA (pneumonia): Code(s): J18.9 - Pneumonia, unspecified organism Status: Acute Assessment and Plan: see #2 (7) Anemia, unspecified: Code(s): D64.9 - Anemia, unspecified Status: Acute Assessment and Plan: related to SCAR and acute illness PRBC transfusion per protocol EMANUEL with dialysis follow trend of H/H (8) Metabolic acidosis: Code(s): E87.20 - Acidosis, unspecified Status: Acute Assessment and Plan: due to SCAR and possibly mild lactic acidosis (on admission) s/p IVF resuscitation improved/stabilized with dialysis follow CO2 levels (9) Shock liver: Code(s): K72.00 - Acute and subacute hepatic failure without coma Status: Acute Assessment and Plan: slow improvement noted as noted by elevated AST and ALT alkaline phosphatase and bilirubin normal slow improvement noted RUQ ultrasound noted: gallbladder wall thickening no evidence of gallstones fatty infiltration of the liver negative hepatitis panel follow trend (10) Uncontrolled diabetes mellitus: Status: Acute Assessment and Plan: follow accu-cheks glycemic control per intensivisit Discussed case with Dr. Ramirez. Will continue to follow. Subjective Date/time seen: 09/27/24 13:10 Interval history: Follow-up for acute kidney injury/acute renal failure. Just started dialysis treatment at the time of my visit (seen on HD at 1:00PM); remains intubated/sedated and in prone positioning; hemodynamically stable off vasopressor therapy; tolerated dialysis treatment yesterday without any issue or problems. Exam Narrative: General: WD/WN female in NAD Heart:tachycardic, normal S1 and S2; no rub Lungs: coarse breath sounds Abdomen: soft, nontender, nondistended, positive bowel sounds Extremities: no cyanosis or clubbing; no edema Skin: warm and intact Objective Data Vital Signs Vital Signs: Vital Signs Temp Pulse Resp BP Pulse Ox O2 Del Method O2 Flow Rate 09/27/24 13:00 121 H 104/54 L 09/27/24 13:00 121 H 28 H 09/27/24 12:52 09/27/24 12:52 120 H 102/56 L 09/27/24 12:42 120 H 28 H 09/27/24 12:30 100.1 F H 123 H 28 H 112/59 L 93 09/27/24 12:30 122 H 28 H 09/27/24 12:10 124 H 28 H 09/27/24 12:00 123 H 28 H 09/27/24 12:00 100.1 F H 125 H 28 H 118/64 93 09/27/24 12:00 120 H 94 Mechanical Ventilation 09/27/24 12:00 123 H 28 H 09/27/24 11:46 120 H 28 H 09/27/24 11:34 121 H 283 H 09/27/24 11:34 123 H 28 H 09/27/24 10:30 116 H 28 H 124/63 09/27/24 10:15 113 H 28 H 123/64 09/27/24 10:10 09/27/24 10:01 112 H 28 H 129/65 09/27/24 10:00 100.1 F H 116 H 28 H 117/62 95 09/27/24 10:00 116 H 28 H 09/27/24 09:35 112 H 28 H 129/65 09/27/24 09:26 111 H 33 H 09/27/24 09:20 113 H 28 H 121/71 09/27/24 08:35 09/27/24 08:20 109 H 90 Mechanical Ventilation 09/27/24 08:00 99.5 F 110 H 25 H 139/83 88 L 09/27/24 08:00 110 H 25 H 09/27/24 06:00 104 H 29 H 09/27/24 06:00 105 H 29 H 09/27/24 06:00 99.3 F 104 H 29 H 114/72 95 09/27/24 06:00 104 H 09/27/24 05:03 108 H 92 Mechanical Ventilation 09/27/24 04:00 102 H 28 H 09/27/24 04:00 102 H 28 H 09/27/24 04:00 09/27/24 04:00 107 H 09/27/24 04:00 107 H 29 H 92 Mechanical Ventilation 30 09/27/24 04:00 99.3 F 108 H 28 H 124/66 92 09/27/24 02:00 105 H 28 H 09/27/24 02:00 105 H 28 H 09/27/24 02:00 99.4 F 105 H 28 H 121/74 93 09/27/24 02:00 105 H 09/27/24 01:27 100 94 Mechanical Ventilation 09/27/24 01:10 105 H 28 H 09/27/24 00:00 100 28 H 96 Mechanical Ventilation 30 09/27/24 00:00 09/27/24 00:00 101 H 28 H 09/27/24 00:00 101 H 28 H 09/27/24 00:00 100 09/27/24 00:00 99.4 F 101 H 28 H 106/66 96 09/26/24 23:30 101 H 31 H 09/26/24 23:00 94 Mechanical Ventilation 09/26/24 22:44 102 H 96 Mechanical Ventilation 09/26/24 22:00 102 H 30 H 09/26/24 22:00 102 H 30 H 09/26/24 22:00 102 H 09/26/24 22:00 99.2 F 102 H 30 H 90/55 L 96 09/26/24 20:17 95 Mechanical Ventilation 09/26/24 20:16 107 H 98 Mechanical Ventilation 09/26/24 20:00 104 H 28 H 09/26/24 20:00 104 H 28 H 09/26/24 20:00 99.0 F 104 H 28 H 101/62 96 09/26/24 20:00 09/26/24 20:00 107 H 09/26/24 20:00 96 Mechanical Ventilation 09/26/24 18:55 99.7 F H 110 H 26 H 99/73 L 97 09/26/24 18:35 107 H 101/70 09/26/24 18:30 109 H 92/72 L 09/26/24 18:15 110 H 97/67 L 09/26/24 18:00 113 H 95/68 L 09/26/24 18:00 99.8 F H 113 H 26 H 95/68 L 94 09/26/24 18:00 113 H 09/26/24 18:00 113 H 26 H 09/26/24 18:00 113 H 26 H 09/26/24 17:45 113 H 96/69 L 09/26/24 17:30 114 H 96/71 L 09/26/24 17:23 117 H 93 Mechanical Ventilation 09/26/24 17:15 116 H 95/71 L 09/26/24 17:00 118 H 98/71 L 09/26/24 16:45 118 H 102/69 09/26/24 16:30 118 H 108/69 09/26/24 16:15 118 H 109/75 09/26/24 16:00 99.8 F H 121 H 28 H 127/75 86 L 09/26/24 16:00 121 H 28 H 09/26/24 16:00 121 H 28 H 09/26/24 16:00 09/26/24 16:00 117 H 09/26/24 16:00 87 L Mechanical Ventilation 09/26/24 16:00 118 H 120/75 09/26/24 15:45 111 H 129/70 09/26/24 15:31 113 H 130/75 09/26/24 15:00 99.6 F 114 H 28 H 127/78 96 09/26/24 15:00 09/26/24 14:17 114 H 97 Mechanical Ventilation Intake/Output Intake/Output: Intake & Output 09/24/24 09/25/24 09/26/24 09/27/24 23:59 23:59 23:59 23:59 Intake Total 1816.4 1752.6 1775.7 836.9 Output Total 1450 2160 3202 120 Balance 366.4 -407.4 -1426.3 716.9 Meds/Results Medications: Active Medications Generic Name Dose Route Start Last Admin Trade Name Freq PRN Reason Stop Dose Admin Acetaminophen 650 mg 09/20/24 19:03 09/21/24 11:59 Acetaminophen Elixir 325 Mg/10.15 Ml Udc PO 650 mg Q4H PRN Administration Mild Pain (1-3) or Fever Acetylcysteine 200 mg 09/27/24 08:00 09/27/24 13:54 Acetylcysteine 20% Inhal Soln 800 Mg/4 Ml Vial INHALATION 200 mg Q6HRT TOMY Administration Albuterol/Ipratropium 3 ml 09/22/24 08:26 09/27/24 09:20 Ipratropium 0.5 Mg/Albuterol Sulfate 2.5 Mg Ampul.Neb 3 Ml INHALATION 3 ml Q6HRT PRN Administration wheezing Dextrose 12.5 gm 09/20/24 03:19 Dextrose 50% 25 Gm/50 Ml Syringe IV PUSH PRN PRN Hypoglycemia Protocol Dornase Jaspreet 2.5 mg 09/27/24 08:00 09/27/24 09:20 Dornase Jaspreet Inh Soln 1 Mg/Ml 2.5 Ml Amp INHALATION 2.5 mg Q12HRT TOMY Administration Enoxaparin Sodium 30 mg 09/27/24 09:00 09/27/24 09:10 Enoxaparin 30 Mg/0.3 Ml Syringe SUB-Q 30 mg DAILY TOMY Administration Epoetin Jaspreet-epbx 10,000 units 09/27/24 18:39 Epoetin Jaspreet-Epbx 10,000 Units/Ml Vial IV PUSH 09/27/24 18:40 ONCE ONE Glucagon 1 mg 09/20/24 03:19 Glucagon For Inj 1 Mg Vial IM PRN PRN Hypoglycemia Protocol Glucose 15 gm 09/20/24 03:19 Glucose Oral Gel 15 Gm Of Glucse In 37.5 Gm Tube PO PRN PRN Hypoglycemia Protocol Dextrose 1,000 mls @ 100 mls/hr 09/20/24 03:19 Dextrose 5% 1,000 Ml IVPB PRN PRN Hypoglycemia Protocol Midazolam HCl 100 mg in 100 mls @ 3 mls/hr 09/20/24 22:10 09/27/24 13:48 Versed 100 Mg/Ns 100 Ml IV CONT 3 mg/hr .[id number] TOMY 3 mls/hr Titration Protocol 3 MG/HR Albumin Human 50 mls @ 999 mls/hr 09/26/24 12:07 Albutein IVPB 10/26/24 12:06 Q10M PRN HYPOTENSION Cisatracurium Besylate 200 mg/ 100 mls @ 6.246 mls/hr 09/27/24 09:05 09/27/24 10:30 Dextrose IV CONT 3 mcg/kg/min .Q16H1M TOMY 6.25 mls/hr Titration Protocol 3 MCG/KG/MIN Linezolid 600 mg in 300 mls @ 300 mls/hr 09/27/24 21:00 Zyvox IVPB Q12HR TOMY Propofol 100 mls @ 14.574 mls/hr 09/27/24 10:15 09/27/24 13:00 Diprivan IV CONT 35 mcg/kg/min .Q6H52M TOMY 14.57 mls/hr Titration Protocol 35 MCG/KG/MIN Norepinephrine Bitartrate 8 mg in 250 mls @ 9.375 mls/hr 09/27/24 10:15 09/27/24 13:47 Levophed 8 Mg/D5w 250 Ml IV CONT 5 mcg/min .Q24H TOMY 9.38 mls/hr Administration Protocol 5 MCG/MIN Meropenem 1 gm in 100 mls @ 200 mls/hr 09/27/24 18:00 IVPB Q24H [facility] Insulin Aspart 4 - 8 units 09/21/24 08:40 09/27/24 12:30 Insulin Aspart (*Bkc) 100 Units/Ml SUB-Q Not Given Q4H [facility] Protocol Insulin Glargine 40 units 09/22/24 09:00 09/27/24 09:10 Insulin Glargine (*Bkc) 100 Units/Ml SUB-Q 40 units QAM TOMY Administration Levothyroxine Sodium 100 mcg 09/21/24 06:30 09/27/24 05:47 Levothyroxine Sodium 100 Mcg Tablet FEED TUBE 100 mcg DAILY@0630 TOMY Administration Multi-Ingred Cream/Lotion/Oil/Oint 1 applic 09/20/24 21:00 09/27/24 09:10 Mineral Oil/White Petrolatum Ointment EACH EYE 1 applic Q12HR TOMY Administration Pantoprazole Sodium 40 mg 09/20/24 09:00 09/27/24 09:10 Pantoprazole Sodium Iv 40 Mg Vial IV PUSH 40 mg QAM TOMY Administration Sodium Chloride 10 ml 09/20/24 14:00 09/27/24 05:46 Central Line Flush IV PUSH 10 ml Q8HR TOMY Administration Sodium Chloride 20 ml 09/20/24 06:40 Central Line Flush IV PUSH PRN PRN after blood draws Radiology Results: ITS Impressions Chest CTA 09/20/24 05:30 Impression: Bilateral multifocal pneumonia, most extensively involving the lower lobes. No pulmonary embolus seen. Abdomen X-Ray 09/20/24 05:35 Impression: NG tube in satisfactory position. Abdomen Ultrasound 09/22/24 15:02 IMPRESSION: 1: Gallbladder wall thickening, nonspecific. No evidence for gallstones. 2: Fatty infiltration of the liver. Renal Ultrasound 09/22/24 15:14 IMPRESSION: 1. Normal kidneys without hydronephrosis. Chest X-Ray 09/27/24 06:17 Impression: Stable support tubes. No pneumothorax. Stable extensive bilateral pulmonary consolidation. Labs Labs: Laboratory Tests 09/27/24 05:56 09/27/24 05:56 Calcium 8.9 Phosphorus 3.9 Magnesium 2.4 H Total Bilirubin 0.9 AST 82 H ALT 186 H Alkaline Phosphatase 608 H Total Protein 6.0 L Albumin 2.7 L
[2024-09-27] MEDS: NOREPINEPHRINE 8 MG/D5W 250 ML 8 MG/250 ML BAG 9.38 MG IV CONT (13:47)
[2024-09-27] MEDS: ACETYLCYSTEINE 20% INHAL SOLN 800 MG/4 ML VIAL 200 MG INHALATION ×2 (13:54→19:30)
[2024-09-27] MEDS: ALBUMIN HUMAN 25% 12.5 GM/50ML 50 ML IVPB (15:25)
[2024-09-27] MEDS: EPOETIN ALFA-EPBX 10,000 UNITS/ML VIAL 10000 UNITS IV PUSH (15:28)
[2024-09-27 16:35] LABS: Glucose Point of Care 169 mg/dl (65-105)
[2024-09-27] MEDS: HEPARIN SODIUM 1,000 UNITS/ML VIAL 4000 UNITS IV PUSH (16:35)
[2024-09-27] MEDS: MIDAZOLAM 100MG/NS 100ML(*CRX) 100 MG/100 ML BAG IV CONT (16:52)
--- NOTE | 2024-09-27 16:57 | PM.IMPN ---
Progress Note: A&P Assessment and Plan (1) Endotracheally intubated: Code(s): Z97.8 - Presence of other specified devices Status: Acute (2) Septic shock: Code(s): A41.9 - Sepsis, unspecified organism; R65.21 - Severe sepsis with septic shock Status: Acute (3) Sepsis: Qualifiers: Sepsis type: sepsis due to unspecified organism Sepsis acute organ dysfunction status: with acute organ dysfunction Severe sepsis acute organ dysfunction type: acute respiratory failure Acute respiratory failure type: with hypoxia Severe sepsis shock status: with septic shock Qualified Code(s): A41.9 - Sepsis, unspecified organism; R65.21 - Severe sepsis with septic shock; J96.01 - Acute respiratory failure with hypoxia Code(s): A41.9 - Sepsis, unspecified organism Status: Acute (4) Acute hypoxic respiratory failure: Code(s): J96.01 - Acute respiratory failure with hypoxia Status: Acute (5) Influenza: Code(s): J11.1 - Influenza due to unidentified influenza virus with other respiratory manifestations Status: Acute (6) SCAR (acute kidney injury): Code(s): N17.9 - Acute kidney failure, unspecified Status: Acute Plan patient with acute respiratory failure secondary to influenza A and pneumonia developing ARDS, on 09/25 while on the ventilator patient desaturated and was found to have left sided spontaneous pneumothorax, surgery was consulted and chest tube was placed which remains in place and seen by general surgery service, patient is now getting daily HD and managed by nephrology service, patient remain critically ill, in prone position managed by bilingual account manager. we appreciate bilingual account manager. 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 Patient had been taking NyQuil and Motrin at night. She reported fevers of 103.5 to nursing staff. On arrival she was lethargic drowsy and hot to touch with marked pallor. Her T-max in the ER was 104.6. She was initially placed on a non-rebreather with improvement her oxygen saturations to 92%. However shortly thereafter her work of breathing continued to increase in her oxygen saturations were dropping. An ABG was performed which demonstrated respiratory alkalosis with a PO2 of 64. She was placed on BiPAP but she would not tolerate the BiPAP and continue to pull it off. She was tried on high-flow nasal cannula but was only maintaining oxygen saturations in the low to mid 80s. She was subsequently intubated. She had an elevated D-dimer and had a CTA demonstrated bilateral multifocal pneumonia without evidence of pulmonary embolism. The patient was requiring a PEEP of 8 and 100% FiO2 to maintain oxygen saturations of 88-92%. The patient was started on empiric antibiotic therapy with cefepime doxycycline and vancomycin. She received 3 L isotonic IV fluid resuscitation (greater than 30 mL/kilos). Shortly after my evaluation the patient became acutely hypotensive. patient with acute respiratory failure secondary to influenza A and pneumonia developing ARDS, on 09/25 while on the ventilator patient desaturated and was found to have left sided spontaneous pneumothorax, surgery was consulted and chest tube was placed which remains in place and seen by general surgery service, patient is now getting daily HD and managed by nephrology service, patient remain critically ill, in prone position managed by bilingual account manager. we appreciate bilingual account manager. Review of Systems Review of Systems: ROS unobtainable: Yes unobtainable due to endotracheal tube, unobtainable due to medical condition and unobtainable due to mental status Exam Narrative: Patient is comfortable, in prone position HEENT: ET tube in place LUNGS: Bilateral poor air entry ABD: in prone position Lower extremities: no edema SKIN: nonjaundiced Neuro: Sedated and intubated Objective Data Vital Signs Vital Signs: Vital Signs - 24 hr 09/26/24 17:00 09/26/24 17:15 09/26/24 17:23 Temperature Pulse Rate 118 H 116 H 117 H Respiratory Rate Blood Pressure 98/71 L 95/71 L Pulse Oximetry 93 Oxygen Delivery Mechanical Ventilation Oxygen Flow Rate Fraction of Inspired Oxygen 100 09/26/24 17:30 09/26/24 17:45 09/26/24 18:00 Temperature Pulse Rate 114 H 113 H 113 H Respiratory Rate 26 H Blood Pressure 96/71 L 96/69 L Pulse Oximetry Oxygen Delivery Oxygen Flow Rate Fraction of Inspired Oxygen 09/26/24 18:00 09/26/24 18:00 09/26/24 18:00 Temperature 37.7 C H Pulse Rate 113 H 113 H 113 H Respiratory Rate 26 H 26 H Blood Pressure 95/68 L Pulse Oximetry 94 Oxygen Delivery Oxygen Flow Rate Fraction of Inspired Oxygen 09/26/24 18:00 09/26/24 18:15 09/26/24 18:30 Temperature Pulse Rate 113 H 110 H 109 H Respiratory Rate Blood Pressure 95/68 L 97/67 L 92/72 L Pulse Oximetry Oxygen Delivery Oxygen Flow Rate Fraction of Inspired Oxygen 09/26/24 18:35 09/26/24 18:55 09/26/24 20:00 Temperature 37.6 C H Pulse Rate 107 H 110 H Respiratory Rate 26 H Blood Pressure 101/70 99/73 L Pulse Oximetry 97 96 Oxygen Delivery Mechanical Ventilation Oxygen Flow Rate Fraction of Inspired Oxygen 90 09/26/24 20:00 09/26/24 20:00 09/26/24 20:00 Temperature 37.2 C Pulse Rate 107 H 104 H Respiratory Rate 28 H Blood Pressure 101/62 Pulse Oximetry 96 Oxygen Delivery Oxygen Flow Rate Fraction of Inspired Oxygen 90 09/26/24 20:00 09/26/24 20:00 09/26/24 20:16 Temperature Pulse Rate 104 H 104 H 107 H Respiratory Rate 28 H 28 H Blood Pressure Pulse Oximetry 98 Oxygen Delivery Mechanical Ventilation Oxygen Flow Rate Fraction of Inspired Oxygen 100 09/26/24 20:17 09/26/24 22:00 09/26/24 22:00 Temperature 37.3 C Pulse Rate 102 H 102 H Respiratory Rate 30 H Blood Pressure 90/55 L Pulse Oximetry 95 96 Oxygen Delivery Mechanical Ventilation Oxygen Flow Rate Fraction of Inspired Oxygen 90 09/26/24 22:00 09/26/24 22:00 09/26/24 22:44 Temperature Pulse Rate 102 H 102 H 102 H Respiratory Rate 30 H 30 H Blood Pressure Pulse Oximetry 96 Oxygen Delivery Mechanical Ventilation Oxygen Flow Rate Fraction of Inspired Oxygen 90 09/26/24 23:00 09/26/24 23:30 09/27/24 00:00 Temperature 37.4 C Pulse Rate 101 H 101 H Respiratory Rate 31 H 28 H Blood Pressure 106/66 Pulse Oximetry 94 96 Oxygen Delivery Mechanical Ventilation Oxygen Flow Rate Fraction of Inspired Oxygen 80 09/27/24 00:00 09/27/24 00:00 09/27/24 00:00 Temperature Pulse Rate 100 101 H 101 H Respiratory Rate 28 H 28 H Blood Pressure Pulse Oximetry Oxygen Delivery Oxygen Flow Rate Fraction of Inspired Oxygen 09/27/24 00:00 09/27/24 00:00 09/27/24 01:10 Temperature Pulse Rate 100 105 H Respiratory Rate 28 H 28 H Blood Pressure Pulse Oximetry 96 Oxygen Delivery Mechanical Ventilation Oxygen Flow Rate 30 Fraction of Inspired Oxygen 80 80 09/27/24 01:27 09/27/24 02:00 09/27/24 02:00 Temperature 37.4 C Pulse Rate 100 105 H 105 H Respiratory Rate 28 H Blood Pressure 121/74 Pulse Oximetry 94 93 Oxygen Delivery Mechanical Ventilation Oxygen Flow Rate Fraction of Inspired Oxygen 80 09/27/24 02:00 09/27/24 02:00 09/27/24 04:00 Temperature 37.4 C Pulse Rate 105 H 105 H 108 H Respiratory Rate 28 H 28 H 28 H Blood Pressure 124/66 Pulse Oximetry 92 Oxygen Delivery Oxygen Flow Rate Fraction of Inspired Oxygen 09/27/24 04:00 09/27/24 04:00 09/27/24 04:00 Temperature Pulse Rate 107 H 107 H Respiratory Rate 29 H Blood Pressure Pulse Oximetry 92 Oxygen Delivery Mechanical Ventilation Oxygen Flow Rate 30 Fraction of Inspired Oxygen 80 80 09/27/24 04:00 09/27/24 04:00 09/27/24 05:03 Temperature Pulse Rate 102 H 102 H 108 H Respiratory Rate 28 H 28 H Blood Pressure Pulse Oximetry 92 Oxygen Delivery Mechanical Ventilation Oxygen Flow Rate Fraction of Inspired Oxygen 80 09/27/24 06:00 09/27/24 06:00 09/27/24 06:00 Temperature 37.4 C Pulse Rate 104 H 104 H 105 H Respiratory Rate 29 H 29 H Blood Pressure 114/72 Pulse Oximetry 95 Oxygen Delivery Oxygen Flow Rate Fraction of Inspired Oxygen 09/27/24 06:00 09/27/24 08:00 09/27/24 08:00 Temperature 37.5 C Pulse Rate 104 H 110 H 110 H Respiratory Rate 29 H 25 H 25 H Blood Pressure 139/83 Pulse Oximetry 88 L Oxygen Delivery Oxygen Flow Rate Fraction of Inspired Oxygen 09/27/24 08:00 09/27/24 08:00 09/27/24 08:00 Temperature Pulse Rate 113 H Respiratory Rate Blood Pressure Pulse Oximetry 88 L Oxygen Delivery Mechanical Ventilation Oxygen Flow Rate Fraction of Inspired Oxygen 80 80 09/27/24 08:20 09/27/24 08:35 09/27/24 09:20 Temperature Pulse Rate 109 H 113 H Respiratory Rate 28 H Blood Pressure 121/71 Pulse Oximetry 90 Oxygen Delivery Mechanical Ventilation Oxygen Flow Rate Fraction of Inspired Oxygen 100 80 09/27/24 09:26 09/27/24 09:35 09/27/24 10:00 Temperature Pulse Rate 111 H 112 H 116 H Respiratory Rate 33 H 28 H 28 H Blood Pressure 129/65 Pulse Oximetry Oxygen Delivery Oxygen Flow Rate Fraction of Inspired Oxygen 09/27/24 10:00 09/27/24 10:00 09/27/24 10:01 Temperature 37.8 C H Pulse Rate 116 H 116 H 112 H Respiratory Rate 28 H 28 H Blood Pressure 117/62 129/65 Pulse Oximetry 95 Oxygen Delivery Oxygen Flow Rate Fraction of Inspired Oxygen 09/27/24 10:10 09/27/24 10:15 09/27/24 10:30 Temperature Pulse Rate 113 H 116 H Respiratory Rate 28 H 28 H Blood Pressure 123/64 124/63 Pulse Oximetry Oxygen Delivery Oxygen Flow Rate Fraction of Inspired Oxygen 100 09/27/24 11:34 09/27/24 11:34 09/27/24 11:46 Temperature Pulse Rate 123 H 121 H 120 H Respiratory Rate 28 H 283 H 28 H Blood Pressure Pulse Oximetry Oxygen Delivery Oxygen Flow Rate Fraction of Inspired Oxygen 09/27/24 12:00 09/27/24 12:00 09/27/24 12:00 Temperature 37.8 C H Pulse Rate 123 H 120 H 125 H Respiratory Rate 28 H 28 H Blood Pressure 118/64 Pulse Oximetry 94 93 Oxygen Delivery Mechanical Ventilation Oxygen Flow Rate Fraction of Inspired Oxygen 100 09/27/24 12:00 09/27/24 12:00 09/27/24 12:00 Temperature Pulse Rate 123 H 123 H Respiratory Rate 28 H 28 H Blood Pressure 118/64 Pulse Oximetry 93 Oxygen Delivery Mechanical Ventilation Oxygen Flow Rate Fraction of Inspired Oxygen 80 09/27/24 12:00 09/27/24 12:00 09/27/24 12:10 Temperature Pulse Rate 124 H 124 H Respiratory Rate 28 H Blood Pressure Pulse Oximetry Oxygen Delivery Oxygen Flow Rate Fraction of Inspired Oxygen 100 09/27/24 12:30 09/27/24 12:30 09/27/24 12:42 Temperature 37.8 C H Pulse Rate 122 H 123 H 120 H Respiratory Rate 28 H 28 H 28 H Blood Pressure 112/59 L Pulse Oximetry 93 Oxygen Delivery Oxygen Flow Rate Fraction of Inspired Oxygen 09/27/24 12:52 09/27/24 12:52 09/27/24 13:00 Temperature Pulse Rate 120 H 121 H Respiratory Rate 28 H Blood Pressure 102/56 L Pulse Oximetry Oxygen Delivery Oxygen Flow Rate Fraction of Inspired Oxygen 100 09/27/24 13:00 09/27/24 13:15 09/27/24 13:30 Temperature Pulse Rate 121 H 126 H 126 H Respiratory Rate Blood Pressure 104/54 L 95/57 L 89/57 L Pulse Oximetry Oxygen Delivery Oxygen Flow Rate Fraction of Inspired Oxygen 09/27/24 13:45 09/27/24 13:47 09/27/24 13:48 Temperature Pulse Rate 126 H 126 H 126 H Respiratory Rate 28 H Blood Pressure 90/54 L 90/54 L Pulse Oximetry Oxygen Delivery Oxygen Flow Rate Fraction of Inspired Oxygen 09/27/24 13:49 09/27/24 13:49 09/27/24 14:00 Temperature Pulse Rate 124 H 124 H 122 H Respiratory Rate 28 H 28 H Blood Pressure Pulse Oximetry 93 Oxygen Delivery Mechanical Ventilation Oxygen Flow Rate Fraction of Inspired Oxygen 100 09/27/24 14:00 09/27/24 14:00 09/27/24 14:00 Temperature Pulse Rate 123 H 122 H 122 H Respiratory Rate 28 H 28 H Blood Pressure 91/58 L 91/58 L Pulse Oximetry Oxygen Delivery Oxygen Flow Rate Fraction of Inspired Oxygen 09/27/24 14:00 09/27/24 14:00 09/27/24 14:00 Temperature 37.9 C H Pulse Rate 123 H 123 H 123 H Respiratory Rate 28 H Blood Pressure 83/61 L 83/61 L Pulse Oximetry 93 Oxygen Delivery Oxygen Flow Rate Fraction of Inspired Oxygen 09/27/24 14:06 09/27/24 14:10 09/27/24 14:15 Temperature Pulse Rate 122 H 121 H 122 H Respiratory Rate 28 H Blood Pressure 91/58 L 85/56 L Pulse Oximetry Oxygen Delivery Oxygen Flow Rate Fraction of Inspired Oxygen 09/27/24 14:30 09/27/24 14:45 09/27/24 15:00 Temperature Pulse Rate 122 H 122 H 122 H Respiratory Rate Blood Pressure 94/58 L 90/52 L 84/57 L Pulse Oximetry Oxygen Delivery Oxygen Flow Rate Fraction of Inspired Oxygen 09/27/24 15:10 09/27/24 15:15 09/27/24 15:30 Temperature Pulse Rate 120 H 118 H 116 H Respiratory Rate Blood Pressure 85/57 L 87/55 L 87/57 L Pulse Oximetry Oxygen Delivery Oxygen Flow Rate Fraction of Inspired Oxygen 09/27/24 15:45 09/27/24 16:00 09/27/24 16:00 Temperature 37.4 C Pulse Rate 113 H 113 H 114 H Respiratory Rate 28 H Blood Pressure 93/58 L 87/60 L 87/60 L Pulse Oximetry 99 Oxygen Delivery Oxygen Flow Rate Fraction of Inspired Oxygen 09/27/24 16:00 09/27/24 16:15 09/27/24 16:23 Temperature Pulse Rate 114 H 113 H 114 H Respiratory Rate 28 H Blood Pressure 83/55 L 83/56 L Pulse Oximetry Oxygen Delivery Oxygen Flow Rate Fraction of Inspired Oxygen 09/27/24 16:30 Temperature 37.3 C Pulse Rate 111 H Respiratory Rate 28 H Blood Pressure 92/52 L Pulse Oximetry 99 Oxygen Delivery Oxygen Flow Rate Fraction of Inspired Oxygen Intake/Output Intake/Output: Intake & Output 09/24/24 09/25/24 09/26/24 09/27/24 23:59 23:59 23:59 23:59 Intake Total 1816.4 1752.6 1775.7 882.0 Output Total 1450 2160 3202 1120 Balance 366.4 -407.4 -1426.3 -238.0 Meds/Results Medications: Active Medications Generic Name Dose Route Start Last Admin Trade Name Freq PRN Reason Stop Dose Admin Acetaminophen 650 mg 09/20/24 19:03 09/21/24 11:59 Acetaminophen Elixir 325 Mg/10.15 Ml Udc PO 650 mg Q4H PRN Administration Mild Pain (1-3) or Fever Acetylcysteine 200 mg 09/27/24 08:00 09/27/24 15:08 Acetylcysteine 20% Inhal Soln 800 Mg/4 Ml Vial INHALATION Not Given Q6HRT TOMY Albuterol/Ipratropium 3 ml 09/22/24 08:26 09/27/24 13:54 Ipratropium 0.5 Mg/Albuterol Sulfate 2.5 Mg Ampul.Neb 3 Ml INHALATION 3 ml Q6HRT PRN Administration wheezing Dextrose 12.5 gm 09/20/24 03:19 Dextrose 50% 25 Gm/50 Ml Syringe IV PUSH PRN PRN Hypoglycemia Protocol Dornase Jaspreet 2.5 mg 09/27/24 08:00 09/27/24 09:20 Dornase Jaspreet Inh Soln 1 Mg/Ml 2.5 Ml Amp INHALATION 2.5 mg Q12HRT TOMY Administration Enoxaparin Sodium 30 mg 09/27/24 09:00 09/27/24 09:10 Enoxaparin 30 Mg/0.3 Ml Syringe SUB-Q 30 mg DAILY TOMY Administration Epoetin Jaspreet-epbx 10,000 units 09/27/24 18:39 09/27/24 15:28 Epoetin Jaspreet-Epbx 10,000 Units/Ml Vial IV PUSH 09/27/24 18:40 10,000 units ONCE ONE Administration Glucagon 1 mg 09/20/24 03:19 Glucagon For Inj 1 Mg Vial IM PRN PRN Hypoglycemia Protocol Glucose 15 gm 09/20/24 03:19 Glucose Oral Gel 15 Gm Of Glucse In 37.5 Gm Tube PO PRN PRN Hypoglycemia Protocol Dextrose 1,000 mls @ 100 mls/hr 09/20/24 03:19 Dextrose 5% 1,000 Ml IVPB PRN PRN Hypoglycemia Protocol Midazolam HCl 100 mg in 100 mls @ 3 mls/hr 09/20/24 22:10 09/27/24 16:00 Versed 100 Mg/Ns 100 Ml IV CONT 3 mg/hr .[id number] TOMY 3 mls/hr Titration Protocol 3 MG/HR Albumin Human 50 mls @ 999 mls/hr 09/26/24 12:07 09/27/24 15:25 Albutein IVPB 10/26/24 12:06 999 mls/hr Q10M PRN Administration HYPOTENSION Cisatracurium Besylate 200 mg/ 100 mls @ 6.246 mls/hr 09/27/24 09:05 09/27/24 14:00 Dextrose IV CONT 3 mcg/kg/min .Q16H1M TOMY 6.25 mls/hr Titration Protocol 3 MCG/KG/MIN Linezolid 600 mg in 300 mls @ 300 mls/hr 09/27/24 21:00 Zyvox IVPB Q12HR TOMY Propofol 100 mls @ 14.574 mls/hr 09/27/24 10:15 09/27/24 14:00 Diprivan IV CONT 35 mcg/kg/min .Q6H52M TOMY 14.57 mls/hr Titration Protocol 35 MCG/KG/MIN Norepinephrine Bitartrate 8 mg in 250 mls @ 9.375 mls/hr 09/27/24 10:15 09/27/24 14:00 Levophed 8 Mg/D5w 250 Ml IV CONT 5 mcg/min .Q24H TOMY 9.38 mls/hr Titration Protocol 5 MCG/MIN Meropenem 1 gm in 100 mls @ 200 mls/hr 09/27/24 18:00 IVPB Q24H TOMY Insulin Aspart 4 - 8 units 09/21/24 08:40 09/27/24 16:43 Insulin Aspart (*Bkc) 100 Units/Ml SUB-Q Not Given Q4H TOMY Protocol Insulin Glargine 40 units 09/22/24 09:00 09/27/24 09:10 Insulin Glargine (*Bkc) 100 Units/Ml SUB-Q 40 units QAM TOMY Administration Levothyroxine Sodium 100 mcg 09/21/24 06:30 09/27/24 05:47 Levothyroxine Sodium 100 Mcg Tablet FEED TUBE 100 mcg DAILY@0630 TOMY Administration Multi-Ingred Cream/Lotion/Oil/Oint 1 applic 09/20/24 21:00 09/27/24 09:10 Mineral Oil/White Petrolatum Ointment EACH EYE 1 applic Q12HR TOMY Administration Pantoprazole Sodium 40 mg 09/20/24 09:00 09/27/24 09:10 Pantoprazole Sodium Iv 40 Mg Vial IV PUSH 40 mg QAM TOMY Administration Sodium Chloride 10 ml 09/20/24 14:00 09/27/24 05:46 Central Line Flush IV PUSH 10 ml Q8HR TOMY Administration Sodium Chloride 20 ml 09/20/24 06:40 Central Line Flush IV PUSH PRN PRN after blood draws Radiology Results: ITS Impressions Chest CTA 09/20/24 05:30 Impression: Bilateral multifocal pneumonia, most extensively involving the lower lobes. No pulmonary embolus seen. Abdomen X-Ray 09/20/24 05:35 Impression: NG tube in satisfactory position. Abdomen Ultrasound 09/22/24 15:02 IMPRESSION: 1: Gallbladder wall thickening, nonspecific. No evidence for gallstones. 2: Fatty infiltration of the liver. Renal Ultrasound 09/22/24 15:14 IMPRESSION: 1. Normal kidneys without hydronephrosis. Chest X-Ray 09/27/24 06:17 Impression: Stable support tubes. No pneumothorax. Stable extensive bilateral pulmonary consolidation. Labs Labs: Laboratory Results - last 24 hr 09/26/24 09/26/24 09/27/24 17:14 21:09 00:55 WBC RBC Hgb Hct MCV MCH MCHC RDW Plt Count MPV Immature Gran % (Auto) Neut % (Auto) Lymph % (Auto) [place] % (Auto) Eos % (Auto) Baso % (Auto) Lymph # (Auto) [place] # (Auto) Eos # (Auto) Baso # (Auto) Abs Immat Gran (auto) Absolute Neuts (auto) Absolute Nucleated RBC Total Counted Neutrophils % (Manual) Band Neutrophils % Lymphocytes % (Manual) Monocytes % (Manual) Nucleated RBC % Abs Neuts (Manual) Abs Lymphs (Manual) Abs Monocytes (Manual) Platelet Estimate Hypochromasia Anisocytosis Target Cells Nasim Cells Schistocytes Puncture Site ABG pH ABG pCO2 ABG pO2 ABG PO2/FiO2 Ratio ABG HCO3 ABG O2 Saturation ABG O2 Content ABG Base Excess A-a Gradient Oxyhemoglobin Carboxyhemoglobin Methemoglobin Reduced Hemoglobin Total Hemoglobin O2 Delivery Device O2 Liters/Min Minute Volume Vent Rate Vent Mode FiO2 Tidal Volume PEEP Peak Inspir Pressure Pressure Support Sodium Potassium Chloride Carbon Dioxide Anion Gap BUN Creatinine Estim Creat Clear Calc Estimated GFR Glucose POC Capillary Glucose 150 H 183 H 205 H Calcium Phosphorus Magnesium Total Bilirubin AST ALT Alkaline Phosphatase Total Protein Albumin Triglycerides Random Vancomycin 09/27/24 09/27/24 09/27/24 04:53 05:42 05:56 WBC 34.4 H RBC 3.50 L Hgb 8.6 L Hct 26.6 L MCV 76.0 L MCH 24.6 L MCHC 32.3 RDW 18.8 H Plt Count 163 MPV 11.3 H Immature Gran % (Auto) Not Reportable Neut % (Auto) Not Reportable Lymph % (Auto) Not Reportable [place] % (Auto) Not Reportable Eos % (Auto) Not Reportable Baso % (Auto) Not Reportable Lymph # (Auto) Not Reportable [place] # (Auto) Not Reportable Eos # (Auto) Not Reportable Baso # (Auto) Not Reportable Abs Immat Gran (auto) Not Reportable Absolute Neuts (auto) Not Reportable Absolute Nucleated RBC Not Reportable Total Counted 100 Neutrophils % (Manual) 81 H Band Neutrophils % 13 H Lymphocytes % (Manual) 3.0 L Monocytes % (Manual) 3 Nucleated RBC % Not Reportable Abs Neuts (Manual) 32.33 H Abs Lymphs (Manual) 1.03 L Abs Monocytes (Manual) 1.03 H Platelet Estimate Adequate Hypochromasia 1+ Anisocytosis 1+ Target Cells 1+ Nasim Cells 1+ Schistocytes None seen Puncture Site Left radial ABG pH 7.297 L* ABG pCO2 51.1 H ABG pO2 70.8 L ABG PO2/FiO2 Ratio 0.89 ABG HCO3 24.4 ABG O2 Saturation 92.4 L ABG O2 Content 11.9 L ABG Base Excess -2.2 A-a Gradient 446.0 Oxyhemoglobin 91.1 Carboxyhemoglobin 1.2 Methemoglobin 0.3 Reduced Hemoglobin 7.4 H Total Hemoglobin 9.2 L O2 Delivery Device Ventilator O2 Liters/Min Not Reportable Minute Volume Not Reportable Vent Rate 28 Vent Mode Cmv FiO2 80 Tidal Volume 340 PEEP 12 Peak Inspir Pressure Not Reportable Pressure Support Not Reportable Sodium 140 Potassium 4.7 Chloride 103 Carbon Dioxide 23 Anion Gap 14 H BUN 105 H D Creatinine 3.31 H Estim Creat Clear Calc 19 Estimated GFR 15 L Glucose 201 H POC Capillary Glucose 201 H Calcium 8.9 Phosphorus 3.9 Magnesium 2.4 H Total Bilirubin 0.9 AST 82 H ALT 186 H Alkaline Phosphatase 608 H Total Protein 6.0 L Albumin 2.7 L Triglycerides Random Vancomycin 09/27/24 09/27/24 09/27/24 08:35 09:07 09:09 WBC RBC Hgb Hct MCV MCH MCHC RDW Plt Count MPV Immature Gran % (Auto) Neut % (Auto) Lymph % (Auto) [place] % (Auto) Eos % (Auto) Baso % (Auto) Lymph # (Auto) [place] # (Auto) Eos # (Auto) Baso # (Auto) Abs Immat Gran (auto) Absolute Neuts (auto) Absolute Nucleated RBC Total Counted Neutrophils % (Manual) Band Neutrophils % Lymphocytes % (Manual) Monocytes % (Manual) Nucleated RBC % Abs Neuts (Manual) Abs Lymphs (Manual) Abs Monocytes (Manual) Platelet Estimate Hypochromasia Anisocytosis Target Cells [place] Cells Schistocytes Puncture Site ABG pH ABG pCO2 ABG pO2 ABG PO2/FiO2 Ratio ABG HCO3 ABG O2 Saturation ABG O2 Content ABG Base Excess A-a Gradient Oxyhemoglobin Carboxyhemoglobin Methemoglobin Reduced Hemoglobin Total Hemoglobin O2 Delivery Device O2 Liters/Min Minute Volume Vent Rate Vent Mode FiO2 Tidal Volume PEEP Peak Inspir Pressure Pressure Support Sodium Potassium Chloride Carbon Dioxide Anion Gap BUN Creatinine Estim Creat Clear Calc Estimated GFR Glucose POC Capillary Glucose 173 H Calcium Phosphorus Magnesium Total Bilirubin AST ALT Alkaline Phosphatase Total Protein Albumin Triglycerides 138 Random Vancomycin 19.8 09/27/24 09/27/24 12:19 16:33 WBC RBC Hgb Hct MCV MCH MCHC RDW Plt Count MPV Immature Gran % (Auto) Neut % (Auto) Lymph % (Auto) [place] % (Auto) Eos % (Auto) Baso % (Auto) Lymph # (Auto) [place] # (Auto) Eos # (Auto) Baso # (Auto) Abs Immat Gran (auto) Absolute Neuts (auto) Absolute Nucleated RBC Total Counted Neutrophils % (Manual) Band Neutrophils % Lymphocytes % (Manual) Monocytes % (Manual) Nucleated RBC % Abs Neuts (Manual) Abs Lymphs (Manual) Abs Monocytes (Manual) Platelet Estimate Hypochromasia Anisocytosis Target Cells Nasim Cells Schistocytes Puncture Site ABG pH ABG pCO2 ABG pO2 ABG PO2/FiO2 Ratio ABG HCO3 ABG O2 Saturation ABG O2 Content ABG Base Excess A-a Gradient Oxyhemoglobin Carboxyhemoglobin Methemoglobin Reduced Hemoglobin Total Hemoglobin O2 Delivery Device O2 Liters/Min Minute Volume Vent Rate Vent Mode FiO2 Tidal Volume PEEP Peak Inspir Pressure Pressure Support Sodium Potassium Chloride Carbon Dioxide Anion Gap BUN Creatinine Estim Creat Clear Calc Estimated GFR Glucose POC Capillary Glucose 168 H 169 H Calcium Phosphorus Magnesium Total Bilirubin AST ALT Alkaline Phosphatase Total Protein Albumin Triglycerides Random Vancomycin
[2024-09-27] MEDS: PROPOFOL IV EMULSION 100 ML 14.57 MG IV CONT (17:37)
[2024-09-27] MEDS: MEROPENEM 1 GM/NS 100 ML 1 GM/100 ML BAG IVPB (17:39)
[2024-09-27] MEDS: LINEZOLID 600 MG/300 ML 600 MG/300 ML SOLN 300 MG IVPB (20:57)
[2024-09-27] MEDS: CISATRACURIUM BESYLATE 200 MG in DEXTROSE 5% 80 ML 7.29 ML IV CONT (21:00)
[2024-09-27 21:08] LABS: Glucose Point of Care 315 mg/dl (65-105)
--- NOTE | 2024-09-27 21:14 | PC.NURSE ---
210 Updated Annabelle from [facility] concerning Levophed; sedation; paralytic; hemodialysis, urinary output and prone position. [facility] plans to follow case, patient is listed on the Donor Registry.
[2024-09-28] VITALS (69 sets, daily range): BP systolic 88–138; BP diastolic 45–73; PULSE 106–127; RESP 28–126; TEMP 36.8–38.4; O2SAT 91–96
[2024-09-28] MEDS: PROPOFOL IV EMULSION 100 ML 14.57 MG IV CONT ×4 (00:30→20:00)
[2024-09-28 01:13] LABS: Glucose Point of Care 417 mg/dl (65-105)
[2024-09-28] MEDS: INSULIN HUMAN REGULAR (*BKC) 100 UNITS/ML 10 UNITS IV PUSH (01:20)
[2024-09-28] MEDS: IPRATROPIUM 0.5 MG/ALBUTEROL SULFATE 2.5 MG AMPUL.NEB 3 ML INHALATION ×4 (01:55→20:37)
[2024-09-28] MEDS: ACETYLCYSTEINE 20% INHAL SOLN 800 MG/4 ML VIAL 200 MG INHALATION ×4 (01:55→20:39)
[2024-09-28] MEDS: CISATRACURIUM BESYLATE 200 MG in SODIUM CHLORIDE 0.9% IV 80 ML 9.37 ML IV CONT ×2 (02:00→10:31)
[2024-09-28 02:27] LABS: Glucose Point of Care 357 mg/dl (65-105)
[2024-09-28 02:48] LABS: Hepatitis B Core Ab Total NON-REACTIVE (NON-REACTIVE)
[2024-09-28 03:29] LABS: Glucose Point of Care 370 mg/dl (65-105)
[2024-09-28] MEDS: INSULIN ASPART (*BKC) 100 UNITS/ML SUB-Q (04:43)
[2024-09-28 04:54] LABS: Glucose Point of Care 374 mg/dl (65-105)
[2024-09-28 04:55] LABS: Alveolar/Arterial O2 Gradient 395.6 mmHg; Base Excess ABG -3.4 mEq/l (+/-2.0); Carboxyhemoglobin 1.4 % THb (0-2.0); Fractional Inspired Oxygen 80 %; HCO3 ABG 23.7 mEq/l (22.0-26.0); Methemoglobin ABG 0.3 %THb (0-1.5); Oxygen Content ABG 11.7 %vol (16.0-22.0); Oxygen Saturation ABG 97.6 % (95.0-100.0); Oxyhemoglobin 96.7 % THb (90.0-100.0); PCO2 ABG 54.6 mmHg (35.0-45.0); PO2 ABG 117.5 mmHg (80.0-100.0); PO2 FiO2 Ratio Arterial Blood 1.47 %; Reduced Hemoglobin 1.6 %THb (0-5.0); Total Hemoglobin 8.4 g/dL (12.0-18.0)
[2024-09-28 04:58] LABS: Device VENTILATOR; Modified Allen's Test Pass; Site Drawn RIGHT RADIAL; pH ABG 7.256 (7.350-7.450)
[2024-09-28 04:59] LABS: Arterial Blood Gas PEEP 12 cmH2O; Arterial Blood Gas Tidal Volume 340 ml; Arterial Blood Gas Vent Mode CMV; Arterial Blood Gas Ventilator rate 28 /MIN
[2024-09-28] MEDS: LEVOTHYROXINE SODIUM 100 MCG TABLET FEED TUBE (05:25)
[2024-09-28] MEDS: CENTRAL LINE FLUSH 10 ML IV PUSH ×3 (05:25→21:13)
[2024-09-28 05:35] LABS: Glucose Point of Care 393 mg/dl (65-105)
[2024-09-28 05:47] LABS: Hematocrit 24.3 % (37.0-47.0); Hemoglobin 7.7 g/dL (12.0-15.0); Mean Corpuscular HGB Conc 31.7 g/dl (32-36); Mean Corpuscular Hemoglobin 24.9 pg (26-34); Mean Corpuscular Volume 78.6 fl (80-100); Mean Platelet Volume 12.3 fl (7.4-10.4); Platelet Count Result 169 k/mm3 (150-375); Red Blood Count 3.09 M/mm3 (4.2-5.4); Red Cell Distribution Width 19.5 % (11.5-14.5); White Blood Count 36.6 K/mm3 (4.5-10.0)
[2024-09-28 06:20] LABS: Alanine Aminotransferase 115 U/L (6-35); Albumin Level 2.6 g/dL (3.5-5.1); Alkaline Phosphatase 524 U/L (38-126); Anion Gap 12 mmol/L (4-12); Aspartate Amino Transferase 55 U/L (14-36); Bilirubin,Total 0.9 mg/dL (0.2-1.3); Blood Urea Nitrogen 71 mg/dL (7-17); Calcium 8.7 mg/dL (8.4-10.2); Carbon Dioxide 23 mmol/L (22-30); Chloride 99 mmol/L (98-107); Estimated CRCL calculation 22 ml/min; Estimated Glomerular Filt Rate 18; Glucose 401 mg/dL (65-110); Magnesium 2.3 mg/dL (1.6-2.3); Phosphorus 4.2 mg/dL (2.5-4.5); Potassium 4.5 mmol/L (3.4-5.0); Sodium 134 mmol/L (137-145)
[2024-09-28 06:44] LABS: Band Neutrophils Percent 11 % (0-6); Lymphocytes Absolute Manual 2.19 K/mm3 (1.1-4.5); Lymphocytes Percent Manual 6 % (18-44); Monocytes Absolute Manual 1.09 K/mm3 (0.1-0.90); Monocytes Percent Manual 3 % (3-9); Neutrophils Percent Manual 80 % (46-73); Platelet Estimate Adequate (Adequate); Total Cells Counted 100
[2024-09-28 06:45] LABS: Anisocytosis 2+; Hypochromasia 2+; Schistocytes None Seen; Target Cells 1+
[2024-09-28] MEDS: DORNASE ALFA INH SOLN 1 MG/ML 2.5 ML AMP 2.5 MG INHALATION ×2 (07:50→20:39)
[2024-09-28] MEDS: PANTOPRAZOLE SODIUM IV 40 MG VIAL IV PUSH (08:17)
[2024-09-28] MEDS: ENOXAPARIN 30 MG/0.3 ML SYRINGE SUB-Q (08:17)
--- NOTE | 2024-09-28 08:26 | WPDINTPN ---
Progress Note: A&P Assessment and Plan (1) Spontaneous pneumothorax: Code(s): J93.83 - Other pneumothorax Status: Acute Assessment and Plan: 09/25/2024: In the afternoon patient started to desaturate with O2 sats in the mid 80s, peep was increased, FiO2 was increased with no improvement, on auscultation left-sided breath sounds were decreased, stat chest x-ray showed spontaneous pneumothorax. Chest tube was inserted on 09/25, by surgery. Chest x-ray post chest tube insertion showed resolution of the pneumothorax with improvement in O2 sats. -surgery to manage chest tube -no air leak noted (2) Acute hypoxic respiratory failure: Code(s): J96.01 - Acute respiratory failure with hypoxia Status: Acute Assessment and Plan: Acute respiratory failure secondary to influenza A and pneumonia proceeding to ARDS 09/20: Intubated in the ER Patient now intubated and on mechanical ventilation ABG reviewed. will allow permissive hypercapnia. -tidal volume 340 mL, peep 12, FiO2 80%. Continue to wean FiO2 to maintain O2 sats > 92% Continue sedation with Versed and propofol Bronchodilators 09/27: increased FiO2 requirements, on high Ventilatory support. Added Pulmozyme and Mucomyst nebs. Placed pt in prone position 09/28: Chest x-ray unchanged, ABGs reviewed, increase tidal volume, continue prone positioning, continue Pulmozyme and Mucomyst nebs 09/20: CTA chest Bilateral multifocal pneumonia, most extensively involving the lower lobes. No pulmonary embolus seen. (3) Uncontrolled diabetes mellitus: Status: Acute Assessment and Plan: SSI Hyperglycemia with blood sugars in the 300s to 400s, will start insulin infusion -DC Lantus Continue tube feeds (4) Septic shock: Code(s): A41.9 - Sepsis, unspecified organism; R65.21 - Severe sepsis with septic shock Status: Acute Assessment and Plan: Septic shock secondary to pneumonia Hold further IV fluids off Stress dose steroids 09/19: Blood cultures are negative till now 09/21: Sputum cultures growing Staph aureus 09/27: Switched vancomycin and cefepime to linezolid and meropenem, WBC count trending up, afebrile, bandemia -completed 5 day course of doxycycline -patient requires CT scan of the chest, abdomen and pelvis once she is placed in supine position (5) PNA (pneumonia): Code(s): J18.9 - Pneumonia, unspecified organism Status: Acute Assessment and Plan: See above (6) Hypothyroidism: Code(s): E03.9 - Hypothyroidism, unspecified Status: Acute Assessment and Plan: Continue levothyroxine Normal TSH (7) Influenza: Code(s): J11.1 - Influenza due to unidentified influenza virus with other respiratory manifestations Status: Acute Assessment and Plan: Isolation Status post Tamiflu (8) SCAR (acute kidney injury): Code(s): N17.9 - Acute kidney failure, unspecified Status: Acute Assessment and Plan: Patient presented with elevated creatinine which has been gradually getting worse This is likely multifactorial secondary to sepsis, shock possible contrast induced injury. Patient is also on medications including vancomycin Normal CK Renal ultrasound showed normal kidney without hydronephrosis Patient at risk of needing [employer] Discussed with nephrology today regarding initiation of hemodialysis. Podiatry Teacher feels that urine output has improved over last 24 hours. Recommends continuing Lasix for another 24 hours and re-evaluate need for dialysis 09/25: Worsening and creatinine and BUN despite diuretics, will discuss with Nephrology regarding dialysis 09/26: Discussed with Nephrology, patient is making good urine despite but her BUN and creatinine trending up, discussed with family regarding dialysis, family okay with dialysis. HD catheter placed in left IJ. Started HD Dialysis per nephrology (9) Shock liver: Code(s): K72.00 - Acute and subacute hepatic failure without coma Status: Acute Assessment and Plan: Elevated AST and ALT likely secondary to shock liver and cholestasis secondary to sepsis and shock US right upper quadrant ultrasound shows gallbladder wall thickening nonspecific no evidence of gallstones. Fatty infiltration of the liver Negative hepatitis panel LFTs improving, bilirubin is normal Continue to monitor (10) Thrombocytopenia: Code(s): D69.6 - Thrombocytopenia, unspecified Status: Acute Assessment and Plan: Gradual in platelet count since admission likely multifactorial secondary to sepsis medications and hemodilution -platelets her low back to normal, continue Lovenox Plan DVT prophylaxis -SCDs, restarted Lovenox as thrombocytopenia has resolved, Stress ulcer prophylaxis -Protonix Nutrition - tolerating tube feeds Code Status - Full Code Total Critical Care Mono: 35 minutes Discussed with patient's mother yesterday who is the POA, updated with patient's condition and plan of care. I answered all questions. She is aware that patient is significantly sick and that she will require dialysis at some point. Due to a high probability of clinically significant, life threatening deterioration, the patient required my highest level of preparedness to intervene emergently and I personally spent this critical care time directly and personally managing the patient. This critical care time included obtaining a history; examining the patient; pulse oximetry; ordering and review of studies; arranging urgent treatment with development of a management plan; evaluation of patient's response to treatment; frequent reassessment; and discussions with other providers. It was exclusive of separately billable procedures and treating other patients and teaching time. Please see Assessment and Plan section and the rest of the note for further information on patient assessment and treatment This dictation may have been done utilizing a voice recognition system. Attempts have been made to correct errors. However, there may be uncorrected grammatical, spelling, and recognitions errors present. Subjective Date/time seen: 09/28/24 08:26 Interval history: Reason for consult: Acute respiratory failure, pneumonia, septic shock, acute kidney injury, pneumonia, hyperglycemia 09/25: Left pneumothorax status post chest tube by surgery 09/26: Left IJ dialysis catheter placed and started on hemodialysis 09/27: Placed in Prone position 09/28/2024: Patient seen and examined the ICU, remains intubated on CMV mode of ventilation, peep of 12, 80% FiO2. Sedated with Propofol and Versed infusion. Nimbex for Vent synchrony. Levophed started on 09/27. Tolerating tube feeds. HD done yesterday with 1000 ml in fluid removal. Anuric Review of Systems Review of Systems: ROS unobtainable: Yes unobtainable due to endotracheal tube, unobtainable due to medical condition and unobtainable due to mental status Exam Narrative: General: Pt is sedated, intubated and on mechanical ventilation. In Prone position HEENT: Pupils equal reactive, sclera is clear, ETT in place Lungs/Chest: Trachea central Coarse BS B/L, bilateral rales, no wheezing. Adequate air entry bilaterally. Left-sided chest tube in place Cardiac: Sinus tachycardia Circulation: Pedal pulses are weak but palpable, feet are much warm. Abdomen: Decreased bowel sounds. Soft. NT. ND. Extremities: Positive edema bilateral lower extremities up to the thighs. Warm : Leach in place Neurologic: Unable to assess due to sedation and Nimbex. Does not respond to painful stimuli Objective Data Vital Signs Vital Signs: Vital Signs - 24 hr 09/27/24 08:35 09/27/24 09:20 09/27/24 09:26 Temperature Pulse Rate 113 H 111 H Respiratory Rate 28 H 33 H Blood Pressure 121/71 Pulse Oximetry Oxygen Delivery Oxygen Flow Rate Fraction of Inspired Oxygen 80 09/27/24 09:35 09/27/24 10:00 09/27/24 10:00 Temperature 100.1 F H Pulse Rate 112 H 116 H 116 H Respiratory Rate 28 H 28 H 28 H Blood Pressure 129/65 117/62 Pulse Oximetry 95 Oxygen Delivery Oxygen Flow Rate Fraction of Inspired Oxygen 09/27/24 10:00 09/27/24 10:01 09/27/24 10:10 Temperature Pulse Rate 116 H 112 H Respiratory Rate 28 H Blood Pressure 129/65 Pulse Oximetry Oxygen Delivery Oxygen Flow Rate Fraction of Inspired Oxygen 100 09/27/24 10:15 09/27/24 10:30 09/27/24 11:34 Temperature Pulse Rate 113 H 116 H 123 H Respiratory Rate 28 H 28 H 28 H Blood Pressure 123/64 124/63 Pulse Oximetry Oxygen Delivery Oxygen Flow Rate Fraction of Inspired Oxygen 09/27/24 11:34 09/27/24 11:46 09/27/24 12:00 Temperature Pulse Rate 121 H 120 H 123 H Respiratory Rate 283 H 28 H 28 H Blood Pressure Pulse Oximetry Oxygen Delivery Oxygen Flow Rate Fraction of Inspired Oxygen 09/27/24 12:00 09/27/24 12:00 09/27/24 12:00 Temperature 100.1 F H Pulse Rate 120 H 125 H 123 H Respiratory Rate 28 H 28 H Blood Pressure 118/64 Pulse Oximetry 94 93 Oxygen Delivery Mechanical Ventilation Oxygen Flow Rate Fraction of Inspired Oxygen 100 09/27/24 12:00 09/27/24 12:00 09/27/24 12:00 Temperature Pulse Rate 123 H Respiratory Rate 28 H Blood Pressure 118/64 Pulse Oximetry 93 Oxygen Delivery Mechanical Ventilation Oxygen Flow Rate Fraction of Inspired Oxygen 80 100 09/27/24 12:00 09/27/24 12:10 09/27/24 12:30 Temperature Pulse Rate 124 H 124 H 122 H Respiratory Rate 28 H 28 H Blood Pressure Pulse Oximetry Oxygen Delivery Oxygen Flow Rate Fraction of Inspired Oxygen 09/27/24 12:30 09/27/24 12:42 09/27/24 12:52 Temperature 100.1 F H Pulse Rate 123 H 120 H 120 H Respiratory Rate 28 H 28 H Blood Pressure 112/59 L 102/56 L Pulse Oximetry 93 Oxygen Delivery Oxygen Flow Rate Fraction of Inspired Oxygen 09/27/24 12:52 09/27/24 13:00 09/27/24 13:00 Temperature Pulse Rate 121 H 121 H Respiratory Rate 28 H Blood Pressure 104/54 L Pulse Oximetry Oxygen Delivery Oxygen Flow Rate Fraction of Inspired Oxygen 100 09/27/24 13:15 09/27/24 13:30 09/27/24 13:45 Temperature Pulse Rate 126 H 126 H 126 H Respiratory Rate Blood Pressure 95/57 L 89/57 L 90/54 L Pulse Oximetry Oxygen Delivery Oxygen Flow Rate Fraction of Inspired Oxygen 09/27/24 13:47 09/27/24 13:48 09/27/24 13:49 Temperature Pulse Rate 126 H 126 H 124 H Respiratory Rate 28 H Blood Pressure 90/54 L Pulse Oximetry 93 Oxygen Delivery Mechanical Ventilation Oxygen Flow Rate Fraction of Inspired Oxygen 100 09/27/24 13:49 09/27/24 14:00 09/27/24 14:00 Temperature Pulse Rate 124 H 122 H 123 H Respiratory Rate 28 H 28 H 28 H Blood Pressure Pulse Oximetry Oxygen Delivery Oxygen Flow Rate Fraction of Inspired Oxygen 09/27/24 14:00 09/27/24 14:00 09/27/24 14:00 Temperature Pulse Rate 122 H 122 H 123 H Respiratory Rate 28 H Blood Pressure 91/58 L 91/58 L 83/61 L Pulse Oximetry Oxygen Delivery Oxygen Flow Rate Fraction of Inspired Oxygen 09/27/24 14:00 09/27/24 14:00 09/27/24 14:06 Temperature 100.3 F H Pulse Rate 123 H 123 H 122 H Respiratory Rate 28 H Blood Pressure 83/61 L 91/58 L Pulse Oximetry 93 Oxygen Delivery Oxygen Flow Rate Fraction of Inspired Oxygen 09/27/24 14:10 09/27/24 14:15 09/27/24 14:30 Temperature Pulse Rate 121 H 122 H 122 H Respiratory Rate 28 H Blood Pressure 85/56 L 94/58 L Pulse Oximetry Oxygen Delivery Oxygen Flow Rate Fraction of Inspired Oxygen 09/27/24 14:45 09/27/24 15:00 09/27/24 15:10 Temperature Pulse Rate 122 H 122 H 120 H Respiratory Rate Blood Pressure 90/52 L 84/57 L 85/57 L Pulse Oximetry Oxygen Delivery Oxygen Flow Rate Fraction of Inspired Oxygen 09/27/24 15:15 09/27/24 15:30 09/27/24 15:45 Temperature Pulse Rate 118 H 116 H 113 H Respiratory Rate Blood Pressure 87/55 L 87/57 L 93/58 L Pulse Oximetry Oxygen Delivery Oxygen Flow Rate Fraction of Inspired Oxygen 09/27/24 16:00 09/27/24 16:00 09/27/24 16:00 Temperature 99.3 F Pulse Rate 113 H 114 H 114 H Respiratory Rate 28 H 28 H Blood Pressure 87/60 L 87/60 L Pulse Oximetry 99 Oxygen Delivery Oxygen Flow Rate Fraction of Inspired Oxygen 09/27/24 16:00 09/27/24 16:00 09/27/24 16:00 Temperature Pulse Rate 114 H 114 H 114 H Respiratory Rate 28 H 28 H Blood Pressure 87/60 L 87/60 L Pulse Oximetry Oxygen Delivery Oxygen Flow Rate Fraction of Inspired Oxygen 09/27/24 16:00 09/27/24 16:00 09/27/24 16:00 Temperature Pulse Rate 113 H Respiratory Rate Blood Pressure Pulse Oximetry 99 Oxygen Delivery Mechanical Ventilation Oxygen Flow Rate Fraction of Inspired Oxygen 100 100 09/27/24 16:15 09/27/24 16:23 09/27/24 16:30 Temperature 99.1 F Pulse Rate 113 H 114 H 111 H Respiratory Rate 28 H Blood Pressure 83/55 L 83/56 L 92/52 L Pulse Oximetry 99 Oxygen Delivery Oxygen Flow Rate Fraction of Inspired Oxygen 09/27/24 16:52 09/27/24 16:52 09/27/24 17:37 Temperature Pulse Rate 109 H 109 H 105 H Respiratory Rate 28 H 28 H 28 H Blood Pressure Pulse Oximetry Oxygen Delivery Oxygen Flow Rate Fraction of Inspired Oxygen 09/27/24 17:37 09/27/24 18:00 09/27/24 18:00 Temperature Pulse Rate 106 H 105 H 105 H Respiratory Rate 28 H 28 H 28 H Blood Pressure 89/51 L Pulse Oximetry Oxygen Delivery Oxygen Flow Rate Fraction of Inspired Oxygen 09/27/24 18:00 09/27/24 18:00 09/27/24 18:00 Temperature Pulse Rate 105 H 105 H 105 H Respiratory Rate 28 H Blood Pressure 89/51 L Pulse Oximetry Oxygen Delivery Oxygen Flow Rate Fraction of Inspired Oxygen 09/27/24 18:00 09/27/24 18:25 09/27/24 18:30 Temperature 98.5 F Pulse Rate 105 H Respiratory Rate 28 H Blood Pressure 89/51 L Pulse Oximetry 100 Oxygen Delivery Oxygen Flow Rate Fraction of Inspired Oxygen 100 80 09/27/24 19:30 09/27/24 19:30 09/27/24 19:55 Temperature Pulse Rate 106 H 106 H 108 H Respiratory Rate 28 H 28 H Blood Pressure Pulse Oximetry 94 Oxygen Delivery Mechanical Ventilation Oxygen Flow Rate Fraction of Inspired Oxygen 80 09/27/24 20:00 09/27/24 20:00 09/27/24 20:00 Temperature Pulse Rate 108 H 108 H Respiratory Rate 28 H 28 H Blood Pressure 109/64 Pulse Oximetry 98 Oxygen Delivery Mechanical Ventilation Oxygen Flow Rate 30 Fraction of Inspired Oxygen 80 80 09/27/24 20:00 09/27/24 20:00 09/27/24 20:00 Temperature 98.3 F Pulse Rate 108 H 108 H 108 H Respiratory Rate 28 H 28 H 28 H Blood Pressure 109/64 Pulse Oximetry 98 Oxygen Delivery Oxygen Flow Rate Fraction of Inspired Oxygen 09/27/24 20:00 09/27/24 20:00 09/27/24 21:00 Temperature Pulse Rate 108 H 107 H 110 H Respiratory Rate 28 H Blood Pressure 109/64 105/54 L Pulse Oximetry Oxygen Delivery Oxygen Flow Rate Fraction of Inspired Oxygen 09/27/24 21:00 09/27/24 21:50 09/27/24 22:00 Temperature 98.3 F Pulse Rate 110 H 111 H 110 H Respiratory Rate 28 H 28 H 28 H Blood Pressure 105/54 L 105/55 L 109/56 L Pulse Oximetry 93 Oxygen Delivery Oxygen Flow Rate Fraction of Inspired Oxygen 09/27/24 22:00 09/27/24 22:00 09/27/24 22:00 Temperature Pulse Rate 110 H 110 H 110 H Respiratory Rate 28 H 28 H 28 H Blood Pressure 109/56 L Pulse Oximetry Oxygen Delivery Oxygen Flow Rate Fraction of Inspired Oxygen 09/27/24 22:00 09/27/24 22:00 09/27/24 22:44 Temperature Pulse Rate 110 H 110 H 108 H Respiratory Rate Blood Pressure 109/56 L Pulse Oximetry 94 Oxygen Delivery Mechanical Ventilation Oxygen Flow Rate Fraction of Inspired Oxygen 80 09/28/24 00:00 09/28/24 00:00 09/28/24 00:00 Temperature Pulse Rate 107 H 107 H 107 H Respiratory Rate 28 H 28 H Blood Pressure 105/54 L Pulse Oximetry 95 Oxygen Delivery Mechanical Ventilation Oxygen Flow Rate 30 Fraction of Inspired Oxygen 80 09/28/24 00:00 09/28/24 00:00 09/28/24 00:00 Temperature 98.3 F Pulse Rate 107 H 106 H Respiratory Rate 28 H Blood Pressure 105/54 L Pulse Oximetry 95 Oxygen Delivery Oxygen Flow Rate Fraction of Inspired Oxygen 80 09/28/24 00:00 09/28/24 00:00 09/28/24 00:30 Temperature Pulse Rate 107 H 107 H 108 H Respiratory Rate 28 H 28 H 28 H Blood Pressure 105/54 L Pulse Oximetry Oxygen Delivery Oxygen Flow Rate Fraction of Inspired Oxygen 09/28/24 00:30 09/28/24 00:40 09/28/24 01:55 Temperature Pulse Rate 108 H 106 H 113 H Respiratory Rate 28 H Blood Pressure 100/57 L Pulse Oximetry 96 Oxygen Delivery Mechanical Ventilation Oxygen Flow Rate Fraction of Inspired Oxygen 80 09/28/24 01:55 09/28/24 02:00 09/28/24 02:00 Temperature Pulse Rate 108 H 109 H 109 H Respiratory Rate 28 H 28 H Blood Pressure 88/45 L 88/45 L Pulse Oximetry Oxygen Delivery Oxygen Flow Rate Fraction of Inspired Oxygen 09/28/24 02:00 09/28/24 02:00 09/28/24 02:00 Temperature Pulse Rate 109 H 109 H 109 H Respiratory Rate 28 H 28 H 28 H Blood Pressure 88/45 L Pulse Oximetry Oxygen Delivery Oxygen Flow Rate Fraction of Inspired Oxygen 09/28/24 02:00 09/28/24 02:00 09/28/24 02:16 Temperature 98.4 F Pulse Rate 109 H 109 H 112 H Respiratory Rate 28 H 28 H Blood Pressure 88/45 L Pulse Oximetry 96 Oxygen Delivery Oxygen Flow Rate Fraction of Inspired Oxygen 09/28/24 04:00 09/28/24 04:00 09/28/24 04:00 Temperature Pulse Rate 113 H 113 H 113 H Respiratory Rate 28 H 28 H Blood Pressure 114/59 L Pulse Oximetry Oxygen Delivery Oxygen Flow Rate Fraction of Inspired Oxygen 09/28/24 04:00 09/28/24 04:00 09/28/24 04:00 Temperature 98.5 F Pulse Rate 113 H 113 H 112 H Respiratory Rate 28 H 28 H Blood Pressure 114/59 L 114/59 L Pulse Oximetry 96 Oxygen Delivery Oxygen Flow Rate Fraction of Inspired Oxygen 09/28/24 04:00 09/28/24 04:00 09/28/24 04:45 Temperature Pulse Rate 113 H 111 H Respiratory Rate 28 H Blood Pressure Pulse Oximetry 96 96 Oxygen Delivery Mechanical Ventilation Mechanical Ventilation Oxygen Flow Rate 30 Fraction of Inspired Oxygen 80 80 80 09/28/24 04:50 09/28/24 06:00 09/28/24 06:00 Temperature 98.5 F Pulse Rate 112 H 110 H 110 H Respiratory Rate 28 H 28 H Blood Pressure 111/67 106/58 L Pulse Oximetry 95 Oxygen Delivery Oxygen Flow Rate Fraction of Inspired Oxygen 09/28/24 06:00 09/28/24 06:00 09/28/24 06:00 Temperature Pulse Rate 110 H 110 H 110 H Respiratory Rate 28 H 28 H Blood Pressure 106/58 L Pulse Oximetry Oxygen Delivery Oxygen Flow Rate Fraction of Inspired Oxygen 09/28/24 06:00 09/28/24 06:20 09/28/24 06:20 Temperature Pulse Rate 110 H 108 H 108 H Respiratory Rate 28 H 28 H 28 H Blood Pressure 106/58 L Pulse Oximetry Oxygen Delivery Oxygen Flow Rate Fraction of Inspired Oxygen 09/28/24 07:51 09/28/24 08:00 09/28/24 08:01 Temperature Pulse Rate 108 H 108 H 111 H Respiratory Rate 28 H 28 H Blood Pressure Pulse Oximetry 93 Oxygen Delivery Mechanical Ventilation Oxygen Flow Rate Fraction of Inspired Oxygen 70 Intake/Output Intake/Output: Intake & Output 09/25/24 09/26/24 09/27/24 09/28/24 23:59 23:59 23:59 23:59 Intake Total 1752.6 1775.7 2042.0 903.3 Output Total 2160 3202 1170 32 Balance -407.4 -1426.3 872.0 871.3 Meds/Results Medications: Active Medications Generic Name Dose Route Start Last Admin Trade Name Freq PRN Reason Stop Dose Admin Acetaminophen 650 mg 09/20/24 19:03 09/21/24 11:59 Acetaminophen Elixir 325 Mg/10.15 Ml Udc PO 650 mg Q4H PRN Administration Mild Pain (1-3) or Fever Acetylcysteine 200 mg 09/27/24 08:00 09/28/24 07:51 Acetylcysteine 20% Inhal Soln 800 Mg/4 Ml Vial INHALATION 200 mg Q6HRT TOMY Administration Albuterol/Ipratropium 3 ml 09/22/24 08:26 09/28/24 07:51 Ipratropium 0.5 Mg/Albuterol Sulfate 2.5 Mg Ampul.Neb 3 Ml INHALATION 3 ml Q6HRT PRN Administration wheezing Dextrose 12.5 gm 09/20/24 03:19 Dextrose 50% 25 Gm/50 Ml Syringe IV PUSH PRN PRN Hypoglycemia Protocol Dornase Jaspreet 2.5 mg 09/27/24 08:00 09/28/24 07:50 Dornase Jaspreet Inh Soln 1 Mg/Ml 2.5 Ml Amp INHALATION 2.5 mg Q12HRT TOMY Administration Enoxaparin Sodium 30 mg 09/27/24 09:00 09/28/24 08:17 Enoxaparin 30 Mg/0.3 Ml Syringe SUB-Q 30 mg DAILY TOMY Administration Epoetin Jaspreet-epbx 10,000 units 09/28/24 18:33 Epoetin Jaspreet-Epbx 10,000 Units/Ml Vial IV PUSH 09/28/24 18:34 ONCE ONE Glucagon 1 mg 09/20/24 03:19 Glucagon For Inj 1 Mg Vial IM PRN PRN Hypoglycemia Protocol Glucose 15 gm 09/20/24 03:19 Glucose Oral Gel 15 Gm Of Glucse In 37.5 Gm Tube PO PRN PRN Hypoglycemia Protocol Dextrose 1,000 mls @ 100 mls/hr 09/20/24 03:19 Dextrose 5% 1,000 Ml IVPB PRN PRN Hypoglycemia Protocol Midazolam HCl 100 mg in 100 mls @ 3 mls/hr 09/20/24 22:10 09/28/24 06:00 Versed 100 Mg/Ns 100 Ml IV CONT 3 mg/hr .[id number] TOMY 3 mls/hr Titration Protocol 3 MG/HR Albumin Human 50 mls @ 999 mls/hr 09/26/24 12:07 09/27/24 15:25 Albutein IVPB 10/26/24 12:06 999 mls/hr Q10M PRN Administration HYPOTENSION Linezolid 600 mg in 300 mls @ 300 mls/hr 09/27/24 21:00 09/27/24 21:57 Zyvox IVPB Infused Q12HR TOMY Infusion Propofol 100 mls @ 14.574 mls/hr 09/27/24 10:15 09/28/24 06:20 Diprivan IV CONT 35 mcg/kg/min .Q6H52M TOMY 14.57 mls/hr Administration Protocol 35 MCG/KG/MIN Norepinephrine Bitartrate 8 mg in 250 mls @ 11.25 mls/hr 09/27/24 10:15 09/28/24 06:00 Levophed 8 Mg/D5w 250 Ml IV CONT 6 mcg/min .[id number] TOMY 11.25 mls/hr Titration Protocol 6 MCG/MIN Meropenem 1 gm in 100 mls @ 200 mls/hr 09/27/24 18:00 09/27/24 18:14 IVPB Infused Q24H TOMY Infusion Cisatracurium Besylate 200 mg/ 100 mls @ 10.41 mls/hr 09/28/24 02:05 09/28/24 06:00 Sodium Chloride IV CONT 5 mcg/kg/min .Q9H37M TOMY 10.41 mls/hr Titration Protocol 5 MCG/KG/MIN Insulin Human Regular 100 100 mls @ 6.73 mls/hr 09/28/24 08:10 units/ Sodium Chloride IV CONT .[id number] TOMY Protocol 0.1 UNITS/KG/HR Insulin Aspart 4 - 8 units 09/21/24 08:40 09/28/24 04:43 Insulin Aspart (*Bkc) 100 Units/Ml SUB-Q 8 units Q4H [facility] Administration Protocol Insulin Glargine 40 units 09/22/24 09:00 09/27/24 09:10 Insulin Glargine (*Bkc) 100 Units/Ml SUB-Q 40 units QAM [facility] Administration Levothyroxine Sodium 100 mcg 09/21/24 06:30 09/28/24 05:25 Levothyroxine Sodium 100 Mcg Tablet FEED TUBE 100 mcg DAILY@0630 [facility] Administration Miscellaneous Information 1 each 09/28/24 01:15 Pharmacist Communication Order XX 09/28/24 01:16 ONCE ONE Multi-Ingred Cream/Lotion/Oil/Oint 1 applic 09/20/24 21:00 09/27/24 20:57 Mineral Oil/White Petrolatum Ointment EACH EYE 1 applic Q12HR TOMY Administration Pantoprazole Sodium 40 mg 09/20/24 09:00 09/28/24 08:17 Pantoprazole Sodium Iv 40 Mg Vial IV PUSH 40 mg QAM TOMY Administration Sodium Chloride 10 ml 09/20/24 14:00 09/28/24 05:25 Central Line Flush IV PUSH 10 ml Q8HR TOMY Administration Sodium Chloride 20 ml 09/20/24 06:40 Central Line Flush IV PUSH PRN PRN after blood draws Radiology Results: ITS Impressions Chest CTA 09/20/24 05:30 Impression: Bilateral multifocal pneumonia, most extensively involving the lower lobes. No pulmonary embolus seen. Abdomen X-Ray 09/20/24 05:35 Impression: NG tube in satisfactory position. Abdomen Ultrasound 09/22/24 15:02 IMPRESSION: 1: Gallbladder wall thickening, nonspecific. No evidence for gallstones. 2: Fatty infiltration of the liver. Renal Ultrasound 09/22/24 15:14 IMPRESSION: 1. Normal kidneys without hydronephrosis. Chest X-Ray 09/28/24 06:02 Impression: 1: Stable extensive bilateral airspace disease. Differential diagnosis includes pneumonia, edema and/or ARDS. Labs Labs: Laboratory Results - last 24 hr 09/27/24 09/27/24 09/27/24 05:56 08:35 09:07 WBC RBC Hgb Hct MCV MCH MCHC RDW Plt Count MPV Immature Gran % (Auto) Neut % (Auto) Lymph % (Auto) [place] % (Auto) Eos % (Auto) Baso % (Auto) Lymph # (Auto) [place] # (Auto) Eos # (Auto) Baso # (Auto) Abs Immat Gran (auto) Absolute Neuts (auto) Absolute Nucleated RBC Total Counted Neutrophils % (Manual) Band Neutrophils % Lymphocytes % (Manual) Monocytes % (Manual) Nucleated RBC % Abs Neuts (Manual) Abs Lymphs (Manual) Abs Monocytes (Manual) Platelet Estimate Hypochromasia Anisocytosis Target Cells Schistocytes Puncture Site ABG pH ABG pCO2 ABG pO2 ABG PO2/FiO2 Ratio ABG HCO3 ABG O2 Saturation ABG O2 Content ABG Base Excess A-a Gradient Oxyhemoglobin Carboxyhemoglobin Methemoglobin Reduced Hemoglobin Total Hemoglobin O2 Delivery Device O2 Liters/Min Minute Volume Vent Rate Vent Mode FiO2 Tidal Volume PEEP Peak Inspir Pressure Pressure Support Sodium Potassium Chloride Carbon Dioxide Anion Gap BUN Creatinine Estim Creat Clear Calc Estimated GFR Glucose POC Capillary Glucose 173 H Calcium Phosphorus Magnesium Total Bilirubin AST ALT Alkaline Phosphatase Total Protein Albumin Triglycerides 138 Random Vancomycin Hep B Core Total Ab Non-reactive 09/27/24 09/27/24 09/27/24 09:09 12:19 16:33 WBC RBC Hgb Hct MCV MCH MCHC RDW Plt Count MPV Immature Gran % (Auto) Neut % (Auto) Lymph % (Auto) [place] % (Auto) Eos % (Auto) Baso % (Auto) Lymph # (Auto) [place] # (Auto) Eos # (Auto) Baso # (Auto) Abs Immat Gran (auto) Absolute Neuts (auto) Absolute Nucleated RBC Total Counted Neutrophils % (Manual) Band Neutrophils % Lymphocytes % (Manual) Monocytes % (Manual) Nucleated RBC % Abs Neuts (Manual) Abs Lymphs (Manual) Abs Monocytes (Manual) Platelet Estimate Hypochromasia Anisocytosis Target Cells Schistocytes Puncture Site ABG pH ABG pCO2 ABG pO2 ABG PO2/FiO2 Ratio ABG HCO3 ABG O2 Saturation ABG O2 Content ABG Base Excess A-a Gradient Oxyhemoglobin Carboxyhemoglobin Methemoglobin Reduced Hemoglobin Total Hemoglobin O2 Delivery Device O2 Liters/Min Minute Volume Vent Rate Vent Mode FiO2 Tidal Volume PEEP Peak Inspir Pressure Pressure Support Sodium Potassium Chloride Carbon Dioxide Anion Gap BUN Creatinine Estim Creat Clear Calc Estimated GFR Glucose POC Capillary Glucose 168 H 169 H Calcium Phosphorus Magnesium Total Bilirubin AST ALT Alkaline Phosphatase Total Protein Albumin Triglycerides Random Vancomycin 19.8 Hep B Core Total Ab 09/27/24 09/28/24 09/28/24 20:40 01:07 02:24 WBC RBC Hgb Hct MCV MCH MCHC RDW Plt Count MPV Immature Gran % (Auto) Neut % (Auto) Lymph % (Auto) [place] % (Auto) Eos % (Auto) Baso % (Auto) Lymph # (Auto) [place] # (Auto) Eos # (Auto) Baso # (Auto) Abs Immat Gran (auto) Absolute Neuts (auto) Absolute Nucleated RBC Total Counted Neutrophils % (Manual) Band Neutrophils % Lymphocytes % (Manual) Monocytes % (Manual) Nucleated RBC % Abs Neuts (Manual) Abs Lymphs (Manual) Abs Monocytes (Manual) Platelet Estimate Hypochromasia Anisocytosis Target Cells Schistocytes Puncture Site ABG pH ABG pCO2 ABG pO2 ABG PO2/FiO2 Ratio ABG HCO3 ABG O2 Saturation ABG O2 Content ABG Base Excess A-a Gradient Oxyhemoglobin Carboxyhemoglobin Methemoglobin Reduced Hemoglobin Total Hemoglobin O2 Delivery Device O2 Liters/Min Minute Volume Vent Rate Vent Mode FiO2 Tidal Volume PEEP Peak Inspir Pressure Pressure Support Sodium Potassium Chloride Carbon Dioxide Anion Gap BUN Creatinine Estim Creat Clear Calc Estimated GFR Glucose POC Capillary Glucose 315 H 417 H 357 H Calcium Phosphorus Magnesium Total Bilirubin AST ALT Alkaline Phosphatase Total Protein Albumin Triglycerides Random Vancomycin Hep B Core Total Ab 09/28/24 09/28/24 09/28/24 03:27 04:42 05:31 WBC 36.6 H RBC 3.09 L Hgb 7.7 L Hct 24.3 L MCV 78.6 L MCH 24.9 L MCHC 31.7 L RDW 19.5 H Plt Count 169 MPV 12.3 H Immature Gran % (Auto) Not Reportable Neut % (Auto) Not Reportable Lymph % (Auto) Not Reportable [place] % (Auto) Not Reportable Eos % (Auto) Not Reportable Baso % (Auto) Not Reportable Lymph # (Auto) Not Reportable [place] # (Auto) Not Reportable Eos # (Auto) Not Reportable Baso # (Auto) Not Reportable Abs Immat Gran (auto) Not Reportable Absolute Neuts (auto) Not Reportable Absolute Nucleated RBC Not Reportable Total Counted 100 Neutrophils % (Manual) 80 H Band Neutrophils % 11 H Lymphocytes % (Manual) 6 L Monocytes % (Manual) 3 Nucleated RBC % Not Reportable Abs Neuts (Manual) 33.30 H Abs Lymphs (Manual) 2.19 Abs Monocytes (Manual) 1.09 H Platelet Estimate Adequate Hypochromasia 2+ Anisocytosis 2+ Target Cells 1+ Schistocytes None seen Puncture Site Right radial ABG pH 7.256 L* ABG pCO2 54.6 H ABG pO2 117.5 H ABG PO2/FiO2 Ratio 1.47 ABG HCO3 23.7 ABG O2 Saturation 97.6 ABG O2 Content 11.7 L ABG Base Excess -3.4 A-a Gradient 395.6 Oxyhemoglobin 96.7 Carboxyhemoglobin 1.4 Methemoglobin 0.3 Reduced Hemoglobin 1.6 Total Hemoglobin 8.4 L O2 Delivery Device Ventilator O2 Liters/Min Not Reportable Minute Volume Not Reportable Vent Rate 28 Vent Mode Cmv FiO2 80 Tidal Volume 340 PEEP 12 Peak Inspir Pressure Not Reportable Pressure Support Not Reportable Sodium 134 L Potassium 4.5 Chloride 99 Carbon Dioxide 23 Anion Gap 12 BUN 71 H D Creatinine 2.88 H Estim Creat Clear Calc 22 Estimated GFR 18 L Glucose 401 H POC Capillary Glucose 370 H 374 H Calcium 8.7 Phosphorus 4.2 Magnesium 2.3 Total Bilirubin 0.9 AST 55 H ALT 115 H Alkaline Phosphatase 524 H Total Protein 6.0 L Albumin 2.6 L Triglycerides Random Vancomycin Hep B Core Total Ab 09/28/24 05:33 WBC RBC Hgb Hct MCV MCH MCHC RDW Plt Count MPV Immature Gran % (Auto) Neut % (Auto) Lymph % (Auto) [place] % (Auto) Eos % (Auto) Baso % (Auto) Lymph # (Auto) [place] # (Auto) Eos # (Auto) Baso # (Auto) Abs Immat Gran (auto) Absolute Neuts (auto) Absolute Nucleated RBC Total Counted Neutrophils % (Manual) Band Neutrophils % Lymphocytes % (Manual) Monocytes % (Manual) Nucleated RBC % Abs Neuts (Manual) Abs Lymphs (Manual) Abs Monocytes (Manual) Platelet Estimate Hypochromasia Anisocytosis Target Cells Schistocytes Puncture Site ABG pH ABG pCO2 ABG pO2 ABG PO2/FiO2 Ratio ABG HCO3 ABG O2 Saturation ABG O2 Content ABG Base Excess A-a Gradient Oxyhemoglobin Carboxyhemoglobin Methemoglobin Reduced Hemoglobin Total Hemoglobin O2 Delivery Device O2 Liters/Min Minute Volume Vent Rate Vent Mode FiO2 Tidal Volume PEEP Peak Inspir Pressure Pressure Support Sodium Potassium Chloride Carbon Dioxide Anion Gap BUN Creatinine Estim Creat Clear Calc Estimated GFR Glucose POC Capillary Glucose 393 H Calcium Phosphorus Magnesium Total Bilirubin AST ALT Alkaline Phosphatase Total Protein Albumin Triglycerides Random Vancomycin Hep B Core Total Ab Quality VTE Prophylaxis VTE prophylaxis: pharmacologic ordered
[2024-09-28] MEDS: INSULIN HUMAN REGULAR (*BKC) 100 UNITS in SODIUM CHLORIDE 0.9% IV 99 ML 6.5 UNITS IV CONT (08:30)
[2024-09-28 08:32] LABS: Glucose Point of Care 406 mg/dl (65-105)
[2024-09-28] MEDS: MINERAL OIL/WHITE PETROLATUM OINTMENT 1 APPLIC EACH EYE ×2 (09:00→21:12)
--- NOTE | 2024-09-28 09:30 | PC.NURSE ---
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 shop router wanting Levo titrated up during dialysis to maintain a MAP above 60 [address] Uriosteguily aware and agreeable.
[2024-09-28 09:50] LABS: Glucose Point of Care 341 mg/dl (65-105)
[2024-09-28 10:38] LABS: Glucose Point of Care 324 mg/dl (65-105)
[2024-09-28] MEDS: ALBUMIN HUMAN 25% 12.5 GM/50ML 50 ML IVPB (10:41)
--- NOTE | 2024-09-28 11:12 | PCFNICU ---
ICU Rounding Note: Pt current nutrition is Nepro at 40ml/hr. Last recorded weight is 67.3 kg, up from 59.9 kg on admit. Bowel Motility: +BM reported 09/25 Labs Reviewed:Glu 401, Alb 2.6, Hct 24.3, Hgb 7.7,BUN 71, Cr 2.88, GFR 18 Meds Noted:Propofol 35 pzvt=858 kcal, Versed, Lantus, regular insulin. Skin: WNL Additional Notes: Patient current with mechanical vent and proned. Tube feedings are being tolerated of Nepro at 40 ml/hr with water flush of 30 ml q 4 hours. Propofol is adding an additional 385 kcals. We will continue to monitor propofol infusion for any tube feeding rate change recommendations. Following daily in ICU rounds. Will monitor weight, labs, skin, diet order, meds every Wednesday and Wednesday.
--- NOTE | 2024-09-28 11:35 | WPDPN ---
Progress Note: A&P Assessment and Plan (1) Spontaneous pneumothorax: Code(s): J93.83 - Other pneumothorax Status: Acute Assessment and Plan: Left chest tube remains in place in good position. No recurrent left pneumothorax. Continue acute critical care management by credit report checker. The the chest tube in until patient is off of positive pressure ventilation. We will follow peripherally. Subjective Date/time seen: 09/28/24 11:35 Interval history: Patient still sedated and intubated in the intensive care unit. She is now prone on the ventilator. Chest x-ray shows no evidence of recurrent left pneumothorax. Left chest tube in place without change of position with the patient being turned prone. White blood count is still markedly elevated 30,000. Oxygenation is marginally improved. She is now getting daily hemodialysis. Exam Resp: Other: Equal breath sounds bilaterally. Bilateral breath sounds coarse. Left chest tube in place. Dressing is dry. Serous drainage from the chest tube. No blood in the chest tube output. Objective Data Vital Signs Vital Signs: Vital Signs - 24 hr 09/27/24 11:46 09/27/24 12:00 09/27/24 12:00 Temperature Pulse Rate 120 H 123 H 120 H Respiratory Rate 28 H 28 H Blood Pressure Pulse Oximetry 94 Oxygen Delivery Mechanical Ventilation Oxygen Flow Rate Fraction of Inspired Oxygen 100 09/27/24 12:00 09/27/24 12:00 09/27/24 12:00 Temperature 37.8 C H Pulse Rate 125 H 123 H 123 H Respiratory Rate 28 H 28 H 28 H Blood Pressure 118/64 118/64 Pulse Oximetry 93 Oxygen Delivery Oxygen Flow Rate Fraction of Inspired Oxygen 09/27/24 12:00 09/27/24 12:00 09/27/24 12:00 Temperature Pulse Rate 124 H Respiratory Rate Blood Pressure Pulse Oximetry 93 Oxygen Delivery Mechanical Ventilation Oxygen Flow Rate Fraction of Inspired Oxygen 80 100 09/27/24 12:10 09/27/24 12:30 09/27/24 12:30 Temperature 37.8 C H Pulse Rate 124 H 122 H 123 H Respiratory Rate 28 H 28 H 28 H Blood Pressure 112/59 L Pulse Oximetry 93 Oxygen Delivery Oxygen Flow Rate Fraction of Inspired Oxygen 09/27/24 12:42 09/27/24 12:52 09/27/24 12:52 Temperature Pulse Rate 120 H 120 H Respiratory Rate 28 H Blood Pressure 102/56 L Pulse Oximetry Oxygen Delivery Oxygen Flow Rate Fraction of Inspired Oxygen 100 09/27/24 13:00 09/27/24 13:00 09/27/24 13:15 Temperature Pulse Rate 121 H 121 H 126 H Respiratory Rate 28 H Blood Pressure 104/54 L 95/57 L Pulse Oximetry Oxygen Delivery Oxygen Flow Rate Fraction of Inspired Oxygen 09/27/24 13:30 09/27/24 13:45 09/27/24 13:47 Temperature Pulse Rate 126 H 126 H 126 H Respiratory Rate Blood Pressure 89/57 L 90/54 L 90/54 L Pulse Oximetry Oxygen Delivery Oxygen Flow Rate Fraction of Inspired Oxygen 09/27/24 13:48 09/27/24 13:49 09/27/24 13:49 Temperature Pulse Rate 126 H 124 H 124 H Respiratory Rate 28 H 28 H Blood Pressure Pulse Oximetry 93 Oxygen Delivery Mechanical Ventilation Oxygen Flow Rate Fraction of Inspired Oxygen 100 09/27/24 14:00 09/27/24 14:00 09/27/24 14:00 Temperature Pulse Rate 122 H 123 H 122 H Respiratory Rate 28 H 28 H 28 H Blood Pressure 91/58 L Pulse Oximetry Oxygen Delivery Oxygen Flow Rate Fraction of Inspired Oxygen 09/27/24 14:00 09/27/24 14:00 09/27/24 14:00 Temperature Pulse Rate 122 H 123 H 123 H Respiratory Rate Blood Pressure 91/58 L 83/61 L Pulse Oximetry Oxygen Delivery Oxygen Flow Rate Fraction of Inspired Oxygen 09/27/24 14:00 09/27/24 14:06 09/27/24 14:10 Temperature 37.9 C H Pulse Rate 123 H 122 H 121 H Respiratory Rate 28 H 28 H Blood Pressure 83/61 L 91/58 L Pulse Oximetry 93 Oxygen Delivery Oxygen Flow Rate Fraction of Inspired Oxygen 09/27/24 14:15 09/27/24 14:30 09/27/24 14:45 Temperature Pulse Rate 122 H 122 H 122 H Respiratory Rate Blood Pressure 85/56 L 94/58 L 90/52 L Pulse Oximetry Oxygen Delivery Oxygen Flow Rate Fraction of Inspired Oxygen 09/27/24 15:00 09/27/24 15:10 09/27/24 15:15 Temperature Pulse Rate 122 H 120 H 118 H Respiratory Rate Blood Pressure 84/57 L 85/57 L 87/55 L Pulse Oximetry Oxygen Delivery Oxygen Flow Rate Fraction of Inspired Oxygen 09/27/24 15:30 09/27/24 15:45 09/27/24 16:00 Temperature Pulse Rate 116 H 113 H 113 H Respiratory Rate Blood Pressure 87/57 L 93/58 L 87/60 L Pulse Oximetry Oxygen Delivery Oxygen Flow Rate Fraction of Inspired Oxygen 09/27/24 16:00 09/27/24 16:00 09/27/24 16:00 Temperature 37.4 C Pulse Rate 114 H 114 H 114 H Respiratory Rate 28 H 28 H 28 H Blood Pressure 87/60 L 87/60 L Pulse Oximetry 99 Oxygen Delivery Oxygen Flow Rate Fraction of Inspired Oxygen 09/27/24 16:00 09/27/24 16:00 09/27/24 16:00 Temperature Pulse Rate 114 H 114 H Respiratory Rate 28 H Blood Pressure 87/60 L Pulse Oximetry 99 Oxygen Delivery Mechanical Ventilation Oxygen Flow Rate Fraction of Inspired Oxygen 100 09/27/24 16:00 09/27/24 16:00 09/27/24 16:15 Temperature Pulse Rate 113 H 113 H Respiratory Rate Blood Pressure 83/55 L Pulse Oximetry Oxygen Delivery Oxygen Flow Rate Fraction of Inspired Oxygen 100 09/27/24 16:23 09/27/24 16:30 09/27/24 16:52 Temperature 37.3 C Pulse Rate 114 H 111 H 109 H Respiratory Rate 28 H 28 H Blood Pressure 83/56 L 92/52 L Pulse Oximetry 99 Oxygen Delivery Oxygen Flow Rate Fraction of Inspired Oxygen 09/27/24 16:52 09/27/24 17:37 09/27/24 17:37 Temperature Pulse Rate 109 H 105 H 106 H Respiratory Rate 28 H 28 H 28 H Blood Pressure Pulse Oximetry Oxygen Delivery Oxygen Flow Rate Fraction of Inspired Oxygen 09/27/24 18:00 09/27/24 18:00 09/27/24 18:00 Temperature Pulse Rate 105 H 105 H 105 H Respiratory Rate 28 H 28 H 28 H Blood Pressure 89/51 L Pulse Oximetry Oxygen Delivery Oxygen Flow Rate Fraction of Inspired Oxygen 09/27/24 18:00 09/27/24 18:00 09/27/24 18:00 Temperature 36.9 C Pulse Rate 105 H 105 H 105 H Respiratory Rate 28 H Blood Pressure 89/51 L 89/51 L Pulse Oximetry 100 Oxygen Delivery Oxygen Flow Rate Fraction of Inspired Oxygen 09/27/24 18:25 09/27/24 18:30 09/27/24 19:30 Temperature Pulse Rate 106 H Respiratory Rate Blood Pressure Pulse Oximetry 94 Oxygen Delivery Mechanical Ventilation Oxygen Flow Rate Fraction of Inspired Oxygen 100 80 80 09/27/24 19:30 09/27/24 19:55 09/27/24 20:00 Temperature Pulse Rate 106 H 108 H 108 H Respiratory Rate 28 H 28 H 28 H Blood Pressure 109/64 Pulse Oximetry Oxygen Delivery Oxygen Flow Rate Fraction of Inspired Oxygen 09/27/24 20:00 09/27/24 20:00 09/27/24 20:00 Temperature 36.8 C Pulse Rate 108 H 108 H Respiratory Rate 28 H 28 H Blood Pressure 109/64 Pulse Oximetry 98 98 Oxygen Delivery Mechanical Ventilation Oxygen Flow Rate 30 Fraction of Inspired Oxygen 80 80 09/27/24 20:00 09/27/24 20:00 09/27/24 20:00 Temperature Pulse Rate 108 H 108 H 108 H Respiratory Rate 28 H 28 H Blood Pressure 109/64 Pulse Oximetry Oxygen Delivery Oxygen Flow Rate Fraction of Inspired Oxygen 09/27/24 20:00 09/27/24 21:00 09/27/24 21:00 Temperature Pulse Rate 107 H 110 H 110 H Respiratory Rate 28 H 28 H Blood Pressure 105/54 L 105/54 L Pulse Oximetry Oxygen Delivery Oxygen Flow Rate Fraction of Inspired Oxygen 09/27/24 21:50 09/27/24 22:00 09/27/24 22:00 Temperature 36.8 C Pulse Rate 111 H 110 H 110 H Respiratory Rate 28 H 28 H 28 H Blood Pressure 105/55 L 109/56 L Pulse Oximetry 93 Oxygen Delivery Oxygen Flow Rate Fraction of Inspired Oxygen 09/27/24 22:00 09/27/24 22:00 09/27/24 22:00 Temperature Pulse Rate 110 H 110 H 110 H Respiratory Rate 28 H 28 H Blood Pressure 109/56 L 109/56 L Pulse Oximetry Oxygen Delivery Oxygen Flow Rate Fraction of Inspired Oxygen 09/27/24 22:00 09/27/24 22:44 09/28/24 00:00 Temperature Pulse Rate 110 H 108 H 107 H Respiratory Rate 28 H Blood Pressure Pulse Oximetry 94 Oxygen Delivery Mechanical Ventilation Oxygen Flow Rate Fraction of Inspired Oxygen 80 09/28/24 00:00 09/28/24 00:00 09/28/24 00:00 Temperature Pulse Rate 107 H 107 H Respiratory Rate 28 H Blood Pressure 105/54 L Pulse Oximetry 95 Oxygen Delivery Mechanical Ventilation Oxygen Flow Rate 30 Fraction of Inspired Oxygen 80 80 09/28/24 00:00 09/28/24 00:00 09/28/24 00:00 Temperature 36.8 C Pulse Rate 107 H 106 H 107 H Respiratory Rate 28 H 28 H Blood Pressure 105/54 L Pulse Oximetry 95 Oxygen Delivery Oxygen Flow Rate Fraction of Inspired Oxygen 09/28/24 00:00 09/28/24 00:30 09/28/24 00:30 Temperature Pulse Rate 107 H 108 H 108 H Respiratory Rate 28 H 28 H 28 H Blood Pressure 105/54 L Pulse Oximetry Oxygen Delivery Oxygen Flow Rate Fraction of Inspired Oxygen 09/28/24 00:40 09/28/24 01:55 09/28/24 01:55 Temperature Pulse Rate 106 H 113 H 108 H Respiratory Rate 28 H Blood Pressure 100/57 L Pulse Oximetry 96 Oxygen Delivery Mechanical Ventilation Oxygen Flow Rate Fraction of Inspired Oxygen 80 09/28/24 02:00 09/28/24 02:00 09/28/24 02:00 Temperature Pulse Rate 109 H 109 H 109 H Respiratory Rate 28 H 28 H Blood Pressure 88/45 L 88/45 L 88/45 L Pulse Oximetry Oxygen Delivery Oxygen Flow Rate Fraction of Inspired Oxygen 09/28/24 02:00 09/28/24 02:00 09/28/24 02:00 Temperature Pulse Rate 109 H 109 H 109 H Respiratory Rate 28 H 28 H Blood Pressure Pulse Oximetry Oxygen Delivery Oxygen Flow Rate Fraction of Inspired Oxygen 09/28/24 02:00 09/28/24 02:16 09/28/24 04:00 Temperature 36.9 C Pulse Rate 109 H 112 H 113 H Respiratory Rate 28 H 28 H 28 H Blood Pressure 88/45 L Pulse Oximetry 96 Oxygen Delivery Oxygen Flow Rate Fraction of Inspired Oxygen 09/28/24 04:00 09/28/24 04:00 09/28/24 04:00 Temperature Pulse Rate 113 H 113 H 113 H Respiratory Rate 28 H 28 H Blood Pressure 114/59 L 114/59 L Pulse Oximetry Oxygen Delivery Oxygen Flow Rate Fraction of Inspired Oxygen 09/28/24 04:00 09/28/24 04:00 09/28/24 04:00 Temperature 36.9 C Pulse Rate 113 H 112 H 113 H Respiratory Rate 28 H 28 H Blood Pressure 114/59 L Pulse Oximetry 96 96 Oxygen Delivery Mechanical Ventilation Oxygen Flow Rate 30 Fraction of Inspired Oxygen 80 09/28/24 04:00 09/28/24 04:45 09/28/24 04:50 Temperature Pulse Rate 111 H 112 H Respiratory Rate 28 H Blood Pressure 111/67 Pulse Oximetry 96 Oxygen Delivery Mechanical Ventilation Oxygen Flow Rate Fraction of Inspired Oxygen 80 80 09/28/24 06:00 09/28/24 06:00 09/28/24 06:00 Temperature 36.9 C Pulse Rate 110 H 110 H 110 H Respiratory Rate 28 H 28 H Blood Pressure 106/58 L Pulse Oximetry 95 Oxygen Delivery Oxygen Flow Rate Fraction of Inspired Oxygen 09/28/24 06:00 09/28/24 06:00 09/28/24 06:00 Temperature Pulse Rate 110 H 110 H 110 H Respiratory Rate 28 H 28 H Blood Pressure 106/58 L 106/58 L Pulse Oximetry Oxygen Delivery Oxygen Flow Rate Fraction of Inspired Oxygen 09/28/24 06:20 09/28/24 06:20 09/28/24 07:51 Temperature Pulse Rate 108 H 108 H 108 H Respiratory Rate 28 H 28 H 28 H Blood Pressure Pulse Oximetry Oxygen Delivery Oxygen Flow Rate Fraction of Inspired Oxygen 09/28/24 08:00 09/28/24 08:00 09/28/24 08:00 Temperature Pulse Rate 108 H 108 H 109 H Respiratory Rate 28 H 28 H 28 H Blood Pressure 118/65 Pulse Oximetry Oxygen Delivery Oxygen Flow Rate Fraction of Inspired Oxygen 09/28/24 08:00 09/28/24 08:00 09/28/24 08:01 Temperature Pulse Rate 109 H 109 H 111 H Respiratory Rate 28 H Blood Pressure 118/65 Pulse Oximetry 93 Oxygen Delivery Mechanical Ventilation Oxygen Flow Rate Fraction of Inspired Oxygen 70 09/28/24 09:59 09/28/24 10:00 09/28/24 10:00 Temperature Pulse Rate 114 H 113 H 113 H Respiratory Rate 28 H 28 H Blood Pressure 118/66 118/66 Pulse Oximetry Oxygen Delivery Oxygen Flow Rate Fraction of Inspired Oxygen 09/28/24 10:00 09/28/24 10:30 09/28/24 10:31 Temperature Pulse Rate 113 H 113 H 113 H Respiratory Rate 28 H 28 H Blood Pressure 115/65 115/65 Pulse Oximetry Oxygen Delivery Oxygen Flow Rate Fraction of Inspired Oxygen 09/28/24 10:31 09/28/24 10:48 09/28/24 11:15 Temperature Pulse Rate 113 H 114 H 116 H Respiratory Rate 28 H Blood Pressure 115/65 94/52 L Pulse Oximetry 93 Oxygen Delivery Mechanical Ventilation Oxygen Flow Rate Fraction of Inspired Oxygen 70 09/28/24 11:31 Temperature Pulse Rate 118 H Respiratory Rate Blood Pressure 96/56 L Pulse Oximetry Oxygen Delivery Oxygen Flow Rate Fraction of Inspired Oxygen Intake/Output Intake/Output: Intake & Output 09/25/24 09/26/24 09/27/24 09/28/24 23:59 23:59 23:59 23:59 Intake Total 1752.6 1775.7 2092.0 1092.8 Output Total 2160 3202 1170 32 Balance -407.4 -1426.3 922.0 1060.8 Meds/Results Medications: Active Medications Generic Name Dose Route Start Last Admin Trade Name Freq PRN Reason Stop Dose Admin Acetaminophen 650 mg 09/20/24 19:03 09/21/24 11:59 Acetaminophen Elixir 325 Mg/10.15 Ml Udc PO 650 mg Q4H PRN Administration Mild Pain (1-3) or Fever Acetylcysteine 200 mg 09/27/24 08:00 09/28/24 07:51 Acetylcysteine 20% Inhal Soln 800 Mg/4 Ml Vial INHALATION 200 mg Q6HRT TOMY Administration Albuterol/Ipratropium 3 ml 09/22/24 08:26 09/28/24 07:51 Ipratropium 0.5 Mg/Albuterol Sulfate 2.5 Mg Ampul.Neb 3 Ml INHALATION 3 ml Q6HRT PRN Administration wheezing Dextrose 12.5 gm 09/20/24 03:19 Dextrose 50% 25 Gm/50 Ml Syringe IV PUSH PRN PRN Hypoglycemia Protocol Dornase Jaspreet 2.5 mg 09/27/24 08:00 09/28/24 07:50 Dornase Jaspreet Inh Soln 1 Mg/Ml 2.5 Ml Amp INHALATION 2.5 mg Q12HRT TOMY Administration Enoxaparin Sodium 30 mg 09/27/24 09:00 09/28/24 08:17 Enoxaparin 30 Mg/0.3 Ml Syringe SUB-Q 30 mg DAILY TOMY Administration Epoetin Jaspreet-epbx 10,000 units 09/28/24 18:33 Epoetin Jaspreet-Epbx 10,000 Units/Ml Vial IV PUSH 09/28/24 18:34 ONCE ONE Glucagon 1 mg 09/20/24 03:19 Glucagon For Inj 1 Mg Vial IM PRN PRN Hypoglycemia Protocol Glucose 15 gm 09/20/24 03:19 Glucose Oral Gel 15 Gm Of Glucse In 37.5 Gm Tube PO PRN PRN Hypoglycemia Protocol Dextrose 1,000 mls @ 100 mls/hr 09/20/24 03:19 Dextrose 5% 1,000 Ml IVPB PRN PRN Hypoglycemia Protocol Midazolam HCl 100 mg in 100 mls @ 3 mls/hr 09/20/24 22:10 09/28/24 10:00 Versed 100 Mg/Ns 100 Ml IV CONT 3 mg/hr .[id number] TOMY 3 mls/hr Titration Protocol 3 MG/HR Albumin Human 50 mls @ 999 mls/hr 09/26/24 12:07 09/28/24 10:41 Albutein IVPB 10/26/24 12:06 999 mls/hr Q10M PRN Administration HYPOTENSION Linezolid 600 mg in 300 mls @ 300 mls/hr 09/27/24 21:00 09/27/24 21:57 Zyvox IVPB Infused Q12HR TOMY Infusion Propofol 100 mls @ 14.574 mls/hr 09/27/24 10:15 09/28/24 10:00 Diprivan IV CONT 35 mcg/kg/min .Q6H52M TOMY 14.57 mls/hr Titration Protocol 35 MCG/KG/MIN Norepinephrine Bitartrate 8 mg in 250 mls @ 15 mls/hr 09/27/24 10:15 09/28/24 11:31 Levophed 8 Mg/D5w 250 Ml IV CONT 10 mcg/min .[id number] TOMY 18.75 mls/hr Titration Protocol 8 MCG/MIN Meropenem 1 gm in 100 mls @ 200 mls/hr 09/27/24 18:00 09/27/24 18:14 IVPB Infused Q24H TOMY Infusion Cisatracurium Besylate 200 mg/ 100 mls @ 9.369 mls/hr 09/28/24 02:05 09/28/24 10:31 Sodium Chloride IV CONT 4.5 mcg/kg/min .[id number] TOMY 9.37 mls/hr Administration Protocol 4.5 MCG/KG/MIN Insulin Human Regular 100 100 mls @ 9 mls/hr 09/28/24 08:30 09/28/24 10:34 units/ Sodium Chloride IV CONT 9 units/hr .Q11H7M TOMY 9 mls/hr Titration Protocol 9 UNITS/HR Insulin Aspart 4 - 8 units 09/21/24 08:40 09/28/24 04:43 Insulin Aspart (*Bkc) 100 Units/Ml SUB-Q 8 units Q4H TOMY Administration Protocol Insulin Glargine 40 units 09/22/24 09:00 09/27/24 09:10 Insulin Glargine (*Bkc) 100 Units/Ml SUB-Q 40 units QAM TOMY Administration Levothyroxine Sodium 100 mcg 09/21/24 06:30 09/28/24 05:25 Levothyroxine Sodium 100 Mcg Tablet FEED TUBE 100 mcg DAILY@0630 TOMY Administration Miscellaneous Information 0 each 09/29/24 00:01 Ivs In Normal Saline XX 10/29/24 00:00 CLARIFY TOMY Multi-Ingred Cream/Lotion/Oil/Oint 1 applic 09/20/24 21:00 09/27/24 20:57 Mineral Oil/White Petrolatum Ointment EACH EYE 1 applic Q12HR TOMY Administration Pantoprazole Sodium 40 mg 09/20/24 09:00 09/28/24 08:17 Pantoprazole Sodium Iv 40 Mg Vial IV PUSH 40 mg QAM TOMY Administration Sodium Chloride 10 ml 09/20/24 14:00 09/28/24 05:25 Central Line Flush IV PUSH 10 ml Q8HR TOMY Administration Sodium Chloride 20 ml 09/20/24 06:40 Central Line Flush IV PUSH PRN PRN after blood draws Radiology Results: ITS Impressions Chest CTA 09/20/24 05:30 Impression: Bilateral multifocal pneumonia, most extensively involving the lower lobes. No pulmonary embolus seen. Abdomen X-Ray 09/20/24 05:35 Impression: NG tube in satisfactory position. Abdomen Ultrasound 09/22/24 15:02 IMPRESSION: 1: Gallbladder wall thickening, nonspecific. No evidence for gallstones. 2: Fatty infiltration of the liver. Renal Ultrasound 09/22/24 15:14 IMPRESSION: 1. Normal kidneys without hydronephrosis. Chest X-Ray 09/28/24 06:02 Impression: 1: Stable extensive bilateral airspace disease. Differential diagnosis includes pneumonia, edema and/or ARDS. Labs Labs: Laboratory Results - last 24 hr 09/27/24 09/27/24 09/27/24 05:56 12:19 16:33 WBC RBC Hgb Hct MCV MCH MCHC RDW Plt Count MPV Immature Gran % (Auto) Neut % (Auto) Lymph % (Auto) Slope % (Auto) Eos % (Auto) Baso % (Auto) Lymph # (Auto) Slope # (Auto) Eos # (Auto) Baso # (Auto) Abs Immat Gran (auto) Absolute Neuts (auto) Absolute Nucleated RBC Total Counted Neutrophils % (Manual) Band Neutrophils % Lymphocytes % (Manual) Monocytes % (Manual) Nucleated RBC % Abs Neuts (Manual) Abs Lymphs (Manual) Abs Monocytes (Manual) Platelet Estimate Hypochromasia Anisocytosis Target Cells Schistocytes Puncture Site ABG pH ABG pCO2 ABG pO2 ABG PO2/FiO2 Ratio ABG HCO3 ABG O2 Saturation ABG O2 Content ABG Base Excess A-a Gradient Oxyhemoglobin Carboxyhemoglobin Methemoglobin Reduced Hemoglobin Total Hemoglobin O2 Delivery Device O2 Liters/Min Minute Volume Vent Rate Vent Mode FiO2 Tidal Volume PEEP Peak Inspir Pressure Pressure Support Sodium Potassium Chloride Carbon Dioxide Anion Gap BUN Creatinine Estim Creat Clear Calc Estimated GFR Glucose POC Capillary Glucose 168 H 169 H Calcium Phosphorus Magnesium Total Bilirubin AST ALT Alkaline Phosphatase Total Protein Albumin Hep B Core Total Ab Non-reactive 09/27/24 09/28/24 09/28/24 20:40 01:07 02:24 WBC RBC Hgb Hct MCV MCH MCHC RDW Plt Count MPV Immature Gran % (Auto) Neut % (Auto) Lymph % (Auto) Slope % (Auto) Eos % (Auto) Baso % (Auto) Lymph # (Auto) Slope # (Auto) Eos # (Auto) Baso # (Auto) Abs Immat Gran (auto) Absolute Neuts (auto) Absolute Nucleated RBC Total Counted Neutrophils % (Manual) Band Neutrophils % Lymphocytes % (Manual) Monocytes % (Manual) Nucleated RBC % Abs Neuts (Manual) Abs Lymphs (Manual) Abs Monocytes (Manual) Platelet Estimate Hypochromasia Anisocytosis Target Cells Schistocytes Puncture Site ABG pH ABG pCO2 ABG pO2 ABG PO2/FiO2 Ratio ABG HCO3 ABG O2 Saturation ABG O2 Content ABG Base Excess A-a Gradient Oxyhemoglobin Carboxyhemoglobin Methemoglobin Reduced Hemoglobin Total Hemoglobin O2 Delivery Device O2 Liters/Min Minute Volume Vent Rate Vent Mode FiO2 Tidal Volume PEEP Peak Inspir Pressure Pressure Support Sodium Potassium Chloride Carbon Dioxide Anion Gap BUN Creatinine Estim Creat Clear Calc Estimated GFR Glucose POC Capillary Glucose 315 H 417 H 357 H Calcium Phosphorus Magnesium Total Bilirubin AST ALT Alkaline Phosphatase Total Protein Albumin Hep B Core Total Ab 09/28/24 09/28/24 09/28/24 03:27 04:42 05:31 WBC 36.6 H RBC 3.09 L Hgb 7.7 L Hct 24.3 L MCV 78.6 L MCH 24.9 L MCHC 31.7 L RDW 19.5 H Plt Count 169 MPV 12.3 H Immature Gran % (Auto) Not Reportable Neut % (Auto) Not Reportable Lymph % (Auto) Not Reportable Slope % (Auto) Not Reportable Eos % (Auto) Not Reportable Baso % (Auto) Not Reportable Lymph # (Auto) Not Reportable Slope # (Auto) Not Reportable Eos # (Auto) Not Reportable Baso # (Auto) Not Reportable Abs Immat Gran (auto) Not Reportable Absolute Neuts (auto) Not Reportable Absolute Nucleated RBC Not Reportable Total Counted 100 Neutrophils % (Manual) 80 H Band Neutrophils % 11 H Lymphocytes % (Manual) 6 L Monocytes % (Manual) 3 Nucleated RBC % Not Reportable Abs Neuts (Manual) 33.30 H Abs Lymphs (Manual) 2.19 Abs Monocytes (Manual) 1.09 H Platelet Estimate Adequate Hypochromasia 2+ Anisocytosis 2+ Target Cells 1+ Schistocytes None seen Puncture Site Right radial ABG pH 7.256 L* ABG pCO2 54.6 H ABG pO2 117.5 H ABG PO2/FiO2 Ratio 1.47 ABG HCO3 23.7 ABG O2 Saturation 97.6 ABG O2 Content 11.7 L ABG Base Excess -3.4 A-a Gradient 395.6 Oxyhemoglobin 96.7 Carboxyhemoglobin 1.4 Methemoglobin 0.3 Reduced Hemoglobin 1.6 Total Hemoglobin 8.4 L O2 Delivery Device Ventilator O2 Liters/Min Not Reportable Minute Volume Not Reportable Vent Rate 28 Vent Mode Cmv FiO2 80 Tidal Volume 340 PEEP 12 Peak Inspir Pressure Not Reportable Pressure Support Not Reportable Sodium 134 L Potassium 4.5 Chloride 99 Carbon Dioxide 23 Anion Gap 12 BUN 71 H D Creatinine 2.88 H Estim Creat Clear Calc 22 Estimated GFR 18 L Glucose 401 H POC Capillary Glucose 370 H 374 H Calcium 8.7 Phosphorus 4.2 Magnesium 2.3 Total Bilirubin 0.9 AST 55 H ALT 115 H Alkaline Phosphatase 524 H Total Protein 6.0 L Albumin 2.6 L Hep B Core Total Ab 09/28/24 09/28/24 09/28/24 05:33 07:46 09:47 WBC RBC Hgb Hct MCV MCH MCHC RDW Plt Count MPV Immature Gran % (Auto) Neut % (Auto) Lymph % (Auto) Slope % (Auto) Eos % (Auto) Baso % (Auto) Lymph # (Auto) Slope # (Auto) Eos # (Auto) Baso # (Auto) Abs Immat Gran (auto) Absolute Neuts (auto) Absolute Nucleated RBC Total Counted Neutrophils % (Manual) Band Neutrophils % Lymphocytes % (Manual) Monocytes % (Manual) Nucleated RBC % Abs Neuts (Manual) Abs Lymphs (Manual) Abs Monocytes (Manual) Platelet Estimate Hypochromasia Anisocytosis Target Cells Schistocytes Puncture Site ABG pH ABG pCO2 ABG pO2 ABG PO2/FiO2 Ratio ABG HCO3 ABG O2 Saturation ABG O2 Content ABG Base Excess A-a Gradient Oxyhemoglobin Carboxyhemoglobin Methemoglobin Reduced Hemoglobin Total Hemoglobin O2 Delivery Device O2 Liters/Min Minute Volume Vent Rate Vent Mode FiO2 Tidal Volume PEEP Peak Inspir Pressure Pressure Support Sodium Potassium Chloride Carbon Dioxide Anion Gap BUN Creatinine Estim Creat Clear Calc Estimated GFR Glucose POC Capillary Glucose 393 H 406 H 341 H Calcium Phosphorus Magnesium Total Bilirubin AST ALT Alkaline Phosphatase Total Protein Albumin Hep B Core Total Ab 09/28/24 10:34 WBC RBC Hgb Hct MCV MCH MCHC RDW Plt Count MPV Immature Gran % (Auto) Neut % (Auto) Lymph % (Auto) Slope % (Auto) Eos % (Auto) Baso % (Auto) Lymph # (Auto) Slope # (Auto) Eos # (Auto) Baso # (Auto) Abs Immat Gran (auto) Absolute Neuts (auto) Absolute Nucleated RBC Total Counted Neutrophils % (Manual) Band Neutrophils % Lymphocytes % (Manual) Monocytes % (Manual) Nucleated RBC % Abs Neuts (Manual) Abs Lymphs (Manual) Abs Monocytes (Manual) Platelet Estimate Hypochromasia Anisocytosis Target Cells Schistocytes Puncture Site ABG pH ABG pCO2 ABG pO2 ABG PO2/FiO2 Ratio ABG HCO3 ABG O2 Saturation ABG O2 Content ABG Base Excess A-a Gradient Oxyhemoglobin Carboxyhemoglobin Methemoglobin Reduced Hemoglobin Total Hemoglobin O2 Delivery Device O2 Liters/Min Minute Volume Vent Rate Vent Mode FiO2 Tidal Volume PEEP Peak Inspir Pressure Pressure Support Sodium Potassium Chloride Carbon Dioxide Anion Gap BUN Creatinine Estim Creat Clear Calc Estimated GFR Glucose POC Capillary Glucose 324 H Calcium Phosphorus Magnesium Total Bilirubin AST ALT Alkaline Phosphatase Total Protein Albumin Hep B Core Total Ab
--- NOTE | 2024-09-28 11:39 | WPDCN ---
HPI Data of Consult Date/Time: 09/27/24 Requesting Physician: Annabelle Carrizales DO Primary Care Provider: SERVICE ASSISTANT PHYSICIAN Consult Narrative Reason for consult: Sacral decubitus ulcer Narrative: Madeleine Mendoza is a 39 year old female [facility] Past Medical History Medical History Diabetic ketoacidosis Hypothyroidism Latent autoimmune diabetes in adults, managed as type 1 (2020) 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), managed as type 1 Raynauds disease Viramontes syndrome Low vitamin B12 level Menorrhagia Anemia, unspecified Surgical History Surgical History History of tubal ligation Family History Family History Grandparent ALS (amyotrophic lateral sclerosis) Sibling Diabetes mellitus Father Hypertension Cerebrovascular accident Acute myocardial infarction Social History Social History Smoking packs per day: 0.5 Smoking cigarettes per day: 10.0 Years smoked: 20 Smoking pack-years: 10.00 Smoking status: Smoker, status unknown Tobacco type: cigarettes Second hand tobacco smoke exposure: No Alcohol intake: unknown Substance use: unknown Substance use type: unknown Do You Feel Safe in your Home?: Yes Lack of Transportation: No Lack of Food: Never True Current Housing: I Have Housing Concerned About Future Housing: No Difficulty Paying Gas/Electric Bills: No Difficulty Paying for Meds: No Currently Unemployed: No Education: Decline to Answer Difficulty w/ Childcare or Family Care: No Additional living arrangements comments: . Has 2 sons. 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. Spiritual care concerns: No Meds Home Medications and Allergies Home Medications ?Medication ?Instructions ?Recorded ?Confirmed ?Type blood-glucose meter,continuous #1 ea 02/11/23 08/06/24 Rx (Dexcom G6 Pipe Line Walker) blood-glucose sensor (Dexcom G6 #9 ea 02/11/23 08/06/24 Rx Sensor device) glucagon 1 mg/0.2 mL subcutaneous 1 mg (0.2 mL) subcut ONCE #0.4 mL 02/11/23 09/20/24 Rx auto-injector (Gvoke HypoPen 2-Pack) insulin pump cart,automated,BT #45 ea 02/11/23 08/06/24 Rx (Omnipod 5 G6 Pods (Gen 5) subcutaneous cartridge) insulin pump cartridge,automated #1 ea 02/11/23 08/06/24 Rx dose,BT with controller subcutaneous (Omnipod 5 G6 Intro Kit (Gen 5) subcutaneous cartridge with controller) insulin lispro 100 unit/mL 90 unit (0.9 mL) subcut DAILY #10 03/31/24 09/20/24 Rx subcutaneous solution mL insulin lispro 100 unit/mL 90 unit (0.9 mL) subcut DAILY #10 04/25/24 09/20/24 Rx subcutaneous solution mL levothyroxine 100 mcg tablet 100 mcg PO QAM 08/06/24 09/20/24 History Allergies Allergy/AdvReac Type Severity Reaction Status Date / Time lactose AdvReac Diarrhea Verified 08/06/24 10:56 Vital Signs Vital Signs - 24 hr 09/27/24 11:46 09/27/24 12:00 09/27/24 12:00 Temperature Pulse Rate 120 H 123 H 120 H Respiratory Rate 28 H 28 H Blood Pressure Pulse Oximetry 94 Oxygen Delivery Mechanical Ventilation Oxygen Flow Rate Fraction of Inspired Oxygen 100 09/27/24 12:00 09/27/24 12:00 09/27/24 12:00 Temperature 37.8 C H Pulse Rate 125 H 123 H 123 H Respiratory Rate 28 H 28 H 28 H Blood Pressure 118/64 118/64 Pulse Oximetry 93 Oxygen Delivery Oxygen Flow Rate Fraction of Inspired Oxygen 09/27/24 12:00 09/27/24 12:00 09/27/24 12:00 Temperature Pulse Rate 124 H Respiratory Rate Blood Pressure Pulse Oximetry 93 Oxygen Delivery Mechanical Ventilation Oxygen Flow Rate Fraction of Inspired Oxygen 80 100 09/27/24 12:10 09/27/24 12:30 09/27/24 12:30 Temperature 37.8 C H Pulse Rate 124 H 122 H 123 H Respiratory Rate 28 H 28 H 28 H Blood Pressure 112/59 L Pulse Oximetry 93 Oxygen Delivery Oxygen Flow Rate Fraction of Inspired Oxygen 09/27/24 12:42 09/27/24 12:52 09/27/24 12:52 Temperature Pulse Rate 120 H 120 H Respiratory Rate 28 H Blood Pressure 102/56 L Pulse Oximetry Oxygen Delivery Oxygen Flow Rate Fraction of Inspired Oxygen 100 09/27/24 13:00 09/27/24 13:00 09/27/24 13:15 Temperature Pulse Rate 121 H 121 H 126 H Respiratory Rate 28 H Blood Pressure 104/54 L 95/57 L Pulse Oximetry Oxygen Delivery Oxygen Flow Rate Fraction of Inspired Oxygen 09/27/24 13:30 09/27/24 13:45 09/27/24 13:47 Temperature Pulse Rate 126 H 126 H 126 H Respiratory Rate Blood Pressure 89/57 L 90/54 L 90/54 L Pulse Oximetry Oxygen Delivery Oxygen Flow Rate Fraction of Inspired Oxygen 09/27/24 13:48 09/27/24 13:49 09/27/24 13:49 Temperature Pulse Rate 126 H 124 H 124 H Respiratory Rate 28 H 28 H Blood Pressure Pulse Oximetry 93 Oxygen Delivery Mechanical Ventilation Oxygen Flow Rate Fraction of Inspired Oxygen 100 09/27/24 14:00 09/27/24 14:00 09/27/24 14:00 Temperature Pulse Rate 122 H 123 H 122 H Respiratory Rate 28 H 28 H 28 H Blood Pressure 91/58 L Pulse Oximetry Oxygen Delivery Oxygen Flow Rate Fraction of Inspired Oxygen 09/27/24 14:00 09/27/24 14:00 09/27/24 14:00 Temperature Pulse Rate 122 H 123 H 123 H Respiratory Rate Blood Pressure 91/58 L 83/61 L Pulse Oximetry Oxygen Delivery Oxygen Flow Rate Fraction of Inspired Oxygen 09/27/24 14:00 09/27/24 14:06 09/27/24 14:10 Temperature 37.9 C H Pulse Rate 123 H 122 H 121 H Respiratory Rate 28 H 28 H Blood Pressure 83/61 L 91/58 L Pulse Oximetry 93 Oxygen Delivery Oxygen Flow Rate Fraction of Inspired Oxygen 09/27/24 14:15 09/27/24 14:30 09/27/24 14:45 Temperature Pulse Rate 122 H 122 H 122 H Respiratory Rate Blood Pressure 85/56 L 94/58 L 90/52 L Pulse Oximetry Oxygen Delivery Oxygen Flow Rate Fraction of Inspired Oxygen 09/27/24 15:00 09/27/24 15:10 09/27/24 15:15 Temperature Pulse Rate 122 H 120 H 118 H Respiratory Rate Blood Pressure 84/57 L 85/57 L 87/55 L Pulse Oximetry Oxygen Delivery Oxygen Flow Rate Fraction of Inspired Oxygen 09/27/24 15:30 09/27/24 15:45 09/27/24 16:00 Temperature Pulse Rate 116 H 113 H 113 H Respiratory Rate Blood Pressure 87/57 L 93/58 L 87/60 L Pulse Oximetry Oxygen Delivery Oxygen Flow Rate Fraction of Inspired Oxygen 09/27/24 16:00 09/27/24 16:00 09/27/24 16:00 Temperature 37.4 C Pulse Rate 114 H 114 H 114 H Respiratory Rate 28 H 28 H 28 H Blood Pressure 87/60 L 87/60 L Pulse Oximetry 99 Oxygen Delivery Oxygen Flow Rate Fraction of Inspired Oxygen 09/27/24 16:00 09/27/24 16:00 09/27/24 16:00 Temperature Pulse Rate 114 H 114 H Respiratory Rate 28 H Blood Pressure 87/60 L Pulse Oximetry 99 Oxygen Delivery Mechanical Ventilation Oxygen Flow Rate Fraction of Inspired Oxygen 100 09/27/24 16:00 09/27/24 16:00 09/27/24 16:15 Temperature Pulse Rate 113 H 113 H Respiratory Rate Blood Pressure 83/55 L Pulse Oximetry Oxygen Delivery Oxygen Flow Rate Fraction of Inspired Oxygen 100 09/27/24 16:23 09/27/24 16:30 09/27/24 16:52 Temperature 37.3 C Pulse Rate 114 H 111 H 109 H Respiratory Rate 28 H 28 H Blood Pressure 83/56 L 92/52 L Pulse Oximetry 99 Oxygen Delivery Oxygen Flow Rate Fraction of Inspired Oxygen 09/27/24 16:52 09/27/24 17:37 09/27/24 17:37 Temperature Pulse Rate 109 H 105 H 106 H Respiratory Rate 28 H 28 H 28 H Blood Pressure Pulse Oximetry Oxygen Delivery Oxygen Flow Rate Fraction of Inspired Oxygen 09/27/24 18:00 09/27/24 18:00 09/27/24 18:00 Temperature Pulse Rate 105 H 105 H 105 H Respiratory Rate 28 H 28 H 28 H Blood Pressure 89/51 L Pulse Oximetry Oxygen Delivery Oxygen Flow Rate Fraction of Inspired Oxygen 09/27/24 18:00 09/27/24 18:00 09/27/24 18:00 Temperature 36.9 C Pulse Rate 105 H 105 H 105 H Respiratory Rate 28 H Blood Pressure 89/51 L 89/51 L Pulse Oximetry 100 Oxygen Delivery Oxygen Flow Rate Fraction of Inspired Oxygen 09/27/24 18:25 09/27/24 18:30 09/27/24 19:30 Temperature Pulse Rate 106 H Respiratory Rate Blood Pressure Pulse Oximetry 94 Oxygen Delivery Mechanical Ventilation Oxygen Flow Rate Fraction of Inspired Oxygen 100 80 80 09/27/24 19:30 09/27/24 19:55 09/27/24 20:00 Temperature Pulse Rate 106 H 108 H 108 H Respiratory Rate 28 H 28 H 28 H Blood Pressure 109/64 Pulse Oximetry Oxygen Delivery Oxygen Flow Rate Fraction of Inspired Oxygen 09/27/24 20:00 09/27/24 20:00 09/27/24 20:00 Temperature 36.8 C Pulse Rate 108 H 108 H Respiratory Rate 28 H 28 H Blood Pressure 109/64 Pulse Oximetry 98 98 Oxygen Delivery Mechanical Ventilation Oxygen Flow Rate 30 Fraction of Inspired Oxygen 80 80 09/27/24 20:00 09/27/24 20:00 09/27/24 20:00 Temperature Pulse Rate 108 H 108 H 108 H Respiratory Rate 28 H 28 H Blood Pressure 109/64 Pulse Oximetry Oxygen Delivery Oxygen Flow Rate Fraction of Inspired Oxygen 09/27/24 20:00 09/27/24 21:00 09/27/24 21:00 Temperature Pulse Rate 107 H 110 H 110 H Respiratory Rate 28 H 28 H Blood Pressure 105/54 L 105/54 L Pulse Oximetry Oxygen Delivery Oxygen Flow Rate Fraction of Inspired Oxygen 09/27/24 21:50 09/27/24 22:00 09/27/24 22:00 Temperature 36.8 C Pulse Rate 111 H 110 H 110 H Respiratory Rate 28 H 28 H 28 H Blood Pressure 105/55 L 109/56 L Pulse Oximetry 93 Oxygen Delivery Oxygen Flow Rate Fraction of Inspired Oxygen 09/27/24 22:00 09/27/24 22:00 09/27/24 22:00 Temperature Pulse Rate 110 H 110 H 110 H Respiratory Rate 28 H 28 H Blood Pressure 109/56 L 109/56 L Pulse Oximetry Oxygen Delivery Oxygen Flow Rate Fraction of Inspired Oxygen 09/27/24 22:00 09/27/24 22:44 09/28/24 00:00 Temperature Pulse Rate 110 H 108 H 107 H Respiratory Rate 28 H Blood Pressure Pulse Oximetry 94 Oxygen Delivery Mechanical Ventilation Oxygen Flow Rate Fraction of Inspired Oxygen 80 09/28/24 00:00 09/28/24 00:00 09/28/24 00:00 Temperature Pulse Rate 107 H 107 H Respiratory Rate 28 H Blood Pressure 105/54 L Pulse Oximetry 95 Oxygen Delivery Mechanical Ventilation Oxygen Flow Rate 30 Fraction of Inspired Oxygen 80 80 09/28/24 00:00 09/28/24 00:00 09/28/24 00:00 Temperature 36.8 C Pulse Rate 107 H 106 H 107 H Respiratory Rate 28 H 28 H Blood Pressure 105/54 L Pulse Oximetry 95 Oxygen Delivery Oxygen Flow Rate Fraction of Inspired Oxygen 09/28/24 00:00 09/28/24 00:30 09/28/24 00:30 Temperature Pulse Rate 107 H 108 H 108 H Respiratory Rate 28 H 28 H 28 H Blood Pressure 105/54 L Pulse Oximetry Oxygen Delivery Oxygen Flow Rate Fraction of Inspired Oxygen 09/28/24 00:40 09/28/24 01:55 09/28/24 01:55 Temperature Pulse Rate 106 H 113 H 108 H Respiratory Rate 28 H Blood Pressure 100/57 L Pulse Oximetry 96 Oxygen Delivery Mechanical Ventilation Oxygen Flow Rate Fraction of Inspired Oxygen 80 09/28/24 02:00 09/28/24 02:00 09/28/24 02:00 Temperature Pulse Rate 109 H 109 H 109 H Respiratory Rate 28 H 28 H Blood Pressure 88/45 L 88/45 L 88/45 L Pulse Oximetry Oxygen Delivery Oxygen Flow Rate Fraction of Inspired Oxygen 09/28/24 02:00 09/28/24 02:00 09/28/24 02:00 Temperature Pulse Rate 109 H 109 H 109 H Respiratory Rate 28 H 28 H Blood Pressure Pulse Oximetry Oxygen Delivery Oxygen Flow Rate Fraction of Inspired Oxygen 09/28/24 02:00 09/28/24 02:16 09/28/24 04:00 Temperature 36.9 C Pulse Rate 109 H 112 H 113 H Respiratory Rate 28 H 28 H 28 H Blood Pressure 88/45 L Pulse Oximetry 96 Oxygen Delivery Oxygen Flow Rate Fraction of Inspired Oxygen 09/28/24 04:00 09/28/24 04:00 09/28/24 04:00 Temperature Pulse Rate 113 H 113 H 113 H Respiratory Rate 28 H 28 H Blood Pressure 114/59 L 114/59 L Pulse Oximetry Oxygen Delivery Oxygen Flow Rate Fraction of Inspired Oxygen 09/28/24 04:00 09/28/24 04:00 09/28/24 04:00 Temperature 36.9 C Pulse Rate 113 H 112 H 113 H Respiratory Rate 28 H 28 H Blood Pressure 114/59 L Pulse Oximetry 96 96 Oxygen Delivery Mechanical Ventilation Oxygen Flow Rate 30 Fraction of Inspired Oxygen 80 09/28/24 04:00 09/28/24 04:45 09/28/24 04:50 Temperature Pulse Rate 111 H 112 H Respiratory Rate 28 H Blood Pressure 111/67 Pulse Oximetry 96 Oxygen Delivery Mechanical Ventilation Oxygen Flow Rate Fraction of Inspired Oxygen 80 80 09/28/24 06:00 09/28/24 06:00 09/28/24 06:00 Temperature 36.9 C Pulse Rate 110 H 110 H 110 H Respiratory Rate 28 H 28 H Blood Pressure 106/58 L Pulse Oximetry 95 Oxygen Delivery Oxygen Flow Rate Fraction of Inspired Oxygen 09/28/24 06:00 09/28/24 06:00 09/28/24 06:00 Temperature Pulse Rate 110 H 110 H 110 H Respiratory Rate 28 H 28 H Blood Pressure 106/58 L 106/58 L Pulse Oximetry Oxygen Delivery Oxygen Flow Rate Fraction of Inspired Oxygen 09/28/24 06:20 09/28/24 06:20 09/28/24 07:51 Temperature Pulse Rate 108 H 108 H 108 H Respiratory Rate 28 H 28 H 28 H Blood Pressure Pulse Oximetry Oxygen Delivery Oxygen Flow Rate Fraction of Inspired Oxygen 09/28/24 08:00 09/28/24 08:00 09/28/24 08:00 Temperature Pulse Rate 108 H 108 H 109 H Respiratory Rate 28 H 28 H 28 H Blood Pressure 118/65 Pulse Oximetry Oxygen Delivery Oxygen Flow Rate Fraction of Inspired Oxygen 09/28/24 08:00 09/28/24 08:00 09/28/24 08:01 Temperature Pulse Rate 109 H 109 H 111 H Respiratory Rate 28 H Blood Pressure 118/65 Pulse Oximetry 93 Oxygen Delivery Mechanical Ventilation Oxygen Flow Rate Fraction of Inspired Oxygen 70 09/28/24 09:59 09/28/24 10:00 09/28/24 10:00 Temperature Pulse Rate 114 H 113 H 113 H Respiratory Rate 28 H 28 H Blood Pressure 118/66 118/66 Pulse Oximetry Oxygen Delivery Oxygen Flow Rate Fraction of Inspired Oxygen 09/28/24 10:00 09/28/24 10:15 09/28/24 10:30 Temperature 36.9 C Pulse Rate 113 H 113 H 113 H Respiratory Rate 28 H 28 H Blood Pressure 116/60 115/65 Pulse Oximetry 94 Oxygen Delivery Oxygen Flow Rate Fraction of Inspired Oxygen 09/28/24 10:31 09/28/24 10:31 09/28/24 10:45 Temperature Pulse Rate 113 H 113 H 113 H Respiratory Rate 28 H 28 H Blood Pressure 115/65 115/65 108/59 L Pulse Oximetry Oxygen Delivery Oxygen Flow Rate Fraction of Inspired Oxygen 09/28/24 10:48 09/28/24 11:15 09/28/24 11:31 Temperature Pulse Rate 114 H 116 H 118 H Respiratory Rate Blood Pressure 94/52 L 96/56 L Pulse Oximetry 93 Oxygen Delivery Mechanical Ventilation Oxygen Flow Rate Fraction of Inspired Oxygen 70 Results Labs 09/28/24 05:31 09/28/24 05:31 Labs: Short CBC 09/28/24 Range/Units 05:31 WBC 36.6 H (4.5-10.0) K/mm3 Hgb 7.7 L (12.0-15.0) g/dL Hct 24.3 L (37.0-47.0) % Plt Count 169 (150-375) k/mm3 BMP 09/28/24 05:31 Sodium 134 L Potassium 4.5 Chloride 99 Carbon Dioxide 23 BUN 71 H D Creatinine 2.88 H Glucose 401 H Calcium 8.7 Liver Function 09/28/24 Range/Units 05:31 Total Bilirubin 0.9 (0.2-1.3) mg/dL AST 55 H (14-36) U/L ALT 115 H (6-35) U/L Alkaline Phosphatase 524 H (38-126) U/L Albumin 2.6 L (3.5-5.1) g/dL
[2024-09-28] MEDS: EPOETIN ALFA-EPBX 10,000 UNITS/ML VIAL 10000 UNITS IV PUSH (11:47)
[2024-09-28] MEDS: SODIUM CHLORIDE 0.9% IV 1,000 ML 999 ML IV CONT (11:48)
[2024-09-28 11:58] LABS: Glucose Point of Care 164 mg/dl (65-105)
--- NOTE | 2024-09-28 12:00 | PM.PNNEP ---
Progress Note: A&P Assessment and Plan (1) SCAR (acute kidney injury): Code(s): N17.9 - Acute kidney failure, unspecified Status: Acute Assessment and Plan: as noted by labs starting on 09/22 normal creatinine at baseline multifactorial etiology: prerenal factors insensible losses (from high fevers on admission) hemodynamic instability/shock sepsis/infection (pneumonia + influenza) contrast (CTA chest on 09/20) other(?) evaluation noted: urine electrolytes prerenal x 2 CPK okay renal ultrasound normal proteinuria noted (possibly due to diabetes) urine eosinophils negative UA with protein and glucose better urine output noted with diuretic trial on 09/23 and 09/24 good urine noted without diuretics on 09/25 however, BUN & creatinine continue to climb/worsen... s/p temporary HD catheter placement on 09/26 HD day before yesterday and yesterday HD today follow trend of repeat labs and UOP for potential renal recovery (2) Septic shock: Code(s): A41.9 - Sepsis, unspecified organism; R65.21 - Severe sepsis with septic shock Status: Acute Assessment and Plan: presumably due to pneumonia and possibly influenza s/p fluid resuscitation and IV albumin was weaned off vasopressor therapy but restarted on 09/27 culture data noted blood culture negative to date sputum culture with Staph aureus off stress dose steroids on antibiotics follow trend of hemodynamics (3) Acute hypoxic respiratory failure: Code(s): J96.01 - Acute respiratory failure with hypoxia Status: Acute Assessment and Plan: due to pneumonia and influenza imaging noted: chest CTA (on 09/20): bilateral multifocal pneumonia, most extensively involving the lower lobes; no pulmonary embolus seen remains on mechanical ventilation intubated in the ER for airway protection and ongoing hypoxic respiratory failure unresponsive to BiPAP therapy weaning as able (4) Spontaneous pneumothorax: Code(s): J93.83 - Other pneumothorax Status: Acute Assessment and Plan: as noted by STAT chest x-ray on 09/25/24 afternoon s/p chest tube placement by Surgery repeat CXR with resolution of pneumothorax continue supportive therapy (5) Influenza: Code(s): J11.1 - Influenza due to unidentified influenza virus with other respiratory manifestations Status: Acute Assessment and Plan: as noted by testing in the ER respiratory isolation completed course of Tamiflu (6) PNA (pneumonia): Code(s): J18.9 - Pneumonia, unspecified organism Status: Acute Assessment and Plan: see #2 (7) Anemia, unspecified: Code(s): D64.9 - Anemia, unspecified Status: Acute Assessment and Plan: related to SCAR and acute illness PRBC transfusion per protocol EMANUEL with dialysis follow trend of H/H (8) Metabolic acidosis: Code(s): E87.20 - Acidosis, unspecified Status: Acute Assessment and Plan: due to SCAR and possibly mild lactic acidosis (on admission) s/p IVF resuscitation improved/stabilized with dialysis follow CO2 levels (9) Shock liver: Code(s): K72.00 - Acute and subacute hepatic failure without coma Status: Acute Assessment and Plan: slow improvement noted as noted by elevated AST and ALT alkaline phosphatase and bilirubin normal slow improvement noted RUQ ultrasound noted: gallbladder wall thickening no evidence of gallstones fatty infiltration of the liver negative hepatitis panel follow trend (10) Uncontrolled diabetes mellitus: Status: Acute Assessment and Plan: follow accu-cheks glycemic control per intensivisit Discussed case with Dr. Ramirez. Will continue to follow. Subjective Date/time seen: 09/28/24 12:00 Interval history: Follow-up for acute kidney injury/acute renal failure. Tolerating dialysis treatment at the time of my visit (seen on HD at 11:50AM); remains intubated/sedated/paralyzed and in prone positioning; tolerated HD yesterday without any issues or problems; levophed restarted yesterday due to declining blood pressure/MAP; declining urine output noted as well. Exam Narrative: General: WD/WN female in NAD Heart:tachycardic, normal S1 and S2; no rub Lungs: coarse breath sounds Abdomen: soft, nontender, nondistended, positive bowel sounds Extremities: no cyanosis or clubbing; no edema Skin: no rash Objective Data Vital Signs Vital Signs: Vital Signs Temp Pulse Resp BP Pulse Ox O2 Del Method O2 Flow Rate 09/28/24 12:00 99.6 F 121 H 28 H 105/69 95 Mechanical Ventilation 09/28/24 11:45 119 H 105/70 09/28/24 11:31 118 H 96/56 L 09/28/24 11:30 118 H 96/56 L 09/28/24 11:15 116 H 94/52 L 09/28/24 11:15 116 H 94/52 L 09/28/24 11:00 115 H 97/56 L 09/28/24 10:48 114 H 93 Mechanical Ventilation 09/28/24 10:45 113 H 108/59 L 09/28/24 10:31 113 H 28 H 115/65 09/28/24 10:31 113 H 28 H 115/65 09/28/24 10:30 113 H 115/65 09/28/24 10:15 98.4 F 113 H 28 H 116/60 94 09/28/24 10:00 98.3 F 113 H 28 H 118/66 94 09/28/24 10:00 113 H 09/28/24 10:00 113 H 28 H 09/28/24 10:00 113 H 118/66 09/28/24 10:00 113 H 28 H 09/28/24 09:59 114 H 28 H 118/66 09/28/24 08:01 111 H 93 Mechanical Ventilation 09/28/24 08:00 98.3 F 109 H 28 H 118/65 93 09/28/24 08:00 09/28/24 08:00 112 H 09/28/24 08:00 Mechanical Ventilation 09/28/24 08:00 109 H 28 H 09/28/24 08:00 109 H 118/65 09/28/24 08:00 109 H 28 H 09/28/24 08:00 108 H 28 H 09/28/24 08:00 108 H 28 H 118/65 09/28/24 07:51 108 H 28 H 09/28/24 06:20 108 H 28 H 09/28/24 06:20 108 H 28 H 09/28/24 06:00 110 H 28 H 106/58 L 09/28/24 06:00 110 H 106/58 L 09/28/24 06:00 110 H 28 H 09/28/24 06:00 110 H 28 H 09/28/24 06:00 110 H 09/28/24 06:00 98.5 F 110 H 28 H 106/58 L 95 09/28/24 04:50 112 H 28 H 111/67 09/28/24 04:45 111 H 96 Mechanical Ventilation 09/28/24 04:00 09/28/24 04:00 113 H 28 H 96 Mechanical Ventilation 09/28/24 04:00 112 H 09/28/24 04:00 98.5 F 113 H 28 H 114/59 L 96 09/28/24 04:00 113 H 28 H 114/59 L 09/28/24 04:00 113 H 114/59 L 09/28/24 04:00 113 H 28 H 09/28/24 04:00 113 H 28 H 09/28/24 02:16 112 H 28 H 09/28/24 02:00 98.4 F 109 H 28 H 88/45 L 96 09/28/24 02:00 109 H 09/28/24 02:00 109 H 28 H 09/28/24 02:00 109 H 28 H 09/28/24 02:00 109 H 28 H 88/45 L 09/28/24 02:00 109 H 88/45 L 09/28/24 02:00 109 H 28 H 88/45 L 09/28/24 01:55 108 H 28 H 09/28/24 01:55 113 H 96 Mechanical Ventilation 09/28/24 00:40 106 H 100/57 L 09/28/24 00:30 108 H 28 H 09/28/24 00:30 108 H 28 H 09/28/24 00:00 107 H 28 H 105/54 L 09/28/24 00:00 107 H 28 H 09/28/24 00:00 106 H 09/28/24 00:00 98.3 F 107 H 28 H 105/54 L 95 09/28/24 00:00 09/28/24 00:00 107 H 28 H 95 Mechanical Ventilation 30 09/28/24 00:00 107 H 105/54 L 09/28/24 00:00 107 H 28 H 09/27/24 22:44 108 H 94 Mechanical Ventilation 09/27/24 22:00 110 H 09/27/24 22:00 110 H 109/56 L 09/27/24 22:00 110 H 28 H 09/27/24 22:00 110 H 28 H 109/56 L 09/27/24 22:00 110 H 28 H 09/27/24 22:00 98.3 F 110 H 28 H 109/56 L 93 09/27/24 21:50 111 H 28 H 105/55 L 09/27/24 21:00 110 H 28 H 105/54 L 09/27/24 21:00 110 H 28 H 105/54 L 09/27/24 20:00 107 H 09/27/24 20:00 108 H 109/64 09/27/24 20:00 108 H 28 H 09/27/24 20:00 108 H 28 H 09/27/24 20:00 98.3 F 108 H 28 H 109/64 98 09/27/24 20:00 09/27/24 20:00 108 H 28 H 98 Mechanical Ventilation 30 09/27/24 20:00 108 H 28 H 109/64 09/27/24 19:55 108 H 28 H 09/27/24 19:30 106 H 28 H 09/27/24 19:30 106 H 94 Mechanical Ventilation 09/27/24 18:30 09/27/24 18:25 09/27/24 18:00 98.5 F 105 H 28 H 89/51 L 100 09/27/24 18:00 105 H 09/27/24 18:00 105 H 89/51 L 09/27/24 18:00 105 H 28 H 09/27/24 18:00 105 H 28 H 89/51 L 09/27/24 18:00 105 H 28 H 09/27/24 17:37 106 H 28 H 09/27/24 17:37 105 H 28 H 09/27/24 16:52 109 H 28 H 09/27/24 16:52 109 H 28 H 09/27/24 16:30 99.1 F 111 H 28 H 92/52 L 99 09/27/24 16:23 114 H 83/56 L 09/27/24 16:15 113 H 83/55 L 09/27/24 16:00 113 H 09/27/24 16:00 09/27/24 16:00 99 Mechanical Ventilation 09/27/24 16:00 114 H 87/60 L 09/27/24 16:00 114 H 28 H 09/27/24 16:00 114 H 28 H 87/60 L 09/27/24 16:00 114 H 28 H 09/27/24 16:00 99.3 F 114 H 28 H 87/60 L 99 09/27/24 16:00 113 H 87/60 L 09/27/24 15:45 113 H 93/58 L 09/27/24 15:30 116 H 87/57 L 09/27/24 15:15 118 H 87/55 L 02/26/25 15:10 120 H 85/57 L 09/27/24 15:00 122 H 84/57 L 09/27/24 14:45 122 H 90/52 L 09/27/24 14:30 122 H 94/58 L 09/27/24 14:15 122 H 85/56 L 09/27/24 14:10 121 H 28 H 09/27/24 14:06 122 H 91/58 L 09/27/24 14:00 100.3 F H 123 H 28 H 83/61 L 93 09/27/24 14:00 123 H 09/27/24 14:00 123 H 83/61 L 09/27/24 14:00 122 H 91/58 L 09/27/24 14:00 122 H 28 H 91/58 L 09/27/24 14:00 123 H 28 H 09/27/24 14:00 122 H 28 H 09/27/24 13:49 124 H 28 H 09/27/24 13:49 124 H 93 Mechanical Ventilation 09/27/24 13:48 126 H 28 H 09/27/24 13:47 126 H 90/54 L 09/27/24 13:45 126 H 90/54 L Intake/Output Intake/Output: Intake & Output 09/25/24 09/26/24 09/27/24 09/28/24 23:59 23:59 23:59 23:59 Intake Total 1752.6 1775.7 2092.0 1201.6 Output Total 2160 3202 1170 32 Balance -407.4 -1426.3 922.0 1169.6 Meds/Results Medications: Active Medications Generic Name Dose Route Start Last Admin Trade Name Freq PRN Reason Stop Dose Admin Acetaminophen 650 mg 09/20/24 19:03 09/21/24 11:59 Acetaminophen Elixir 325 Mg/10.15 Ml Udc PO 650 mg Q4H PRN Administration Mild Pain (1-3) or Fever Acetylcysteine 200 mg 09/27/24 08:00 09/28/24 07:51 Acetylcysteine 20% Inhal Soln 800 Mg/4 Ml Vial INHALATION 200 mg Q6HRT TOMY Administration Albuterol/Ipratropium 3 ml 09/22/24 08:26 09/28/24 07:51 Ipratropium 0.5 Mg/Albuterol Sulfate 2.5 Mg Ampul.Neb 3 Ml INHALATION 3 ml Q6HRT PRN Administration wheezing Dextrose 12.5 gm 09/20/24 03:19 Dextrose 50% 25 Gm/50 Ml Syringe IV PUSH PRN PRN Hypoglycemia Protocol Dornase Jaspreet 2.5 mg 09/27/24 08:00 09/28/24 07:50 Dornase Jaspreet Inh Soln 1 Mg/Ml 2.5 Ml Amp INHALATION 2.5 mg Q12HRT TOMY Administration Enoxaparin Sodium 30 mg 09/27/24 09:00 09/28/24 08:17 Enoxaparin 30 Mg/0.3 Ml Syringe SUB-Q 30 mg DAILY TOMY Administration Epoetin Jaspreet-epbx 10,000 units 09/28/24 18:33 09/28/24 11:47 Epoetin Jaspreet-Epbx 10,000 Units/Ml Vial IV PUSH 09/28/24 18:34 10,000 units ONCE ONE Administration Glucagon 1 mg 09/20/24 03:19 Glucagon For Inj 1 Mg Vial IM PRN PRN Hypoglycemia Protocol Glucose 15 gm 09/20/24 03:19 Glucose Oral Gel 15 Gm Of Glucse In 37.5 Gm Tube PO PRN PRN Hypoglycemia Protocol Dextrose 1,000 mls @ 100 mls/hr 09/20/24 03:19 Dextrose 5% 1,000 Ml IVPB PRN PRN Hypoglycemia Protocol Midazolam HCl 100 mg in 100 mls @ 4 mls/hr 09/20/24 22:10 09/28/24 12:49 Versed 100 Mg/Ns 100 Ml IV CONT 4 mg/hr .Q25H TOMY 4 mls/hr Titration Protocol 4 MG/HR Albumin Human 50 mls @ 999 mls/hr 09/26/24 12:07 09/28/24 10:41 Albutein IVPB 10/26/24 12:06 999 mls/hr Q10M PRN Administration HYPOTENSION Linezolid 600 mg in 300 mls @ 300 mls/hr 09/27/24 21:00 09/27/24 21:57 Zyvox IVPB Infused Q12HR TOMY Infusion Propofol 100 mls @ 14.574 mls/hr 09/27/24 10:15 09/28/24 12:43 Diprivan IV CONT 35 mcg/kg/min .Q6H52M TOMY 14.57 mls/hr Administration Protocol 35 MCG/KG/MIN Norepinephrine Bitartrate 8 mg in 250 mls @ 18.75 mls/hr 09/27/24 10:15 09/28/24 12:44 Levophed 8 Mg/D5w 250 Ml IV CONT 12 mcg/min .[id number] TOMY 22.5 mls/hr Administration Protocol 10 MCG/MIN Meropenem 1 gm in 100 mls @ 200 mls/hr 09/27/24 18:00 09/27/24 18:14 IVPB Infused Q24H TOMY Infusion Cisatracurium Besylate 200 mg/ 100 mls @ 11.451 mls/hr 09/28/24 02:05 09/28/24 12:46 Sodium Chloride IV CONT 5.5 mcg/kg/min .Q8H44M TOMY 11.45 mls/hr Titration Protocol 5.5 MCG/KG/MIN Insulin Human Regular 100 100 mls @ 1 mls/hr 09/28/24 08:30 09/28/24 11:58 units/ Sodium Chloride IV CONT 1 units/hr .Q24H TOMY 1 mls/hr Titration Protocol 1 UNITS/HR Insulin Aspart 4 - 8 units 09/21/24 08:40 09/28/24 04:43 Insulin Aspart (*Bkc) 100 Units/Ml SUB-Q 8 units Q4H TOMY Administration Protocol Insulin Glargine 40 units 09/22/24 09:00 09/27/24 09:10 Insulin Glargine (*Bkc) 100 Units/Ml SUB-Q 40 units QAM TOMY Administration Levothyroxine Sodium 100 mcg 09/21/24 06:30 09/28/24 05:25 Levothyroxine Sodium 100 Mcg Tablet FEED TUBE 100 mcg DAILY@0630 TOMY Administration Miscellaneous Information 0 each 09/29/24 00:01 Ivs In Normal Saline XX 10/29/24 00:00 [facility] Multi-Ingred Cream/Lotion/Oil/Oint 1 applic 09/20/24 21:00 09/27/24 20:57 Mineral Oil/White Petrolatum Ointment EACH EYE 1 applic Q12HR TOMY Administration Pantoprazole Sodium 40 mg 09/20/24 09:00 09/28/24 08:17 Pantoprazole Sodium Iv 40 Mg Vial IV PUSH 40 mg QAM TOMY Administration Sodium Chloride 10 ml 09/20/24 14:00 09/28/24 05:25 Central Line Flush IV PUSH 10 ml Q8HR TOMY Administration Sodium Chloride 20 ml 09/20/24 06:40 Central Line Flush IV PUSH PRN PRN after blood draws Radiology Results: ITS Impressions Chest CTA 09/20/24 05:30 Impression: Bilateral multifocal pneumonia, most extensively involving the lower lobes. No pulmonary embolus seen. Abdomen X-Ray 09/20/24 05:35 Impression: NG tube in satisfactory position. Abdomen Ultrasound 09/22/24 15:02 IMPRESSION: 1: Gallbladder wall thickening, nonspecific. No evidence for gallstones. 2: Fatty infiltration of the liver. Renal Ultrasound 09/22/24 15:14 IMPRESSION: 1. Normal kidneys without hydronephrosis. Chest X-Ray 09/28/24 06:02 Impression: 1: Stable extensive bilateral airspace disease. Differential diagnosis includes pneumonia, edema and/or ARDS. Labs Labs: Laboratory Tests 09/28/24 05:31 09/28/24 05:31 Calcium 8.7 Phosphorus 4.2 Magnesium 2.3 Total Bilirubin 0.9 AST 55 H ALT 115 H Alkaline Phosphatase 524 H Total Protein 6.0 L Albumin 2.6 L Microbiology 09/27/24 11:50 Sputum Sputum Culture - Preliminary 09/27/24 11:02 Blood Blood Culture - Preliminary 09/27/24 10:57 Blood Blood Culture - Preliminary
[2024-09-28 12:25] LABS: Alveolar/Arterial O2 Gradient 337.2 mmHg; Base Excess ABG 1.7 mEq/l (+/-2.0); Device VENTILATOR; Fractional Inspired Oxygen 70 %; HCO3 ABG 27.8 mEq/l (22.0-26.0); Modified Allen's Test Pass; Oxygen Content ABG 12.4 %vol (16.0-22.0); Oxygen Saturation ABG 97.6 % (95.0-100.0); Oxyhemoglobin 96.6 % THb (90.0-100.0); PCO2 ABG 51.5 mmHg (35.0-45.0); PO2 ABG 106.5 mmHg (80.0-100.0); PO2 FiO2 Ratio Arterial Blood 1.52 %; Site Drawn LEFT RADIAL
[2024-09-28 12:26] LABS: Arterial Blood Gas PEEP 12 cmH2O; Arterial Blood Gas Tidal Volume 370 ml; Arterial Blood Gas Vent Mode CMV; Arterial Blood Gas Ventilator rate 28 /MIN
[2024-09-28] MEDS: NOREPINEPHRINE 8 MG/D5W 250 ML 8 MG/250 ML BAG 22.5 MG IV CONT (12:44)
[2024-09-28 13:14] LABS: Glucose Point of Care 162 mg/dl (65-105)
[2024-09-28 14:36] LABS: Glucose Point of Care 217 mg/dl (65-105)
[2024-09-28] MEDS: LINEZOLID 600 MG/300 ML 600 MG/300 ML SOLN 300 MG IVPB (14:38)
[2024-09-28] MEDS: ACETAMINOPHEN ELIXIR 325 MG/10.15 ML UDC 650 MG PO (15:23)
[2024-09-28 15:55] LABS: Glucose Point of Care 336 mg/dl (65-105)
--- NOTE | 2024-09-28 17:10 | PM.PNNEP ---
Progress Note: A&P Assessment and Plan (1) SCAR (acute kidney injury): Code(s): N17.9 - Acute kidney failure, unspecified Status: Acute Assessment and Plan: as noted by labs starting on 09/22 normal creatinine at baseline multifactorial etiology: prerenal factors insensible losses (from high fevers on admission) hemodynamic instability/shock sepsis/infection (pneumonia + influenza) contrast (CTA chest on 09/20) other(?) evaluation noted: urine electrolytes prerenal x 2 CPK okay renal ultrasound normal proteinuria noted (possibly due to diabetes) urine eosinophils negative UA with protein and glucose better urine output noted with diuretic trial on 09/23 and 09/24 good urine noted without diuretics on 09/25 however, BUN & creatinine continue to climb/worsen... s/p temporary HD catheter placement on 09/26 HD on 09/26, 09/27, and 09/28 hold HD today and likely plan again on 09/30 follow trend of repeat labs and UOP for potential renal recovery (2) Septic shock: Code(s): A41.9 - Sepsis, unspecified organism; R65.21 - Severe sepsis with septic shock Status: Acute Assessment and Plan: presumably due to pneumonia and possibly influenza s/p fluid resuscitation and IV albumin was weaned off vasopressor therapy but restarted on 09/27 culture data noted blood culture negative to date sputum culture with Staph aureus off stress dose steroids on antibiotics repeat imaging later today given significant leukocytosis follow trend of hemodynamics (3) Acute hypoxic respiratory failure: Code(s): J96.01 - Acute respiratory failure with hypoxia Status: Acute Assessment and Plan: due to pneumonia and influenza imaging noted: chest CTA (on 09/20): bilateral multifocal pneumonia, most extensively involving the lower lobes; no pulmonary embolus seen remains on mechanical ventilation intubated in the ER for airway protection and ongoing hypoxic respiratory failure unresponsive to BiPAP therapy weaning as able (4) Spontaneous pneumothorax: Code(s): J93.83 - Other pneumothorax Status: Acute Assessment and Plan: as noted by STAT chest x-ray on 09/25/24 afternoon s/p chest tube placement by Surgery repeat CXR with resolution of pneumothorax continue supportive therapy (5) Influenza: Code(s): J11.1 - Influenza due to unidentified influenza virus with other respiratory manifestations Status: Acute Assessment and Plan: as noted by testing in the ER respiratory isolation completed course of Tamiflu (6) PNA (pneumonia): Code(s): J18.9 - Pneumonia, unspecified organism Status: Acute Assessment and Plan: see #2 (7) Anemia, unspecified: Code(s): D64.9 - Anemia, unspecified Status: Acute Assessment and Plan: related to SCAR and acute illness PRBC transfusion per protocol EMANUEL with dialysis follow trend of H/H (8) Metabolic acidosis: Code(s): E87.20 - Acidosis, unspecified Status: Acute Assessment and Plan: due to SCAR and possibly mild lactic acidosis (on admission) s/p IVF resuscitation improved/stabilized with dialysis follow CO2 levels (9) Shock liver: Code(s): K72.00 - Acute and subacute hepatic failure without coma Status: Acute Assessment and Plan: slow improvement noted as noted by elevated AST and ALT alkaline phosphatase and bilirubin normal slow improvement noted RUQ ultrasound noted: gallbladder wall thickening no evidence of gallstones fatty infiltration of the liver negative hepatitis panel follow trend (10) Uncontrolled diabetes mellitus: Status: Acute Assessment and Plan: follow accu-cheks glycemic control per intensivisit Discussed case with Dr. Ramirez. Will continue to follow. Subjective Date/time seen: 09/29/24 09:07 Interval history: Follow-up for acute kidney injury/acute renal failure. Tolerated hemodialysis treatment yesterday without any issues or problems (with ~ 2L fluid removal); unfortunately, her urine output has declined even further (anuria); remains intubated/sedated and on mechanical ventilation; AM labs noted for significant leukocytosis as well; started on Flonan earlier; febrile in the last 24 hours also. Exam Narrative: General: WD/WN female in NAD Heart:tachycardic, normal S1 and S2; no rub Lungs: coarse breath sounds Abdomen: soft, nontender, nondistended, positive bowel sounds Extremities: no cyanosis or clubbing; no edema Skin: no nodules Objective Data Vital Signs Vital Signs: Vital Signs Temp Pulse Resp BP Pulse Ox O2 Del Method O2 Flow Rate 09/29/24 08:57 119 H 28 H 09/29/24 08:53 119 H 28 H 09/29/24 08:40 09/29/24 08:40 119 H 28 H 90 09/29/24 08:30 120 H 90 Mechanical Ventilation 09/29/24 08:30 118 H 28 H 96/58 L 09/29/24 08:15 119 H 28 H 104/59 L 09/29/24 08:00 100.6 F H 122 H 28 H 107/60 92 09/29/24 08:00 28 H 92 Mechanical Ventilation 09/29/24 08:00 09/29/24 08:00 122 H 107/60 09/29/24 08:00 122 H 28 H 107/60 09/29/24 08:00 122 H 28 H 09/29/24 08:00 122 H 28 H 09/29/24 07:51 100.6 F H 09/29/24 07:35 122 H 28 H 09/29/24 07:15 120 H 28 H 09/29/24 07:15 120 H 93 Mechanical Ventilation 09/29/24 07:00 120 H 28 H 114/58 L 09/29/24 06:51 100.3 F H 09/29/24 06:00 09/29/24 06:00 117 H 113/62 09/29/24 06:00 117 H 28 H 09/29/24 06:00 117 H 28 H 113/62 09/29/24 06:00 117 H 28 H 09/29/24 06:00 99.9 F H 117 H 28 H 113/62 91 09/29/24 06:00 117 H 09/29/24 05:46 117 H 28 H 116/55 L 09/29/24 05:46 117 H 28 H 116/55 L 09/29/24 05:14 116 H 114/60 09/29/24 04:41 114 H 93 Mechanical Ventilation 09/29/24 04:00 115 H 09/29/24 04:00 99.6 F 114 H 28 H 116/59 L 93 09/29/24 04:00 09/29/24 04:00 114 H 28 H 92 Mechanical Ventilation 30 09/29/24 04:00 114 H 28 H 09/29/24 04:00 114 H 116/59 L 09/29/24 04:00 114 H 28 H 116/59 L 09/29/24 04:00 114 H 28 H 09/29/24 02:51 110 H 95 Mechanical Ventilation 09/29/24 02:47 110 H 28 H 09/29/24 02:00 110 H 99/58 L 09/29/24 02:00 110 H 28 H 99/58 L 09/29/24 02:00 109 H 28 H 09/29/24 02:00 99.7 F H 110 H 28 H 99/58 L 95 09/29/24 02:00 110 H 09/29/24 02:00 109 H 28 H 09/29/24 02:00 109 H 28 H 09/29/24 00:00 114 H 09/29/24 00:00 09/29/24 00:00 112 H 28 H 95 Mechanical Ventilation 09/29/24 00:00 99.7 F H 112 H 28 H 103/60 95 09/29/24 00:00 112 H 103/60 09/29/24 00:00 112 H 28 H 09/29/24 00:00 112 H 28 H 103/60 09/29/24 00:00 112 H 28 H 09/28/24 23:59 111 H 94 Mechanical Ventilation 09/28/24 23:15 113 H 107/63 09/28/24 22:00 99.7 F H 115 H 28 H 110/59 L 94 09/28/24 22:00 115 H 110/59 L 09/28/24 22:00 115 H 28 H 09/28/24 22:00 115 H 28 H 110/59 L 09/28/24 22:00 115 H 28 H 09/28/24 22:00 115 H 09/28/24 20:40 112 H 93 Mechanical Ventilation 09/28/24 20:39 111 H 28 H 09/28/24 20:00 116 H 09/28/24 20:00 100.1 F H 116 H 28 H 107/58 L 93 09/28/24 20:00 09/28/24 20:00 117 H 28 H 94 Mechanical Ventilation 09/28/24 20:00 117 H 28 H 107/58 L 09/28/24 20:00 117 H 28 H 107/58 L 09/28/24 20:00 117 H 107/58 L 09/28/24 20:00 117 H 28 H 09/28/24 20:00 117 H 28 H 09/28/24 20:00 117 H 28 H 09/28/24 19:00 100.4 F H 09/28/24 18:25 122 H 28 H 09/28/24 18:25 122 H 28 H 09/28/24 18:23 123 H 28 H 09/28/24 18:23 123 H 28 H 09/28/24 18:20 123 H 123 H 116/57 L 09/28/24 18:00 125 H 109/53 L 09/28/24 18:00 101.2 F H 125 H 28 H 109/53 L 93 09/28/24 18:00 125 H 09/28/24 17:55 124 H 93 Mechanical Ventilation 09/28/24 17:30 126 H 108/62 09/28/24 17:11 126 H 117/58 L 09/28/24 16:41 127 H 28 H 09/28/24 16:41 127 H 120/61 09/28/24 16:23 127 H 123/64 09/28/24 16:03 127 H 132/65 09/28/24 16:00 101 F H 126 H 28 H 132/65 91 09/28/24 16:00 09/28/24 16:00 127 H 09/28/24 16:00 Mechanical Ventilation 09/28/24 16:00 126 H 28 H 09/28/24 16:00 126 H 126 H 132/65 09/28/24 16:00 126 H 28 H 09/28/24 15:50 125 H 135/67 09/28/24 15:23 125 H 134/71 09/28/24 15:23 101.1 F H 09/28/24 15:04 125 H 136/69 09/28/24 14:57 124 H 131/73 09/28/24 14:45 123 H 28 H 09/28/24 14:45 124 H 128/68 09/28/24 14:42 123 H 94 Mechanical Ventilation 09/28/24 14:39 124 H 28 H 09/28/24 14:36 123 H 138/65 09/28/24 14:14 101.2 F H 125 H 28 H 107/60 95 09/28/24 14:00 127 H 28 H 09/28/24 14:00 127 H 28 H 107/60 09/28/24 14:00 127 H 28 H 09/28/24 14:00 101.1 F H 127 H 28 H 107/60 96 09/28/24 14:00 124 H 09/28/24 14:00 127 H 107/60 09/28/24 14:00 125 H 107/60 09/28/24 13:45 125 H 107/65 09/28/24 13:30 124 H 99/66 L 09/28/24 13:15 124 H 96/69 L 09/28/24 13:00 124 H 103/68 09/28/24 12:49 126 H 28 H 09/28/24 12:46 126 H 28 H 106/71 09/28/24 12:45 124 H 106/71 09/28/24 12:44 126 H 107/72 09/28/24 12:44 126 H 107/72 09/28/24 12:43 126 H 28 H 09/28/24 12:43 126 H 28 H 09/28/24 12:30 125 H 107/72 09/28/24 12:16 121 H 28 H 105/69 09/28/24 12:15 124 H 106/67 09/28/24 12:04 121 H 28 H 105/69 09/28/24 12:03 121 H 28 H 09/28/24 12:03 121 H 28 H Intake/Output Intake/Output: Intake & Output 09/26/24 09/27/24 09/28/24 09/29/24 23:59 23:59 23:59 23:59 Intake Total 1775.7 2092.0 2449.4 1344.7 Output Total 3202 1170 2037 5 Balance -1426.3 922.0 412.4 1339.7 Meds/Results Medications: Active Medications Generic Name Dose Route Start Last Admin Trade Name Freq PRN Reason Stop Dose Admin Acetaminophen 650 mg 09/20/24 19:03 09/29/24 06:51 Acetaminophen Elixir 325 Mg/10.15 Ml Udc PO 650 mg Q4H PRN Administration Mild Pain (1-3) or Fever Acetylcysteine 200 mg 09/27/24 08:00 09/29/24 07:15 Acetylcysteine 20% Inhal Soln 800 Mg/4 Ml Vial INHALATION 200 mg Q6HRT TOMY Administration Albuterol/Ipratropium 3 ml 09/22/24 08:26 09/29/24 02:46 Ipratropium 0.5 Mg/Albuterol Sulfate 2.5 Mg Ampul.Neb 3 Ml INHALATION 3 ml Q6HRT PRN Administration wheezing Dextrose 12.5 gm 09/20/24 03:19 Dextrose 50% 25 Gm/50 Ml Syringe IV PUSH PRN PRN Hypoglycemia Protocol Dornase Jaspreet 2.5 mg 09/27/24 08:00 09/29/24 07:15 Dornase Jaspreet Inh Soln 1 Mg/Ml 2.5 Ml Amp INHALATION 2.5 mg Q12HRT TOMY Administration Enoxaparin Sodium 30 mg 09/27/24 09:00 09/29/24 09:01 Enoxaparin 30 Mg/0.3 Ml Syringe SUB-Q 30 mg DAILY TOMY Administration Epoprostenol Sodium 1 mg 09/29/24 08:56 09/29/24 10:01 Epoprostenol Sodium 0.5 Mg Vial INHALATION 1 mg PRN PRN Administration Titrate Glucagon 1 mg 09/20/24 03:19 Glucagon For Inj 1 Mg Vial IM PRN PRN Hypoglycemia Protocol Glucose 15 gm 09/20/24 03:19 Glucose Oral Gel 15 Gm Of Glucse In 37.5 Gm Tube PO PRN PRN Hypoglycemia Protocol Dextrose 1,000 mls @ 100 mls/hr 09/20/24 03:19 Dextrose 5% 1,000 Ml IVPB PRN PRN Hypoglycemia Protocol Midazolam HCl 100 mg in 100 mls @ 5 mls/hr 09/20/24 22:10 09/29/24 10:00 Versed 100 Mg/Ns 100 Ml IV CONT 5 mg/hr .Q20H TOMY 5 mls/hr Titration Protocol 5 MG/HR Albumin Human 50 mls @ 999 mls/hr 09/26/24 12:07 09/28/24 10:41 Albutein IVPB 10/26/24 12:06 999 mls/hr Q10M PRN Administration HYPOTENSION Propofol 100 mls @ 14.574 mls/hr 09/27/24 10:15 09/29/24 10:00 Diprivan IV CONT 35 mcg/kg/min .Q6H52M TOMY 14.57 mls/hr Titration Protocol 35 MCG/KG/MIN Norepinephrine Bitartrate 8 mg in 250 mls @ 9.375 mls/hr 09/27/24 10:15 09/29/24 10:00 Levophed 8 Mg/D5w 250 Ml IV CONT 5 mcg/min .Q24H TOMY 9.38 mls/hr Titration Protocol 5 MCG/MIN Meropenem 1 gm in 100 mls @ 200 mls/hr 09/27/24 18:00 09/28/24 18:21 IVPB 200 mls/hr Q24H TOMY Administration Cisatracurium Besylate 200 mg/ 100 mls @ 12.492 mls/hr 09/28/24 02:05 09/29/24 10:00 Sodium Chloride IV CONT 6 mcg/kg/min .Q8H1M TOMY 12.49 mls/hr Titration Protocol 6 MCG/KG/MIN Insulin Human Regular 100 100 mls @ 6.5 mls/hr 09/28/24 08:30 09/29/24 10:48 units/ Sodium Chloride IV CONT 6.5 units/hr .[id number] TOMY 6.5 mls/hr Titration Protocol 6.5 UNITS/HR Linezolid 600 mg in 300 mls @ 300 mls/hr 09/29/24 02:00 09/29/24 04:06 Zyvox IVPB Infused Q12H TOMY Infusion Insulin Aspart 4 - 8 units 09/21/24 08:40 09/28/24 04:43 Insulin Aspart (*Bkc) 100 Units/Ml SUB-Q 8 units Q4H TOMY Administration Protocol Insulin Glargine 40 units 09/22/24 09:00 09/27/24 09:10 Insulin Glargine (*Bkc) 100 Units/Ml SUB-Q 40 units QAM TOMY Administration Levothyroxine Sodium 100 mcg 09/21/24 06:30 09/29/24 05:55 Levothyroxine Sodium 100 Mcg Tablet FEED TUBE 100 mcg DAILY@0630 TOMY Administration Miscellaneous Information 0 each 09/29/24 00:01 09/29/24 06:10 Ivs In Normal Saline XX 10/29/24 00:00 Not Given CLARIFY TOMY Multi-Ingred Cream/Lotion/Oil/Oint 1 applic 09/20/24 21:00 09/29/24 09:01 Mineral Oil/White Petrolatum Ointment EACH EYE 1 applic Q12HR TOMY Administration Pantoprazole Sodium 40 mg 09/20/24 09:00 09/29/24 09:01 Pantoprazole Sodium Iv 40 Mg Vial IV PUSH 40 mg QAM TOMY Administration Sodium Chloride 10 ml 09/20/24 14:00 09/29/24 05:55 Central Line Flush IV PUSH 10 ml Q8HR TOMY Administration Sodium Chloride 20 ml 09/20/24 06:40 Central Line Flush IV PUSH PRN PRN after blood draws Radiology Results: ITS Impressions Chest CTA 09/20/24 05:30 Impression: Bilateral multifocal pneumonia, most extensively involving the lower lobes. No pulmonary embolus seen. Abdomen X-Ray 09/20/24 05:35 Impression: NG tube in satisfactory position. Abdomen Ultrasound 09/22/24 15:02 IMPRESSION: 1: Gallbladder wall thickening, nonspecific. No evidence for gallstones. 2: Fatty infiltration of the liver. Renal Ultrasound 09/22/24 15:14 IMPRESSION: 1. Normal kidneys without hydronephrosis. Chest X-Ray 09/29/24 06:34 Impression: 1: Stable extensive bilateral airspace disease, consistent with pneumonia. Differential diagnosis includes edema and ARDS. Labs Labs: Laboratory Tests 09/29/24 05:57 09/29/24 05:57 Calcium 9.1 Phosphorus 3.8 Magnesium 2.3 Total Bilirubin 0.8 AST 63 H ALT 71 H Alkaline Phosphatase 558 H Total Protein 6.0 L Albumin 2.5 L Triglycerides 485 H Microbiology 09/27/24 11:50 Sputum Sputum Culture - Preliminary Staphylococcus aureus 09/27/24 10:57 Blood Blood Culture - Preliminary Gram positive cocci cluster is 09/27/24 11:02 Blood Blood Culture - Preliminary
[2024-09-28 17:16] LABS: Glucose Point of Care 320 mg/dl (65-105)
--- NOTE | 2024-09-28 17:50 | PM.IMPN ---
Progress Note: A&P Assessment and Plan (1) Endotracheally intubated: Code(s): Z97.8 - Presence of other specified devices Status: Acute (2) Septic shock: Code(s): A41.9 - Sepsis, unspecified organism; R65.21 - Severe sepsis with septic shock Status: Acute (3) Sepsis: Qualifiers: Sepsis type: sepsis due to unspecified organism Sepsis acute organ dysfunction status: with acute organ dysfunction Severe sepsis acute organ dysfunction type: acute respiratory failure Acute respiratory failure type: with hypoxia Severe sepsis shock status: with septic shock Qualified Code(s): A41.9 - Sepsis, unspecified organism; R65.21 - Severe sepsis with septic shock; J96.01 - Acute respiratory failure with hypoxia Code(s): A41.9 - Sepsis, unspecified organism Status: Acute (4) Acute hypoxic respiratory failure: Code(s): J96.01 - Acute respiratory failure with hypoxia Status: Acute (5) Influenza: Code(s): J11.1 - Influenza due to unidentified influenza virus with other respiratory manifestations Status: Acute (6) SCAR (acute kidney injury): Code(s): N17.9 - Acute kidney failure, unspecified Status: Acute Plan patient with acute respiratory failure secondary to influenza A and pneumonia developing ARDS, on 09/25 while on the ventilator patient desaturated and was found to have left sided spontaneous pneumothorax, surgery was consulted and chest tube was placed which remains in place, post chest tube x-ray showed resolution of the pneumothorax and seen by general surgery service, patient is now getting daily HD and managed by nephrology service, patient remain critically ill, in prone position managed by seam sewer. we appreciate seam sewer. 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 Patient had been taking NyQuil and Motrin at night. She reported fevers of 103.5 to nursing staff. On arrival she was lethargic drowsy and hot to touch with marked pallor. Her T-max in the ER was 104.6. She was initially placed on a non-rebreather with improvement her oxygen saturations to 92%. However shortly thereafter her work of breathing continued to increase in her oxygen saturations were dropping. An ABG was performed which demonstrated respiratory alkalosis with a PO2 of 64. She was placed on BiPAP but she would not tolerate the BiPAP and continue to pull it off. She was tried on high-flow nasal cannula but was only maintaining oxygen saturations in the low to mid 80s. She was subsequently intubated. She had an elevated D-dimer and had a CTA demonstrated bilateral multifocal pneumonia without evidence of pulmonary embolism. The patient was requiring a PEEP of 8 and 100% FiO2 to maintain oxygen saturations of 88-92%. The patient was started on empiric antibiotic therapy with cefepime doxycycline and vancomycin. She received 3 L isotonic IV fluid resuscitation (greater than 30 mL/kilos). Shortly after my evaluation the patient became acutely hypotensive. patient with acute respiratory failure secondary to influenza A and pneumonia developing ARDS, on 09/25 while on the ventilator patient desaturated and was found to have left sided spontaneous pneumothorax, surgery was consulted and chest tube was placed which remains in place, post chest tube x-ray showed resolution of the pneumothorax and seen by general surgery service, patient is now getting daily HD and managed by nephrology service, patient remain critically ill, in prone position managed by seam sewer. we appreciate seam sewer. Review of Systems Review of Systems: ROS unobtainable: Yes unobtainable due to endotracheal tube, unobtainable due to medical condition and unobtainable due to mental status Exam Narrative: Patient is comfortable, in prone position HEENT: ET tube in place LUNGS: Bilateral poor air entry ABD: in prone position Lower extremities: no edema SKIN: nonjaundiced Neuro: Sedated and intubated Objective Data Vital Signs Vital Signs: Vital Signs - 24 hr 09/27/24 18:00 09/27/24 18:00 09/27/24 18:00 Temperature Pulse Rate 105 H 105 H 105 H Respiratory Rate 28 H 28 H 28 H Blood Pressure 89/51 L Pulse Oximetry Oxygen Delivery Oxygen Flow Rate Fraction of Inspired Oxygen 09/27/24 18:00 09/27/24 18:00 09/27/24 18:00 Temperature 36.9 C Pulse Rate 105 H 105 H 105 H Respiratory Rate 28 H Blood Pressure 89/51 L 89/51 L Pulse Oximetry 100 Oxygen Delivery Oxygen Flow Rate Fraction of Inspired Oxygen 09/27/24 18:25 09/27/24 18:30 09/27/24 19:30 Temperature Pulse Rate 106 H Respiratory Rate Blood Pressure Pulse Oximetry 94 Oxygen Delivery Mechanical Ventilation Oxygen Flow Rate Fraction of Inspired Oxygen 100 80 80 09/27/24 19:30 09/27/24 19:55 09/27/24 20:00 Temperature Pulse Rate 106 H 108 H 108 H Respiratory Rate 28 H 28 H 28 H Blood Pressure 109/64 Pulse Oximetry Oxygen Delivery Oxygen Flow Rate Fraction of Inspired Oxygen 09/27/24 20:00 09/27/24 20:00 09/27/24 20:00 Temperature 36.8 C Pulse Rate 108 H 108 H Respiratory Rate 28 H 28 H Blood Pressure 109/64 Pulse Oximetry 98 98 Oxygen Delivery Mechanical Ventilation Oxygen Flow Rate 30 Fraction of Inspired Oxygen 80 80 09/27/24 20:00 09/27/24 20:00 09/27/24 20:00 Temperature Pulse Rate 108 H 108 H 108 H Respiratory Rate 28 H 28 H Blood Pressure 109/64 Pulse Oximetry Oxygen Delivery Oxygen Flow Rate Fraction of Inspired Oxygen 09/27/24 20:00 09/27/24 21:00 09/27/24 21:00 Temperature Pulse Rate 107 H 110 H 110 H Respiratory Rate 28 H 28 H Blood Pressure 105/54 L 105/54 L Pulse Oximetry Oxygen Delivery Oxygen Flow Rate Fraction of Inspired Oxygen 09/27/24 21:50 09/27/24 22:00 09/27/24 22:00 Temperature 36.8 C Pulse Rate 111 H 110 H 110 H Respiratory Rate 28 H 28 H 28 H Blood Pressure 105/55 L 109/56 L Pulse Oximetry 93 Oxygen Delivery Oxygen Flow Rate Fraction of Inspired Oxygen 09/27/24 22:00 09/27/24 22:00 09/27/24 22:00 Temperature Pulse Rate 110 H 110 H 110 H Respiratory Rate 28 H 28 H Blood Pressure 109/56 L 109/56 L Pulse Oximetry Oxygen Delivery Oxygen Flow Rate Fraction of Inspired Oxygen 09/27/24 22:00 09/27/24 22:44 09/28/24 00:00 Temperature Pulse Rate 110 H 108 H 107 H Respiratory Rate 28 H Blood Pressure Pulse Oximetry 94 Oxygen Delivery Mechanical Ventilation Oxygen Flow Rate Fraction of Inspired Oxygen 80 09/28/24 00:00 09/28/24 00:00 09/28/24 00:00 Temperature Pulse Rate 107 H 107 H Respiratory Rate 28 H Blood Pressure 105/54 L Pulse Oximetry 95 Oxygen Delivery Mechanical Ventilation Oxygen Flow Rate 30 Fraction of Inspired Oxygen 80 80 09/28/24 00:00 09/28/24 00:00 09/28/24 00:00 Temperature 36.8 C Pulse Rate 107 H 106 H 107 H Respiratory Rate 28 H 28 H Blood Pressure 105/54 L Pulse Oximetry 95 Oxygen Delivery Oxygen Flow Rate Fraction of Inspired Oxygen 09/28/24 00:00 09/28/24 00:30 09/28/24 00:30 Temperature Pulse Rate 107 H 108 H 108 H Respiratory Rate 28 H 28 H 28 H Blood Pressure 105/54 L Pulse Oximetry Oxygen Delivery Oxygen Flow Rate Fraction of Inspired Oxygen 09/28/24 00:40 09/28/24 01:55 09/28/24 01:55 Temperature Pulse Rate 106 H 113 H 108 H Respiratory Rate 28 H Blood Pressure 100/57 L Pulse Oximetry 96 Oxygen Delivery Mechanical Ventilation Oxygen Flow Rate Fraction of Inspired Oxygen 80 09/28/24 02:00 09/28/24 02:00 09/28/24 02:00 Temperature Pulse Rate 109 H 109 H 109 H Respiratory Rate 28 H 28 H Blood Pressure 88/45 L 88/45 L 88/45 L Pulse Oximetry Oxygen Delivery Oxygen Flow Rate Fraction of Inspired Oxygen 09/28/24 02:00 09/28/24 02:00 09/28/24 02:00 Temperature Pulse Rate 109 H 109 H 109 H Respiratory Rate 28 H 28 H Blood Pressure Pulse Oximetry Oxygen Delivery Oxygen Flow Rate Fraction of Inspired Oxygen 09/28/24 02:00 09/28/24 02:16 09/28/24 04:00 Temperature 36.9 C Pulse Rate 109 H 112 H 113 H Respiratory Rate 28 H 28 H 28 H Blood Pressure 88/45 L Pulse Oximetry 96 Oxygen Delivery Oxygen Flow Rate Fraction of Inspired Oxygen 09/28/24 04:00 09/28/24 04:00 09/28/24 04:00 Temperature Pulse Rate 113 H 113 H 113 H Respiratory Rate 28 H 28 H Blood Pressure 114/59 L 114/59 L Pulse Oximetry Oxygen Delivery Oxygen Flow Rate Fraction of Inspired Oxygen 09/28/24 04:00 09/28/24 04:00 09/28/24 04:00 Temperature 36.9 C Pulse Rate 113 H 112 H 113 H Respiratory Rate 28 H 28 H Blood Pressure 114/59 L Pulse Oximetry 96 96 Oxygen Delivery Mechanical Ventilation Oxygen Flow Rate 30 Fraction of Inspired Oxygen 80 09/28/24 04:00 09/28/24 04:45 09/28/24 04:50 Temperature Pulse Rate 111 H 112 H Respiratory Rate 28 H Blood Pressure 111/67 Pulse Oximetry 96 Oxygen Delivery Mechanical Ventilation Oxygen Flow Rate Fraction of Inspired Oxygen 80 80 09/28/24 06:00 09/28/24 06:00 09/28/24 06:00 Temperature 36.9 C Pulse Rate 110 H 110 H 110 H Respiratory Rate 28 H 28 H Blood Pressure 106/58 L Pulse Oximetry 95 Oxygen Delivery Oxygen Flow Rate Fraction of Inspired Oxygen 09/28/24 06:00 09/28/24 06:00 09/28/24 06:00 Temperature Pulse Rate 110 H 110 H 110 H Respiratory Rate 28 H 28 H Blood Pressure 106/58 L 106/58 L Pulse Oximetry Oxygen Delivery Oxygen Flow Rate Fraction of Inspired Oxygen 09/28/24 06:20 09/28/24 06:20 09/28/24 07:51 Temperature Pulse Rate 108 H 108 H 108 H Respiratory Rate 28 H 28 H 28 H Blood Pressure Pulse Oximetry Oxygen Delivery Oxygen Flow Rate Fraction of Inspired Oxygen 09/28/24 08:00 09/28/24 08:00 09/28/24 08:00 Temperature Pulse Rate 108 H 108 H 109 H Respiratory Rate 28 H 28 H 28 H Blood Pressure 118/65 Pulse Oximetry Oxygen Delivery Oxygen Flow Rate Fraction of Inspired Oxygen 09/28/24 08:00 09/28/24 08:00 09/28/24 08:00 Temperature Pulse Rate 109 H 109 H Respiratory Rate 28 H Blood Pressure 118/65 Pulse Oximetry Oxygen Delivery Mechanical Ventilation Oxygen Flow Rate Fraction of Inspired Oxygen 70 09/28/24 08:00 09/28/24 08:00 09/28/24 08:00 Temperature 36.8 C Pulse Rate 112 H 109 H Respiratory Rate 28 H Blood Pressure 118/65 Pulse Oximetry 93 Oxygen Delivery Oxygen Flow Rate Fraction of Inspired Oxygen 70 09/28/24 08:01 09/28/24 09:59 09/28/24 10:00 Temperature Pulse Rate 111 H 114 H 113 H Respiratory Rate 28 H 28 H Blood Pressure 118/66 Pulse Oximetry 93 Oxygen Delivery Mechanical Ventilation Oxygen Flow Rate Fraction of Inspired Oxygen 70 09/28/24 10:00 09/28/24 10:00 09/28/24 10:00 Temperature Pulse Rate 113 H 113 H 113 H Respiratory Rate 28 H Blood Pressure 118/66 Pulse Oximetry Oxygen Delivery Oxygen Flow Rate Fraction of Inspired Oxygen 09/28/24 10:00 09/28/24 10:15 09/28/24 10:30 Temperature 36.8 C 36.9 C Pulse Rate 113 H 113 H 113 H Respiratory Rate 28 H 28 H Blood Pressure 118/66 116/60 115/65 Pulse Oximetry 94 94 Oxygen Delivery Oxygen Flow Rate Fraction of Inspired Oxygen 09/28/24 10:31 09/28/24 10:31 09/28/24 10:45 Temperature Pulse Rate 113 H 113 H 113 H Respiratory Rate 28 H 28 H Blood Pressure 115/65 115/65 108/59 L Pulse Oximetry Oxygen Delivery Oxygen Flow Rate Fraction of Inspired Oxygen 09/28/24 10:48 09/28/24 11:00 09/28/24 11:15 Temperature Pulse Rate 114 H 115 H 116 H Respiratory Rate Blood Pressure 97/56 L 94/52 L Pulse Oximetry 93 Oxygen Delivery Mechanical Ventilation Oxygen Flow Rate Fraction of Inspired Oxygen 70 09/28/24 11:15 09/28/24 11:30 09/28/24 11:31 Temperature Pulse Rate 116 H 118 H 118 H Respiratory Rate Blood Pressure 94/52 L 96/56 L 96/56 L Pulse Oximetry Oxygen Delivery Oxygen Flow Rate Fraction of Inspired Oxygen 09/28/24 11:45 09/28/24 11:45 09/28/24 12:00 Temperature Pulse Rate 120 H 119 H 121 H Respiratory Rate Blood Pressure 105/70 105/70 105/69 Pulse Oximetry Oxygen Delivery Oxygen Flow Rate Fraction of Inspired Oxygen 09/28/24 12:00 09/28/24 12:00 09/28/24 12:00 Temperature 37.6 C Pulse Rate 121 H Respiratory Rate 28 H Blood Pressure 105/69 Pulse Oximetry 95 Oxygen Delivery Mechanical Ventilation Oxygen Flow Rate Fraction of Inspired Oxygen 70 70 09/28/24 12:00 09/28/24 12:00 09/28/24 12:03 Temperature Pulse Rate 121 H 121 H 121 H Respiratory Rate 28 H Blood Pressure 105/69 Pulse Oximetry Oxygen Delivery Oxygen Flow Rate Fraction of Inspired Oxygen 09/28/24 12:03 09/28/24 12:04 09/28/24 12:15 Temperature Pulse Rate 121 H 121 H 124 H Respiratory Rate 28 H 28 H Blood Pressure 105/69 106/67 Pulse Oximetry Oxygen Delivery Oxygen Flow Rate Fraction of Inspired Oxygen 09/28/24 12:16 09/28/24 12:30 09/28/24 12:43 Temperature Pulse Rate 121 H 125 H 126 H Respiratory Rate 28 H 28 H Blood Pressure 105/69 107/72 Pulse Oximetry Oxygen Delivery Oxygen Flow Rate Fraction of Inspired Oxygen 09/28/24 12:43 09/28/24 12:44 09/28/24 12:44 Temperature Pulse Rate 126 H 126 H 126 H Respiratory Rate 28 H Blood Pressure 107/72 107/72 Pulse Oximetry Oxygen Delivery Oxygen Flow Rate Fraction of Inspired Oxygen 09/28/24 12:45 09/28/24 12:46 09/28/24 12:49 Temperature Pulse Rate 124 H 126 H 126 H Respiratory Rate 28 H 28 H Blood Pressure 106/71 106/71 Pulse Oximetry Oxygen Delivery Oxygen Flow Rate Fraction of Inspired Oxygen 09/28/24 13:00 09/28/24 13:15 09/28/24 13:30 Temperature Pulse Rate 124 H 124 H 124 H Respiratory Rate Blood Pressure 103/68 96/69 L 99/66 L Pulse Oximetry Oxygen Delivery Oxygen Flow Rate Fraction of Inspired Oxygen 09/28/24 13:45 09/28/24 14:00 09/28/24 14:00 Temperature Pulse Rate 125 H 125 H 127 H Respiratory Rate Blood Pressure 107/65 107/60 107/60 Pulse Oximetry Oxygen Delivery Oxygen Flow Rate Fraction of Inspired Oxygen 09/28/24 14:00 09/28/24 14:00 09/28/24 14:00 Temperature 38.4 C H Pulse Rate 124 H 127 H 127 H Respiratory Rate 28 H 28 H Blood Pressure 107/60 Pulse Oximetry 96 Oxygen Delivery Oxygen Flow Rate Fraction of Inspired Oxygen 09/28/24 14:00 09/28/24 14:00 09/28/24 14:14 Temperature 38.4 C H Pulse Rate 127 H 127 H 125 H Respiratory Rate 28 H 28 H 28 H Blood Pressure 107/60 107/60 Pulse Oximetry 95 Oxygen Delivery Oxygen Flow Rate Fraction of Inspired Oxygen 09/28/24 14:36 09/28/24 14:39 09/28/24 14:42 Temperature Pulse Rate 123 H 124 H 123 H Respiratory Rate 28 H Blood Pressure 138/65 Pulse Oximetry 94 Oxygen Delivery Mechanical Ventilation Oxygen Flow Rate Fraction of Inspired Oxygen 70 09/28/24 14:45 09/28/24 14:45 09/28/24 14:57 Temperature Pulse Rate 124 H 123 H 124 H Respiratory Rate 28 H Blood Pressure 128/68 131/73 Pulse Oximetry Oxygen Delivery Oxygen Flow Rate Fraction of Inspired Oxygen 09/28/24 15:04 09/28/24 15:23 09/28/24 15:23 Temperature 38.4 C H Pulse Rate 125 H 125 H Respiratory Rate Blood Pressure 136/69 134/71 Pulse Oximetry Oxygen Delivery Oxygen Flow Rate Fraction of Inspired Oxygen 09/28/24 15:50 09/28/24 16:00 09/28/24 16:00 Temperature Pulse Rate 125 H 126 H 126 H Respiratory Rate 28 H 126 H Blood Pressure 135/67 132/65 Pulse Oximetry Oxygen Delivery Oxygen Flow Rate Fraction of Inspired Oxygen 09/28/24 16:00 09/28/24 16:00 09/28/24 16:00 Temperature Pulse Rate 126 H 127 H Respiratory Rate 28 H Blood Pressure Pulse Oximetry Oxygen Delivery Mechanical Ventilation Oxygen Flow Rate Fraction of Inspired Oxygen 70 09/28/24 16:00 09/28/24 16:00 09/28/24 16:03 Temperature 38.3 C H Pulse Rate 126 H 127 H Respiratory Rate 28 H Blood Pressure 132/65 132/65 Pulse Oximetry 91 Oxygen Delivery Oxygen Flow Rate Fraction of Inspired Oxygen 70 09/28/24 16:23 09/28/24 16:41 09/28/24 16:41 Temperature Pulse Rate 127 H 127 H 127 H Respiratory Rate 28 H Blood Pressure 123/64 120/61 Pulse Oximetry Oxygen Delivery Oxygen Flow Rate Fraction of Inspired Oxygen 09/28/24 17:11 Temperature Pulse Rate 126 H Respiratory Rate Blood Pressure 117/58 L Pulse Oximetry Oxygen Delivery Oxygen Flow Rate Fraction of Inspired Oxygen Intake/Output Intake/Output: Intake & Output 09/25/24 09/26/24 09/27/24 09/28/24 23:59 23:59 23:59 23:59 Intake Total 1752.6 1775.7 2092.0 1681.7 Output Total 2160 3202 1170 2032 Balance -407.4 -1426.3 922.0 -350.3 Meds/Results Medications: Active Medications Generic Name Dose Route Start Last Admin Trade Name Freq PRN Reason Stop Dose Admin Acetaminophen 650 mg 09/20/24 19:03 09/28/24 15:23 Acetaminophen Elixir 325 Mg/10.15 Ml Udc PO 650 mg Q4H PRN Administration Mild Pain (1-3) or Fever Acetylcysteine 200 mg 09/27/24 08:00 09/28/24 14:38 Acetylcysteine 20% Inhal Soln 800 Mg/4 Ml Vial INHALATION 200 mg Q6HRT TOMY Administration Albuterol/Ipratropium 3 ml 09/22/24 08:26 09/28/24 14:38 Ipratropium 0.5 Mg/Albuterol Sulfate 2.5 Mg Ampul.Neb 3 Ml INHALATION 3 ml Q6HRT PRN Administration wheezing Dextrose 12.5 gm 09/20/24 03:19 Dextrose 50% 25 Gm/50 Ml Syringe IV PUSH PRN PRN Hypoglycemia Protocol Dornase Jaspreet 2.5 mg 09/27/24 08:00 09/28/24 07:50 Dornase Jaspreet Inh Soln 1 Mg/Ml 2.5 Ml Amp INHALATION 2.5 mg Q12HRT TOMY Administration Enoxaparin Sodium 30 mg 09/27/24 09:00 09/28/24 08:17 Enoxaparin 30 Mg/0.3 Ml Syringe SUB-Q 30 mg DAILY TOMY Administration Epoetin Jaspreet-epbx 10,000 units 09/28/24 18:33 09/28/24 11:47 Epoetin Jaspreet-Epbx 10,000 Units/Ml Vial IV PUSH 09/28/24 18:34 10,000 units ONCE ONE Administration Glucagon 1 mg 09/20/24 03:19 Glucagon For Inj 1 Mg Vial IM PRN PRN Hypoglycemia Protocol Glucose 15 gm 09/20/24 03:19 Glucose Oral Gel 15 Gm Of Glucse In 37.5 Gm Tube PO PRN PRN Hypoglycemia Protocol Dextrose 1,000 mls @ 100 mls/hr 09/20/24 03:19 Dextrose 5% 1,000 Ml IVPB PRN PRN Hypoglycemia Protocol Midazolam HCl 100 mg in 100 mls @ 5 mls/hr 09/20/24 22:10 09/28/24 16:41 Versed 100 Mg/Ns 100 Ml IV CONT 5 mg/hr .Q20H TOMY 5 mls/hr Titration Protocol 5 MG/HR Albumin Human 50 mls @ 999 mls/hr 09/26/24 12:07 09/28/24 10:41 Albutein IVPB 10/26/24 12:06 999 mls/hr Q10M PRN Administration HYPOTENSION Propofol 100 mls @ 14.574 mls/hr 09/27/24 10:15 09/28/24 16:00 Diprivan IV CONT 35 mcg/kg/min .Q6H52M TOMY 14.57 mls/hr Titration Protocol 35 MCG/KG/MIN Norepinephrine Bitartrate 8 mg in 250 mls @ 3.75 mls/hr 09/27/24 10:15 09/28/24 17:11 Levophed 8 Mg/D5w 250 Ml IV CONT 2 mcg/min .Q24H TOMY 3.75 mls/hr Titration Protocol 2 MCG/MIN Meropenem 1 gm in 100 mls @ 200 mls/hr 09/27/24 18:00 09/27/24 18:14 IVPB Infused Q24H TOMY Infusion Cisatracurium Besylate 200 mg/ 100 mls @ 11.451 mls/hr 09/28/24 02:05 09/28/24 16:00 Sodium Chloride IV CONT 5.5 mcg/kg/min .Q8H44M TOMY 11.45 mls/hr Titration Protocol 5.5 MCG/KG/MIN Insulin Human Regular 100 100 mls @ 4 mls/hr 09/28/24 08:30 09/28/24 17:11 units/ Sodium Chloride IV CONT 4 units/hr .Q24H TOMY 4 mls/hr Titration Protocol 4 UNITS/HR Linezolid 600 mg in 300 mls @ 300 mls/hr 09/29/24 02:00 Zyvox IVPB Q12H TOMY Insulin Aspart 4 - 8 units 09/21/24 08:40 09/28/24 04:43 Insulin Aspart (*Bkc) 100 Units/Ml SUB-Q 8 units Q4H TOMY Administration Protocol Insulin Glargine 40 units 09/22/24 09:00 09/27/24 09:10 Insulin Glargine (*Bkc) 100 Units/Ml SUB-Q 40 units QAM TOMY Administration Levothyroxine Sodium 100 mcg 09/21/24 06:30 09/28/24 05:25 Levothyroxine Sodium 100 Mcg Tablet FEED TUBE 100 mcg DAILY@0630 TOMY Administration Miscellaneous Information 0 each 09/29/24 00:01 Ivs In Normal Saline XX 10/29/24 00:00 CLARIFY TOMY Multi-Ingred Cream/Lotion/Oil/Oint 1 applic 09/20/24 21:00 09/27/24 20:57 Mineral Oil/White Petrolatum Ointment EACH EYE 1 applic Q12HR TOMY Administration Pantoprazole Sodium 40 mg 09/20/24 09:00 09/28/24 08:17 Pantoprazole Sodium Iv 40 Mg Vial IV PUSH 40 mg QAM TOMY Administration Sodium Chloride 10 ml 09/20/24 14:00 09/28/24 05:25 Central Line Flush IV PUSH 10 ml Q8HR TOMY Administration Sodium Chloride 20 ml 09/20/24 06:40 Central Line Flush IV PUSH PRN PRN after blood draws Radiology Results: ITS Impressions Chest CTA 09/20/24 05:30 Impression: Bilateral multifocal pneumonia, most extensively involving the lower lobes. No pulmonary embolus seen. Abdomen X-Ray 09/20/24 05:35 Impression: NG tube in satisfactory position. Abdomen Ultrasound 09/22/24 15:02 IMPRESSION: 1: Gallbladder wall thickening, nonspecific. No evidence for gallstones. 2: Fatty infiltration of the liver. Renal Ultrasound 09/22/24 15:14 IMPRESSION: 1. Normal kidneys without hydronephrosis. Chest X-Ray 09/28/24 06:02 Impression: 1: Stable extensive bilateral airspace disease. Differential diagnosis includes pneumonia, edema and/or ARDS. Labs Labs: Laboratory Results - last 24 hr 09/27/24 09/27/24 09/28/24 05:56 20:40 01:07 WBC RBC Hgb Hct MCV MCH MCHC RDW Plt Count MPV Immature Gran % (Auto) Neut % (Auto) Lymph % (Auto) Grainger % (Auto) Eos % (Auto) Baso % (Auto) Lymph # (Auto) Grainger # (Auto) Eos # (Auto) Baso # (Auto) Abs Immat Gran (auto) Absolute Neuts (auto) Absolute Nucleated RBC Total Counted Neutrophils % (Manual) Band Neutrophils % Lymphocytes % (Manual) Monocytes % (Manual) Nucleated RBC % Abs Neuts (Manual) Abs Lymphs (Manual) Abs Monocytes (Manual) Platelet Estimate Hypochromasia Anisocytosis Target Cells Schistocytes Puncture Site ABG pH ABG pCO2 ABG pO2 ABG PO2/FiO2 Ratio ABG HCO3 ABG O2 Saturation ABG O2 Content ABG Base Excess A-a Gradient Oxyhemoglobin Carboxyhemoglobin Methemoglobin Reduced Hemoglobin Total Hemoglobin O2 Delivery Device O2 Liters/Min Minute Volume Vent Rate Vent Mode FiO2 Tidal Volume PEEP Peak Inspir Pressure Pressure Support Sodium Potassium Chloride Carbon Dioxide Anion Gap BUN Creatinine Estim Creat Clear Calc Estimated GFR Glucose POC Capillary Glucose 315 H 417 H Calcium Phosphorus Magnesium Total Bilirubin AST ALT Alkaline Phosphatase Total Protein Albumin Hep B Core Total Ab Non-reactive 09/28/24 09/28/24 09/28/24 02:24 03:27 04:42 WBC RBC Hgb Hct MCV MCH MCHC RDW Plt Count MPV Immature Gran % (Auto) Neut % (Auto) Lymph % (Auto) Grainger % (Auto) Eos % (Auto) Baso % (Auto) Lymph # (Auto) Grainger # (Auto) Eos # (Auto) Baso # (Auto) Abs Immat Gran (auto) Absolute Neuts (auto) Absolute Nucleated RBC Total Counted Neutrophils % (Manual) Band Neutrophils % Lymphocytes % (Manual) Monocytes % (Manual) Nucleated RBC % Abs Neuts (Manual) Abs Lymphs (Manual) Abs Monocytes (Manual) Platelet Estimate Hypochromasia Anisocytosis Target Cells Schistocytes Puncture Site Right radial ABG pH 7.256 L* ABG pCO2 54.6 H ABG pO2 117.5 H ABG PO2/FiO2 Ratio 1.47 ABG HCO3 23.7 ABG O2 Saturation 97.6 ABG O2 Content 11.7 L ABG Base Excess -3.4 A-a Gradient 395.6 Oxyhemoglobin 96.7 Carboxyhemoglobin 1.4 Methemoglobin 0.3 Reduced Hemoglobin 1.6 Total Hemoglobin 8.4 L O2 Delivery Device Ventilator O2 Liters/Min Not Reportable Minute Volume Not Reportable Vent Rate 28 Vent Mode Cmv FiO2 80 Tidal Volume 340 PEEP 12 Peak Inspir Pressure Not Reportable Pressure Support Not Reportable Sodium Potassium Chloride Carbon Dioxide Anion Gap BUN Creatinine Estim Creat Clear Calc Estimated GFR Glucose POC Capillary Glucose 357 H 370 H 374 H Calcium Phosphorus Magnesium Total Bilirubin AST ALT Alkaline Phosphatase Total Protein Albumin Hep B Core Total Ab 09/28/24 09/28/24 09/28/24 05:31 05:33 07:46 WBC 36.6 H RBC 3.09 L Hgb 7.7 L Hct 24.3 L MCV 78.6 L MCH 24.9 L MCHC 31.7 L RDW 19.5 H Plt Count 169 MPV 12.3 H Immature Gran % (Auto) Not Reportable Neut % (Auto) Not Reportable Lymph % (Auto) Not Reportable Grainger % (Auto) Not Reportable Eos % (Auto) Not Reportable Baso % (Auto) Not Reportable Lymph # (Auto) Not Reportable Grainger # (Auto) Not Reportable Eos # (Auto) Not Reportable Baso # (Auto) Not Reportable Abs Immat Gran (auto) Not Reportable Absolute Neuts (auto) Not Reportable Absolute Nucleated RBC Not Reportable Total Counted 100 Neutrophils % (Manual) 80 H Band Neutrophils % 11 H Lymphocytes % (Manual) 6 L Monocytes % (Manual) 3 Nucleated RBC % Not Reportable Abs Neuts (Manual) 33.30 H Abs Lymphs (Manual) 2.19 Abs Monocytes (Manual) 1.09 H Platelet Estimate Adequate Hypochromasia 2+ Anisocytosis 2+ Target Cells 1+ Schistocytes None seen Puncture Site ABG pH ABG pCO2 ABG pO2 ABG PO2/FiO2 Ratio ABG HCO3 ABG O2 Saturation ABG O2 Content ABG Base Excess A-a Gradient Oxyhemoglobin Carboxyhemoglobin Methemoglobin Reduced Hemoglobin Total Hemoglobin O2 Delivery Device O2 Liters/Min Minute Volume Vent Rate Vent Mode FiO2 Tidal Volume PEEP Peak Inspir Pressure Pressure Support Sodium 134 L Potassium 4.5 Chloride 99 Carbon Dioxide 23 Anion Gap 12 BUN 71 H D Creatinine 2.88 H Estim Creat Clear Calc 22 Estimated GFR 18 L Glucose 401 H POC Capillary Glucose 393 H 406 H Calcium 8.7 Phosphorus 4.2 Magnesium 2.3 Total Bilirubin 0.9 AST 55 H ALT 115 H Alkaline Phosphatase 524 H Total Protein 6.0 L Albumin 2.6 L Hep B Core Total Ab 09/28/24 09/28/24 09/28/24 09:47 10:34 11:56 WBC RBC Hgb Hct MCV MCH MCHC RDW Plt Count MPV Immature Gran % (Auto) Neut % (Auto) Lymph % (Auto) Grainger % (Auto) Eos % (Auto) Baso % (Auto) Lymph # (Auto) Grainger # (Auto) Eos # (Auto) Baso # (Auto) Abs Immat Gran (auto) Absolute Neuts (auto) Absolute Nucleated RBC Total Counted Neutrophils % (Manual) Band Neutrophils % Lymphocytes % (Manual) Monocytes % (Manual) Nucleated RBC % Abs Neuts (Manual) Abs Lymphs (Manual) Abs Monocytes (Manual) Platelet Estimate Hypochromasia Anisocytosis Target Cells Schistocytes Puncture Site ABG pH ABG pCO2 ABG pO2 ABG PO2/FiO2 Ratio ABG HCO3 ABG O2 Saturation ABG O2 Content ABG Base Excess A-a Gradient Oxyhemoglobin Carboxyhemoglobin Methemoglobin Reduced Hemoglobin Total Hemoglobin O2 Delivery Device O2 Liters/Min Minute Volume Vent Rate Vent Mode FiO2 Tidal Volume PEEP Peak Inspir Pressure Pressure Support Sodium Potassium Chloride Carbon Dioxide Anion Gap BUN Creatinine Estim Creat Clear Calc Estimated GFR Glucose POC Capillary Glucose 341 H 324 H 164 H Calcium Phosphorus Magnesium Total Bilirubin AST ALT Alkaline Phosphatase Total Protein Albumin Hep B Core Total Ab 09/28/24 09/28/24 09/28/24 12:17 13:11 14:31 WBC RBC Hgb Hct MCV MCH MCHC RDW Plt Count MPV Immature Gran % (Auto) Neut % (Auto) Lymph % (Auto) Grainger % (Auto) Eos % (Auto) Baso % (Auto) Lymph # (Auto) Grainger # (Auto) Eos # (Auto) Baso # (Auto) Abs Immat Gran (auto) Absolute Neuts (auto) Absolute Nucleated RBC Total Counted Neutrophils % (Manual) Band Neutrophils % Lymphocytes % (Manual) Monocytes % (Manual) Nucleated RBC % Abs Neuts (Manual) Abs Lymphs (Manual) Abs Monocytes (Manual) Platelet Estimate Hypochromasia Anisocytosis Target Cells Schistocytes Puncture Site Left radial ABG pH 7.350 ABG pCO2 51.5 H ABG pO2 106.5 H ABG PO2/FiO2 Ratio 1.52 ABG HCO3 27.8 H ABG O2 Saturation 97.6 ABG O2 Content 12.4 L ABG Base Excess 1.7 A-a Gradient 337.2 Oxyhemoglobin 96.6 Carboxyhemoglobin Methemoglobin Reduced Hemoglobin Total Hemoglobin 9.0 L O2 Delivery Device Ventilator O2 Liters/Min Not Reportable Minute Volume Not Reportable Vent Rate 28 Vent Mode Cmv FiO2 70 Tidal Volume 370 PEEP 12 Peak Inspir Pressure Not Reportable Pressure Support Not Reportable Sodium Potassium Chloride Carbon Dioxide Anion Gap BUN Creatinine Estim Creat Clear Calc Estimated GFR Glucose POC Capillary Glucose 162 H 217 H Calcium Phosphorus Magnesium Total Bilirubin AST ALT Alkaline Phosphatase Total Protein Albumin Hep B Core Total Ab 09/28/24 09/28/24 15:54 17:09 WBC RBC Hgb Hct MCV MCH MCHC RDW Plt Count MPV Immature Gran % (Auto) Neut % (Auto) Lymph % (Auto) Grainger % (Auto) Eos % (Auto) Baso % (Auto) Lymph # (Auto) Grainger # (Auto) Eos # (Auto) Baso # (Auto) Abs Immat Gran (auto) Absolute Neuts (auto) Absolute Nucleated RBC Total Counted Neutrophils % (Manual) Band Neutrophils % Lymphocytes % (Manual) Monocytes % (Manual) Nucleated RBC % Abs Neuts (Manual) Abs Lymphs (Manual) Abs Monocytes (Manual) Platelet Estimate Hypochromasia Anisocytosis Target Cells Schistocytes Puncture Site ABG pH ABG pCO2 ABG pO2 ABG PO2/FiO2 Ratio ABG HCO3 ABG O2 Saturation ABG O2 Content ABG Base Excess A-a Gradient Oxyhemoglobin Carboxyhemoglobin Methemoglobin Reduced Hemoglobin Total Hemoglobin O2 Delivery Device O2 Liters/Min Minute Volume Vent Rate Vent Mode FiO2 Tidal Volume PEEP Peak Inspir Pressure Pressure Support Sodium Potassium Chloride Carbon Dioxide Anion Gap BUN Creatinine Estim Creat Clear Calc Estimated GFR Glucose POC Capillary Glucose 336 H 320 H Calcium Phosphorus Magnesium Total Bilirubin AST ALT Alkaline Phosphatase Total Protein Albumin Hep B Core Total Ab Quality VTE Prophylaxis VTE prophylaxis: pharmacologic ordered
[2024-09-28] MEDS: MEROPENEM 1 GM/NS 100 ML 1 GM/100 ML BAG IVPB (18:21)
[2024-09-28] MEDS: MIDAZOLAM 100MG/NS 100ML(*CRX) 100 MG/100 ML BAG IV CONT (18:25)
[2024-09-28 18:41] LABS: Glucose Point of Care 310 mg/dl (65-105)
[2024-09-28 19:17] LABS: Glucose Point of Care 293 mg/dl (65-105)
[2024-09-28 19:54] LABS: Glucose Point of Care 275 mg/dl (65-105)
[2024-09-28] MEDS: CISATRACURIUM BESYLATE 200 MG in SODIUM CHLORIDE 0.9% IV 80 ML 10.41 ML IV CONT (20:00)
[2024-09-28 20:31] LABS: Glucose Point of Care 262 mg/dl (65-105)
--- NOTE | 2024-09-28 21:14 | PC.NURSE ---
2030 Updated Annabelle from [facility] concerning Levophed; sedation; paralytic; hemodialysis, urinary output and prone position. [facility] plans to follow case, patient is listed on the Donor Registry.
[2024-09-28 21:31] LABS: Glucose Point of Care 247 mg/dl (65-105)
[2024-09-28 22:45] LABS: Glucose Point of Care 232 mg/dl (65-105)
[2024-09-28 23:58] LABS: Glucose Point of Care 197 mg/dl (65-105)
[2024-09-29] VITALS (51 sets, daily range): BP systolic 86–116; BP diastolic 55–67; PULSE 102–122; RESP 27–28; TEMP 37.2–38.1; O2SAT 90–96
[2024-09-29 00:29] LABS: Glucose Point of Care 184 mg/dl (65-105)
[2024-09-29 01:34] LABS: Glucose Point of Care 205 mg/dl (65-105)
[2024-09-29] MEDS: PROPOFOL IV EMULSION 100 ML 14.57 MG IV CONT ×4 (02:00→20:52)
[2024-09-29 02:32] LABS: Glucose Point of Care 227 mg/dl (65-105)
[2024-09-29] MEDS: IPRATROPIUM 0.5 MG/ALBUTEROL SULFATE 2.5 MG AMPUL.NEB 3 ML INHALATION (02:46)
[2024-09-29] MEDS: ACETYLCYSTEINE 20% INHAL SOLN 800 MG/4 ML VIAL 200 MG INHALATION ×2 (02:47→07:15)
[2024-09-29] MEDS: LINEZOLID 600 MG/300 ML 600 MG/300 ML SOLN 300 MG IVPB ×2 (03:06→14:53)
[2024-09-29 03:36] LABS: Glucose Point of Care 244 mg/dl (65-105)
[2024-09-29 04:42] LABS: Glucose Point of Care 313 mg/dl (65-105)
[2024-09-29 04:47] LABS: Base Excess ABG -0.9 mEq/l (+/-2.0); Carboxyhemoglobin 1.1 % THb (0-2.0); Fractional Inspired Oxygen 80 %; HCO3 ABG 25.4 mEq/l (22.0-26.0); Methemoglobin ABG 0.2 %THb (0-1.5); Modified Allen's Test Pass; Oxygen Content ABG 11.3 %vol (16.0-22.0); Oxygen Saturation ABG 95.3 % (95.0-100.0); Oxyhemoglobin 94.2 % THb (90.0-100.0); PCO2 ABG 51.1 mmHg (35.0-45.0); PO2 ABG 83.8 mmHg (80.0-100.0); PO2 FiO2 Ratio Arterial Blood 1.05 %; Reduced Hemoglobin 4.5 %THb (0-5.0); Site Drawn LEFT RADIAL; Total Hemoglobin 8.4 g/dL (12.0-18.0); pH ABG 7.315 (7.350-7.450)
[2024-09-29 04:48] LABS: Device VENTILATOR
[2024-09-29 04:49] LABS: Arterial Blood Gas PEEP 12 cmH2O; Arterial Blood Gas Tidal Volume 370 ml; Arterial Blood Gas Vent Mode CMV; Arterial Blood Gas Ventilator rate 26 /MIN
[2024-09-29] MEDS: CISATRACURIUM BESYLATE 200 MG in SODIUM CHLORIDE 0.9% IV 80 ML 10.41 ML IV CONT (05:46)
[2024-09-29] MEDS: INSULIN HUMAN REGULAR (*BKC) 100 UNITS in SODIUM CHLORIDE 0.9% IV 99 ML IV CONT (05:49)
[2024-09-29] MEDS: LEVOTHYROXINE SODIUM 100 MCG TABLET FEED TUBE (05:55)
[2024-09-29] MEDS: CENTRAL LINE FLUSH 10 ML IV PUSH ×3 (05:55→20:46)
[2024-09-29 06:02] LABS: Glucose Point of Care 288 mg/dl (65-105)
[2024-09-29 06:13] LABS: Hematocrit 24.3 % (37.0-47.0); Hemoglobin 7.8 g/dL (12.0-15.0); Mean Corpuscular HGB Conc 32.1 g/dl (32-36); Mean Corpuscular Hemoglobin 24.8 pg (26-34); Mean Corpuscular Volume 77.4 fl (80-100); Mean Platelet Volume 11.5 fl (7.4-10.4); Platelet Count Result 189 k/mm3 (150-375); Red Blood Count 3.14 M/mm3 (4.2-5.4); Red Cell Distribution Width 19.7 % (11.5-14.5)
[2024-09-29 06:26] LABS: Glucose Point of Care 277 mg/dl (65-105)
[2024-09-29 06:29] LABS: Alanine Aminotransferase 71 U/L (6-35); Albumin Level 2.5 g/dL (3.5-5.1); Alkaline Phosphatase 558 U/L (38-126); Anion Gap 11 mmol/L (4-12); Aspartate Amino Transferase 63 U/L (14-36); Bilirubin,Total 0.8 mg/dL (0.2-1.3); Blood Urea Nitrogen 62 mg/dL (7-17); Calcium 9.1 mg/dL (8.4-10.2); Carbon Dioxide 26 mmol/L (22-30); Chloride 96 mmol/L (98-107); Estimated CRCL calculation 26 ml/min; Estimated Glomerular Filt Rate 22; Glucose 294 mg/dL (65-110); Magnesium 2.3 mg/dL (1.6-2.3); Phosphorus 3.8 mg/dL (2.5-4.5); Potassium 4.7 mmol/L (3.4-5.0); Sodium 133 mmol/L (137-145); Triglycerides 485 mg/dL (<150)
[2024-09-29] MEDS: ACETAMINOPHEN ELIXIR 325 MG/10.15 ML UDC 650 MG PO (06:51)
[2024-09-29 06:54] LABS: Glucose Point of Care 302 mg/dl (65-105)
[2024-09-29 07:08] LABS: White Blood Count 51.1 K/mm3 (4.5-10.0)
[2024-09-29 07:09] LABS: Anisocytosis 2+; Band Neutrophils Percent 9 % (0-6); Eosinophils Absolute Manual 0.51 K/mm3 (0.02-0.50); Eosinophils Percent Manual 1 % (0-4); Lymphocytes Absolute Manual 2.04 K/mm3 (1.1-4.5); Lymphocytes Percent Manual 4 % (18-44); Monocytes Absolute Manual 2.55 K/mm3 (0.1-0.90); Monocytes Percent Manual 5 % (3-9); Neutrophils Absolute Manual 45.99 K/mm3 (1.7-7.2); Neutrophils Percent Manual 81 % (46-73); Platelet Estimate Adequate (Adequate); Total Cells Counted 100
[2024-09-29 07:10] LABS: Schistocytes None Seen
[2024-09-29] MEDS: DORNASE ALFA INH SOLN 1 MG/ML 2.5 ML AMP 2.5 MG INHALATION (07:15)
[2024-09-29 08:19] LABS: Glucose Point of Care 290 mg/dl (65-105)
[2024-09-29] MEDS: ENOXAPARIN 30 MG/0.3 ML SYRINGE SUB-Q (09:01)
[2024-09-29] MEDS: PANTOPRAZOLE SODIUM IV 40 MG VIAL IV PUSH (09:01)
[2024-09-29] MEDS: MINERAL OIL/WHITE PETROLATUM OINTMENT 1 APPLIC EACH EYE ×2 (09:01→20:46)
--- NOTE | 2024-09-29 09:06 | PCNFU ---
Nutrition Follow-Up Complete: Suboptimal Energy Intake as related to mechanical ventilation as evidenced by NPO. Goal: Meet estimated nutritional needs. Patient will continue current goal. Pt current nutrition is Nepro at 40 ml/hr. Last recorded weight is 69.3 kg, up from 59.9 kg on admit. Bowel Motility: Last reported BM 09/25 Labs Reviewed:Glu 294, BUN 62, GFR 22, Cr 2.46, Na 133,TG 485 Meds Noted:Versed, Propofol 35 ukju=493 kcal, Lantus, Insulin regular. Skin:WNL Additional Notes: Patient remains on a mechanical vent. Tube feedings are being tolerated of Nepro at 40 ml/hr. Total Nutrition: 1969 kcal/71 gm protein/1063 ml water. Flush 30 ml q 4 hours. Discussed patient with [facility]st today, possible dialysis today 09/29 or tomorrow 09/30. Agree with diet orders at this time. Will monitor weight, labs, skin, diet order, meds every Wednesday and Wednesday.
[2024-09-29 09:24] LABS: Glucose Point of Care 270 mg/dl (65-105)
[2024-09-29] MEDS: EPOPROSTENOL SODIUM 0.5 MG VIAL 1 MG INHALATION ×3 (10:01→21:30)
[2024-09-29 10:06] LABS: Glucose Point of Care 237 mg/dl (65-105)
[2024-09-29 11:01] LABS: Glucose Point of Care 224 mg/dl (65-105)
[2024-09-29 12:22] LABS: Glucose Point of Care 187 mg/dl (65-105)
[2024-09-29 13:19] LABS: Glucose Point of Care 190 mg/dl (65-105)
--- NOTE | 2024-09-29 13:35 | WPDINTPN ---
Progress Note: A&P Assessment and Plan (1) Spontaneous pneumothorax: Code(s): J93.83 - Other pneumothorax Status: Acute Assessment and Plan: 09/25/2024: In the afternoon patient started to desaturate with O2 sats in the mid 80s, peep was increased, FiO2 was increased with no improvement, on auscultation left-sided breath sounds were decreased, stat chest x-ray showed spontaneous pneumothorax. Chest tube was inserted on 09/25, by surgery. Chest x-ray post chest tube insertion showed resolution of the pneumothorax with improvement in O2 sats. -surgery to manage chest tube -no air leak noted (2) Acute hypoxic respiratory failure: Code(s): J96.01 - Acute respiratory failure with hypoxia Status: Acute Assessment and Plan: Acute respiratory failure secondary to influenza A and pneumonia proceeding to ARDS 09/20: Intubated in the ER Patient now intubated and on mechanical ventilation ABG reviewed. will allow permissive hypercapnia. -tidal volume 340 mL, peep 12, FiO2 80%. Continue to wean FiO2 to maintain O2 sats > 92% Continue sedation with Versed and propofol Bronchodilators 09/27: increased FiO2 requirements, on high Ventilatory support. Added Pulmozyme and Mucomyst nebs. Placed pt in prone position 09/28: Chest x-ray unchanged, ABGs reviewed, increase tidal volume, continue prone positioning, continue Pulmozyme and Mucomyst nebs 09/29: Patient placed in supine position after 48 hours. Started on [place] Discussed CT chest results with Radiology and pulmonology, most likely related to Staph aureus, multiple cavities renal lesions. Recommended transferring patient for higher level of care for infectious disease to evaluate and treat 09/29/2024: CTA chest abdomen and pelvis IMPRESSION: 1. No evident pulmonary embolism. Sensitivity decreased in the segmental and subsegmental pulmonary arteries due to combination of respiratory motion and streak artifact. 2. Significant interval progression in diffuse bilateral lung disease with interval development of numerous cavitary lesions throughout both lungs consistent with cavitary pneumonia and ARDS. 3. Left chest tube in the left major fissure. No pneumothorax or pleural effusion. 4. Very small amount of ascites in the pelvis. No abscess or other acute intra-abdominal/pelvic process. 09/20: CTA chest Bilateral multifocal pneumonia, most extensively involving the lower lobes. No pulmonary embolus seen. (3) Uncontrolled diabetes mellitus: Status: Acute Assessment and Plan: SSI Hyperglycemia with blood sugars in the 300s to 400s, -continue insulin infusion -off Lantus Continue tube feeds (4) Septic shock: Code(s): A41.9 - Sepsis, unspecified organism; R65.21 - Severe sepsis with septic shock Status: Acute Assessment and Plan: Septic shock secondary to pneumonia Hold further IV fluids off Stress dose steroids 09/19: Blood cultures are negative till now 09/21: Sputum cultures growing Staph aureus 09/27: Switched vancomycin and cefepime to linezolid and meropenem, WBC count trending up, afebrile, bandemia -completed 5 day course of doxycycline 09/27: Repeat Blood cultures growing Gram-positive cocci in clusters 1 of 2 bottles 09/27: Repeat sputum cultures growing staph aureus CT scan of the chest abdomen and pelvis as above Continue Levophed at 5 mcg/min for adequate end organ perfusion, maintain MAP > 65 mg Or SBP> 100 mmHg. (5) PNA (pneumonia): Code(s): J18.9 - Pneumonia, unspecified organism Status: Acute Assessment and Plan: See above (6) Hypothyroidism: Code(s): E03.9 - Hypothyroidism, unspecified Status: Acute Assessment and Plan: Continue levothyroxine Normal TSH (7) Influenza: Code(s): J11.1 - Influenza due to unidentified influenza virus with other respiratory manifestations Status: Acute Assessment and Plan: Isolation Status post Tamiflu (8) SCAR (acute kidney injury): Code(s): N17.9 - Acute kidney failure, unspecified Status: Acute Assessment and Plan: Patient presented with elevated creatinine which has been gradually getting worse This is likely multifactorial secondary to sepsis, shock possible contrast induced injury. 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 Nurse Healthcare Manager feels that urine output has improved over last 24 hours. Recommends continuing Lasix for another 24 hours and re-evaluate need for dialysis 09/25: Worsening and creatinine and BUN despite diuretics, will discuss with Nephrology regarding dialysis 09/26: Discussed with Nephrology, patient is making good urine despite but her BUN and creatinine trending up, discussed with family regarding dialysis, family okay with dialysis. HD catheter placed in left IJ. Started HD Dialysis per nephrology (9) Shock liver: Code(s): K72.00 - Acute and subacute hepatic failure without coma Status: Acute Assessment and Plan: Elevated AST and ALT likely secondary to shock liver and cholestasis secondary to sepsis and shock US right upper quadrant ultrasound shows gallbladder wall thickening nonspecific no evidence of gallstones. Fatty infiltration of the liver Negative hepatitis panel LFTs improving, bilirubin is normal Continue to monitor (10) Thrombocytopenia: Code(s): D69.6 - Thrombocytopenia, unspecified Status: Acute Assessment and Plan: Gradual in platelet count since admission likely multifactorial secondary to sepsis medications and hemodilution -platelets are back to normal, continue Lovenox Plan DVT prophylaxis -SCDs, restarted Lovenox as thrombocytopenia has resolved, Stress ulcer prophylaxis -Protonix Nutrition - tolerating tube feeds Code Status - Full Code Total Critical Care Time: 40 minutes Discussed with patient's mother yesterday who is the POA, updated with patient's condition and plan of care. I answered all questions. Patient has been accepted to [facility], accepting physician Dr. PIRES. Patient will transfer was the have a bed available Due to a high probability of clinically significant, life threatening deterioration, the patient required my highest level of preparedness to intervene emergently and I personally spent this critical care time directly and personally managing the patient. This critical care time included obtaining a history; examining the patient; pulse oximetry; ordering and review of studies; arranging urgent treatment with development of a management plan; evaluation of patient's response to treatment; frequent reassessment; and discussions with other providers. It was exclusive of separately billable procedures and treating other patients and teaching time. Please see Assessment and Plan section and the rest of the note for further information on patient assessment and treatment This dictation may have been done utilizing a voice recognition system. Attempts have been made to correct errors. However, there may be uncorrected grammatical, spelling, and recognitions errors present. Subjective Date/time seen: 09/29/24 13:35 Interval history: Reason for consult: Acute respiratory failure, pneumonia, septic shock, acute kidney injury, pneumonia, hyperglycemia 09/25: Left pneumothorax status post chest tube by surgery 09/26: Left IJ dialysis catheter placed and started on hemodialysis 09/27: Placed in Prone position 09/29/2024: Patient seen examined the ICU, remains intubated on CMV mode of ventilation, peep of 12, 80% FiO2. Sedated with propofol and Versed infusion. Nimbex vent synchrony. Pre remains on Levophed at 5 mcg/hr. Anuric, hemodialysis done yesterday with 2000 mL in fluid removal. P febrile with T-max of 101.3? Review of Systems Review of Systems: ROS unobtainable: Yes unobtainable due to endotracheal tube, unobtainable due to medical condition and unobtainable due to mental status Exam Narrative: General: Pt is sedated, intubated and on mechanical ventilation. In Prone position HEENT: Pupils equal reactive, sclera is clear, ETT in place Lungs/Chest: Trachea central Coarse BS B/L, bilateral rales, no wheezing. Adequate air entry bilaterally. Left-sided chest tube in place Cardiac: Sinus tachycardia Circulation: Pedal pulses are weak but palpable, feet are much warm. Abdomen: Decreased bowel sounds. Soft. NT. ND. Extremities: Positive edema bilateral lower extremities up to the thighs. Warm : Leach in place Neurologic: Unable to assess due to sedation and Nimbex. Does not respond to painful stimuli Objective Data Vital Signs Vital Signs: Vital Signs - 24 hr 09/28/24 13:45 09/28/24 14:00 09/28/24 14:00 Temperature Pulse Rate 125 H 125 H 127 H Respiratory Rate Blood Pressure 107/65 107/60 107/60 Pulse Oximetry Oxygen Delivery Oxygen Flow Rate Fraction of Inspired Oxygen 09/28/24 14:00 09/28/24 14:00 09/28/24 14:00 Temperature 101.1 F H Pulse Rate 124 H 127 H 127 H Respiratory Rate 28 H 28 H Blood Pressure 107/60 Pulse Oximetry 96 Oxygen Delivery Oxygen Flow Rate Fraction of Inspired Oxygen 09/28/24 14:00 09/28/24 14:00 09/28/24 14:14 Temperature 101.2 F H Pulse Rate 127 H 127 H 125 H Respiratory Rate 28 H 28 H 28 H Blood Pressure 107/60 107/60 Pulse Oximetry 95 Oxygen Delivery Oxygen Flow Rate Fraction of Inspired Oxygen 09/28/24 14:36 09/28/24 14:39 09/28/24 14:42 Temperature Pulse Rate 123 H 124 H 123 H Respiratory Rate 28 H Blood Pressure 138/65 Pulse Oximetry 94 Oxygen Delivery Mechanical Ventilation Oxygen Flow Rate Fraction of Inspired Oxygen 70 09/28/24 14:45 09/28/24 14:45 09/28/24 14:57 Temperature Pulse Rate 124 H 123 H 124 H Respiratory Rate 28 H Blood Pressure 128/68 131/73 Pulse Oximetry Oxygen Delivery Oxygen Flow Rate Fraction of Inspired Oxygen 09/28/24 15:04 09/28/24 15:23 09/28/24 15:23 Temperature 101.1 F H Pulse Rate 125 H 125 H Respiratory Rate Blood Pressure 136/69 134/71 Pulse Oximetry Oxygen Delivery Oxygen Flow Rate Fraction of Inspired Oxygen 09/28/24 15:50 09/28/24 16:00 09/28/24 16:00 Temperature Pulse Rate 125 H 126 H 126 H Respiratory Rate 28 H 126 H Blood Pressure 135/67 132/65 Pulse Oximetry Oxygen Delivery Oxygen Flow Rate Fraction of Inspired Oxygen 09/28/24 16:00 09/28/24 16:00 09/28/24 16:00 Temperature Pulse Rate 126 H 127 H Respiratory Rate 28 H Blood Pressure Pulse Oximetry Oxygen Delivery Mechanical Ventilation Oxygen Flow Rate Fraction of Inspired Oxygen 70 09/28/24 16:00 09/28/24 16:00 09/28/24 16:03 Temperature 101 F H Pulse Rate 126 H 127 H Respiratory Rate 28 H Blood Pressure 132/65 132/65 Pulse Oximetry 91 Oxygen Delivery Oxygen Flow Rate Fraction of Inspired Oxygen 70 09/28/24 16:23 09/28/24 16:41 09/28/24 16:41 Temperature Pulse Rate 127 H 127 H 127 H Respiratory Rate 28 H Blood Pressure 123/64 120/61 Pulse Oximetry Oxygen Delivery Oxygen Flow Rate Fraction of Inspired Oxygen 09/28/24 17:11 09/28/24 17:30 09/28/24 17:55 Temperature Pulse Rate 126 H 126 H 124 H Respiratory Rate Blood Pressure 117/58 L 108/62 Pulse Oximetry 93 Oxygen Delivery Mechanical Ventilation Oxygen Flow Rate Fraction of Inspired Oxygen 70 09/28/24 18:00 09/28/24 18:00 09/28/24 18:00 Temperature 101.2 F H Pulse Rate 125 H 125 H 125 H Respiratory Rate 28 H Blood Pressure 109/53 L 109/53 L Pulse Oximetry 93 Oxygen Delivery Oxygen Flow Rate Fraction of Inspired Oxygen 09/28/24 18:20 09/28/24 18:23 09/28/24 18:23 Temperature Pulse Rate 123 H 123 H 123 H Respiratory Rate 123 H 28 H 28 H Blood Pressure 116/57 L Pulse Oximetry Oxygen Delivery Oxygen Flow Rate Fraction of Inspired Oxygen 09/28/24 18:25 09/28/24 18:25 09/28/24 19:00 Temperature 100.4 F H Pulse Rate 122 H 122 H Respiratory Rate 28 H 28 H Blood Pressure Pulse Oximetry Oxygen Delivery Oxygen Flow Rate Fraction of Inspired Oxygen 09/28/24 20:00 09/28/24 20:00 09/28/24 20:00 Temperature Pulse Rate 117 H 117 H 117 H Respiratory Rate 28 H 28 H 28 H Blood Pressure Pulse Oximetry Oxygen Delivery Oxygen Flow Rate Fraction of Inspired Oxygen 09/28/24 20:00 09/28/24 20:00 09/28/24 20:00 Temperature Pulse Rate 117 H 117 H 117 H Respiratory Rate 28 H 28 H Blood Pressure 107/58 L 107/58 L 107/58 L Pulse Oximetry Oxygen Delivery Oxygen Flow Rate Fraction of Inspired Oxygen 09/28/24 20:00 09/28/24 20:00 09/28/24 20:00 Temperature 100.1 F H Pulse Rate 117 H 116 H Respiratory Rate 28 H 28 H Blood Pressure 107/58 L Pulse Oximetry 94 93 Oxygen Delivery Mechanical Ventilation Oxygen Flow Rate 30 Fraction of Inspired Oxygen 70 70 09/28/24 20:00 09/28/24 20:39 09/28/24 20:40 Temperature Pulse Rate 116 H 111 H 112 H Respiratory Rate 28 H Blood Pressure Pulse Oximetry 93 Oxygen Delivery Mechanical Ventilation Oxygen Flow Rate Fraction of Inspired Oxygen 70 09/28/24 22:00 09/28/24 22:00 09/28/24 22:00 Temperature Pulse Rate 115 H 115 H 115 H Respiratory Rate 28 H 28 H Blood Pressure 110/59 L Pulse Oximetry Oxygen Delivery Oxygen Flow Rate Fraction of Inspired Oxygen 09/28/24 22:00 09/28/24 22:00 09/28/24 22:00 Temperature 99.7 F H Pulse Rate 115 H 115 H 115 H Respiratory Rate 28 H 28 H Blood Pressure 110/59 L 110/59 L Pulse Oximetry 94 Oxygen Delivery Oxygen Flow Rate Fraction of Inspired Oxygen 09/28/24 23:15 09/28/24 23:59 09/29/24 00:00 Temperature Pulse Rate 113 H 111 H 112 H Respiratory Rate 28 H Blood Pressure 107/63 Pulse Oximetry 94 Oxygen Delivery Mechanical Ventilation Oxygen Flow Rate Fraction of Inspired Oxygen 70 09/29/24 00:00 09/29/24 00:00 09/29/24 00:00 Temperature Pulse Rate 112 H 112 H 112 H Respiratory Rate 28 H 28 H Blood Pressure 103/60 103/60 Pulse Oximetry Oxygen Delivery Oxygen Flow Rate Fraction of Inspired Oxygen 09/29/24 00:00 09/29/24 00:00 09/29/24 00:00 Temperature 99.7 F H Pulse Rate 112 H 112 H Respiratory Rate 28 H 28 H Blood Pressure 103/60 Pulse Oximetry 95 95 Oxygen Delivery Mechanical Ventilation Oxygen Flow Rate 30 Fraction of Inspired Oxygen 70 70 09/29/24 00:00 09/29/24 02:00 09/29/24 02:00 Temperature Pulse Rate 114 H 109 H 109 H Respiratory Rate 28 H 28 H Blood Pressure Pulse Oximetry Oxygen Delivery Oxygen Flow Rate Fraction of Inspired Oxygen 09/29/24 02:00 09/29/24 02:00 09/29/24 02:00 Temperature 99.7 F H Pulse Rate 110 H 110 H 109 H Respiratory Rate 28 H 28 H Blood Pressure 99/58 L Pulse Oximetry 95 Oxygen Delivery Oxygen Flow Rate Fraction of Inspired Oxygen 09/29/24 02:00 09/29/24 02:00 09/29/24 02:47 Temperature Pulse Rate 110 H 110 H 110 H Respiratory Rate 28 H 28 H Blood Pressure 99/58 L 99/58 L Pulse Oximetry Oxygen Delivery Oxygen Flow Rate Fraction of Inspired Oxygen 09/29/24 02:51 09/29/24 04:00 09/29/24 04:00 Temperature Pulse Rate 110 H 114 H 114 H Respiratory Rate 28 H 28 H Blood Pressure 116/59 L Pulse Oximetry 95 Oxygen Delivery Mechanical Ventilation Oxygen Flow Rate Fraction of Inspired Oxygen 70 09/29/24 04:00 09/29/24 04:00 09/29/24 04:00 Temperature Pulse Rate 114 H 114 H 114 H Respiratory Rate 28 H 28 H Blood Pressure 116/59 L Pulse Oximetry 92 Oxygen Delivery Mechanical Ventilation Oxygen Flow Rate 30 Fraction of Inspired Oxygen 80 09/29/24 04:00 09/29/24 04:00 09/29/24 04:00 Temperature 99.6 F Pulse Rate 114 H 115 H Respiratory Rate 28 H Blood Pressure 116/59 L Pulse Oximetry 93 Oxygen Delivery Oxygen Flow Rate Fraction of Inspired Oxygen 80 09/29/24 04:41 09/29/24 05:14 09/29/24 05:46 Temperature Pulse Rate 114 H 116 H 117 H Respiratory Rate 28 H Blood Pressure 114/60 116/55 L Pulse Oximetry 93 Oxygen Delivery Mechanical Ventilation Oxygen Flow Rate Fraction of Inspired Oxygen 70 09/29/24 05:46 09/29/24 06:00 09/29/24 06:00 Temperature 99.9 F H Pulse Rate 117 H 117 H 117 H Respiratory Rate 28 H 28 H Blood Pressure 116/55 L 113/62 Pulse Oximetry 91 Oxygen Delivery Oxygen Flow Rate Fraction of Inspired Oxygen 09/29/24 06:00 09/29/24 06:00 09/29/24 06:00 Temperature Pulse Rate 117 H 117 H 117 H Respiratory Rate 28 H 28 H 28 H Blood Pressure 113/62 Pulse Oximetry Oxygen Delivery Oxygen Flow Rate Fraction of Inspired Oxygen 09/29/24 06:00 09/29/24 06:00 09/29/24 06:51 Temperature 100.3 F H Pulse Rate 117 H Respiratory Rate Blood Pressure 113/62 Pulse Oximetry Oxygen Delivery Oxygen Flow Rate Fraction of Inspired Oxygen 90 09/29/24 07:00 09/29/24 07:15 09/29/24 07:15 Temperature Pulse Rate 120 H 120 H 120 H Respiratory Rate 28 H 28 H Blood Pressure 114/58 L Pulse Oximetry 93 Oxygen Delivery Mechanical Ventilation Oxygen Flow Rate Fraction of Inspired Oxygen 90 09/29/24 07:35 09/29/24 07:51 09/29/24 08:00 Temperature 100.6 F H Pulse Rate 122 H 122 H Respiratory Rate 28 H 28 H Blood Pressure Pulse Oximetry Oxygen Delivery Oxygen Flow Rate Fraction of Inspired Oxygen 09/29/24 08:00 09/29/24 08:00 09/29/24 08:00 Temperature Pulse Rate 122 H 122 H 122 H Respiratory Rate 28 H 28 H Blood Pressure 107/60 107/60 Pulse Oximetry Oxygen Delivery Oxygen Flow Rate Fraction of Inspired Oxygen 09/29/24 08:00 09/29/24 08:00 09/29/24 08:00 Temperature 100.6 F H Pulse Rate 122 H Respiratory Rate 28 H 28 H Blood Pressure 107/60 Pulse Oximetry 92 92 Oxygen Delivery Mechanical Ventilation Oxygen Flow Rate Fraction of Inspired Oxygen 90 90 09/29/24 08:15 09/29/24 08:30 09/29/24 08:30 Temperature Pulse Rate 119 H 118 H 120 H Respiratory Rate 28 H 28 H Blood Pressure 104/59 L 96/58 L Pulse Oximetry 90 Oxygen Delivery Mechanical Ventilation Oxygen Flow Rate Fraction of Inspired Oxygen 100 09/29/24 08:40 09/29/24 08:40 09/29/24 08:53 Temperature Pulse Rate 119 H 119 H Respiratory Rate 28 H 28 H Blood Pressure Pulse Oximetry 90 Oxygen Delivery Oxygen Flow Rate Fraction of Inspired Oxygen 100 100 09/29/24 08:57 09/29/24 09:00 09/29/24 09:57 Temperature Pulse Rate 119 H 120 H Respiratory Rate 28 H 28 H Blood Pressure 86/60 L 86/57 L Pulse Oximetry Oxygen Delivery Oxygen Flow Rate Fraction of Inspired Oxygen 09/29/24 10:00 09/29/24 10:00 09/29/24 10:00 Temperature Pulse Rate 120 H 120 H 120 H Respiratory Rate 28 H 28 H 28 H Blood Pressure 87/60 L Pulse Oximetry Oxygen Delivery Oxygen Flow Rate Fraction of Inspired Oxygen 09/29/24 10:00 09/29/24 10:00 09/29/24 10:02 Temperature 100.4 F H Pulse Rate 120 H 120 H 119 H Respiratory Rate 28 H Blood Pressure 87/60 L 87/60 L Pulse Oximetry 91 92 Oxygen Delivery Oxygen Flow Rate Fraction of Inspired Oxygen 09/29/24 10:15 09/29/24 11:00 09/29/24 12:00 Temperature Pulse Rate 119 H 116 H 113 H Respiratory Rate 28 H 28 H Blood Pressure 103/56 L Pulse Oximetry 92 Oxygen Delivery Mechanical Ventilation Oxygen Flow Rate Fraction of Inspired Oxygen 100 09/29/24 12:00 09/29/24 12:00 09/29/24 12:00 Temperature Pulse Rate 115 H 113 H 113 H Respiratory Rate 28 H 28 H Blood Pressure 105/61 105/61 Pulse Oximetry Oxygen Delivery Oxygen Flow Rate Fraction of Inspired Oxygen 09/29/24 12:00 09/29/24 12:00 09/29/24 12:00 Temperature 99.8 F H Pulse Rate 112 H Respiratory Rate 28 H 28 H Blood Pressure 105/61 Pulse Oximetry 91 91 Oxygen Delivery Mechanical Ventilation Oxygen Flow Rate Fraction of Inspired Oxygen 100 100 09/29/24 12:15 09/29/24 12:15 09/29/24 13:15 Temperature Pulse Rate 115 H 115 H 112 H Respiratory Rate 28 H Blood Pressure Pulse Oximetry 90 90 92 Oxygen Delivery Mechanical Ventilation Mechanical Ventilation Oxygen Flow Rate Fraction of Inspired Oxygen 100 100 Intake/Output Intake/Output: Intake & Output 09/26/24 09/27/24 09/28/24 09/29/24 23:59 23:59 23:59 23:59 Intake Total 1775.7 2092.0 2449.4 1437.4 Output Total 3202 1170 2037 5 Balance -1426.3 922.0 412.4 1432.4 Meds/Results Medications: Active Medications Generic Name Dose Route Start Last Admin Trade Name Freq PRN Reason Stop Dose Admin Acetaminophen 650 mg 09/20/24 19:03 09/29/24 06:51 Acetaminophen Elixir 325 Mg/10.15 Ml Udc PO 650 mg Q4H PRN Administration Mild Pain (1-3) or Fever Albuterol/Ipratropium 3 ml 09/22/24 08:26 09/29/24 02:46 Ipratropium 0.5 Mg/Albuterol Sulfate 2.5 Mg Ampul.Neb 3 Ml INHALATION 3 ml Q6HRT PRN Administration wheezing Dextrose 12.5 gm 09/20/24 03:19 Dextrose 50% 25 Gm/50 Ml Syringe IV PUSH PRN PRN Hypoglycemia Protocol Enoxaparin Sodium 30 mg 09/27/24 09:00 09/29/24 09:01 Enoxaparin 30 Mg/0.3 Ml Syringe SUB-Q 30 mg DAILY TOMY Administration Epoprostenol Sodium 1 mg 09/29/24 08:56 09/29/24 10:01 Epoprostenol Sodium 0.5 Mg Vial INHALATION 1 mg PRN PRN Administration Titrate Glucagon 1 mg 09/20/24 03:19 Glucagon For Inj 1 Mg Vial IM PRN PRN Hypoglycemia Protocol Glucose 15 gm 09/20/24 03:19 Glucose Oral Gel 15 Gm Of Glucse In 37.5 Gm Tube PO PRN PRN Hypoglycemia Protocol Dextrose 1,000 mls @ 100 mls/hr 09/20/24 03:19 Dextrose 5% 1,000 Ml IVPB PRN PRN Hypoglycemia Protocol Midazolam HCl 100 mg in 100 mls @ 5 mls/hr 09/20/24 22:10 09/29/24 12:00 Versed 100 Mg/Ns 100 Ml IV CONT 5 mg/hr .Q20H TOMY 5 mls/hr Titration Protocol 5 MG/HR Albumin Human 50 mls @ 999 mls/hr 09/26/24 12:07 09/28/24 10:41 Albutein IVPB 10/26/24 12:06 999 mls/hr Q10M PRN Administration HYPOTENSION Propofol 100 mls @ 14.574 mls/hr 09/27/24 10:15 09/29/24 12:00 Diprivan IV CONT 35 mcg/kg/min .Q6H52M TOMY 14.57 mls/hr Titration Protocol 35 MCG/KG/MIN Norepinephrine Bitartrate 8 mg in 250 mls @ 9.375 mls/hr 09/27/24 10:15 09/29/24 12:00 Levophed 8 Mg/D5w 250 Ml IV CONT 5 mcg/min .Q24H TOMY 9.38 mls/hr Titration Protocol 5 MCG/MIN Meropenem 1 gm in 100 mls @ 200 mls/hr 09/27/24 18:00 09/28/24 18:21 IVPB 200 mls/hr Q24H TOMY Administration Cisatracurium Besylate 200 mg/ 100 mls @ 12.492 mls/hr 09/28/24 02:05 09/29/24 12:00 Sodium Chloride IV CONT 6 mcg/kg/min .Q8H1M TOMY 12.49 mls/hr Titration Protocol 6 MCG/KG/MIN Insulin Human Regular 100 100 mls @ 1 mls/hr 09/28/24 08:30 09/29/24 12:58 units/ Sodium Chloride IV CONT 1 units/hr .Q24H TOMY 1 mls/hr Titration Protocol 1 UNITS/HR Linezolid 600 mg in 300 mls @ 300 mls/hr 09/29/24 02:00 09/29/24 04:06 Zyvox IVPB Infused Q12H TOMY Infusion Insulin Aspart 4 - 8 units 09/21/24 08:40 09/28/24 04:43 Insulin Aspart (*Bkc) 100 Units/Ml SUB-Q 8 units Q4H TOMY Administration Protocol Insulin Glargine 40 units 09/22/24 09:00 09/27/24 09:10 Insulin Glargine (*Bkc) 100 Units/Ml SUB-Q 40 units QAM TOMY Administration Levothyroxine Sodium 100 mcg 09/21/24 06:30 09/29/24 05:55 Levothyroxine Sodium 100 Mcg Tablet FEED TUBE 100 mcg DAILY@0630 TOMY Administration Miscellaneous Information 0 each 09/29/24 00:01 09/29/24 06:10 Ivs In Normal Saline XX 10/29/24 00:00 Not Given CLARIFY TOMY Multi-Ingred Cream/Lotion/Oil/Oint 1 applic 09/20/24 21:00 09/29/24 09:01 Mineral Oil/White Petrolatum Ointment EACH EYE 1 applic Q12HR TOMY Administration Pantoprazole Sodium 40 mg 09/20/24 09:00 09/29/24 09:01 Pantoprazole Sodium Iv 40 Mg Vial IV PUSH 40 mg QAM TOMY Administration Sodium Chloride 10 ml 09/20/24 14:00 09/29/24 05:55 Central Line Flush IV PUSH 10 ml Q8HR TOMY Administration Sodium Chloride 20 ml 09/20/24 06:40 Central Line Flush IV PUSH PRN PRN after blood draws Radiology Results: ITS Impressions Chest CTA 09/20/24 05:30 Impression: Bilateral multifocal pneumonia, most extensively involving the lower lobes. No pulmonary embolus seen. Abdomen X-Ray 09/20/24 05:35 Impression: NG tube in satisfactory position. Abdomen Ultrasound 09/22/24 15:02 IMPRESSION: 1: Gallbladder wall thickening, nonspecific. No evidence for gallstones. 2: Fatty infiltration of the liver. Renal Ultrasound 09/22/24 15:14 IMPRESSION: 1. Normal kidneys without hydronephrosis. Chest X-Ray 09/29/24 06:34 Impression: 1: Stable extensive bilateral airspace disease, consistent with pneumonia. Differential diagnosis includes edema and ARDS. Head CT 09/29/24 11:59 IMPRESSION: 1. Normal brain. Chest/Abdomen/Pelvis CTA 09/29/24 12:00 IMPRESSION: 1. No evident pulmonary embolism. Sensitivity decreased in the segmental and subsegmental pulmonary arteries due to combination of respiratory motion and streak artifact. 2. Significant interval progression in diffuse bilateral lung disease with interval development of numerous cavitary lesions throughout both lungs consistent with cavitary pneumonia and ARDS. 3. Left chest tube in the left major fissure. No pneumothorax or pleural effusion. 4. Very small amount of ascites in the pelvis. No abscess or other acute intra-abdominal/pelvic process. Labs Labs: Laboratory Results - last 24 hr 09/28/24 09/28/24 09/28/24 14:31 15:54 17:09 WBC RBC Hgb Hct MCV MCH MCHC RDW Plt Count MPV Immature Gran % (Auto) Neut % (Auto) Lymph % (Auto) [place] % (Auto) Eos % (Auto) Baso % (Auto) Lymph # (Auto) [place] # (Auto) Eos # (Auto) Baso # (Auto) Abs Immat Gran (auto) Absolute Neuts (auto) Absolute Nucleated RBC Total Counted Neutrophils % (Manual) Band Neutrophils % Lymphocytes % (Manual) Monocytes % (Manual) Eosinophils % (Manual) Nucleated RBC % Abs Neuts (Manual) Abs Lymphs (Manual) Abs Monocytes (Manual) Absolute Eos (Manual) Platelet Estimate Anisocytosis Schistocytes Puncture Site ABG pH ABG pCO2 ABG pO2 ABG PO2/FiO2 Ratio ABG HCO3 ABG O2 Saturation ABG O2 Content ABG Base Excess A-a Gradient Oxyhemoglobin Carboxyhemoglobin Methemoglobin Reduced Hemoglobin Total Hemoglobin O2 Delivery Device O2 Liters/Min Minute Volume Vent Rate Vent Mode FiO2 Tidal Volume PEEP Peak Inspir Pressure Pressure Support Sodium Potassium Chloride Carbon Dioxide Anion Gap BUN Creatinine Estim Creat Clear Calc Estimated GFR Glucose POC Capillary Glucose 217 H 336 H 320 H Calcium Phosphorus Magnesium Total Bilirubin AST ALT Alkaline Phosphatase Total Protein Albumin Triglycerides 09/28/24 09/28/24 09/28/24 18:15 19:15 19:53 WBC RBC Hgb Hct MCV MCH MCHC RDW Plt Count MPV Immature Gran % (Auto) Neut % (Auto) Lymph % (Auto) [place] % (Auto) Eos % (Auto) Baso % (Auto) Lymph # (Auto) [place] # (Auto) Eos # (Auto) Baso # (Auto) Abs Immat Gran (auto) Absolute Neuts (auto) Absolute Nucleated RBC Total Counted Neutrophils % (Manual) Band Neutrophils % Lymphocytes % (Manual) Monocytes % (Manual) Eosinophils % (Manual) Nucleated RBC % Abs Neuts (Manual) Abs Lymphs (Manual) Abs Monocytes (Manual) Absolute Eos (Manual) Platelet Estimate Anisocytosis Schistocytes Puncture Site ABG pH ABG pCO2 ABG pO2 ABG PO2/FiO2 Ratio ABG HCO3 ABG O2 Saturation ABG O2 Content ABG Base Excess A-a Gradient Oxyhemoglobin Carboxyhemoglobin Methemoglobin Reduced Hemoglobin Total Hemoglobin O2 Delivery Device O2 Liters/Min Minute Volume Vent Rate Vent Mode FiO2 Tidal Volume PEEP Peak Inspir Pressure Pressure Support Sodium Potassium Chloride Carbon Dioxide Anion Gap BUN Creatinine Estim Creat Clear Calc Estimated GFR Glucose POC Capillary Glucose 310 H 293 H 275 H Calcium Phosphorus Magnesium Total Bilirubin AST ALT Alkaline Phosphatase Total Protein Albumin Triglycerides 09/28/24 09/28/24 09/28/24 20:26 21:28 22:42 WBC RBC Hgb Hct MCV MCH MCHC RDW Plt Count MPV Immature Gran % (Auto) Neut % (Auto) Lymph % (Auto) [place] % (Auto) Eos % (Auto) Baso % (Auto) Lymph # (Auto) [place] # (Auto) Eos # (Auto) Baso # (Auto) Abs Immat Gran (auto) Absolute Neuts (auto) Absolute Nucleated RBC Total Counted Neutrophils % (Manual) Band Neutrophils % Lymphocytes % (Manual) Monocytes % (Manual) Eosinophils % (Manual) Nucleated RBC % Abs Neuts (Manual) Abs Lymphs (Manual) Abs Monocytes (Manual) Absolute Eos (Manual) Platelet Estimate Anisocytosis Schistocytes Puncture Site ABG pH ABG pCO2 ABG pO2 ABG PO2/FiO2 Ratio ABG HCO3 ABG O2 Saturation ABG O2 Content ABG Base Excess A-a Gradient Oxyhemoglobin Carboxyhemoglobin Methemoglobin Reduced Hemoglobin Total Hemoglobin O2 Delivery Device O2 Liters/Min Minute Volume Vent Rate Vent Mode FiO2 Tidal Volume PEEP Peak Inspir Pressure Pressure Support Sodium Potassium Chloride Carbon Dioxide Anion Gap BUN Creatinine Estim Creat Clear Calc Estimated GFR Glucose POC Capillary Glucose 262 H 247 H 232 H Calcium Phosphorus Magnesium Total Bilirubin AST ALT Alkaline Phosphatase Total Protein Albumin Triglycerides 09/28/24 09/29/24 09/29/24 23:35 00:26 01:31 WBC RBC Hgb Hct MCV MCH MCHC RDW Plt Count MPV Immature Gran % (Auto) Neut % (Auto) Lymph % (Auto) [place] % (Auto) Eos % (Auto) Baso % (Auto) Lymph # (Auto) [place] # (Auto) Eos # (Auto) Baso # (Auto) Abs Immat Gran (auto) Absolute Neuts (auto) Absolute Nucleated RBC Total Counted Neutrophils % (Manual) Band Neutrophils % Lymphocytes % (Manual) Monocytes % (Manual) Eosinophils % (Manual) Nucleated RBC % Abs Neuts (Manual) Abs Lymphs (Manual) Abs Monocytes (Manual) Absolute Eos (Manual) Platelet Estimate Anisocytosis Schistocytes Puncture Site ABG pH ABG pCO2 ABG pO2 ABG PO2/FiO2 Ratio ABG HCO3 ABG O2 Saturation ABG O2 Content ABG Base Excess A-a Gradient Oxyhemoglobin Carboxyhemoglobin Methemoglobin Reduced Hemoglobin Total Hemoglobin O2 Delivery Device O2 Liters/Min Minute Volume Vent Rate Vent Mode FiO2 Tidal Volume PEEP Peak Inspir Pressure Pressure Support Sodium Potassium Chloride Carbon Dioxide Anion Gap BUN Creatinine Estim Creat Clear Calc Estimated GFR Glucose POC Capillary Glucose 197 H 184 H 205 H Calcium Phosphorus Magnesium Total Bilirubin AST ALT Alkaline Phosphatase Total Protein Albumin Triglycerides 09/29/24 09/29/24 09/29/24 02:30 03:33 04:32 WBC RBC Hgb Hct MCV MCH MCHC RDW Plt Count MPV Immature Gran % (Auto) Neut % (Auto) Lymph % (Auto) [place] % (Auto) Eos % (Auto) Baso % (Auto) Lymph # (Auto) [place] # (Auto) Eos # (Auto) Baso # (Auto) Abs Immat Gran (auto) Absolute Neuts (auto) Absolute Nucleated RBC Total Counted Neutrophils % (Manual) Band Neutrophils % Lymphocytes % (Manual) Monocytes % (Manual) Eosinophils % (Manual) Nucleated RBC % Abs Neuts (Manual) Abs Lymphs (Manual) Abs Monocytes (Manual) Absolute Eos (Manual) Platelet Estimate Anisocytosis Schistocytes Puncture Site Left radial ABG pH 7.315 L ABG pCO2 51.1 H ABG pO2 83.8 ABG PO2/FiO2 Ratio 1.05 ABG HCO3 25.4 ABG O2 Saturation 95.3 ABG O2 Content 11.3 L ABG Base Excess -0.9 A-a Gradient 433.0 Oxyhemoglobin 94.2 Carboxyhemoglobin 1.1 Methemoglobin 0.2 Reduced Hemoglobin 4.5 Total Hemoglobin 8.4 L O2 Delivery Device Ventilator O2 Liters/Min Not Reportable Minute Volume Not Reportable Vent Rate 26 Vent Mode Cmv FiO2 80 Tidal Volume 370 PEEP 12 Peak Inspir Pressure Not Reportable Pressure Support Not Reportable Sodium Potassium Chloride Carbon Dioxide Anion Gap BUN Creatinine Estim Creat Clear Calc Estimated GFR Glucose POC Capillary Glucose 227 H 244 H Calcium Phosphorus Magnesium Total Bilirubin AST ALT Alkaline Phosphatase Total Protein Albumin Triglycerides 09/29/24 09/29/24 09/29/24 04:40 05:51 05:57 WBC 51.1 H* RBC 3.14 L Hgb 7.8 L Hct 24.3 L MCV 77.4 L MCH 24.8 L MCHC 32.1 RDW 19.7 H Plt Count 189 MPV 11.5 H Immature Gran % (Auto) Not Reportable Neut % (Auto) Not Reportable Lymph % (Auto) Not Reportable [place] % (Auto) Not Reportable Eos % (Auto) Not Reportable Baso % (Auto) Not Reportable Lymph # (Auto) Not Reportable [place] # (Auto) Not Reportable Eos # (Auto) Not Reportable Baso # (Auto) Not Reportable Abs Immat Gran (auto) Not Reportable Absolute Neuts (auto) Not Reportable Absolute Nucleated RBC Not Reportable Total Counted 100 Neutrophils % (Manual) 81 H Band Neutrophils % 9 H Lymphocytes % (Manual) 4 L Monocytes % (Manual) 5 Eosinophils % (Manual) 1 Nucleated RBC % Not Reportable Abs Neuts (Manual) 45.99 H Abs Lymphs (Manual) 2.04 Abs Monocytes (Manual) 2.55 H Absolute Eos (Manual) 0.51 H Platelet Estimate Adequate Anisocytosis 2+ Schistocytes None seen Puncture Site ABG pH ABG pCO2 ABG pO2 ABG PO2/FiO2 Ratio ABG HCO3 ABG O2 Saturation ABG O2 Content ABG Base Excess A-a Gradient Oxyhemoglobin Carboxyhemoglobin Methemoglobin Reduced Hemoglobin Total Hemoglobin O2 Delivery Device O2 Liters/Min Minute Volume Vent Rate Vent Mode FiO2 Tidal Volume PEEP Peak Inspir Pressure Pressure Support Sodium 133 L Potassium 4.7 Chloride 96 L Carbon Dioxide 26 Anion Gap 11 BUN 62 H Creatinine 2.46 H Estim Creat Clear Calc 26 Estimated GFR 22 L Glucose 294 H POC Capillary Glucose 313 H 288 H Calcium 9.1 Phosphorus 3.8 Magnesium 2.3 Total Bilirubin 0.8 AST 63 H ALT 71 H Alkaline Phosphatase 558 H Total Protein 6.0 L Albumin 2.5 L Triglycerides 485 H 09/29/24 09/29/24 09/29/24 06:24 06:48 07:57 WBC RBC Hgb Hct MCV MCH MCHC RDW Plt Count MPV Immature Gran % (Auto) Neut % (Auto) Lymph % (Auto) [place] % (Auto) Eos % (Auto) Baso % (Auto) Lymph # (Auto) [place] # (Auto) Eos # (Auto) Baso # (Auto) Abs Immat Gran (auto) Absolute Neuts (auto) Absolute Nucleated RBC Total Counted Neutrophils % (Manual) Band Neutrophils % Lymphocytes % (Manual) Monocytes % (Manual) Eosinophils % (Manual) Nucleated RBC % Abs Neuts (Manual) Abs Lymphs (Manual) Abs Monocytes (Manual) Absolute Eos (Manual) Platelet Estimate Anisocytosis Schistocytes Puncture Site ABG pH ABG pCO2 ABG pO2 ABG PO2/FiO2 Ratio ABG HCO3 ABG O2 Saturation ABG O2 Content ABG Base Excess A-a Gradient Oxyhemoglobin Carboxyhemoglobin Methemoglobin Reduced Hemoglobin Total Hemoglobin O2 Delivery Device O2 Liters/Min Minute Volume Vent Rate Vent Mode FiO2 Tidal Volume PEEP Peak Inspir Pressure Pressure Support Sodium Potassium Chloride Carbon Dioxide Anion Gap BUN Creatinine Estim Creat Clear Calc Estimated GFR Glucose POC Capillary Glucose 277 H 302 H 290 H Calcium Phosphorus Magnesium Total Bilirubin AST ALT Alkaline Phosphatase Total Protein Albumin Triglycerides 09/29/24 09/29/24 09/29/24 08:53 09:52 10:48 WBC RBC Hgb Hct MCV MCH MCHC RDW Plt Count MPV Immature Gran % (Auto) Neut % (Auto) Lymph % (Auto) [place] % (Auto) Eos % (Auto) Baso % (Auto) Lymph # (Auto) [place] # (Auto) Eos # (Auto) Baso # (Auto) Abs Immat Gran (auto) Absolute Neuts (auto) Absolute Nucleated RBC Total Counted Neutrophils % (Manual) Band Neutrophils % Lymphocytes % (Manual) Monocytes % (Manual) Eosinophils % (Manual) Nucleated RBC % Abs Neuts (Manual) Abs Lymphs (Manual) Abs Monocytes (Manual) Absolute Eos (Manual) Platelet Estimate Anisocytosis Schistocytes Puncture Site ABG pH ABG pCO2 ABG pO2 ABG PO2/FiO2 Ratio ABG HCO3 ABG O2 Saturation ABG O2 Content ABG Base Excess A-a Gradient Oxyhemoglobin Carboxyhemoglobin Methemoglobin Reduced Hemoglobin Total Hemoglobin O2 Delivery Device O2 Liters/Min Minute Volume Vent Rate Vent Mode FiO2 Tidal Volume PEEP Peak Inspir Pressure Pressure Support Sodium Potassium Chloride Carbon Dioxide Anion Gap BUN Creatinine Estim Creat Clear Calc Estimated GFR Glucose POC Capillary Glucose 270 H 237 H 224 H Calcium Phosphorus Magnesium Total Bilirubin AST ALT Alkaline Phosphatase Total Protein Albumin Triglycerides 09/29/24 09/29/24 12:10 12:59 WBC RBC Hgb Hct MCV MCH MCHC RDW Plt Count MPV Immature Gran % (Auto) Neut % (Auto) Lymph % (Auto) [place] % (Auto) Eos % (Auto) Baso % (Auto) Lymph # (Auto) [place] # (Auto) Eos # (Auto) Baso # (Auto) Abs Immat Gran (auto) Absolute Neuts (auto) Absolute Nucleated RBC Total Counted Neutrophils % (Manual) Band Neutrophils % Lymphocytes % (Manual) Monocytes % (Manual) Eosinophils % (Manual) Nucleated RBC % Abs Neuts (Manual) Abs Lymphs (Manual) Abs Monocytes (Manual) Absolute Eos (Manual) Platelet Estimate Anisocytosis Schistocytes Puncture Site ABG pH ABG pCO2 ABG pO2 ABG PO2/FiO2 Ratio ABG HCO3 ABG O2 Saturation ABG O2 Content ABG Base Excess A-a Gradient Oxyhemoglobin Carboxyhemoglobin Methemoglobin Reduced Hemoglobin Total Hemoglobin O2 Delivery Device O2 Liters/Min Minute Volume Vent Rate Vent Mode FiO2 Tidal Volume PEEP Peak Inspir Pressure Pressure Support Sodium Potassium Chloride Carbon Dioxide Anion Gap BUN Creatinine Estim Creat Clear Calc Estimated GFR Glucose POC Capillary Glucose 187 H 190 H Calcium Phosphorus Magnesium Total Bilirubin AST ALT Alkaline Phosphatase Total Protein Albumin Triglycerides Quality VTE Prophylaxis VTE prophylaxis: pharmacologic ordered
[2024-09-29 14:01] LABS: Alveolar/Arterial O2 Gradient 551.3 mmHg; Base Excess ABG -2.1 mEq/l (+/-2.0); Carboxyhemoglobin 0.9 % THb (0-2.0); Fractional Inspired Oxygen 100 %; HCO3 ABG 24.7 mEq/l (22.0-26.0); Oxygen Saturation ABG 97.3 % (95.0-100.0); Oxyhemoglobin 96.8 % THb (90.0-100.0); PCO2 ABG 53.1 mmHg (35.0-45.0); PO2 ABG 108.6 mmHg (80.0-100.0); PO2 FiO2 Ratio Arterial Blood 1.09 %; Reduced Hemoglobin 2.3 %THb (0-5.0); Total Hemoglobin 8.7 g/dL (12.0-18.0)
[2024-09-29 14:03] LABS: Device VENTILATOR; Modified Allen's Test Pass; Site Drawn RIGHT RADIAL; pH ABG 7.285 (7.350-7.450)
[2024-09-29 14:04] LABS: Arterial Blood Gas PEEP 12 cmH2O; Arterial Blood Gas Tidal Volume 370 ml; Arterial Blood Gas Vent Mode CMV; Arterial Blood Gas Ventilator rate 28 /MIN
[2024-09-29] MEDS: MIDAZOLAM 100MG/NS 100ML(*CRX) 100 MG/100 ML BAG IV CONT (14:22)
[2024-09-29] MEDS: CISATRACURIUM BESYLATE 200 MG in SODIUM CHLORIDE 0.9% IV 80 ML 12.49 ML IV CONT ×2 (14:24→20:57)
[2024-09-29 16:00] LABS: Glucose Point of Care 230 mg/dl (65-105)
[2024-09-29 16:00] LABS: Glucose Point of Care 286 mg/dl (65-105)
[2024-09-29 16:00] LABS: Glucose Point of Care 196 mg/dl (65-105)
--- NOTE | 2024-09-29 16:44 | PM.IMPN ---
Progress Note: A&P Assessment and Plan (1) Endotracheally intubated: Code(s): Z97.8 - Presence of other specified devices Status: Acute (2) Septic shock: Code(s): A41.9 - Sepsis, unspecified organism; R65.21 - Severe sepsis with septic shock Status: Acute (3) Sepsis: Qualifiers: Sepsis type: sepsis due to unspecified organism Sepsis acute organ dysfunction status: with acute organ dysfunction Severe sepsis acute organ dysfunction type: acute respiratory failure Acute respiratory failure type: with hypoxia Severe sepsis shock status: with septic shock Qualified Code(s): A41.9 - Sepsis, unspecified organism; R65.21 - Severe sepsis with septic shock; J96.01 - Acute respiratory failure with hypoxia Code(s): A41.9 - Sepsis, unspecified organism Status: Acute (4) Acute hypoxic respiratory failure: Code(s): J96.01 - Acute respiratory failure with hypoxia Status: Acute (5) Influenza: Code(s): J11.1 - Influenza due to unidentified influenza virus with other respiratory manifestations Status: Acute (6) SCAR (acute kidney injury): Code(s): N17.9 - Acute kidney failure, unspecified Status: Acute Plan patient with acute respiratory failure secondary to influenza A and pneumonia developing ARDS, on 09/25 while on the ventilator patient desaturated and was found to have left sided spontaneous pneumothorax, surgery was consulted and chest tube was placed which remains in place, post chest tube x-ray showed resolution of the pneumothorax and seen by general surgery service, patient is now getting daily HD and managed by nephrology service, patient remain critically ill, in prone position managed by stripper cutter machine. Today to further evaluate patient had a CT scan of the chest showed significant interval progression in diffuse bilateral lung disease with interval development of numerous cavitary lesions throughout both lungs consistent with cavitary pneumonia and ARDS. Patient clinical symptoms are worsened discussed with stripper cutter machine will transfer the patient to [facility], also discussed with patient's mother and a sister and answered all their questions. 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 Patient had been taking NyQuil and Motrin at night. She reported fevers of 103.5 to nursing staff. On arrival she was lethargic drowsy and hot to touch with marked pallor. Her T-max in the ER was 104.6. She was initially placed on a non-rebreather with improvement her oxygen saturations to 92%. However shortly thereafter her work of breathing continued to increase in her oxygen saturations were dropping. An ABG was performed which demonstrated respiratory alkalosis with a PO2 of 64. She was placed on BiPAP but she would not tolerate the BiPAP and continue to pull it off. She was tried on high-flow nasal cannula but was only maintaining oxygen saturations in the low to mid 80s. She was subsequently intubated. She had an elevated D-dimer and had a CTA demonstrated bilateral multifocal pneumonia without evidence of pulmonary embolism. The patient was requiring a PEEP of 8 and 100% FiO2 to maintain oxygen saturations of 88-92%. The patient was started on empiric antibiotic therapy with cefepime doxycycline and vancomycin. She received 3 L isotonic IV fluid resuscitation (greater than 30 mL/kilos). Shortly after my evaluation the patient became acutely hypotensive. patient with acute respiratory failure secondary to influenza A and pneumonia developing ARDS, on 09/25 while on the ventilator patient desaturated and was found to have left sided spontaneous pneumothorax, surgery was consulted and chest tube was placed which remains in place, post chest tube x-ray showed resolution of the pneumothorax and seen by general surgery service, patient is now getting daily HD and managed by nephrology service, patient remain critically ill, in prone position managed by stripper cutter machine. Today to further evaluate patient had a CT scan of the chest showed significant interval progression in diffuse bilateral lung disease with interval development of numerous cavitary lesions throughout both lungs consistent with cavitary pneumonia and ARDS. Patient clinical symptoms are worsened discussed with stripper cutter machine will transfer the patient to [facility], also discussed with patient's mother and a sister and answered all their questions. Review of Systems Review of Systems: All systems reviewed & are unremarkable except as noted in HPI and below ROS unobtainable: Yes unobtainable due to endotracheal tube, unobtainable due to medical condition and unobtainable due to mental status Exam Narrative: Patient is comfortable, in prone position HEENT: ET tube in place LUNGS: Bilateral poor air entry ABD: in prone position Lower extremities: no edema SKIN: nonjaundiced Neuro: Sedated and intubated Objective Data Vital Signs Vital Signs: Vital Signs - 24 hr 09/28/24 17:11 09/28/24 17:30 09/28/24 17:55 Temperature Pulse Rate 126 H 126 H 124 H Respiratory Rate Blood Pressure 117/58 L 108/62 Pulse Oximetry 93 Oxygen Delivery Mechanical Ventilation Oxygen Flow Rate Fraction of Inspired Oxygen 70 09/28/24 18:00 09/28/24 18:00 09/28/24 18:00 Temperature 38.4 C H Pulse Rate 125 H 125 H 125 H Respiratory Rate 28 H Blood Pressure 109/53 L 109/53 L Pulse Oximetry 93 Oxygen Delivery Oxygen Flow Rate Fraction of Inspired Oxygen 09/28/24 18:20 09/28/24 18:23 09/28/24 18:23 Temperature Pulse Rate 123 H 123 H 123 H Respiratory Rate 123 H 28 H 28 H Blood Pressure 116/57 L Pulse Oximetry Oxygen Delivery Oxygen Flow Rate Fraction of Inspired Oxygen 09/28/24 18:25 09/28/24 18:25 09/28/24 19:00 Temperature 38.0 C H Pulse Rate 122 H 122 H Respiratory Rate 28 H 28 H Blood Pressure Pulse Oximetry Oxygen Delivery Oxygen Flow Rate Fraction of Inspired Oxygen 09/28/24 20:00 09/28/24 20:00 09/28/24 20:00 Temperature Pulse Rate 117 H 117 H 117 H Respiratory Rate 28 H 28 H 28 H Blood Pressure Pulse Oximetry Oxygen Delivery Oxygen Flow Rate Fraction of Inspired Oxygen 09/28/24 20:00 09/28/24 20:00 09/28/24 20:00 Temperature Pulse Rate 117 H 117 H 117 H Respiratory Rate 28 H 28 H Blood Pressure 107/58 L 107/58 L 107/58 L Pulse Oximetry Oxygen Delivery Oxygen Flow Rate Fraction of Inspired Oxygen 09/28/24 20:00 09/28/24 20:00 09/28/24 20:00 Temperature 37.8 C H Pulse Rate 117 H 116 H Respiratory Rate 28 H 28 H Blood Pressure 107/58 L Pulse Oximetry 94 93 Oxygen Delivery Mechanical Ventilation Oxygen Flow Rate 30 Fraction of Inspired Oxygen 70 70 09/28/24 20:00 09/28/24 20:39 09/28/24 20:40 Temperature Pulse Rate 116 H 111 H 112 H Respiratory Rate 28 H Blood Pressure Pulse Oximetry 93 Oxygen Delivery Mechanical Ventilation Oxygen Flow Rate Fraction of Inspired Oxygen 70 09/28/24 22:00 09/28/24 22:00 09/28/24 22:00 Temperature Pulse Rate 115 H 115 H 115 H Respiratory Rate 28 H 28 H Blood Pressure 110/59 L Pulse Oximetry Oxygen Delivery Oxygen Flow Rate Fraction of Inspired Oxygen 09/28/24 22:00 09/28/24 22:00 09/28/24 22:00 Temperature 37.6 C H Pulse Rate 115 H 115 H 115 H Respiratory Rate 28 H 28 H Blood Pressure 110/59 L 110/59 L Pulse Oximetry 94 Oxygen Delivery Oxygen Flow Rate Fraction of Inspired Oxygen 09/28/24 23:15 09/28/24 23:59 09/29/24 00:00 Temperature Pulse Rate 113 H 111 H 112 H Respiratory Rate 28 H Blood Pressure 107/63 Pulse Oximetry 94 Oxygen Delivery Mechanical Ventilation Oxygen Flow Rate Fraction of Inspired Oxygen 70 09/29/24 00:00 09/29/24 00:00 09/29/24 00:00 Temperature Pulse Rate 112 H 112 H 112 H Respiratory Rate 28 H 28 H Blood Pressure 103/60 103/60 Pulse Oximetry Oxygen Delivery Oxygen Flow Rate Fraction of Inspired Oxygen 09/29/24 00:00 09/29/24 00:00 09/29/24 00:00 Temperature 37.6 C H Pulse Rate 112 H 112 H Respiratory Rate 28 H 28 H Blood Pressure 103/60 Pulse Oximetry 95 95 Oxygen Delivery Mechanical Ventilation Oxygen Flow Rate 30 Fraction of Inspired Oxygen 70 70 09/29/24 00:00 09/29/24 02:00 09/29/24 02:00 Temperature Pulse Rate 114 H 109 H 109 H Respiratory Rate 28 H 28 H Blood Pressure Pulse Oximetry Oxygen Delivery Oxygen Flow Rate Fraction of Inspired Oxygen 09/29/24 02:00 09/29/24 02:00 09/29/24 02:00 Temperature 37.6 C H Pulse Rate 110 H 110 H 109 H Respiratory Rate 28 H 28 H Blood Pressure 99/58 L Pulse Oximetry 95 Oxygen Delivery Oxygen Flow Rate Fraction of Inspired Oxygen 09/29/24 02:00 09/29/24 02:00 09/29/24 02:47 Temperature Pulse Rate 110 H 110 H 110 H Respiratory Rate 28 H 28 H Blood Pressure 99/58 L 99/58 L Pulse Oximetry Oxygen Delivery Oxygen Flow Rate Fraction of Inspired Oxygen 09/29/24 02:51 09/29/24 04:00 09/29/24 04:00 Temperature Pulse Rate 110 H 114 H 114 H Respiratory Rate 28 H 28 H Blood Pressure 116/59 L Pulse Oximetry 95 Oxygen Delivery Mechanical Ventilation Oxygen Flow Rate Fraction of Inspired Oxygen 70 09/29/24 04:00 09/29/24 04:00 09/29/24 04:00 Temperature Pulse Rate 114 H 114 H 114 H Respiratory Rate 28 H 28 H Blood Pressure 116/59 L Pulse Oximetry 92 Oxygen Delivery Mechanical Ventilation Oxygen Flow Rate 30 Fraction of Inspired Oxygen 80 09/29/24 04:00 09/29/24 04:00 09/29/24 04:00 Temperature 37.6 C Pulse Rate 114 H 115 H Respiratory Rate 28 H Blood Pressure 116/59 L Pulse Oximetry 93 Oxygen Delivery Oxygen Flow Rate Fraction of Inspired Oxygen 80 09/29/24 04:41 09/29/24 05:14 09/29/24 05:46 Temperature Pulse Rate 114 H 116 H 117 H Respiratory Rate 28 H Blood Pressure 114/60 116/55 L Pulse Oximetry 93 Oxygen Delivery Mechanical Ventilation Oxygen Flow Rate Fraction of Inspired Oxygen 70 09/29/24 05:46 09/29/24 06:00 09/29/24 06:00 Temperature 37.7 C H Pulse Rate 117 H 117 H 117 H Respiratory Rate 28 H 28 H Blood Pressure 116/55 L 113/62 Pulse Oximetry 91 Oxygen Delivery Oxygen Flow Rate Fraction of Inspired Oxygen 09/29/24 06:00 09/29/24 06:00 09/29/24 06:00 Temperature Pulse Rate 117 H 117 H 117 H Respiratory Rate 28 H 28 H 28 H Blood Pressure 113/62 Pulse Oximetry Oxygen Delivery Oxygen Flow Rate Fraction of Inspired Oxygen 09/29/24 06:00 09/29/24 06:00 09/29/24 06:51 Temperature 37.9 C H Pulse Rate 117 H Respiratory Rate Blood Pressure 113/62 Pulse Oximetry Oxygen Delivery Oxygen Flow Rate Fraction of Inspired Oxygen 90 09/29/24 07:00 09/29/24 07:15 09/29/24 07:15 Temperature Pulse Rate 120 H 120 H 120 H Respiratory Rate 28 H 28 H Blood Pressure 114/58 L Pulse Oximetry 93 Oxygen Delivery Mechanical Ventilation Oxygen Flow Rate Fraction of Inspired Oxygen 90 09/29/24 07:35 09/29/24 07:51 09/29/24 08:00 Temperature 38.1 C H Pulse Rate 122 H 122 H Respiratory Rate 28 H 28 H Blood Pressure Pulse Oximetry Oxygen Delivery Oxygen Flow Rate Fraction of Inspired Oxygen 09/29/24 08:00 09/29/24 08:00 09/29/24 08:00 Temperature Pulse Rate 122 H 122 H 122 H Respiratory Rate 28 H 28 H Blood Pressure 107/60 107/60 Pulse Oximetry Oxygen Delivery Oxygen Flow Rate Fraction of Inspired Oxygen 09/29/24 08:00 09/29/24 08:00 09/29/24 08:00 Temperature 38.1 C H Pulse Rate 122 H Respiratory Rate 28 H 28 H Blood Pressure 107/60 Pulse Oximetry 92 92 Oxygen Delivery Mechanical Ventilation Oxygen Flow Rate Fraction of Inspired Oxygen 90 90 09/29/24 08:00 09/29/24 08:15 09/29/24 08:30 Temperature Pulse Rate 122 H 119 H 118 H Respiratory Rate 28 H 28 H Blood Pressure 104/59 L 96/58 L Pulse Oximetry Oxygen Delivery Oxygen Flow Rate Fraction of Inspired Oxygen 09/29/24 08:30 09/29/24 08:40 09/29/24 08:40 Temperature Pulse Rate 120 H 119 H Respiratory Rate 28 H Blood Pressure Pulse Oximetry 90 90 Oxygen Delivery Mechanical Ventilation Oxygen Flow Rate Fraction of Inspired Oxygen 100 100 100 09/29/24 08:53 09/29/24 08:57 09/29/24 09:00 Temperature Pulse Rate 119 H 119 H 120 H Respiratory Rate 28 H 28 H 28 H Blood Pressure 86/60 L Pulse Oximetry Oxygen Delivery Oxygen Flow Rate Fraction of Inspired Oxygen 09/29/24 09:57 09/29/24 10:00 09/29/24 10:00 Temperature Pulse Rate 120 H 120 H Respiratory Rate 28 H 28 H Blood Pressure 86/57 L 87/60 L Pulse Oximetry Oxygen Delivery Oxygen Flow Rate Fraction of Inspired Oxygen 09/29/24 10:00 09/29/24 10:00 09/29/24 10:00 Temperature 38.0 C H Pulse Rate 120 H 120 H 120 H Respiratory Rate 28 H Blood Pressure 87/60 L 87/60 L Pulse Oximetry 91 Oxygen Delivery Oxygen Flow Rate Fraction of Inspired Oxygen 09/29/24 10:00 09/29/24 10:02 09/29/24 10:15 Temperature Pulse Rate 114 H 119 H 119 H Respiratory Rate 28 H Blood Pressure Pulse Oximetry 92 92 Oxygen Delivery Mechanical Ventilation Oxygen Flow Rate Fraction of Inspired Oxygen 100 09/29/24 11:00 09/29/24 12:00 09/29/24 12:00 Temperature Pulse Rate 116 H 113 H 115 H Respiratory Rate 28 H 28 H 28 H Blood Pressure 103/56 L 105/61 Pulse Oximetry Oxygen Delivery Oxygen Flow Rate Fraction of Inspired Oxygen 09/29/24 12:00 09/29/24 12:00 09/29/24 12:00 Temperature 37.7 C H Pulse Rate 113 H 113 H 112 H Respiratory Rate 28 H 28 H Blood Pressure 105/61 105/61 Pulse Oximetry 91 Oxygen Delivery Oxygen Flow Rate Fraction of Inspired Oxygen 09/29/24 12:00 09/29/24 12:00 09/29/24 12:00 Temperature Pulse Rate 115 H Respiratory Rate 28 H Blood Pressure Pulse Oximetry 91 Oxygen Delivery Mechanical Ventilation Oxygen Flow Rate Fraction of Inspired Oxygen 100 100 09/29/24 12:15 09/29/24 12:15 09/29/24 13:00 Temperature Pulse Rate 115 H 115 H 113 H Respiratory Rate 28 H 28 H Blood Pressure 100/64 Pulse Oximetry 90 90 Oxygen Delivery Mechanical Ventilation Oxygen Flow Rate Fraction of Inspired Oxygen 100 09/29/24 13:15 09/29/24 14:00 09/29/24 14:00 Temperature Pulse Rate 112 H 110 H 108 H Respiratory Rate 28 H 28 H Blood Pressure Pulse Oximetry 92 94 Oxygen Delivery Mechanical Ventilation Oxygen Flow Rate Fraction of Inspired Oxygen 100 09/29/24 14:00 09/29/24 14:00 09/29/24 14:00 Temperature Pulse Rate 109 H 109 H 108 H Respiratory Rate 28 H 28 H Blood Pressure 105/61 106/58 L Pulse Oximetry Oxygen Delivery Oxygen Flow Rate Fraction of Inspired Oxygen 09/29/24 14:00 09/29/24 14:00 09/29/24 14:22 Temperature 37.6 C H Pulse Rate 110 H 110 H 108 H Respiratory Rate 28 H 28 H Blood Pressure 100/60 Pulse Oximetry 93 Oxygen Delivery Oxygen Flow Rate Fraction of Inspired Oxygen 09/29/24 14:22 09/29/24 14:24 09/29/24 14:24 Temperature Pulse Rate 108 H 109 H 109 H Respiratory Rate 28 H 28 H 28 H Blood Pressure 106/58 L 106/58 L Pulse Oximetry Oxygen Delivery Oxygen Flow Rate Fraction of Inspired Oxygen 09/29/24 14:35 09/29/24 14:35 09/29/24 14:58 Temperature Pulse Rate 110 H Respiratory Rate 28 H Blood Pressure Pulse Oximetry 94 Oxygen Delivery Oxygen Flow Rate Fraction of Inspired Oxygen 90 09/29/24 14:58 09/29/24 15:51 09/29/24 16:00 Temperature Pulse Rate 110 H 110 H 110 H Respiratory Rate 28 H 28 H Blood Pressure Pulse Oximetry 93 93 Oxygen Delivery Mechanical Ventilation Oxygen Flow Rate Fraction of Inspired Oxygen 90 Intake/Output Intake/Output: Intake & Output 09/26/24 09/27/24 09/28/24 09/29/24 23:59 23:59 23:59 23:59 Intake Total 1775.7 2092.0 2449.4 1541.3 Output Total 3202 1170 2037 5 Balance -1426.3 922.0 412.4 1536.3 Meds/Results Medications: Active Medications Generic Name Dose Route Start Last Admin Trade Name Freq PRN Reason Stop Dose Admin Acetaminophen 650 mg 09/20/24 19:03 09/29/24 06:51 Acetaminophen Elixir 325 Mg/10.15 Ml Udc PO 650 mg Q4H PRN Administration Mild Pain (1-3) or Fever Albuterol/Ipratropium 3 ml 09/22/24 08:26 09/29/24 02:46 Ipratropium 0.5 Mg/Albuterol Sulfate 2.5 Mg Ampul.Neb 3 Ml INHALATION 3 ml Q6HRT PRN Administration wheezing Dextrose 12.5 gm 09/20/24 03:19 Dextrose 50% 25 Gm/50 Ml Syringe IV PUSH PRN PRN Hypoglycemia Protocol Enoxaparin Sodium 30 mg 09/27/24 09:00 09/29/24 09:01 Enoxaparin 30 Mg/0.3 Ml Syringe SUB-Q 30 mg DAILY TOMY Administration Epoprostenol Sodium 1 mg 09/29/24 08:56 09/29/24 15:34 Epoprostenol Sodium 0.5 Mg Vial INHALATION 1 mg PRN PRN Administration Titrate Glucagon 1 mg 09/20/24 03:19 Glucagon For Inj 1 Mg Vial IM PRN PRN Hypoglycemia Protocol Glucose 15 gm 09/20/24 03:19 Glucose Oral Gel 15 Gm Of Glucse In 37.5 Gm Tube PO PRN PRN Hypoglycemia Protocol Dextrose 1,000 mls @ 100 mls/hr 09/20/24 03:19 Dextrose 5% 1,000 Ml IVPB PRN PRN Hypoglycemia Protocol Midazolam HCl 100 mg in 100 mls @ 5 mls/hr 09/20/24 22:10 09/29/24 14:22 Versed 100 Mg/Ns 100 Ml IV CONT 5 mg/hr .Q20H TOMY 5 mls/hr Administration Protocol 5 MG/HR Albumin Human 50 mls @ 999 mls/hr 09/26/24 12:07 09/28/24 10:41 Albutein IVPB 10/26/24 12:06 999 mls/hr Q10M PRN Administration HYPOTENSION Propofol 100 mls @ 14.574 mls/hr 09/27/24 10:15 09/29/24 14:58 Diprivan IV CONT 35 mcg/kg/min .Q6H52M TOMY 14.57 mls/hr Administration Protocol 35 MCG/KG/MIN Norepinephrine Bitartrate 8 mg in 250 mls @ 9.375 mls/hr 09/27/24 10:15 09/29/24 14:00 Levophed 8 Mg/D5w 250 Ml IV CONT 5 mcg/min .Q24H TOMY 9.38 mls/hr Titration Protocol 5 MCG/MIN Meropenem 1 gm in 100 mls @ 200 mls/hr 09/27/24 18:00 09/28/24 18:21 IVPB 200 mls/hr Q24H TOMY Administration Cisatracurium Besylate 200 mg/ 100 mls @ 12.492 mls/hr 09/28/24 02:05 09/29/24 14:24 Sodium Chloride IV CONT 6 mcg/kg/min .Q8H1M TOMY 12.49 mls/hr Administration Protocol 6 MCG/KG/MIN Insulin Human Regular 100 100 mls @ 2 mls/hr 09/28/24 08:30 09/29/24 15:55 units/ Sodium Chloride IV CONT 2 units/hr .Q24H TOMY 2 mls/hr Titration Protocol 2 UNITS/HR Linezolid 600 mg in 300 mls @ 300 mls/hr 09/29/24 02:00 09/29/24 14:53 Zyvox IVPB 300 mls/hr Q12H TOMY Administration Insulin Aspart 4 - 8 units 09/21/24 08:40 09/28/24 04:43 Insulin Aspart (*Bkc) 100 Units/Ml SUB-Q 8 units Q4H TOMY Administration Protocol Insulin Glargine 40 units 09/22/24 09:00 09/27/24 09:10 Insulin Glargine (*Bkc) 100 Units/Ml SUB-Q 40 units QAM TOMY Administration Levothyroxine Sodium 100 mcg 09/21/24 06:30 09/29/24 05:55 Levothyroxine Sodium 100 Mcg Tablet FEED TUBE 100 mcg DAILY@0630 TOMY Administration Miscellaneous Information 0 each 09/29/24 00:01 09/29/24 06:10 Ivs In Normal Saline XX 10/29/24 00:00 Not Given CLARIFY TOMY Multi-Ingred Cream/Lotion/Oil/Oint 1 applic 09/20/24 21:00 09/29/24 09:01 Mineral Oil/White Petrolatum Ointment EACH EYE 1 applic Q12HR TOMY Administration Pantoprazole Sodium 40 mg 09/20/24 09:00 09/29/24 09:01 Pantoprazole Sodium Iv 40 Mg Vial IV PUSH 40 mg QAM TOMY Administration Sodium Chloride 10 ml 09/20/24 14:00 09/29/24 14:58 Central Line Flush IV PUSH 10 ml Q8HR TOMY Administration Sodium Chloride 20 ml 09/20/24 06:40 Central Line Flush IV PUSH PRN PRN after blood draws Radiology Results: ITS Impressions Chest CTA 09/20/24 05:30 Impression: Bilateral multifocal pneumonia, most extensively involving the lower lobes. No pulmonary embolus seen. Abdomen X-Ray 09/20/24 05:35 Impression: NG tube in satisfactory position. Abdomen Ultrasound 09/22/24 15:02 IMPRESSION: 1: Gallbladder wall thickening, nonspecific. No evidence for gallstones. 2: Fatty infiltration of the liver. Renal Ultrasound 09/22/24 15:14 IMPRESSION: 1. Normal kidneys without hydronephrosis. Chest X-Ray 09/29/24 06:34 Impression: 1: Stable extensive bilateral airspace disease, consistent with pneumonia. Differential diagnosis includes edema and ARDS. Head CT 09/29/24 11:59 IMPRESSION: 1. Normal brain. Chest/Abdomen/Pelvis CTA 09/29/24 12:00 IMPRESSION: 1. No evident pulmonary embolism. Sensitivity decreased in the segmental and subsegmental pulmonary arteries due to combination of respiratory motion and streak artifact. 2. Significant interval progression in diffuse bilateral lung disease with interval development of numerous cavitary lesions throughout both lungs consistent with cavitary pneumonia and ARDS. 3. Left chest tube in the left major fissure. No pneumothorax or pleural effusion. 4. Very small amount of ascites in the pelvis. No abscess or other acute intra-abdominal/pelvic process. Labs Labs: Laboratory Results - last 24 hr 09/28/24 09/28/24 09/28/24 17:09 18:15 19:15 WBC RBC Hgb Hct MCV MCH MCHC RDW Plt Count MPV Immature Gran % (Auto) Neut % (Auto) Lymph % (Auto) [place] % (Auto) Eos % (Auto) Baso % (Auto) Lymph # (Auto) [place] # (Auto) Eos # (Auto) Baso # (Auto) Abs Immat Gran (auto) Absolute Neuts (auto) Absolute Nucleated RBC Total Counted Neutrophils % (Manual) Band Neutrophils % Lymphocytes % (Manual) Monocytes % (Manual) Eosinophils % (Manual) Nucleated RBC % Abs Neuts (Manual) Abs Lymphs (Manual) Abs Monocytes (Manual) Absolute Eos (Manual) Platelet Estimate Anisocytosis Schistocytes Puncture Site ABG pH ABG pCO2 ABG pO2 ABG PO2/FiO2 Ratio ABG HCO3 ABG O2 Saturation ABG O2 Content ABG Base Excess A-a Gradient Oxyhemoglobin Carboxyhemoglobin Methemoglobin Reduced Hemoglobin Total Hemoglobin O2 Delivery Device O2 Liters/Min Minute Volume Vent Rate Vent Mode FiO2 Tidal Volume PEEP Peak Inspir Pressure Pressure Support Sodium Potassium Chloride Carbon Dioxide Anion Gap BUN Creatinine Estim Creat Clear Calc Estimated GFR Glucose POC Capillary Glucose 320 H 310 H 293 H Calcium Phosphorus Magnesium Total Bilirubin AST ALT Alkaline Phosphatase Total Protein Albumin Triglycerides 09/28/24 09/28/24 09/28/24 19:53 20:26 21:28 WBC RBC Hgb Hct MCV MCH MCHC RDW Plt Count MPV Immature Gran % (Auto) Neut % (Auto) Lymph % (Auto) [place] % (Auto) Eos % (Auto) Baso % (Auto) Lymph # (Auto) [place] # (Auto) Eos # (Auto) Baso # (Auto) Abs Immat Gran (auto) Absolute Neuts (auto) Absolute Nucleated RBC Total Counted Neutrophils % (Manual) Band Neutrophils % Lymphocytes % (Manual) Monocytes % (Manual) Eosinophils % (Manual) Nucleated RBC % Abs Neuts (Manual) Abs Lymphs (Manual) Abs Monocytes (Manual) Absolute Eos (Manual) Platelet Estimate Anisocytosis Schistocytes Puncture Site ABG pH ABG pCO2 ABG pO2 ABG PO2/FiO2 Ratio ABG HCO3 ABG O2 Saturation ABG O2 Content ABG Base Excess A-a Gradient Oxyhemoglobin Carboxyhemoglobin Methemoglobin Reduced Hemoglobin Total Hemoglobin O2 Delivery Device O2 Liters/Min Minute Volume Vent Rate Vent Mode FiO2 Tidal Volume PEEP Peak Inspir Pressure Pressure Support Sodium Potassium Chloride Carbon Dioxide Anion Gap BUN Creatinine Estim Creat Clear Calc Estimated GFR Glucose POC Capillary Glucose 275 H 262 H 247 H Calcium Phosphorus Magnesium Total Bilirubin AST ALT Alkaline Phosphatase Total Protein Albumin Triglycerides 09/28/24 09/28/24 09/29/24 22:42 23:35 00:26 WBC RBC Hgb Hct MCV MCH MCHC RDW Plt Count MPV Immature Gran % (Auto) Neut % (Auto) Lymph % (Auto) [place] % (Auto) Eos % (Auto) Baso % (Auto) Lymph # (Auto) [place] # (Auto) Eos # (Auto) Baso # (Auto) Abs Immat Gran (auto) Absolute Neuts (auto) Absolute Nucleated RBC Total Counted Neutrophils % (Manual) Band Neutrophils % Lymphocytes % (Manual) Monocytes % (Manual) Eosinophils % (Manual) Nucleated RBC % Abs Neuts (Manual) Abs Lymphs (Manual) Abs Monocytes (Manual) Absolute Eos (Manual) Platelet Estimate Anisocytosis Schistocytes Puncture Site ABG pH ABG pCO2 ABG pO2 ABG PO2/FiO2 Ratio ABG HCO3 ABG O2 Saturation ABG O2 Content ABG Base Excess A-a Gradient Oxyhemoglobin Carboxyhemoglobin Methemoglobin Reduced Hemoglobin Total Hemoglobin O2 Delivery Device O2 Liters/Min Minute Volume Vent Rate Vent Mode FiO2 Tidal Volume PEEP Peak Inspir Pressure Pressure Support Sodium Potassium Chloride Carbon Dioxide Anion Gap BUN Creatinine Estim Creat Clear Calc Estimated GFR Glucose POC Capillary Glucose 232 H 197 H 184 H Calcium Phosphorus Magnesium Total Bilirubin AST ALT Alkaline Phosphatase Total Protein Albumin Triglycerides 09/29/24 09/29/24 09/29/24 01:31 02:30 03:33 WBC RBC Hgb Hct MCV MCH MCHC RDW Plt Count MPV Immature Gran % (Auto) Neut % (Auto) Lymph % (Auto) [place] % (Auto) Eos % (Auto) Baso % (Auto) Lymph # (Auto) [place] # (Auto) Eos # (Auto) Baso # (Auto) Abs Immat Gran (auto) Absolute Neuts (auto) Absolute Nucleated RBC Total Counted Neutrophils % (Manual) Band Neutrophils % Lymphocytes % (Manual) Monocytes % (Manual) Eosinophils % (Manual) Nucleated RBC % Abs Neuts (Manual) Abs Lymphs (Manual) Abs Monocytes (Manual) Absolute Eos (Manual) Platelet Estimate Anisocytosis Schistocytes Puncture Site ABG pH ABG pCO2 ABG pO2 ABG PO2/FiO2 Ratio ABG HCO3 ABG O2 Saturation ABG O2 Content ABG Base Excess A-a Gradient Oxyhemoglobin Carboxyhemoglobin Methemoglobin Reduced Hemoglobin Total Hemoglobin O2 Delivery Device O2 Liters/Min Minute Volume Vent Rate Vent Mode FiO2 Tidal Volume PEEP Peak Inspir Pressure Pressure Support Sodium Potassium Chloride Carbon Dioxide Anion Gap BUN Creatinine Estim Creat Clear Calc Estimated GFR Glucose POC Capillary Glucose 205 H 227 H 244 H Calcium Phosphorus Magnesium Total Bilirubin AST ALT Alkaline Phosphatase Total Protein Albumin Triglycerides 09/29/24 09/29/24 09/29/24 04:32 04:40 05:51 WBC RBC Hgb Hct MCV MCH MCHC RDW Plt Count MPV Immature Gran % (Auto) Neut % (Auto) Lymph % (Auto) [place] % (Auto) Eos % (Auto) Baso % (Auto) Lymph # (Auto) [place] # (Auto) Eos # (Auto) Baso # (Auto) Abs Immat Gran (auto) Absolute Neuts (auto) Absolute Nucleated RBC Total Counted Neutrophils % (Manual) Band Neutrophils % Lymphocytes % (Manual) Monocytes % (Manual) Eosinophils % (Manual) Nucleated RBC % Abs Neuts (Manual) Abs Lymphs (Manual) Abs Monocytes (Manual) Absolute Eos (Manual) Platelet Estimate Anisocytosis Schistocytes Puncture Site Left radial ABG pH 7.315 L ABG pCO2 51.1 H ABG pO2 83.8 ABG PO2/FiO2 Ratio 1.05 ABG HCO3 25.4 ABG O2 Saturation 95.3 ABG O2 Content 11.3 L ABG Base Excess -0.9 A-a Gradient 433.0 Oxyhemoglobin 94.2 Carboxyhemoglobin 1.1 Methemoglobin 0.2 Reduced Hemoglobin 4.5 Total Hemoglobin 8.4 L O2 Delivery Device Ventilator O2 Liters/Min Not Reportable Minute Volume Not Reportable Vent Rate 26 Vent Mode Cmv FiO2 80 Tidal Volume 370 PEEP 12 Peak Inspir Pressure Not Reportable Pressure Support Not Reportable Sodium Potassium Chloride Carbon Dioxide Anion Gap BUN Creatinine Estim Creat Clear Calc Estimated GFR Glucose POC Capillary Glucose 313 H 288 H Calcium Phosphorus Magnesium Total Bilirubin AST ALT Alkaline Phosphatase Total Protein Albumin Triglycerides 09/29/24 09/29/24 09/29/24 05:57 06:24 06:48 WBC 51.1 H* RBC 3.14 L Hgb 7.8 L Hct 24.3 L MCV 77.4 L MCH 24.8 L MCHC 32.1 RDW 19.7 H Plt Count 189 MPV 11.5 H Immature Gran % (Auto) Not Reportable Neut % (Auto) Not Reportable Lymph % (Auto) Not Reportable [place] % (Auto) Not Reportable Eos % (Auto) Not Reportable Baso % (Auto) Not Reportable Lymph # (Auto) Not Reportable [place] # (Auto) Not Reportable Eos # (Auto) Not Reportable Baso # (Auto) Not Reportable Abs Immat Gran (auto) Not Reportable Absolute Neuts (auto) Not Reportable Absolute Nucleated RBC Not Reportable Total Counted 100 Neutrophils % (Manual) 81 H Band Neutrophils % 9 H Lymphocytes % (Manual) 4 L Monocytes % (Manual) 5 Eosinophils % (Manual) 1 Nucleated RBC % Not Reportable Abs Neuts (Manual) 45.99 H Abs Lymphs (Manual) 2.04 Abs Monocytes (Manual) 2.55 H Absolute Eos (Manual) 0.51 H Platelet Estimate Adequate Anisocytosis 2+ Schistocytes None seen Puncture Site ABG pH ABG pCO2 ABG pO2 ABG PO2/FiO2 Ratio ABG HCO3 ABG O2 Saturation ABG O2 Content ABG Base Excess A-a Gradient Oxyhemoglobin Carboxyhemoglobin Methemoglobin Reduced Hemoglobin Total Hemoglobin O2 Delivery Device O2 Liters/Min Minute Volume Vent Rate Vent Mode FiO2 Tidal Volume PEEP Peak Inspir Pressure Pressure Support Sodium 133 L Potassium 4.7 Chloride 96 L Carbon Dioxide 26 Anion Gap 11 BUN 62 H Creatinine 2.46 H Estim Creat Clear Calc 26 Estimated GFR 22 L Glucose 294 H POC Capillary Glucose 277 H 302 H Calcium 9.1 Phosphorus 3.8 Magnesium 2.3 Total Bilirubin 0.8 AST 63 H ALT 71 H Alkaline Phosphatase 558 H Total Protein 6.0 L Albumin 2.5 L Triglycerides 485 H 09/29/24 09/29/24 09/29/24 07:57 08:53 09:52 WBC RBC Hgb Hct MCV MCH MCHC RDW Plt Count MPV Immature Gran % (Auto) Neut % (Auto) Lymph % (Auto) [place] % (Auto) Eos % (Auto) Baso % (Auto) Lymph # (Auto) [place] # (Auto) Eos # (Auto) Baso # (Auto) Abs Immat Gran (auto) Absolute Neuts (auto) Absolute Nucleated RBC Total Counted Neutrophils % (Manual) Band Neutrophils % Lymphocytes % (Manual) Monocytes % (Manual) Eosinophils % (Manual) Nucleated RBC % Abs Neuts (Manual) Abs Lymphs (Manual) Abs Monocytes (Manual) Absolute Eos (Manual) Platelet Estimate Anisocytosis Schistocytes Puncture Site ABG pH ABG pCO2 ABG pO2 ABG PO2/FiO2 Ratio ABG HCO3 ABG O2 Saturation ABG O2 Content ABG Base Excess A-a Gradient Oxyhemoglobin Carboxyhemoglobin Methemoglobin Reduced Hemoglobin Total Hemoglobin O2 Delivery Device O2 Liters/Min Minute Volume Vent Rate Vent Mode FiO2 Tidal Volume PEEP Peak Inspir Pressure Pressure Support Sodium Potassium Chloride Carbon Dioxide Anion Gap BUN Creatinine Estim Creat Clear Calc Estimated GFR Glucose POC Capillary Glucose 290 H 270 H 237 H Calcium Phosphorus Magnesium Total Bilirubin AST ALT Alkaline Phosphatase Total Protein Albumin Triglycerides 09/29/24 09/29/24 09/29/24 10:48 12:10 12:59 WBC RBC Hgb Hct MCV MCH MCHC RDW Plt Count MPV Immature Gran % (Auto) Neut % (Auto) Lymph % (Auto) [place] % (Auto) Eos % (Auto) Baso % (Auto) Lymph # (Auto) [place] # (Auto) Eos # (Auto) Baso # (Auto) Abs Immat Gran (auto) Absolute Neuts (auto) Absolute Nucleated RBC Total Counted Neutrophils % (Manual) Band Neutrophils % Lymphocytes % (Manual) Monocytes % (Manual) Eosinophils % (Manual) Nucleated RBC % Abs Neuts (Manual) Abs Lymphs (Manual) Abs Monocytes (Manual) Absolute Eos (Manual) Platelet Estimate Anisocytosis Schistocytes Puncture Site ABG pH ABG pCO2 ABG pO2 ABG PO2/FiO2 Ratio ABG HCO3 ABG O2 Saturation ABG O2 Content ABG Base Excess A-a Gradient Oxyhemoglobin Carboxyhemoglobin Methemoglobin Reduced Hemoglobin Total Hemoglobin O2 Delivery Device O2 Liters/Min Minute Volume Vent Rate Vent Mode FiO2 Tidal Volume PEEP Peak Inspir Pressure Pressure Support Sodium Potassium Chloride Carbon Dioxide Anion Gap BUN Creatinine Estim Creat Clear Calc Estimated GFR Glucose POC Capillary Glucose 224 H 187 H 190 H Calcium Phosphorus Magnesium Total Bilirubin AST ALT Alkaline Phosphatase Total Protein Albumin Triglycerides 09/29/24 09/29/24 09/29/24 13:54 14:20 14:56 WBC RBC Hgb Hct MCV MCH MCHC RDW Plt Count MPV Immature Gran % (Auto) Neut % (Auto) Lymph % (Auto) [place] % (Auto) Eos % (Auto) Baso % (Auto) Lymph # (Auto) [place] # (Auto) Eos # (Auto) Baso # (Auto) Abs Immat Gran (auto) Absolute Neuts (auto) Absolute Nucleated RBC Total Counted Neutrophils % (Manual) Band Neutrophils % Lymphocytes % (Manual) Monocytes % (Manual) Eosinophils % (Manual) Nucleated RBC % Abs Neuts (Manual) Abs Lymphs (Manual) Abs Monocytes (Manual) Absolute Eos (Manual) Platelet Estimate Anisocytosis Schistocytes Puncture Site Right radial ABG pH 7.285 L* ABG pCO2 53.1 H ABG pO2 108.6 H ABG PO2/FiO2 Ratio 1.09 ABG HCO3 24.7 ABG O2 Saturation 97.3 ABG O2 Content 12.0 L ABG Base Excess -2.1 A-a Gradient 551.3 Oxyhemoglobin 96.8 Carboxyhemoglobin 0.9 Methemoglobin 0.0 Reduced Hemoglobin 2.3 Total Hemoglobin 8.7 L O2 Delivery Device Ventilator O2 Liters/Min Not Reportable Minute Volume Not Reportable Vent Rate 28 Vent Mode Cmv FiO2 100 Tidal Volume 370 PEEP 12 Peak Inspir Pressure Not Reportable Pressure Support Not Reportable Sodium Potassium Chloride Carbon Dioxide Anion Gap BUN Creatinine Estim Creat Clear Calc Estimated GFR Glucose POC Capillary Glucose 196 H 230 H Calcium Phosphorus Magnesium Total Bilirubin AST ALT Alkaline Phosphatase Total Protein Albumin Triglycerides 09/29/24 15:52 WBC RBC Hgb Hct MCV MCH MCHC RDW Plt Count MPV Immature Gran % (Auto) Neut % (Auto) Lymph % (Auto) [place] % (Auto) Eos % (Auto) Baso % (Auto) Lymph # (Auto) [place] # (Auto) Eos # (Auto) Baso # (Auto) Abs Immat Gran (auto) Absolute Neuts (auto) Absolute Nucleated RBC Total Counted Neutrophils % (Manual) Band Neutrophils % Lymphocytes % (Manual) Monocytes % (Manual) Eosinophils % (Manual) Nucleated RBC % Abs Neuts (Manual) Abs Lymphs (Manual) Abs Monocytes (Manual) Absolute Eos (Manual) Platelet Estimate Anisocytosis Schistocytes Puncture Site ABG pH ABG pCO2 ABG pO2 ABG PO2/FiO2 Ratio ABG HCO3 ABG O2 Saturation ABG O2 Content ABG Base Excess A-a Gradient Oxyhemoglobin Carboxyhemoglobin Methemoglobin Reduced Hemoglobin Total Hemoglobin O2 Delivery Device O2 Liters/Min Minute Volume Vent Rate Vent Mode FiO2 Tidal Volume PEEP Peak Inspir Pressure Pressure Support Sodium Potassium Chloride Carbon Dioxide Anion Gap BUN Creatinine Estim Creat Clear Calc Estimated GFR Glucose POC Capillary Glucose 286 H Calcium Phosphorus Magnesium Total Bilirubin AST ALT Alkaline Phosphatase Total Protein Albumin Triglycerides Quality VTE Prophylaxis VTE prophylaxis: pharmacologic ordered
[2024-09-29] MEDS: MEROPENEM 1 GM/NS 100 ML 1 GM/100 ML BAG IVPB (17:16)
[2024-09-29] MEDS: NOREPINEPHRINE 8 MG/D5W 250 ML 8 MG/250 ML BAG 3.75 MG IV CONT (17:57)
--- NOTE | 2024-09-29 18:25 | PC.NURSE ---
At 1600, RN at bedside with patients mom and sister. Both family members expressing concerns regarding patient transfer to [facility]. Patient's family states that the patients quality of life has been very poor for awhile and patient had previously verbalized wishes against advanced life sustaining medical interventions. Family has denied transfer to [facility] for infectious disease and verbalized they would like to proceed with comfort based measures on Wednesday after arrival of further family from out of state. RN notified Director Of Medical Staff Services Dr. Ramirez at [phone], and hospitalist Dr. Bartlett at [phone] of families wishes. Instructed per Dr. Ramirez to notify [facility] of transfer refusal. [facility] transfer center called at [phone] and notified of cancellation of transfer for change in care plan. RN to continue patient care at this time.
[2024-09-29 18:56] LABS: Glucose Point of Care 285 mg/dl (65-105)
[2024-09-29 18:56] LABS: Glucose Point of Care 281 mg/dl (65-105)
[2024-09-29 18:56] LABS: Glucose Point of Care 292 mg/dl (65-105)
[2024-09-29 19:49] LABS: Glucose Point of Care 273 mg/dl (65-105)
[2024-09-29 21:43] LABS: Glucose Point of Care 212 mg/dl (65-105)
[2024-09-29 21:43] LABS: Glucose Point of Care 142 mg/dl (65-105)
[2024-09-29 22:47] LABS: Glucose Point of Care 215 mg/dl (65-105)
[2024-09-29 23:51] LABS: Glucose Point of Care 222 mg/dl (65-105)
[2024-09-30] VITALS (49 sets, daily range): BP systolic 92–122; BP diastolic 49–85; PULSE 72–120; RESP 24–28; TEMP 37–38.4; O2SAT 91–96
[2024-09-30 00:39] LABS: Glucose Point of Care 229 mg/dl (65-105)
[2024-09-30 02:25] LABS: Glucose Point of Care 269 mg/dl (65-105)
[2024-09-30] MEDS: LINEZOLID 600 MG/300 ML 600 MG/300 ML SOLN 300 MG IVPB ×2 (02:27→13:32)
[2024-09-30] MEDS: PROPOFOL IV EMULSION 100 ML 14.57 MG IV CONT ×4 (02:28→20:27)
[2024-09-30] MEDS: EPOPROSTENOL SODIUM 0.5 MG VIAL 1 MG INHALATION ×4 (02:29→19:41)
[2024-09-30 02:51] LABS: Base Excess ABG -5.2 mEq/l (+/-2.0); Carboxyhemoglobin 0.9 % THb (0-2.0); Fractional Inspired Oxygen 85 %; HCO3 ABG 21.7 mEq/l (22.0-26.0); Methemoglobin ABG 0.1 %THb (0-1.5); Oxygen Content ABG 11.6 %vol (16.0-22.0); Oxygen Saturation ABG 95.2 % (95.0-100.0); Oxyhemoglobin 94.4 % THb (90.0-100.0); PCO2 ABG 49.4 mmHg (35.0-45.0); PO2 ABG 86.8 mmHg (80.0-100.0); PO2 FiO2 Ratio Arterial Blood 1.02 %; Reduced Hemoglobin 4.6 %THb (0-5.0); Total Hemoglobin 8.6 g/dL (12.0-18.0)
[2024-09-30 03:00] LABS: pH ABG 7.261 (7.350-7.450)
[2024-09-30 03:01] LABS: Arterial Blood Gas PEEP 12 cmH2O; Arterial Blood Gas Tidal Volume 370 ml; Arterial Blood Gas Vent Mode CMV; Arterial Blood Gas Ventilator rate 28 /MIN; Device VENTILATOR; Site Drawn RIGHT RADIAL
[2024-09-30 04:19] LABS: Glucose Point of Care 323 mg/dl (65-105)
[2024-09-30 04:19] LABS: Glucose Point of Care 315 mg/dl (65-105)
[2024-09-30 04:24] LABS: Hematocrit 24.3 % (37.0-47.0); Mean Corpuscular HGB Conc 32.9 g/dl (32-36); Mean Corpuscular Hemoglobin 24.9 pg (26-34); Mean Corpuscular Volume 75.7 fl (80-100); Mean Platelet Volume 11.9 fl (7.4-10.4); Platelet Count Result 223 k/mm3 (150-375); Red Blood Count 3.21 M/mm3 (4.2-5.4); Red Cell Distribution Width 19.8 % (11.5-14.5)
[2024-09-30 04:27] LABS: White Blood Count 52.1 K/mm3 (4.5-10.0)
[2024-09-30 04:40] LABS: Alanine Aminotransferase 53 U/L (6-35); Albumin Level 2.5 g/dL (3.5-5.1); Alkaline Phosphatase 528 U/L (38-126); Anion Gap 15 mmol/L (4-12); Aspartate Amino Transferase 91 U/L (14-36); Bilirubin,Total 0.8 mg/dL (0.2-1.3); Blood Urea Nitrogen 92 mg/dL (7-17); Calcium 8.9 mg/dL (8.4-10.2); Carbon Dioxide 19 mmol/L (22-30); Chloride 94 mmol/L (98-107); Glucose 321 mg/dL (65-110); Magnesium 2.4 mg/dL (1.6-2.3); Phosphorus 7.2 mg/dL (2.5-4.5); Potassium 5.5 mmol/L (3.4-5.0); Sodium 128 mmol/L (137-145)
[2024-09-30 04:44] LABS: Estimated CRCL calculation 19 ml/min; Estimated Glomerular Filt Rate 15
[2024-09-30 04:53] LABS: Band Neutrophils Percent 11 % (0-6); Lymphocytes Absolute Manual 0.52 K/mm3 (1.1-4.5); Monocytes Absolute Manual 1.56 K/mm3 (0.1-0.90); Monocytes Percent Manual 3 % (3-9); Neutrophils Absolute Manual 50.01 K/mm3 (1.7-7.2); Neutrophils Percent Manual 85 % (46-73); Platelet Estimate Adequate (Adequate); Total Cells Counted 100
[2024-09-30 04:54] LABS: Anisocytosis 1+; Schistocytes None Seen; Smudge Cells PRESENT; Tear Drop Cells 1+
[2024-09-30] MEDS: CISATRACURIUM BESYLATE 200 MG in SODIUM CHLORIDE 0.9% IV 80 ML 12.49 ML IV CONT (05:08)
[2024-09-30] MEDS: CENTRAL LINE FLUSH 10 ML IV PUSH ×3 (05:13→21:00)
[2024-09-30] MEDS: LEVOTHYROXINE SODIUM 100 MCG TABLET FEED TUBE (05:13)
[2024-09-30 06:57] LABS: Glucose Point of Care 268 mg/dl (65-105)
[2024-09-30 06:57] LABS: Glucose Point of Care 313 mg/dl (65-105)
[2024-09-30 07:51] LABS: Glucose Point of Care 244 mg/dl (65-105)
[2024-09-30] MEDS: MICAFUNGIN SODIUM 100 MG in SODIUM CHLORIDE 0.9% IV 100 ML IVPB (07:52)
[2024-09-30] MEDS: MINERAL OIL/WHITE PETROLATUM OINTMENT 1 APPLIC EACH EYE ×2 (07:53→20:59)
[2024-09-30] MEDS: SODIUM BICARBONATE 8.4% 50 MEQ/50 ML SYRINGE 100 MEQ IV PUSH (08:06)
[2024-09-30] MEDS: SODIUM ZIRCONIUM CYCLOSILICATE 10 GM POWD.PACK PO ×2 (08:06→18:49)
[2024-09-30] MEDS: ENOXAPARIN 30 MG/0.3 ML SYRINGE SUB-Q (08:07)
[2024-09-30] MEDS: INSULIN HUMAN REGULAR (*BKC) 100 UNITS/ML 10 UNITS IV PUSH (08:07)
[2024-09-30] MEDS: DEXTROSE 50% 25 GM/50 ML SYRINGE IV PUSH (08:07)
[2024-09-30] MEDS: PANTOPRAZOLE SODIUM IV 40 MG VIAL IV PUSH (08:07)
[2024-09-30] MEDS: INSULIN HUMAN REGULAR (*BKC) 100 UNITS in SODIUM CHLORIDE 0.9% IV 99 ML 8.5 UNITS IV CONT (08:30)
[2024-09-30 08:50] LABS: Glucose Point of Care 286 mg/dl (65-105)
[2024-09-30] MEDS: MIDAZOLAM 100MG/NS 100ML(*CRX) 100 MG/100 ML BAG IV CONT (10:30)
[2024-09-30 10:36] LABS: Glucose Point of Care 228 mg/dl (65-105)
--- NOTE | 2024-09-30 10:46 | WPDINTPN ---
Progress Note: A&P Assessment and Plan (1) Spontaneous pneumothorax: Code(s): J93.83 - Other pneumothorax Status: Acute Assessment and Plan: 09/25/2024: In the afternoon patient started to desaturate with O2 sats in the mid 80s, peep was increased, FiO2 was increased with no improvement, on auscultation left-sided breath sounds were decreased, stat chest x-ray showed spontaneous pneumothorax. Chest tube was inserted on 09/25, by surgery. Chest x-ray post chest tube insertion showed resolution of the pneumothorax with improvement in O2 sats. -surgery to manage chest tube -no air leak noted (2) Acute hypoxic respiratory failure: Code(s): J96.01 - Acute respiratory failure with hypoxia Status: Acute Assessment and Plan: Acute respiratory failure secondary to influenza A and pneumonia proceeding to ARDS 09/20: Intubated in the ER Patient now intubated and on mechanical ventilation ABG reviewed. will allow permissive hypercapnia. -tidal volume 340 mL, peep 12, FiO2 80%. Continue to wean FiO2 to maintain O2 sats > 92% Continue sedation with Versed and propofol Bronchodilators 09/27: increased FiO2 requirements, on high Ventilatory support. Added Pulmozyme and Mucomyst nebs. Placed pt in prone position 09/28: Chest x-ray unchanged, ABGs reviewed, increase tidal volume, continue prone positioning, continue Pulmozyme and Mucomyst nebs 09/29: Patient placed in supine position after 48 hours. Started on Flolan 09/29: Discussed CT chest results with Radiology and pulmonology, most likely related to Staph aureus, multiple cavities renal lesions. Recommended transferring patient for higher level of care for infectious disease to evaluate and treat -family did not want patient to be transferred to [facility] for higher level of care and they have decided to withdraw support on 10/01/2024 once more family members arrive and since the goodbyes to the patient 09/29/2024: CTA chest abdomen and pelvis IMPRESSION: 1. No evident pulmonary embolism. Sensitivity decreased in the segmental and subsegmental pulmonary arteries due to combination of respiratory motion and streak artifact. 2. Significant interval progression in diffuse bilateral lung disease with interval development of numerous cavitary lesions throughout both lungs consistent with cavitary pneumonia and ARDS. 3. Left chest tube in the left major fissure. No pneumothorax or pleural effusion. 4. Very small amount of ascites in the pelvis. No abscess or other acute intra-abdominal/pelvic process. 09/20: CTA chest Bilateral multifocal pneumonia, most extensively involving the lower lobes. No pulmonary embolus seen. (3) Uncontrolled diabetes mellitus: Status: Acute Assessment and Plan: SSI Hyperglycemia with blood sugars in the 300s to 400s, -continue insulin infusion -off Lantus Continue tube feeds (4) Septic shock: Code(s): A41.9 - Sepsis, unspecified organism; R65.21 - Severe sepsis with septic shock Status: Acute Assessment and Plan: Septic shock secondary to pneumonia Hold further IV fluids off Stress dose steroids 09/19: Blood cultures are negative till now 09/21: Sputum cultures growing Staph aureus 09/27: Switched vancomycin and cefepime to linezolid and meropenem, WBC count trending up, afebrile, bandemia -completed 5 day course of doxycycline 09/27: Repeat Blood cultures growing MRSA 1 of 2 bottles 09/27: Repeat sputum cultures growing MRSA CT scan of the chest abdomen and pelvis as above Continue Levophed at 5 mcg/min for adequate end organ perfusion, maintain MAP > 65 mg Or SBP> 100 mmHg. (5) PNA (pneumonia): Code(s): J18.9 - Pneumonia, unspecified organism Status: Acute Assessment and Plan: See above (6) Hypothyroidism: Code(s): E03.9 - Hypothyroidism, unspecified Status: Acute Assessment and Plan: Continue levothyroxine Normal TSH (7) Influenza: Code(s): J11.1 - Influenza due to unidentified influenza virus with other respiratory manifestations Status: Acute Assessment and Plan: Isolation Status post Tamiflu (8) SCAR (acute kidney injury): Code(s): N17.9 - Acute kidney failure, unspecified Status: Acute Assessment and Plan: Patient presented with elevated creatinine which has been gradually getting worse This is likely multifactorial secondary to sepsis, shock possible contrast induced injury. 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 Recommends continuing Lasix for another 24 hours and re-evaluate need for dialysis 09/25: Worsening and creatinine and BUN despite diuretics, will discuss with Nephrology regarding dialysis 09/26: Discussed with Nephrology, patient is making good urine despite but her BUN and creatinine trending up, discussed with family regarding dialysis, family okay with dialysis. HD catheter placed in left IJ. Started HD Dialysis per nephrology 09/30: Will treat hyperkalemia (9) Shock liver: Code(s): K72.00 - Acute and subacute hepatic failure without coma Status: Acute Assessment and Plan: Elevated AST and ALT likely secondary to shock liver and cholestasis secondary to sepsis and shock US right upper quadrant ultrasound shows gallbladder wall thickening nonspecific no evidence of gallstones. Fatty infiltration of the liver Negative hepatitis panel LFTs improving, bilirubin is normal Continue to monitor (10) Thrombocytopenia: Code(s): D69.6 - Thrombocytopenia, unspecified Status: Acute Assessment and Plan: Gradual in platelet count since admission likely multifactorial secondary to sepsis medications and hemodilution -platelets are back to normal, continue Lovenox Plan DVT prophylaxis -SCDs, restarted Lovenox as thrombocytopenia has resolved, Stress ulcer prophylaxis -Protonix Nutrition - tolerating tube feeds Code Status - Full Code Total Critical Care Time: 35 minutes Discussed with patient's mother yesterday who is the POA, updated with patient's condition and plan of care. I answered all questions. Patient has been accepted to [facility], [facility], [facility], accepting physician Dr. PIRES. Patient will transfer was the have a bed available 09/30: Family decided to withdraw support on Wednesday10/01/2024: And for that reason patient was not transferred to [facility] Due to a high probability of clinically significant, life threatening deterioration, the patient required my highest level of preparedness to intervene emergently and I personally spent this critical care time directly and personally managing the patient. This critical care time included obtaining a history; examining the patient; pulse oximetry; ordering and review of studies; arranging urgent treatment with development of a management plan; evaluation of patient's response to treatment; frequent reassessment; and discussions with other providers. It was exclusive of separately billable procedures and treating other patients and teaching time. Please see Assessment and Plan section and the rest of the note for further information on patient assessment and treatment This dictation may have been done utilizing a voice recognition system. Attempts have been made to correct errors. However, there may be uncorrected grammatical, spelling, and recognitions errors present. Subjective Date/time seen: 09/30/24 10:46 Interval history: Reason for consult: Acute respiratory failure, pneumonia, septic shock, acute kidney injury, pneumonia, hyperglycemia 09/25: Left pneumothorax status post chest tube by surgery 09/26: Left IJ dialysis catheter placed and started on hemodialysis 09/27: Placed in Prone position 09/29: Started Flolan 09/30/2024: Patient seen and examined in the ICU, remains intubated on CMV mode of ventilation, peep of 12, 85% FiO2. 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 Off Levophed. Anuric, hyperkalemia with potassium of 5.5. WBC count 52.1, afebrile. Review of Systems Review of Systems: ROS unobtainable: Yes unobtainable due to endotracheal tube, unobtainable due to medical condition and unobtainable due to mental status Exam Narrative: General: Pt is sedated, intubated and on mechanical ventilation. In supine position HEENT: Pupils equal reactive, sclera is clear, ETT in place Lungs/Chest: Trachea central Coarse BS B/L, bilateral rales, no wheezing. Adequate air entry bilaterally. Left-sided chest tube in place Cardiac: Sinus tachycardia Circulation: Pedal pulses are weak but palpable, feet are much warm. Abdomen: Decreased bowel sounds. Soft. NT. ND. Extremities: Positive edema bilateral lower extremities up to the thighs. Warm : Leach in place Neurologic: Unable to assess due to sedation and Nimbex. Does not respond to painful stimuli Objective Data Vital Signs Vital Signs: Vital Signs - 24 hr 09/29/24 11:00 09/29/24 12:09/29/24 12:00 Temperature Pulse Rate 116 H 113 H 115 H Respiratory Rate 28 H 28 H 28 H Blood Pressure 103/56 L 105/61 Pulse Oximetry Oxygen Delivery Fraction of Inspired Oxygen 09/29/24 12:09/29/24 12:09/29/24 12:00 Temperature 99.8 F H Pulse Rate 113 H 113 H 112 H Respiratory Rate 28 H 28 H Blood Pressure 105/61 105/61 Pulse Oximetry 91 Oxygen Delivery Fraction of Inspired Oxygen 09/29/24 12:09/29/24 12:09/29/24 12:00 Temperature Pulse Rate 115 H Respiratory Rate 28 H Blood Pressure Pulse Oximetry 91 Oxygen Delivery Mechanical Ventilation Fraction of Inspired Oxygen 100 100 09/29/24 12:15 09/29/24 12:15 09/29/24 13:00 Temperature Pulse Rate 115 H 115 H 113 H Respiratory Rate 28 H 28 H Blood Pressure 100/64 Pulse Oximetry 90 90 Oxygen Delivery Mechanical Ventilation Fraction of Inspired Oxygen 100 09/29/24 13:15 09/29/24 14:00 09/29/24 14:00 Temperature Pulse Rate 112 H 110 H 108 H Respiratory Rate 28 H 28 H Blood Pressure Pulse Oximetry 92 94 Oxygen Delivery Mechanical Ventilation Fraction of Inspired Oxygen 100 09/29/24 14:00 09/29/24 14:00 09/29/24 14:00 Temperature Pulse Rate 109 H 109 H 108 H Respiratory Rate 28 H 28 H Blood Pressure 105/61 106/58 L Pulse Oximetry Oxygen Delivery Fraction of Inspired Oxygen 09/29/24 14:00 09/29/24 14:00 09/29/24 14:22 Temperature 99.7 F H Pulse Rate 110 H 110 H 108 H Respiratory Rate 28 H 28 H Blood Pressure 100/60 Pulse Oximetry 93 Oxygen Delivery Fraction of Inspired Oxygen 09/29/24 14:22 09/29/24 14:24 09/29/24 14:24 Temperature Pulse Rate 108 H 109 H 109 H Respiratory Rate 28 H 28 H 28 H Blood Pressure 106/58 L 106/58 L Pulse Oximetry Oxygen Delivery Fraction of Inspired Oxygen 09/29/24 14:35 09/29/24 14:35 09/29/24 14:58 Temperature Pulse Rate 110 H Respiratory Rate 28 H Blood Pressure Pulse Oximetry 94 Oxygen Delivery Fraction of Inspired Oxygen 90 09/29/24 14:58 09/29/24 15:00 09/29/24 15:51 Temperature Pulse Rate 110 H 111 H 110 H Respiratory Rate 28 H 28 H 28 H Blood Pressure 104/63 Pulse Oximetry 93 Oxygen Delivery Fraction of Inspired Oxygen 09/29/24 16:00 09/29/24 16:00 09/29/24 16:00 Temperature Pulse Rate 110 H 110 H 110 H Respiratory Rate 28 H 28 H Blood Pressure 106/66 Pulse Oximetry 93 Oxygen Delivery Mechanical Ventilation Fraction of Inspired Oxygen 90 09/29/24 16:00 09/29/24 16:00 09/29/24 16:00 Temperature Pulse Rate 110 H 110 H Respiratory Rate 28 H Blood Pressure 106/66 Pulse Oximetry Oxygen Delivery Fraction of Inspired Oxygen 90 09/29/24 16:00 09/29/24 16:00 09/29/24 16:00 Temperature 99.5 F Pulse Rate 110 H 110 H Respiratory Rate 28 H 27 H Blood Pressure 106/66 Pulse Oximetry 92 92 Oxygen Delivery Mechanical Ventilation Fraction of Inspired Oxygen 90 09/29/24 17:00 09/29/24 17:00 09/29/24 17:57 Temperature Pulse Rate 108 H 108 H 110 H Respiratory Rate 28 H Blood Pressure 100/62 116/67 111/65 Pulse Oximetry Oxygen Delivery Fraction of Inspired Oxygen 09/29/24 17:57 09/29/24 18:00 09/29/24 18:00 Temperature 99.6 F Pulse Rate 110 H 111 H 111 H Respiratory Rate 28 H Blood Pressure 111/65 103/67 Pulse Oximetry 93 Oxygen Delivery Fraction of Inspired Oxygen 09/29/24 18:00 09/29/24 18:00 09/29/24 18:00 Temperature Pulse Rate 111 H 111 H 111 H Respiratory Rate 28 H 28 H 28 H Blood Pressure 103/67 Pulse Oximetry Oxygen Delivery Fraction of Inspired Oxygen 09/29/24 18:00 09/29/24 18:00 09/29/24 18:01 Temperature Pulse Rate 111 H 108 H Respiratory Rate 28 H Blood Pressure 103/67 Pulse Oximetry 93 Oxygen Delivery Fraction of Inspired Oxygen 85 09/29/24 19:00 09/29/24 19:37 09/29/24 20:00 Temperature Pulse Rate 108 H 108 H 105 H Respiratory Rate 28 H 28 H Blood Pressure 99/63 L Pulse Oximetry 95 Oxygen Delivery Mechanical Ventilation Fraction of Inspired Oxygen 90 09/29/24 20:00 09/29/24 20:00 09/29/24 20:00 Temperature Pulse Rate 105 H 105 H 105 H Respiratory Rate 28 H 28 H Blood Pressure 102/59 L 102/59 L Pulse Oximetry Oxygen Delivery Fraction of Inspired Oxygen 09/29/24 20:00 09/29/24 20:00 09/29/24 20:00 Temperature Pulse Rate 105 H 108 H Respiratory Rate 28 H Blood Pressure Pulse Oximetry 95 Oxygen Delivery Mechanical Ventilation Fraction of Inspired Oxygen 85 85 09/29/24 20:00 09/29/24 20:52 09/29/24 20:52 Temperature 99.3 F Pulse Rate 108 H 105 H 105 H Respiratory Rate 28 H 28 H 28 H Blood Pressure 102/59 L Pulse Oximetry 93 Oxygen Delivery Fraction of Inspired Oxygen 09/29/24 20:57 09/29/24 20:57 09/29/24 20:58 Temperature Pulse Rate 105 H 105 H 105 H Respiratory Rate 28 H 28 H Blood Pressure 93/61 L 93/61 L 93/61 L Pulse Oximetry Oxygen Delivery Fraction of Inspired Oxygen 09/29/24 21:30 09/29/24 22:00 09/29/24 22:00 Temperature Pulse Rate 110 H 102 H 102 H Respiratory Rate 28 H 28 H 28 H Blood Pressure 95/60 L Pulse Oximetry 95 Oxygen Delivery Fraction of Inspired Oxygen 09/29/24 22:00 09/29/24 22:00 09/29/24 22:00 Temperature Pulse Rate 102 H 102 H 103 H Respiratory Rate 28 H Blood Pressure 95/60 L Pulse Oximetry Oxygen Delivery Fraction of Inspired Oxygen 09/29/24 22:00 09/29/24 22:40 09/29/24 22:40 Temperature 98.9 F Pulse Rate 103 H 104 H 104 H Respiratory Rate 28 H 28 H Blood Pressure 94/60 L Pulse Oximetry 95 96 96 Oxygen Delivery Mechanical Ventilation Fraction of Inspired Oxygen 85 09/30/24 00:00 09/30/24 00:00 09/30/24 00:00 Temperature Pulse Rate 100 100 100 Respiratory Rate 28 H 28 H 28 H Blood Pressure 92/61 L Pulse Oximetry Oxygen Delivery Fraction of Inspired Oxygen 09/30/24 00:00 09/30/24 00:00 09/30/24 00:00 Temperature Pulse Rate 100 100 Respiratory Rate 28 H Blood Pressure 92/61 L Pulse Oximetry 93 Oxygen Delivery Mechanical Ventilation Fraction of Inspired Oxygen 85 85 09/30/24 00:00 09/30/24 00:00 09/30/24 01:24 Temperature 98.6 F Pulse Rate 100 101 H 105 H Respiratory Rate 28 H Blood Pressure 92/61 L Pulse Oximetry 93 95 Oxygen Delivery Mechanical Ventilation Fraction of Inspired Oxygen 85 09/30/24 01:24 09/30/24 02:00 09/30/24 02:00 Temperature Pulse Rate 103 H 102 H 102 H Respiratory Rate 28 H 28 H 28 H Blood Pressure 98/59 L Pulse Oximetry 95 Oxygen Delivery Fraction of Inspired Oxygen 09/30/24 02:00 09/30/24 02:00 09/30/24 02:00 Temperature Pulse Rate 102 H 102 H 104 H Respiratory Rate 28 H Blood Pressure 98/59 L Pulse Oximetry Oxygen Delivery Fraction of Inspired Oxygen 09/30/24 02:00 09/30/24 02:28 09/30/24 02:28 Temperature 98.6 F Pulse Rate 102 H 103 H 103 H Respiratory Rate 28 H 28 H 28 H Blood Pressure 98/59 L Pulse Oximetry 94 Oxygen Delivery Fraction of Inspired Oxygen 09/30/24 04:00 09/30/24 04:00 09/30/24 04:00 Temperature 98.6 F Pulse Rate 102 H 102 H Respiratory Rate 28 H 28 H Blood Pressure 100/59 L Pulse Oximetry 91 91 Oxygen Delivery Mechanical Ventilation Fraction of Inspired Oxygen 85 85 09/30/24 04:00 09/30/24 04:00 09/30/24 04:00 Temperature Pulse Rate 102 H 102 H 102 H Respiratory Rate 28 H 28 H 28 H Blood Pressure 100/59 L Pulse Oximetry Oxygen Delivery Fraction of Inspired Oxygen 09/30/24 04:00 09/30/24 04:00 09/30/24 04:25 Temperature Pulse Rate 102 H 103 H 102 H Respiratory Rate Blood Pressure 100/59 L Pulse Oximetry 96 Oxygen Delivery Mechanical Ventilation Fraction of Inspired Oxygen 85 09/30/24 04:25 09/30/24 04:58 09/30/24 05:08 Temperature Pulse Rate 102 H 105 H 105 H Respiratory Rate 28 H 28 H 28 H Blood Pressure 92/57 L 92/57 L Pulse Oximetry 96 Oxygen Delivery Fraction of Inspired Oxygen 09/30/24 06:00 09/30/24 06:00 09/30/24 06:00 Temperature 99 F Pulse Rate 111 H 109 H 109 H Respiratory Rate 28 H 28 H Blood Pressure 104/55 L Pulse Oximetry 94 Oxygen Delivery Fraction of Inspired Oxygen 09/30/24 06:00 09/30/24 06:00 09/30/24 06:00 Temperature Pulse Rate 109 H 109 H 109 H Respiratory Rate 28 H 28 H Blood Pressure 104/55 L 104/55 L Pulse Oximetry Oxygen Delivery Fraction of Inspired Oxygen 09/30/24 06:51 09/30/24 07:45 09/30/24 07:45 Temperature Pulse Rate 113 H 115 H 115 H Respiratory Rate 28 H 28 H Blood Pressure Pulse Oximetry 95 93 93 Oxygen Delivery Mechanical Ventilation Fraction of Inspired Oxygen 85 09/30/24 07:45 09/30/24 08:00 09/30/24 08:00 Temperature Pulse Rate 115 H 115 H 115 H Respiratory Rate 28 H 28 H 28 H Blood Pressure 104/57 L Pulse Oximetry Oxygen Delivery Fraction of Inspired Oxygen 09/30/24 08:00 09/30/24 08:00 09/30/24 08:00 Temperature 100.1 F H Pulse Rate 115 H Respiratory Rate 28 H Blood Pressure 105/60 Pulse Oximetry 94 94 Oxygen Delivery Mechanical Ventilation Fraction of Inspired Oxygen 85 85 09/30/24 08:25 09/30/24 08:39 09/30/24 08:39 Temperature Pulse Rate 119 H 118 H 118 H Respiratory Rate 28 H 28 H 28 H Blood Pressure 101/51 L Pulse Oximetry Oxygen Delivery Fraction of Inspired Oxygen 09/30/24 08:57 09/30/24 09:00 09/30/24 09:56 Temperature Pulse Rate 120 H 120 H 119 H Respiratory Rate 28 H 28 H Blood Pressure 112/53 L Pulse Oximetry 94 95 Oxygen Delivery Mechanical Ventilation Fraction of Inspired Oxygen 85 09/30/24 09:56 09/30/24 10:00 09/30/24 10:00 Temperature Pulse Rate 119 H 119 H 119 H Respiratory Rate 28 H 28 H 28 H Blood Pressure 103/55 L Pulse Oximetry 95 Oxygen Delivery Fraction of Inspired Oxygen 09/30/24 10:00 09/30/24 10:22 09/30/24 10:30 Temperature Pulse Rate 119 H 119 H 119 H Respiratory Rate 28 H 28 H 28 H Blood Pressure Pulse Oximetry Oxygen Delivery Fraction of Inspired Oxygen Intake/Output Intake/Output: Intake & Output 09/27/24 09/28/24 09/29/24 09/30/24 23:59 23:59 23:59 23:59 Intake Total 2092.0 2549.4 2657.2 1363.2 Output Total 1170 2037 5 37 Balance 922.0 512.4 2652.2 1326.2 Meds/Results Medications: Active Medications Generic Name Dose Route Start Last Admin Trade Name Freq PRN Reason Stop Dose Admin Acetaminophen 650 mg 09/20/24 19:03 09/29/24 06:51 Acetaminophen Elixir 325 Mg/10.15 Ml Udc PO 650 mg Q4H PRN Administration Mild Pain (1-3) or Fever Albuterol/Ipratropium 3 ml 09/22/24 08:26 09/29/24 02:46 Ipratropium 0.5 Mg/Albuterol Sulfate 2.5 Mg Ampul.Neb 3 Ml INHALATION 3 ml Q6HRT PRN Administration wheezing Dextrose 12.5 gm 09/20/24 03:19 Dextrose 50% 25 Gm/50 Ml Syringe IV PUSH PRN PRN Hypoglycemia Protocol Enoxaparin Sodium 30 mg 09/27/24 09:00 09/30/24 08:07 Enoxaparin 30 Mg/0.3 Ml Syringe SUB-Q 30 mg DAILY TOMY Administration Epoprostenol Sodium 1 mg 09/29/24 08:56 09/30/24 08:58 Epoprostenol Sodium 0.5 Mg Vial INHALATION 1 mg PRN PRN Administration Titrate Glucagon 1 mg 09/20/24 03:19 Glucagon For Inj 1 Mg Vial IM PRN PRN Hypoglycemia Protocol Glucose 15 gm 09/20/24 03:19 Glucose Oral Gel 15 Gm Of Glucse In 37.5 Gm Tube PO PRN PRN Hypoglycemia Protocol Dextrose 1,000 mls @ 100 mls/hr 09/20/24 03:19 Dextrose 5% 1,000 Ml IVPB PRN PRN Hypoglycemia Protocol Midazolam HCl 100 mg in 100 mls @ 5 mls/hr 09/20/24 22:10 09/30/24 10:30 Versed 100 Mg/Ns 100 Ml IV CONT 5 mg/hr .Q20H TOMY 5 mls/hr Administration Protocol 5 MG/HR Albumin Human 50 mls @ 999 mls/hr 09/26/24 12:07 09/28/24 10:41 Albutein IVPB 10/26/24 12:06 999 mls/hr Q10M PRN Administration HYPOTENSION Propofol 100 mls @ 14.574 mls/hr 09/27/24 10:15 09/30/24 10:00 Diprivan IV CONT 35 mcg/kg/min .Q6H52M TOMY 14.57 mls/hr Titration Protocol 35 MCG/KG/MIN Norepinephrine Bitartrate 8 mg in 250 mls @ 0 mls/hr 09/27/24 10:15 09/30/24 06:00 Levophed 8 Mg/D5w 250 Ml IV CONT 0 mcg/min .Q0M TOMY 0 mls/hr Titration Protocol 0 MCG/MIN Meropenem 1 gm in 100 mls @ 200 mls/hr 09/27/24 18:00 09/29/24 17:46 IVPB Infused Q24H TOMY Infusion Cisatracurium Besylate 200 mg/ 100 mls @ 9.369 mls/hr 09/28/24 02:05 09/30/24 10:00 Sodium Chloride IV CONT 4.5 mcg/kg/min .[id number] TOMY 9.37 mls/hr Titration Protocol 4.5 MCG/KG/MIN Insulin Human Regular 100 100 mls @ 8.5 mls/hr 09/28/24 08:30 09/30/24 10:31 units/ Sodium Chloride IV CONT 8.5 units/hr .Q04X09H TOMY 8.5 mls/hr Titration Protocol 8.5 UNITS/HR Linezolid 600 mg in 300 mls @ 300 mls/hr 09/29/24 02:00 09/30/24 04:28 Zyvox IVPB Infused Q12H TOMY Infusion Micafungin Sodium 100 mg/ 100 mls @ 100 mls/hr 09/30/24 09:00 09/30/24 08:52 Sodium Chloride IVPB Infused DAILY TOMY Infusion Insulin Aspart 4 - 8 units 09/21/24 08:40 09/28/24 04:43 Insulin Aspart (*Bkc) 100 Units/Ml SUB-Q 8 units Q4H TOMY Administration Protocol Insulin Glargine 40 units 09/22/24 09:00 09/27/24 09:10 Insulin Glargine (*Bkc) 100 Units/Ml SUB-Q 40 units QAM TOMY Administration Levothyroxine Sodium 100 mcg 09/21/24 06:30 09/30/24 05:13 Levothyroxine Sodium 100 Mcg Tablet FEED TUBE 100 mcg DAILY@0630 TOMY Administration Miscellaneous Information 0 each 09/29/24 00:01 09/29/24 06:10 Ivs In Normal Saline XX 10/29/24 00:00 Not Given CLARIFY TOMY Multi-Ingred Cream/Lotion/Oil/Oint 1 applic 09/20/24 21:00 09/30/24 07:53 Mineral Oil/White Petrolatum Ointment EACH EYE 1 applic Q12HR TOMY Administration Pantoprazole Sodium 40 mg 09/20/24 09:00 09/30/24 08:07 Pantoprazole Sodium Iv 40 Mg Vial IV PUSH 40 mg QAM TOMY Administration Sodium Chloride 10 ml 09/20/24 14:00 09/30/24 05:13 Central Line Flush IV PUSH 10 ml Q8HR TOMY Administration Sodium Chloride 20 ml 09/20/24 06:40 Central Line Flush IV PUSH PRN PRN after blood draws Sodium Zirconium Cyclosilicate 10 gm 09/30/24 07:20 09/30/24 08:06 Sodium Zirconium Cyclosilicate 10 Gm Powd.Pack PO 09/30/24 19:21 10 gm Q12H TOMY Administration Radiology Results: ITS Impressions Chest CTA 09/20/24 05:30 Impression: Bilateral multifocal pneumonia, most extensively involving the lower lobes. No pulmonary embolus seen. Abdomen X-Ray 09/20/24 05:35 Impression: NG tube in satisfactory position. Abdomen Ultrasound 09/22/24 15:02 IMPRESSION: 1: Gallbladder wall thickening, nonspecific. No evidence for gallstones. 2: Fatty infiltration of the liver. Renal Ultrasound 09/22/24 15:14 IMPRESSION: 1. Normal kidneys without hydronephrosis. Head CT 09/29/24 11:59 IMPRESSION: 1. Normal brain. Chest/Abdomen/Pelvis CTA 09/29/24 12:00 IMPRESSION: 1. No evident pulmonary embolism. Sensitivity decreased in the segmental and subsegmental pulmonary arteries due to combination of respiratory motion and streak artifact. 2. Significant interval progression in diffuse bilateral lung disease with interval development of numerous cavitary lesions throughout both lungs consistent with cavitary pneumonia and ARDS. 3. Left chest tube in the left major fissure. No pneumothorax or pleural effusion. 4. Very small amount of ascites in the pelvis. No abscess or other acute intra-abdominal/pelvic process. Chest X-Ray 09/30/24 07:07 IMPRESSION: 1. No significant interval change in extensive cavitary pneumonia and possible superimposed ARDS throughout both lungs relatively sparing left apex. 2. Lines and tubes in expected positions as detailed above. Labs Labs: Laboratory Results - last 24 hr 09/29/24 09/29/24 09/29/24 10:48 12:10 12:59 WBC RBC Hgb Hct MCV MCH MCHC RDW Plt Count MPV Immature Gran % (Auto) Neut % (Auto) Lymph % (Auto) [place] % (Auto) Eos % (Auto) Baso % (Auto) Lymph # (Auto) [place] # (Auto) Eos # (Auto) Baso # (Auto) Abs Immat Gran (auto) Absolute Neuts (auto) Absolute Nucleated RBC Total Counted Neutrophils % (Manual) Band Neutrophils % Lymphocytes % (Manual) Monocytes % (Manual) Nucleated RBC % Abs Neuts (Manual) Abs Lymphs (Manual) Abs Monocytes (Manual) Smudge Cells Platelet Estimate Anisocytosis Tear Drop Cells Schistocytes Puncture Site ABG pH ABG pCO2 ABG pO2 ABG PO2/FiO2 Ratio ABG HCO3 ABG O2 Saturation ABG O2 Content ABG Base Excess A-a Gradient Oxyhemoglobin Carboxyhemoglobin Methemoglobin Reduced Hemoglobin Total Hemoglobin O2 Delivery Device O2 Liters/Min Minute Volume Vent Rate Vent Mode FiO2 Tidal Volume PEEP Peak Inspir Pressure Pressure Support Sodium Potassium Chloride Carbon Dioxide Anion Gap BUN Creatinine Estim Creat Clear Calc Estimated GFR Glucose POC Capillary Glucose 224 H 187 H 190 H Calcium Phosphorus Magnesium Total Bilirubin AST ALT Alkaline Phosphatase Total Protein Albumin 09/29/24 09/29/24 09/29/24 13:54 14:20 14:56 WBC RBC Hgb Hct MCV MCH MCHC RDW Plt Count MPV Immature Gran % (Auto) Neut % (Auto) Lymph % (Auto) [place] % (Auto) Eos % (Auto) Baso % (Auto) Lymph # (Auto) [place] # (Auto) Eos # (Auto) Baso # (Auto) Abs Immat Gran (auto) Absolute Neuts (auto) Absolute Nucleated RBC Total Counted Neutrophils % (Manual) Band Neutrophils % Lymphocytes % (Manual) Monocytes % (Manual) Nucleated RBC % Abs Neuts (Manual) Abs Lymphs (Manual) Abs Monocytes (Manual) Smudge Cells Platelet Estimate Anisocytosis Tear Drop Cells Schistocytes Puncture Site Right radial ABG pH 7.285 L* ABG pCO2 53.1 H ABG pO2 108.6 H ABG PO2/FiO2 Ratio 1.09 ABG HCO3 24.7 ABG O2 Saturation 97.3 ABG O2 Content 12.0 L ABG Base Excess -2.1 A-a Gradient 551.3 Oxyhemoglobin 96.8 Carboxyhemoglobin 0.9 Methemoglobin 0.0 Reduced Hemoglobin 2.3 Total Hemoglobin 8.7 L O2 Delivery Device Ventilator O2 Liters/Min Not Reportable Minute Volume Not Reportable Vent Rate 28 Vent Mode Cmv FiO2 100 Tidal Volume 370 PEEP 12 Peak Inspir Pressure Not Reportable Pressure Support Not Reportable Sodium Potassium Chloride Carbon Dioxide Anion Gap BUN Creatinine Estim Creat Clear Calc Estimated GFR Glucose POC Capillary Glucose 196 H 230 H Calcium Phosphorus Magnesium Total Bilirubin AST ALT Alkaline Phosphatase Total Protein Albumin 09/29/24 09/29/24 09/29/24 15:52 17:11 17:53 WBC RBC Hgb Hct MCV MCH MCHC RDW Plt Count MPV Immature Gran % (Auto) Neut % (Auto) Lymph % (Auto) [place] % (Auto) Eos % (Auto) Baso % (Auto) Lymph # (Auto) [place] # (Auto) Eos # (Auto) Baso # (Auto) Abs Immat Gran (auto) Absolute Neuts (auto) Absolute Nucleated RBC Total Counted Neutrophils % (Manual) Band Neutrophils % Lymphocytes % (Manual) Monocytes % (Manual) Nucleated RBC % Abs Neuts (Manual) Abs Lymphs (Manual) Abs Monocytes (Manual) Smudge Cells Platelet Estimate Anisocytosis Tear Drop Cells Schistocytes Puncture Site ABG pH ABG pCO2 ABG pO2 ABG PO2/FiO2 Ratio ABG HCO3 ABG O2 Saturation ABG O2 Content ABG Base Excess A-a Gradient Oxyhemoglobin Carboxyhemoglobin Methemoglobin Reduced Hemoglobin Total Hemoglobin O2 Delivery Device O2 Liters/Min Minute Volume Vent Rate Vent Mode FiO2 Tidal Volume PEEP Peak Inspir Pressure Pressure Support Sodium Potassium Chloride Carbon Dioxide Anion Gap BUN Creatinine Estim Creat Clear Calc Estimated GFR Glucose POC Capillary Glucose 286 H 292 H 285 H Calcium Phosphorus Magnesium Total Bilirubin AST ALT Alkaline Phosphatase Total Protein Albumin 09/29/24 09/29/24 09/29/24 18:52 19:42 20:43 WBC RBC Hgb Hct MCV MCH MCHC RDW Plt Count MPV Immature Gran % (Auto) Neut % (Auto) Lymph % (Auto) [place] % (Auto) Eos % (Auto) Baso % (Auto) Lymph # (Auto) [place] # (Auto) Eos # (Auto) Baso # (Auto) Abs Immat Gran (auto) Absolute Neuts (auto) Absolute Nucleated RBC Total Counted Neutrophils % (Manual) Band Neutrophils % Lymphocytes % (Manual) Monocytes % (Manual) Nucleated RBC % Abs Neuts (Manual) Abs Lymphs (Manual) Abs Monocytes (Manual) Smudge Cells Platelet Estimate Anisocytosis Tear Drop Cells Schistocytes Puncture Site ABG pH ABG pCO2 ABG pO2 ABG PO2/FiO2 Ratio ABG HCO3 ABG O2 Saturation ABG O2 Content ABG Base Excess A-a Gradient Oxyhemoglobin Carboxyhemoglobin Methemoglobin Reduced Hemoglobin Total Hemoglobin O2 Delivery Device O2 Liters/Min Minute Volume Vent Rate Vent Mode FiO2 Tidal Volume PEEP Peak Inspir Pressure Pressure Support Sodium Potassium Chloride Carbon Dioxide Anion Gap BUN Creatinine Estim Creat Clear Calc Estimated GFR Glucose POC Capillary Glucose 281 H 273 H 212 H Calcium Phosphorus Magnesium Total Bilirubin AST ALT Alkaline Phosphatase Total Protein Albumin 09/29/24 09/29/24 09/29/24 21:38 22:43 23:40 WBC RBC Hgb Hct MCV MCH MCHC RDW Plt Count MPV Immature Gran % (Auto) Neut % (Auto) Lymph % (Auto) [place] % (Auto) Eos % (Auto) Baso % (Auto) Lymph # (Auto) [place] # (Auto) Eos # (Auto) Baso # (Auto) Abs Immat Gran (auto) Absolute Neuts (auto) Absolute Nucleated RBC Total Counted Neutrophils % (Manual) Band Neutrophils % Lymphocytes % (Manual) Monocytes % (Manual) Nucleated RBC % Abs Neuts (Manual) Abs Lymphs (Manual) Abs Monocytes (Manual) Smudge Cells Platelet Estimate Anisocytosis Tear Drop Cells Schistocytes Puncture Site ABG pH ABG pCO2 ABG pO2 ABG PO2/FiO2 Ratio ABG HCO3 ABG O2 Saturation ABG O2 Content ABG Base Excess A-a Gradient Oxyhemoglobin Carboxyhemoglobin Methemoglobin Reduced Hemoglobin Total Hemoglobin O2 Delivery Device O2 Liters/Min Minute Volume Vent Rate Vent Mode FiO2 Tidal Volume PEEP Peak Inspir Pressure Pressure Support Sodium Potassium Chloride Carbon Dioxide Anion Gap BUN Creatinine Estim Creat Clear Calc Estimated GFR Glucose POC Capillary Glucose 142 H 215 H 222 H Calcium Phosphorus Magnesium Total Bilirubin AST ALT Alkaline Phosphatase Total Protein Albumin 09/30/24 09/30/24 09/30/24 00:37 02:18 02:49 WBC RBC Hgb Hct MCV MCH MCHC RDW Plt Count MPV Immature Gran % (Auto) Neut % (Auto) Lymph % (Auto) [place] % (Auto) Eos % (Auto) Baso % (Auto) Lymph # (Auto) [place] # (Auto) Eos # (Auto) Baso # (Auto) Abs Immat Gran (auto) Absolute Neuts (auto) Absolute Nucleated RBC Total Counted Neutrophils % (Manual) Band Neutrophils % Lymphocytes % (Manual) Monocytes % (Manual) Nucleated RBC % Abs Neuts (Manual) Abs Lymphs (Manual) Abs Monocytes (Manual) Smudge Cells Platelet Estimate Anisocytosis Tear Drop Cells Schistocytes Puncture Site Right radial ABG pH 7.261 L* ABG pCO2 49.4 H ABG pO2 86.8 ABG PO2/FiO2 Ratio 1.02 ABG HCO3 21.7 L ABG O2 Saturation 95.2 ABG O2 Content 11.6 L ABG Base Excess -5.2 A-a Gradient 468.0 Oxyhemoglobin 94.4 Carboxyhemoglobin 0.9 Methemoglobin 0.1 Reduced Hemoglobin 4.6 Total Hemoglobin 8.6 L O2 Delivery Device Ventilator O2 Liters/Min Not Reportable Minute Volume Not Reportable Vent Rate 28 Vent Mode Cmv FiO2 85 Tidal Volume 370 PEEP 12 Peak Inspir Pressure Not Reportable Pressure Support Not Reportable Sodium Potassium Chloride Carbon Dioxide Anion Gap BUN Creatinine Estim Creat Clear Calc Estimated GFR Glucose POC Capillary Glucose 229 H 269 H Calcium Phosphorus Magnesium Total Bilirubin AST ALT Alkaline Phosphatase Total Protein Albumin 09/30/24 09/30/24 09/30/24 02:57 03:58 04:15 WBC 52.1 H* RBC 3.21 L Hgb 8.0 L Hct 24.3 L MCV 75.7 L MCH 24.9 L MCHC 32.9 RDW 19.8 H Plt Count 223 MPV 11.9 H Immature Gran % (Auto) Not Reportable Neut % (Auto) Not Reportable Lymph % (Auto) Not Reportable [place] % (Auto) Not Reportable Eos % (Auto) Not Reportable Baso % (Auto) Not Reportable Lymph # (Auto) Not Reportable [place] # (Auto) Not Reportable Eos # (Auto) Not Reportable Baso # (Auto) Not Reportable Abs Immat Gran (auto) Not Reportable Absolute Neuts (auto) Not Reportable Absolute Nucleated RBC Not Reportable Total Counted 100 Neutrophils % (Manual) 85 H Band Neutrophils % 11 H Lymphocytes % (Manual) 1.0 L Monocytes % (Manual) 3 Nucleated RBC % Not Reportable Abs Neuts (Manual) 50.01 H Abs Lymphs (Manual) 0.52 L Abs Monocytes (Manual) 1.56 H Smudge Cells Present Platelet Estimate Adequate Anisocytosis 1+ Tear Drop Cells 1+ Schistocytes None seen Puncture Site ABG pH ABG pCO2 ABG pO2 ABG PO2/FiO2 Ratio ABG HCO3 ABG O2 Saturation ABG O2 Content ABG Base Excess A-a Gradient Oxyhemoglobin Carboxyhemoglobin Methemoglobin Reduced Hemoglobin Total Hemoglobin O2 Delivery Device O2 Liters/Min Minute Volume Vent Rate Vent Mode FiO2 Tidal Volume PEEP Peak Inspir Pressure Pressure Support Sodium 128 L Potassium 5.5 H Chloride 94 L Carbon Dioxide 19 L Anion Gap 15 H BUN 92 H D Creatinine 3.43 H Estim Creat Clear Calc 19 Estimated GFR 15 L Glucose 321 H POC Capillary Glucose 315 H 323 H Calcium 8.9 Phosphorus 7.2 H Magnesium 2.4 H Total Bilirubin 0.8 AST 91 H ALT 53 H Alkaline Phosphatase 528 H Total Protein 6.0 L Albumin 2.5 L 09/30/24 09/30/24 09/30/24 05:37 06:53 07:48 WBC RBC Hgb Hct MCV MCH MCHC RDW Plt Count MPV Immature Gran % (Auto) Neut % (Auto) Lymph % (Auto) [place] % (Auto) Eos % (Auto) Baso % (Auto) Lymph # (Auto) [place] # (Auto) Eos # (Auto) Baso # (Auto) Abs Immat Gran (auto) Absolute Neuts (auto) Absolute Nucleated RBC Total Counted Neutrophils % (Manual) Band Neutrophils % Lymphocytes % (Manual) Monocytes % (Manual) Nucleated RBC % Abs Neuts (Manual) Abs Lymphs (Manual) Abs Monocytes (Manual) Smudge Cells Platelet Estimate Anisocytosis Tear Drop Cells Schistocytes Puncture Site ABG pH ABG pCO2 ABG pO2 ABG PO2/FiO2 Ratio ABG HCO3 ABG O2 Saturation ABG O2 Content ABG Base Excess A-a Gradient Oxyhemoglobin Carboxyhemoglobin Methemoglobin Reduced Hemoglobin Total Hemoglobin O2 Delivery Device O2 Liters/Min Minute Volume Vent Rate Vent Mode FiO2 Tidal Volume PEEP Peak Inspir Pressure Pressure Support Sodium Potassium Chloride Carbon Dioxide Anion Gap BUN Creatinine Estim Creat Clear Calc Estimated GFR Glucose POC Capillary Glucose 313 H 268 H 244 H Calcium Phosphorus Magnesium Total Bilirubin AST ALT Alkaline Phosphatase Total Protein Albumin 09/30/24 09/30/24 09/30/24 08:48 10:27 10:31 WBC RBC Hgb Hct MCV MCH MCHC RDW Plt Count MPV Immature Gran % (Auto) Neut % (Auto) Lymph % (Auto) [place] % (Auto) Eos % (Auto) Baso % (Auto) Lymph # (Auto) [place] # (Auto) Eos # (Auto) Baso # (Auto) Abs Immat Gran (auto) Absolute Neuts (auto) Absolute Nucleated RBC Total Counted Neutrophils % (Manual) Band Neutrophils % Lymphocytes % (Manual) Monocytes % (Manual) Nucleated RBC % Abs Neuts (Manual) Abs Lymphs (Manual) Abs Monocytes (Manual) Smudge Cells Platelet Estimate Anisocytosis Tear Drop Cells Schistocytes Puncture Site ABG pH ABG pCO2 ABG pO2 ABG PO2/FiO2 Ratio ABG HCO3 ABG O2 Saturation ABG O2 Content ABG Base Excess A-a Gradient Oxyhemoglobin Carboxyhemoglobin Methemoglobin Reduced Hemoglobin Total Hemoglobin O2 Delivery Device O2 Liters/Min Minute Volume Vent Rate Vent Mode FiO2 Tidal Volume PEEP Peak Inspir Pressure Pressure Support Sodium Cancelled Potassium Cancelled Chloride Cancelled Carbon Dioxide Cancelled Anion Gap Cancelled BUN Cancelled Creatinine Cancelled Estim Creat Clear Calc Cancelled Estimated GFR Cancelled Glucose Cancelled POC Capillary Glucose 286 H 228 H Calcium Cancelled Phosphorus Magnesium Total Bilirubin AST ALT Alkaline Phosphatase Total Protein Albumin Quality VTE Prophylaxis VTE prophylaxis: pharmacologic ordered
[2024-09-30 10:59] LABS: Anion Gap 14 mmol/L (4-12); Blood Urea Nitrogen 100 mg/dL (7-17); Calcium 8.9 mg/dL (8.4-10.2); Carbon Dioxide 23 mmol/L (22-30); Chloride 93 mmol/L (98-107); Glucose 241 mg/dL (65-110); Potassium 5.3 mmol/L (3.4-5.0); Sodium 130 mmol/L (137-145)
[2024-09-30 11:05] LABS: Estimated CRCL calculation 17 ml/min; Estimated Glomerular Filt Rate 13
[2024-09-30 11:40] LABS: Glucose Point of Care 216 mg/dl (65-105)
[2024-09-30 13:15] LABS: Glucose Point of Care 180 mg/dl (65-105)
[2024-09-30 14:26] LABS: Glucose Point of Care 225 mg/dl (65-105)
--- NOTE | 2024-09-30 14:51 | PM.IMPN ---
Progress Note: A&P Assessment and Plan (1) Spontaneous pneumothorax: Code(s): J93.83 - Other pneumothorax Status: Acute Assessment and Plan: 09/25/2024: In the afternoon patient started to desaturate with O2 sats in the mid 80s, peep was increased, FiO2 was increased with no improvement, on auscultation left-sided breath sounds were decreased, stat chest x-ray showed spontaneous pneumothorax. Chest tube was inserted on 09/25, by surgery. Chest x-ray post chest tube insertion showed resolution of the pneumothorax with improvement in O2 sats. -surgery to manage chest tube -no air leak noted (2) Acute hypoxic respiratory failure: Code(s): J96.01 - Acute respiratory failure with hypoxia Status: Acute Assessment and Plan: Acute respiratory failure secondary to influenza A and pneumonia proceeding to ARDS 09/20: Intubated in the ER Patient now intubated and on mechanical ventilation ABG reviewed. will allow permissive hypercapnia. -tidal volume 340 mL, peep 12, FiO2 80%. Continue to wean FiO2 to maintain O2 sats > 92% Continue sedation with Versed and propofol Bronchodilators 09/27: increased FiO2 requirements, on high Ventilatory support. Added Pulmozyme and Mucomyst nebs. Placed pt in prone position 09/28: Chest x-ray unchanged, ABGs reviewed, increase tidal volume, continue prone positioning, continue Pulmozyme and Mucomyst nebs 09/29: Patient placed in supine position after 48 hours. Started on Flolan 09/29: Discussed CT chest results with Radiology and pulmonology, most likely related to Staph aureus, multiple cavities renal lesions. Recommended transferring patient for higher level of care for infectious disease to evaluate and treat -family did not want patient to be transferred to [facility] for higher level of care and they have decided to withdraw support on 10/01/2024 once more family members arrive and since the goodbyes to the patient 09/29/2024: CTA chest abdomen and pelvis IMPRESSION: 1. No evident pulmonary embolism. Sensitivity decreased in the segmental and subsegmental pulmonary arteries due to combination of respiratory motion and streak artifact. 2. Significant interval progression in diffuse bilateral lung disease with interval development of numerous cavitary lesions throughout both lungs consistent with cavitary pneumonia and ARDS. 3. Left chest tube in the left major fissure. No pneumothorax or pleural effusion. 4. Very small amount of ascites in the pelvis. No abscess or other acute intra-abdominal/pelvic process. 09/20: CTA chest Bilateral multifocal pneumonia, most extensively involving the lower lobes. No pulmonary embolus seen. (3) Uncontrolled diabetes mellitus: Status: Acute Assessment and Plan: SSI Hyperglycemia with blood sugars in the 300s to 400s, -continue insulin infusion -off Lantus Continue tube feeds (4) Septic shock: Code(s): A41.9 - Sepsis, unspecified organism; R65.21 - Severe sepsis with septic shock Status: Acute Assessment and Plan: Septic shock secondary to pneumonia Hold further IV fluids off Stress dose steroids 09/19: Blood cultures are negative till now 09/21: Sputum cultures growing Staph aureus 09/27: Switched vancomycin and cefepime to linezolid and meropenem, WBC count trending up, afebrile, bandemia -completed 5 day course of doxycycline 09/27: Repeat Blood cultures growing MRSA 1 of 2 bottles 09/27: Repeat sputum cultures growing MRSA CT scan of the chest abdomen and pelvis as above Continue Levophed at 5 mcg/min for adequate end organ perfusion, maintain MAP > 65 mg Or SBP> 100 mmHg. (5) PNA (pneumonia): Code(s): J18.9 - Pneumonia, unspecified organism Status: Acute Assessment and Plan: See above (6) Hypothyroidism: Code(s): E03.9 - Hypothyroidism, unspecified Status: Acute Assessment and Plan: Continue levothyroxine Normal TSH (7) Influenza: Code(s): J11.1 - Influenza due to unidentified influenza virus with other respiratory manifestations Status: Acute Assessment and Plan: Isolation Status post Tamiflu (8) SCAR (acute kidney injury): Code(s): N17.9 - Acute kidney failure, unspecified Status: Acute Assessment and Plan: Patient presented with elevated creatinine which has been gradually getting worse This is likely multifactorial secondary to sepsis, shock possible contrast induced injury. 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 Mail Clerk feels that urine output has improved over last 24 hours. Recommends continuing Lasix for another 24 hours and re-evaluate need for dialysis 09/25: Worsening and creatinine and BUN despite diuretics, will discuss with Nephrology regarding dialysis 09/26: Discussed with Nephrology, patient is making good urine despite but her BUN and creatinine trending up, discussed with family regarding dialysis, family okay with dialysis. HD catheter placed in left IJ. Started HD Dialysis per nephrology 09/30: Will treat hyperkalemia (9) Shock liver: Code(s): K72.00 - Acute and subacute hepatic failure without coma Status: Acute Assessment and Plan: Elevated AST and ALT likely secondary to shock liver and cholestasis secondary to sepsis and shock US right upper quadrant ultrasound shows gallbladder wall thickening nonspecific no evidence of gallstones. Fatty infiltration of the liver Negative hepatitis panel LFTs improving, bilirubin is normal Continue to monitor (10) Thrombocytopenia: Code(s): D69.6 - Thrombocytopenia, unspecified Status: Acute Assessment and Plan: Gradual in platelet count since admission likely multifactorial secondary to sepsis medications and hemodilution -platelets are back to normal, continue Lovenox Plan DVT prophylaxis -SCDs, restarted Lovenox as thrombocytopenia has resolved, Stress ulcer prophylaxis -Protonix Nutrition - tolerating tube feeds Code Status - Full Code Total Critical Care Time: 35 minutes Discussed with patient's mother yesterday who is the POA, updated with patient's condition and plan of care. I answered all questions. Patient has been accepted to [facility], [facility], [facility], accepting physician Dr. PIRES. Patient will transfer was the have a bed available patient with acute respiratory failure secondary to influenza A and pneumonia developing ARDS, on 09/25 while on the ventilator patient desaturated and was found to have left sided spontaneous pneumothorax, surgery was consulted and chest tube was placed which remains in place, post chest tube x-ray showed resolution of the pneumothorax and seen by general surgery service, patient is now getting daily HD and managed by nephrology service, patient remain critically ill, in prone position managed by sr. unix system administrator. Today to further evaluate patient had a CT scan of the chest showed significant interval progression in diffuse bilateral lung disease with interval development of numerous cavitary lesions throughout both lungs consistent with cavitary pneumonia and ARDS. on 09/29 Patient clinical symptoms had worsened discussed with sr. unix system administrator plan was to transfer the patient to [facility], also discussed with patient's mother and a sister and answered all their questions. Patine family decided not to transfer to [facility] and will withdraw care on WednesdayOctober 01 when the family members are present.. 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 Patient had been taking NyQuil and Motrin at night. She reported fevers of 103.5 to nursing staff. On arrival she was lethargic drowsy and hot to touch with marked pallor. Her T-max in the ER was 104.6. She was initially placed on a non-rebreather with improvement her oxygen saturations to 92%. However shortly thereafter her work of breathing continued to increase in her oxygen saturations were dropping. An ABG was performed which demonstrated respiratory alkalosis with a PO2 of 64. She was placed on BiPAP but she would not tolerate the BiPAP and continue to pull it off. She was tried on high-flow nasal cannula but was only maintaining oxygen saturations in the low to mid 80s. She was subsequently intubated. She had an elevated D-dimer and had a CTA demonstrated bilateral multifocal pneumonia without evidence of pulmonary embolism. The patient was requiring a PEEP of 8 and 100% FiO2 to maintain oxygen saturations of 88-92%. The patient was started on empiric antibiotic therapy with cefepime doxycycline and vancomycin. She received 3 L isotonic IV fluid resuscitation (greater than 30 mL/kilos). Shortly after my evaluation the patient became acutely hypotensive. patient with acute respiratory failure secondary to influenza A and pneumonia developing ARDS, on 09/25 while on the ventilator patient desaturated and was found to have left sided spontaneous pneumothorax, surgery was consulted and chest tube was placed which remains in place, post chest tube x-ray showed resolution of the pneumothorax and seen by general surgery service, patient is now getting daily HD and managed by nephrology service, patient remain critically ill, in prone position managed by sr. unix system administrator. Today to further evaluate patient had a CT scan of the chest showed significant interval progression in diffuse bilateral lung disease with interval development of numerous cavitary lesions throughout both lungs consistent with cavitary pneumonia and ARDS. on 09/29 Patient clinical symptoms had worsened discussed with sr. unix system administrator plan was to transfer the patient to [facility], also discussed with patient's mother and a sister and answered all their questions. Patine family decided not to transfer to [facility] and will withdraw care on WednesdayOctober 01 when the family members are present. Exam Narrative: Patient is comfortable, in prone position HEENT: ET tube in place LUNGS: Bilateral poor air entry ABD: in prone position Lower extremities: no edema SKIN: nonjaundiced Neuro: Sedated and intubated Objective Data Vital Signs Vital Signs: Vital Signs - 24 hr 09/29/24 14:58 09/29/24 14:58 09/29/24 15:00 Temperature Pulse Rate 110 H 110 H 111 H Respiratory Rate 28 H 28 H 28 H Blood Pressure 104/63 Pulse Oximetry Oxygen Delivery Fraction of Inspired Oxygen 09/29/24 15:51 09/29/24 16:00 09/29/24 16:00 Temperature Pulse Rate 110 H 110 H 110 H Respiratory Rate 28 H 28 H Blood Pressure Pulse Oximetry 93 93 Oxygen Delivery Mechanical Ventilation Fraction of Inspired Oxygen 90 09/29/24 16:00 09/29/24 16:00 09/29/24 16:00 Temperature Pulse Rate 110 H 110 H 110 H Respiratory Rate 28 H 28 H Blood Pressure 106/66 106/66 Pulse Oximetry Oxygen Delivery Fraction of Inspired Oxygen 09/29/24 16:00 09/29/24 16:00 09/29/24 16:00 Temperature Pulse Rate 110 H Respiratory Rate 28 H Blood Pressure Pulse Oximetry 92 Oxygen Delivery Mechanical Ventilation Fraction of Inspired Oxygen 90 90 09/29/24 16:00 09/29/24 17:00 09/29/24 17:00 Temperature 37.5 C Pulse Rate 110 H 108 H 108 H Respiratory Rate 27 H 28 H Blood Pressure 106/66 100/62 116/67 Pulse Oximetry 92 Oxygen Delivery Fraction of Inspired Oxygen 09/29/24 17:57 09/29/24 17:57 09/29/24 18:00 Temperature 37.6 C Pulse Rate 110 H 110 H 111 H Respiratory Rate 28 H Blood Pressure 111/65 111/65 103/67 Pulse Oximetry 93 Oxygen Delivery Fraction of Inspired Oxygen 09/29/24 18:00 09/29/24 18:00 09/29/24 18:00 Temperature Pulse Rate 111 H 111 H 111 H Respiratory Rate 28 H 28 H Blood Pressure 103/67 Pulse Oximetry Oxygen Delivery Fraction of Inspired Oxygen 09/29/24 18:00 09/29/24 18:00 09/29/24 18:00 Temperature Pulse Rate 111 H 111 H Respiratory Rate 28 H Blood Pressure 103/67 Pulse Oximetry Oxygen Delivery Fraction of Inspired Oxygen 85 09/29/24 18:01 09/29/24 19:00 09/29/24 19:37 Temperature Pulse Rate 108 H 108 H 108 H Respiratory Rate 28 H 28 H Blood Pressure 99/63 L Pulse Oximetry 93 95 Oxygen Delivery Mechanical Ventilation Fraction of Inspired Oxygen 90 09/29/24 20:00 09/29/24 20:00 09/29/24 20:00 Temperature Pulse Rate 105 H 105 H 105 H Respiratory Rate 28 H 28 H 28 H Blood Pressure 102/59 L Pulse Oximetry Oxygen Delivery Fraction of Inspired Oxygen 09/29/24 20:00 09/29/24 20:00 09/29/24 20:00 Temperature Pulse Rate 105 H 105 H 108 H Respiratory Rate 28 H Blood Pressure 102/59 L Pulse Oximetry 95 Oxygen Delivery Mechanical Ventilation Fraction of Inspired Oxygen 85 09/29/24 20:00 09/29/24 20:00 09/29/24 20:52 Temperature 37.4 C Pulse Rate 108 H 105 H Respiratory Rate 28 H 28 H Blood Pressure 102/59 L Pulse Oximetry 93 Oxygen Delivery Fraction of Inspired Oxygen 85 09/29/24 20:52 09/29/24 20:57 09/29/24 20:57 Temperature Pulse Rate 105 H 105 H 105 H Respiratory Rate 28 H 28 H 28 H Blood Pressure 93/61 L 93/61 L Pulse Oximetry Oxygen Delivery Fraction of Inspired Oxygen 09/29/24 20:58 09/29/24 21:30 09/29/24 22:00 Temperature Pulse Rate 105 H 110 H 102 H Respiratory Rate 28 H 28 H Blood Pressure 93/61 L Pulse Oximetry 95 Oxygen Delivery Fraction of Inspired Oxygen 09/29/24 22:00 09/29/24 22:00 09/29/24 22:00 Temperature Pulse Rate 102 H 102 H 102 H Respiratory Rate 28 H 28 H Blood Pressure 95/60 L 95/60 L Pulse Oximetry Oxygen Delivery Fraction of Inspired Oxygen 09/29/24 22:00 09/29/24 22:00 09/29/24 22:40 Temperature 37.2 C Pulse Rate 103 H 103 H 104 H Respiratory Rate 28 H Blood Pressure 94/60 L Pulse Oximetry 95 96 Oxygen Delivery Mechanical Ventilation Fraction of Inspired Oxygen 85 09/29/24 22:40 09/30/24 00:00 09/30/24 00:00 Temperature Pulse Rate 104 H 100 100 Respiratory Rate 28 H 28 H 28 H Blood Pressure 92/61 L Pulse Oximetry 96 Oxygen Delivery Fraction of Inspired Oxygen 09/30/24 00:00 09/30/24 00:00 09/30/24 00:00 Temperature Pulse Rate 100 100 100 Respiratory Rate 28 H 28 H Blood Pressure 92/61 L Pulse Oximetry 93 Oxygen Delivery Mechanical Ventilation Fraction of Inspired Oxygen 85 09/30/24 00:00 09/30/24 00:00 09/30/24 00:00 Temperature 37.0 C Pulse Rate 100 101 H Respiratory Rate 28 H Blood Pressure 92/61 L Pulse Oximetry 93 Oxygen Delivery Fraction of Inspired Oxygen 85 09/30/24 01:24 09/30/24 01:24 09/30/24 02:00 Temperature Pulse Rate 105 H 103 H 102 H Respiratory Rate 28 H 28 H Blood Pressure Pulse Oximetry 95 95 Oxygen Delivery Mechanical Ventilation Fraction of Inspired Oxygen 85 09/30/24 02:00 09/30/24 02:00 09/30/24 02:00 Temperature Pulse Rate 102 H 102 H 102 H Respiratory Rate 28 H 28 H Blood Pressure 98/59 L 98/59 L Pulse Oximetry Oxygen Delivery Fraction of Inspired Oxygen 09/30/24 02:00 09/30/24 02:00 09/30/24 02:28 Temperature 37.0 C Pulse Rate 104 H 102 H 103 H Respiratory Rate 28 H 28 H Blood Pressure 98/59 L Pulse Oximetry 94 Oxygen Delivery Fraction of Inspired Oxygen 09/30/24 02:28 09/30/24 04:00 09/30/24 04:00 Temperature Pulse Rate 103 H 102 H Respiratory Rate 28 H 28 H Blood Pressure Pulse Oximetry 91 Oxygen Delivery Mechanical Ventilation Fraction of Inspired Oxygen 85 85 09/30/24 04:00 09/30/24 04:00 09/30/24 04:00 Temperature 37.0 C Pulse Rate 102 H 102 H 102 H Respiratory Rate 28 H 28 H 28 H Blood Pressure 100/59 L 100/59 L Pulse Oximetry 91 Oxygen Delivery Fraction of Inspired Oxygen 09/30/24 04:00 09/30/24 04:00 09/30/24 04:00 Temperature Pulse Rate 102 H 102 H 103 H Respiratory Rate 28 H Blood Pressure 100/59 L Pulse Oximetry Oxygen Delivery Fraction of Inspired Oxygen 09/30/24 04:25 09/30/24 04:25 09/30/24 04:58 Temperature Pulse Rate 102 H 102 H 105 H Respiratory Rate 28 H 28 H Blood Pressure 92/57 L Pulse Oximetry 96 96 Oxygen Delivery Mechanical Ventilation Fraction of Inspired Oxygen 85 09/30/24 05:08 09/30/24 06:00 09/30/24 06:00 Temperature 37.2 C Pulse Rate 105 H 111 H 109 H Respiratory Rate 28 H 28 H Blood Pressure 92/57 L 104/55 L Pulse Oximetry 94 Oxygen Delivery Fraction of Inspired Oxygen 09/30/24 06:00 09/30/24 06:00 09/30/24 06:00 Temperature Pulse Rate 109 H 109 H 109 H Respiratory Rate 28 H 28 H 28 H Blood Pressure 104/55 L Pulse Oximetry Oxygen Delivery Fraction of Inspired Oxygen 09/30/24 06:00 09/30/24 06:51 09/30/24 07:45 Temperature Pulse Rate 109 H 113 H 115 H Respiratory Rate 28 H Blood Pressure 104/55 L Pulse Oximetry 95 93 Oxygen Delivery Mechanical Ventilation Fraction of Inspired Oxygen 85 09/30/24 07:45 09/30/24 07:45 09/30/24 08:00 Temperature Pulse Rate 115 H 115 H 115 H Respiratory Rate 28 H 28 H 28 H Blood Pressure 104/57 L Pulse Oximetry 93 Oxygen Delivery Fraction of Inspired Oxygen 09/30/24 08:00 09/30/24 08:00 09/30/24 08:00 Temperature 37.8 C H Pulse Rate 115 H 115 H Respiratory Rate 28 H 28 H Blood Pressure 105/60 Pulse Oximetry 94 Oxygen Delivery Fraction of Inspired Oxygen 85 09/30/24 08:00 09/30/24 08:00 09/30/24 08:00 Temperature Pulse Rate 114 H 115 H Respiratory Rate Blood Pressure 105/60 Pulse Oximetry 94 Oxygen Delivery Mechanical Ventilation Fraction of Inspired Oxygen 85 09/30/24 08:25 09/30/24 08:39 09/30/24 08:39 Temperature Pulse Rate 119 H 118 H 118 H Respiratory Rate 28 H 28 H 28 H Blood Pressure 101/51 L Pulse Oximetry Oxygen Delivery Fraction of Inspired Oxygen 09/30/24 08:57 09/30/24 09:00 09/30/24 09:56 Temperature Pulse Rate 120 H 120 H 119 H Respiratory Rate 28 H 28 H Blood Pressure 112/53 L Pulse Oximetry 94 95 Oxygen Delivery Mechanical Ventilation Fraction of Inspired Oxygen 85 09/30/24 09:56 09/30/24 10:00 09/30/24 10:00 Temperature Pulse Rate 119 H 119 H 119 H Respiratory Rate 28 H 28 H 28 H Blood Pressure 103/55 L Pulse Oximetry 95 Oxygen Delivery Fraction of Inspired Oxygen 09/30/24 10:00 09/30/24 10:00 09/30/24 10:00 Temperature 38.2 C H Pulse Rate 119 H 119 H 119 H Respiratory Rate 28 H 28 H Blood Pressure 101/57 L Pulse Oximetry 95 Oxygen Delivery Fraction of Inspired Oxygen 09/30/24 10:00 09/30/24 10:22 09/30/24 10:30 Temperature Pulse Rate 119 H 119 H 119 H Respiratory Rate 28 H 28 H Blood Pressure 101/57 L Pulse Oximetry Oxygen Delivery Fraction of Inspired Oxygen 09/30/24 11:55 09/30/24 12:00 09/30/24 12:00 Temperature Pulse Rate 120 H Respiratory Rate Blood Pressure 105/58 L Pulse Oximetry 94 Oxygen Delivery Mechanical Ventilation Fraction of Inspired Oxygen 85 85 09/30/24 12:00 09/30/24 12:00 09/30/24 12:00 Temperature 37.7 C H Pulse Rate 72 120 H 120 H Respiratory Rate 24 H 28 H 28 H Blood Pressure 122/85 104/56 L Pulse Oximetry 93 Oxygen Delivery Fraction of Inspired Oxygen 09/30/24 12:00 09/30/24 12:00 09/30/24 12:15 Temperature Pulse Rate 120 H 119 H 120 H Respiratory Rate 28 H Blood Pressure Pulse Oximetry 94 Oxygen Delivery Mechanical Ventilation Fraction of Inspired Oxygen 85 09/30/24 12:15 09/30/24 13:45 09/30/24 14:00 Temperature Pulse Rate 120 H 116 H 115 H Respiratory Rate 28 H 28 H 28 H Blood Pressure 98/54 L Pulse Oximetry 94 Oxygen Delivery Fraction of Inspired Oxygen 09/30/24 14:00 09/30/24 14:00 09/30/24 14:23 Temperature 38.3 C H Pulse Rate 115 H 115 H 112 H Respiratory Rate 28 H 28 H Blood Pressure 98/57 L 97/58 L Pulse Oximetry 93 Oxygen Delivery Fraction of Inspired Oxygen 09/30/24 14:28 09/30/24 14:28 09/30/24 14:41 Temperature Pulse Rate 111 H 111 H 110 H Respiratory Rate 28 H 28 H Blood Pressure Pulse Oximetry 94 94 Oxygen Delivery Mechanical Ventilation Fraction of Inspired Oxygen 85 09/30/24 14:41 09/30/24 14:46 Temperature Pulse Rate 110 H 111 H Respiratory Rate 28 H 28 H Blood Pressure 102/62 Pulse Oximetry Oxygen Delivery Fraction of Inspired Oxygen Intake/Output Intake/Output: Intake & Output 09/27/24 09/28/24 09/29/24 09/30/24 23:59 23:59 23:59 23:59 Intake Total 2092.0 2549.4 2657.2 1819.0 Output Total 1170 2037 5 37 Balance 922.0 512.4 2652.2 1782.0 Meds/Results Medications: Active Medications Generic Name Dose Route Start Last Admin Trade Name Freq PRN Reason Stop Dose Admin Acetaminophen 650 mg 09/20/24 19:03 09/29/24 06:51 Acetaminophen Elixir 325 Mg/10.15 Ml Udc PO 650 mg Q4H PRN Administration Mild Pain (1-3) or Fever Albuterol/Ipratropium 3 ml 09/22/24 08:26 09/29/24 02:46 Ipratropium 0.5 Mg/Albuterol Sulfate 2.5 Mg Ampul.Neb 3 Ml INHALATION 3 ml Q6HRT PRN Administration wheezing Dextrose 12.5 gm 09/20/24 03:19 Dextrose 50% 25 Gm/50 Ml Syringe IV PUSH PRN PRN Hypoglycemia Protocol Enoxaparin Sodium 30 mg 09/27/24 09:00 09/30/24 08:07 Enoxaparin 30 Mg/0.3 Ml Syringe SUB-Q 30 mg DAILY TOMY Administration Epoprostenol Sodium 1 mg 09/29/24 08:56 09/30/24 14:27 Epoprostenol Sodium 0.5 Mg Vial INHALATION 1 mg PRN PRN Administration Titrate Glucagon 1 mg 09/20/24 03:19 Glucagon For Inj 1 Mg Vial IM PRN PRN Hypoglycemia Protocol Glucose 15 gm 09/20/24 03:19 Glucose Oral Gel 15 Gm Of Glucse In 37.5 Gm Tube PO PRN PRN Hypoglycemia Protocol Dextrose 1,000 mls @ 100 mls/hr 09/20/24 03:19 Dextrose 5% 1,000 Ml IVPB PRN PRN Hypoglycemia Protocol Midazolam HCl 100 mg in 100 mls @ 5 mls/hr 09/20/24 22:10 09/30/24 14:00 Versed 100 Mg/Ns 100 Ml IV CONT 5 mg/hr .Q20H TOMY 5 mls/hr Titration Protocol 5 MG/HR Albumin Human 50 mls @ 999 mls/hr 09/26/24 12:07 09/28/24 10:41 Albutein IVPB 10/26/24 12:06 999 mls/hr Q10M PRN Administration HYPOTENSION Propofol 100 mls @ 14.574 mls/hr 09/27/24 10:15 09/30/24 14:41 Diprivan IV CONT 35 mcg/kg/min .Q6H52M TOMY 14.57 mls/hr Administration Protocol 35 MCG/KG/MIN Norepinephrine Bitartrate 8 mg in 250 mls @ 0 mls/hr 09/27/24 10:15 09/30/24 11:55 Levophed 8 Mg/D5w 250 Ml IV CONT 0 mcg/min .Q0M TOMY 0 mls/hr Titration Protocol 0 MCG/MIN Meropenem 1 gm in 100 mls @ 200 mls/hr 09/27/24 18:00 09/29/24 17:46 IVPB Infused Q24H TOMY Infusion Cisatracurium Besylate 200 mg/ 100 mls @ 11.451 mls/hr 09/28/24 02:05 09/30/24 14:46 Sodium Chloride IV CONT Infused .Q8H44M TOMY Titration Protocol 5.5 MCG/KG/MIN Insulin Human Regular 100 100 mls @ 2.5 mls/hr 09/28/24 08:30 09/30/24 14:19 units/ Sodium Chloride IV CONT 2.5 units/hr .Q24H TOMY 2.5 mls/hr Titration Protocol 2.5 UNITS/HR Linezolid 600 mg in 300 mls @ 300 mls/hr 09/29/24 02:00 09/30/24 14:32 Zyvox IVPB Infused Q12H TOMY Infusion Micafungin Sodium 100 mg/ 100 mls @ 100 mls/hr 09/30/24 09:00 09/30/24 08:52 Sodium Chloride IVPB Infused DAILY TOMY Infusion Insulin Aspart 4 - 8 units 09/21/24 08:40 09/28/24 04:43 Insulin Aspart (*Bkc) 100 Units/Ml SUB-Q 8 units Q4H TOMY Administration Protocol Insulin Glargine 40 units 09/22/24 09:00 09/27/24 09:10 Insulin Glargine (*Bkc) 100 Units/Ml SUB-Q 40 units QAM TMOY Administration Levothyroxine Sodium 100 mcg 09/21/24 06:30 09/30/24 05:13 Levothyroxine Sodium 100 Mcg Tablet FEED TUBE 100 mcg DAILY@0630 TOMY Administration Miscellaneous Information 0 each 09/29/24 00:01 09/29/24 06:10 Ivs In Normal Saline XX 10/29/24 00:00 Not Given CLARIFY TOMY Multi-Ingred Cream/Lotion/Oil/Oint 1 applic 09/20/24 21:00 09/30/24 07:53 Mineral Oil/White Petrolatum Ointment EACH EYE 1 applic Q12HR TOMY Administration Pantoprazole Sodium 40 mg 09/20/24 09:00 09/30/24 08:07 Pantoprazole Sodium Iv 40 Mg Vial IV PUSH 40 mg QAM TOMY Administration Sodium Chloride 10 ml 09/20/24 14:00 09/30/24 13:31 Central Line Flush IV PUSH 10 ml Q8HR TOMY Administration Sodium Chloride 20 ml 09/20/24 06:40 Central Line Flush IV PUSH PRN PRN after blood draws Sodium Zirconium Cyclosilicate 10 gm 09/30/24 07:20 09/30/24 08:06 Sodium Zirconium Cyclosilicate 10 Gm Powd.Pack PO 09/30/24 19:21 10 gm Q12H TOMY Administration Radiology Results: ITS Impressions Chest CTA 09/20/24 05:30 Impression: Bilateral multifocal pneumonia, most extensively involving the lower lobes. No pulmonary embolus seen. Abdomen X-Ray 09/20/24 05:35 Impression: NG tube in satisfactory position. Abdomen Ultrasound 09/22/24 15:02 IMPRESSION: 1: Gallbladder wall thickening, nonspecific. No evidence for gallstones. 2: Fatty infiltration of the liver. Renal Ultrasound 09/22/24 15:14 IMPRESSION: 1. Normal kidneys without hydronephrosis. Head CT 09/29/24 11:59 IMPRESSION: 1. Normal brain. Chest/Abdomen/Pelvis CTA 09/29/24 12:00 IMPRESSION: 1. No evident pulmonary embolism. Sensitivity decreased in the segmental and subsegmental pulmonary arteries due to combination of respiratory motion and streak artifact. 2. Significant interval progression in diffuse bilateral lung disease with interval development of numerous cavitary lesions throughout both lungs consistent with cavitary pneumonia and ARDS. 3. Left chest tube in the left major fissure. No pneumothorax or pleural effusion. 4. Very small amount of ascites in the pelvis. No abscess or other acute intra-abdominal/pelvic process. Chest X-Ray 09/30/24 13:06 IMPRESSION: 1. Lines and tubes as detailed above with endotracheal tube tip now 4 cm above the tirso. 2. No significant change in size of cavitary pneumonia with possible superimposed ARDS throughout both lungs relatively sparing the left apex. Labs Labs: Laboratory Results - last 24 hr 09/29/24 09/29/24 09/29/24 14:20 14:56 15:52 WBC RBC Hgb Hct MCV MCH MCHC RDW Plt Count MPV Immature Gran % (Auto) Neut % (Auto) Lymph % (Auto) [place] % (Auto) Eos % (Auto) Baso % (Auto) Lymph # (Auto) [place] # (Auto) Eos # (Auto) Baso # (Auto) Abs Immat Gran (auto) Absolute Neuts (auto) Absolute Nucleated RBC Total Counted Neutrophils % (Manual) Band Neutrophils % Lymphocytes % (Manual) Monocytes % (Manual) Nucleated RBC % Abs Neuts (Manual) Abs Lymphs (Manual) Abs Monocytes (Manual) Smudge Cells Platelet Estimate Anisocytosis Tear Drop Cells Schistocytes Puncture Site ABG pH ABG pCO2 ABG pO2 ABG PO2/FiO2 Ratio ABG HCO3 ABG O2 Saturation ABG O2 Content ABG Base Excess A-a Gradient Oxyhemoglobin Carboxyhemoglobin Methemoglobin Reduced Hemoglobin Total Hemoglobin O2 Delivery Device O2 Liters/Min Minute Volume Vent Rate Vent Mode FiO2 Tidal Volume PEEP Peak Inspir Pressure Pressure Support Sodium Potassium Chloride Carbon Dioxide Anion Gap BUN Creatinine Estim Creat Clear Calc Estimated GFR Glucose POC Capillary Glucose 196 H 230 H 286 H Calcium Phosphorus Magnesium Total Bilirubin AST ALT Alkaline Phosphatase Total Protein Albumin 09/29/24 09/29/24 09/29/24 17:11 17:53 18:52 WBC RBC Hgb Hct MCV MCH MCHC RDW Plt Count MPV Immature Gran % (Auto) Neut % (Auto) Lymph % (Auto) [place] % (Auto) Eos % (Auto) Baso % (Auto) Lymph # (Auto) [place] # (Auto) Eos # (Auto) Baso # (Auto) Abs Immat Gran (auto) Absolute Neuts (auto) Absolute Nucleated RBC Total Counted Neutrophils % (Manual) Band Neutrophils % Lymphocytes % (Manual) Monocytes % (Manual) Nucleated RBC % Abs Neuts (Manual) Abs Lymphs (Manual) Abs Monocytes (Manual) Smudge Cells Platelet Estimate Anisocytosis Tear Drop Cells Schistocytes Puncture Site ABG pH ABG pCO2 ABG pO2 ABG PO2/FiO2 Ratio ABG HCO3 ABG O2 Saturation ABG O2 Content ABG Base Excess A-a Gradient Oxyhemoglobin Carboxyhemoglobin Methemoglobin Reduced Hemoglobin Total Hemoglobin O2 Delivery Device O2 Liters/Min Minute Volume Vent Rate Vent Mode FiO2 Tidal Volume PEEP Peak Inspir Pressure Pressure Support Sodium Potassium Chloride Carbon Dioxide Anion Gap BUN Creatinine Estim Creat Clear Calc Estimated GFR Glucose POC Capillary Glucose 292 H 285 H 281 H Calcium Phosphorus Magnesium Total Bilirubin AST ALT Alkaline Phosphatase Total Protein Albumin 09/29/24 09/29/24 09/29/24 19:42 20:43 21:38 WBC RBC Hgb Hct MCV MCH MCHC RDW Plt Count MPV Immature Gran % (Auto) Neut % (Auto) Lymph % (Auto) [place] % (Auto) Eos % (Auto) Baso % (Auto) Lymph # (Auto) [place] # (Auto) Eos # (Auto) Baso # (Auto) Abs Immat Gran (auto) Absolute Neuts (auto) Absolute Nucleated RBC Total Counted Neutrophils % (Manual) Band Neutrophils % Lymphocytes % (Manual) Monocytes % (Manual) Nucleated RBC % Abs Neuts (Manual) Abs Lymphs (Manual) Abs Monocytes (Manual) Smudge Cells Platelet Estimate Anisocytosis Tear Drop Cells Schistocytes Puncture Site ABG pH ABG pCO2 ABG pO2 ABG PO2/FiO2 Ratio ABG HCO3 ABG O2 Saturation ABG O2 Content ABG Base Excess A-a Gradient Oxyhemoglobin Carboxyhemoglobin Methemoglobin Reduced Hemoglobin Total Hemoglobin O2 Delivery Device O2 Liters/Min Minute Volume Vent Rate Vent Mode FiO2 Tidal Volume PEEP Peak Inspir Pressure Pressure Support Sodium Potassium Chloride Carbon Dioxide Anion Gap BUN Creatinine Estim Creat Clear Calc Estimated GFR Glucose POC Capillary Glucose 273 H 212 H 142 H Calcium Phosphorus Magnesium Total Bilirubin AST ALT Alkaline Phosphatase Total Protein Albumin 09/29/24 09/29/24 09/30/24 22:43 23:40 00:37 WBC RBC Hgb Hct MCV MCH MCHC RDW Plt Count MPV Immature Gran % (Auto) Neut % (Auto) Lymph % (Auto) [place] % (Auto) Eos % (Auto) Baso % (Auto) Lymph # (Auto) [place] # (Auto) Eos # (Auto) Baso # (Auto) Abs Immat Gran (auto) Absolute Neuts (auto) Absolute Nucleated RBC Total Counted Neutrophils % (Manual) Band Neutrophils % Lymphocytes % (Manual) Monocytes % (Manual) Nucleated RBC % Abs Neuts (Manual) Abs Lymphs (Manual) Abs Monocytes (Manual) Smudge Cells Platelet Estimate Anisocytosis Tear Drop Cells Schistocytes Puncture Site ABG pH ABG pCO2 ABG pO2 ABG PO2/FiO2 Ratio ABG HCO3 ABG O2 Saturation ABG O2 Content ABG Base Excess A-a Gradient Oxyhemoglobin Carboxyhemoglobin Methemoglobin Reduced Hemoglobin Total Hemoglobin O2 Delivery Device O2 Liters/Min Minute Volume Vent Rate Vent Mode FiO2 Tidal Volume PEEP Peak Inspir Pressure Pressure Support Sodium Potassium Chloride Carbon Dioxide Anion Gap BUN Creatinine Estim Creat Clear Calc Estimated GFR Glucose POC Capillary Glucose 215 H 222 H 229 H Calcium Phosphorus Magnesium Total Bilirubin AST ALT Alkaline Phosphatase Total Protein Albumin 09/30/24 09/30/24 09/30/24 02:18 02:49 02:57 WBC RBC Hgb Hct MCV MCH MCHC RDW Plt Count MPV Immature Gran % (Auto) Neut % (Auto) Lymph % (Auto) [place] % (Auto) Eos % (Auto) Baso % (Auto) Lymph # (Auto) [place] # (Auto) Eos # (Auto) Baso # (Auto) Abs Immat Gran (auto) Absolute Neuts (auto) Absolute Nucleated RBC Total Counted Neutrophils % (Manual) Band Neutrophils % Lymphocytes % (Manual) Monocytes % (Manual) Nucleated RBC % Abs Neuts (Manual) Abs Lymphs (Manual) Abs Monocytes (Manual) Smudge Cells Platelet Estimate Anisocytosis Tear Drop Cells Schistocytes Puncture Site Right radial ABG pH 7.261 L* ABG pCO2 49.4 H ABG pO2 86.8 ABG PO2/FiO2 Ratio 1.02 ABG HCO3 21.7 L ABG O2 Saturation 95.2 ABG O2 Content 11.6 L ABG Base Excess -5.2 A-a Gradient 468.0 Oxyhemoglobin 94.4 Carboxyhemoglobin 0.9 Methemoglobin 0.1 Reduced Hemoglobin 4.6 Total Hemoglobin 8.6 L O2 Delivery Device Ventilator O2 Liters/Min Not Reportable Minute Volume Not Reportable Vent Rate 28 Vent Mode Cmv FiO2 85 Tidal Volume 370 PEEP 12 Peak Inspir Pressure Not Reportable Pressure Support Not Reportable Sodium Potassium Chloride Carbon Dioxide Anion Gap BUN Creatinine Estim Creat Clear Calc Estimated GFR Glucose POC Capillary Glucose 269 H 315 H Calcium Phosphorus Magnesium Total Bilirubin AST ALT Alkaline Phosphatase Total Protein Albumin 09/30/24 09/30/24 09/30/24 03:58 04:15 05:37 WBC 52.1 H* RBC 3.21 L Hgb 8.0 L Hct 24.3 L MCV 75.7 L MCH 24.9 L MCHC 32.9 RDW 19.8 H Plt Count 223 MPV 11.9 H Immature Gran % (Auto) Not Reportable Neut % (Auto) Not Reportable Lymph % (Auto) Not Reportable [place] % (Auto) Not Reportable Eos % (Auto) Not Reportable Baso % (Auto) Not Reportable Lymph # (Auto) Not Reportable [place] # (Auto) Not Reportable Eos # (Auto) Not Reportable Baso # (Auto) Not Reportable Abs Immat Gran (auto) Not Reportable Absolute Neuts (auto) Not Reportable Absolute Nucleated RBC Not Reportable Total Counted 100 Neutrophils % (Manual) 85 H Band Neutrophils % 11 H Lymphocytes % (Manual) 1.0 L Monocytes % (Manual) 3 Nucleated RBC % Not Reportable Abs Neuts (Manual) 50.01 H Abs Lymphs (Manual) 0.52 L Abs Monocytes (Manual) 1.56 H Smudge Cells Present Platelet Estimate Adequate Anisocytosis 1+ Tear Drop Cells 1+ Schistocytes None seen Puncture Site ABG pH ABG pCO2 ABG pO2 ABG PO2/FiO2 Ratio ABG HCO3 ABG O2 Saturation ABG O2 Content ABG Base Excess A-a Gradient Oxyhemoglobin Carboxyhemoglobin Methemoglobin Reduced Hemoglobin Total Hemoglobin O2 Delivery Device O2 Liters/Min Minute Volume Vent Rate Vent Mode FiO2 Tidal Volume PEEP Peak Inspir Pressure Pressure Support Sodium 128 L Potassium 5.5 H Chloride 94 L Carbon Dioxide 19 L Anion Gap 15 H BUN 92 H D Creatinine 3.43 H Estim Creat Clear Calc 19 Estimated GFR 15 L Glucose 321 H POC Capillary Glucose 323 H 313 H Calcium 8.9 Phosphorus 7.2 H Magnesium 2.4 H Total Bilirubin 0.8 AST 91 H ALT 53 H Alkaline Phosphatase 528 H Total Protein 6.0 L Albumin 2.5 L 09/30/24 09/30/24 09/30/24 06:53 07:48 08:48 WBC RBC Hgb Hct MCV MCH MCHC RDW Plt Count MPV Immature Gran % (Auto) Neut % (Auto) Lymph % (Auto) [place] % (Auto) Eos % (Auto) Baso % (Auto) Lymph # (Auto) [place] # (Auto) Eos # (Auto) Baso # (Auto) Abs Immat Gran (auto) Absolute Neuts (auto) Absolute Nucleated RBC Total Counted Neutrophils % (Manual) Band Neutrophils % Lymphocytes % (Manual) Monocytes % (Manual) Nucleated RBC % Abs Neuts (Manual) Abs Lymphs (Manual) Abs Monocytes (Manual) Smudge Cells Platelet Estimate Anisocytosis Tear Drop Cells Schistocytes Puncture Site ABG pH ABG pCO2 ABG pO2 ABG PO2/FiO2 Ratio ABG HCO3 ABG O2 Saturation ABG O2 Content ABG Base Excess A-a Gradient Oxyhemoglobin Carboxyhemoglobin Methemoglobin Reduced Hemoglobin Total Hemoglobin O2 Delivery Device O2 Liters/Min Minute Volume Vent Rate Vent Mode FiO2 Tidal Volume PEEP Peak Inspir Pressure Pressure Support Sodium Potassium Chloride Carbon Dioxide Anion Gap BUN Creatinine Estim Creat Clear Calc Estimated GFR Glucose POC Capillary Glucose 268 H 244 H 286 H Calcium Phosphorus Magnesium Total Bilirubin AST ALT Alkaline Phosphatase Total Protein Albumin 09/30/24 09/30/24 09/30/24 10:27 10:31 10:39 WBC RBC Hgb Hct MCV MCH MCHC RDW Plt Count MPV Immature Gran % (Auto) Neut % (Auto) Lymph % (Auto) [place] % (Auto) Eos % (Auto) Baso % (Auto) Lymph # (Auto) [place] # (Auto) Eos # (Auto) Baso # (Auto) Abs Immat Gran (auto) Absolute Neuts (auto) Absolute Nucleated RBC Total Counted Neutrophils % (Manual) Band Neutrophils % Lymphocytes % (Manual) Monocytes % (Manual) Nucleated RBC % Abs Neuts (Manual) Abs Lymphs (Manual) Abs Monocytes (Manual) Smudge Cells Platelet Estimate Anisocytosis Tear Drop Cells Schistocytes Puncture Site ABG pH ABG pCO2 ABG pO2 ABG PO2/FiO2 Ratio ABG HCO3 ABG O2 Saturation ABG O2 Content ABG Base Excess A-a Gradient Oxyhemoglobin Carboxyhemoglobin Methemoglobin Reduced Hemoglobin Total Hemoglobin O2 Delivery Device O2 Liters/Min Minute Volume Vent Rate Vent Mode FiO2 Tidal Volume PEEP Peak Inspir Pressure Pressure Support Sodium Cancelled 130 L Potassium Cancelled 5.3 H Chloride Cancelled 93 L Carbon Dioxide Cancelled 23 Anion Gap Cancelled 14 H BUN Cancelled 100 H Creatinine Cancelled 3.79 H Estim Creat Clear Calc Cancelled 17 Estimated GFR Cancelled 13 L Glucose Cancelled 241 H POC Capillary Glucose 228 H Calcium Cancelled 8.9 Phosphorus Magnesium Total Bilirubin AST ALT Alkaline Phosphatase Total Protein Albumin 09/30/24 09/30/24 09/30/24 11:38 13:12 14:18 WBC RBC Hgb Hct MCV MCH MCHC RDW Plt Count MPV Immature Gran % (Auto) Neut % (Auto) Lymph % (Auto) [place] % (Auto) Eos % (Auto) Baso % (Auto) Lymph # (Auto) [place] # (Auto) Eos # (Auto) Baso # (Auto) Abs Immat Gran (auto) Absolute Neuts (auto) Absolute Nucleated RBC Total Counted Neutrophils % (Manual) Band Neutrophils % Lymphocytes % (Manual) Monocytes % (Manual) Nucleated RBC % Abs Neuts (Manual) Abs Lymphs (Manual) Abs Monocytes (Manual) Smudge Cells Platelet Estimate Anisocytosis Tear Drop Cells Schistocytes Puncture Site ABG pH ABG pCO2 ABG pO2 ABG PO2/FiO2 Ratio ABG HCO3 ABG O2 Saturation ABG O2 Content ABG Base Excess A-a Gradient Oxyhemoglobin Carboxyhemoglobin Methemoglobin Reduced Hemoglobin Total Hemoglobin O2 Delivery Device O2 Liters/Min Minute Volume Vent Rate Vent Mode FiO2 Tidal Volume PEEP Peak Inspir Pressure Pressure Support Sodium Potassium Chloride Carbon Dioxide Anion Gap BUN Creatinine Estim Creat Clear Calc Estimated GFR Glucose POC Capillary Glucose 216 H 180 H 225 H Calcium Phosphorus Magnesium Total Bilirubin AST ALT Alkaline Phosphatase Total Protein Albumin
[2024-09-30] MEDS: CISATRACURIUM BESYLATE 200 MG in SODIUM CHLORIDE 0.9% IV 80 ML 11.45 ML IV CONT ×2 (15:06→23:10)
[2024-09-30 15:19] LABS: Glucose Point of Care 229 mg/dl (65-105)
[2024-09-30 16:39] LABS: Glucose Point of Care 246 mg/dl (65-105)
[2024-09-30 17:15] LABS: Glucose Point of Care 221 mg/dl (65-105)
[2024-09-30 17:17] LABS: Hematocrit 22.8 % (37.0-47.0); Hemoglobin 7.9 g/dL (12.0-15.0); Mean Corpuscular HGB Conc 34.6 g/dl (32-36); Mean Corpuscular Hemoglobin 26.3 pg (26-34); Platelet Count Result 268 k/mm3 (150-375); Red Cell Distribution Width 19.9 % (11.5-14.5)
[2024-09-30 17:24] LABS: Hemoglobin A1C 11.1 % (<5.7)
[2024-09-30 17:25] LABS: White Blood Count 51.2 K/mm3 (4.5-10.0)
[2024-09-30 17:29] LABS: INR 1.2; Prothrombin Time 15.3 Seconds (11.1-14.7)
[2024-09-30 17:32] LABS: Lactic Acid Reflex 1.3 mmol/L (0.7-2.0)
[2024-09-30 17:39] LABS: Alanine Aminotransferase 49 U/L (6-35); Albumin Level 2.5 g/dL (3.5-5.1); Alkaline Phosphatase 572 U/L (38-126); Amylase 276 U/L (30-110); Aspartate Amino Transferase 154 U/L (14-36); Bilirubin,Total 0.7 mg/dL (0.2-1.3); Creatine Kinase 89 U/L (30-135); Lipase 651 U/L (23-300)
[2024-09-30 17:40] LABS: Alanine Aminotransferase 48 U/L (6-35); Albumin Level 2.5 g/dL (3.5-5.1); Alkaline Phosphatase 561 U/L (38-126); Anion Gap 14 mmol/L (4-12); Aspartate Amino Transferase 153 U/L (14-36); Bilirubin,Total 0.7 mg/dL (0.2-1.3); Blood Urea Nitrogen 107 mg/dL (7-17); Calcium 8.7 mg/dL (8.4-10.2); Carbon Dioxide 22 mmol/L (22-30); Chloride 93 mmol/L (98-107); Estimated CRCL calculation 17 ml/min; Estimated Glomerular Filt Rate 13; Glucose 225 mg/dL (65-110); Magnesium 2.6 mg/dL (1.6-2.3); Phosphorus 7.6 mg/dL (2.5-4.5); Potassium 5.3 mmol/L (3.4-5.0); Sodium 129 mmol/L (137-145)
[2024-09-30 17:53] LABS: SARS-CoV-2 RNA PCR Negative (Negative)
[2024-09-30 18:03] LABS: Glucose Point of Care 227 mg/dl (65-105)
[2024-09-30] MEDS: MEROPENEM 1 GM/NS 100 ML 1 GM/100 ML BAG IVPB (18:48)
[2024-09-30 19:04] LABS: Glucose Point of Care 222 mg/dl (65-105)
[2024-09-30 20:08] LABS: Glucose Point of Care 246 mg/dl (65-105)
[2024-09-30 20:51] LABS: Troponin I 0.059 ng/mL (0.000-0.034)
[2024-09-30 21:10] LABS: Glucose Point of Care 251 mg/dl (65-105)
[2024-09-30 22:39] LABS: Glucose Point of Care 251 mg/dl (65-105)
[2024-09-30 23:12] LABS: Hematocrit 21.3 % (37.0-47.0); Hemoglobin 7.5 g/dL (12.0-15.0); Mean Corpuscular HGB Conc 35.2 g/dl (32-36); Mean Corpuscular Hemoglobin 26.5 pg (26-34); Mean Corpuscular Volume 75.3 fl (80-100); Mean Platelet Volume 11.4 fl (7.4-10.4); Platelet Count Result 263 k/mm3 (150-375); Red Blood Count 2.83 M/mm3 (4.2-5.4); Red Cell Distribution Width 19.7 % (11.5-14.5); White Blood Count 48.5 K/mm3 (4.5-10.0)
[2024-09-30 23:21] LABS: Lactic Acid Reflex 1.4 mmol/L (0.7-2.0)
[2024-09-30 23:23] LABS: INR 1.1; Prothrombin Time 15.1 Seconds (11.1-14.7)
[2024-09-30 23:24] LABS: Partial Thromboplastin Time 32.3 Seconds (22.3-36.8)
[2024-09-30 23:32] LABS: Alanine Aminotransferase 44 U/L (6-35); Albumin Level 2.4 g/dL (3.5-5.1); Alkaline Phosphatase 516 U/L (38-126); Amylase 271 U/L (30-110); Anion Gap 16 mmol/L (4-12); Aspartate Amino Transferase 139 U/L (14-36); Bilirubin,Total 0.6 mg/dL (0.2-1.3); Blood Urea Nitrogen 116 mg/dL (7-17); Calcium 8.4 mg/dL (8.4-10.2); Carbon Dioxide 21 mmol/L (22-30); Chloride 93 mmol/L (98-107); Estimated CRCL calculation 15 ml/min; Estimated Glomerular Filt Rate 11; Glucose 233 mg/dL (65-110); Lipase 622 U/L (23-300); Magnesium 2.7 mg/dL (1.6-2.3); Phosphorus 8.2 mg/dL (2.5-4.5); Potassium 4.9 mmol/L (3.4-5.0); Sodium 130 mmol/L (137-145)
[2024-10-01] VITALS (41 sets, daily range): BP systolic 94–117; BP diastolic 51–68; PULSE 96–107; RESP 28–30; TEMP 37.6–37.8; O2SAT 95–98
[2024-10-01 00:24] LABS: Glucose Point of Care 200 mg/dl (65-105)
[2024-10-01 01:13] LABS: Alveolar/Arterial O2 Gradient 447.3 mmHg; Fractional Inspired Oxygen 85 %; HCO3 ABG 21.8 mEq/l (22.0-26.0); Oxygen Content ABG 10.3 %vol (16.0-22.0); Oxygen Saturation ABG 97.2 % (95.0-100.0); Oxyhemoglobin 97.3 % THb (90.0-100.0); PCO2 ABG 49.5 mmHg (35.0-45.0); PO2 ABG 107.4 mmHg (80.0-100.0); PO2 FiO2 Ratio Arterial Blood 1.26 %
[2024-10-01 01:15] LABS: Arterial Blood Gas Ventilator rate 28 /MIN; Device VENTILATOR; Modified Allen's Test Pass; Site Drawn LEFT RADIAL; Total Hemoglobin 7.4 g/dL (12.0-18.0); pH ABG 7.261 (7.350-7.450)
[2024-10-01 01:16] LABS: Arterial Blood Gas PEEP 12 cmH2O; Arterial Blood Gas Tidal Volume 370 ml; Arterial Blood Gas Vent Mode CMV
[2024-10-01 01:25] LABS: Glucose Point of Care 232 mg/dl (65-105)
[2024-10-01] MEDS: EPOPROSTENOL SODIUM 0.5 MG VIAL 1 MG INHALATION ×2 (01:49→07:35)
[2024-10-01] MEDS: PROPOFOL IV EMULSION 100 ML 14.57 MG IV CONT ×2 (02:12→08:59)
[2024-10-01] MEDS: LINEZOLID 600 MG/300 ML 600 MG/300 ML SOLN 300 MG IVPB (02:13)
[2024-10-01 02:23] LABS: Glucose Point of Care 221 mg/dl (65-105)
[2024-10-01 03:14] LABS: Glucose Point of Care 293 mg/dl (65-105)
[2024-10-01 04:33] LABS: Glucose Point of Care 354 mg/dl (65-105)
[2024-10-01 04:48] LABS: Alveolar/Arterial O2 Gradient 426.9 mmHg; Base Excess ABG -5.7 mEq/l (+/-2.0); Fractional Inspired Oxygen 85 %; HCO3 ABG 21.3 mEq/l (22.0-26.0); Methemoglobin ABG 0.3 %THb (0-1.5); Oxygen Content ABG 10.2 %vol (16.0-22.0); Oxyhemoglobin 96.9 % THb (90.0-100.0); PCO2 ABG 49.8 mmHg (35.0-45.0); PO2 ABG 127.5 mmHg (80.0-100.0); Reduced Hemoglobin 1.8 %THb (0-5.0)
[2024-10-01 04:49] LABS: pH ABG 7.248 (7.350-7.450)
[2024-10-01 04:50] LABS: Device VENTILATOR; Modified Allen's Test Pass; Site Drawn RIGHT RADIAL; Total Hemoglobin 7.3 g/dL (12.0-18.0)
[2024-10-01 04:51] LABS: Arterial Blood Gas PEEP 12 cmH2O; Arterial Blood Gas Tidal Volume 370 ml; Arterial Blood Gas Vent Mode CMV; Arterial Blood Gas Ventilator rate 28 /MIN
[2024-10-01 05:18] LABS: Hematocrit 21.1 % (37.0-47.0); Hemoglobin 7.4 g/dL (12.0-15.0); Mean Corpuscular HGB Conc 35.1 g/dl (32-36); Mean Corpuscular Hemoglobin 26.1 pg (26-34); Mean Corpuscular Volume 74.6 fl (80-100); Mean Platelet Volume 11.2 fl (7.4-10.4); Platelet Count Result 277 k/mm3 (150-375); Red Blood Count 2.83 M/mm3 (4.2-5.4)
[2024-10-01 05:30] LABS: Lactic Acid Reflex 1.5 mmol/L (0.7-2.0)
[2024-10-01] MEDS: MIDAZOLAM 100MG/NS 100ML(*CRX) 100 MG/100 ML BAG IV CONT (05:31)
[2024-10-01 05:34] LABS: Alanine Aminotransferase 40 U/L (6-35); Albumin Level 2.4 g/dL (3.5-5.1); Alkaline Phosphatase 510 U/L (38-126); Amylase 281 U/L (30-110); Anion Gap 16 mmol/L (4-12); Aspartate Amino Transferase 125 U/L (14-36); Bilirubin Indirect 0.1 mg/dL (0-1.1); Bilirubin,Total 0.6 mg/dL (0.2-1.3); Calcium 8.3 mg/dL (8.4-10.2); Carbon Dioxide 19 mmol/L (22-30); Chloride 92 mmol/L (98-107); Glucose 309 mg/dL (65-110); INR 1.2; Lipase 605 U/L (23-300); Magnesium 2.7 mg/dL (1.6-2.3); Potassium 4.8 mmol/L (3.4-5.0); Prothrombin Time 15.3 Seconds (11.1-14.7); Sodium 127 mmol/L (137-145)
[2024-10-01 05:35] LABS: Partial Thromboplastin Time 32.1 Seconds (22.3-36.8)
[2024-10-01 05:40] LABS: Estimated CRCL calculation 14 ml/min; Estimated Glomerular Filt Rate 11
[2024-10-01 05:42] LABS: Anisocytosis 1+; Band Neutrophils Percent 5 % (0-6); Blood Urea Nitrogen 124 mg/dL (7-17); Lymphocytes Absolute Manual 0.48 K/mm3 (1.1-4.5); Monocytes Absolute Manual 0.96 K/mm3 (0.1-0.90); Monocytes Percent Manual 2 % (3-9); Neutrophils Absolute Manual 46.56 K/mm3 (1.7-7.2); Neutrophils Percent Manual 92 % (46-73); Platelet Estimate Slightly Increased (Adequate); Total Cells Counted 100
[2024-10-01 05:43] LABS: Schistocytes None Seen; Smudge Cells PRESENT
[2024-10-01] MEDS: CENTRAL LINE FLUSH 10 ML IV PUSH (06:24)
[2024-10-01] MEDS: INSULIN HUMAN REGULAR (*BKC) 100 UNITS in SODIUM CHLORIDE 0.9% IV 99 ML 6 UNITS IV CONT (06:43)
[2024-10-01 06:48] LABS: Glucose Point of Care 235 mg/dl (65-105)
[2024-10-01] MEDS: CISATRACURIUM BESYLATE 200 MG in SODIUM CHLORIDE 0.9% IV 80 ML 10.41 ML IV CONT (08:02)
[2024-10-01] MEDS: MICAFUNGIN SODIUM 100 MG in SODIUM CHLORIDE 0.9% IV 100 ML IVPB (08:05)
[2024-10-01] MEDS: MINERAL OIL/WHITE PETROLATUM OINTMENT 1 APPLIC EACH EYE (08:05)
[2024-10-01 08:08] LABS: Glucose Point of Care 211 mg/dl (65-105)
[2024-10-01] MEDS: PANTOPRAZOLE SODIUM IV 40 MG VIAL IV PUSH (08:12)
[2024-10-01 09:05] LABS: Glucose Point of Care 186 mg/dl (65-105)
--- NOTE | 2024-10-01 09:19 | WPDINTPN ---
Progress Note: A&P Assessment and Plan (1) Spontaneous pneumothorax: Code(s): J93.83 - Other pneumothorax Status: Acute Assessment and Plan: 09/25/2024: In the afternoon patient started to desaturate with O2 sats in the mid 80s, peep was increased, FiO2 was increased with no improvement, on auscultation left-sided breath sounds were decreased, stat chest x-ray showed spontaneous pneumothorax. Chest tube was inserted on 09/25, by surgery. Chest x-ray post chest tube insertion showed resolution of the pneumothorax with improvement in O2 sats. -surgery to manage chest tube -no air leak noted (2) Acute hypoxic respiratory failure: Code(s): J96.01 - Acute respiratory failure with hypoxia Status: Acute Assessment and Plan: Acute respiratory failure secondary to influenza A and pneumonia proceeding to ARDS 09/20: Intubated in the ER Patient now intubated and on mechanical ventilation ABG reviewed. will allow permissive hypercapnia. -tidal volume 340 mL, peep 12, FiO2 80%. Continue to wean FiO2 to maintain O2 sats > 92% Continue sedation with Versed and propofol Bronchodilators 09/27: increased FiO2 requirements, on high Ventilatory support. Added Pulmozyme and Mucomyst nebs. Placed pt in prone position 09/28: Chest x-ray unchanged, ABGs reviewed, increase tidal volume, continue prone positioning, continue Pulmozyme and Mucomyst nebs 09/29: Patient placed in supine position after 48 hours. Started on Flolan 09/29: Discussed CT chest results with Radiology and pulmonology, most likely related to Staph aureus, multiple cavities renal lesions. Recommended transferring patient for higher level of care for infectious disease to evaluate and treat -family did not want patient to be transferred to [facility] for higher level of care and they have decided to withdraw support on 10/01/2024 once more family members arrive and since the goodbyes to the patient 10/01: Family is agreed to organ donation, will continue current ventilator settings, decreased PEEP to 10, increase rate to 30, for better ventilation 09/29/2024: CTA chest abdomen and pelvis IMPRESSION: 1. No evident pulmonary embolism. Sensitivity decreased in the segmental and subsegmental pulmonary arteries due to combination of respiratory motion and streak artifact. 2. Significant interval progression in diffuse bilateral lung disease with interval development of numerous cavitary lesions throughout both lungs consistent with cavitary pneumonia and ARDS. 3. Left chest tube in the left major fissure. No pneumothorax or pleural effusion. 4. Very small amount of ascites in the pelvis. No abscess or other acute intra-abdominal/pelvic process. 09/20: CTA chest Bilateral multifocal pneumonia, most extensively involving the lower lobes. No pulmonary embolus seen. (3) Uncontrolled diabetes mellitus: Status: Acute Assessment and Plan: SSI Hyperglycemia with blood sugars in the 300s to 400s, -continue insulin infusion -off Lantus Continue tube feeds (4) Septic shock: Code(s): A41.9 - Sepsis, unspecified organism; R65.21 - Severe sepsis with septic shock Status: Acute Assessment and Plan: Septic shock secondary to pneumonia Hold further IV fluids off Stress dose steroids 09/19: Blood cultures are negative till now 09/21: Sputum cultures growing Staph aureus 09/27: Switched vancomycin and cefepime to linezolid and meropenem, WBC count trending up, afebrile, bandemia -completed 5 day course of doxycycline 09/27: Repeat Blood cultures growing MRSA 1 of 2 bottles 09/27: Repeat sputum cultures growing MRSA CT scan of the chest abdomen and pelvis as above Off all pressors, maintain MAP > 65 mg Or SBP> 100 mmHg. (5) PNA (pneumonia): Code(s): J18.9 - Pneumonia, unspecified organism Status: Acute Assessment and Plan: Staph pneumonia with with multiple cavitary lesions (6) Hypothyroidism: Code(s): E03.9 - Hypothyroidism, unspecified Status: Acute Assessment and Plan: Continue levothyroxine Normal TSH (7) Influenza: Code(s): J11.1 - Influenza due to unidentified influenza virus with other respiratory manifestations Status: Acute Assessment and Plan: Isolation Status post Tamiflu (8) SCAR (acute kidney injury): Code(s): N17.9 - Acute kidney failure, unspecified Status: Acute Assessment and Plan: Patient presented with elevated creatinine which has been gradually getting worse This is likely multifactorial secondary to sepsis, shock possible contrast induced injury. Patient is also on medications including vancomycin Normal CK Renal ultrasound showed normal kidney without hydronephrosis Patient at risk of needing [employer]OR Discussed with nephrology today regarding initiation of hemodialysis. Log Buncher feels that urine output has improved over last 24 hours. Recommends continuing Lasix for another 24 hours and re-evaluate need for dialysis 09/25: Worsening and creatinine and BUN despite diuretics, will discuss with Nephrology regarding dialysis 09/26: Discussed with Nephrology, patient is making good urine despite but her BUN and creatinine trending up, discussed with family regarding dialysis, family okay with dialysis. HD catheter placed in left IJ. Started HD Dialysis per nephrology 09/30: Will treat hyperkalemia 10/01: Potassium 4.8 (9) Shock liver: Code(s): K72.00 - Acute and subacute hepatic failure without coma Status: Acute Assessment and Plan: Elevated AST and ALT likely secondary to shock liver and cholestasis secondary to sepsis and shock US right upper quadrant ultrasound shows gallbladder wall thickening nonspecific no evidence of gallstones. Fatty infiltration of the liver Negative hepatitis panel LFTs improving, bilirubin is normal Continue to monitor (10) Thrombocytopenia: Code(s): D69.6 - Thrombocytopenia, unspecified Status: Acute Assessment and Plan: Gradual in platelet count since admission likely multifactorial secondary to sepsis medications and hemodilution -platelets are back to normal, continue Lovenox Plan DVT prophylaxis -SCDs, restarted Lovenox as thrombocytopenia has resolved, Stress ulcer prophylaxis -Protonix Nutrition - tolerating tube feeds Code Status - Full Code Total Critical Care Time: 35 minutes Discussed with patient's mother yesterday who is the POA, updated with patient's condition and plan of care. I answered all questions. Patient has been accepted to [facility], [facility], accepting physician Dr. PIRES. Patient will transfer was the have a bed available 09/30: Family decided to withdraw support on Wednesday10/01/2024: And for that reason patient was not transferred to [facility]. Family also agreed to organ donation, [facility] transplant services has discussed with the family. Due to a high probability of clinically significant, life threatening deterioration, the patient required my highest level of preparedness to intervene emergently and I personally spent this critical care time directly and personally managing the patient. This critical care time included obtaining a history; examining the patient; pulse oximetry; ordering and review of studies; arranging urgent treatment with development of a management plan; evaluation of patient's response to treatment; frequent reassessment; and discussions with other providers. It was exclusive of separately billable procedures and treating other patients and teaching time. Please see Assessment and Plan section and the rest of the note for further information on patient assessment and treatment This dictation may have been done utilizing a voice recognition system. Attempts have been made to correct errors. However, there may be uncorrected grammatical, spelling, and recognitions errors present. Subjective Date/time seen: 10/01/24 09:19 Interval history: Reason for consult: Acute respiratory failure, pneumonia, septic shock, acute kidney injury, pneumonia, hyperglycemia 09/25: Left pneumothorax status post chest tube by surgery 09/26: Left IJ dialysis catheter placed and started on hemodialysis 09/27: Placed in Prone position 09/29: Started Flolan 10/01/2024: Patient seen and examined the ICU, remains intubated on CMV mode of ventilation, peep of 12, 85% FiO2. Sedated with propofol and Versed infusion, remains on Nimbex for ventilator synchrony. Off all pressors. Potassium 4.8 this morning, WBC count 48.0 this morning Review of Systems Review of Systems: ROS unobtainable: Yes unobtainable due to endotracheal tube, unobtainable due to medical condition and unobtainable due to mental status Exam Narrative: General: Pt is sedated, intubated and on mechanical ventilation. In supine position HEENT: Pupils equal reactive, sclera is clear, ETT in place Lungs/Chest: Trachea central Coarse BS B/L, bilateral rales, no wheezing. Adequate air entry bilaterally. Left-sided chest tube in place Cardiac: Sinus tachycardia Circulation: Pedal pulses are palpable, feet are warm Abdomen: Decreased bowel sounds. Soft. NT. ND. Extremities: Positive edema bilateral lower extremities up to the thighs. Warm : Leach in place Neurologic: Unable to assess due to sedation and Nimbex. Does not respond to painful stimuli Objective Data Vital Signs Vital Signs: Vital Signs - 24 hr 09/30/24 09:56 09/30/24 09:56 09/30/24 10:00 Temperature Pulse Rate 119 H 119 H 119 H Respiratory Rate 28 H 28 H Blood Pressure Pulse Oximetry 95 95 Oxygen Delivery Mechanical Ventilation Fraction of Inspired Oxygen 85 09/30/24 10:00 09/30/24 10:09/30/24 10:00 Temperature Pulse Rate 119 H 119 H 119 H Respiratory Rate 28 H 28 H Blood Pressure 103/55 L Pulse Oximetry Oxygen Delivery Fraction of Inspired Oxygen 09/30/24 10:25 10:00 09/30/24 10:22 Temperature 100.8 F H Pulse Rate 119 H 119 H 119 H Respiratory Rate 28 H 28 H Blood Pressure 101/57 L 101/57 L Pulse Oximetry 95 Oxygen Delivery Fraction of Inspired Oxygen 09/30/24 10:30 09/30/24 11:55 09/30/24 12:00 Temperature Pulse Rate 119 H 120 H Respiratory Rate 28 H Blood Pressure 105/58 L Pulse Oximetry 94 Oxygen Delivery Mechanical Ventilation Fraction of Inspired Oxygen 85 09/30/24 12:00 09/30/24 12:00 09/30/24 12:00 Temperature 99.8 F H Pulse Rate 72 120 H Respiratory Rate 24 H 28 H Blood Pressure 122/85 Pulse Oximetry 93 Oxygen Delivery Fraction of Inspired Oxygen 85 09/30/24 12:00 09/30/24 12:00 09/30/24 12:00 Temperature Pulse Rate 120 H 120 H 119 H Respiratory Rate 28 H 28 H Blood Pressure 104/56 L Pulse Oximetry Oxygen Delivery Fraction of Inspired Oxygen 09/30/24 12:15 09/30/24 12:15 09/30/24 13:45 Temperature Pulse Rate 120 H 120 H 116 H Respiratory Rate 28 H 28 H Blood Pressure 98/54 L Pulse Oximetry 94 94 Oxygen Delivery Mechanical Ventilation Fraction of Inspired Oxygen 85 09/30/24 14:00 09/30/24 14:00 09/30/24 14:00 Temperature 101 F H Pulse Rate 115 H 115 H 115 H Respiratory Rate 28 H 28 H Blood Pressure 98/57 L Pulse Oximetry 93 Oxygen Delivery Fraction of Inspired Oxygen 09/30/24 14:00 09/30/24 14:00 09/30/24 14:23 Temperature Pulse Rate 117 H 115 H 112 H Respiratory Rate 28 H 28 H Blood Pressure 97/58 L Pulse Oximetry Oxygen Delivery Fraction of Inspired Oxygen 09/30/24 14:28 09/30/24 14:28 09/30/24 14:41 Temperature Pulse Rate 111 H 111 H 110 H Respiratory Rate 28 H 28 H Blood Pressure Pulse Oximetry 94 94 Oxygen Delivery Mechanical Ventilation Fraction of Inspired Oxygen 85 09/30/24 14:41 09/30/24 14:46 09/30/24 15:06 Temperature Pulse Rate 110 H 111 H 109 H Respiratory Rate 28 H 28 H 28 H Blood Pressure 102/62 95/60 L Pulse Oximetry Oxygen Delivery Fraction of Inspired Oxygen 09/30/24 16:00 09/30/24 16:00 09/30/24 16:00 Temperature Pulse Rate 112 H 112 H 112 H Respiratory Rate 28 H 28 H 28 H Blood Pressure 103/60 Pulse Oximetry Oxygen Delivery Fraction of Inspired Oxygen 09/30/24 16:00 09/30/24 16:00 09/30/24 16:00 Temperature Pulse Rate 119 H Respiratory Rate Blood Pressure Pulse Oximetry 94 Oxygen Delivery Mechanical Ventilation Fraction of Inspired Oxygen 85 85 09/30/24 16:00 09/30/24 16:00 09/30/24 16:29 Temperature 100.5 F H Pulse Rate 112 H 112 H 114 H Respiratory Rate 28 H Blood Pressure 103/60 Pulse Oximetry 94 94 Oxygen Delivery Mechanical Ventilation Fraction of Inspired Oxygen 85 09/30/24 16:29 09/30/24 18:00 09/30/24 18:00 Temperature 101.1 F H Pulse Rate 114 H 114 H 114 H Respiratory Rate 28 H 28 H Blood Pressure 120/60 Pulse Oximetry 94 93 Oxygen Delivery Fraction of Inspired Oxygen 09/30/24 18:00 09/30/24 18:00 09/30/24 18:00 Temperature Pulse Rate 114 H 114 H 114 H Respiratory Rate 28 H 28 H 28 H Blood Pressure 120/60 Pulse Oximetry Oxygen Delivery Fraction of Inspired Oxygen 09/30/24 18:00 09/30/24 18:44 09/30/24 18:44 Temperature Pulse Rate 114 H 112 H 112 H Respiratory Rate 28 H Blood Pressure Pulse Oximetry 93 93 Oxygen Delivery Mechanical Ventilation Fraction of Inspired Oxygen 85 09/30/24 19:47 09/30/24 19:48 09/30/24 20:00 Temperature Pulse Rate 113 H 113 H 112 H Respiratory Rate 28 H Blood Pressure 106/59 L Pulse Oximetry 94 96 Oxygen Delivery Mechanical Ventilation Fraction of Inspired Oxygen 85 09/30/24 20:00 09/30/24 20:00 09/30/24 20:00 Temperature Pulse Rate 113 H Respiratory Rate Blood Pressure Pulse Oximetry 94 Oxygen Delivery Mechanical Ventilation Fraction of Inspired Oxygen 85 85 09/30/24 20:00 09/30/24 20:02 09/30/24 20:03 Temperature 101.0 F H Pulse Rate 113 H 113 H 113 H Respiratory Rate 28 H 28 H 28 H Blood Pressure 106/59 L 106/59 L Pulse Oximetry 94 Oxygen Delivery Fraction of Inspired Oxygen 09/30/24 20:04 09/30/24 20:25 09/30/24 20:27 Temperature Pulse Rate 113 H 113 H 113 H Respiratory Rate 28 H 28 H 28 H Blood Pressure 104/57 L Pulse Oximetry Oxygen Delivery Fraction of Inspired Oxygen 09/30/24 20:27 09/30/24 21:05 09/30/24 21:50 Temperature Pulse Rate 113 H 111 H 110 H Respiratory Rate 28 H 28 H 28 H Blood Pressure 101/57 L Pulse Oximetry 95 Oxygen Delivery Fraction of Inspired Oxygen 09/30/24 22:00 09/30/24 22:00 09/30/24 22:00 Temperature Pulse Rate 110 H 110 H 110 H Respiratory Rate 28 H 28 H 28 H Blood Pressure 99/53 L Pulse Oximetry Oxygen Delivery Fraction of Inspired Oxygen 09/30/24 22:00 09/30/24 22:00 09/30/24 23:10 Temperature 100.4 F H Pulse Rate 110 H 110 H 109 H Respiratory Rate 28 H 28 H Blood Pressure 99/53 L 94/56 L Pulse Oximetry 95 Oxygen Delivery Fraction of Inspired Oxygen 09/30/24 23:10 09/30/24 23:15 09/30/24 23:30 Temperature Pulse Rate 109 H 108 H 113 H Respiratory Rate 28 H 28 H Blood Pressure 94/56 L 94/49 L Pulse Oximetry 96 Oxygen Delivery Fraction of Inspired Oxygen 09/30/24 23:59 10/01/24 00:00 10/01/24 00:00 Temperature Pulse Rate 106 H Respiratory Rate Blood Pressure Pulse Oximetry 96 96 Oxygen Delivery Mechanical Ventilation Mechanical Ventilation Fraction of Inspired Oxygen 85 85 85 10/01/24 00:00 10/01/24 00:00 10/01/24 00:14 Temperature 100.0 F H Pulse Rate 106 H 106 H 105 H Respiratory Rate 28 H Blood Pressure 94/59 L 98/60 L Pulse Oximetry 96 Oxygen Delivery Fraction of Inspired Oxygen 10/01/24 00:16 10/01/24 00:16 10/01/24 00:17 Temperature Pulse Rate 105 H 105 H 105 H Respiratory Rate 28 H 28 H 28 H Blood Pressure 104/53 L Pulse Oximetry Oxygen Delivery Fraction of Inspired Oxygen 10/01/24 00:30 10/01/24 01:57 10/01/24 01:57 Temperature Pulse Rate 104 H 101 H 101 H Respiratory Rate 28 H Blood Pressure 117/64 Pulse Oximetry 97 97 Oxygen Delivery Mechanical Ventilation Fraction of Inspired Oxygen 85 10/01/24 02:00 10/01/24 02:00 10/01/24 02:00 Temperature 99.8 F H Pulse Rate 101 H 101 H 101 H Respiratory Rate 28 H 28 H Blood Pressure 105/64 Pulse Oximetry 97 Oxygen Delivery Fraction of Inspired Oxygen 10/01/24 02:00 10/01/24 02:00 10/01/24 02:12 Temperature Pulse Rate 101 H 101 H 102 H Respiratory Rate 28 H 28 H Blood Pressure 105/64 105/64 Pulse Oximetry Oxygen Delivery Fraction of Inspired Oxygen 10/01/24 02:12 10/01/24 03:13 10/01/24 03:30 Temperature Pulse Rate 102 H 100 102 H Respiratory Rate 28 H Blood Pressure 107/61 109/59 L Pulse Oximetry Oxygen Delivery Fraction of Inspired Oxygen 10/01/24 03:55 10/01/24 04:00 10/01/24 04:00 Temperature Pulse Rate 101 H 104 H 104 H Respiratory Rate 28 H 28 H 28 H Blood Pressure Pulse Oximetry 97 Oxygen Delivery Fraction of Inspired Oxygen 10/01/24 04:00 10/01/24 04:00 10/01/24 04:00 Temperature Pulse Rate 102 H Respiratory Rate Blood Pressure Pulse Oximetry 96 Oxygen Delivery Mechanical Ventilation Fraction of Inspired Oxygen 85 85 10/01/24 04:00 10/01/24 04:21 10/01/24 04:23 Temperature 99.8 F H Pulse Rate 102 H 104 H 104 H Respiratory Rate 28 H 28 H Blood Pressure 112/61 109/59 L 109/59 L Pulse Oximetry 98 Oxygen Delivery Fraction of Inspired Oxygen 10/01/24 04:35 10/01/24 04:45 10/01/24 05:31 Temperature Pulse Rate 101 H 105 H 107 H Respiratory Rate 28 H Blood Pressure 106/66 Pulse Oximetry 97 Oxygen Delivery Mechanical Ventilation Fraction of Inspired Oxygen 85 10/01/24 05:31 10/01/24 06:00 10/01/24 06:00 Temperature Pulse Rate 107 H 106 H 106 H Respiratory Rate 28 H 28 H 28 H Blood Pressure 108/58 L Pulse Oximetry Oxygen Delivery Fraction of Inspired Oxygen 10/01/24 06:00 10/01/24 06:00 10/01/24 06:00 Temperature 100.1 F H Pulse Rate 105 H 106 H 106 H Respiratory Rate 28 H 28 H Blood Pressure 108/68 Pulse Oximetry 95 Oxygen Delivery Fraction of Inspired Oxygen 10/01/24 06:00 10/01/24 06:22 10/01/24 06:45 Temperature Pulse Rate 100 106 H 106 H Respiratory Rate 28 H Blood Pressure 108/57 L 108/51 L Pulse Oximetry 96 Oxygen Delivery Fraction of Inspired Oxygen 10/01/24 07:35 10/01/24 07:35 10/01/24 07:35 Temperature Pulse Rate 107 H 107 H 107 H Respiratory Rate 28 H 28 H Blood Pressure Pulse Oximetry 96 96 Oxygen Delivery Mechanical Ventilation Fraction of Inspired Oxygen 85 10/01/24 07:57 10/01/24 07:58 10/01/24 08:00 Temperature Pulse Rate 106 H 106 H 105 H Respiratory Rate 28 H 28 H Blood Pressure 98/55 L 98/55 L Pulse Oximetry Oxygen Delivery Fraction of Inspired Oxygen 10/01/24 08:00 10/01/24 08:00 10/01/24 08:00 Temperature Pulse Rate 105 H 105 H Respiratory Rate 28 H Blood Pressure 99/52 L Pulse Oximetry Oxygen Delivery Fraction of Inspired Oxygen 85 10/01/24 08:00 10/01/24 08:00 10/01/24 08:02 Temperature 99.9 F H Pulse Rate 103 H 102 H 105 H Respiratory Rate 28 H 30 H 28 H Blood Pressure 98/53 L 99/52 L Pulse Oximetry 97 97 Oxygen Delivery Mechanical Ventilation Fraction of Inspired Oxygen 85 10/01/24 08:16 10/01/24 08:32 10/01/24 08:45 Temperature Pulse Rate 103 H 104 H 103 H Respiratory Rate 28 H 30 H 30 H Blood Pressure 95/53 L 104/60 96/54 L Pulse Oximetry Oxygen Delivery Fraction of Inspired Oxygen 10/01/24 08:59 10/01/24 08:59 10/01/24 09:00 Temperature Pulse Rate 102 H 102 H 102 H Respiratory Rate 30 H 30 H 30 H Blood Pressure 102/55 L Pulse Oximetry Oxygen Delivery Fraction of Inspired Oxygen 10/01/24 09:15 Temperature Pulse Rate 101 H Respiratory Rate 30 H Blood Pressure 105/54 L Pulse Oximetry Oxygen Delivery Fraction of Inspired Oxygen Intake/Output Intake/Output: Intake & Output 09/28/24 09/29/24 09/30/24 10/01/24 23:59 23:59 23:59 23:59 Intake Total 2549.4 2657.2 2808.9 1245.4 Output Total 2037 5 37 15 Balance 512.4 2652.2 2771.9 1230.4 Meds/Results Medications: Active Medications Generic Name Dose Route Start Last Admin Trade Name Freq PRN Reason Stop Dose Admin Acetaminophen 650 mg 09/20/24 19:03 09/29/24 06:51 Acetaminophen Elixir 325 Mg/10.15 Ml Udc PO 650 mg Q4H PRN Administration Mild Pain (1-3) or Fever Albuterol/Ipratropium 3 ml 09/22/24 08:26 09/29/24 02:46 Ipratropium 0.5 Mg/Albuterol Sulfate 2.5 Mg Ampul.Neb 3 Ml INHALATION 3 ml Q6HRT PRN Administration wheezing Dextrose 12.5 gm 09/20/24 03:19 Dextrose 50% 25 Gm/50 Ml Syringe IV PUSH PRN PRN Hypoglycemia Protocol Enoxaparin Sodium 30 mg 09/27/24 09:00 10/01/24 08:13 Enoxaparin 30 Mg/0.3 Ml Syringe SUB-Q Not Given DAILY TOMY Epoprostenol Sodium 1 mg 09/29/24 08:56 10/01/24 07:35 Epoprostenol Sodium 0.5 Mg Vial INHALATION 1 mg PRN PRN Administration Titrate Glucagon 1 mg 09/20/24 03:19 Glucagon For Inj 1 Mg Vial IM PRN PRN Hypoglycemia Protocol Glucose 15 gm 09/20/24 03:19 Glucose Oral Gel 15 Gm Of Glucse In 37.5 Gm Tube PO PRN PRN Hypoglycemia Protocol Dextrose 1,000 mls @ 100 mls/hr 09/20/24 03:19 Dextrose 5% 1,000 Ml IVPB PRN PRN Hypoglycemia Protocol Midazolam HCl 100 mg in 100 mls @ 5 mls/hr 09/20/24 22:10 10/01/24 09:09 Versed 100 Mg/Ns 100 Ml IV CONT Not Given .Q20H TOMY Protocol 5 MG/HR Albumin Human 50 mls @ 999 mls/hr 09/26/24 12:07 09/28/24 10:41 Albutein IVPB 10/26/24 12:06 999 mls/hr Q10M PRN Administration HYPOTENSION Propofol 100 mls @ 14.574 mls/hr 09/27/24 10:15 10/01/24 08:59 Diprivan IV CONT 35 mcg/kg/min .Q6H52M TOMY 14.57 mls/hr Administration Protocol 35 MCG/KG/MIN Norepinephrine Bitartrate 8 mg in 250 mls @ 0 mls/hr 09/27/24 10:15 10/01/24 09:10 Levophed 8 Mg/D5w 250 Ml IV CONT Not Given .Q0M TOMY Protocol 0 MCG/MIN Meropenem 1 gm in 100 mls @ 200 mls/hr 09/27/24 18:00 09/30/24 19:18 IVPB Infused Q24H TOMY Infusion Cisatracurium Besylate 200 mg/ 100 mls @ 6.246 mls/hr 09/28/24 02:05 10/01/24 09:15 Sodium Chloride IV CONT 2.5 mcg/kg/min .Q16H1M TOMY 5.21 mls/hr Titration Protocol 3 MCG/KG/MIN Insulin Human Regular 100 100 mls @ 1 mls/hr 09/28/24 08:30 10/01/24 09:09 units/ Sodium Chloride IV CONT Not Given .Q24H TOMY Protocol 1 UNITS/HR Linezolid 600 mg in 300 mls @ 300 mls/hr 09/29/24 02:00 10/01/24 04:26 Zyvox IVPB Infused Q12H TOMY Infusion Micafungin Sodium 100 mg/ 100 mls @ 100 mls/hr 09/30/24 09:00 10/01/24 09:18 Sodium Chloride IVPB Infused DAILY TOMY Infusion Insulin Aspart 4 - 8 units 09/21/24 08:40 09/28/24 04:43 Insulin Aspart (*Bkc) 100 Units/Ml SUB-Q 8 units Q4H TOMY Administration Protocol Insulin Glargine 40 units 09/22/24 09:00 09/27/24 09:10 Insulin Glargine (*Bkc) 100 Units/Ml SUB-Q 40 units QAM TOMY Administration Levothyroxine Sodium 100 mcg 09/21/24 06:30 10/01/24 06:24 Levothyroxine Sodium 100 Mcg Tablet FEED TUBE Not Given DAILY@0630 [facility] Miscellaneous Information 0 each 09/29/24 00:01 10/01/24 00:04 Ivs In Normal Saline XX 10/29/24 00:00 Not Given CLARIFY TOMY Multi-Ingred Cream/Lotion/Oil/Oint 1 applic 09/20/24 21:00 10/01/24 08:05 Mineral Oil/White Petrolatum Ointment EACH EYE 1 applic Q12HR TOMY Administration Pantoprazole Sodium 40 mg 09/20/24 09:00 10/01/24 08:12 Pantoprazole Sodium Iv 40 Mg Vial IV PUSH 40 mg QAM TOMY Administration Sodium Chloride 10 ml 09/20/24 14:00 10/01/24 06:24 Central Line Flush IV PUSH 10 ml Q8HR TOMY Administration Sodium Chloride 20 ml 09/20/24 06:40 Central Line Flush IV PUSH PRN PRN after blood draws Radiology Results: ITS Impressions Chest CTA 09/20/24 05:30 Impression: Bilateral multifocal pneumonia, most extensively involving the lower lobes. No pulmonary embolus seen. Abdomen X-Ray 09/20/24 05:35 Impression: NG tube in satisfactory position. Abdomen Ultrasound 09/22/24 15:02 IMPRESSION: 1: Gallbladder wall thickening, nonspecific. No evidence for gallstones. 2: Fatty infiltration of the liver. Renal Ultrasound 09/22/24 15:14 IMPRESSION: 1. Normal kidneys without hydronephrosis. Head CT 09/29/24 11:59 IMPRESSION: 1. Normal brain. Chest/Abdomen/Pelvis CTA 09/29/24 12:00 IMPRESSION: 1. No evident pulmonary embolism. Sensitivity decreased in the segmental and subsegmental pulmonary arteries due to combination of respiratory motion and streak artifact. 2. Significant interval progression in diffuse bilateral lung disease with interval development of numerous cavitary lesions throughout both lungs consistent with cavitary pneumonia and ARDS. 3. Left chest tube in the left major fissure. No pneumothorax or pleural effusion. 4. Very small amount of ascites in the pelvis. No abscess or other acute intra-abdominal/pelvic process. Chest X-Ray 10/01/24 06:34 Impression: Extensive bilateral airspace disease unchanged, compatible extensive bilateral pneumonia. No pneumothorax. Stable support tubes. Labs Labs: Laboratory Results - last 24 hr 09/30/24 09/30/24 09/30/24 10:27 10:31 10:39 WBC RBC Hgb Hct MCV MCH MCHC RDW Plt Count MPV Immature Gran % (Auto) Neut % (Auto) Lymph % (Auto) Pierce % (Auto) Eos % (Auto) Baso % (Auto) Lymph # (Auto) Pierce # (Auto) Eos # (Auto) Baso # (Auto) Abs Immat Gran (auto) Absolute Neuts (auto) Absolute Nucleated RBC Total Counted Neutrophils % (Manual) Band Neutrophils % Lymphocytes % (Manual) Monocytes % (Manual) Nucleated RBC % Abs Neuts (Manual) Abs Lymphs (Manual) Abs Monocytes (Manual) Smudge Cells Platelet Estimate Anisocytosis Schistocytes PT INR APTT Puncture Site ABG pH ABG pCO2 ABG pO2 ABG PO2/FiO2 Ratio ABG HCO3 ABG O2 Saturation ABG O2 Content ABG Base Excess A-a Gradient Oxyhemoglobin Carboxyhemoglobin Methemoglobin Reduced Hemoglobin Total Hemoglobin O2 Delivery Device O2 Liters/Min Minute Volume Vent Rate Vent Mode FiO2 Tidal Volume PEEP Peak Inspir Pressure Pressure Support Sodium Cancelled 130 L Potassium Cancelled 5.3 H Chloride Cancelled 93 L Carbon Dioxide Cancelled 23 Anion Gap Cancelled 14 H BUN Cancelled 100 H Creatinine Cancelled 3.79 H Estim Creat Clear Calc Cancelled 17 Estimated GFR Cancelled 13 L Glucose Cancelled 241 H POC Capillary Glucose 228 H Hemoglobin A1c Lactic Acid Calcium Cancelled 8.9 Phosphorus Magnesium Total Bilirubin Direct Bilirubin Indirect Bilirubin AST ALT Alkaline Phosphatase Total Creatine Kinase CK-MB (CK-2) Troponin I Total Protein Albumin Amylase Lipase SARS-CoV-2 RNA (RT-PCR) 09/30/24 09/30/24 09/30/24 11:38 13:12 14:18 WBC RBC Hgb Hct MCV MCH MCHC RDW Plt Count MPV Immature Gran % (Auto) Neut % (Auto) Lymph % (Auto) Pierce % (Auto) Eos % (Auto) Baso % (Auto) Lymph # (Auto) Pierce # (Auto) Eos # (Auto) Baso # (Auto) Abs Immat Gran (auto) Absolute Neuts (auto) Absolute Nucleated RBC Total Counted Neutrophils % (Manual) Band Neutrophils % Lymphocytes % (Manual) Monocytes % (Manual) Nucleated RBC % Abs Neuts (Manual) Abs Lymphs (Manual) Abs Monocytes (Manual) Smudge Cells Platelet Estimate Anisocytosis Schistocytes PT INR APTT Puncture Site ABG pH ABG pCO2 ABG pO2 ABG PO2/FiO2 Ratio ABG HCO3 ABG O2 Saturation ABG O2 Content ABG Base Excess A-a Gradient Oxyhemoglobin Carboxyhemoglobin Methemoglobin Reduced Hemoglobin Total Hemoglobin O2 Delivery Device O2 Liters/Min Minute Volume Vent Rate Vent Mode FiO2 Tidal Volume PEEP Peak Inspir Pressure Pressure Support Sodium Potassium Chloride Carbon Dioxide Anion Gap BUN Creatinine Estim Creat Clear Calc Estimated GFR Glucose POC Capillary Glucose 216 H 180 H 225 H Hemoglobin A1c Lactic Acid Calcium Phosphorus Magnesium Total Bilirubin Direct Bilirubin Indirect Bilirubin AST ALT Alkaline Phosphatase Total Creatine Kinase CK-MB (CK-2) Troponin I Total Protein Albumin Amylase Lipase SARS-CoV-2 RNA (RT-PCR) 09/30/24 09/30/24 09/30/24 15:18 16:36 17:05 WBC 51.2 H* RBC 3.00 L Hgb 7.9 L Hct 22.8 L MCV 76.0 L MCH 26.3 D MCHC 34.6 RDW 19.9 H Plt Count 268 MPV 12.0 H Immature Gran % (Auto) Neut % (Auto) Lymph % (Auto) Pierce % (Auto) Eos % (Auto) Baso % (Auto) Lymph # (Auto) Pierce # (Auto) Eos # (Auto) Baso # (Auto) Abs Immat Gran (auto) Absolute Neuts (auto) Absolute Nucleated RBC Total Counted Neutrophils % (Manual) Band Neutrophils % Lymphocytes % (Manual) Monocytes % (Manual) Nucleated RBC % Abs Neuts (Manual) Abs Lymphs (Manual) Abs Monocytes (Manual) Smudge Cells Platelet Estimate Anisocytosis Schistocytes PT 15.3 H INR 1.2 APTT 34.0 Puncture Site ABG pH ABG pCO2 ABG pO2 ABG PO2/FiO2 Ratio ABG HCO3 ABG O2 Saturation ABG O2 Content ABG Base Excess A-a Gradient Oxyhemoglobin Carboxyhemoglobin Methemoglobin Reduced Hemoglobin Total Hemoglobin O2 Delivery Device O2 Liters/Min Minute Volume Vent Rate Vent Mode FiO2 Tidal Volume PEEP Peak Inspir Pressure Pressure Support Sodium 129 L Potassium 5.3 H Chloride 93 L Carbon Dioxide 22 Anion Gap 14 H BUN 107 H Creatinine 3.76 H Estim Creat Clear Calc 17 Estimated GFR 13 L Glucose 225 H POC Capillary Glucose 229 H 246 H Hemoglobin A1c 11.1 H Lactic Acid 1.3 Calcium 8.7 Phosphorus 7.6 H Magnesium 2.6 H Total Bilirubin 0.7 Direct Bilirubin Indirect Bilirubin AST ALT Alkaline Phosphatase Total Creatine Kinase CK-MB (CK-2) Troponin I Total Protein Albumin Amylase Lipase SARS-CoV-2 RNA (RT-PCR) 09/30/24 09/30/24 09/30/24 17:05 17:05 17:05 WBC RBC Hgb Hct MCV MCH MCHC RDW Plt Count MPV Immature Gran % (Auto) Neut % (Auto) Lymph % (Auto) Pierce % (Auto) Eos % (Auto) Baso % (Auto) Lymph # (Auto) Pierce # (Auto) Eos # (Auto) Baso # (Auto) Abs Immat Gran (auto) Absolute Neuts (auto) Absolute Nucleated RBC Total Counted Neutrophils % (Manual) Band Neutrophils % Lymphocytes % (Manual) Monocytes % (Manual) Nucleated RBC % Abs Neuts (Manual) Abs Lymphs (Manual) Abs Monocytes (Manual) Smudge Cells Platelet Estimate Anisocytosis Schistocytes PT INR APTT Puncture Site ABG pH ABG pCO2 ABG pO2 ABG PO2/FiO2 Ratio ABG HCO3 ABG O2 Saturation ABG O2 Content ABG Base Excess A-a Gradient Oxyhemoglobin Carboxyhemoglobin Methemoglobin Reduced Hemoglobin Total Hemoglobin O2 Delivery Device O2 Liters/Min Minute Volume Vent Rate Vent Mode FiO2 Tidal Volume PEEP Peak Inspir Pressure Pressure Support Sodium Potassium Chloride Carbon Dioxide Anion Gap BUN Creatinine Estim Creat Clear Calc Estimated GFR Glucose POC Capillary Glucose Hemoglobin A1c Lactic Acid Calcium Phosphorus Magnesium Total Bilirubin 0.7 Direct Bilirubin 0.0 Indirect Bilirubin AST 153 H 154 H ALT 48 H 49 H Alkaline Phosphatase 561 H Total Creatine Kinase CK-MB (CK-2) Troponin I Total Protein Albumin Amylase Lipase SARS-CoV-2 RNA (RT-PCR) 09/30/24 09/30/24 09/30/24 17:05 17:05 17:05 WBC RBC Hgb Hct MCV MCH MCHC RDW Plt Count MPV Immature Gran % (Auto) Neut % (Auto) Lymph % (Auto) Pierce % (Auto) Eos % (Auto) Baso % (Auto) Lymph # (Auto) Pierce # (Auto) Eos # (Auto) Baso # (Auto) Abs Immat Gran (auto) Absolute Neuts (auto) Absolute Nucleated RBC Total Counted Neutrophils % (Manual) Band Neutrophils % Lymphocytes % (Manual) Monocytes % (Manual) Nucleated RBC % Abs Neuts (Manual) Abs Lymphs (Manual) Abs Monocytes (Manual) Smudge Cells Platelet Estimate Anisocytosis Schistocytes PT INR APTT Puncture Site ABG pH ABG pCO2 ABG pO2 ABG PO2/FiO2 Ratio ABG HCO3 ABG O2 Saturation ABG O2 Content ABG Base Excess A-a Gradient Oxyhemoglobin Carboxyhemoglobin Methemoglobin Reduced Hemoglobin Total Hemoglobin O2 Delivery Device O2 Liters/Min Minute Volume Vent Rate Vent Mode FiO2 Tidal Volume PEEP Peak Inspir Pressure Pressure Support Sodium Potassium Chloride Carbon Dioxide Anion Gap BUN Creatinine Estim Creat Clear Calc Estimated GFR Glucose POC Capillary Glucose Hemoglobin A1c Lactic Acid Calcium Phosphorus Magnesium Total Bilirubin Direct Bilirubin Indirect Bilirubin AST ALT Alkaline Phosphatase 572 H Total Creatine Kinase 89 CK-MB (CK-2) Cancelled Troponin I 0.059 H* Total Protein 6.0 L 6.0 L Albumin 2.5 L 2.5 L Amylase 276 H Lipase 651 H SARS-CoV-2 RNA (RT-PCR) Negative 09/30/24 09/30/24 09/30/24 17:10 18:01 19:01 WBC RBC Hgb Hct MCV MCH MCHC RDW Plt Count MPV Immature Gran % (Auto) Neut % (Auto) Lymph % (Auto) Pierce % (Auto) Eos % (Auto) Baso % (Auto) Lymph # (Auto) Pierce # (Auto) Eos # (Auto) Baso # (Auto) Abs Immat Gran (auto) Absolute Neuts (auto) Absolute Nucleated RBC Total Counted Neutrophils % (Manual) Band Neutrophils % Lymphocytes % (Manual) Monocytes % (Manual) Nucleated RBC % Abs Neuts (Manual) Abs Lymphs (Manual) Abs Monocytes (Manual) Smudge Cells Platelet Estimate Anisocytosis Schistocytes PT INR APTT Puncture Site ABG pH ABG pCO2 ABG pO2 ABG PO2/FiO2 Ratio ABG HCO3 ABG O2 Saturation ABG O2 Content ABG Base Excess A-a Gradient Oxyhemoglobin Carboxyhemoglobin Methemoglobin Reduced Hemoglobin Total Hemoglobin O2 Delivery Device O2 Liters/Min Minute Volume Vent Rate Vent Mode FiO2 Tidal Volume PEEP Peak Inspir Pressure Pressure Support Sodium Potassium Chloride Carbon Dioxide Anion Gap BUN Creatinine Estim Creat Clear Calc Estimated GFR Glucose POC Capillary Glucose 221 H 227 H 222 H Hemoglobin A1c Lactic Acid Calcium Phosphorus Magnesium Total Bilirubin Direct Bilirubin Indirect Bilirubin AST ALT Alkaline Phosphatase Total Creatine Kinase CK-MB (CK-2) Troponin I Total Protein Albumin Amylase Lipase SARS-CoV-2 RNA (RT-PCR) 09/30/24 09/30/24 09/30/24 20:01 20:58 22:34 WBC RBC Hgb Hct MCV MCH MCHC RDW Plt Count MPV Immature Gran % (Auto) Neut % (Auto) Lymph % (Auto) Pierce % (Auto) Eos % (Auto) Baso % (Auto) Lymph # (Auto) Pierce # (Auto) Eos # (Auto) Baso # (Auto) Abs Immat Gran (auto) Absolute Neuts (auto) Absolute Nucleated RBC Total Counted Neutrophils % (Manual) Band Neutrophils % Lymphocytes % (Manual) Monocytes % (Manual) Nucleated RBC % Abs Neuts (Manual) Abs Lymphs (Manual) Abs Monocytes (Manual) Smudge Cells Platelet Estimate Anisocytosis Schistocytes PT INR APTT Puncture Site ABG pH ABG pCO2 ABG pO2 ABG PO2/FiO2 Ratio ABG HCO3 ABG O2 Saturation ABG O2 Content ABG Base Excess A-a Gradient Oxyhemoglobin Carboxyhemoglobin Methemoglobin Reduced Hemoglobin Total Hemoglobin O2 Delivery Device O2 Liters/Min Minute Volume Vent Rate Vent Mode FiO2 Tidal Volume PEEP Peak Inspir Pressure Pressure Support Sodium Potassium Chloride Carbon Dioxide Anion Gap BUN Creatinine Estim Creat Clear Calc Estimated GFR Glucose POC Capillary Glucose 246 H 251 H 251 H Hemoglobin A1c Lactic Acid Calcium Phosphorus Magnesium Total Bilirubin Direct Bilirubin Indirect Bilirubin AST ALT Alkaline Phosphatase Total Creatine Kinase CK-MB (CK-2) Troponin I Total Protein Albumin Amylase Lipase SARS-CoV-2 RNA (RT-PCR) 09/30/24 10/01/24 10/01/24 23:07 00:13 01:02 WBC 48.5 H RBC 2.83 L Hgb 7.5 L Hct 21.3 L MCV 75.3 L MCH 26.5 MCHC 35.2 RDW 19.7 H Plt Count 263 MPV 11.4 H Immature Gran % (Auto) Neut % (Auto) Lymph % (Auto) Pierce % (Auto) Eos % (Auto) Baso % (Auto) Lymph # (Auto) Pierce # (Auto) Eos # (Auto) Baso # (Auto) Abs Immat Gran (auto) Absolute Neuts (auto) Absolute Nucleated RBC Total Counted Neutrophils % (Manual) Band Neutrophils % Lymphocytes % (Manual) Monocytes % (Manual) Nucleated RBC % Abs Neuts (Manual) Abs Lymphs (Manual) Abs Monocytes (Manual) Smudge Cells Platelet Estimate Anisocytosis Schistocytes PT 15.1 H INR 1.1 APTT 32.3 Puncture Site Left radial ABG pH 7.261 L* ABG pCO2 49.5 H ABG pO2 107.4 H ABG PO2/FiO2 Ratio 1.26 ABG HCO3 21.8 L ABG O2 Saturation 97.2 ABG O2 Content 10.3 L ABG Base Excess -5.0 A-a Gradient 447.3 Oxyhemoglobin 97.3 Carboxyhemoglobin Methemoglobin Reduced Hemoglobin Total Hemoglobin 7.4 L* O2 Delivery Device Ventilator O2 Liters/Min Not Reportable Minute Volume Not Reportable Vent Rate 28 Vent Mode Cmv FiO2 85 Tidal Volume 370 PEEP 12 Peak Inspir Pressure Not Reportable Pressure Support Not Reportable Sodium 130 L Potassium 4.9 Chloride 93 L Carbon Dioxide 21 L Anion Gap 16 H BUN 116 H Creatinine 4.41 H Estim Creat Clear Calc 15 Estimated GFR 11 L Glucose 233 H POC Capillary Glucose 200 H Hemoglobin A1c Lactic Acid 1.4 Calcium 8.4 Phosphorus 8.2 H Magnesium 2.7 H Total Bilirubin 0.6 Direct Bilirubin 0.0 Indirect Bilirubin AST 139 H ALT 44 H Alkaline Phosphatase 516 H Total Creatine Kinase CK-MB (CK-2) Troponin I Total Protein 6.0 L Albumin 2.4 L Amylase 271 H Lipase 622 H SARS-CoV-2 RNA (RT-PCR) 10/01/24 10/01/24 10/01/24 01:06 02:10 03:10 WBC RBC Hgb Hct MCV MCH MCHC RDW Plt Count MPV Immature Gran % (Auto) Neut % (Auto) Lymph % (Auto) Pierce % (Auto) Eos % (Auto) Baso % (Auto) Lymph # (Auto) Pierce # (Auto) Eos # (Auto) Baso # (Auto) Abs Immat Gran (auto) Absolute Neuts (auto) Absolute Nucleated RBC Total Counted Neutrophils % (Manual) Band Neutrophils % Lymphocytes % (Manual) Monocytes % (Manual) Nucleated RBC % Abs Neuts (Manual) Abs Lymphs (Manual) Abs Monocytes (Manual) Smudge Cells Platelet Estimate Anisocytosis Schistocytes PT INR APTT Puncture Site ABG pH ABG pCO2 ABG pO2 ABG PO2/FiO2 Ratio ABG HCO3 ABG O2 Saturation ABG O2 Content ABG Base Excess A-a Gradient Oxyhemoglobin Carboxyhemoglobin Methemoglobin Reduced Hemoglobin Total Hemoglobin O2 Delivery Device O2 Liters/Min Minute Volume Vent Rate Vent Mode FiO2 Tidal Volume PEEP Peak Inspir Pressure Pressure Support Sodium Potassium Chloride Carbon Dioxide Anion Gap BUN Creatinine Estim Creat Clear Calc Estimated GFR Glucose POC Capillary Glucose 232 H 221 H 293 H Hemoglobin A1c Lactic Acid Calcium Phosphorus Magnesium Total Bilirubin Direct Bilirubin Indirect Bilirubin AST ALT Alkaline Phosphatase Total Creatine Kinase CK-MB (CK-2) Troponin I Total Protein Albumin Amylase Lipase SARS-CoV-2 RNA (RT-PCR) 10/01/24 10/01/24 10/01/24 04:19 04:37 05:12 WBC 48.0 H RBC 2.83 L Hgb 7.4 L Hct 21.1 L MCV 74.6 L MCH 26.1 MCHC 35.1 RDW 20.0 H Plt Count 277 MPV 11.2 H Immature Gran % (Auto) Not Reportable Neut % (Auto) Not Reportable Lymph % (Auto) Not Reportable Pierce % (Auto) Not Reportable Eos % (Auto) Not Reportable Baso % (Auto) Not Reportable Lymph # (Auto) Not Reportable Pierce # (Auto) Not Reportable Eos # (Auto) Not Reportable Baso # (Auto) Not Reportable Abs Immat Gran (auto) Not Reportable Absolute Neuts (auto) Not Reportable Absolute Nucleated RBC Not Reportable Total Counted 100 Neutrophils % (Manual) 92 H Band Neutrophils % 5 Lymphocytes % (Manual) 1.0 L Monocytes % (Manual) 2 L Nucleated RBC % Not Reportable Abs Neuts (Manual) 46.56 H Abs Lymphs (Manual) 0.48 L Abs Monocytes (Manual) 0.96 H Smudge Cells Present Platelet Estimate Slightly increased Anisocytosis 1+ Schistocytes None seen PT 15.3 H INR 1.2 APTT 32.1 Puncture Site Right radial ABG pH 7.248 L* ABG pCO2 49.8 H ABG pO2 127.5 H ABG PO2/FiO2 Ratio 1.50 ABG HCO3 21.3 L ABG O2 Saturation 98.0 ABG O2 Content 10.2 L ABG Base Excess -5.7 A-a Gradient 426.9 Oxyhemoglobin 96.9 Carboxyhemoglobin 1.0 Methemoglobin 0.3 Reduced Hemoglobin 1.8 Total Hemoglobin 7.3 L* O2 Delivery Device Ventilator O2 Liters/Min Not Reportable Minute Volume Not Reportable Vent Rate 28 Vent Mode Cmv FiO2 85 Tidal Volume 370 PEEP 12 Peak Inspir Pressure Not Reportable Pressure Support Not Reportable Sodium 127 L Potassium 4.8 Chloride 92 L Carbon Dioxide 19 L Anion Gap 16 H BUN 124 H Creatinine 4.58 H Estim Creat Clear Calc 14 Estimated GFR 11 L Glucose 309 H POC Capillary Glucose 354 H Hemoglobin A1c Lactic Acid 1.5 Calcium 8.3 L Phosphorus 9.0 H Magnesium 2.7 H Total Bilirubin 0.6 Direct Bilirubin 0.0 Indirect Bilirubin 0.1 AST 125 H ALT 40 H Alkaline Phosphatase 510 H Total Creatine Kinase CK-MB (CK-2) Troponin I Total Protein 6.0 L Albumin 2.4 L Amylase 281 H Lipase 605 H SARS-CoV-2 RNA (RT-PCR) 10/01/24 10/01/24 10/01/24 06:41 07:54 08:51 WBC RBC Hgb Hct MCV MCH MCHC RDW Plt Count MPV Immature Gran % (Auto) Neut % (Auto) Lymph % (Auto) Pierce % (Auto) Eos % (Auto) Baso % (Auto) Lymph # (Auto) Pierce # (Auto) Eos # (Auto) Baso # (Auto) Abs Immat Gran (auto) Absolute Neuts (auto) Absolute Nucleated RBC Total Counted Neutrophils % (Manual) Band Neutrophils % Lymphocytes % (Manual) Monocytes % (Manual) Nucleated RBC % Abs Neuts (Manual) Abs Lymphs (Manual) Abs Monocytes (Manual) Smudge Cells Platelet Estimate Anisocytosis Schistocytes PT INR APTT Puncture Site ABG pH ABG pCO2 ABG pO2 ABG PO2/FiO2 Ratio ABG HCO3 ABG O2 Saturation ABG O2 Content ABG Base Excess A-a Gradient Oxyhemoglobin Carboxyhemoglobin Methemoglobin Reduced Hemoglobin Total Hemoglobin O2 Delivery Device O2 Liters/Min Minute Volume Vent Rate Vent Mode FiO2 Tidal Volume PEEP Peak Inspir Pressure Pressure Support Sodium Potassium Chloride Carbon Dioxide Anion Gap BUN Creatinine Estim Creat Clear Calc Estimated GFR Glucose POC Capillary Glucose 235 H 211 H 186 H Hemoglobin A1c Lactic Acid Calcium Phosphorus Magnesium Total Bilirubin Direct Bilirubin Indirect Bilirubin AST ALT Alkaline Phosphatase Total Creatine Kinase CK-MB (CK-2) Troponin I Total Protein Albumin Amylase Lipase SARS-CoV-2 RNA (RT-PCR) Quality VTE Prophylaxis VTE prophylaxis: pharmacologic ordered
[2024-10-01 10:03] LABS: Glucose Point of Care 176 mg/dl (65-105)
[2024-10-01 10:32] LABS: Mean Corpuscular Hemoglobin 26.1 pg (26-34); Mean Corpuscular Volume 74.6 fl (80-100); Mean Platelet Volume 11.6 fl (7.4-10.4); Platelet Count Result 290 k/mm3 (150-375); Red Blood Count 2.68 M/mm3 (4.2-5.4); Red Cell Distribution Width 19.9 % (11.5-14.5); White Blood Count 43.8 K/mm3 (4.5-10.0)
[2024-10-01 10:40] LABS: Lactic Acid Reflex 1.4 mmol/L (0.7-2.0)
[2024-10-01 10:44] LABS: INR 1.1; Prothrombin Time 14.9 Seconds (11.1-14.7)
[2024-10-01 10:45] LABS: Partial Thromboplastin Time 29.6 Seconds (22.3-36.8)
[2024-10-01 10:46] LABS: Alanine Aminotransferase 38 U/L (6-35); Albumin Level 2.5 g/dL (3.5-5.1); Alkaline Phosphatase 473 U/L (38-126); Amylase 313 U/L (30-110); Anion Gap 16 mmol/L (4-12); Aspartate Amino Transferase 113 U/L (14-36); Bilirubin,Total 0.5 mg/dL (0.2-1.3); Calcium 8.3 mg/dL (8.4-10.2); Carbon Dioxide 20 mmol/L (22-30); Chloride 93 mmol/L (98-107); Glucose 169 mg/dL (65-110); Lipase 598 U/L (23-300); Magnesium 2.8 mg/dL (1.6-2.3); Phosphorus 9.5 mg/dL (2.5-4.5); Potassium 5.3 mmol/L (3.4-5.0); Sodium 129 mmol/L (137-145)
[2024-10-01 10:51] LABS: Blood Urea Nitrogen 130 mg/dL (7-17); Estimated CRCL calculation 14 ml/min; Estimated Glomerular Filt Rate 10
[2024-10-01 10:52] LABS: Triglycerides 1195 mg/dL (<150)
[2024-10-01 10:58] LABS: Glucose Point of Care 170 mg/dl (65-105)
[2024-10-01 12:11] LABS: Glucose Point of Care 176 mg/dl (65-105)
[2024-10-01 12:58] LABS: GGT 78 U/L (3-55)
[2024-10-01 12:58] LABS: GGT 78 U/L (3-55)
[2024-10-01 12:58] LABS: GGT 77 U/L (3-55)
[2024-10-01 13:13] LABS: Glucose Point of Care 188 mg/dl (65-105)
--- NOTE | 2024-10-01 13:22 | PM.IMPN ---
Subjective Date/time seen: 10/01/24 13:22 Objective Data Vital Signs Vital Signs: Vital Signs - 24 hr 09/30/24 13:45 09/30/24 14:00 09/30/24 14:00 Temperature Pulse Rate 116 H 115 H 115 H Respiratory Rate 28 H 28 H Blood Pressure 98/54 L Pulse Oximetry Oxygen Delivery Fraction of Inspired Oxygen 09/30/24 14:00 09/30/24 14:00 09/30/24 14:00 Temperature 38.3 C H Pulse Rate 115 H 117 H 115 H Respiratory Rate 28 H 28 H Blood Pressure 98/57 L Pulse Oximetry 93 Oxygen Delivery Fraction of Inspired Oxygen 09/30/24 14:23 09/30/24 14:28 09/30/24 14:28 Temperature Pulse Rate 112 H 111 H 111 H Respiratory Rate 28 H 28 H Blood Pressure 97/58 L Pulse Oximetry 94 94 Oxygen Delivery Mechanical Ventilation Fraction of Inspired Oxygen 85 09/30/24 14:41 09/30/24 14:41 09/30/24 14:46 Temperature Pulse Rate 110 H 110 H 111 H Respiratory Rate 28 H 28 H 28 H Blood Pressure 102/62 Pulse Oximetry Oxygen Delivery Fraction of Inspired Oxygen 09/30/24 15:06 09/30/24 16:00 09/30/24 16:00 Temperature Pulse Rate 109 H 112 H 112 H Respiratory Rate 28 H 28 H 28 H Blood Pressure 95/60 L 103/60 Pulse Oximetry Oxygen Delivery Fraction of Inspired Oxygen 09/30/24 16:00 09/30/24 16:00 09/30/24 16:00 Temperature Pulse Rate 112 H 119 H Respiratory Rate 28 H Blood Pressure Pulse Oximetry 94 Oxygen Delivery Mechanical Ventilation Fraction of Inspired Oxygen 85 09/30/24 16:00 09/30/24 16:00 09/30/24 16:00 Temperature 38.1 C H Pulse Rate 112 H 112 H Respiratory Rate 28 H Blood Pressure 103/60 Pulse Oximetry 94 Oxygen Delivery Fraction of Inspired Oxygen 85 09/30/24 16:29 09/30/24 16:29 09/30/24 18:00 Temperature Pulse Rate 114 H 114 H 114 H Respiratory Rate 28 H Blood Pressure Pulse Oximetry 94 94 Oxygen Delivery Mechanical Ventilation Fraction of Inspired Oxygen 85 09/30/24 18:00 09/30/24 18:00 09/30/24 18:00 Temperature 38.4 C H Pulse Rate 114 H 114 H 114 H Respiratory Rate 28 H 28 H 28 H Blood Pressure 120/60 120/60 Pulse Oximetry 93 Oxygen Delivery Fraction of Inspired Oxygen 09/30/24 18:00 09/30/24 18:00 09/30/24 18:44 Temperature Pulse Rate 114 H 114 H 112 H Respiratory Rate 28 H Blood Pressure Pulse Oximetry 93 Oxygen Delivery Mechanical Ventilation Fraction of Inspired Oxygen 85 09/30/24 18:44 09/30/24 19:47 09/30/24 19:48 Temperature Pulse Rate 112 H 113 H 113 H Respiratory Rate 28 H 28 H Blood Pressure Pulse Oximetry 93 94 96 Oxygen Delivery Mechanical Ventilation Fraction of Inspired Oxygen 85 09/30/24 20:00 09/30/24 20:00 09/30/24 20:00 Temperature Pulse Rate 112 H 113 H Respiratory Rate Blood Pressure 106/59 L Pulse Oximetry 94 Oxygen Delivery Mechanical Ventilation Fraction of Inspired Oxygen 85 09/30/24 20:00 09/30/24 20:00 09/30/24 20:02 Temperature 38.3 C H Pulse Rate 113 H 113 H Respiratory Rate 28 H 28 H Blood Pressure 106/59 L Pulse Oximetry 94 Oxygen Delivery Fraction of Inspired Oxygen 85 09/30/24 20:03 09/30/24 20:04 09/30/24 20:25 Temperature Pulse Rate 113 H 113 H 113 H Respiratory Rate 28 H 28 H 28 H Blood Pressure 106/59 L 104/57 L Pulse Oximetry Oxygen Delivery Fraction of Inspired Oxygen 09/30/24 20:27 09/30/24 20:27 09/30/24 21:05 Temperature Pulse Rate 113 H 113 H 111 H Respiratory Rate 28 H 28 H 28 H Blood Pressure 101/57 L Pulse Oximetry Oxygen Delivery Fraction of Inspired Oxygen 09/30/24 21:50 09/30/24 22:00 09/30/24 22:00 Temperature Pulse Rate 110 H 110 H 110 H Respiratory Rate 28 H 28 H 28 H Blood Pressure 99/53 L Pulse Oximetry 95 Oxygen Delivery Fraction of Inspired Oxygen 09/30/24 22:00 09/30/24 22:00 09/30/24 22:00 Temperature 38.0 C H Pulse Rate 110 H 110 H 110 H Respiratory Rate 28 H 28 H Blood Pressure 99/53 L Pulse Oximetry 95 Oxygen Delivery Fraction of Inspired Oxygen 09/30/24 23:10 09/30/24 23:10 09/30/24 23:15 Temperature Pulse Rate 109 H 109 H 108 H Respiratory Rate 28 H 28 H Blood Pressure 94/56 L 94/56 L 94/49 L Pulse Oximetry Oxygen Delivery Fraction of Inspired Oxygen 09/30/24 23:30 09/30/24 23:59 10/01/24 00:00 Temperature Pulse Rate 113 H 106 H Respiratory Rate 28 H Blood Pressure Pulse Oximetry 96 96 96 Oxygen Delivery Mechanical Ventilation Mechanical Ventilation Fraction of Inspired Oxygen 85 85 10/01/24 00:00 10/01/24 00:00 10/01/24 00:00 Temperature 37.8 C H Pulse Rate 106 H 106 H Respiratory Rate 28 H Blood Pressure 94/59 L Pulse Oximetry 96 Oxygen Delivery Fraction of Inspired Oxygen 85 10/01/24 00:14 10/01/24 00:16 10/01/24 00:16 Temperature Pulse Rate 105 H 105 H 105 H Respiratory Rate 28 H 28 H Blood Pressure 98/60 L 104/53 L Pulse Oximetry Oxygen Delivery Fraction of Inspired Oxygen 10/01/24 00:17 10/01/24 00:30 10/01/24 01:57 Temperature Pulse Rate 105 H 104 H 101 H Respiratory Rate 28 H 28 H Blood Pressure 117/64 Pulse Oximetry 97 Oxygen Delivery Fraction of Inspired Oxygen 10/01/24 01:57 10/01/24 02:00 10/01/24 02:00 Temperature 37.7 C H Pulse Rate 101 H 101 H 101 H Respiratory Rate 28 H Blood Pressure 105/64 Pulse Oximetry 97 97 Oxygen Delivery Mechanical Ventilation Fraction of Inspired Oxygen 85 10/01/24 02:00 10/01/24 02:00 10/01/24 02:00 Temperature Pulse Rate 101 H 101 H 101 H Respiratory Rate 28 H 28 H Blood Pressure 105/64 105/64 Pulse Oximetry Oxygen Delivery Fraction of Inspired Oxygen 10/01/24 02:12 10/01/24 02:12 10/01/24 03:13 Temperature Pulse Rate 102 H 102 H 100 Respiratory Rate 28 H 28 H Blood Pressure 107/61 Pulse Oximetry Oxygen Delivery Fraction of Inspired Oxygen 10/01/24 03:30 10/01/24 03:55 10/01/24 04:00 Temperature Pulse Rate 102 H 101 H 104 H Respiratory Rate 28 H 28 H Blood Pressure 109/59 L Pulse Oximetry 97 Oxygen Delivery Fraction of Inspired Oxygen 10/01/24 04:00 10/01/24 04:00 10/01/24 04:00 Temperature Pulse Rate 104 H Respiratory Rate 28 H Blood Pressure Pulse Oximetry 96 Oxygen Delivery Mechanical Ventilation Fraction of Inspired Oxygen 85 85 10/01/24 04:00 10/01/24 04:00 10/01/24 04:21 Temperature 37.7 C H Pulse Rate 102 H 102 H 104 H Respiratory Rate 28 H Blood Pressure 112/61 109/59 L Pulse Oximetry 98 Oxygen Delivery Fraction of Inspired Oxygen 10/01/24 04:23 10/01/24 04:35 10/01/24 04:45 Temperature Pulse Rate 104 H 101 H 105 H Respiratory Rate 28 H Blood Pressure 109/59 L 106/66 Pulse Oximetry 97 Oxygen Delivery Mechanical Ventilation Fraction of Inspired Oxygen 85 10/01/24 05:31 10/01/24 05:31 10/01/24 06:00 Temperature Pulse Rate 107 H 107 H 106 H Respiratory Rate 28 H 28 H 28 H Blood Pressure Pulse Oximetry Oxygen Delivery Fraction of Inspired Oxygen 10/01/24 06:00 10/01/24 06:00 10/01/24 06:00 Temperature Pulse Rate 106 H 105 H 106 H Respiratory Rate 28 H 28 H Blood Pressure 108/58 L Pulse Oximetry Oxygen Delivery Fraction of Inspired Oxygen 10/01/24 06:00 10/01/24 06:00 10/01/24 06:22 Temperature 37.8 C H Pulse Rate 106 H 100 106 H Respiratory Rate 28 H 28 H Blood Pressure 108/68 108/57 L Pulse Oximetry 95 96 Oxygen Delivery Fraction of Inspired Oxygen 10/01/24 06:45 10/01/24 07:35 10/01/24 07:35 Temperature Pulse Rate 106 H 107 H 107 H Respiratory Rate 28 H Blood Pressure 108/51 L Pulse Oximetry 96 96 Oxygen Delivery Mechanical Ventilation Fraction of Inspired Oxygen 85 10/01/24 07:35 10/01/24 07:57 10/01/24 07:58 Temperature Pulse Rate 107 H 106 H 106 H Respiratory Rate 28 H 28 H Blood Pressure 98/55 L 98/55 L Pulse Oximetry Oxygen Delivery Fraction of Inspired Oxygen 10/01/24 08:00 10/01/24 08:00 10/01/24 08:00 Temperature Pulse Rate 105 H 105 H 105 H Respiratory Rate 28 H 28 H Blood Pressure 99/52 L Pulse Oximetry Oxygen Delivery Fraction of Inspired Oxygen 10/01/24 08:00 10/01/24 08:00 10/01/24 08:00 Temperature 37.7 C H Pulse Rate 103 H 102 H Respiratory Rate 28 H 30 H Blood Pressure 98/53 L Pulse Oximetry 97 97 Oxygen Delivery Mechanical Ventilation Fraction of Inspired Oxygen 85 85 10/01/24 08:00 10/01/24 08:02 10/01/24 08:16 Temperature Pulse Rate 105 H 105 H 103 H Respiratory Rate 28 H 28 H Blood Pressure 99/52 L 95/53 L Pulse Oximetry Oxygen Delivery Fraction of Inspired Oxygen 10/01/24 08:32 10/01/24 08:45 10/01/24 08:59 Temperature Pulse Rate 104 H 103 H 102 H Respiratory Rate 30 H 30 H 30 H Blood Pressure 104/60 96/54 L Pulse Oximetry Oxygen Delivery Fraction of Inspired Oxygen 10/01/24 08:59 10/01/24 09:00 10/01/24 09:15 Temperature Pulse Rate 102 H 102 H 101 H Respiratory Rate 30 H 30 H 30 H Blood Pressure 102/55 L 105/54 L Pulse Oximetry Oxygen Delivery Fraction of Inspired Oxygen 10/01/24 09:27 10/01/24 09:30 10/01/24 09:45 Temperature Pulse Rate 101 H 100 99 Respiratory Rate 30 H 30 H 30 H Blood Pressure 101/60 102/56 L Pulse Oximetry 96 Oxygen Delivery Fraction of Inspired Oxygen 10/01/24 10:00 10/01/24 10:00 10/01/24 10:00 Temperature Pulse Rate 97 96 96 Respiratory Rate 30 H 30 H 30 H Blood Pressure 94/56 L Pulse Oximetry Oxygen Delivery Fraction of Inspired Oxygen 10/01/24 10:00 10/01/24 10:00 10/01/24 10:00 Temperature 37.6 C Pulse Rate 96 96 97 Respiratory Rate 30 H Blood Pressure 100/57 L 100/57 L Pulse Oximetry 96 Oxygen Delivery Fraction of Inspired Oxygen 10/01/24 10:15 10/01/24 10:30 10/01/24 10:54 Temperature Pulse Rate 102 H 97 97 Respiratory Rate 30 H 30 H Blood Pressure 100/58 L 100/57 L Pulse Oximetry 96 Oxygen Delivery Mechanical Ventilation Fraction of Inspired Oxygen 85 10/01/24 10:54 10/01/24 11:53 10/01/24 11:54 Temperature Pulse Rate 97 97 Respiratory Rate 30 H 30 H Blood Pressure Pulse Oximetry 96 96 Oxygen Delivery Mechanical Ventilation Fraction of Inspired Oxygen 85 85 10/01/24 12:00 10/01/24 12:00 10/01/24 12:00 Temperature Pulse Rate 101 H 101 H 101 H Respiratory Rate 30 H 30 H Blood Pressure 110/66 Pulse Oximetry Oxygen Delivery Fraction of Inspired Oxygen Intake/Output Intake/Output: Intake & Output 09/28/24 09/29/24 09/30/24 10/01/24 23:59 23:59 23:59 23:59 Intake Total 2549.4 2657.2 2808.9 1332.3 Output Total 2037 5 37 15 Balance 512.4 2652.2 2771.9 1317.3 Meds/Results Medications: Active Medications Generic Name Dose Route Start Last Admin Trade Name Freq PRN Reason Stop Dose Admin Acetaminophen 650 mg 09/20/24 19:03 09/29/24 06:51 Acetaminophen Elixir 325 Mg/10.15 Ml Udc PO 650 mg Q4H PRN Administration Mild Pain (1-3) or Fever Albuterol/Ipratropium 3 ml 09/22/24 08:26 09/29/24 02:46 Ipratropium 0.5 Mg/Albuterol Sulfate 2.5 Mg Ampul.Neb 3 Ml INHALATION 3 ml Q6HRT PRN Administration wheezing Dextrose 12.5 gm 09/20/24 03:19 Dextrose 50% 25 Gm/50 Ml Syringe IV PUSH PRN PRN Hypoglycemia Protocol Enoxaparin Sodium 30 mg 09/27/24 09:00 10/01/24 08:13 Enoxaparin 30 Mg/0.3 Ml Syringe SUB-Q Not Given DAILY TOMY Epoprostenol Sodium 1 mg 09/29/24 08:56 10/01/24 07:35 Epoprostenol Sodium 0.5 Mg Vial INHALATION 1 mg PRN PRN Administration Titrate Glucagon 1 mg 09/20/24 03:19 Glucagon For Inj 1 Mg Vial IM PRN PRN Hypoglycemia Protocol Glucose 15 gm 09/20/24 03:19 Glucose Oral Gel 15 Gm Of Glucse In 37.5 Gm Tube PO PRN PRN Hypoglycemia Protocol Dextrose 1,000 mls @ 100 mls/hr 09/20/24 03:19 Dextrose 5% 1,000 Ml IVPB PRN PRN Hypoglycemia Protocol Midazolam HCl 100 mg in 100 mls @ 5 mls/hr 09/20/24 22:10 10/01/24 12:00 Versed 100 Mg/Ns 100 Ml IV CONT 5 mg/hr .Q20H TOMY 5 mls/hr Titration Protocol 5 MG/HR Albumin Human 50 mls @ 999 mls/hr 09/26/24 12:07 09/28/24 10:41 Albutein IVPB 10/26/24 12:06 999 mls/hr Q10M PRN Administration HYPOTENSION Propofol 100 mls @ 14.574 mls/hr 09/27/24 10:15 10/01/24 12:00 Diprivan IV CONT 35 mcg/kg/min .Q6H52M TOMY 14.57 mls/hr Titration Protocol 35 MCG/KG/MIN Norepinephrine Bitartrate 8 mg in 250 mls @ 0 mls/hr 09/27/24 10:15 10/01/24 12:00 Levophed 8 Mg/D5w 250 Ml IV CONT 2 mcg/min .Q0M TOMY 3.75 mls/hr Titration Protocol 0 MCG/MIN Meropenem 1 gm in 100 mls @ 200 mls/hr 09/27/24 18:00 09/30/24 19:18 IVPB Infused Q24H TOMY Infusion Cisatracurium Besylate 200 mg/ 100 mls @ 1.041 mls/hr 09/28/24 02:05 10/01/24 10:30 Sodium Chloride IV CONT Infused .Q72H TOMY Titration Protocol 0.5 MCG/KG/MIN Insulin Human Regular 100 100 mls @ 1 mls/hr 09/28/24 08:30 10/01/24 13:00 units/ Sodium Chloride IV CONT 1 units/hr .Q24H TOMY 1 mls/hr Titration Protocol 1 UNITS/HR Linezolid 600 mg in 300 mls @ 300 mls/hr 09/29/24 02:00 10/01/24 04:26 Zyvox IVPB Infused Q12H TOMY Infusion Micafungin Sodium 100 mg/ 100 mls @ 100 mls/hr 09/30/24 09:00 10/01/24 09:18 Sodium Chloride IVPB Infused DAILY TOMY Infusion Insulin Aspart 4 - 8 units 09/21/24 08:40 09/28/24 04:43 Insulin Aspart (*Bkc) 100 Units/Ml SUB-Q 8 units Q4H [facility] Administration Protocol Insulin Glargine 40 units 09/22/24 09:00 09/27/24 09:10 Insulin Glargine (*Bkc) 100 Units/Ml SUB-Q 40 units QAM TOMY Administration Levothyroxine Sodium 100 mcg 09/21/24 06:30 10/01/24 06:24 Levothyroxine Sodium 100 Mcg Tablet FEED TUBE Not Given DAILY@0630 [facility] Miscellaneous Information 0 each 09/29/24 00:01 10/01/24 00:04 Ivs In Normal Saline XX 10/29/24 00:00 Not Given CLARIFY [facility] Multi-Ingred Cream/Lotion/Oil/Oint 1 applic 09/20/24 21:00 10/01/24 08:05 Mineral Oil/White Petrolatum Ointment EACH EYE 1 applic Q12HR TOMY Administration Pantoprazole Sodium 40 mg 09/20/24 09:00 10/01/24 08:12 Pantoprazole Sodium Iv 40 Mg Vial IV PUSH 40 mg QAM TOMY Administration Sodium Chloride 10 ml 09/20/24 14:00 10/01/24 06:24 Central Line Flush IV PUSH 10 ml Q8HR TOMY Administration Sodium Chloride 20 ml 09/20/24 06:40 Central Line Flush IV PUSH PRN PRN after blood draws Radiology Results: ITS Impressions Chest CTA 09/20/24 05:30 Impression: Bilateral multifocal pneumonia, most extensively involving the lower lobes. No pulmonary embolus seen. Abdomen X-Ray 09/20/24 05:35 Impression: NG tube in satisfactory position. Abdomen Ultrasound 09/22/24 15:02 IMPRESSION: 1: Gallbladder wall thickening, nonspecific. No evidence for gallstones. 2: Fatty infiltration of the liver. Renal Ultrasound 09/22/24 15:14 IMPRESSION: 1. Normal kidneys without hydronephrosis. Head CT 09/29/24 11:59 IMPRESSION: 1. Normal brain. Chest/Abdomen/Pelvis CTA 09/29/24 12:00 IMPRESSION: 1. No evident pulmonary embolism. Sensitivity decreased in the segmental and subsegmental pulmonary arteries due to combination of respiratory motion and streak artifact. 2. Significant interval progression in diffuse bilateral lung disease with interval development of numerous cavitary lesions throughout both lungs consistent with cavitary pneumonia and ARDS. 3. Left chest tube in the left major fissure. No pneumothorax or pleural effusion. 4. Very small amount of ascites in the pelvis. No abscess or other acute intra-abdominal/pelvic process. Chest X-Ray 10/01/24 06:34 Impression: Extensive bilateral airspace disease unchanged, compatible extensive bilateral pneumonia. No pneumothorax. Stable support tubes. Labs Labs: Laboratory Results - last 24 hr 09/30/24 09/30/24 09/30/24 14:18 15:18 16:36 WBC RBC Hgb Hct MCV MCH MCHC RDW Plt Count MPV Immature Gran % (Auto) Neut % (Auto) Lymph % (Auto) [place] % (Auto) Eos % (Auto) Baso % (Auto) Lymph # (Auto) [place] # (Auto) Eos # (Auto) Baso # (Auto) Abs Immat Gran (auto) Absolute Neuts (auto) Absolute Nucleated RBC Total Counted Neutrophils % (Manual) Band Neutrophils % Lymphocytes % (Manual) Monocytes % (Manual) Nucleated RBC % Abs Neuts (Manual) Abs Lymphs (Manual) Abs Monocytes (Manual) Smudge Cells Platelet Estimate Anisocytosis Schistocytes PT INR APTT Puncture Site ABG pH ABG pCO2 ABG pO2 ABG PO2/FiO2 Ratio ABG HCO3 ABG O2 Saturation ABG O2 Content ABG Base Excess A-a Gradient Oxyhemoglobin Carboxyhemoglobin Methemoglobin Reduced Hemoglobin Total Hemoglobin O2 Delivery Device O2 Liters/Min Minute Volume Vent Rate Vent Mode FiO2 Tidal Volume PEEP Peak Inspir Pressure Pressure Support Sodium Potassium Chloride Carbon Dioxide Anion Gap BUN Creatinine Estim Creat Clear Calc Estimated GFR Glucose POC Capillary Glucose 225 H 229 H 246 H Hemoglobin A1c Lactic Acid Calcium Phosphorus Magnesium Total Bilirubin Direct Bilirubin Indirect Bilirubin GGT AST ALT Alkaline Phosphatase Total Creatine Kinase CK-MB (CK-2) Troponin I Total Protein Albumin Triglycerides Amylase Lipase SARS-CoV-2 RNA (RT-PCR) 09/30/24 09/30/24 09/30/24 17:05 17:05 17:05 WBC 51.2 H* RBC 3.00 L Hgb 7.9 L Hct 22.8 L MCV 76.0 L MCH 26.3 D MCHC 34.6 RDW 19.9 H Plt Count 268 MPV 12.0 H Immature Gran % (Auto) Neut % (Auto) Lymph % (Auto) [place] % (Auto) Eos % (Auto) Baso % (Auto) Lymph # (Auto) [place] # (Auto) Eos # (Auto) Baso # (Auto) Abs Immat Gran (auto) Absolute Neuts (auto) Absolute Nucleated RBC Total Counted Neutrophils % (Manual) Band Neutrophils % Lymphocytes % (Manual) Monocytes % (Manual) Nucleated RBC % Abs Neuts (Manual) Abs Lymphs (Manual) Abs Monocytes (Manual) Smudge Cells Platelet Estimate Anisocytosis Schistocytes PT 15.3 H INR 1.2 APTT 34.0 Puncture Site ABG pH ABG pCO2 ABG pO2 ABG PO2/FiO2 Ratio ABG HCO3 ABG O2 Saturation ABG O2 Content ABG Base Excess A-a Gradient Oxyhemoglobin Carboxyhemoglobin Methemoglobin Reduced Hemoglobin Total Hemoglobin O2 Delivery Device O2 Liters/Min Minute Volume Vent Rate Vent Mode FiO2 Tidal Volume PEEP Peak Inspir Pressure Pressure Support Sodium 129 L Potassium 5.3 H Chloride 93 L Carbon Dioxide 22 Anion Gap 14 H BUN 107 H Creatinine 3.76 H Estim Creat Clear Calc 17 Estimated GFR 13 L Glucose 225 H POC Capillary Glucose Hemoglobin A1c 11.1 H Lactic Acid 1.3 Calcium 8.7 Phosphorus 7.6 H Magnesium 2.6 H Total Bilirubin 0.7 0.7 Direct Bilirubin 0.0 Indirect Bilirubin GGT 78 H AST 153 H 154 H ALT 48 H Alkaline Phosphatase Total Creatine Kinase CK-MB (CK-2) Troponin I Total Protein Albumin Triglycerides Amylase Lipase SARS-CoV-2 RNA (RT-PCR) 09/30/24 09/30/24 09/30/24 17:05 17:05 17:05 WBC RBC Hgb Hct MCV MCH MCHC RDW Plt Count MPV Immature Gran % (Auto) Neut % (Auto) Lymph % (Auto) [place] % (Auto) Eos % (Auto) Baso % (Auto) Lymph # (Auto) [place] # (Auto) Eos # (Auto) Baso # (Auto) Abs Immat Gran (auto) Absolute Neuts (auto) Absolute Nucleated RBC Total Counted Neutrophils % (Manual) Band Neutrophils % Lymphocytes % (Manual) Monocytes % (Manual) Nucleated RBC % Abs Neuts (Manual) Abs Lymphs (Manual) Abs Monocytes (Manual) Smudge Cells Platelet Estimate Anisocytosis Schistocytes PT INR APTT Puncture Site ABG pH ABG pCO2 ABG pO2 ABG PO2/FiO2 Ratio ABG HCO3 ABG O2 Saturation ABG O2 Content ABG Base Excess A-a Gradient Oxyhemoglobin Carboxyhemoglobin Methemoglobin Reduced Hemoglobin Total Hemoglobin O2 Delivery Device O2 Liters/Min Minute Volume Vent Rate Vent Mode FiO2 Tidal Volume PEEP Peak Inspir Pressure Pressure Support Sodium Potassium Chloride Carbon Dioxide Anion Gap BUN Creatinine Estim Creat Clear Calc Estimated GFR Glucose POC Capillary Glucose Hemoglobin A1c Lactic Acid Calcium Phosphorus Magnesium Total Bilirubin Direct Bilirubin Indirect Bilirubin GGT AST ALT 49 H Alkaline Phosphatase 561 H 572 H Total Creatine Kinase 89 CK-MB (CK-2) Cancelled Troponin I 0.059 H* Total Protein 6.0 L 6.0 L Albumin 2.5 L Triglycerides Amylase Lipase SARS-CoV-2 RNA (RT-PCR) 09/30/24 09/30/24 09/30/24 17:05 17:10 18:01 WBC RBC Hgb Hct MCV MCH MCHC RDW Plt Count MPV Immature Gran % (Auto) Neut % (Auto) Lymph % (Auto) [place] % (Auto) Eos % (Auto) Baso % (Auto) Lymph # (Auto) [place] # (Auto) Eos # (Auto) Baso # (Auto) Abs Immat Gran (auto) Absolute Neuts (auto) Absolute Nucleated RBC Total Counted Neutrophils % (Manual) Band Neutrophils % Lymphocytes % (Manual) Monocytes % (Manual) Nucleated RBC % Abs Neuts (Manual) Abs Lymphs (Manual) Abs Monocytes (Manual) Smudge Cells Platelet Estimate Anisocytosis Schistocytes PT INR APTT Puncture Site ABG pH ABG pCO2 ABG pO2 ABG PO2/FiO2 Ratio ABG HCO3 ABG O2 Saturation ABG O2 Content ABG Base Excess A-a Gradient Oxyhemoglobin Carboxyhemoglobin Methemoglobin Reduced Hemoglobin Total Hemoglobin O2 Delivery Device O2 Liters/Min Minute Volume Vent Rate Vent Mode FiO2 Tidal Volume PEEP Peak Inspir Pressure Pressure Support Sodium Potassium Chloride Carbon Dioxide Anion Gap BUN Creatinine Estim Creat Clear Calc Estimated GFR Glucose POC Capillary Glucose 221 H 227 H Hemoglobin A1c Lactic Acid Calcium Phosphorus Magnesium Total Bilirubin Direct Bilirubin Indirect Bilirubin GGT AST ALT Alkaline Phosphatase Total Creatine Kinase CK-MB (CK-2) Troponin I Total Protein Albumin 2.5 L Triglycerides Amylase 276 H Lipase 651 H SARS-CoV-2 RNA (RT-PCR) Negative 09/30/24 09/30/24 09/30/24 19:01 20:01 20:58 WBC RBC Hgb Hct MCV MCH MCHC RDW Plt Count MPV Immature Gran % (Auto) Neut % (Auto) Lymph % (Auto) [place] % (Auto) Eos % (Auto) Baso % (Auto) Lymph # (Auto) [place] # (Auto) Eos # (Auto) Baso # (Auto) Abs Immat Gran (auto) Absolute Neuts (auto) Absolute Nucleated RBC Total Counted Neutrophils % (Manual) Band Neutrophils % Lymphocytes % (Manual) Monocytes % (Manual) Nucleated RBC % Abs Neuts (Manual) Abs Lymphs (Manual) Abs Monocytes (Manual) Smudge Cells Platelet Estimate Anisocytosis Schistocytes PT INR APTT Puncture Site ABG pH ABG pCO2 ABG pO2 ABG PO2/FiO2 Ratio ABG HCO3 ABG O2 Saturation ABG O2 Content ABG Base Excess A-a Gradient Oxyhemoglobin Carboxyhemoglobin Methemoglobin Reduced Hemoglobin Total Hemoglobin O2 Delivery Device O2 Liters/Min Minute Volume Vent Rate Vent Mode FiO2 Tidal Volume PEEP Peak Inspir Pressure Pressure Support Sodium Potassium Chloride Carbon Dioxide Anion Gap BUN Creatinine Estim Creat Clear Calc Estimated GFR Glucose POC Capillary Glucose 222 H 246 H 251 H Hemoglobin A1c Lactic Acid Calcium Phosphorus Magnesium Total Bilirubin Direct Bilirubin Indirect Bilirubin GGT AST ALT Alkaline Phosphatase Total Creatine Kinase CK-MB (CK-2) Troponin I Total Protein Albumin Triglycerides Amylase Lipase SARS-CoV-2 RNA (RT-PCR) 09/30/24 09/30/24 10/01/24 22:34 23:07 00:13 WBC 48.5 H RBC 2.83 L Hgb 7.5 L Hct 21.3 L MCV 75.3 L MCH 26.5 MCHC 35.2 RDW 19.7 H Plt Count 263 MPV 11.4 H Immature Gran % (Auto) Neut % (Auto) Lymph % (Auto) [place] % (Auto) Eos % (Auto) Baso % (Auto) Lymph # (Auto) [place] # (Auto) Eos # (Auto) Baso # (Auto) Abs Immat Gran (auto) Absolute Neuts (auto) Absolute Nucleated RBC Total Counted Neutrophils % (Manual) Band Neutrophils % Lymphocytes % (Manual) Monocytes % (Manual) Nucleated RBC % Abs Neuts (Manual) Abs Lymphs (Manual) Abs Monocytes (Manual) Smudge Cells Platelet Estimate Anisocytosis Schistocytes PT 15.1 H INR 1.1 APTT 32.3 Puncture Site ABG pH ABG pCO2 ABG pO2 ABG PO2/FiO2 Ratio ABG HCO3 ABG O2 Saturation ABG O2 Content ABG Base Excess A-a Gradient Oxyhemoglobin Carboxyhemoglobin Methemoglobin Reduced Hemoglobin Total Hemoglobin O2 Delivery Device O2 Liters/Min Minute Volume Vent Rate Vent Mode FiO2 Tidal Volume PEEP Peak Inspir Pressure Pressure Support Sodium 130 L Potassium 4.9 Chloride 93 L Carbon Dioxide 21 L Anion Gap 16 H BUN 116 H Creatinine 4.41 H Estim Creat Clear Calc 15 Estimated GFR 11 L Glucose 233 H POC Capillary Glucose 251 H 200 H Hemoglobin A1c Lactic Acid 1.4 Calcium 8.4 Phosphorus 8.2 H Magnesium 2.7 H Total Bilirubin 0.6 Direct Bilirubin 0.0 Indirect Bilirubin GGT 78 H AST 139 H ALT 44 H Alkaline Phosphatase 516 H Total Creatine Kinase CK-MB (CK-2) Troponin I Total Protein 6.0 L Albumin 2.4 L Triglycerides Amylase 271 H Lipase 622 H SARS-CoV-2 RNA (RT-PCR) 10/01/24 10/01/24 10/01/24 01:02 01:06 02:10 WBC RBC Hgb Hct MCV MCH MCHC RDW Plt Count MPV Immature Gran % (Auto) Neut % (Auto) Lymph % (Auto) [place] % (Auto) Eos % (Auto) Baso % (Auto) Lymph # (Auto) [place] # (Auto) Eos # (Auto) Baso # (Auto) Abs Immat Gran (auto) Absolute Neuts (auto) Absolute Nucleated RBC Total Counted Neutrophils % (Manual) Band Neutrophils % Lymphocytes % (Manual) Monocytes % (Manual) Nucleated RBC % Abs Neuts (Manual) Abs Lymphs (Manual) Abs Monocytes (Manual) Smudge Cells Platelet Estimate Anisocytosis Schistocytes PT INR APTT Puncture Site Left radial ABG pH 7.261 L* ABG pCO2 49.5 H ABG pO2 107.4 H ABG PO2/FiO2 Ratio 1.26 ABG HCO3 21.8 L ABG O2 Saturation 97.2 ABG O2 Content 10.3 L ABG Base Excess -5.0 A-a Gradient 447.3 Oxyhemoglobin 97.3 Carboxyhemoglobin Methemoglobin Reduced Hemoglobin Total Hemoglobin 7.4 L* O2 Delivery Device Ventilator O2 Liters/Min Not Reportable Minute Volume Not Reportable Vent Rate 28 Vent Mode Cmv FiO2 85 Tidal Volume 370 PEEP 12 Peak Inspir Pressure Not Reportable Pressure Support Not Reportable Sodium Potassium Chloride Carbon Dioxide Anion [place] Creatinine Estim Creat Clear Calc Estimated GFR Glucose POC Capillary Glucose 232 H 221 H Hemoglobin A1c Lactic Acid Calcium Phosphorus Magnesium Total Bilirubin Direct Bilirubin Indirect Bilirubin GGT AST ALT Alkaline Phosphatase Total Creatine Kinase CK-MB (CK-2) Troponin I Total Protein Albumin Triglycerides Amylase Lipase SARS-CoV-2 RNA (RT-PCR) 10/01/24 10/01/24 10/01/24 03:10 04:19 04:37 WBC RBC Hgb Hct MCV MCH MCHC RDW Plt Count MPV Immature Gran % (Auto) Neut % (Auto) Lymph % (Auto) [place] % (Auto) Eos % (Auto) Baso % (Auto) Lymph # (Auto) [place] # (Auto) Eos # (Auto) Baso # (Auto) Abs Immat Gran (auto) Absolute Neuts (auto) Absolute Nucleated RBC Total Counted Neutrophils % (Manual) Band Neutrophils % Lymphocytes % (Manual) Monocytes % (Manual) Nucleated RBC % Abs Neuts (Manual) Abs Lymphs (Manual) Abs Monocytes (Manual) Smudge Cells Platelet Estimate Anisocytosis Schistocytes PT INR APTT Puncture Site Right radial ABG pH 7.248 L* ABG pCO2 49.8 H ABG pO2 127.5 H ABG PO2/FiO2 Ratio 1.50 ABG HCO3 21.3 L ABG O2 Saturation 98.0 ABG O2 Content 10.2 L ABG Base Excess -5.7 A-a Gradient 426.9 Oxyhemoglobin 96.9 Carboxyhemoglobin 1.0 Methemoglobin 0.3 Reduced Hemoglobin 1.8 Total Hemoglobin 7.3 L* O2 Delivery Device Ventilator O2 Liters/Min Not Reportable Minute Volume Not Reportable Vent Rate 28 Vent Mode Cmv FiO2 85 Tidal Volume 370 PEEP 12 Peak Inspir Pressure Not Reportable Pressure Support Not Reportable Sodium Potassium Chloride Carbon Dioxide Anion Gap BUN Creatinine Estim Creat Clear Calc Estimated GFR Glucose POC Capillary Glucose 293 H 354 H Hemoglobin A1c Lactic Acid Calcium Phosphorus Magnesium Total Bilirubin Direct Bilirubin Indirect Bilirubin GGT AST ALT Alkaline Phosphatase Total Creatine Kinase CK-MB (CK-2) Troponin I Total Protein Albumin Triglycerides Amylase Lipase SARS-CoV-2 RNA (RT-PCR) 10/01/24 10/01/24 10/01/24 05:12 06:41 07:54 WBC 48.0 H RBC 2.83 L Hgb 7.4 L Hct 21.1 L MCV 74.6 L MCH 26.1 MCHC 35.1 RDW 20.0 H Plt Count 277 MPV 11.2 H Immature Gran % (Auto) Not Reportable Neut % (Auto) Not Reportable Lymph % (Auto) Not Reportable [place] % (Auto) Not Reportable Eos % (Auto) Not Reportable Baso % (Auto) Not Reportable Lymph # (Auto) Not Reportable [place] # (Auto) Not Reportable Eos # (Auto) Not Reportable Baso # (Auto) Not Reportable Abs Immat Gran (auto) Not Reportable Absolute Neuts (auto) Not Reportable Absolute Nucleated RBC Not Reportable Total Counted 100 Neutrophils % (Manual) 92 H Band Neutrophils % 5 Lymphocytes % (Manual) 1.0 L Monocytes % (Manual) 2 L Nucleated RBC % Not Reportable Abs Neuts (Manual) 46.56 H Abs Lymphs (Manual) 0.48 L Abs Monocytes (Manual) 0.96 H Smudge Cells Present Platelet Estimate Slightly increased Anisocytosis 1+ Schistocytes None seen PT 15.3 H INR 1.2 APTT 32.1 Puncture Site ABG pH ABG pCO2 ABG pO2 ABG PO2/FiO2 Ratio ABG HCO3 ABG O2 Saturation ABG O2 Content ABG Base Excess A-a Gradient Oxyhemoglobin Carboxyhemoglobin Methemoglobin Reduced Hemoglobin Total Hemoglobin O2 Delivery Device O2 Liters/Min Minute Volume Vent Rate Vent Mode FiO2 Tidal Volume PEEP Peak Inspir Pressure Pressure Support Sodium 127 L Potassium 4.8 Chloride 92 L Carbon Dioxide 19 L Anion Gap 16 H BUN 124 H Creatinine 4.58 H Estim Creat Clear Calc 14 Estimated GFR 11 L Glucose 309 H POC Capillary Glucose 235 H 211 H Hemoglobin A1c Lactic Acid 1.5 Calcium 8.3 L Phosphorus 9.0 H Magnesium 2.7 H Total Bilirubin 0.6 Direct Bilirubin 0.0 Indirect Bilirubin 0.1 GGT 77 H AST 125 H ALT 40 H Alkaline Phosphatase 510 H Total Creatine Kinase CK-MB (CK-2) Troponin I Total Protein 6.0 L Albumin 2.4 L Triglycerides Amylase 281 H Lipase 605 H SARS-CoV-2 RNA (RT-PCR) 10/01/24 10/01/24 10/01/24 08:51 10:01 10:23 WBC RBC Hgb Hct MCV MCH MCHC RDW Plt Count MPV Immature Gran % (Auto) Neut % (Auto) Lymph % (Auto) [place] % (Auto) Eos % (Auto) Baso % (Auto) Lymph # (Auto) [place] # (Auto) Eos # (Auto) Baso # (Auto) Abs Immat Gran (auto) Absolute Neuts (auto) Absolute Nucleated RBC Total Counted Neutrophils % (Manual) Band Neutrophils % Lymphocytes % (Manual) Monocytes % (Manual) Nucleated RBC % Abs Neuts (Manual) Abs Lymphs (Manual) Abs Monocytes (Manual) Smudge Cells Platelet Estimate Anisocytosis Schistocytes PT 14.9 H INR 1.1 APTT 29.6 Puncture Site ABG pH ABG pCO2 ABG pO2 ABG PO2/FiO2 Ratio ABG HCO3 ABG O2 Saturation ABG O2 Content ABG Base Excess A-a Gradient Oxyhemoglobin Carboxyhemoglobin Methemoglobin Reduced Hemoglobin Total Hemoglobin O2 Delivery Device O2 Liters/Min Minute Volume Vent Rate Vent Mode FiO2 Tidal Volume PEEP Peak Inspir Pressure Pressure Support Sodium Potassium Chloride Carbon Dioxide Anion Gap BUN Creatinine Estim Creat Clear Calc Estimated GFR Glucose POC Capillary Glucose 186 H 176 H Hemoglobin A1c Lactic Acid Calcium Phosphorus Magnesium Total Bilirubin Direct Bilirubin Indirect Bilirubin GGT AST ALT Alkaline Phosphatase Total Creatine Kinase CK-MB (CK-2) Troponin I Total Protein Albumin Triglycerides Amylase Lipase SARS-CoV-2 RNA (RT-PCR) 10/01/24 10/01/24 10/01/24 10:24 10:52 12:08 WBC 43.8 H RBC 2.68 L Hgb 7.0 L Hct 20.0 L* MCV 74.6 L MCH 26.1 MCHC 35.0 RDW 19.9 H Plt Count 290 MPV 11.6 H Immature Gran % (Auto) Neut % (Auto) Lymph % (Auto) [place] % (Auto) Eos % (Auto) Baso % (Auto) Lymph # (Auto) [place] # (Auto) Eos # (Auto) Baso # (Auto) Abs Immat Gran (auto) Absolute Neuts (auto) Absolute Nucleated RBC Total Counted Neutrophils % (Manual) Band Neutrophils % Lymphocytes % (Manual) Monocytes % (Manual) Nucleated RBC % Abs Neuts (Manual) Abs Lymphs (Manual) Abs Monocytes (Manual) Smudge Cells Platelet Estimate Anisocytosis Schistocytes PT INR APTT Puncture Site ABG pH ABG pCO2 ABG pO2 ABG PO2/FiO2 Ratio ABG HCO3 ABG O2 Saturation ABG O2 Content ABG Base Excess A-a Gradient Oxyhemoglobin Carboxyhemoglobin Methemoglobin Reduced Hemoglobin Total Hemoglobin O2 Delivery Device O2 Liters/Min Minute Volume Vent Rate Vent Mode FiO2 Tidal Volume PEEP Peak Inspir Pressure Pressure Support Sodium 129 L Potassium 5.3 H Chloride 93 L Carbon Dioxide 20 L Anion Gap 16 H BUN 130 H Creatinine 4.85 H Estim Creat Clear Calc 14 Estimated GFR 10 L Glucose 169 H POC Capillary Glucose 170 H 176 H Hemoglobin A1c Lactic Acid 1.4 Calcium 8.3 L Phosphorus 9.5 H Magnesium 2.8 H Total Bilirubin 0.5 Direct Bilirubin 0.0 Indirect Bilirubin 0.0 GGT AST 113 H ALT 38 H Alkaline Phosphatase 473 H Total Creatine Kinase CK-MB (CK-2) Troponin I Total Protein 6.0 L Albumin 2.5 L Triglycerides 1195 H Amylase 313 H Lipase 598 H SARS-CoV-2 RNA (RT-PCR) 10/01/24 13:10 WBC RBC Hgb Hct MCV MCH MCHC RDW Plt Count MPV Immature Gran % (Auto) Neut % (Auto) Lymph % (Auto) [place] % (Auto) Eos % (Auto) Baso % (Auto) Lymph # (Auto) [place] # (Auto) Eos # (Auto) Baso # (Auto) Abs Immat Gran (auto) Absolute Neuts (auto) Absolute Nucleated RBC Total Counted Neutrophils % (Manual) Band Neutrophils % Lymphocytes % (Manual) Monocytes % (Manual) Nucleated RBC % Abs Neuts (Manual) Abs Lymphs (Manual) Abs Monocytes (Manual) Smudge Cells Platelet Estimate Anisocytosis Schistocytes PT INR APTT Puncture Site ABG pH ABG pCO2 ABG pO2 ABG PO2/FiO2 Ratio ABG HCO3 ABG O2 Saturation ABG O2 Content ABG Base Excess A-a Gradient Oxyhemoglobin Carboxyhemoglobin Methemoglobin Reduced Hemoglobin Total Hemoglobin O2 Delivery Device O2 Liters/Min Minute Volume Vent Rate Vent Mode FiO2 Tidal Volume PEEP Peak Inspir Pressure Pressure Support Sodium Potassium Chloride Carbon Dioxide Anion Gap BUN Creatinine Estim Creat Clear Calc Estimated GFR Glucose POC Capillary Glucose 188 H Hemoglobin A1c Lactic Acid Calcium Phosphorus Magnesium Total Bilirubin Direct Bilirubin Indirect Bilirubin GGT AST ALT Alkaline Phosphatase Total Creatine Kinase CK-MB (CK-2) Troponin I Total Protein Albumin Triglycerides Amylase Lipase SARS-CoV-2 RNA (RT-PCR)
[2024-10-01] MEDS: HEPARIN SODIUM 5,000 UNITS/ML VIAL 19000 UNITS IV PUSH (13:53)
[2024-10-02 16:19] LABS: GGT 73 U/L (3-55)
== END 2024-10-01 14:31 | disposition expired | DRG 720 ==
LOC: ANHED 23:13 → ANHICU 09-20 04:04
PROVIDERS: Internal Medicine; Internal Medicine Nephrology; Admitting Provider Internal Medicine; Emergency Provider Emergency Medicine; Visit Provider Family Medicine
DX: A41.9 Sepsis, unspecified organism (principal); R65.21 Severe sepsis with septic shock; J10.00 Influenza due to other identified influenza virus with unspecified type of pneumonia; J80 Acute respiratory distress syndrome; E10.65 Type 1 diabetes mellitus with hyperglycemia; K72.00 Acute and subacute hepatic failure without coma; E06.3 Autoimmune thyroiditis; N17.9 Acute kidney failure, unspecified; D63.1 Anemia in chronic kidney disease; D69.6 Thrombocytopenia, unspecified; E03.9 Hypothyroidism, unspecified; B95.62 Methicillin resistant Staphylococcus aureus infection as the cause of diseases classified elsewhere; J95.859 Other complication of respirator [ventilator]; J93.83 Other pneumothorax; E87.21 Acute metabolic acidosis; E87.5 Hyperkalemia; F17.210 Nicotine dependence, cigarettes, uncomplicated; I73.00 Raynaud's syndrome without gangrene; Z91.148 Patient's other noncompliance with medication regimen for other reason; Z99.2 Dependence on renal dialysis
CPT/HCPCS: 36415; 36556; 36600; 70470; 71045; 71275; 74177; 76705; 76775; 80048; 80053; 80074; 80076; 80202; 80307; 80354; 81001; 81025; 81050; 82077; 82150; 82248; 82375; 82550; 82553; 82570; 82805; 82948; 82977; 83036; 83050; 83605; 83690; 83735; 84100; 84145; 84156; 84300; 84443; 84478; 84484; 84540; 85018; 85025; 85027; 85055; 85380; 85610; 85730; 85999; 86704; 86706; 87040; 87070; 87181; 87205; 87340; 87635; 87637; 87641; 93005; 93306; 94002; 94003; 94640; 96361; 96365; 96372; 96375; 99291; A9270; C1751; C1752; G0257; G0480; J0171; J0613; J0692; J1171; J1644; J1650; J1720; J1741; J1815; J1885; J1939; J1940; J2020; J2060; J2185; J2248; J2250; J2470; J2704; J3010; J3370; J3475; J7030; J7060; J7639; P9045; P9047; Q5105; Q9967